=== PATIENT | female | born 1985 | race Caucasian/White ===

== ENCOUNTER 2022-04-25 19:14 | Emergency (ER) | payer BC, SELFPAY ==
[2022-04-25] VITALS (8 sets, daily range): BP systolic 75–100; BP diastolic 60–68; PULSE 114–137; RESP 20; TEMP 37.8–38.3; O2SAT 95–99; BMI 24.9
[2022-04-25 20:45] LABS: PCR FLU A Negative PCR FLU A (Negative); PCR FLU B Negative PCR FLU B (Negative); PCR RSV Negative PCR RSV (Negative)
[2022-04-25 20:53] LABS: SARS PCR* Negative SARS-CoV-2 (Negative)
[2022-04-25 21:15] LABS: Appearance Urine Slightly Cloudy (Clear); Bilirubin Urine Negative (Negative); Blood Urine Trace-intact (Negative); Color Urine Yellow (Yellow); Glucose Urine Negative (Negative); Ketones Urine Trace (Negative); Leukocyte Esterase Urine 1+ (Negative); Nitrite Urine Positive (Negative); Protein Urine 2+ (Negative); Specific Gravity Urine 1.025 (1.000-1.030); Urobilinogen Urine 0.2 (0.2-1.0)
[2022-04-25 21:25] LABS: Bacteria Urine Many; RBC Urine 0-2 (0-2); Squamous Epithelial Cell Urine Few (None-Few); WBC Urine >100 (0-5)
--- NOTE | 2022-04-25 21:34 | CRLHL7_ITS ---
For Patients: As a result of the Century Cures Act, medical imaging exams and procedure reports are released immediately into your electronic medical record. You may view this report before your referring provider. If you have questions, please contact your health care provider. INDICATION: Sepsis, right flank pain. TECHNIQUE: CT abdomen and pelvis without contrast. COMPARISON: None. FINDINGS: Lower chest: Unremarkable. Liver: Normal in size and attenuation. No suspicious masses. Gallbladder and bile ducts: No stones or inflammation. No biliary dilatation. Pancreas: Unremarkable. No mass or inflammation. Spleen: Normal in size. No masses. Adrenal glands: Normal in size. No nodules. Kidneys: 9 millimeter right renal stone with chronic appearing patulous dilation of the superior and interpolar calices with cortical thinning. Addition 3 millimeter left superior pole nonobstructing stone. GI tract: Unremarkable. Normal in caliber. No sign of mass or inflammation. Normal appendix. Vasculature: Abdominal aorta is normal in caliber. Lymph nodes: No lymphadenopathy. Peritoneum/Abdominal Wall: Unremarkable. No sign of mass or infiltration. No free air or significant free fluid. Pelvis: Incidental 4.6 centimeter right ovarian cyst Bones: Unremarkable for age. IMPRESSION: Re-demonstration of patulous right superior and interpolar calices secondary to prior obstructing staghorn calculus. Lack of prior image does not allow for assessment of interval change. 3 millimeter left superior pole nonobstructing stone. Incidental 4.6 centimeter right ovarian cyst, not unexpected given age. No acute intra-abdominal/pelvic abnormality. Please note that all CT scans at this facility use dose modulation, iterative reconstruction, and/or weight-based dosing when appropriate to reduce radiation dose to as low as reasonably achievable. Dictated by Robby Scott MD @ 04/25/2022 11:32:01 PM (Electronically Signed)
--- NOTE | 2022-04-25 21:37 | ED_ITS ---
HPI - General Adult General Chief complaint: Headache/Migraine Stated complaint: Flu like symptoms Time Seen by Provider: 04/25/22 21:20 Source: patient and family Mode of arrival: ambulatory Limitations: no limitations History of Present Illness HPI narrative: 36-year-old female presents emergency department with feeling generally unwell for the past 3 days. Body aches, headache, no trauma nor injury. She tried taking Tylenol and 650 mg and ibuprofen 400 mg approximately 9 hours ago with no improvement in symptoms. She is also noticing sweats and chills and possibly rigors per her description. On specific questioning, she has not noted any urinary changes. No dysuria, no blood in her urine. No gynecological symptoms. On specific questioning, she does state that she has a little bit of right back pain which is different than usual for her as compared to the left. She has an extremely notable history of large right-sided kidney stones that caused significant damage. Per the description it sounds like she had stents and eventually nest tubes placed for severe hydronephrosis and was told that she has some damage as a result of this. She does not have restriction on meds or NSAIDs per her description but it does not sound like she has been following up with a software development coordinator or urologist since this episode a couple of years ago. It does sound like they started her on hydrochlorothiazide to help reduce her chance of further stones that does not sound like this is being monitored recently. She did note fever starting today. No trauma, no injury. No pertinent travel. No known sick contacts. Headache is most bothersome symptom at this time. She notes decreased fluid intake as well. Past medical history notable for the large kidney stones with subsequent management as described above. Surgically in addition to the right kidney surgery, never tubes and stents, she has also had an appendectomy, bilateral tubal ligation and abdominal plasty. Home medications include propranolol, Zoloft, hydrochlorothiazide. Allergies are to Benadryl which caused a racing heart and amoxicillin which caused a rash. ROS is notable for the generalized, musculoskeletal, neurological symptoms as above, otherwise denies times 12 systems. Related Data Home Medications Medication Instructions Recorded Confirmed Kidney medication 04/25/22 acetaminophen 325 mg tablet 325 mg PO Q4-6H PRN 04/25/22 04/25/22 (Tylenol) ibuprofen 200 mg tablet (Advil) 200 mg PO Q4-6H PRN 04/25/22 04/25/22 propranolol 80 mg capsule,24 80 mg PO DAILY 04/25/22 04/25/22 hr,extended release sertraline 100 mg tablet 100 mg PO Q24H 04/25/22 04/25/22 Previous Rx's Medication Instructions Recorded cephalexin 500 mg capsule 500 mg PO TID 10 days #30 caps 04/26/22 Allergies Allergy/AdvReac Type Severity Reaction Status Date / Time diphenhydramine Allergy Severe Anaphylaxis Verified 04/25/22 20:08 [From Benadryl] amoxicillin Allergy Mild Rash Verified 04/25/22 20:08 [facility] Medical History Iron deficiency anemia Kidney infection Kidney stones Surgical History H/O bilateral salpingo-oophorectomy Hx of appendectomy Social History Smoking Status: Unknown if ever smoked Exam Const: Vital Signs, click to edit/add: Vital Signs - 24 hr 04/25/22 19:41 04/25/22 22:07 04/25/22 22:30 Temperature 100.9 F H Pulse Rate 137 H 124 H Pulse Rate [Left P ulse Oximeter] 133 H Respiratory Rate 20 Blood Pressure Blood Pressure [Ri ght Upper Arm] 100/68 Pulse Oximetry 99 97 96 Oxygen Delivery Me thod Room Air 04/25/22 22:31 04/25/22 23:25 04/25/22 23:27 Temperature 100.0 F H Pulse Rate 124 H 121 H 121 H Pulse Rate [Left P ulse Oximeter] Respiratory Rate Blood Pressure 92/60 98/60 Blood Pressure [Ri ght Upper Arm] Pulse Oximetry 95 97 98 Oxygen Delivery Me thod 04/26/22 00:54 04/25/22 23:56 04/25/22 23:57 Temperature 100.1 F H Pulse Rate 119 H 114 H Pulse Rate [Left P ulse Oximeter] 114 H Respiratory Rate 18 Blood Pressure 75/61 L Blood Pressure [Ri ght Upper Arm] 123/68 Pulse Oximetry 97 97 97 Oxygen Delivery Me thod Room Air 04/26/22 00:00 04/26/22 00:01 04/26/22 00:02 Temperature Pulse Rate 118 H 118 H 121 H Pulse Rate [Left P ulse Oximeter] Respiratory Rate Blood Pressure 101/59 L 94/60 Blood Pressure [Ri ght Upper Arm] Pulse Oximetry 98 97 97 Oxygen Delivery Me thod 04/26/22 00:15 04/26/22 00:30 04/26/22 00:31 Temperature Pulse Rate 113 H 107 H 104 H Pulse Rate [Left P ulse Oximeter] Respiratory Rate Blood Pressure 83/55 L Blood Pressure [Ri ght Upper Arm] Pulse Oximetry 97 98 97 Oxygen Delivery Me thod 04/26/22 00:35 04/26/22 00:36 04/26/22 00:59 Temperature Pulse Rate 110 H 109 H 106 H Pulse Rate [Left P ulse Oximeter] Respiratory Rate Blood Pressure 87/56 L Blood Pressure [Ri ght Upper Arm] Pulse Oximetry 98 98 97 Oxygen Delivery Me thod 04/26/22 01:00 04/26/22 01:01 04/26/22 01:40 Temperature Pulse Rate 107 H 109 H Pulse Rate [Left P ulse Oximeter] 99 Respiratory Rate 16 Blood Pressure 99/64 Blood Pressure [Ri ght Upper Arm] 101/55 L Pulse Oximetry 97 97 97 Oxygen Delivery Me thod Room Air 04/26/22 01:17 04/26/22 01:32 Temperature Pulse Rate 100 99 Pulse Rate [Left P ulse Oximeter] Respiratory Rate Blood Pressure 92/58 L 98/57 L Blood Pressure [Ri ght Upper Arm] Pulse Oximetry 96 96 Oxygen Delivery Me thod Documenting provider has reviewed patient's vital signs: yes General appearance: cooperative and well kempt Other: Appears acutely ill, good historian HENMT: Common normals: normocephalic Head and scalp: normocephalic Mouth: oral and palatal mucosa normal Throat: posterior oropharynx normal Eye: Common normals: conjunctivae normal and no scleral icterus Conjunctiva: conjunctiva(e) normal Neck & C-Spine: Common normals: full ROM, no lymphadenopathy and no meningeal signs Resp: Common normals: normal respiratory effort, no use of accessory muscles and clear to auscultation bilaterally Effort & inspection: able to speak in complete sentences Auscultation: clear to auscultation bilaterally Cardio: Common normals: regular rate, regular rhythm, S1 normal heart sound, S2 normal heart sound, no murmurs and peripheral pulses 2+ throughout Rate: regular rate Rhythm: regular rhythm Heart sounds: S1 normal and S2 normal Peripheral pulses: pulses 2+ throughout GI: Common normals: Normal to inspection, nondistended, normoactive bowel sounds present, soft to palpation, non-tender, no hepatosplenomegaly and no masses Palpation: soft and no hepatosplenomegaly Back & Pelvis: Common normals: thoracic and lumbar spine normal to inspection Other: Right-sided CVA tenderness noted Extremity: Common normals: normal to inspection, normal capillary refill and no pedal edema Neuro: Meningeal signs: no meningeal signs Speech: speech normal Motor exam: strength 5/5 throughout and no tremor noted Psych: Appearance: well kempt Attitude: engaged Insight: insight good Judgement: judgment good Skin: Common normals: no rashes or lesions noted General skin exam: no rashes or lesions noted Course Vital Signs Vital signs: Initial Vital Signs Temperature 100.9 F H 04/25/22 19:41 Temperature Source Temporal Artery Scan 04/25/22 19:41 Pulse Rate 133 H 04/25/22 19:41 Respiratory Rate 20 04/25/22 19:41 Blood Pressure 100/68 04/25/22 19:41 Blood Pressure Mean 78 04/25/22 19:41 Blood Pressure Position Sitting 04/25/22 19:41 Pulse Oximetry 99 04/25/22 19:41 Oxygen Delivery Method 04/25/22 19:41 Vital Signs Temperature 100.9 F H 04/25/22 19:41 Pulse Rate 133 H 04/25/22 19:41 Respiratory Rate 20 04/25/22 19:41 Blood Pressure 100/68 04/25/22 19:41 Pulse Oximetry 99 04/25/22 19:41 Oxygen Delivery Method 04/25/22 19:41 Temperature 100.1 F H 04/26/22 00:54 Pulse Rate 99 04/26/22 01:40 Respiratory Rate 16 04/26/22 01:40 Blood Pressure 101/55 L 04/26/22 01:40 Pulse Oximetry 97 04/26/22 01:40 Oxygen Delivery Method 04/26/22 01:40 Medical Decision Making MDM Narrative Medical decision making narrative: Fever, tachycardia, borderline low blood pressures concerning for sepsis. High risk for pyelonephritis. UA suspicious. Counseled patient on findings. Laboratory studies recommended, will start IV Rocephin, give Toradol for pain and IV fluids. CT scan ordered. May need hospitalization. Update: Labs show normal lactate which is reassuring. Patient febrile with tachycardia, borderline blood pressures still suspicious for sepsis. Somewhat improving from fluids, will give another L fluids. Replace potassium. Some improvement with the Toradol, will treat with oxycodone now. Has received Rocephin. Will need additional antibiotic treatment. We do not have any hospital beds at this time and I did discuss this with her. She is reliable for outpatient followup and management if we can get her blood pressure improved. Update 0145: There is a now consistently running 100 systolic and pulse has improved to under 100 with fluids. Normal lactate noted. Labs reviewed with patient. CT findings reviewed with family. I do have significant clinical concern but at this point she is not interested in hospitalization at remote location and understands that we do not have beds available. The fluids have gone well and she received her 1st dose of IV antibiotics and there is unlikely much else we would do at this time in the hospital since it does not appear as though she needs pressors. Discussed my significant clinical concerns with patient and her significant other. They verbalized understanding. If she shows any further signs of clinical decline or is not improving in 24 hours, come back to the emergency department. Did not have significant improvement in her pain on oral oxycodone, I do not think she will benefit from this at home since it was not successful here in the ED. Lab Data Lab results reviewed: Yes I reviewed the patient's lab results Labs: Lab Results 04/25/22 04/25/22 04/25/22 Range/Units 19:40 21:10 21:35 WBC 13.02 H (4.50-11.00) K/uL RBC 4.80 (4.00-5.20) m/uL Hgb 13.9 (12.0-16.0) gm/dL Hct 41.6 (33.0-51.0) % MCV 87 (80-100) fL MCH 29 (26-34) pg MCHC 33 (32-36) gm/dL RDW Coeff of Jayson 13.7 (11.5-15.5) % Plt Count 192 (140-440) K/uL Neut % (Auto) 77.7 H (42.0-72.0) % Lymph % (Auto) 11.0 L (20-44) % Power % (Auto) 10.6 (0.0-11.0) % Eos % (Auto) 0.4 (0.0-7.0) % Baso % (Auto) 0.2 (0.0-3.0) % Neut # (Auto) 10.10 H (1.7-7.0) K/uL Lymph # (Auto) 1.40 (0.90-2.90) K/uL Power # (Auto) 1.40 H (0.00-0.90) K/UL Eos # (Auto) 0.10 (0.00-0.50) K/uL Baso # (Auto) 0.00 (0.00-0.30) K/uL Abs Immat Gran (auto) 0.00 (0.00-0.30) K/uL Imm/Tot Granulo (auto) 0.1 % Sodium (135-149) mmol/L Potassium (3.6-5.1) mmol/L Chloride (96-114) mmol/L Carbon Dioxide (20-32) mmol/L BUN (5-24) mg/dL Creatinine (0.5-1.5) mg/dL Estimated Creat Clear Estimated GFR ml/min Glucose (60-115) mg/dL Lactate (0.5-1.9) mmol/L Calcium (8.4-10.6) mg/dL Total Bilirubin (0.1-1.5) mg/dL AST (12-35) U/L ALT (4-35) U/L Alkaline Phosphatase (40-150) U/L C-Reactive Protein (0.5-1.0) mg/dL Total Protein (6.0-8.3) g/dL Albumin (3.3-5.0) g/dL Procalcitonin (<0.50) ng/mL Urine Color Yellow (Yellow) Urine Appearance Slightly Cloudy A (Clear) Urine pH 6.0 (5.0-8.5) Ur Specific [place] 1.025 (1.000-1.030) Urine Protein 2+ A (Negative) Urine Glucose (UA) Negative (Negative) Urine Ketones Trace A (Negative) Urine Blood Trace-intact A (Negative) Urine Nitrite Positive A (Negative) Urine Bilirubin Negative (Negative) Urine Urobilinogen 0.2 (0.2-1.0) Ur Leukocyte Esterase 1+ A (Negative) Urine RBC 0-2 (0-2) Urine WBC >100 A (0-5) Ur Squamous Epith Cells Few (None-Few) Urine Bacteria Many A (None) SARS-CoV-2 (PCR) Negative SARS-CoV-2 (Negative) Influenza Type A (PCR) Negative PCR FLU A (Negative) Influenza Type B (PCR) Negative PCR FLU B (Negative) RSV (PCR) Negative PCR RSV (Negative) 04/25/22 04/25/22 Range/Units 21:35 21:35 WBC (4.50-11.00) K/uL RBC (4.00-5.20) m/uL Hgb (12.0-16.0) gm/dL Hct (33.0-51.0) % MCV (80-100) fL MCH (26-34) pg MCHC (32-36) gm/dL RDW Coeff of Jayson (11.5-15.5) % Plt Count (140-440) K/uL Neut % (Auto) (42.0-72.0) % Lymph % (Auto) (20-44) % Power % (Auto) (0.0-11.0) % Eos % (Auto) (0.0-7.0) % Baso % (Auto) (0.0-3.0) % Neut # (Auto) (1.7-7.0) K/uL Lymph # (Auto) (0.90-2.90) K/uL Power # (Auto) (0.00-0.90) K/UL Eos # (Auto) (0.00-0.50) K/uL Baso # (Auto) (0.00-0.30) K/uL Abs Immat Gran (auto) (0.00-0.30) K/uL Imm/Tot Granulo (auto) % Sodium 136 (135-149) mmol/L Potassium 3.0 L (3.6-5.1) mmol/L Chloride 100 (96-114) mmol/L Carbon Dioxide 26 (20-32) mmol/L BUN 16 (5-24) mg/dL Creatinine 0.9 (0.5-1.5) mg/dL Estimated Creat Clear 87.17 Estimated GFR 85 ml/min Glucose 101 (60-115) mg/dL Lactate 1.2 (0.5-1.9) mmol/L Calcium 9.6 (8.4-10.6) mg/dL Total Bilirubin 0.5 (0.1-1.5) mg/dL AST 26 (12-35) U/L ALT 24 (4-35) U/L Alkaline Phosphatase 87 (40-150) U/L C-Reactive Protein 7.7 H (0.5-1.0) mg/dL Total Protein 8.3 (6.0-8.3) g/dL Albumin 4.6 (3.3-5.0) g/dL Procalcitonin 0.07 (<0.50) ng/mL Urine Color (Yellow) Urine Appearance (Clear) Urine pH (5.0-8.5) Ur Specific [place] (1.000-1.030) Urine Protein (Negative) Urine Glucose (UA) (Negative) Urine Ketones (Negative) Urine Blood (Negative) Urine Nitrite (Negative) Urine Bilirubin (Negative) Urine Urobilinogen (0.2-1.0) Ur Leukocyte Esterase (Negative) Urine RBC (0-2) Urine WBC (0-5) Ur Squamous Epith Cells (None-Few) Urine Bacteria (None) SARS-CoV-2 (PCR) (Negative) Influenza Type A (PCR) (Negative) Influenza Type B (PCR) (Negative) RSV (PCR) (Negative) Imaging Data CT scan - abdomen: My impression: Chronic appearing renal abnormalities, stone that is not seem obstructing. No obvious over enhancement that would be a think pyelonephritis. Radiologist's impression: IMPRESSION: Re-demonstration of patulous right superior and interpolar calices secondary to prior obstructing staghorn calculus. Lack of prior image does not allow for assessment of interval change. 3 millimeter left superior pole nonobstructing stone. Incidental 4.6 centimeter right ovarian cyst, not unexpected given age. No acute intra-abdominal/pelvic abnormality. Discharge Plan Discharge Clinical Impression: Pyelonephritis Patient Disposition: Home w/ Parent or Adult Condition: Stable Instructions: Kidney Infection (ED) Additional Instructions: As we discussed, I am quite concerned about your clinical status but we do not have any hospital beds here or in the surrounding region at the moment. Your given a dose of IV antibiotics that will stay in your system for 24 hours and work to fight the infection. 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 I do intend for overlap. Take your antibiotics 3 times daily. Continue use of Tylenol and/or ibuprofen as needed for fever, headache and body aches. This should improve as the infection improves in the next couple of days. Continue to push fluids. Come back to the emergency department if you are feeling very weak, you clinically worsen or there are additional concerns. Follow up with her primary care provider in 2 days to check on the culture report of your urine and make sure that antibiotic treatment will be sufficient. Because of your history, it would be a good idea to recheck your kidney function at that visit. Activity Level: Activity as Tolerated Discharge Diet: Regular Prescriptions: New cephalexin 500 mg capsule 500 mg PO TID 10 Days Qty: 30 0RF No Action sertraline 100 mg tablet 100 mg PO Q24H acetaminophen [Tylenol] 325 mg tablet 325 mg PO Q4-6H PRN ibuprofen [Advil] 200 mg tablet 200 mg PO Q4-6H PRN propranolol 80 mg capsule,extended release 24hr 80 mg PO DAILY Kidney medication Follow Up/Referrals: Provider,Not a Local [Primary Care Provider] - Stand Alone Forms: [employer] Info Instructions
[2022-04-25 21:45] LABS: Lactate* 1.2 mmol/L (0.5-1.9)
[2022-04-25 21:47] LABS: Basophils Percent Auto 0.2 % (0.0-3.0); Eosinophils Percent Auto 0.4 % (0.0-7.0); Hematocrit 41.6 % (33.0-51.0); Hemoglobin* 13.9 gm/dL (12.0-16.0); Immature Granulocytes Pct Auto 0.1 %; Mean Corpuscular HGB Conc 33 gm/dL (32-36); Mean Corpuscular Hemoglobin 29 pg (26-34); Mean Corpuscular Volume 87 fL (80-100); Monocytes Percent Auto 10.6 % (0.0-11.0); Neutrophils Percent Auto 77.7 % (42.0-72.0); Platelet Count* 192 K/uL (140-440); RDW Coefficient of Variation % 13.7 % (11.5-15.5); White Blood Count* 13.02 K/uL (4.50-11.00)
[2022-04-25 21:48] LABS: Slide Review Reflex No
[2022-04-25] MEDS: 0.9 % SODIUM CHLORIDE 1000 ml 1,000 ML IV (21:51)
[2022-04-25] MEDS: KETOROLAC 15 MG/ML inj IVP (21:51)
[2022-04-25 22:03] LABS: Albumin* 4.6 g/dL (3.3-5.0); Chloride* 100 mmol/L (96-114); Sodium* 136 mmol/L (135-149)
[2022-04-25 22:05] LABS: Bilirubin Total* 0.5 mg/dL (0.1-1.5); Creatinine* 0.9 mg/dL (0.5-1.5); Est. Creatinine Clearance* 87.17; Estimated Glomerular Filt Rate 85 ml/min
[2022-04-25 22:06] LABS: Alanine Aminotransferase* 24 U/L (4-35); Alkaline Phosphatase* 87 U/L (40-150); Aspartate Amino Transferase* 26 U/L (12-35); Blood Urea Nitrogen* 16 mg/dL (5-24); Carbon Dioxide* 26 mmol/L (20-32); Glucose* 101 mg/dL (60-115); Total Protein* 8.3 g/dL (6.0-8.3)
[2022-04-25 22:07] LABS: Calcium* 9.6 mg/dL (8.4-10.6)
[2022-04-25 22:09] LABS: C Reactive Protein* 7.7 mg/dL (0.5-1.0)
[2022-04-25 22:23] LABS: Procalcitonin* 0.07 ng/mL (<0.50)
--- OUTSIDE RECORDS SUMMARY | 2022-04-25 22:23 | XMS_ITS | Encounter Summary ---
:1985 Author Organization [place] Address [address] [place] [id number] Care Team Providers Name Role Phone Delia Mcdonald MD Primary Care Provider [phone] Encounter Details Date Type Department Care Team Description 12/17/2019 Travel Social History Tobacco Use Types Packs/Day Years Used Date Smoking Tobacco: Never Smokeless Tobacco: Never Alcohol Use Standard Drinks/Week Comments Yes 0 (1 standard drink = 0.6 oz pure alcoho l) casual Sex Assigned at Date Recorded Not on file COVID-19 Exposure Response Date Recorded In the last month, have you been in contact with No / Unsure 12/17/2019 9:49 AM CDT someone who was confirmed or suspected to have Coronavirus / COVID-19? 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
--- OUTSIDE RECORDS SUMMARY | 2022-04-25 22:23 | XMS_ITS | Encounter Summary ---
:1985 Author Organization [place] Address [address] [place] [id number] Care Team Providers Name Role Phone Delia Mcdonald MD Primary Care Provider [phone] Reason for Visit Reason Comments Vaginal Bleeding Abdominal Pain Encounter Details Date Type Department Care Team Description 10/13/2019 Emergency [facility] Jose Mccormack L eft ovarian cyst; [facility] Emergency Dep t Menorrhagia with regular cycle [address] [facility] [place], [place] [id number] [phone] [place], [place] [phone] (Wo rk) Social History Tobacco Use Types Packs/Day Years Used Date Smoking Tobacco: Never Smokeless Tobacco: Never Alcohol Use Standard Drinks/Week Comments Yes 0 (1 standard drink = 0.6 oz pure alcoho l) casual Sex Assigned at Date Recorded Not on file COVID-19 Exposure Response Date Recorded In the last month, have you been in contact with No / Unsure 10/13/2019 1:44 PM CDT someone who was confirmed or suspected to have Coronavirus / COVID-19? documented as of this encounter Last Filed Vital Signs Vital Sign Reading Time Taken Comments Blood Pressure 119/90 10/13/2019 1:45 PM CDT Pulse - - Temperature 36.6 ??C (97.9 ??F) 10/13/2019 1:45 PM CDT Respiratory Rate 16 10/13/2019 4:19 PM CDT Oxygen Saturation 98% 10/13/2019 3:45 PM CDT Inhaled Oxygen Concentration - - Weight - - Height - - Body Mass Index - - documented in this encounter Discharge Instructions Discharge InstructionsJose Mccormack MD - 10/13/2019 4:12 PM CDT Please follow-up with your [employer] physician in the next 7 to 10 days. Discharge Instructions Ovarian Cyst Abdominal (belly) pain can be caused by many things. Your provider today has found that you have a cyst on the ovary. Women in their reproductive years form cysts every month, but only cause pain if they are very large, or if they rupture and release blood or fluid. Fortunately, they rarely require surgery or hospitalization. The pain from a ruptured cyst usually gets gradually better, and should be much better within a few days. If there is a large cyst, it will usually go away within 1-2 months, but needs to be watched to be sure it does go away, since sometimes a large cyst can become a cancer. There can be complications of a cyst, or other problems that cannot be found right away, so it is very important that you follow up as directed. Generally, every Emergency Department visit should have a follow-up clinic visit with either a primary or a specialty clinic/provider. Please follow-up as instructed by your emergency provider today. Return to the Emergency Department right away if: Your pain becomes much worse or constant You get an oral temperature above 100.4??F or as directed by your provider. You have frequent vomiting You faint, or feel very weak. You have new symptoms or anything that worries you. What can I do to help myself? Take any medication prescribed by your provider. You may use Tylenol?? (acetaminophen) or Advil??, Motrin?? (ibuprofen) for pain. Be sure to read andfollow the package directions, and ask your provider if you have questions. Avoid sex for several days, because it will probably be painful. If you were given a prescription for medicine here today, be sure to read all of the information (including the package insert) that comes with your prescription. This will include important information about the medicine, its side effects, and any warnings that you need to know about. The pharmacist who fills the prescription can provide more information and answer questions you may have about the medicine. If you have questions or concerns that the pharmacist cannot address, please call or return to the Emergency Department. Remember that you can always come back to the Emergency Department if you are not able to see your regular provider in the amount of time listed above, if you get any new symptoms, or if there is anything that worries you. documented in this encounter Medications at Time of Discharge Medication Sig Dispensed Refills Start Date End Date levonorgestrel-ethinyl Take 1 tablet by 3 Package 2 014 estradiol mouth daily (AVIANE,ALESSE,LESSINA) 0.1-20 MG-MCG per tabletIndications: Contraception HYDROcodone-acetaminophen Take 1 tablet by 8 tablet 0 09/2110/16/2019 (NORCO) 5-325 MG tablet mouth every 6 hours as needed for severe pain documented as of this encounter ED Notes Loni Nash - 10/13/2019 1:45 PM CDT Patient presents with 2 days of vaginal bleeding, heavy this afternoon. LMP 1 month ago. Lower abdominal pain. ABCDS Intact, alert and oriented x 4. Jose Mccormack MD - 10/13/2019 1:44 PM CDT History Chief Complaint: Vaginal Bleeding and Abdominal Pain HPI Estefania Mckeon is a 34 year old female who presents with vaginal bleeding and abdominal pain. Thepatient started her period 2 days ago and had an episode of heavy vaginal bleeding today. She also reports having an severe stabbing left lower quadrant abdominal pain earlier today which has stayed constant. She states that nothing makes the abdominal pain better or worse and has soaked through 2 tampons. She took Advil for her pain with minimal improvement and called her doctor who told her to comeinto the ER. She denies any vaginal discharge, nausea, vomiting, dysuria, or urinary frequency. Allergies: Nitrofurantoin Benadryl [Altaryl] Amoxicillin Medications: levonorgestrel-ethinyl estradiol Propranolol Past Medical History: Calculus of kidney Iron (Fe) deficiency anemia Hypertension Past Surgical History: Appendectomy Kidney stone removal EDG Family History: Diabetes Hypertension Lipids Social History: Smoking Status: Never Smoker Smokeless Tobacco: Never Used Alcohol Use: Yes Drug Use: No PCP: Janis Cuellar Review of Systems Gastrointestinal: Positive for abdominal pain (LLQ). Negative for nausea and vomiting. Genitourinary: Positive for vaginal bleeding. Negative for dysuria and frequency. All other systems reviewed and are negative. Physical Exam Patient Vitals for the past 24 hrs: BP Temp Temp src Heart Rate Resp SpO2 10/13/19 1545 -- -- -- -- -- 98 % 10/13/19 1345 (!) 119/90 97.9 ??F (36.6 ??C) Oral 74 16 99 % Physical Exam Constitutional: Pleasant, age appropriate female Eyes: Conjunctiva normal Neck: Supple, no meningismus. CV: Regular rate and rhythm. No murmurs, rubs or gallops. No lower extremity edema. PULM: Clear to auscultation bilateral. No respiratory distress. Good air exchange. ABD: Soft, non-distended. Moderate tenderness in the LLQ. No pulsatile masses. No rebound, guarding or rigidity. No CVA tenderness. : Normal external genitalia. No perineal lesions. Mild amount of dark blood in the in the vaginal vault. No vaginal discharge. No cervical motion tenderness. Left adnexal tenderness. MSK: No gross deformity to all four extremities. LYMPH: No cervical lymphadenopathy. NEURO: Alert. Good muscular tone, no atrophy. Skin: Warm, dry and intact. Psych: Mood is good and affect is appropriate. Emergency Department Course Imaging: Radiology findings were communicated with the patient who voiced understanding of the findings. US Pelvic, Complete w Transvaginal & Abd/Pel Duplex Limited: No torsion demonstrated, as per radiology. Laboratory: Laboratory findings were communicated with the patient who voiced understanding of the findings. ISTAT HCG quantitative POCT: <5.0 CBC: WBC 11.2 (H), HGB 13.4, PLT 219, o/w WNL Interventions: 1542 Dilaudid 0.5 mg IV Emergency Department Course: Past medical records, nursing notes, and vitals reviewed. 1351 I performed an exam of the patient as documented above. IV was inserted and blood was drawn for laboratory testing, results above. The patient was sent for imaging while in the emergency department, results above. 1555 Patient rechecked and updated. Findings and plan explained to the Patient. Patient discharged home with instructions regarding supportive care, medications, and reasons to return. The importance of close follow-up was reviewed. Thepatient was prescribed [place] Impression & Plan Medical Decision Making: Estefania Mckeon is a 34 year old female who presents to the emergency department today with left lower quadrant abdominal pain and menorrhagia. She appears well on exam. Pelvic exam reveals no signs of vaginitis, cervicitis or PID. The volume of bleeding is quite low. Hemoglobin is within normal limits and hemodynamics are reassuring. Pelvic ultrasound reveals a 2.5 cm left ovarian cyst without signs of ovarian torsion. This is the likely source of her symptoms. She has no historical features to draw increased concern for urinary tract infection, renal colic, diverticulitis. I do not feel that further advanced imaging with CT scan is necessary. Patient safe for discharge home with supportive measures and close follow-up with gynecology. Return to the ED for any worsening symptoms. Discharge Diagnosis: No diagnosis found. Disposition: Discharged to home. Discharge Medications: New Prescriptions No medications on file Scribe Disclosure: Kwame Tolbert, am serving as a scribe at 1:51 PM on 10/13/2019 to document services personally performed by Jose Mccormack MD based on my observations and the provider's statements to me. 10/13/2019 Jose Mccormack MD Matthews, Jeremiah R, MD 10/14/19 0714 documented in this encounter Plan of Treatment Not on filedocumented as of this encounter Procedures Procedure Name Priority Date/Time Associated Comments Diagnosis US PELVIS COMPLETE W STAT 10/13/2019 3:52 PM R esults for this TRANSVAGINAL AND CDT procedure a re in DOPPLER LIMITED the results section. ISTAT HCG Routine 10/13/2019 2:03 PM Results f or this QUANTITATIVE CDT procedure are i n POCT the results section. CBC WITH PLATELETS STAT 10/13/2019 1:54 PM Res ults for this CDT procedure are i n the results section. documented in this encounter Results US Pelvic Complete w Transvaginal & Abd/Pel Duplex Limited (10/13/2019 3:52 PM CDT) Anatomical Region Laterality Modality Abdomen/Pelvis Ultrasound Specimen (Source) Anatomical Location Collection Method / Collectio n Time Received Time / Laterality Volume Impressions 10/13/2019 5:06 PM CDT IMPRESSION: No torsion demonstrated. CRISTEL JOYCE MD Narrative 10/13/2019 5:06 PM CDT ULTRASOUND PELVIS DOPPLER ?? WITH TRANSVAGINAL IMAGING October 13, 2019 3:52 PM HISTORY: Left lower quadrant pain. COMPARISON: August 17, 2011. TECHNIQUE: Endovaginal sonography was ad ded to the transabdominal scans. Grayscale, color Doppler, and Dop pler spectral waveform analysis performed. FINDINGS: No fibroids are evident. The u terus is 8.3 x 4.8 x 6.8 cm and may be arcuate in configuration. End ometrial stripe measures 13 mm and is normal for patient's age and mens trual status. The right ovary is normal. The left ovary demonstrates a small dominant follicle or functional ovarian cyst. Doppler spectra l waveform analysis demonstrates blood flow to both ovaries. No adnexal masses are present. Trace free pelvic fluid is pres ent. Procedure Note Cristel Joyce MD - 10/13/2019Fo rmatting of this note might be different from the original. ULTRASOUND PELVIS DOPPLER WITH TRANSVAGI NAL IMAGING October 13, 2019 3:52 PM HISTORY: Left lower quadrant pain. COMPARISON: August 17, 2011. TECHNIQUE: Endovaginal sonography was ad ded to the transabdominal scans. Grayscale, color Doppler, and Dop pler spectral waveform analysis performed. FINDINGS: No fibroids are evident. The u terus is 8.3 x 4.8 x 6.8 cm and may be arcuate in configuration. End ometrial stripe measures 13 mm and is normal for patient's age and mens trual status. The right ovary is normal. The left ovary demonstrates a small dominant follicle or functional ovarian cyst. Doppler spectra l waveform analysis demonstrates blood flow to both ovaries. No adnexal masses are present. Trace free pelvic fluid is pres ent. IMPRESSION: No torsion demonstrated. CRISTEL JOYCE MD Jose Mccormack MD IM US ORDERABLES ISTAT HCG Quantitative POCT (10/13/2019 2:03 PM CDT) P athologist Signature HCG Quantitative <5.0 <5.0 IU/L 10/13/2019 POINT OF CAR E Serum 2:14 PM CDT TEST, HANDHELD METER Specimen Anatomical Collection Method Collection Time Receive d Time (Source) Location / / Volume Laterality 10/13/2019 2:03 PM 0 2:14 CDT PM CDT Jose Mccormack MD LAB - BEAKER POCT Performing Organization Address City/State/ZIP Code Phon e Number [facility] POINT OF CARE TEST, HANDHELD METER POINT OF CARE TEST, HANDHELD METER (ABNORMAL) CBC (platelets, no diff) (10/13/2019 1:54 PM CDT) Analysis Performed At Patho logist Time Signature WBC 11.2 (H) 4.0 - 11.0 10/13/2019 [facility] 10e9/L 2:23 PM [facility] RBC Count 4.58 3.8 - 5.2 10/13/2019 [facility] 10e12/L 2:23 PM [facility] Hemoglobin 13.4 11.7 - 10/13/2019 [facility] 15.7 g/dL 2:23 PM [facility] Hematocrit 42.4 35.0 - 10/13/2019 [facility] 47.0 % 2:23 PM [facility] MCV 93 78 - 100 10/13/2019 [facility] fl 2:23 PM [facility] MCH 29.3 26.5 - 10/13/2019 [facility] 33.0 pg 2:23 PM [facility] MCHC 31.6 31.5 - 10/13/2019 [facility] 36.5 g/dL 2:23 PM [facility] RDW 13.6 10.0 - 10/13/2019 [facility] 15.0 % 2:23 PM [facility] Platelet Count 219 150 - 450 10/13/2019 [facility] 10e9/L 2:23 PM [facility] Specimen Anatomical Collection Method Collection Time Receive d Time (Source) Location / / Volume Laterality Blood specimen 10/13/2019 1:54 PM 020 2:20 (specimen) CDT PM CDT Jose Mccormack MD LAB - BLOOD ORDERABLES Performing Organization Address City/State/ZIP Code Phon e Number M [facility] [address] [place], [place] [address] [facility] [address] [place], [place] [address] [phone] documented in this encounter Visit Diagnoses Diagnosis Left ovarian cyst Other and unspecified ovarian cyst Menorrhagia with regular cycle Excessive or frequent menstruation documented in this encounter Administered Medications Inactive Administered Medications - up to 3 most recent administrations Medication Order MAR Action Action Date Dose Rate Site HYDROmorphone (PF) (DILAUDID) Given 10/13/2019 3:42 PM CDT 0.5 m g injection 0.5 mg 0.5 mg, Intravenous, ONCE, On 10/13/19 at 1519, For 1 dose, For ordered IV doses 0.1-4 mg give IV Push undiluted. Administer each 2mg over 2-5 minutes. documented in this encounter Active and Recently Administered Medications Times are shown in CDT. Scheduled Medication Order 10/11/2019 10/12/2019 10/13/2019 HYDROmorphone (PF) (DILAUDID) injection 0.5 mg (COMPLETED) 1542 (Given - Provider: Janie Banks RN) 0.5 mg, Intravenous, ONCE, 10/13/19 a t 1519, For 1 dose, For ordered IV doses 0.1-4 mg give IV Push undiluted. Administer each 2mg over 2-5 minutes. documented in this encounter Care Teams [employer] Supervisor Relationship Specialty Start Date End Date Delia Mcdonald MD PCP - General Family Practice 10/13/[address] [place] [id number] documented as of this encounter
--- OUTSIDE RECORDS SUMMARY | 2022-04-25 22:23 | XMS_ITS | Encounter Summary ---
:1985 Author Organization [place] Address [address] [place] [address] Care Team Providers Name Role Phone Delia Mcdonald MD Primary Care Provider [phone] Reason for Visit Reason Comments Abdominal Pain Encounter Details Date Type Department Care Team Description 12/17/2019 Emergency [facility] Danitza Araujo Pelvic pain in female [facility] florida Sánchez PA-C [address] [facility] [place] [phone] [phone] [place], [place] [address] (Wo rk) Social History [...] Sign Reading Time Taken Comments Blood Pressure 113/84 12/17/2019 12:00 PM CDT Pulse 70 12/17/2019 12:00 PM CDT Temperature 36.8 ??C (98.3 ??F) 12/17/2019 9:56 AM CDT Respiratory Rate 14 12/17/2019 12:11 PM CDT Oxygen Saturation 98% 12/17/2019 12:00 PM CDT Inhaled Oxygen Concentration - - Weight - - Height - - Body Mass Index - - documented in this encounter Discharge Instructions Discharge InstructionsDanitza Rivers PA-C - 12/17/2019 12:09 PM CDT *Get plenty of rest and avoid strenuous activities. *Ibuprofen for pain. *Follow-up with your doctor for a recheck within 2-3 days. *Return to the ER if you develop fever, worsening pain, pain that moves to the right lower abdomen, faint or feel like you will faint or become worse in any way. AttachmentsThe following attachments cannot be sent through Care Everywhere. Pelvic Pain, Unknown Cause (Singaporean)documented in this encounter Medications at Time of Discharge Medication Sig Dispensed Refills Start Date End Date levonorgestrel-ethinyl Take 1 tablet by 3 Package 2 014 estradiol mouth daily (AVIANE,ALESSE,LESSINA) 0.1-20 MG-MCG per tabletIndications: Contraception documented as of this encounter ED Notes Ramonita Jauregui RN - 12/17/2019 12:10 PM CDT A/O. VSS. PIV removed. Pt verbalized understanding of d/c instructions and ambulated to [facility]. Peggy Tabor RN - 12/17/2019 9:57 AM CDT Patient presents left lower abdominal pain that started yesterday. History of ovarian cysts per report. Denies n/v/d, bowel problems or urinary issues. Patient currently menstruating. ABC's intact. Danitza Rivers PA-C - 12/17/2019 9:49 AM CDT History Chief Complaint: Abdominal Pain The history is provided by the patient. Estefania Mckeon is a 34 year old female 4 weeks s/p tubal ligation who presents with abdominal pain and nausea. The patient reports that she developed a constant shooting pain that started yesterday in her lower left abdomen. Today when she woke up she was also very nauseous. She had tried taking one of her high-strength ibuprofen that she was given following surgery to help with the pain but did not notice any relief in symptoms. The patient does note that she started getting cysts after the of her last child and has had one before, but she is unable to compare symptoms as she did not notice any pain until after the cyst had already burst. Here, she also mentions that her periods have been weird, noting a week of spotting before a week of heavier period flow, which is unusual for her. The patient denies any abnormal discharge or any concern for STD. She further denies any vomiting, diarrhea, or constipation. She notes that the consistency of her bowel movements are irregular but reports that she is at baseline. She has no other concerns. Allergies: Amoxicillin Nitrofurantoin Benadryl Medications: Levonorgestrel-ethinyl estradiol Sumatriptan Propranolol Sertraline Oxycodone-acetaminophen Past Medical History: Iron deficiency anemia Bicornuate uterus ASCUS on pap smear Recurrent kidney stones Gestational hypertension Premature rupture of membranes Kidney infection Vitamin D deficiency Recurrent UTI Varicella Cysts Past Surgical History: Appendectomy Cystoscopy EGD combined Kidney stone removal [place] teeth extraction Family History: Father: Diabetes, Hypertension, Hyperlipidemia Mother: Hypertension, Hyperlipidemia, Chron's disease, Stroke, Heart disease, Spontaneous abortions Social History: The patient was not accompanied to the ED. Smoking Status: Never smoker Smokeless Tobacco: Never used Alcohol Use: Yes Drug Use: No Marital Status: Single Review of Systems Gastrointestinal: Positive for abdominal pain (LLQ) and nausea. Negative for constipation (at baseline per patient), diarrhea (at baseline per patient) and vomiting. Genitourinary: Positive for menstrual problem (irregular periods per patient). Negative for vaginal discharge. All other systems reviewed and are negative. Physical Exam Patient Vitals for the past 24 hrs: BP Temp Temp src Pulse Resp SpO2 12/17/19 0956 (!) 126/90 98.3 ??F (36.8 ??C) Oral 77 16 98 % Physical Exam General: Alert, interactive. GCS 15 Head: Scalp is atraumatic. Eyes: EOM intact. The pupils are equal, round, and reactive to light. No scleral icterus. ENT: Ears: The external ears are normal. TM's non-erythematous. External canals normal. Nose: The external nose is normal. Throat: The oropharynx is normal. Mucus membranes are moist. Neck: Normal range of motion. There is no rigidity. CV: Regular rate and rhythm. No murmur. 2+ radial pulses Resp: Breath sounds are clear bilaterally. Non-labored, no retractions or accessory muscle use. GI: Mild left suprapubic tenderness. Remainder of abdomen nontender. No rebound or guarding. FOREX TRADER: Normal external genitalia without lesions. Scant amount of blood in vaginal canal. Cervical os is closed and appears normal; No gross pus from cervical os noted. No tissue seen in vaginal canal. Bimanual exam: No masses appreciated. No cervical motion tenderness. No tenderness to palpation of adnexal or uterus/bladder MS: Normal range of motion. Skin: Warm and dry. Neuro: Strength and sensation grossly intact. Psych: Awake. Alert. Appropriate interactions. Emergency Department Course Imaging: Radiology findings were communicated with the patient who voiced understanding of the findings. US Pelvic Complete w Transvaginal & Abd/Pel Duplex Limited: 1. No acute pathology identified. Report per radiology. Laboratory: Laboratory findings were communicated with the patient who voiced understanding of the findings. CBC: WBC 9.2, HGB 13.1, PLT 246 BMP: AWNL (Creatinine 0.76) HCG Qualitative: Negative Procedures None. Interventions: 1147 Toradol 15 mg IV Emergency Department Course: Past medical records, nursing notes, and vitals reviewed. 1001 I performed an exam of the patient as documented above. IV was inserted and blood was drawn for laboratory testing, results above. The patient was sent for a complete pelvic ultrasound while in the emergency department, results above. 1209 I rechecked the patient and discussed the results of her workup thus far. Findings and plan explained to the Patient. Patient discharged home with instructions regarding supportive care, medications, and reasons to return. The importance of close follow-up was reviewed. I personally reviewed the laboratory and imaging results with the Patient and answered all related questions prior to discharge. Impression & Plan Medical Decision Making: Estefania Mckeon is a 34 year old female with medical history including ovarian cysts, s/p bilateral tubal ligation, presents to the emergency department with left suprapubic pain. On exam, she appears well and has very mild tenderness to the left suprapubic area without rebound or guarding. Remainder of abdomen nontender. Vitals normal on arrival. Blood work including CBC and BMP overall unremarkable. There is no leukocytosis to suggest infection. Pelvic ultrasound without evidence of ovarian torsion or other acute findings. There is no right lower quadrant tenderness or left lower quadrant tenderness to suggest appendicitis or diverticulitis. Pelvic exam unremarkable with minimal vaginal bleeding. No CMT. No suspicion for PID and patient declined STD testing. Patient has no urinary symptoms tosuggest UTI or pyelonephritis. No evidence of intra- abdominal emergency at this time. No indication for CT imaging at this time. I believe patient can be safely discharged with close follow-up with primary care provider or [facility] in 2-3 days for recheck. Recommended heating pad and ibuprofen as needed. Return to the emergency department for fever/chills, increasing pain, or any other new/concerning symptoms. Patient agrees with this plan all questions and concerns addressed prior to discharge home. Diagnosis: ICD-10-CM 1. Pelvic pain in female R10.2 Disposition: Discharged to home. Discharge Medications: None. Scribe Disclosure: Ly Tolbert, am serving as a scribe at 10:01 AM on 12/17/2019 to document services personally performed by Danitza Rivers PA-C based on my observations and the provider's statements to me. Ly Alvarado 12/17/2019 [facility] EM[facility] Danitza Rivers PA-C 12/17/19 1213 documented in this encounter Plan of Treatment Not on filedocumented as of this encounter Procedures Procedure Name Priority Date/Time Associated Comments Diagnosis US PELVIS COMPLETE W STAT 12/17/2019 11:06 Res ults for this TRANSVAGINAL AND AM CDT procedure a re in DOPPLER LIMITED the results section. CBC WITH PLATELETS & STAT 12/17/2019 10:10 Res ults for this DIFFERENTIAL AM CDT procedure are i n the results section. HCG QUALITATIVE STAT 12/17/2019 10:10 Results for this AM CDT procedure are i n the results section. BASIC METABOLIC PANEL STAT 12/17/2019 10:10 Re sults for this AM CDT procedure are i n the results section. documented in this encounter Results US Pelvic Complete w Transvaginal & Abd/Pel Duplex Limited (12/17/2019 11:06 AM CDT) Anatomical Region Laterality Modality Abdomen/Pelvis Ultrasound Specimen (Source) Anatomical Location Collection Method / Collectio n Time Received Time / Laterality Volume Impressions 12/17/2019 12:04 PM CDT IMPRESSION: 1. ??No acute pathology identified. JACKSON YANEZ MD Narrative 12/17/2019 12:04 PM CDT ULTRASOUND PELVIS COMPLETE WITH TRANSVAGINAL AND DOPPLER LIMITED 12/17/2019 11:06 AM CLINICAL HISTORY: Left suprapubic pain. ??Septate uterus. TECHNIQUE: Transabdominal scans were per formed. Endovaginal ultrasound was performed to better visualize the ad nexa. COMPARISON: 10/13/2019 FINDINGS: UTERUS: 8.2 x 4.5 x 6.5 cm. Again, the p atient appears to have a septate or arcuate variant. ENDOMETRIUM: 6.4 mm. Normal smooth endom etrium. RIGHT OVARY: 3.9 x 2 x 3.2 cm. Normal wi th flow demonstrated. LEFT OVARY: 4.6 x 2 x 2.1 cm. Normal wit h flow demonstrated. No significant free fluid. Procedure Note Jackson Yanez MD - 12/17/2019Formatting o f this note might be different from the original. ULTRASOUND PELVIS COMPLETE WITH TRANSVAG INAL AND DOPPLER LIMITED 12/17/2019 11:06 AM CLINICAL HISTORY: Left suprapubic pain. Septate uterus. TECHNIQUE: Transabdominal scans were per formed. Endovaginal ultrasound was performed to better visualize the ad nexa. COMPARISON: 10/13/2019 FINDINGS: UTERUS: 8.2 x 4.5 x 6.5 cm. Again, the p atient appears to have a septate or arcuate variant. ENDOMETRIUM: 6.4 mm. Normal smooth endom etrium. RIGHT OVARY: 3.9 x 2 x 3.2 cm. Normal wi th flow demonstrated. LEFT OVARY: 4.6 x 2 x 2.1 cm. Normal wit h flow demonstrated. No significant free fluid. IMPRESSION: 1. No acute pathology identified. JACKSON YANEZ MD Danitza Princess Van PA-C IMG US ORDERABLES HCG QUALitative (blood) (12/17/2019 10:10 AM CDT) Patholo gist Method Time Signature HCG Qualitative Negative NEG^Negati 12/17/2019 [place] Serum ve 11:04 AM [facility] Comment: This test is for screening purposes. ??R esults should be interpreted along with the clinical picture. ??Confirmation te sting is available if warranted by ordering [id number], HCG Quantitative Pregna ncy. Specimen Anatomical Collection Method Collection Time Receive d Time (Source) Location / / Volume Laterality Blood specimen 12/17/2019 10:10 0 (specimen) AM CDT 10:19 AM CDT Danitza Araujo PA-C LAB - BLOOD ORDERABLES Performing Organization Address City/State/ZIP Code Phon e Number [place] [address] [address] [place] [address] [address] [place] [phone] Basic metabolic panel (12/17/2019 10:10 AM CDT) P athologist Signature Sodium 139 133 - 144 12/17/2019 [place] mmol/L 10:34 AM [facility] Potassium 4.0 3.4 - 5.3 12/17/2019 [place] mmol/L 10:34 AM [facility] Chloride 108 94 - 109 12/17/2019 [place] mmol/L 10:34 AM [facility] Carbon Dioxide 24 20 - 32 12/17/2019 [place] mmol/L 10:39 AM [facility] Anion Gap 7 3 - 14 12/17/2019 [place] mmol/L 10:39 AM [facility] Glucose 87 70 - 99 12/17/2019 [place] mg/dL 10:39 AM [facility] Urea Nitrogen 11 7 - 30 12/17/2019 [place] mg/dL 10:39 AM [facility] Creatinine 0.76 0.52 - 12/17/2019 [place] 1.04 mg/dL 10:39 AM CDT [facility] GFR Estimate >90 >60 12/17/2019 [place] mL/min/{1. 10:39 AM [facility] 73_m2} [facility] Comment: Non GFR Calc Starting 05/09/2018, serum creatinine ba sed estimated GFR (eGFR) will be calculated using the Chronic Kidney Dise [facility] Epidemiology Collaboration (CKD-EPI) equation. GFR Estimate If >90 >60 mL/min/{1.73_m2} 12/17/2019 10:39 AM [facility] Black [facility] Comment: GFR Calc Starting 05/09/2018, serum creatinine ba sed estimated GFR (eGFR) will be calculated using the Chronic Kidney Dise [facility] Epidemiology Collaboration (CKD-EPI) equation. Calcium 8.5 8.5 - 10.1 mg/dL 12/17/2019 10:39 AM [facility] Specimen Anatomical Collection Method Collection Time Receive d Time (Source) Location / / Volume Laterality Blood specimen 12/17/2019 10:10 0 (specimen) AM CDT 10:19 AM CDT Danitza Araujo PA-C LAB - BLOOD ORDERABLES Performing Organization Address City/State/ZIP Code Phon e Number M [address] [address] [facility] [address] [place], [place] [address] [phone] [address], [facility] CBC with platelets differential (12/17/2019 10:10 AM CDT) [facility] Method Time Signature WBC 9.2 4.0 - 12/17/2019 [place] 11.0 10:24 AM [facility] 10e9/L [facility] RBC Count 4.26 3.8 - 5.2 12/17/2019 [place] 10e12/L 10:24 AM [facility] Hemoglobin 13.1 11.7 - 12/17/2019 [place] 15.7 g/dL 10:24 AM [facility] Hematocrit 39.7 35.0 - 12/17/2019 [place] 47.0 % 10:24 AM [facility] MCV 93 78 - 100 12/17/2019 [facility] fl 10:24 AM [facility] MCH 30.8 26.5 - 12/17/2019 [facility] 33.0 pg 10:24 AM [facility] MCHC 33.0 31.5 - 12/17/2019 [facility] 36.5 g/dL 10:24 AM [facility] RDW 12.1 10.0 - 12/17/2019 [facility] 15.0 % 10:24 AM [facility] Platelet Count 246 150 - 450 12/17/2019 [facility] 10e9/L 10:24 AM [facility] Diff Method Automated 12/17/2019 [facility] Method 10:24 AM [facility] % Neutrophils 62.4 % 12/17/2019 [facility] 10:24 AM [facility] % Lymphocytes 25.8 % 12/17/2019 [facility] 10:24 AM [facility] % Monocytes 9.0 % 12/17/2019 [facility] 10:24 AM [facility] % Eosinophils 2.0 % 12/17/2019 [facility] 10:24 AM [facility] % Basophils 0.5 % 12/17/2019 [facility] 10:24 AM [facility] % Immature 0.3 % 12/17/2019 [facility] Granulocytes 10:24 AM [facility] Nucleated RBCs 0 0 /100 12/17/2019 [facility] 10:24 AM [facility] Absolute 5.7 1.6 - 8.3 12/17/2019 [facility] Neutrophil 10e9/L 10:24 AM [facility] Absolute 2.4 0.8 - 5.3 12/17/2019 [facility] Lymphocytes 10e9/L 10:24 AM [facility] Absolute 0.8 0.0 - 1.3 12/17/2019 [facility] Monocytes 10e9/L 10:24 AM [facility] Absolute 0.2 0.0 - 0.7 12/17/2019 [facility] Eosinophils 10e9/L 10:24 AM [facility] Absolute 0.1 0.0 - 0.2 12/17/2019 [facility] Basophils 10e9/L 10:24 AM [facility] Abs Immature 0.0 0 - 0.4 12/17/2019 [facility] Granulocytes 10e9/L 10:24 AM [facility] Absolute 0.0 12/17/2019 [place] Nucleated RBC 10:24 AM [facility] Specimen Anatomical Collection Method Collection Time Receive d Time (Source) Location / / Volume Laterality Blood specimen 12/17/2019 10:10 0 (specimen) AM CDT 10:19 AM CDT Danitza Araujo PA-C LAB - BLOOD ORDERABLES Performing Organization Address City/State/ZIP Code Phon e Number [place] [address] [address] [place], [place] [address] [facility] [address] [place], [place] [address] [facility] [phone] documented in this encounter Visit Diagnoses Diagnosis Pelvic pain in female Unspecified symptom associated with fema le genital organs documented in this encounter Administered Medications Inactive Administered Medications - up to 3 most recent administrations Medication Order MAR Action Action Date Dose Rate Site ketorolac (TORADOL) injection 15 Given 12/17/2019 11:47 AM CDT 1 5 mg mg 15 mg, Intravenous, ONCE, On Tue12/17/19 at 1145, For 1 dose, Can cause pain on injection. If ordered intravenously (IV) : administer through a running maintenance fluid over 1 minute followed by a flush. If patient complains of pain on injection, may dilute 15-30 mg in 5 mL and push over 1 to 2 minutes. documented in this encounter Active and Recently Administered Medications Times are shown in CDT. Scheduled Medication Order 12/15/2019 12/16/2019 12/17/2019 ketorolac (TORADOL) injection 15 mg (COMPLETED) 1147 (Given - Provider: Davin Vega RN) 15 mg, Intravenous, ONCE, On Tue12/17/19 at 1145, For 1 dose, Can cause pain on injection. If ordered intravenously (IV) : administer through a running maintenance fluid over 1 minute followed by a flus h. If patient complains of pain on injec tion, may dilute 15-30 mg in 5 mL and push over 1 to 2 minutes. documented in this encounter Care Teams Generation Manager Relationship Specialty Start Date End Date Delia Mcdonald MD PCP - General Family Practice 10/13/[address] [place] [address] documented as of this encounter
--- OUTSIDE RECORDS SUMMARY | 2022-04-25 22:23 | XMS_ITS | Encounter Summary ---
:1985 Author Organization [place] Address [address] [place] [address] Care Team Providers Name Role Phone Delia Mcdonald MD Primary Care Provider [phone] Encounter Details Date Type Department Care Team Description 10/13/2019 Travel Social History Tobacco Use Types Packs/Day [...] on filedocumented in this encounter Care Teams Global Chief Experience Officer Relationship Specialty Start Date End Date Delia Mcdonald MD PCP - General Family Practice 10/13/[address] [place] [address] documented as of this encounter
--- OUTSIDE RECORDS SUMMARY | 2022-04-25 22:23 | XMS_ITS | Clinical Summary ---
:1985 Author Organization [place] Address [address] [place] [address] Care Team Providers Name Role Phone Delia Mcdonald MD Primary Care Provider [phone] Allergies Active Allergy Reactions Severity Noted Date Comments Amoxicillin Hives 03/13/2007 Altaryl Palpitations Medium 07/25/2012 Nitrofurantoin Hives High 01/16/2019 Medications Medication Sig Dispensed Refills Start Date End Date Status levonorgestrel-ethinyl Take 1 tablet by 3 Package 2 10/10/2013 Active estradiol mouth daily (AVIANE,ALESSE,LESSINA) 0.1-20 MG-MCG per tabletIndications: Contraception Active Problems Problem Noted Date Bicornuate uterus 09/28/2011 ASCUS on Pap smear 08/18/2011 Overview: 08/18/11 ASCUS dx pap. Neg HPV. Repeat pa p 6 months 06/18/13 Dx pap NIL with Neg high risk HP V. Plan: cotest in 3 years CARDIOVASCULAR SCREENING; LDL GOAL LESS THAN 160 03/22 Iron (Fe) deficiency anemia Immunizations Name Administration Dates Next Due Influenza (IIV3) PF 06/08/2012 TDAP Vaccine (Adacel) 06/08/2012 Family History Medical History Relation Comments Diabetes Father Hypertension Father Lipids Father C.A.D. Maternal Grandfather Hypertension Maternal Grandfather Gastrointestinal Disease Maternal Grandmother Crohns Hypertension Maternal Grandmother Musculoskeletal Disorder Maternal Uncle Hypertension Mother Lipids Mother high triglycerides Neurologic Disorder Paternal Aunt 1 Diabetes Paternal Aunt 2 Asthma Paternal Aunt 3 Genitourinary Problems Paternal Grandfather Kidney stones Diabetes Paternal Uncle Relation Status Comments Brother Alive Father Alive Maternal Grandfather Alive Maternal Grandmother Alive Maternal Uncle Mother Alive Paternal Aunt 1 Paternal Aunt 2 Paternal Aunt 3 Paternal Grandfather Paternal Grandmother Alive Paternal Uncle Social History Tobacco Use Types Packs/Day Years Used Date Smoking Tobacco: Never Smokeless Tobacco: Never Alcohol Use Standard Drinks/Week Comments Yes 0 (1 standard drink = 0.6 oz pure alcoho l) casual Sex Assigned at Date Recorded Not on file Last Filed Vital Signs Vital Sign Reading Time Taken Comments Blood Pressure 113/84 12/17/2019 12:00 PM CDT Pulse 70 12/17/2019 12:00 PM CDT Temperature 36.8 ??C (98.3 ??F) 12/17/2019 9:56 AM CDT Respiratory Rate 14 12/17/2019 12:11 PM CDT Oxygen Saturation 98% 12/17/2019 12:00 PM CDT Inhaled Oxygen Concentration - - Weight 61.9 kg (136 lb 6.4 oz) 06/18/2013 10:43 AM APPLICATION INTEGRATOR Height 174 cm (5' 8.5) 06/18/2013 10:43 AM APPLICATION INTEGRATOR Body Mass Index 20.44 06/18/2013 10:43 AM APPLICATION INTEGRATOR Plan of Treatment Health Maintenance Due Date Last Done Comments ADVANCE CARE PLANNING 1985 ANNUAL REVIEW OF HM ORDERS 1985 COVID-19 Vaccine (#1) 1985 HIV SCREENING 2000 HEPATITIS C SCREENING 2003 YEARLY PREVENTIVE VISIT 06/18/2014 06/18/2013 PAP 06/18/2016 06/18/2013, 08/18/2011 PHQ-2 (once per calendar 05/23/2021 year) INFLUENZA VACCINE (#1) 2022 03/07/2015, 03/07/2015, 06/08/2012, Additional history exists DTAP/TDAP/TD IMMUNIZATION 06/08/2022 06/08/2012, 09/25/1997 , (5 - Td or Tdap) 11/02/1994, Additional history exists IPV IMMUNIZATION Aged Out 11/02/1994, 05/07/1991 No longe r eligible based on patient 's age to complete this topic HEPATITIS B IMMUNIZATION Completed 09/06/1998, 09/25/1997, 06/19/1997, Additional history exists MENINGITIS IMMUNIZATION Aged Out 12/23/2003 No longe r eligible based on patient 's age to complete this topic Pneumococcal Vaccine: Aged Out No longer eligible Pediatrics (0 to 5 Years) based on patient's age and At-Risk Patients (6 to to co mplete this topic 64 Years) Insurance Payer Benefit Plan / Subscriber ID Effective Phone Address T ype Group Dates [email or web address] [id number] 2018-Pres [phone] [address] HMO OPEN ACCESS ent [address] [place] [address] Advance Directives For more information, please contact: [phone] Latest Code Status on File Code Status Date Activated Date Inactivated Comments Full Code 07/25/2012 12:13 AM 07/26/2012 6:05 PM Care Teams Brick Pointer Relationship Specialty Start Date End Date Delia Mcdonald MD PCP - General Family Practice 10/13/[address] [place] [address] [place] [address]
--- OUTSIDE RECORDS SUMMARY | 2022-04-25 22:24 | XMS_ITS | Encounter Summary ---
:1985 Author Organization [place] Address [address] [place] [address] Care Team Providers Name Role Phone Janis Cuellar MD Primary Care Provider Reason for Visit Reason Comments Physical Fasting, no pap Encounter Details Date Type Department Care Team Description 06/18/2013 Office Visit [facility] Janis Cuellar MD Routine general medical examination at a health care facility (Primary Dx); [facility] [place] [address] Iron (Fe) deficiency anemia; [address] ASCUS on Pap smear [place], [place] [address] [address] [place], [place] [phone] (Wo rk) [id number] [phone] Social History Tobacco Use Types Packs/Day Years Used Date Smoking Tobacco: Never Smokeless Tobacco: Never Alcohol Use Standard Drinks/Week Comments Yes 0 (1 standard drink = 0.6 oz pure alcoho l) casual Sex Assigned at Date Recorded Not on file documented as of this encounter Last Filed Vital Signs Vital Sign Reading Time Taken Comments Blood Pressure 115/60 06/18/2013 10:43 AM DIRECTOR OF CARDIAC CATH LAB Pulse 132 06/18/2013 10:43 AM DIRECTOR OF CARDIAC CATH LAB Temperature 36.4 ??C (97.6 ??F) 06/18/2013 10:43 AM DIRECTOR OF CARDIAC CATH LAB Respiratory Rate - - Oxygen Saturation 99% 06/18/2013 10:43 AM DIRECTOR OF CARDIAC CATH LAB Inhaled Oxygen Concentration - - Weight 61.9 kg (136 lb 6.4 oz) 06/18/2013 10:43 AM DIRECTOR OF CARDIAC CATH LAB Height 174 cm (5' 8.5) 06/18/2013 10:43 AM DIRECTOR OF CARDIAC CATH LAB Body Mass Index 20.44 06/18/2013 10:43 AM DIRECTOR OF CARDIAC CATH LAB documented in this encounter Patient Instructions Patient InstructionsJanis Cuellar MD - 06/18/2013 10:53 AM CST PREVENTIVE HEALTH RECOMMENDATIONS: Vaccines: Get a flu shot each year. Get a tetanus shot every 10 years. Exercise for at least 150 minutes a week (an average of 30 minutes a day, 5 days of the week). This will help you control your weight and prevent disease. Limit alcohol to one drink per day. No smoking. Wear sunscreen to prevent skin cancer. See your dentist twice a year for an exam and cleaning. Try to get Calcium 1000 mg total per day. It is best to not take it all at once. Try to get Vitamin D at least 600 units per day. CTOR OF CARDIAC CATH LAB documented in this encounter Progress Notes Janis Cuellar MD - 06/18/2013 10:36 AM CST SUBJECTIVE: CC: Estefania Mckeon is an 28 year old woman who presents for preventive health visit. Healthy Habits: ?? Do you get at least three servings of calcium containing foods daily (dairy, green leafy vegetables, etc.)? yes ?? Amount of exercise or daily activities, outside of work: None ?? Problems taking medications regularly No ?? Medication side effects: No ?? Have you had an eye exam in the past two years? no ?? Do you see a dentist twice per year? yes ?? Do you have sleep apnea, excessive snoring or daytime drowsiness?no Other concerns to address: None Today's PHQ-2 Score: Abuse: Current or Past(Physical, Sexual or Emotional)- No Do you feel safe in your environment - Yes History Substance Use Topics ??? Smoking status: Never Smoker ??? Smokeless tobacco: Never Used ??? Alcohol Use: Yes Comment: casual Casual History of abnormal Pap smear: NO - age 21-29 PAP every 3 years recommended Patient Active Problem List Diagnosis ??? CARDIOVASCULAR SCREENING; LDL GOAL LESS THAN 160 ??? ASCUS on Pap smear ??? Bicornuate uterus ??? Iron (Fe) deficiency anemia No current outpatient prescriptions on file. Review Of Systems: Skin: negative Eyes: negative Ears/Nose/Throat: negative Respiratory: No dyspnea on exertion and No cough Cardiovascular: negative Gastrointestinal: negative Genitourinary: negative Musculoskeletal: negative Neurologic: negative Psychiatric: negative Hematologic/Lymphatic/Immunologic: fatigue, ongoing anemia Endocrine: negative Gynecologic ros reveals:normal menses, no abnormal bleeding, pelvic pain or discharge, no breast pain or new or enlarging lumps on self exam Objective: Patient alert, in no acute distress BP 115/60 Pulse 132 Temp 97.6 ??F (36.4 ??C) (Oral) Ht 5' 8.5 (1.74 m) Wt 136 lb 6.4 oz (61.871 kg) BMI 20.44 kg/m2 SpO2 99% LMP 06/06/2013 HEENT: extraocular movements are intact, pupils equal and reactive to light and accommodation, TMs clear, oropharynx clear NECK: Neck supple. No adenopathy. Thyroid symmetric, normal size, PULMONARY: clear to auscultation CARDIAC: regular rate and rhythm and no murmurs, clicks, or gallops PULSES: 2/2 throughout BACK: no spinal or CVAT ABDOMINAL: Soft, nontender. Normal bowel sounds. No hepatosplenomegaly or abnormal masses BREAST: No breast masses or tenderness, No axillary masses or tenderness and No galactorrhea PELVIC: external genitalia normal, vaginal mucosa normal, cervix normal, specimen sent for pap, bimanual exam with normal uterus and adnexa REFLEXES: 2+ throughout SKIN: unremarkable ASSESSMENT/PLAN: V70.0 Routine general medical examination at a health care facility (primary encounter diagnosis) Comment: Plan: NEISSERIA GONORRHOEA PCR, CHLAMYDIA TRACHOMATIS PCR, Lipid Profile with reflex to direct LDL, Basic metabolic panel 280.9 Iron (Fe) deficiency anemia Comment: recheck Plan: Hemoglobin, Iron and iron binding capacity 796.9 ASCUS on Pap smear Comment: recheck Plan: PAP imaged thin layer, diagnostic Counseling Resources: ATP III Guidelines FRAX Risk Assessment ICSI Preventive Guidelines Dietary Guidelines for Americans, 2010 USDA's MyPlate regular exercise Osteoporosis Prevention/Bone Health reports that she has never smoked. She has never used smokeless tobacco. Estimated Body mass index is 18.71 kg/(m^2) as calculated from the following: Height as of 07/24/12: 5' 8(1.727 m). Weight as of 07/24/12: 123 lb(55.792 kg). Janis Cuellar MD, MD [facility] CTOR OF CARDIAC CATH LAB documented in this encounter Nursing Notes 06/18/2013 10:30 AM CST >> ALESSIA KINSEY Ghosh Jun 18, 2013 10:45 AM Patient presents with: Physical - Fasting, no pap Initial BP 115/60 Pulse 132 Temp 97.6 ??F (36.4 ??C) (Oral) Ht 5' 8.5 (1.74 m) Wt 136 lb 6.4 oz (61.871 kg) BMI 20.44 kg/m2 SpO2 99% LMP 06/06/2013 Estimated Body mass index is 20.44 kg/(m^2) as calculated from the following: Height as of this encounter: 5' 8.5(1.74 m). Weight as of this encounter: 136 lb 6.4 oz(61.871 kg).. BP completed using cuff size regular Alessia Vargas/RENAN documented in this encounter Plan of Treatment Not on filedocumented as of this encounter Procedures Procedure Name Priority Date/Time Associated Diagnosis Comme nts NEISSERIA Routine 06/18/2013 12:19 Routine general Results for this GONORRHOEAE PCR PM DIRECTOR OF CARDIAC CATH LAB medical examination proce dure are in at a health care the results facility section. CHLAMYDIA Routine 06/18/2013 12:19 Routine general Results for this TRACHOMATIS PCR PM DIRECTOR OF CARDIAC CATH LAB medical examination proce dure are in at a health care the results facility section. LIPID REFLEX TO Routine 06/18/2013 11:20 Routine general Resul ts for this DIRECT LDL PANEL AM DIRECTOR OF CARDIAC CATH LAB medical examination proc edure are in at a health care the results facility section. IRON AND IRON Routine 06/18/2013 11:20 Iron (Fe) deficiency Re sults for this BINDING CAPACITY AM DIRECTOR OF CARDIAC CATH LAB anemia procedure a re in the results section. HEMOGLOBIN Routine 06/18/2013 11:20 Iron (Fe) deficiency Res ults for this AM DIRECTOR OF CARDIAC CATH LAB anemia procedure are i n the results section. BASIC METABOLIC Routine 06/18/2013 11:20 Routine general Resul ts for this PANEL AM DIRECTOR OF CARDIAC CATH LAB medical examination procedur e are in at a health care the results facility section. PAP IMAGED THIN Routine 06/18/2013 12:00 ASCUS on Pap smear Re sults for this LAYER, DIAGNOSTIC AM DIRECTOR OF CARDIAC CATH LAB procedure are in the results section. HPV SCR W REF TO Routine 06/18/2013 12:00 Results for this EMILY ANAL PAP OR AM DIRECTOR OF CARDIAC CATH LAB procedure a re in TISSUE the results section. documented in this encounter Results CHLAMYDIA TRACHOMATIS PCR (06/18/2013 12:19 PM DIRECTOR OF CARDIAC CATH LAB) Component Value Ref Test Analysis Performed At [facility] Method Time Signature Specimen Vagina [facility] Chlamydia Negative NEG [facility] Trachomatis Negative for C. trachomatis rRNA by car dumper mediated amplification. MICROBIOLOGY PCR A negative result by transc ription mediated amplification does not preclude the presence of C. trachomatis infection because re sults are dependent on proper and adequate collection, absence of inhibitors, and suffici ent rRNA to be detected. Specimen Anatomical Collection Method Collection Time Receive d Time (Source) Location / / Volume Laterality Cervical swab 06/18/2013 12:19 06/18/2013 (specimen) PM DIRECTOR OF CARDIAC CATH LAB 12:24 PM DIRECTOR OF CARDIAC CATH LAB Janis Cuellar MD LAB - MICRO GENERAL ORDERABL ES Performing Organization Address City/[facility] Phon e Number [place] [address] [address] [place], [place] [address] [address] [facility] MICROBIOLOGY NEISSERIA GONORRHOEA PCR (06/18/2013 12:19 PM DIRECTOR OF CARDIAC CATH LAB) Component Value Ref Test Analysis Performed At [facility] Method Time Signature Specimen Vagina [facility] Gonorrhea Negative NEG [facility] PCR Negative for N. gonorrhoeae rRNA by transcripti on mediated amplification. MICROBIOLOGY A negative result by transc ription mediated amplification does not preclude the presence of N. gonorrhoeae infection because re sults are dependent on proper and adequate collection, absence of inhibitors, and suffici ent rRNA to be detected. Specimen Anatomical Collection Method Collection Time Receive d Time (Source) Location / / Volume Laterality Cervical swab 06/18/2013 12:19 06/18/2013 (specimen) PM DIRECTOR OF CARDIAC CATH LAB 12:24 PM DIRECTOR OF CARDIAC CATH LAB Janis Cuellar MD LAB - MICRO GENERAL ORDERABL ES Performing Organization Address City/[facility] Phon e Number [id number] [place] [address] [address] [place], [place] [address] [address] [facility] MICROBIOLOGY Basic metabolic panel (06/18/2013 11:20 AM DIRECTOR OF CARDIAC CATH LAB) athologist Signature Sodium 140 133 - 144 [place] mmol/L [facility] Potassium 4.3 3.4 - 5.3 [place] mmol/L [facility] Chloride 101 94 - 109 [place] mmol/L [facility] Carbon Dioxide 27 20 - 32 [place] mmol/L [facility] Anion Gap 12 6 - 17 [place] mmol/L [facility] Glucose 79 60 - 99 [place] mg/dL [facility] Comment: Fasting specimen Urea Nitrogen 10 5 - 24 mg/dL [place] [facility] Creatinine 0.77 0.52 - 1.04 mg/dL [place] [facility] GFR Estimate 89 >60 mL/min/1.7m2 [place] [facility] GFR Estimate If Black >90 >60 mL/min/1.7m2 [facility] Calcium 9.5 8.5 - 10.4 mg/dL [place] [facility] Specimen Anatomical Collection Method Collection Time Receive d Time (Source) Location / / Volume Laterality Blood specimen 06/18/2013 11:20 4 (specimen) AM DIRECTOR OF CARDIAC CATH LAB 11:25 AM DIRECTOR OF CARDIAC CATH LAB Janis Cuellar MD LAB - BLOOD ORDERABLES Performing Organization Address City/State/ZIP Code Phon e Number [facility] [address] [place] [address] Lipid Profile with reflex to direct LDL (06/18/2013 11:20 AM DIRECTOR OF CARDIAC CATH LAB) athologist Signature Cholesterol 141 0 - 200 [place] mg/dL [facility] Comment: LDL Cholesterol is the primary guide to therapy. The NCEP recommends further evaluation of: patients with cholesterol greater than 200 mg/dL if additional risk facto rs are present, cholesterol greater than 240 mg/dL, triglycerides greater than 1 50 mg/dL, or HDL less than 40 mg/dL. Triglycerides 98 0 - 150 mg/dL [place] [facility] HDL Cholesterol 50 50 - 110 mg/dL [facility] LDL Cholesterol Calculated 71 0 - 129 mg/dL [facility] Comment: LDL Cholesterol is the primary guide to therapy: LDL-cholesterol goal in high risk patients is <100 mg/dL and in very high risk patients is <70 mg/dL. VLDL-Cholesterol 20 0 - 30 mg/dL [facility] Cholesterol/HDL Ratio 2.8 0.0 - 5.0 [facility] Specimen Anatomical Collection Method Collection Time Receive d Time (Source) Location / / Volume Laterality Blood specimen 06/18/2013 11:20 4 (specimen) AM DIRECTOR OF CARDIAC CATH LAB 11:25 AM DIRECTOR OF CARDIAC CATH LAB Janis Cuellar MD LAB - BLOOD ORDERABLES Performing Organization Address City/[facility]/ZIP Code Phon e Number [facility] [address] [place] [address] (ABNORMAL) Iron and iron binding capacity (06/18/2013 11:20 AM DIRECTOR OF CARDIAC CATH LAB) [facility] gist Method Time Signature Iron 14 (L) 35 - 180 [facility] Iron Binding 546 (H) 240 - 430 [place] Cap ug/dL [facility] Iron Saturation 3 (L) 15 - 46 % [place] Index [facility] Specimen Anatomical Collection Method Collection Time Receive d Time (Source) Location / / Volume Laterality Blood specimen 06/18/2013 11:20 4 (specimen) AM DIRECTOR OF CARDIAC CATH LAB 11:25 AM DIRECTOR OF CARDIAC CATH LAB Janis Cuellar MD LAB - BLOOD ORDERABLES Performing Organization Address City/[facility]/ZIP Code Phon e Number [facility] [place] [address] [place] [address] [facility] [address] [place] [address] (ABNORMAL) Hemoglobin (06/18/2013 11:20 AM DIRECTOR OF CARDIAC CATH LAB) P athologist Signature Hemoglobin 8.3 (L) 11.7 - 15.7 [place] g/dL [facility] Comment: Results confirmed by repeat test Reviewed: OK with previous Specimen Anatomical Collection Method Collection Time Receive d Time (Source) Location / / Volume Laterality Blood specimen 06/18/2013 11:20 4 (specimen) AM DIRECTOR OF CARDIAC CATH LAB 11:25 AM DIRECTOR OF CARDIAC CATH LAB Janis Cuellar MD LAB - BLOOD ORDERABLES Performing Organization Address City/[facility]/ZIP Code Phon e Number [facility] [address] [place] [place], [place] [address] [address] HPV screen with reflex to genotype (06/18/2013 12:00 AM DIRECTOR OF CARDIAC CATH LAB) Component Value Ref Test Analysis Performed At [facility] Method Time Signature Dom Report Patient Name: ESTEFANIA MCKEON MR#: [id number] Specimen #: [id number] Collected: 06/18/2013 00:00 Received: 06/22/2013 11:45 Reported: 06/26/2013 16:18 Ordering Phy(s): JANIS CUELLAR TEST(S) REQUESTED: A: Human Papillomavirus Screen Analysis B: Human Papillomavirus Molecular Genotyping Electrophoresis Analysis SPECIMEN DESCRIPTION: Cervical Cells METHODOLOGY: ??Total cellular DNA was extracted from the abo ve specimen and up to 1 ug subjected to DNA amplification with a series of oligonucleotide primers directed to the L1 region of the hum an papillomavirus genome. ??The resulting PCR fragments were th en by capillary electrophoresis using a Recovr with 3nder software. ??The PCR products from samples positive for HPV D NA were then digested with a series of restriction endonuclease enzymes. ??The resulting pattern of bands corresponding to the digested DNA products were interpreted according to the corresponding HPV DNA cont rols. Amplification of a segment of the beta globin gene serves as an internal control of DNA amplification. RESULTS (L1 region): ? NEGATIVE FOR HIGH RISK HPV DNA Final Diagnosis: This patient's sample is negative for high risk HPV DNA. Diagnosis Comment: This patient's sample is negative for high-risk HPV DNA. ??T esting for low-risk HPV types has no clinical role in cervical cancer s creening or the evaluation of women with abnormal cytology[1]. ??These r esults do not rule out the presence of an occult HPV infection which is no t detected due to either sampling error, or sample procurement. Guidelines referenced to assign HPV carcinogenicity are from ??Jaziel Sanchez, et al. A review of human carcinogens-Part B:biological agent s. Lancet Oncol; August 2008;10:321. High risk types: 16, 18, 31, 33, 3 5, 39, 45, 51, 52, 56, 58, 59, 68. 1. ??Hillary Sinha et al. [place] cancer society, [place] soci ety for colposcopy and cervical pathology, and [place] society for clinical pathology screening guidelines for the prevention and early detection of cervical cancer. ??CA Cancer J Clin 2012;62:147-172. This test was developed and its performance determined by [facility] [place] ??[facility]. It has not been cleared or approved by the U.S. Food and Izaiah g Administration. ??The FDA has determined that such clearance or approval is not necessary. ??Pursuant to the requirements of CLIA'88, this laboratory has established and verified the test's accuracy and precision. ??This test is used for clinical purposes. Electronically Signed Out By: Terrie Byrne MD CPT Codes: A: 41286- HPVSC B: HPVD1, HPVD2, HPVD3, HPVS, HPVPCR2(2), HPV TESTING LAB LOCATION: [address] [address] COLLECTION SITE: Client: ??[facility] Location: ??RIIM (R) Specimen (Source) Anatomical Collection Method Collection Time Re ceived Time Location / / Volume Laterality 06/18/2013 06/22/2013 11:4 5 AM DIRECTOR OF CARDIAC CATH LAB Janis Cuellar MD LAB - GENOMICS Performing Organization Address City/State/ZIP Code [facility] DOM PAP imaged thin layer, diagnostic (06/18/2013 12:00 AM DIRECTOR OF CARDIAC CATH LAB) Component Value Ref Test Analysis Performed At [facility] Method Time Signature PAP NIL COPATH Copath Report COPATH Patient Name: ESTEFANIA MCKEON MR#: [id number] Specimen #: [id number] Collected: 06/18/2013 Received: 06/19/2013 Reported: 06/20/2013 15:23 Ordering Phy(s): JANIS CUELLAR SPECIMEN/STAIN PROCESS: Pap Imaged thin layer prep diagnostic (SurePath, FocalPoint with guided screening) ? Pap-Cyto x 1, Reflex HPV if ASCUS/LSIL x 1 SOURCE: Cervical, endocervical ---- Pap Imaged thin layer prep diagnostic (SurePath, FocalPoint with guided screening) SPECIMEN ADEQUACY: Satisfactory for evaluation. -Transformation zone component present. CYTOLOGIC INTERPRETATION: Negative for Intraepithelial Lesion or Malignancy ? Organism(s): -Fungal organisms morphologically consistent with Alejandra sp p. Electronically signed out by: LORELEI Gil ??(ASCP) Processed and screened at [facility] CLINICAL HISTORY: LMP: 06/06/2013 Previous ASC-US Date of Last Pap: 08/18/2011, Papanicolaou Test Limitations: ??Cervical cytology is a scre ening test with limited sensitivity; regular screening is critical for cancer prevention; Pap tests are primarily effective for the diagnosis/prevention of squamous cell carcinoma, not adenoca rcinomas or other cancers. TESTING LAB LOCATION: [facility] [address] [place], [place] ??[address] COLLECTION SITE: Client: ??[facility] Location: [place] (R) Specimen (Source) Anatomical Collection Method Collection Time Re ceived Time Location / / Volume Laterality Cytologic 06/18/2013 06/19/2013 11:2 9 material AM DIRECTOR OF CARDIAC CATH LAB (specimen) Janis Cuellar MD LAB - OPTIME CLINICAL SPECIM EN Performing Organization Address City/State/ZIP Code Phon e Number [place] documented in this encounter Visit Diagnoses Diagnosis Routine general medical examination at a health care facility - Primary Iron (Fe) deficiency anemia Iron deficiency anemia, unspecified ASCUS on Pap smear Papanicolaou smear of cervix with atypic al squamous cells of undetermined significance (ASC-US) documented in this encounter Care Teams Manager Interventional Relationship Specialty Start Date End Date Janis Cuellar MD PCP - General 07/08/01 10/12/19 [address] [facility] [address] [place] [address] documented as of this encounter
--- OUTSIDE RECORDS SUMMARY | 2022-04-25 22:24 | XMS_ITS | Encounter Summary ---
:1985 Author Organization [place] Address [address] [place] [address] Care Team Providers Name Role Phone Janis Cuellar MD Primary Care Provider Reason for Visit Reason Comments Infusion venofer Encounter Details Date Type Department Care Team Description 11/19/2013 Infusion Therapy [facility] Janis Cuellar MD Iron (Fe) deficiency [facility] [address] [facility] [address] [place] [phone] Social History Tobacco Use Types Packs/Day Years Used Date Smoking Tobacco: Never Smokeless Tobacco: Never Alcohol Use Standard Drinks/Week Comments Yes 0 (1 standard drink = 0.6 oz pure alcoho l) casual Sex Assigned at Date Recorded Not on file documented as of this encounter Last Filed Vital Signs Vital Sign Reading Time Taken Comments Blood Pressure 105/61 11/19/2013 8:40 AM CDT Pulse 89 11/19/2013 8:40 AM CDT Temperature 36.4 ??C (97.5 ??F) 11/19/2013 8:40 AM CDT Respiratory Rate 16 11/19/2013 8:40 AM CDT Oxygen Saturation - - Inhaled Oxygen Concentration - - Weight - - Height - - Body Mass Index - - documented in this encounter Progress Notes Violette Gore RN - 11/19/2013 8:39 AM CDT Patient here for venofer infusion. Patient tolerated procedure without incident. Patient discharged in the care of self. Patient aware of next appointment. documented in this encounter Plan of Treatment Not on filedocumented as of this encounter Visit Diagnoses Diagnosis Iron (Fe) deficiency anemia Iron deficiency anemia, unspecified documented in this encounter Administered Medications Inactive Administered Medications - up to 3 most recent administrations Medication Order MAR Action Action Date Dose Rate Site iron sucrose (VENOFER) 200 mg New Bag 11/19/2013 9:07 AM CDT 200 m g 440 mL/hr in NaCl 0.9 % 100 mL IVPB 200 mg, Intravenous, Administer over 15 Minutes, at 440 mL/hr, ONCE, On Tue11/19/13 at 0830, For 1 dose, Given at least 48 hours apart. sodium chloride 0.9 % BOLUS 250 mL New Bag 11/19/2013 9:08 AM CDT 250 mLs Intravenous, 250 mL, ONCE, On Tue11/19/13 at 0830, For 1 dose, Concominate fluids documented in this encounter Care Teams Cereal Miller Relationship Specialty Start Date End Date Janis Cuellar MD PCP - General 07/08/01 10/12/19 [address] [facility] [address] [place] [address] documented as of this encounter
--- OUTSIDE RECORDS SUMMARY | 2022-04-25 22:24 | XMS_ITS | Encounter Summary ---
:1985 Author Organization [place] Address [address] [place] [id number] Care Team Providers Name Role Phone Janis Cuellar MD Primary Care Provider Reason for Visit Reason Comments Infusion Venofer Encounter Details Date Type Department Care Team Description 11/13/[address] [facility] Janis Cuellar MD Iron (Fe) deficiency Visit [facility] [address] anemia [facility] [address] [place] [phone] Social History Tobacco Use Types Packs/Day Years Used Date Smoking Tobacco: Never Smokeless Tobacco: Never Alcohol Use Standard Drinks/Week Comments Yes 0 (1 standard drink = 0.6 oz pure alcoho l) casual Sex Assigned at Date Recorded Not on file documented as of this encounter Last Filed Vital Signs Vital Sign Reading Time Taken Comments Blood Pressure 94/56 11/13/2013 9:00 AM CDT Pulse 88 11/13/2013 9:00 AM CDT Temperature 35.9 ??C (96.6 ??F) 11/13/2013 9:00 AM CDT Respiratory Rate 16 11/13/2013 9:00 AM CDT Oxygen Saturation - - Inhaled Oxygen Concentration - - Weight - - Height - - Body Mass Index - - documented in this encounter Progress Notes Ginna Downs RN - 11/13/2013 9:02 AM CDT Pt tolerated infusion without s/s of reactions. Pt DC'd ambulatory per self. documented in this encounter Plan of Treatment Not on filedocumented as of this encounter Visit Diagnoses Diagnosis Iron (Fe) deficiency anemia Iron deficiency anemia, unspecified documented in this encounter Administered Medications Inactive Administered Medications - up to 3 most recent administrations Medication Order MAR Action Action Date Dose Rate Site iron sucrose (VENOFER) 100 mg New Bag 11/13/2013 8:58 AM CDT 100 m g 420 mL/hr in NaCl 0.9% 100 mL IVPB 100 mg, Intravenous, Administer over 15 Minutes, at 420 mL/hr, ONCE, On Tue11/13/13 at 0845, For 1 dose, Given at least 48 hours apart. sodium chloride 0.9 % BOLUS 250 mL New Bag 11/13/2013 8:59 AM CDT 250 mLs Intravenous, 250 mL, ONCE, On Tue11/13/13 at 0845, For 1 dose, Concominate fluids documented in this encounter Care Teams Office Clerk Routine Relationship Specialty Start Date End Date Janis Cuellar MD PCP - General 07/08/01 10/12/19 Jamie GAMBINO [facility] 200 [place] [address] documented as of this encounter
--- OUTSIDE RECORDS SUMMARY | 2022-04-25 22:24 | XMS_ITS | Encounter Summary ---
:1985 Author Organization [place] Address [address] [place] [address] Care Team Providers Name Role Phone Janis Cuellar MD Primary Care Provider Reason for Visit Reason Onset Date Comments Other 06/25/2013 Financial counseling Encounter Details Date Type Department Care Team Description 06/25/2013 Telephone [facility] Janis Cuellar MD Other (Financial Clinic [place] [address] counseling ) [address] [place] [address] [place], [place] [phone] (Wo rk) [id number] [phone] Social History Tobacco Use Types Packs/Day Years Used Date Smoking Tobacco: Never Smokeless Tobacco: Never Alcohol Use Standard Drinks/Week Comments Yes 0 (1 standard drink = 0.6 oz pure alcoho l) casual Sex Assigned at Date Recorded Not on file documented as of this encounter Miscellaneous Notes Telephone Encounter - Alessia Vargas - 07/02/2013 1:01 PM CST Information has been faxed to the number below. Alessia Vargas/RENAN ANCE WILDLIFE SPECIALIST Telephone Encounter - Janis Cuellar MD - 07/02/2013 12:52 PM CST Done; please send. ANCE WILDLIFE SPECIALIST Telephone Encounter - Wanda Geiger RN - 06/27/2013 3:17 PM CST Pt calls back. She spoke with her insurance. If Dr Cuellar writes a letter stating the necessity for the iron infusion, then they would be able to cover it. Need to list her Policy# [id number] Fax Lacy. Fax to [phone] ANCE WILDLIFE SPECIALIST Telephone Encounter - Peggy Jauregui - 06/27/2013 2:54 PM CST Pt called, advised of below. Pt will call insurance and call clinic with information. Pt stated she was tested for celiac disease but is not sure of the results. Pt will call hematology to obtain results. Peggy Jauregui RN ANCE WILDLIFE SPECIALIST Telephone Encounter - Wanda Geiger RN - 06/27/2013 10:50 AM CST Attempted to contact pt. Left message to call clinic. ANCE WILDLIFE SPECIALIST Telephone Encounter - Janis Cuellar MD - 06/26/2013 5:59 PM CST Not sure what the cost of transfusion is; she may need to check with insurance to see if there is any appeal process and I can do a letter. In the meantime she should try to take some iron with Vitamin C. I would like to recheck hgb level in a month. Ask if she was tested for celiac (gluten sensitivity) by hematology. If not sure, may add that to lab ANCE WILDLIFE SPECIALIST Telephone Encounter - Wanda Geiger RN - 06/26/2013 4:00 PM CST Rosi calls back. They will only pay $75.00 for the blood transfusion. ANCE WILDLIFE SPECIALIST Telephone Encounter - Wanda Geiger RN - 06/26/2013 2:27 PM CST Call to Rosi and left detailed message, at the [facility]. ANCE WILDLIFE SPECIALIST Telephone Encounter - Janis Cuellar MD - 06/26/2013 7:02 AM CST Find out if they will cover transfusions. ANCE WILDLIFE SPECIALIST Telephone Encounter - Wanda Geiger RN - 06/25/2013 4:38 PM CST FYI: Rosi from [facility] calls stating pt has new insurance and they will no longer cover the iron infusions. The infusion she had today is rejected by insurance, so Rosi is looking into this for coverage forpt. Pt will no longer be able to receive iron infusions. ANCE WILDLIFE SPECIALIST documented in this encounter Plan of Treatment Not on filedocumented as of this encounter Visit Diagnoses Diagnosis Iron (Fe) deficiency anemia - Primary Iron deficiency anemia, unspecified documented in this encounter Care Teams Pattern Cleaner Relationship Specialty Start Date End Date Janis Cuellar MD PCP - General 07/08/01 10/12/19 [address] [address] documented as of this encounter
--- OUTSIDE RECORDS SUMMARY | 2022-04-25 22:24 | XMS_ITS | Encounter Summary ---
:1985 Author Organization [place] Address [address] [place] [address] Care Team Providers Name Role Phone Janis Cuellar MD Primary Care Provider Encounter Details Date Type Department Care Team Description 06/20/[address] [facility] Janis Cuellar MD Iron (Fe) deficiency Clinic [place] [address] anemia (Primary Dx) [address] [place], [place] [address] [address] [place], [place] [phone] (Wo rk) [id number] [phone] Social History Tobacco Use Types Packs/Day Years Used Date Smoking Tobacco: Never Smokeless Tobacco: Never Alcohol Use Standard Drinks/Week Comments Yes 0 (1 standard drink = 0.6 oz pure alcoho l) casual Sex Assigned at Date Recorded Not on file documented as of this encounter Plan of Treatment Not on filedocumented as of this encounter Visit Diagnoses Diagnosis Iron (Fe) deficiency anemia - Primary Iron deficiency anemia, unspecified documented in this encounter Care Teams Assistant Winemaker Relationship Specialty Start Date End Date Janis Cuellar MD PCP - General 07/08/01 10/12/19 [address] [place], [place] [phone] documented as of this encounter
--- OUTSIDE RECORDS SUMMARY | 2022-04-25 22:24 | XMS_ITS | Encounter Summary ---
:1985 Author Organization [place] Address [address] [place] [address] Care Team Providers Name Role Phone Janis Cuellar MD Primary Care Provider Reason for Visit Reason Onset Date Comments Results 11/07/2013 anemia Encounter Details Date Type Department Care Team Description 11/07/2013 Telephone [facility] Tracey Cuellar MD Results (anemia) [place] [address] [facility] [address] [place] [address] [place] [address] [phone] Social History Tobacco Use Types Packs/Day Years Used Date Smoking Tobacco: Never Smokeless Tobacco: Never Alcohol Use Standard Drinks/Week Comments Yes 0 (1 standard drink = 0.6 oz pure alcoho l) casual Sex Assigned at Date Recorded Not on file documented as of this encounter Miscellaneous Notes Telephone Encounter - Wanda Geiger RN - 11/08/2013 3:03 PM CDT Pt has appt tomorrow AM for iron. Dr Cuellar sent her my chart message with iron results. Telephone Encounter - Wanda Geiger RN - 11/08/2013 10:18 AM CDT Call to pt and advised. She agrees. She is only available tomorrow after 12:30. Call to Infusion therapy. They only have 8 am available tomorrow, otherwise next week. Call back to Pt and left detailed message to call Infusion to schedule with them directly. Will check appts to make sure this is scheduled. Orders done. Telephone Encounter - Janis Cuellar MD - 11/07/2013 6:05 PM CDT Called and left message about hgb down to 5.5. Also sent results on [facility]. Please call tomorrow about scheduling iron infusion. documented in this encounter Plan of Treatment Not on filedocumented as of this encounter Visit Diagnoses Not on filedocumented in this encounter Care Teams Chlorine Cells Operator Relationship Specialty Start Date End Date Janis Cuellar MD PCP - General 07/08/01 10/12/19 [address] [address] documented as of this encounter
--- OUTSIDE RECORDS SUMMARY | 2022-04-25 22:24 | XMS_ITS | Encounter Summary ---
:1985 Author Organization [place] Address [address] [place] [address] Care Team Providers Name Role Phone Janis Cuellar MD Primary Care Provider Encounter Details Date Type Department Care Team Description 11/08/2013 Orders Only [facility] Janis Cuellar MD Iron (Fe) deficiency Clinic [place] [address] anemia (Primary Dx) [address] [place], [place] [address] [address] [place], [place] [phone] (Wo rk) [address] [phone] Social History Tobacco Use Types Packs/Day Years [...] unspecified documented in this encounter Care Teams Optometric Technologist Relationship Specialty Start Date End Date Janis Cuellar MD PCP - General 07/08/01 10/12/19 [address] [place], [place] [id number] documented as of this encounter
--- OUTSIDE RECORDS SUMMARY | 2022-04-25 22:24 | XMS_ITS | Encounter Summary ---
:1985 Author Organization [place] Address [address] [place] [address] Care Team Providers Name Role Phone Janis Cuellar MD Primary Care Provider Reason for Visit Reason Comments Infusion Venofer Encounter Details Date Type Department Care Team Description 11/15/[address] [facility] Janis Cuellar MD Iron (Fe) deficiency Visit [facility] [address] anemia [facility] [address] [place] [phone] Social History Tobacco Use Types Packs/Day Years Used Date Smoking Tobacco: Never Smokeless Tobacco: Never Alcohol Use Standard Drinks/Week Comments Yes 0 (1 standard drink = 0.6 oz pure alcoho l) casual Sex Assigned at Date Recorded Not on file documented as of this encounter Last Filed Vital Signs Vital Sign Reading Time Taken Comments Blood Pressure 106/81 11/15/2013 9:57 AM CDT Pulse 90 11/15/2013 9:57 AM CDT Temperature 36.7 ??C (98.1 ??F) 11/15/2013 9:57 AM CDT Respiratory Rate 16 11/15/2013 9:57 AM CDT Oxygen Saturation - - Inhaled Oxygen Concentration - - Weight - - Height - - Body Mass Index - - documented in this encounter Progress Notes Lizbeth Go RN - 11/15/2013 9:59 AM CDT Patient tolerated Venofer procedure without incident. Patient discharged in the [...] iron sucrose (VENOFER) 200 mg New Bag 11/15/2013 9:56 AM CDT 200 m g 440 mL/hr in NaCl 0.9 % 100 mL IVPB 200 mg, Intravenous, Administer over 15 Minutes, at 440 mL/hr, ONCE, On [place] 11/15/13 at 0945, For 1 dose, Given at least 48 hours apart. sodium chloride 0.9 % BOLUS 250 mL New Bag 11/15/2013 9:55 AM CDT 250 mLs Intravenous, 250 mL, ONCE, On [place] 11/15/13 at 0945, For 1 dose, Concominate fluids documented in this encounter Care Teams Cone Winder Relationship Specialty Start Date End Date Janis Cuellar MD PCP - General 07/08/01 10/12/19 [address] [facility] 200 [place] [address] documented as of this encounter
--- OUTSIDE RECORDS SUMMARY | 2022-04-25 22:24 | XMS_ITS | Encounter Summary ---
:1985 Author Organization [place] Address [address] [place] [address] Care Team Providers Name Role Phone Janis Cuellar MD Primary Care Provider Reason for Visit Reason Comments Infusion Venofer Encounter Details Date Type Department Care Team Description 11/27/2013 Infusion Therapy [facility] Janis Cuellar MD Iron (Fe) deficiency Visit Cancer Center [address] anemia [facility] [address] [place] [phone] Social History Tobacco Use Types Packs/Day Years Used Date Smoking Tobacco: Never Smokeless Tobacco: Never Alcohol Use Standard Drinks/Week Comments Yes 0 (1 standard drink = 0.6 oz pure alcoho l) casual Sex Assigned at Date Recorded Not on file documented as of this encounter Last Filed Vital Signs Vital Sign Reading Time Taken Comments Blood Pressure 96/68 11/27/2013 10:15 AM CDT Pulse 89 11/27/2013 10:15 AM CDT Temperature 36.7 ??C (98.1 ??F) 11/27/2013 10:15 AM CDT Respiratory Rate 16 11/27/2013 10:15 AM CDT Oxygen Saturation - - Inhaled Oxygen Concentration - - Weight - - Height - - Body Mass Index - - documented in this encounter Progress Notes Lizbeth Go RN - 11/27/2013 11:20 AM CDT Patient tolerated last venofer in series without incident. Patient discharged in the care of self. Patient aware of next appointment with . documented in this encounter Plan of Treatment Not on filedocumented as of this encounter Visit Diagnoses Diagnosis Iron (Fe) deficiency anemia Iron deficiency anemia, unspecified documented in this encounter Administered Medications Inactive Administered Medications - up to 3 most recent administrations Medication Order MAR Action Action Date Dose Rate Site iron sucrose (VENOFER) 200 mg New Bag 11/27/2013 9:57 AM CDT 200 m g 440 mL/hr in NaCl 0.9 % 100 mL IVPB 200 mg, Intravenous, Administer over 15 Minutes, at 440 mL/hr, ONCE, On Tue11/27/13 at 0945, For 1 dose, Given at least 48 hours apart. sodium chloride 0.9 % BOLUS 250 mL New Bag 11/27/2013 9:57 AM CDT 250 mLs Intravenous, 250 mL, ONCE, On Tue11/27/13 at 0945, For 1 dose, Concominate fluids documented in this encounter Care Teams Candle Wicker Relationship Specialty Start Date End Date Janis Cuellar MD PCP - General 07/08/01 10/12/19 [address] [facility] 200 [place] [address] documented as of this encounter
--- OUTSIDE RECORDS SUMMARY | 2022-04-25 22:24 | XMS_ITS | Encounter Summary ---
:1985 Author Organization [facility] Address [address] [place] [id number] Care Team Providers Name Role Phone Janis Cardona MD Primary Care Provider Reason for Visit Reason Comments Allergic Reaction Auth/Cert - Closed Specialty Diagnoses / Procedures Referred By Contact Refer red To Contact Diagnoses Orthostatic hypotension Chronic blood loss anemia GIB (gastrointestinal bleeding) Dizziness - light-headed [id number] deficiency [id number] iron deficiency anemia Rh 5 Medical Surgical Procedures COMBINED ESOPHAGOSCOPY, GASTROSCOPY, DUODENOSCOPY (EGD) [address] [place], [place] [address] Phone: Fax: Referral ID Status Reason Start Date Expiration Date Visits Requ ested Visits Authorized Closed 07/25/2012 01/21/2013 Encounter Details Date Type Department Care Team Description 07/25/2012 Surgery [facility] Ha Romero, eso phagoscopy,gastrosco Endoscopy [place] DO py,duodenoscopy with [address] DC GASTROENTEROLOGY bx's [place], [place] [address] [id number] [address] [place] [address] (Wo rk) Surgery Details Date/Time Status Location OR Service Patient Case Case Traum a Class Class Type Case? 07/25/12 9:00 Posted GI GI B Gastroenterology Inpatient AM Panel 1 Procedure LRB Anes Op Region Wound Class Commen ts esophagoscopy,gastros N/A Conscious Sedation Mouth esophagoscopy,gastr copy,duodenoscopy oscopy, duodenoscopy with bx's with bx's Surgeon Surgeon Role Service Panel Ha Romero DO Primary Gastroenterology 1 documented in this encounter Social History Tobacco Use Types Packs/Day Years Used Date Smoking Tobacco: Never Smokeless Tobacco: Never Alcohol Use Standard Drinks/Week Comments Yes 0 (1 standard drink = 0.6 oz pure alcoho l) casual Sex Assigned at Date Recorded Not on file documented as of this encounter Last Filed Vital Signs Vital Sign Reading Time Taken Comments Blood Pressure 81/57 07/25/2012 9:30 AM RIGGING SLINGER Pulse 133 07/24/2012 7:10 PM [facility] SLING[facility] Temperature 36.7 ??C (98.1 ??F) 07/25/2012 7:00 AM RIGGING SLINGER Respiratory Rate 11 07/25/2012 9:30 AM RIGGING SLINGER Oxygen Saturation 99% 07/25/2012 9:30 AM RIGGING SLINGER Inhaled Oxygen Concentration - - Weight 55.8 kg (123 lb) 07/24/2012 7:10 PM RIGGING SLINGER Height 172.7 cm (5' 8) 07/25/2012 12:40 AM RIGGING SLINGER Body Mass Index 18.7 07/24/2012 7:10 PM RIGGING SLINGER documented in this encounter Discharge Summaries Ginna Vyas MD - 07/26/2012 1:37 PM CST PRIMARY CARE PHYSICIAN: Dr. Janis Cardona. ADMISSION DIAGNOSIS: Lightheadedness and dizziness, and shortness of breath. DISCHARGE DIAGNOSES: 1. Probable mild iron infusion reaction. 2. Underlying iron deficiency anemia. 3. Mildly prolonged INR. PROCEDURES DURING THIS HOSPITALIZATION: 1. Gastrointestinal consultation. 2. Upper GI endoscopy showing a normal esophagus, focal area of erythematous gastropathy, normal duodenum. 3. Celiac serologies are ordered, but are still pending at this time. 4. Gastric biopsy is also pending at this time. 5. Transfusion of a single unit of PRBCs. HOSPITAL COURSE: Ms. Estefania Mckeon is a 27-year-old female with a longstanding history of iron deficiency anemia. She apparently was transfused a couple of years ago, then last to follow up due toinsurance issues, presented back to her primary physician back in March and was noted to have a he moglobin at 6. Iron studies looked most consistent with iron deficiency anemia, she was given a transfusion and was then to have further followup. She has subsequently been seen 4 days prior to this admission by Dr. Cardona who was noted that she remains iron deficient. She has borderline TSH, but a normal free T4 and she was initiated on IV iron. She received 500 mg of Venofer in the outpatient settingand after discharge from receiving the transfusion, she started to feel lightheaded and short of breath to the point that it prompted her to come into the emergency room for evaluation. In the emergency room, she actually received a dose of IV Benadryl, which made her symptoms worse, but those symptoms have subsequently resolved. I did discuss the case with Dr. Khushbu Sandy of Hematology and she suspects that she had a mild iron reaction and it is not uncommon, especially in females who are thin. Recommendation would be at the next iron administration, should be done with a smaller dose, say 100-200mg. I did discuss this with Estefania as well. Iron deficiency anemia without overt bleeding. She did have an endoscopy that did not show an ulcer.She had just have focal areas of erythematous gastropathy, so I will give her a month's worth of PPItherapy. Guaiac was done in the ER, which was positive, and so GI was consulted and they recommendedoutpatient colonoscopy for evaluation. For specific, she denies any epistaxis, gingival bleeding, black, tarry, bloody stools, hematemesis or heavy periods. She has no significant bruising either. Thishas been a longstanding issue for her, at least for the past 3-4 years. She does feel somewhat symptomatic with it, is getting short of breath with exertion and feeling just generalized fatigue. It should also be noted that she states that she eats a diet that is rich in animal protein, so dietary malnutrition seems unlikely, although she is rather thin. Certainly malabsorption may be a component of it and she will follow up with GI in regards to that. Because she was still symptomatic and she was mildly hypotensive and somewhat tachycardic, I gave her a single unit of PRBCs during this hospitalization, and she states that she is feeling significantly better, therefore I will discharge her for followup with her outpatient physician. DISCHARGE MEDICATIONS: NEW MEDICATIONS: Pantoprazole 40 mg p.o. daily for 1 week. DISCHARGE EXAMINATION: VITAL SIGNS: Blood pressures are in the 90s to 1-teens/50s-60s, heart rate is in the 80s-100s, respiratory rate is 16, sats are 100% on room air and she is afebrile at 98.1 degrees. GENERAL: This is pleasant female. She is in no acute distress. She looks her stated age. HEENT: Head is normocephalic, atraumatic. Sclerae are clear. RESPIRATORY: Lungs are clear to auscultation. She exhibits normal respiratory effort. CARDIOVASCULAR: Heart is of a regular rate and rhythm without murmurs, rubs or gallops. GASTROINTESTINAL: Abdominal exam is soft, nontender, nondistended. EXTREMITIES: Lower extremities are without edema. SKIN: Warm and dry and there is no cyanosis or clubbing of the extremities. DISCHARGE INSTRUCTIONS: 1. She is discharged home in satisfactory condition. 2. I have asked that she follow up with her primary care physician, Dr. Janis Cardona for recheck in 10-14 days. At that visit, recommendations can be made regarding additional iron replacement therapy, ifindeed she requires more, which seems likely. Hematology recommendation would be to use lower dose based on her size and her iron transfusion reaction. 3. [facility], Dr. Ha Romero, will follow up with the patient regarding getting set up for colonoscopy as well as followup of duodenal biopsies and celiac serologies. Note that 25 minutes was spent on this discharge, of which greater than 50% of the time was spent incoordination of care. GINNA VYAS MD MT: [id number] Name: ESTEFANIA MCKEON MRN: [id number] Account: [id number] : 1985 Admit Date: Discharge Date: Document: [id number] cc: Ha Romero MD documented in this encounter Discharge Instructions Discharge InstructionsBabita Breann Natalie - 07/26/2012 1:58 PM CST Images from the original note were not included. Home Back SP ANEMIA, Iron Deficiency [Adult] Anemia is a condition where the size or number of red blood cells in the body is reduced. Iron is needed in the diet to make red cells. The red blood cells carry oxygen to all parts of the body. Anemialimits the delivery of oxygen to where it is needed. This causes a feeling of being tired and run down. When anemia becomes severe, the skin becomes pale and there is shortness of breath with exertion,headaches, dizziness, drowsiness and fatigue. The cause of your anemia is lack of iron in your body. This may occur due to blood loss (for example, heavy menstrual periods or bleeding from the stomach or intestines) or a poor diet (not eating enough iron-containing foods), inability to absorb iron from your diet, or . If the blood count is low enough, an IRON SUPPLEMENT will be prescribed. It usually takes about 2-3 months of treatment with iron supplements to correct an anemia. Severe cases of anemia requires a blood transfusion to rapidly correct symptoms and deliver more oxygen to the cells. HOME CARE: 1) Increase the iron stores in your body by eating foods high in iron content. This is a natural wayof building your blood cells back up again. Beef, liver, spinach and other dark green leafy vegetables, whole grain products, beans and nuts are all natural sources of iron. 2) If you are having symptoms of anemia listed above: -- Do not overexert yourself. -- Talk to your doctor before flying on an airplane or traveling to high altitudes. FOLLOW UP with your doctor in 2 months for a repeat red blood cell count, or as recommended by our staff, to be sure that the anemia has been corrected. GET PROMPT MEDICAL ATTENTION if any of the following occur or worsen: -- Shortness of breath or chest pain -- Dizziness or fainting -- Vomiting blood or passing red or black-colored stool ?? [id number] [facility], [address] [place] [address], [place] [address]. All rights reserved. This information is not intended as a substitute for professional medical care. Always follow your healthcare professional's instructions. ING SLINGER documented in this encounter Medications at Time of Discharge Medication Sig Dispensed Refills Start Date End Date pantoprazole (PROTONIX) Take 1 tablet by 30 tablet 0 201206/18/2013 40 MG enteric coated mouth every morning tabletIndications: Iron (before breakfast). deficiency anemia documented as of this encounter Progress Notes Clay Palmer MD - 07/27/2012 11:44 AM CST Breann Cuevas - 07/26/2012 2:05 PM CST Reviewed discharge orders with the patient. Medication orders were reviewed and instructions given as to the frequency to take each med, along with when last medication was given. Patient belongings sent with patient. Patient instructed to follow up with primary physican with any further questions they may have. Patient states they understand discharge orders as they are written and has no questions. Prescription for protonix sent with patientper patient request. OBSERVATION patient END time: 1410 Ginna Suh MD - 07/25/2012 2:31 PM CST [facility] Hospitalist Progress Note Interval History: Continues to feel dizzy and lightheaded, sob with exertion, and overall fatigued. EGD showed focal gastropathy without overt bleeding. Chronic anemia, although symptoms seemed dramatically worse over past 7-10 days. rec'd IV iron yesterday but states still feeling pootly Medications: I have reviewed this patient's current medications Physical Exam: Blood pressure 91/51, pulse 133, temperature 98.1 ??F (36.7 ??C), temperature source Oral, resp. rate 16, height 1.727 m (5' 8), weight 55.792 kg (123 lb), last menstrual period 07/03/2012, SpO2 100.00%, not currently . Young f nad looks stated age head nc/at ashen/pale appearance, lungs ctab nl effort CV tachy RRR no overt m/r/g no le edema skin w/d no c/c abd s/nt/nd Data: Recent labs, imaging, and other studies were reviewed. Assessment and Plan: 27 yo f with longstanding anemia lost to f/u presents with persistent and symptomatic anemia-iron deficient of unclear etiology 1. Anemia: 3-4 year history of this. KZEIA now and at previous diagnosis. Intolerant to oral Fe so primary MD initiated IV Fe which was started 07/24/12. Came to ER b/c of generalized fatigue/cordova/presyncope symptoms. All sx seem consistent with anemia-also with signs included hTN and tachycardia-will trans fuse single unit tonight and recheck in am and consider add'l units depending on results 2. KEZIA: No history of significant vaginal bleeding, guiac + but no overt GI bleeding. EGD not significantly remarkable except for focal area of gastropathy- cont ppi for now. GI will arrange for outpatient colonoscopy once discharged. ? Nutritional component PPX: PCDs Code: Full Dispo: Home tomorrow ING SLINGER documented in this encounter H&P Notes Janie Guillaume RN - 07/25/2012 5:16 PM CST 1 unit blood started at 1715. BP 89/53 Pulse 133 Temp(Src) 98.3 ??F (36.8 ??C) (Oral) Resp 16 Ht 1.727 m (5' 8) Wt 55.792 kg (123 lb) BMI 18.70 kg/m2 SpO2 100% LMP 07/03/2012 ? No ING SLINGER Clay Palmer MD - 07/25/2012 12:15 AM CST CHIEF COMPLAINT: Ms. Mckeon is a 27-year-old woman with a history of iron deficiency anemia. HISTORY OF PRESENT ILLNESS: She reports she was initially diagnosed with this about 3 or 4 years agowhen her hemoglobin was found to be 4. She reports her normal hemoglobin is in the 7 range historically. She has been lost to followup over the past several years because of lack of insurance; however,she recently saw Dr. Cardona when she regained insurance. In the clinic, Dr. Cardona checked hemoglobin 3 days ago which was found to be 7.5. Also checked further anemia workup. This included a ferritin thatwas 4, serum are less than 10, TIBC of 525, which is elevated and iron saturation index of less than2. She was also found to have a TSH that was low at 0.15 and a free T4 was 1.07. The patient has been poorly tolerant of oral iron in the past and Dr. Cardona started her on iron transfusion therapy. She got her first dose today, but did not feel well afterwards and felt somewhat lightheaded and a bit short of breath which prompted her appearance here in the Emergency Department. In the ER, vital signs included blood pressure was initially 120/65. She was afebrile, heart rate 105, respiratory rate 16. She did become hypotensive in the ER with a blood pressure 83/70, but has rebounded with fluids. Workup in the ER included basic labs notable for hemoglobin of 8.5. MCV was 63. Platelet count was 331. White cell count 12.9. INR 1.17, PTT 39. Guaiac stool was positive without anygross blood or melena. Lipase was normal. The patient states that apparently she has seen a pbx mechanic in the distant past. It sounds like she may have been evaluated by a professional soccer player one point as well. She has never seen a bulldozer/loader/compactor/scraper and never had any endoscopy studies performed. She states she has minimal menses, with minimal flow when they do occur. Her last period was 1 month ago and at that point she was bleeding for about 3 days. The first day she used 4-5 pads, but the next day she used 1 pad a day. PAST MEDICAL HISTORY: 1. Status post appendectomy. 2. History of nephrolithiasis. 3. Iron deficiency anemia as detailed above. Lost to follow up recently but now has insurance and isfollowed by Dr. Cardona in the clinic. CURRENT MEDICATIONS: Ibuprofen as needed. She takes it on a daily or every other day basis. DRUG ALLERGIES: Amoxicillin. FAMILY HISTORY: Crohn's disease in her mother. Diabetes in her father. SOCIAL HISTORY: The patient denies any smoking or drinking. 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 REVIEW OF SYSTEMS: Please see HPI for details. Comprehensive 10-point review of systems otherwise negative besides as detailed above. The patient has not noticed any hematochezia, no melena. Scant menses as described above. PHYSICAL EXAMINATION: VITAL SIGNS: Blood pressure is currently 100/60, heart rate 80, temperature 99 degrees and saturation 98% on room air. GENERAL: The patient appears pale-looking. She is awake, alert and oriented x3. She is nontoxic. HEENT: Head is atraumatic. Sclerae are white. Eyelids are normal. Conjunctivae pale. Extraocular movements are intact. NECK: Supple. No cervical or supraclavicular lymphadenopathy. HEART: Regular rate and rhythm. No significant murmurs. No lower extremity edema. LUNGS: Clear to auscultation bilaterally. No intercostal retractions. No conversational dyspnea. ABDOMEN: Nontender, nondistended. Soft. No masses. No hepatosplenomegaly. EXTREMITIES: No edema. SKIN: Reveals no rash. No jaundice. Skin is dry to touch. NEUROLOGIC: Cranial nerves are intact. Moves all extremities appropriately. Sensation intact to light touch in upper and lower extremities bilaterally. PSYCHIATRIC: The patient awake, alert and oriented x3. Mood and affect are normal and appropriate for the situation. LABORATORY DATA: Hemoglobin 8.5. MCV is 63. Platelet count normal. White cell count 12.9. PTT is 39,INR is 1.17. Stool guaiac is positive. Recent labs detailing iron studies as noted above. These are done 3 days ago in her primary MD office. IMPRESSION AND PLAN: Ms. Mckeon is a 27-year-old female with apparently history of ongoing iron deficiency anemia. States she was diagnosed 3-4 years ago but was lost to followup until recently. She comes to the hospital today for concerns about development of some lightheadedness and shortness of breath after iron infusion. These symptoms seemed to have resolved. ER workup notable for presence of positive stool guaiac and microcytic anemia. PLAN: 1. Admit to hospitalist service. 2. Repeat CBC in the morning. 3. Gastrointestinal consultation to assist with workup. Consider inpatient workup versus close follow-up as an outpatient per discretion of GI. Note, the patient is on ibuprofen and in part this could explain her positive guaiac. 4. Empiric proton pump inhibitor. 5. IV fluids. 6. Repeat CBC in the morning. Anticipate her hemoglobin may drop with hemodilution. 7. The patient appears appropriate for the floor. For now we will hold off on blood transfusion issue as she states her normal hemoglobin is near 7 and currently she is 8.5, but in light of her positive stool guaiac and hypotension, agree with at least observation admission for now with reassessment hemoglobin in the morning and GI consultation. Of note, her INR is slightly high and PTT are slightly high. We will give vitamin K tonight and repeat dose in the morning. May be nutritional related. CLAY PALMER MD MT: [id number] Name: ESTEFANIA MCKEON MRN: [id number] Account: [id number] : 1985 Admitted: [id number] Document: [id number] ING SLINGER documented in this encounter Consult Notes Judit Nuno RD, LD - 07/25/2012 12:38 PM CST NUTRITION ASSESSMENT NOTE REASON FOR ASSESSMENT Screen (wt loss of 3.3 kg in the last month) Nutrition History Per the pt, she has lost wt over the past month, but she is not sure as to why. She states she has not been eating differently and she has not been exercising more. There is really no reason for the wtloss. She also admits to being a thin person in general with a usual body wt around 59.1 kg. She hashad issues with anemia for awhile and she trialed supplements and IV iron, but these did not sit well with her. She has not followed with a GI MD prior to this admission. She admits to constipation andshe states she has a family history of inflammatory bowel dz. CURRENT DIET AND NOURISHMENT ORDER Diet: Regular Current Intake/Tolerance: Fair to good intake noted. She ordered a pizza and soda for lunch and was doing well with it. Factors Affecting Nutrition Intake: Abdominal pain PHYSICAL FINDINGS Abdominal pain was a 5, but is now improved No BM since admission. Anthropometrics Height: 68 Weight 55.8 kg Body mass index is 18.70 kg/(m^2). %IBW: 88% Weight History: Wt Readings from Last 5 Encounters: 07/24/12 55.792 kg (123 lb) 07/24/12 55.792 kg (123 lb) 07/21/12 56.065 kg (123 lb 9.6 oz) 06/08/12 58.922 kg (129 lb 14.4 oz) 08/18/11 60.147 kg (132 lb 9.6 oz) She has lost about 3.3 kg in the last month. Dosing Weight: 55.8 kg (actual body wt) LABS Noted MEDICATIONS Noted PROCEDURES WITH NUTRITIONAL IMPLICATIONS EGD: bx to r/o celiac sprue Colonoscopy in a few weeks. ASSESSED NUTRITION NEEDS: Estimated Energy Needs: 3777-8753 kcals/day (30-35 kcals/kg) - Increased for wt repletion Estimated Protein Needs: 65-85 gms/day (1.2-1.5 gms/kg) - Increased for repletion Estimated Fluid Needs (1 mL/kcal) or per MD goals for fluid balance NUTRITION DIAGNOSIS Unintended wt loss R/t anemia and abdominal pain AEB wt loss of 3.3 kg in the last month. INTERVENTIONS Nutrition Prescription: Recommended pt consume a regular diet until a confirmed dx could be confirmed. If celiac dz is +, would then follow a gluten free diet. If inflammatory bowel disease is present, would recommend a low fiber diet. Pt encouraged to trial supplements such as [place] Instant Breakfast if wt loss continues. Implementation Meals and Snacks - Encouraged smaller, frequent meals. Nutrition Education (Content) - Provided written ifno on anemia, good food sources for iron and to combine intake with a Vitamin C source to increase uptake of iron. She has also been given info on constipation, increasing kcal/protein and anorexia and wt loss. Expect fair to good compliance. Name and number provided. Goals PO to be greater than 75% of meals. No wt loss beyond 55.8 kg. Follow up/Monitoring Fluid and Beverage intake - Monitor intake and tolerance. Weight Change - Monitor for further wt loss. Gastrointestinal Profile - Monitor stooling. Judit Nuno RD, LD Clinical Dietitian ING SLINGER Ha Romero DO - 07/25/2012 8:59 AM CSTAssociated Order(s): GASTROENTEROLOGY IP CONSULT GASTROENTEROLOGY CONSULTATION Estefania Mckeon [id number] [place] [id number] 27 year old female Admission Date/Time: 07/24/2012 Primary Care Provider: Janis Cardona Referring / Attending Physician: Spencer We were asked to see the patient in consultation by Dr. Palmer for evaluation of KEZIA, +FOBT. ASSESSMENT: -Chronic KEZIA without overt GI bleeding. -Inappropriately performed colon cancer screening test (via [facility] in the ED) which was positive. -Frequent NSAID use -FH of Crohn's disease in Mother Of note, appears to be overdue for follow up pap smear after abnormal (ASCUS) July 2011. RECOMMENDATIONS: -EGD today, with duodenal biopsies to evaluate for celiac disease. -Regardless of EGD findings, the patient will need colonoscopy, which will be arranged as an outpt given the lack of overt GI bleeding. -Follow up pap smear with PCP given ASCUS in July 2011. Please see the EGD note to follow with further recs. Ha Romero DO [facility], [place] Addendum: Please encourage pt to avoid NSAIDs prior to colonoscopy. CC: Lightheaded after iron infusion HPI: Estefania Mckeon is a 27 year old female who has a chronic KEZIA dating back at least 3-5 years.She denies visible blood loss, menorrhagia (intermittent periods, lasting no more than 3 days), or blood donation. She has previously been evaluated by heme, and pt recalls discussion, but no formal recommendation for GI evaluation. She has no specific complaints at this time. She does have brown stools that are difficult to pass -about 1-2 times a week. Approximately twice a month she has some liquid stools, and maybe twice a week she has momentary lower abd pain that does not radiate, characterized as a crampy sensation. No significant changes in bowel habits with po intake. She does take advil for headaches. Takes about 600mg at least qod. Denies other NSAIDs or smoking. She denies wt loss or vomiting. ROS: A comprehensive ten point review of systems was negative aside from those in mentioned in the HPI. PAST MEDICAL HISTORY: Patient Active Problem List Diagnosis Date Noted ??? Iron deficiency anemia 07/25/2012 ??? Iron (Fe) deficiency anemia ??? 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 ASCUS on Pap smear 08/18/2011 08/18/11 ASCUS dx pap. Await HPV. Per OV notes, hx of abnormal pap (unsure of abnormality) HPV negative. To for review. Repeat pap 6 months ??? CARDIOVASCULAR SCREENING; LDL GOAL LESS THAN 160 03/22/2010 ??? IRON DEFIC ANEMIA NOS 03/17/2007 SOCIAL HISTORY: History Substance Use Topics ??? Smoking status: Never Smoker ??? Smokeless tobacco: Never Used ??? Alcohol Use: Yes casual FAMILY HISTORY: Family History Problem Relation Age of Onset ??? Diabetes Father ??? Hypertension Father ??? Lipids Father ??? Hypertension Mother ??? Lipids Mother high triglycerides ??? Hypertension Maternal Grandmother ??? GI Maternal Grandmother Crohns ??? Hypertension Maternal Grandfather ??? C.A.D. Maternal Grandfather ??? Genitourinary () Paternal Grandfather Kidney stones ??? Muscular Maternal Uncle ??? Neurological Paternal Aunt ??? Diabetes Paternal Aunt ??? Diabetes Paternal Uncle ??? Asthma Paternal Aunt ALLERGIES: Allergies Allergen Reactions ??? Benadryl (Altaryl) Palpitations ??? Amoxicillin Hives MEDICATIONS: Current Facility-Administered Medications Medication ??? sodium chloride (PF) 0.9% PF flush 3 mL ??? sodium chloride (PF) 0.9% PF flush 3 mL ??? acetaminophen (TYLENOL) tablet 650 mg ??? acetaminophen (TYLENOL) suppository 650 mg ??? naloxone (NARCAN) injection 0.1-0.4 mg ??? 0.9 % sodium chloride IV solution ??? zolpidem (AMBIEN) tablet 5 mg ??? ondansetron (ZOFRAN-ODT) disintegrating tablet 4 mg Or ??? ondansetron (ZOFRAN) injection 4 mg ??? pantoprazole (PROTONIX) EC tablet 40 mg ??? DISCONTD: ondansetron (ZOFRAN) tablet 4 mg ??? sodium chloride 0.9 % BOLUS 1,000 mL ??? methylprednisoLONE sodium succinate (Solu-MEDROL) injection 125 mg ??? diphenhydrAMINE (BENADRYL) injection 25 mg ??? pantoprazole (PROTONIX) 40mg IV push injection ??? sodium chloride 0.9 % BOLUS 1,000 mL ??? DISCONTD: sodium chloride (PF) 0.9% PF flush 3 mL ??? DISCONTD: sodium chloride (PF) 0.9% PF flush 3 mL ??? DISCONTD: sodium chloride (PF) 0.9% PF flush 3 mL ??? DISCONTD: sodium chloride (PF) 0.9% PF flush 3 mL ??? DISCONTD: ondansetron (ZOFRAN) injection 4 mg Facility-Administered Medications Ordered in Other Encounters Medication ??? diphenhydrAMINE (BENADRYL) capsule 25 mg ??? acetaminophen (TYLENOL) tablet 650 mg ??? iron sucrose (VENOFER) 500 mg in NaCl 0.9% 250 mL IVPB ??? sodium chloride 0.9 % BOLUS 250 mL PHYSICAL EXAM: BP 97/62 Pulse 133 Temp(Src) 98.1 ??F (36.7 ??C) (Oral) Resp 16 Ht 1.727 m (5' 8) Wt 55.792 kg (123 lb) BMI 18.70 kg/m2 SpO2 99% LMP 07/03/2012 ? No GEN: Alert, oriented x3, communicative and in NAD. BLAKE: AT, anicteric, OP without erythema, exudate, or ulcers. NECK: Supple. LYMPH: No LAD noted. HRT: RRR LUNGS: CTA ABD: ND, +BS, no guarding or pain to palpation, no rebound, no HSM. SKIN: No rash, jaundice or spider angiomata MSKL: LE free of edema, strength 5/5 all 4 extrems NEURO: CN grossly intact, sensation intact to light touch, toes downgoing. ADDITIONAL DATA: I reviewed the patient's new clinical lab test results. Recent Labs Lab Test 07/25/12 0635 07/24/12 1948 07/21/12 0924 06/01/07 1805 WBC 5.8 12.9* 4.0 -- HGB 7.0* 8.5* 7.5* -- MCV 65* 63* 64* -- PLT 320 331 280 -- INR 1.18* 1.17* -- 1.00 Recent Labs Lab Test 07/24/12194707/21/1292304/18/12 03/02/10 0600 POTASSIUM 3.5 4.5 3.4 -- CHLORIDE 106 104 -- 107 CO2 23 24 -- 23 BUN 7 9 -- 9 ANIONGAP 8 10 -- 9 GLUCOSE -- -- -- -- Recent Labs Lab Test 07/24/12194707/21/1292306/08/12 1235 08/17/11 1640 02/28/10 2239 08/31/08 1650 ALBUMIN 3.9 4.3 -- -- -- 4.2 BILITOTAL 0.7 0.6 -- -- -- 0.4 BILIDIRECT -- -- -- -- -- -- ALT 25 26 -- -- -- 16 AST 19 20 -- -- -- 29 PROTEIN -- -- Negative Negative Negative -- LIPASE 64 -- -- -- -- -- AMYLASE -- -- -- -- -- -- I reviewed the patient's new imaging results. ING SLINGER documented in this encounter Nursing Notes Lory Rojas RN - 07/25/2012 10:20 AM CST EGD report called to Breann RODRIGUEZ on 5th floor/WW ING SLINGER documented in this encounter ED Notes Kathleen Henley RN - 07/24/2012 11:37 PM CST Patient denies any pain complains feeling tired. Voices no needs at this time. ING SLINGER Louisa Vickers RN - 07/24/2012 8:25 PM CST After giving IV Benadryl, pt's heart rate increased from 82 to 137. States that she feels light headed and very similar to when she was at the clinic. No history of a benadryl allergy. MD notified. ING SLINGER Kathleen Henley RN - 07/24/2012 8:10 PM CST Patient resting, denies any pain or SOB, complains of feeling tired. Voices no needs at this time. NSR on monitor. ING SLINGER Kathleen Henley RN - 07/24/2012 7:48 PM CST Labs drawn with IV insertion and sent ING SLINGER Jr Martínez MD - 07/24/2012 7:16 PM CST History Chief Complaint: Lightheadedness, Dizziness, and Weakness MELLY Mckeon is a 27 year old female with a history of kidney stones and iron deficiency anemiawho presents with lightheadedness, dizziness, and weakness following an iron transfusion. The patient states today she had her first iron transfusion (at [facility]) for idiopathic anemia as anoutpatient. She states when she left she felt lightheaded and dizzy. She notes on her way home, she has developed a pink rash to her hands. She states by the time she got home, she developed arthralgias and joint swelling. She states when she laid on her couch at home, she felt lightheaded without standing. She notes she is now short of breath, and she reports chest wall pain with inspiration. She states she is scheduled to undergo further infusions on Tuesday. She notes her stools are normally dark, but denies any true black or bloody stools. She notes she was told 3 days ago that my thyroid isshutting down, but states she has not begun medication for this. She denies any hematemesis, hematuria, menstrual problem, vaginal bleeding, fevers, or any other complaints. Allergies: Amoxicillin - hives Medications: Ibuprofen Past Medical History: Calculus of kidney Iron deficiency anemia Bicornuate uterus Past Surgical History: Appendectomy Removal of stone through cystoscopy Family History: Family history is significant for diabetes, hypertension, lipid disorder, Crohn's disease, CAD, and asthma Marital Status: Single Social History: Patient denies tobacco use Patient admits to social alcohol use Patient denies recreational drug use Patient presents to the ED with her mother and niece Review of Systems Constitutional: Negative for fever. Respiratory: Positive for shortness of breath. Cardiovascular: Positive for chest pain. Gastrointestinal: Negative for vomiting and blood in stool. Genitourinary: Negative for dysuria, vaginal bleeding and menstrual problem. Musculoskeletal: Positive for joint swelling and arthralgias. Skin: Positive for rash (pink to hands). Neurological: Positive for dizziness and light-headedness. All other systems reviewed and are negative. Physical Exam First Vitals: BP: 83/70 mmHg Pulse: 133 Temp: 99 ??F (37.2 ??C) Resp: 20 Weight: 55.792 kg (123 lb) SpO2: 100 % Orthostatic Vitals 1: Lying: BP 98/71, HR 93 Sitting: BP 108/79, HR 115 Orthostatic Vitals 2: Lying: BP 87/59, HR 85 Sittin/66, HR 97 Standin/69, HR 113 Patient Vitals for the past 24 hrs: BP Temp Temp src Pulse Resp SpO2 Weight 07/24/12 2300 99/63 mmHg - - - - 99 % - 07/24/12 2230 94/51 mmHg - - - - 100 % - 07/24/12 2200 88/59 mmHg - - - - 100 % - 07/24/12 215 89/69 mmHg - - - 22 100 % - 07/24/12 2151 101/66 mmHg - - - 16 100 % - 07/24/12 2150 87/59 mmHg - - - 16 100 % - 07/24/12 2130 96/58 mmHg - - - - 94 % - 07/24/12 2100 92/64 mmHg - - - - 100 % - 07/24/12 2030 98/74 mmHg - - - - 100 % - 07/24/122000 108/79 mmHg - - - 20 100 % - 07/24/121999 98/71 mmHg - - - 16 100 % - 07/24/12 1910 83/70 mmHg 99 ??F (37.2 ??C) Temporal 133 20 100 % 55.792 kg (123 lb) Physical Exam Nursing note and vitals reviewed. Constitutional: She is oriented to person, place, and time. She appears well- developed and well-nourished. HENT: Head: Normocephalic. Right Ear: External ear normal. Left Ear: External ear normal. Nose: Nose normal. Mouth/Throat: Oropharynx is clear and moist. Eyes: EOM are normal. Pupils are equal, round, and reactive to light. Conjunctival pallor Neck: Normal range of motion. Neck supple. No JVD present. Cardiovascular: Normal rate, regular rhythm, normal heart sounds and intact distal pulses. No murmur heard. Pulmonary/Chest: Effort normal and breath sounds normal. No stridor. No respiratory distress. She has no wheezes. She has no rales. Abdominal: Soft. Bowel sounds are normal. She exhibits no distension and no mass. There is no tenderness. There is no rebound and no guarding. Genitourinary: No stool in rectal vault. Tender anterior mass palpated on rectal exam. Musculoskeletal: Normal range of motion. She exhibits no edema and no tenderness. Lymphadenopathy: She has no cervical adenopathy. Neurological: She is alert and oriented to person, place, and time. She has normal reflexes. No cranial nerve deficit. She exhibits normal muscle tone. Coordination normal. Skin: Skin is warm and dry. No rash noted. No erythema. There is pallor. Psychiatric: She has a normal mood and affect. Her behavior is normal. Judgment normal. Emergency Department Course ECG (1999): Indication: Anemia Findings: Normal sinus rhythm, ventricular rate 96 bpm. [place] Interval: 114 ms QRS Duration: 82 ms QT/QTc: 368/464 ms R wave axis: 85 Time EKG Read: 2009 Imaging: XR chest portable: Negative. Preliminary reading per Dr. Jr Martínez. Laboratory: CBC: WBC 12.9 (high), HGB 8.5 (low), HCT 29.9 (low), neutrophils 85.9 (high), lymphocytes 8.0 (low),o/w WNL (PLT 331) CMP: WNL (CR 0.67) INR: 1.17 (high) PTT: 39 (high) Lipase: 64 (WNL) Occult blood stool: Positive (abn) Interventions: Normal Saline 1.0 IV bolus x2 Solu-Medrol 125mg IV injection Benadryl 25mg IV injection Protonix 40 mg IV injection Zofran 4mg IV injection Emergency Department Course: I reviewed the patient's medical record. The patient was placed on a continuous urologist md and pulse oximeter. IV inserted. 1921 The patient was seen and examined by myself. I discussed the course of care with the patient including laboratory and diagnostic studies. She understands and is agreeable to the plan. 2146 Recheck. I discussed the laboratory and radiology results with the patient and she understands.The patient is still orthostatic. I ordered an additional bolus of fluids. 2235 Recheck. The patient is still significantly symptomatic. The patient will be admitted to the hospital under the care of Dr. Palmer for further evaluation and treatment. The patient was aware of this plan and was in agreement. All questions were answered prior to transfer to the admitting floor. [address] Clay Palmer regarding history, care and management of this patient and he agreed to accept the patient to his service. Impression & Plan Medical Decision Making: This is a 27 year old female with a history of kidney stones, chronic recurrent iron deficiency anemia requiring previous blood and iron transfusions. She presents following an iron transfusion at [facility] today. She stated that she was given pretreatment with Benadryl. She felt lightheaded, generalized weakness, swelling of her fingers, and respiratory difficulty following her transfusion. She denies overt black or bloody stools, but states she has had dark bowel movements and has chronic constipation. She appears pale and is found to have hypotension and tachycardia upon presentation. She was treated with IV fluids, antiemetics, and a comprehensive evaluation as noted above. She has chronic anemia with persistent anemia today. Secondary to her symptomatic anemia and her evidenceof GUAIAC positive stools today, I felt that further evaluation and consultation with GI was most appropriate. She did respond poorly to an administration of Benadryl, at which point she became lightheaded, tachycardic, and dizzy in the ER. These symptoms were transient and resolved with IV fluids. I feel that she needs further evaluation of her GI blood loss. She reports that she takes Motrin on a regular basis, and I recommended discontinuation of this medication and initiation of a proton pump inhibitor. She was admitted in stable condition to the hospitalist service, and will be further cared for as described. Final Diagnosis: 1. Acute on chronic anemia (known Iron deficiency with ? GI bleeding) 2. Possible reaction to Benadryl given pretreatment preceding iron infusion today 3. Orthostatic hypotension 4. Dehydration 5. Symptomatic anemia I, Vivian Mckeon, am serving as a scribe on 07/24/2012 at 7:22 PM to personally document services performed by Dr. Jr Martínez based on my observations and the provider's statements to me. Jr Martínez MD 07/24/12 5310 ING SLINGER Ivonne Roach RN - 07/24/2012 7:13 PM CST Pt had an iron infusion today for anemia, now c/o feeling dizzy, lightheaded, also c/o joint pain and had swelling. States she feels like she cant take a deep breath. ING SLINGER documented in this encounter Miscellaneous Notes Plan of Care - Linda Jackson RN - 07/26/2012 6:36 AM CST Problem: IP GENERAL POC-ADULT,OB,BEHAVIORAL FVCPM Goal: Individualization/Patient-Specific Goal (Adult,OB,Behavioral The patient and/or their dental sales representative will achieve their patient-specific goals related to the plan of care. The patient-specific goals include: 1.First iron transfusion 07/24/12 for iron deficiency anemia. 2.Possible reaction to transfusion. 3.GI consult. RD- PO to be greater than 75% of meals. No further wt loss beyond 55.8 kg. Outcome: Improving Pt stated and discomfort 3 on 0-10 scale this shift. declined pain meds this shift. 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 Up to bathroom ind. Pt stated that she has not had BM for over 4 days, does not feel constipated. BS hypo, abd soft, passing flatus. HGB to be drawn in AM ING SLINGER Plan of Care - Janie Guillaume RN - 07/25/2012 11:41 PM CST Problem: IP GENERAL POC-ADULT,OB,BEHAVIORAL FVCPM Goal: Individualization/Patient-Specific Goal (Adult,OB,Behavioral The patient and/or their dental sales representative will achieve their patient-specific goals related to the plan of care. The patient-specific goals include: 1.First iron transfusion 07/24/12 for iron deficiency anemia. 2.Possible reaction to transfusion. 3.GI consult. RD- PO to be greater than 75% of meals. No further wt loss beyond 55.8 kg. Outcome: Improving Pt. With improved BP after 1 unit blood. Transfusion was uneventful. Tolerated regular diet. AM labs. Instructed pt. On No NSAIDS. BP 106/66 Pulse 133 Temp(Src) 98.4 ??F (36.9 ??C) (Axillary) Resp 16 Ht 1.727 m (5' 8) Wt55.792 kg (123 lb) BMI 18.70 kg/m2 SpO2 100% LMP 07/03/2012 ? No ING SLINGER Plan of Care - Breann Jc - 07/25/2012 3:08 PM CST Problem: IP GENERAL POC-ADULT,OB,BEHAVIORAL FVCPM Goal: Individualization/Patient-Specific Goal (Adult,OB,Behavioral The patient and/or their dental sales representative will achieve their patient-specific goals related to the plan of care. The patient-specific goals include: 1.First iron transfusion 07/24/12 for iron deficiency anemia. 2.Possible reaction to transfusion. 3.GI consult. RD- PO to be greater than 75% of meals. No further wt loss beyond 55.8 kg. Outcome: No Change Blood pressure low, tachycardic. Dizzy/lightheaded with standing at times. Hemoglobin 7, will receive 1 unit of PRBCs this evening. Upper endoscopy performed. Started on regular diet. PO protonix continued. ING SLINGER Pharmacy-Admission Medication History - Shannon Elliott RPH - 07/25/2012 2:55 PM CST Admission medication history interview status for this patient is complete. See [facility] admission navigator for allergy information, prior to admission medications and immunization status. Medication history interview source(s):Patient Medication history resources (including written lists, pill bottles, clinic record):None [facility] Actions taken by pharmacist (provider contacted, etc):None Additional medication history information:None Medication reconciliation/reorder completed by provider prior to medication history? No Prior to Admission Medications Medication Last Dose Informant Patient Reported? Taking? NO ACTIVE MEDICATIONS Yes Yes ING SLINGER Utilization Review - Edward Jensen MD - 07/25/2012 1:05 PM CST [facility] Admission Status; Secondary Review Determination Admission Date: 07/24/2012 7:13 PM Under the authority of the Utilization Management Committee, the utilization review process indicated a secondary review on the above patient. The review outcome is based on review of the medical records, discussions with staff, and applying clinical experience noted on the date of the review. (x) Observation Status Appropriate - This patient does not meet hospital inpatient criteria and is placed in observation status. If this patient's primary payer is Medicare and was admitted as an inpatient, Condition Code 44 should be used and patient status changed to observation. RATIONALE FOR DETERMINATION 27 year old female with a history of iron-deficiency anemia and poor tolerance of oral iron presentswith c/o new rash, joint pain and dizziness after receiving her first IV iron replacement. In the EDshe had an episode of hypotension with BP 83/70 with HR 130. Her hemoglobin was 8.5 which is above her usual baseline in the 7 range. The source of her iron deficiency is not clear. A hemoccult in the ED was positive. Concern is for possible GI bleeding as the cause of her hypotension. She is hospitalized for further serial hemoglobin, clinical monitoring and gastroenterology consultation. The severity of illness, intensity of service provided, expected LOS and risk for adverse outcome make the care appropriate for further observation; however, doesn't meet criteria for hospital inpatient admission. The information on this document is developed by the utilization review team in order for the business office to ensure compliance. This only denotes the appropriateness of proper admission status and does not reflect the quality of care rendered. The definitions of Inpatient Status and Observation Status used in making the determination above are those provided in the CMS Coverage Manual, Chapter 1 and Chapter 6, section 70.4. Sincerely, EDWARD JENSEN MD Physician Advisor - Utilization Review [facility]. ING SLINGER Plan of Care - Marline Jara RN - 07/25/2012 7:15 AM CST Problem: IP GENERAL POC-ADULT,OB,BEHAVIORAL FVCPM Goal: Individualization/Patient-Specific Goal (Adult,OB,Behavioral The patient and/or their dental sales representative will achieve their patient-specific goals related to the plan of care. The patient-specific goals include: 1.First iron transfusion 07/24/12 for iron deficiency anemia. 2.Possible reaction to transfusion. 3.GI consult. Outcome: No Change BP 90's/50's. Color pale. No stools. Tylenol for discomfort. ING SLINGER documented in this encounter Plan of Treatment Not on filedocumented as of this encounter Procedures Procedure Name Priority Date/Time Associated Comments Diagnosis INR Routine 07/26/2012 6:30 Results for this AM RIGGING SLINGER procedure are i n the results section. PARTIAL THROMBOPLASTIN Routine 07/26/2012 6:30 Re sults for this TIME AM RIGGING SLINGER procedure are i n the results section. HEMOGLOBIN Routine 07/26/2012 6:30 Results for this AM RIGGING SLINGER procedure are i n the results section. TISSUE TRANSGLUTAMINASE Routine 07/25/2012 11:55 Results for this ANTIBODY IGA AM RIGGING SLINGER procedure are i n the results section. SURGICAL PATHOLOGY EXAM Routine 07/25/2012 9:33 R esults for this AM RIGGING SLINGER procedure are i n the results section. UPPER GI ENDOSCOPY Routine 07/25/2012 9:30 Result s for this AM RIGGING SLINGER procedure are i n the results section. ESOPHAGOGASTRODUODENOSCO 07/25/2012 9:13 iron deficien cy PY, WITH BIOPSY AM RIGGING SLINGER anemia INR Routine 07/25/2012 6:35 Results for this AM RIGGING SLINGER procedure are i n the results section. PARTIAL THROMBOPLASTIN Routine 07/25/2012 6:35 Re sults for this TIME AM RIGGING SLINGER procedure are i n the results section. CBC WITH PLATELETS Routine 07/25/2012 6:35 Result s for this AM RIGGING SLINGER procedure are i n the results section. XR CHEST PORT 1 VIEW STAT 07/24/2012 9:12 Resu lts for this PM RIGGING SLINGER procedure are i n the results section. CBC WITH PLATELETS & STAT 07/24/2012 7:48 Resu lts for this DIFFERENTIAL PM RIGGING SLINGER procedure are i n the results section. INR STAT 07/24/2012 7:48 Results for this PM RIGGING SLINGER procedure are i n the results section. PARTIAL THROMBOPLASTIN STAT 07/24/2012 7:48 Re sults for this TIME PM RIGGING SLINGER procedure are i n the results section. LIPASE STAT 07/24/2012 7:48 Results for this PM RIGGING SLINGER procedure are i n the results section. COMPREHENSIVE METABOLIC STAT 07/24/2012 7:48 R esults for this PANEL PM RIGGING SLINGER procedure are i n the results section. ABO/RH TYPE AND SCREEN STAT 07/24/2012 7:48 Re sults for this PM RIGGING SLINGER procedure are i n the results section. OCCULT BLOOD STOOL STAT 07/24/2012 7:37 Result s for this PM RIGGING SLINGER procedure are i n the results section. HIM ECG SCAN Routine 07/24/2012 documented in this encounter Results (ABNORMAL) Hemoglobin (07/26/2012 6:30 AM RIGGING SLINGER) athologist Signature Hemoglobin 7.4 (L) 11.7 - 15.7 [facility] g/dL [facility] Specimen Anatomical Collection Method Collection Time Receive d Time (Source) Location / / Volume Laterality Blood specimen 07/26/2012 6:30 AM 013 6:39 (specimen) RIGGING SLINGER AM RIGGING SLINGER Ha Romero DO LAB - BLOOD ORDERABLES Performing Organization Address City/State/ZIP Code Phon e Number [facility] [address], [place] [address] [facility] Partial thromboplastin time (07/26/2012 6:30 AM RIGGING SLINGER) athologist Signature PTT 32 22 - 37 sec [facility] Specimen Anatomical Collection Method Collection Time Receive d Time (Source) Location / / Volume Laterality Blood specimen 07/26/2012 6:30 AM 013 6:39 (specimen) RIGGING SLINGER AM RIGGING SLINGER Ha Romero DO LAB - BLOOD ORDERABLES Performing Organization Address City/State/ZIP Code Phon e Number [facility] [address], [place] [address] [facility] (ABNORMAL) INR (07/26/2012 6:30 AM RIGGING SLINGER) P athologist Signature INR 1.18 (H) 0.86 - 1.14 [facility] Specimen Anatomical Collection Method Collection Time Receive d Time (Source) Location / / Volume Laterality Blood specimen 07/26/2012 6:30 AM 013 6:39 (specimen) RIGGING SLINGER AM RIGGING SLINGER Ha Romero DO LAB - BLOOD ORDERABLES Performing Organization Address City/[facility]/ZIP Code Phon e Number [facility] [address], [place] [address] [facility] Tissue transglutaminase antibody IgA (07/25/2012 11:55 AM RIGGING SLINGER) [facility] Method Time [facility] Tissue <1.0 0 - 3.9 [facility] Transglutaminase Interpretation: ??Negative U/mL [facility] Antibody IgA [facility] Specimen Anatomical Collection Method Collection Time Receive d Time (Source) Location / / Volume Laterality Blood specimen 07/25/2012 11:55 3 (specimen) AM RIGGING SLINGER 12:06 PM RIGGING SLINGER Ha Romero DO LAB - BLOOD ORDERABLES Performing Organization Address City/State/ZIP Code Phon e Number [address] [address] [facility] Surgical pathology exam (07/25/2012 9:33 AM RIGGING SLINGER) Component Value Ref Test Analysis Performed At [facility] Range Method Time Signature Copath Report Patient Name: ESTEFANIA MCKEON MR#: [id number] Specimen #: [id number] Collected: 07/25/2012 Received: 07/25/2012 Reported: 07/26/2012 17:19 Ordering Phy(s): HA ROMERO Additional Phy(s): CLAY CARDONA SPECIMEN(S): A: Duodenal biopsy B: Stomach biopsy, erythema FINAL DIAGNOSIS: A. ??Small intestine, duodenum, biopsy - Abnormal distributi on of intraepithelial lymphocytes (see microscopic description). B. ??Stomach, random biopsies - ?1. ??Fragments of gastric fundic and transitional type mucosa. ? 2. ??No evidence of significant inflammatory infiltra prateek, erosion, atrophy, intestinal metaplasia or malignancy. ? 3. ??Negative for Helicobacter-like organisms. Electronically signed out by: Cale Power M.D. CLINICAL HISTORY: Iron deficiency anemia. GROSS: A. ??The specimen, labeled biopsy of duodenum, rule out lizzie iac sprue, consists of four fragments of soft rodriguez tissue measuring 0.2 cm in diameter each. ??The specimen is submitted in its entirety. B. ??The specimen, labeled biopsy of erythema random stomac h, consists of two fragments of soft rodriguez tissue measuring 0.3 cm in diam eter each. The specimen is submitted in its entirety. ??Warthin-Starry stain is ordered. ??MGP/sg MICROSCOPIC: A. ??Sections show fragments of duodenal mucosa. ??It is marjorie racterized by well preserved villous-crypt architecture. ??Twenty intraepi thelial lymphocytes per one hundred epithelial cells are counted. ?? However, the intraepithelial lymphocytes show abnormal distribution. ??Th ey are extending to the tips of the villi. ??Because of this findin g, correlation with celiac sprue serology is recommended. ??The brush border, goblet and Paneth cells are without abnormalities. ? ?The lamina propria shows normal complement of inflammatory cells. ??Lym phoid aggregates are noted. ??There is no evidence of parasites, u lceration, adenoma or malignancy. B. ??Sections show fragments of fundic and transitional type mucosa. ??The surface and glandular epithelium are without abnormalities. ??The lamina propria shows a few chronic inflammatory cells. ??There is n o evidence of erosion, lymphoid aggregates, active inflammation, atrophy, intestinal metaplasia or malignancy. ??No Helicobacter-like organisms a re seen with H and E and Warthin-Starry stains. MGP/sg 07-26-12 TESTING LAB LOCATION: [address] ??[id number] COLLECTION SITE: Client: [facility] Location: [facility]5 (R) Specimen Anatomical Collection Method Collection Time Receive d Time (Source) Location / / Volume Laterality 07/25/2012 9:33 AM 3 RIGGING SLINGER 12:28 PM RIGGING SLINGER Ha FUNES Performing Organization Address City/State/ZIP Code Phon e Evens FERNANDES UPPER GI ENDOSCOPY (07/25/2012 9:30 AM RIGGING SLINGER) Component Value Ref Test Analysis Performed At [facility] Method Time Signature Upper GI [facility] RADIO LOGY Endoscopy RESULTS Patient Name: Estefania childress ? Procedure Date: 07/25/2012 9:30:16 AM ? Date of : 1985 ? Admit Type: Inpatient ? Age: 27 ? Gender: Female ? Attending MD: Ha Norris DO ? Procedure: ?Upper GI endoscopy Indications: ?Unexplained iron deficiency anemia Providers: ?Ha Romero, DO Referring MD: ? Medicines: ?Midazolam 5 mg IV, Fentanyl 100 micrograms IV Complications: ?No immediate complications Procedure: ?Pre-Anesthesia Assessment: ?- Prior to the procedure, a History and Physical ?was performed, and patient medications and ?allergies were reviewed. The patient is competent. ?The risks and benefits of the procedure and the ?sedation options and risks were discussed with the ?patient. All questions were answered and informed ?consent was obtained. Patient identification and ?proposed procedure were verified by the physician ?and the nurse in the pre-procedure area in the ?procedure room. Mental Status Examination: normal. ?Airway Examination: normal oropharyngeal airway and ?neck mobility. Respiratory Examination: clear to ?auscultation. CV Examination: normal. Prophylactic ?Antibiotics: The patient does not require ?prophylactic antibiotics. Prior Anticoagulants: The ?patient has taken no previous anticoagulant or ?antiplatelet agents. ASA Grade Assessment: II - A ?patient with mild systemic disease. After reviewing ?the risks and benefits, the patient was deemed in ?satisfactory condition to undergo the procedure. ?The anesthesia plan was to use moderate sedation / ?analgesia (conscious sedation). Immediately prior ?to administration of medications, the patient was ?re-assessed for adequacy to receive sedatives. The ?heart rate, respiratory rate, oxygen saturations, ?blood pressure, adequacy of pulmonary ventilation, ?and response to care were monitored throughout the ?procedure. The physical status of the patient was ?re-assessed after the procedure. ?After obtaining informed consent, the endoscope was ?passed under direct vision. Throughout the ?procedure, the patient's blood pressure, pulse, and ?oxygen saturations were monitored continuously. The ?Endoscope was introduced through the mouth, and ?advanced to the second part of duodenum. The upper ?GI endoscopy was accomplished without difficulty. ?The patient tolerated the procedure well. ? Findings: ? The esophagus was normal. Patchy mildly erythematous mucosa with no ? bleeding was found in the gastric body associated wit h a single ? diminutive erosion, no stigmata o f bleeding. Biopsies were taken with a ? cold forceps for histology. The examined duodenum was normal. Biopsies ? were taken with a cold forceps for evaluation of benito ac disease. ? Impression: ? - Normal esophagus. ?- Focal area of erythematous gastropathy, biopsied. ?- Normal examin ed duodenum, biopsied. Recommendation: ? - Await pathology results, which I will forward to ?the patient. ?- Celiac serologies - ordered. ?- Okay to advance diet, and plan dispo from a GI ?perspective. ?- My office will call the patient and arrange a ?colonosco py within the next 2-3 weeks. ?- We will sign off, please call with any questions. ? charles Mejia D.O. Ha Romero, DO Signed Date: 07/25/2012 9:43:33 AM Number of Addenda: 0 Note Initiated On: 07/25/2012 9:30:16 AM Scope Withdrawal Time: 0 hours 0 minutes 0 seconds Scope Withdrawal Time: 0 hours 0 minutes 0 seconds Total Procedure Duration: 0 hours 6 minutes 11 seconds Specimen (Source) Anatomical Collection Method Collection Time Re ceived Time Location / / Volume Laterality 07/25/2012 9:30 AM RIGGING SLINGER Ha Romero DO PROCEDURES Performing Organization Address City/State/ZIP Code Phon e Number RADIOLOGY RESULTS Partial thromboplastin time (07/25/2012 6:35 AM RIGGING SLINGER) athologist Signature PTT 34 22 - 37 sec [facility] Specimen Anatomical Collection Method Collection Time Receive d Time (Source) Location / / Volume Laterality Blood specimen 07/25/2012 6:35 AM 013 7:02 (specimen) RIGGING SLINGER AM RIGGING SLINGER Clay Palmer MD LAB - BLOOD ORDERABLES Performing Organization Address City/State/ZIP Code Phon e Number M [facility] [address] [place], [place] [address] [facility] (ABNORMAL) INR (07/25/2012 6:35 AM RIGGING SLINGER) P athologist Signature INR 1.18 (H) 0.86 - 1.14 [facility] Specimen Anatomical Collection Method Collection Time Receive d Time (Source) Location / / Volume Laterality Blood specimen 07/25/2012 6:35 AM 013 7:02 (specimen) RIGGING SLINGER AM RIGGING SLINGER Clay Palmer MD LAB - BLOOD ORDERABLES Performing Organization Address City/[facility]/ZIP Code Phon e Number [place] [address], [place] [address] [facility] (ABNORMAL) CBC with platelets (07/25/2012 6:35 AM RIGGING SLINGER) Analysis Performed At Patho logist Time Signature WBC 5.8 4.0 - 11.0 [place] 10e9/L [facility] RBC Count 4.01 3.8 - 5.2 [place] 10e12/L [facility] Hemoglobin 7.0 (L) 11.7 - [place] 15.7 g/dL [facility] Hematocrit 25.9 (L) 35.0 - [place] 47.0 % [facility] MCV 65 (L) 78 - 100 [place] fl [facility] MCH 17.5 (L) 26.5 - [place] 33.0 pg [facility] MCHC 27.0 (L) 31.5 - [place] 36.5 g/dL [facility] RDW 19.5 (H) 10.0 - [place] 15.0 [facility] Platelet Count 320 150 - 450 [place] 10e9[facility] Specimen Anatomical Collection Method Collection Time Receive d Time (Source) Location / / Volume Laterality Blood specimen 07/25/2012 6:35 AM 013 7:02 (specimen) RIGGING SLINGER AM RIGGING SLINGER Clay Palmer MD LAB - BLOOD ORDERABLES Performing Organization Address City/[facility]/ZIP Code Phon e Number [place] [address], [place] [address] [facility] XR Chest Port 1 View (07/24/2012 9:12 PM RIGGING SLINGER) Anatomical Region Laterality Modality Chest Other Specimen (Source) Anatomical Collection Method Collection Time Re ceived Time Location / / Volume Laterality 07/24/2012 9:12 PM RIGGING SLINGER Impressions 07/25/2012 8:41 AM RIGGING SLINGER IMPRESSION: ??Negative. JANIS AARON MD Narrative 07/25/2012 8:41 AM RIGGING SLINGER CHEST 1 VIEW PORT ??07/24/2012 9:13 PM HISTORY: ??Shortness of breath. COMPARISON: ??None. Procedure Note Janis Aaron MD - 3 CHEST 1 VIEW PORT 07/24/2012 9:13 PM HISTORY: Shortness of breath. COMPARISON: None. IMPRESSION IMPRESSION: Negative. JANIS AARON MD Jr Martínez MD IMG DIAGNOSTIC IMAGING ORDER KEISHA ABO/Rh type and screen (07/24/2012 7:48 PM RIGGING SLINGER) [facility] gist Method Time Signature ABO Canceled, [place] Test credited [facility] RH(D) Canceled, [place] Test credited [facility] Antibody Canceled, [place] Screen Test credited [facility] Specimen 07/27/2012 [place] Expires [facility] Blood Bank Duplicate [place] Comment request [facility] Specimen Anatomical Collection Method Collection Time Receive d Time (Source) Location / / Volume Laterality Blood specimen 07/24/2012 7:48 PM 013 7:58 (specimen) RIGGING SLINGER PM RIGGING SLINGER Jr Martínez MD LAB - BLOOD BANK TEST ORDER Performing Organization Address [facility]/ZIP Code Phon e Number M [place] [address], [place] [address] [facility] Lipase (07/24/2012 7:48 PM RIGGING SLINGER) P athologist Signature Lipase 64 20 - [address] [facility] U/L [facility] Specimen Anatomical Collection Method Collection Time Receive d Time (Source) Location / / Volume Laterality Blood specimen 07/24/2012 7:48 PM 013 7:58 (specimen) RIGGING SLINGER PM RIGGING SLINGER Jr Martínez MD LAB - BLOOD ORDERABLES Performing Organization Address City/[facility]/ZIP Code Phon e Number M [facility] [address], [place] [address] [facility] Comprehensive metabolic panel (07/24/2012 7:48 PM RIGGING SLINGER) athologist Signature Sodium 136 133 - 144 [place] mmol/L [facility] Potassium 3.5 3.4 - 5.3 [place] mmol/L [facility] Chloride 106 94 - 109 [place] mmol/L [facility] Carbon Dioxide 23 20 - 32 [place] mmol/L [facility] Anion Gap 8 6 - 17 [place] mmol/L [facility] Glucose 91 60 - 99 [place] mg/dL [facility] Urea Nitrogen 7 5 - 24 [place] mg/dL [facility] Creatinine 0.67 0.52 - [facility] 1.04 mg/dL [facility] GFR Estimate >90 >60 [place] mL/min/[address] [place] [address] LAB GFR Estimate If >90 >60 [place] Black mL/min/[address] LAB Calcium 8.9 8.5 - 10.4 [place] mg/dL [facility] Bilirubin Total 0.7 0.2 - 1.3 [place] mg/dL [facility] Albumin 3.9 3.9 - 5.1 [place] g/dL [facility] Protein Total 6.8 6.8 - 8.8 [place] g/dL [facility] Alkaline 52 40 - 150 [place] Phosphatase U/L [facility] ALT 25 0 - 50 U/L [facility] AST 19 0 - 45 U/L [facility] Specimen Anatomical Collection Method Collection Time Receive d Time (Source) Location / / Volume Laterality Blood specimen 07/24/2012 7:48 PM 013 7:58 (specimen) RIGGING SLINGER PM RIGGING SLINGER Jr Martínez MD LAB - BLOOD ORDERABLES Performing Organization Address City/State/ZIP Code Phon e Number M [facility] [address] [place], [place] [address] [facility] (ABNORMAL) Partial thromboplastin time (07/24/2012 7:48 PM RIGGING SLINGER) athologist Signature PTT 39 (H) 22 - 37 sec [facility] Specimen Anatomical Collection Method Collection Time Receive d Time (Source) Location / / Volume Laterality Blood specimen 07/24/2012 7:48 PM 013 7:58 (specimen) RIGGING SLINGER PM RIGGING SLINGER Jr Martínez MD LAB - BLOOD ORDERABLES Performing Organization Address City/State/ZIP Code Phon e Number Tracey [facility] [address], [place] [address] [facility] (ABNORMAL) INR (07/24/2012 7:48 PM RIGGING SLINGER) P athologist Signature INR 1.17 (H) 0.86 - 1.14 [facility] Specimen Anatomical Collection Method Collection Time Receive d Time (Source) Location / / Volume Laterality Blood specimen 07/24/2012 7:48 PM 013 7:58 (specimen) RIGGING SLINGER PM RIGGING SLINGER Jr Martínez MD LAB - BLOOD ORDERABLES Performing Organization Address City/[facility] Phon e Number M [place] [address], [place] [address] [facility] (ABNORMAL) CBC with platelets differential (07/24/2012 7:48 PM RIGGING SLINGER) Patholo gist Method Time Signature WBC 12.9 (H) 4.0 - [place] 11.0 [facility] 10e9/L [facility] LAB RBC Count 4.72 3.8 - 5.2 [place] 10e12/L [facility] Hemoglobin 8.5 (L) 11.7 - [place] 15.7 g/dL [facility] Hematocrit 29.9 (L) 35.0 - [place] 47.0 % [facility] MCV 63 (L) 78 - 100 [facility] LAB MCH 18.0 (L) 26.5 - [place] 33.0 pg [facility] MCHC 28.4 (L) 31.5 - [place] 36.5 g/dL [facility] RDW 19.1 (H) 10.0 - [place] 15.0 % [facility] Platelet Count 331 150 - 450 [place] 10e9/L [facility] Diff Method Automated [facility] LAB % Neutrophils 85.9 (H) 40 - 75 % [facility] % Lymphocytes 8.0 (L) 20 - 48 % [facility] % Monocytes 5.5 0 - 12 % [facility] % Eosinophils 0.2 0 - 6 % [facility] % Basophils 0.2 0 - 2 % [facility] % Immature 0.2 0 - 0.4 % [place] Granulocytes [facility] Absolute 11.1 (H) 1.6 - 8.3 [place] Neutrophil 10e9/L [facility] Absolute 1.0 0.8 - 5.3 [place] Lymphocytes 10e9/L [facility] Absolute 0.7 0.0 - 1.3 [place] Monocytes 10e9/L [facility] Absolute 0.0 0.0 - 0.7 [place] Eosinophils 10e9/L [facility] Absolute 0.0 0.0 - 0.2 [place] Basophils 10e9/L [facility] Abs Immature 0.0 0 - 0.03 [place] Granulocytes 10e9/L [facility] Specimen Anatomical Collection Method Collection Time Receive d Time (Source) Location / / Volume Laterality Blood specimen 07/24/2012 7:48 PM 013 7:58 (specimen) RIGGING SLINGER PM RIGGING SLINGER Jr Martínez MD LAB - BLOOD ORDERABLES Performing Organization Address City/State/ZIP Code [facility] e [address] [facility] (ABNORMAL) Stool: occult blood (07/24/2012 7:37 PM RIGGING SLINGER) [facility] gist Method Time Signature Occult Blood Positive (A) NEG [facility] Specimen Anatomical Collection Method Collection Time Receive d Time (Source) Location / / Volume Laterality Stool specimen STOOL SPECIMEN / 07/24/2012 7:37 PM 08/2012 7:59 (specimen) Unknown RIGGING SLINGER PM RIGGING SLINGER Jr Martínez MD LAB - STOOLS ORDERABLES Performing Organization Address City/[facility] e Number [place] [address], [place] [address] [facility] ECG - HIM ECG Scan (07/24/2012) Narrative This result has an attachment that is no t available. Jr Martínez MD ECG ORDERABLES documented in this encounter Visit Diagnoses Not on filedocumented in this encounter Administered Medications Inactive Administered Medications - up to 3 most recent administrations Medication Order MAR Action Action Date Dose Rate Site 0.9 % sodium chloride IV New Bag 07/26/2012 1:40 PM RIGGING SLINGER 1,000 mLs 100 mL/hr solution at 100 mL/hr, Intravenous, CONTINUOUS, Starting on Tue07/25/12 at 0015, Until Tue07/26/12 at 1805 New Bag 07/26/2012 4:33 AM RIGGING SLINGER 1,000 mLs 100 mL/hr Rate/Dose Verify 07/25/2012 11:51 PM RIGGING SLINGER 1,000 mLs 100 mL/hr acetaminophen (TYLENOL) tablet 650 mg Given 07/25/2012 6:50 AM RIGGING SLINGER 650 mg 650 mg, Oral, EVERY 4 HOURS PRN, mild pain, Starting on Tue07/25/12 at 0013, Alternate ibuprofen (if ordered) with acetaminophen. Not to exceed 4 grams/day. Maximum acetaminophen dose from all sources = 75 mg/kg/day not to exceed 4 grams/day. Given 07/25/2012 12:50 AM RIGGING SLINGER 650 mg benzocaine (HURRICAINE/TOPEX) 20 % spray Given 07/25/2012 9:25 AM RIGGING SLINGER 2 sprays PRN, moderate pain (4-6), Starting on Tue07/25/12 at 0925, Intra-procedure diphenhydrAMINE (BENADRYL) injection 25 mg Given 07/24/2012 8:24 PM RIGGING SLINGER 25 mg, Intravenous, ONCE, On Tue07/24/12 at 1945, For 1 dose fentaNYL (SUBLIMAZE) injection Given 07/25/2012 9:23 AM RIGGING SLINGER 100 mcg PRN, moderate to severe pain, Starting on Tue07/25/12 at 0923, Intra-procedure methylprednisoLONE sodium succinate Given 07/24/2012 8:25 PM RIGGING SLINGER 125 mg (Solu-MEDROL) injection 125 mg 125 mg, Intravenous, ONCE, On Tue07/24/12 at 1945, For 1 dose, Doses >125mg need to be in at least 50 mL IVPB midazolam (VERSED) injection Given 07/25/2012 9:33 AM RIGGING SLINGER 1 mg PRN, anxiety, Starting on Tue07/25/12 at 0923, Intra-procedure Given 07/25/2012 9:29 AM RIGGING SLINGER 1 mg Given 07/25/2012 9:27 AM RIGGING SLINGER 1 mg ondansetron (ZOFRAN) injection 4 mg Given 07/24/2012 8:22 PM RIGGING SLINGER 4 mg 4 mg, Intravenous, EVERY 30 MIN PRN, nausea, vomiting, Administer over 2-5 Minutes, Starting on Tue07/24/12 at 1939, For 3 doses, May repeat in 30 minutes as needed, up to 3 doses. pantoprazole (PROTONIX) 40mg IV push inj ection Given 07/24/2012 8:26 PM RIGGING SLINGER 40 mg 40 mg, Intravenous, ONCE, Administer over 2 Minutes, On Tue07/24/12 at 1945, For 1 dose, Reconstitute vial with 10mLs Saline and administer IV Push pantoprazole (PROTONIX) EC tablet 40 mg Given 07/26/2012 8:39 AM RIGGING SLINGER 40 mg 40 mg, Oral, EVERY MORNING BEFORE BREAKFAST, First dose on Tue07/25/12 at 0900, DO NOT CRUSH. Given 07/25/2012 8:26 AM RIGGING SLINGER 40 mg sodium chloride (PF) 0.9% PF flush 3 mL Given 07/25/2012 4:15 PM RIGGING SLINGER 3 mLs 3 mL, Intravenous, EVERY 8 HOURS, First dose on Tue07/25/12 at 0015, And Q1H PRN, to lock peripheral IV dormant line. Given 07/25/2012 12:36 AM RIGGING SLINGER 3 mLs sodium chloride 0.9 % BOLUS 1,000 mL New Bag 07/24/2012 8:31 PM RIGGING SLINGER 1,000 mLs Intravenous, 1,000 mL, ONCE, On Tue07/24/12 at 1945, For 1 dose, Wide Open sodium chloride 0.9 % BOLUS New Bag 07/24/2012 10:15 PM RIGGING SLINGER 1, 000 mLs 1000 mL/hr 1,000 mL Intravenous, 1,000 mL, ONCE, at 1,000 mL/hr, Administer over 1 Hours, On Tue07/24/12 at 2215, For 1 dose documented in this encounter Active and Recently Administered Medications Times are shown in RIGGING SLINGER. Scheduled Medication Order 07/24/2012 07/25/2012 07/26/2012 diphenhydrAMINE (BENADRYL) injection 25 mg (COMPLETED) 2024 (Given - Provider: Louisa Vickers, MICHAEL) 25 mg, Intravenous, ONCE, Tue07/24/12 at 1945, For 1 dose methylprednisoLONE sodium succinate (Solu-MEDROL) inje ction 125 mg (COMPLETED) 2024 (Given - Provider: Louisa Vickers RN) 125 mg, Intravenous, ONCE, Tue07/24/12 at 1945, For 1 dose, Doses >125mg need to be in at least 50 mL IVPB pantoprazole (PROTONIX) 40mg IV push injection (COMPLE JUAN MANUEL) 2025 (Given - Provider: Louisa Vickers RN) 40 mg, Intravenous, ONCE, for 2 Minutes, Tue07/24/12 at 194, For 1 dose, Reconstitute vial with 10mLs Saline and administer IV Push pantoprazole (PROTONIX) EC tablet 40 mg 08 (Given - Provider: May Feliz LPN) 0839 (Given - Provider: PANFILO Montano) 40 mg, Oral, EVERY MORNING BEFORE BREAKF AST, First dose on Tue07/25/12 at 0900, DO NOT CRUSH. sodium chloride (PF) 0.9% PF flush 3 mL (CANCELED) 0036 (Given - Provider: Leonra Coello LPN)0827 (Not Given - Provider: May Feliz LPN - Reason: IV Infusing)1615 (Given - Provider: Janie Guillaume RN - Comment: given)2352 (Not Given - Provider: Linda Jackson RN - Reason: IV Infusing) 0922 (Not Given - Provider: Breann Jc - Reason: IV Infusing) 3 mL, Intravenous, EVERY 8 HOURS, First dose on Tue07/25/12 at 0015, And Q1H PRN, to lock peripheral IV dormant line. sodium chloride 0.9 % BOLUS 1,000 mL (COMPLETED) 2030 (New Bag - Provider: Louisa Vickers RN)2131 (Stopped - Provider: Kathleen Henley, MICHAEL) Intravenous, 1,000 mL, ONCE, Tue07/24/12 at 1945, For 1 dose, Wid e Open sodium chloride 0.9 % BOLUS 1,000 mL (COMPLETED) 2214 (New Bag - Provider: Kathleen Henley RN) Intravenous, 1,000 mL, ONCE, at 1,000 mL /hr, for 1 Hours, 07/24/12 at 2215, For 1 dose Continuous Medication Order 07/24/2012 07/25/2012 07/26/2012 0.9 % sodium chloride IV solution (CANCELED) 0039 (New Bag - Provider: Lenora Coello LPN)1005 (New Bag - Provider: Lory Rojas RN - Comment: hung next IV 1005)2233 (Restarted - Provider: Heather Hurt LPN)2351 (Rate/Dose Verify - Provider: Linda Jackson RN) 0433 (New Bag - Provider: Linda Jackson RN)1340 (New Bag - Provider: May Feliz LPN)1356 (Stopped - Provider: Breann Jc) at 100 mL/hr, Intravenous, CONTINUOUS PRN Medication Order 07/24/2012 07/25/2012 07/26/2012 acetaminophen (TYLENOL) tablet 650 mg (CANCELED) 0050 (Given - Provider: Lenora Coello LPN)0650 (Given - Provider: Lenora Coello LPN) 650 mg, Oral, EVERY 4 HOURS PRN, mild pa in, Starting Tue07/25/12 at 0013, Alternate ibuprofen (if ordered) with acetaminophen. Not to exceed 4 grams/day. Maximum acetaminophen dose from all sources = 75 mg/kg/day not to exceed 4 grams/day. benzocaine (HURRICAINE/TOPEX) 20 % spray (CANCELED) 0925 (Given - Provider: Ha Romero DO) PRN, moderate pain, Starting Tue07/25/12 at 0925, Intra-procedure fentaNYL (SUBLIMAZE) injection (CANCELED) 0923 (Given - Provider: Vicky Noriega RN) PRN, Starting Tue07/25/12 at 0923, moderate to severe pain, Intra -procedure midazolam (VERSED) injection (CANCELED) 0923 (Given - Provider: Vicky Noriega RN)09 (Given - Provider: Vicky Noriega RN)09 (Given - Provider: Vicky Noriega RN)0929 (Given - Provider: Vicky Noriega RN)0933 (Given - Provider: Ha Romero DO) PRN, Starting 07/25/12 at 0923, anxiety, Intra-procedure ondansetron (ZOFRAN) injection 4 mg (CANCELED) 2021 (G iven - Provider: Louisa Vickers RN) 4 mg, Intravenous, EVERY 30 MIN PRN, [place], vomiting, for 2 Minutes, Starting 07/24/12 at 1939, For 3 doses, May repeat in 30 minutes as needed, up to 3 doses. documented in this encounter Care Teams Veneer Matcher Relationship Specialty Start Date End Date Janis Cardona MD PCP - General 07/08/01 10/12/19 Jamie GAMBINO [address] [id number] documented as of this encounter
--- OUTSIDE RECORDS SUMMARY | 2022-04-25 22:24 | XMS_ITS | Encounter Summary ---
:1985 Author Organization [facility] Address [address] [place] [address] Care Team Providers Name Role Phone Janis Cuellar MD Primary Care Provider Encounter Details Date Type Department Care Team Description 01/17/2013 Orders Only [facility] Iro n deficiency anemia; [facility] Abnormal thyroid function te st [address] [place] [address] Social History Tobacco Use Types Packs/Day Years Used Date Smoking Tobacco: Never Smokeless Tobacco: Never Alcohol Use Standard Drinks/Week Comments Yes 0 (1 standard drink = 0.6 oz pure alcoho l) casual Sex Assigned at Date Recorded Not on file documented as of this encounter Plan of Treatment Not on filedocumented as of this encounter Procedures Procedure Name Priority Date/Time Associated Comments Diagnosis TSH WITH FREE T4 Routine 01/17/2013 10:48 AM Abnormal thyroid Results for this REFLEX CDT function test procedure are in the results section. IRON AND IRON Routine 01/17/2013 10:48 AM Iron deficiency Resu lts for this BINDING CAPACITY CDT anemia procedure a re in the results section. HEMOGLOBIN Routine 01/17/2013 10:48 AM Iron deficiency Resul ts for this CDT anemia procedure are i n the results section. documented in this encounter Results (ABNORMAL) Iron and iron binding capacity (01/17/2013 10:48 AM CDT) P athologist Signature Iron 17 (L) 35 - 180 [facility] ug/dL [facility] Iron Binding 534 (H) 240 - 430 [facility] Cap ug/dL [facility] Iron Saturation 3 (L) 15 - 46 % [facility] Index [facility] Specimen Anatomical Collection Method Collection Time Receive d Time (Source) Location / / Volume Laterality Blood specimen 01/17/2013 10:48 3 (specimen) AM CDT 10:53 AM CDT Janis Cuellar MD LAB - BLOOD ORDERABLES Performing Organization Address City/[facility]/ZIP Code Phon e Number [facility] [address], [place] [address] [facility] [address] [place] [address] TSH with free T4 reflex (01/17/2013 10:48 AM CDT) athologist Signature TSH 1.77 0.4 - 5.0 [facility] mU/L [facility] Specimen Anatomical Collection Method Collection Time Receive d Time (Source) Location / / Volume Laterality Blood specimen 01/17/2013 10:48 3 (specimen) AM CDT 10:53 AM CDT Janis Cuellar MD LAB - BLOOD ORDERABLES Performing Organization Address City/[facility]/ZIP Code Phon e Number [facility] [address] [place] [address] [facility] [address] [place] [phone] (ABNORMAL) Hemoglobin (01/17/2013 10:48 AM CDT) athologist Signature Hemoglobin 10.2 (L) 11.7 - 15.7 [place] g/dL [facility] Comment: Results confirmed by repeat prateek t Specimen Anatomical Collection Method Collection Time Receive d Time (Source) Location / / Volume Laterality Blood specimen 01/17/2013 10:48 3 (specimen) AM CDT 10:53 AM CDT Janis Cuellar MD LAB - BLOOD ORDERABLES Performing Organization Address City/[facility]/ZIP Code Phon e Number [facility] [address] [place], [place] [address] [address] [facility] [address] [place], [place] [address] [address] documented in this encounter Visit Diagnoses Diagnosis Iron deficiency anemia Iron deficiency anemia, unspecified Abnormal thyroid function test Nonspecific abnormal results of thyroid function study documented in this encounter Care Teams Real Estate Broker Relationship Specialty Start Date End Date Janis Cuellar MD PCP - General 07/08/01 10/12/19 [address] [place] [address] documented as of this encounter
--- OUTSIDE RECORDS SUMMARY | 2022-04-25 22:24 | XMS_ITS | Encounter Summary ---
:1985 Author Organization [facility] Address [address] [place] [address] Care Team Providers Name Role Phone Janis Cuellar MD Primary Care Provider Encounter Details Date Type Department Care Team Description 01/19/2013 Orders Only [facility] Janis Cuellar MD IRON DEFIC ANEMIA [facility] [place] [address] (Primary Dx) [address] [place], [place] [address] [address] [place], [place] [phone] (Wo rk) [address] [phone] Social History Tobacco Use Types Packs/Day Years Used Date Smoking Tobacco: Never Smokeless Tobacco: Never Alcohol Use Standard Drinks/Week Comments Yes 0 (1 standard drink = 0.6 oz pure alcoho l) casual Sex Assigned at Date Recorded Not on file documented as of this encounter Plan of Treatment Not on filedocumented as of this encounter Visit Diagnoses Diagnosis IRON DEFIC ANEMIA NOS - Primary Iron deficiency anemia, unspecified documented in this encounter Care Teams Travograph Operator Relationship Specialty Start Date End Date Janis Cuellar MD PCP - General 07/08/01 10/12/19 [address] [place], [place] [id number] documented as of this encounter
--- OUTSIDE RECORDS SUMMARY | 2022-04-25 22:24 | XMS_ITS | Encounter Summary ---
:1985 Author Organization [facility] Address [address] [place] [address] Care Team Providers Name Role Phone Janis Cuellar MD Primary Care Provider Encounter Details Date Type Department Care Team Description 11/14/2013 Orders Only [facility] Janis Cuellar MD Iron (Fe) deficiency [facility] [address] anemia (Primary Dx) [place] [address] [place] [id number] [phone] Social History Tobacco Use Types Packs/Day Years [...] unspecified documented in this encounter Care Teams Glaze Wiper Relationship Specialty Start Date End Date Janis Cuellar MD PCP - General 07/08/01 10/12/19 [address] [place] [address] documented as of this encounter
--- OUTSIDE RECORDS SUMMARY | 2022-04-25 22:24 | XMS_ITS | Encounter Summary ---
:1985 Author Organization [facility] Address [address] [place] [address] Care Team Providers Name Role Phone Janis Cuellar MD Primary Care Provider Reason for Visit Reason Comments Infusion venofer infusion Encounter Details Date Type Department Care Team Description 06/25/2013 Infusion Therapy [facility] Janis Cuellar MD Iron (Fe) deficiency Visit [facility] [address] anemia (Prim loida Dx) [facility] [address] [place] [phone] Social History Tobacco Use Types Packs/Day Years Used Date Smoking Tobacco: Never Smokeless Tobacco: Never Alcohol Use Standard Drinks/Week Comments Yes 0 (1 standard drink = 0.6 oz pure alcoho l) casual Sex Assigned at Date Recorded Not on file documented as of this encounter Last Filed Vital Signs Vital Sign Reading Time Taken Comments Blood Pressure 122/70 06/25/2013 9:17 AM SHADOWGRAPH OPERATOR Pulse 91 06/25/2013 9:17 AM SHADOWGRAPH OPERATOR Temperature 35.9 ??C (96.7 ??F) 06/25/2013 9:17 AM SHADOWGRAPH OPERATOR Respiratory Rate 16 06/25/2013 9:17 AM SHADOWGRAPH OPERATOR Oxygen Saturation - - Inhaled Oxygen Concentration - - Weight - - Height - - Body Mass Index - - documented in this encounter Progress Notes Violette Gore RN - 06/25/2013 9:16 AM CST Patient here for venofer infusion. Patient tolerated procedure without incident. Patient discharged in the care of self. Patient aware of next appointment. OWGRAPH OPERATOR documented in this encounter Plan of Treatment Not on filedocumented as of this encounter Visit Diagnoses Diagnosis Iron (Fe) deficiency anemia - Primary Iron deficiency anemia, unspecified documented in this encounter Administered Medications Inactive Administered Medications - up to 3 most recent administrations Medication Order MAR Action Action Date Dose Rate Site iron sucrose (VENOFER) 100 mg New Bag 06/25/2013 9:24 AM SHADOWGRAPH OPERATOR 100 m g 420 mL/hr in NaCl 0.9% 100 mL IVPB 100 mg, Intravenous, Administer over 15 Minutes, at 420 mL/hr, ONCE, On Tue06/25/13 at 0915, For 1 dose, Given at least 48 hours apart. sodium chloride 0.9 % BOLUS 250 mL New Bag 06/25/2013 9:15 AM SHADOWGRAPH OPERATOR 250 mLs 30 mL/hr Intravenous, 250 mL, ONCE, On Tue06/25/13 at 0915, For 1 dose, Concominate fluids documented in this encounter Care Teams Roll Slicing Machine Tender Relationship Specialty Start Date End Date Janis Cuellar MD PCP - General 07/08/01 10/12/19 Jamie E MAKI [address] [id number] documented as of this encounter
--- OUTSIDE RECORDS SUMMARY | 2022-04-25 22:24 | XMS_ITS | Encounter Summary ---
:1985 Author Organization [facility] Address [address] [place] [id number] Care Team Providers Name Role Phone Janis Cuellar MD Primary Care Provider Reason for Visit Reason Comments Kidney Problem Encounter Details Date Type Department Care Team Description 02/28/2014 [facility] Tano Vaughn Pyelone phritis (Primary [facility] Emergency MD Navneet Dx) Dept [facility] [address] [place], [place] [address] [facility] [id number] [place] [address] [phone] (Wo rk) Social History Tobacco Use Types Packs/Day Years Used Date Smoking Tobacco: Never Smokeless Tobacco: Never Alcohol Use Standard Drinks/Week Comments Yes 0 (1 standard drink = 0.6 oz pure alcoho l) casual Sex Assigned at Date Recorded Not on file documented as of this encounter Last Filed Vital Signs Vital Sign Reading Time Taken Comments Blood Pressure 109/76 02/28/2014 12:45 PM CDT Pulse 82 02/28/2014 11:33 AM CDT Temperature 36.9 ??C (98.4 ??F) 02/28/2014 11:33 AM CDT Respiratory Rate 18 02/28/2014 11:33 AM CDT Oxygen Saturation 98% 02/28/2014 12:45 PM CDT Inhaled Oxygen Concentration - - Weight - - Height - - Body Mass Index - - documented in this encounter Discharge Instructions Discharge InstructionsTano Vaughn MD - 02/28/2014 2:09 PM CDT Discharge Instructions Urinary Tract Infection You have urinary tract infection, or UTI. The urinary tract includes the kidneys (which make urine),ureters (the tubes that carry urine from the kidneys to the bladder), the bladder (which stores urine), and urethra (the tube that carries urine out of the bladder). Urinary tract infections occur whenbacteria travel up the urethra into the bladder. We suspect a UTI based on chemical and microscopic findings in your urine, but if there is a question about your findings, we will do a culture to see if bacteria grow. A urine culture takes several days. You should always follow-up with your primary physician to find out about results of your culture if one was done. Return to the Emergency Department if: ??? You have severe back pain. ??? You are vomiting so that you can???t take your medicine, or have signs of dehydration (such as urinating less than 3 times per day). ??? You have fever over 101.5 degrees F. ??? You have significant confusion or are very weak, or feel very ill. ??? Your child seems much more ill, won???t wake up, won???t respond right, or is crying for a long time and won???t calm down. ??? Your child is showing signs of dehydration, Signs of dehydration can be: o Your has had no wet diapers in 4-5 hours. o Your older child has not passed urine in 6-8 hours. o Your or child starts to have dry mouth and lips, or no saliva or tears. Follow-up with your doctor: ??? Children under 24 months need to be seen by their regular doctor within one week after a diagnosis of a UTI. It may be necessary to do some imaging tests to look at the child???s kidney or bladder. ??? You should begin to feel better within 24 - 48 hours of starting your antibiotic. If you do not,you need to be seen again. Treatment: ??? You will be treated with an antibiotic to kill the bacteria. We have to make an educated guess as to which antibiotic will work for your infection. In most healthy people, we can guess right almostall of the time. Sometimes a culture is done to show which antibiotics will work. This usually takes2-3 days. When the culture is done, we may have to contact you to put you on a different antibiotic. ??? Take a pain medication such as Tylenol?? (acetaminophen), Advil?? (ibuprofen), Nuprin?? (ibuprofen), or Aleve?? (naproxen). If you have been given a narcotic such as Vicodin?? (hydrocodone with acetaminophen), Percocet?? (oxycodone with acetaminophen), or codeine, do not drive for four hours afteryou have taken it. If the narcotic contains Tylenol?? (acetaminophen), do not take Tylenol?? with it. All narcotics will cause constipation, so eat a high fiber diet. ??? Pyridium?? (phenazopyridine) or Uristat?? (phenazopyridine) is a prescription medication that numbs the bladder to reduce the burning pain of some UTIs. The same medication is available in a non-prescription version called Azo-Standard?? (phenazopyridine), Urodol?? (phenazopyridine), or other brand names. This medication will change the color of the urine and tears (usually blue or orange). If you wear contacts, do not wear them while taking this medication as they may be stained by the medication. Antibiotic Warning: ??? If you have been placed on antibiotics - watch for signs of allergic reaction. These include rash, lip swelling, difficulty breathing, wheezing, and dizziness. If you develop any of these symptoms,stop the antibiotic immediately and go to an emergency room or urgent care for evaluation. Probiotics: If you have been given an antibiotic, you may want to also take a probiotic pill or eat yogurt with live cultures. Probiotics have good bacteria to help your intestines stay healthy. Studies have shown that probiotics help prevent diarrhea and other intestine problems (including C. diff infection) when you take antibiotics. You can buy these without a prescription in the pharmacy section of the store. If you were given a prescription for [...] call or return to the Emergency Department. Opioid Medication Information Pain medications are among the most commonly prescribed medicines, so we are including this information for all our patients. If you did not receive pain medication or get a prescription for pain medicine, you can ignore it. You may have been given a prescription for an opioid (narcotic) pain medicine and/or have received apain medicine while here in the Emergency Department. These medicines can make you drowsy or impaired. You must not drive, operate dangerous equipment, or engage in any other dangerous activities whiletaking these medications. If you drive while taking these medications, you could be arrested for DUI, or driving under the influence. Do not drink any alcohol while you are taking these medications. Opioid pain medications can cause addiction. If you have a history of chemical dependency of any type, you are at a higher risk of becoming addicted to pain medications. Only take these prescribed medications to treat your pain when all other options have been tried. Take it for as short a time and asfew doses as possible. Store your pain pills in a secure place, as they are frequently stolen and provide a dangerous opportunity for children or visitors in your house to start abusing these powerful medications. We will not replace any lost or stolen medicine. As soon as your pain is better, you should flush all your remaining medication. Many prescription pain medications contain Tylenol?? (acetaminophen), including Vicodin??, Tylenol #3??, [place]??, Lortab??, and Percocet??. You should not take any extra pills of Tylenol?? if you are using these prescription medications or you can get very sick. Do not ever take more than 3000 mg of acetaminophen in any 24 hour period. All opioids tend to cause constipation. Drink plenty of water and eat foods that have a lot of fiber, such as fruits, vegetables, prune juice, apple juice and high fiber cereal. Take a laxative if you don???t move your bowels at least every other day. Miralax??, Milk of Magnesia, Colace??, or Senna?? can be used to keep you regular. Remember that you can always come back to the Emergency Department if you are not able to see your regular doctor in the amount of time listed above, if you get any new symptoms, or if there is anything that worries you. documented in this encounter Medications at Time of Discharge Medication Sig Dispensed Refills Start Date End Date levonorgestrel-ethinyl Take 1 tablet by 3 Package 2 014 estradiol mouth daily (AVIANE,ALESSE,LESSINA) 0.1-20 MG-MCG per tabletIndications: Contraception ciprofloxacin (CIPRO) 500 Take 1 tablet (500 14 tablet 0 03/07/2014 MG tablet mg) by mouth 2 times daily for 7 days ondansetron (ZOFRAN ODT) 4 Take 1 tablet (4 10 tablet 0 01/201403/03/2014 MG disintegrating tablet mg) by mouth every 8 hours as needed for nausea HYDROcodone-acetaminophen Take 1 tablet by 15 tablet 0 01/201410/13/2019 (NORCO) 5-325 MG per mouth every 6 hours tablet as needed for moderate to severe pain documented as of this encounter ED Notes Malika Ariza RN - 02/28/2014 2:42 PM CDT IV removed at this time prior to discharge. Tano Vaughn MD - 02/28/2014 12:30 PM CDT History Chief Complaint: Abdominal Pain HPI: The history is provided by the patient. Estefania Mckeon is a 28 year old female with a history of kidney stones who presents with abdominal pain. The patient reports mild left lower quadrant abdominal pain for the past couple of days that worsened drastically this morning after urinating. She was worried that the pain may be due to kidney stones, so she came in to the ER. Here she rates her pain as 6/10 in severity. She denies any dysuria, hematuria, or urinary frequency. No fevers, nausea, vomiting, or diarrhea. Allergies: Benadryl Amoxicillin Medications: Levonorgestrel-ethinyl estradiol Past Medical History: Kidney stone Anemia Past Surgical History: *Removal of stone through cysto EGD Appendectomy Esophagoscopy, gastroscopy, duodenoscopy, combined Family / Social History: Diabetes (father, paternal aunt, paternal uncle) Hypertension (father, maternal grandmother, maternal grandfather) Hyperlipidemia (father, mother) CAD (maternal grandfather) Kidney stones (paternal grandfather) Asthma (paternal aunt) Social History: Marital Status: Single [1] Social History: never smoker, occasional alcohol use Patient presents to the ER alone Review of Systems Constitutional: Negative for fever. Gastrointestinal: Positive for abdominal pain. Negative for nausea, vomiting and diarrhea. Genitourinary: Negative for dysuria, frequency and hematuria. All other systems reviewed and are negative. Physical Exam First Vitals: BP: 119/93 mmHg Pulse: 82 Temp: 98.4 ??F (36.9 ??C) Resp: 18 SpO2: 100 % Physical Exam Constitutional: Alert, attentive, GCS 15, moderate pain distress HENT: Nose: Nose normal. Mouth/Throat: Oropharynx is clear, mucous membranes are moist Eyes: EOM are normal. Pupils are equal, round, and reactive to light. CV: regular rate and rhythm; no murmurs, rubs or gallups Chest: Effort normal and breath sounds normal. GI: There is no tenderness. No distension. Normal bowel sounds +L CVA tenderness MSK: Normal range of motion. Neurological: Alert, attentive Skin: Skin is warm and dry. Emergency Department Course Imaging: Radiographic findings were communicated with the patient who voiced understanding of the findings. CT Abdomen/Pelvis Impression: 1. Extensive calculi identified in the right kidney with caliectasis involving the upper pole of theright kidney which has progressed since 03/01/10. 2. Nonobstructing left nephrolithiasis which is unchanged. 3. Remainder of the scan is negative and unchanged. Preliminary reading per radiology. Laboratory: CBC: wbc 5.6, hgb 12.8, plt 213 BMP: creat 0.72, o/w wnl UA: yellow and slightly cloudy, trace blood, nitrite positive, leuk est large, wbc 144, rbc 4, squamep 3, mucous present HCG qual: negative Urine culture: pending Interventions: Saline 1 L IV injection Morphine 4 mg IV injection x 2 Toradol 30 mg IV injection Levaquin 750 mg IV injection Emergency Department Course: I examined the patient. Plan of care discussed. The patient agrees with this plan. IV inserted and blood drawn. 1315 - CT abdomen/pelvis obtained. Results as above. Findings discussed with the patient. I discussed the laboratory and radiology results with the patient and she understands. The patient felt improved after the above interventions. She will be discharged home to follow up with primary care doctor per discharge instructions. Indications for return to the ED were discussed and the patient u nderstands. All questions were answered prior to discharge. I personally reviewed the laboratory results with the patient and answered all related questions prior to discharge. Discharge Orders: Cipro 500 mg tablets PO 2 times daily, 7 days Zofran 4 mg disintegrating tablet PO every 8 hours PRN Hydrocodone-acetaminophen 5-325 mg per tablet PO every 6 hours PRN, 15 tablets Impression & Plan Medical Decision Making: Estefania Mckeon is a 28 year old female who presents with symptoms consistent with pyelonephritis,with or without ureterolithiasis. Urinalysis confirms the infection. She is not . UA is consistent with infection. There has been no fever, vomiting or evidence of sepsis. Given history of ureterolithiasis, CT was performed and shows no obstructing stones. There is no clinical evidence of appendicitis or diverticulitis. I will start Ms Mckeon on cipro for 7 days for the infection. Levaquin 750 mg PO was given in the department. I recommended she return immediately for increasing pain, vomiting, fever, or inability to tolerate her oral medications. I recommended she follow up with her primary physician in 2-3 days. Diagnosis: ICD-9-CM 1. Pyelonephritis 590.80 Disposition: Home in improved condition Tano Vaughn MD [facility] Emergency Department I, Praneeth Pearl, am serving as a scribe at 12:30 PM on 02/28/2014 to document services personally performed by Tano Vaughn MD, based on my observations and the provider's statements to me. ' Tano Vaughn MD 02/28/14 193 documented in this encounter Plan of Treatment Not on filedocumented as of this encounter Procedures Procedure Name Priority Date/Time Associated Diagnosis Comme nts CT ABDOMEN PELVIS W/O STAT 02/28/2014 12:59 Re sults for this CONTRAST PM CDT procedure are i n the results section. CBC WITH PLATELETS & STAT 02/28/2014 12:38 Res ults for this DIFFERENTIAL PM CDT procedure are i n the results section. BASIC METABOLIC PANEL STAT 02/28/2014 12:38 Re sults for this PM CDT procedure are i n the results section. HCG QUALITATIVE URINE STAT 02/28/2014 11:36 Re sults for this AM CDT procedure are i n the results section. ROUTINE UA WITH STAT 02/28/2014 11:36 Results for this MICROSCOPIC AM CDT procedure are i n the results section. URINE CULTURE Routine 02/28/2014 11:36 Pyelonephritis Results for this AM CDT procedure are i n the results section. documented in this encounter Results Abd/pelvis CT no contrast - Stone Protocol (02/28/2014 12:59 PM CDT) Anatomical Region Laterality Modality Abdomen/Pelvis, SUBRAD CT BODY, UMP CT ABDOMEN PELVIS Computed Tomography Specimen (Source) Anatomical Location Collection Method / Collectio n Time Received Time / Laterality Volume Impressions 02/28/2014 1:15 PM CDT IMPRESSION: 1. Extensive calculi identified in the r ight kidney with caliectasis involving the upper pole of the right ki dney which has progressed since 03/01/10. 2. Nonobstructing left nephrolithiasis w hich is unchanged. 3. Remainder of the scan is negative and unchanged. GILSON BARAJAS MD Narrative 02/28/2014 1:[address] ABDOMEN/PELVIS WITHOUT CONTRAST 02/28/2014 12:59 PM HISTORY: Left lower quadrant pain. TECHNIQUE: Scans were obtained from the diaphragm through the pelvis without IV contrast. COMPARISON: 03/01/10. FINDINGS: Liver, spleen, and pancreas ar e unremarkable. Large staghorn type calculus again noted in the right k idney with multiple smaller nonobstructing calculi in the right kidn ey. Caliectasis secondary to the staghorn calculus identified in the upper pole of the right kidney which has increased since 03/01/10. No u reteral calculus or obstruction on the right. Small nonobstr ucting calculus in the lower pole of the left kidney again noted and unchanged. Left kidney and ureter are otherwise normal without evid ence of obstruction. Colon and small bowel are normal. No abdominal or pelvic adenopathy. Remainder of the scan is negative and unchanged fr om 03/01/10. Procedure Note Gilson Barajas MD - 02/28/2014F ormatting of this note might be different from the original. CT ABDOMEN/PELVIS WITHOUT CONTRAST 2013 12:59 PM HISTORY: Left lower quadrant pain. TECHNIQUE: Scans were obtained from the diaphragm through the pelvis without IV contrast. COMPARISON: 03/01/10. FINDINGS: Liver, spleen, and pancreas ar e unremarkable. Large staghorn type calculus again noted in the right k idney with multiple smaller nonobstructing calculi in the right kidn ey. Caliectasis secondary to the staghorn calculus identified in the upper pole of the right kidney which has increased since 03/01/10. No u reteral calculus or obstruction on the right. Small nonobstr ucting calculus in the lower pole of the left kidney again noted and unchanged. Left kidney and ureter are otherwise normal without evid ence of obstruction. Colon and small bowel are normal. No abdominal or pelvic adenopathy. Remainder of the scan is negative and unchanged fr om 03/01/10. IMPRESSION IMPRESSION: 1. Extensive calculi identified in the r ight kidney with caliectasis involving the upper pole of the right ki dney which has progressed since 03/01/10. 2. Nonobstructing left nephrolithiasis w hich is unchanged. 3. Remainder of the scan is negative and unchanged. GILSON BARAJAS MD Tano Vaughn MD IMG CT ORDERABLES Basic metabolic panel (02/28/2014 12:38 PM CDT) athologist Signature Sodium 138 133 - 144 [place] mmol/L [facility] Potassium 3.9 3.4 - 5.3 [place] mmol/L [facility] Chloride 104 94 - 109 [place] mmol/L [facility] Carbon Dioxide 26 20 - 32 [place] mmol/L [facility] Anion Gap 8 6 - 17 [place] mmol/L [facility] Glucose 86 70 - 99 [place] mg/dL [facility] Comment: Effective 12/19/2013, the reference range for this assay has changed to reflect new instrumentation/methodology. Urea Nitrogen 10 7 - 30 mg/dL [facility] Comment: Effective 12/19/2013, the reference range for this assay has changed to reflect new instrumentation/methodology. Creatinine 0.72 0.52 - 1.04 mg/dL [place] [facility] GFR Estimate >90 >60 mL/min/1.7m2 [place] R [facility] Non GFR Calc [facility]OSPITAL LAB GFR Estimate If Black >90 >60 mL/min/1.7m2 [facility] GFR Calc [facility] LAB Calcium 9.2 8.5 - 10.1 mg/dL [place] [facility] Comment: Effective 12/19/2013, the reference range for this assay has changed to reflect new instrumentation/methodology. Specimen Anatomical Collection Method Collection Time Receive d Time (Source) Location / / Volume Laterality Blood specimen 02/28/2014 12:38 4 (specimen) PM CDT 12:49 PM CDT Tano Vaughn MD LAB - BLOOD ORDERABLES Performing Organization Address City/State/ZIP Code Phon e Number [place] [address] [place], [place] [address] [facility] CBC with platelets differential (02/28/2014 12:38 PM CDT) [facility] gist Method Time Signature WBC 5.6 4.0 - [place] 11.0 [facility] 10e9/L [facility] RBC Count 4.71 3.8 - 5.2 [place] 10e12/L [facility] Hemoglobin 12.8 11.7 - [place] 15.7 g/dL [facility] Hematocrit 40.4 35.0 - [place] 47.0 % [facility] MCV 86 78 - 100 [facility] MCH 27.2 26.5 - [facility] 33.0 pg [facility] MCHC 31.7 31.5 - [place] 36.5 g/dL [facility] RDW 14.7 10.0 - [place] 15.0 % [facility] Platelet Count 213 150 - 450 [place] 10e9/L [facility] Diff Method Automated [facility] % Neutrophils 50.6 % [facility] % Lymphocytes 37.0 % [facility] % Monocytes 10.0 % [facility] % Eosinophils 1.8 % [facility] % Basophils 0.4 % [facility] % Immature 0.2 % [place] Granulocytes [facility] Absolute 2.8 1.6 - 8.3 [place] Neutrophil 10e9/L [facility] Absolute 2.1 0.8 - 5.3 [place] Lymphocytes [address] [place] [address] LAB Absolute 0.6 0.0 - 1.3 [place] Monocytes 10e9/L [facility] Absolute 0.1 0.0 - 0.7 [place] Eosinophils 10e9L [facility] Absolute 0.0 0.0 - 0.2 [place] Basophils [address] [place] [address] LAB Abs Immature 0.0 0 - 0.4 [place] Granulocytes [address] [place] [address] LAB Specimen Anatomical Collection Method Collection Time Receive d Time (Source) Location / / Volume Laterality Blood specimen 02/28/2014 12:38 4 (specimen) PM CDT 12:49 PM CDT Tano Vaughn MD LAB - BLOOD ORDERABLES Performing Organization Address City/State/ZIP Code Phon e Number [place] [address] [place], [place] [address] [facility] (ABNORMAL) Urine culture (02/28/2014 11:36 AM CDT) Component Value Ref Test Analysis Performed At [facility] gist Range Method Time Signature Specimen Midstream Urine [facility] Special Specimen [facility] Requests received in MICROBIOLOGY preservative Culture Micro >100,000 [facility] colonies/mL MICROBIOLOGY Escherichia coli (A) Micro Report FINAL [facility] Status 03/02/2014 MICROBIOLOGY Organism: >100,000 [facility] colonies/mL MICROBIOLOGY Escherichia coli Specimen Anatomical Collection Method Collection Time Receive d Time (Source) Location / / Volume Laterality 02/28/2014 11:36 02/28/2014 2:18 AM CDT PM CDT Organism Antibiotic Method Susceptibility >100,000 colonies/ml Ampicillin <=2 Suscept ible ug/mL escherichia coli (pamela) >100,000 colonies/ml Cefazolin <=4 Suscept ible ug/mL escherichia coli (pamela) >100,000 colonies/ml Cefoxitin <=4 Suscept ible ug/mL escherichia coli (pamela) >100,000 colonies/ml Ceftazidime <=1 Suscept ible ug/mL escherichia coli (pamela) >100,000 colonies/ml Ceftriaxone <=1 Suscept ible ug/mL escherichia coli (pamela) >100,000 colonies/ml Ciprofloxacin <=0.25 Susc eptible ug/mL escherichia coli (pamela) >100,000 colonies/ml Gentamicin <=1 Suscept ible ug/mL escherichia coli (pamela) >100,000 colonies/ml Levofloxacin <=0.12 Susc eptible ug/mL escherichia coli (pamela) >100,000 colonies/ml Nitrofurantoin 32 Suscepti ble ug/mL escherichia coli (pamela) >100,000 colonies/ml Tobramycin <=1 Suscept ible ug/mL escherichia coli (pamela) >100,000 colonies/ml Trimethoprim/Sulfamethoxazol <=1/19 Susceptible ug/mL escherichia coli (pamela) e >100,000 colonies/ml Ampicillin/Sulbactam <=2 Gordon sceptible ug/mL escherichia coli (pamela) >100,000 colonies/ml Piperacillin/Tazo <=4 Susce ptible ug/mL escherichia coli (pamela) >100,000 colonies/ml Cefepime <=1 Suscept ible ug/mL escherichia coli (pamela) Tano Vaughn MD LAB - MICRO GENERAL ORDERABL ES Performing Organization Address City/State/ZIP Code Phon e Number [address] [address] [facility] MICROBIOLOGY HCG qualitative urine (02/28/2014 11:36 AM CDT) athologist Signature HCG Qual Urine Negative NEG [facility] Specimen Anatomical Collection Method Collection Time Receive d Time (Source) Location / / Volume Laterality Urine specimen URINE SPECIMEN 02/28/2014 11:36 014 1:39 (specimen) OBTAINED BY CLEAN AM CDT PM CDT CATCH PROCEDURE / Unknown Tano Vaughn MD LAB - URINE ORDERABLES Performing Organization Address City/State/ZIP Code Phon e Number [facility] [address] [place], [place] [address] [facility] (ABNORMAL) UA with Microscopic (02/28/2014 11:36 AM CDT) [facility] Method Time Signature Color Urine Light Yellow [facility] Appearance Urine Slightly [place] Cloudy [facility] Glucose Urine Negative NEG mg/dL [facility] Bilirubin Urine Negative NEG [facility] Ketones Urine Negative NEG mg/dL [facility] Specific [place] 1.009 1.003 - [place] Urine 1.035 [facility] Blood Urine Trace (A) NEG [facility] pH Urine 6.0 5.0 - 7.0 [place] pH [facility] Protein Albumin Negative NEG mg/dL [facility] Urobilinogen Normal 0.0 - 2.0 [place] mg/dL mg/dL [facility] Nitrite Urine Positive (A) NEG [facility] Leukocyte Large (A) NEG [place] Esterase [facility] Source Midstream [facility] WBC Urine 144 (H) 0 - 2 [facility] RBC Urine 4 (H) 0 - 2 [facility] Squamous 3 (H) 0 - 1 [place] Epithelial /[facility] Mucous Urine Present (A) NEG /LPF [facility] Specimen Anatomical Collection Method Collection Time Receive d Time (Source) Location / / Volume Laterality Urine specimen URINE SPECIMEN 02/28/2014 11:36 014 1:39 (specimen) OBTAINED BY CLEAN AM CDT PM CDT CATCH PROCEDURE / Unknown Tano Vaughn MD LAB - URINE ORDERABLES Performing Organization Address City/State/ZIP Code Phon e Number [facility] [address] [place], [place] [address] [facility] documented in this encounter Visit Diagnoses Diagnosis Pyelonephritis - Primary Pyelonephritis, unspecified documented in this encounter Administered Medications Inactive Administered Medications - up to 3 most recent administrations Medication Order MAR Action Action Date Dose Rate Site ketorolac (TORADOL) injection 30 Given 02/28/2014 12:45 PM CDT 3 0 mg mg 30 mg, Intravenous, ONCE, On Chelly 02/28/14 at 1235, For 1 dose, Do not give within 6 hours of Ibuprofen. levofloxacin (LEVAQUIN) tablet 750 mg Given 02/28/2014 2:35 PM CDT 750 mg STAT, 750 mg, Oral, ONCE, On Chelly 02/28/14 at 1409, For 1 dose, Indications: Urinary Tract Infection morphine (PF) injection 4 mg Given 02/28/2014 2:32 PM CDT 4 mg 4 mg, Intravenous, EVERY 15 MIN PRN, moderate to severe pain, Starting on Chelly 02/28/14 at 1233, For 3 doses Given 02/28/2014 12:45 PM CDT 4 mg sodium chloride 0.9 % BOLUS New Bag 02/28/2014 12:41 PM CDT 1, 000 mLs 1000 mL/hr 1,000 mL Intravenous, 1,000 mL, ONCE, at 1,000 mL/hr, Administer over 1 Hours, On Chelly 02/28/14 at 1235, For 1 dose documented in this encounter Active and Recently Administered Medications Times are shown in CDT. Scheduled Medication Order 02/26/2014 02/27/2014 02/28/2014 ketorolac (TORADOL) injection 30 mg (COMPLETED) 1245 (Given - Provider: Francisca Isidro RN) 30 mg, Intravenous, ONCE, Chelly 02/28/14 at 1235, For 1 dose, Do not give within 6 hours of Ibuprofen. levofloxacin (LEVAQUIN) tablet 750 mg (COMPLETED) 1435 (Given - Provider: Malika Ariza RN) 750 mg, Oral, ONCE, Chelly 02/28/14 at 1409, For 1 dose sodium chloride 0.9 % BOLUS 1,000 mL (COMPLETED) 1241 (New Bag - Provider: Kylah Lopez)1421 (Stopped - Provider: Malika Ariza RN) Intravenous, 1,000 mL, ONCE, at 1,000 mL /hr, Administer over 1 Hours, On Chelly 02/28/14 at 1235, For 1 dose PRN Medication Order 02/26/2014 02/27/2014 02/28/2014 morphine (PF) injection 4 mg (CANCELED) 1245 (Given - Provider: Francisca Isidro RN)1432 (Given - Provider: Malika Ariza RN) 4 mg, Intravenous, EVERY 15 MIN PRN, mod erate to severe pain, Starting Chelly 02/28/14 at 1233, For 3 doses documented in this encounter Care Teams Note Keeper Relationship Specialty Start Date End Date Alisa, Suzanne, MD PCP - General 07/08/01 10/12/19 [address] [address] documented as of this encounter
--- OUTSIDE RECORDS SUMMARY | 2022-04-25 22:24 | XMS_ITS | Encounter Summary ---
:1985 Author Organization [facility] Address [address] [place] [address] Care Team Providers Name Role Phone Janis Cuellar MD Primary Care Provider Encounter Details Date Type Department Care Team Description 07/29/2012 Results Only [facility] Sarahy HORTON [address] [facility] [address] [place] [phone] [address] [place], [place] [phone] (Wo rk) Social History Tobacco Use Types Packs/Day Years Used Date Smoking Tobacco: Never Smokeless Tobacco: Never Alcohol Use Standard Drinks/Week Comments Yes 0 (1 standard drink = 0.6 oz pure alcoho l) casual Sex Assigned at Date Recorded Not on file documented as of this encounter Plan of Treatment Scheduled Orders Name Type Priority Associated Diagnoses Order S chedule US Hysterosonography Imaging Ordered : 07/29/2012 documented as of this encounter Visit Diagnoses Not on filedocumented in this encounter Care Teams Telecommunications Switch Technician Relationship Specialty Start Date End Date Janis Cuellar MD PCP - General 07/08/01 10/12/19 [address] [place], [place] [phone] documented as of this encounter
--- OUTSIDE RECORDS SUMMARY | 2022-04-25 22:24 | XMS_ITS | Encounter Summary ---
:1985 Author Organization [facility] Address [address] [place] [address] Care Team Providers Name Role Phone Janis Cuellar MD Primary Care Provider Encounter Details Date Type Department Care Team Description 08/07/2012 External Order [facility] Janis Cuellar MD Results [facility] [place] [address] [facility] [address] [place] [address] [place], [place] [phone] (Wo rk) [phone] Social History Tobacco Use Types Packs/Day Years [...] Name Priority Date/Time Associated Diagnosis Comme nts COLONOSCOPY Routine 08/07/2012 documented in this encounter Results COLONOSCOPY (08/07/2012) Narrative This result has an attachment that is no t available. Provider Abstract PROCEDURES documented in this encounter Visit Diagnoses Not on filedocumented in this encounter Care Teams Object Oriented Programmer Relationship Specialty Start Date End Date Janis Cuellar MD PCP - General 07/08/01 10/12/19 [address] [place], [place] [phone] documented as of this encounter
--- OUTSIDE RECORDS SUMMARY | 2022-04-25 22:24 | XMS_ITS | Encounter Summary ---
:1985 Author Organization [facility] Address [address] [place] [address] Care Team Providers Name Role Phone Janis Cuellar MD Primary Care Provider Reason for Visit Reason Comments Infusion Venofer Encounter Details Date Type Department Care Team Description 11/21/2013 Infusion Therapy [facility] Janis Cuellar MD Iron (Fe) deficiency [facility] [address] [facility] [address] [place] [phone] Social History Tobacco Use Types Packs/Day Years Used Date Smoking Tobacco: Never Smokeless Tobacco: Never Alcohol Use Standard Drinks/Week Comments Yes 0 (1 standard drink = 0.6 oz pure alcoho l) casual Sex Assigned at Date Recorded Not on file documented as of this encounter Last Filed Vital Signs Vital Sign Reading Time Taken Comments Blood Pressure 102/69 11/21/2013 8:01 AM CDT Pulse 85 11/21/2013 8:01 AM CDT Temperature 36.4 ??C (97.5 ??F) 11/21/2013 8:01 AM CDT Respiratory Rate 16 11/21/2013 8:01 AM CDT Oxygen Saturation - - Inhaled Oxygen Concentration - - Weight - - Height - - Body Mass Index - - documented in this encounter Progress Notes Lizbeth Go RN - 11/21/2013 8:14 AM CDT Patient tolerated Venofer without incident. Patient discharged in the care of self. Patient aware ofnext appointment. documented in this encounter Plan of Treatment Not on filedocumented as of this encounter Visit Diagnoses Diagnosis Iron (Fe) deficiency anemia Iron deficiency anemia, unspecified documented in this encounter Administered Medications Inactive Administered Medications - up to 3 most recent administrations Medication Order MAR Action Action Date Dose Rate Site iron sucrose (VENOFER) 200 mg New Bag 11/21/2013 7:55 AM CDT 200 m g 440 mL/hr in NaCl 0.9 % 100 mL IVPB 200 mg, Intravenous, Administer over 15 Minutes, at 440 mL/hr, ONCE, On Tue11/21/13 at 0745, For 1 dose, Given at least 48 hours apart. sodium chloride 0.9 % BOLUS 250 mL New Bag 11/21/2013 7:55 AM CDT 250 mLs Intravenous, 250 mL, ONCE, On Tue11/21/13 at 0745, For 1 dose, Concominate fluids documented in this encounter Care Teams Firer Retort Relationship Specialty Start Date End Date Janis Cuellar MD PCP - General 07/08/01 10/12/19 [address] [facility] [address] [place] [address] documented as of this encounter
--- OUTSIDE RECORDS SUMMARY | 2022-04-25 22:24 | XMS_ITS | Encounter Summary ---
:1985 Author Organization [facility] Address [address] [place] [address] Care Team Providers Name Role Phone Janis Cuellar MD Primary Care Provider Reason for Visit Reason Comments Infusion venofer Encounter Details Date Type Department Care Team Description 11/09/2013 Infusion Therapy [facility] Janis Cuellar MD Iron (Fe) deficiency Visit [facility] [address] anemia [facility] [address] [place] [phone] Social History Tobacco Use Types Packs/Day Years Used Date Smoking Tobacco: Never Smokeless Tobacco: Never Alcohol Use Standard Drinks/Week Comments Yes 0 (1 standard drink = 0.6 oz pure alcoho l) casual Sex Assigned at Date Recorded Not on file documented as of this encounter Last Filed Vital Signs Vital Sign Reading Time Taken Comments Blood Pressure 109/64 11/09/2013 8:15 AM CDT Pulse 91 11/09/2013 8:15 AM CDT Temperature 36.1 ??C (97 ??F) 11/09/2013 8:15 AM CDT Respiratory Rate 16 11/09/2013 8:15 AM CDT Oxygen Saturation - - Inhaled Oxygen Concentration - - Weight - - Height - - Body Mass Index - - documented in this encounter Progress Notes Violette Gore RN - 11/09/2013 9:12 AM CDT Patient her for venofer infusion. Patient tolerated procedure without [...] iron sucrose (VENOFER) 100 mg New Bag 11/09/2013 8:29 AM CDT 100 m g 420 mL/hr in NaCl 0.9% 100 mL IVPB 100 mg, Intravenous, Administer over 15 Minutes, at 420 mL/hr, ONCE, On Tue11/09/13 at 0815, For 1 dose, Given at least 48 hours apart. sodium chloride 0.9 % BOLUS 250 mL New Bag 11/09/2013 8:29 AM CDT 250 mLs Intravenous, 250 mL, ONCE, On Tue11/09/13 at 0815, For 1 dose, Concominate fluids documented in this encounter Care Teams Kindergarten Tutor Relationship Specialty Start Date End Date Janis Cuellar MD PCP - General 07/08/01 10/12/19 [address] [facility] [address] [place] [address] documented as of this encounter
--- OUTSIDE RECORDS SUMMARY | 2022-04-25 22:24 | XMS_ITS | Encounter Summary ---
:1985 Author Organization [facility] Address [address] [place] [address] Care Team Providers Name Role Phone Rodolfo Cuellar MD Primary Care Provider Encounter Details Date Type Department Care Team Description 11/07/2013 Orders Only [facility] Iro n (Fe) deficiency [facility] [address] [place] [phone] Social History Tobacco Use Types Packs/Day Years Used Date Smoking Tobacco: Never Smokeless Tobacco: Never Alcohol Use Standard Drinks/Week Comments Yes 0 (1 standard drink = 0.6 oz pure alcoho l) casual Sex Assigned at Date Recorded Not on file documented as of this encounter Miscellaneous Notes Addendum Note - Rodolfo Cuellar MD - 11/08/2013 2:58 PM CDT Addended by: RODOLFO CUELLAR on: 11/08/2013 02:58 PM Modules accepted: Orders documented in this encounter Plan of Treatment Not on filedocumented as of this encounter Procedures Procedure Name Priority Date/Time Associated Comments Diagnosis IRON AND IRON Routine 11/07/2013 4:40 PM Iron (Fe) Results for this B[facility] CDT deficiency anemia proced ure are in the results section. HEMOGLOBIN Routine 11/07/2013 4:40 PM Iron (Fe) Results f or this CDT deficiency anemia procedure are in the results section. FERRITIN Routine 11/07/2013 4:40 PM Iron (Fe) Results f or this CDT deficiency anemia procedure are in the results section. documented in this encounter Results (ABNORMAL) Hemoglobin (11/07/2013 4:40 PM CDT) athologist Signature Hemoglobin 5.5 (LL) 11.7 - [facility] 15.7 g/dL [facility] Comment: Results confirmed by repeat test Critical Value called to and read back by DR CUELLAR @ [phone] ??JR Specimen Anatomical Collection Method Collection Time Receive d Time (Source) Location / / Volume Laterality Blood specimen 11/07/2013 4:40 PM 014 4:42 (specimen) CDT PM CDT Rodolfo Cuellar MD LAB - BLOOD ORDERABLES Performing Organization Address City/[facility]/ZIP Code Phon e Number [facility] [address] [place], [place] [address] [address] (ABNORMAL) Ferritin (11/07/2013 4:40 PM CDT) athologist Signature Ferritin 2 (L) 10 - 120 [facility] ng/mL [place] Specimen Anatomical Collection Method Collection Time Receive d Time (Source) Location / / Volume Laterality Blood specimen 11/07/2013 4:40 PM 014 4:42 (specimen) CDT PM CDT Rodolfo Cuellar MD LAB - BLOOD ORDERABLES Performing Organization Address City/[facility]/ZIP Code Phon e Number [facility] [address] [place] [address] [facility] [address] [place], [place] [address] (ABNORMAL) Iron and iron binding capacity (11/07/2013 4:40 PM CDT) [facility] gist Method Time Signature Iron 22 (L) 35 - 180 [facility] ug/dL [facility] Iron Binding 526 (H) 240 - 430 [facility] Cap ug/dL [facility] Iron Saturation 4 (L) 15 - 46 % [place] Index [facility] Specimen Anatomical Collection Method Collection Time Receive d Time (Source) Location / / Volume Laterality Blood specimen 11/07/2013 4:40 PM 014 4:42 (specimen) CDT PM CDT Rodolfo Cuellar MD LAB - BLOOD ORDERABLES Performing Organization Address City/[facility]/ZIP Code Phon e Number [facility] [address] [place] [address] [facility] [address] [place], [place] [address] documented in this encounter Visit Diagnoses Diagnosis Iron (Fe) deficiency anemia Iron deficiency anemia, unspecified documented in this encounter Care Teams [employer] Relationship Specialty Start Date End Date Rodolfo Cuellar MD PCP - General 07/08/01 10/12/19 [address] [address] documented as of this encounter
--- OUTSIDE RECORDS SUMMARY | 2022-04-25 22:24 | XMS_ITS | Encounter Summary ---
:1985 Author Organization [place] Address [address] [place] [address] Care Team Providers Name Role Phone Janis Cardona MD Primary Care Provider Reason for Visit Reason Comments Allergic Reaction Auth/Cert - Closed Specialty Diagnoses / Procedures Referred By Contact Refer red To Contact Diagnoses Orthostatic hypotension Chronic blood loss anemia GIB (gastrointestinal bleeding) Dizziness - light-headed [id number] deficiency [id number] iron deficiency anemia Rh 5 Medical Surgical Procedures COMBINED ESOPHAGOSCOPY, GASTROSCOPY, DUODENOSCOPY (EGD) [address] [place], [place] [address] Phone: Fax: Referral ID Status Reason Start Date Expiration Date Visits Requ ested Visits Authorized Closed 07/25/2012 01/21/2013 Encounter Details Date Type Department Care Team Description 07/24/2012 - Emergency [facility] Jr Martínez MD [facility] [address] [facility] [address] [place], [place] [address] Orthostatic hypotension (Primary Dx); 07/26/2012 [place] [address] Medical Clay Palmer MD [address] [place], [place] [id number] GIB (gastrointestinal bleeding); Surgical Chronic blood loss anemia; [address] Dizziness - light-headed; [place] Iron deficien cy anemia [id number] Social History Tobacco Use Types Packs/Day Years Used Date Smoking Tobacco: Never Smokeless Tobacco: Never Alcohol Use Standard Drinks/Week Comments Yes 0 (1 standard drink = 0.6 oz pure alcoho l) casual Sex Assigned at Date Recorded Not on file documented as of this encounter Last Filed Vital Signs Vital Sign Reading Time Taken Comments Blood Pressure 114/67 07/26/2012 12:08 PM [employer] [employer] [employer] Pulse 133 07/24/2012 7:10 PM [employer] Temperature 36.7 ??C (98.1 ??F) 07/26/2012 12:08 PM [employer] [employer] Respiratory Rate 16 07/26/2012 12:08 PM [employer] [employer] [employer] Oxygen Saturation 100% 07/26/2012 12:08 PM [employer] [employer] Inhaled Oxygen Concentration - - Weight 55.8 kg (123 lb) 07/24/2012 7:10 PM [employer] Height 172.7 cm (5' 8) 07/25/2012 12:40 AM [employer] [employer] Body Mass Index 18.7 07/24/2012 7:10 PM [employer] documented in this encounter Discharge Summaries Ginna [...] size and her iron transfusion reaction. 3. [facility], Dr. Ha Romero, will follow up with the patient regarding getting set up for colonoscopy as well as followup of duodenal biopsies and celiac serologies. Note that 25 minutes was spent on this discharge, of which greater than 50% of the time was spent incoordination of care. GINNA VYAS MD MT: #[id number] Name: ESTEFANIA MCKEON Account: [id number] : 1985 Admit Date: Discharge Date: Document: [id number] cc: Ha Romero MD documented in this encounter Discharge Instructions Discharge InstructionsBreann Jc Natalie - 07/26/2012 1:58 PM CST Images [...] or passing red or black-colored stool ?? [phone] [place] [address]. All rights reserved. This information is not intended as a substitute for professional medical care. Always follow your healthcare professional's instructions. [employer] documented in this encounter Medications at Time of Discharge Medication Sig Dispensed Refills Start Date End Date pantoprazole (PROTONIX) Take 1 tablet by 30 tablet 0 201206/18/2013 40 MG enteric coated mouth every morning tabletIndications: Iron (before breakfast). deficiency anemia documented as of this encounter Progress Notes Clay Palmer MD - 07/27/2012 11:44 AM CST [employer] Breann Jc - 07/26/2012 2:05 PM CST Reviewed discharge [...] patient request. OBSERVATION patient END time: 1410 [employer] Ginna Vyas MD - 07/25/2012 2:31 PM CST [facility] Hospitalist Progress Note Interval History: Continues to [...] 1. Anemia: 3-4 year history of this. KEZIA now and at previous diagnosis. Intolerant to [...] PPX: PCDs Code: Full Dispo: Home tomorrow [employer] documented in this encounter H&P Notes Janie Guillaume RN - 07/25/2012 5:16 PM CST 1 unit blood started at 1715. BP 89/53 Pulse 133 Temp(Src) 98.3 ??F (36.8 ??C) (Oral) Resp 16 Ht 1.727 m (5' 8) Wt 55.792 kg (123 lb) BMI 18.70 kg/m2 SpO2 100% LMP 07/03/2012 ? No [employer] Clay Palmer MD - 07/25/2012 12:15 AM [...] oral iron in the past and Dr. Alisa started her on iron transfusion therapy. She [...] states that apparently she has seen a inseminator in the distant past. It sounds like she may have been evaluated by a crystal growing technician one point as well. She has never seen a before school and never had any endoscopy studies performed. [...] smoking or drinking. 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 REVIEW OF SYSTEMS: Please see HPI for [...] PALMER MD MT: [id number] Name: ESTEFANIA MCKEON Account: [id number] : 1985 Admitted: [id number] Document: [id number] [employer] documented in this encounter Consult Notes uJdit Nuno RD, LD - 07/25/2012 12:38 PM [...] weeks. ASSESSED NUTRITION NEEDS: Estimated Energy Needs: 1418-2757 kcals/day (30-35 kcals/kg) - Increased for wt [...] Pt encouraged to trial supplements such as [place] Instant Breakfast if wt loss continues. Implementation [...] stooling. Judit Nuno RD, LD Clinical Dietitian ECTION [employer]ER HEAD Ha Romero DO - 07/25/2012 8:59 AM CSTAssociated Order(s): GASTROENTEROLOGY IP CONSULT GASTROENTEROLOGY CONSULTATION Estefania Mckeon [address] [place] [address] 27 year old female Admission Date/Time: 07/24/2012 [...] follow with further recs. Ha Romero DO [facility] [place] Addendum: Please encourage pt to avoid NSAIDs [...] lab test results. Recent Labs Lab Test 07/25/1263407/24/12194707/21/1292306/01/07 1805 WBC 5.8 12.9* 4.0 -- HGB [...] -- -- -- Recent Labs Lab Test 07/24/12 1948 07/21/12 0924 06/08/12 1235 08/17/11 1640 02/28/10 2239 08/31/08 1650 [...] I reviewed the patient's new imaging results. [employer] documented in this encounter Nursing Notes Lory Rojas RN - 07/25/2012 10:20 AM CST EGD report called to Breann RODRIGUEZ on 5th floor/WW [employer] documented in this encounter ED Notes Kathleen Henley RN - 07/24/2012 11:37 PM CST Patient denies any pain complains feeling tired. Voices no needs at this time. ECTION [employer]ICER HEAD Louisa Vickers RN - 07/24/2012 8:25 PM CST After giving IV Benadryl, pt's heart rate increased from 82 to 137. States that she feels light headed and very similar to when she was at the clinic. No history of a benadryl allergy. notified. [employer]CTION [employer]ER HEAD Kathleen Henley RN - 07/24/2012 8:10 PM CST Patient resting, denies any pain or SOB, complains of feeling tired. Voices no needs at this time. NSR on monitor. ECTION [employer]ICER HEAD Kathleen Henley RN - 07/24/2012 7:48 PM CST Labs drawn with IV insertion and sent ECTION OFFICER HEAD rJ Martínez MD - 07/24/2012 7:16 PM CST History Chief Complaint: Lightheadedness, Dizziness, and Weakness HPI Estefania Mckeon is a 27 year old female with a history of kidney stones and iron deficiency anemiawho presents with lightheadedness, dizziness, and weakness following an iron transfusion. The patient states today she had her first iron transfusion (at [facility]) for idiopathic anemia as anoutpatient. She states [...] - - - 100 % - 07/24/12 2153 89/69 mmHg - - - 22 100 % - 07/24/12 2151 101/66 mmHg - - - 16 100 % - 07/24/12 2150 87/59 mmHg - - - 16 100 % - 07/24/12 2130 96/58 mmHg - - - - 94 % - 07/24/122099 92/64 mmHg - - - - 100 % - 07/24/122029 98/74 mmHg - - - - 100 [...] Normal sinus rhythm, ventricular rate 96 bpm. PA Interval: 114 ms QRS Duration: 82 ms [...] The patient was placed on a continuous hall monitor and pulse oximeter. IV inserted. 1921 The [...] She presents following an iron transfusion at [facility] today. She stated that she was given [...] statements to me. Jr Martínez MD 07/24/12 3972 [employer] Ivonne Roach RN - 07/24/2012 7:13 PM CST Pt had an iron infusion today for anemia, now c/o feeling dizzy, lightheaded, also c/o joint pain and had swelling. States she feels like she cant take a deep breath. 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 Up to bathroom ind. Pt stated that she has not had BM for over 4 days, does not feel constipated. BS hypo, abd soft, passing flatus. HGB to be drawn in AM [employer] Plan of Care - Janie Guillaume RN - 07/25/2012 11:41 PM CST Problem: IP GENERAL POC-ADULT,OB,BEHAVIORAL FVCPM Goal: Individualization/Patient-Specific Goal (Adult,OB,Behavioral The patient and/or their sales representative facility services will achieve their patient-specific goals related to [...] kg/m2 SpO2 100% LMP 07/03/2012 ? No [employer] Plan of Care - Breann Jc - 07/25/2012 3:08 PM CST Problem: IP GENERAL POC-ADULT,OB,BEHAVIORAL FVCPM Goal: Individualization/Patient-Specific Goal (Adult,OB,Behavioral The patient and/or their sales representative facility services will achieve their patient-specific goals related to [...] Started on regular diet. PO protonix continued. [employer] [employer] Pharmacy-Admission Medication History - Shannon Elliott RPH - 07/25/2012 2:55 PM CST Admission medication history interview status for this patient is complete. See [facility] admission navigator for allergy information, prior to admission medications and immunization status. Medication history interview source(s):Patient Medication history resources (including written lists, pill bottles, clinic record):None [facility] Actions taken by pharmacist (provider contacted, etc):None Additional medication history information:None Medication reconciliation/reorder completed by provider prior to medication history? No Prior to Admission Medications Medication Last Dose Informant Patient Reported? Taking? NO ACTIVE MEDICATIONS Yes Yes [employer]ER HEAD Utilization Review - Edward Jensen MD - 07/25/2012 1:05 PM CST [facility] Admission Status; Secondary Review Determination Admission [...] JENSEN MD Physician Advisor - Utilization Review [facility]. ECTION [employer]ICER HEAD Plan of Care - Marline Jara RN - 07/25/2012 7:15 AM CST Problem: IP GENERAL POC-ADULT,OB,BEHAVIORAL FVCPM Goal: Individualization/Patient-Specific Goal (Adult,OB,Behavioral The patient and/or their sales representative facility services will achieve their patient-specific goals related to the plan of care. The patient-specific goals include: 1.First iron transfusion 07/24/12 for iron deficiency anemia. 2.Possible reaction to transfusion. 3.GI consult. Outcome: No Change BP 90's/50's. Color pale. No stools. Tylenol for discomfort. [employer]ER [employer] documented in this encounter Plan of Treatment Not on filedocumented as of this encounter Procedures Procedure Name Priority Date/Time Associated Comments Diagnosis INR Routine 07/26/2012 6:30 Results for this AM [employer] procedure are i n the results section. PARTIAL THROMBOPLASTIN Routine 07/26/2012 6:30 Re sults for this TIME AM [employer] procedure are i n the results section. HEMOGLOBIN Routine 07/26/2012 6:30 Results for this AM [employer] [facility] procedure are i n the results section. TISSUE TRANSGLUTAMINASE Routine 07/25/2012 11:55 Results for this ANTIBODY IGA AM [employer] [facility] procedure are i n the results section. SURGICAL PATHOLOGY EXAM Routine 07/25/2012 9:33 R esults for this AM [employer] procedure are i n the results section. UPPER GI ENDOSCOPY Routine 07/25/2012 9:30 Result s for this AM [employer] procedure are i n the results section. ESOPHAGOGASTRODUODENOSCO 07/25/2012 9:13 iron deficien cy PY, WITH BIOPSY AM [employer] anemia INR Routine 07/25/2012 6:35 Results for this AM [employer] procedure are i n the results section. PARTIAL THROMBOPLASTIN Routine 07/25/2012 6:35 Re sults for this TIME AM [employer] procedure are i n the results section. CBC WITH PLATELETS Routine 07/25/2012 6:35 Result s for this AM [employer] procedure are i n the results section. XR CHEST PORT 1 VIEW STAT 07/24/2012 9:12 Resu lts for this PM [employer] procedure are i n the results section. CBC WITH PLATELETS & STAT 07/24/2012 7:48 Resu lts for this DIFFERENTIAL PM [employer] procedure are i n the results section. INR STAT 07/24/2012 7:48 Results for this PM [employer] procedure are i n the results section. PARTIAL THROMBOPLASTIN STAT 07/24/2012 7:48 Re sults for this TIME PM [employer] procedure are i n the results section. LIPASE STAT 07/24/2012 7:48 Results for this PM [employer] procedure are i n the results section. COMPREHENSIVE METABOLIC STAT 07/24/2012 7:48 R esults for this PANEL PM [employer] procedure are i n the results section. ABO/RH TYPE AND SCREEN STAT 07/24/2012 7:48 Re sults for this PM [employer] procedure are i n the results section. OCCULT BLOOD STOOL STAT 07/24/2012 7:37 Result s for this PM [employer] procedure are i n the results section. HIM ECG SCAN Routine 07/24/2012 documented in this encounter Results (ABNORMAL) Hemoglobin (07/26/2012 6:30 AM [employer]RECTION [employer]ER HEAD) athologist Signature Hemoglobin 7.4 (L) 11.7 - 15.7 [place] g/dL [facility] Specimen Anatomical Collection Method Collection Time Receive d Time (Source) Location / / Volume Laterality Blood specimen 07/26/2012 6:30 AM 013 6:39 (specimen) [employer]RE[employer]ER HEAD AM [employer]ER HEAD Ha Romero DO LAB - BLOOD ORDERABLES Performing Organization Address City/[facility]/ZIP Code Phon e Number [place] [address] [address] [place], [place] [address] [facility] Partial thromboplastin time (07/26/2012 6:30 AM [employer]RE[employer]ER HEAD) athologist Signature PTT 32 22 - 37 sec [facility] Specimen Anatomical Collection Method Collection Time Receive d Time (Source) Location / / Volume Laterality Blood specimen 07/26/2012 6:30 AM 013 6:39 (specimen) [employer]ER HEAD AM [employer] Ha Romero DO LAB - BLOOD ORDERABLES Performing Organization Address City/[facility] Phon e Number [facility] [address], [place] [address] [facility] (ABNORMAL) INR (07/26/2012 6:30 AM [employer]) P athologist Signature INR 1.18 (H) 0.86 - 1.14 [facility] Specimen Anatomical Collection Method Collection Time Receive d Time (Source) Location / / Volume Laterality Blood specimen 07/26/2012 6:30 AM 013 6:39 (specimen) [employer]ER HEAD AM [employer]ER HEAD Ha Romero DO LAB - BLOOD ORDERABLES Performing Organization Address City/[facility]/ZIP Code Phon e Number [facility] [address], [place] [address] [facility] Tissue transglutaminase antibody IgA (07/25/2012 11:55 AM [employer]RECTION [employer]ER HEAD) [facility] Method Time Signature Tissue <1.0 0 - 3.9 [facility] Transglutaminase Interpretation: ??Negative U/mL [facility] Antibody IgA [place] [facility] Specimen Anatomical Collection Method Collection Time Receive d Time (Source) Location / / Volume Laterality Blood specimen 07/25/2012 11:55 3 (specimen) AM [employer] 12:06 PM [employer]ER HEAD Ha Romero DO LAB - BLOOD ORDERABLES Performing Organization Address City/State/ZIP Code Phon e Number [address] [address] [facility] Surgical pathology exam (07/25/2012 9:33 AM [employer]ER HEAD) Component Value Ref Test Analysis Performed At [facility] Range Method Time Signature Copath Report Patient Name: ESTEFANIA MCKEON MR#: [id number] Specimen #: [id number] Collected: 07/25/2012 Received: 07/25/2012 Reported: 07/26/2012 17:19 [...] Warthin-Starry stains. MGP/sg 07-26-12 TESTING LAB LOCATION: [address] ??[id number] COLLECTION SITE: Client: [facility] Location: [id number] (R) Specimen Anatomical Collection Method Collection Time Receive d Time (Source) Location / / Volume Laterality 07/25/2012 9:33 AM 3 [employer] [employer] 12:28 PM [facility]ER HEAD Ha Kemal Romero DO [facility] Performing Organization Address City/State/ZIP Code Phon e Number DOM UPPER GI ENDOSCOPY (07/25/2012 9:30 AM [employer]ER HEAD) Component Value Ref Test Analysis Performed At [facility] Range Method Time Signature Upper GI [facility] RADIO LOGY Endoscopy RESULTS Patient Name: Estefania childress ? Procedure Date: 07/25/2012 9:30:16 AM ? Date of : 1985 ? Admit Type: Inpatient ? Age: 27 ? Gender: Female ? Attending MD: Ha Jr DO ? Procedure: ?Upper GI endoscopy Indications: [...] / / Volume Laterality 07/25/2012 9:30 AM [employer] HEAD Ha Romero DO PROCEDURES Performing Organization Address City/State/ZIP Code Phon e Number RADIOLOGY RESULTS Partial thromboplastin time (07/25/2012 6:35 AM [employer]) P athologist Signature PTT 34 22 - 37 sec [facility] Specimen Anatomical Collection Method Collection Time Receive d Time (Source) Location / / Volume Laterality Blood specimen 07/25/2012 6:35 AM 013 7:02 (specimen) [employer]ER HEAD AM [employer]ER HEAD Clay Palmer MD LAB - BLOOD ORDERABLES Performing Organization Address City/State/ZIP Code Phon e Number [facility] [address], [place] [address] [facility] (ABNORMAL) INR (07/25/2012 6:35 AM [employer]ER HEAD) P athologist Signature INR 1.18 (H) 0.86 - 1.14 [facility] Specimen Anatomical Collection Method Collection Time Receive d Time (Source) Location / / Volume Laterality Blood specimen 07/25/2012 6:35 AM 013 7:02 (specimen) [employer]ER HEAD AM [employer]ER HEAD Clay Palmer MD LAB - BLOOD ORDERABLES Performing Organization Address [facility] [address], [place] [address] [facility] (ABNORMAL) CBC with platelets (07/25/2012 6:35 AM [employer]ER HEAD) Analysis Performed At Patho logist Time Signature WBC 5.8 4.0 - 11.0 [place] 10e9/L [facility] RBC Count 4.01 3.8 - 5.2 [place] 10e12/L [facility] Hemoglobin 7.0 (L) 11.7 - [place] 15.7 g/dL [facility] Hematocrit 25.9 (L) 35.0 - [place] 47.0 % [facility] MCV 65 (L) 78 - 100 [place] fl [facility] MCH 17.5 (L) 26.5 - [place] 33.0 pg [facility] MCHC 27.0 (L) 31.5 - [place] 36.5 g/dL [facility] RDW 19.5 (H) 10.0 - [place] 15.0 % [facility] Platelet Count 320 150 - 450 [place] 10e9/L [facility] Specimen Anatomical Collection Method Collection Time Receive d Time (Source) Location / / Volume Laterality Blood specimen 07/25/2012 6:35 AM 013 7:02 (specimen) [employer]RECTION [employer]ICER HEAD AM [employer]ER HEAD Clay Palmer MD LAB - BLOOD ORDERABLES Performing Organization Address City/[facility] [[email or web address]] Code [facility] [place] [address], [place] [address] [facility] XR Chest Port 1 View (07/24/2012 9:12 PM [employer]RE[employer]ER HEAD) Anatomical Region Laterality Modality Chest Other Specimen (Source) Anatomical Collection Method Collection Time Re ceived Time Location / / Volume Laterality 07/24/2012 9:12 PM [employer] [employer] Impressions 07/25/2012 8:41 AM [employer] [employer] IMPRESSION: ??Negative. JANIS AARON MD Narrative 07/25/2012 8:41 AM [employer]ER HEAD CHEST 1 VIEW PORT ??07/24/2012 9:13 PM HISTORY: ??Shortness of breath. COMPARISON: ??None. Procedure Note Janis Aaron MD - 3 CHEST 1 VIEW PORT 07/24/2012 9:13 PM HISTORY: Shortness of breath. COMPARISON: None. IMPRESSION IMPRESSION: Negative. JANIS AARON MD Jr Martínez MD IMG DIAGNOSTIC IMAGING ORDER KEISHA ABO/Rh type and screen (07/24/2012 7:48 PM [employer]RECTION [employer]ICER HEAD) [facility] gist Method Time Signature ABO Canceled, [place] Test credited [facility] RH(D) Canceled, [place] Test credited [facility] Antibody Canceled, [place] Screen Test credited [facility] Specimen 07/27/2012 [place] Expires [facility] Blood Bank Duplicate [place] Comment request [facility] Specimen Anatomical Collection Method Collection Time Receive d Time (Source) Location / / Volume Laterality Blood specimen 07/24/2012 7:48 PM 013 7:58 (specimen) [employer]ER HEAD PM [employer]RE[employer]ER HEAD Jr Martínez MD LAB - BLOOD BANK TEST ORDER Performing Organization Address City/[facility]/ZIP Code Phon e Number [place] [address] [address] [place] [address] [facility] Lipase (07/24/2012 7:48 PM CORRECTION OFFICER HEAD) athologist Signature Lipase 64 20 - [address] [facility] U/L [facility] Specimen Anatomical Collection Method Collection Time Receive d Time (Source) Location / / Volume Laterality Blood specimen 07/24/2012 7:48 PM 013 7:58 (specimen) [employer]RE[employer]ER HEAD PM [employer]RECTION [employer]ER HEAD Jr Martínez MD LAB - BLOOD ORDERABLES Performing Organization Address City/[facility]/ZIP [facility] Phon e Number [facility] [address], [place] [address] [facility] Comprehensive metabolic panel (07/24/2012 7:48 PM CORRECTION OFFICER HEAD) P athologist Signature Sodium 136 133 - 144 [place] mmol/L [facility] Potassium 3.5 3.4 - 5.3 [place] mmol/L [facility] Chloride 106 94 - 109 [place] mmol/L [facility] Carbon Dioxide 23 20 - 32 [place] mmol/L [facility] Anion Gap 8 6 - 17 [place] mmol/L [facility] Glucose 91 60 - 99 [place] mg/dL [facility] Urea Nitrogen 7 5 - 24 [place] mg/dL [facility] Creatinine 0.67 0.52 - [facility] 1.04 mg/dL [facility] GFR Estimate >90 >60 [place] mL/min/[address] [place] [address] LAB GFR Estimate If >90 >60 [place] Black mL/min/[address] [place] [address] LAB Calcium 8.9 8.5 - 10.4 [place] mg/dL [facility] Bilirubin Total 0.7 0.2 - 1.3 [place] mg/dL [facility] Albumin 3.9 3.9 - 5.1 [place] g/dL [facility] Protein Total 6.8 6.8 - 8.8 [place] g/dL [facility] Alkaline 52 40 - 150 [place] Phosphatase U/L [facility] ALT 25 0 - 50 U/L [facility] AST 19 0 - 45 U/L [facility] Specimen Anatomical Collection Method Collection Time Receive d Time (Source) Location / / Volume Laterality Blood specimen 07/24/2012 7:48 PM 013 7:58 (specimen) [employer]RECTION [employer]ICER HEAD PM [employer]RECTION OFFICER HEAD Jr Martínez MD LAB - BLOOD ORDERABLES Performing Organization Address City/State/ZIP Code Phon e Number [facility] [address], [place] [address] [facility] (ABNORMAL) Partial thromboplastin time (07/24/2012 7:48 PM CORRECTION OFFICER HEAD) P athologist Signature PTT 39 (H) 22 - 37 sec [facility] Specimen Anatomical Collection Method Collection Time Receive d Time (Source) Location / / Volume Laterality Blood specimen 07/24/2012 7:48 PM 013 7:58 (specimen) CORRECTION OFFICER HEAD PM CORRECTION OFFICER HEAD Jr Martínez MD LAB - BLOOD ORDERABLES Performing Organization Address City/State/ZIP Code Phon e Evens Webb [facility] [address], [place] [address] [facility] LAB (ABNORMAL) INR (07/24/2012 7:48 PM CORRECTION OFFICER HEAD) P athologist Signature INR 1.17 (H) 0.86 - 1.14 [facility] LAB Specimen Anatomical Collection Method Collection Time Receive d Time (Source) Location / / Volume Laterality Blood specimen 07/24/2012 7:48 PM 013 7:58 (specimen) CORRECTION OFFICER HEAD PM CORRECTION OFFICER HEAD Jr Martínez MD LAB - BLOOD ORDERABLES Performing Organization Address City/[facility] Phon mac Webb [facility] [address], [place] [address] [facility] LAB (ABNORMAL) CBC with platelets differential (07/24/2012 7:48 PM CORRECTION OFFICER HEAD) Patholo gist Method Time Signature WBC 12.9 (H) 4.0 - [place] 11.0 [facility] 10e9/L [facility] RBC Count 4.72 3.8 - 5.2 [place] 10e12/L [facility] Hemoglobin 8.5 (L) 11.7 - [place] 15.7 g/dL [facility] Hematocrit 29.9 (L) 35.0 - [place] 47.0 % [facility] MCV 63 (L) 78 - 100 [place] fl [facility] MCH 18.0 (L) 26.5 - [place] 33.0 pg [facility] MCHC 28.4 (L) 31.5 - [place] 36.5 g/dL [facility] RDW 19.1 (H) 10.0 - [place] 15.0 % [facility] Platelet Count 331 150 - 450 [place] 10e9/L [facility] LAB Diff Method Automated [facility] LAB % Neutrophils 85.9 (H) 40 - 75 % [facility] LAB % Lymphocytes 8.0 (L) 20 - 48 % [facility] LAB % Monocytes 5.5 0 - 12 % [facility] LAB % Eosinophils 0.2 0 - 6 % [facility] LAB % Basophils 0.2 0 - 2 % [facility] LAB % Immature 0.2 0 - 0.4 % [place] Granulocytes [facility] Absolute 11.1 (H) 1.6 - 8.3 [place] Neutrophil 10e9/L [facility] Absolute 1.0 0.8 - 5.3 [place] Lymphocytes 10e9/L [facility] Absolute 0.7 0.0 - 1.3 [place] Monocytes 10e9/L [facility] Absolute 0.0 0.0 - 0.7 [place] Eosinophils 10e9/L [facility] Absolute 0.0 0.0 - 0.2 [place] Basophils 10e9/L [facility] LAB Abs Immature 0.0 0 - 0.03 [place] Granulocytes [address] [place] [address] LAB Specimen Anatomical Collection Method Collection Time Receive d Time (Source) Location / / Volume Laterality Blood specimen 07/24/2012 7:48 PM 013 7:58 (specimen) CORRECTION OFFICER HEAD PM CORRECTION OFFICER HEAD Jr Martínez MD LAB - BLOOD ORDERABLES Performing Organization Address City/State/ZIP Code Phon e Number M [facility] [address], [place] [address] [facility] LAB (ABNORMAL) Stool: occult blood (07/24/2012 7:37 PM CORRECTION OFFICER HEAD) [facility] Method Time Signature Occult Blood Positive (A) NEG [facility] LAB Specimen Anatomical Collection Method Collection Time Receive d Time (Source) Location / / Volume Laterality Stool specimen STOOL SPECIMEN / 07/24/2012 7:37 PM 08/2012 7:59 (specimen) Unknown CORRECTION OFFICER HEAD PM CORRECTION OFFICER HEAD Jr Martínez MD LAB - STOOLS ORDERABLES Performing Organization Address City/State/ZIP Code Phon e Number M [facility] [address], [place] [address] [facility] ECG - HIM ECG Scan (07/24/2012) Narrative This result has an attachment that is no t available. 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) Dizziness - light-headed Dizziness and giddiness Iron deficiency anemia Iron deficiency anemia, unspecified Iron deficiency anemia Iron deficiency anemia, unspecified documented in this encounter Administered Medications Inactive Administered Medications - up to 3 most recent administrations Medication Order MAR Action Action Date Dose Rate Site 0.9 % sodium chloride IV New Bag 07/26/2012 1:40 PM CORRECTION OFFICER HEAD 1,000 mLs 100 mL/hr solution at 100 mL/hr, Intravenous, CONTINUOUS, Starting on Tue07/25/12 at 0015, Until Tue07/26/12 at 1805 New Bag 07/26/2012 4:33 AM CORRECTION OFFICER HEAD 1,000 mLs 100 mL/hr Rate/Dose Verify 07/25/2012 11:51 PM CORRECTION OFFICER HEAD 1,000 mLs 100 mL/hr acetaminophen (TYLENOL) tablet 650 mg Given 07/25/2012 6:50 AM CORRECTION OFFICER HEAD 650 mg 650 mg, Oral, EVERY 4 HOURS PRN, mild pain, Starting on Tue07/25/12 at 0013, Alternate ibuprofen (if ordered) with acetaminophen. Not to exceed 4 grams/day. Maximum acetaminophen dose from all sources = 75 mg/kg/day not to exceed 4 grams/day. Given 07/25/2012 12:50 AM CORRECTION OFFICER HEAD 650 mg diphenhydrAMINE (BENADRYL) injection 25 mg Given 07/24/2012 8:24 PM CORRECTION OFFICER HEAD 25 mg, Intravenous, ONCE, On Tue07/24/12 at 1945, For 1 dose methylprednisoLONE sodium succinate Given 07/24/2012 8:25 PM CORRECTION OFFICER HEAD 125 mg (Solu-MEDROL) injection 125 mg 125 mg, Intravenous, ONCE, On Tue07/24/12 at 1945, For 1 dose, Doses >125mg need to be in at least 50 mL IVPB ondansetron (ZOFRAN) injection 4 mg Given 07/24/2012 8:22 PM CORRECTION OFFICER HEAD 4 mg 4 mg, Intravenous, EVERY 30 MIN PRN, nausea, vomiting, Administer over 2-5 Minutes, Starting on Tue07/24/12 at 1939, For 3 doses, May repeat in 30 minutes as needed, up to 3 doses. pantoprazole (PROTONIX) 40mg IV push inj ection Given 07/24/2012 8:26 PM CORRECTION OFFICER HEAD 40 mg 40 mg, Intravenous, ONCE, Administer over 2 Minutes, On Tue07/24/12 at 1945, For 1 dose, Reconstitute vial with 10mLs Saline and administer IV Push pantoprazole (PROTONIX) EC tablet 40 mg Given 07/26/2012 8:39 AM CORRECTION OFFICER HEAD 40 mg 40 mg, Oral, EVERY MORNING BEFORE BREAKFAST, First dose on Tue07/25/12 at 0900, DO NOT CRUSH. Given 07/25/2012 8:26 AM CORRECTION OFFICER HEAD 40 mg sodium chloride (PF) 0.9% PF flush 3 mL Given 07/25/2012 4:15 PM CORRECTION OFFICER HEAD 3 mLs 3 mL, Intravenous, EVERY 8 HOURS, First dose on Tue07/25/12 at 0015, And Q1H PRN, to lock peripheral IV dormant line. Given 07/25/2012 12:36 AM CORRECTION OFFICER HEAD 3 mLs sodium chloride 0.9 % BOLUS 1,000 mL New Bag 07/24/2012 8:31 PM CORRECTION OFFICER HEAD 1,000 mLs Intravenous, 1,000 mL, ONCE, On Tue07/24/12 at 1945, For 1 dose, Wide Open sodium chloride 0.9 % BOLUS New Bag 07/24/2012 10:15 PM CORRECTION OFFICER HEAD 1, 000 mLs 1000 mL/hr 1,000 mL Intravenous, 1,000 mL, ONCE, at 1,000 mL/hr, Administer over 1 Hours, On Tue07/24/12 at 2215, For 1 dose documented in this encounter Active and Recently Administered Medications Times are shown in CORRECTION OFFICER HEAD. Scheduled Medication Order 07/24/2012 07/25/2012 07/26/2012 diphenhydrAMINE (BENADRYL) injection 25 mg (COMPLETED) 2023 (Given - Provider: Louisa Vickers RN) 25 mg, Intravenous, ONCE, Tue07/24/12 at 1945, [...] 40 mg, Intravenous, ONCE, for 2 Minutes, 3/4/13 at 1945, For 1 dose, Reconstitute vial with 10mLs Saline and administer IV Push pantoprazole (PROTONIX) EC tablet 40 mg 0826 (Given - Provider: May Feliz LPN) 0839 (Given - Provider: PANFILO Montano) 40 mg, Oral, EVERY MORNING BEFORE BREAKF AST, First dose on Tue07/25/12 at 0900, DO NOT CRUSH. sodium chloride (PF) 0.9% PF flush 3 mL (CANCELED) 0036 (Given - Provider: Lenora Coello LPN)0827 (Not Given - Provider: May Feliz LPN - Reason: IV Infusing)1615 (Given - Provider: Janie Guillaume RN - Comment: given)235 (Not Given - Provider: Linda Jackson RN [...] (COMPLETED) 2214 (New Bag - Provider: Kathleen Henley, MICHAEL) Intravenous, 1,000 mL, ONCE, at 1,000 mL /hr, for 1 Hours, Tue07/24/12 at 2215, For 1 dose Continuous Medication Order 07/24/2012 07/25/2012 07/26/2012 0.9 % sodium chloride IV solution (CANCELED) 0039 (New Bag - Provider: Lenora Coello LPN)1005 (New Bag - Provider: Lory Rojas RN - Comment: hung next IV 1005)223 (Restarted - Provider: Heather Hurt LPN)2351 (Rate/Dose [...] 4 HOURS PRN, mild pa in, Starting 07/25/12 at 0013, Alternate ibuprofen (if ordered) with acetaminophen. Not to exceed 4 grams/day. Maximum acetaminophen dose from all sources = 75 mg/kg/day not to exceed 4 grams/day. benzocaine (HURRICAINE/TOPEX) 20 % spray (CANCELED) 0925 (Given - Provider: Ha Romero DO) PRN, moderate pain, Starting 07/25/12 at 0925, Intra-procedure fentaNYL (SUBLIMAZE) injection (CANCELED) 0923 (Given - Provider: Vicky Noriega RN) PRN, Starting 07/25/12 at 0923, moderate to severe pain, Intra -procedure midazolam (VERSED) injection (CANCELED) 0923 (Given - Provider: Vicky Noriega RN)0925 (Given - Provider: Vicky Noriega RN)0927 (Given - Provider: Vicky Noriega RN)0929 (Given [...] doses. documented in this encounter Care Teams Butcher Fish Relationship Specialty Start Date End Date Janis Cardona MD PCP - General 07/08/01 10/12/19 [address] [facility] [address] [place], [place] [id number] documented as of this encounter
--- OUTSIDE RECORDS SUMMARY | 2022-04-25 22:24 | XMS_ITS | Encounter Summary ---
:1985 Author Organization [facility] Address [address] [place] [address] Care Team Providers Name Role Phone Janis Cuellar MD Primary Care Provider Reason for Visit Reason Comments Infusion venofer Encounter Details Date Type Department Care Team Description 01/24/2013 Infusion Therapy [facility] Janis Cuellar MD Iron (Fe) deficiency [facility] [address] anemia (Prim loida Dx) [facility] [address] [place] [phone] Social History Tobacco Use Types Packs/Day Years Used Date Smoking Tobacco: Never Smokeless Tobacco: Never Alcohol Use Standard Drinks/Week Comments Yes 0 (1 standard drink = 0.6 oz pure alcoho l) casual Sex Assigned at Date Recorded Not on file documented as of this encounter Last Filed Vital Signs Vital Sign Reading Time Taken Comments Blood Pressure 123/71 01/24/2013 11:00 AM CDT Pulse - - Temperature 36.7 ??C (98 ??F) 01/24/2013 11:00 AM CDT Respiratory Rate 16 01/24/2013 11:00 AM CDT Oxygen Saturation - - Inhaled Oxygen Concentration - - Weight - - Height - - Body Mass Index - - documented in this encounter Progress Notes Britney Keenan RN - 01/24/2013 1:08 PM CDT Patient tolerated 100mg dose of venofer today without incident. Patient had a previous reaction to venofer when she received 500mg. Premedicated today with 650mg tylenol. Had patient stay for 30 minutes post infusion today to watch for a reaction and receive IVF. Instructed patient on the common signsof a post iron overload reaction and with what side effects she should call her clinic with. Patientstable upon discharge, self. documented in this encounter Plan of Treatment Not on filedocumented as of this encounter Visit Diagnoses Diagnosis Iron (Fe) deficiency anemia - Primary Iron deficiency anemia, unspecified documented in this encounter Administered Medications Inactive Administered Medications - up to 3 most recent administrations Medication Order MAR Action Action Date Dose Rate Site acetaminophen (TYLENOL) tablet Given 01/24/2013 10:58 AM CDT 650 mg 650 mg 650 mg, Oral, ONCE, On Tue01/24/13 at 1045, For 1 dose, Administer 15-30 mins pre-infusion. Maximum acetaminophen dose from all sources = 75 mg/kg/day not to exceed 4 grams/day. iron sucrose (VENOFER) 100 mg in New Bag 01/24/2013 10:58 AM C DT 100 mg 420 mL/hr NaCl 0.9% 100 mL IVPB 100 mg, Intravenous, Administer over 15 Minutes, at 420 mL/hr, ONCE, On Tue01/24/13 at 1045, For 1 dose, (Greater than 200 mg of Iron Sucrose to be given as IV infusion over 1.5 - 4 hours depending upon the dose. 300 mg over 1.5 hrs, 400 mg over 2.5 hours, 500 mg over 3.5 - 4 hours) sodium chloride 0.9 % BOLUS 250 mL New Bag 01/24/2013 10:40 AM CDT 250 mLs Intravenous, 250 mL, ONCE, On Tue01/24/13 at 1045, For 1 dose, Concominate fluids documented in this encounter Care Teams Metal Control Worker Relationship Specialty Start Date End Date Janis Cuellar MD PCP - General 07/08/01 10/12/19 [address] [place] [address] documented as of this encounter
--- OUTSIDE RECORDS SUMMARY | 2022-04-25 22:25 | XMS_ITS | Encounter Summary ---
:1985 Author Organization [facility] Address [address] [place] [address] Care Team Providers Name Role Phone Janis Cuellar MD Primary Care Provider Reason for Visit Reason Comments Infusion Venofor Encounter Details Date Type Department Care Team Description 07/24/2012 Infusion Therapy [facility] Janis Cuellar MD Iron (Fe) deficiency Visit [facility] [address] anemia (Prim loida Dx) [facility] [address] [place] [phone] Social History Tobacco Use Types Packs/Day Years Used Date Smoking Tobacco: Never Smokeless Tobacco: Never Alcohol Use Standard Drinks/Week Comments Yes 0 (1 standard drink = 0.6 oz pure alcoho l) casual Sex Assigned at Date Recorded Not on file documented as of this encounter Last Filed Vital Signs Vital Sign Reading Time Taken Comments Blood Pressure 94/61 07/24/2012 4:20 PM SCREW MACHINE TOOL SETTER Pulse 76 07/24/2012 4:20 PM SCREW MACHINE TOOL SETTER Temperature 37 ??C (98.6 ??F) 07/24/2012 4:20 PM SCREW MACHINE TOOL SETTER Respiratory Rate 16 07/24/2012 4:20 PM SCREW MACHINE TOOL SETTER Oxygen Saturation - - Inhaled Oxygen Concentration - - Weight - - Height - - Body Mass Index - - documented in this encounter Progress Notes Lizbeth Go RN - 07/24/2012 2:34 PM CST Patient tolerated procedure without incident. IV ran at 75ml/hr increased to 85 ml/hr 2 1/2 hrs intoinfusion. Patient verbalized understanding of side effects to look for and who to call,discharged inthe care of self after 25 minutes of observation. Patient aware of next appointment. W MACHINE TOOL SETTER documented in this encounter Plan of Treatment Not on filedocumented as of this encounter Visit Diagnoses Diagnosis Iron (Fe) deficiency anemia - Primary Iron deficiency anemia, unspecified documented in this encounter Administered Medications Inactive Administered Medications - up to 3 most recent administrations Medication Order MAR Action Action Date Dose Rate Site acetaminophen (TYLENOL) tablet Given 07/24/2012 12:10 PM SCREW MACHINE TOOL SETTER 650 mg 650 mg 650 mg, Oral, ONCE, On Tue07/24/12 at 1200, For 1 dose, Administer 15-30 mins pre-infusion. Maximum acetaminophen dose from all sources = 75 mg/kg/day not to exceed 4 grams/day. diphenhydrAMINE (BENADRYL) capsule 25 mg Given 07/24/2012 12:10 PM SCREW MACHINE TOOL SETTER 25 mg 25 mg, Oral, ONCE, On Tue07/24/12 at 1200, For 1 dose, Administer 15-30 mins pre-infusion. Give IV or PO. Do not give both routes. iron sucrose (VENOFER) 500 mg in New Bag 07/24/2012 12:[address] 500 mg 68.8 mL/hr NaCl 0.9% 250 mL IVPB 500 mg, Intravenous, Administer over 4 Hours, at 68.8 mL/hr, ONCE, On Tue07/24/12 at 1200, For 1 dose, (Greater than 200 mg of Iron Sucrose to be given as IV infusion over 1.5 - 4 hours depending upon the dose. 300 mg over 1.5 hrs, 400 mg over 2.5 hours, 500 mg over 3.5 - 4 hours) sodium chloride 0.9 % BOLUS 250 mL New Bag 07/24/2012 12:34 PM SCREW MACHINE TOOL SETTER 250 mLs Intravenous, 250 mL, ONCE, On Tue07/24/12 at 1200, For 1 dose, Concominate fluids documented in this encounter Care Teams Bucket Chucker Relationship Specialty Start Date End Date Janis Cuellar MD PCP - General 07/08/01 10/12/19 Jamie G[facility]BINO [facility] [address] [place] [address] documented as of this encounter
--- OUTSIDE RECORDS SUMMARY | 2022-04-25 22:25 | XMS_ITS | Encounter Summary ---
:1985 Author Organization [facility] Address [address] [place] [id number] Care Team Providers Name Role Phone Janis Cuellar MD Primary Care Provider Reason for Visit Reason Onset Date Comments Patient Inquiry 08/18/2011 hemoglobin Encounter Details Date Type Department Care Team Description 08/18/2011 Telephone [facility] Janis Cuellar MD Patient Inquiry Clinic [place] [address] (hemoglobin) [address] [place] [address] [place], [place] [phone] (Wo rk) [phone] Social History Tobacco Use Types Packs/Day Years Used Date Smoking Tobacco: Never Smokeless Tobacco: Never Alcohol Use Standard Drinks/Week Comments Yes 0 (1 standard drink = 0.6 oz pure alcoho l) casual Sex Assigned at Date Recorded Not on file documented as of this encounter Miscellaneous Notes Telephone Encounter - Wanda Geiger - 08/19/2011 10:18 AM CDT Call to pt and advised. She agrees to call Hematology. Telephone Encounter - Janis Cuellar MD - 08/19/2011 7:52 AM CDT She should make appt with Hematology at [facility] again for anemia. Can make appt with me about mood if needed or consider counseling; can call insurance for referral. Telephone Encounter - Dex Tripp MD - 08/18/2011 5:40 PM CDT Pt has iron deficiency anemia, will benefit from iron supplements- ferrous gluconate 324 mg po bid ane rpt CBC in 3 mths. But if pt wants to rpt hgb earlier then can rpt in 2-3 wks. But advise to take iron supplements. Telephone Encounter - Heidi Herr RN - 08/18/2011 4:33 PM CDT Contacted patient from left message today. Pt was in ER last night and had a miscarriage. Hemoglobinlevel at that time 8.6. Pt has hx of iron deficiency anemia. In past pt has had transfusions in pastfor hemoglobin levels less than 7. Pt states iron supplementation has not worked for her and that her body lacks a protein for iron supplements to bind to. Pt is concerned as to when she should have her Hgb rechecked? Pt feeling poor on an emotional level after this event. Pt is feeling fatigued even before this event last night. Pt just wants to stay on top of this issue before she runs into trouble. Will route to PCP for recommendations. Pt currently is at home and resting well. Please advise. Evelia Herr RN documented in this encounter Plan of Treatment Not on filedocumented as of this encounter Visit Diagnoses Not on filedocumented in this encounter Care Teams Structured Cabling Technician Relationship Specialty Start Date End Date Janis Cuellar MD PCP - General 07/08/01 10/12/19 [address] [place] [address] documented as of this encounter
--- OUTSIDE RECORDS SUMMARY | 2022-04-25 22:25 | XMS_ITS | Encounter Summary ---
:1985 Author Organization [facility] Address [address] [place] [address] Care Team Providers Name Role Phone Janis Cuellar MD Primary Care Provider Encounter Details Date Type Department Care Team Description 03/02/2010 Historic Notes INTERFACED REPORT Interface, Transcript on, Social History Tobacco Use Types Packs/Day Years Used Date Smoking Tobacco: Never Alcohol Use Standard Drinks/Week Comments Yes 0 (1 standard drink = 0.6 oz pure alcoho l) casual Sex Assigned at Date Recorded Not on file documented as of this encounter Progress Notes Interface, Newspaper Inserter - 08/07/2010 6:15 PM CDT Nutrition Assessment - Reason for assessment Admission screen - Nutrition Risk Screen Eating less than 50% of their meals greater than 5 days prior to admission Anthropometrics - Height: 68 - Admission weight: 61.4 kg - UBW (Usual body 56.4 kg (05/30) weight): - BMI: 20.6 - IBW ([place] body 63.6 kg weight): - % IBW ([place] body 97% weight): - Dosing weight: 61.4 kg - Comments:: No weight loss noted. Nutrition Prescription - Nutrition Regular; fair po intake Prescription: Nutrition History - Nutrition history: Usually on a regular diet with good intake until she becomes symptomatic with anemia. Labs/Medications - Labs: Reviewed - Medications: Reviewed Physical Findings - Comments: No BM Apolinar= 3 Estimated Needs - Needs based on: 61.4 kg (actual body wt) - Energy needs: 2791-8590 kcal (30-35 kcal/kg)- wt gain - Protein needs: 75-85 gms protein (1.2-1.4 gm/kg)- increased for repletion - Fluid needs: 2159-0214 mL fluid (30-35 mL/kg)- basic fluid needs Nutrition Diagnosis - Nutrition diagnosis: Pt is @ risk for inadequate oral food/beverage intake. Interventions - Interventions: Provided diet education on increasing iron and diet and info on preventing kidney stones. Name and number provided. Enc smaller, frequent meals. Supplements prn. - Goals: PO to be greater than 75% of meals. - Follow-up: Monitor oral intake. Monitor stooling. - Recommendations: Rec check pre-albumin to better assess overall nutrition status. Signatures Judit Nuno (RD, LD)[Signed 13:30] Authored: Nutrition Assessment, Anthropometrics, Nutrition Prescription, Nutrition History, Labs/Medications, Physical Findings, Estimated Needs, Nutrition Diagnosis, Interventions documented in this encounter Plan of Treatment Not on filedocumented as of this encounter Visit Diagnoses Not on filedocumented in this encounter Care Teams Valve Inspector Relationship Specialty Start Date End Date Janis Cuellar MD PCP - General 07/08/01 10/12/19 Jamie GAMBINO [facility] [address] [place], [place] [id number] documented as of this encounter
--- OUTSIDE RECORDS SUMMARY | 2022-04-25 22:25 | XMS_ITS | Encounter Summary ---
:1985 Author Organization [place] Address [address] [place] [id number] Care Team Providers Name Role Phone Janis Cuellar MD Primary Care Provider Reason for Visit Reason Comments Hand Injury Possible infection to right forearm from IV given at [facility] 3 days ago while being treated for kidney sto caroline and anemia. Encounter Details Date Type Department Care Team Description 03/06/2010 Office Visit [facility] Praneeth Gonzalez, PHLEBI TIS ([facility] [place] PA-C Dx) [address] [id number] [phone] [place] [phone] (Wo rk) Social History Tobacco Use Types Packs/Day Years Used Date Smoking Tobacco: Never Alcohol Use Standard Drinks/Week Comments Yes 0 (1 standard drink = 0.6 oz pure alcoho l) casual Sex Assigned at Date Recorded Not on file documented as of this encounter Last Filed Vital Signs Vital Sign Reading Time Taken Comments Blood Pressure 110/60 03/06/2010 2:27 PM CDT Pulse - - Temperature 35.8 ??C (96.5 ??F) 03/06/2010 2:27 PM CDT Respiratory Rate - - Oxygen Saturation - - Inhaled Oxygen Concentration - - Weight 61.7 kg (136 lb) 03/06/2010 2:27 PM CDT Height - - Body Mass Index 20.38 04/09/2008 2:15 PM ENVIRONMENTAL HEALTH TECHNOLOGIST documented in this encounter Progress Notes Praneeth Gonzalez - 03/06/2010 2:36 PM CDT SUBJECTIVE: Chief Complaint Patient presents with ??? Hand Injury Possible infection to right forearm from IV given at [facility] 3 days ago while being treated for kidney stones and anemia. Estefania Mckeon is a 24 year old female presents with a chief complaint of right forearm tenderness. The injury occurred 3 day(s) ago. The injury happened while getting an IV for treatment of kidney stones and infection. How: as aboveimmediate pain. The patient complained of moderate pain and has not had decreased ROM. Pain exacerbated by nothing. Relieved by nothing. She treated it initially with ice, heat and percocet. This is the first time this type of injury has occurred to this patient. Past Medical History Diagnosis Date ??? Calculus of kidney Current outpatient prescriptions Medication Sig ??? Ciprofloxacin (CIPRO PO) Take by mouth. ??? Oxycodone-Acetaminophen (PERCOCET PO) Take by mouth. ??? etonogestrel-ethinyl estradiol (NUVARING) 0.12-0.015 MG/24HR vaginal ring Place 1 each vaginallyevery 30 days. ??? LOESTRIN FE .10/19 TABS 30-75-1.5 MCG-MG-MG OR ONE DAILY ??? MACROBID 100 MG OR CAPS ONE CAPSULE TWICE DAILY ??? MACROBID 100 MG OR CAPS ONE CAPSULE TWICE DAILY ??? FERROUS SULFATE 325 MG OR CAPS 1 CAP BID History Substance Use Topics ??? Tobacco Use: Never ??? Alcohol Use: Yes casual ROS: CONSTITUTIONAL:NEGATIVE for fever, chills, change in weight EXAM: BP 110/60 Temp(Src) 96.5 ??F (35.8 ??C) (Oral) Wt 136 lb (61.689 kg) Gen: healthy, no distress, cooperative and healthy,alert,no distress Extremity: forearm has point tenderness along vein. There is not compromise to the distal circulation. Pulses are +2 and DAIRY HUSBANDMAN is brisk GENERAL APPEARANCE: healthy, alert and no distress EXTREMITIES: peripheral pulses normal X-RAY was not done. ASSESSMENT: 451.9E PHLEBITIS (primary encounter diagnosis) PLAN: 1) Rest, Ice, Compress, Elevate and anti-inflammatory. Follow if fever or increased pain. documented in this encounter Nursing Notes 03/06/2010 2:30 PM CDT >> DAVID MCPHERSON Ricky Mar 06, 2010 2:28 PM Patient presents with: Hand Injury - Possible infection to right forearm from IV given at [facility] 3 days ago while being treated for kidney stones and anemia. Initial BP 110/60 Temp(Src) 96.5 ??F (35.8 ??C) (Oral) Wt 136 lb (61.689 kg) Estimated Body massindex is 20.38 kg/(m^2) as calculated from the following: Height as of 08: 5' 8.5(1.74 m). Weight as of this encounter: 136 lb(61.689 kg).. BP completed using cuff size: elise Mcpherson CMA documented in this encounter Plan of Treatment Not on filedocumented as of this encounter Visit Diagnoses Diagnosis Phlebitis - Primary Phlebitis and thrombophlebitis of unspec ified site documented in this encounter Care Teams Freight Associate Relationship Specialty Start Date End Date Janis Cuellar MD PCP - General 07/08/01 10/12/19 [address] [facility] [address] [place] [address] documented as of this encounter
--- OUTSIDE RECORDS SUMMARY | 2022-04-25 22:25 | XMS_ITS | Encounter Summary ---
:1985 Author Organization [facility] Address [address] [place] [address]. [place] [address] Care Team Providers Name Role Phone Rodolfo Cuellar MD Primary Care Provider Reason for Visit Reason Comments Vaginal Bleeding preg possibly 7 weeks. bleed ing noted last night, progressivly increasing. Encounter Details Date Type Department Care Team Description 08/17/2011 Emergency [facility] Lenore Jeronimo Spontane ous ; [facility] Emergency Dep florida Guo MD Anemia [address] [facility] [place] [address] 9434 [facility] [address] [id number] (Wo rk) Social History Tobacco Use Types Packs/Day Years Used Date Smoking Tobacco: Never Alcohol Use Standard Drinks/Week Comments Yes 0 (1 standard drink = 0.6 oz pure alcoho l) casual Sex Assigned at Date Recorded Not on file documented as of this encounter Last Filed Vital Signs Vital Sign Reading Time Taken Comments Blood Pressure 110/70 08/17/2011 6:49 PM CDT Pulse 105 08/17/2011 2:53 PM CDT Temperature 37.1 ??C (98.7 ??F) 08/17/2011 2:53 PM CDT Respiratory Rate 16 08/17/2011 6:49 PM CDT Oxygen Saturation 100% 08/17/2011 6:49 PM CDT Inhaled Oxygen Concentration - - Weight - - Height - - Body Mass Index - - documented in this encounter Discharge Instructions AttachmentsThe following attachments cannot be sent through Care Everywhere. , COMPLETE (SPONTANEOUS) (FINNISH)documented in this encounter Medications at Time of Discharge Medication Sig Dispensed Refills Start Date End Date fluticasone (FLONASE) 50 2 sprays by Both 1 Package 11 02/0106/08/2012 MCG/ACT nasal Nostrils route daily. sprayIndications: Seasonal allergic rhinitis levonorgestrel-ethinyl Take 1 tablet by 1 Package 0 011 06/08/2012 estradiol mouth daily. (TREASURE VERDE,OMAYRA) 0.1-20 MG-MCG per tablet documented as of this encounter ED Notes Lizbet Saldana RN - 08/17/2011 3:40 PM CDT Labs drawn with IV insertion and sent Lenore Jeronimo MD - 08/17/2011 3:28 PM CDT History Chief Complaint: Vaginal bleeding HPI Estefania Mckeon is a G1, 26 year old female with a history of anemia who presents with vaginal bleeding. The patient states she took 2 tests a few weeks ago that were both positive and her last menstrual cycle was June 25, putting her around 7-8 weeks . She explains last nightshe noticed some vaginal bleeding when wiping after going to the bathroom. The patient states today the bleeding has been more but not soaking through her clothes or requiring pads with uncomfortable mild left sided abdominal cramping. The patient notes she was not trying to get and this is her first . She notes she has a history of anemia for unclear reasons but has not had any dizziness, fainting, shortness of breath or palpitations. Her mother explains her first was a miscarriage. The patient denies fever, chills, cough, shortness of , chest pain, leg swelling, nausea, vomiting, diarrhea, rash, back pain, vaginal discharge, dysuria, difficulty urinating, headache. No personal or family history of clotting disorders. Allergies: Amoxicillin-hives Medications: vitamins The patient's last menstrual cycle was June 25 No history of sexually transmitted infections Past Medical History: Kidney stones Iron deficiency anemia Past Surgical History: Appendectomy Removal of stone through cystoscope Family history: Diabetes, hypertension, lipids-Father Lipids, hypertension-Mother Hypertension, Crohns-Maternal grandmother Hypertension, CAD-Maternal grandfather Kidney stones-Paternal grandfather Muscular-Uncle Neurological, diabetes-Paternal aunt Diabetes-Paternal uncle Asthma-Paternal aunt Marital Status: Single Social History: The patient's mother is here. The patient has never smoked and casually drinks alcohol, but not since becoming . Review of Systems Constitutional: Negative for fever and chills. Respiratory: Negative for cough and shortness of breath. Cardiovascular: Negative for chest pain and leg swelling. Gastrointestinal: Positive for abdominal pain. Negative for nausea, vomiting and diarrhea. Genitourinary: Positive for vaginal bleeding. Negative for dysuria, vaginal discharge and difficultyurinating. Musculoskeletal: Negative for back pain. Skin: Negative for rash. Neurological: Negative for dizziness, light-headedness and headaches. All other systems reviewed and are negative. Physical Exam First Vitals: BP: 114/71 mmHg Pulse: 105 Temp: 98.7 ??F (37.1 ??C) Resp: 20 SpO2: 100% RA Physical Exam Constitutional: She is oriented to person, place, and time. HENT: Mouth/Throat: Oropharynx is clear and moist. Eyes: Conjunctivae are normal. Pupils are equal, round, and reactive to light. Cardiovascular: Normal rate, regular rhythm, normal heart sounds and intact distal pulses. Exam reveals no gallop and no friction rub. No murmur heard. Pulmonary/Chest: Effort normal and breath sounds normal. No respiratory distress. She has no wheezes. She has no rales. She exhibits no tenderness. Abdominal: Soft. She exhibits no distension and no mass. Suprapubic and left lower abdominal/pelvic tenderness. Genitourinary: Pelvic exam: Dark red blood in vaginal vault. Cervical os open with tissue protruding. No rapid hemorrhaging. Mild tenderness in left adnexal. Mild fullness. No uterine or right adnexal pain. Musculoskeletal: Normal range of motion. She exhibits no edema and no tenderness. Neurological: She is alert and oriented to person, place, and time. She exhibits normal muscle tone. No focal abnormalities appreciated. Answers all questions and follows all commands appropriately. Skin: Skin is warm and dry. No rash noted. She is not diaphoretic. No erythema. Psychiatric: Her mood appears anxious. Emergency Department Course Imaging: US OB 1st trimester: No intrauterine identified, as above. Short-term followup recommended, per radiology. Laboratory: CBC: HGB 8.6 low, Baso 4.0 high, o/w WNL(WBC 7.5, Plts 326) UA: LE trace, Mucus present, Urine moderate, Ketone 10, o/w negative Quantitative hC Rh type: O positive Interventions: Sodium chloride 0.9% 1,000 mL IV (includes bolus + continuous drip) Emergency Department Course: I examined the patient and discussed a plan of care. IV inserted and blood drawn. The patient was placed on continuous cardiac monitoring and pulse oximetry. I performed a pelvic exam, see physical exam for notes. The patient was sent for the following imaging: US OB 1st trimester. See results above. I spoke to the hotel supplies salesperson OBGYN doctor, Dr. Cano, regarding treatment and followup for the patient. The patient reported feeling improved after the above interventions. Rechecked the patient, findings and plan explained to the patient and her mother. Patient dischargedhome with her mother, status improved, with instructions regarding supportive care, medications, andreasons to return as well as the importance of close follow-up was reviewed. Impression & Plan Medical Decision Making: This is a 26 year old female approximately 8 weeks who presents to the emergency department with vaginal bleeding. She did not have significant pain. She had evidence on pelvic exam of likely tissue from the cervical os and some small amounts of bleeding. She was hemodynamically normal here in the emergency department. She was anemic. I suspect this is likely chronic in nature for her as she is asymptomatic and has normal vital signs but given the continued bleed, I think she needs close followup with the hemoglobin level that she has. My suspicion is for spontaneous miscarriage. The patient did not require any pain medications or resuscitation here in the emergency department. She was comfortable with the plan for discharge and followup with Dr. Cano tomorrow. Dr. Cano was consulted and he noted he would like to see the patient tomorrow. She is told to return to the emergency department should she have uncontrolled bleeding, pain or dizziness associate with the bleeding. She homar balized agreement and understanding of this plan. She should use Tylenol for pain. She is told in the unlikely possibility of an ectopic , although this seems very unlikely given the clinical scenario, she should return to the emergency department for focal tenderness in the right lower quadrant. Diagnosis: 1. Spontaneous . 2. Anemia, chronic. I, Frances Lee, am serving as a Scribe on 08/17/2011 at 3:28 PM to personally document the services performed by Dr. Jeronimo based upon my observations and the provider's statements to me. Renetta Castillo 08/17/2011 [facility] EMERGENCY DEPARTMENT Lenore Jeronimo MD 08/18/11 1728 documented in this encounter Plan of Treatment Not on filedocumented as of this encounter Procedures Procedure Name Priority Date/Time Associated Comments Diagnosis US OB <14 WEEKS WITH STAT 08/17/2011 5:05 PM R esults for this TRANSVAGINAL SINGLE CDT procedur e are in the results section. ROUTINE UA WITH Routine 08/17/2011 4:40 PM Result s for this MICROSCOPIC CDT procedure are i n the results section. SURGICAL PATHOLOGY Routine 08/17/2011 4:05 PM Res ults for this EXAM CDT procedure are i n the results section. CBC WITH PLATELETS & STAT 08/17/2011 3:40 PM R esults for this DIFFERENTIAL CDT procedure are i n the results section. RH TYPE STAT 08/17/2011 3:40 PM Results f or this CDT procedure are i n the results section. HCG QUANTITATIVE STAT 08/17/2011 3:40 PM Resul ts for this CDT procedure are i n the results section. documented in this encounter Results US OB 1st trimester w transvag (08/17/2011 5:05 PM CDT) Anatomical Region Laterality Modality Abdomen/Pelvis Other Specimen (Source) Anatomical Collection Method Collection Time Re ceived Time Location / / Volume Laterality 08/17/2011 5:05 PM CDT Impressions 08/18/2011 2:01 PM CDT ULTRASOUND OBSTETRIC FIRST TRIMESTER W/T RANSVAGINAL August 17, 2011 5:05:00 PM HISTORY: , vaginal bleeding. TECHNIQUE: Transabdominal and transvagin al imaging was performed. Transvaginal exam performed to better ev aluate: Uterus, ovaries and adnexa. FINDINGS: There appears to be a septate or arcuate uterine variant. No intrauterine identified. The e ndometrial thickness is 7 mm with some heterogeneity with which could relate to blood in the endometrial cavity. Right ovary unremark able. A 1.4 cm complex left ovarian lesion, likely a corpus luteum. No free fluid. The findings could represent early IUP or spontaneous , but ectopic cannot be excluded and short-t erm followup is recommended. IMPRESSION: No intrauterine id entified, as above. Short-term followup recommended. Lenore Jeronimo MD IMG US ORDERABLES (ABNORMAL) Routine UA with microscopic (08/17/2011 4:40 PM CDT) [facility] Method Time Signature Color Urine Light Yellow [facility] Appearance Urine Clear [facility] Glucose Urine Negative NEG mg/dL [facility] Bilirubin Urine Negative NEG [facility] Ketones Urine 10 (A) NEG mg/dL [facility] Specific Hope 1.006 1.003 - STAR Urine 1.035 [facility] Blood Urine Moderate (A) NEG [facility] pH Urine 6.0 5.0 - 7.0 STAR pH [facility] Protein Albumin Negative NEG mg/dL [facility] Urobilinogen Normal 0.0 - 2.0 STAR mg/dL mg/dL [facility] Nitrite Urine Negative NEG [facility] Leukocyte Trace (A) NEG STAR Esterase Urine [facility] Source Midstream [facility] WBC Urine 2 0 - 2 STAR /HPF [facility] RBC Urine 1 0 - 2 STAR /HPF [facility] Squamous 1 0 - 1 STAR Epithelial /HPF /HPF [facility] Mucous Urine Present (A) NEG /LPF [facility] Specimen Anatomical Collection Method Collection Time Receive d Time (Source) Location / / Volume Laterality Urine specimen URINE SPECIMEN 08/17/2011 4:40 PM 08/16 5:05 (specimen) OBTAINED BY CLEAN CDT PM CDT CATCH PROCEDURE / Unknown Lenore Jeronimo MD LAB - URINE ORDERABLES Performing Organization Address City/State/ZIP Code Phon e Number M [facility] [address], [place] [address] [facility] Surgical Path Exam (08/17/2011 4:05 PM CDT) Component Value Ref Test Analysis Performed At [facility] gist Range Method Time Signature Copath Report Patient Name: ESTEFANIA MCKEON MR#: [id number] Specimen #: [id number] Collected: 08/17/2011 Received: 08/18/2011 Reported: 08/19/2011 12:34 Ordering Phy(s): LENORE JERONIMO Additional Phy(s): RODOLFO CUELLAR SPECIMEN(S): Products of conception FINAL DIAGNOSIS: Products of conception - Decidualized endometrial tissue wit hout evidence of products of conception (negative for chorionic v illous tissue or implantation site). COMMENT: The submitted tissue is negative for diagnostic evidence of an intrauterine ; clinical and radiographic correlatio n is needed to determine appropriate clinical follow-up. Electronically signed out by: Gladys Gallardo M.D. CLINICAL HISTORY: LMP 06/25/2011. ??8 weeks gestation age. ??Cytogenetic studies have not been requested. GROSS: The specimen, labeled vaginal tissue, consists of two irre gular flat, 10 x 3 x 0.4 cm and 4 x 1.5 x 0.3 cm portions of rodriguez-pink he morrhagic tissue. ??The gross appearance is that of decidual tissue. ? ?No villous tissue or embryonic/ parts are grossly identified. ??ES , three cassettes. ??SA/sg MICROSCOPIC: Microscopic examination is performed. SA/sg 08-19-11 TESTING LAB LOCATION: [address] ??[id number] COLLECTION SITE: Client: [facility] [address] Location: RHERA (R) Specimen Anatomical Collection Method Collection Time Receive d Time (Source) Location / / Volume Laterality 08/17/2011 4:05 PM 2 7:44 CDT AM CDT Lenore Jeronimo MD LAB - [facility] Performing Organization Address City/State/ZIP Code Phon e Number [place] HCG QUANTitative (08/17/2011 3:40 PM CDT) P athologist Signature HCG Quantitative 952 IU/L [facility] Comment: Non- ?0 - 5 , weeks from LMP: ??1 - 10 weeks ? 64 - 151,000 IU/L 11 - 15 weeks 11,800 - 152,000 IU/L 16 - 22 weeks ??9,380 - 61,400 IU/L 23 - 40 weeks ??1,740 - 98,600 IU/L Specimen Anatomical Collection Method Collection Time Receive d Time (Source) Location / / Volume Laterality Blood specimen 08/17/2011 3:40 PM 012 3:51 (specimen) CDT PM CDT Lenore Jeronimo MD LAB - BLOOD ORDERABLES Performing Organization Address [facility] Phon e Number [facility] [address], [place] [address] [facility] Rh type (08/17/2011 3:40 PM CDT) Analysis Performed At Patho logist Time Signature ABO O [facility] RH(D) Pos [facility] Specimen 08/20/2011 [facility] Specimen Anatomical Collection Method Collection Time Receive d Time (Source) Location / / Volume Laterality Blood specimen 08/17/2011 3:40 PM 012 3:52 (specimen) CDT PM CDT Lenore Jeronimo MD LAB - BLOOD BANK TEST ORDER Performing Organization Address [facility] Phon e Number [facility] [address], [place] [address] [facility] (ABNORMAL) CBC with platelets differential (08/17/2011 3:40 PM CDT) P athologist Signature WBC 7.5 4.0 - 11.0 STAR 10e9/L [facility] RBC Count 4.37 3.8 - 5.2 STAR 10e12/L [facility] Hemoglobin 8.6 (L) 11.7 - 15.7 STAR g/dL [facility] Hematocrit 29.7 (L) 35.0 - 47.0 [facility] MCV 68 (L) 78 - 100 fl [facility] Comment: Slide to be reviewed by Patholo gist MCH 19.7 (L) 26.5 - 33.0 pg [facility] MCHC 29.0 (L) 31.5 - 36.5 g/dL [facility] RDW 16.0 (H) 10.0 - 15.0 % [facility] Platelet Count 326 150 - 450 10e9/L [facility] Comment: Giant Platelets present Diff Method Manual Method [facility] Slide reviewed by Pathologist HOSPITAL LAB Hypochromic microcytic anemia with normal RBC count. Iron st udies c/w iron deficiency state. Recommend hemoglobin electrophoresis following iron repletion to investigate possible underlying thalassemia trait. SA/cg . % Neutrophils 58.0 40 - 75 % [facility]FFER[facility] % Lymphocytes 32.0 20 - 48 % [facility] DIFFER[facility] % Monocytes 6.0 0 - 12 % [facility] DIFFERENTIAL % Eosinophils 0.0 0 - 6 % [facility] DIFFERENTIAL % Basophils 4.0 (H) 0 - 2 % [facility] Absolute Neutrophil 4.4 1.6 - 8.3 [facility] 10e9/L DIFFERENTIAL Absolute Lymphocytes 2.4 0.8 - 5.3 [facility] M 10e9/L DIFFERENTIAL Absolute Monocytes 0.5 0.0 - 1.3 [facility] 10e9/L DIFFERENTIAL Absolute Eosinophils 0.0 0.0 - 0.7 [facility] [place] M 10e9/L DIFFERENTIAL Absolute Basophils 0.3 (H) 0.0 - 0.2 [facility] 10e9/L DIFFERENTIAL Anisocytosis Slight [facility] Poikilocytosis Slight [facility] Ovalocytes Slight [facility] Microcytes Present [facility] Hypochromasia Present [facility] Platelet Estimate Normal [facility] Specimen Anatomical Collection Method Collection Time Receive d Time (Source) Location / / Volume Laterality Blood specimen 08/17/2011 3:40 PM 012 3:51 (specimen) CDT PM CDT Lenore Jeronimo MD LAB - BLOOD ORDERABLES Performing Organization Address City/State/ZIP Code Phon e Number [facility] DIFFERENTIAL [facility] documented in this encounter Visit Diagnoses Diagnosis Spontaneous Unspecified spontaneous without mention of complication Anemia Anemia, unspecified documented in this encounter Active and Recently Administered Medications Care Teams Semiconductor Development Technician Relationship Specialty Start Date End Date Rodolfo Cuellar MD PCP - General 07/08/01 10/12/19 [address] [address] documented as of this encounter
--- OUTSIDE RECORDS SUMMARY | 2022-04-25 22:25 | XMS_ITS | Encounter Summary ---
:1985 Author Organization [place] Address [address] [place] [address]. [place] [address] Care Team Providers Name Role Phone Janis Cuellar MD Primary Care Provider Reason for Referral Referral not Required - Closed Specialty Diagnoses / Procedures Referred By Contact Refer red To Contact Diagnoses Iron deficiency anemia, unspecified Janis Cuellar MD [facility] [address] [place] [address] [address] [facility] [address] [place] [phone] Phone: [phone] Fax: Referral ID Status Reason Start Date Expiration Date Visits Requ ested Visits Authorized [id number] Closed 02/01/2011 07/31/2011 1 1 Reason for Visit Reason Comments Abnormal Bleeding Problem 3 weeks ago patient had genesis od, it would start and stop and this went on for about 1 1/2 weeks, patient now very tired. Encounter Details Date Type Department Care Team Description 02/01/2011 Office Visit [facility] Janis Cuellar MD IRON DEFIC ANEMIA NOS (Primary Dx); Clinic [place] [address] Seasonal allergic rhinitis [address] [place], [place] [address] [address] [place], [place] [phone] (Wo rk) [address] [phone] Social History Tobacco Use Types Packs/Day Years Used Date Smoking Tobacco: Never Alcohol Use Standard Drinks/Week Comments Yes 0 (1 standard drink = 0.6 oz pure alcoho l) casual Sex Assigned at Date Recorded Not on file documented as of this encounter Last Filed Vital Signs Vital Sign Reading Time Taken Comments Blood Pressure 105/70 02/01/2011 1:22 PM CDT Pulse 72 02/01/2011 1:22 PM CDT Temperature 36.6 ??C (97.9 ??F) 02/01/2011 1:22 PM CDT Respiratory Rate - - Oxygen Saturation - - Inhaled Oxygen Concentration - - Weight 59.8 kg (131 lb 14.4 oz) 02/01/2011 1:22 PM CDT Height 175.3 cm (5' 9) 02/01/2011 1:22 PM CDT Body Mass Index 19.48 02/01/2011 1:22 PM CDT documented in this encounter Progress Notes Janis Cuellar MD - 02/01/2011 1:49 PM CDT Subjective: Estefania Mckeon is a 25 year old female who presents for follow-up. She has not been here due to insurance issues for 3 years. She feels she is likely anemic again. She has felt quite tired. She had some transfusions at [facility] in September. hgb then was 7.4. She has been on current OC for 4 months. She had a normal period for 3 days. A week later, she had bleeding in am for 1.5 weeks. The period started in the last week of the active medication. She was changed from the Nuvaring to this form after abnormal pap, colpocopy. This was through Dr. Guallpa at [facility]. She has repeat in a month. Other concerns: Seasonal allergies, congestion, eye symptoms on and off, itchy nose throat and eyes. She takes claritin daily but not helping enough. She has some sedation from it. Patient Active Problem List Diagnoses Code ??? IRON DEFIC ANEMIA NOS 280.9 ??? CARDIOVASCULAR SCREENING; LDL GOAL LESS THAN 160 V81.2LR Current outpatient prescriptions Medication Sig ??? levonorgestrel-ethinyl estradiol (AVIANE,ALESSE,LESSINA) 0.1-20 MG-MCG per tablet Take 1 tablet by mouth daily. Objective: Patient alert in NAD BP 105/70 Pulse 72 Temp(Src) 97.9 ??F (36.6 ??C) (Oral) Ht 5' 9 (1.753 m) Wt 131 lb 14.4 oz(59.829 kg) BMI 19.48 kg/m2 Not examined Assessment/Plan: 1. Fatigue: probably due to anemia again. Check labs, plan outpatient transfusions if less than 8. Should return to Hematology. Recommend she discuss her contraceptive with cardiac surgeon. Get records sent here for future reference. 2. Allergic rhinitis: recommend flovent along with antihistamine. Can try charlie or take claritin at night for less sedation. Later hgb returned at 11.2. Advised by nurse to work on good sleep. If progressive fatigue, can check other labs. documented in this encounter Nursing Notes 02/01/2011 1:00 PM CDT >> ALESSIA EUCEDA Mon Feb 01, 2011 1:23 PM Patient presents with: Abnormal Bleeding Problem - 3 weeks ago patient had period, it would start and stop and this went on for about 1 1/2 weeks, patient now very tired. Initial BP 105/70 Pulse 72 Temp(Src) 97.9 ??F (36.6 ??C) (Oral) Ht 5' 9 (1.753 m) Wt 131 lb14.4 oz (59.829 kg) BMI 19.48 kg/m2 Estimated Body mass index is 19.48 kg/(m^2) as calculated fromthe following: Height as of this encounter: 5' 9(1.753 m). Weight as of this encounter: 131 lb 14.4 oz(59.829 kg).. BP completed using cuff size regular Alessia Euceda/RENAN documented in this encounter Plan of Treatment Scheduled Referrals Name Type Priority Associated Diagnoses Order S chedule ONC/HEME ADULT REFERRAL Referral Routine IRON DEFIC ANEMIA NOS Ordered: 02/01/2011 documented as of this encounter Visit Diagnoses Diagnosis IRON DEFIC ANEMIA NOS - Primary Iron deficiency anemia, unspecified Seasonal allergic rhinitis Allergic rhinitis, cause unspecified documented in this encounter Care Teams Wrapper Hand Relationship Specialty Start Date End Date Janis Cuellar MD PCP - General 07/08/01 10/12/19 [address] GAMBINO [address] [address] documented as of this encounter
--- OUTSIDE RECORDS SUMMARY | 2022-04-25 22:25 | XMS_ITS | Encounter Summary ---
:1985 Author Organization [place] Address [address] [place] [address]. [place] [address] Care Team Providers Name Role Phone Janis Cardona MD Primary Care Provider Reason for Visit Reason Comments RECHECK Pt was in ED for miscarriage , pt c/o about cramps and painful left ovary, had u/s 08/16- sharp pain from left ovary. There was s ome pain on left side before and before . Pre Visit Planning-Patient Declined Not needed Fatigue Check hemoglobin Encounter Details Date Type Department Care Team Description 08/18/2011 Office Visit [facility] Monster SAB ( spontaneous ) (Primary Dx); [facility] MD Arslan Contraception; [facility] Uterine anomaly; [address] [place] [address] Abnormal Pap smear of cervix [place] [facility] [address] [place] [address] [place], [place] [phone] (Wo rk) [address] [phone] Social History Tobacco Use Types Packs/Day Years Used Date Smoking Tobacco: Never Smokeless Tobacco: Never Alcohol Use Standard Drinks/Week Comments Yes 0 (1 standard drink = 0.6 oz pure alcoho l) casual Sex Assigned at Date Recorded Not on file documented as of this encounter Last Filed Vital Signs Vital Sign Reading Time Taken Comments Blood Pressure 94/64 08/18/2011 2:30 PM CDT Pulse 80 08/18/2011 2:30 PM CDT Temperature - - Respiratory Rate - - Oxygen Saturation - - Inhaled Oxygen Concentration - - Weight 60.1 kg (132 lb 9.6 oz) 08/18/2011 2:30 PM CDT Height - - Body Mass Index 19.58 02/01/2011 1:22 PM CDT documented in this encounter Progress Notes Monster Combs MD - 08/30/2011 8:03 AM CDT Subjective:26 year old side female Obstetric History T0 TAB0 SAB0 E0 M0 L0 here for follow-up from ER for SAB. Also multiple other issues. States passed tissue in ER, further additional passed at home, patient brought today to clinic for evaluation. States currently lifht flow, occasional cramping, mild. States also history of left sided pelvic pain x 1 yr, worse with intercourse. States is also cyclic,occurs with menses; sharp, stabbing pain, intermittant. No previous evaluation in past. States has been on OCPs in the past, unsure if noted any change of pain with use. Patient states had abnormal pap about 6-8 mths ago, was instructed for follow-up pap, has not done. Past Medical History Diagnosis Date ??? Calculus of kidney Past Surgical History Procedure Date ??? Appendectomy ??? C nonspecific procedure removal of stone through cysto History Social History ??? Marital Status: Single Spouse Name: N/A Number of Children: 0 ??? Years of Education: N/A Occupational History ??? Student Social History Main Topics ??? Smoking status: Never Smoker ??? Smokeless tobacco: Never Used ??? Alcohol Use: Yes casual ??? Drug Use: No ??? Sexually Active: Yes -- Male partner(s) Other Topics Concern ??? Not on file Social History Narrative ??? No narrative on file Family History Problem Relation Age of Onset [...] Diabetes Paternal Uncle ??? Asthma Paternal Aunt ROS: CONSTITUTIONAL:NEGATIVE for fever, chills, change in weight GI: NEGATIVE for nausea, abdominal pain, heartburn, or change in bowel habits : negative for, dysuria and vaginal discharge Objective:Physical exam: GENERAL APPEARANCE: healthy, alert and no distress ABDOMEN: soft, nontender, no HSM or masses and bowel sounds normal PELVIC: Vulva: normal external female genitalia, Urethra meatus: normal, non-tender Vagina: normal vaginal mucosa, rugated, no lesions, small blood in vault. Cervix: nulliparous cervix, no lesions. No active bleeding Uterus: Normal contour, size, position; non-tender Adnexa: No adnexal masses palpated, non-tender Perineum: normal, no lesions, intact Anus: normal, no lesions, hemorrhoids Assessment/Plan: 634.90S SAB (spontaneous ) (primary encounter diagnosis) Comment: likely complete AB; will forward submitted tissue today to pathology; no further evaluationneeded if pathology from today or yesterday confirms IUP; follow quants if unclear. Plan: Surgical pathology exam V25.9N Contraception Comment: Desires contraception; use, side effects discussed Plan: norelgestromin-ethinyl estradiol (ORTHO EVRA) 150-20 MCG/24HR patch 752.39CP Uterine anomaly Comment: ultrasound report reviewed, discussed option for further evaluation by hysterosonogram. Plan: US Hysterosonography 795.00S Abnormal Pap smear of cervix Comment: follow-up as needed. Patient asked to transfer records of past paps if needed. Plan: PAP imaged thin layer, diagnostic documented in this encounter Nursing Notes 08/18/2011 2:15 PM CDT >> DENNISE DENNY TueAug 18, 2011 2:35 PM Patient presents with: RECHECK - Pt was in ED for miscarriage, pt c/o about cramps and painful left ovary, had u/s 08/16- sharp pain from left ovary. There was some pain on left side before and before . Pre Visit Planning-Patient Declined - Not needed Fatigue - Check hemoglobin Initial BP 94/64 Pulse 80 Wt 132 lb 9.6 oz (60.147 kg) LMP 06/25/2011 Estimated Body mass index is 19.58 kg/(m^2) as calculated from the following: Height as of 02/01/11: 5' 9(1.753 m). Weight as of this encounter: 132 lb 9.6 oz(60.147 kg).. BP completed using cuff size: regular [place] Dennise Denny MA documented in this encounter Plan of Treatment Not on filedocumented as of this encounter Procedures Procedure Name Priority Date/Time Associated Comments Diagnosis PAP IMAGED THIN Routine 08/18/2011 3:54 PM Abnormal Pap smear Results for this LAYER, DIAGNOSTIC CDT of cervix procedure are in the results section. SURGICAL PATHOLOGY Routine 08/18/2011 3:53 PM SAB (spontaneous Results for this EXAM CDT ) procedure are i n the results section. HPV SCR W REF TO Routine 08/18/2011 12:00 AM Resu lts for this EMILY ANAL PAP OR CDT procedure a re in TISSUE the results section. documented in this encounter Results (ABNORMAL) PAP imaged thin layer, diagnostic (08/18/2011 3:54 PM CDT) Component Value Ref Test Analysis Performed At [facility] TalkApolis Method Time Signature PAP ASC-US (A) DOM Fernandes Report DOM Patient Name: ESTEFANIA MCKEON MR#: [id number] Specimen #: [id number] Collected: 08/18/2011 Received: 08/19/2011 Reported: 08/24/2011 08:15 Ordering Phy(s): MONSTER COMBS SPECIMEN/STAIN PROCESS: Pap Imaged thin layer prep diagnostic (SurePath, FocalPoint with guided screening) ? Pap-Cyto x 1, Reflex HPV x 1 SOURCE: Cervical, endocervical ---- Pap Imaged thin layer prep diagnostic (SurePath, FocalPoint with guided screening) SPECIMEN ADEQUACY: Satisfactory for evaluation. -Transformation zone component present. CYTOLOGIC INTERPRETATION: Epithelial Cell Abnormality: ??Squamous Cell: ??Atypical squ amous cells-of undetermined significance (ASC-US). Rare atypical cells present. RECOMMENDATIONS: Comment: Molecular testing for HPV has been ordered for this specimen. Electronically signed out by: Gladys Gallardo M.D. Processed and screened at [facility] CLINICAL HISTORY: LMP: 06/25/11 Previous abnormal pap: Abnormal pap smear of cervix, Papanicolaou Test Limitations: ??Cervical cytology is a scre ening test with limited sensitivity; regular screening is critical for cancer prevention; Pap tests are primarily effective for the diagnosis/prevention of squamous cell carcinoma, not adenoca rcinomas or other cancers. TESTING LAB LOCATION: [facility] [address] [place], [place] ??[phone] COLLECTION SITE: Client: ??[facility] Location: RIOB (R) Specimen (Source) Anatomical Collection Method Collection Time Re ceived Time Location / / Volume Laterality Cytologic 08/18/2011 3:54 08/19/2011 material PM CDT 10:56 AM CDT (specimen) Monster Combs MD LAB - OPTIME CLINICAL SPECIM EN Performing Organization Address City/State/ZIP Code Graciela FERNANDES Surgical pathology exam (08/18/2011 3:53 PM CDT) Component Value Ref Test Analysis Performed At [facility] Range Method Time Signature Copath Report Patient Name: ESTEFANIA MCKEON MR#: [id number] Specimen #: [id number] Collected: 08/18/2011 Received: 08/19/2011 Reported: 08/20/2011 12:53 Ordering Phy(s): MONSTER COMBS Additional Phy(s): JANIS CARDONA SPECIMEN(S): Products of conception FINAL DIAGNOSIS: Uterine contents - ? 1. ??Products of conception (amniotic sac and immatur e chorionic villi present). ? 2. ??No evidence of abnormal trophoblastic proliferat ion or embryonic/ tissue. Electronically signed out by: Cale Power M.D. CLINICAL HISTORY: Spontaneous . GROSS: The specimen, labeled products of conception, consists of a formalin-fixed fragment of rodriguez to pink to hemorrhagic soft t issue measuring ??5 cm x 1.5 cm x 0.3 cm. ??The specimen has for t he most part the appearance of decidua. ??It is serially sectioned and higgins bmitted in its entirety in one cassette. ??MGP/sg MICROSCOPIC: Microscopic examination was performed. MGP/sg 08-20-11 TESTING LAB LOCATION: [facility] [address] [place], [place] ??[address] COLLECTION SITE: Client: [facility] Location: RIOB (R) Specimen Anatomical Collection Method Collection Time Receive d Time (Source) Location / / Volume Laterality 08/18/2011 3:53 PM 2 CDT 10:36 AM CDT Monster Combs MD LAB - [facility] Performing Organization Address City/State/ZIP Code Phon e Number COPATH HPV screen with reflex to genotype (08/18/2011 12:00 AM CDT) Component Value Ref Test Analysis Performed At [facility] Range Method Time Signature Copath Report Patient Name: ESTEFANIA MCKEON MR#: [id number] Specimen #: [id number] Collected: 08/18/2011 00:00 Received: 08/25/2011 11:08 Reported: 08/27/2011 14:06 Ordering Phy(s): MONSTER COMBS TEST(S) REQUESTED: Human Papillomavirus Screen Analysis SPECIMEN DESCRIPTION: Cervical Cells METHODOLOGY: ??Total cellular DNA was extracted from the abo ve specimen and up to 1 ug subjected to DNA amplification with a series of oligonucleotide primers directed to the L1 region of the hum an papillomavirus genome. ??The resulting PCR fragments were th en by capillary electrophoresis using a Qiagen Doorbot with Bio Calculator software. ??The PCR products from samples positive [...] amplification. RESULTS (L1 region): ? NEGATIVE FOR HPV DNA Final Diagnosis: This patient's sample is negative for HPV DNA. Diagnosis Comment: These results do not rule out the presence of an occult HPV infection which is not detected due to either sampling error, or sampl e procurement. This test was developed and its performance determined by [facility] [place] ??[facility]. It has not been cleared or approved by the U.S. Food and Izaiah g Administration. ??The FDA has determined that such clearance or approval is not necessary. ??Pursuant to the requirements of CLIA' 88 , this laboratory has established and verified the test' s accuracy and precision. ??This test is used for clinical purposes. Electronically Signed Out By: SHABNAM Electrical Engineer TESTING LAB LOCATION: [facility] [address] [facility] [address] [place] [phone] COLLECTION SITE: Client: ??[facility] Location: ??RIOB (R) Specimen (Source) Anatomical Collection Method Collection Time Re ceived Time Location / / Volume Laterality 08/18/2011 08/25/2011 11:0 8 AM CDT Monster Combs MD LAB - GENOMICS Performing Organization Address City/State/ZIP Code Phon e Number COPATH documented in this encounter Visit Diagnoses Diagnosis SAB (spontaneous ) - Primary Unspecified spontaneous without mention of complication Contraception Unspecified contraceptive management Uterine anomaly Other anomalies of uterus Abnormal Pap smear of cervix Abnormal glandular Papanicolaou smear of cervix documented in this encounter Care Teams Industrial Controller Relationship Specialty Start Date End Date Janis Cardona MD PCP - General 07/08/01 10/12/19 [address] [facility] [address] [place] [address] documented as of this encounter
--- OUTSIDE RECORDS SUMMARY | 2022-04-25 22:25 | XMS_ITS | Encounter Summary ---
:1985 Author Organization [place] Address [address] [place] [address] Care Team Providers Name Role Phone Janis Cuellar MD Primary Care Provider Reason for Visit Reason Comments Ultrasound Encounter Details Date Type Department Care Team Description 09/28/2011 Orders Only [facility] erine anomaly (Primary Clinic [place] Dx) [address] [place] [address] Social History Tobacco Use [...] Name Priority Date/Time Associated Diagnosis Comme nts US HYSTEROSONOGRAPHY Routine 09/28/2011 Uterine anomaly Resu lts for this procedure are i n the results section . documented in this encounter Results US Hysterosonography (09/28/2011) Anatomical Region Laterality Modality Abdomen/Pelvis Other Impressions 09/28/2011 Complete pelvic ultrasound using realtime transabdominal and transvaginal scanning Bicornuate uterus; sonographic suggestio n of PCOS Asif HORTON Narrative 09/28/2011 [facility] [address] [place] [address] ULTRASOUND - PELVIC BLOOD BANK CREDIT CLERK Referring MD: Eri Harvey MD Primary Clinic: [facility] Ultrasound disk#: [id number] CLINICAL INFORMATION Indications for ultrasound: Uterine anomaly, Hx - SAB 08/17/2011 LMP: Na ?Hormones: none Measurements: Uterus: 5.9 x 2.2 x 4.7 cm. ?? Position is anteverted. ??Contour is bic ornuate. Endo cav: 1.2 mm, 1.7 mm ? Smooth/re gular/wnl Cervix: Wnl Right ovary: 3.7 x 2.1 x 3.5 cm. Wnl and Mult follicles noted Left ovary: 4.5 x 1.6 x 3.4 cm. Wnl and Mult follicles noted Cul de sac: no free fluid Eri Harvey MD IMG US ORDERABLES documented in this encounter Visit Diagnoses Diagnosis Uterine anomaly - Primary Other anomalies of uterus documented in this encounter Care Teams Building Contractor Relationship Specialty Start Date End Date Janis Cuellar MD PCP - General 07/08/01 10/12/19 [address] [facility] [address] [place], [place] [address] documented as of this encounter
--- OUTSIDE RECORDS SUMMARY | 2022-04-25 22:25 | XMS_ITS | Encounter Summary ---
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 - Would you like more No information about Advanced Health Care Directives? Health and Illness - Reason for visit as severe left side pain Stated by Patient - Primary Care Dr. Cuellar Physician - Previous General fair Health - Blood none Avoidance/Restrictio_ ns - Previous Blood yes Transfusion - Previous Transfusion no Reaction - Transfusion History 4 transfusions in the past Comment Medical Surgical History PYSLONEPHRITIS,ANEMIA: ; Active Admitting; PYSLONEPHRITIS,ANEMIA Medication Information - Medications Brought no to Hospital Role Relationships/Living Environment - Limitations on none Visitors/Phone Calls/TV - Lives With friend - Living Arrangements apartment Substance Use - Tobacco Use None. - Caffeine Use Yes - Caffeine Type Pop/soda; two diet cokes a day - Alcohol Use current alcohol use - Alcohol Type beer - Alcohol Frequency 2-4 times/mo - Alcohol Amount 1-2 drinks - Problems Related to no Alcohol Use - History of street No drug/inhalant/ medication abuse Review of Systems - Neurological headaches; migraines Conditions/Symptoms - Pain: 5 Comfort/Acceptable Pain Level (0-10) - Chronic Pain no - Problem Sleeping none - Head none Conditions/Symptoms - Eye none Conditions/Symptoms - Ear none Conditions/Symptoms - Nose none Conditions/Symptoms - Mouth/Throat/Neck none Conditions/Symptoms - Cardiac none Conditions/Symptoms - Peripheral/Neurovasc_ none ular Conditions/Symptoms - Respiratory none Conditions/Symptoms - Diet Regular - Current Appetite good; fair - Access to Food yes - Who Prepares Meals self - Nutrition Risk Screen Eating less than 50% of their meals greater than 5 days prior to admission - GI constipation Conditions/Symptoms - Last Bowel Movement (MMM-dd-yy) - Usual Bowel Pattern weekly - renal calculi; recent urinary tract infection; Conditions/Symptoms recurrent urinary tract infection - Reproductive none Conditions/Symptoms, Female - History of STD/STI none - Musculoskeletal none Conditions/Symptoms - Usual Activity good Tolerance - Ambulation 0 - Independent with ambulation - Transferring 0 - Independent with transfers - Toileting 0- Independent with toileting - Bathing 0- Independent with bathing - Dressing 0- Independent with dressing - Eating 0- Independent with eating - Swallowing no swallowing issues reported - Cognition no cognition issues reported - Communication/speech no speech or language problems - Fall history within No history of falls last six months - Which of the above none functional risks had a recent onset or change? - Skin new tattoo a week ago Conditions/Symptoms - Endocrine none Conditions/Symptoms - Hematological anemia Conditions/Symptoms - Immune /Infections none - Influenza vaccine has not received for this flu season - Influenza vaccine patient has long-term health problems indications (check all that apply) - Influenza Vaccine none of the above contraindications Contraindications (check all that apply) - Pneumococcal Vaccine never immunized - Pneumococcal Vaccine none of the above indications Indications - offer year round (Check all that apply) - Oncology none Conditions/Symptoms - Mental Health none Conditions/Symptoms Skin Inspection - Skin Inspection: WDL: color consistent w/ ethnicity; no abnormality in temperature, moisture, turgor, integrity Family History - Family History females on mothers side of the family have Comment Crohns Coping Stress/Abuse - Major change in residence; No health insurance Change/Loss/Stressor - QUESTION TO PATIENT: No Has a member of your family or a partner(now or in the past) intimidated, hurt, manipulated, or controlled you in any way? - NURSE OBSERVATION: Is No there reason to believe there has been maltreatment of a vulnerable adult (ie. Physical/Sexual/Emot_ ioanl abuse, self neglect, lack of adequate food, senior care, medical care, or financial exploitation)? Values/Beliefs/Spiritual Care - C: Community: In no thank you support of your spiritual health, is there someone we may contact for you? (identify all that apply) Learning Assessment - Factors Influencing no factors identified Readiness to Learn - Factors that Impact none Ability to Learn - Learning Preferences written material - Cultural none Considerations - Developmental none Considerations - Shinto none Considerations Mutuality/Individual Preferences - What information none would help us give you more personalized care? 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 Discussed allergies, DX and creatine. New orders for repeat IV toradol and benadryl. Signatures KARELY PETERSEN (RN)[Signed 22:18] Authored: Notification documented in this encounter Plan of Treatment Not on filedocumented as of this encounter Visit Diagnoses Not on filedocumented in this encounter Care Teams Stone Finisher Relationship Specialty Start Date End Date Janis Cuellar MD PCP - General 07/08/01 10/12/19 Jamie GAMBINO [address] [address] documented as of this encounter
--- OUTSIDE RECORDS SUMMARY | 2022-04-25 22:25 | XMS_ITS | Encounter Summary ---
:1985 Author Organization [facility] Address [address] [place] [address] Care Team Providers Name Role Phone Janis Cuellar MD Primary Care Provider Reason for Visit Reason Onset Date Comments Nurse Advice Line 07/24/2012 Encounter Details Date Type Department Care Team Description 07/24/2012 Telephone [facility] Tracey Cuellar MD Nurse Advice Line [place] [address] [facility] [address] [place] [address] [place], [place] [phone] (Wo rk) [address] [phone] Social History Tobacco Use Types Packs/Day Years Used Date Smoking Tobacco: Never Smokeless Tobacco: Never Alcohol Use Standard Drinks/Week Comments Yes 0 (1 standard drink = 0.6 oz pure alcoho l) casual Sex Assigned at Date Recorded Not on file documented as of this encounter Miscellaneous Notes Telephone Encounter - Stephanie Desouza - 07/25/2012 12:23 PM CST [facility] Triage Call Report Patient Name: Estefania Mckeon Call Date & Time: 07/24/2012 6:32:48PM Patient PCP Name: Janis Cuellar Patient Address: Patient Date of : 1985 Age: 27 yr. Patient Gender: Female Director Of Orthopedics Name: Keri Noriega Presenting Problem: I called number and got answering machine. Left message for caller to call FNA back through clinic. Triage Note: Guideline Title: No Guideline - Advice Per Reference (Adult) Recommended Disposition: Override Disposition: Provide Home/Self Care Question Response Question Note ACTIVATE EMS 911 No SEE ED IMMEDIATELY No CALL PROVIDER IMMEDIATELY No CALL POISON CENTER IMMEDIATELY No CALL LOCAL AGENCY IMMEDIATELY No SEE PROVIDER WITHIN 4 HOURS No SEE DENTIST WITHIN 4 HOURS No SEE PROVIDER WITHIN 24 HOURS No SEE DENTIST WITHIN 24 HOURS No CALL PROVIDER WITHIN 24 HOURS No CALL LOCAL AGENCY WITHIN 24 HOURS No SEE PROVIDER WITHIN 72 HOURS No CALL PROVIDER WITHIN 72 HOURS No SEE DENTIST WITHIN 72 HOURS No SEE PROVIDER WITHIN 2 WEEKS No SEE DENTIST WITHIN 2 WEEKS No PROVIDE HOME/SELF CARE Yes Physician Contacted: Physician Instructions: No Care Advice: - MEDICAL HISTORY Conditions: Condition Note: Medication: Medication Note: Allergy: Reaction: Procedure: Procedure Note: RIALS CLERK documented in this encounter Plan of Treatment Not on filedocumented as of this encounter Visit Diagnoses Not on filedocumented in this encounter Care Teams Professional Fighter Relationship Specialty Start Date End Date Janis Cuellar MD PCP - General 07/08/01 10/12/19 Jamie GAMBINO [facility] [address] [place] [address] documented as of this encounter
--- OUTSIDE RECORDS SUMMARY | 2022-04-25 22:25 | XMS_ITS | Encounter Summary ---
:1985 Author Organization [place] Address [address] [place] [address] Care Team Providers Name Role Phone Janis Cuellar MD Primary Care Provider Encounter Details Date Type Department Care Team Description 07/21/2012 Hospital Encounter [facility] Janis Cuellar MD IRON DEFIC ANEMIA NOS; [facility] [address] [place]; [address] [place] [address] [phone] Social History Tobacco Use Types Packs/Day Years Used Date Smoking Tobacco: Never Smokeless Tobacco: Never Alcohol Use Standard Drinks/Week Comments Yes 0 (1 standard drink = 0.6 oz pure alcoho l) casual Sex Assigned at Date Recorded Not on file documented as of this encounter Medications at Time of Discharge Medication Sig Dispensed Refills Start Date End Date Ibuprofen (ADVIL PO) Take by mouth. Prn for 0 07/25/2012 pain documented as of this encounter Plan of Treatment Not on filedocumented as of this encounter Procedures Procedure Name Priority Date/Time Associated Comments Diagnosis CBC WITH PLATELETS & Routine 07/21/2012 9:24 AM IRON DEFIC ANE FANNY Results for this DIFFERENTIAL SUPERVISOR ENGRAVING NOS procedure are in Fatigue the results section. TSH WITH FREE T4 Routine 07/21/2012 9:24 AM [place] Results for this REFLEX SUPERVISOR ENGRAVING Jaund[place] procedure are i n the results section. T4 FREE Routine 07/21/2012 9:24 AM Results f or this SUPERVISOR ENGRAVING procedure are i n the results section. IRON AND IRON BINDING Routine 07/21/2012 9:24 AM IRON DEFIC AN EMIA Results for this CAPACITY SUPERVISOR ENGRAVING NOS procedure are i n the results section. FERRITIN Routine 07/21/2012 9:24 AM IRON DEFIC ANEMIA Resu lts for this SUPERVISOR ENGRAVING NOS procedure are i n the results section. COMPREHENSIVE Routine 07/21/2012 9:24 AM Fatigue Results for this METABOLIC PANEL SUPERVISOR ENGRAVING [place] procedure ar e in the results section. documented in this encounter Results T4 free (07/21/2012 9:24 AM SUPERVISOR ENGRAVING) athologist Signature T4 Free 1.07 0.70 - 1.85 [facility] ng/dL [facility] Specimen Anatomical Collection Method Collection Time Receive d Time (Source) Location / / Volume Laterality 07/21/2012 9:24 AM 3 9:25 SUPERVISOR ENGRAVING AM SUPERVISOR ENGRAVING Janis Cuellar MD LAB - BLOOD ORDERABLES Performing Organization Address [facility] Phon e Number M [facility] [address] [place], [place] [address] [facility] (ABNORMAL) TSH with free T4 reflex (07/21/2012 9:24 AM SUPERVISOR ENGRAVING) athologist Signature TSH 0.15 (L) 0.4 - 5.0 [place] mU/L [facility] Specimen Anatomical Collection Method Collection Time Receive d Time (Source) Location / / Volume Laterality Blood specimen 07/21/2012 9:24 AM 013 9:25 (specimen) SUPERVISOR ENGRAVING AM SUPERVISOR ENGRAVING Janis Cuellar MD LAB - BLOOD ORDERABLES Performing Organization Address [facility] Phon e Number M [facility] [address] [place], [place] [address] [facility] (ABNORMAL) Ferritin (07/21/2012 9:24 AM SUPERVISOR ENGRAVING) athologist Signature Ferritin 4 (L) 10 - 120 [facility] ng/mL [facility] Specimen Anatomical Collection Method Collection Time Receive d Time (Source) Location / / Volume Laterality Blood specimen 07/21/2012 9:24 AM 013 9:25 (specimen) SUPERVISOR ENGRAVING AM SUPERVISOR ENGRAVING Janis Cuellar MD LAB - BLOOD ORDERABLES Performing Organization Address City/[facility] Phon e Number M [facility] [address] [place], [place] [address] [facility] (ABNORMAL) Iron and iron binding capacity (07/21/2012 9:24 AM SUPERVISOR ENGRAVING) Patholo gist Method Time Signature Iron <10 35 - 180 [place] Reviewed, acceptable (L) ug/dL [facility] Iron Binding 525 (H) 240 - 430 [place] Cap ug/dL [facility] Iron <2 (L) 15 - 46 % [place] Saturation [facility] Specimen Anatomical Collection Method Collection Time Receive d Time (Source) Location / / Volume Laterality Blood specimen 07/21/2012 9:24 AM 013 9:25 (specimen) SUPERVISOR ENGRAVING AM SUPERVISOR ENGRAVING Janis Cuellar MD LAB - BLOOD ORDERABLES Performing Organization Address City/State/ZIP Code [facility] [address] [place], [place] [address] [facility] Comprehensive metabolic panel (07/21/2012 9:24 AM SUPERVISOR ENGRAVING) P athologist Signature Sodium 139 133 - 144 [place] mmol/L [facility] Potassium 4.5 3.4 - 5.3 [place] mmol/L [facility] Chloride 104 94 - 109 [place] mmol/L [facility] Carbon Dioxide 24 20 - 32 [place] mmol/L [facility] Anion Gap 10 6 - 17 [place] mmol/L [facility] Glucose 86 60 - 99 [place] mg/dL [facility] Urea Nitrogen 9 5 - 24 [place] mg/dL [facility] Creatinine 0.63 0.52 [facility] 1.04 mg/dL [facility] GFR Estimate >90 >60 [place] mL/min/1.[address] LAB GFR Estimate If >90 >60 [place] Black mL/min/1.[address] LAB Calcium 9.2 8.5 - 10.4 [place] mg/dL [facility] Bilirubin Total 0.6 0.2 - 1.3 [place] mg/dL [facility] Albumin 4.3 3.9 - 5.1 [place] g/dL [facility] Protein Total 7.6 6.8 - 8.8 [place] g/dL [facility] Alkaline 52 40 - 150 [place] Phosphatase U/L [facility] ALT 26 0 - 50 U/L [facility] AST 20 0 - 45 U/L [facility] Specimen Anatomical Collection Method Collection Time Receive d Time (Source) Location / / Volume Laterality Blood specimen 07/21/2012 9:24 AM 013 9:25 (specimen) SUPERVISOR ENGRAVING AM SUPERVISOR ENGRAVING Janis Cuellar MD LAB - BLOOD ORDERABLES Performing Organization Address City/State/ZIP Code Phon e Number M [facility] [address] [place] [address] [facility] (ABNORMAL) CBC with platelets differential (07/21/2012 9:24 AM SUPERVISOR ENGRAVING) [facility] gist Method Time Signature WBC 4.0 4.0 - [place] 11.0 [facility] 10e9/[facility] RBC Count 4.14 3.8 - 5.2 [place] 10e12/L [facility] Hemoglobin 7.5 (L) 11.7 - [place] 15.7 g/dL [facility] Hematocrit 26.3 (L) 35.0 - [place] 47.0 % [facility] MCV 64 (L) 78 - 100 [place] fl [facility] MCH 18.1 (L) 26.5 - [place] 33.0 pg [facility] MCHC 28.5 (L) 31.5 - [place] 36.5 g/dL [facility] RDW 19.0 (H) 10.0 - [place] 15.0 % [facility] Platelet Count 280 150 - 450 [place] 10e9/L [facility] Diff Method Automated [facility] LAB % Neutrophils 48.9 40 - 75 % [facility] % Lymphocytes 34.9 20 - 48 % [facility] % Monocytes 13.2 (H) 0 - 12 % [facility] % Eosinophils 2.5 0 - 6 % [facility] % Basophils 0.5 0 - 2 % [facility] % Immature 0.0 0 - 0.4 % [place] Granulocytes [facility] Absolute 2.0 1.6 - 8.3 [place] Neutrophil 10e9/L [facility] Absolute 1.4 0.8 - 5.3 [place] Lymphocytes 10e9/L [facility] Absolute 0.5 0.0 - 1.3 [place] Monocytes 10e9/L [facility] Absolute 0.1 0.0 - 0.7 [place] Eosinophils 10e9/L [facility] Absolute 0.0 0.0 - 0.2 [place] Basophils 10e9/L [facility] Abs Immature 0.0 0 - 0.03 [place] Granulocytes 10e9/L [facility] Specimen Anatomical Collection Method Collection Time Receive d Time (Source) Location / / Volume Laterality Blood specimen 07/21/2012 9:24 AM 013 9:25 (specimen) SUPERVISOR ENGRAVING AM SUPERVISOR ENGRAVING Janis Cuellar MD LAB - BLOOD ORDERABLES Performing Organization Address City/State/ZIP Code Phon e Number M [facility] [address] [place], [place] [address] [facility] documented in this encounter Visit Diagnoses Diagnosis IRON DEFIC ANEMIA NOS Iron deficiency anemia, unspecified Fatigue Other malaise and fatigue Jaundice Jaundice, unspecified, not of documented in this encounter Care Teams Supervisor Meter Shop Relationship Specialty Start Date End Date Janis Cuellar MD PCP - General 07/08/01 10/12/19 [address] [place] [address] documented as of this encounter
--- OUTSIDE RECORDS SUMMARY | 2022-04-25 22:25 | XMS_ITS | Encounter Summary ---
:1985 Author Organization [place] Address [address] [place] [address] Care Team Providers Name Role Phone Janis Cuellar MD Primary Care Provider Reason for Visit Reason Onset Date Comments Anemia 07/21/2012 iron infusion needed Encounter Details Date Type Department Care Team Description 07/21/2012 Telephone [facility] Janis Cuellar MD Anemia (iron infusion Clinic [place] [address] [place] needed) [address] [place] [address] [place], [place] [phone] (Wo rk) [address] [phone] Social History Tobacco Use Types Packs/Day Years Used Date Smoking Tobacco: Never Smokeless Tobacco: Never Alcohol Use Standard Drinks/Week Comments Yes 0 (1 standard drink = 0.6 oz pure alcoho l) casual Sex Assigned at Date Recorded Not on file documented as of this encounter Miscellaneous Notes Telephone Encounter - Silvia Núñez - 07/21/2012 2:30 PM CST Pt informed to call Infusion center on Tuesday and f/u with Rachel. Number given to her. BUSTER Telephone Encounter - Janis Cuellar MD - 07/21/2012 1:31 PM CST Orders done. I left message for patient earlier. Please call her to give number for infusion center. BUSTER Telephone Encounter - Wanda Geiger RN - 07/21/2012 1:08 PM CST Pts hgb is 7.5. Iron studies are abnormal. Dr Cuellar would like to do iron infusion after discussion with pts Catering Attendant. Call to Infusion Therapy to confirm the process. Dr Cuellar needs to place order for iron medication and once signed, then Infusion will have the Intake Department process for insurance approval,. Once approved, then they will be able to schedule her infusion. Rachel, in infusion therapy would like pt to call her on Tuesday, to possibly schedule the infusion. #[phone] BUSTER documented in this encounter Plan of Treatment Not on filedocumented as of this encounter Visit Diagnoses Not on filedocumented in this encounter Care Teams Chemistry Instructor Relationship Specialty Start Date End Date Janis Cuellar MD PCP - General 07/08/01 10/12/19 Jamie GAMBINO [address] [address] documented as of this encounter
--- OUTSIDE RECORDS SUMMARY | 2022-04-25 22:25 | XMS_ITS | Encounter Summary ---
:1985 Author Organization [place] Address [address] [place] [address] Care Team Providers Name Role Phone Janis Cuellar MD Primary Care Provider Encounter Details Date Type Department Care Team Description 02/01/2011 Hospital Laboratory [facility] Janis Perdomo MD [facility] [address] Results [address] [place], [place] [address] (Wo rk) Social History Tobacco Use Types [...] Associated Comments Diagnosis IRON AND IRON Routine 02/01/2011 2:22 PM Results for this BINDING CAPACITY CDT procedure a re in the results section. HEMOGLOBIN Routine 02/01/2011 2:22 PM Results f or this CDT procedure are i n the results section. FERRITIN Routine 02/01/2011 2:22 PM Results f or this CDT procedure are i n the results section. ABO/RH TYPE AND Routine 02/01/2011 2:22 PM Result s for this SCREEN CDT procedure are i n the results section. documented in this encounter Results ABO/Rh type and screen (02/01/2011 2:22 PM CDT) Analysis Performed At Path logist Time Signature ABO O [facility] RH(D) Pos [facility] Antibody Neg [facility] LAB Specimen 02/04/2011 [facility] LAB Specimen Anatomical Collection Method Collection Time Receive d Time (Source) Location / / Volume Laterality 02/01/2011 2:22 PM 1 2:26 CDT PM CDT Janis Cuellar MD LAB - BLOOD BANK TEST ORDER Performing Organization Address City/[facility]/ZIP Code Phon e [place] [facility] [address] [place], [place] [address] [facility] (ABNORMAL) Hemoglobin (02/01/2011 2:22 PM CDT) athologist Signature Hemoglobin 11.6 (L) 11.7 - 15.7 [place] g/dL [facility] Specimen Anatomical Collection Method Collection Time Receive d Time (Source) Location / / Volume Laterality 02/01/2011 2:22 PM 1 2:26 CDT PM CDT Janis Cuellar MD LAB - BLOOD ORDERABLES Performing Organization Address City/[facility]/ZIP [facility] Phon e [place] [facility] [address] [place], [place] [address] [facility] (ABNORMAL) Ferritin (02/01/2011 2:22 PM CDT) athologist Signature Ferritin 6 (L) 10 - 120 [facility] ng/mL [facility] Specimen Anatomical Collection Method Collection Time Receive d Time (Source) Location / / Volume Laterality 02/01/2011 2:22 PM 1 2:26 CDT PM CDT Jnais Cuellar MD LAB - BLOOD ORDERABLES Performing Organization Address City/[facility] Phon e Evens [facility] [address] [place], [place] [address] [facility] (ABNORMAL) Iron and iron binding capacity (02/01/2011 2:22 PM CDT) athologist Signature Iron 30 (L) 35 - 180 [place] ug/dL [facility] Iron Binding 592 (H) 240 - 430 [place] Cap ug/dL [facility] Iron Saturation 5 (L) 15 - 46 % [facility] Specimen Anatomical Collection Method Collection Time Receive d Time (Source) Location / / Volume Laterality 02/01/2011 2:22 PM 1 2:26 CDT PM CDT Janis Cuellar MD LAB - BLOOD ORDERABLES Performing Organization Address City/State/ZIP Code Phon e Number M [facility] [address] [place], [place] [address] [facility] documented in this encounter Visit Diagnoses Not on filedocumented in this encounter Care Teams Forming Press Operator Relationship Specialty Start Date End Date Janis Cuellar MD PCP - General 07/08/01 10/12/19 [address] [place] [address] documented as of this encounter
--- OUTSIDE RECORDS SUMMARY | 2022-04-25 22:25 | XMS_ITS | Encounter Summary ---
:1985 Author Organization [place] Address [address] [place] [address] Care Team Providers Name Role Phone Janis Cuellar MD Primary Care Provider Encounter Details Date Type Department Care Team Description 03/02/[address] [facility] Ralph Parish MD [place] Results [place] [facility] [address] [place], [place] [address] (Wo rk) Social History Tobacco Use Types Packs/Day Years Used Date Smoking Tobacco: Never Alcohol Use Standard Drinks/Week Comments Yes 0 (1 standard drink = 0.6 oz pure alcoho l) casual Sex Assigned at Date Recorded Not on file documented as of this encounter Progress Notes Ralph Parish MD - 03/09/2010 8:37 AM CDT FINAL REQUESTING PHYSICIAN: Enrico Erwin MD REASON FOR CONSULTATION: I have been asked to see this patient by Dr. Erwin for anemia, iron deficiency. HISTORY OF PRESENT ILLNESS: Estefania Mckeon is a 24-year-old lady last seen by me in 05/23/2007 to be precise for anemia and iron deficiency. Since then she has not kept follow up with me as an outpatient. She has had blood work done, dating back to 2006. For example, her white count was 6.8, hemoglobin 10.7, MCV is 72. Done in 02/2007, white count of 4, hemoglobin 4.6, MCV 66. Was noted to be iron deficient then an iron level of 7%,1, ferritin of 3. Hemoglobin electrophoresis negative from last admission. 05/2007, repeat iron studies continue to iron level of 10, iron binding capacity 581,2 and ferritinof 4. to an infected before. On my last visit with her, she was noted to be having heavy periods andwas placed on control pill. Now she tells me the heavy periods are not her symptom anymore. She has no specific GI symptoms like nausea, vomiting, changes in her stool. At this point she says that she goes to the bathroom only once a week but that is not new for her. She has no headache, no blurry vision, no chest pain, no shortness of breath. She is admitted for pyelonephritis and that is being worked up. She endorses significant fatigue, though she said she has had blood transfusion, most recently a few months ago. She has not had IV iron at all as an outpatient. She has intolerance to p.o.iron. While in the hospital, she has had a CT scan of the abdomen done for abdominal pain which shows multiple renal calculi. Otherwise, she is getting better. She is on IV antibiotics right now. Her blood work on this admission, 03/01, showed a white count 6.1, hemoglobin 6.1, platelet count 376, MCVof 60. Iron of less than 10, iron binding capacity 731, iron less than 1, ferritin of 2. Folic acid 13.6, B12 264. On 03/02 after receiving transfusion, white count 7.1, hemoglobin 8.9, platelet count 327, MCV of 66, otherwise is doing well. PAST MEDICAL HISTORY: Iron-deficiency anemia, nephrolithiasis. SOCIAL HISTORY: She is single. She is working at [employer]. She was in [employer] school but not so current. currently. She does not smoke or drink. She has never been . FAMILY HISTORY: Father with type 1 diabetes, hypertension, hyperlipidemia. She says her mom has Crohn's disease. She has a maternal grandmother with cancer. She tells me now that she has an aunt with cancer of unknown type, another one with Crohn's disease of unknown type. MEDICATIONS: Oral contraceptive pills at home. PHYSICAL EXAMINATION: GENERAL: She is a pleasant lady in no acute distress. VITAL SIGNS: Stable. HEENT: Shows moist mucous membranes with no pallor, icterus or thrush. NECK: Supple, no JVP, thyromegaly or lymph nodes. CARDIOVASCULAR: Regular rate and rhythm, no murmurs, rubs or gallops present. RESPIRATORY: Chest clear to auscultation. ABDOMEN: Soft, nontender, nondistended with no hepatosplenomegaly. EXTREMITIES: No cyanosis, clubbing, edema or rash. LYMPHATICS: Lymph nodes felt. LABORATORY DATA: As documented in HPI. IMPRESSION: 1. Microcytic anemia. 2. Iron deficiency profound. 3. Familiy history of Crohn's disease. 4. Previous history of menorrhagia [now says that has resolved RECOMMENDATIONS: 1. With regards to her iron deficiency workup, an occult blood, possible colonoscopy, start off with stool testing. b. Menstrual cycle, though that does not seem to be the case anymore. c. I believe iron deficiency is likely from old menstrual losses and chronic anemia with an inability to keep up with stores. Certainly if she develops new GI symptoms, will consider further workup, IV ironmight be considered down the road if she is not responding. d. She was urged to keep outpatientfollowup. She needs to receive IV iron and we will go ahead and get that set up as an outpatient. She does need to make sure that she keeps her followup. Thank you for this request. Electronically signed on 03/09/2010 08:36 by RALPH PARISH MD MT: [id number] Name: ESTEFANIA MCKEON MRN: [id number] Account: [id number] : 1985 Consult Date: 03/02/2010 Document: [id number] cc: Enrico Erwin MD documented in this encounter Plan of Treatment Not on filedocumented as of this encounter Visit Diagnoses Not on filedocumented in this encounter Care Teams Morning Show Newscast Producer Relationship Specialty Start Date End Date Janis Cuellar MD PCP - General 07/08/01 10/12/19 [address] [place] [address] documented as of this encounter
--- OUTSIDE RECORDS SUMMARY | 2022-04-25 22:25 | XMS_ITS | Encounter Summary ---
:1985 Author Organization [place] Address [address] [place] [address] Care Team Providers Name Role Phone Janis Cuellar MD Primary Care Provider Reason for Visit Reason Onset Date Comments Call To Schedule Appointment 08/14/2011 Encounter Details Date Type Department Care Team Description 08/14/2011 Telephone [facility] Jermaine De eLon Call T o Schedule [facility] MD Natalie Appointment [place] [facility] [address] [place] [address] Social History Tobacco Use Types Packs/Day Years Used Date Smoking Tobacco: Never Alcohol Use Standard Drinks/Week Comments Yes 0 (1 standard drink = 0.6 oz pure alcoho l) casual Sex Assigned at Date Recorded Not on file documented as of this encounter Miscellaneous Notes Telephone Encounter - Lenore Gregory - 08/16/2011 8:45 AM CDT Message given to station coordinator to call to schedule. Lenore Gregory RN Telephone Encounter - Dona Orellana - 08/14/2011 1:53 PM CDT Patient took test a week ago was positive for needs to schedule confirmation, and is also anemic and needs that addressed. Call home number to schedule. Can leave message Thank you documented in this encounter Plan of Treatment Not on filedocumented as of this encounter Visit Diagnoses Not on filedocumented in this encounter Care Teams Supervisor Detasseling Crew Relationship Specialty Start Date End Date Janis Cuellar MD PCP - General 07/08/01 10/12/19 [address] [place] [address] documented as of this encounter
--- OUTSIDE RECORDS SUMMARY | 2022-04-25 22:25 | XMS_ITS | Encounter Summary ---
:1985 Author Organization [place] Address [address] [place] [address] Care Team Providers Name Role Phone Janis Cuellar MD Primary Care Provider Encounter Details Date Type Department Care Team Description 07/23/2012 Hospital Encounter [facility] Janis Cuellar MD IRON DEFIC ANEMIA [facility] [address] [place] [address] [phone] Social History Tobacco Use Types Packs/Day Years [...] Name Priority Date/Time Associated Diagnosis Comme nts BLOOD COMPONENT Routine 07/23/2012 9:54 AM Result s for this JINGLE WRITER procedure are i n the results section. ABO/RH TYPE AND Routine 07/23/2012 9:54 AM IRON DEFIC ANEMIA R esults for this SCREEN JINGLE WRITER NOS procedure are i n the results section. documented in this encounter Results Blood component (07/23/2012 9:54 AM JINGLE WRITER) [facility] Method Time Signature Unit Number [id number] [facility] Blood Red Blood [place] Component Cells [facility] [address] [facility] Reduced Division 00 [facility] Status of Released to [place] Unit care unit [facility] Specimen Anatomical Collection Method Collection Time Receive d Time (Source) Location / / Volume Laterality 07/23/2012 9:54 AM 3 9:58 JINGLE WRITER AM JINGLE WRITER Janis Cuellar MD LABORATORY Performing Organization Address City/[facility]/ZIP Code Phon e Number M [facility] [address] [place], [place] [address] [facility] ABO/Rh type and screen (07/23/2012 9:54 AM JINGLE WRITER) [facility] gist Method Time Signature Units Ordered 1 [facility] ABO O [facility] RH(D) Pos [facility] Antibody Screen Neg [facility] Specimen 07/26/2012 [facility] Cross[facility] Red Blood [facility] Specimen Anatomical Collection Method Collection Time Receive d Time (Source) Location / / Volume Laterality Blood specimen 07/23/2012 9:54 AM 013 9:58 (specimen) JINGLE WRITER AM JINGLE WRITER Janis Cuellar MD LAB - BLOOD BANK TEST ORDER Performing Organization Address City/[facility] Phon e Number Tracey [facility] [address] [place] [place], [place] [address] [facility] documented in this encounter Visit Diagnoses Diagnosis IRON DEFIC ANEMIA NOS Iron deficiency anemia, unspecified documented in this encounter Care Teams Field Representatives Director Relationship Specialty Start Date End Date Janis Cuellar MD PCP - General 07/08/01 10/12/19 [address] [place] [address] documented as of this encounter
--- OUTSIDE RECORDS SUMMARY | 2022-04-25 22:25 | XMS_ITS | Encounter Summary ---
:1985 Author Organization [place] Address [address] [place] [address] Care Team Providers Name Role Phone Janis Cuellar MD Primary Care Provider Encounter Details Date Type Department Care Team Description 07/21/2012 Orders Only [facility] Janis Cuellar MD Iron (Fe) deficiency Clinic [place] [address] anemia (Primary Dx) [address] [place], [place] [address] [address] [place], [place] [phone] (Wo rk) [address] [phone] Social History Tobacco Use Types Packs/Day Years [...] unspecified documented in this encounter Care Teams Botany Professor Relationship Specialty Start Date End Date Janis Cuellar MD PCP - General 07/08/01 10/12/19 [address] [place], [place] [id number] documented as of this encounter
--- OUTSIDE RECORDS SUMMARY | 2022-04-25 22:25 | XMS_ITS | Encounter Summary ---
:1985 Author Organization [facility] Address [address] [place] [address] Care Team Providers Name Role Phone Janis Cuellar MD Primary Care Provider Reason for Visit Reason Onset Date Comments Nurse Advice Line 12/18/2011 Encounter Details Date Type Department Care Team Description 12/18/2011 Telephone [facility] Tracey Cuellar MD Nurse Advice Line [employer] [facility] [address] [facility] [address] [facility] [address] [place] [address] [place], [place] [phone] (Wo rk) [address] [phone] Social History Tobacco Use Types Packs/Day Years Used Date Smoking Tobacco: Never Smokeless Tobacco: Never Alcohol Use Standard Drinks/Week Comments Yes 0 (1 standard drink = 0.6 oz pure alcoho l) casual Sex Assigned at Date Recorded Not on file documented as of this encounter Miscellaneous Notes Telephone Encounter - Maryellen Mcdaniels - 07/13/2012 4:10 PM CST [facility] Triage Call Report Patient Name: Estefania Mckeon Call Date & Time: 12/18/2011 1:31:16PM Patient Phone: [phone] PCP Name: Janis Cuellar Patient Address: Patient Date of : 1985 Age: 27 yr. Patient Gender: Female Nurse Prn Name: Sarah Suggs Presenting Problem: Caller states that she was seen in ED at [facility] on Tuesday and found to have a bladder infection. She has been on antibiotics for over 2 days now, but says that the pain in her back has gotten much worse. Advised she should check with ED and see if they got a culture report back yet to see if she needs a change of antibiotics. Otherwise, she should be seen again today. Triage Note: Guideline Title: Urinary Tract Infection Follow-Up Call (Pediatric) Recommended Disposition: Override Disposition: See Provider within 4 hours Question Response Question Note Shock suspected (very weak, limp, not moving, too weak to stand, pale cool skin) No FIRST AID: Have child lie down with the feet elevated Sounds like a life-threatening emergency to the triager No Pain or burning with urination, but not taking antibiotics No for UTI [1] Can't pass urine or can only pass a few drops AND [2] bladder feels very full No (e.g., strong urge to urinate) Passing pure blood or large blood clots (size > a dime) No (EXCEPTION: flecks, small strands, or pinkish-red color) [1] Fever > 105 F (40.6 C) by any route OR axillary > 104 No F (40 C) AND [2] took antibiotic > 24 hours Child sounds very sick or weak to the triager No [1] SEVERE pain (e.g., excruciating) AND [2] no No improvement 2 hours after pain medications [1] Fever AND [2] new onset since starting antibiotics No (EXCEPTION: on prophylactic antibiotics for UTI prevention) [1] Side (flank) or lower back pain AND [2] new onset Yes since starting antibiotics Physician Contacted: Physician Instructions: No Care Advice: - CARE ADVICE given per Urinary Tract Infection Follow-Up Call (Pediatric) guideline. - PAIN: Give ibuprofen q 6 hours or acetaminophen q 4 hours as needed to reduce pain. (See Dosage table) - SEE PHYSICIAN WITHIN 4 HOURS (or PCP triage) IF NO PCP TRIAGE: Your child needs to be examined within the next 3 or 4 hours. Go to (ED/UCC or office if it will be open) Go sooner if your child becomes worse. IF PCP TRIAGE REQUIRED: Your child may need to be seen. Your doctor will want to talk with you to decide what's best. I'll page him now. If you haven't heard from the on-call doctor within 30 minutes, call again. (Note: If PCP can't be reached, send to ED/UCC or office.) MEDICAL HISTORY Conditions: Condition Note: Medication: Medication Note: Allergy: Reaction: Procedure: Procedure Note: PI ARCHITECT documented in this encounter Plan of Treatment Not on filedocumented as of this encounter Visit Diagnoses Not on filedocumented in this encounter Care Teams Flask Cleaner Relationship Specialty Start Date End Date Janis Cuellar MD PCP - General 07/08/01 10/12/19 [address] [address] documented as of this encounter
--- OUTSIDE RECORDS SUMMARY | 2022-04-25 22:25 | XMS_ITS | Encounter Summary ---
:1985 Author Organization [facility] Address [address] [place] [address] Care Team Providers Name Role Phone Janis Cuellar MD Primary Care Provider Reason for Visit Reason Onset Date Comments Arm Pain 03/06/2010 Encounter Details Date Type Department Care Team Description 03/06/[address] [facility] Tracey Cuellar MD Arm Pain [place] [address] [facility] [address] [place] [address] [address] [place] [address] [phone] Social History Tobacco Use Types Packs/Day Years Used Date Smoking Tobacco: Never Alcohol Use Standard Drinks/Week Comments Yes 0 (1 standard drink = 0.6 oz pure alcoho l) casual Sex Assigned at Date Recorded Not on file documented as of this encounter Miscellaneous Notes Telephone Encounter - Wanda Geiger - 03/06/2010 11:25 AM CDT Pt calls, she was in hospital for pyelonephritis and discharged Tuesday. Her right arm was painful after IV taken out. Now her pain is worse, her arm is swollen all the way up to elbow. The IV was in her right wrist. She states the vein is red all the way up to elbow. Her fingers are going numb. Advised pt to go to . She agrees. documented in this encounter Plan of Treatment Not on filedocumented as of this encounter Visit Diagnoses Not on filedocumented in this encounter Care Teams Pattern Room Attendant Relationship Specialty Start Date End Date Janis Cuellar MD PCP - General 07/08/01 10/12/19 [address] [place] [address] documented as of this encounter
--- OUTSIDE RECORDS SUMMARY | 2022-04-25 22:25 | XMS_ITS | Encounter Summary ---
:1985 Author Organization [place] Address [address] [place] [address] Care Team Providers Name Role Phone Janis Cuellar MD Primary Care Provider Reason for Visit Reason Onset Date Comments Abnormal Uterine Bleeding 01/29/2011 Encounter Details Date Type Department Care Team Description 01/29/2011 Telephone [facility] Janis Cuellar MD Abnormal Uterine Clinic [place] [address] Bleeding [address] [place] [address] [place], [place] [phone] (Wo rk) [address] [phone] Social History Tobacco Use Types Packs/Day Years Used Date Smoking Tobacco: Never Alcohol Use Standard Drinks/Week Comments Yes 0 (1 standard drink = 0.6 oz pure alcoho l) casual Sex Assigned at Date Recorded Not on file documented as of this encounter Miscellaneous Notes Telephone Encounter - Janis Cuellar MD - 01/29/2011 2:40 PM CDT Okay, agree with plan. Telephone Encounter - Wanda Geiger - 01/29/2011 1:19 PM CDT FYI Pt calling back. She states she is taking oral contraceptives, Aviane, for 4-5 months. Periods are not heavy. She thinks she can wait until Tuesday, but will go to ER if sx worsen. Informed her that referral was placed. She agrees. Made appt with Dr Cuellar on Tuesday afternoon. Telephone Encounter - Wanda Geiger - 01/29/2011 1:09 PM CDT Attempted to contact pt. Left message to call clinic. Telephone Encounter - Janis Cuellar MD - 01/29/2011 12:18 PM CDT Is she still on control? Did she recently start or stop it? Are her periods heavy? Are her symptoms bad enough to feel she may need a transfusion in the next few days? If so, should go to ER. She did have transfusions in September at [facility]. If not, should schedule long appt early next week and can do labs, consider outpatient transfusion. She will probably need to go back to hematology; referral done and she can call for appt. If periods ongoing problem will need to schedule with obgyn nurse. Telephone Encounter - Wanda Geiger - 01/29/2011 11:32 AM CDT Pt calls stating she has had vaginal spotting for 1 1/2 to 2 weeks. Feeling more tired, fatigue, forone week. She has a history of anemia. Is not taking iron supplements. She thinks it does not work. She saw the Veterinary Nurse in 2008 for this. No shortness of breath, no chest pain. Getting headaches. If doing strenuous activities, will get lightheaded. She has health insurance now and is able to follow up. No openings today, Please advise if this is OK to wait until Tuesday. documented in this encounter Plan of Treatment Not on filedocumented as of this encounter Visit Diagnoses Not on filedocumented in this encounter Care Teams Squirt Machine Operator Relationship Specialty Start Date End Date Janis Cuellar MD PCP - General 07/08/01 10/12/19 [address] [place] [address] documented as of this encounter
--- OUTSIDE RECORDS SUMMARY | 2022-04-25 22:25 | XMS_ITS | Encounter Summary ---
:1985 Author Organization [place] Address [address] [place] [address] Care Team Providers Name Role Phone Janis Cuellar MD Primary Care Provider Encounter Details Date Type Department Care Team Description 03/03/2010 Discharge Summary [facility] Enrico Erwin MD (Consultant Nurse) [facility] [address] [place] [address] (Wo rk) Social History Tobacco Use Types Packs/Day Years Used Date Smoking Tobacco: Never Alcohol Use Standard Drinks/Week Comments Yes 0 (1 standard drink = 0.6 oz pure alcoho l) casual Sex Assigned at Date Recorded Not on file documented as of this encounter Progress Notes Enrico Erwin - 03/20/2010 10:16 AM CDT FINAL PRIMARY CARE PHYSICIAN: ADMITTING DIAGNOSES: 1. Pyelonephritis. 2. Anemia. 3. History of bilateral ureteral stone/nephrolithiasis. DISCHARGE DIAGNOSES: 1. Left-sided pyelonephritis. 2. Microcytic anemia with profound iron deficiency. The patient has a history of Crohn's disease and prior history of medication arrived that has resolved. 3. History of ureteral stones. HOSPITAL COURSE: As previously noted, this 24-year-old female has had a history of chronic anemia. The evaluation for hemoglobinopathy has been negative, but has not had GI workup or follow up with Hematology as an outpatient. She presented and was admitted to the fifth floor medical/surgical area for 2 day history of left flank pain. Lab findings and exam supported diagnosis of left-sidedpyelonephritis. She was initiated on intravenous Levaquin. She was transfused for hemoglobin in the mid 6 point grams per deciliter range on the third hospital day. Hematology evaluation occurred confir coreen profound iron deficiency. The patient was started on oral iron replacement and strongly recommended to follow up to initiate 2 courses of outpatient intravenous iron in the form of Venofer with Hematology. With the patient otherwise afebrile and improved and hemodynamically normal and stable, the patient was discharged to home 03/03/2012 DISCHARGE MEDICATIONS: 1. Percocet 5/325 strength tab, 1-2 tablets every 6 hours as needed for pain, #45 with no refill. 2Ciprofloxacin 500 mg tabs 1 tab p.o. b.i.d. x10 days, #20 with no refill. 3. Niferex 150 mg tab 1 tab p.o. q. day, #90, refill 3. FOLLOWUP PLANS: 1. The patient will follow up with Dr. Khushbu Sandy at the [facility] in [place], [place] in 2-3 weeks for initiation of Venofer therapy, a total of 2 IV transfusions each 2 weeks apart. 2. The patient will follow up with her primary provider, Dr. Janis Cuellar at [facility] within 4 weeks. The importance of medical compliance stressed upon the patient as well as followup. Electronically signed on 03/20/2010 10:16 by ENRICO ERWIN MD MT: [id number] Name: ESTEFANIA MCKEON MRN: [id number] Account: [id number] : 1985 Admit Date: Discharge Date: 03/03/2010 Document: [id number] cc: Janis Cuellar MD documented in this encounter Plan of Treatment Not on filedocumented as of this encounter Visit Diagnoses Not on filedocumented in this encounter Care Teams Ticker Maintainer Relationship Specialty Start Date End Date Janis Cuellar MD PCP - General 07/08/01 10/12/19 [address] [facility] [address] [place] [address] documented as of this encounter
--- OUTSIDE RECORDS SUMMARY | 2022-04-25 22:25 | XMS_ITS | Encounter Summary ---
:1985 Author Organization [place] Address [address] [place] [address] Care Team Providers Name Role Phone Janis Cuellar MD Primary Care Provider Encounter Details Date Type Department Care Team Description 09/28/2011 Office Visit [facility] Eri Harvey nuate uterus [facility] MD [place] (Primary Dx) [address] [place] [address] [place], [place] [phone] (Wo rk) [address] [phone] Social History Tobacco Use Types Packs/Day Years Used Date Smoking Tobacco: Never Smokeless Tobacco: Never Alcohol Use Standard Drinks/Week Comments Yes 0 (1 standard drink = 0.6 oz pure alcoho l) casual Sex Assigned at Date Recorded Not on file documented as of this encounter Progress Notes Eri Harvey MD - 09/28/2011 3:04 PM CDT Subjective:26 year old female Obstetric History T0 TAB0 SAB0 E0 M0 L0 here for hysterosonogram for possible septate versus bicornuate uterus. Objective: PELVIC: Vulva: normal external female genitalia, Urethra meatus: normal, non-tender Vagina: normal vaginal mucosa, rugated, no lesions, normal physiologic discharge. Cervix: nulliparous cervix, no lesions. Patient consented to hysterosonogram; procedures, risks discussed and all questions answered. Speculum placed in vagina; cervix prepped with betadine. Intrauterine catheter placed through cervix without difficulty. Approx 60 cc sterile saline instilled in uterus during transvaginal scan. Patient tolerated procedure well. Uterus: Normal contour on bimanual, normal size, position; non-tender Adnexa: No adnexal masses palpated, non-tender Perineum: normal, no lesions, intact Anus: normal, no lesions, hemorrhoids Assessment/Plan: 752.34 Bicornuate uterus (primary encounter diagnosis) Comment: Confirmed with pelvic US, hysterosonogram and 3D images; discussed obstetrical complications. Reviewed contraception options. Will order renal US for evaluation of renal anomalies. All questions answered. Plan: US Retroperitoneal complete documented in this encounter Plan of Treatment Not on filedocumented as of this encounter Visit Diagnoses Diagnosis Bicornuate uterus - Primary documented in this encounter Care Teams Agronomy Supervisor Relationship Specialty Start Date End Date Janis Cuellar MD PCP - General 07/08/01 10/12/19 Jamie GAMBINO [address] [id number] documented as of this encounter
--- OUTSIDE RECORDS SUMMARY | 2022-04-25 22:25 | XMS_ITS | Encounter Summary ---
:1985 Author Organization [place] Address [address] [place] [address] Care Team Providers Name Role Phone Janis Cuellar MD Primary Care Provider Reason for Visit Reason Onset Date Comments Arm Pain 03/12/2010 phlebitis Encounter Details Date Type Department Care Team Description 03/12/2010 Telephone [facility] Janis Cuellar MD Arm Pain (phlebitis ) Clinic [place] [address] [facility] [address] [place] [address] [place], [place] [phone] (Wo rk) [address] [phone] Social History Tobacco Use Types Packs/Day Years Used Date Smoking Tobacco: Never Alcohol Use Standard Drinks/Week Comments Yes 0 (1 standard drink = 0.6 oz pure alcoho l) casual Sex Assigned at Date Recorded Not on file documented as of this encounter Miscellaneous Notes Telephone Encounter - Wanda Geiger - 03/12/2010 12:41 PM CDT Mother is calling for pt. Pt was d/c from hospital on 03/03/10. She still has phlebitis of left arm.Went to on 03/06/10. Not worsening, except more tender, difficult to bend arm. The vein is hard, slightly red. Denies fever. Advised to monitor for worsening symptoms, swelling, warmth, redness, fever. Also monitor for chest pain, shortness of breath, and to call clinic or go to ER. She agrees. documented in this encounter Plan of Treatment Not on filedocumented as of this encounter Visit Diagnoses Not on filedocumented in this encounter Care Teams Rn Residential Relationship Specialty Start Date End Date Janis Cuellar MD PCP - General 07/08/01 10/12/19 [address] [place] [address] documented as of this encounter
--- OUTSIDE RECORDS SUMMARY | 2022-04-25 22:25 | XMS_ITS | Encounter Summary ---
:1985 Author Organization [place] Address [address] [place] [address] Care Team Providers Name Role Phone Janis Cuellar MD Primary Care Provider Reason for Visit Reason Comments UTI Frequency and painfull bladd er area, urine is cloudy and odor, sms x 2 weeks Pre Visit Planning - Done PVC not needed Encounter Details Date Type Department Care Team Description 06/08/2012 Office Visit [facility] Janis Cuellar MD UTI (urinary tract infection) (Primary D x); Clinic [place] [address] Need for Tdap vaccination; [address] Need for prophylactic vaccination and in oculation against influenza [place], [place] [address] [address] [place], [place] [phone] [address] (Work) [phone] Social History Tobacco Use Types Packs/Day Years Used Date Smoking Tobacco: Never Smokeless Tobacco: Never Alcohol Use Standard Drinks/Week Comments Yes 0 (1 standard drink = 0.6 oz pure alcoho l) casual Sex Assigned at Date Recorded Not on file documented as of this encounter Last Filed Vital Signs Vital Sign Reading Time Taken Comments Blood Pressure 105/65 06/08/2012 11:55 AM MILL OPERATOR Pulse 112 06/08/2012 11:55 AM MILL OPERATOR Temperature 36.5 ??C (97.7 ??F) 06/08/2012 11:55 AM MILL OPERATOR Respiratory Rate - - Oxygen Saturation 100% 06/08/2012 11:55 AM MILL OPERATOR Inhaled Oxygen Concentration - - Weight 58.9 kg (129 lb 14.4 oz) 06/08/2012 11:55 AM MILL OPERATOR Height 175.3 cm (5' 9) 06/08/2012 11:55 AM MILL OPERATOR Body Mass Index 19.18 06/08/2012 11:55 AM MILL OPERATOR documented in this encounter Progress Notes Janis Cuellar MD - 06/08/2012 12:03 PM CST Subjective: Estefania Mckeon is a 27 year old female who presents with c/o dysuria, frequency, suprapubic pain and pressure and cloudy, smelly urine for 2 weeks. She has some constant discomfort lower abdomen. Patient Active Problem List Diagnoses ??? IRON DEFIC ANEMIA NOS ??? CARDIOVASCULAR SCREENING; LDL GOAL LESS THAN 160 ??? ASCUS on Pap smear ??? Bicornuate uterus Current Outpatient Prescriptions Medication Sig ??? Ibuprofen (ADVIL PO) Take by mouth. Prn for pain History Substance Use Topics ??? Smoking status: Never Smoker ??? Smokeless tobacco: Never Used ??? Alcohol Use: Yes casual ROS: no fever, chills, achy a week ago, no hematuria, no nausea, vomiting, some lower abdominal discomfort, no flank pain, Objective: Patient alert in NAD BP 105/65 Pulse 112 Temp(Src) 97.7 ??F (36.5 ??C) (Oral) Ht 5' 9 (1.753 m) Wt 129 lb 14.4 oz (58.922 kg) BMI 19.18 kg/m2 SpO2 100% LMP 06/25/2011 CVA: nontender Abdomen: Bowel sounds normal, soft, nontender. No hepatosplenomegaly. No masses. Urine: Nitrite positive Leukocyte esterase small WBC's 50-100 Bacteria moderate .Assessment: UTI Plan: See med order, UC was ordered, Advised of potential side effects of medications and recommend she contact me for significant reactions.. Recommend follow-up for persistent fever, worsening symptoms, lack of improvement in 3 days.. OPERATOR documented in this encounter Nursing Notes 06/08/2012 11:30 AM CST >> ALESSIA EUCEDA [facility] Jun 08, 2012 11:59 AM Patient presents with: UTI - Frequency and painfull bladder area, urine is cloudy and odor, sms x 2 weeks Pre Visit Planning - Done - PVC not needed Initial BP 105/65 Pulse 112 Temp(Src) 97.7 ??F (36.5 ??C) (Oral) Ht 5' 9 (1.753 m) Wt 129 lb 14.4 oz (58.922 kg) BMI 19.18 kg/m2 SpO2 100% LMP 06/25/2011 Estimated Body mass index is 19.18 kg/(m^2) as calculated from the following: Height as of this encounter: 5' 9(1.753 m). Weight as of this encounter: 129 lb 14.4 oz(58.922 kg).. BP completed using cuff size regular Alessia Euceda/RENAN documented in this encounter Plan of Treatment Not on filedocumented as of this encounter Procedures Procedure Name Priority Date/Time Associated Comments Diagnosis URINE CULTURE Routine 06/08/2012 12:42 UTI (urinary tract Resu lts for this PM MILL OPERATOR infection) procedure are i n the results section. URINE MICROSCOPIC Routine 06/08/2012 12:35 Result s for this PM MILL OPERATOR procedure are i n the results section. UA MACROSCOPIC WITH STAT 06/08/2012 12:35 UTI (urinary trac t Results for this REFLEX TO MICRO PM MILL OPERATOR infection) procedure ar e in the results section. documented in this encounter Results Urine culture (06/08/2012 12:42 PM MILL OPERATOR) Component Value Ref Test Analysis Performed At [facility] Range Method Time Signature Specimen Midstream [facility] Description Urine CLINIC LAB Culture Micro >100,000 [facility] colonies/mL MICROBIOLOGY Escherichia coli Micro Report FINAL [facility] Status 06/13/2012 MICROBIOLOGY Specimen Anatomical Collection Method Collection Time Receive d Time (Source) Location / / Volume Laterality Urine specimen 06/08/2012 12:42 3 (specimen) PM MILL OPERATOR 12:48 PM MILL OPERATOR Organism Antibiotic Method Susceptibility >100,000 colonies/ml Ampicillin 8 Susceptib le ug/mL escherichia coli (pamela) >100,000 colonies/ml Cefazolin <=4 Suscept ible ug/mL escherichia coli (pmaela) >100,000 colonies/ml Cefoxitin 8 Susceptib le ug/mL escherichia coli (pamela) >100,000 colonies/ml Ceftriaxone <=1 Suscept ible ug/mL escherichia coli (pamela) >100,000 colonies/ml Ciprofloxacin <=0.25 Susc eptible ug/mL escherichia coli (pamela) >100,000 colonies/ml Gentamicin <=1 Suscept ible ug/mL escherichia coli (pamela) >100,000 colonies/ml Levofloxacin <=0.12 Susc eptible ug/mL escherichia coli (pamela) >100,000 colonies/ml Nitrofurantoin <=16 Suscep tible ug/mL escherichia coli (pamela) >100,000 colonies/ml Tobramycin <=1 Suscept ible ug/mL escherichia coli (pamela) >100,000 colonies/ml Trimethoprim/Sulfamethoxazol <=1/19 Susceptible ug/mL escherichia coli (pamela) e >100,000 colonies/ml Ampicillin/Sulbactam 4 Susc eptible ug/mL escherichia coli (pamela) >100,000 colonies/ml Cefepime <=1 Suscept ible ug/mL escherichia coli (pamela) >100,000 colonies/ml Piperacillin/Tazo 8.0 Susce ptible ug/mL escherichia coli (pamela) Janis Cuellar MD LAB - MICRO GENERAL ORDERABL ES Performing Organization Address City/[facility] Code Phon e Number [address] [address] [facility] [address] [place], [place] [address] [address] [facility] MICROBIOLOGY (ABNORMAL) Urine Microscopic (06/08/2012 12:35 PM MILL OPERATOR) [facility] Method Time Signature WBC Urine 50-100 (A) 0 - 2 [facility] RBC Urine O - 2 0 - 2 [place] /[facility] Bacteria Urine Many (A) NEG /HPF [facility] Mucous Urine Present (A) NEG /LPF [facility] Specimen Anatomical Collection Method Collection Time Receive d Time (Source) Location / / Volume Laterality 06/08/2012 12:35 06/08/2012 PM MILL OPERATOR 12:40 PM MILL OPERATOR Janis Cuellar MD LAB - URINE ORDERABLES Performing Organization Address City/[facility]/ZIP Code Phon e Number [facility] [address] [place], [place] [address] [address] [facility] (ABNORMAL) UA reflex to Microscopic (06/08/2012 12:35 PM MILL OPERATOR) Patholo gist Method Time Signature Color Urine Yellow [facility] Appearance Urine Cloudy [facility] Glucose Urine Negative NEG mg/dL [facility] Bilirubin Urine Negative NEG [facility] Ketones Urine Negative NEG mg/dL [facility] Specific [place] 1.020 1.003 - [place] Urine 1.035 [facility] Blood Urine Negative NEG [facility] pH Urine 6.0 5.0 - 7.0 [place] pH [facility] Protein Albumin Negative NEG mg/dL [place] Urine [facility] Urobilinogen 0.2 0.2 - 1.0 [place] Urine EU/dL [facility] Nitrite Urine Positive (A) NEG [facility] Leukocyte Small (A) NEG [place] Esterase Urine [facility] Source Midstream [facility] LAB Specimen Anatomical Collection Method Collection Time Receive d Time (Source) Location / / Volume Laterality Urine specimen 06/08/2012 12:35 3 (specimen) PM MILL OPERATOR 12:40 PM MILL OPERATOR Janis Cuellar MD LAB - URINE ORDERABLES Performing Organization Address City/State/ZIP Code Phon e Number [facility] [address] [place], [place] [address] [address] [facility] documented in this encounter Visit Diagnoses Diagnosis UTI (urinary tract infection) - Primary Urinary tract infection, site not specif ied Need for Tdap vaccination Need for prophylactic vaccination with c ombined iaydvergld-ysqxlpl-jyxgfntqj (DTP) vaccine Need for prophylactic vaccination and in oculation against influenza documented in this encounter Care Teams Slot Supervisor Relationship Specialty Start Date End Date Janis Cuellar MD PCP - General 07/08/01 10/12/19 [address] [place] [address] documented as of this encounter
--- OUTSIDE RECORDS SUMMARY | 2022-04-25 22:25 | XMS_ITS | Encounter Summary ---
:1985 Author Organization [facility] Address [address] [place] [address] Care Team Providers Name Role Phone Janis Cuellar MD Primary Care Provider Encounter Details Date Type Department Care Team Description 03/03/2010 Historic Notes INTERFACED REPORT Interface, Transcript on, Social History Tobacco Use Types Packs/Day Years Used Date Smoking Tobacco: Never Alcohol Use Standard Drinks/Week Comments Yes 0 (1 standard drink = 0.6 oz pure alcoho l) casual Sex Assigned at Date Recorded Not on file documented as of this encounter Progress Notes Interface, Wire Coating Operator Metal - 08/07/2010 6:10 PM CDT Patient Status - Diagnosis/Procedure anemia -- flank pain Discharge Planning - Discharge From: [facility] - Patient Care Unit: [facility] - U Medications and Prescriptions - Medications and Prescriptions given to patient Prescriptions Special Care Needs and Instructions - Diet Instructions: as tolerated - Activity as tolerated Instructions: - Report temp if 100 degrees F greater than: - Symptoms/Problems to 1. any of the same symptoms that brought you look for at home- call the physician about: - Who patient should primary call: Follow Up Care - Physician/clinician primary name: - When to see 1 week physician/clinician: - Physician/clinician Dr Sandy name: - - When to see 2 week physician/clinician: MICK Hare)[Signed 14:07] Authored: Patient Status, Discharge Planning, Medications and Prescriptions, Special Care Needs and Instructions, Follow Up Care documented in this encounter Plan of Treatment Not on filedocumented as of this encounter Visit Diagnoses Not on filedocumented in this encounter Care Teams Pipe Assembly Worker Relationship Specialty Start Date End Date Janis Cuellar MD PCP - General 07/08/01 10/12/19 [address] [place] [address] documented as of this encounter
--- OUTSIDE RECORDS SUMMARY | 2022-04-25 22:25 | XMS_ITS | Encounter Summary ---
:1985 Author Organization [facility] Address [address] [place] [address] Care Team Providers Name Role Phone Janis Cuellar MD Primary Care Provider Reason for Visit Reason Comments Fatigue Patient states she is always tired, last two weeks have been extreme. Patient states that her eyes were a pale yellow Wed Pre Visit Planning - Done PVC not needed Encounter Details Date Type Department Care Team Description 07/21/2012 Office Visit [facility] Janis Cuellar MD IRON DEFIC ANEMIA NOS (Primary Dx); Clinic [place] [address] Fatigue; [address] [place], [place] [address] [address] [place], [place] [phone] (Wo rk) [address] [phone] Social History Tobacco Use Types Packs/Day Years Used Date Smoking Tobacco: Never Smokeless Tobacco: Never Alcohol Use Standard Drinks/Week Comments Yes 0 (1 standard drink = 0.6 oz pure alcoho l) casual Sex Assigned at Date Recorded Not on file documented as of this encounter Last Filed Vital Signs Vital Sign Reading Time Taken Comments Blood Pressure 100/65 07/21/2012 8:40 AM EDUCATIONAL THERAPIST Pulse 114 07/21/2012 8:40 AM EDUCATIONAL THERAPIST Temperature 36.5 ??C (97.7 ??F) 07/21/2012 8:40 AM EDUCATIONAL THERAPIST Respiratory Rate - - Oxygen Saturation 100% 07/21/2012 8:40 AM EDUCATIONAL THERAPIST Inhaled Oxygen Concentration - - Weight 56.1 kg (123 lb 9.6 oz) 07/21/2012 8:40 AM EDUCATIONAL THERAPIST Height 172.7 cm (5' 8) 07/21/2012 8:40 AM EDUCATIONAL THERAPIST Body Mass Index 18.79 07/21/2012 8:40 AM EDUCATIONAL THERAPIST documented in this encounter Progress Notes Janis Cuellar MD - 07/21/2012 8:42 AM CST Subjective: Estefania Mckeon is a 27 year old female who presents with complaints of fatigue, lack of energy, tachycardia. She feels this is like previous anemia. She had last hgb check in 04/03, was 6.0 and received 1 unit blood. She was without insurance a long time, has not seen hematology in almost 4 years. She notes some weight loss, feeling need to sleep 8-9 hours at least. She has no change in menses. 2 days ago she and her mother thought the sclera were yellow. Patient Active Problem List Diagnosis ??? IRON DEFIC ANEMIA NOS ??? CARDIOVASCULAR SCREENING; LDL GOAL LESS THAN 160 ??? ASCUS on Pap smear ??? Bicornuate uterus Current Outpatient Prescriptions Medication Sig ??? Ibuprofen (ADVIL PO) Take by mouth. Prn for pain History Substance Use Topics ??? Smoking status: Never Smoker ??? Smokeless tobacco: Never Used ??? Alcohol Use: Yes casual ROS: no fever, chills, abdominal pain, some weight loss, no bowel changes, cough, mild dyspnea on exertion, no chest pain. Objective: Patient alert in NAD BP 100/65 Pulse 114 Temp(Src) 97.7 ??F (36.5 ??C) (Oral) Ht 5' 8 (1.727 m) Wt 123 lb 9.6 oz(56.065 kg) BMI 18.79 kg/m2 SpO2 100% Pale No scleral icterus No nodes or thyromegaly Lungs: clear CV: tachycardic S1, S2 without murmur, S3 or S4. Assessment/Plan: 1. Fatigue: probably related to iron deficiency again. Check some other labs to be sure not other cause or factors. Reassured no icterus, check liver tests. ATIONAL THERAPIST documented in this encounter Nursing Notes 07/21/2012 8:30 AM CST >> [facility] 2012 8[facility]41 AM Patient presents with: Fatigue - Patient states she is always tired, last two weeks have been extreme. Patient states thather eyes were a pale yellow Wed Pre Visit Planning - Done - PVC not needed Initial BP 100/65 Pulse 114 Temp(Src) 97.7 ??F (36.5 ??C) (Oral) Ht 5' 8 (1.727 m) Wt 123 lb 9.6 oz (56.065 kg) BMI 18.79 kg/m2 SpO2 100% Estimated Body mass index is 18.79 kg/(m^2) as calculated from the following: Height as of this encounter: 5' 8(1.727 m). Weight as of this encounter: 123 lb 9.6 oz(56.065 kg).. BP completed using cuff size regular Alessia Vargas/RENAN documented in this encounter Plan of Treatment Not on filedocumented as of this encounter Visit Diagnoses Diagnosis IRON DEFIC ANEMIA NOS - Primary Iron deficiency anemia, unspecified Fatigue Other malaise and fatigue Jaundice Jaundice, unspecified, not of documented in this encounter Care Teams Customer Project Manager Relationship Specialty Start Date End Date Janis Cuellar MD PCP - General 07/08/01 10/12/19 [address] [facility] [address] [place] [address] documented as of this encounter
--- OUTSIDE RECORDS SUMMARY | 2022-04-25 22:25 | XMS_ITS | Encounter Summary ---
:1985 Author Organization [place] Address [address] [place] [address] Care Team Providers Name Role Phone Janis Cuellar MD Primary Care Provider Encounter Details Date Type Department Care Team Description 03/02/2010 Historic Results [facility] Jayden Lewis , [facility] [address] [place], [place] [address] (Wo rk) Social History [...] Name Priority Date/Time Associated Diagnosis Comme nts BASIC METABOLIC Routine 03/02/2010 6:00 AM Result s for this PANEL CDT procedure are i n the results section. CBC WITH PLATELETS Routine 03/02/2010 6:00 AM Res ults for this CDT procedure are i n the results section. documented in this encounter Results (ABNORMAL) CBC with platelets (03/02/2010 6:00 AM CDT) Analysis Performed At Patho logist Time Signature MCV 66 (L) 78 - 100 [facility] fl MCH 19.2 (L) 26.5 - [facility] 33.0 pg MCHC 29.2 (L) 31.5 - [facility] 36.5 g/dL RDW 25.1 (H) 10.0 - [facility] 15.0 % WBC 7.1 4.0 - 11.0 [facility] 10e9/L RBC Count 4.64 3.8 - 5.2 [facility] 10e12/L Hemoglobin 8.9 (L) 11.7 - [facility] 15.7 g/dL Hematocrit 30.5 (L) 35.0 - [facility] 47.0 % Platelet Count 327 150 - 450 [facility] 10e9/L Specimen (Source) Anatomical Collection Method Collection Time Re ceived Time Location / / Volume Laterality 03/02/2010 6:00 AM 0 CDT Jayden Lewis MD LAB - BLOOD ORDERABLES Performing Organization Address City/State/ZIP Code Phon e Number [facility] (ABNORMAL) Basic metabolic panel (03/02/2010 6:00 AM CDT) P athologist Signature Sodium 139 133 - 144 [facility] mmol/L Potassium 4.1 3.4 - 5.3 [facility] mmol/L Chloride 107 94 - 109 [facility] mmol/L Carbon Dioxide 23 20 - 32 [facility] mmol/L Glucose 101 (H) 60 - 99 [facility] mg/dL Urea Nitrogen 9 5 - 24 [facility] mg/dL Creatinine 0.81 0.52 - [facility] 1.04 mg/dL Comment: New IDMS-traceable calibration beginning 09/21/07 GFR Estimate 87 >60 mL/min/1.7m2 [facility] GFR Estimate If Black >90 >60 mL/min/1.7m2 [facility] Calcium 9.0 8.5 - 10.4 mg/dL [facility] Anion Gap 9 6 - 17 mmol/L [facility] Specimen (Source) Anatomical Collection Method Collection Time Re ceived Time Location / / Volume Laterality 03/02/2010 6:00 AM 0 CDT Jayden Lewis MD LAB - BLOOD ORDERABLES Performing Organization Address City/State/ZIP Code Phon e Number [facility] documented in this encounter Visit Diagnoses Not on filedocumented in this encounter Care Teams Telemarketing Supervisor Relationship Specialty Start Date End Date Janis Cuellar MD PCP - General 07/08/01 10/12/19 [address] [place] [address] documented as of this encounter
--- OUTSIDE RECORDS SUMMARY | 2022-04-25 22:25 | XMS_ITS | Encounter Summary ---
:1985 Author Organization [place] Address [address] [place] [address] Care Team Providers Name Role Phone Janis Cuellar MD Primary Care Provider Reason for Visit Reason Onset Date Comments Call To Schedule Appointment 03/03/2012 REPEAT PAP Encounter Details Date Type Department Care Team Description 03/03/2012 Telephone [facility] Eri Harvey Call To Schedule [facility] MD Arslan Appointment (REPEAT [facility] PAP) [id number] [place] [address] [place], [place] [phone] (Wo rk) [address] [phone] Social History Tobacco Use Types Packs/Day Years Used Date Smoking Tobacco: Never Smokeless Tobacco: Never Alcohol Use Standard Drinks/Week Comments Yes 0 (1 standard drink = 0.6 oz pure alcoho l) casual Sex Assigned at Date Recorded Not on file documented as of this encounter Miscellaneous Notes Telephone Encounter - Lenore Gregory - 06/13/2013 9:47 AM CST Episode resolved. Lenore Gregory RN HMALLOW RUNNER Telephone Encounter - Eri [facility] MD - 06/12/2013 12:32 PM MARSHMALLOW RUNNER Yes, may resolve pap tracking. Thank you. HMALLOW RUNNER Telephone Encounter - Nanda Story - 06/12/2013 11:[address] [facility], pt has failed to f/u on her pap smear after numerous attempt to reach her. Okay to resolve pap tracking due to lost to f/u? Please advise. Thanks. Nanda HMALLOW RUNNER Telephone Encounter - Kristal Velasquez - 08/18/2012 12:28 PM CDT Letter sent for Estefania to return our call and schedule a pap due 01/2012 . Telephone Encounter - Kristal Velasquez - 08/18/2012 12:27 PM CDT Estefania no showed for her 08/02/12 appointment. Telephone Encounter - Kristal Velasquez - 07/11/2012 1:34 PM CST Estefania rescheduled her pap for 08/02/12 at 1:00. HMALLOW RUNNER Telephone Encounter - Kristal Velasquez - 06/08/2012 11:27 AM CST Estefania Mckeon is scheduled for a pap on 07/04/12 at 1:[address] [facility] HMALLOW RUNNER Telephone Encounter - Kristal Velasquez - 06/01/2012 2:46 PM CST Left message for Estefania to return call to schedule a repeat pap due 01/2012. HMALLOW RUNNER Telephone Encounter - Tammy Yin - 03/22/2012 11:54 AM CDT Rec'd signed cert., card, forwarded copy to [facility] [employer]. Telephone Encounter - Tammy Yin - 03/20/2012 9:52 AM CDT Certified letter mailed by [facility]. Telephone Encounter - Kristal Velasquez - 03/17/2012 12:32 PM CDT Certified letter sent to patient for repeat pap due 02/18/12. Telephone Encounter - Kristal Velasquez - 03/03/2012 1:13 PM CDT Repeat pap due 02/18/12 Reminder letter sent to [facility] to make an appointment for pap. documented in this encounter Plan of Treatment Not on filedocumented as of this encounter Visit Diagnoses Diagnosis ASCUS on Pap smear - Primary Papanicolaou smear of cervix with atypic al squamous cells of undetermined significance (ASC-US) documented in this encounter Care Teams Storage Administrator Relationship Specialty Start Date End Date Janis Cuellar MD PCP - General 07/08/01 10/12/19 Jamie GAMBINO [facility] [address] [place], [place] [address] documented as of this encounter
--- OUTSIDE RECORDS SUMMARY | 2022-04-25 22:25 | XMS_ITS | Encounter Summary ---
:1985 Author Organization [place] Address [address] [place] [address] Care Team Providers Name Role Phone Janis Cuellar MD Primary Care Provider Encounter Details Date Type Department Care Team Description 07/22/2012 Orders Only [facility] Janis Cuellar MD IRON DEFIC ANEMIA [facility] [address] (Primar y Dx) [place] [address] [place] [id number] [phone] Social History Tobacco Use Types Packs/Day Years [...] unspecified documented in this encounter Care Teams System Analyst Relationship Specialty Start Date End Date Janis Cuellar MD PCP - General 07/08/01 10/12/19 [address] [place], [place] [address] documented as of this encounter
--- OUTSIDE RECORDS SUMMARY | 2022-04-25 22:25 | XMS_ITS | Encounter Summary ---
:1985 Author Organization [facility] Address [address] [place] [address] Care Team Providers Name Role Phone Janis Cuellar MD Primary Care Provider Delia Mcdonald MD Primary Care Provider [phone] Encounter Details Date Type Department Care Team Description 10/01/2010 [facility] Janis Cuellar MD [place] [facility] [place] [address] Note, D/C Summary [address] [place] [address] [place], [place] [phone] (Wo rk) [address] [phone] Social History Tobacco Use Types Packs/Day Years Used Date Smoking Tobacco: Never Smokeless Tobacco: Never Alcohol Use Standard Drinks/Week Comments Yes 0 (1 standard drink = 0.6 oz pure alcoho l) casual Sex Assigned at Date Recorded Not on file documented as of this encounter Plan of Treatment Not on filedocumented as of this encounter Visit Diagnoses Diagnosis [place] [facility] Provider Note, D/C Summar y - Primary documented in this encounter Care Teams Assistant Winemaker Relationship Specialty Start Date End Date Janis Cuellar MD PCP - General 07/08/01 10/12/19 [address] [place] [address] Delia Mcdonald MD PCP - General Family Practice 10/13/[address] [place], [place] [address]RANGEL Lock [address] documented as of this encounter
--- OUTSIDE RECORDS SUMMARY | 2022-04-25 22:26 | XMS_ITS | Encounter Summary ---
:1985 Author Organization [place] Address [address] [place] [address] Care Team Providers Name Role Phone Janis Cuellar MD Primary Care Provider Encounter Details Date Type Department Care Team Description 08/01/2008 Orders Only [facility] IRO N DEFIC ANEMIA NOS [facility] [address] [place] [address] Social History Tobacco Use Types Packs/Day Years Used Date Smoking Tobacco: Never Alcohol Use Standard Drinks/Week Comments Yes 0 (1 standard drink = 0.6 oz pure alcoho l) casual Sex Assigned at Date Recorded Not on file documented as of this encounter Plan of Treatment Not on filedocumented as of this encounter Procedures Procedure Name Priority Date/Time Associated Comments Diagnosis HCL TRANSFERRIN & Routine 08/01/2008 1:43 PM IRON DEFIC ANEMIA Results for this TIBC CDT NOS procedure are i n the results section. ZZCL AFF RETICULOCYTE Routine 08/01/2008 1:43 PM IRON DEFIC AN EMIA Results for this COUNT CDT NOS procedure are i n the results section. HCL HEMOGLOBIN NONLAB Routine 08/01/2008 1:43 PM IRON DEFIC AN EMIA Results for this CDT NOS procedure are i n the results section. HCL IRON Routine 08/01/2008 1:43 PM IRON DEFIC ANEMIA Resu lts for this CDT NOS procedure are i n the results section. documented in this encounter Results RETICULOCYTE COUNT (08/01/2008 1:43 PM CDT) [facility] Method Time Signature % Retic 1.2 0.5 - 2.0 [facility] Absolute 53.1 25 - 95 [place] Retic 10e9/L [facility] Method Automated [place] Method [facility] Specimen Anatomical Collection Method Collection Time Receive d Time (Source) Location / / Volume Laterality 08/01/2008 1:43 PM 9 1:48 CDT PM CDT Janis Cuellar MD LABORATORY Performing Organization Address City/State/ZIP Code Phon e Number M [facility] [address] [place] [place], [place] [address] [facility] LAB (ABNORMAL) TRANSFERRIN & TIBC (08/01/2008 1:43 PM CDT) [facility] gist Method Time Signature Transferrin 453 (H) 210 - 360 [facility] mg/dL [facility] Transferrin-Bind 675 (H) 315 - 540 [facility] ing Capacity ug/dL [facility] Iron Saturation 1 (L) 20 - 55 % [facility] Specimen Anatomical Collection Method Collection Time Receive d Time (Source) Location / / Volume Laterality 08/01/2008 1:43 PM 9 1:48 CDT PM CDT Janis Cuellar MD LABORATORY Performing Organization Address City/State/ZIP Code Phon e Number [facility] [address] [place] [address] [facility]S (ABNORMAL) IRON (08/01/2008 1:43 PM CDT) P athologist Signature Iron 9 (L) 35 - 180 [place] ug/dL CLINIC LAB Specimen Anatomical Collection Method Collection Time Receive d Time (Source) Location / / Volume Laterality 08/01/2008 1:43 PM 9 1:48 CDT PM CDT Janis Cuellar MD LABORATORY Performing Organization Address City/State/ZIP Code Phon e Number [facility] [address] [place] [address] [facility] (ABNORMAL) HGB (08/01/2008 1:43 PM CDT) P athologist Signature Hemoglobin 7.5 (L) 11.7 - 15.7 [facility] g/dL [facility] Comment: Results confirmed by repeat test MICROCYTOSIS PRESENT, HYPOCHROMASIA PRES ENT, MODERATE STOMATOCYTES PRESENT. Specimen Anatomical Collection Method Collection Time Receive d Time (Source) Location / / Volume Laterality 08/01/2008 1:43 PM 9 1:48 CDT PM CDT Janis Cuellar MD LABORATORY Performing Organization Address City/State/ZIP Code Phon e Number [facility] [address] [place], [place] [address] [address] [facility] documented in this encounter Visit Diagnoses Diagnosis IRON DEFIC ANEMIA NOS Iron deficiency anemia, unspecified documented in this encounter Care Teams Head Operator Sulfide Relationship Specialty Start Date End Date Janis Cuellar MD PCP - General 07/08/01 10/12/19 [address] [place] [address] documented as of this encounter
--- OUTSIDE RECORDS SUMMARY | 2022-04-25 22:26 | XMS_ITS | Encounter Summary ---
:1985 Author Organization [facility] Address [address] [place] [address] Care Team Providers Name Role Phone Janis Cuellar MD Primary Care Provider Reason for Visit Reason Comments RECHECK Encounter Details Date Type Department Care Team Description 05/01/2008 [facility] RECHECK Visit [place] [address] [place] [address] Social History Tobacco Use Types Packs/Day Years Used Date Smoking Tobacco: Never Alcohol Use Standard Drinks/Week Comments Yes 0 (1 standard drink = 0.6 oz pure alcoho l) casual Sex Assigned at Date Recorded Not on file documented as of this encounter Progress Notes Jermaine De Leon - 05/03/2008 4:12 PM PAYROLL ACCOUNTING CLERK Addended by: JERMAINE DE LEON on: 05/03/2008 4:12:11 PM Modules accepted: Orders OLL ACCOUNTING CLERK Jermaine De Leon - 05/01/2008 11:46 AM PAYROLL ACCOUNTING CLERK Addended by: JERMAINE DE LEON on: 05/01/2008 11:46:10 AM Modules accepted: Orders OLL ACCOUNTING CLERK documented in this encounter Nursing Notes 05/01/2008 11:00 AM CST >> KARELY STORY TueMay 01, 2008 11:20 AM Nurse only appt. Pt is here to have a JUANITO after finishing her antibiotics for a UTI. Sesar Story RN documented in this encounter Plan of Treatment Not on filedocumented as of this encounter Procedures Procedure Name Priority Date/Time Associated Comments Diagnosis HCL CULTURE, URINE Routine 05/01/2008 11:15 Dysuria Resul ts for this (MISYS) AM PAYROLL ACCOUNTING CLERK procedure are i n the results section. HCL URINALYSIS WITH Routine 05/01/2008 11:15 Dysuria Resu lts for this MICROSCOPIC AM PAYROLL ACCOUNTING CLERK procedure are i n the results section. documented in this encounter Results CULTURE, URINE (MISYS) (05/01/2008 11:15 AM PAYROLL ACCOUNTING CLERK) [facility] gist Method Time Signature Specimen Midstream [place] Description Urine [facility] Culture Micro 10 to 50,000 colonies/mL Mul tiple species present, probable perineal [place] contamination. [facility] Report status FINAL [place] 05/03/2008 [facility] Specimen Anatomical Collection Method Collection Time Receive d Time (Source) Location / / Volume Laterality 05/01/2008 11:15 05/01/2008 AM PAYROLL ACCOUNTING CLERK 11:20 AM PAYROLL ACCOUNTING CLERK Jermaine De Leon MD LABORATORY Performing Organization Address City/State/ZIP Code Phon e Number M [facility] [address] [place] [address] [phone] HOSPITAL [facility] (ABNORMAL) UA WITH MICRO (05/01/2008 11:15 AM PAYROLL ACCOUNTING CLERK) Component Value Ref Test Analysis Performed At [facility] Range Method Time Signature Color Urine Yellow [facility] Appearance Urine Slightly Cloudy [place] [facility] Glucose Urine Negative NEG [place] mg/dL [facility] Bilirubin Urine Negative NEG [facility] Ketones Urine Negative NEG [place] mg/dL [facility] Specific [place] 1.020 1.003 - [place] Urine 1.035 [facility] pH Urine 7.0 5.0 - [place] 7.0 pH [facility] Protein Albumin 30 (A) NEG [place] Urine mg/dL [facility] Urobilinogen 0.2 0.2 - [place] Urine 1.0 [facility] EU/dL CLINIC LAB Nitrite Urine Negative NEG [facility] Blood Urine Negative NEG [facility] Leukocyte Small (A) NEG [place] Esterase Urine [facility] Source [facility] WBC Urine 10-25 (A) 0 - 2 [facility] RBC Urine O - 2 0 - 2 [facility] Mucous Urine Present (A) NEG /LPF [facility] Specimen Anatomical Collection Method Collection Time Receive d Time (Source) Location / / Volume Laterality 05/01/2008 11:15 05/01/2008 AM PAYROLL ACCOUNTING CLERK 11:20 AM PAYROLL ACCOUNTING CLERK Jermaine De Leon MD LABORATORY Performing Organization Address City/State/ZIP Code Phon e Number [facility] [address] [place], [place] [address] [address] [facility] documented in this encounter Visit Diagnoses Diagnosis Dysuria - Primary documented in this encounter Care Teams Resident Manager Relationship Specialty Start Date End Date Janis Cuellar MD PCP - General 07/08/01 10/12/19 [address] [place] [address] documented as of this encounter
--- OUTSIDE RECORDS SUMMARY | 2022-04-25 22:26 | XMS_ITS | Encounter Summary ---
:1985 Author Organization [place] Address [address] [place] [address] Care Team Providers Name Role Phone Janis Cuellar MD Primary Care Provider Encounter Details Date Type Department Care Team Description 05/19/2009 Historic Notes INTERFACED REPORT Brant Watson MD [address] [place], [place] [address] (Wo rk) Social History Tobacco Use Types Packs/Day Years Used Date Smoking Tobacco: Never Alcohol Use Standard Drinks/Week Comments Yes 0 (1 standard drink = 0.6 oz pure alcoho l) casual Sex Assigned at Date Recorded Not on file documented as of this encounter Progress Notes Brant Watson - 08/08/2010 1:12 PM CDT Interval History - Interval History: Overall feeling better but still pain present in R side 5/10 with exacerbations. She descriobes pain elicited with movement. NO fever. Dysuria. Better apetite. Review of Systems - Constitutional: Negative - Musculoskeletal R lumbar pain w/movement Comments: - Respiratory: Negative - Cardiovascular: Negative - Heme Comments: chronic anemia - GI Comments: chronic constipation - Comments: Pain R lumbar fossa, dysuria Physical Exam - General: Comfort in bed. NAD - Eyes: Clear sclera - Nose/Mouth/Throat: pale mucous membrane - Lungs: CTA - Cardiovascular: S1S2. RRR. No murmur heard. - Abdominal/Rectal: Soft. No masses, pain, guarding or rebound - : CVAT + R side. - Lymphatics: No edema - Musculoskeletal: Pain on palpation r paraspinal muscles. Labs Laboratory 08:00 MCV 68 MCH 19.4 MCHC 28.7 RDW 28.8 WBC Count 4.6 RBC Count 4.65 Hemoglobin * 9.0 Hematocrit* 31.4 Platelet Count 333 Vital Signs/Labs/Imaging/Culture Review - Vital Signs: Vital Signs reviewed past 24 hours. - Lab Results: All lab results reviewed past 24 hours. - Imaging Results: All imaging results reviewed past 24 hours. - Culture Results: All culture results reviewed past 24 hours. VS 1. Vital Signs Adult Med Surg 07:20 - Temperature degrees 36.3 C - Temperature degrees 97.4 F - Temperature Site Oral - Heart Rate beats/min 70 - Heart Rate Method Noninvasive blood pressure monitor - BP Cuff Systolic BP 95 mmHg - BP Cuff Diastolic BP 64 mmHg - BP Cuff Mean BP mmHg 74 - BP Site Arm, upper right - BP Mode Electronic - BP Cuff Size Adult - Resp, Pulse Ox Resp 18 Rate - Resp, Pulse Ox Pulse 98 Oximetry SpO2 % - Resp, Pulse Ox Room air Patient on Assessment and Plan - Assessment/Plan: 23 yo female with chronic anemia admitted with severe anemia and UTI. 1- Anemia unclear etiology. Iron deff w/o sginifficant menses (menstruation every other month normal) and not known GI loses. Out patient studies never concluded per patient report. Hgb 9.0 after transfusion. Patient states she failed oral treatment in the past, she is taking Fe supplement since 05/15. I will re check reticulocytes. She will need IV Fe if really absorption is nule. 2- Complicated UTI with E Coli in UC and bilateral stones. On Levof. Urology consultation done, THKS. Plan is to do lithothripsia as outpatient. Bacteria sensitive to Ciproflox. I am planning discharge patient on Cipro. 3- Renal Colic r sided 2/2 nephrolitihiasis. Pain control. 4- Chronic constipation. Stool softener. Continue in patient. BRANT Godinez)[Signed 16:58] Authored: Interval History, Review of Systems, Physical Exam, Labs, Vital Signs/Labs/Imaging/CultureReview, VS, Assessment and Plan Entered: Interval History, Review of Systems, Physical Exam, Vital Signs/Labs/Imaging/Culture Review, VS, Assessment and Plan documented in this encounter Plan of Treatment Not on filedocumented as of this encounter Visit Diagnoses Not on filedocumented in this encounter Care Teams Waistline Joiner Overlock Relationship Specialty Start Date End Date Janis Cuellar MD PCP - General 07/08/01 10/12/19 [address] [address] documented as of this encounter
--- OUTSIDE RECORDS SUMMARY | 2022-04-25 22:26 | XMS_ITS | Encounter Summary ---
:1985 Author Organization [place] Address [address] [place] [address] Care Team Providers Name Role Phone Janis Cuellar MD Primary Care Provider Encounter Details Date Type Department Care Team Description 05/15/2009 Letter-[facility] Omar Baumann MD Hospital Results [address] [place], [place] [address] (Wo rk) Social History Tobacco Use Types Packs/Day Years Used Date Smoking Tobacco: Never Alcohol Use Standard Drinks/Week Comments Yes 0 (1 standard drink = 0.6 oz pure alcoho l) casual Sex Assigned at Date Recorded Not on file documented as of this encounter Progress Notes Omar Baumann - 05/20/2009 3:26 PM SOAP SLABBER FINAL [facility] Admission Status; Secondary Review Determination Patient Name: Estefania Mckeon Patient MR#:[id number] Admit Date: 05/15/2009 Primary Insurance: Self pay Date(s) Reviewed: 05/15/2009 Attending Physician: Jayden Spencer MD Physician Advisor: Omar Baumann MD Under the authority of the Care Management Committee, the utilization review process indicated a secondary review on the above patient. The review outcome is based on review of the medical records, discussions with staff, and applying clinical experience noted on the date of the review. (X)Inpatient Status Appropriate - This patient's medical care is consistent with medical managementfor inpatient care and reasonable inpatient medical practice. ( )Observation Status Appropriate - This patient does not meet hospital inpatient criteria and is placed in observation status. If this patient's primary payer is Medicare and was admitted as an inpatient, Condition Code 44 should be used and patient status changed to observation. ( )Admission Status NOT Appropriate - This patient's medical care is not consistent with medical management for Inpatient or Observation Status. RATIONALE FOR DETERMINATION A 22-year-old woman was brought to the emergency room complaining of lightheadedness, right flank pain and generalized weakness. Further evaluation revealed that the patient's hemoglobin was 6.4. There was concern also for her urinary tract infection and possible pyelonephritis in the setting of kidney stone and urinary obstruction. The patient was started on blood transfusion as well as intravenousantibiotic and intravenous antiemetic. The care of this young patient with urinary obstruction and pyelonephritis as well as severe anemia requiring blood transfusion is appropriate for further evaluation and treatment under inpatient care as ordered by Dr. Spencer. The information on this document is developed by the utilization review team in order for the business office to ensure compliance. This only denotes the appropriateness of proper admission status anddoes not reflect the quality of care rendered. The definitions of Inpatient Status and Observation Status used in making the determination above are those provided in the CMS Coverage Manual, Chapter 1 and Chapter 6, section 70.4. Sincerely, Electronically signed on 05/20/2009 15:25 by OMAR BAUMANN MD MT: [id number] Name: ESTEFANIA MCKEON Account: [id number] : 1985 Document: [id number] SLABBER documented in this encounter Plan of Treatment Not on filedocumented as of this encounter Visit Diagnoses Not on filedocumented in this encounter Care Teams Ultrasonic Hand Solderer Relationship Specialty Start Date End Date Janis Cuellar MD PCP - General 07/08/01 10/12/19 [address] [place] [address] documented as of this encounter
--- OUTSIDE RECORDS SUMMARY | 2022-04-25 22:26 | XMS_ITS | Encounter Summary ---
:1985 Author Organization [facility] Address [address] [place] [address] Care Team Providers Name Role Phone Janis Cuellar MD Primary Care Provider Encounter Details Date Type Department Care Team Description 05/18/2009 Historic Notes INTERFACED REPORT Brant Watson MD [address] [place], [place] [address] (Wo rk) Social History Tobacco Use Types Packs/Day Years Used Date Smoking Tobacco: Never Alcohol Use Standard Drinks/Week Comments Yes 0 (1 standard drink = 0.6 oz pure alcoho l) casual Sex Assigned at Date Recorded Not on file documented as of this encounter Progress Notes Brant Watson - 08/08/2010 1:16 PM CDT Interval History - Interval History: Feels better but still has R sided pain in lumbar fossa 09/29. NO other symptoms currently Review of Systems - Constitutional: Negative - Respiratory: Negative - Cardiovascular: Negative - Heme Comments: chronic anemia - GI Comments: chronic constipation - Comments: Pain R lumbar fossa Physical Exam - General: Comfort in bed. NAD - Eyes: Clear sclera - Lungs: CTA - Cardiovascular: S1S2. RRR. No murmur heard. - Abdominal/Rectal: Soft. No masses, pain, guarding or rebound - : CVAT + R side. - Lymphatics: No edema Labs Laboratory 07:00 Sodium Level * 139 Potassium Level * 4.1 Chloride Level * 106 CO2 Total * 25 Glucose Level * 98 Urea Nitrogen Level* 8 Creatinine 0.63 GFR estimated >90 GFR estimated if >90 -Solomon Islander Calcium Level* 9.3 Anion Gap 9 06:50 Hemoglobin * 9.1 Vital Signs/Labs/Imaging/Culture Review - Vital Signs: Vital Signs reviewed past 24 hours. - Lab Results: All lab results reviewed past 24 hours. - Imaging Results: All imaging results reviewed past 24 hours. - Imaging Comments: nephrolithiasis - Culture Results: All culture results reviewed past 24 hours. - Culture Comments: E Coli in urine VS 1. Vital Signs Adult Med Surg 07:11 - Temperature degrees 36.2 C - Temperature degrees 97.2 F - Temperature Site Oral - Heart Rate beats/min 73 - BP Cuff Systolic BP 98 mmHg - BP Cuff Diastolic BP 61 mmHg - BP Cuff Mean BP mmHg 73 - Resp, Pulse Ox Resp 18 Rate - Resp, Pulse Ox Pulse 99 Oximetry SpO2 % - Resp, Pulse Ox Room air Patient on - BP Lying Systolic 98 mmHg - BP Lying Diastolic 61 mmHg - BP Lying HR bpm 73 - BP Sitting Systolic 103 mmHg - BP Sitting Diastolic 62 mmHg - BP Sitting HR bpm 86 - BP Standing Systolic 99 mmHg - BP Standing 78 Diastolic mmHg - BP Standing HR bpm 113 - BP Site Arm, upper right - BP Mode Electronic Medications Pharmacy - Anti-infectives ?? Levofloxacin -;for LEVAQUIN 500 mg tablet(s) By Mouth Every Day Administer at least 2 hrs before or 4 hrs after aluminum, calcium, iron, zinc or magnesium containing products., , Active Assessment and Plan - Assessment/Plan: 23 yo female with chronic anemia admitted with severe anemia and UTI. 1- Anemia unclear etiology. Iron deff w/o sginifficant menses (menstruation efvery other month normal) and not known GI loses. Out patient studies never concluded per patient report. Hgb 9.1 after transfusion. 2- Complicated UTI with E Coli in UC and bilateral stones. ON Levof. Will need Urology follow up. 3- Renal Colic r sided 2/2 nephrolitihiasis. Pain control. 4- Chronic constipation. Stool softener. Continue in patient. BRANT Godinez)[Signed 11:31] Authored: Interval History, Review of Systems, Physical Exam, Labs, Vital Signs/Labs/Imaging/CultureReview, VS, Medications, Assessment and Plan documented in this encounter Plan of Treatment Not on filedocumented as of this encounter Visit Diagnoses Not on filedocumented in this encounter Care Teams Baffle Mounter Relationship Specialty Start Date End Date Janis Cuellar MD PCP - General 07/08/01 10/12/19 [address] [address] documented as of this encounter
--- OUTSIDE RECORDS SUMMARY | 2022-04-25 22:26 | XMS_ITS | Encounter Summary ---
:1985 Author Organization [facility] Address [address] [place] [address] Care Team Providers Name Role Phone Janis Cuellar MD Primary Care Provider Encounter Details Date Type Department Care Team Description 03/01/2010 Results Only [facility] Nakul Westfall MD Hospital Results [facility] [address] [place] [address] (Wo rk) Social History Tobacco Use Types [...] Priority Date/Time Associated Diagnosis Comme nts CT SCAN Routine 03/01/2010 1:54 AM Results f or this ABDOMEN/PELVIS CDT procedure are in the results section. documented in this encounter Results CT SCAN ABDOMEN/PELVIS (03/01/2010 1:54 AM CDT) Anatomical Region Laterality Modality Other Specimen (Source) Anatomical Collection Method Collection Time Re ceived Time Location / / Volume Laterality 03/01/2010 1:54 AM CDT Impressions 03/01/2010 12:[address] ABDOMEN/PELVIS WITHOUT CONTRAST Octob er 2009 1:54:00 AM HISTORY: Abdominal pain. COMPARISON: 05/15/2009. PROCEDURE: Unenhanced study is completed with renal stone protocol. FINDINGS: There is 1.2 cm calculus in up per pole of right kidney and several other calyceal calculi in right kidney. There is a tiny 2 mm calculus in lower pole of the left kidne y. There is mild dilatation of upper right renal collecting system. The re is no ureterectasis and no ureteral calculi. Moderate stool load in colon. Within limits of enhanced study, otherwi se unremarkable. IMPRESSION: 1. Multiple right renal calyceal calculi demonstrated largest measuring 1.2 cm in upper pole. Upper po le collecting system is mild to moderately dilated unchanged from richard or study of 05/15/2009. Tiny calyceal calculus lower pole left kidney . No acute findings. 2. Moderate stool load in colon. 3. Within limits of unenhanced study, ot herwise unremarkable. This report agrees with the preliminary report by Dr. Linda. Nakul Westfall MD [facility] documented in this encounter Visit Diagnoses Not on filedocumented in this encounter Care Teams County Court Judge Relationship Specialty Start Date End Date Janis Cuellar MD PCP - General 07/08/01 10/12/19 [address] [id number] documented as of this encounter
--- OUTSIDE RECORDS SUMMARY | 2022-04-25 22:26 | XMS_ITS | Encounter Summary ---
:1985 Author Organization [facility] Address [address] [place] [address] Care Team Providers Name Role Phone Janis Cuellar MD Primary Care Provider Encounter Details Date Type Department Care Team Description 05/14/2009 Admission [facility]P [facility] Jayden Arias (Paper Cone Machine Operator) [facility] MD [facility] Results [address] [place], [place] [phone] (Wo rk) Social History Tobacco Use Types Packs/Day Years Used Date Smoking Tobacco: Never Alcohol Use Standard Drinks/Week Comments Yes 0 (1 standard drink = 0.6 oz pure alcoho l) casual Sex Assigned at Date Recorded Not on file documented as of this encounter Progress Notes Jayden Arias - 06/06/2009 5:15 PM MERCHANDISING TEAM LEAD FINAL CHIEF COMPLAINT: Generalized weakness, lightheadedness and right flank pain. HISTORY OF PRESENT ILLNESS: Ms. Mckeon is a 22-year-old woman with a history of chronic iron deficiency anemia who presents with lightheadedness, generalized weakness and lethargy. She reports that these are the symptoms she had in the past when her hemoglobin gets low. Hemoglobin was checked in the emergency room and was 6.4 and she was therefore admitted for transfusion. The anemia was felt to most likely be due to heavy menses but the etiology is not completely clear. She was seen by Dr. Sandy from hematology a year ago when she had similar issue. However, the patient has not been able to follow up further with Dr. Sandy in clinic. At that time the patient was treated with some IV iron and transfusion. PAST MEDICAL HISTORY: 1. Severe iron deficiency anemia. 2. Nephrolithiasis. She passed 8 stones in the past and did have one removed. MEDICATIONS: None. She stopped iron pills in the past as they felt that they were not helping. ALLERGIES: Penicillin. FAMILY HISTORY: Her father has type 1 diabetes and hypertension and her mother had kidney stones, Crohn's disease and hypertension. SOCIAL HISTORY: She lives with some roommates. 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 She does not smoke. REVIEW OF SYSTEMS: CONSTITUTIONAL: She says she has been eating well and denies being on any special diet. GYNECOLOGIC: She had irregular menses. Her last menstrual this was in February, they sometimes are very heavy. RESPIRATORY: She gets some dyspnea on exertion when her hemoglobin levels get low. GASTROINTESTINAL: Some nausea but no vomiting. URINARY: She has had some dysuria recently. MUSCULOSKELETAL: Flank pain as described above. She denies any neurologic, cognitive or cardiovascular symptoms. HEMATOLOGIC: Please see history of present illness. She denies any HEENT symptoms. PHYSICAL EXAMINATION: VITAL SIGNS: Blood pressure is 115/71, pulse 110, respirations 20, temperature 101.1, oxygen saturation 100% on room air. GENERAL: She is alert, pleasant and cooperative, in no apparent distress. HEENT: Pupils are round and equal. Conjunctiva, sclerae and lids are within normal limits. NECK: Supple, with no masses, no thyromegaly. Oropharynx is pink and moist. Teeth and lips are within normal limits. CARDIOVASCULAR: Heart tachycardic with regular rhythm. LUNGS: Clear to auscultation bilaterally with normal respiratory effort. There is some right costovertebral angle tenderness to palpation. ABDOMEN: Soft, nontender, no masses. Normoactive bowel soundsare active. EXTREMITIES: There is no edema. NEUROLOGIC: Strength and sensation are intact in all 4 extremities. Cranial nerves II through XII are grossly intact. PSYCHIATRIC: Oriented x3. Mood and affect are within normal limits. SKIN: No lesions or masses are noted on limited inspection and palpation. LABORATORY DATA: Urinalysis shows greater than 182 white cells, 40 red cells. Urine culture is pending. Beta HCG is negative. White blood cell count is 10.7, hemoglobin 6.4 with an MCV of 60. Platelets 337, sodium 140, potassium 3.6, chloride 104, bicarbonate 25, BUN 15, creatinine 0.76, glucose 104.Previous urine cultures over the past 2 years have indicated five urinary tract infections with Klebsiella, Escherichia coli and Staph aureus. These have all been sensitive to Levaquin. ASSESSMENT AND PLAN: Ms. Mckeon is a 22-year-old woman who presents with symptomatic anemia with iron deficiency and pyelonephritis. Hematologic: It has been presumed that her iron deficiency anemia is most likely due to menstrual loss. She has not had any evidence of gastrointestinal blood loss and her diet seems to be reasonable per her report. She will be transfused 2 units of packed red blood cells. I have encouraged her to follow up with Dr. Sandy in Hematology Clinic. Urinary tract infection: She appears to have kidney involvement with right flank pain. CT of the abdomen without contrast was obtained to look for stones and results are pending. She will be started on levofloxacin and we will await culture results. Treat with pain medications as needed. Electronically signed on 06/06/2009 17:15 by JAYDEN ARIAS MD MT: [id number] Name: ESTEFANIA MCKEON Account: [id number] : 1985 Admitted: [id number] Document: [id number] cc: Khushbu Cuellar MD HANDISING TEAM LEAD documented in this encounter Plan of Treatment Not on filedocumented as of this encounter Visit Diagnoses Not on filedocumented in this encounter Care Teams Bottom Wheeler Relationship Specialty Start Date End Date Janis Cuellar MD PCP - General 07/08/01 10/12/19 [address] [address] documented as of this encounter
--- OUTSIDE RECORDS SUMMARY | 2022-04-25 22:26 | XMS_ITS | Encounter Summary ---
:1985 Author Organization [facility] Address [address] [place] [address] Care Team Providers Name Role Phone Janis Cuellar MD Primary Care Provider Encounter Details Date Type Department Care Team Description 02/28/2010 Admission H&P M [facility] Jayden Spain, (Small Equipment Operator) [facility] Results [address] [place] [address] (Wo rk) Social History Tobacco Use Types Packs/Day Years Used Date Smoking Tobacco: Never Alcohol Use Standard Drinks/Week Comments Yes 0 (1 standard drink = 0.6 oz pure alcoho l) casual Sex Assigned at Date Recorded Not on file documented as of this encounter Progress Notes Jayden Spain - 03/05/2010 8:12 AM CDT FINAL CHIEF COMPLAINT/HISTORY OF PRESENT ILLNESS: Ms. Estefania Mckeon is a 24-year-old female. She has a history of iron deficiency anemia with pretty severe episodes of anemia in the past. She has requiredseveral transfusions. This has been thought to be related to her menstrual cycle. She has had evaluat ion for hemoglobinopathies, which has been negative, but she has not had other GI workup for iron deficiency anemia. She has failed followup with Hematology Clinic as an outpatient. She also has history of kidney stone disease. She has had several episodes of urinary tract infections in the past associated with her renal stones. She presents with 2 days of left flank pain. It has gotten progressivelyworse and more sharp. She has had some nausea, some subjective fevers and some dysuria. She has alsohad some fatigue and weakness, more than usual. She has had no melena or bright red blood per rectum. She came to the ER and her workup here revealed an abnormal urinalysis with 21 white blood cells, small leukocyte esterase and positive nitrites. Urine culture was not sent, but I will add this on. Blood cultures are pending. White blood cell count was normal at 6.1 with normal differential, hemoglobin was also 6.1 with MCV of 69 and RDW of 18.6. Electrolytes and renal function are normal. PAST MEDICAL HISTORY: Remarkable for anemia, thought to be iron deficient. She has been evaluated in the clinic and here in the hospital. She sees Dr. Khushbu Sandy from Hematology. She has had testing for hemoglobinopathies that was negative. She has had labs consistent with iron deficiency several times. She has never had a GI workup for iron deficiency anemia. She has failed outpatient followup with Dr. Sandy. She also has a history of kidney stone disease. She has a history of the several previous urinary tract infections requiring admission here. She also has a history of previous pyelonephritis. MEDICATIONS: Oral contraceptive pill one daily. ALLERGIES: The patient has allergies noted to penicillin and amoxicillin which causes hives. FAMILY HISTORY: Her father has type 1 diabetes, hypertension and her mother had kidney stones, Crohn's disease and hypertension. SOCIAL HISTORY: She does not use tobacco. She drinks alcohol, maybe 1 to 2 drinks per week. REVIEW OF SYSTEMS: No cardiac symptoms, no pulmonary symptoms. See GI symptoms as above. See urinary symptoms above. No bruising or bleeding, no rashes or skin changes, no endocrine complaints, no musculoskeletal complaints, no focal neurologic symptoms, no cognitive changes, no edema, no lymphadenopathy. Infectious symptoms as mentioned above. PHYSICAL EXAMINATION: VITAL SIGNS: At presentation, blood pressure 121/88, heart rate 112, respiratory rate 16, oxygen saturation 100% on room air, temperature 98.8. GENERAL: She is pleasant and cooperative. She is in no acute distress. HEENT: Eyes: Pupils equal, round and reactive to light. There is no conjunctival erythema or icterus. Ears, nose, mouth and throat is normal without deformity. External ears are normal without deformity. Posterior oropharynx is clear. No tonsillar exudate, erythema or swelling. NECK: Supple, no soft tissue masses. Thyroid is normal, no masses or nodules. CHEST: Clear to auscultation with good effort. No retractions. HEART: Regular rate and rhythm without murmur. There is no jugular venous distention. Peripheral pulses are normal and symmetric. ABDOMEN: Bowel sounds present, nontender, nondistended. No masses, no hernias. EXTREMITIES: No clubbing, no cyanosis and no ischemia, no edema. SKIN: Warm and dry to touch. No wound, rashes or ulcers. NEUROLOGIC: Cranial nerves, strength and sensation are normal. LABORATORY DATA: As summarized above. IMPRESSION AND PLAN: 1. Suspected left pyelonephritis. It is a little bit odd to have a normal white blood cell count, but she has clinical scenario and the history that would corroborate this. She has had Klebsiella urinary tract infections in the past as well as E. coli and Staph aureus. She was started on Levaquin in the emergency department and I will continue this. I will add on urine culture. This will need to be followed as well as the blood cultures. 2. Acute anemia, severe with some symptoms of weakness and fatigue. Transfusion was ordered in the emergency department and this will be completed up here on the Medicine Floor. 3. Chronic anemia. This is thought to be iron deficiency related to her menstruation, although she does not describe her menstruation as being heavy. She has had evaluation for hemoglobinopathies that has been negative. She has not followed up with the Hematology Clinic. She has not hada GI workup with endoscopy, because of lack of insurance. Check iron studies, B12 and folic acid levels. I have also requested a peripheral smear. This will likely need to be settled followed in the outpatient setting. 4. Bilateral renal stones. This is chronic. No evidence for ureter stones at this time. Electronically signed on 03/05/2010 08:11 by JAYDEN SPAIN MD MT: [id number] Name: ESTEFANIA MCKEON Account: [id number] : 1985 Admitted: [id number] Document: [id number] cc: Janis Cuellar MD documented in this encounter Plan of Treatment Not on filedocumented as of this encounter Visit Diagnoses Not on filedocumented in this encounter Care Teams Testing Machine Operator Relationship Specialty Start Date End Date Janis Cuellar MD PCP - General 07/08/01 10/12/19 [address] [facility] [address] [place], [place] [phone] documented as of this encounter
--- OUTSIDE RECORDS SUMMARY | 2022-04-25 22:26 | XMS_ITS | Encounter Summary ---
:1985 Author Organization [facility] Address [address] [place] [address] Care Team Providers Name Role Phone Janis Cuellar MD Primary Care Provider Encounter Details Date Type Department Care Team Description 05/19/2009 Historic Results [facility] Moshe Watson MD [facility]- [address] [place], [place] [address] (Wo rk) Social History [...] Name Priority Date/Time Associated Diagnosis Comme nts OCCULT BLOOD STOOL Routine 05/19/2009 10:20 PM Re sults for this ASSISTANT CORPORATE SECRETARY procedure are i n the results section. RETICULOCYTE COUNT Routine 05/19/2009 8:00 AM Res ults for this ASSISTANT CORPORATE SECRETARY procedure are i n the results section. CBC WITH PLATELETS Routine 05/19/2009 8:00 AM Res ults for this ASSISTANT CORPORATE SECRETARY procedure are i n the results section. documented in this encounter Results Occult blood stool (05/19/2009 10:20 PM ASSISTANT CORPORATE SECRETARY) P athologist Signature Occult Blood Negative NEG MISYS Specimen Anatomical Collection Method Collection Time Receive d Time (Source) Location / / Volume Laterality 05/19/2009 10:20 05/15/2009 PM ASSISTANT CORPORATE SECRETARY 11:13 AM ASSISTANT CORPORATE SECRETARY Bayron Crow MD LAB - STOOLS ORDERABLES Performing Organization Address City/[facility]/ZIP Code Phon e Number MISYS (ABNORMAL) CBC with platelets (05/19/2009 8:00 AM ASSISTANT CORPORATE SECRETARY) Analysis Performed At Patho logist Time Signature MCV 68 (L) 78 - 100 MISYS fl MCH 19.4 (L) 26.5 - MISYS 33.0 pg MCHC 28.7 (L) 31.5 - MISYS 36.5 g/dL RDW 28.8 (H) 10.0 - MISYS 15.0 % WBC 4.6 4.0 - 11.0 MISYS 10e9/L RBC Count 4.65 3.8 - 5.2 MISYS 10e12/L Hemoglobin 9.0 (L) 11.7 - MISYS 15.7 g/dL Hematocrit 31.4 (L) 35.0 - MISYS 47.0 % Platelet Count 333 150 - 450 MISYS 10e9/L Specimen Anatomical Collection Method Collection Time Receive d Time (Source) Location / / Volume Laterality 05/19/2009 8:00 AM 9 9:26 ASSISTANT CORPORATE SECRETARY AM ASSISTANT CORPORATE SECRETARY Brant Watson MD LAB - BLOOD ORDERABLES Performing Organization Address City/[facility]/ZIP Code Phon e Number MISYS Reticulocyte count (05/19/2009 8:00 AM ASSISTANT CORPORATE SECRETARY) Patholo gist Method Time Signature % Retic 0.8 0.5 - 2.0 MISYS % Absolute 36.2 25 - 95 MISYS Retic 10e9/L Retic Method Automated MISYS Method Specimen Anatomical Collection Method Collection Time Receive d Time (Source) Location / / Volume Laterality 05/19/2009 8:00 AM 9 2:05 ASSISTANT CORPORATE SECRETARY PM ASSISTANT CORPORATE SECRETARY Brant Watson MD LAB - BLOOD ORDERABLES Performing Organization Address City/[facility]/ZIP Code Phon e Number MISYS documented in this encounter Visit Diagnoses Not on filedocumented in this encounter Care Teams Electrical Technician Relationship Specialty Start Date End Date Janis Cuellar MD PCP - General 07/08/01 10/12/[address] [place] [address] documented as of this encounter
--- OUTSIDE RECORDS SUMMARY | 2022-04-25 22:26 | XMS_ITS | Encounter Summary ---
:1985 Author Organization [place] Address [address] [place] [address] Care Team Providers Name Role Phone Janis Cuellar MD Primary Care Provider Encounter Details Date Type Department Care Team Description 08/31/2008 Emergency room [facility] Robby Obrien, Hospital Results MD EMERGENCY PHYSIC CB [facility] [address] [facility] [address] [place], [place] [phone] (Wo rk) Social History Tobacco Use Types Packs/Day Years Used Date Smoking Tobacco: Never Alcohol Use Standard Drinks/Week Comments Yes 0 (1 standard drink = 0.6 oz pure alcoho l) casual Sex Assigned at Date Recorded Not on file documented as of this encounter Progress Notes Robby Obrien - 09/04/2008 6:25 PM CDT FINAL CHIEF COMPLAINT: Dizziness. HISTORY OF PRESENT ILLNESS: Estefania Mckeon is a 23-year-old female who has a history of anemia buthad not been able to see her regular doctor because of insurance issues. They had talked about doingsome iron infusions because of the problems with the anemia and just did not seem to improve with oral iron and she definitely shows iron deficiency, but because she was not able to because of the insurance, she just had gotten insurance, she called her regular doctor and had a hemoglobin checked and it was still quite low at 7.5, but then she started to feel dizzy and weak, especially when she is upmoving around, and it has been getting worse over last couple weeks. She does not feel faint or likeshe is going to faint, but she feels dizzy, like she is getting close, and so she came in to be seen. She denies chest pain. She does feel short of breath when she is moving around. No fevers or chills. PAST MEDICAL HISTORY: Positive for the anemia. She has also had kidney stones. She has had some abnormal bleeding and is currently on control pills continuously to prevent any bleeding. MEDICATIONS: control pills. She is supposed to take an [id number] iron supplement, but she has not been very regular with that. ALLERGIES: Amoxicillin. REVIEW OF SYSTEMS: All systems negative except for that stated above. SOCIAL HISTORY: She lives in [place]. She is single. PHYSICAL EXAMINATION: VITAL SIGNS: Temperature 96.8, pulse 95, respirations 16, blood pressure 132/81 and O2 saturation 100%. GENERAL: The patient is alert, cooperative and in no respiratory distress. General appearance rashida young, thin, somewhat pale, young lady, who is otherwise well groomed. HEENT: Eyes, conjunctivae are clear. Lids are not swollen. Oropharynx, moist mucous membranes without erythema or lesion. The rest of the ENT exam was unremarkable. NECK: Supple, trachea midline, no stridor. RESPIRATORY: Clear to auscultation. No rub, rales, rhonchi or wheeze. CARDIOVASCULAR: Regular rate and rhythm without murmur or rub. GASTROINTESTINAL: Soft, nondistended and nontender. MUSCULOSKELETAL: Her neck and back were normal, full range of motion without any pain. EXTREMITIES:Normal. No clubbing, cyanosis or edema. No calf tenderness over any muscle groups. No tenderness over any joints. SKIN: Well perfused, no rash. NEUROLOGIC: She is alert and oriented x3. Cranial nerves II through XII are intact. She has good strength in all extremities, and normal sensation to touch. PSYCHIATRIC: Her affect seemed appropriate. EMERGENCY DEPARTMENT COURSE: Other than being somewhat pale, everything looked pretty good at this point. I noted from her past history that she had iron deficiency anemia and kidney stones, so I noted that she had had some blood work done by her doctor on 08/01, with her hemoglobin was 7.5, pretty significant abnormalities of her iron level. She had been trying to take oral iron but I do not know if she has been taking it very well. They had been talking about iron infusions. Unfortunately, she had not had insurance and just got reinstated and so she got a referral to the shuttle spotter, but that has not gone through yet, and so when she started to feel dizzy and lightheaded, she came in here for e valuation. Her laboratory studies came back with white blood cell count 5.0. Her hemoglobin at this point was 6.9 with hematocrit 25.6, so that had dropped from about a little over a half point from her last visit to the clinic. Her platelet count was normal. She has quite a bit of red cell fragmentation noted and she has a pretty significant decrease in her MCV consistent with iron deficiency anemia. Her chemistry panel and liver function tests were normal. Her urinalysis did show sign of infectionat 41 white cells and some white cell clumps as well and it looked like a pretty clean catch urine. Her test was negative. I did decide to go ahead and give her a red blood cell transfusion. I am going to give her 1 unit and then start her on iron. I am going to have her follow up with Dr. Cuellar as well as I gave her a card for Dr. Sandy for follow-up, and so we will get her back in, and I think she might benefit from IV iron, and hopefully Dr. Cuellar can set that up, but she needs to see thehematologist as well. She did well. She had a little bit of headache, which she gets on occasion, and I gave her some ibuprofen for that. I gave her Macrobid 100 mg orally while she was getting her transfusion to start for the urinary tract infection and will have her continue that. CLINICAL IMPRESSION: Dizziness with severe anemia requiring red blood cell transfusion here. She also has urinary tract infection. CLINICAL PLAN: She is to continue the iron. I am going to prescribe iron twice a day. She can do Macrobid twice a day as well for a week's course. I gave her information about urinary tract infection and anemia. She is going to push fluids, get plenty of rest. Follow up with Dr. Sandy as well as Dr. Cuellar. Electronically signed on 09/04/2008 18:24 by ROBBY OBRIEN MD MT: [id number] Name: ESTEFANIA MCKEON MRN: [id number] Account: [id number] : 1985 Visit Date: 08/31/2008 Document: [id number] cc: Khushbu Cuellar MD documented in this encounter Plan of Treatment Not on filedocumented as of this encounter Visit Diagnoses Not on filedocumented in this encounter Care Teams Data Analytics Chief Scientist Relationship Specialty Start Date End Date Janis Cuellar MD PCP - General 07/08/01 10/12/19 [address]AMBINO [address] [address] documented as of this encounter
--- OUTSIDE RECORDS SUMMARY | 2022-04-25 22:26 | XMS_ITS | Encounter Summary ---
:1985 Author Organization [place] Address [address] [place] [id number] Care Team Providers Name Role Phone Janis Cuellar MD Primary Care Provider Encounter Details Date Type Department Care Team Description 05/15/2009 Emergency room [facility] Nathan Joaquin, Hospital Results EMERGENCY PHYSIC [address] [facility] [address] [place], [place] [phone] (Wo rk) Social History Tobacco Use Types Packs/Day Years Used Date Smoking Tobacco: Never Alcohol Use Standard Drinks/Week Comments Yes 0 (1 standard drink = 0.6 oz pure alcoho l) casual Sex Assigned at Date Recorded Not on file documented as of this encounter Progress Notes Nathan Joaquin - 05/17/2009 7:16 AM CIVIL ENGINEERING PROFESSOR FINAL CHIEF COMPLAINT/HISTORY OF PRESENT ILLNESS: Estefania Mckeon has had weakness with increasing lightheadedness, feeling like she is going to faint, almost gets tunnel vision and some nausea with it. This has been going on more and more over the last several days, much worse today. She has known anemia with iron deficiency. She has been given iron in the past but it does not seem to help. She possibly may have an absorbing problem. She also has chronic urinary tract infections. She recently finished aseries I think Macrobid for UTI. She has had no fever or chills and no rash. She has had nausea but no vomiting. She has had no diarrhea. She has had no melena, no hematemesis. She does have dysuria. She has no history of diabetes. ALLERGIES: None. MEDICATIONS: None at this time. PAST MEDICAL HISTORY: Kidney stones and anemia. She did have some right flank pain today which she describes as 6/10 pain. SOCIAL HISTORY: Nonsmoker and nondrinker. FAMILY HISTORY: Not known if there are any other anemic problems in the family. REVIEW OF SYSTEMS: GENERAL: In general, she has been not feeling well with the weakness. CARDIORESPIRATORY: She has got some shortness of breath with exertion. GASTROINTESTINAL: Normal HEME: She has a history of iron deficiency anemia. GENITOURINARY: History chronic urinary infections. All other systems are negative. PHYSICAL EXAMINATION: VITAL SIGNS: Blood pressure 126/84, pulse 127, respiratory rate is 18, temperature is 98.1 and pulse oximetry 100% on room air. GENERAL: Alert, cooperative, very pleasant woman who is fairly pale and the palpebral conjunctiva is fairly pale, complaining primarily of weakness and dizziness, particularly some exertional dyspnea also and a feeling like she is going to faint. SKIN: Warm, dry and pale. HEENT: The palpebral conjunctiva somewhat pale. Otherwise, the pupils are equal, regular and react to light and accommodation. Her mouth and throat are normal. Tongue is normal. NECK: Supple, without adenopathy. There is no JVD noted. LUNGS: Clear to auscultation. No rales, rhonchi, no friction rubs or wheezing. HEART: Sinus tachycardia but no murmurs. ABDOMEN: Soft and nontender to palpation in all 4 quadrants. No hepatosplenomegaly. BACK: Nontenderto palpation. NEUROLOGIC: Alert and oriented x3. Good CMS in all extremities. PSYCHIATRIC: She has normal affect. LYMPHATICS: No pedal edema. LABORATORY DATA: Her urine shows 30 mg per dilution of protein, trace of blood, large leukocyte esterase, greater than 182 white cells per high powered field, 40 red cells per high powered field, manybacteria, white cells in clumps and calcium oxalate crystals are moderate. I did do a urine culture.Her urine is negative. She was typed and crossed for 2 units and the blood was started as soon as we got it. White count is 10,700 with 81 PMNs, 8 lymphs, 10 monos and 1 eosinophil. Hemoglobin is down to 6.4, the RDW, however, is up to 20.4 and platelets are okay at 337,000. Basic metabolic battery was normal, except for glucose of 104. EMERGENCY DEPARTMENT COURSE: IV normal saline 1000 cc an hour. This was followed up by 2 units of packed red cells which were ordered. She is being admitted to observation care while she received the blood. Dr. Spencer has accepted the patient for the observation care. DIAGNOSES: 1. Anemia. 2. Urinary tract infection. CONDITION: Stable. Electronically signed on 05/17/2009 07:16 by NATHAN JOAQUIN MD MT: [id number] Name: ESTEFANIA MCKEON MRN: [id number] Account: [id number] : 1985 Visit Date: 05/15/2009 Document: [id number] cc: Jayden Cuellar MD L ENGINEERING PROFESSOR documented in this encounter Plan of Treatment Not on filedocumented as of this encounter Visit Diagnoses Not on filedocumented in this encounter Care Teams District Claims Manager Relationship Specialty Start Date End Date Janis Cuellar MD PCP - General 07/08/01 10/12/19 [address] [facility] [address] [place] [address] documented as of this encounter
--- OUTSIDE RECORDS SUMMARY | 2022-04-25 22:26 | XMS_ITS | Encounter Summary ---
:1985 Author Organization [place] Address [address] [place] [address]. [place] [address] Care Team Providers Name Role Phone Janis Cuellar MD Primary Care Provider Encounter Details Date Type Department Care Team Description 05/14/2009 Historic Results INTERFACED REPORT Dr Bolivar MD [address] [place] [address] (Wo rk) Social History Tobacco Use Types [...] Associated Comments Diagnosis CBC WITH PLATELETS & STAT 05/14/2009 11:50 Res ults for this DIFFERENTIAL PM GEOLOGICAL E LOGGER procedure are i n the results section. RETICULOCYTE COUNT Routine 05/14/2009 11:50 Resul ts for this PM GEOLOGICAL E LOGGER procedure are i n the results section. FOLATE Routine 05/14/2009 11:50 Results for this PM GEOLOGICAL E LOGGER procedure are i n the results section. ABO/RH TYPE AND Routine 05/14/2009 11:50 Results for this SCREEN PM GEOLOGICAL E LOGGER procedure are i n the results section. VITAMIN B12 Routine 05/14/2009 11:50 Results for this PM GEOLOGICAL E LOGGER procedure are i n the results section. BASIC METABOLIC PANEL STAT 05/14/2009 11:50 Re sults for this PM GEOLOGICAL E LOGGER procedure are i n the results section. HCG QUALITATIVE URINE STAT 05/14/2009 11:33 Re sults for this PM GEOLOGICAL E LOGGER procedure are i n the results section. ROUTINE UA WITH STAT 05/14/2009 11:33 Results for this MICROSCOPIC PM GEOLOGICAL E LOGGER procedure are i n the results section. URINE CULTURE Routine 05/14/2009 11:33 Results fo r this PM GEOLOGICAL E LOGGER procedure are i n the results section. documented in this encounter Results (ABNORMAL) CBC with platelets differential (05/14/2009 11:50 PM GEOLOGICAL E LOGGER) P athologist Signature MCV 60 (L) 78 - 100 fl MISYS MCH 15.9 (L) 26.5 - 33.0 MISYS pg MCHC 26.4 (L) 31.5 - 36.5 MISYS g/dL RDW 20.4 (H) 10.0 - 15.0 MISYS % WBC 10.7 4.0 - 11.0 MISYS 10e9/L RBC Count 4.02 3.8 - 5.2 MISYS 10e12/L Hemoglobin 6.4 (LL) 11.7 - 15.7 MISYS g/dL Comment: This result has been called to TRINO ARTIS by Desmond [facility] on 05/15/09 at 00:02, and has been read back. Hematocrit 24.2 (L) 35.0 - 47.0 % MISYS % Neutrophils 81 (H) 40 - 75 % MISYS % Lymphocytes 8 (L) 20 - 48 % MISYS % Monocytes 10 0 - 12 % MISYS % Eosinophils 1 0 - 6 % MISYS % Basophils 0 0 - 2 % MISYS Platelet Count 337 150 - 450 10e9/L MISYS Absolute Neutrophil 8.6 (H) 1.6 - 8.3 10e9/L MIS YS Absolute Lymphocytes 0.9 0.8 - 5.3 10e9/L HI SYS Absolute Monocytes 1.1 0.0 - 1.3 10e9/L MISY S Absolute Eosinophils 0.1 0.0 - 0.7 10e9/L HI SYS Absolute Basophils 0.0 0.0 - 0.2 10e9/L MISY S Diff Method Automated Method MISYS Specimen Anatomical Collection Method Collection Time Receive d Time (Source) Location / / Volume Laterality 05/14/2009 11:50 05/14/2009 PM GEOLOGICAL E LOGGER 11:39 PM GEOLOGICAL E LOGGER Gallo Joaquin MD LAB - BLOOD ORDERABLES Performing Organization Address City/State/ZIP Code Phon e Number MISYS (ABNORMAL) Basic metabolic panel (05/14/2009 11:50 PM GEOLOGICAL E LOGGER) P athologist Signature Sodium 140 133 - 144 MISYS mmol/L Potassium 3.6 3.4 - 5.3 MISYS mmol/L Chloride 104 94 - 109 MISYS mmol/L Carbon Dioxide 25 20 - 32 MISYS mmol/L Glucose 104 (H) 60 - 99 MISYS mg/dL Urea Nitrogen 11 5 - 24 MISYS mg/dL Creatinine 0.76 0.52 - MISYS 1.04 mg/dL Comment: New IDMS-traceable calibration beginning 09/21/07 GFR Estimate >90 >60 mL/min/1.7m2 MISYS GFR Estimate If Black >90 >60 mL/min/1.7m2 M ISYS Calcium 9.3 8.5 - 10.4 mg/dL MISYS Anion Gap 10 6 - 17 mmol/L MISYS Specimen Anatomical Collection Method Collection Time Receive d Time (Source) Location / / Volume Laterality 05/14/2009 11:50 05/14/2009 PM GEOLOGICAL E LOGGER 11:39 PM GEOLOGICAL E LOGGER Gallo Joaquin MD LAB - BLOOD ORDERABLES Performing Organization Address [facility] Code Phon e Number MISYS Folate (05/14/2009 11:50 PM GEOLOGICAL E LOGGER) P athologist Signature Folate 15.7 >3.3 ng/mL MISYS Comment: Interp: >5.4 ng/mL = Normal Specimen Anatomical Collection Method Collection Time Receive d Time (Source) Location / / Volume Laterality 05/14/2009 11:50 05/15/2009 PM GEOLOGICAL E LOGGER 10:25 AM GEOLOGICAL E LOGGER Gallo Joaquin MD LAB - BLOOD ORDERABLES Performing Organization Address City/[facility] Code Phon e Number MISYS Reticulocyte count (05/14/2009 11:50 PM GEOLOGICAL E LOGGER) Patholo gist Method Time Signature % Retic 1.6 0.5 - 2.0 MISYS % Absolute 65.1 25 - 95 MISYS Retic 10e9/L Retic Method Automated MISYS Method Specimen Anatomical Collection Method Collection Time Receive d Time (Source) Location / / Volume Laterality 05/14/2009 11:50 05/15/2009 PM GEOLOGICAL E LOGGER 10:25 AM GEOLOGICAL E LOGGER Gallo Joaquin MD LAB - BLOOD ORDERABLES Performing Organization Address City/[facility]/ZIP Code Phon e Number MISYS Vitamin B12 (05/14/2009 11:50 PM GEOLOGICAL E LOGGER) athologist Signature Vitamin B12 318 >210 pg/mL MISYS Comment: Interp: [id number] = Normal Specimen Anatomical Collection Method Collection Time Receive d Time (Source) Location / / Volume Laterality 05/14/2009 11:50 05/15/2009 PM GEOLOGICAL E LOGGER 10:25 AM GEOLOGICAL E LOGGER Gallo Joaquin MD LAB - BLOOD ORDERABLES Performing Organization Address City/[facility]/ZIP Code Phon e Number MISYS ABO/Rh type and screen (05/14/2009 11:50 PM GEOLOGICAL E LOGGER) [facility] Method Time Signature ABO O MISYS RH(D) Pos MISYS Antibody Neg MISYS Screen Units Ordered 2 MISYS Crossmatch Red Blood MISYS Cells Specimen 05/17/2009 MISYS Expires Unit Number [id number] MISYS Blood Red Blood MISYS Component Type Cells Leukocyte Reduced Status of Unit ISSUED,FINAL MISYS Unit Number [id number] MISYS Blood Red Blood MISYS Component Type Cells Leukocyte Reduced Status of Unit ISSUED,FINAL MISYS Specimen Anatomical Collection Method Collection Time Receive d Time (Source) Location / / Volume Laterality 05/14/2009 11:50 05/15/2009 PM GEOLOGICAL E LOGGER 12:[address] Osmel [facility] - BLOOD BANK TEST ORDER Performing Organization Address City/[facility] Code Phon e Number MISYS (ABNORMAL) Routine UA with microscopic (05/14/2009 11:33 PM GEOLOGICAL E LOGGER) [facility] Method Time Signature Source Midstream MISYS Urine Color Urine Yellow MISYS Appearance Urine Cloudy MISYS Glucose Urine Negative NEG mg/dL MISYS Bilirubin Urine Negative NEG MISYS Ketones Urine Negative NEG mg/dL MISYS Specific [place] 1.020 1.003 - MISYS Urine 1.035 Blood Urine Trace (A) NEG MISYS pH Urine 6.5 5.0 - 7.0 MISYS pH Protein Albumin 30 (A) NEG mg/dL MISYS Urine Urobilinogen Normal 0.0 - 2.0 MISYS mg/dL mg/dL Nitrite Urine Negative NEG MISYS Leukocyte Large (A) NEG MISYS Esterase Urine WBC Urine >182 (H) 0 - 2 MISYS /HPF RBC Urine 40 (H) 0 - 2 MISYS /HPF Squamous 3 (H) 0 - 1 MISYS Epithelial /HPF /HPF Urine Transitional Epi 7 (H) 0 - 1 MISYS /HPF Bacteria Urine Many (A) NEG /HPF MISYS WBC Clumps Present (A) NEG /HPF MISYS Calcium Oxalate Moderate (A) NEG /HPF MISYS Mucous Urine Present (A) NEG /LPF MISYS Specimen Anatomical Collection Method Collection Time Receive d Time (Source) Location / / Volume Laterality 05/14/2009 11:33 05/14/2009 PM GEOLOGICAL E LOGGER 11:30 PM GEOLOGICAL E LOGGER Gallo Joaquin MD LAB - URINE ORDERABLES Performing Organization Address City/State/ZIP Code Phon e Number MISYS HCG qualitative urine (05/14/2009 11:33 PM GEOLOGICAL E LOGGER) athologist Signature HCG Qual Urine Negative NEG MISYS Comment: This test provides a presumptive diagno sis of or non-. A confirmed diagnosis should on ly be made by a physician after all clinical and laboratory findings have b een evaluated. Specimen Anatomical Collection Method Collection Time Receive d Time (Source) Location / / Volume Laterality 05/14/2009 11:33 05/14/2009 PM GEOLOGICAL E LOGGER 11:30 PM GEOLOGICAL E LOGGER Gallo Joaquin MD LAB - URINE ORDERABLES Performing Organization Address City/State/ZIP Code Phon e Number MISYS Urine culture (05/14/2009 11:33 PM GEOLOGICAL E LOGGER) [facility] gist Method Time Signature Specimen Midstream Urine MISYS Description Culture Micro >100,000 MISYS colonies/mL Escherichia coli Comment: <10,000 colonies/mL Beta hemoly tic Streptococcus group B Micro Report Status FINAL 05/18/2009 MIS YS Specimen Anatomical Collection Method Collection Time Receive d Time (Source) Location / / Volume Laterality 05/14/2009 11:33 05/15/2009 PM GEOLOGICAL E LOGGER 12:11 AM GEOLOGICAL E LOGGER Organism Antibiotic Method Susceptibility >100,000 colonies/ml Ampicillin <=2 Suscept ible escherichia coli (pamela) >100,000 colonies/ml AMPICILLIN/SUBLACTAM <=2 Gordon sceptible escherichia coli (pamela) >100,000 colonies/ml Ceftriaxone <=1 Suscept ible escherichia coli (pamela) >100,000 colonies/ml Cefotaxime Susceptible escherichia coli (pamela) >100,000 colonies/ml Cefoxitin <=4 Suscept ible escherichia coli (pamela) >100,000 colonies/ml Cefazolin <=4 Suscept ible escherichia coli (pamela) >100,000 colonies/ml Ciprofloxacin <=0.25 Susc eptible escherichia coli (pamela) >100,000 colonies/ml Nitrofurantoin <=16 Suscep tible escherichia coli (pamela) >100,000 colonies/ml Gentamicin <=1 Suscept ible escherichia coli (pamela) >100,000 colonies/ml Levofloxacin <=0.12 Susc eptible escherichia coli (pamela) >100,000 colonies/ml Piperacillin/Tazo <=4 Susce ptible escherichia coli (pamela) >100,000 colonies/ml Trimethoprim/Sulfamethoxazole <=1/19 Susceptible escherichia coli (pamela) >100,000 colonies/ml Tobramycin <=1 Suscept ible escherichia coli (pamela) <10,000 colonies/ml beta Ampicillin 0.12 Gordon sceptible hemolytic streptococcus group b (pamela gram pos panel) <10,000 colonies/ml beta Ceftriaxone <=0.25 Susceptible hemolytic streptococcus group b (pamela gram pos panel) <10,000 colonies/ml beta Cefotaxime <=0.25 Susceptible hemolytic streptococcus group b (pamela gram pos panel) <10,000 colonies/ml beta Clindamycin <=0.06 Susceptible hemolytic streptococcus group b (pamela gram pos panel) <10,000 colonies/ml beta Erythromycin <=0.06 Susceptible hemolytic streptococcus group b (pamela gram pos panel) <10,000 colonies/ml beta Levofloxacin 1 Susce ptible hemolytic streptococcus group b (pamela gram pos panel) <10,000 colonies/ml beta Penicillin 0.06 Gordon sceptible hemolytic streptococcus group b (pamela gram pos panel) <10,000 colonies/ml beta Tetracycline <=0.5 S usceptible hemolytic streptococcus group b (pamela gram pos panel) <10,000 colonies/ml beta Comment: See com ment below hemolytic streptococcus group b (pamela gram pos panel) Comment: Clindamycin and Erythromycin are not routinely prescribed for isolates from the urinary tract. <10,000 colonies/ml beta hemolytic streptococcus group b Vancomy olegario 0.5 Susceptible (pamela gram pos panel) Dr Osmel [facility] - MICRO GENERAL ORDERABL ES Performing Organization Address City/State/ZIP Code Phon e Number MISYS documented in this encounter Visit Diagnoses Not on filedocumented in this encounter Care Teams Electroencephalograph Technologist Relationship Specialty Start Date End Date Janis Cuellar MD PCP - General 07/08/01 10/12/19 [address] [place] [address] documented as of this encounter
--- OUTSIDE RECORDS SUMMARY | 2022-04-25 22:26 | XMS_ITS | Encounter Summary ---
:1985 Author Organization [facility] Address [address] [place] [address] Care Team Providers Name Role Phone Janis Cuellar MD Primary Care Provider Encounter Details Date Type Department Care Team Description 08/31/2008 Historic Results INTERFACED REPORT Robby Loyd MD [facility] [address] [place], [place] [id number] (Wo rk) Social History Tobacco Use Types Packs/Day Years Used Date Smoking Tobacco: Never Alcohol Use Standard Drinks/Week Comments Yes 0 (1 standard drink = 0.6 oz pure alcoho l) casual Sex Assigned at Date Recorded Not on file documented as of this encounter Plan of Treatment Not on filedocumented as of this encounter Procedures Procedure Name Priority Date/Time Associated Comments Diagnosis TRANSFUSE RBC STAT 08/31/2008 5:42 PM Results for this CDT procedure are i n the results section. HCG QUALITATIVE URINE STAT 08/31/2008 4:50 PM Results for this CDT procedure are i n the results section. CBC WITH PLATELETS & STAT 08/31/2008 4:50 PM R esults for this DIFFERENTIAL CDT procedure are i n the results section. ROUTINE UA WITH STAT 08/31/2008 4:50 PM Result s for this MICROSCOPIC CDT procedure are i n the results section. COMPREHENSIVE STAT 08/31/2008 4:50 PM Results for this METABOLIC PANEL CDT procedure ar e in the results section. ABO/RH TYPE AND SCREEN STAT 08/31/2008 4:50 PM Results for this CDT procedure are i n the results section. documented in this encounter Results Transfuse RBC (08/31/2008 5:42 PM CDT) Patholo gist Method Time Signature RED BLOOD CELL Order MISYS ORDER received Comment: Check for Allocated/OK to [facility]aylor sfuse units Specimen Anatomical Collection Method Collection Time Receive d Time (Source) Location / / Volume Laterality 08/31/2008 5:42 PM 9 5:41 CDT PM CDT Robby Loyd MD LAB - BLOOD BANK PRODUCT ORD ER Performing Organization Address City/State/ZIP Code Phon e Number MISYS (ABNORMAL) CBC with platelets differential (08/31/2008 4:50 PM CDT) P athologist Signature MCV 62 (L) 78 - 100 fl MISYS MCH 16.6 (L) 26.5 - 33.0 MISYS pg MCHC 27.0 (L) 31.5 - 36.5 MISYS g/dL RDW 18.0 (H) 10.0 - 15.0 MISYS % WBC 5.0 4.0 - 11.0 MISYS 10e9/L RBC Count 4.15 3.8 - 5.2 MISYS 10e12/L Hemoglobin 6.9 (LL) 11.7 - 15.7 MISYS g/dL Comment: This result has been called to michelle in [place] by Janie Mills on 08/31/08 at 17:16, and has been read back. Hematocrit 25.6 (L) 35.0 - 47.0 % MISYS % Neutrophils 42 40 - 75 % MISYS % Lymphocytes 39 20 - 48 % MISYS % Monocytes 15 (H) 0 - 12 % MISYS % Eosinophils 3 0 - 6 % MISYS % Basophils 1 0 - 2 % MISYS Platelet Count 367 150 - 450 10e9/L MISYS Absolute Neutrophil 2.1 1.6 - 8.3 10e9/L MIS YS Absolute Lymphocytes 1.9 0.8 - 5.3 10e9/L [place] SYS Absolute Monocytes 0.7 0.0 - 1.3 10e9/L MISY S Absolute Eosinophils 0.2 0.0 - 0.7 10e9/L [place] SYS Absolute Basophils 0.0 0.0 - 0.2 10e9/L MISY S Platelet Estimate Normal MISYS Diff Method Automated Method MISYS RBC Morphology Consistent with reported results MISYS Anisocytosis Moderate MISYS Polychromasia Moderate Increase MISYS RBC Fragments Slight MISYS Stomatocytes Slight MISYS Microcytes Present MISYS Reactive Lymphs Present MISYS Hypochromasia Present MISYS Specimen Anatomical Collection Method Collection Time Receive d Time (Source) Location / / Volume Laterality 08/31/2008 4:50 PM 9 4:42 CDT PM CDT Robby Loyd MD LAB - BLOOD ORDERABLES Performing Organization Address City/[facility] Phon e Number MISYS Comprehensive metabolic panel (08/31/2008 4:50 PM CDT) P athologist Signature Sodium 139 133 - 144 MISYS mmol/L Potassium 3.9 3.4 - 5.3 MISYS mmol/L Chloride 107 94 - 109 MISYS mmol/L Carbon Dioxide 22 20 - 32 MISYS mmol/L Glucose 98 60 - 99 MISYS mg/dL Urea Nitrogen 7 5 - 24 MISYS mg/dL Creatinine 0.59 0.52 - 1.04 MISYS mg/dL Comment: New IDMS-traceable calibration beginning 09/21/07 GFR Estimate >90 >60 mL/min/1.7m2 MISYS GFR Estimate If Black >90 >60 mL/min/1.7m2 M ISYS Calcium 9.0 8.5 - 10.4 mg/dL MISYS AST 29 0 - 45 U/L MISYS Protein Total 7.5 6.8 - 8.8 g/dL MISYS Comment: As of 07, reference range reflects plasma specimen type. Anion Gap 10 6 - 17 mmol/L MISYS Albumin 4.2 3.9 - 5.1 g/dL MISYS ALT 16 0 - 50 U/L MISYS Alkaline Phosphatase 53 40 - 150 U/L MISYS Bilirubin Total 0.4 0.2 - 1.3 mg/dL MISYS Specimen Anatomical Collection Method Collection Time Receive d Time (Source) Location / / Volume Laterality 08/31/2008 4:50 PM 9 4:42 CDT PM CDT Robby Loyd MD LAB - BLOOD ORDERABLES Performing Organization Address [facility] Phon e Number MISYS (ABNORMAL) Routine UA with microscopic (08/31/2008 4:50 PM CDT) Patholo gist Method Time Signature Source Midstream MISYS Urine Color Urine Yellow MISYS Appearance Urine Slightly MISYS Cloudy Glucose Urine Negative NEG mg/dL MISYS Bilirubin Urine Negative NEG MISYS Ketones Urine Negative NEG mg/dL MISYS Specific [place] 1.017 1.003 - MISYS Urine 1.035 Blood Urine Negative NEG MISYS pH Urine 6.5 5.0 - 7.0 MISYS pH Protein Albumin 10 (A) NEG mg/dL MISYS Urine Urobilinogen Normal 0.0 - 2.0 MISYS mg/dL mg/dL Nitrite Urine Negative NEG MISYS Leukocyte Trace (A) NEG MISYS Esterase Urine WBC Urine 41 (H) 0 - 2 MISYS /HPF RBC Urine 6 (H) 0 - 2 MISYS /HPF Squamous 1 0 - 1 MISYS Epithelial /HPF /HPF Urine Bacteria Urine Few (A) NEG /HPF MISYS WBC Clumps Present (A) NEG /HPF MISYS Mucous Urine Present (A) NEG /LPF MISYS Specimen Anatomical Collection Method Collection Time Receive d Time (Source) Location / / Volume Laterality 08/31/2008 4:50 PM 9 4:42 CDT PM CDT Robby Loyd MD LAB - URINE ORDERABLES Performing Organization Address City/State/ZIP Code Phon e Number MISYS HCG qualitative urine (08/31/2008 4:50 PM CDT) athologist Signature HCG Qual Urine Negative NEG MISYS Specimen Anatomical Collection Method Collection Time Receive d Time (Source) Location / / Volume Laterality 08/31/2008 4:50 PM 9 4:42 CDT PM CDT Robby Loyd MD LAB - URINE ORDERABLES Performing Organization Address City/[facility]/ZIP Code Phon e Number MISYS ABO/Rh type and screen (08/31/2008 4:50 PM CDT) [facility] Method Time Signature ABO O MISYS RH(D) Pos MISYS Antibody Neg MISYS Screen Units Ordered 1 MISYS Crossmatch Red Blood MISYS Cells Specimen 09/03/2008 MISYS Expires Unit Number [id number] MISYS Blood Red Blood MISYS Component Type Cells Leukocyte Reduced Status of Unit ISSUED,FINAL MISYS Specimen Anatomical Collection Method Collection Time Receive d Time (Source) Location / / Volume Laterality 08/31/2008 4:50 PM 9 4:42 CDT PM CDT Robby Loyd MD LAB - BLOOD BANK TEST ORDER Performing Organization Address City/State/ZIP Code Phon e Number MISYS documented in this encounter Visit Diagnoses Not on filedocumented in this encounter Care Teams Doll Eye Setter Relationship Specialty Start Date End Date Janis Cuellar MD PCP - General 07/08/01 10/12/19 [address] [place] [address] documented as of this encounter
--- OUTSIDE RECORDS SUMMARY | 2022-04-25 22:26 | XMS_ITS | Encounter Summary ---
:1985 Author Organization [place] Address [address] [place] [address] Care Team Providers Name Role Phone Janis Cuellar MD Primary Care Provider Encounter Details Date Type Department Care Team Description 09/28/2009 Historic Results [facility] Janis Cuellar MD [place] [address] [facility] [address] [place] [address] [place], [place] [phone] (Wo rk) [address] [phone] Social History Tobacco Use Types Packs/Day Years Used Date Smoking Tobacco: Never Alcohol Use Standard Drinks/Week Comments Yes 0 (1 standard drink = 0.6 oz pure alcoho l) casual Sex Assigned at Date Recorded Not on file documented as of this encounter Plan of Treatment Not on filedocumented as of this encounter Procedures Procedure Name Priority Date/Time Associated Comments Diagnosis TRANSFERRIN Routine 09/28/2009 10:38 Results for this AM CDT procedure are i n the results section. IRON AND IRON BINDING Routine 09/28/2009 8:51 AM Results for this CAPACITY CDT procedure are i n the results section. ABO/RH TYPE AND Routine 09/28/2009 6:32 AM Result s for this SCREEN CDT procedure are i n the results section. documented in this encounter Results (ABNORMAL) Transferrin (09/28/2009 10:38 AM CDT) P athologist Signature Transferrin 421 (H) 210 - 360 MISYS mg/dL Specimen Anatomical Collection Method Collection Time Receive d Time (Source) Location / / Volume Laterality 09/28/2009 10:38 03/13/2007 1:08 AM CDT PM CDT Janis Cuellar MD LAB - BLOOD ORDERABLES Performing Organization Address City/[facility]/ZIP Code Phon e Number MISYS (ABNORMAL) Iron and iron binding capacity (09/28/2009 8:51 AM CDT) P athologist Signature Iron 7 (L) 35 - 180 MISYS ug/dL Iron Binding 539 (H) 240 - 430 MISYS Cap ug/dL Iron Saturation 1 (L) 15 - 46 % MISYS Index Specimen Anatomical Collection Method Collection Time Receive d Time (Source) Location / / Volume Laterality 09/28/2009 8:51 AM 7 1:08 CDT PM CDT Janis Cuellar MD LAB - BLOOD ORDERABLES Performing Organization Address [facility] Phon e Number MISYS ABO/Rh type and screen (09/28/2009 6:32 AM CDT) [facility] gist Method Time Signature ABO O MISYS RH(D) Pos MISYS Antibody Neg MISYS Screen Units Ordered 2 MISYS Crossmatch Red Blood MISYS Cells Specimen 03/16/2007 MISYS Expires Unit Number [id number] MISYS Blood Red Blood MISYS Component Type Cells Leukocyte Reduced Status of Unit ISSUED,FINAL MISYS Unit Number [id number] MISYS Blood Red Blood MISYS Component Type Cells Leukocyte Reduced Status of Unit ISSUED,FINAL MISYS Specimen Anatomical Collection Method Collection Time Receive d Time (Source) Location / / Volume Laterality 09/28/2009 6:32 AM 7 1:07 CDT PM CDT Janis Cuellar MD LAB - BLOOD BANK TEST ORDER Performing Organization Address City/[facility] Phon e Number MISYS documented in this encounter Visit Diagnoses Not on filedocumented in this encounter Care Teams Crinkling Machine Operator Relationship Specialty Start Date End Date Janis Cuellar MD PCP - General 07/08/01 10/12/[address] [place] [address] documented as of this encounter
--- OUTSIDE RECORDS SUMMARY | 2022-04-25 22:26 | XMS_ITS | Encounter Summary ---
:1985 Author Organization [facility] Address [address] [place] [address] Care Team Providers Name Role Phone Janis Cuellar MD Primary Care Provider Reason for Visit Reason Onset Date Comments Refill Request 06/24/2008 [place] Encounter Details Date Type Department Care Team Description 06/24/2008 Refill [facility] Janis Cuellar MD Refill Request Clinic [place] [address] ([place]) [address] [place] [address] [place], [place] [phone] (Wo rk) [address] [phone] Social History Tobacco Use Types Packs/Day Years Used Date Smoking Tobacco: Never Alcohol Use Standard Drinks/Week Comments Yes 0 (1 standard drink = 0.6 oz pure alcoho l) casual Sex Assigned at Date Recorded Not on file documented as of this encounter Miscellaneous Notes Telephone Encounter - Janis Cuellar - 06/24/2008 11:53 AM CST Done. SAW OPERATOR Telephone Encounter - Christine Cook - 06/24/2008 10:10 AM CST LF 06/23/07. OV 04/09/08 Pt has no pap on file. Pt does not remember last pap date. Advised pt to schedule OV/Pap natividad. (Pt was not able to schedule at time due to driving.) authorization required. Torrey Cook RN SAW OPERATOR documented in this encounter Plan of Treatment Not on filedocumented as of this encounter Visit Diagnoses Diagnosis Iron deficiency anemia, unspecified - Pr imary documented in this encounter Care Teams Quality Control Manager Relationship Specialty Start Date End Date Janis Cuellar MD PCP - General 07/08/01 10/12/[address] [id number] documented as of this encounter
--- OUTSIDE RECORDS SUMMARY | 2022-04-25 22:26 | XMS_ITS | Encounter Summary ---
:1985 Author Organization [facility] Address [address] [place] [address] Care Team Providers Name Role Phone Janis Cuellar MD Primary Care Provider Encounter Details Date Type Department Care Team Description 03/01/2010 Historic Results INTERFACED REPORT Michael Westfall MD [facility] [address] [place] [address] (Wo rk) Social History [...] Procedure Name Priority Date/Time Associated Comments Diagnosis ABO/RH TYPE AND STAT 03/01/2010 3:53 AM Result s for this SCREEN CDT procedure are i n the results section. BLOOD CULTURE STAT 03/01/2010 12:59 Results fo r this AM CDT procedure are i n the results section. BLOOD CULTURE STAT 03/01/2010 12:51 Results fo r this AM CDT procedure are i n the results section. CBC WITH PLATELETS & STAT 03/01/2010 12:19 Res ults for this DIFFERENTIAL AM CDT procedure are i n the results section. IRON AND IRON BINDING Routine 03/01/2010 12:19 Re sults for this CAPACITY AM CDT procedure are i n the results section. FOLATE Routine 03/01/2010 12:19 Results for this AM CDT procedure are i n the results section. FERRITIN Routine 03/01/2010 12:19 Results for this AM CDT procedure are i n the results section. VITAMIN B12 Routine 03/01/2010 12:19 Results for this AM CDT procedure are i n the results section. BASIC METABOLIC PANEL STAT 03/01/2010 12:19 Re sults for this AM CDT procedure are i n the results section. documented in this encounter Results ABO/Rh type and screen (03/01/2010 3:53 AM CDT) [facility] Method Time Signature ABO O MISYS RH(D) Pos MISYS Antibody Neg MISYS Screen Units Ordered 2 MISYS Crossmatch Red Blood MISYS Cells Specimen 03/04/2010 MISYS Expires Unit Number [id number] MISYS Blood Red Blood MISYS Component Type Cells Leukocyte Reduced Status of Unit Released to MISYS care unit Unit Number [id number] MISYS Blood Red Blood MISYS Component Type Cells Leukocyte Reduced Status of Unit Released to MISYS care unit Specimen Anatomical Collection Method Collection Time Receive d Time (Source) Location / / Volume Laterality 03/01/2010 3:53 AM 0 3:25 CDT AM CDT Nakul Westfall MD LAB - BLOOD BANK TEST ORDER Performing Organization Address City/[facility]/ZIP Code Phon e Number MISYS Blood culture (03/01/2010 12:59 AM CDT) [facility] [employer] Method Time Signature Specimen Left Arm MISYS Description Culture Micro No growth MISYS after 6 days Micro Report FINAL MISYS Status Specimen Anatomical Collection Method Collection Time Receive d Time (Source) Location / / Volume Laterality 03/01/2010 12:59 03/01/2010 AM CDT 12:28 AM CDT Nakul Westfall MD LAB - MICRO GENERAL ORDERABL ES Performing Organization Address City/[facility]/ZIP Code Phon e Number MISYS Blood culture (03/01/2010 12:51 AM CDT) [facility] [employer] Method Time Signature Specimen Right Hand MISYS Description Culture Micro No growth MISYS after 6 days Micro Report FINAL MISYS Status Specimen Anatomical Collection Method Collection Time Receive d Time (Source) Location / / Volume Laterality 03/01/2010 12:51 03/01/2010 AM CDT 12:28 AM CDT Nakul Westfall MD LAB - MICRO GENERAL ORDERABL ES Performing Organization Address City/State/ZIP Code Phon e Number MISYS (ABNORMAL) CBC with platelets differential (03/01/2010 12:19 AM CDT) athologist Signature MCV 60 (L) 78 - 100 fl MISYS MCH 15.7 (L) 26.5 - 33.0 MISYS pg MCHC 26.3 (L) 31.5 - 36.5 MISYS g/dL RDW 18.6 (H) 10.0 - 15.0 MISYS % WBC 6.1 4.0 - 11.0 MISYS 10e9/L RBC Count 3.89 3.8 - 5.2 MISYS 10e12/L Hemoglobin 6.1 (LL) 11.7 - 15.7 MISYS g/dL Comment: This result has been called to [employer] by Desmond Rogers on 03/01/10 at 01:13, and has been read back. Hematocrit 23.2 (L) 35.0 - 47.0 % MISYS % Neutrophils 45 40 - 75 % MISYS % Lymphocytes 39 20 - 48 % MISYS % Monocytes 13 (H) 0 - 12 % MISYS % Eosinophils 2 0 - 6 % MISYS % Basophils 1 0 - 2 % MISYS Platelet Count 376 150 - 450 10e9/L MISYS Absolute Neutrophil 2.7 1.6 - 8.3 10e9/L MIS YS Absolute Lymphocytes 2.4 0.8 - 5.3 10e9/L [place] SYS Absolute Monocytes 0.8 0.0 - 1.3 10e9/L MISY S Absolute Eosinophils 0.1 0.0 - 0.7 10e9/L [place] SYS Absolute Basophils 0.1 0.0 - 0.2 10e9/L MISY S Platelet Estimate Normal MISYS Diff Method Automated Method MISYS Hypochromasia Present MISYS Specimen Anatomical Collection Method Collection Time Receive d Time (Source) Location / / Volume Laterality 03/01/2010 12:19 03/01/2010 AM CDT 12:28 AM CDT Nakul Westfall MD LAB - BLOOD ORDERABLES Performing Organization Address City/State/ZIP Code Phon e Number MISYS Basic metabolic panel (03/01/2010 12:19 AM CDT) athologist Signature Sodium 141 133 - 144 MISYS mmol/L Potassium 3.7 3.4 - 5.3 MISYS mmol/L Chloride 107 94 - 109 MISYS mmol/L Carbon Dioxide 23 20 - 32 MISYS mmol/L Glucose 82 60 - 99 MISYS mg/dL Urea Nitrogen 10 5 - 24 MISYS mg/dL Creatinine 0.87 0.52 - 1.04 MISYS mg/dL Comment: New IDMS-traceable calibration beginning 09/21/07 GFR Estimate 80 >60 mL/min/1.7m2 MISYS GFR Estimate If Black >90 >60 mL/min/1.7m2 M ISYS Calcium 9.3 8.5 - 10.4 mg/dL MISYS Anion Gap 11 6 - 17 mmol/L MISYS Comment: CORRECTED ON 03/01 AT 0659: PRE VIOUSLY REPORTED 12 Specimen Anatomical Collection Method Collection Time Receive d Time (Source) Location / / Volume Laterality 03/01/2010 12:19 03/01/2010 AM CDT 12:28 AM CDT Nakul Westfall MD LAB - BLOOD ORDERABLES Performing Organization Address City/State/ZIP Code Phon e Number MISYS (ABNORMAL) Iron and iron binding capacity (03/01/2010 12:19 AM CDT) athologist Signature Iron <10 (L) 35 - 180 MISYS ug/dL Iron Binding 731 (H) 240 - 430 MISYS Cap ug/dL Iron Saturation <1 (L) 15 - 46 % MISYS Index Specimen Anatomical Collection Method Collection Time Receive d Time (Source) Location / / Volume Laterality 03/01/2010 12:19 03/01/2010 4:04 AM CDT AM CDT Nakul Westfall MD LAB - BLOOD ORDERABLES Performing Organization Address City/State/ZIP Code Phon e Number MISYS (ABNORMAL) Ferritin (03/01/2010 12:19 AM CDT) athologist Signature Ferritin 2 (L) 10 - 120 MISYS ng/mL Specimen Anatomical Collection Method Collection Time Receive d Time (Source) Location / / Volume Laterality 03/01/2010 12:19 03/01/2010 4:04 AM CDT AM CDT Nakul Westfall MD LAB - BLOOD ORDERABLES Performing Organization Address City/[facility] Code Phon e Number MISYS Folate (03/01/2010 12:19 AM CDT) P athologist Signature Folate 13.6 >3.3 ng/mL MISYS Comment: Interp: >5.4 ng/mL = Normal Specimen Anatomical Collection Method Collection Time Receive d Time (Source) Location / / Volume Laterality 03/01/2010 12:19 03/01/2010 4:04 AM CDT AM CDT Nakul Westfall MD LAB - BLOOD ORDERABLES Performing Organization Address City/[facility] Code Phon e Number MISYS Vitamin B12 (03/01/2010 12:19 AM CDT) P athologist Signature Vitamin B12 264 >210 pg/mL MISYS Comment: Interp: [phone] = Normal Specimen Anatomical Collection Method Collection Time Receive d Time (Source) Location / / Volume Laterality 03/01/2010 12:19 03/01/2010 4:04 AM CDT AM CDT Nakul Westfall MD LAB - BLOOD ORDERABLES Performing Organization Address City/[facility] Code Phon e Number MISYS documented in this encounter Visit Diagnoses Not on filedocumented in this encounter Care Teams Ward Maid Relationship Specialty Start Date End Date Janis Cuellar MD PCP - General 07/08/01 10/12/19 [address] [place] [address] documented as of this encounter
--- OUTSIDE RECORDS SUMMARY | 2022-04-25 22:26 | XMS_ITS | Encounter Summary ---
:1985 Author Organization [facility] Address [address] [place] [address]. [place] [address] Care Team Providers Name Role Phone Janis Cuellar MD Primary Care Provider Reason for Referral Referral not Required - Closed Specialty Diagnoses / Procedures Referred By Contact Refer red To Contact Diagnoses Iron deficiency anemia, unspecified Janis Cuellar MD [facility] [address] [place] [address] [address] [facility] [address] [place] [phone] Phone: [phone] Fax: Referral ID Status Reason Start Date Expiration Date Visits Requ ested Visits Authorized [id number] Closed 08/01/2008 05/22/2011 1 1 Reason for Visit Reason Onset Date Comments Other 07/31/2008 insurance Encounter Details Date Type Department Care Team Description 07/31/2008 Telephone [facility] Tracey Culelar MD Other (insurance) [place] [address] [place] [address] [place], [place] [phone] (Wo rk) [address] [phone] Social History Tobacco Use Types Packs/Day Years Used Date Smoking Tobacco: Never Alcohol Use Standard Drinks/Week Comments Yes 0 (1 standard drink = 0.6 oz pure alcoho l) casual Sex Assigned at Date Recorded Not on file documented as of this encounter Miscellaneous Notes Telephone Encounter - Alessia Vargas - 08/01/2008 8:58 AM CDT Patient informed and referral mailed. Alessia Vargas/RENAN Telephone Encounter - Janis Cuellar - 08/01/2008 7:49 AM CDT Referral to Hematology, Dr. Khushbu Sandy who saw her in hospital. Come for labs. Orders done.l Telephone Encounter - Nava Montilla - 07/31/2008 3:16 PM CDT Patient calling, wants to let you know she now has insurance, wants to know what the next step willbe please advise documented in this encounter Plan of Treatment Not on filedocumented as of this encounter Procedures Procedure Name Priority Date/Time Associated Diagnosis Comme nts ZZ CONSULT ONCOLOGY/HEMATOLOGY Routine 09/13/2008 IRON DE FIC ANEMIA NOS documented in this encounter Results CONSULT ONCOLOGY/HEMATOLOGY (09/13/2008) Narrative This result has an attachment that is no t available. Janis Cuellar MD REFERRAL documented in this encounter Visit Diagnoses Diagnosis IRON DEFIC ANEMIA NOS - Primary Iron deficiency anemia, unspecified documented in this encounter Care Teams Export Clerk Relationship Specialty Start Date End Date Janis Cuellar MD PCP - General 07/08/01 10/12/19 [address] [place] [address] documented as of this encounter
--- OUTSIDE RECORDS SUMMARY | 2022-04-25 22:26 | XMS_ITS | Encounter Summary ---
:1985 Author Organization [place] [facility] Address [address] [place] [address] Care Team Providers Name Role Phone Janis Cuellar MD Primary Care Provider Encounter Details Date Type Department Care Team Description 05/20/2009 Historic Results [facility] Moshe Watson MD [address] [address] (Wo rk) Social History Tobacco [...] Name Priority Date/Time Associated Diagnosis Comme nts HEMOGLOBIN Routine 05/20/2009 7:25 AM Results f or this AUTOMAT WATCHER procedure are i n the results section . documented in this encounter Results (ABNORMAL) Hemoglobin (05/20/2009 7:25 AM AUTOMAT WATCHER) P athologist Signature Hemoglobin 9.4 (L) 11.7 - 15.7 MISYS g/dL Specimen Anatomical Collection Method Collection Time Receive d Time (Source) Location / / Volume Laterality 05/20/2009 7:25 AM 05/19/200 9 AUTOMAT WATCHER 11:15 AM AUTOMAT WATCHER Brant Watson MD LAB - BLOOD ORDERABLES Performing Organization Address City/State/ZIP Code Phon e Number MISYS documented in this encounter Visit Diagnoses Not on filedocumented in this encounter Care Teams Repulping Supervisor Relationship Specialty Start Date End Date Janis Cuellar MD PCP - General 07/08/01 10/12/19 [address] [facility] [address] [place], [place] [id number] documented as of this encounter
--- OUTSIDE RECORDS SUMMARY | 2022-04-25 22:26 | XMS_ITS | Encounter Summary ---
:1985 Author Organization [facility] Address [address] [place] [address] Care Team Providers Name Role Phone Janis Cuellar MD Primary Care Provider Encounter Details Date Type Department Care Team Description 05/20/2009 Results [facility] Brant Watson MD Hospital [facility] [address] [facility] [place] [place] [address] (Wo rk) Social History [...] Procedure Name Priority Date/Time Associated Diagnosis Comme [facility] US Routine 05/20/2009 3:10 PM Results f or this RETROPERITONEAL, COMPLEMENTARY HEALTH THERAPISTS procedure a re in COMPLETE the results section. documented in this encounter Results SONO RETROPERITONEAL (05/20/2009 3:10 PM COMPLEMENTARY HEALTH THERAPISTS) Anatomical Region Laterality Modality Other Specimen (Source) Anatomical Collection Method Collection Time Re ceived Time Location / / Volume Laterality 05/20/2009 3:10 PM COMPLEMENTARY HEALTH THERAPISTS Impressions 05/21/2009 8:44 AM COMPLEMENTARY HEALTH THERAPISTS ULTRASOUND RETROPERITONEAL COMPLETE ??De c 2008 3:10:00 PM HISTORY: Abdominal pain. Nephrolithiasis . COMPARISON: 05/15/2009 - CT abdomen and pelvis. FINDINGS: The right and left kidneys hav e normal echotexture, measuring 11.0 cm and 12.3 cm in length respectively. 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 A 1.2 cm echogenic focus with posterior acoustic shadowing within the central right kidne y likely represents a calculus as visualized on the recent comparison C T scan. The additional smaller calculi present within both kidneys on t hat CT scan are not visualized. Mild dilatation of the right upper pole calyx, as visualized on the comparison CT scan. No visualized renal masses. The urinary bladder is not well visualized, likely due to nondistention. IMPRESSION: 1. 1.2 cm probable calculus within the r ight kidney, corresponding to the calculus visualized on the recent co mparison CT scan. A few additional smaller bilateral renal calcu li present on that CT scan are not visualized on this study. 2. Mild dilatation of the upper pole aminta yx of the right kidney, also noted on the comparison CT scan. 3. Duplicated left kidney. Brant Watson MD SPECIAL IMAGING STUDIES documented in this encounter Visit Diagnoses Not on filedocumented in this encounter Care Teams Hand Bulldozer Relationship Specialty Start Date End Date Janis Cuellar MD PCP - General 07/08/01 10/12/19 Jamie GAMBINO [facility] [address] [place] [address] documented as of this encounter
--- OUTSIDE RECORDS SUMMARY | 2022-04-25 22:26 | XMS_ITS | Encounter Summary ---
:1985 Author Organization [facility] Address [address] [place] [address] Care Team Providers Name Role Phone Janis uCellar MD Primary Care Provider Encounter Details Date Type Department Care Team Description 05/21/2009 Discharge Summary [facility] Brant Watson, ([address]) [facility] Results [address] [place] [address] (Wo rk) Social History Tobacco Use Types Packs/Day Years Used Date Smoking Tobacco: Never Alcohol Use Standard Drinks/Week Comments Yes 0 (1 standard drink = 0.6 oz pure alcoho l) casual Sex Assigned at Date Recorded Not on file documented as of this encounter Progress Notes Brant Watson - 05/23/2009 5:48 PM SCIENCE MANAGER FINAL ADMISSION DIAGNOSES: 1. Severe iron deficiency anemia. 2. Nephrolithiasis. DISCHARGE DIAGNOSES: 1. Urinary tract infection complicated with nephrolithiasis. 2. Renal colic, right-sided. 3. Severe iron deficiency anemia S/P transfusions. CONSULTS: Urology. OPERATIONS AND PROCEDURES: None during this admission. HISTORY OF PRESENT ILLNESS: Estefania Mckeon is a 23-year-old woman with a history of chronic iron deficiency anemia and kidney stones who presented to the ER complaining of weakness, lightheadedness and right flank pain. She was found to be severely anemic and was transfused. She also was found to have a positive urine for infection. For further detailed information, please review history and physical dictated by Dr. Spencer in this electronic medical record. HOSPITAL COURSE: 1. The patient had been treated with levofloxacin IV. The urine culture came back positive for E. coli that has a very good sensitivity to levofloxacin and other quinolones. She has been doing fine inthat regard. No fever. Good appetite. She has been complaining of severe constipation, likely related to the continued use of narcotics for pain control. She has been treated for constipation symptomatically. 2. Complicated UTI with kidney stones. The pain has been present all the time through the admission. She is using Vicodin around the clock and also is getting some extra IV Dilaudid for breakthrough. The studies show multiple calculi in both kidneys. There is a big one in the right kidney that will need lithotripsy in the coming weeks. The others are small calculi. There are chances that the pain she is expressing is related to small stones going down the ureter. No hydronephrosis had been found on recent studies, including an ultrasound done the day before discharge. The patient is going tocontinue pain care at home with Percocet and follow up with her primary care physician and Urology as scheduled. 2. Severe iron deficiency anemia. History is kind of confusing here. The patient states that she does not have any problem with menstruation. No GI losses have been proven. As per patient report, she had been placed on frequent doses of iron daily in the past without successful results. She is leaving the hospital with a hemoglobin of 9.4 after the transfusion. She has been treated with iron supplement 3 times per day associated with vitamin C at this point. Still, reticulocyte count is low. In this regard, she should follow up with her primary care physician and consider some GI studies to prove at least malabsorption. Otherwise, she would need a consult with Hematology and probably IV iron as needed. As per records on admissions, it seems that 1 year ago she saw Dr. Sandy's, software implementation specialist, in the office, but patient did not follow up. CONDITION ON DISCHARGE: 1. Cognitive status is baseline. 2. Functional capacity is baseline. INSTRUCTIONS: 1. Diet as tolerated. 2. Physical activity as tolerated. 3. Follow up with Urology, primary care physician and GI doctor as needed. Consider consult with Hematology. DISCHARGE MEDICATIONS: 1. Ferrous sulfate 325 mg 1 tablet 3 times a day. 2. Vitamin C 500 mg 1 tablet 3 times a day with ferrous sulfate. 3. MiraLax 17 grams daily for constipation. 4. Dulcolax 5-10 mg 1 tablet daily for constipation. 5. Oxycodone/acetaminophen 5/325 one or two tablets every 4 hours p.r.n. for pain. 6. Zrpejunpsqbzx802 mg b.i.d. for the next 3 days. Starting on 05/25, she should continue taking ciprofloxacin 250 mg once a day per Urology's recommendation. She will be taking this medication until a urologist performs procedure for definitive treatment of the stones. DISPOSITION: 1. Going to home. 2. Follow up with Urology, primary care physician, GI and Hematology as needed. Electronically signed on 05/23/2009 17:47 by BRANT WATSON MD MT: [id number] Name: ESTEFANIA MCKEON MRN: [id number] Account: [id number] : 1985 Admit Date: [id number] Discharge Date: 05/21/2009 Document: [id number] NCE MANAGER documented in this encounter Plan of Treatment Not on filedocumented as of this encounter Visit Diagnoses Not on filedocumented in this encounter Care Teams Ladle Patcher Relationship Specialty Start Date End Date Janis Cuellar MD PCP - General 07/08/01 10/12/19 Jamie GAMBINO [facility] [address] [place] [address] documented as of this encounter
--- OUTSIDE RECORDS SUMMARY | 2022-04-25 22:26 | XMS_ITS | Encounter Summary ---
:1985 Author Organization [facility] Address [address] [place] [address]. [place] [address] Care Team Providers Name Role Phone Janis Cuellar MD Primary Care Provider Encounter Details Date Type Department Care Team Description 02/28/2010 Emergency room [facility] Nakul Lemons , [facility] Results MD EMERGENCY PHYSIC [facility] [address] [place] [address] (Wo rk) Social History Tobacco Use Types Packs/Day Years Used Date Smoking Tobacco: Never Alcohol Use Standard Drinks/Week Comments Yes 0 (1 standard drink = 0.6 oz pure alcoho l) casual Sex Assigned at Date Recorded Not on file documented as of this encounter Progress Notes Nakul Lemons - 03/04/2010 6:26 AM CDT FINAL CHIEF COMPLAINT: Left flank pain and anemia. HISTORY OF PRESENT ILLNESS: Estefania Mckeon is a 24-year-old female with a history of anemia. When it had been discovered she was 4. The patient has been transfused in the past and has been on iron pills which have not helped. The patient has complained over the last 3 days of left flank pain radiating around to the front. She says that she has had previous kidney stones and it feels similar to that. 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 She says that she has had fevers, difficulty with urinating, frequency, nausea but no vomiting. She has had a headache, no direct trauma to her abdomen. Nothing makes the pain better or worse. Denies any vaginal discharge or bleeding. The pain is 6 to 7/10. She is currently having constant pain, feeling somewhat light-headed and pale for approximately the last 2 weeks. No noted blood in her stool, no nosebleeds or other areas of bleeding. MEDICATIONS: control. ALLERGIES: Amoxicillin. PAST MEDICAL HISTORY: Kindney stones, anemia. SOCIAL HISTORY: This patient does not smoke. Presents here with her mother. REVIEW OF SYSTEMS: Ten-point review of systems negative, except as in HPI. PHYSICAL EXAMINATION: GENERAL: The patient is a pale 24-year-old female who is uncomfortable on the gurney, no respiratory distress. VITAL SIGNS: Temperature 98.8, blood pressure 121/80, pulse 112, respirations 16, [id number]% on room air. HEENT: Eyes: Pupils equal, round and reactive. Nose and mouth significant for dry mucous membranes. HEME: There is pallor of the skin. LYMPHATICS: No adenopathy. CARDIOVASCULAR: Tachycardic but regular. RESPIRATORY: Lungs are clear. No wheezes or crackles. GASTROINTESTINAL: Abdomen soft, no guarding or rebound, no masses. No hepatosplenomegaly. MUSCULOSKELETAL: There is left flank tenderness, no gross deformity. SKIN: Pale, no rash or petechiae. NEUROLOGIC: The patient is grossly intact. PSYCHIATRIC: Appropriate. LABORATORY AND DIAGNOSTICS: Urinalysis shows 21 white blood cells, small leukocyte esterase, mucousis present. UCG is negative. White count is 6.1, hemoglobin is 6.1 and hematocrit is 23. BMP is unremarkable. Blood cultures were sent. CT scan of the abdomen and pelvis was performed and read by the ra diologist. This demonstrated multiple right renal stones, focal prominence right upper intrarenal collecting system, no signs of hydronephrosis. EMERGENCY DEPARTMENT COURSE AND DECISION MAKING: IV access was obtained. The patient's urinalysis did show signs of a bladder infection. I considered pyelo with the flank pain versus kidney stone. Forpain control, the patient had received 4 mg boluses of IV morphine x3, Toradol 3 mg IV as well, 4 mgIV Zofran for nausea and she was started on Levaquin 500 IV. The patient was very anemic here. We discussed that she would need a transfusion. She was pale. I questioned her and in the past this has been worked up. There is no current bleeding, what she is complaining of. Blood ordered the ER and the patient was admitted to the floor. PLAN: Admit the patient to the floor as discussed with Dr. Lewis. DIAGNOSES: 1. Pyelonephritis. 2. Anemia. TOTAL CRITICAL CARE TIME: The critical time on this patient was 50 minutes in exclusion of procedures. Due to significant anemia and need for transfusion. Electronically signed on 03/04/2010 06:25 by NAKUL LEMONS MD MT: [id number] Name: ESTEFANIA MCKEON MRN: [id number] Account: [id number] : 1985 Visit Date: 02/28/2010 Document: [id number] cc: Janis Cuellar MD documented in this encounter Plan of Treatment Not on filedocumented as of this encounter Visit Diagnoses Not on filedocumented in this encounter Care Teams Panel Instrument Repairer Relationship Specialty Start Date End Date Janis Cuellar MD PCP - General 07/08/01 10/12/19 [address] GAMBINO [facility] [address] [place] [address] documented as of this encounter
--- OUTSIDE RECORDS SUMMARY | 2022-04-25 22:26 | XMS_ITS | Encounter Summary ---
:1985 Author Organization [facility] Address [address] [place] [address] Care Team Providers Name Role Phone Janis Cuellar MD Primary Care Provider Encounter Details Date Type Department Care Team Description 05/15/2009 Historic Results [facility] Hospitalists [address] [place], [place] [address] (Wo rk) Social History [...] Priority Date/Time Associated Diagnosis Comme nts HEMOGLOBIN Timed 05/15/2009 6:12 AM Results f or this HEALTH COORDINATOR procedure are i n the results section . documented in this encounter Results (ABNORMAL) Hemoglobin (05/15/2009 6:12 AM HEALTH COORDINATOR) P athologist Signature Hemoglobin 8.1 (L) 11.7 - 15.7 MISYS g/dL Specimen Anatomical Collection Method Collection Time Receive d Time (Source) Location / / Volume Laterality 05/15/2009 6:12 AM 9 7:00 HEALTH COORDINATOR AM HEALTH COORDINATOR Jayden Spencer MD LAB - BLOOD ORDERABLES Performing Organization Address City/State/ZIP Code Phon e Number MISYS documented in this encounter Visit Diagnoses Not on filedocumented in this encounter Care Teams Leather Seasoner Relationship Specialty Start Date End Date Janis Cuellar MD PCP - General 07/08/01 10/12/19 [address] [facility] [address] [place] [address] documented as of this encounter
--- OUTSIDE RECORDS SUMMARY | 2022-04-25 22:26 | XMS_ITS | Encounter Summary ---
:1985 Author Organization [facility] Address [address] [place] [address] Care Team Providers Name Role Phone Janis Cuellar MD Primary Care Provider Encounter Details Date Type Department Care Team Description 05/16/2009 Historic Results [facility] Bayron Courtney MD [facility] [address] [place] [address] [place], [place] [phone] (Wo rk) Social History Tobacco Use Types [...] Associated Comments Diagnosis IRON AND IRON Routine 05/16/2009 2:00 PM Results for this BINDING CAPACITY DISPENSING OPTICIAN procedure a re in the results section. HEMOGLOBIN Timed 05/16/2009 6:40 AM Results f or this DISPENSING OPTICIAN procedure are i n the results section. documented in this encounter Results (ABNORMAL) Iron and iron binding capacity (05/16/2009 2:00 PM DISPENSING OPTICIAN) athologist Signature Iron 49 35 - 180 MISYS ug/dL Iron Binding 466 (H) 240 - 430 MISYS Cap ug/dL Iron Saturation 10 (L) 15 - 46 % MISYS Index Specimen Anatomical Collection Method Collection Time Receive d Time (Source) Location / / Volume Laterality 05/16/2009 2:00 PM 9 DISPENSING OPTICIAN 11:50 AM DISPENSING OPTICIAN Bayron Crow MD LAB - BLOOD ORDERABLES Performing Organization Address City/State/ZIP Code Phon e Number MISYS (ABNORMAL) Hemoglobin (05/16/2009 6:40 AM DISPENSING OPTICIAN) P athologist Signature Hemoglobin 8.7 (L) 11.7 - 15.7 MISYS g/dL Specimen Anatomical Collection Method Collection Time Receive d Time (Source) Location / / Volume Laterality 05/16/2009 6:40 AM 9 6:00 DISPENSING OPTICIAN AM DISPENSING OPTICIAN Jayden Spencer MD LAB - BLOOD ORDERABLES Performing Organization Address City/State/ZIP Code Phon e Number MISYS documented in this encounter Visit Diagnoses Not on filedocumented in this encounter Care Teams Center Administrator Relationship Specialty Start Date End Date Janis Cuellar MD PCP - General 07/08/01 10/12/19 [address] [facility] [address] [place], [place] [address] documented as of this encounter
--- OUTSIDE RECORDS SUMMARY | 2022-04-25 22:26 | XMS_ITS | Encounter Summary ---
:1985 Author Organization [place] Address [address] [place] [address] Care Team Providers Name Role Phone Janis Cuellar MD Primary Care Provider Encounter Details Date Type Department Care Team Description 05/18/2009 Historic Results [facility] Bayron Courtney MD [facility] [address] [place] [address] [place], [place] [phone] (Wo rk) Social History Tobacco Use Types [...] Associated Diagnosis Comme nts BASIC METABOLIC Routine 05/18/2009 7:00 AM Result s for this PANEL DRESSMAKER HELPER procedure are i n the results section. documented in this encounter Results Basic metabolic panel (05/18/2009 7:00 AM DRESSMAKER HELPER) P athologist Signature Sodium 139 133 - 144 MISYS mmol/L Potassium 4.1 3.4 - 5.3 MISYS mmol/L Chloride 106 94 - 109 MISYS mmol/L Carbon Dioxide 25 20 - 32 MISYS mmol/L Glucose 98 60 - 99 MISYS mg/dL Urea Nitrogen 8 5 - 24 MISYS mg/dL Creatinine 0.63 0.52 - 1.04 MISYS mg/dL Comment: New IDMS-traceable calibration beginning 09/21/07 GFR Estimate >90 >60 mL/min/1.7m2 MISYS GFR Estimate If Black >90 >60 mL/min/1.7m2 M ISYS Calcium 9.3 8.5 - 10.4 mg/dL MISYS Anion Gap 9 6 - 17 mmol/L MISYS Specimen Anatomical Collection Method Collection Time Receive d Time (Source) Location / / Volume Laterality 05/18/2009 7:00 AM 9 DRESSMAKER HELPER 10:58 AM DRESSMAKER HELPER Bayron Crow MD LAB - BLOOD ORDERABLES Performing Organization Address City/State/ZIP Code Phon e Number MISYS documented in this encounter Visit Diagnoses Not on filedocumented in this encounter Care Teams Electronic Integrated Systems Mechanic Relationship Specialty Start Date End Date Janis Cuellar MD PCP - General 07/08/01 10/12/19 [address] [place] [address] documented as of this encounter
--- OUTSIDE RECORDS SUMMARY | 2022-04-25 22:26 | XMS_ITS | Encounter Summary ---
:1985 Author Organization [facility] Address [address] [place] [address] Care Team Providers Name Role Phone Janis Cuellar MD Primary Care Provider Encounter Details Date Type Department Care Team Description 05/17/2009 Historic Results [facility] Hospitalists [address] [place], [place] [address] (Wo rk) Social History [...] Date/Time Associated Diagnosis Comme nts HEMOGLOBIN Routine 05/17/2009 6:50 AM Results f or this SENIOR QUALITY CONTROL INSPECTOR procedure are i n the results section . documented in this encounter Results (ABNORMAL) Hemoglobin (05/17/2009 6:50 AM SENIOR QUALITY CONTROL INSPECTOR) P athologist Signature Hemoglobin 9.1 (L) 11.7 - 15.7 MISYS g/dL Specimen Anatomical Collection Method Collection Time Receive d Time (Source) Location / / Volume Laterality 05/17/2009 6:50 AM 9 SENIOR QUALITY CONTROL INSPECTOR 12:26 AM SENIOR QUALITY CONTROL INSPECTOR Jayden Spencer MD LAB - BLOOD ORDERABLES Performing Organization Address City/State/ZIP Code Phon e Number MISYS documented in this encounter Visit Diagnoses Not on filedocumented in this encounter Care Teams Machine Design Engineer Relationship Specialty Start Date End Date Janis Cuellar MD PCP - General 07/08/01 10/12/19 [address] [facility] [address] [place] [address] documented as of this encounter
--- OUTSIDE RECORDS SUMMARY | 2022-04-25 22:26 | XMS_ITS | Encounter Summary ---
:1985 Author Organization [facility] Address [address] [place] [address]. [place] [address] Care Team Providers Name Role Phone Janis Cuellar MD Primary Care Provider Encounter Details Date Type Department Care Team Description 05/17/2009 Historic Notes INTERFACED REPORT Interface, Transcript on, Social History Tobacco Use Types Packs/Day Years Used Date Smoking Tobacco: Never Alcohol Use Standard Drinks/Week Comments Yes 0 (1 standard drink = 0.6 oz pure alcoho l) casual Sex Assigned at Date Recorded Not on file documented as of this encounter Progress Notes Interface, Fluoroscope Operator - 08/08/2010 1:18 PM CDT Patient Status - Diagnosis/Procedure Right Flank Pain, Urinary Tract Infection - Physical status Stable (s/s of potential complications absent or manageable) - Psychosocial status Stable Interdisciplinary Plan of Care Problem Status/Summary - Discharge Summary admitted for right flank pain, anemia Note (indicate follow-up plan for unresolved problems and goals/outcomes) Discharge Planning - Discharge From: [facility] - Patient Care Unit: Med/surg 3 - PCU - Discharge To: Home/Alternative home - Method of discharge: Wheel Chair - Transportation: Private Discharge Information - Valuables returned Valuables returned - Discharge information Discharge instructions reviewed with pt/family/so - Accompanied by son - Mode of Travel Wheelchair Support Services - Is home care No recommended? - Supplies sent/ordered No - Equipment No sent/ordered - Other Services No arranged Special Care Needs and Instructions - Diet Instructions: Regular diet - Activity as tolerated Instructions: - Report temp if 101 degrees F greater than: - Is patient going home No with IV Catheter?: Other Discharge Education, Materials, and Instructions - Other Education, You have a fever (increased body temperature). Materials, and Your urine is pink or red, or has red specks in Instructions: it. You have UTI symptoms after you have finished taking all of your medicine. You are nauseated (upset stomach), have diarrhea (loose bowel movements), or get a rash. You are vomiting (throwing up) and cannot keep down your medicine or liquids. You have new symptoms, like a rash, itching, or swelling. These may be caused by your medicine Follow Up Care - Physician/clinician Dr. Cuellar/ [facility] name: - - When to see follow up 1-2 weeks physician/clinician: - Physician/clinician Urology/Dr. Franco name: - - When to see follow up with 2-3 weeks or as scheduled. physician/clinician: - Physician/clinician [facility] name: - - When to see follow up 1-2 weeks for studies of iron physician/clinician: malabsorption - Physician/clinician Hematology name: - - When to see consider hematology consult physician/clinician: DALLIN Willingham (RN)[Signed 10:51] Authored: Interdisciplinary Plan of Care Problem Status/Summary, Discharge Information, Special CareNeeds and Instructions, Other Discharge Education, Materials, and Instructions, Follow Up Care Elin Salgado (MICHAEL)[Signed 09:39] Authored: Patient Status, Discharge Planning, Discharge Information, Support Services, Special Care Needs and Instructions, Follow Up Care documented in this encounter Plan of Treatment Not on filedocumented as of this encounter Visit Diagnoses Not on filedocumented in this encounter Care Teams Patient Access Manager Relationship Specialty Start Date End Date Janis Cuellar MD PCP - General 07/08/01 10/12/19 [address] [facility] [address] [place] [address] documented as of this encounter
--- OUTSIDE RECORDS SUMMARY | 2022-04-25 22:26 | XMS_ITS | Encounter Summary ---
:1985 Author Organization [place] Address [address] [place] [address] Care Team Providers Name Role Phone Janis Cuellar MD Primary Care Provider Encounter Details Date Type Department Care Team Description 05/20/2009 Historic Notes INTERFACED REPORT Brant Watson MD [address] [place], [place] [address] (Wo rk) Social History Tobacco Use Types Packs/Day Years Used Date Smoking Tobacco: Never Alcohol Use Standard Drinks/Week Comments Yes 0 (1 standard drink = 0.6 oz pure alcoho l) casual Sex Assigned at Date Recorded Not on file documented as of this encounter Progress Notes Brant Watson - 08/08/2010 1:06 PM CDT Interval History - Interval History: Recurrent pain alog the night waking her up and asking for IV Diluadid on top of Percocet. She says pain is 8/10 at worse, colic like in R lumbar fossa and flank. No elicited or modified with movements. No further issues. Review of Systems - Constitutional: Negative - Musculoskeletal R lumbar pain worse since last night Comments: - Respiratory: Negative - Cardiovascular: Negative [...] on palpation r paraspinal muscles. Labs Laboratory 07:25 Hemoglobin * 9.4 Vital Signs/Labs/Imaging/Culture Review - Vital Signs: Vital Signs reviewed past 24 hours. - Lab Results: All lab results reviewed past 24 hours. - Imaging Results: All imaging results reviewed past 24 hours. - Culture Results: All culture results reviewed past 24 hours. Assessment and Plan - Assessment/Plan: 23 yo female with chronic anemia admitted with severe anemia and UTI. 1- Anemia unclear etiology. Iron deff w/o sginifficant menses (menstruation every other month normal) and not known GI loses. Out patient studies never concluded per patient report. Hgb 9.4 today. Patient states she failed oral treatment in the past, she is taking Fe supplement since 05/15. Reticulocytes lower than before. She will need IV Fe if really absorption is nule. 2- Complicated UTI with E Coli in UC and bilateral stones. On Levof. Urology consultation done, THKS. Plan is to do lithothripsia as outpatient. Bacteria sensitive to Ciproflox. I am planning discharge patient on Cipro. 3- Renal Colic r sided 2/2 nephrolitihiasis. Pain out of control since last night. She is likely passing a stone. I ordered US and will keep her tonight for painj control porpouse. 4- Chronic constipation. Stool softener. Going home tomorrow Signatures BRANT WATSON)[Signed 17:00] Authored: Interval History, Review of Systems, Physical Exam, Labs, Vital Signs/Labs/Imaging/CultureReview, Assessment and Plan documented in this encounter Plan of Treatment Not on filedocumented as of this encounter Visit Diagnoses Not on filedocumented in this encounter Care Teams Compo Conveyor Operator Relationship Specialty Start Date End Date Janis Cuellar MD PCP - General 07/08/01 10/12/19 [address] [facility] [address] [place] [address] documented as of this encounter
--- OUTSIDE RECORDS SUMMARY | 2022-04-25 22:26 | XMS_ITS | Encounter Summary ---
:1985 Author Organization [place] Address [address] [facility] [place] [address] Care Team Providers Name Role Phone Janis Cuellar MD Primary Care Provider Encounter Details Date Type Department Care Team Description 05/19/2009 Consultation [facility] Valdo Villar, Hospital Results [address] [facility] [address] [place], [place] [address] (Wo rk) Social History Tobacco Use Types Packs/Day Years Used Date Smoking Tobacco: Never Alcohol Use Standard Drinks/Week Comments Yes 0 (1 standard drink = 0.6 oz pure alcoho l) casual Sex Assigned at Date Recorded Not on file documented as of this encounter Progress Notes Valdo Villar - 07/11/2009 11:31 AM TOOTH CUTTER PINION FINAL UROLOGY CONSULTATION REASON FOR CONSULTATION: Nephrolithiasis. HISTORY OF PRESENT ILLNESS: Estefania Mckeon is a healthy 23-year-old woman who was admitted to the hospital 5 days ago with generalized weakness and lightheadedness with some right flank pain. She wasalso anemic with hemoglobin of only 6.4 before she had a blood transfusion in the Emergency Department. She had already been previously followed by a corporate logistics manager for these issues of chronic anemia. The urine culture that was drawn on admission is now growing out E. coli that is sánchez susceptible. She is on Levaquin, she is afebrile and is doing well. Her white blood count was normal 4 days ago and is being rechecked this morning. She had a noncontrast CT scan performed that showed some kidney stones in the right kidney with the largest of these stones about 11 or 12 mm in diameter. There is no hydronephrosis on either side and there were no stones in either ureter. The patient does report a previous history of nephrolithiasis and says she has passed stones in the past and did have a procedure to have a stone removed roughly 6 years ago from the left side. She was also told by the doctor at that time that she has a duplicated left-sided collecting system. She is not certain which hospital the procedure occurred at and she is not certain which doctor performed the procedure. PAST MEDICAL HISTORY: Anemia and nephrolithiasis as above. MEDICATIONS: None. ALLERGIES: Penicillin. PAST SURGICAL HISTORY: Prior appendectomy, prior stone removal procedure as described above. FAMILY HISTORY: Her mother also has nephrolithiasis. SOCIAL HISTORY: She is a nonsmoker. PHYSICAL EXAMINATION: The patient was seen at her bedside today and she was currently alert and oriented and in no pain. Her abdomen is soft, nontender, nondistended. On CT scan, the left side is completely clear of stones and on the right side there were no stones in the ureter, but there are multiple stones in the right kidney with the largest of which is locatedin the renal pelvis that is roughly 11 or 12 mm in diameter. IMPRESSION AND PLAN: A 23-year-old woman with right-sided kidney stones. Today, I discussed this diagnosis with her. I discussed the fact that the largest of these stones on the right is too large andthat she will not be able to pass it on her own and she will require a procedure in order to break up the stone into passable fragments. I discussed shock wave lithotripsy with her today and we will schedule this for her as an outpatient. We will possibly need to place a stent at the beginning of her shock wave lithotripsy procedure as well. The stone is radiopaque on the CT ornamental bronze worker film. At this time,she will discharge on Levaquin and complete a 10-day course of Levaquin. I then recommend that she re main on ciprofloxacin 250 mg a day until her shock wave procedure can be completed. I will schedule this with my office today and it will occur in roughly 2 or 3 weeks. Electronically signed on 07/11/2009 11:30 by VALDO VILLAR MD MT: [id number] Name: ESTEFANIA MCKEON Account: [id number] : 1985 Consult Date: 05/19/2009 Document: [id number] H CUTTER PINION documented in this encounter Plan of Treatment Not on filedocumented as of this encounter Visit Diagnoses Not on filedocumented in this encounter Care Teams Manager Environmental Health And Safety Relationship Specialty Start Date End Date Janis Cuellar MD PCP - General 07/08/01 10/12/19 Jamie GAMBINO [address] [address] documented as of this encounter
--- OUTSIDE RECORDS SUMMARY | 2022-04-25 22:26 | XMS_ITS | Encounter Summary ---
:1985 Author Organization [place] Address [address] [place] [address] Care Team Providers Name Role Phone Janis Cuellar MD Primary Care Provider Encounter Details Date Type Department Care Team Description 05/15/2009 Historic Notes INTERFACED REPORT Interface, Transcript on, Social History Tobacco Use Types Packs/Day Years Used Date Smoking Tobacco: Never Alcohol Use Standard Drinks/Week Comments Yes 0 (1 standard drink = 0.6 oz pure alcoho l) casual Sex Assigned at Date Recorded Not on file documented as of this encounter Progress Notes Interface, Home Health Care Provider - 08/08/2010 1:25 PM CDT General Information - How to be Addressed Estefania - Patient Belongings cell phone; shoes; purse; clothing; body jewelry; earrings; jacket, scarf - Disposition of left with pt Belongings - personal lines insurance agent #1: Beth Mckeon - Relationship to Mother patient #1: - Phone 1: [phone] - Patient's spoken language; [place] or Bilingual communication style Advance Directive - Do you have an No Advanced Health Care Directive? - Can patient name a Yes Surrogate Decision Maker? (Not legally binding) - Surrogate Name: Beth Mckeon - Surrogate mother relationship to patient: - Surrogate Number: - Would you like more No information about Advanced Health Care Directives? Health and Illness - Reason for Admission Anemia and UTI as Stated by Patient - Blood none Avoidance/Restrictio_ ns - Previous Blood yes Transfusion - Previous Transfusion no Reaction - Transfusion History 5 different occassions in 5 years that she has Comment needed blood Medication Information - Medications Brought no to Hospital - Medication none - Medication Pumps none Role Relationships/Living Environment - Limitations on none Visitors/Phone Calls/TV - Lives With friend - Living Arrangements house Substance Use - Tobacco Use None. - Exposure to Second Infrequently exposed to second hand smoke Hand Smoke - Caffeine Use Yes - Caffeine Type Pop/soda - Caffeine Amount 4 cans - Alcohol Use none - History of street No drug/inhalant/ medication abuse Review of Systems - Neurological syncope; dizziness; headaches Conditions/Symptoms - Pain: 5 Comfort/Acceptable Pain Level (0-10) - Head none Conditions/Symptoms - Eye none Conditions/Symptoms - Ear none Conditions/Symptoms - Nose none Conditions/Symptoms - Mouth/Throat/Neck none Conditions/Symptoms - Cardiac dizziness; syncope; Amemia Conditions/Symptoms - Peripheral/Neurovasc_ none ular Conditions/Symptoms - Respiratory non productive cough; dyspnea Conditions/Symptoms - Diet Regular - Nutrition Risk Screen No risk indicators present - GI none Conditions/Symptoms - Last Bowel Movement ([id number]-dd-yy) - Usual Bowel Pattern every third day - burning; recent urinary tract infection; Conditions/Symptoms recurrent urinary tract infection; renal calculi - Menstruation/Menopau_ irregular menstrual pattern; dysmenorrhea se - Last Menstrual Period February - /Could Be no - Musculoskeletal back pain; joint pain/swelling Conditions/Symptoms - Ambulation 0 - Independent with ambulation [...] a recent onset or change? - Skin none reported Conditions/Symptoms - Endocrine none Conditions/Symptoms - Hematological anemia Conditions/Symptoms - Immune /Infections none - Influenza vaccine has not received for this flu season - Influenza vaccine none of the above indications indications (check all that apply) - Pneumococcal Vaccine never immunized - Pneumococcal Vaccine none of the above indications Indications - offer year round (Check all that apply) - Recent Exposure to none Communicable Disease - Communicable Disease none History - Oncology none Conditions/Symptoms - Mental Health feels sad and cries alot Conditions/Symptoms Skin Inspection - Skin Inspection: WDL: color consistent w/ ethnicity; no abnormality in temperature, moisture, turgor, integrity Coping Stress/Abuse - Major job stress, no insurance Change/Loss/Stressor - QUESTION TO PATIENT: No Has a member of your family or a partner(now or in the past) intimidated, hurt, manipulated, or controlled you in any way? - QUESTION TO Yes PATIENT/CAREGIVER: Do you feel safe going back to the place where you are living? - NURSE OBSERVATION: Is No there reason to believe there has been maltreatment of a vulnerable adult (ie. Physical/Sexual/Emot_ ioanl abuse, self neglect, lack of adequate food, correction, medical care, or financial exploitation)? Values/Beliefs/Spiritual Care - F: Natalie: Do you have Pentacostal a connection with a natalie community, zoroastrian, or shinto group? - C: Community: In no thank you support of your spiritual health, is there someone we may contact for you? (identify all that apply) Learning Assessment - Factors Influencing no factors identified Readiness to Learn - Factors that Impact none Ability to Learn - Learning Preferences skill demonstration; written material - Cultural none Considerations - Developmental none Considerations - Hoahaoism none Considerations Mutuality/Individual Preferences - What information nothing would help us give you more personalized care? Signatures KEYSHA LLANOS (RN)[Signed 02:23] Authored: General Information, Advance Directive, Health and Illness, Medication Information, Role Relationships/Living Environment, Substance Use, Review of Systems, Skin Inspection, Coping Stress/Abuse, Values/Beliefs/Spiritual Care, Learning Assessment, Mutuality/Individual Preferences Interface, Home Health Care Provider - 08/08/2010 1:23 PM CDT SWS D: Per MD request to see regarding insurance referrals.. pt currently with no health care insurance coverage. BRIAN has met with pt, provided her with application for [place] [facility] program consideration, and information also for [facility] program. [facility] Financial Counselor unavailable today... BRIAN paul provided pt with contact number should assistance or questions arise with applications and eligibility. [facility] Financial Counselor dept notified accordingly of SW contact with pt today. No further SW, available until discharge as needed. [Signature] Author: Rosalinda Jauregui) [Signed 11:11] documented in this encounter Plan of Treatment Not on filedocumented as of this encounter Visit Diagnoses Not on filedocumented in this encounter Care Teams Profiling Machine Set Up Operator Tool Relationship Specialty Start Date End Date Janis Cuellar MD PCP - General 07/08/01 10/12/19 [address] [place] [address] documented as of this encounter
--- OUTSIDE RECORDS SUMMARY | 2022-04-25 22:26 | XMS_ITS | Encounter Summary ---
:1985 Author Organization [place] Address [address] [place] [address] Care Team Providers Name Role Phone Janis Cuellar MD Primary Care Provider Encounter Details Date Type Department Care Team Description 02/28/2010 Historic Results [facility] Jayden Lewis , [facility] [address] [place], [place] [address] (Wo rk) Social History [...] Procedure Name Priority Date/Time Associated Comments Diagnosis HCG QUALITATIVE URINE STAT 02/28/2010 10:39 Re sults for this PM CDT procedure are i n the results section. ROUTINE UA WITH STAT 02/28/2010 10:39 Results for this MICROSCOPIC PM CDT procedure are i n the results section. URINE CULTURE Routine 02/28/2010 10:39 Results fo r this PM CDT procedure are i n the results section. documented in this encounter Results (ABNORMAL) Routine UA with microscopic (02/28/2010 10:39 PM CDT) [facility] Method Time Signature Source Midstream MISYS Urine Color Urine Light Yellow MISYS Appearance Urine Slightly MISYS Cloudy Glucose Urine Negative NEG mg/dL MISYS Bilirubin Urine Negative NEG MISYS Ketones Urine Negative NEG mg/dL MISYS Specific Diamond 1.010 1.003 - MISYS Urine 1.035 Blood Urine Negative NEG MISYS pH Urine 7.5 (H) 5.0 - 7.0 MISYS pH Protein Albumin Negative NEG mg/dL MISYS Urine Urobilinogen Normal 0.0 - 2.0 MISYS mg/dL mg/dL Nitrite Urine Positive (A) NEG MISYS Leukocyte Small (A) NEG MISYS Esterase Urine WBC Urine 21 (H) 0 - 2 MISYS /HPF RBC Urine 1 0 - 2 MISYS /HPF Squamous 2 (H) 0 - 1 MISYS Epithelial /HPF /HPF Urine Bacteria Urine Moderate (A) NEG /HPF MISYS Amorphous Moderate (A) NEG /HPF MISYS Crystals Mucous Urine Present (A) NEG /LPF MISYS Specimen Anatomical Collection Method Collection Time Receive d Time (Source) Location / / Volume Laterality 02/28/2010 10:39 02/28/2010 PM CDT 10:50 PM CDT Nakul Westfall MD LAB - URINE ORDERABLES Performing Organization Address [facility] Phon e Number MISYS HCG qualitative urine (02/28/2010 10:39 PM CDT) P athologist Signature HCG Qual Urine Negative NEG MISYS Comment: This test provides a presumptive diagno sis of or non-. A confirmed diagnosis should on ly be made by a physician after all clinical and laboratory findings have b een evaluated. Specimen Anatomical Collection Method Collection Time Receive d Time (Source) Location / / Volume Laterality 02/28/2010 10:39 02/28/2010 PM CDT 10:50 PM CDT Nakul Westfall MD LAB - URINE ORDERABLES Performing Organization Address [facility] Phon e Number MISYS Urine culture (02/28/2010 10:39 PM CDT) Patholo gist Method Time Signature Specimen Midstream Urine MISYS Description Culture Micro >100,000 MISYS colonies/mL Diptheroids Comment: Susceptibility testing not rout inely performed Micro Report Status FINAL 03/02/2010 MIS YS Specimen Anatomical Collection Method Collection Time Receive d Time (Source) Location / / Volume Laterality 02/28/2010 10:39 03/01/2010 6:44 PM CDT AM CDT Jayden Lewis MD LAB - MICRO GENERAL ORDERABL ES Performing Organization Address City/State/ZIP Code Phon e Number MISYS documented in this encounter Visit Diagnoses Not on filedocumented in this encounter Care Teams Manager Renewable Energy Relationship Specialty Start Date End Date Janis Cuellar MD PCP - General 07/08/01 10/12/19 [address] [place] [address] documented as of this encounter
--- OUTSIDE RECORDS SUMMARY | 2022-04-25 22:26 | XMS_ITS | Encounter Summary ---
:1985 Author Organization [place] Address [address] [place] [id number] Care Team Providers Name Role Phone Janis Cuellar MD Primary Care Provider Encounter Details Date Type Department Care Team Description 05/15/2009 Results Only [facility] Gallo Joaquin MD Hospital Results [facility] [address] [facility] [address] [place], [place] [address] (Wo rk) Social History Tobacco Use Types [...] Associated Diagnosis Comme nts CT SCAN Routine 05/15/2009 1:02 AM Results f or this ABDOMEN/PELVIS QUICK PRINT OPERATOR procedure are in the results section. documented in this encounter Results CT SCAN ABDOMEN/PELVIS (05/15/2009 1:02 AM QUICK PRINT OPERATOR) Anatomical Region Laterality Modality Other Specimen (Source) Anatomical Collection Method Collection Time Re ceived Time Location / / Volume Laterality 05/15/2009 1:02 AM QUICK PRINT OPERATOR Impressions 05/15/2009 9:[address] ABDOMEN/PELVIS WITHOUT CONTRAST ??May 15, 2009 1:02 AM HISTORY: Flank pain. TECHNIQUE: Noncontrast CT abdomen and pe lvis was performed. COMPARISON: 01/08/2006. FINDINGS: 0.3 cm subpleural left lower l obe nodule, image 5 series 2. Prominent right-sided intrarenal calculi , enlarged since 2005, and increased in number. The largest single calculus is in the mid right kidney measuring up to 1.1 cm, image 27 series 2. There are other prominent groupings of smaller calculi s cattered throughout the right renal collecting system. Left kidney marizol ws fewer intrarenal calculi, with only a single stone seen at the lef t lower pole measuring 0.2 cm, image 37 series 2. No convincing intraureteral calculi iden tified. However, there is mild right-sided hydroureter suggested on the study. Two calcifications within the pelvis are stable since 2005 consistent with phleboliths. 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 No inflammatory dutton e of the kidneys identified. There is some mild to moderate right upp er pole calyceal dilatation, suggested on image 27 series 3 that may be related to obstruction from the 1.1 cm right renal pelvis calculus. No bladder calculi. No bowel obstruction. Appendix is not cl early identified. Noncontrast-enhanced imaging of the live r, gallbladder, adrenals, spleen, and pancreas are unremarkable. N oncontrast imaging of the cardiac base shows decreased attenuation of the fat within blood within the ventricles. This can be seen in the setting of anemia. No aggressive bony lesions. Both ovaries ap pear enlarged. IMPRESSION: 1. Increased size and number of right-si ded intrarenal calculi. The largest measures 1.1 cm and may cause so me partial obstruction of the right upper pole calyx. 2. Suggestion of mild right-sided hydrou reter without an obstructing calculus. Perhaps this represents recent passage of a renal calculus from the right collecting system. 3. 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 Tiny left lower pole intrarenal calculus. 4. 0.3 cm subpleural nodular density at the left lower lobe base may represent a tiny pulmonary nodule. 5. Decreased attenuation of the blood wi thin the ventricles may represent anemia. 6. Enlarged appearing ovaries is nonspec ific. Pelvic ultrasound could provide further assessment if clinically indicated. Gallo Joaquin MD [employer] IMAGING STUDIES documented in this encounter Visit Diagnoses Not on filedocumented in this encounter Care Teams Marker Machine Relationship Specialty Start Date End Date Janis Cuellar MD PCP - General 07/08/01 10/12/19 [address] [place] [address] documented as of this encounter
--- OUTSIDE RECORDS SUMMARY | 2022-04-25 22:26 | XMS_ITS | Encounter Summary ---
:1985 Author Organization [place] Address [address] [place] [address] Care Team Providers Name Role Phone Janis Cuellar MD Primary Care Provider Encounter Details Date Type Department Care Team Description 05/18/2009 Historic Notes INTERFACED REPORT Interface, Transcript on, MD Social History Tobacco Use Types Packs/Day Years Used Date Smoking Tobacco: Never Alcohol Use Standard Drinks/Week Comments Yes 0 (1 standard drink = 0.6 oz pure alcoho l) casual Sex Assigned at Date Recorded Not on file documented as of this encounter Progress Notes Interface, Pilot Submersible - 08/08/2010 1:15 PM CDT Notification - Notified Person:: MD - Notified Persons Dr. [facility] Name: - Notification Talked with Physician Interaction:: - Comments:: MD had been paged about this patient to see BONNY. read CT results to MD, most recent white count and creatinine and patient's kidney stone history. MD aware patient currently has UTI. decided to have urologist see patient tomorrow since he doesn't believe she is acute and in need of a stent at this time. ARELI Montgomery (RN)[Signed 13:24] Authored: Notification documented in this encounter Plan of Treatment Not on filedocumented as of this encounter Visit Diagnoses Not on filedocumented in this encounter Care Teams Digital Sales Representative Relationship Specialty Start Date End Date Janis Cuellar MD PCP - General 07/08/01 10/12/19 [address] [place] [address] documented as of this encounter
--- OUTSIDE RECORDS SUMMARY | 2022-04-25 22:27 | XMS_ITS | Encounter Summary ---
:1985 Author Organization [place] Address [address] [place] [address] Care Team Providers Name Role Phone Rodolfo Cuellar MD Primary Care Provider Reason for Visit Reason Comments RECHECK F/U from ER. was in hospital for 2 days. Encounter Details Date Type Department Care Team Description 06/23/2007 Office Visit [facility] Rodolfo Cuellar MD IRON DEFIC ANEMIA NOS (Primary Dx); [facility] [place] [address] URIN TRACT INFECTION NOS; [address] [place] [address] [address] [place], [place] [phone] (Work) [phone] Social History Tobacco Use Types Packs/Day Years Used Date Smoking Tobacco: Never Alcohol Use Standard Drinks/Week Comments Yes 0 (1 standard drink = 0.6 oz pure alcoho l) casual Sex Assigned at Date Recorded Not on file documented as of this encounter Last Filed Vital Signs Vital Sign Reading Time Taken Comments Blood Pressure 100/60 06/23/2007 11:15 AM MANAGER MEDICAL DEVICE Pulse 60 06/23/2007 11:15 AM MANAGER MEDICAL DEVICE Temperature - - Respiratory Rate - - Oxygen Saturation - - Inhaled Oxygen Concentration - - Weight 57.2 kg (126 lb) 06/23/2007 11:15 AM MANAGER MEDICAL DEVICE Height 175.3 cm (5' 9) 06/23/2007 11:15 AM MANAGER MEDICAL DEVICE Body Mass Index 18.61 06/23/2007 11:15 AM MANAGER MEDICAL DEVICE documented in this encounter Progress Notes Rodolfo Cuellar - 07/02/2007 9:33 AM MANAGER MEDICAL DEVICE Addended by: RODOLFO CUELLAR on: 07/02/2007 9:33:10 AM Modules accepted: Orders GER MEDICAL DEVICE Rodolfo Cuellar - 06/23/2007 11:47 AM CST Subjective: Estefania Mckeon is a 22 year old female who presents for follow-up of hospitalization for anemia. She had transfusions and was seen by hematology. She was also seen by gynecology. Current concerns: 1. She was advised to take her OC daily and skip the placebo. She reports she has been having bleeding since about the second week of taking Alesse. She is in her second pack. 2. Anemia: she is taking iron bid. She has some fatigue, but not severe at this time. 3. UTI: she was treated for UTI last month, retreated in the hospital and felt her symptoms were better but then she notes some increase. Patient Active Problem List Diagnoses Code ??? IRON DEFIC ANEMIA NOS 280.9 Current outpatient prescriptions Medication Sig ??? LOESTRIN FE TABS 30-75-1.5 MCG-MG-MG OR ONE DAILY ??? FERROUS SULFATE 325 MG OR CAPS 1 CAP BID Objective: Patient alert in NAD BP 100/60 Pulse 60 Ht 5' 9 (1.75m) Wt 126 lbs (57.2kg) Not examined. UC from hospital reveals urine grew e.coli and strep group B. Assessment/Plan: 1. Menorrhagia: recommend change OC to Loestrin to try to stop the bleeding. 2. Anemia: recheck iron and hgb today. 3. UTI: change to Keflex. GER MEDICAL DEVICE documented in this encounter Nursing Notes 06/23/2007 11:15 AM CST >> ALESSIA EUCEAD 06/23/2007 11:27 am Patient presents with: RECHECK - F/U from ER. was in hospital for 2 days. Initial BP 100/60 Pulse 60 Ht 5' 9 (1.75m) Wt 126 lbs (57.2kg) Body mass index is 18.60 kg/(m^2).. BP completed using cuff size regular Alessia Euceda/RENAN documented in this encounter Plan of Treatment Not on filedocumented as of this encounter Procedures Procedure Name Priority Date/Time Associated Comments Diagnosis HCL HEMOGLOBIN STAT 06/23/2007 11:44 AM Iron Defic Anemia R esults for this NONLAB MANAGER MEDICAL DEVICE Nos procedure are i n the results section. HCL IRON Routine 06/23/2007 11:44 AM Iron Defic Anemia Res ults for this MANAGER MEDICAL DEVICE Nos procedure are i n the results section. documented in this encounter Results (ABNORMAL) IRON (06/23/2007 11:44 AM MANAGER MEDICAL DEVICE) P athologist Signature Iron 22 (L) 35 - 180 [facility] ug/dL [facility] Specimen Anatomical Collection Method Collection Time Receive d Time (Source) Location / / Volume Laterality 06/23/2007 11:44 06/23/2007 AM MANAGER MEDICAL DEVICE 11:49 AM MANAGER MEDICAL DEVICE Rodolfo Cuellar MD LABORATORY Performing Organization Address City/State/ZIP Code Phon e Number [facility] [address] [place] [address] [facility] (ABNORMAL) HGB (06/23/2007 11:44 AM MANAGER MEDICAL DEVICE) P athologist Signature Hemoglobin 10.2 (L) 11.7 - 15.7 [place] g/dL [facility] Comment: Results confirmed by repeat prateek t Specimen Anatomical Collection Method Collection Time Receive d Time (Source) Location / / Volume Laterality 06/23/2007 11:44 06/23/2007 AM MANAGER MEDICAL DEVICE 11:49 AM MANAGER MEDICAL DEVICE Rodolfo Cuellar MD LABORATORY Performing Organization Address City/[facility]/ZIP Code Phon e Number [facility] [address] [place], [place] [address] [address] [facility] documented in this encounter Visit Diagnoses Diagnosis Iron deficiency anemia, unspecified - Pr imary Urinary tract infection, site not specif ied Irregular menstrual cycle documented in this encounter Care Teams Product Design Engineer Relationship Specialty Start Date End Date Rodolfo Cuellar MD PCP - General 07/08/01 10/12/19 [address] [place] [address] documented as of this encounter
--- OUTSIDE RECORDS SUMMARY | 2022-04-25 22:27 | XMS_ITS | Encounter Summary ---
:1985 Author Organization [place] Address [address] [place] [address] Care Team Providers Name Role Phone Janis Cuellar MD Primary Care Provider Encounter Details Date Type Department Care Team Description 10/12/2007 Telephone [facility] Tracey Cuellar MD [place] [address] [facility] [address] [place] [address] [address] [place] [address] [phone] Social History Tobacco Use Types Packs/Day Years Used Date Smoking Tobacco: Never Alcohol Use Standard Drinks/Week Comments Yes 0 (1 standard drink = 0.6 oz pure alcoho l) casual Sex Assigned at Date Recorded Not on file documented as of this encounter Miscellaneous Notes Telephone Encounter - Alessia Vargas - 10/17/2007 2:12 PM CDT Patient showed up at front window cashier and I talked to her about not getting a letter from Dr Cuellar about missing school. Alessia Vargas/RENAN Telephone Encounter - Alessia Vargas - 10/13/2007 2:28 PM CDT Left message on answering machine for patient. Alessia Vargas/RENAN Telephone Encounter - Janis Cuellar - 10/13/2007 8:45 AM CDT Her hgb is not severly reduced, see result messge also. I wonder if there are other problems causingher fatigue. Overall she should be seen or may consider checking with [facility] for low cost care, but should be evaluated about her symptoms. Telephone Encounter - Alessia Vargas - 10/12/2007 4:06 PM CDT Take to Beth and and told her the below info. She was asking if you could write a letter for [employer] explaing a little as to why she ismissing so much school? She is going to [email or web address]. Alessia Vargas/RENAN Telephone Encounter - Janis Cuellar - 10/12/2007 2:59 PM CDT Okay to check; can do just hgb without irons. There is an order in already. Telephone Encounter - Stefani Sapp - 10/12/2007 2:54 PM CDT Pt's mother calling because she thinks pt is anemic again. She is pale and has no energy. She has noinsurance and mother is wondering if she can have hgb checked. documented in this encounter Plan of Treatment Not on filedocumented as of this encounter Visit Diagnoses Not on filedocumented in this encounter Care Teams Senior Product Engineer Relationship Specialty Start Date End Date Janis Cuellar MD PCP - General 07/08/01 10/12/19 [address] [place] [address] documented as of this encounter
--- OUTSIDE RECORDS SUMMARY | 2022-04-25 22:27 | XMS_ITS | Encounter Summary ---
:1985 Author Organization [place] Address [address] [place] [address] Care Team Providers Name Role Phone Rodolfo Cuellar MD Primary Care Provider Encounter Details Date Type Department Care Team Description 05/12/2007 Orders Only [facility] IRO N DEFIC ANEMIA NOS; [facility] URIN TRACT INFECTION NOS [address] [place] [address] Social History Tobacco Use Types Packs/Day Years Used Date Smoking Tobacco: Never Alcohol Use Standard Drinks/Week Comments Yes 0 (1 standard drink = 0.6 oz pure alcoho l) casual Sex Assigned at Date Recorded Not on file documented as of this encounter Progress Notes Rodolfo Cuellar - 05/12/2007 5:08 PM LATEX FOAM WORKER Addended by: RODOLFO CUELLAR on: 05/12/2007 5:08:11 PM Modules accepted: Orders X FOAM WORKER Lizbet James - 05/12/2007 4:57 PM LATEX FOAM WORKER Addended by: LIZBET JAMES on: 05/12/2007 4:57:09 PM Modules accepted: Orders X FOAM WORKER documented in this encounter Plan of Treatment Not on filedocumented as of this encounter Procedures Procedure Name Priority Date/Time Associated Comments Diagnosis ZZCL AFF RETICULOCYTE Routine 05/12/2007 8:48 AM Iron Defic An emia Results for this COUNT LATEX FOAM WORKER Nos procedure are i n the results section. HCL HEMOGLOBIN NONLAB Routine 05/12/2007 8:48 AM Iron Defic An emia Results for this LATEX FOAM WORKER Nos procedure are i n the results section. documented in this encounter Results RETICULOCYTE COUNT (05/12/2007 8:48 AM LATEX FOAM WORKER) Patholo gist Method Time Signature % Retic 1.1 0.5 - 2.0 [place] % [facility] Absolute 45.3 25 - 95 [place] Retic 10e9/L [facility] Method Automated [facility] Specimen Anatomical Collection Method Collection Time Receive d Time (Source) Location / / Volume Laterality 05/12/2007 8:48 AM 7 8:53 LATEX FOAM WORKER AM LATEX FOAM WORKER Rodolfo Cuellar MD LABORATORY Performing Organization Address City/State/ZIP Code Phon e Number [facility] [address] [place], [place] [address] [facility] (ABNORMAL) HGB (05/12/2007 8:48 AM LATEX FOAM WORKER) P athologist Signature Hemoglobin 7.3 (LL) 11.7 - 15.7 [place] g/dL [facility] Comment: Results confirmed by repeat prateek t Specimen Anatomical Collection Method Collection Time Receive d Time (Source) Location / / Volume Laterality 05/12/2007 8:48 AM 7 8:53 LATEX FOAM WORKER AM LATEX FOAM WORKER Rodolfo Cuellar MD LABORATORY Performing Organization Address City/[facility]/ZIP Code Phon e Number [facility] [address] [place], [place] [address] [address] [facility] documented in this encounter Visit Diagnoses Diagnosis Iron deficiency anemia, unspecified Urinary tract infection, site not specif ied documented in this encounter Care Teams Record Press Operator Relationship Specialty Start Date End Date Rodolfo Cuellar MD PCP - General 07/08/01 10/12/19 [address] [place] [address] documented as of this encounter
--- OUTSIDE RECORDS SUMMARY | 2022-04-25 22:27 | XMS_ITS | Encounter Summary ---
:1985 Author Organization [place] Address [address] [place] [address] Care Team Providers Name Role Phone Janis Cuellar MD Primary Care Provider Encounter Details Date Type Department Care Team Description 06/01/2007 Historic Results INTERFACED REPORT Tomy Whelan MD [facility] [address] [place], [place] [address] (Wo rk) Social History [...] Date/Time Associated Comments Diagnosis TRANSFUSE RBC STAT 06/01/2007 7:09 PM Results for this SENIOR QUALITY MANAGER procedure are i n the results section. ROUTINE UA WITH STAT 06/01/2007 7:06 PM Result s for this MICROSCOPIC SENIOR QUALITY MANAGER procedure are i n the results section. URINE CULTURE Routine 06/01/2007 7:06 PM Results for this SENIOR QUALITY MANAGER procedure are i n the results section. HEMOGRAM DIFFERENTIAL STAT 06/01/2007 6:05 PM Results for this AND PLATELET SENIOR QUALITY MANAGER procedure are i n the results section. RETICULOCYTE COUNT Routine 06/01/2007 6:05 PM Res ults for this SENIOR QUALITY MANAGER procedure are i n the results section. INR STAT 06/01/2007 6:05 PM Results f or this SENIOR QUALITY MANAGER procedure are i n the results section. IRON AND IRON BINDING Routine 06/01/2007 6:05 PM Results for this CAPACITY SENIOR QUALITY MANAGER procedure are i n the results section. HGB EVAL REFLEX TO Routine 06/01/2007 6:05 PM Res ults for this ELP OR RBC SOLUBILITY SENIOR QUALITY MANAGER proced ure are in the results section. HCG QUALITATIVE STAT 06/01/2007 6:05 PM Result s for this SENIOR QUALITY MANAGER procedure are i n the results section. FERRITIN Routine 06/01/2007 6:05 PM Results f or this SENIOR QUALITY MANAGER procedure are i n the results section. ABO/RH TYPE AND STAT 06/01/2007 6:05 PM Result s for this SCREEN SENIOR QUALITY MANAGER procedure are i n the results section. BASIC METABOLIC PANEL STAT 06/01/2007 6:05 PM Results for this SENIOR QUALITY MANAGER procedure are i n the results section. documented in this encounter Results Transfuse RBC (06/01/2007 7:09 PM SENIOR QUALITY MANAGER) [facility] Method Time Signature RED BLOOD CELL Order MISYS ORDER received Comment: Check for Allocated/OK to Naylor sfuse units Specimen Anatomical Collection Method Collection Time Receive d Time (Source) Location / / Volume Laterality 06/01/2007 7:09 PM 8 6:49 SENIOR QUALITY MANAGER PM SENIOR QUALITY MANAGER Tomy Whelan MD LAB - BLOOD BANK PRODUCT ORD ER Performing Organization Address City/State/ZIP Code Phon e Number MISYS (ABNORMAL) Routine UA with microscopic (06/01/2007 7:06 PM SENIOR QUALITY MANAGER) [facility] Method Time Signature Source Midstream MISYS Urine Color Urine Light Yellow MISYS Appearance Urine Slightly MISYS Cloudy Glucose Urine Negative NEG mg/dL MISYS Bilirubin Urine Negative NEG MISYS Ketones Urine 5 (A) NEG mg/dL MISYS Specific Huger 1.013 1.003 - MISYS Urine 1.035 Blood Urine Trace (A) NEG MISYS pH Urine 6.5 5.0 - 7.0 MISYS pH Protein Albumin Negative NEG mg/dL MISYS Urine Urobilinogen Normal 0.0 - 2.0 MISYS mg/dL mg/dL Nitrite Urine Positive (A) NEG MISYS Leukocyte Moderate (A) NEG MISYS Esterase Urine WBC Urine 98 (H) 0 - 2 MISYS /HPF RBC Urine 10 (H) 0 - 2 MISYS /HPF Squamous 1 0 - 1 MISYS Epithelial /HPF /HPF Urine Renal Tub Epi <1 (A) NEG /HPF MISYS Mucous Urine Present (A) NEG /LPF MISYS Specimen Anatomical Collection Method Collection Time Receive d Time (Source) Location / / Volume Laterality 06/01/2007 7:06 PM 8 5:49 SENIOR QUALITY MANAGER PM SENIOR QUALITY MANAGER Tomy Whelan MD LAB - URINE ORDERABLES Performing Organization Address City/State/ZIP Code Phon e Number MISYS Urine culture (06/01/2007 7:06 PM SENIOR QUALITY MANAGER) Component Value Ref Test Analysis Performed At [facility] gist Range Method Time Signature Specimen Midstream Urine MISYS Description Culture Micro >100,000 MISYS colonies/mL Staphylococcus aureus Comment: >100,000 colonies/mL Beta hemolytic Stre ptococcus group B Group B Streptococci are susceptible to ampicillin, penicillin, and cefazolin, but may be erythromycin and/or clindamy olegario resistant. Contact Microbiology if your patient is allergic to penicillin and you need erythromycin and/or clindamycin testing to be performed. Gordon sceptibility testing must be requested within 5 days. Clindamycin and Erythrom ycin are not routinely prescribed for isolates from the urinary tract. Sent final report to [facility] lab delmer rhodes on 06.05.07 Micro Report Status FINAL 06/05/2007 MIS YS Specimen Anatomical Collection Method Collection Time Receive d Time (Source) Location / / Volume Laterality 06/01/2007 7:06 PM 8 7:57 SENIOR QUALITY MANAGER PM SENIOR QUALITY MANAGER Organism Antibiotic Method Susceptibility >100,000 colonies/ml Clindamycin <=0.25 Susc eptible staphylococcus aureus (pamela) >100,000 colonies/ml Ciprofloxacin <=0.5 Susce ptible staphylococcus aureus (pamela) >100,000 colonies/ml Erythromycin <=0.25 Susc eptible staphylococcus aureus (pamela) >100,000 colonies/ml Nitrofurantoin <=16 Suscep tible staphylococcus aureus (pamela) >100,000 colonies/ml Gentamicin <=0.5 Susce ptible staphylococcus aureus (pamela) >100,000 colonies/ml Levofloxacin <=0.12 Susc eptible staphylococcus aureus (pamela) >100,000 colonies/ml Oxacillin <=0.25 Susc eptible staphylococcus aureus (pamela) >100,000 colonies/ml Penicillin >=0.5 Resis tant staphylococcus aureus (pamela) >100,000 colonies/ml Trimethoprim/Sulfamethoxazol <=.5/9.5 Susceptible staphylococcus aureus (pamela) e >100,000 colonies/ml Tetracycline <=1 Suscept ible staphylococcus aureus (pamela) >100,000 colonies/ml Comment: See comment below staphylococcus aureus (pamela) Comment: Clindamycin and Erythromycin are not routinely prescribed for isolates from the urinary tract. >100,000 colonies/ml staphylococcus aureus (pamela) Vancomycin <=1 Susceptible Janis Cuellar MD LAB - MICRO GENERAL ORDERABL ES Performing Organization Address City/State/ZIP Code Phon e Number MISYS (ABNORMAL) Hemogram differential and platelet (06/01/2007 6:05 PM SENIOR QUALITY MANAGER) P athologist Signature MCV 62 (L) 78 - 100 fl MISYS MCH 17.7 (L) 26.5 - 33.0 MISYS pg MCHC 28.6 (L) 31.5 - 36.5 MISYS g/dL Comment: Reviewed, acceptable RDW 21.2 (H) 10.0 - 15.0 % MISYS WBC 10.1 4.0 - 11.0 10e9/L MISYS RBC Count 4.40 3.8 - 5.2 10e12/L MISYS Hemoglobin 7.8 (LL) 11.7 - 15.7 g/dL MISYS Comment: Critical Value called to and read back kristin CLANCY IN ERA @ 1840 06/01/07 JCB Hematocrit 27.3 (L) 35.0 - 47.0 % MISYS % Neutrophils 84 (H) 40 - 75 % MISYS % Lymphocytes 10 (L) 20 - 48 % MISYS % Monocytes 5 0 - 12 % MISYS % Eosinophils 1 0 - 6 % MISYS Platelet Count 396 150 - 450 10e9/L MISYS Absolute Neutrophil 8.5 (H) 1.6 - 8.3 10e9/L MIS YS Absolute Lymphocytes 1.0 0.8 - 5.3 10e9/L [place] SYS Absolute Monocytes 0.5 0.0 - 1.3 10e9/L MISY S Absolute Eosinophils 0.1 0.0 - 0.7 10e9/L [place] SYS Platelet Estimate Normal MISYS Diff Method Manual Differential MISYS Anisocytosis Moderate MISYS Microcytes Present MISYS Hypochromasia Present MISYS Specimen Anatomical Collection Method Collection Time Receive d Time (Source) Location / / Volume Laterality 06/01/2007 6:05 PM 8 5:49 SENIOR QUALITY MANAGER PM SENIOR QUALITY MANAGER Tomy Whelan MD LAB - BLOOD ORDERABLES Performing Organization Address City/[facility]/ZIP Code Phon e Number MISYS INR (06/01/2007 6:05 PM SENIOR QUALITY MANAGER) athologist Signature INR 1.00 0.86 - 1.14 MISYS Specimen Anatomical Collection Method Collection Time Receive d Time (Source) Location / / Volume Laterality 06/01/2007 6:05 PM 8 5:49 SENIOR QUALITY MANAGER PM SENIOR QUALITY MANAGER Tomy Whelan MD LAB - BLOOD ORDERABLES Performing Organization Address [facility] Phon e Number MISYS Basic metabolic panel (06/01/2007 6:05 PM SENIOR QUALITY MANAGER) P athologist Signature Sodium 138 133 - 144 MISYS mmol/L Potassium 3.8 3.4 - 5.3 MISYS mmol/L Chloride 105 94 - 109 MISYS mmol/L Carbon Dioxide 22 20 - 32 MISYS mmol/L Glucose 78 60 - 99 MISYS mg/dL Urea Nitrogen 10 5 - 24 MISYS mg/dL Creatinine 0.75 0.60 - MISYS 1.30 mg/dL GFR Estimate >90 >60 MISYS mL/min/1.7 m2 GFR Estimate If >90 >60 MISYS Black mL/min/1.7 m2 Calcium 9.2 8.5 - 10.4 MISYS mg/dL Anion Gap 11 6 - 17 MISYS mmol/L Specimen Anatomical Collection Method Collection Time Receive d Time (Source) Location / / Volume Laterality 06/01/2007 6:05 PM 8 5:49 SENIOR QUALITY MANAGER PM SENIOR QUALITY MANAGER Tomy Whelan MD LAB - BLOOD ORDERABLES Performing Organization Address [facility]/ZIP Code Phon e Number MISYS HCG qualitative (06/01/2007 6:05 PM SENIOR QUALITY MANAGER) [facility] gist Method Time Signature HCG Qualitative Negative NEG MISYS Serum Specimen Anatomical Collection Method Collection Time Receive d Time (Source) Location / / Volume Laterality 06/01/2007 6:05 PM 8 5:49 SENIOR QUALITY MANAGER PM SENIOR QUALITY MANAGER Tomy Whelan MD LAB - BLOOD ORDERABLES Performing Organization Address City/[facility]/ZIP Code Phon e Number MISYS Hgb with reflex to ELP or RBC solubility (06/01/2007 6:05 PM SENIOR QUALITY MANAGER) athologist Signature Hemoglobin A1 97.3 MISYS Comment: Reference range: 94.3 to 98.5 Unit: % Hemoglobin A2 2.2 MISYS Comment: Reference range: 1.5 to 3.7 Unit: % (Note) Patients with the combination of iron-de ficiency anemia and beta-thalassemia may clinically pres ent with normal A2 level. An elevated HgB A2 cannot be u sed to screen for beta-thalassemia in these cases. Hemoglobin F 0.5 MISYS Comment: Reference range: 0.0 to 2.0 Unit: % Hemoglobin S Eval 0.0 MISYS Comment: Reference range: 0.0 to 0.0 Unit: % Hemoglobin C 0.0 MISYS Comment: Reference range: 0.0 to 0.0 Unit: % Hemoglobin E 0.0 MISYS Comment: Reference range: 0.0 to 0.0 Unit: % HGB Abn Evaluation NOT APPL MISYS Comment: (Note) Performed by [facility], [address] [place] [id number] [email or web address], ??Zac Scott MD - Lab. Director Hemoglobin Other 0.0 MISYS Comment: Reference range: 0.0 to 0.0 Unit: % Specimen Anatomical Collection Method Collection Time Receive d Time (Source) Location / / Volume Laterality 06/01/2007 6:05 PM 8 8:19 SENIOR QUALITY MANAGER PM SENIOR QUALITY MANAGER Tomy Whelan MD LAB - BLOOD ORDERABLES Performing Organization Address City/[facility] Phon e Number MISYS (ABNORMAL) Iron and iron binding capacity (06/01/2007 6:05 PM SENIOR QUALITY MANAGER) athologist Signature Iron 10 (L) 35 - 180 MISYS ug/dL Iron Binding 581 (H) 240 - 430 MISYS Cap ug/dL Iron Saturation 2 (L) 15 - 46 % MISYS Index Specimen Anatomical Collection Method Collection Time Receive d Time (Source) Location / / Volume Laterality 06/01/2007 6:05 PM 8 SENIOR QUALITY MANAGER 10:01 PM SENIOR QUALITY MANAGER Tomy Whelan MD LAB - BLOOD ORDERABLES Performing Organization Address [facility] Phon e Number MISYS (ABNORMAL) Ferritin (06/01/2007 6:05 PM SENIOR QUALITY MANAGER) athologist Signature Ferritin 4 (L) 10 - 120 MISYS ng/mL Specimen Anatomical Collection Method Collection Time Receive d Time (Source) Location / / Volume Laterality 06/01/2007 6:05 PM 8 SENIOR QUALITY MANAGER 10:01 PM SENIOR QUALITY MANAGER Tomy Whelan MD LAB - BLOOD ORDERABLES Performing Organization Address [facility] Phon e Number MISYS Reticulocyte count (06/01/2007 6:05 PM SENIOR QUALITY MANAGER) [facility] gist Method Time Signature % Retic 1.3 0.5 - 2.0 MISYS % Absolute 59.0 25 - 95 MISYS Retic 10e9/L Retic Method Automated MISYS Method Specimen Anatomical Collection Method Collection Time Receive d Time (Source) Location / / Volume Laterality 06/01/2007 6:05 PM 8 SENIOR QUALITY MANAGER 10:01 PM SENIOR QUALITY MANAGER Tomy Whelan MD LAB - BLOOD ORDERABLES Performing Organization Address [facility] Phon e Number MISYS ABO/Rh type and screen (06/01/2007 6:05 PM SENIOR QUALITY MANAGER) [facility] Method Time Signature ABO O MISYS RH(D) Pos MISYS Antibody Neg MISYS Screen Units Ordered 2 MISYS Crossmatch Red Blood MISYS Cells Specimen 06/04/2007 MISYS Expires Unit Number [id number] MISYS Blood Red Blood MISYS Component Type Cells Leukocyte Reduced Status of Unit ISSUED,FINAL MISYS Unit Number [id number] MISYS Blood Red Blood MISYS Component Type Cells Leukocyte Reduced Status of Unit ISSUED,FINAL MISYS Specimen Anatomical Collection Method Collection Time Receive d Time (Source) Location / / Volume Laterality 06/01/2007 6:05 PM 8 5:49 SENIOR QUALITY MANAGER PM SENIOR QUALITY MANAGER Tomy Whelan MD LAB - BLOOD BANK TEST ORDER Performing Organization Address City/[facility] Phon e Number MISYS documented in this encounter Visit Diagnoses Not on filedocumented in this encounter Care Teams Ticketing Clerk Relationship Specialty Start Date End Date Janis Cuellar MD PCP - General 07/08/01 10/12/[address] [place] [address] documented as of this encounter
--- OUTSIDE RECORDS SUMMARY | 2022-04-25 22:27 | XMS_ITS | Encounter Summary ---
:1985 Author Organization [place] Address [address] [place] [address] Care Team Providers Name Role Phone Janis Cuellar MD Primary Care Provider Encounter Details Date Type Department Care Team Description 04/05/2008 Historic Results [facility] Janis Cuellar MD [place] [address] [facility] [address] [place] [address] [place], [place] [phone] (Wo rk) [address] [phone] Social History Tobacco Use Types Packs/Day Years Used Date Smoking Tobacco: Never Alcohol Use Standard Drinks/Week Comments Yes 0 (1 standard drink = 0.6 oz pure alcoho l) casual Sex Assigned at Date Recorded Not on file documented as of this encounter Plan of Treatment Not on filedocumented as of this encounter Procedures Procedure Name Priority Date/Time Associated Diagnosis Comme nts ABO/RH TYPE AND Routine 04/05/2008 9:45 AM Result s for this SCREEN CORPORATION LAWYER procedure are i n the results section. documented in this encounter Results ABO/Rh type and screen (04/05/2008 9:45 AM CORPORATION LAWYER) [facility] Method Time Signature ABO O MISYS RH(D) Pos MISYS Antibody Neg MISYS Screen Units Ordered 2 MISYS Crossmatch Red Blood MISYS Cells Specimen 04/08/2008 MISYS Expires Unit Number [id number] MISYS Blood Red Blood MISYS Component Type Cells Leukocyte Reduced Status of Unit ISSUED,FINAL MISYS Unit Number [id number] MISYS Blood Red Blood MISYS Component Type Cells Leukocyte Reduced Status of Unit ISSUED,FINAL MISYS Specimen Anatomical Collection Method Collection Time Receive d Time (Source) Location / / Volume Laterality 04/05/2008 9:45 AM 8 9:33 CORPORATION LAWYER AM CORPORATION LAWYER Janis Cuellar MD LAB - BLOOD BANK TEST ORDER Performing Organization Address City/State/ZIP Code Phon e Number MISYS documented in this encounter Visit Diagnoses Not on filedocumented in this encounter Care Teams Medical Attendant Relationship Specialty Start Date End Date Janis Cuellar MD PCP - General 07/08/01 10/12/19 [address] [facility] [address] [place] [address] documented as of this encounter
--- OUTSIDE RECORDS SUMMARY | 2022-04-25 22:27 | XMS_ITS | Encounter Summary ---
:1985 Author Organization [place] Address [address] [place] [address] Care Team Providers Name Role Phone Janis Cuellar MD Primary Care Provider Reason for Visit Reason Comments Patient Request patient is still dealing wit h fatigue. Encounter Details Date Type Department Care Team Description 10/20/2007 Office Visit [facility] Janis Cuellar MD Fatigue; [facility] [place] [address] IRON DEFIC ANEMIA NOS [address] [place], [place] [address] [address] [place], [place] [phone] (Wo rk) [address] [phone] Social History Tobacco Use Types Packs/Day Years Used Date Smoking Tobacco: Never Alcohol Use Standard Drinks/Week Comments Yes 0 (1 standard drink = 0.6 oz pure alcoho l) casual Sex Assigned at Date Recorded Not on file documented as of this encounter Last Filed Vital Signs Vital Sign Reading Time Taken Comments Blood Pressure 105/60 10/20/2007 1:30 PM CDT Pulse 70 10/20/2007 1:30 PM CDT Temperature - - Respiratory Rate - - Oxygen Saturation - - Inhaled Oxygen Concentration - - Weight 60.1 kg (132 lb 6.4 oz) 10/20/2007 1:30 PM CDT Height 175.3 cm (5' 9) 10/20/2007 1:30 PM CDT Body Mass Index 19.55 10/20/2007 1:30 PM CDT documented in this encounter Progress Notes Janis Cuellar - 10/21/2007 1:34 PM CDT Subjective: Estefania Mckeon is a 22 year old female who presents with complaints of ongoing fatigue. She had recent hgb which was 9.4, but feels as tired as when it was in the 7s. She is eating well. She is working during the day, but that schedule has been a little less. She is in [place] [place], has to stand alot and finds herself getting very tired after a few hours. She sometimes naps during the day. She has gotten up to bathroom a few times at night; she has been drinking a lot of fluid per her mother's pushing to avoid UTI. She is taking the iron tid. Patient Active Problem List Diagnoses Code ??? IRON DEFIC ANEMIA NOS 280.9 Current outpatient prescriptions Medication Sig ??? LOESTRIN FE TABS 30-75-1.5 MCG-MG-MG OR ONE DAILY ??? FERROUS SULFATE 325 MG OR CAPS 1 CAP BID History Substance Use Topics ??? Tobacco Use: Never ??? Alcohol Use: Yes casual ROS: no fever, chills, recent URI or other acute illnesses, no sore throat, cough, dyspnea on exertion, chest pains, abdominal symptoms, bowel changes. She does not feel depressed, not hopeless, good concentration most of the time. She does not have anhedonia., no change in eating or sleep. Objective: Patient alert in NAD BP 105/60 Pulse 70 Ht 5' 9 (1.753 m) Wt 132 lb 6.4 oz (60.056 kg) No cervical adenopathy or thyromegaly. Assessment/Plan: 1. Fatigue: may be from anemia, but level seems high. She is not having any other symptoms to suggest any other process. Recommend check glucose given polyuria which may just be due to fluid intake. Recheck hgb to be sure not dropping significantly. Recommend take Vit C with each iron for better absorp tion, if not improving consider change to niferex brand. Letter for school given. documented in this encounter Nursing Notes 10/20/2007 1:30 PM CDT >> ALESSIA García October 20, 2007 1:35 PM Patient presents with: Patient Request - patient is still dealing with fatigue. Initial BP 105/60 Pulse 70 Ht 5' 9 (1.753 m) Wt 132 lb 6.4 oz (60.056 kg) Body mass index is 19.55 kg/(m^2).. BP completed using cuff size regular Alessia Vargas/RENAN documented in this encounter Plan of Treatment Not on filedocumented as of this encounter Procedures Procedure Name Priority Date/Time Associated Comments Diagnosis HCL HEMOGLOBIN Routine 10/20/2007 2:12 PM IRON DEFIC ANEMIA Re sults for this NONLAB CDT NOS procedure are i n the results section. HCL GLUCOSE Routine 10/20/2007 2:12 PM Fatigue Results f or this CDT procedure are i n the results section. documented in this encounter Results (ABNORMAL) HGB (10/20/2007 2:12 PM CDT) athologist Signature Hemoglobin 9.6 (L) 11.7 - 15.7 COUNT INCLUDES [facility] g/dL [facility] Comment: Results confirmed by repeat prateek t Specimen Anatomical Collection Method Collection Time Receive d Time (Source) Location / / Volume Laterality 10/20/2007 2:12 PM 8 2:17 CDT PM CDT Janis Cuellar MD LABORATORY Performing Organization Address [facility] Phon e Number [facility] [address] [place], [place] [address] [address] [facility] GLUCOSE (10/20/2007 2:12 PM CDT) athologist Signature Glucose 94 60 - 99 [facility] mg/dL CLINIC LAB Specimen Anatomical Collection Method Collection Time Receive d Time (Source) Location / / Volume Laterality 10/20/2007 2:12 PM 8 2:17 CDT PM CDT Janis Cuellar MD LABORATORY Performing Organization Address [facility] Phon e Number [facility] [address] [place], [place] [address] [address] [facility] documented in this encounter Visit Diagnoses Diagnosis Fatigue Other malaise and fatigue IRON DEFIC ANEMIA NOS Iron deficiency anemia, unspecified documented in this encounter Care Teams Mortgage Counselor Relationship Specialty Start Date End Date Janis Cuellar MD PCP - General 07/08/01 10/12/19 [address] [facility] [address] [place], [place] [address] documented as of this encounter
--- OUTSIDE RECORDS SUMMARY | 2022-04-25 22:27 | XMS_ITS | Encounter Summary ---
:1985 Author Organization [place] Address [address] [place] [address] Care Team Providers Name Role Phone Janis Cuellar MD Primary Care Provider Reason for Visit Reason Onset Date Comments UTI 11/10/2007 antibiotic question Encounter Details Date Type Department Care Team Description 11/10/2007 Telephone [facility] Janis Cuellar MD UTI (antibiotic Clinic [place] [address] question) [address] [place] [address] [place], [place] [phone] (Wo rk) [address] [phone] Social History Tobacco Use Types Packs/Day Years Used Date Smoking Tobacco: Never Alcohol Use Standard Drinks/Week Comments Yes 0 (1 standard drink = 0.6 oz pure alcoho l) casual Sex Assigned at Date Recorded Not on file documented as of this encounter Miscellaneous Notes Telephone Encounter - Janis Cuellar - 11/10/2007 12:23 PM CDT Agree with plan. Will check results Tuesday. Telephone Encounter - Tammy Renteria - 11/10/2007 11:45 AM CDT I just spoke with pt, who states that she thinks she was in the hospital overnight about at month ago, where she received blood, and an antibiotic. She is not sure what medication it was, or if she hadan antibiotic after discharge. I looked in [facility], but I couldn't see anything relating to a UTI. Pt states that her symptoms come and go, she thinks that she has never cleared the original infection. I advised her to start the Cipro until her UC comes back. Pt was not sure of details or dates, I couldn't find out much. Telephone Encounter - Janis Cuellar - 11/10/2007 11:08 AM CDT When was she last treated and where? Do her symptoms resolve when on treatment? The last UC I see was in May and the bacterium was susceptible. If her symptoms go away with treatment and it is more than a few weeks between infections she should start the med. If she was treated within the past month with cipro and it did not help, I will change the medication. I will check on the UC results Tuesday; keep this open. Telephone Encounter - Tammy Renteria - 11/10/2007 10:40 AM CDT Pts mother called stating that pt had went into the ER last evening (11/08) due to UTI symptoms. In the ER they did a UA which was positive, and a UC that is pending (I just checked FCIS). The ER gave pt a prescription for Cipro, which pt has had 5 rounds of, (per mother). Mother is wondering if pt should start the Cipro, or should she wait until the UC comes back? (since the infection doesn't seem felicity clearing with the Cipro, her mom is concerned with starting it). She would like your input, sinceyou are aware of pts situation. Moms # is [phone]. documented in this encounter Plan of Treatment Not on filedocumented as of this encounter Visit Diagnoses Not on filedocumented in this encounter Care Teams Executive Advisor Relationship Specialty Start Date End Date Janis Cuellar MD PCP - General 07/08/01 10/12/19 [address] EGAN [address] [place] [address] documented as of this encounter
--- OUTSIDE RECORDS SUMMARY | 2022-04-25 22:27 | XMS_ITS | Encounter Summary ---
:1985 Author Organization [facility] Address [address] [place] [address] Care Team Providers Name Role Phone Janis Cuellar MD Primary Care Provider Reason for Visit Reason Comments UTI Encounter Details Date Type Department Care Team Description 04/12/2008 Allied Health/Nurse Health [facility] UTI Visit [place] [address] [place] [address] Social History Tobacco Use Types Packs/Day Years Used Date Smoking Tobacco: Never Alcohol Use Standard Drinks/Week Comments Yes 0 (1 standard drink = 0.6 oz pure alcoho l) casual Sex Assigned at Date Recorded Not on file documented as of this encounter Nursing Notes 04/12/2008 2:30 PM CST >> KARELY García Apr 12, 2008 1:52 PM Nurse only appt. Pt c/o back pain, dysura, urinary frequency. SLizbet Story RN documented in this encounter Plan of Treatment Not on filedocumented as of this encounter Procedures Procedure Name Priority Date/Time Associated Comments Diagnosis HCL CULTURE, URINE Routine 04/12/2008 2:04 PM Dysuria Res ults for this (MISYS) COMPUTER COMPOSITOR procedure are i n the results section. HCL URINALYSIS WITH Routine 04/12/2008 2:03 PM Dysuria Re sults for this MICROSCOPIC COMPUTER COMPOSITOR procedure are i n the results section. documented in this encounter Results CULTURE, URINE (MISYS) (04/12/2008 2:04 PM COMPUTER COMPOSITOR) [facility] Method Time Signature Specimen Midstream [facility] Description Urine [facility] Culture Micro >100,000 [place] colonies/mL [facility] pneumoniae Report status FINAL [place] 04/13/2008 [facility] Specimen Anatomical Collection Method Collection Time Receive d Time (Source) Location / / Volume Laterality 04/12/2008 2:04 PM 8 2:09 COMPUTER COMPOSITOR PM COMPUTER COMPOSITOR Organism Antibiotic Method Susceptibility >100,000 colonies/ml Amoxicillin/Clav 4 Suscepti ble klebsiella pneumoniae (pamela) >100,000 colonies/ml Ampicillin >=32 Resist ant klebsiella pneumoniae (pamela) >100,000 colonies/ml Cefazolin <=4 Suscept ible klebsiella pneumoniae (pamela) >100,000 colonies/ml Ceftriaxone <=1 Suscept ible klebsiella pneumoniae (pamela) >100,000 colonies/ml Cefuroxime Axetil 4 Suscept ible klebsiella pneumoniae (pamela) >100,000 colonies/ml Ciprofloxacin <=0.25 Susc eptible klebsiella pneumoniae (pamela) >100,000 colonies/ml Gentamicin <=1 Suscept ible klebsiella pneumoniae (pamela) >100,000 colonies/ml Levofloxacin <=0.25 Susc eptible klebsiella pneumoniae (pamela) >100,000 colonies/ml Nitrofurantoin 128 Resista nt klebsiella pneumoniae (pamela) >100,000 colonies/ml Ticarcillin >=128 Resis tant klebsiella pneumoniae (pamela) >100,000 colonies/ml Ticarcillin/Clav <=8 Suscep tible klebsiella pneumoniae (pamela) >100,000 colonies/ml Tobramycin <=1 Suscept ible klebsiella pneumoniae (pamela) >100,000 colonies/ml Trimethoprim/Sulfamethoxazole <=1/19 Susceptible klebsiella pneumoniae (pamela) >100,000 colonies/ml Cefotaxime Deduced Gina ceptible klebsiella pneumoniae (pamela) Jermaine De Leon MD LABORATORY Performing Organization Address City/State/ZIP Code Phon e Number [facility] [address] [address] [facility] (ABNORMAL) UA WITH MICRO (04/12/2008 2:03 PM COMPUTER COMPOSITOR) [facility] Method Time Signature Color Urine Yellow [facility] Appearance Urine Cloudy [facility] Glucose Urine Negative NEG mg/dL [facility] Bilirubin Urine Negative NEG [facility] Ketones Urine Negative NEG mg/dL [facility] Specific [place] 1.020 1.003 - [place] Urine 1.035 [facility] pH Urine 7.0 5.0 - 7.0 [place] pH [facility] Protein Albumin 30 (A) NEG mg/dL [facility] Urobilinogen 0.2 0.2 - 1.0 [place] Urine EU/dL [facility] Nitrite Urine Negative NEG [facility] Blood Urine Trace (A) NEG [facility] Leukocyte Large (A) NEG [place] Esterase Urine [facility] Source Midstream [facility] WBC Urine >100 (A) 0 - 2 [place] /[facility] RBC Urine O - 2 0 - 2 [facility] Bacteria Urine Many (A) NEG /HPF [facility] Specimen Anatomical Collection Method Collection Time Receive d Time (Source) Location / / Volume Laterality 04/12/2008 2:03 PM 8 2:08 COMPUTER COMPOSITOR PM COMPUTER COMPOSITOR Jermaine De Leon MD LABORATORY Performing Organization Address City/State/ZIP Code Phon e Number [facility] [address] [place], [place] [address] [address] [facility] documented in this encounter Visit Diagnoses Diagnosis Dysuria - Primary documented in this encounter Care Teams Seismograph Shooter Relationship Specialty Start Date End Date Janis Cuellar MD PCP - General 07/08/01 10/12/19 [address] [place] [address] documented as of this encounter
--- OUTSIDE RECORDS SUMMARY | 2022-04-25 22:27 | XMS_ITS | Encounter Summary ---
:1985 Author Organization [facility] Address [address] [place] [address] Care Team Providers Name Role Phone Janis Cuellar MD Primary Care Provider Encounter Details Date Type Department Care Team Description 04/04/2008 Orders Only [facility] IRO N DEFIC ANEMIA NOS [facility] [address] [place] [address] Social History Tobacco Use [...] Date/Time Associated Comments Diagnosis HCL HEMOGLOBIN Routine 04/04/2008 3:43 PM IRON DEFIC ANEMIA Re sults for this NONLAB HEALTH AND WELLNESS COORDINATOR NOS procedure are i n the results section. documented in this encounter Results (ABNORMAL) HGB (04/04/2008 3:43 PM HEALTH AND WELLNESS COORDINATOR) P athologist Signature Hemoglobin 6.7 (LL) 11.7 - 15.7 [facility] g/dL [facility] Comment: Results confirmed by repeat prateek t Specimen Anatomical Collection Method Collection Time Receive d Time (Source) Location / / Volume Laterality 04/04/2008 3:43 PM 8 3:48 HEALTH AND WELLNESS COORDINATOR PM HEALTH AND WELLNESS COORDINATOR Janis Cuellar MD LABORATORY Performing Organization Address City/State/ZIP Code Phon e Number [facility] [address] [place], [place] [address] [address] [facility] documented in this encounter Visit Diagnoses Diagnosis IRON DEFIC ANEMIA NOS Iron deficiency anemia, unspecified documented in this encounter Care Teams Grain Oilseed Or Pasture Farm Worker Relationship Specialty Start Date End Date Janis Cuellar MD PCP - General 07/08/01 10/12/19 [address] [place] [address] documented as of this encounter
--- OUTSIDE RECORDS SUMMARY | 2022-04-25 22:27 | XMS_ITS | Encounter Summary ---
:1985 Author Organization [facility] Address [address] [place] [address] Care Team Providers Name Role Phone Janis Cuellar MD Primary Care Provider Encounter Details Date Type Department Care Team Description 11/09/2007 Emergency room [facility] Results [address] [place] [address] Social History Tobacco Use Types Packs/Day Years Used Date Smoking Tobacco: Never Alcohol Use Standard Drinks/Week Comments Yes 0 (1 standard drink = 0.6 oz pure alcoho l) casual Sex Assigned at Date Recorded Not on file documented as of this encounter Progress Notes Interface, Marketing Area Manager - 11/16/2007 3:18 PM CDT FINAL CHIEF COMPLAINT: I have suprapubic pain and pain with urination. HISTORY OF PRESENT ILLNESS: A 22-year-old female with a history of frequent urinary tract infections states that she has had symptoms for about a week or two. She states she just could not stand it anymore. She has had pressure on and off in her suprapubic area with pain with urination. No recent urinary tract infections, not in the last month anyway. She has had 1 maybe several months ago. No feveror back pain. No nausea or vomiting. No blood in her urine. Rates her discomfort as 6/10. REVIEW OF SYSTEMS: Ten-point review of systems is negative except as noted in her HPI. PAST MEDICAL HISTORY: Significant for anemia, history of frequent urinary tract infections. MEDICATIONS: control pills. ALLERGIES: Amoxicillin. SOCIAL HISTORY: She is a nonsmoker. PHYSICAL EXAMINATION: VITAL SIGNS: Blood pressure 121/77, pulse 100, respirations 16, temperature 96.8 and O2 sat 100%. GENERAL: She is an awake, alert female, sitting upright. HEENT: Sclerae nonicteric. She has fair eye contact. Mucous membranes are moist. NECK: Supple. LUNGS: Clear. HEART: Regular rate and rhythm. ABDOMEN: Soft and nondistended. Bowel sounds are present. No peritoneal signs or guarding, no rightlower quadrant tenderness. GENITOURINARY: Deferred. EXTREMITIES: Without cyanosis or edema. SKIN: Without petechiae or rash. NEUROLOGIC: She has easily palpable pulses in all 4 extremities. Neurologically, no focal deficits. LABORATORY AND RADIOGRAPHIC EXAMINATION: Urinalysis reveals positive nitrites, trace blood, moderate leukocyte esterase, 51 WBCs, moderate amount of bacteria. EMERGENCY DEPARTMENT COURSE: I talked with her about placing her on Cipro because of her frequent UTIs. I will send her urinalysis for culture. She is to return with vomiting or fever or severe abdominal pain. Her clinical history is consistent with cystitis. I do not think she has clinical symptoms consistent with pyelonephritis or intestinal infection. DIAGNOSIS: Acute cystitis. Electronically signed on 11/16/2007 15:18 by NAZARIO SPARROW MD MT: [id number] Name: ESTEFANIA MCKEON MRN: [id number] Account: [id number] : 1985 Visit Date: 11/09/2007 Document: [id number] cc: Janis Cuellar MD documented in this encounter Plan of Treatment Not on filedocumented as of this encounter Visit Diagnoses Not on filedocumented in this encounter Care Teams Sign Language Teacher Relationship Specialty Start Date End Date Janis Cuellar MD PCP - General 07/08/01 10/12/19 [address] [facility] [address] [place] [address] documented as of this encounter
--- OUTSIDE RECORDS SUMMARY | 2022-04-25 22:27 | XMS_ITS | Encounter Summary ---
:1985 Author Organization [facility] Address [address] [place] [address] Care Team Providers Name Role Phone Janis Cuellar MD Primary Care Provider Encounter Details Date Type Department Care Team Description 06/01/2007 Emergency room Tomy Coker MD [facility] [place] [address] [place], [place] [address] (Wo rk) Social History Tobacco Use Types Packs/Day Years Used Date Smoking Tobacco: Never Alcohol Use Standard Drinks/Week Comments Yes 0 (1 standard drink = 0.6 oz pure alcoho l) casual Sex Assigned at Date Recorded Not on file documented as of this encounter Progress Notes Tomy Coker - 06/08/2007 5:54 PM PHLEBOTOMY TECHNICIAN FINAL CHIEF COMPLAINT: This is a 22-year-old female who has been having problems with low hemoglobin. Shewas here earlier last year and transfused for 2 units packed red cells with a hemoglobin of 4.9. At that time she had very heavy vaginal bleeding, passing clots and was very symptomatic. She does admit that she has intermittently very heavy periods. She has had iron studies and indicesdone which show iron deficiency anemia. She has had anemia characterized by a hypochromic microcyticpicture was reticulocytosis. She has been taking iron replacement. Her last hemoglobin was in late 04/2007, was in the 7-point range. She comes in today, waking this morning feeling extremely weak and light-headed, feeling like she is going to pass out. She states she has been eating and drinking normally and stooling normally. PAST MEDICAL HISTORY: As outlined above, history of kidney stones. MEDICATIONS: Iron supplementation. ALLERGIES: Allergic to amoxicillin. SOCIAL HISTORY: Lives with a roommate, works full-time and goes to school boyfriend is here, mom mickey. Nonsmoker. No illicit drugs or alcohol. REVIEW OF SYSTEMS: See HPI. No chest pain. All other systems negative. OBJECTIVE: VITAL SIGNS: Temperature is 98.6, heart rate 117, respiratory rate 16, blood pressure 117/70, room air sat 100% CONSTITUTIONAL: When I had her sitting up, her heart rate was 120 and she is feeling lightheaded. PERRL. EOMI. Markedly pale conjunctiva. SKIN: Warm, pale and dry. HEENT: Dry oral mucosa. Nares patent. NECK: No adenopathy. CARDIOVASCULAR: Tachycardic S1, S2 with no murmur or added sounds. RESPIRATORY: No increased work of breathing. LUNGS: Clear. GASTROINTESTINAL: Abdomen soft and nontender. NEUROLOGIC: Mental status as above. Cranial nerves II through XII grossly intact. No focal motor orsensory deficits present. EMERGENCY ROOM COURSE: CBC with differential obtained today showed a hemoglobin of 7.8, which is comparable 7.3 in late April, 05/12. She has a hypochromic microcytic picture with an RDW that suggest reticulocytosis. INR is normal. Basic metabolic profile normal. test negative. She is O positive. She was given 1 liter of normal saline. I typed and crossed her for 2 units. I am going to contact [facility] for admission for symptomatic anemia. DIAGNOSES: 1. Iron deficiency anemia. 2. Weakness, light-headedness, near-syncope. PLAN: As outlined above. CRITICAL CARE TIME: 1 hour. Electronically signed on 06/08/2007 17:53 by TOMY COKER MD MT: [id number] Name: ESTEFANIA MCKEON MRN: [id number] Account: [id number] : 1985 Visit Date: 06/01/2007 Document: [id number] BOTOMY TECHNICIAN documented in this encounter Plan of Treatment Not on filedocumented as of this encounter Visit Diagnoses Not on filedocumented in this encounter Care Teams Release Of Information Specialist Relationship Specialty Start Date End Date Janis Cuellar MD PCP - General 07/08/01 10/12/19 [address] [facility] [address] [place], [place] [phone] documented as of this encounter
--- OUTSIDE RECORDS SUMMARY | 2022-04-25 22:27 | XMS_ITS | Encounter Summary ---
:1985 Author Organization [facility] Address [address] [place] [address] Care Team Providers Name Role Phone Janis Cuellar MD Primary Care Provider Encounter Details Date Type Department Care Team Description 06/02/2007 Historic Notes INTERFACED REPORT Interface, Transcript on, Social History Tobacco Use Types Packs/Day Years Used Date Smoking Tobacco: Never Alcohol Use Standard Drinks/Week Comments Yes 0 (1 standard drink = 0.6 oz pure alcoho l) casual Sex Assigned at Date Recorded Not on file documented as of this encounter Progress Notes Interface, Coffin Maker - 08/10/2010 5:02 AM CDT Patient Status Patient Status - Physical status Stable (s/s of potential complications absent or manageable) - Psychosocial status Stable Discharge Planning - Discharge From: [facility] - Patient Care Unit: [place] [id number] - Discharge To: Home/Alternative home - Method of discharge: Wheel Chair - Transportation: Private Discharge Information Discharge Information - Discharge information Discharge instructions reviewed with pt/family/so; Prescriptions given - Accompanied by Parent - Mode of Travel Wheelchair Special Care Needs and Instructions - Symptoms/Problems to look Signs of bleeding for at home- call the Pelvic Ultrasound as Outpatient physician about: - Who patient should call: Dr. Cuellar [phone] Follow Up Care Physician Appointments - Physician/clinician name: Dr. Cuellar - - When to see 4-6 weeks physician/clinician: - Physician/clinician name: Dr. Evelia Sandy - - Physician/clinician name: Dr. De Leon - Wallace PORRAS, ALYSSA M (RN)[Signed 14:41] Authored: Patient Status, Discharge Planning, Discharge Information, Special Care Needs and Instructions, Follow Up Care Interface, Coffin Maker - 08/10/2010 5:02 AM CDT Nutrition Assessment Nutrition Assessment - Reason for assessment Admission screen Anthropometrics - Height: 69 - Admission weight: 56.4kg - IBW ([place] body weight): 65.9kg - % IBW ([place] body weight): 86% - Dosing weight: 56.4kg - Comments:: Pt is thin. Nutrition Prescription Nutrition Prescription - Nutrition Prescription: Regular Diet - Comments:: Observed pt eating 2 slices of pizza, diet adv from clears to Regular and pt was very happy to eat solid foods. Pt reports having a good appetite, and nausea resolved. Nutrition History Nutrition History - Nutrition history: Pts mom states she is not a picky eater, she eats a lot when she eats but sometimes doesn't have time to eat and skips meals. Pt with anemia, encouraged iron rich foods. Labs/Medications Labs/Medications - Labs: Reviewed - Medications: Reviewed - Medication comments: Ferrous Sulfate, Levaquin Physical Findings Physical Findings - Physical findings Other <free text>, Anemia - Comments: Nausea resolved per pt. Feels much better. Estimated Needs Estimated Needs - Energy needs: 1692-1974kcal (30-35kcal/kg- increased kcal needs to help promote wt gain) - Protein needs: 68-79g pro (1.2-1.4g/kg) - Fluid needs: 1692-1974mL fluid (30-35mL/kg) Nutrition Diagnosis Nutrition Diagnosis - Nutrition diagnosis: Pt at risk for inadequate oral food/beverage intake related to previously nauseated with poor po intake, however, appetite good per pt. Interventions Interventions - Interventions: Visited with pt and gave handout on coping with nausea. Pt reports nausea resolved , but left handout for pt if she begins to experience this at another time. ENcouraged pt to eat three balanced meals a day, and include iron rich foods. - Goals: 1. Pt to consume >75% of meals. - Follow-up: Monitor po intake, wt changes, labs. - Recommendations: 1. No recs at this time . Signatures CHAVA CHARLES (RD, LD)[Signed 14:40] Authored: Nutrition Assessment, Anthropometrics, Nutrition Prescription, Nutrition History, Labs/Medications, Physical Findings, Estimated Needs, Nutrition Diagnosis, Interventions documented in this encounter Plan of Treatment Not on filedocumented as of this encounter Visit Diagnoses Not on filedocumented in this encounter Care Teams Heel Seam Rubber Relationship Specialty Start Date End Date Janis Cuellar MD PCP - General 07/08/01 10/12/19 [address] [facility] [address] [place], [place] [address] documented as of this encounter
--- OUTSIDE RECORDS SUMMARY | 2022-04-25 22:27 | XMS_ITS | Encounter Summary ---
:1985 Author Organization [facility] Address [address] [place] [address] Care Team Providers Name Role Phone Janis Cuellar MD Primary Care Provider Reason for Visit Reason Comments Back Pain Lower back, thinks it is the kidney area hurts wheather she sits or lays down, started the night of h er infusion Encounter Details Date Type Department Care Team Description 04/09/2008 Office Visit [facility] Janis Cuellar MD Back Strain (Primary [facility] [place] [address] Dx) [address] [place], [place] [address] [address] [place], [place] [phone] (Wo rk) [address] [phone] Social History Tobacco Use Types Packs/Day Years Used Date Smoking Tobacco: Never Alcohol Use Standard Drinks/Week Comments Yes 0 (1 standard drink = 0.6 oz pure alcoho l) casual Sex Assigned at Date Recorded Not on file documented as of this encounter Last Filed Vital Signs Vital Sign Reading Time Taken Comments Blood Pressure 105/70 04/09/2008 2:15 PM CARRIAGE DOGGER Pulse 72 04/09/2008 2:15 PM CARRIAGE DOGGER Temperature - - Respiratory Rate - - Oxygen Saturation - - Inhaled Oxygen Concentration - - Weight 59.7 kg (131 lb 9.6 oz) 04/09/2008 2:15 PM CARRIAGE DOGGER Height 174 cm (5' 8.5) 04/09/2008 2:15 PM CARRIAGE DOGGER Body Mass Index 19.72 04/09/2008 2:15 PM CARRIAGE DOGGER documented in this encounter Progress Notes Janis Cuellar - 04/09/2008 2:54 PM CST Subjective: Estefania Mckeon is a 22 year old female who presents with complaints of pain back it started aftertransfusions Tuesday. The transfusions went fine, but after she went home the back was very sore. Shehas aching pain with sharp pains that shoot across the low back. She did not feel well after the blood with some nausea. She had a period for 1.5 days that was early. She has some fever the next day. The pain has not improved yet. She notes no urinary symptoms., no blood and it is not darker than normal. Patient Active Problem List Diagnoses Code ??? IRON DEFIC ANEMIA NOS 280.9 Current outpatient prescriptions Medication Sig ??? CYCLOBENZAPRINE HCL 10 MG OR TABS 1 po QHS prn ??? LOESTRIN FE 1.5 TABS 30-75-1.5 MCG-MG-MG OR ONE DAILY ??? FERROUS SULFATE 325 MG OR CAPS 1 CAP BID ??? MACROBID 100 MG OR CAPS ONE CAPSULE TWICE DAILY Objective: Patient alert in NAD BP 105/70 Pulse 72 Ht 5' 8.5 (1.74 m) Wt 131 lb 9.6 oz (59.693 kg) Back: moderate tenderness of lumbar muscles, pain with ROM. Assessment/Plan: 1. LBP: myofascial strain, reassured, otc tylenol for pain, flexeril prn for spasm, heat, discussed stretches and back care. IAGE DOGGER documented in this encounter Nursing Notes 04/09/2008 2:15 PM CST >> ALESSIA Correa Apr 09, 2008 2:33 PM Patient presents with: Back Pain - Lower back, thinks it is the kidney area hurts wheather she sits or lays down, started the night of her infusion Initial BP 105/70 Pulse 72 Ht 5' 8.5 (1.74 m) Wt 131 lb 9.6 oz (59.693 kg) Body mass index is19.72 kg/(m^2).. BP completed using cuff size regular Alessia Vargas/RENAN documented in this encounter Plan of Treatment Not on filedocumented as of this encounter Visit Diagnoses Diagnosis Back strain - Primary Sprain of unspecified site of back documented in this encounter Care Teams Motor Vehicle Licence Examiner Relationship Specialty Start Date End Date Janis Cuellar MD PCP - General 07/08/01 10/12/19 [address] [place] [address] documented as of this encounter
--- OUTSIDE RECORDS SUMMARY | 2022-04-25 22:27 | XMS_ITS | Encounter Summary ---
:1985 Author Organization [place] Address [address] [place] [address] Care Team Providers Name Role Phone Janis Cuellar MD Primary Care Provider Encounter Details Date Type Department Care Team Description 06/01/2007 Historic Notes INTERFACED REPORT Interface, Transcript on, Social History Tobacco Use Types Packs/Day Years Used Date Smoking Tobacco: Never Alcohol Use Standard Drinks/Week Comments Yes 0 (1 standard drink = 0.6 oz pure alcoho l) casual Sex Assigned at Date Recorded Not on file documented as of this encounter Progress Notes Interface, Net Mender - 08/10/2010 5:04 AM CDT General Information General Information - <R> How to be addressed Estefania - <R> Frame Fixer Needed No Patient Contact Information - <R> salesperson handbags to Beth Mckeon notify: - <R> Phone 1: [phone] - salesperson handbags #2: Kin Mckeon - Phone 1: [phone] Advance Directive Advanced Health Care Directive Information - <R> Do you have a Advance No Health Care Directive? - Can patient name a Yes Surrogate Decision Maker? (Not legally binding) - Surrogate Name: Beth Mckeon - <R> Would you like to No receive information about Advanced Directives? Valuables Valuables - Valuables Yes - Type of Valuables Shirt; Pants; Underclothing; Shoes; Socks; Cell phone Health and Illness History Health and Illness History - <R> Reason for Blood levels are off admission/chief complaint as stated by patient Previous reaction to anesthesia - Previous reaction to No anesthesia Allergies Drug ?? Amoxicillin;Hives, Active Substance Use Tobacco Use - <R> Tobacco Use None Caffeine Use - <R> Caffeine Use Yes - Caffeine Type Pop/soda Alcohol Use - <R> History of Alcohol Use Yes Street/Recreational Drug Use - <R> History of No Street/Recreational Drug Use Transfusion History Transfusion History - Blood No Avoidance/Restrictions - Previous blood transfusion Yes - Previous transfusion No reaction Review of Systems Cardiac - Cardiac Problems No Pulmonary - Pulmonary Problems No Peripheral Vascular - Peripheral Vascular Yes Problems - Peripheral Vascular Anemia Conditions/Symptoms Neuro-Muscular - Neuro Muscular Problems No ENT - ENT Problems No GI - GI Problems No Bowel Program - Bowel Program No - Problems Yes - Conditions/Problems UTI Bladder Program - Bladder Program No Skin - Skin Problems No Immune - <R> Immune Problems No - <R> Immunizations Current Immunizations current Endocrine - <R> Endocrine Problems No Mental Health - <R> Mental Health Problems No Cognitive Perceptual Sensory Deficits/Cognition - <R> Alterations in No Sensation - <R> Vision Problems No - <R> Hearing Problems No - <R> Use of Sensory No Assistive Devices - <R> Reading Problems No - <R> Communication Problems No - <R> Changes in thought No Process/Behavior Activity-Exercise/Self Care Functional Screen - <R> Ambulation 0 - Independent with ambulation - <R> Transferring 0 - Independent with transfers - <R> Toileting 0- Independent with toileting - <R> Bathing 0- Independent with bathing - <R> Dressing 0- Independent with dressing - <R> Eating 0- Independent with eating - <R> Swallowing none - <R> Fall history within No history of falls last six months - <R> Which of the above None functional risks had a recent onset or change? Nutrition/Metabolic Diet Information - Diet Regular Nutrition Risk Screen - <R> Nutrition Risk Screen Eating less than 50% of their meals greater than 5 days prior to admission Sleep/Relaxation Sleep Pattern - <R> Problems Sleeping No Role Relationships Abuse Risk Screen - <R> QUESTION TO PATIENT: No. Are you now or have you ever been in a relationship where you have been abused physically, emotionally or sexually? - <R> NURSE OBSERVATION: Is No there reasonable cause to believe the patient has been abused, assaulted, is self abusive, neglected or exploited? Coping-Stress Tolerance Coping-Stress - <R> Have you had a recent No major change/significant loss/stressor in your life Values/Beliefs/Spiritual Care Values/Beliefs/Spiritual Care - <R> Would you like pastoral Patient/Family will contact yazidi care/clergy/spiritual support person advisor notified? Mutuality/Individual Preferences Mutuality/Preferences - <R> What information would will let us know help us give you more personalized care? - <R> What if any limitations None on visitors, TV or phone calls would you like Signatures CHAVA CHARLES (RD, LD)[Signed 14:28] Authored: Nutrition/Metabolic ALYSSA PORRAS (RN)[Signed 14:09] Authored: Role Relationships AUGUSTO QUESADA (RATE REVIEWER)[Signed 20:50] Authored: General Information, Advance Directive, Valuables, Health and Illness History, Allergies, Substance Use, Transfusion History, Review of Systems, Cognitive Perceptual, Activity-Exercise/Self Care, Nutrition/Metabolic, Sleep/Relaxation, Coping-Stress Tolerance, Values/Beliefs/Spiritual Care, Mu tuality/Individual Preferences documented in this encounter Plan of Treatment Not on filedocumented as of this encounter Visit Diagnoses Not on filedocumented in this encounter Care Teams Associate Director Of Development Relationship Specialty Start Date End Date Janis Cuellar MD PCP - General 07/08/01 10/12/19 [address] [place] [address] documented as of this encounter
--- OUTSIDE RECORDS SUMMARY | 2022-04-25 22:27 | XMS_ITS | Encounter Summary ---
:1985 Author Organization [place] Address [address] [place] [address] Care Team Providers Name Role Phone Janis Cuellar MD Primary Care Provider Reason for Visit Reason Onset Date Comments Erroneous encounter-disregard 06/14/2008 Encounter Details Date Type Department Care Team Description 04/08/2008 Telephone [facility] Janis Cuellar MD Erroneous Clinic [place] [address] encounter-disregard [address] [place] [address] [place], [place] [phone] (Wo rk) [address] [phone] Social History Tobacco Use Types Packs/Day Years Used Date Smoking Tobacco: Never Alcohol Use Standard Drinks/Week Comments Yes 0 (1 standard drink = 0.6 oz pure alcoho l) casual Sex Assigned at Date Recorded Not on file documented as of this encounter Plan of Treatment Not on filedocumented as of this encounter Visit Diagnoses Not on filedocumented in this encounter Care Teams Senior Corporate Accountant Relationship Specialty Start Date End Date Janis Cuellar MD PCP - General 07/08/01 10/12/19 [address] [place] [address] documented as of this encounter
--- OUTSIDE RECORDS SUMMARY | 2022-04-25 22:27 | XMS_ITS | Encounter Summary ---
:1985 Author Organization [facility] Address [address] [place] [address] Care Team Providers Name Role Phone Janis Cuellar MD Primary Care Provider Encounter Details Date Type Department Care Team Description 04/12/2008 Office Visit [facility] Jermaine De Leon [facility] MD Natalie ENCOUNTER--DISREGARD [place] RETIRED (Primary Dx) [address] [place] [phone] Social History Tobacco Use Types Packs/Day Years Used Date Smoking Tobacco: Never Alcohol Use Standard Drinks/Week Comments Yes 0 (1 standard drink = 0.6 oz pure alcoho l) casual Sex Assigned at Date Recorded Not on file documented as of this encounter Progress Notes Jermaine De Leon - 04/12/2008 2:27 PM CST This encounter was opened in error. Please disregard. ET RAILWAY LINE INSTALLER documented in this encounter Plan of Treatment Not on filedocumented as of this encounter Visit Diagnoses Diagnosis ERRONEOUS ENCOUNTER--DISREGARD - Primary documented in this encounter Care Teams Track Laying Equipment Operator Relationship Specialty Start Date End Date Janis Cuellar MD PCP - General 07/08/01 10/12/19 [address] [facility] [address] [place] [address] documented as of this encounter
--- OUTSIDE RECORDS SUMMARY | 2022-04-25 22:27 | XMS_ITS | Encounter Summary ---
:1985 Author Organization [facility] Address [address] [place] [address] Care Team Providers Name Role Phone Janis Cuellar MD Primary Care Provider Encounter Details Date Type Department Care Team Description 04/28/2007 Telephone [facility] Tracey Cuellar MD [place] [address] [place] [address] [address] [place], [place] [phone] Social History Tobacco Use Types Packs/Day Years Used Date Smoking Tobacco: Never Alcohol Use Standard Drinks/Week Comments Yes 0 (1 standard drink = 0.6 oz pure alcoho l) casual Sex Assigned at Date Recorded Not on file documented as of this encounter Miscellaneous Notes Telephone Encounter - Sarah Rebolledo - 04/28/2007 4:32 PM CST Pt advised of lab results and advice. RINTENDENT CAR CONSTRUCTION documented in this encounter Plan of Treatment Not on filedocumented as of this encounter Visit Diagnoses Diagnosis Iron deficiency anemia, unspecified documented in this encounter Care Teams Hat Band Attacher Relationship Specialty Start Date End Date Janis Cuellar MD PCP - General 07/08/01 10/12/[address] [place] [address] documented as of this encounter
--- OUTSIDE RECORDS SUMMARY | 2022-04-25 22:27 | XMS_ITS | Encounter Summary ---
:1985 Author Organization [place] Address [address] [place] [address] Care Team Providers Name Role Phone Janis Cuellar MD Primary Care Provider Reason for Visit Reason Comments Consult Would like to discuss going on a BC pill. Encounter Details Date Type Department Care Team Description 05/18/2007 Office Visit [facility] Janis Cuellar MD CONTRACEPTIVE [facility] [place] [address] [facility] (Primary Dx) [address] [place], [place] [address] [address] [place], [place] [phone] [address] (Work) [phone] Social History Tobacco Use Types Packs/Day Years Used Date Smoking Tobacco: Never Alcohol Use Standard Drinks/Week Comments Yes 0 (1 standard drink = 0.6 oz pure alcoho l) casual Sex Assigned at Date Recorded Not on file documented as of this encounter Last Filed Vital Signs Vital Sign Reading Time Taken Comments Blood Pressure 95/55 05/18/2007 11:45 AM UMBRELLA FRAME MAKER Pulse 74 05/18/2007 11:45 AM UMBRELLA FRAME MAKER Temperature - - Respiratory Rate - - Oxygen Saturation - - Inhaled Oxygen Concentration - - Weight 56.1 kg (123 lb 9.6 oz) 05/18/2007 11:45 AM UMBRELLA FRAME MAKER Height 174 cm (5' 8.5) 05/18/2007 11:45 AM UMBRELLA FRAME MAKER Body Mass Index 18.52 05/18/2007 11:45 AM UMBRELLA FRAME MAKER documented in this encounter Progress Notes Janis Cuellar - 05/21/2007 6:25 PM CST Subjective: Estefania Mckeon is a 21 year old female who presents with request to initiate contraception. She is now sexually active and also would like to control heavy periods. She has some cramping and dysmenorrhea. She has not been on contraceptives before. Patient Active Problem List Diagnoses Code ??? IRON DEFIC ANEMIA NOS 280.9 Current outpatient prescriptions Medication Sig ??? ALESSE TABS 20-0.1 MCG-MG OR ONE DAILY ??? FERROUS SULFATE 325 MG OR CAPS 1 CAP BID ??? IRON 28 MG OR TABS None Entered History Substance Use Topics ??? Tobacco Use: Never ??? Alcohol Use: Yes casual Objective: Patient alert in NAD BP 95/55 Pulse 74 Ht 5' 8.5 (1.74m) Wt 123 lbs 9.6 oz (56.1kg) Not examined. Assessment/Plan: 1. Contraception need: discussed various contraceptives including depoprovera, nuvaring, non-medicaldevices and oral contraceptives. Discussed side effects, risks and benefits. Discussed symptoms of blood clots and recommend immediate evaluation for any of these. Start Alesse. 25 minutes spent with the patient, >50% of time spent counseling ELLA FRAME MAKER documented in this encounter Nursing Notes 05/18/2007 11:45 AM CST >> ALESSIA EUCEDA 05/18/2007 12:00 pm Patient presents with: Consult - Would like to discuss going on a BC pill. Initial BP 95/55 Pulse 74 Ht 5' 8.5 (1.74m) Wt 123 lbs 9.6 oz (56.1kg) Body mass index is 18.52 kg/(m^2).. BP completed using cuff size regular Alessia Euceda/RENAN documented in this encounter Plan of Treatment Not on filedocumented as of this encounter Visit Diagnoses Diagnosis Other general counseling and advice for contraceptive management - Primary documented in this encounter Care Teams Dairy Technologist Relationship Specialty Start Date End Date Janis Cuellar MD PCP - General 07/08/01 10/12/19 [address] [facility] [address] [place] [address] documented as of this encounter
--- OUTSIDE RECORDS SUMMARY | 2022-04-25 22:27 | XMS_ITS | Encounter Summary ---
:1985 Author Organization [facility] Address [address] [place] [address] Care Team Providers Name Role Phone Janis Cuellar MD Primary Care Provider Reason for Visit Reason Onset Date Comments Other 04/03/2008 Labs-no insurance Encounter Details Date Type Department Care Team Description 04/03/2008 Telephone [facility] Janis Cuellar MD Other (Labs-no Clinic [place] [address] [facility] insurance) [address] [facility] [address] [place] [address] [place], [place] [phone] (Wo rk) [address] [phone] Social History Tobacco Use Types Packs/Day Years Used Date Smoking Tobacco: Never Alcohol Use Standard Drinks/Week Comments Yes 0 (1 standard drink = 0.6 oz pure alcoho l) casual Sex Assigned at Date Recorded Not on file documented as of this encounter Miscellaneous Notes Telephone Encounter - Alessia Vargas - 04/04/2008 2:03 PM CST Patient informed and will be getting her blood draw today. Alessia Vargas/RENAN TYPE MECHANIC Telephone Encounter - Janis Cuellar - 04/04/2008 7:51 AM CST She could come for a hemoglobin test if she wants; it will be cheaper than ER visit. TYPE MECHANIC Telephone Encounter - Janie Molina - 04/03/2008 12:32 PM CST Pt calling, feels like hgb is low, little energy and tired. Currently has no ins so wonders what sheshould do, states last time you sent her to the ER. Told pt I'd ask you tomorrow what you'd like herto do, advised if feeling too badly to go to ER. TYPE MECHANIC documented in this encounter Plan of Treatment Not on filedocumented as of this encounter Visit Diagnoses Diagnosis IRON DEFIC ANEMIA NOS - Primary Iron deficiency anemia, unspecified documented in this encounter Care Teams Oil Heat Technician Relationship Specialty Start Date End Date Janis Cuellar MD PCP - General 07/08/01 10/12/19 [address] [place] [address] documented as of this encounter
--- OUTSIDE RECORDS SUMMARY | 2022-04-25 22:27 | XMS_ITS | Encounter Summary ---
:1985 Author Organization [facility] Address [address] [place] [address] Care Team Providers Name Role Phone Janis Cuellar MD Primary Care Provider Encounter Details Date Type Department Care Team Description 11/23/2007 Historic Results [facility] Janis Cuellar MD [place] [address] [facility] [address] [place] [address] [place], [place] [phone] (Wo rk) [address] [phone] Social History Tobacco Use Types Packs/Day Years Used Date Smoking Tobacco: Never Alcohol Use Standard Drinks/Week Comments Yes 0 (1 standard drink = 0.6 oz pure alcoho l) casual Sex Assigned at Date Recorded Not on file documented as of this encounter Plan of Treatment Not on filedocumented as of this encounter Procedures Procedure Name Priority Date/Time Associated Diagnosis Comme nts FERRITIN Routine 11/23/2007 11:38 AM Results for this CDT procedure are i n the results section . documented in this encounter Results (ABNORMAL) Ferritin (11/23/2007 11:38 AM CDT) P athologist Signature Ferritin 3 (L) 10 - 120 MISYS ng/mL Specimen Anatomical Collection Method Collection Time Receive d Time (Source) Location / / Volume Laterality 11/23/2007 11:38 03/13/2007 1:08 AM CDT PM CDT Janis Cuellar MD LAB - BLOOD ORDERABLES Performing Organization Address City/State/ZIP Code Phon e Number MISYS documented in this encounter Visit Diagnoses Not on filedocumented in this encounter Care Teams Living Specialist Relationship Specialty Start Date End Date Janis Cuellar MD PCP - General 07/08/01 10/12/19 [address] [place], [place] [phone] documented as of this encounter
--- OUTSIDE RECORDS SUMMARY | 2022-04-25 22:27 | XMS_ITS | Encounter Summary ---
:1985 Author Organization [place] Address [address] [place] [address] Care Team Providers Name Role Phone Jnais Cuellar MD Primary Care Provider Encounter Details Date Type Department Care Team Description 06/01/2007 Consultation Ralph Parish MD [facility] [address] [place], [place] [address] (Wo rk) Social History Tobacco Use Types Packs/Day Years Used Date Smoking Tobacco: Never Alcohol Use Standard Drinks/Week Comments Yes 0 (1 standard drink = 0.6 oz pure alcoho l) casual Sex Assigned at Date Recorded Not on file documented as of this encounter Progress Notes Ralph Parish - 06/09/2007 6:29 PM ASSISTED LIVING CARE MANAGER FINAL CONSULTING MD: Dr Cuellar REASON FOR CONSULTATION: Anemia, iron deficiency, possible IV iron. HISTORY OF PRESENT ILLNESS: This is a 22-year-old lady with a history of nephrolithiasis and iron deficiency anemia. 1. With regards to her diagnosis of anemia, looking at the labs available on the computer, we have the following: a) October 02, 2006; WBC 6.8, hemoglobin 10.7, hematocrit 34.9, MCV 72 and platelet count unavailable for that day. b) Next CBC available is March 13, 2007, which shows a white count of 4, hemoglobin 4.6, hematocrit 17.1, MCV 66 and platelet count 392,000. c) B12 was 336, folic acid 21.6. d) Transferrin 421 which is increased. e) Iron level 7, percent saturation 1, iron-binding capacity 539 and ferritin 3. f) Reticulocyte count at that point was 1. Absolute reticulocyte count normal at 36. The patient did receive 2 units ofpacked red blood cells in February for that. g) Next hemoglobin available was from March 31, 2007 at 7.9. h) Next CBC available from April 12, 2007, shows a white count of 7.4, hemoglobin 8.7, hematocrit 30.3 and platelet count 326,000. i) Next labs from April 24, 2007, iron level marginally increased at 8, hemoglobin 7.7. j) Hemoglobin on May 12, 2007 was 7.3. k) June 01, 2007, iron studies are repeated showing the following; iron level 10, iron- binding capacity 581, iron-percentage saturation 2 and ferritin is 4. Hemoglobin noted to be 7.8, hematocrit 27.3, MCV 62 and platelet count 396,000. Results pending include EPO level and hemoglobin electrophoresis. 2. As noted, the patient has this history of anemia as diagnosed February 2007. With regards to her possible causes of anemia in terms of GI bleeding; she denies any GI bleeding, any changes in bowel habits, any cramping with her stool or any diarrhea. She normally goes once every 2 to 3 days, which is her baseline. She does have a family history of Crohn's disease and has not been evaluated for this. 3. With regards to her history of periods; she says she has had irregular periods for a long time now, but says she previously used to have a period lasting for 3 to 4 days, coming every 1 to 2 monthsas it had been irregular. Ever since her menarche at age 14 she would use about a tampon every 3 to 4 hours earlier, but most recently has been using a tampon every hour, for which she has also been placed on the oral contraceptive pill. 4. She does endorse fatigue and not able to do all the things that she would like to do. She does respond to blood appropriately and feels better. Otherwise, she denies any fevers, chills, loss in weight, loss in appetite or B-type symptoms; any rashes, any pain in the muscles or joints, any changes in bowel habits or urinary habits. She has been taking oral iron for 2 months per her. PAST MEDICAL HISTORY: 1. Iron deficiency anemia. 2. Nephrolithiasis. PAST SURGICAL HISTORY: Appendectomy and removal of kidney stones. SOCIAL HISTORY: She has a boyfriend. She has no children, has never been . 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 She does not smoke. She drinks 1 to 2 alcoholic beverages per week. She lives in an apartment with 2 roommates. She is sexually active with her boyfriend who is present at today's interview. FAMILY HISTORY: Father with type 1 diabetes, hypertension, hyperlipidemia. Mother with hypertension, hyperlipidemia, kidney and Crohn's disease. Maternal grandmother also with Crohn's disease and coronary artery disease. She thinks her mom has low hemoglobin, but does not know of any blood dyscrasiasin the family. ALLERGIES: Penicillin causes hives. CURRENT MEDICATIONS: 1. Ferrous sulfate 325 mg t.i.d. 2. Alesse control 1 p.o. daily. 3. Vitamin C 500 mg p.o. daily. REVIEW OF SYSTEMS: As documented in HPI. Significant for feeling cold, fatigue, and palpitations; but no dizziness, lightheadedness or chest pain. PHYSICAL EXAMINATION: GENERAL: She is a pleasant lady in no acute distress. She is accompanied by her boyfriend in the room. VITAL SIGNS: Her temperature is 36.9, T-max was 37.7. Her pulse is 83, blood pressure 103/62, weight is per her 124 pounds and height is 5 feet 9, per her. HEENT: Moist mucous membranes with no icterus or thrush but she does have pallor. NECK: Supple with no JVP, thyromegaly or lymph nodes. CARDIOVASCULAR: Regular rate and rhythm, no murmurs, rubs or gallops. RESPIRATORY: Chest clear to auscultation, no rales or rhonchi appreciated. ABDOMEN: Soft, nontender, nondistended with no evidence of hepatosplenomegaly. EXTREMITIES: No cyanosis, clubbing, edema or rash. LABORATORY DATA: As available today; for other lab data, please refer to HPI. Post-transfusion, white count 6.9, hemoglobin 9.6, hematocrit 32.3, platelet count 324, MCV 68 and as mentioned previouslyEPO level pending, hemoglobin electrophoresis pending. Most recent CBC prior to transfusion showed ahemoglobin 7.8, hematocrit 27.3, ferritin 4, iron level 10, iron-binding capacity 581 and iron saturation 2 IMPRESSION: 1. Microcytic anemia. 2. Evidence of profound iron deficiency. 3. Family history of Crohn's. 4. History of menorrhagia. RECOMMENDATIONS: 1. With regards to her workup for her iron deficiency would recommend the following: a) Occult blood, possible colonoscopy. b) Menstrual source. She is on OC pills continuously and hopefully if that is the source that wouldhelp with her iron deficiency and blood loss. 2. The question really is if it is blood loss or decrease absorption or both. We do need to ascertain the cause of this to really correct her deficiency. 3. With regards to IV iron, I think it is a reasonable option in view of the fact that she has not received much increase from p.o. iron. Again, the question is if this is decreased absorption or increased loss or both. 4. I would like to follow up with her as an outpatient in my clinic. Hopefully, we can get all the workup done and I think a trial of IV iron might be reasonable to at least make her feel better and reduce her frequency of blood transfusions as that itself is not risk free. 5. I did communicate my recommendations in detail to the patient and provided her my contact information for outpatient follow-up. Hopefully I will be seeing her soon to get the ball rolling for possible IV iron and further workup. Electronically signed on 06/09/2007 18:28 by RALPH PARISH MD MT: EUNICE#[id number] Name: ESTEFANIA MCKEON Account: [id number] : 1985 Consult Date: 06/01/2007 Document: [id number] STED LIVING CARE MANAGER documented in this encounter Plan of Treatment Not on filedocumented as of this encounter Visit Diagnoses Not on filedocumented in this encounter Care Teams Recycling Specialist Relationship Specialty Start Date End Date Janis Cuellar MD PCP - General 07/08/01 10/12/19 [address] [facility] [address] [place] [address] documented as of this encounter
--- OUTSIDE RECORDS SUMMARY | 2022-04-25 22:27 | XMS_ITS | Encounter Summary ---
:1985 Author Organization [place] Address [address] [place] [address]. [place] [address] Care Team Providers Name Role Phone Janis Cuellar MD Primary Care Provider Encounter Details Date Type Department Care Team Description 12/14/2007 Emergency room [facility] Kim Loja MD [facility] Results [facility] [address] [facility] [address] [place], [place] [id number] (Wo rk) Social History Tobacco Use Types Packs/Day Years Used Date Smoking Tobacco: Never Alcohol Use Standard Drinks/Week Comments Yes 0 (1 standard drink = 0.6 oz pure alcoho l) casual Sex Assigned at Date Recorded Not on file documented as of this encounter Progress Notes Interface, Authorization Nurse - 02/02/2008 10:47 PM CDT FINAL CHIEF COMPLAINT: I'm having pain. HISTORY OF PRESENT ILLNESS: Estefania Mckeon is a 22-year-old who comes to the emergency department complaining of abdominal discomfort. She is here with her mom and boyfriend. She says she has been having bladder and UTI problems for the last couple of months. She has had repeat antibiotics without much change. She says if she went in now she might have a little bit of kidney infection. She is having a little back discomfort too. She has had kidney stones in the past. She has some stones on her left side. She has some duplicated ureters. She denies any blood in her urine recently. She has had Cipro each time she has had a bladder infection. She said there was a culture done before but she is not aware of the results of this. This past Tuesday she started getting sick again. She has had on and off fevers, which have not been measured. She has had positive night sweats, denies vaginal discharge initially but reports some clear discharge, then a little bit later she is not sure if it was from her vagina or her urethra. She denies any trauma, skin rashes. She has had ongoing problems with anemia. She has not been able to take her iron because of the recent Cipro. She stopped it about 2 weeks ago. She took some Advil yesterday with a little bit of relief. She is on control pills which shetries to stop her periods because of her anemia. She has had her appendix removed. She does not currently have insurance and feels limited somewhat in this regard for following up on some of her recentmedical problems. She denies any history of STDs and says everything else has been going okay for her. No other complaints or problems. MEDICATIONS: control pill, Advil, Cipro recently. ALLERGIES: Amoxicillin. PAST MEDICAL HISTORY: Remarkable for anemia, appendectomy, kidney stones x8, including one time being removed with a basket. FAMILY HISTORY: Noncontributory. SOCIAL HISTORY: Stable. 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 REVIEW OF SYSTEMS: As discussed above for pertinent things. She denies any other hematologic, immunologic, endocrinologic, renal, metabolic, neurologic, dermatologic gynecologic, oral problems except those mentioned above. PHYSICAL EXAMINATION: GENERAL: She is alert and oriented, mild amount of distress when seen, she states it is okay for mom to stay in the room. VITAL SIGNS: Blood pressure 120/76, pulse 111, respiratory rate 16, temperature 98.8, sats 97%. HEENT: Pupils are equal and reactive, full and intact. There is no icterus or pallor. Nose, mouth and oropharynx are normal. No intraoral abnormalities. NECK, SPINE AND BACK: Without any CVA tenderness. CHEST: Rise equal. LUNGS: Sounds are clear. HEART: Sounds normal S1, S2. There are no murmurs, rubs or gallops. Pulses are symmetric and strong. ABDOMEN: Soft and nontender except for a little bit in the suprapubic region. Bowel sounds are present. There is no mass or organomegaly. No peritoneal findings. GENITOURINARY/RECTAL: Done with cleat maker present, reveals normal genitalia. She has a little bit of whitish discharge noted without any pus, cervix looks a bit irritated. There is no cervical motion tenderness, however, no adnexal masses, a little discomfort in the area of the bladder. EXTREMITIES: Extremities x4 normal. NEUROLOGIC: Nonfocal. PSYCHOLOGIC: Normal. LYMPHS: Normal. SKIN: Normal. The rest of physical exam is all unremarkable. EMERGENCY DEPARTMENT DIAGNOSTICS: Urinalysis that shows no signs of infection, a few bacteria without squamous epithelial cells. Negative test. Urine culture is pending. CBC shows a hemoglobin of 8.5, hematocrit 29.2, MCV 67, platelets 329, white count normal, differential normal. Comprehensive metabolic panel normal. Callaway negative. She has a sick exposure through her brother who has mono.She has a wet prep that shows clue cells, no yeast and some Trichomonas, chlamydia and gonorrhea arepending. EMERGENCY DEPARTMENT COURSE: A 22-year-old woman who presents with a history of kidney stones, someoccasional back pains, recurrent UTIs. She has been seen here but I do not see any recent pelvic exams given her discomfort, with reported clearish discharge we proceeded with pelvic today. This demonstrated trichomonas and some bacterial vaginosis. We will treat her with oral Flagyl 2 grams for thosetrichomonas. She also gets Zofran and some Toradol as well as 1 liter of IV fluid over an hour. She does feel better after this. I reviewed the results with her and the STD results individually. She will followup with her sexual partners. I do not find any evidence for PID at this point. I do not findany evidence clearly for some kind of vesicular fistula to get those recurrent UTIs. I wonder actually if she may be having some other process given some of her discharge and discomfort. What we will do is treat her with Bactrim. She had sensitive E. coli on previous cultures, will also do MetroGel. She can resume her iron with this and followup next week if not improving. She is comfortable with this plan. She is not at the point where she needs transfusion, although she has in the past. Questions are answered. At time of discharge, she is stable. EMERGENCY DEPARTMENT DISPOSITION: To home. Please see ED paperwork for details. EMERGENCY DEPARTMENT FINAL IMPRESSION: 1. Abdominal pain. 2. Bacterial vaginosis. 3. Trichomonas. 4. Bacteria with a history of urinary tract infections, recurrent. 3. Anemia, history of. Electronically signed on 02/02/2008 22:47 by KIM LOJA MD MT: [id number] Name: ESTEFANIA MCKEON MRN: [id number] Account: [id number] : 1985 Visit Date: 12/14/2007 Document: [id number] cc: Janis Cuellar MD documented in this encounter Plan of Treatment Not on filedocumented as of this encounter Visit Diagnoses Not on filedocumented in this encounter Care Teams Aircraft Armament Mechanic Relationship Specialty Start Date End Date Janis Cuellar MD PCP - General 07/08/01 10/12/19 [address] [facility] [address] [place] [address] documented as of this encounter
--- OUTSIDE RECORDS SUMMARY | 2022-04-25 22:27 | XMS_ITS | Encounter Summary ---
:1985 Author Organization [facility] Address [address] [place] [address] Care Team Providers Name Role Phone Janis Cuellar MD Primary Care Provider Reason for Visit Reason Onset Date Comments Anemia 04/04/2008 Encounter Details Date Type Department Care Team Description 04/04/2008 Telephone [facility] Tracey Cuellar MD Anemia [place] [address] [place] [address] [address] [place] [address] [phone] Social History Tobacco Use Types Packs/Day Years Used Date Smoking Tobacco: Never Alcohol Use Standard Drinks/Week Comments Yes 0 (1 standard drink = 0.6 oz pure alcoho l) casual Sex Assigned at Date Recorded Not on file documented as of this encounter Miscellaneous Notes Telephone Encounter - Alessia Vargas - 04/05/2008 10:03 AM CST Patient will be transfused today. Alessia Vargas/RENAN ESE TEACHER Telephone Encounter - Janis Cuellar - 04/04/2008 5:21 PM CST Patient was notified about hgb. Order done for transfusions at hospital. ESE TEACHER documented in this encounter Plan of Treatment Not on filedocumented as of this encounter Visit Diagnoses Diagnosis IRON DEFIC ANEMIA NOS - Primary Iron deficiency anemia, unspecified documented in this encounter Care Teams Chief Of Harbor Patrol Relationship Specialty Start Date End Date Janis Cuellar MD PCP - General 07/08/01 10/12/19 [address] [place], [place] [address] documented as of this encounter
--- OUTSIDE RECORDS SUMMARY | 2022-04-25 22:27 | XMS_ITS | Encounter Summary ---
:1985 Author Organization [facility] Address [address] [place] [address] Care Team Providers Name Role Phone Janis Cuellar MD Primary Care Provider Encounter Details Date Type Department Care Team Description 06/02/2007 Historic Results [facility] Janis Cuellar MD [place] [address] [facility] [address] [place] [address] [place], [place] [phone] (Wo rk) [address] [phone] Social History Tobacco Use Types Packs/Day Years Used Date Smoking Tobacco: Never Alcohol Use Standard Drinks/Week Comments Yes 0 (1 standard drink = 0.6 oz pure alcoho l) casual Sex Assigned at Date Recorded Not on file documented as of this encounter Plan of Treatment Not on filedocumented as of this encounter Procedures Procedure Name Priority Date/Time Associated Comments Diagnosis HEMOGRAM AND PLATELET Routine 06/02/2007 6:21 AM Results for this NURSE PRACTITIONER PHYSICIANS ASSISTANT procedure are i n the results section. ERYTHROPOIETIN Routine 06/02/2007 6:21 AM Results for this NURSE PRACTITIONER PHYSICIANS ASSISTANT procedure are i n the results section. documented in this encounter Results (ABNORMAL) Hemogram and platelet (06/02/2007 6:21 AM NURSE PRACTITIONER PHYSICIANS ASSISTANT) Analysis Performed At Patho logist Time Signature MCV 68 (L) 78 - 100 [facility] fl MCH 20.3 (L) 26.5 - MISYS 33.0 pg MCHC 29.7 (L) 31.5 - MISYS 36.5 g/dL RDW 25.9 (H) 10.0 - MISYS 15.0 % WBC 6.9 4.0 - 11.0 [facility] 10e9/L RBC Count 4.73 3.8 - 5.2 [facility] 10e12/L Hemoglobin 9.6 (L) 11.7 - MISYS 15.7 g/dL Hematocrit 32.3 (L) 35.0 - MISYS 47.0 % Platelet Count 324 150 - 450 [facility] 10e9/L Specimen (Source) Anatomical Collection Method Collection Time Re ceived Time Location / / Volume Laterality 06/02/2007 6:21 AM 8 NURSE PRACT[facility]ER PH[facility]ICIANS ASSISTANT Antoniette Montiel MD LAB - BLOOD ORDERABLES Performing Organization Address City/State/ZIP Code Phon e Number [facility] Erythropoietin (06/02/2007 6:21 AM NURSE PRACTITIONER PHYSICIANS ASSISTANT) athologist Signature Erythropoietin 82 [facility] Comment: Unit: mU/mL (Note) INTERPRETATION: Erythropoietin Normal serum concentrations of erythropo ietin for 95% of individuals with normal hematocrits rang e from 4-27 mU/mL. As the hematocrit is lowered by iron def iciency, aplastic, or hemolytic anemia, the concentration o f erythropoietin increases as shown in the graph below. I n the absence of anemia, elevated concentrations are seen in renal tumors, as a manifestation of renal transplant r ejection, and in secondary polycythemia. Low values may b e observed in hemochromatosis. ? Expected Erythropoietin Concentra tions in Patients ?with Uncompli cated Anemia ??Erythropoietin (mU/mL) ? 100,000 - + ? + ?10,000 - +....... ? + .... ... ? 1,000 - + ?... .... ? + ? ........ ? 100 - + ? ........ ? + ?........ ?10 - + ?........ ? +---+- --+---+---+---+---+ ?10 ?? 2 0 ??30 ??40 ??50 ??60 ??70 ? (Hematocrit %) ? (Contributions To Nephrolog y 1988:66:54-62) Decreased erythropoietin concentrations with an elevated hematocrit are observed in patients with polycythemia rubra vera, and with a decreased hematocrit in patients with HIV infection who are receiving AZT. ??Patie nts on AZT who have anemia and erythropoietin concentrations of less than or equal to 500 mU/mL may benefit from ther apy with recombinant EPO (NEJ [id number],1989 ). Performed by [facility], [address] [place] [id number] [email or web address], ??Zac Scott MD - Lab. Director ? Specimen Anatomical Collection Method Collection Time Receive d Time (Source) Location / / Volume Laterality 06/02/2007 6:21 AM 8 NURSE PRACTITIONER PHYSICIANS ASSISTANT 10:50 PM NURSE PRACTITIONER PHYSICIANS ASSISTANT Janis Cuellar MD LAB - BLOOD ORDERABLES Performing Organization Address City/State/ZIP Code Phon e Number MISYS documented in this encounter Visit Diagnoses Not on filedocumented in this encounter Care Teams Physician Relations Representative Relationship Specialty Start Date End Date Janis Cuellar MD PCP - General 07/08/01 10/12/19 [address] [address] documented as of this encounter
--- OUTSIDE RECORDS SUMMARY | 2022-04-25 22:27 | XMS_ITS | Encounter Summary ---
:1985 Author Organization [facility] Address [address] [place] [address] Care Team Providers Name Role Phone Janis Cuellar MD Primary Care Provider Encounter Details Date Type Department Care Team Description 01/03/2008 Orders Only [facility] Janis Cuellar MD UTI (Urinary Tract Clinic [place] [address] Infection) (Primary [address] Dx) [place], [place] [address] [address] [place], [place] [phone] (Wo rk) [address] [phone] Social History Tobacco Use Types Packs/Day Years Used Date Smoking Tobacco: Never Alcohol Use Standard Drinks/Week Comments Yes 0 (1 standard drink = 0.6 oz pure alcoho l) casual Sex Assigned at Date Recorded Not on file documented as of this encounter Plan of Treatment Not on filedocumented as of this encounter Visit Diagnoses Diagnosis UTI (urinary tract infection) - Primary Urinary tract infection, site not specif ied documented in this encounter Care Teams Social Science Instructor Relationship Specialty Start Date End Date Janis Cuellar MD PCP - General 07/08/01 10/12/[address] [place] [address] documented as of this encounter
--- OUTSIDE RECORDS SUMMARY | 2022-04-25 22:27 | XMS_ITS | Encounter Summary ---
:1985 Author Organization [facility] Address [address] [place] [address] Care Team Providers Name Role Phone Janis Cuellar MD Primary Care Provider Reason for Visit Reason Onset Date Comments Lab Only 08/14/2007 for poss uti Encounter Details Date Type Department Care Team Description 08/14/2007 Telephone [facility] Janis Cuellar MD Lab Only (for poss Clinic [place] [address] [place] uti) [address] [place] [address] [place], [place] [phone] (Wo rk) [address] [phone] Social History Tobacco Use Types Packs/Day Years Used Date Smoking Tobacco: Never Alcohol Use Standard Drinks/Week Comments Yes 0 (1 standard drink = 0.6 oz pure alcoho l) casual Sex Assigned at Date Recorded Not on file documented as of this encounter Miscellaneous Notes Telephone Encounter - Alessia Vargas - 08/14/2007 5:13 PM CDT Patient notified. Alessia Vargas/RENAN Telephone Encounter - Janis Cuellar - 08/14/2007 2:45 PM CDT She has had documented UTI before; I will just order antibiotic for her and if symptoms persist or recur, then would do urine. Telephone Encounter - Silvia Núñez - 08/14/2007 2:40 PM CDT Mom calling. States pt c/o dysuria, freq, FERRARA, and over all doesn't feel good. Hx of uti. Mom req labonly for UA. (Pt doesn't have insur.) If ok, need orders. Please advise, thanks. documented in this encounter Plan of Treatment Not on filedocumented as of this encounter Visit Diagnoses Diagnosis Urinary tract infection, site not specif ied - Primary documented in this encounter Care Teams Car Knocker Relationship Specialty Start Date End Date Janis Cuellar MD PCP - General 07/08/01 10/12/[address] [address] documented as of this encounter
--- OUTSIDE RECORDS SUMMARY | 2022-04-25 22:27 | XMS_ITS | Encounter Summary ---
:1985 Author Organization [place] Address [address] [place] [address]. [place] [address] Care Team Providers Name Role Phone Janis Cuellar MD Primary Care Provider Encounter Details Date Type Department Care Team Description 06/01/2007 Admission H&P [facility] Eag Sivan Stevens (Marble Setter Helper) [address] [facility] [place] [address] [place] [address] [place] [address] Social History Tobacco Use Types Packs/Day Years Used Date Smoking Tobacco: Never Alcohol Use Standard Drinks/Week Comments Yes 0 (1 standard drink = 0.6 oz pure alcoho l) casual Sex Assigned at Date Recorded Not on file documented as of this encounter Progress Notes Sivan Montiel - 06/04/2007 9:23 PM INTERNAL REVENUE AGENT FINAL CHIEF COMPLAINT: Fatigue. PAST MEDICAL HISTORY: 1. Iron deficiency anemia. 2. Nephrolithiasis PAST SURGICAL HISTORY: Appendectomy and removal of kidney stones. HISTORY OF PRESENT ILLNESS: This is a 22-year-old woman who has a history of profound anemia over the past year. Back in August, her hemoglobin was 10.7, but since then has fallen. She had a transfusion for hemoglobin of 4.7 in the late part of 2006. She was started on iron. In April, she had seen her primary care physician to start oral contraceptives in hopes of limiting her menstrual bleeding. The patient reports that her last menstrual cycle was especially heavy. She usually has a cycle every1-2 months and reports bleeding 3-4 days and then it stops. During the last period, however, she hadto change a tampon every hour for the first couple of days. She does not find this to unusual. She says that she has chronic fatigue and myalgias. She feels cold all the time and craves ice. She sometimes feels light-headed. If she walks long distances or up stairs feels like she has to rest and sit down. This has been ongoing for months. She denies any recent fevers or chills. She does have a tendency toward urinary tract infections and her last urinary tract infection was treated 3 weeks ago. She currently denies any dysuria, urinary frequency or urgency. The patient was brought to the emergency room for evaluation of her fatigue. She was found to be anemic with a hemoglobin of 7.8, which is notsignificantly different from that of April, but she was not feeling well. The patient's mother sunoble alfords from Crohn's disease. The patient herself reports that she has never seen blood in her stool. She denies change in bowel habits. She does not suffer from constipation or diarrhea. The patient doestake iron supplements daily. She has never been evaluated for intravenous iron replacement therapy. 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 She has never smoked. She drinks 1-2 alcoholic beverages per week. She drinks 2-3 caffeinated beverages, mainly cola daily. She is single and she has never had any children. She currently lives with 2 roommates in an apartment. She is sexually active and has a boyfriend who was present at today's hospitalization. FAMILY HISTORY: Father with type 1 diabetes, hypertension and hyperlipidemia. Mother with hypertension, hyperlipidemia, kidney stones and Crohn's disease. Paternal grandmother with Crohn's disease andcoronary artery disease in a maternal grandfather. ALLERGIES: Penicillin-causing hives. CURRENT MEDICATIONS: 1. Ferrous sulfate 325 mg p.o. t.i.d. 2. Alesse control pills 1 p.o. daily as directed. 3. Vitamin C 500 mg 1 p.o. q. day. REVIEW OF SYSTEMS: GENERAL: She feels cold all the time and she craves ice. She denies weight gain And she denies change in weight over the past year. She denies fevers or chills. CARDIOVASCULAR: She describes with somepalpitations with activities, but no distress at rest. No dizziness or chest pain. RESPIRATORY: She denies chronic cough or shortness of breath. Occasionally, she feels very winded with activity and needs to sit down. GASTROINTESTINAL: She has current nausea and vague diffuse abdominal pain across themid abdomen and over the bladder. GENITOURINARY: She denies urinary frequency or urgency. She deniesany flank pain. GYNECOLOGICAL: She as been on the control pills for 3 weeks now and she is starting her third week. Menarche was in ninth grade. Her last menstrual period was 05/01/2007. She has never been . HEMATOLOGIC: She reports easy bruising and bleeding with brushing her teeth. Shedenies epistaxis. MUSCULOSKELETAL: She has profound myalgias. NEUROLOGIC: History of migraine headaches which have become less frequent over time. She sometimes gets tunnel vision. She uses Advil 2 to 3 tablets at the time to get rid of the headache. PHYSICAL EXAMINATION: VITAL SIGNS: Temperature is 98.6, blood pressure 117/78, pulse 117, respirations 16, O2 saturation 100% on room air. GENERAL: This is a very pleasant young woman who appears very pale. HEENT: Conjunctivae are pale, PERRL, EOMI. OP is moist. NECK: Supple without adenopathy or thyromegaly. HEART: Regular S1 and S2, tachycardic, no murmurs. LUNGS: Clear bilaterally. ABDOMEN: Soft, tenderness which is diffuse over the mid abdomen and over the bladder. There is no rebound or guarding. EXTREMITIES: The extremities are warm. There is no peripheral edema. NEUROLOGIC: Nonfocal. LABORATORY DATA: WBC 10.1 with 84 neutrophils, 10 lymphocytes, 5 monocytes, hemoglobin 7.8, platelets 396, MCV 62. INR was 1. Sodium 138, potassium 3.8, chloride 105, CO2 22, BUN 10, creatinine 0.75, glucose 78. HCG was negative. Urinalysis shows cloudy urine with positive nitrites and moderate leukocyte esterase, 98 WBC and 10 RBCs. ADMISSION ASSESSMENT AND PLAN: 1. This is a 22-year-old woman with profound anemia, suspect menorrhagia, but cannot rule out othersources. She recently initiated oral contraceptive use to help control her menses. Plan for this is to transfuse with 2 units of packed red blood cells. Recheck CBC after the transfusions are complete.Send hemoglobin electrophoresis, peripheral smear and iron studies. Ask Hematology to consult, patient may benefit from intravenous iron therapy. May consider colonoscopy if it does not appear that herperiods are heavy enough to warrant this degree of anemia. Her family history is positive for Crohn's disease. We will guaiac stools x3. If any of these are positive, strongly consider colonoscopy consu ltation. This was discussed with the patient. 2. Urinary tract infection: The patient will be treated with Levaquin for her urinary symptoms while hospitalized. She may use Tylenol for pain. Electronically signed on 06/04/2007 21:23 by SIVAN MONTIEL MD MT: [id number] Name: ESTEFANIA MCKEON MRN: [id number] Account: [id number] : 1985 Admitted: [id number] Document: [id number] cc: Janis Cuellar MD RNAL REVENUE AGENT documented in this encounter Plan of Treatment Not on filedocumented as of this encounter Visit Diagnoses Not on filedocumented in this encounter Care Teams Finisher Map And Chart Relationship Specialty Start Date End Date Janis Cuellar MD PCP - General 07/08/01 10/12/19 [address] [facility] [address] [place] [address] documented as of this encounter
--- OUTSIDE RECORDS SUMMARY | 2022-04-25 22:27 | XMS_ITS | Encounter Summary ---
:1985 Author Organization [place] Address [address] [place] [address] Care Team Providers Name Role Phone Janis Cuellar MD Primary Care Provider Encounter Details Date Type Department Care Team Description 11/09/2007 Historic Results [facility] Janis Cuellar MD [place] [address] [facility] [address] [place] [address] [place], [place] [phone] (Wo rk) [address] [phone] Social History Tobacco Use Types Packs/Day Years [...] Associated Comments Diagnosis HCG QUALITATIVE URINE STAT 11/09/2007 9:15 PM Results for this CDT procedure are i n the results section. ROUTINE UA WITH STAT 11/09/2007 9:15 PM Result s for this MICROSCOPIC CDT procedure are i n the results section. URINE CULTURE Routine 11/09/2007 9:15 PM Results for this CDT procedure are i n the results section. documented in this encounter Results (ABNORMAL) Routine UA with microscopic (11/09/2007 9:15 PM CDT) Component Value Ref Test Analysis Performed At [facility] Range Method Time Signature Source Unspecified MISYS Urine Color Urine Yellow MISYS Appearance Urine Slightly Cloudy MISYS Glucose Urine Negative NEG MISYS mg/dL Bilirubin Urine Negative NEG MISYS Ketones Urine Negative NEG MISYS mg/dL Specific [place] 1.012 1.003 - MISYS Urine 1.035 Blood Urine Trace (A) NEG MISYS pH Urine 6.0 5.0 - MISYS 7.0 pH Protein Albumin 10 (A) NEG MISYS Urine mg/dL Urobilinogen Normal 0.0 - MISYS mg/dL 2.0 mg/dL Nitrite Urine Positive (A) NEG MISYS Leukocyte Moderate (A) NEG MISYS Esterase Urine WBC Urine 51 (H) 0 - 2 MISYS /HPF RBC Urine 4 (H) 0 - 2 MISYS /HPF Squamous <1 0 - 1 MISYS Epithelial /HPF /HPF Urine Transitional Epi <1 0 - 1 MISYS /HPF Bacteria Urine Moderate (A) NEG /HPF MISYS Amorphous Few (A) NEG /HPF MISYS Crystals Mucous Urine Present (A) NEG /LPF MISYS Specimen Anatomical Collection Method Collection Time Receive d Time (Source) Location / / Volume Laterality 11/09/2007 9:15 PM 8 9:38 CDT PM CDT [facility] LAB - URINE ORDERABLES Performing Organization Address City/State/ZIP Code Phon e Number MISYS HCG qualitative urine (11/09/2007 9:15 PM CDT) P athologist Signature HCG Qual Urine Negative NEG MISYS Specimen Anatomical Collection Method Collection Time Receive d Time (Source) Location / / Volume Laterality 11/09/2007 9:15 PM 8 9:38 CDT PM CDT [facility] LAB - URINE ORDERABLES Performing Organization Address City/State/ZIP Code Phon e Number MISYS Urine culture (11/09/2007 9:15 PM CDT) Patholo gist Method Time Signature Specimen Midstream Urine MISYS Description Culture Micro >100,000 MISYS colonies/mL Escherichia coli Micro Report FINAL MISYS Status 11/11/2007 Specimen Anatomical Collection Method Collection Time Receive d Time (Source) Location / / Volume Laterality 11/09/2007 9:15 PM 8 CDT 11:15 PM CDT Organism Antibiotic Method Susceptibility >100,000 colonies/ml Ampicillin <=2 Suscept ible escherichia coli (pamela) >100,000 colonies/ml Amoxicillin/Clav <=2 Suscep tible escherichia coli (pamela) >100,000 colonies/ml Ceftriaxone <=1 Suscept ible escherichia coli (pamela) >100,000 colonies/ml Cefotaxime Deduced Gina ceptible escherichia coli (pamela) >100,000 colonies/ml Cefazolin <=4 Suscept ible escherichia coli (pamela) >100,000 colonies/ml Ciprofloxacin <=0.25 Susc eptible escherichia coli (pamela) >100,000 colonies/ml Nitrofurantoin <=16 Suscep tible escherichia coli (pamela) >100,000 colonies/ml Gentamicin <=1 Suscept ible escherichia coli (pamela) >100,000 colonies/ml Levofloxacin <=0.25 Susc eptible escherichia coli (pamela) >100,000 colonies/ml Trimethoprim/Sulfamethoxazole <=1/19 Susceptible escherichia coli (pamela) >100,000 colonies/ml Ticarcillin <=8 Suscept ible escherichia coli (pamela) >100,000 colonies/ml Ticarcillin/Clav <=8 Suscep tible escherichia coli (pamela) >100,000 colonies/ml Tobramycin <=1 Suscept ible escherichia coli (pamela) >100,000 colonies/ml Cefuroxime Axetil 4 Suscept ible escherichia coli (pamela) Janis Cuellar MD LAB - MICRO GENERAL ORDERABL ES Performing Organization Address City/State/ZIP Code Phon e Number MISYS documented in this encounter Visit Diagnoses Not on filedocumented in this encounter Care Teams Kiln Door Repairer Relationship Specialty Start Date End Date Janis Cuellar MD PCP - General 07/08/01 10/12/19 [address] [address] documented as of this encounter
--- OUTSIDE RECORDS SUMMARY | 2022-04-25 22:27 | XMS_ITS | Encounter Summary ---
:1985 Author Organization [place] Address [address] [place] [address] Care Team Providers Name Role Phone Janis Cuellar MD Primary Care Provider Encounter Details Date Type Department Care Team Description 12/14/[address] [facility] Janis Cuellar MD [place] [address] [facility] [address] [place] [address] [place], [place] [phone] (Wo rk) [address] [phone] Social History Tobacco Use Types Packs/Day Years Used Date Smoking Tobacco: Never Alcohol Use Standard Drinks/Week Comments Yes 0 (1 standard drink = 0.6 oz pure alcoho l) casual Sex Assigned at Date Recorded Not on file documented as of this encounter Plan of Treatment Not on filedocumented as of this encounter Procedures Procedure Name Priority Date/Time Associated Comments Diagnosis WET PREPARATION Routine 12/14/2007 8:10 PM Result s for this CDT procedure are i n the results section. NEISSERIA GONORRHOEAE Routine 12/14/2007 8:10 PM Results for this PCR CDT procedure are i n the results section. CHLAMYDIA TRACHOMATIS Routine 12/14/2007 8:10 PM Results for this PCR CDT procedure are i n the results section. CBC WITH PLATELETS & STAT 12/14/2007 6:35 PM R esults for this DIFFERENTIAL CDT procedure are i n the results section. MONONUCLEOSIS SCREEN STAT 12/14/2007 6:35 PM R esults for this CDT procedure are i n the results section. COMPREHENSIVE STAT 12/14/2007 6:35 PM Results for this METABOLIC PANEL CDT procedure ar e in the results section. HCG QUALITATIVE URINE Routine 12/14/2007 5:35 PM Results for this CDT procedure are i n the results section. ROUTINE UA WITH STAT 12/14/2007 5:35 PM Result s for this MICROSCOPIC CDT procedure are i n the results section. URINE CULTURE Routine 12/14/2007 5:35 PM Results for this CDT procedure are i n the results section. documented in this encounter Results Wet prep (12/14/2007 8:10 PM CDT) [facility] Method Time Signature Specimen Vagina MISYS Description Micro Report FINAL MISYS Status 12/14/2007 Wet Prep Clue cells MISYS seen Comment: No yeast seen Trichomonas seen Moderate WBC'S seen Specimen Anatomical Collection Method Collection Time Receive d Time (Source) Location / / Volume Laterality 12/14/2007 8:10 PM 8 8:22 CDT PM CDT Janis Cuellar MD LAB - MICRO GENERAL ORDERABL ES Performing Organization Address City/[facility] Phon e Number MISYS Chlamydia trachomatis PCR (12/14/2007 8:10 PM CDT) Component Value Ref Test Analysis Performed At [facility] Method Time Signature Specimen Cervix MISYS Description Chlamydia Negative for C. MISYS Trachomatis PCR trachomatis rRNA by flight crew scheduler mediated amplification. Comment: A negative result by flight crew scheduler medi ated amplification does not preclude the presence of C. trachomatis infection be cause results are dependent on proper and adequate collection, absence of inh ibitors, and sufficient rRNA to be detected. Specimen Anatomical Collection Method Collection Time Receive d Time (Source) Location / / Volume Laterality 12/14/2007 8:10 PM 8 8:22 CDT PM CDT Janis Cuellar MD LAB - MICRO GENERAL ORDERABL ES Performing Organization Address City/[facility]/ZIP Code Phon e Number MISYS Neisseria gonorrhoeae PCR (12/14/2007 8:10 PM CDT) [facility] Method Time Signature Specimen Cervix MISYS Descrip N Gonorrhea Negative for N. MISYS PCR gonorrhoeae rRNA by flight crew scheduler mediated amplification. Comment: A negative result by flight crew scheduler medi ated amplification does not preclude the presence of N. gonorrhoeae infection be cause results are dependent on proper and adequate collection, absence of inh ibitors, and sufficient rRNA to be detected. Specimen Anatomical Collection Method Collection Time Receive d Time (Source) Location / / Volume Laterality 12/14/2007 8:10 PM 8 8:22 CDT PM CDT Janis Cuellar MD LAB - MICRO GENERAL ORDERABL ES Performing Organization Address City/State/ZIP Code Phon e Number MISYS (ABNORMAL) CBC with platelets differential (12/14/2007 6:35 PM CDT) [facility] gist Method Time Signature MCV 67 (L) 78 - 100 MISYS fl MCH 19.5 (L) 26.5 - MISYS 33.0 pg MCHC 29.1 (L) 31.5 - MISYS 36.5 g/dL RDW 17.7 (H) 10.0 - MISYS 15.0 % WBC 5.7 4.0 - MISYS 11.0 10e9/L RBC Count 4.36 3.8 - 5.2 MISYS 10e12/L Hemoglobin 8.5 (L) 11.7 - MISYS 15.7 g/dL Hematocrit 29.2 (L) 35.0 - MISYS 47.0 % % Neutrophils 50 40 - 75 % MISYS % Lymphocytes 36 20 - 48 % MISYS % Monocytes 11 0 - 12 % MISYS % Eosinophils 2 0 - 6 % MISYS % Basophils 1 0 - 2 % MISYS Platelet Count 329 150 - 450 MISYS 10e9/L Absolute 2.9 1.6 - 8.3 MISYS Neutrophil 10e9/L Absolute 2.1 0.8 - 5.3 MISYS Lymphocytes 10e9/L Absolute 0.6 0.0 - 1.3 MISYS Monocytes 10e9/L Absolute 0.1 0.0 - 0.7 MISYS Eosinophils 10e9/L Absolute 0.0 0.0 - 0.2 MISYS Basophils 10e9/L Diff Method Automated MISYS Method Specimen Anatomical Collection Method Collection Time Receive d Time (Source) Location / / Volume Laterality 12/14/2007 6:35 PM 8 6:24 CDT PM CDT Faustino Loja MD LAB - BLOOD ORDERABLES Performing Organization Address City/State/ZIP Code Phon e Number MISYS Comprehensive metabolic panel (12/14/2007 6:35 PM CDT) athologist Signature Sodium 139 133 - 144 MISYS mmol/L Potassium 3.8 3.4 - 5.3 MISYS mmol/L Chloride 104 94 - 109 MISYS mmol/L Carbon Dioxide 25 20 - 32 MISYS mmol/L Glucose 76 60 - 99 MISYS mg/dL Urea Nitrogen 10 5 - 24 MISYS mg/dL Creatinine 0.72 0.52 - 1.04 MISYS mg/dL Comment: New IDMS-traceable calibration beginning 09/21/07 GFR Estimate >90 >60 mL/min/1.7m2 MISYS GFR Estimate If Black >90 >60 mL/min/1.7m2 M ISYS Calcium 9.1 8.5 - 10.4 mg/dL MISYS AST 26 0 - 45 U/L MISYS Protein Total 8.2 6.8 - 8.8 g/dL MISYS Comment: As of 07, reference range reflects plasma specimen type. Anion Gap 11 6 - 17 mmol/L MISYS Albumin 4.4 3.3 - 4.6 g/dL MISYS ALT 11 0 - 50 U/L MISYS Alkaline Phosphatase 53 40 - 150 U/L MISYS Bilirubin Total 0.4 0.2 - 1.3 mg/dL MISYS Specimen Anatomical Collection Method Collection Time Receive d Time (Source) Location / / Volume Laterality 12/14/2007 6:35 PM 8 6:24 CDT PM CDT Faustino Loja MD LAB - BLOOD ORDERABLES Performing Organization Address [facility] Phon e Number MISYS Mononucleosis screen (12/14/2007 6:35 PM CDT) [facility] Method Time Signature Mononucleosis Negative NEG MISYS Screen Specimen Anatomical Collection Method Collection Time Receive d Time (Source) Location / / Volume Laterality 12/14/2007 6:35 PM 8 6:24 CDT PM CDT Faustino Loja MD LAB - BLOOD ORDERABLES Performing Organization Address City/[facility]/ZIP Code Phon e Number MISYS (ABNORMAL) Routine UA with microscopic (12/14/2007 5:35 PM CDT) [facility] Method Time Signature Source Midstream MISYS Urine Color Urine Light Yellow MISYS Appearance Urine Clear MISYS Glucose Urine Negative NEG mg/dL MISYS Bilirubin Urine Negative NEG MISYS Ketones Urine Negative NEG mg/dL MISYS Specific [place] 1.002 (L) 1.003 - MISYS Urine 1.035 Blood Urine Negative NEG MISYS pH Urine 6.0 5.0 - 7.0 MISYS pH Protein Albumin Negative NEG mg/dL MISYS Urine Urobilinogen Normal 0.0 - 2.0 MISYS mg/dL mg/dL Nitrite Urine Negative NEG MISYS Leukocyte Negative NEG MISYS Esterase Urine WBC Urine 2 0 - 2 MISYS /HPF RBC Urine <1 0 - 2 MISYS /HPF Squamous 1 0 - 1 MISYS Epithelial /HPF /HPF Urine Bacteria Urine Few (A) NEG /HPF MISYS Specimen Anatomical Collection Method Collection Time Receive d Time (Source) Location / / Volume Laterality 12/14/2007 5:35 PM 8 5:51 CDT PM CDT Mo Ortiz MD LAB - URINE ORDERABLES Performing Organization Address [facility] Phon e Number MISYS HCG qualitative urine (12/14/2007 5:35 PM CDT) P athologist Signature HCG Qual Urine Negative NEG MISYS Specimen Anatomical Collection Method Collection Time Receive d Time (Source) Location / / Volume Laterality 12/14/2007 5:35 PM 8 6:47 CDT PM CDT Janis Cuellar MD LAB - URINE ORDERABLES Performing Organization Address [facility] Phon e Number MISYS Urine culture (12/14/2007 5:35 PM CDT) [facility] Method Time Signature Specimen Midstream MISYS Description Urine Culture Micro No growth MISYS Micro Report FINAL MISYS Status 12/16/2007 Specimen Anatomical Collection Method Collection Time Receive d Time (Source) Location / / Volume Laterality 12/14/2007 5:35 PM 8 6:47 CDT PM CDT Janis Cuellar MD LAB - MICRO GENERAL ORDERABL ES Performing Organization Address City/[facility] Phon e Number MISYS documented in this encounter Visit Diagnoses Not on filedocumented in this encounter Care Teams Program Manager Environmental Planning Relationship Specialty Start Date End Date Janis Cuellar MD PCP - General 07/08/01 10/12/19 [address] [facility] [address] [place] [address] documented as of this encounter
--- OUTSIDE RECORDS SUMMARY | 2022-04-25 22:27 | XMS_ITS | Encounter Summary ---
:1985 Author Organization [place] Address [address] [place] [address] Care Team Providers Name Role Phone Janis Cuellar MD Primary Care Provider Encounter Details Date Type Department Care Team Description 10/12/2007 Orders Only [facility] Uns pecified Iron [facility] y Deficiency Anemia [address] [place] [address] Social History Tobacco Use [...] Name Priority Date/Time Associated Diagnosis Comme nts HCL HEMOGLOBIN Routine 10/12/2007 4:20 PM Unspecified Iron Res ults for this NONLAB CDT Deficiency Anemia procedure are in the results section. documented in this encounter Results (ABNORMAL) HGB (10/12/2007 4:20 PM CDT) athologist Signature Hemoglobin 9.4 (L) 11.7 - 15.7 [place] g/dL [facility] Comment: HYPOCHROMIA AND MICROCYTES PRES ENT Specimen Anatomical Collection Method Collection Time Receive d Time (Source) Location / / Volume Laterality 10/12/2007 4:20 PM 8 4:25 CDT PM CDT Janis Cuellar MD LABORATORY Performing Organization Address City/State/ZIP Code Phon e Number [facility] [address] [place], [place] [address] [address] [facility] documented in this encounter Visit Diagnoses Diagnosis Iron deficiency anemia, unspecified documented in this encounter Care Teams Marketing Representative Relationship Specialty Start Date End Date Janis Cuellar MD PCP - General 07/08/01 10/12/19 [address] [place] [address] documented as of this encounter
--- OUTSIDE RECORDS SUMMARY | 2022-04-25 22:28 | XMS_ITS | Encounter Summary ---
:1985 Author Organization [facility] Address [address] [place] [address] Care Team Providers Name Role Phone Janis Cuellar MD Primary Care Provider Encounter Details Date Type Department Care Team Description 01/07/2006 Historic Results INTERFACED REPORT Hill Joaquin MD [facility] [address] [place], [place] [phone] (Wo rk) Social History Tobacco Use Types Packs/Day Years Used Date Smoking Tobacco: Never Assessed Sex Assigned at Date Recorded Not on file documented as of this encounter Plan of Treatment Not on filedocumented as of this encounter Procedures Procedure Name Priority Date/Time Associated Comments Diagnosis HCG QUALITATIVE URINE STAT 01/07/2006 10:30 Re sults for this PM CDT procedure are i n the results section. ROUTINE UA WITH STAT 01/07/2006 10:30 Results for this MICROSCOPIC PM CDT procedure are i n the results section. documented in this encounter Results (ABNORMAL) Routine UA with microscopic (01/07/2006 10:30 PM CDT) Component Value Ref Test Analysis Performed At [facility] Range Method Time Signature Source Unspecified MISYS Urine Color Urine Yellow MISYS Appearance Urine Slightly Cloudy MISYS Glucose Urine Negative NEG MISYS mg/dL Bilirubin Urine Negative NEG MISYS Ketones Urine Negative NEG MISYS mg/dL Specific [place] 1.009 1.003 - MISYS Urine 1.035 Blood Urine Moderate (A) NEG MISYS pH Urine 7.0 5.0 - MISYS 7.0 pH Protein Albumin 10 (A) NEG MISYS Urine mg/dL Urobilinogen Normal 0.0 - MISYS mg/dL 2.0 mg/dL Nitrite Urine Negative NEG MISYS Leukocyte Large (A) NEG MISYS Esterase Urine WBC Urine 99 (H) 0 - 2 MISYS /HPF RBC Urine 73 (H) 0 - 2 MISYS /HPF Squamous <1 0 - 1 MISYS Epithelial /HPF /HPF Urine Bacteria Urine Few (A) NEG /HPF MISYS WBC Clumps Present (A) NEG /HPF MISYS Mucous Urine Present (A) NEG /LPF MISYS Specimen Anatomical Collection Method Collection Time Receive d Time (Source) Location / / Volume Laterality 01/07/2006 10:30 01/07/2006 PM CDT 10:44 PM CDT Gallo Joaquin MD LAB - URINE ORDERABLES Performing Organization Address City/State/ZIP Code Phon e Number MISYS HCG qualitative urine (01/07/2006 10:30 PM CDT) P athologist Signature HCG Qual Urine Negative NEG MISYS Specimen Anatomical Collection Method Collection Time Receive d Time (Source) Location / / Volume Laterality 01/07/2006 10:30 01/07/2006 PM CDT 10:44 PM CDT Gallo Joaquin MD LAB - URINE ORDERABLES Performing Organization Address City/State/ZIP Code Phon e Number MISYS documented in this encounter Visit Diagnoses Not on filedocumented in this encounter Care Teams Grades 1 6 Tutor Relationship Specialty Start Date End Date Janis Cuellar MD PCP - General 07/08/01 10/12/19 [address] [facility] [address] [place] [address] documented as of this encounter
--- OUTSIDE RECORDS SUMMARY | 2022-04-25 22:28 | XMS_ITS | Encounter Summary ---
:1985 Author Organization [place] Address [address] [place] [address] Care Team Providers Name Role Phone Janis Cuellar MD Primary Care Provider Encounter Details Date Type Department Care Team Description 04/12/2007 Emergency room Mo Ortiz M D [facility] [address] [place], [place] [address] (Wo rk) Social History Tobacco Use Types Packs/Day Years Used Date Smoking Tobacco: Never Alcohol Use Standard Drinks/Week Comments Yes 0 (1 standard drink = 0.6 oz pure alcoho l) casual Sex Assigned at Date Recorded Not on file documented as of this encounter Progress Notes Mo Ortiz - 04/17/2007 3:18 PM CONVEYOR OPERATOR FINAL CHIEF COMPLAINT: Feels weak. HISTORY OF PRESENT ILLNESS: This is a 21-year-old white female with a history of severe anemia who comes in for evaluation. She states that she was seen on the by her doctor and was found to havea hemoglobin of 4.6. She was transfused with 2 units and her recheck hemoglobin on 03/31 was at 7.9. She has been iron since then and she says her weakness has gotten slightly better but not a whole lot, but she was starting to feel good. Today she started her menstrual period which she has not had forat least 4 months. She is having abdominal cramping and menses appear to be heavy with clots. She was soaking through one tampon every hour and she became concerned because she started to feel a littleweak and had an episode of dizziness with this heavy bleeding so she decided to come in and get checked out for this. There was no loss of consciousness, no syncopal episode. No abdominal pain other than low abdominal cramping, No fevers and chills, no nausea, vomiting. She is not on any controlpills but she is on iron supplements. The patient was told by her doctor today that she has a urinary tract infection and has a prescription waiting for her at the pharmacy that she has not yet picked up. REVIEW OF SYSTEMS: Please see above, otherwise negative. ALLERGIES: Amoxicillin. MEDICATIONS: Iron supplement. PAST MEDICAL HISTORY: Kidney stones, anemia. PAST SURGICAL HISTORY: Appendectomy, kidney stone removal. SOCIAL HISTORY: No smoking, drugs or alcohol. She denies being sexually active at this point. PHYSICAL EXAMINATION: VITAL SIGNS: Blood pressure 112/71, pulse 103, respirations 18, temperature 97.1, O2 sat 100% on room air. GENERAL: The patient is alert and oriented, in no acute discomfort. SKIN: Slightly pale. HEENT: Normal except for pale conjunctivae and sclerae bilaterally. NECK: Soft and supple, no lymphadenopathy. LUNGS: Clear bilaterally. HEART: Regular rate and rhythm, no murmurs, rubs or gallops. ABDOMEN: Soft, nontender, nondistended with good bowel sounds. PELVIC: Pelvic exam revealed normal inspection. There is actually no bleeding on my examination. The cervix is closed. No adnexal masses or tenderness. No CMT, no discharge seen. EXTREMITIES: Normal. LABORATORY AND DIAGNOSTIC EVALUATION: CBC showed a white count of 7.4, hemoglobin 8.7, hematocrit 30.3, platelets 326,000. INR is 1.05. Electrolytes and LFTs were normal. Type and screen is O positive. Wet prep was normal. Urine is negative. Urinalysis revealed positive nitrites and trace leukocyte esterase, 21 WBC, 3 RBC. EMERGENCY DEPARTMENT COURSE: The patient had an IV started and had labs drawn and had a liter of fluids given. She was given Toradol for pain. She currently had no bleeding on my examination and it appears that this is maybe a heavy menstrual period. She was observed here with no continued heavy bleeding. Her hemoglobin is 8.7 which is the best that she has been, so I did not think she needs to be admitted at this time and she felt better after the fluids and the Toradol. I did tell her to continuewith iron supplements and she is to start taking the antibiotics prescribed to her by her doctor fora urinary tract infection. She can take Motrin or Tylenol at home for the menstrual cramping that she is experiencing. I did tell her to keep an eye out for the heavy bleeding. If it returns and is persistent and she feels dizzy and light-headed or passes out, then she needs to come back immediately. I do want her to be rechecked by her doctor in 2 days to make sure that she is still doing okay. Her hemoglobin is better; however, it is still on the low side. Her mom was here and did agree with that and she agreed to take her in to see her doctor in 2 days. They understand the instructions and had no further questions. EMERGENCY DEPARTMENT DIAGNOSES: 1. Urinary tract infection. 2. Anemia, chronic. 3. Menstrual cramps. Electronically signed on 04/17/2007 15:17 by MO ORTIZ MD MT: [id number] Name: ESTEFANIA MCKEON MRN: [id number] Account: [id number] : 1985 Visit Date: 04/12/2007 Document: [id number] EYOR OPERATOR documented in this encounter Plan of Treatment Not on filedocumented as of this encounter Visit Diagnoses Not on filedocumented in this encounter Care Teams Industrial Energy Engineer Relationship Specialty Start Date End Date Janis Cuellar MD PCP - General 07/08/01 10/12/19 Jamie GAMBINO [address] [address] documented as of this encounter
--- OUTSIDE RECORDS SUMMARY | 2022-04-25 22:28 | XMS_ITS | Encounter Summary ---
:1985 Author Organization [place] Address [address] [place] [address] Care Team Providers Name Role Phone Janis Cuellar MD Primary Care Provider Encounter Details Date Type Department Care Team Description 03/13/2007 Historic Results [facility] Janis Cuellar MD [place] [address] [facility] [address] [place] [address] [place], [place] [phone] (Wo rk) [address] [phone] Social History Tobacco Use Types Packs/Day Years Used Date Smoking Tobacco: Never Alcohol Use Standard Drinks/Week Comments Yes 0 (1 standard drink = 0.6 oz pure alcoho l) casual Sex Assigned at Date Recorded Not on file documented as of this encounter Plan of Treatment Not on filedocumented as of this encounter Procedures Procedure Name Priority Date/Time Associated Diagnosis Comme nts FOLATE Routine 03/13/2007 1:00 PM Results f or this CDT procedure are i n the results section . VITAMIN B12 Routine 03/13/2007 1:00 PM Results f or this CDT procedure are i n the results section . documented in this encounter Results Folate (03/13/2007 1:00 PM CDT) P athologist Signature Folate 21.6 >3.3 ng/mL MISYS Comment: Interp: >5.4 ng/mL = Normal Specimen Anatomical Collection Method Collection Time Receive d Time (Source) Location / / Volume Laterality 03/13/2007 1:00 PM 7 5:37 CDT PM CDT Janis Cuellar MD LAB - BLOOD ORDERABLES Performing Organization Address City/State/ZIP Code Phon e Number MISYS Vitamin B12 (03/13/2007 1:00 PM CDT) P athologist Signature Vitamin B12 336 >210 pg/mL MISYS Comment: Interp: [phone] = Normal Specimen Anatomical Collection Method Collection Time Receive d Time (Source) Location / / Volume Laterality 03/13/2007 1:00 PM 7 5:38 CDT PM CDT Janis Cuellar MD LAB - BLOOD ORDERABLES Performing Organization Address City/[facility] Code Phon e Number MISYS documented in this encounter Visit Diagnoses Not on filedocumented in this encounter Care Teams Director Of Epidemiology Relationship Specialty Start Date End Date Janis Cuellar MD PCP - General 07/08/01 10/12/19 [address] [place] [address] documented as of this encounter
--- OUTSIDE RECORDS SUMMARY | 2022-04-25 22:28 | XMS_ITS | Encounter Summary ---
:1985 Author Organization [place] Address [address] [place] [address] Care Team Providers Name Role Phone Janis Cuellar MD Primary Care Provider Encounter Details Date Type Department Care Team Description 10/02/2006 Historic Results INTERFACED REPORT Madeline Montilla MD [address] [place], [place] [address] (Wo rk) Social History Tobacco Use Types Packs/Day Years Used Date Smoking Tobacco: Never Assessed Sex Assigned at Date Recorded Not on file documented as of this encounter Plan of Treatment Not on filedocumented as of this encounter Procedures Procedure Name Priority Date/Time Associated Comments Diagnosis URINE CULTURE Routine 10/02/2006 9:21 PM Results for this CDT procedure are i n the results section. HCG QUALITATIVE URINE Routine 10/02/2006 9:15 PM Results for this CDT procedure are i n the results section. ROUTINE UA WITH Routine 10/02/2006 9:15 PM Result s for this MICROSCOPIC CDT procedure are i n the results section. HEMOGRAM DIFFERENTIAL Routine 10/02/2006 9:10 PM Results for this AND PLATELET CDT procedure are i n the results section. PLATELET COUNT Routine 10/02/2006 9:10 PM Results for this CDT procedure are i n the results section. BASIC METABOLIC PANEL Routine 10/02/2006 9:10 PM Results for this CDT procedure are i n the results section. documented in this encounter Results Urine culture (10/02/2006 9:21 PM CDT) [facility] Method Time Signature Specimen Unspecified MISYS Description Urine Culture Micro >100,000 MISYS colonies/mL Escherichia coli Micro Report FINAL [id number] MISYS Status Specimen Anatomical Collection Method Collection Time Receive d Time (Source) Location / / Volume Laterality 10/02/2006 9:21 PM 7 5:28 CDT AM CDT Organism Antibiotic Method Susceptibility >100,000 colonies/ml Ampicillin <=2 Suscept ible escherichia coli (pamela) >100,000 colonies/ml Amoxicillin/Clav <=2 Suscep tible escherichia coli (pamela) >100,000 colonies/ml Ceftriaxone <=1 Suscept ible escherichia coli (pamela) >100,000 colonies/ml Cefazolin <=4 Suscept ible escherichia coli (pamela) >100,000 colonies/ml Ciprofloxacin <=0.25 Susc eptible escherichia coli (pamela) >100,000 colonies/ml Nitrofurantoin 32 Suscepti ble escherichia coli (pamela) >100,000 colonies/ml Gentamicin <=1 [...] Axetil 4 Suscept ible escherichia coli (pamela) Jossie Montilla MD LAB - MICRO GENERAL ORDERABL ES Performing Organization Address City/State/ZIP Code Phon e Number MISYS HCG qualitative urine (10/02/2006 9:15 PM CDT) P athologist Signature HCG Qual Urine Negative NEG MISYS Specimen Anatomical Collection Method Collection Time Receive d Time (Source) Location / / Volume Laterality 10/02/2006 9:15 PM 7 5:27 CDT AM CDT Jossie Montilla MD LAB - URINE ORDERABLES Performing Organization Address City/State/ZIP Code Phon e Number MISYS (ABNORMAL) Routine UA with microscopic (10/02/2006 9:15 PM CDT) Component Value Ref Test Analysis Performed At Patholo gist Range Method Time Signature Source Unspecified MISYS Urine Color Urine Yellow MISYS Appearance Urine Slightly Cloudy MISYS Glucose Urine Negative NEG MISYS mg/dL Bilirubin Urine Negative NEG MISYS Ketones Urine Negative NEG MISYS mg/dL Specific [place] 1.014 1.003 - MISYS Urine 1.035 Blood Urine Small (A) NEG MISYS pH Urine 5.5 5.0 - MISYS 7.0 pH Protein Albumin 10 (A) NEG MISYS Urine mg/dL Urobilinogen Normal 0.0 - MISYS mg/dL 2.0 mg/dL Nitrite Urine Negative NEG MISYS Leukocyte Large (A) NEG MISYS Esterase Urine WBC Urine 180 (H) 0 - 2 MISYS /HPF Comment: Reviewed, acceptable RBC Urine 19 (H) 0 - 2 /HPF MISYS Squamous Epithelial /HPF Urine 1 0 - 1 /HPF MISYS Transitional Epi <1 0 - 1 /HPF MISYS Bacteria Urine Few (A) NEG /HPF MISYS WBC Clumps Present (A) NEG /HPF MISYS Amorphous Crystals Few (A) NEG /HPF MISYS Mucous Urine Present (A) NEG /LPF MISYS Specimen Anatomical Collection Method Collection Time Receive d Time (Source) Location / / Volume Laterality 10/02/2006 9:15 PM 7 5:27 CDT AM CDT Jossie Montilla MD LAB - URINE ORDERABLES Performing Organization Address City/State/ZIP Code Phon e Number MISYS Basic metabolic panel (10/02/2006 9:10 PM CDT) P athologist Signature Sodium 142 133 - 144 MISYS mmol/L Potassium 3.5 3.4 - 5.3 MISYS mmol/L Chloride 102 94 - 109 MISYS mmol/L Carbon Dioxide 26 20 - 32 MISYS mmol/L Glucose 84 60 - 99 MISYS mg/dL Urea Nitrogen 12 5 - 24 MISYS mg/dL Creatinine 0.84 0.60 - MISYS 1.30 mg/dL GFR Estimate >90 >60 MISYS mL/min/1.7 m2 GFR Estimate If >90 >60 MISYS Black mL/min/1.7 m2 Calcium 9.6 8.5 - 10.4 MISYS mg/dL Anion Gap 13 6 - 17 MISYS mmol/L Specimen Anatomical Collection Method Collection Time Receive d Time (Source) Location / / Volume Laterality 10/02/2006 9:10 PM 7 5:27 CDT AM CDT Jossie Montilla MD LAB - BLOOD ORDERABLES Performing Organization Address City/State/ZIP Code Phon e Number MISYS (ABNORMAL) Hemogram differential and platelet (10/02/2006 9:10 PM CDT) [facility] Method Time Signature MCV 72 (L) 78 - 100 MISYS fl MCH 22.2 (L) 26.5 - MISYS 33.0 pg MCHC 30.7 (L) 31.5 - MISYS 36.5 g/dL RDW 16.9 (H) 10.0 - MISYS 15.0 % WBC 6.8 4.0 - MISYS 11.0 10e9/L RBC Count 4.83 3.8 - 5.2 MISYS 10e12/L Hemoglobin 10.7 (L) 11.7 - MISYS 15.7 g/dL Hematocrit 34.9 (L) 35.0 - MISYS 47.0 % % Neutrophils 73 40 - 75 % MISYS % Lymphocytes 15 (L) 20 - 48 % MISYS % Monocytes 12 0 - 12 % MISYS % Eosinophils 0 0 - 6 % MISYS % Basophils 0 0 - 2 % MISYS Absolute 5.0 1.6 - 8.3 MISYS Neutrophil 10e9/L Absolute 1.0 0.8 - 5.3 MISYS Lymphocytes 10e9/L Absolute 0.8 0.0 - 1.3 MISYS Monocytes 10e9/L Absolute 0.0 0.0 - 0.7 MISYS Eosinophils 10e9/L Absolute 0.0 0.0 - 0.2 MISYS Basophils 10e9/L Platelet Estimate Normal MISYS Diff Method Automated MISYS Method Anisocytosis Slight MISYS Polychromasia Slight MISYS Increase Ovalocytes Slight MISYS Microcytes Present MISYS Specimen Anatomical Collection Method Collection Time Receive d Time (Source) Location / / Volume Laterality 10/02/2006 9:10 PM 7 5:27 CDT AM CDT Jossie Montilla MD LAB - BLOOD ORDERABLES Performing Organization Address City/State/ZIP Code Phon e Number MISYS Platelet count (10/02/2006 9:10 PM CDT) P athologist Signature Platelet Count 232 150 - 450 MISYS 10e9/L Specimen Anatomical Collection Method Collection Time Receive d Time (Source) Location / / Volume Laterality 10/02/2006 9:10 PM 7 5:27 CDT AM CDT Jossie Montilla MD LAB - BLOOD ORDERABLES Performing Organization Address City/State/ZIP Code Phon e Number MISYS documented in this encounter Visit Diagnoses Not on filedocumented in this encounter Care Teams Tobacco Weigher Relationship Specialty Start Date End Date Janis Cuellar MD PCP - General 07/08/01 10/12/19 [address] [facility] [address] [place] [address] documented as of this encounter
--- OUTSIDE RECORDS SUMMARY | 2022-04-25 22:28 | XMS_ITS | Encounter Summary ---
:1985 Author Organization [place] Address [address] [place] [address] Care Team Providers Name Role Phone Janis Cuellar MD Primary Care Provider Encounter Details Date Type Department Care Team Description 10/02/2006 Emergency room Robby Obrien Ma, MD [facility] [place] [address] [facility] [address] [place], [place] [address] (Wo rk) Social History Tobacco Use Types Packs/Day Years Used Date Smoking Tobacco: Never Assessed Sex Assigned at Date Recorded Not on file documented as of this encounter Progress Notes Robby Obrien - 10/06/2006 7:21 AM CDT FINAL CHIEF COMPLAINT: Chills and back pain. HISTORY OF PRESENT ILLNESS: This is a 21-year-old female who has had pain in her back building for a couple days, started to get chills and nausea, no vomiting, no diarrhea. Pain across the lower backover her kidneys, both sides and urinary frequency. She has a history of multiple kidney stone episodes. 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 She has had urinary tract infections before. She has also had her appendix removed. MEDICATIONS: Tylenol #3. ALLERGIES: Amoxicillin. REVIEW OF SYSTEMS: All systems negative except for that stated above. No rash. No neck stiffness orsoreness. SOCIAL HISTORY: She is single and is in school, though she is staying with her parents in [place] right now because she is sick. PHYSICAL EXAMINATION: VITAL SIGNS: Temperature 99.4, pulse 132, respirations 24, blood pressure 108/59, O2 saturation 97%. GENERAL: The patient is alert, cooperative and in no respiratory distress. HEENT: Eyes, conjunctivae are clear. Lids are not swollen. Oropharynx, kind of sticky mucosa without erythema or lesion. NECK: Supple and nontender. BACK: Nontender except for bilateral CVA tenderness. CHEST: Symmetric chest rise to inspiration. LUNGS: Clear to auscultation. CARDIOVASCULAR: She is a bit tachycardic without murmur. ABDOMEN: Soft and nondistended. She has tenderness over both kidneys; otherwise unremarkable. EXTREMITIES: No clubbing, cyanosis or edema. SKIN: Well perfused, no rash. EMERGENCY DEPARTMENT COURSE: I established an IV, I gave her a liter of fluid, and I gave her morphine 4 mg IV. She got 2 dose of that, and it did not seem to do a lot for her, a little bit and then Igave her a mg of Dilaudid and that seemed to help more so with her pain. I also gave her Zofran 4 mgIV. Her urine came back looking like an infection so I ordered Levaquin 500 mg IV. I sent her urine for culture and waited for her blood tests to see how things all looked. Her CBC and chemistry panel looked pretty good. Her urine test was negative. Urinalysis did show large blood. White blood cell count 180, red blood cells 19 with a few bacteria and white blood cell clumps. I felt this was consistent with infection and I felt the exam and such were consistent with pyelonephritis. She cqd515 mg IV Levaquin and because her pain was controlled, she drank a bunch of water while she was here, she felt better though not complete relief. We decided to go ahead and discharge her. She did havea fever at the time of discharge but pulse was improved and she looked better, so it was felt that was safe for discharge. She is going to go home with her mom. They live close that if things were to worsen, she can come back but she is because she is doing better we are going to see how she does home. CLINICAL IMPRESSION: Acute pyelonephritis. CLINICAL PLAN: Levaquin 500 mg for 9 more days for a 10-day course. She is to push fluids. Use Zofran as needed for nausea. Percocet 1-2 tablets every 4-6 hours as needed for pain. She is to follow upwith her primary physician in 3-4 days if not improved or return to the ER if she has escalating symptoms. Electronically signed on 10/06/2006 07:21 by ROBBY OBRIEN MD MT: [id number] Name: ESTEFANIA MCKEON Account: [id number] : 1985 Visit Date: 10/02/2006 Document: [id number] [facility] documented in this encounter Plan of Treatment Not on filedocumented as of this encounter Visit Diagnoses Not on filedocumented in this encounter Care Teams Assistant Superintendent For Curriculum Relationship Specialty Start Date End Date Janis Cuellar MD PCP - General 07/08/01 10/12/19 [address] [facility] [address] [place], [place] [id number] documented as of this encounter
--- OUTSIDE RECORDS SUMMARY | 2022-04-25 22:28 | XMS_ITS | Encounter Summary ---
:1985 Author Organization [place] Address [address] [place] [address] Care Team Providers Name Role Phone Rodolfo Cuellar MD Primary Care Provider Reason for Visit Reason Comments RECHECK F/U from ER, now has sore th roat and stuffyness. Encounter Details Date Type Department Care Team Description 04/24/2007 Office Visit [facility] Rodolfo Cuellar MD IRON DEFIC ANEMIA NOS; Clinic [place] [address] URIN TRACT INFECTION NOS [address] [place] [address] [place], [place] [address] [address] [place], [place] [phone] (Wo rk) [address] [phone] Social History Tobacco Use Types Packs/Day Years Used Date Smoking Tobacco: Never Alcohol Use Standard Drinks/Week Comments Yes 0 (1 standard drink = 0.6 oz pure alcoho l) casual Sex Assigned at Date Recorded Not on file documented as of this encounter Last Filed Vital Signs Vital Sign Reading Time Taken Comments Blood Pressure 100/55 04/24/2007 11:45 AM SCREENING REPRESENTATIVE Pulse 70 04/24/2007 11:45 AM SCREENING REPRESENTATIVE Temperature - - Respiratory Rate - - Oxygen Saturation - - Inhaled Oxygen Concentration - - Weight 55.5 kg (122 lb 6.4 oz) 04/24/2007 11:45 AM SCREENING REPRESENTATIVE Height 174 cm (5' 8.5) 04/24/2007 11:45 AM SCREENING REPRESENTATIVE Body Mass Index 18.34 04/24/2007 11:45 AM SCREENING REPRESENTATIVE documented in this encounter Progress Notes Rodolfo Cuellar - 04/28/2007 9:52 AM SCREENING REPRESENTATIVE Addended by: RODOLFO CUELLAR on: 04/28/2007 9:52:41 AM Modules accepted: Orders ENING REPRESENTATIVE Kaylin Fernandes - 04/24/2007 5:52 PM SCREENING REPRESENTATIVE Addended by: KAYLIN FERNANDES on: 04/24/2007 5:52:56 PM Modules accepted: Orders ENING REPRESENTATIVE Rodolfo Cuellar - 04/24/2007 12:09 PM CST Subjective: Estefania Mckeon is a 21 year old female who presents for follow-up of anemia, fatigue, UTI. She was seen at ER 12 days ago with fatigue. Her period had started and was heavy, clots and crampy. She had hgb 8.7 then. She started on antibiotic that day for her UTI. Toradal was given in ER which helped cramping. Her period lasted 2 days. She feels some fatigue still but feels more related to working a lot. No worse than before. No acute concerns. Patient Active Problem List Diagnoses Code ??? IRON DEFIC ANEMIA NOS 280.9 Current outpatient prescriptions Medication Sig ??? IRON 28 MG OR TABS 2 daily Objective: Patient alert in NAD BP 100/55 Pulse 70 Ht 5' 8.5 (1.74m) Wt 122 lbs 6.4 oz (55.5kg) Pale. Assessment/Plan: 1. UTI; recheck urine as she had no symptoms. 2. Anemia: recheck hgb and iron. ENING REPRESENTATIVE documented in this encounter Nursing Notes 04/24/2007 11:45 AM CST >> ALESSIA EUCEDA 04/24/2007 11:56 am Patient presents with: RECHECK - F/U from ER, now has sore throat and stuffyness. Initial BP 100/55 Pulse 70 Ht 5' 8.5 (1.74m) Wt 122 lbs 6.4 oz (55.5kg) Body mass index is 18.34 kg/(m^2).. BP completed using cuff size regular Alessia Euceda/RENAN documented in this encounter Plan of Treatment Not on filedocumented as of this encounter Procedures Procedure Name Priority Date/Time Associated Comments Diagnosis HCL CULTURE, URINE Routine 04/24/2007 12:07 PM Urin Tract Re sults for this (MISYS) SCREENING REPRESENTATIVE Infection Nos procedure are in the results section. HCL HEMOGLOBIN Routine 04/24/2007 12:07 PM Iron Defic Anemia R esults for this NONLAB SCREENING REPRESENTATIVE Nos procedure are i n the results section. HCL IRON Routine 04/24/2007 12:07 PM Iron Defic Anemia Res ults for this SCREENING REPRESENTATIVE Nos procedure are i n the results section. documented in this encounter Results CULTURE, URINE (MISYS) (04/24/2007 12:07 PM SCREENING REPRESENTATIVE) [facility] Method Time Signature Specimen Midstream [place] Description Urine [facility] Culture Micro Specimen not [place] received [facility] Report status FINAL [place] 04/24/2007 [facility] Specimen Anatomical Collection Method Collection Time Receive d Time (Source) Location / / Volume Laterality 04/24/2007 12:07 04/24/2007 PM SCREENING REPRESENTATIVE 12:12 PM SCREENING REPRESENTATIVE Rodolfo Cuellar MD LABORATORY Performing Organization Address City/[facility]/ZIP Code Phon e Number [facility] [address] [place] [address] [address] [facility] (ABNORMAL) IRON (04/24/2007 12:07 PM SCREENING REPRESENTATIVE) athologist Signature Iron 8 (L) 35 - 180 [facility] ug/dL [facility] Specimen Anatomical Collection Method Collection Time Receive d Time (Source) Location / / Volume Laterality 04/24/2007 12:07 04/24/2007 PM SCREENING REPRESENTATIVE 12:12 PM SCREENING REPRESENTATIVE Rodolfo Cuellar MD LABORATORY Performing Organization Address City/[facility]/ZIP Code Phon e Number [facility] [address] [place] [address] [facility] (ABNORMAL) HGB (04/24/2007 12:07 PM SCREENING REPRESENTATIVE) athologist Signature Hemoglobin 7.7 (LL) 11.7 - 15.7 [place] g/dL [facility] Comment: Results confirmed by repeat prateek t Specimen Anatomical Collection Method Collection Time Receive d Time (Source) Location / / Volume Laterality 04/24/2007 12:07 04/24/2007 PM SCREENING REPRESENTATIVE 12:12 PM SCREENING REPRESENTATIVE Rodolfo Cuellar MD LABORATORY Performing Organization Address City/State/ZIP Code Phon e Number [facility] [address] [place], [place] [address] [address] [facility] documented in this encounter Visit Diagnoses Diagnosis Iron deficiency anemia, unspecified Urinary tract infection, site not specif ied documented in this encounter Care Teams Demurrage Worker Relationship Specialty Start Date End Date Rodolfo Cuellar MD PCP - General 07/08/01 10/12/19 [address] [place] [address] documented as of this encounter
--- OUTSIDE RECORDS SUMMARY | 2022-04-25 22:28 | XMS_ITS | Encounter Summary ---
:1985 Author Organization [facility] Address [address] [place] [address] Care Team Providers Name Role Phone Janis Cuellar MD Primary Care Provider Encounter Details Date Type Department Care Team Description 04/12/2007 Historic Results INTERFACED REPORT Mo Ortiz MD [facility] [address] [place], [place] [address] (Wo rk) Social History [...] Associated Comments Diagnosis HCG QUALITATIVE URINE STAT 04/12/2007 5:00 PM Results for this TELEPHONE TECHNICIAN procedure are i n the results section. ROUTINE UA WITH STAT 04/12/2007 5:00 PM Result s for this MICROSCOPIC TELEPHONE TECHNICIAN procedure are i n the results section. WET PREPARATION STAT 04/12/2007 4:25 PM Result s for this TELEPHONE TECHNICIAN procedure are i n the results section. HEMOGRAM DIFFERENTIAL STAT 04/12/2007 4:00 PM Results for this AND PLATELET TELEPHONE TECHNICIAN procedure are i n the results section. INR STAT 04/12/2007 4:00 PM Results f or this TELEPHONE TECHNICIAN procedure are i n the results section. COMPREHENSIVE STAT 04/12/2007 4:00 PM Results for this METABOLIC PANEL TELEPHONE TECHNICIAN procedure ar e in the results section. ABO/RH TYPE AND SCREEN STAT 04/12/2007 4:00 PM Results for this TELEPHONE TECHNICIAN procedure are i n the results section. documented in this encounter Results HCG qualitative urine (04/12/2007 5:00 PM TELEPHONE TECHNICIAN) P athologist Signature HCG Qual Urine Negative NEG MISYS Specimen Anatomical Collection Method Collection Time Receive d Time (Source) Location / / Volume Laterality 04/12/2007 5:00 PM 7 4:05 TELEPHONE TECHNICIAN PM TELEPHONE TECHNICIAN Mo Ortiz MD LAB - URINE ORDERABLES Performing Organization Address City/[facility] Phon e Number MISYS (ABNORMAL) Routine UA with microscopic (04/12/2007 5:00 PM TELEPHONE TECHNICIAN) Component Value Ref Test Analysis Performed At [facility] Labs Range Method Time Signature Source Unspecified MISYS Urine Color Urine Yellow MISYS Appearance Urine Slightly Cloudy MISYS Glucose Urine Negative NEG MISYS mg/dL Bilirubin Urine Negative NEG MISYS Ketones Urine 10 (A) NEG MISYS mg/dL Specific [place] 1.018 1.003 - MISYS Urine 1.035 Blood Urine Negative NEG MISYS pH Urine 6.0 5.0 - MISYS 7.0 pH Protein Albumin 10 (A) NEG MISYS Urine mg/dL Urobilinogen Normal 0.0 - MISYS mg/dL 2.0 mg/dL Nitrite Urine Positive (A) NEG MISYS Leukocyte Trace (A) NEG MISYS Esterase Urine WBC Urine 21 (H) 0 - 2 MISYS /HPF RBC Urine 3 (H) 0 - 2 MISYS /HPF Squamous <1 0 - 1 MISYS Epithelial /HPF /HPF Urine Bacteria Urine Many (A) NEG /HPF MISYS Mucous Urine Present (A) NEG /LPF MISYS Specimen Anatomical Collection Method Collection Time Receive d Time (Source) Location / / Volume Laterality 04/12/2007 5:00 PM 7 4:05 TELEPHONE TECHNICIAN PM TELEPHONE TECHNICIAN Mo Ortiz MD LAB - URINE ORDERABLES Performing Organization Address City/State/ZIP Code Phon e Number MISYS Wet prep (04/12/2007 4:25 PM TELEPHONE TECHNICIAN) [facility] Method Time Signature Specimen Vagina MISYS Description Micro Report FINAL MISYS Status 04/12/2007 Wet Prep No Trichomonas MISYS seen Comment: No clue cells seen No yeast seen Specimen Anatomical Collection Method Collection Time Receive d Time (Source) Location / / Volume Laterality 04/12/2007 4:25 PM 7 4:36 TELEPHONE TECHNICIAN PM TELEPHONE TECHNICIAN Janis Cuellar MD LAB - MICRO GENERAL ORDERABL ES Performing Organization Address City/State/ZIP Code Phon e Number MISYS (ABNORMAL) Hemogram differential and platelet (04/12/2007 4:00 PM TELEPHONE TECHNICIAN) athologist Signature MCV 70 (L) 78 - 100 fl MISYS MCH 20.1 (L) 26.5 - 33.0 MISYS pg MCHC 28.7 (L) 31.5 - 36.5 MISYS g/dL Comment: Reviewed: OK with previous RDW 22.4 (H) 10.0 - 15.0 % MISYS WBC 7.4 4.0 - 11.0 10e9/L MISYS RBC Count 4.33 3.8 - 5.2 10e12/L MISYS Hemoglobin 8.7 (L) 11.7 - 15.7 g/dL MISYS Hematocrit 30.3 (L) 35.0 - 47.0 % MISYS % Neutrophils 58 40 - 75 % MISYS % Lymphocytes 25 20 - 48 % MISYS % Monocytes 16 (H) 0 - 12 % MISYS % Eosinophils 1 0 - 6 % MISYS % Basophils 0 0 - 2 % MISYS Platelet Count 326 150 - 450 10e9/L MISYS Absolute Neutrophil 4.3 1.6 - 8.3 10e9/L MIS YS Absolute Lymphocytes 1.8 0.8 - 5.3 10e9/L DE SYS Absolute Monocytes 1.2 0.0 - 1.3 10e9/L MISY S Absolute Eosinophils 0.1 0.0 - 0.7 10e9/L DE SYS Absolute Basophils 0.0 0.0 - 0.2 10e9/L MISY S Diff Method Automated Method MISYS Specimen Anatomical Collection Method Collection Time Receive d Time (Source) Location / / Volume Laterality 04/12/2007 4:00 PM 7 4:05 TELEPHONE TECHNICIAN PM TELEPHONE TECHNICIAN Mo Ortiz MD LAB - BLOOD ORDERABLES Performing Organization Address City/State/ZIP Code Phon e Number MISYS INR (04/12/2007 4:00 PM TELEPHONE TECHNICIAN) athologist Signature INR 1.05 0.86 - 1.14 MISYS Specimen Anatomical Collection Method Collection Time Receive d Time (Source) Location / / Volume Laterality 04/12/2007 4:00 PM 7 4:05 TELEPHONE TECHNICIAN PM TELEPHONE TECHNICIAN Mo Ortiz MD LAB - BLOOD ORDERABLES Performing Organization Address [facility] Code Phon e Number MISYS (ABNORMAL) Comprehensive metabolic panel (04/12/2007 4:00 PM TELEPHONE TECHNICIAN) Analysis Performed At Patho logist Time Signature Sodium 142 133 - 144 MISYS mmol/L Potassium 3.5 3.4 - 5.3 MISYS mmol/L Chloride 106 94 - 109 MISYS mmol/L Carbon Dioxide 24 20 - 32 MISYS mmol/L Glucose 70 60 - 99 MISYS mg/dL Urea Nitrogen 9 5 - 24 MISYS mg/dL Creatinine 0.73 0.60 - MISYS 1.30 mg/dL GFR Estimate >90 >60 MISYS mL/min/1.7 m2 GFR Estimate If >90 >60 MISYS Black mL/min/1.7 m2 Calcium 9.0 8.5 - 10.4 MISYS mg/dL AST 26 0 - 45 U/L MISYS Protein Total 7.8 6.0 - 8.2 MISYS g/dL Anion Gap 11 6 - 17 MISYS mmol/L Albumin 4.8 (H) 3.3 - 4.6 MISYS g/dL ALT 24 0 - 50 U/L MISYS Alkaline 69 40 - 150 MISYS Phosphatase U/L Bilirubin Total 0.6 0.2 - 1.3 MISYS mg/dL Specimen Anatomical Collection Method Collection Time Receive d Time (Source) Location / / Volume Laterality 04/12/2007 4:00 PM 7 4:05 TELEPHONE TECHNICIAN PM TELEPHONE TECHNICIAN Mo Ortiz MD LAB - BLOOD ORDERABLES Performing Organization Address [facility] Phon e Number MISYS ABO/Rh type and screen (04/12/2007 4:00 PM TELEPHONE TECHNICIAN) Analysis Performed At Patho logist Time Signature ABO O MISYS RH(D) Pos MISYS Antibody Neg MISYS Screen Specimen 04/15/2007 MISYS Expires Specimen Anatomical Collection Method Collection Time Receive d Time (Source) Location / / Volume Laterality 04/12/2007 4:00 PM 7 4:05 TELEPHONE TECHNICIAN PM TELEPHONE TECHNICIAN Mo Ortiz MD LAB - BLOOD BANK TEST ORDER Performing Organization Address City/State/ZIP Code Phon e Number MISYS documented in this encounter Visit Diagnoses Not on filedocumented in this encounter Care Teams Individual Pension Adviser Relationship Specialty Start Date End Date Janis Cuellar MD PCP - General 07/08/01 10/12/19 [address] [place] [address] documented as of this encounter
--- OUTSIDE RECORDS SUMMARY | 2022-04-25 22:28 | XMS_ITS | Encounter Summary ---
:1985 Author Organization [facility] Address [address] [place] [address] Care Team Providers Name Role Phone Janis Cuellar MD Primary Care Provider Reason for Visit Reason Onset Date Comments Results 03/17/2007 Labs Encounter Details Date Type Department Care Team Description 03/17/2007 Telephone [facility] Tracey Cuellar MD Results (Labs) [place] [address] [place] [address] [address] [place] [address] [phone] Social History Tobacco Use Types Packs/Day Years Used Date Smoking Tobacco: Never Alcohol Use Standard Drinks/Week Comments Yes 0 (1 standard drink = 0.6 oz pure alcoho l) casual Sex Assigned at Date Recorded Not on file documented as of this encounter Miscellaneous Notes Telephone Encounter - Janis Cuellar - 03/23/2007 12:36 PM CDT Noted. Recommend generate new encounter if she calls back. Telephone Encounter - Alessia Vargas - 03/23/2007 12:16 PM CDT Talked to patients mom. She said that Estefania moved back to her own place now that she is feeling better. Mother said she will get a hold of her for sure today and have her call us and remind her about getting her labs redone. She said she was feeling better but was worried if this is going to happenagain. I will leave this open for a few days and see if she calls back. Alessia Vargas/RENAN Telephone Encounter - Janis Cuellar - 03/23/2007 12:00 PM CDT Please try to call her again and check how she is doing. Telephone Encounter - Alessia Vargas - 03/17/2007 10:22 AM CDT Left message on answering machine for patient. Alessia Vargas/RENAN Telephone Encounter - Janis Cuellar - 03/17/2007 9:29 AM CDT Please call her and advise her iron tests confirm extremely low iron levels. Other vitamins normal, rest of labs normal. I recommend when she comes for recheck hgb that she leave a urine to check for blood loss. I will also have her pick up and delivery driver stool cards to check for any blood loss from GI tract at that time. Please ask if feeling better and confirm she is taking iron bid for now. If she is still very tired and short of breath, we can have her scheduled for more transfusions nextweek. documented in this encounter Plan of Treatment Not on filedocumented as of this encounter Visit Diagnoses Diagnosis Iron deficiency anemia, unspecified - Pr imary documented in this encounter Care Teams Lotus Notes Administrator Relationship Specialty Start Date End Date Janis Cuellar MD PCP - General 07/08/01 10/12/19 [address] [place] [address] documented as of this encounter
--- OUTSIDE RECORDS SUMMARY | 2022-04-25 22:28 | XMS_ITS | Encounter Summary ---
:1985 Author Organization [facility] Address [address] [place] [address] Care Team Providers Name Role Phone Janis Cuellar MD Primary Care Provider Reason for Visit Reason Comments Establish Care Encounter Details Date Type Department Care Team Description 03/13/2007 Office Visit [facility] Janis Cuellar MD OTHER MALAISE AND FATIGUE; Clinic [place] [address] POLYDIPSIA; [address] [place]; [place], [place]EM[place] NOS; [address] [address] [facility] [place], [place] [phone] (Wo rk) [address] [phone] Social History Tobacco Use Types Packs/Day Years Used Date Smoking Tobacco: Never Alcohol Use Standard Drinks/Week Comments Yes 0 (1 standard drink = 0.6 oz pure alcoho l) casual Sex Assigned at Date Recorded Not on file documented as of this encounter Last Filed Vital Signs Vital Sign Reading Time Taken Comments Blood Pressure 100/55 03/13/2007 11:15 AM CDT Pulse 72 03/13/2007 11:15 AM CDT Temperature - - Respiratory Rate - - Oxygen Saturation - - Inhaled Oxygen Concentration - - Weight 55.8 kg (123 lb) 03/13/2007 11:15 AM CDT Height 174 cm (5' 8.5) 03/13/2007 11:15 AM CDT Body Mass Index 18.43 03/13/2007 11:15 AM CDT documented in this encounter Patient Instructions Patient InstructionsJanis Cuellar - 03/13/2007 12:21 PM CDT Orders for transfusions: Diagnosis: anemia with hgb 4.6 Type and Cross match for 2 units PRBCs. Also draw Iron, IBC, Transferrin and Ferritin, B12 and Folate. Transfuse 2 units PRBCs. Discharge home if stable after transfusions. Benadryl 25-50 mg IV prn fever, itching, reactions. documented in this encounter Progress Notes Janis Cuellar - 03/13/2007 12:29 PM CDT Subjective: Estefania Mckeon is a 21 year old female who presents as a new patient to this clinic. She comes inwith concerns over fatigue, dyspnea on exertion. She reports many months of fatigue with gradual increase, worse the past 4 weeks. She feels tired all the time, sleeps >8 hours without feeling well rested. She recently has noted more dyspnea on exertion and pounding heartbeat with mild exertion. 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 Her father has DM I, so her parents are concerned she may have that. She did have a sugar check thatwas a little elevated, but she was not fasting. Past Medical History Diagnosis Date ??? CALCULUS OF KIDNEY No current outpatient prescriptions on file. Past Surgical History Procedure Date ??? Appendectomy Family History Problem Relation ??? Diabetes Father ??? Hypertension Father ??? Lipids Father ??? Hypertension Mother ??? Lipids Mother high triglycerides ??? Hypertension Maternal Grandmother ??? GI Maternal Grandmother Crohns ??? Hypertension Maternal Grandfather ??? C.A.D. Maternal Grandfather ??? Genitourinary () Paternal Grandfather Kidney stones ??? Muscular Maternal Uncle ??? Neurological Paternal Aunt ??? Diabetes Paternal Aunt ??? Diabetes Paternal Uncle ??? Asthma Paternal Aunt History Social History ??? Marital Status: Single Spouse Name: N/A Number of Children: 0 ??? Years of Education: N/A Occupational History ??? Student Social History Main Topics ??? Tobacco Use: Never ??? Alcohol Use: Yes casual ??? Drug Use: No ??? Sexually Active: Yes -- Male partner(s) Other Topics Concern ??? Not on file Social History Narrative ??? No narrative on file ROS: no fever, chills, no weight loss, no cough, no heart problems in past, no abdominal pain, no GIupset, no bowel changes, no blood in stools. She has not had flank pain or hematuria She reports herperiods are fairly regular, short about 3 days, not especially heavy. No enlarged nodes. Objective: Patient alert in NAD BP 100/55 Pulse 72 Ht 5' 8.5 (1.74m) Wt 123 lbs (55.8kg) She is very pale, with pale conjunctivae, lips, palmar creases. No thyromegaly Lungs are clear CV: tacy S1, S2, rate 100, with 2/6 DEVON ULSB, no S3 or S4 Pulses full Abd: nontender, no masses, no hepatosplenomegaly Nodes: No abnormal cervical, supraclavicular, axillary or inguinal nodes palpable. She had hgb 10.7 with MCV 72 8/06 HGB 4.6 with MCV 66 Sugar 91 Assessment/Plan: 1. Fatigue: related to anemia, probably due to iron deficiency. May have low grade loss from kidney stones. Will order iron studies, B12, Folate, order transfusion of 2 units to help symptoms. Start iron after blood bid, will call her with results after rest of labs done. Arrangements have been made for her to receive outpatient transfusions today for 2 units PRBCs. I spoke directly with the nursing heel room supervisor at [facility] outpatient infusion unit. She will have blood drawn for iron, B12 and folate. documented in this encounter Nursing Notes 03/13/2007 11:15 AM CDT >> ALESSIA EUCEDA 03/13/2007 11:18 am Patient presents with: Establish Care Initial BP 100/55 Pulse 72 Ht 5' 8.5 (1.74m) Wt 123 lbs (55.8kg) Body mass index is 18.43 kg/(m^2).. BP completed using cuff size regular Alessia Euceda/RENAN documented in this encounter Plan of Treatment Not on filedocumented as of this encounter Procedures Procedure Name Priority Date/Time Associated Comments Diagnosis CL AFF CBC WITH Routine 03/13/2007 11:43 AM Other Malaise And Results for this PLATELETS CDT Fatigue procedure are in Anemia Nos the results section. HCL BASIC METABOLIC Routine 03/13/2007 11:43 AM Other Malaise And Results for this PANEL CDT Fatigue procedure are in Anemia Nos the results section. HCL TSH W/FREE T4 Routine 03/13/2007 11:43 AM Other Malaise An d Results for this REFLEX CDT Fatigue procedure are in Tachycardia Nos the results section. HCL GLYCATED Routine 03/13/2007 11:43 AM Other Malaise And Res ults for this HEMOGLOBIN CDT Fatigue procedure are in Polydipsia the results Family Hx Diabetes section. Mellitus documented in this encounter Results HEMOGLOBIN A1C (03/13/2007 11:43 AM CDT) athologist Signature Hemoglobin A1C 4.9 4.3 - 6.0 [facility] % LAB Specimen Anatomical Collection Method Collection Time Receive d Time (Source) Location / / Volume Laterality 03/13/2007 11:43 03/13/2007 AM CDT 11:48 AM CDT Janis Cuellar MD LABORATORY Performing Organization Address City/State/ZIP Code Phon e Number [facility] [place] [address] DIAGNOSTIC LABORATORY, [address] [place] [address] [address] [facility] TSH W/FREE T4 REFLEX (03/13/2007 11:43 AM CDT) athologist Signature TSH 0.84 0.4 - 5.0 [facility] mU/L [facility] LAB Specimen Anatomical Collection Method Collection Time Receive d Time (Source) Location / / Volume Laterality 03/13/2007 11:43 03/13/2007 AM CDT 11:48 AM CDT Janis Cuellar MD LABORATORY Performing Organization Address City/State/ZIP Code Phon e Number [facility] [address] [place] [address] [facility] LAB (ABNORMAL) CBC WITH PLATELETS (03/13/2007 11:43 AM CDT) athologist Signature WBC 4.0 4.0 - 11.0 [facility] 10e9/L [facility] LAB RBC Count 2.61 (L) 3.8 - 5.2 [place] [facility] 10e12/L [facility] LAB Hemoglobin 4.6 (LL) 11.7 - 15.7 [facility] g/dL [facility] LAB Comment: Results confirmed by repeat prateek t Hematocrit 17.1 (L) 35.0 - 47.0 % [facility] LAB MCV 66 (L) 78 - 100 fl [facility] LAB MCH 17.6 (L) 26.5 - 33.0 pg [facility] LAB MCHC 26.9 (L) 31.5 - 36.5 g/dL [facility] RDW 17.4 (H) 10.0 - 15.0 % [facility] LAB Platelet Count 392 150 - 450 10e9/L [facility] LAB Specimen Anatomical Collection Method Collection Time Receive d Time (Source) Location / / Volume Laterality 03/13/2007 11:43 03/13/2007 AM CDT 11:48 AM CDT Janis Cuellar MD LABORATORY Performing Organization Address City/State/ZIP Code Phon e Number [facility] [address] [place], [place] [address] [address] [facility] LAB A.M.A. BASIC METABOLIC PANEL (03/13/2007 11:43 AM CDT) [facility] Method Time Signature Sodium 142 133 - 144 [facility] mmol/L [facility] LAB Potassium 4.2 3.4 - 5.3 [facility] mmol/L [facility] LAB Chloride 106 94 - 109 [place] [facility] mmol/L [facility] LAB Carbon Dioxide 26 20 - 32 [place] [facility] mmol/L [facility] LAB Anion Gap 11 6 - 17 [place] [facility] mmol/L [facility] LAB Glucose 91 60 - 99 [facility] mg/dL [facility] LAB Urea Nitrogen 6 5 - 24 [facility] mg/dL [facility] LAB Creatinine 0.79 0.60 - [place] 1.30 [facility] mg/dL LAB GFR Estimate Not Calculated >60 [facility] mL/min/1. [facility] 7m2 LAB GFR Estimate Not Calculated >60 [place] [facility] If Black mL/min/1. [facility] 7m2 LAB Calcium 8.9 8.5 - [facility] 10.4 [facility] mg/dL LAB Specimen Anatomical Collection Method Collection Time Receive d Time (Source) Location / / Volume Laterality 03/13/2007 11:43 03/13/2007 AM CDT 11:48 AM CDT Janis Cuellar MD LABORATORY Performing Organization Address City/State/[facility] Code Phon e Number [address] [address] [facility] LAB documented in this encounter Visit Diagnoses Diagnosis Other malaise and fatigue Polydipsia Tachycardia, unspecified Anemia, unspecified Family history of diabetes mellitus documented in this encounter Care Teams Appeals Representative Relationship Specialty Start Date End Date Janis Cuellar MD PCP - General 07/08/01 10/12/19 [address] [facility] [address] [place], [place] [address] documented as of this encounter
--- OUTSIDE RECORDS SUMMARY | 2022-04-25 22:28 | XMS_ITS | Encounter Summary ---
:1985 Author Organization [employer] Address [address] [place] [address] Care Team Providers Name Role Phone Janis Cuellar MD Primary Care Provider Encounter Details Date Type Department Care Team Description 01/08/2006 Results [facility] Faustino Loja MD Hospital Results [facility] [address] [facility] [address] [place], [place] [phone] (Wo rk) Social History Tobacco Use Types Packs/Day Years Used Date Smoking Tobacco: Never Assessed Sex Assigned at Date Recorded Not on file documented as of this encounter Plan of Treatment Not on filedocumented as of this encounter Procedures Procedure Name Priority Date/Time Associated Diagnosis Comme [facility] CT ABDOMEN W/O Routine 01/08/2006 12:44 AM Res ults for this CONTRAST CDT procedure are i n the results section. documented in this encounter Results CT SCAN ABDOMEN (01/08/2006 12:44 AM CDT) Anatomical Region Laterality Modality Other Specimen (Source) Anatomical Collection Method Collection Time Re ceived Time Location / / Volume Laterality 01/08/2006 12:44 AM CDT Impressions 01/09/2006 11:31 AM CDT ABDOMEN AND PELVIS CT WITHOUT IV CONTRAS T ?? CLINICAL HISTORY: ??Left-sided flank van n with concern for renal/ureteral lithiasis. ? FINDINGS: ??There are several nonobstruc ting stones located within both collecting systems. ??Right kidney shows no hydronephrosis or hydroureter and no evidence of ureteroli thiasis. ??Left kidney is demonstrating mild hydronephrosis and pr oximal left hydroureter with an 8mm stone situated in the mid left ur eter. ??Urinary bladder appears unremarkable. ??The left kidney may have a duplicated system. ?? It is difficult to see exactly where the ureters may join. ? CONCLUSION: 1. ??Bilateral renal lithiasis. ?? 2. ??8mm partially obstructing left mid ureteral stone. ?? 3. 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 ??Unable to see where ureters may join. ? Preliminary report reflecting the above findings was issued by Dr. Jj at the time of imaging. Faustino Loja MD [facility] documented in this encounter Visit Diagnoses Not on filedocumented in this encounter Care Teams Media Services Director Relationship Specialty Start Date End Date Janis Cuellar MD PCP - General 07/08/01 10/12/[address] [facility] [address] [place], [place] [address] documented as of this encounter
--- OUTSIDE RECORDS SUMMARY | 2022-04-25 22:28 | XMS_ITS | Encounter Summary ---
:1985 Author Organization [facility] Address [address] [place] [address] Care Team Providers Name Role Phone Janis Cuellar MD Primary Care Provider Reason for Visit Reason Onset Date Comments Results 04/10/2007 Hgb Encounter Details Date Type Department Care Team Description 04/10/2007 Telephone [facility] Tracey Cuellar MD Results (Hgb) [place] [address] [facility] [address] [place] [address] [address] [place] [address] [phone] Social History Tobacco Use Types Packs/Day Years Used Date Smoking Tobacco: Never Alcohol Use Standard Drinks/Week Comments Yes 0 (1 standard drink = 0.6 oz pure alcoho l) casual Sex Assigned at Date Recorded Not on file documented as of this encounter Miscellaneous Notes Telephone Encounter - Nava Montilla - 04/11/2007 2:16 PM CST Patient advised of Dr. Cuellar's message regarding Hgb ULUS TEACHER Telephone Encounter - Alessia Vargas - 04/10/2007 4:58 PM CST Left message on answering machine for patient. Alessia Vargas/RENAN ULUS TEACHER Telephone Encounter - Janis Cuellar - 04/10/2007 12:02 PM CST Advise hgb 7.9; would not normally transfuse this level. Could recheck to be sure not decreasing. She could try increase iron to bid. ULUS TEACHER Telephone Encounter - Christine Cook - 04/10/2007 11:56 AM CST Pt calling for lab results from 03/31/07. Abnormal. Pt HGB 7.9. Pt states she is feeling increased weakness, fatigue x 1 week. Do you want to order additional transfusion? Please call. ULUS TEACHER documented in this encounter Plan of Treatment Not on filedocumented as of this encounter Visit Diagnoses Not on filedocumented in this encounter Care Teams Button And Buckle Maker Relationship Specialty Start Date End Date Janis Cuellar MD PCP - General 07/08/01 10/12/19 [address] [address] documented as of this encounter
--- OUTSIDE RECORDS SUMMARY | 2022-04-25 22:28 | XMS_ITS | Encounter Summary ---
:1985 Author Organization [facility] Address [address] [place] [address] Care Team Providers Name Role Phone Janis Cuellar MD Primary Care Provider Reason for Visit Reason Onset Date Comments Results 04/11/2007 Urine Encounter Details Date Type Department Care Team Description 04/11/2007 Telephone [facility] Tracey Cuellar MD Results (Urine) [place] [address] [facility] [address] [place] [address] [address] [place] [address] [phone] Social History Tobacco Use Types Packs/Day Years Used Date Smoking Tobacco: Never Alcohol Use Standard Drinks/Week Comments Yes 0 (1 standard drink = 0.6 oz pure alcoho l) casual Sex Assigned at Date Recorded Not on file documented as of this encounter Miscellaneous Notes Telephone Encounter - Sarah Rebolledo - 04/12/2007 1:20 PM CST Mom calling back. Pt began having heavy vaginal bleeding/cramping this am. Soaking a super tampon hourly. Pt is lightheaded. Mom states her periods are irregular, so unsure if her normal flow is thisheavy. Advised ER eval. Also advised mom of UTI and prescription ordered by Dr. Cuellar. R REPRESENTATIVE Telephone Encounter - Nuzhat Rodriguez - 04/12/2007 12:21 PM CST LMOVM requesting call back for MD message. [phone] R REPRESENTATIVE Telephone Encounter - Janis Cuellar - 04/11/2007 9:57 PM CST Please call and advise that the urine test did not show blood, but it does indicate an infection. This may add to fatigue. I recommend treatment with antibiotic: [facility] her [facility] get their meds. Also, recommend recheck of hgb in a month. R REPRESENTATIVE documented in this encounter Plan of Treatment Not on filedocumented as of this encounter Visit Diagnoses Diagnosis Urinary tract infection, site not specif ied - Primary Iron deficiency anemia, unspecified documented in this encounter Care Teams Hand Edger Relationship Specialty Start Date End Date Janis Cuellar MD PCP - General 07/08/01 10/12/19 Jamie GAMBINO [facility] [address] [place] [address] documented as of this encounter
--- OUTSIDE RECORDS SUMMARY | 2022-04-25 22:28 | XMS_ITS | Encounter Summary ---
:1985 Author Organization [facility] Address [address] [place] [address]. [place] [address] Care Team Providers Name Role Phone Janis uCellar MD Primary Care Provider Encounter Details Date Type Department Care Team Description 01/07/2006 Emergency room Kmi Loja MD EMERGENCY PHYSIC [facility] [address] [place], [place] [address] (Wo rk) Social History Tobacco Use Types Packs/Day Years Used Date Smoking Tobacco: Never Assessed Sex Assigned at Date Recorded Not on file documented as of this encounter Progress Notes Interface, Garbage Pick Up Worker - 02/14/2006 10:32 AM CDT FINAL CHIEF COMPLAINT: Pain. HISTORY OF PRESENT ILLNESS: This 20-year-old woman comes in with her mom. She reports that she has been having lot of pain in her left lower quadrant. Two days ago, this present and has gotten much worse tonight. She had some tiny fevers and chills, not measured. She has had normal bowel movement as of 01/06. She had no diarrhea or constipation. She just finished her period. She has never had a pelvic exam. There is a strong family history of kidney stones as well as in the patient. The pain got a lot worse around 8:00 to 9:00 tonight. She tried some Advil without much relief. Denies any urinary type symptoms. It does hurt when she tries to urinate. She has not had any chest pain or difficulty leni thing. No previous history of pyelonephritis reported. In general, she says everything else has beengoing pretty well for her. Slight nausea at home. Denies any trauma or known history of ovarian cysts. No current concerns for . MEDICATIONS: Advil. ALLERGIES: Amoxicillin. PAST MEDICAL HISTORY: Remarkable for an appendectomy and kidney stones. FAMILY HISTORY: Noncontributory. SOCIAL HISTORY: Stable. Here with mother. REVIEW OF SYSTEMS: As discussed above pertinent things. All other systems are negative. Normal period on 12/30. PHYSICAL EXAMINATION: VITAL SIGNS: Blood pressure 104/75, pulse 117, respiratory rate 20, temperature 100.3 orally, sats 98%. Heart rate at discharge 72. Temperature 97.6. GENERAL: She is alert, oriented, mild amount of distress when I see her. HEENT: Pupils are equal and reactive to light. Extraocular movements are full and intact. HEENT normal. NECK, SPINE AND BACK: Normal. Little bit of left flank tenderness although a very mild amount. CHEST: Rise equal. LUNGS: Clear. HEART: Sounds normal. ABDOMEN: Soft, mildly tender in left lower quadrant. There is no mass or organomegaly. GENITOURINARY AND RECTAL: Not examined in the absence of complaints and the lack of history of previous pelvic exams. She denies any vaginal discharge or other problems. EXTREMITIES: Extremities x4 normal. SKIN: Normal. PSYCHIATRIC: Normal. LYMPHATICS: Normal. NEUROLOGIC: Nonfocal. Rest of physical exam is unremarkable. EMERGENCY DEPARTMENT DIAGNOSTICS: Urinalysis shows a moderate amount of blood, 10 protein, large leukocyte esterase, she has 99 white cells, 73 red cells with clumps of white cells, bacteria that are few in number. She has a negative test. 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 EMERGENCY DEPARTMENT COURSE: A 20-year-old woman who presents with pain and discomfort and a history of stones with low-grade temperature. I also wonder about infection and possibly pyelonephritis. With the scan as above, I think this represents more primary stone problem which has since become infected. Fortunately the patient's pain is well controlled with minimal interventions including IV access, IV fluids and some Zofran for nausea, Toradol for pain and some morphine. She was then feeling muchmore comfortable and is able tolerate p.o. antibiotics. I think at this point, even though she has an 8 mm stone and infection since she is feeling comfortable and has been through this before, I thinkit is okay to be discharged to home. She knows to return with any problems and in the meantime is tocontinue medications as instructed. She is comfortable with this plan and is discharged in a stable condition. I will have them call on Tuesday for urology appointment. The patient's initial pain is 7/10 and at time of discharge 5/10. EMERGENCY DEPARTMENT DISPOSITION: To home. Return if worse. Follow up with Urology as soon as possible. Call Tuesday for an appointment. Medications as directed. Hydrate and micromedics for renal colicinformation. EMERGENCY DEPARTMENT FINAL IMPRESSION: 1. Renal colic. 2. Urinary tract infection. Electronically signed on 02/14/2006 10:32 by KIM LOJA MD MT: [id number] Name: ESTEFANIA MCKEON Account: [id number] : 1985 Visit Date: 01/07/2006 Document: [id number] cc: Jossie Montilla MD documented in this encounter Plan of Treatment Not on filedocumented as of this encounter Visit Diagnoses Not on filedocumented in this encounter Care Teams E Business Project Manager Relationship Specialty Start Date End Date Janis Cuellar MD PCP - General 07/08/01 10/12/19 [address] [facility] 200 [place] [address] documented as of this encounter
--- OUTSIDE RECORDS SUMMARY | 2022-04-25 22:28 | XMS_ITS | Encounter Summary ---
:1985 Author Organization [facility] Address [address] [place] [address] Care Team Providers Name Role Phone Janis Cuellar MD Primary Care Provider Reason for Visit Reason Comments RECHECK F/U from last visit. Encounter Details Date Type Department Care Team Description 03/31/2007 Office Visit [facility] Janis Cuellar MD IRON DEFIC ANEMIA NOS [facility] [address] [facility] (Primary Dx) [address] [place], [place] [address] [address] [place], [place] [phone] (Wo rk) [address] [phone] Social History Tobacco Use Types Packs/Day Years Used Date Smoking Tobacco: Never Alcohol Use Standard Drinks/Week Comments Yes 0 (1 standard drink = 0.6 oz pure alcoho l) casual Sex Assigned at Date Recorded Not on file documented as of this encounter Last Filed Vital Signs Vital Sign Reading Time Taken Comments Blood Pressure 105/60 03/31/2007 4:15 PM ELECTRICAL TEST TECHNICIAN Pulse 72 03/31/2007 4:15 PM ELECTRICAL TEST TECHNICIAN Temperature - - Respiratory Rate - - Oxygen Saturation - - Inhaled Oxygen Concentration - - Weight 56.6 kg (124 lb 12.8 oz) 03/31/2007 4:15 PM ELECTRICAL TEST TECHNICIAN Height 174 cm (5' 8.5) 03/31/2007 4:15 PM ELECTRICAL TEST TECHNICIAN Body Mass Index 18.7 03/31/2007 4:15 PM ELECTRICAL TEST TECHNICIAN documented in this encounter Progress Notes Janis Cuellar - 03/31/2007 4:57 PM CST Subjective: Estefania Mckeon is a 21 year old female who presents for follow-up of anemia. She reports improvement in energy after recent transfusions. She is taking iron one tablet a day of 28 mg. She is taking Vitamin C with it per pharmacist recommendations. She reports no ASA use, infrequent advil use. Her periods are not heavy. Patient Active Problem List Diagnoses Code ??? IRON DEFIC ANEMIA NOS 280.9 Current outpatient prescriptions Medication Sig ??? IRON 28 MG OR TABS None Entered Objective: Patient alert in NAD BP 105/60 Pulse 72 Ht 5' 8.5 (1.74m) Wt 124 lbs 12.8 oz (56.6kg) Not as pale. Assessment/Plan: 1. Anemia: iron deficient, reviewed results of other labs with patient and her mother. She does not feel she needs another transfusion at this time. Recommend recheck today, check urine for blood and check hemoccults. Will contact with results and consider when to recheck. TRICAL TEST TECHNICIAN documented in this encounter Plan of Treatment Not on filedocumented as of this encounter Procedures Procedure Name Priority Date/Time Associated Comments Diagnosis HCL CULTURE, URINE Routine 03/31/2007 5:18 PM Iron Defic Anemi a Results for this (MISYS) ELECTRICAL TEST TECHNICIAN Nos procedure are i n the results section. HCL URINALYSIS WITH Routine 03/31/2007 4:59 PM Iron Defic Anem ia Results for this MICROSCOPIC ELECTRICAL TEST TECHNICIAN Nos procedure are i n the results section. ZZCL AFF RETICULOCYTE Routine 03/31/2007 4:58 PM Iron Defic An emia Results for this COUNT ELECTRICAL TEST TECHNICIAN Nos procedure are i n the results section. HCL HEMOGLOBIN NONLAB Routine 03/31/2007 4:58 PM Iron Defic An emia Results for this ELECTRICAL TEST TECHNICIAN Nos procedure are i n the results section. documented in this encounter Results CULTURE, URINE (MISYS) (03/31/2007 5:18 PM ELECTRICAL TEST TECHNICIAN) [facility] Method Time Signature Specimen Midstream Urine [place] Description [facility] Culture Micro >100,000 TEANECK colonies/mL [facility] coli Report status FINAL [place] 04/02/2007 [facility] Specimen Anatomical Collection Method Collection Time Receive d Time (Source) Location / / Volume Laterality 03/31/2007 5:18 PM 7 5:23 ELECTRICAL TEST TECHNICIAN PM ELECTRICAL TEST TECHNICIAN Organism Antibiotic Method Susceptibility >100,000 colonies/ml Amoxicillin/Clav <=2 Suscep tible escherichia coli (pamela) >100,000 colonies/ml Ampicillin <=2 Suscept ible escherichia coli (pamela) >100,000 colonies/ml Cefazolin <=4 Suscept ible escherichia coli (pamela) >100,000 colonies/ml Ceftriaxone <=1 Suscept ible escherichia coli (pamela) >100,000 colonies/ml Cefuroxime Axetil <=1 Susce ptible escherichia coli (pamela) >100,000 colonies/ml Ciprofloxacin <=0.25 Susc eptible escherichia coli (pamela) >100,000 colonies/ml Gentamicin <=1 Suscept ible escherichia coli (pamela) >100,000 colonies/ml Levofloxacin <=0.25 Susc eptible escherichia coli (pamela) >100,000 colonies/ml Nitrofurantoin 64 Intermed iate escherichia coli (pamela) >100,000 colonies/ml Ticarcillin <=8 Suscept ible escherichia coli (pamela) >100,000 colonies/ml Ticarcillin/Clav <=8 Suscep tible escherichia coli (pamela) >100,000 colonies/ml Tobramycin <=1 Suscept ible escherichia coli (pamela) >100,000 colonies/ml Trimethoprim/Sulfamethoxazole <=1/19 Susceptible escherichia coli (pamela) >100,000 colonies/ml Cefotaxime Deduced Gina ceptible escherichia coli (pamela) Janis Cuellar MD LABORATORY Performing Organization Address City/State/ZIP Code Phon e Number [place] [address] [address] [address] [facility] (ABNORMAL) UA WITH MICRO (03/31/2007 4:59 PM ELECTRICAL TEST TECHNICIAN) [facility] Method Time Signature Color Urine Yellow [facility] Appearance Urine Slightly TEANECK Cloudy [facility] Glucose Urine Negative NEG mg/dL [facility] Bilirubin Urine Negative NEG [facility] Ketones Urine Negative NEG mg/dL [facility] Specific [place] 1.020 1.003 - TEANECK Urine 1.035 [facility] pH Urine 6.5 5.0 - 7.[address] [facility] Protein Albumin Negative NEG mg/dL TEANECK Urine [facility] Urobilinogen 0.2 0.2 - 1.0 TEANECK Urine EU/dL [facility] Nitrite Urine Positive (A) NEG [facility] Blood Urine Negative NEG [facility] Leukocyte Moderate (A) NEG TEANECK Esterase Urine [facility] Source Midstream TEANECK Urine [facility] WBC Urine 5-10 (A) 0 - 2 TEANECK /[facility] RBC Urine 2-5 (A) 0 - 2 TEANECK /[facility] Squamous EPI Moderate (A) FEW /LPF [facility] Bacteria Urine Moderate (A) NEG /HPF [facility] Specimen Anatomical Collection Method Collection Time Receive d Time (Source) Location / / Volume Laterality 03/31/2007 4:59 PM 7 5:04 ELECTRICAL TEST TECHNICIAN PM ELECTRICAL TEST TECHNICIAN Janis Cuellar MD LABORATORY Performing Organization Address City/[facility]/ZIP [facility] Phon e Number [facility] [address] [place], [place] [address] [address] [facility] RETICULOCYTE COUNT (03/31/2007 4:58 PM ELECTRICAL TEST TECHNICIAN) Patholo gist Method Time Signature % Retic 1.0 0.5 - 2.0 TEANECK % [facility] Absolute 36.0 25 - 95 TEANECK Retic 10e9/L [facility] Method Automated [facility] Specimen Anatomical Collection Method Collection Time Receive d Time (Source) Location / / Volume Laterality 03/31/2007 4:58 PM 7 5:03 ELECTRICAL TEST TECHNICIAN PM ELECTRICAL TEST TECHNICIAN Janis Cuellar MD LABORATORY Performing Organization Address City/State/ZIP Code Phon e Number [facility] [address] [place], [place] [address] [facility] (ABNORMAL) HGB (03/31/2007 4:58 PM ELECTRICAL TEST TECHNICIAN) P athologist Signature Hemoglobin 7.9 (LL) 11.7 - 15.7 TEANECK g/dL [facility] Comment: Results confirmed by repeat prateek t Specimen Anatomical Collection Method Collection Time Receive d Time (Source) Location / / Volume Laterality 03/31/2007 4:58 PM 11/09/200 7 5:03 ELECTRICAL TEST TECHNICIAN PM ELECTRICAL TEST TECHNICIAN Janis Cuellar MD LABORATORY Performing Organization Address City/State/ZIP Code Phon e Number [facility] [address] [place], [place] [address] [address] [facility] documented in this encounter Visit Diagnoses Diagnosis Iron deficiency anemia, unspecified - Pr imary documented in this encounter Care Teams Quick Service Technician Relationship Specialty Start Date End Date Janis Cuellar MD PCP - General 07/08/01 10/12/19 [address] [place] [address] documented as of this encounter
--- OUTSIDE RECORDS SUMMARY | 2022-04-25 22:28 | XMS_ITS | Encounter Summary ---
:1985 Author Organization [facility] Address [address] [place] [address] Care Team Providers Name Role Phone Janis Cuellar MD Primary Care Provider Reason for Visit Reason Onset Date Comments Patient Request 03/14/2007 Encounter Details Date Type Department Care Team Description 03/14/2007 Telephone [facility] Tracey Cuellar MD Patient Request [place] [address] [facility] [address] [place] [address] [address] [place] [address] [phone] Social History Tobacco Use Types Packs/Day Years Used Date Smoking Tobacco: Never Alcohol Use Standard Drinks/Week Comments Yes 0 (1 standard drink = 0.6 oz pure alcoho l) casual Sex Assigned at Date Recorded Not on file documented as of this encounter Miscellaneous Notes Telephone Encounter - Christine Cook - 03/14/2007 11:23 AM CDT Pt advised. Telephone Encounter - Alessia Vargas - 03/14/2007 11:09 AM CDT Left message on answering machine for patient. Alessia Vargas/RENAN Telephone Encounter - Janis Cuellar - 03/14/2007 10:42 AM CDT She is to start the iron come in for recheck on lab in 2 weeks. The goal of the transfusions was to raise the hgb level a little to help symptoms, but not to return it to normal. We will contact her with the rest of the lab results when they are available. Telephone Encounter - Kristina Dutton - 03/14/2007 10:15 AM CDT Pt's Mom calling--pt had her blood transfusion--hosp told her she might need more. What is your suggestion?? Plz advise. Estefania is staying at her Mom's house. Plz advise. documented in this encounter Plan of Treatment Not on filedocumented as of this encounter Visit Diagnoses Diagnosis Anemia, unspecified - Primary documented in this encounter Care Teams Butadiene Compressor Operator Relationship Specialty Start Date End Date Janis Cuellar MD PCP - General 07/08/01 10/12/19 Jamie GAMBINO [facility] [address] [place] [address] documented as of this encounter
--- OUTSIDE RECORDS SUMMARY | 2022-04-25 22:29 | XMS_ITS | Encounter Summary ---
:1985 Author Organization [facility] Address [address] [place] [address] Care Team Providers Name Role Phone Farnaz Matthewssey Jose VALDIVIA Primary Care Provider Reason for Visit Reason Comments Wrist Problem Therapies (Routine) - Closed Specialty Diagnoses / Procedures Referred By Contact Refer red To Contact Diagnoses Left wrist pain Closed nondisplaced fracture of styloid process of left radius with routine healing, subsequent encounter Alvarado Stein MD [address] [facility] [place] [address] Referral ID Status Reason Start Date Expiration Date Visits Requ ested Visits Authorized [id number] Closed 04/06/2021 04/06/2022 1 1 Encounter Details Date Type Department Care Team Description 04/06/2021 Office Visit [facility] Kendra Bellamy, Left wrist pain [address] [facility] OTR/L (Primary Dx) [place], [place] [address] [address] [facility] [phone] [place] [address] Social History Tobacco Use Types Packs/Day Years Used Date Smoking Tobacco: Never Smokeless Tobacco: Never Alcohol Use Standard Drinks/Week Comments Not Currently 2 (1 standard drink = 0.6 oz pure alcoho l) rare Sex Assigned at Date Recorded Not on file documented as of this encounter Progress Notes Kendra Bellamy, OTR/L - 04/06/2021 6:00 PM CST Hand Therapy Note for Durable Medical Equipment Referring Provider: Alvarado Stein Diagnosis: Left wrist pain Orders: Exos-DME only An Exos wrist splint ([id number]) was custom fit for the patient. Patient was instructed in proper application and care of splint. Patient demonstrated understanding of splint wear and care. Clinic number was provided if questions or concerns should arise. Patient was given a copy of the signed DME paperwork. Total Treatment Time: 15 minutes Therapist Signature: Kendra Bellamy MS, OTR/L #[id number] Charges: DME charged separately for Exos splint [id number] [facility] documented in this encounter Plan of Treatment Scheduled Referrals Name Type Priority Associated Diagnoses Order S chedule Hand Therapy Consult Referral Routine Left wrist pain Ordered: 04/06/2021 Closed nondisplaced fracture of styloid process of left radius with routine healing, subsequent encounter documented as of this encounter Visit Diagnoses Diagnosis Left wrist pain - Primary Pain in joint, forearm documented in this encounter Care Teams Press Tender Relationship Specialty Start Date End Date Shannan Matthews DO PCP - General Family Practice 10/13/19 [address] [address] documented as of this encounter
--- OUTSIDE RECORDS SUMMARY | 2022-04-25 22:29 | XMS_ITS | Encounter Summary ---
:1985 [facility] Address [address], [place] [address] Care Team Providers Name Role Phone Shannan Matthews Primary Care Provider Reason for Referral Procedure/Equipment (Routine) - Incomplete Specialty Diagnoses / Procedures Referred By Contact Refer red To Contact Diagnoses Hydronephrosis of right kidney Payton Mejia MD Procedures NM Renogram With Lasix Flow/Function [address] [place], [place] [address] Referral ID Status Reason Start Date Expiration Date Visits V isits Requested Authorized [id number] Incomplete 10/22/2020 01/21/2022 6 6 Reason for Visit Procedure/Equipment (Routine) - Incomplete Specialty Diagnoses / Procedures Referred By Contact Refer red To Contact Diagnoses Hydronephrosis of right kidney Payton Mejia MD Procedures NM Renogram With Lasix Flow/Function [address] [place], [place] [address] Referral ID Status Reason Start Date Expiration Date Visits V isits Requested Authorized [id number] Incomplete 10/22/2020 01/21/2022 6 6 Encounter Details Date Type Department Care Team Description 10/27/2020 Hospital Encounter [facility] Payton Rodriguez ydronephrosis of Medicine MD Tracey right kidney [address] [facility] [place] [address] [place] [address] [phone] Social History Tobacco Use Types Packs/Day Years Used Date Smoking Tobacco: Never Smokeless Tobacco: Never Alcohol Use Standard Drinks/Week Comments Not Currently 2 (1 standard drink = 0.6 oz pure alcoho l) rare Sex Assigned at Date Recorded Not on file documented as of this encounter Medications at Time of Discharge Medication Sig Dispensed Refills Start Date End Date cetirizine (ZYRTEC) 10 MG Take 10 mg by 0 tablet mouth daily. SUMAtriptan (IMITREX) 50 MG Take 1 Tablet by 9 Tablet 2 tabletIndications: Headaches mouth as needed for Migraine. May repeat one tablet after 2 hours if needed. Maximum 4 tabs/24 hours and 9 days/month buwvjfelra-dzglyugdtmlzi-dqv Take 1 Tablet by 10 Tablet 0 1 07/20/2019 12/14/2021 feine (FIORICET) 50-325-40 mouth every 4 MG tabletIndications: hours as needed Headaches for Pain. hydroCHLOROthiazide (ORETIC) Take 1 Tablet by 90 Tablet 3 0 08/30/2020 10/22/2021 25 MG tabletIndications: mouth daily. Kidney stone propranolol (INDERALLA) 80 Take 1 Capsule 90 Capsule 3 09/1712/14/2021 MG 24 hour release by mouth daily. capsuleIndications: Headaches sertraline (ZOLOFT) 100 MG Take 1/2 tablet 90 Tablet 3 05/2308/03/2021 tablet for one week, then increase to 1 tablet daily. documented as of this encounter Plan of Treatment Not on filedocumented as of this encounter Procedures Procedure Name Priority Date/Time Associated Diagnosis Comme nts NM RENOGRAM WITH Routine 10/27/2020 2:16 PM Hydronephrosis of right Results for this LASIX CDT kidney procedure are i n FLOW/FUNCTION the results section. documented in this encounter Results NM Renogram With Lasix Flow/Function (10/27/2020 2:16 PM CDT) Anatomical Region Laterality Modality Abdomen Nuclear Medicine Specimen (Source) Anatomical Collection Method Collection Time Re ceived Time Location / / Volume Laterality 10/27/2020 1:22 PM CDT Impressions 10/27/2020 2:56 PM CDT COMPARISON: 07/31/2020. TECHNIQUE: The procedure was performed w ith 10.07 mCi of T99m labeled MAG 3. 38 mg of Lasix was administered at 1 minute. RESULTS: ANGIOGRAPHIC PHASE: Prompt symmetric perfusion to both kidne ys. ??Renogram images show no significant asymmetry in renal size. WHOLE KIDNEY RELATIVE RENAL FUNCTION (2- 3 minute uptake %): Left: 66.6% ?Right: 33.4% CORTICAL PHASE: Persistent delayed uptake in the superio r pole right kidney. The time to peak is: Left: 2.4 minutes ? R ight: 8.9 minutes (Normal is less than 5 minutes.) The cortical:20 minute to peak ratio is: Left: 20% ? Right: 90 % (Normal is less than 30%.) WASHOUT PHASE: Prompt clearance of radiotracer from the renal collecting systems. The diuretic T1/2 is: Left 4.5 minutes. ?Right 85.7 minutes. (Normal is less than 10 minutes, equivoc al 10-20 minutes, abnormal greater than 20 minutes.) POST-VOID: Minimal post void urinary bladder volume . Prominent retention of radiotracer in th e right upper pole. IMPRESSION: Persistent and relatively st able prominent right upper pole hydronephrosis/obstruction with associated decreased right renal function. Procedure Note Alvarado Horne, DO - 10/27/2020For matting of this note might be different from the original. IMPRESSION COMPARISON: 07/31/2020. TECHNIQUE: The procedure was performed w ith 10.07 mCi of T99m labeled MAG 3. 38 mg of Lasix was administered at 1 minute. RESULTS: ANGIOGRAPHIC PHASE: Prompt symmetric perfusion to both kidne ys. Renogram images show no significant asymmetry in renal size. WHOLE KIDNEY RELATIVE RENAL FUNCTION (2- 3 minute uptake %): Left: 66.6% Right: 33.4% CORTICAL PHASE: Persistent delayed uptake in the superio r pole right kidney. The time to peak is: Left: 2.4 minutes Right: 8.9 minutes (Normal is less than 5 minutes.) The cortical:20 minute to peak ratio is: Left: 20% Right: 90% (Normal is less than 30%.) WASHOUT PHASE: Prompt clearance of radiotracer from the renal collecting systems. The diuretic T1/2 is: Left 4.5 minutes. Right 85.7 minutes. (Normal is less than 10 minutes, equivoc al 10-20 minutes, abnormal greater than 20 minutes.) POST-VOID: Minimal post void urinary bladder volume . Prominent retention of radiotracer in th e right upper pole. IMPRESSION: Persistent and relatively st able prominent right upper pole hydronephrosis/obstruction with associated decreased right renal function. Payton GEE NM documented in this encounter Visit Diagnoses Diagnosis Hydronephrosis of right kidney Hydronephrosis documented in this encounter Administered Medications Inactive Administered Medications - up to 3 most recent administrations Medication Order MAR Action Action Date Dose Rate Site furosemide (LASIX) injection 38.2 Given 10/27/2020 1:46 PM CDT 3 8.2 mg mg 38.2 mg, Intravenous, ONCE, On Tue10/27/20 at 1415, For 1 dose, IV Push maximum rate is 20mg/min. IVPB to be infused over 15 minutes. , Radiology sodium chloride 0.9% injection 20 mL Given 10/27/2020 1:45 PM CDT 20 mL 20 mL, Intravenous, ONCE, On Tue10/27/20 at 1415, For 1 dose, For line care., Radiology technetium TC-99M mertiatide Given 10/27/2020 1:45 PM CDT 10.07 millicuries (TECHNESCAN MAG3) injection kit 10.07 millicurie 10.07 millicurie, Intravenous, ONCE, On 10/27/20 at 1415, For 1 dose, Radiology documented in this encounter Care Teams Director Of Dance Relationship Specialty Start Date End Date Shannan Matthews DO PCP - General Family Practice 10/13/19 [address] [place] [id number] documented as of this encounter
--- OUTSIDE RECORDS SUMMARY | 2022-04-25 22:29 | XMS_ITS | Encounter Summary ---
:1985 Author Organization [employer] Address [address] [place] [address] Care Team Providers Name Role Phone CassieShannan Jose VALDIVIA Primary Care Provider Reason for Visit Reason Comments PRE-OP EXAM DOS 12/17/[address] Farrar @ [facility] Encounter Details Date Type Department Care Team Description 12/14/2021 Pre-Op Visit Natanael Fernandes Preopera tive examination (Primary Dx); Dewey Montague MD Elective surgery; [address] [facility] Migraine without status migr ainosus, not intractable, unspecified migraine type [address] [phone] [place] [phone] Social History Tobacco Use Types Packs/Day Years Used Date Smoking Tobacco: Never Smokeless Tobacco: Never Alcohol Use Standard Drinks/Week Comments Not Currently 2 (1 standard drink = 0.6 oz pure alcoho l) rare Sex Assigned at Date Recorded Not on file documented as of this encounter Last Filed Vital Signs Vital Sign Reading Time Taken Comments Blood Pressure 102/70 12/14/2021 9:54 AM CDT Pulse 80 12/14/2021 9:54 AM CDT Temperature - - Respiratory Rate - - Oxygen Saturation - - Inhaled Oxygen Concentration - - Weight 82.6 kg (182 lb) 12/14/2021 9:54 AM CDT Height 172.7 cm (5' 8) 12/14/2021 9:54 AM CDT Body Mass Index 27.67 12/14/2021 9:54 AM CDT documented in this encounter Patient Instructions Patient InstructionsNatanael Gonzalez MD - 12/14/2021 10:00 AM CDT Hold NSAID's one week before surgery. Hold hydrochlorothiazide the morning of surgery. documented in this encounter OR Notes H&P - Natanael Gonzalez MD - 12/14/2021 10:00 AM CDT PREOPERATIVE ASSESSMENT Date of Service: 12/14/2021 Date of : 1985 Age: 36 y.o. Sex: female Preoperative Evaluation completed by: Natanael Gonzalez MD Primary healthcare administration intern: Shannan Matthews DO [phone] CHIEF COMPLAINT Pre-Operative Evaluation ANTICIPATED PROCEDURE Chief Complaint Patient presents with PRE-OP EXAM DOS 12/17/[address] Farrar @ [facility] HISTORY OF PRESENT ILLNESS 36-year-old female scheduled for elective surgery. Risk Factors/Review of Systems: (Please see flowsheets for details) Cardiovascular risks negative except for: Renal risks negative except for: Chronic Diuretic Use: Neuro risks negative except for: GI risks negative except for: Pulmonary risks negative except for: Endocrine/Nutrition risks negative except for: Hematologic Disease risks negative except for: Musculoskeletal/Skin risks negative except for: Mental Health risks negative except for: Code Status: Full Code, Other risk factors negative except for: Complete review of systems is otherwise negative. Patient Active Problem List Diagnosis Vitamin D deficiency Recurrent kidney stones History of blood transfusion Encounter for female sterilization procedure Bicornuate uterus Endometriosis Past Medical History: Diagnosis Date Anemia iron deficiency Bicornuate uterus Blood transfusion, without reported diagnosis Chronic anemia Endometriosis Heartburn KEZIA (iron deficiency anemia) 11/20/2014 Kidney stones 10 stones in past, current stone right kidney Migraines Pap smear abnormality of cervix Pyelonephritis of right kidney 02/24/2020 Added automatically from request for surgery [id number] Varicella Past Surgical History: Procedure Laterality Date CYSTOSCOPY 2003 Kidney stones HX APPENDECTOMY 1998 SALPINGECTOMY Bilateral TUBAL LIGATION 2020 WISDOM TEETH EXTRACTION Family History Problem Relation Age of Onset Spont Abortions Mother Crohn's Disease Mother Heart Disease Mother Stroke Mother Diabetes Father High Cholesterol Father Heart Disease Father Heart Disease Maternal Grandfather Cancer, Breast Paternal Grandmother Thyroid Disorder Cousin Social History Tobacco Use Smoking status: Never Smokeless tobacco: Never Substance Use Topics Alcohol use: Not Currently Alcohol/week: 2.0 standard drinks Types: 2 Cans of beer per week Comment: rare Current Outpatient Medications Medication Sig Dispense Refill cetirizine (ZYRTEC) 10 MG tablet Take 10 mg by mouth daily. fluticasone propionate (FLONASE) 50 MCG/ACT nasal solution Place 2 Sprays into both nostrils daily. hydroCHLOROthiazide (ORETIC) 25 MG tablet TAKE 1 TABLET BY MOUTH DAILY. 90 Tablet 0 propranolol (INDERALLA) 80 MG 24 hour release capsule Take 1 Capsule (80 mg) by mouth daily. 90 Capsule 3 sertraline (ZOLOFT) 100 MG tablet TAKE 1/2 TABLET FOR ONE WEEK, THEN INCREASE TO 1 TABLET DAILY. 90Tablet 0 SUMAtriptan (IMITREX) 50 MG tablet Take 1 Tablet by mouth as needed for Migraine. May repeat one tablet after 2 hours if needed. Maximum 4 tabs/24 hours and 9 days/month 9 Tablet 2 No current facility-administered medications for this visit. Allergies Allergen Reactions Amoxicillin Hives Diphenhydramine Breathing Difficulty and Palpitations Benadryl Macrobid [Nitrofurantoin] Hives Antihistamines, Diphenhydramine-Type Palpitations PHYSICAL EXAMINATION Pulse: 80 (12/14/21 0954) BP: 102/70 (12/14/21 0954) Height: 5' 8 (172.7 cm) (12/14/21 0954) Weight: 182 lb (82.6 kg) (12/14/21 0954) BMI: 27.67 (12/14/21 0954) General Appearance: Normal HEENT: Normal Neck: Normal Lungs: Normal Heart: Normal Abdomen: Normal Extremities: Normal Skin: Normal Neurologic: Normal TEST RESULTS AND DATE EKG done: No Labs done: Today: 12/14/2021. Latest Reference Range & Units 12/14/21 10:24 Potassium 3.5 - 5.1 mmol/L 4.0 Creatinine 0.55 - 1.02 mg/dL 0.80 GFR, Estimated >60 mL/min/1.73m2 >60 WBC 3.5 - 10.5 x10(9)/L 7.9 RBC 3.90 - 5.03 x10(12)/L 4.62 Hemoglobin 12.0 - 15.5 g/dL 14.1 HCT 34.9 - 44.5 % 42.2 MCV 80.0 - 100.0 fL 91.3 MCH 27.6 - 33.3 pg 30.5 MCHC 31.5 - 35.2 g/dL 33.4 RDW 11.9 - 15.5 % 13.0 Platelets 150 - 450 x10(9)/L 213 . ASSESSMENT 1. Preoperative Assessment: This patient has been examined by me today and has been found to be a suitable candidate for surgery: Yes ICD-10-CM 1. Preoperative examination Z01.818 Complete Blood Count-No Diff Creatinine / GFR Potassium 2. Elective surgery Z41.9 3. Migraine without status migrainosus, not intractable, unspecified migraine type G43.909 propranolol (INDERALLA) 80 MG 24 hour release capsule RECOMMENDATIONS AND PLAN Day of surgery testing: none Medication recommendations including insulin / diabetes: Hold NSAID's one week before surgery. Hold hydrochlorothiazide the morning of surgery. Additional screening recommended: no Consult (Cardiology/other): no Additional test results attached: none Recommend RT assessment post op for Oxygenation and ventilation monitoring: no Other: no - Do not eat anything after midnight the evening before your surgery. - It is OK to drink water or Gatorade up to 4 hours before your surgery. - You may take medicines before surgery with a small sip of water ABOVE RECOMMENDATIONS WERE REVIEWED WITH PATIENT: yes 12/14/2021 documented in this encounter Plan of Treatment Not on filedocumented as of this encounter Results Potassium (12/14/2021 10:24 AM CDT) P athologist Signature Potassium 4.0 3.5 - 5.1 12/14/2021 [place] mmol/L 3:22 PM CDT LABORATORY Specimen Anatomical Collection Method / Collection Time Recei doc Time (Source) Location / Volume Laterality Blood Venipuncture / 12/14/2021 10:24 2 Unknown AM CDT 10:24 AM CDT Natanael Gonzalez MD LAB_1 Performing Organization Address City/[facility]/ZIP Code Phon e Number [facility] [address] [place] [phone] Creatinine / GFR (12/14/2021 10:24 AM CDT) athologist Signature Creatinine 0.80 0.55 - 12/14/2021 [place] 1.02 mg/dL 3:22 PM CDT LABORATORY GFR, Estimated >60 >60 12/14/2021 [place] mL/min/1.7 3:22 PM CDT LABORATORY 3m2 Specimen Anatomical Collection Method / Collection Time Recei doc Time (Source) Location / Volume Laterality Blood Venipuncture / 12/14/2021 10:24 2 Unknown AM CDT 10:24 AM CDT Natanael Gonzalez MD LAB_1 Performing Organization Address [facility]/ZIP Code Phon e Number [facility] [address] [place] [address] Complete Blood Count-No Diff (12/14/2021 10:24 AM CDT) athologist Signature WBC 7.9 3.5 - 10.5 12/14/2021 [place] x10(9)/L 10:28 AM CDT LABORATORY RBC 4.62 3.90 - 5.03 12/14/2021 [place] x10(12)/L 10:28 AM CDT LABORATORY Hemoglobin 14.1 12.0 - 15.5 12/14/2021 [place] g/dL 10:28 AM CDT LABORATORY HCT 42.2 34.9 - 44.5 12/14/2021 [place] % 10:28 AM CDT LABORATORY MCV 91.3 80.0 - 12/14/2021 [place] 100.0 fL 10:28 AM CDT LABORATORY MCH 30.5 27.6 - 33.3 12/14/2021 [place] pg 10:28 AM CDT LABORATORY MCHC 33.4 31.5 - 35.2 12/14/2021 [place] g/dL 10:28 AM CDT LABORATORY RDW 13.0 11.9 - 15.5 12/14/2021 [place] % 10:28 AM CDT LABORATORY Platelets 213 150 - 450 12/14/2021 [place] x10(9)/L 10:28 AM CDT LABORATORY Specimen Anatomical Collection Method / Collection Time Recei doc Time (Source) Location / Volume Laterality Blood Venipuncture / 12/14/2021 10:24 2 Unknown AM CDT 10:24 AM CDT Natanael Gonzalez MD LAB_1 Performing Organization Address City/State/ZIP Code Phon e Number [facility] [address] [facility] [place] [address] documented in this encounter Visit Diagnoses Diagnosis Preoperative examination - Primary Preoperative examination, unspecified Elective surgery Unspecified elective surgery for purpose s other than remedying health states Migraine without status migrainosus, not intractable, unspecified migraine type documented in this encounter Care Teams [employer] Relationship Specialty Start Date End Date Shannan Matthews DO PCP - General Family Practice 10/13/19 [address] [place] [place] [id number] documented as of this encounter
--- OUTSIDE RECORDS SUMMARY | 2022-04-25 22:29 | XMS_ITS | Encounter Summary ---
:1985 Author Organization [employer] Address [address] [place] [address] Care Team Providers Name Role Phone Shannan Matthews DO Primary Care Provider Reason for Visit Reason Comments Arm Injury left DOI: 02/25/21 BJ: fall 4ft out of camper Encounter Details Date Type Department Care Team Description 03/16/2021 Office Visit [facility] Walter Rodriguez, Closed nondisplaced Urgent Care DO fracture of styloid [address] [facility] process of left [place], [place] [address] [place], [place] radius, initial [phone] encounter (Primary Dx) Social History Tobacco Use Types Packs/Day Years Used Date Smoking Tobacco: Never Smokeless Tobacco: Never Alcohol Use Standard Drinks/Week Comments Not Currently 2 (1 standard drink = 0.6 oz pure alcoho l) rare Sex Assigned at Date Recorded Not on file documented as of this encounter Last Filed Vital Signs Vital Sign Reading Time Taken Comments Blood Pressure - - Pulse - - Temperature 36.3 ??C (97.4 ??F) 03/16/2021 5:25 PM CDT Respiratory Rate - - Oxygen Saturation - - Inhaled Oxygen Concentration - - Weight 77.1 kg (170 lb) 03/16/2021 5:25 PM CDT Height 172.7 cm (5' 8) 03/16/2021 5:25 PM CDT Body Mass Index 25.85 03/16/2021 5:25 PM CDT documented in this encounter Patient Instructions Patient InstructionsLula Green, ATC - 03/16/2021 5:[address] Danica Rodriguez, DO Sports & Orthopaedic Medicine [facility] Nurse Line: [phone] Please contact Orthopedic Urgent Care line for all requests and questions. Medication Requests: Prescriptions are not filled on Weekends or on Weekdays after 3:00PM For all medication refills: Request a refill using MyChart or contact your Pharmacy To schedule appointments: [phone] Paperwork Requests: FMLA or disability paperwork can be faxed to: [phone] Medical records: [phone] (option 4) [employer] E-mail Address: [email or web address] Diagnosis: Left Radial Syloid Fracture Plan: Short arm cast Follow up in 3 weeks Wearing a cast: The cast you are wearing is there to hold your bones in place while your body heals your injury. 1) Never put anything in your cast for any reason, especially to scratch an itch. This can unintentionally open small wounds in the skin, which are a portal for infection to enter your body. This is anextremely serious problem. Please heed this warning. 2) Stay away from sand, gravel, etc. This can get into the cast and cause the problems mentioned above. 3) Do not attempt to remove your own cast. Expertise is required for this process - to keep you safe. 4) The person who applies your cast will inform you if you have a cast that is safe to get wet. Unless you are 100% certain that you have been told your cast is safe to get wet, keep it dry at all times. If you get your cast wet and it is not a water immersible cast, contact our office immediately. Itmay need to be replaced. 5) It is important to limit cast replacement as much as possible. Every time the cast is changed, the injured bone/tendons/ligaments have an opportunity to move. This can delay or prevent healing. Please keep your cast clean and in good condition to limit the need for cast changes. 6) Swelling is painful in a cast and can also be dangerous. Elevation above the heart for extended periods is the preferred method to relieve swelling. Icing can also help, but in a cast it can requireextended periods of icing to achieve successful swelling reduction. Both elevation and icing work together. 7) If the cast is tight and restricting blood flow causing the fingers or toes to turn blue and cold, and this is not relieved within 30 minutes of maximum possible elevation above the heart, this would be considered an emergency. You cannot wait to care for this problem. Proceed directly to the [facility] [address] [place] [address] Orthopedic office between 8:30 and 4:00 pm. If you experience this problem outside of these hours, go to [facility] or urgent care to have your cast split or bi-valved. 8) Do not remove any of the padding from inside your cast. The fiberglass shell can damage your skinwithout the padding to protect you. 9) If your cast becomes loose as swelling reduces, and you can move around easily inside of it, please make an appointment as soon as possible to have it replaced with a cast that will fit better. 10) If you feel a persistent burning sensation in any specific area, particularly over a bony prominence, please make an appointment to return to the clinic for evaluation. We do not wish to risk blisters or pressure sores forming under the cast. documented in this encounter Progress Notes Walter Rodriguez DO - 03/16/2021 12:00 AM CDT NAME: ESTEFANIA MCKEON CSN: [id number] CLINIC NOTE DATE OF SERVICE: 03/16/2021 : 1985 HPI: This is a 35-year-old female who presents regarding a left wrist injury. She sustained a fall while getting out of her camper back on 02/25/2021. She was camping with her family. She was taking some objects out of her camper and ended up jumping onto the camper causing her to fall forward. She ended up falling forward and landed directly on her left wrist and hand. She had fairly sudden onset ofpain and a fair amount of swelling subsequently. Over the past 3 weeks, she has had some ongoing discomfort and she localizes pain primarily over the radial aspect of her left wrist. Her swelling has improved but she continues to note a fair amount of pain over the radial aspect of her wrist. Her painis an 8/10 in severity and she notes pain when she attempts to flex and extend her wrist. She also notes a fair amount of pain when she rotates her forearm. She was seen in Urgent Care on 03/11/2021. She had x-rays obtained and she received a phone call stating that there was a possible fracture to her distal radius. She was told to purchase an [id number] wrist brace. She ended up purchasing a brace but states that this does not seem to help with her discomfort. She has questions regarding ongoing management. PAST MEDICAL HISTORY: Reviewed and updated. MEDICATIONS: Per [employer]. ALLERGIES: AMOXICILLIN, BENADRYL, MACROBID, ANTIHISTAMINES. 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 She is right-hand dominant. She is a nonsmoker. She has small children at home. REVIEW OF SYSTEMS: She denies any fevers, chills, or rashes. She has noted some numbness and tingling into her left 4thand 5th digits. PHYSICAL EXAM: VITAL SIGNS: Height 5 feet 8 inches, weight 170 pounds, temp 97.4. GENERAL: This is awell-appearing 35-year-old female. She appears comfortable and in no distress. MUSCULOSKELETAL: Leftwrist exam shows no visible swelling or deformity. Nontender over her left elbow and proximal forearm on palpation. She does have tenderness over her distal radius and radial styloid. Nontender over her distal ulna and ulnar styloid. No snuffbox tenderness. Nontender over the entirety of her carpal row or the metacarpals of her left hand. She does have discomfort with end range of wrist flexion and extension. She has mild discomfort with forearm pronation, supination as well. No bruising or skin changes noted. Sensation is grossly intact to her left upper extremity. Good capillary refill noted. IMAGING: Reviewed her left wrist radiographs from 03/11/2021. On the AP view, there is a possible irregularity to her radial styloid concerning for a nondisplaced fracture. No other findings noted. ASSESSMENT: Left wrist radial styloid fracture. PLAN: We discussed her current findings. We discussed her current radiographs and her ongoing discomfort. I explained my suspicion of a radial styloid fracture. She has had little improvement with her brace and therefore, I recommended placement into a cast. She was fitted for a short-arm cast in clinic today and she will continue in this over the next 3 weeks. She will follow up in our clinic in 3 weeks for recheck where repeat left wrist radiographs will be obtained out of her cast, and we will discuss likely further advancement. She is comfortable with plan and will follow up as directed. WALTER RODRIGUEZ DO ISAMAR/AQS /[id number] documented in this encounter Plan of Treatment Not on filedocumented as of this encounter Visit Diagnoses Diagnosis Closed nondisplaced fracture of styloid process of left radius, initial encounter - Primary documented in this encounter Care Teams Unified Communications Architect Relationship Specialty Start Date End Date Shannan Matthews DO PCP - General Family Practice 10/13/19 [address] [id number] documented as of this encounter
--- OUTSIDE RECORDS SUMMARY | 2022-04-25 22:29 | XMS_ITS | Encounter Summary ---
:1985 Author Organization [employer] Address [address] [place] [address] Care Team Providers Name Role Phone Shannan Kemp DO Primary Care Provider Reason for Visit Reason Comments Refill sertraline (ZOLOFT) 100 MG t ablet [Pharmacy Med Name: SERTRALINE HYDROCHLORIDE 100MG TABLET] Encounter Details Date Type Department Care Team Description 02/10/2022 Refill Shannan Gu DO Refill (sertraline Medicine [address] [place] [place] (ZOLOFT) 100 MG tablet [address] [Pharmacy Med Name: [address] [address] [address] [id number] SERTRALINE HYDROCHLORIDE [phone] (Wo rk) 100MG TABLET]) Social History Tobacco Use Types Packs/Day Years Used Date Smoking Tobacco: Never Smokeless Tobacco: Never Alcohol Use Standard Drinks/Week Comments Not Currently 2 (1 standard drink = 0.6 oz pure alcoho l) rare Sex Assigned at Date Recorded Not on file documented as of this encounter Nursing Notes Lenore Lorenzo LPN - 02/15/2022 8:51 AM CDT Left VM informing pt medication has been refill and need for medication check with PCP. Phone numberleft to make appt. Kavon King MD - 02/14/2022 4:52 PM CDT Provided short-term supply. Follow-up with PCP for further refills. Aleksey Palm, MICHAEL - 02/13/2022 4:28 PM CDT Further Assistance Needed on Refill from Clinician RN reviewed. Signed order needed. Requested medication needs an order signed by an authorized prescriber. Last qualifying visit: 12/14/2021 with KAVON KING (pre op) Next scheduled visit: None Review pended order for accuracy. Sign if appropriate. Document if appointment is needed for furtherrefills. Route to care team to notify patient if needed. Requested Prescriptions Pending Prescriptions Disp Refills sertraline (ZOLOFT) 100 MG tablet [Pharmacy Med Name: SERTRALINE HYDROCHLORIDE 100MG TABLET] 90 Tablet 2 Sig: TAKE 1/2 TABLET FOR ONE WEEK, THEN INCREASE TO 1 TABLET DAILY. Interface, Out Surescripts Prov Query - 02/10/2022 12:37 PM CDT sertraline (ZOLOFT) 100 MG tablet [Pharmacy Med Name: SERTRALINE HYDROCHLORIDE 100MG TABLET] Medication started: 03/08/2019 Last ordered by SHANNNA KEMP: 08/03/2021 (191 days ago) QTY: 90, Refills: 0, Sig: take 1/2 tabletfor one week, then increase to 1 tablet daily. (unchanged) -> An office visit is overdue (performed over 20 months ago, required every 12 months). Last qualifying visit: 06/06/2020 (with SHANNAN KEMP) (A more recent visit (in Family Practice with KAVON KING) was found) Next scheduled visit: None Age: 36 [employer] Embedded Refills, Reference: [id number], 02/10/2022 12:37:38 PM CDT, Pool: DEBRA MALHOTRAELIZABETH ([id number]) documented in this encounter Plan of Treatment Not on filedocumented as of this encounter Visit Diagnoses Not on filedocumented in this encounter Care Teams Tire Maintenance Technician Relationship Specialty Start Date End Date Shannan Kemp DO PCP - General Family Practice 10/13/19 [address] [id number] documented as of this encounter
--- OUTSIDE RECORDS SUMMARY | 2022-04-25 22:29 | XMS_ITS | Encounter Summary ---
:1985 Author Organization [facility] Address [address] [place] [address] Care Team Providers Name Role Phone Farnaz Matthewssey Jose VALDIVIA Primary Care Provider Reason for Visit Procedure/Equipment (Routine) - Incomplete Specialty Diagnoses / Procedures Referred By Contact Refer red To Contact Diagnoses Left wrist pain Ra Bryan, Procedures XR Wrist Lt 3 Views + Navicular [facility] [address] [place] [address] Referral ID Status Reason Start Date Expiration Date Visits V isits Requested Authorized [id number] Incomplete 03/11/2021 06/10/2022 1 1 Encounter Details Date Type Department Care Team Description 03/11/2021 Ancillary Procedure [facility] Irvin, Left wrist pain [address] [place] [address] [phone] [place] [address] Social History Tobacco Use Types Packs/Day Years Used Date Smoking Tobacco: Never Smokeless Tobacco: Never Alcohol Use Standard Drinks/Week Comments Not Currently 2 (1 standard drink = 0.6 oz pure alcoho l) rare Sex Assigned at Date Recorded Not on file documented as of this encounter Progress Notes Ra Bryan MBChB - 03/11/2021 11:15 AM CDT X-ray shows questionable hairline nondisplaced intra-articular fracture. This was discussed with thepatient. Recommended further evaluation with MRI of the wrist which patient declines at this time. Prefers to trial symptomatic cares with a wrist brace in [id number] pain medications. Will call or follow up at the clinic if persistent or worsening symptoms. Questions and concerns addressed documented in this encounter Plan of Treatment Not on filedocumented as of this encounter Procedures Procedure Name Priority Date/Time Associated Diagnosis Comme nts XR WRIST LT 3 VIEWS Routine 03/11/2021 11:21 AM Left wrist van n Results for this + NAVICULAR CDT procedure are i n the results section. documented in this encounter Results XR Wrist Lt 3 Views + Navicular (03/11/2021 11:21 AM CDT) Anatomical Region Laterality Modality Upper Extremity, Wrist Digital Radiograp hy Specimen (Source) Anatomical Collection Method Collection Time Re ceived Time Location / / Volume Laterality 03/11/2021 11:13 AM CDT Impressions 03/11/2021 12:55 PM CDT COMPARISON: ??None. FINDINGS: ??Question slight vague curvil inear lucency at the radial styloid as seen on the AP view. This may simply be due to trabeculation but raises question for hairline nondisplaced intra-articular fracture. Marker at site of pain does ov erlie this region. No fracture otherwise identified. No dislocation. Joint spaces appear within normal limits. Procedure Note Navneet Willis MD - 03/11/2021Formatt ing of this note might be different from the original. IMPRESSION COMPARISON: None. FINDINGS: Question slight vague curvilin ear lucency at the radial styloid as seen on the AP view. This may simply be due to trabeculation but raises question for hairline nondisplaced intra-articular fracture. Marker at site of pain does overlie this region. N o fracture otherwise identified. No dislocation. Joint spaces appear within normal limits. Ra Garcia RAD GD documented in this encounter Visit Diagnoses Diagnosis Left wrist pain Pain in joint, forearm documented in this encounter Care Teams Glass Tinter Relationship Specialty Start Date End Date Shannan Matthews DO PCP - General Family Practice 10/13/19 [address] [id number] documented as of this encounter
--- OUTSIDE RECORDS SUMMARY | 2022-04-25 22:29 | XMS_ITS | Encounter Summary ---
:1985 Author Organization [facility] Address [address], [place] [address] Care Team Providers Name Role Phone Shannan Matthews DO Primary Care Provider Reason for Visit Reason Comments Letter Encounter Details Date Type Department Care Team Description 11/06/2021 Telephone [facility] [place] Shannan Matthews DO Letter [address] [facility] [address] [place] [address] [place], [place] [address] (Wo rk) Social History Tobacco Use Types Packs/Day Years Used Date Smoking Tobacco: Never Smokeless Tobacco: Never Alcohol Use Standard Drinks/Week Comments Not Currently 2 (1 standard drink = 0.6 oz pure alcoho l) rare Sex Assigned at Date Recorded Not on file documented as of this encounter Nursing Notes Naren Talbot MA - 11/06/2021 10:54 AM CDT Information regarding medications has been faxed. Lina Palomares - 11/06/2021 10:40 AM CDT Forms & Letters What form/letter are you requesting? Letter/Other What form/letter are you requesting? Letter for plastic surgeon stating she is taking 3 medications for headaches, pt does not know the names of the medication This form/letter is needed from: Shannan Matthews, DO How will you be submitting this form/letter to us? Requesting letter from clinician/clinic Return to: Other - [facility] Return method: Fax #: [phone] Attention: Anyi Additional comments (related to the above concern): Is it okay to leave a detailed message on your voicemail? Yes documented in this encounter Plan of Treatment Not on filedocumented as of this encounter Visit Diagnoses Not on filedocumented in this encounter Care Teams Surgical Garment Inspector Relationship Specialty Start Date End Date Shannan Matthews DO PCP - General Family Practice 10/13/19 [address] [id number] documented as of this encounter
--- OUTSIDE RECORDS SUMMARY | 2022-04-25 22:29 | XMS_ITS | Clinical Summary ---
:1985 Author Organization [facility] Address [address] [place] [address] Care Team Providers Name Role Phone Farnaz Matthewssey Jose VALDIVIA Primary Care Provider Source Comments You are receiving this document as you are listed as the primary care provider,follow-up provider, or the patient has been referred to you for consultation.This is in compliance with the Medicare and Medicaid EHR Incentive Program,which states Providers who transition their patient to another setting of careor provider of care or refers their patient to another provider of care shouldprovide summarycare record for each transition of care or referral. Standing Cloud Allergies Active Allergy Reactions Severity Noted Date Comments Amoxicillin Hives High 07/28/2010 Antihistamines, Palpitations Medium 07/25/2012 Diphenhydramine-Type Diphenhydramine Breathing Difficulty, High 10/03/2014 Mega adryl Palpitations Nitrofurantoin Hives High 01/16/2019 Medications Medication Sig Dispensed Refills Start Date End Date Status cetirizine (ZYRTEC) 10 MG Take 10 mg by 0 Active tablet mouth daily. SUMAtriptan (IMITREX) 50 Take 1 Tablet 9 Tablet 2 08/22/2019 Active MG tabletIndications: by mouth as Headaches needed for Migraine. May repeat one tablet after 2 hours if needed. Maximum 4 tabs/24 hours and 9 days/month fluticasone propionate Place 2 Sprays 0 10/07/2021 Active (FLONASE) 50 MCG/ACT into both nasal solution nostrils daily. sertraline (ZOLOFT) 100 TAKE 1/2 30 Tablet 0 02/14/2022 Active MG tablet TABLET FOR ONE WEEK, THEN INCREASE TO 1 TABLET DAILY. propranolol (INDERALLA) TAKE 1 CAPSULE 90 Capsule 3 02/10/2022 Active 80 MG 24 hour release BY MOUTH capsuleIndications: DAILY. Migraine without status migrainosus, not intractable, unspecified migraine type hydroCHLOROthiazide TAKE 1 TABLET 90 Tablet 0 02/15/202202/15 Active (ORETIC) 25 MG BY MOUTH 3 tabletIndications: Kidney DAILY. stone Active Problems Problem Noted Date Endometriosis 01/10/2020 Encounter for female sterilization procedure 9 Overview: Added automatically from request for kushal jameson [id number] Vitamin D deficiency 11/05/2014 Recurrent kidney stones 11/05/2014 Overview: cystoscopy 2003, duplicated collecting s ystem on left History of blood transfusion 11/05/2014 Overview: multiple transfusions for iron deficienc y anemia Bicornuate uterus 09/28/2011 Resolved Problems Problem Noted Date Resolved Date Kidney stone 08/28/2020 09/17/2020 Overview: Added automatically from request for kushal jameson [id number] Right kidney stone 03/07/2020 09/17/2020 Overview: Added automatically from request for kushal jameson [id number] Pyelonephritis of right kidney 02/24/2020 2 Overview: Added automatically from request for kushal ajmeson [id number] Bicornate uterus complicating , first trimester 01/08/2019 Maternal renal lithiasis, current 02/07/2015 03/08/2019 Maternal urinary tract infection, recurrent 02/07/2015 08/08/2015 Overview: 3 UTI by 26 weeks, daily suppressive the rapy started. KEZIA (iron deficiency anemia) 11/20/2014 09/17/2020 Uterus bicornis affecting in third trimester 10/1803/08/2019 Overview: Cervical length stable. Growth ultrasoun d at 30 weeks. Nonspecific abnormal finding 08/18/2011 03/08/2019 Overview: Overview: 08/18/11 ASCUS dx pap. Neg HPV. Repeat pa p 6 months 06/18/13 Dx pap NIL with Neg high risk HP V. Plan: cotest in 3 years Encounters Date Type Specialty Care Team Description 04/17/2022 Refill Family Medicine Natanael Gonzalez Refil l (sertraline (ZOLOFT) 100 MD MG tablet [Phar aminata Med Name: SERTRALINE HYDR OCHLORIDE 100MG TABLET]) 02/10/2022 Refill Family Medicine Rosemarie Fuentes, Refill ( hydroCHLOROthiazide FRAME TABLE OPERATOR, PLATEN BUILDER UP (ORETIC) 25 MG tablet [Pharmacy Med Name: HYDRO CHLOROTHIAZIDE 25MG TABLET]) 02/10/2022 Refill Family Medicine Natanael Gonzalez Refil l (propranolol (INDERALLA) MD 80 MG 24 hour r elease capsule [Pharmacy Med N mike: PROPRANOLOL HYDROCHLORIDE E R 80MG CAPSULE EXTENDED RELEAS E 24 HOUR]) 02/10/2022 Refill Family Medicine Shannan Matthwes DO Refil l (sertraline (ZOLOFT) 100 MG tablet [Phar aminata Med Name: SERTRALINE HYDR OCHLORIDE 100MG TABLET]) from Last 3 Months Immunizations Name Administration Dates Next Due DTP 05/07/1991 DTaP 11/02/1994 Flu Vac (3+ yrs) 03/07/2015, 06/08/2012, 04/03/2010 Flu Vac Preserv Free (3+yrs) 03/03/2010 HepB Ped/Adol (0-18 yrs) 09/06/1998, 09/25/1997, 06/19/1997, 12/26/1996 Influenza IIV4 (Quadrivalent) 0.5mL 03/11/2021, 02/27/2020, 03/07/2015 (89366) MMR 05/09/2015, 09/25/1997 MPSV4 (Menomune) 12/23/2003 OPV, Trivalent (Orimune or tOPV) 11/02/1994, 05/07/1991 TDAP (BOOSTRIX) 03/21/2015 Td (7+ yrs) 09/25/1997 Tdap 11/27/2018, 06/08/2012 Varicella 12/26/1996 Family History Medical History Relation Name Comments Diabetes Father Dad Heart Disease Father Dad High Cholesterol Father Dad Crohn's Disease Mother Mom Heart Disease Mother Mom Spont Abortions Mother Mom Stroke Mother Mom Thyroid Disorder Cousin Heart Disease Maternal Grandfather Mom Cancer, Breast Paternal Grandmother Relation Name Status Comments Father Dad Mother Mom Brother Alive Cousin Maternal Grandfather Mom Alive Maternal Grandmother Alive Paternal Grandfather Paternal Grandmother Social History Tobacco Use Types Packs/Day Years [...] Pulse 80 12/14/2021 9:54 AM CDT Temperature 36.6 ??C (97.9 ??F) 04/06/2021 5:22 PM 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 Respiratory Rate 15 09/10/2020 2:59 PM CDT Oxygen Saturation 100% 09/04/2020 2:15 PM CDT Inhaled Oxygen Concentration - - Weight 82.6 kg (182 lb) 12/14/2021 9:54 AM CDT Height 172.7 cm (5' 8) 12/14/2021 9:54 AM CDT Body Mass Index 27.67 12/14/2021 9:54 AM CDT Plan of Treatment Health Maintenance Due Date Last Done Comments COVID-19 Vaccine (#1) 1985 Adult Preventive Visit 2003 Influenza (#1) 2022 03/11/2021, 02/27/2020, 03/07/2015, Additional history exists Pap 06/19/2023 06/19/2018, 10/18/2014, 07/28/2010 DTaP/Tdap/Td (7 - Tdap) 11/27/2028 11/27/2018, 03/21/2015, 06/08/2012, Additional history exists Zoster/Shingles (1 of 2) 2035 IPV (Polio) Aged Out 11/02/1994, 05/07/1991 No longer eligible based on patient 's age to complete this topic HepB Completed 09/06/1998, 09/25/1997, 06/19/1997, Additional history exists MCV4 Aged Out 12/23/2003 No longer eligib le based on patient 's age to complete this topic Hep C Screening (Preventive Completed 10/18/2014 Services) HIV Screening (Preventive Completed 06/19/2018, 10/18/2014 Services) HPV Vaccine Aged Out No longer eligib le based on patient 's age to complete this topic HepA Aged Out No longer eligib le based on patient 's age to complete this topic Hib Aged Out No longer eligib le based on patient 's age to complete this topic Pneumococcal Aged Out No longer eligib le based on patient 's age to complete this topic Medical Devices Implanted Type Area Silk Spooler Device Shelf Model / Identifier Expiration Date Ser ial / Lot Stent Uret Inlay 22-32cm 6fr - [id number] DEVICE Right: [employer] Med 07/12/2024 [id number] / Implanted: Qty: 1 on 02/24/2020 by Valentina Lockett MD at [facility] URETER / [id number] Description: 6fr X 22-32 CM Ureteral Vidal nt Stent Ureteral 8.5fr 28cm - [id number] DEVICE Right: URETER Cook Med 12/02/2022 [id number] / Implanted: Qty: 1 on 04/03/2020 by Rajendra Le MD at [facility] 000 / [id number] Stent Uret Inlay 22-32cm 6fr - [id number] DEVICE Right: URETER Ba rd Med 09/27/2023 [id number] / Implanted: Qty: 1 on 09/04/2020 by Payton Mejia MD at [facility] / [id number] Description: EXPALANTED 6 X 28 STENT ISSA T WAS USED BEFORE THIS ONE Insurance Payer Benefit Plan / Subscriber ID Effective Dates Phone Addre ss Type Group [place] [id number] 2021-Present [address] [address] Commercial [place] [phone] Eddie Mckeon Personal/Family Self [birth year][address] (Home) S [phone] Tracey COVARRUBIAS (Work) [phone] Advance Directives Latest Code Status on File Code Status Date Activated Date Inactivated Comments Full Code 02/24/2020 2:40 PM 02/27/2020 6:21 PM Code Status History Code Status Date Activated Date Inactivated Comments Full Code 11/16/2019 12:38 PM 11/16/2019 4:00 PM Care Teams Certified Medical Coding Specialist Relationship Specialty Start Date End Date Shannan Matthews DO PCP - General Family Practice 10/13/19 [address] [place] [id number]
--- OUTSIDE RECORDS SUMMARY | 2022-04-25 22:29 | XMS_ITS | Encounter Summary ---
:1985 Author Organization [facility] Address [address] [place] [address] Care Team Providers Name Role Phone CassieShannan Primary Care Provider Reason for Visit Reason Comments Refill propranolol (INDERALLA) 80 M G 24 hour release capsule [Pharmacy Med Name: PROPRANOLOL HYDROCHLORIDE ER 80MG CAPSULE EXTENDED RELEASE 24 HOUR] Encounter Details Date Type Department Care Team Description 02/10/2022 Refill Kavon Fernandes Refil l (propranolol Medicine (INDERALLA) 80 MG [address] release capsule [Pharmacy [place] [id number] [place] [id number] Med Name: PROPRANOLOL [phone] (Wo rk) HYDROCHLORIDE ER 80MG CAPSULE E XTENDED RELEASE 24 HOUR]) Social History Tobacco Use Types Packs/Day Years Used Date Smoking Tobacco: Never Smokeless Tobacco: Never Alcohol Use Standard Drinks/Week Comments Not Currently 2 (1 standard drink = 0.6 oz pure alcoho l) rare Sex Assigned at Date Recorded Not on file documented as of this encounter Nursing Notes Ceci Lowery RN - 02/10/2022 3:02 PM CDT Renewed medication per medication refill protocol. Requested Prescriptions Pending Prescriptions Disp Refills ??? propranolol (INDERALLA) 80 MG 24 hour release capsule [Pharmacy Med Name: PROPRANOLOL HYDROCHLORIDE ER 80MG CAPSULE EXTENDED RELEASE 24 HOUR] 90 Capsule 3 Sig: TAKE 1 CAPSULE BY MOUTH DAILY. sent per rx 12/14/21 Interface, Out Sport Universal Process Prov Query - 02/10/2022 12:38 PM CDT propranolol (INDERALLA) 80 MG 24 hour release capsule [Pharmacy Med Name: PROPRANOLOL HYDROCHLORIDE ER 80MG CAPSULE EXTENDED RELEASE 24 HOUR] Medication started: 08/22/2019 Last ordered by KAVON KING: 12/14/2021 (58 days ago as No Print/No Fill on 12/14/2021 by KAVON KING), Sig: take 1 capsule (80 mg) by mouth daily. (changed but equivalent) -> Refill x 12 months, qty: 90, refills: 3 (until due for an office visit) Last qualifying visit: 12/14/2021 (with KAVON KING) Next scheduled visit: None [facility] Embedded Refills, Reference: [id number], 02/10/2022 12:38:05 PM CDT, Pool: DEBRA REFILL ([id number]) documented in this encounter Plan of Treatment Not on filedocumented as of this encounter Visit Diagnoses Diagnosis Migraine without status migrainosus, not intractable, unspecified migraine type documented in this encounter Care Teams Diesel Roller Operator Relationship Specialty Start Date End Date Shannan Matthews DO PCP - General Family Practice 10/13/19 [address] [place] [id number] documented as of this encounter
--- OUTSIDE RECORDS SUMMARY | 2022-04-25 22:29 | XMS_ITS | Encounter Summary ---
:1985 Author Organization [facility] Address [address], [place] [address] Care Team Providers Name Role Phone CassieShannan Jose VALDIVIA Primary Care Provider Reason for Referral Procedure/Equipment (Routine) - Incomplete Specialty Diagnoses / Procedures Referred By Contact Refer red To Contact Diagnoses Hydronephrosis of right kidney Payton Mejia MD Procedures NM Renogram With Lasix Flow/Function [address] [place], [place] [address] Referral ID Status Reason Start Date Expiration Date Visits V isits Requested Authorized [id number] Incomplete 10/22/2020 01/21/2022 6 6 Reason for Visit Reason Comments Phone Visit Encounter Details Date Type Department Care Team Description 10/22/2020 Phone Visit Payton Alvares, Hydronep hrosis of right [facility] - kidney (Primary Dx) Urology [address] [facility] [address] [facility] [place] [address] [phone] Social History Tobacco Use Types Packs/Day Years Used Date Smoking Tobacco: Never Smokeless Tobacco: Never Alcohol Use Standard Drinks/Week Comments Not Currently 2 (1 standard drink = 0.6 oz pure alcoho l) rare Sex Assigned at Date Recorded Not on file documented as of this encounter Progress Notes Payton Mejia MD - 10/22/2020 12:00 AM CDT NAME: ESTEFANIA MCKEON CSN: [id number] CLINIC NOTE DATE OF SERVICE: 10/22/2020 : 1985 Estefania is a very pleasant 35-year-old woman with a history of kidney stones. She had a very large staghorn kidney stone that was removed by Dr. Danyel Lockett in March of 2020. She continued to have significant symptoms. She underwent a repeat CT scan that showed small stones and significant hydronephrosis. She then underwent a renal scan that showed function in the kidney of 33% with a washout of 31 minutes. I took her back to the operating room for ureteroscopy and retrograde and to remove whatever stones were remaining. I was able to get a stone into the upper pole of the kidney and I wanted to see if this would improve her symptoms. The patient did not have any significant stone burden that was graspable. It was just really some sand and tiny gravel at the time of the procedure. The patient notes that she continues to have overall improvement in her back symptoms. She states that she does not have as much pressure. She can be playing with her kids. She noted last time that shehad this overall fatigue and sense of feeling off and that overall has actually improved some. She was very dizzy over the weekend. She had some gross hematuria from the stent and Tuesday she just feltexhausted, but she notes that she has good and bad days, but it is slightly better than it was before. DISCUSSION: I had a good discussion with the patient about where to go from here. 1. I would like to repeat her renal scan to see if she has had any improvement with the stent in place. 2. After reviewing those results, my goal would be to take out the stent and see how she does without the stent. 3. If the renal scan shows an improvement and we take out the stent and the symptoms come back we can consider surgery or a referral to try to get the upper pole draining better. ASSESSMENT: History of hydronephrosis, continued symptoms, history of kidney stones and staghorn kidney stone. PLAN: Renal scan. Follow up with me after renal scan to discuss further treatment as noted above. Total time today was 20 minutes. Time was spent talking with the patient on the phone, reviewing thepatient's chart, and documentation as well as placing orders. MD ANNA MELENDREZ/PARRIS /[id number] documented in this encounter Plan of Treatment Not on filedocumented as of this encounter Results NM Renogram With Lasix [...] decreased right renal function. Procedure Note Alvarado Horne DO - 10/27/2020For matting of this note [...] with associated decreased right renal function. Payton Mejia MD RAD NM documented in this encounter Visit Diagnoses Diagnosis Hydronephrosis of right kidney - Primary Hydronephrosis Hydronephrosis of right kidney Hydronephrosis documented in this encounter Care Teams Section Leader Relationship Specialty Start Date End Date Shannan Matthews DO PCP - General Family Practice 10/13/19 [address] [place] [place] [id number] documented as of this encounter
--- OUTSIDE RECORDS SUMMARY | 2022-04-25 22:29 | XMS_ITS | Encounter Summary ---
:1985 Author Organization [facility] Address [address], [place] [address] Care Team Providers Name Role Phone Shannan Matthews DO Primary Care Provider Encounter Details Date Type Department Care Team Description 11/25/2020 Office Visit Payton Alvares, Hydronep hrosis of [facility] - kidney (Primary Dx) Urology [address] [place] [id number] Social History Tobacco Use Types Packs/Day Years Used Date Smoking Tobacco: Never Smokeless Tobacco: Never Alcohol Use Standard Drinks/Week Comments Not Currently 2 (1 standard drink = 0.6 oz pure alcoho l) rare Sex Assigned at Date Recorded Not on file documented as of this encounter Progress Notes Payton Mejia MD - 11/25/2020 12:00 AM CDT NAME: ESTEFANIA MCKEON [facility]: [id number] CLINIC NOTE DATE OF SERVICE: 11/25/2020 : 1985 Estefania is a very pleasant 35-year-old woman with a history of kidney stones. She had a very large staghorn kidney stone that was removed by Dr. Danyel Lockett in March of 2020. She continued to have significant symptoms. She underwent a CT scan that showed some small stones with significant upper pole hydronephrosis. She had a renal scan that showed kidney function on the right of 33% with a washout of 34 minutes. The patient went back to the operating room for ureteroscopy and retrograde ureteral pyelogram and to remove whatever stones were remaining. The patient really just had tiny fragments. There was nothing that I could really grasp with the basket. I was able to get a stent into the upper pole of the kidney and I wanted to see if this would improve her symptoms. The patient had overall an improvement with her back symptoms. She underwent a repeat renal scan that showed no significant improvement in the renal function with the stent in the upper pole of the kidney. The washout was actually significantly worse at 85 minutes. We took the stent out to see how the patient would do without the stent. I had a good discussion with Estefania. I feel like if the symptoms are livable that we do not try any surgery. I am not sure how to make her pain better other than removing the kidney, whether or not there is any way to remove the hydronephrotic part of the kidney is something that I do not know if itis really feasible. She continues to have good function on that right side with 33% of her renal function. Therefore, I would be concerned with removing the kidney. We also talked about possible 2nd opinion at the [facility] or at the [facility] to see if they have any thoughts on what would be the best management to get the patient the most comfortable. ASSESSMENT: Upper pole hydronephrosis on the right side still causing some discomfort. PLAN: The patient will monitor symptoms and follow up with me at 6 months. She will consider a 2nd opinion consultation with the [facility] or [facility]. Total time today was 20 minutes. Time was spent talking with the patient, reviewing her chart, and documentation. MD ANNA MELENDREZ/PARRIS /[id number] Payton Mejia MD - 11/25/2020 12:00 AM CDT . documented in this encounter Plan of Treatment Not on filedocumented as of this encounter Visit Diagnoses Diagnosis Hydronephrosis of right kidney - Primary Hydronephrosis documented in this encounter Care Teams Eeo Officer Relationship Specialty Start Date End Date Shannan Mathtews DO PCP - General Family Practice 10/13/19 [address] [facility] [place] [id number] documented as of this encounter
--- OUTSIDE RECORDS SUMMARY | 2022-04-25 22:29 | XMS_ITS | Encounter Summary ---
:1985 Author Organization [facility] Address [address] [place] [address] Care Team Providers Name Role Phone CassieShannan Primary Care Provider Reason for Visit Reason Comments Lab Orders Needed Encounter Details Date Type Department Care Team Description 09/17/2020 Office Visit Delia Cottrell, Fatigue, uns pecified type (Primary Dx); Medicine Janie Lock PA-C Headaches; [address] [facility] Family history of thyroid disease [place] [address] [place] [address] [phone] (Wo rk) Social History Tobacco Use Types Packs/Day Years Used Date Smoking Tobacco: Never Smokeless Tobacco: Never Alcohol Use Standard Drinks/Week Comments Not Currently 2 (1 standard drink = 0.6 oz pure alcoho l) rare Sex Assigned at Date Recorded Not on file documented as of this encounter Last Filed Vital Signs Vital Sign Reading Time Taken Comments Blood Pressure 109/72 09/17/2020 3:32 PM CDT Pulse 72 09/17/2020 3:32 PM CDT Temperature - - Respiratory Rate - - Oxygen Saturation - - Inhaled Oxygen Concentration - - Weight 77.1 kg (170 lb) 09/17/2020 3:32 PM CDT Height - - Body Mass Index 26.63 08/28/2020 4:31 PM CDT documented in this encounter Patient Instructions Patient InstructionsJanie Cottrell PA-C - 09/17/2020 3:40 PM CDT 1. Will notify of pending labs 2. Continue current medications unchanged documented in this encounter Progress Notes Janie Cottrell PA-C - 09/17/2020 3:40 PM CDT Subjective Chief Complaint Patient presents with ??? Lab Orders Needed Estefania Mckeon is a 35 y.o. female who presents alone. 1. Fatigue. Gaining weight despite improved nutrition. Moods have been variable. Family history of thyroid dysfunction on fathers side of family. Worried about possible thyroid dysfunction. 2. Headaches, stable overall. uses propranolol for suppression. Requests refill. I have personally reviewed the patient's allergies, medications, past medical history, family history, social history and problem list in detail and updated the patient record as necessary. Objective BP 109/72 (BP Location: Right Arm, BP Cuff Size: Regular) Pulse 72 Wt 170 lb (77.1 kg) LMP 08/25/2020 (Exact Date) BMI 26.63 kg/m?? General Appearance: alert, well appearing and in no apparent distress Neck: no lymphadenopathy and no thyromegaly or nodules Heart: regular rate and rhythm and no murmurs, gallops or rubs Lungs: clear to ausculation and no wheezes, rales or rhonchi Assessment and Plan Fatigue, unspecified type - TSH with Free T4 (if TSH Abnormal); Future Headaches - propranolol (INDERALLA) 80 MG 24 hour release capsule; Take 1 Capsule by mouth daily. Family history of thyroid disease - TSH with Free T4 (if TSH Abnormal); Future 1. Will notify of pending labs 2. Continue current medications unchanged, refilled propranolol. documented in this encounter Plan of Treatment Not on filedocumented as of this encounter Results TSH with Free T4 (if TSH Abnormal) (09/17/2020 4:02 PM CDT) P athologist Signature TSH, Reflex 1.21 0.30 - 4.50 09/17/2020 [facility]/mL 10:23 PM CDT LABORATORY Specimen Anatomical Collection Method / Collection Time Recei doc Time (Source) Location / Volume Laterality Blood Venipuncture / 09/17/2020 4:02 09/17/2020 4:02 Unknown PM CDT PM CDT Narrative [facility] - 09/17/2020 10:23 PM CDT Lab will automatically reflex to Free T4 when TSH results are outside of reference range for patient's age group. Janie Cottrell PA-C LAB_1 Performing Organization Address City/State/ZIP Code Phon e Number [facility] [address] [place] [address] documented in this encounter Visit Diagnoses Diagnosis Fatigue, unspecified type - Primary Headaches Family history of thyroid disease Family history of other endocrine and me tabolic diseases documented in this encounter Care Teams Utility Bill Collection Clerk Relationship Specialty Start Date End Date Shannan Matthews DO PCP - General Family Practice 10/13/19 [address] [place] [id number] documented as of this encounter
--- OUTSIDE RECORDS SUMMARY | 2022-04-25 22:29 | XMS_ITS | Encounter Summary ---
:1985 [facility] Address [address] [place] [address] Care Team Providers Name Role Phone Shannan Matthews Primary Care Provider Encounter Details Date Type Department Care Team Description 04/20/2021 marianna Monreal [phone] Social History Tobacco Use Types Packs/Day Years Used Date Smoking Tobacco: Never Smokeless Tobacco: Never Alcohol Use Standard Drinks/Week Comments Not Currently 2 (1 standard drink = 0.6 oz pure alcoho l) rare Sex Assigned at Date Recorded Not on file documented as of this encounter Progress Notes MARIANNA POWELL PROVIDER - 04/26/2021 7:11 PM CST marianna Addendum Treatment Plan Diagnosis Sinusitis Visit Date April 21, 2021 Addendum Date April 26, 2021 Estefania Brayson Date of : 85 Provider Debby Jerome, Nurse Practitioner Note From Provider Amilcar Mac, Thanks for chatting with me. Please read the updated treatment plan I created for you. Take care! MARYLOU Guardado Treatment Plan Since you have a bacterial infection, let's try an antibiotic. I sent a prescription to [facility]. I??e also listed a few self- care tips to soothe your symptoms while the antibiotic kills the bacteria. If your symptoms don't improve after 4 days, or if you have questions, select Help to Request a Call Back and we'll adjust your treatment for free. Order(s) fluticasone propionate 50 mcg/actuation spray,suspension [place] 2 spray into both nostrils once a day as directed for 30 days Note: Refills: 2 doxycycline monohydrate 100 mg capsule Take 1 capsule oral every twelve hours as directed for 7 days Note: Refills: None Sent To: [facility] [address] [place] [address] Treatment Plan Self Care Tip Topics Humidify Steam Therapy Irrigate Your Sinuses Avoid Decongestants and Antihistamines Yeast Infection Next Steps Pain Relief with Acetaminophen Warm Packs What to Expect Our goal is to treat the infection and to reduce the inflammation of your sinus tissues to promote drainage. This will make you feel better quickly. If you follow the recommendations I made on the Treatment tab, your symptoms should begin to improve in 4 days of following this treatment plan. If your symptoms haven?? improved after 4 days, select Help to Request a Call Back and we??l call you back toadjust your treatment for free. What to Watch Out For Give us a call immediately if you experience: ??? Vision changes ??? Redness and swelling of the eyes or face ??? Increasing congestion ??? Worsening pain ??? High fevers My Conditions, Orders, Allergies as of April 26, 2021 Standard condition list Kidney Disease (kidney failure, polycystic kidney disease, chronic nephritis) High Blood Pressure (Hypertension) Current orders doxycycline monohydrate (doxycycline monohydrate) fluticasone propionate (fluticasone propionate) Allergies Benadryl Allergy (diphenhydramine HCl), oral amoxicillin (amoxicillin), oral [facility] [employer] We are an online clinic open 13/12. If you have any questions or comments about this visit, please call or email [email or web address]. TRICAL ENGINEERING DRAFTSPERSON FAMILY MEDICINEMARIANNA PROVIDER - 04/20/2021 3:38 PM CST marianna Treatment Plan Diagnosis Viral Sinusitis Visit Date April 21, 2021 Estefania Mckeon Date of : 85 Provider Lydia Stone, Nurse Practitioner Note From Provider Amilcar Mac! Let?? get you feeling better!ased on your current symptoms, you have a sinus infection that is caused by a virus. our current symptoms are caused by inflammation from the virus -- not bacteria ??so fortunately you don?? need to take an antibiotic right now.ur focus needs to be on decreasing inflammation and thinning out the mucus so you can feel better, faster!he ibuprofen and Mucinex aslisted, along with nasal saline spray every 3-4 hours will help you feel better.heck out the other self-care tips I??e listed below and be sure to watch the video, too. A typical viral illness lasts about 7-10 days. If your symptoms don?? improve or happen to worsen, please Request a Call Back. We??l adjust your treatment plan for free. Feel better soon! MARYLOU Freeman Treatment Plan Let?? get you feeling better in the next 24 hours by using a prescription nasal steroid and an effective blend of mnwu-qhl-dbgkzlg products to kick this viral infection. We??l work to reduce your pain and inflammation, help drain that irritating mucus and prevent this from worsening. Because this infection is caused by a virus, an antibiotic won?? be effective at helping your pain or treating the virus. I sent your nasal steroid prescription to [facility]. This medication is also available ukxb-dlj-pthbxsb, so you may want to check with your pharmacy to see which option is morecost-friendly. If your symptoms don?? improve after 24 hours, or if you have questions, select Help to Request a Call Back and we??l adjust your treatment for free. Order(s) fluticasone propionate 50 mcg/actuation spray,suspension [place] 2 spray into both nostrils once a day as directed for 30 days Note: Refills: 2 Sent To: [facility] [address] [place] [address], [place] [address] Treatment Plan Self Care Tip Topics Relieve Facial Pressure with Nasal Steroids Inflammation Relief with Ibuprofen How to Take Your Nasal Steroid Irrigate Your Sinuses What to Expect Let?? work on reducing your pain and inflammation, as well as promoting drainage, to help kick the viral infection and get you feeling more like yourself. Follow the recommendations on the Treatment tab and your symptoms should begin to improve over the next 24 hours. If your symptoms haven?? improvedafter 1 day, select Help to Request a Callback and we??l adjust your treatment for free. What to Watch Out For Give us a call immediately if you experience: ??? Vision changes ??? Redness occurring in the face ??? Increasing congestion ??? Worsening pain ??? High fevers My Conditions, Orders, Allergies as of April 21, 2021 Standard condition list Kidney Disease (kidney failure, polycystic kidney disease, chronic nephritis) High Blood Pressure (Hypertension) Current orders fluticasone propionate (fluticasone propionate) Allergies Benadryl Allergy (diphenhydramine HCl), oral amoxicillin (amoxicillin), oral [facility] [employer] Information [facility] by [employer] We are an online clinic open 13/12. If you have any questions or comments about this visit, please call or email [email or web address]. TRICAL ENGINEERING DRAFTSPERSON documented in this encounter Plan of Treatment Not on filedocumented as of this encounter Visit Diagnoses Not on filedocumented in this encounter Care Teams Edging Machine Operator Relationship Specialty Start Date End Date Shannan Matthews DO PCP - General Family Practice 10/13/19 [address] [id number] documented as of this encounter
--- OUTSIDE RECORDS SUMMARY | 2022-04-25 22:29 | XMS_ITS | Encounter Summary ---
:1985 Author Organization [employer] Address [address], [place] [address] Care Team Providers Name Role Phone Shannan Matthews DO Primary Care Provider Reason for Visit Reason Comments ARM PAIN Encounter Details Date Type Department Care Team Description 03/10/2021 Telephone [place] [facility] Sahnnan Matthews DO ARM PAIN [address] [facility] . [address] [place] [address] [place] [id number] (Wo rk) Social History Tobacco Use Types Packs/Day Years Used Date Smoking Tobacco: Never Smokeless Tobacco: Never Alcohol Use Standard Drinks/Week Comments Not Currently 2 (1 standard drink = 0.6 oz pure alcoho l) rare Sex Assigned at Date Recorded Not on file documented as of this encounter Nursing Notes Nii Rosenberg - 03/10/2021 8:10 AM CDT Red Flag Symptoms Describe your symptoms (if pain, include location): Arm pain Caller declined to follow Red Flag Guidelines. Additional comments (related to the above concern): Pt was camping in [place] and fell out of her camper. She was seen at a site in [place]. Pt declined to speak with PN nurse For emergent symptoms: Please route and transfer to: Triage Pool (high priority) For urgent and routine symptoms: DO NOT enter a pool number. Please sign/close phone encounter documented in this encounter Plan of Treatment Not on filedocumented as of this encounter Visit Diagnoses Not on filedocumented in this encounter Care Teams Radiological Defense Officer Relationship Specialty Start Date End Date Shannan Matthews DO PCP - General Family Practice 10/13/19 [address] [id number] documented as of this encounter
--- OUTSIDE RECORDS SUMMARY | 2022-04-25 22:29 | XMS_ITS | Encounter Summary ---
:1985 Author Organization [facility] Address [address] [place] [address] Care Team Providers Name Role Phone Farnaz Matthewssey Jose VALDIVIA Primary Care Provider Reason for Referral Procedure/Equipment (Routine) - Incomplete Specialty Diagnoses / Procedures Referred By Contact Refer red To Contact Diagnoses Left wrist pain Ra Bryan, Procedures XR Wrist Lt 3 Views + Navicular [facility] [address] [place] [address] Referral ID Status Reason Start Date Expiration Date Visits V isits Requested Authorized [id number] Incomplete 03/11/2021 06/10/2022 1 1 Reason for Visit Reason Comments FALL was seen in [place] at an , see domingo turpin 03/10- having arm pain Left Arm Encounter Details Date Type Department Care Team Description 03/11/2021 Office Visit [facility] Left wr ist pain (Primary Dx); Jose Pantoja Left arm pain [address] [place] [address] [place], [place] [phone] (Wo rk) Social History Tobacco Use Types Packs/Day Years Used Date Smoking Tobacco: Never Smokeless Tobacco: Never Alcohol Use Standard Drinks/Week Comments Not Currently 2 (1 standard drink = 0.6 oz pure alcoho l) rare Sex Assigned at Date Recorded Not on file documented as of this encounter Last Filed Vital Signs Vital Sign Reading Time Taken Comments Blood Pressure 108/77 03/11/2021 10:38 AM CDT Pulse 66 03/11/2021 10:38 AM CDT Temperature - - Respiratory Rate - - Oxygen Saturation - - Inhaled Oxygen Concentration - - Weight 79.8 kg (176 lb) 03/11/2021 10:38 AM CDT Height - - Body Mass Index 27.57 08/28/2020 4:31 PM CDT documented in this encounter Progress Notes Ra Bryan, [facility] - 03/11/2021 10:40 AM CDT Chief Complaint Patient presents with ??? FALL was seen in [place] at an , see domingo turpin 03/10- having arm pain Left Arm Subjective: the patient is a 35-year-old female who presents to the clinic today for on ongoing left wrist and left arm pain. This has been ongoing for the past 2 weeks following a fall. Patient states she fell out of a comfort on to her outstretched hands x2. The patient states she did some swelling bruising which have since improved. She continues to have pain even with taking Tylenol and ibuprofen. The patient states the pain in the left arm is more on the medial aspect of the elbow. It is worse with movement. The patient also does mention some numbness of the left 4th and 5th fingers. Has not had any weakness. Patient was seen at an urgent care in [place] following the injury. X-ray of the left arm and leftwrist were noted to be negative. Of note, patient is right-hand dominant. PMH: Patient Active Problem List Diagnosis ??? Vitamin D deficiency ??? Recurrent kidney stones ??? History of blood transfusion ??? Encounter for female sterilization procedure ??? Bicornuate uterus ??? Endometriosis ??? Pyelonephritis of right kidney , Past Surgical History: Procedure Laterality Date ??? CYSTOSCOPY 2004 Kidney stones ??? HX APPENDECTOMY 1998 ??? SALPINGECTOMY Bilateral ??? TUBAL LIGATION 2019 ??? WISDOM TEETH EXTRACTION Medications: Current Outpatient Medications Medication Sig Dispense Refill ??? tgzpywqguz-mbguqbmhhdjst-phdfgame (FIORICET) 50-325-40 MG tablet Take 1 Tablet by mouth every 4 hours as needed for Pain. 10 Tablet 0 ??? cetirizine (ZYRTEC) 10 MG tablet Take 10 mg by mouth daily. ??? hydroCHLOROthiazide (ORETIC) 25 MG tablet Take 1 Tablet by mouth daily. 90 Tablet 3 ??? propranolol (INDERALLA) 80 MG 24 hour release capsule Take 1 Capsule by mouth daily. 90 Capsule 3 ??? sertraline (ZOLOFT) 100 MG tablet Take 1/2 tablet for one week, then increase to 1 tablet daily.90 Tablet 3 ??? SUMAtriptan (IMITREX) 50 MG tablet Take 1 Tablet by mouth as needed for Migraine. May repeat onetablet after 2 hours if needed. Maximum 4 tabs/24 hours and 9 days/month 9 Tablet 2 No current facility-administered medications for this visit. Allergies: Allergies Allergen Reactions ??? Amoxicillin Hives ??? Diphenhydramine Breathing Difficulty and Palpitations Benadryl ??? Macrobid [Nitrofurantoin] Hives ??? Antihistamines, Diphenhydramine-Type Palpitations Social Hx: Social History Socioeconomic History ??? Marital status: Significant Other/Partner Spouse name: Not on file ??? Number of children: 2 ??? Years of education: Not on file ??? Highest education level: Not on file Occupational History ??? 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 Smoking status: Never Smoker ??? Smokeless tobacco: Never Used Vaping Use ??? Vaping Use: Never used Substance and Sexual Activity ??? Alcohol use: Not Currently Alcohol/week: 2.0 standard drinks Types: 2 Cans of beer per week Comment: rare ??? Drug use: No ??? Sexual activity: Yes Partners: Male control/protection: Surgical Other Topics Concern ??? Bike Helmet No ??? City Water Yes ??? Exercise No ??? Guns in home No ??? Seat Belt Yes ??? Special Diet No ??? Weight Concern Yes Social History Narrative ??? Not on file Social Determinants of Health Financial Resource Strain: ??? Difficulty of Paying Living Expenses: Not on file Food Insecurity: ??? Worried About Running Out of Food in the Last Year: Not on file ??? Ran Out of Food in the Last Year: Not on file Transportation Needs: ??? Lack of Transportation (Medical): Not on file ??? Lack of Transportation (Non-Medical): Not on file Physical Activity: ??? Days of Exercise per Week: Not on file ??? Minutes of Exercise per Session: Not on file Intimate Partner Violence: ??? Fear of Current or Ex-Partner: Not on file ??? Emotionally Abused: Not on file ??? Physically Abused: Not on file ??? Sexually Abused: Not on file Housing Stability: ??? Unable to Pay for Housing in the Last Year: Not on file ??? Number of Places Lived in the Last Year: Not on file ??? Unstable Housing in the Last Year: Not on file Family Hx: Family History Problem Relation Age of Onset ??? Spont Abortions Mother ??? Crohn's Disease Mother ??? Heart Disease Mother ??? Stroke Mother ??? Diabetes Father ??? High Cholesterol Father ??? Heart Disease Father ??? Heart Disease Maternal Grandfather ??? Cancer, Breast Paternal Grandmother ??? Thyroid Disorder Cousin Review of Systems Pertinent items are noted in HPI. Objective: Physical Exam: BP 108/77 (BP Location: Right Arm, BP Cuff Size: Large) Pulse 66 Wt 176 lb (79.8 kg) BMI 27.57 kg/m?? General appearance: alert, cooperative, no distress, appears stated age Mild bruises at the medial aspect of the left elbow. Examination of the left wrist shows no obviousdeformity. No swelling redness or bruises. Patient has normal range of motion. Mild tenderness with palpation of the anatomical snuffbox. Mercedes's sign is negative. Neurovascular evaluation is intact. Left elbow has normal range of motion. Assessment: ICD-10-CM 1. Left wrist pain M25.532 XR Wrist Lt 3 Views + Navicular 2. Left arm pain M79.602 Plan: I recommend repeat xray of the left wrist The patient will be notified of results when available. I recommend that she continues with symptomatic cares. Rice therapy discussed. May use a wrist splint during the day and off at night Activities as tolerated. follow-up at the clinic p.r.n. Multiple questions and concerns addressed *This note was created using voice recognition software and may contain some accountant supervisor errors* documented in this encounter Plan of Treatment Not on filedocumented as of this encounter Results XR Wrist Lt 3 [...] Joint spaces appear within normal limits. Ra Bryan [facility] RAD GD documented in this encounter Visit Diagnoses Diagnosis Left wrist pain - Primary Pain in joint, forearm Left arm pain Pain in limb Left wrist pain Pain in joint, forearm documented in this encounter Care Teams Vocal Music Instructor Relationship Specialty Start Date End Date Shannan Matthews DO PCP - General Family Practice 10/13/19 [address] [id number] documented as of this encounter
--- OUTSIDE RECORDS SUMMARY | 2022-04-25 22:29 | XMS_ITS | Encounter Summary ---
:1985 Author [facility] Address [address] [place] [address] Care Team Providers Name Role Phone Shannan Matthews Primary Care Provider Reason for Visit Reason Comments Refill hydroCHLOROthiazide (ORETIC) 25 MG tablet [Pharmacy Med Name: HYDROCHLOROTHIAZIDE 25MG TAB LET] Encounter Details Date Type Department Care Team Description 10/20/2021 Refill gIlesia Silva, Refill ( hydroCHLOROthiazide Medicine WATERFRONT DIRECTOR, INDEX CLERK (ORETIC) 25 MG tablet [address] [place] [Pharmacy Med Name: [place] [address] HYDROCHLOROTH[address]ZIDE 25MG [phone] [address] TABLET]) [id number] Social History Tobacco Use Types Packs/Day Years Used Date Smoking Tobacco: Never Smokeless Tobacco: Never Alcohol Use Standard Drinks/Week Comments Not Currently 2 (1 standard drink = 0.6 oz pure alcoho l) rare Sex Assigned at Date Recorded Not on file documented as of this encounter Nursing Notes Kandace Stone RN - 10/22/2021 4:07 PM CDT Renewed medication per medication refill protocol. Requested Prescriptions Pending Prescriptions Disp Refills ??? hydroCHLOROthiazide (ORETIC) 25 MG tablet [Pharmacy Med Name: HYDROCHLOROTHIAZIDE 25MG TABLET] 90 Tablet 0 Sig: TAKE 1 TABLET BY MOUTH DAILY. Interface, Out Sagoon Prov Query - 10/20/2021 12:27 PM CDT hydroCHLOROthiazide (ORETIC) 25 MG tablet [Pharmacy Med Name: HYDROCHLOROTHIAZIDE 25MG TABLET] Medication started: 06/17/2020 Last ordered by IGLESIA HERRING N: 08/30/2020 (416 days ago) QTY: 90, Refills: 3, Sig: take 1 tablet by mouth daily. (unchanged) -> The most recent order on 08/30/2021. -> An office visit is overdue (performed 14 months ago, required every 12 months). -> Cr, K, and Na are overdue (performed 17 months ago, required every 12 months) Last qualifying visit: 08/30/2020 (with IGLESIA HERRING) (A more recent visit (in Family Practice with RONNA PEREZ) was found) Next scheduled visit: None Cr: 0.7 mg/dL on 06/06/2020 Na: 137 mEq/L on 06/06/2020 K: 3.9 mEq/L on 06/06/2020 [facility] Embedded Refills, Reference: [id number], 10/20/2021 12:27:34 PM CDT, Pool: DEBRA REFILL ([id number]) documented in this encounter Plan of Treatment Not on filedocumented as of this encounter Visit Diagnoses Diagnosis Kidney stone Calculus of kidney documented in this encounter Care Teams Tax Examiner Relationship Specialty Start Date End Date Shannan Matthews DO PCP - General Family Practice 10/13/19 [address] [id number] documented as of this encounter
--- OUTSIDE RECORDS SUMMARY | 2022-04-25 22:29 | XMS_ITS | Encounter Summary ---
:1985 Author Organization [facility] Address [address] [place] [address] Care Team Providers Name Role Phone Shannan Matthews DO Primary Care Provider Reason for Visit Procedure/Equipment (Routine) - Incomplete Specialty Diagnoses / Procedures Referred By Contact Refer red To Contact Diagnoses Left wrist pain Closed nondisplaced fracture of styloid process of left radius with routine healing, subsequent encounter Alvarado Stein MD Procedures XR Wrist Lt 3+ Views [address] [facility] [place] [address] Referral ID Status Reason Start Date Expiration Date Visits V isits Requested Authorized [id number] Incomplete 04/06/2021 07/06/2022 1 1 Encounter Details Date Type Department Care Team Description 04/06/2021 Ancillary Procedure [facility] Alvarado Stein, Left wrist pain [address] [facility] [place] [address] [facility] Bharath Estrada [address] [facility] [place] [phone] (Wo rk) Social History Tobacco Use Types [...] Associated Diagnosis Comme nts XR WRIST LT 3+ Routine 04/06/2021 5:27 PM Left wrist pain Resu lts for this VIEWS FABRIC AND ACCESSORIES ESTIMATOR procedure are i n the results section. documented in this encounter Results XR Wrist Lt 3+ Views (04/06/2021 5:27 PM FABRIC AND ACCESSORIES ESTIMATOR) Anatomical Region Laterality Modality Upper Extremity, Wrist Digital Radiograp hy Specimen (Source) Anatomical Collection Method Collection Time Re ceived Time Location / / Volume Laterality 04/06/2021 5:21 PM FABRIC AND ACCESSORIES ESTIMATOR Impressions 04/06/2021 5:34 PM FABRIC AND ACCESSORIES ESTIMATOR COMPARISON: ??03/11/2021 FINDINGS: ??3 views. No acute osseous ab normality, malalignment, or significant degenerative change. The previously noted subtle lucency in the radial styloid is not evident on today's examination. Procedure Note Andrade Cantor MD - 04/06/2021Forma tting of this note might be different from the original. IMPRESSION COMPARISON: 03/11/2021 FINDINGS: 3 views. No acute osseous abno rmality, malalignment, or significant degenerative change. The previously noted subtle lucency in the radial styloid is not evident on today's examination. Alvarado Stein MD RAD GD documented in this encounter Visit Diagnoses Diagnosis Left wrist pain Pain in joint, forearm documented in this encounter Care Teams Photography Professor Relationship Specialty Start Date End Date Shannan Matthews DO PCP - General Family Practice 10/13/19 [address] [id number] documented as of this encounter
--- OUTSIDE RECORDS SUMMARY | 2022-04-25 22:29 | XMS_ITS | Encounter Summary ---
:1985 Author Organization [facility] Address [address] [place] [address] Care Team Providers Name Role Phone CassieShannan Primary Care Provider Encounter Details Date Type Department Care Team Description 10/07/2021 marianna Monreal [phone] Social History Tobacco Use Types Packs/Day Years Used Date Smoking Tobacco: Never Smokeless Tobacco: Never Alcohol Use Standard Drinks/Week Comments Not Currently 2 (1 standard drink = 0.6 oz pure alcoho l) rare Sex Assigned at Date Recorded Not on file documented as of this encounter Progress Notes FAMILY MEDICINEMARIANNA PROVIDER - 10/07/2021 3:11 PM CDT marianna Treatment Plan Diagnosis Viral Sinusitis Visit Date October 07, 2021 Estefania Mckoen Date of : 85 Provider Berhane Brian, Nurse Practitioner Note From Provider Latisha Mac,Thank you for using [facility] for your care today. Let?? get you feeling better! Based on your current symptoms, you have a viral sinus infection. The good news is that you caught it early, so an antibiotic is not needed at this time. Let?? focus on decreasing inflammation and thinning out the mucus so you can feel better. Ibuprofen (iuse sparingly with your kidney disease) and Mucinex, along with a nasal saline spray every 3-4 hours will help reduce your symptoms. I also sent a steroid nasal spray to your pharmacy to help with symptoms. Make sure to read your treatment plan below for additional instructions and be sure to watch the video, too! A typical viral illness lasts about 7-10 days. I do recommend rechecking for COVID as well as your symptoms are reflective of symptoms thatCovid is causing as well right now. If your symptoms don?? start to improve, please select Help in your treatment plan to Request a Callback and we??l re-evaluate your symptoms. Feel better soon! - MARYLOU Last Treatment Plan Let?? get you feeling better by using a prescription nasal steroid and an effective blend of hjmr-fxl-[id number] products to kick this viral infection. We??l work to reduce your pain and inflammation, help drain that irritating mucus and prevent this from worsening. Because this infection is caused by a virus, an antibiotic won?? be effective at helping your pain or treating the virus. I sent your nasalsteroid prescription to [facility]. This medication is also available plbb-[id number], so you may want to check with your pharmacy to see which option is more cost-friendly. If your symptoms don?? improve after 5 days, or if you have questions, select Help to Request a Call Back and we??l adjust your treatment for free. Order(s) fluticasone propionate 50 mcg/actuation spray,suspension Reubens 2 spray into both nostrils once a day as directed for 30 days Note: Refills: 2 Sent To: [facility] [address] [place], [place] [id number] Treatment Plan Self Care Tip Topics Pain Relief with Acetaminophen Irrigate Your Sinuses Relieve Facial Pressure with Nasal Steroids Warm Packs What to Expect Let?? work to help you feel better by reducing your sinus congestion, pain and pressure. Keep in mind, it takes time for your body to fight off a viral sinus infection and you may feel worse before youstart feeling better. Your symptoms should start to improve within 5 days from when you first noticed them. If your symptoms don?? begin to improve within this timeframe, select Help in your treatment plan to Request a Callback and we??l adjust your treatment for free. What to Watch Out For Give us a call immediately if you experience: ??? Vision changes ??? Redness occurring in the face ??? Worsening pain ??? High fevers My Conditions, Orders, Allergies as of October 07, 2021 Standard condition list Kidney Disease (kidney failure, polycystic kidney disease, chronic nephritis) High Blood Pressure (Hypertension) Current orders fluticasone propionate (fluticasone propionate) sertraline (sertraline) Allergies Benadryl Allergy (diphenhydramine HCl), oral amoxicillin (amoxicillin), oral Coordi-Care's Information [employer] [facility] by [employer] We are an online clinic open 13/12. If you have any questions or comments about this visit, please call or email [email or web address]. documented in this encounter Plan of Treatment Not on filedocumented as of this encounter Visit Diagnoses Not on filedocumented in this encounter Care Teams Benzene Worker Relationship Specialty Start Date End Date Shannan Matthews DO PCP - General Family Practice 10/13/19 [address] [id number] documented as of this encounter
--- OUTSIDE RECORDS SUMMARY | 2022-04-25 22:29 | XMS_ITS | Encounter Summary ---
:1985 Author Organization [employer] Address [address] [place] [address] Care Team Providers Name Role Phone Shannan Matthews Primary Care Provider Encounter Details Date Type Department Care Team Description 09/17/2020 Lab Visit [facility] Fatigue, unspecified type; [address] Family history of thyroid di [place] [id number] Social History Tobacco Use Types Packs/Day Years Used Date Smoking Tobacco: Never Smokeless Tobacco: Never Alcohol Use Standard Drinks/Week Comments Not Currently 2 (1 standard drink = 0.6 oz pure alcoho l) rare Sex Assigned at Date Recorded Not on file documented as of this encounter Progress Notes Janie Cottrell PA-C - 09/17/2020 4:10 PM CDT Hi Estefania- Your thyroid test was normal. Have a great day. Janie Cottrell PA-C documented in this encounter Plan of Treatment Not on filedocumented as of this encounter Procedures Procedure Name Priority Date/Time Associated Diagnosis Comme nts TSH, SENSITIVE Routine 09/17/2020 4:02 PM Fatigue, unspecified Results for this (WITH REFLEX) CDT type procedure are in Family history of the result s thyroid disease section. documented in this encounter Results TSH with Free T4 (if TSH Abnormal) (09/17/2020 4:02 PM CDT) P athologist Signature TSH, Reflex 1.21 0.30 - 4.50 09/17/2020 [facility] uIU/mL 10:23 PM CDT LABORATORY Specimen Anatomical Collection Method / Collection Time Recei doc Time (Source) Location / Volume Laterality Blood Venipuncture / 09/17/2020 4:02 09/17/2020 4:02 Unknown PM CDT PM CDT Narrative [facility] - 09/17/2020 10:23 PM CDT Lab will automatically reflex to Free T4 when TSH results are outside of reference range for patient's age group. Janie Cottrell PA-C LAB_1 Performing Organization Address City/State/ZIP Code Phon e Number [facility] [address] [place] [address] documented in this encounter Visit Diagnoses Diagnosis Fatigue, unspecified type Family history of thyroid disease Family history of other endocrine and me tabolic diseases documented in this encounter Care Teams Home Care Physical Therapist Relationship Specialty Start Date End Date Shannan Matthews DO PCP - General Family Practice 10/13/19 [address] [id number] documented as of this encounter
--- OUTSIDE RECORDS SUMMARY | 2022-04-25 22:29 | XMS_ITS | Encounter Summary ---
:1985 Author Organization [facility] Address [address] [place] [address] Care Team Providers Name Role Phone Shannan Matthews DO Primary Care Provider Reason for Visit Reason Comments INJURY, ARM (l) not new message 03/16/21 ARM PAIN Encounter Details Date Type Department Care Team Description 03/16/2021 Nurse Triage Shannan Gu, INJURY, ARM ((l) not Medicine DO new message 03/16/21); [address] [place] [address] [address] [phone] [place] [phone] Social History Tobacco Use Types Packs/Day Years Used Date Smoking Tobacco: Never Smokeless Tobacco: Never Alcohol Use Standard Drinks/Week Comments Not Currently 2 (1 standard drink = 0.6 oz pure alcoho l) rare Sex Assigned at Date Recorded Not on file documented as of this encounter Nursing Notes Janeen Kaiser RN - 03/16/2021 2:22 PM CDT Spoke with patient regarding concerns for left arm injury from 02/25/21, patient fell out of her camper. Patient was seen in [facility] on 02/28/21 and given arm sling. Patient was seen 03/11/21 and instructed to use left wrist brace. Patient noted since using brace, good for immobilization but continues to have intermittent sharp left forearm and left elbow pain. Patient offered MRI or just brace use. Patient states today while picking up her coffee cup increased pain to 7-8/10. Patient states she is worst than 03/11/21. Using left arm with full range of motion causes pain to increase. Denies any increase in swelling. Advised per protocol evaluation and reasons to call back. Problem list reviewed as related to this call. Reason for Disposition ??? Can't move injured arm normally (bend or straighten completely) Protocols used: ARM [id number] Maylin Brock - 03/16/2021 2:08 PM CDT Symptoms Describe your symptoms (if pain, include location): Arm injury/pain When did they start? first week of February Additional comments (related to the above concern): Pt calling and would like to speak with nurse to discuss symptom pt sent a message through my chart explaning When pt was in 03/11/21 doctor advised pt to get an MRI if the brace did not seem to be working pt advised still having pain. Please advise.Transferred If a prescription is needed, patient would like it filled at the pharmacy listed in Meds & Orders. (Verify the pharmacy patient would like to use for this request is highlighted in blue in PharmacySelection under Meds & Orders) Is it okay to leave a detailed message on your voicemail? Yes (Advise caller that the PN call back number will end with [phone] or unknown) For urgent symptoms: Please route and transfer to: Triage Pool (high priority) For routine symptoms: Please route to: Triage Pool (only transfer if caller insists) documented in this encounter Plan of Treatment Not on filedocumented as of this encounter Visit Diagnoses Not on filedocumented in this encounter Care Teams Power Press Supervisor Relationship Specialty Start Date End Date Shannan Matthews DO PCP - General Family Practice 10/13/19 [address] [id number] documented as of this encounter
--- OUTSIDE RECORDS SUMMARY | 2022-04-25 22:29 | XMS_ITS | Encounter Summary ---
:1985 Author Organization [employer] Address [address] [place] [address] Care Team Providers Name Role Phone Shannan Matthews Primary Care Provider Reason for Visit Reason Comments Refill hydroCHLOROthiazide (ORETIC) 25 MG tablet [Pharmacy Med Name: HYDROCHLOROTHIAZIDE 25MG TAB LET] Encounter Details Date Type Department Care Team Description 02/10/2022 Refill Iglesia Silva, Refill ( hydroCHLOROthiazide Medicine MANAGEMENT NURSE RN, FOOD SUPERVISOR (ORETIC) 25 MG tablet [address] [facility] [Ph[place]acy Med [place] [address] [address] HYDROCHLOROTHIAZIDE 25MG [phone] [place] TABLET]) [id number] Social History Tobacco Use Types Packs/Day Years Used Date Smoking Tobacco: Never Smokeless Tobacco: Never Alcohol Use Standard Drinks/Week Comments Not Currently 2 (1 standard drink = 0.6 oz pure alcoho l) rare Sex Assigned at Date Recorded Not on file documented as of this encounter Nursing Notes Aleksey Palm RN - 02/13/2022 4:28 PM CDT Further Assistance Needed on Refill from Clinician RN reviewed. Patient overdue for Lab(s). -> An office visit is overdue (performed 18 months ago, required every 12 months). -> Na is overdue (performed over 20 months ago, required every 12 months) Last qualifying visit: 12/14/2021 with KAVON KING (pre op) Next scheduled visit: None Review pended order for accuracy. Sign if appropriate. Document if appointment is needed for furtherrefills. Route to care team to notify patient if needed. Requested Prescriptions Pending Prescriptions Disp Refills hydroCHLOROthiazide (ORETIC) 25 MG tablet [Pharmacy Med Name: HYDROCHLOROTHIAZIDE 25MG TABLET] 90 Tablet 0 Sig: TAKE 1 TABLET BY MOUTH DAILY. Interface, Out Surescripts Prov Query - 02/10/2022 12:37 PM CDT hydroCHLOROthiazide (ORETIC) 25 MG tablet [Pharmacy Med Name: HYDROCHLOROTHIAZIDE 25MG TABLET] Medication started: 06/17/2020 Last ordered by IGLESIA HERRING N: 10/22/2021 (111 days ago) QTY: 90, Refills: 0, Sig: take 1 tablet by mouth daily. (unchanged) -> An office visit is overdue (performed 18 months ago, required every 12 months). -> Na is overdue (performed over 20 months ago, required every 12 months) Last qualifying visit: 08/30/2020 (with IGLESIA HERRING) (A more recent visit (in Family Practice with KAVON KING) was found) Next scheduled visit: None Cr: 0.8 mg/dL on 12/14/2021 Na: 137 mEq/L on 06/06/2020 K: 4 mEq/L on 12/14/2021 [employer] Embedded Refills, Reference: [id number], 02/10/2022 12:37:49 PM CDT, Pool: DEBRA REFILL ([id number]) Interface, Out Etreasurebox Prov Query - 02/10/2022 12:37 PM CDT The following lab order(s) may be associated with the following Patient Result Comment (Entered by Kavon King MD at 12/14/2021 3:32 PM): CREATININE / GFR Kidney function is normal. Interface, Out BioW[employer] Query - 02/10/2022 12:37 PM CDT The following lab order(s) may be associated with the following Patient Result Comment (Entered by Kavon King MD at 12/14/2021 3:32 PM): POTASSIUM Potassium is normal. documented in this encounter Plan of Treatment Not on filedocumented as of this encounter Visit Diagnoses Diagnosis Kidney stone Calculus of kidney documented in this encounter Care Teams Software Designer Relationship Specialty Start Date End Date Shannan Matthews DO PCP - General Family Practice 10/13/19 [address] [id number] documented as of this encounter
--- OUTSIDE RECORDS SUMMARY | 2022-04-25 22:29 | XMS_ITS | Encounter Summary ---
:1985 Author Organization [employer] Address [address] [address] Care Team Providers Name Role Phone Shannan Matthews DO Primary Care Provider Encounter Details Date Type Department Care Team Description 11/04/2020 Office Visit Payton Alvares [facility] - (Primary Dx) Urology [address] [place] [phone] (Wo rk) Social History Tobacco Use Types Packs/Day Years Used Date Smoking Tobacco: Never Smokeless Tobacco: Never Alcohol Use Standard Drinks/Week Comments Not Currently 2 (1 standard drink = 0.6 oz pure alcoho l) rare Sex Assigned at Date Recorded Not on file documented as of this encounter Progress Notes Payton Mejia MD - 11/04/2020 12:00 AM CDT NAME: ESTEFANIA MCKEON [facility]: [phone] CLINIC NOTE DATE OF SERVICE: 11/04/2020 : 1985 Please see my prior note for full details. Patient is here to go over the renal scan. She notes thatshe has been overall feeling better. Sometimes, the stent is annoying, but she does not have that pressure sensation. She feels like she has had more energy overall and been able to take care of her children better. Patient notes that she continues to have some pain, but if she takes a Tylenol, she can make it through. The renal scan was reviewed. I reviewed the images myself. It looks about the same. The upper pole of the right kidney just does not drain very well. There is no significant improvement with the stent. PROCEDURE: The 18-Chinese cystoscope was placed in the patient's urethra and then into the bladder. The stent was visualized, grasped, and removed. Patient tolerated the procedure well. ASSESSMENT: History of hydronephrosis, continued symptoms of pain and pressure in the right upper flank, history of kidney stones, and staghorn kidney stone. PLAN: Symptom check in 3 weeks. Total visit time today was 20 minutes. Time was spent reviewing the patient's imaging, talking with the patient, and documentation. MD ANNA MELENDREZ/LUIZS /[id number] documented in this encounter Plan of Treatment Not on filedocumented as of this encounter Visit Diagnoses Diagnosis Right kidney stone - Primary Calculus of kidney documented in this encounter Care Teams Industrial Trainer Relationship Specialty Start Date End Date Shannan Matthews DO PCP - General Family Practice 10/13/19 [address] [place] [address] [place] [id number] documented as of this encounter
--- OUTSIDE RECORDS SUMMARY | 2022-04-25 22:29 | XMS_ITS | Encounter Summary ---
:1985 Author Organization [facility] Address [address] [place] [address] Care Team Providers Name Role Phone Shannan Matthews DO Primary Care Provider Reason for Visit Reason Comments Refill sertraline (ZOLOFT) 100 MG t ablet [Pharmacy Med Name: SERTRALINE HYDROCHLORIDE 100MG TABLET] Encounter Details Date Type Department Care Team Description 04/17/2022 Refill [facility]ia Pope [place], Andreina Mena (sertraline Medicine (ZOLOFT) 100 MG tablet [facility] [address] [facility] [Pharmacy Med Name: [place] [address] [place] [address] SERTRALINE HYDROCHLORIDE [phone] (Wo rk) 100MG TABLET]) Social History Tobacco Use Types Packs/Day Years Used Date Smoking Tobacco: Never Smokeless Tobacco: Never Alcohol Use Standard Drinks/Week Comments Not Currently 2 (1 standard drink = 0.6 oz pure alcoho l) rare Sex Assigned at Date Recorded Not on file documented as of this encounter Nursing Notes Ceci Lowery RN - 04/23/2022 8:47 PM CST Further Assistance Needed on Refill from Data Coordinator Patient is due for Qualifying Visit Medication is still pending. Patient is due for an Office/Video Visit in the next 30 days.. Call Patient and document using .BALTAZAR. After attempting to schedule patient: Please route to: Shannan Matthews DO Requested Prescriptions Pending Prescriptions Disp Refills sertraline (ZOLOFT) 100 MG tablet [Pharmacy Med Name: SERTRALINE HYDROCHLORIDE 100MG TABLET] 30 Tablet Sig: TAKE 1/2 TABLET FOR ONE WEEK, THEN INCREASE TO 1 TABLET DAILY. SLASHER documented in this encounter Plan of Treatment Not on filedocumented as of this encounter Visit Diagnoses Not on filedocumented in this encounter Care Teams Clinical Data Assistant Relationship Specialty Start Date End Date Shannan Matthews DO PCP - General Family Practice 10/13/19 [address] [place] [id number] documented as of this encounter
--- OUTSIDE RECORDS SUMMARY | 2022-04-25 22:29 | XMS_ITS | Encounter Summary ---
:1985 Author Organization [facility] Address [address] [place] [address] Care Team Providers Name Role Phone Shannan Kemp DO Primary Care Provider Reason for Visit Reason Comments Refill sertraline (ZOLOFT) 100 MG t ablet [Pharmacy Med Name: SERTRALINE HYDROCHLORIDE 100MG TABLET] Encounter Details Date Type Department Care Team Description 07/30/2021 Refill Shannan Gu DO Refill (sertraline Medicine [address] [place] (ZOLOFT) 100 MG tablet [address] [Pharmacy Med Name: [place] [address] [address] [place] [address] SERTRALINE HYDROCHLORIDE [phone] (Wo rk) 100MG TABLET]) Social History Tobacco Use Types Packs/Day Years Used Date Smoking Tobacco: Never Smokeless Tobacco: Never Alcohol Use Standard Drinks/Week Comments Not Currently 2 (1 standard drink = 0.6 oz pure alcoho l) rare Sex Assigned at Date Recorded Not on file documented as of this encounter Nursing Notes Nelda Aguilar RN - 08/03/2021 10:48 AM CDT 90 day supply given per Emergency Refill Standing Order. Interface, Out Surescripts Prov Query - 07/30/2021 11:50 AM CST sertraline (ZOLOFT) 100 MG tablet [Pharmacy Med Name: SERTRALINE HYDROCHLORIDE 100MG TABLET] Medication started: 03/08/2019 Last ordered by SHANNAN KEMP: 06/06/2020 (419 days ago) QTY: 90, Refills: 3, Sig: take 1/2 tabletfor one week, then increase to 1 tablet daily. (unchanged) -> An office visit is overdue (performed 14 months ago, required every 12 months). Last qualifying visit: 06/06/2020 (with SHANNAN KEMP) (A more recent visit (in Family Practice with RONNA PEREZ) was found) Next scheduled visit: None Age: 36 Powered by [employer]ch by [employer], Reference: [id number], 07/30/2021 11:50:21 AM CONVEYOR SYSTEM OPERATOR, Pool: DEBRA AGUILLON ([id number]) documented in this encounter Plan of Treatment Not on filedocumented as of this encounter Visit Diagnoses Not on filedocumented in this encounter Care Teams Edge Stitcher Relationship Specialty Start Date End Date Shannan Kemp DO PCP - General Family Practice 10/13/19 [address] [id number] documented as of this encounter
--- OUTSIDE RECORDS SUMMARY | 2022-04-25 22:29 | XMS_ITS | Encounter Summary ---
:1985 Author Organization [facility] Address [address] [place] [address] Care Team Providers Name Role Phone Shannan Matthews Primary Care Provider Reason for Referral Therapies (Routine) - Closed Specialty Diagnoses / Procedures Referred By Contact Refer red To Contact Diagnoses Left wrist pain Closed nondisplaced fracture of styloid process of left radius with routine healing, subsequent encounter Alvarado Stein MD [address] [facility] [place] [address] Referral ID Status Reason Start Date Expiration Date Visits Requ ested Visits Authorized [id number] Closed 04/06/2021 04/06/2022 1 1 Scheduling Instructions Your provider has recommended an appoint ment with [facility]. You may call [phone] to schedule your appoi ntment. We suggest you call your health insurance company about your coverage an d benefits for this appointment. OF IT Procedure/Equipment (Routine) - Incomplete Specialty Diagnoses / Procedures Referred By Contact Refer red To Contact Diagnoses Left wrist pain Closed nondisplaced fracture of styloid process of left radius with routine healing, subsequent encounter Alvarado Stein MD Procedures XR Wrist Lt 3+ Views [address] [facility] [place] [address] 1 Referral ID Status Reason Start Date Expiration Date Visits V isits Requested Authorized [id number] Incomplete 04/06/2021 07/06/2022 1 1 OF IT Reason for Visit Reason Comments Follow-up left wrist Encounter Details Date Type Department Care Team Description 04/06/2021 Office Visit Alvarado Dempsey, Closed nondisplaced fracture of styloid process of left radius with routine healing, subsequent encounter (Primary Dx); Urgent Care Left wrist pain [address], [place] [phone] (Wo rk) Social History Tobacco Use Types [...] Pressure - - Pulse - - Temperature 36.6 ??C (97.9 ??F) 04/06/2021 5:22 PM HEAD OF IT Respiratory Rate - - Oxygen Saturation - - Inhaled Oxygen Concentration - - Weight - - Height - - Body Mass Index - - documented in this encounter Patient Instructions Patient InstructionsGuerrero Mayes, ATC - 04/06/2021 5:[address] Alvarado Stein MD Sports & Orthopaedic Medicine [facility] [place] [facility] Nurse Line: [phone] Please contact Orthopedic Urgent Care line for all requests and questions. Medication Requests: Prescriptions are not filled on Weekends or on Weekdays after 3:00PM For all medication refills: Request a refill using MyChart or contact your Pharmacy To schedule appointments: [phone] Paperwork Requests: FMLA or disability paperwork can be faxed to: [phone] Medical records: [phone] (option 4) [employer] E-mail Address: [email or web address] Diagnosis: Left distal radial styloid non-displaced fracture Plan: An order for Hand Therapy was placed Avoid activities that cause pain Ice: Place ice bags over the injured area. You can also use a bag of frozen vegetables or other commercial products. To avoid tissue injury from the cold ice bag, place a cold wet wash cloth or towel between the ice bag and the skin. It is recommended that ice be applied several times a day for up to 20 minutes at a time. Allow a minimum of one hour between ice sessions. OF IT documented in this encounter Progress Notes Alvarado Stein MD - 04/06/2021 12:00 AM CST NAME: ESTEFANIA MCKEON CSN: [id number] CLINIC NOTE DATE OF SERVICE: 04/06/2021 : 1985 SUBJECTIVE: This is a 35-year-old right-hand dominant female, who returns for a left distal radial styloid fracture, which initially occurred on 02/25. She was last seen on 03/16. She has been in the cast. She is here for cast removal and re-x-ray. REVIEW OF SYSTEMS: No fevers, chills, numbness, tingling. No joint pain or swelling in other joints. CURRENT MEDICATIONS: Reviewed on EMR. ALLERGIES: REVIEWED ON EMR. PHYSICAL EXAM: Temperature is 97.9. Pain 4/10. GENERAL: She is alert and pleasant. In no acute distress. Inspection of her left wrist, there is skin dryness where the cast had been in place, but no skin breakdown. Patient has tenderness over the radial styloid. Range of motion is limited, secondary to pain. Sensation is intact. Radiology review: X-rays, 3 views of the left wrist compared to 03/11, are read as no acute osseous abnormality, malalignment, or significant degenerative change. The previously noted subtle lucency atthe radial styloid is not evident on today's examination. This was read by Andarde Cantor MD. On my view, there is still is a subtle lucency within the radial styloid with no displacement. ASSESSMENT: Left wrist injury, secondary to a fall on 02/25, 5 weeks ago, consistent with a nondisplaced radial styloid fracture, remaining symptomatic despite activity modification and immobilization. PLAN: I reviewed the x-ray findings and diagnosis with the patient. I suggested transitioning from her short-arm cast to an Exos splint placed in wrist therapy, which will be DME only for the next 3 weeks or so. If she is able to wean from the Exos over the next 3 weeks, there is no need for followup.If she has persistent symptoms despite the Exos, she will return for a recheck and re-x-ray 3 views of the left wrist to check for callus or fracture line. MD FREIDA GALANW/PARRIS /[id number] OF IT documented in this encounter Plan of Treatment Scheduled Referrals Name Type Priority Associated Diagnoses Order S [facility] Hand Therapy Consult Referral Routine Left wrist pain Ordered: 04/06/2021 Closed nondisplaced fracture of styloid process of left radius with routine healing, subsequent encounter documented as of this encounter Results XR Wrist Lt 3+ Views (04/06/2021 5:27 PM HEAD OF IT) Anatomical Region Laterality Modality Upper Extremity, Wrist Digital Radiograp hy Specimen (Source) Anatomical Collection Method Collection Time Re ceived Time Location / / Volume Laterality 04/06/2021 5:21 PM HEAD OF IT Impressions 04/06/2021 5:34 PM HEAD OF IT COMPARISON: ??03/11/2021 FINDINGS: ??3 views. No acute [...] documented in this encounter Visit Diagnoses Diagnosis Closed nondisplaced fracture of styloid process of left radius with routine healing, subsequent encounter - Primary Left wrist pain Pain in joint, forearm Left wrist pain Pain in joint, forearm documented in this encounter Care Teams Electrician Relationship Specialty Start Date End Date Shannan Matthews DO PCP - General Family Practice 10/13/19 [address] [place] [address] documented as of this encounter
--- OUTSIDE RECORDS SUMMARY | 2022-04-25 22:29 | XMS_ITS | Encounter Summary ---
:1985 Author Organization [facility] Address [address] [place] [address] Care Team Providers Name Role Phone Shannan Matthews Jose VALDIVIA Primary Care Provider Encounter Details Date Type Department Care Team Description 12/14/2021 Lab Visit [facility] Preoperative examination [address] [place] [address] Social History Tobacco Use Types Packs/Day Years [...] Name Priority Date/Time Associated Diagnosis Comme nts CREATININE / GFR Routine 12/14/2021 10:24 Preoperative Results for this AM CDT examination procedure are i n the results section. COMPLETE BLOOD Routine 12/14/2021 10:24 Preoperative Results f or this COUNT-NO DIFF AM CDT examination procedure are in the results section. POTASSIUM Routine 12/14/2021 10:24 Preoperative Results for this AM CDT examination procedure are i n the results section. documented in this encounter Results Potassium (12/14/2021 10:24 AM CDT) P athologist Signature Potassium 4.0 3.5 - 5.1 12/14/2021 [place] mmol/L 3:22 PM CDT LABORATORY Specimen Anatomical Collection Method / Collection Time Recei doc Time (Source) Location / Volume Laterality Blood Venipuncture / 12/14/2021 10:24 2 Unknown AM CDT 10:24 AM CDT Natanael Gonzalez MD LAB_1 Performing Organization Address [facility]/ZIP Code Phon e Number [facility] [id number] [place] [address] Creatinine / GFR (12/14/2021 10:24 AM CDT) athologist Signature Creatinine 0.80 0.55 - 12/14/2021 [place] 1.02 mg/dL 3:22 PM CDT LABORATORY GFR, Estimated >60 >60 12/14/2021 [place] mL/min/1.7 3:22 PM CDT LABORATORY 3m2 Specimen Anatomical Collection Method / Collection Time Recei doc Time (Source) Location / Volume Laterality Blood Venipuncture / 12/14/2021 10:24 2 Unknown AM CDT 10:24 AM CDT Natanael Gonzalez MD LAB_1 Performing Organization Address [facility] Code Phon e Number [facility] [id number] [place] [address] Complete Blood Count-No Diff (12/14/2021 10:24 AM CDT) athologist Signature WBC 7.9 3.5 - 10.5 12/14/2021 [place] x10(9)/L 10:28 AM CDT LABORATORY RBC 4.62 3.90 - 5.03 12/14/2021 [place] x10(12)/L 10:28 AM CDT LABORATORY Hemoglobin 14.1 12.0 - 15.5 12/14/2021 [place] g/dL 10:28 AM CDT LABORATORY HCT 42.2 34.9 - 44.5 12/14/2021 [place] % 10:28 AM CDT LABORATORY MCV 91.3 80.0 - 12/14/2021 [place] 100.0 fL 10:28 AM CDT LABORATORY MCH 30.5 27.6 - 33.3 12/14/2021 [place] pg 10:28 AM CDT LABORATORY MCHC 33.4 31.5 - 35.2 12/14/2021 [place] g/dL 10:28 AM CDT LABORATORY RDW 13.0 11.9 - 15.5 12/14/2021 [place] % 10:28 AM CDT LABORATORY Platelets 213 150 - 450 12/14/2021 [place] x10(9)/L 10:28 AM CDT LABORATORY Specimen Anatomical Collection Method / Collection Time Recei doc Time (Source) Location / Volume Laterality Blood Venipuncture / 12/14/2021 10:24 2 Unknown AM CDT 10:24 AM CDT Natanael Gonzalez MD LAB_1 Performing Organization Address City/State/ZIP Code Phon e Number [facility] [address] [facility] [place] [address] documented in this encounter Visit Diagnoses Diagnosis Preoperative examination Preoperative examination, unspecified documented in this encounter Care Teams Dean [employer] Relationship Specialty Start Date End Date Shannan Matthews DO PCP - General Family Practice 10/13/19 [address] [place] [address] documented as of this encounter
--- OUTSIDE RECORDS SUMMARY | 2022-04-25 22:29 | XMS_ITS | Encounter Summary ---
:1985 Author Organization [facility] Address [address], [place] [address] Care Team Providers Name Role Phone Shannan Matthews DO Primary Care Provider Encounter Details Date Type Department Care Team Description 12/15/2021 Notes/Orders [facility] Natanael Gonzalez MD [address] [facility] . [address] [facility] [place] [address] [place] [address] [phone] (Wo rk) Social History Tobacco Use Types Packs/Day Years Used Date Smoking Tobacco: Never Smokeless Tobacco: Never Alcohol Use Standard Drinks/Week Comments Not Currently 2 (1 standard drink = 0.6 oz pure alcoho l) rare Sex Assigned at Date Recorded Not on file documented as of this encounter Progress Notes Naren Talbot MA - 12/15/2021 10:57 AM CDT H&P faxed to [facility] at [phone]. documented in this encounter Plan of Treatment Not on filedocumented as of this encounter Visit Diagnoses Not on filedocumented in this encounter Care Teams Wax Machine Operator Relationship Specialty Start Date End Date Shannan Matthews DO PCP - General Family Practice 10/13/19 [address] [facility] [place] [address] documented as of this encounter
--- OUTSIDE RECORDS SUMMARY | 2022-04-25 22:30 | XMS_ITS | Encounter Summary ---
:1985 Author Organization [facility] Address [address] [place] [address] Care Team Providers Name Role Phone Shannan Matthews DO Primary Care Provider Reason for Visit Reason Onset Date Comments MEDICATION CHECK Video Visit 06/06/2020 Encounter Details Date Type Department Care Team Description 06/06/2020 Telemedicine Shannan Gu Generali zed edema (Primary Dx); Medicine DO Urinary frequency; [address] [place] Recurrent kidney stones; [place] [address] Recurrent major depressive disorder, rem ission status unspecified ([facility]) [phone] [place] [phone] Social History Tobacco Use Types Packs/Day Years Used Date Smoking Tobacco: Never Smokeless Tobacco: Never Alcohol Use Standard Drinks/Week Comments Not Currently 0 (1 standard drink = 0.6 oz pure alcoho l) 2/week Sex Assigned at Date Recorded Not on file documented as of this encounter Last Filed Vital Signs Vital Sign Reading Time Taken Comments Blood Pressure - - Pulse - - Temperature 37 ??C (98.6 ??F) 06/06/2020 9:37 AM FISH CULTURIST Respiratory Rate - - Oxygen Saturation - - Inhaled Oxygen Concentration - - Weight 72.6 kg (160 lb) 06/06/2020 9:37 AM FISH CULTURIST Height 172.7 cm (5' 8) 06/06/2020 9:37 AM FISH CULTURIST Body Mass Index 24.33 06/06/2020 9:37 AM FISH CULTURIST documented in this encounter Progress Notes Shannan Matthews DO - 06/06/2020 11:00 AM CST Subjective Chief Complaint Patient presents with ??? MEDICATION CHECK Estefania Mckeon is a 35 y.o. female who presents for multiple concerns. 1. Kidney stones, UTI/pyelonephritis -patient is following with urology for recurrent kidney stones and pyelonephritis. Patient is worried she may have a UTI now because she has noticed increased urine odor. States it is hard for her to notice increased frequency and dysuria since she has some of that at baseline still. She woke up this morning with generalized puffiness. Was not able to wear her wedding ring because of this. Notes lasttime this happened was when she was in the hospital so she is worried her kidneys might not be functioning well. Has been urinating. No SOB. 2. Depression -sertraline 50mg daily. Feels like her dose should be increased, mood is still sometimes down. Denies any side effects. Has been out for the past week, has noticed some headaches when she ran out. ROS: see above Objective Temp 98.6 ??F (37 ??C) (Oral) Ht 5' 8 (1.727 m) Wt 160 lb (72.6 kg) BMI 24.33 kg/m?? General: Alert, pleasant, NAD HEENT: Normocephalic. Sclera and conjunctiva normal. Mucous membranes moist. Respiratory: Normal respiratory effort. Neurological: No gross focal deficits. Psych: Affect is normal, patient is appropriate, grooming is appropriate. Assessment and Plan Generalized edema - Basic Metabolic Panel; Future Urinary frequency - Urinalysis Routine, Micro/Culture if Pos; Future Recurrent kidney stones Recurrent major depressive disorder, remission status unspecified ([facility]) -patient to come in today at 4:30pm for a UA. Will check a BMP given puffiness today. If generalizededema continues or worsens, will pursue a more thorough work up for this. No other symptoms to suggest heart failure, cirrhosis or nephrotic syndrome. -increase sertraline to 100mg daily. F/u in 1 month for mental health. DO Virginia Jones [facility] CULTURIST documented in this encounter Plan of Treatment Not on filedocumented as of this encounter Results Basic Metabolic Panel (06/06/2020 4:36 PM FISH CULTURIST) P athologist Signature Sodium 137 136 - 145 06/06/2020 [place] mmol/L 8:38 PM FISH CULTURIST LABORATORY Potassium 3.9 3.5 - 5.1 06/06/2020 [place] mmol/L 8:38 PM FISH CULTURIST LABORATORY Chloride 104 98 - 109 06/06/2020 [place] mmol/L 8:38 PM FISH CULTURIST LABORATORY CO2 22 20 - 29 06/06/2020 [place] mmol/L 8:38 PM FISH CULTURIST LABORATORY Anion Gap 11 7 - 16 06/06/2020 [place] mmol/L 8:38 PM FISH CULTURIST LABORATORY Calcium 9.6 8.4 - 10.4 06/06/2020 [place] mg/dL 8:38 PM FISH CULTURIST LABORATORY BUN 13 7 - 26 06/06/2020 [place] mg/dL 8:38 PM FISH CULTURIST LABORATORY Creatinine 0.70 0.55 - 06/06/2020 [place] 1.02 mg/dL 8:38 PM FISH CULTURIST LABORATORY GFR, Estimated >60 >60 06/06/2020 [place] mL/min/1.7 8:38 PM FISH CULTURIST LABORATORY 3m2 Glucose 80 70 - 100 06/06/2020 [place] mg/dL 8:38 PM FISH CULTURIST LABORATORY Comment: The given reference range is fo r the fasting state. Non-fasting reference range for glucose is 70 - 180 mg/dL. Hours Fasting 4 06/06/2020 8:38 PM FISH CULTURIST [facility] LABORATORY Specimen Anatomical Collection Method / Collection Time Recei doc Time (Source) Location / Volume Laterality Blood Venipuncture / 06/06/2020 4:36 06/06/2020 4:36 Unknown PM FISH CULTURIST PM FISH CULTURIST Shannan Matthews DO LAB_1 Performing Organization Address City/State/ZIP Code Phon e Number [facility] [address] [place] [address] [facility] [address] [place] [phone], [facility] (ABNORMAL) Urinalysis Routine, Micro/Culture if Pos (06/06/2020 4:36 PM FISH CULTURIST) [facility] Method Time Signature Urine Culture Urinalysis 06/06/2020 [facility] Comment results do not 5:33 PM FISH CULTURIST LABORATORY meet criteria for urine culture reflex. Urine Color Straw Straw-Yello 06/06/2020 [facility] w 5:33 PM FISH CULTURIST LABORATORY Urine Clarity Clear Clear 06/06/2020 [facility] [place] 5:33 PM FISH CULTURIST LABORATORY Specific 1.020 1.005 - 06/06/2020 [facility] [place], 1.030 5:33 PM FISH CULTURIST LABORATORY Urine PH Urine 6.0 5.0 - 8.0 06/06/2020 [facility] [place] 5:33 PM FISH CULTURIST LABORATORY Protein, Negative Neg/Trace 06/06/2020 [facility] Urine Qual 5:33 PM FISH CULTURIST LABORATORY (mg/dL) Glucose Urine Negative Negative 06/06/2020 [facility] Qual (mg/dL) 5:33 PM FISH CULTURIST LABORATORY Ketones, Negative Negative 06/06/2020 [facility] Urine (mg/dL) 5:33 PM FISH CULTURIST LABORATORY Urobilinogen, 0.2 <2.0 06/06/2020 [facility] Urine (EU/dL) 5:33 PM FISH CULTURIST LABORATORY Bilirubin Negative Negative 06/06/2020 [facility] Urine 5:33 PM FISH CULTURIST LABORATORY Blood, Urine Moderate (A) Neg/Trace 06/06/2020 [facility] 5:33 PM FISH CULTURIST LABORATORY Nitrite Urine Negative Negative 06/06/2020 [facility] [place] 5:33 PM FISH CULTURIST LABORATORY Leukocyte Negative Negative 06/06/2020 [facility] Est. 5:33 PM FISH CULTURIST LABORATORY Urine Source Clean Catch 06/06/2020 [facility] [place] 5:33 PM FISH CULTURIST LABORATORY Specimen Anatomical Collection Method Collection Time Receive d Time (Source) Location / / Volume Laterality Urine URINE SPECIMEN Non-blood 06/06/2020 4:36 PM 021 4:36 COLLECTION, CLEAN Collection / FISH CULTURIST PM FISH CULTURIST CATCH / Unknown Unknown Shannan Matthews DO LAB_1 Performing Organization Address City/State/ZIP Code Phon e Number [facility] [address] [place] [address] documented in this encounter Visit Diagnoses Diagnosis Generalized edema - Primary Edema Urinary frequency Recurrent kidney stones Calculus of kidney Recurrent major depressive disorder, rem ission status unspecified ([facility]) documented in this encounter Care Teams Fittings Tightener Relationship Specialty Start Date End Date Shannan Matthews DO PCP - General Family Practice 10/13/19 [address] [place] [address] documented as of this encounter
--- OUTSIDE RECORDS SUMMARY | 2022-04-25 22:30 | XMS_ITS | Encounter Summary ---
:1985 Author Organization [facility] Address [address], [place] [address] Care Team Providers Name Role Phone Shannan Matthews DO Primary Care Provider Reason for Visit Auth/Cert Specialty Diagnoses / Procedures Referred By Contact Refer red To Contact Diagnoses Kidney stone Procedures ureteroscopy, laser lithotripsy, ureteral stent placement, retrograde ureteropyelogram Referral ID Status Reason Start Date Expiration Date Visits Requ ested Visits Authorized [id number] 1 1 Encounter Details Date Type Department Care Team Description 09/04/2020 Anesthesia Event [facility] [place] [address] [id number] [phone] (Wo rk) Anesthesia Record Procedure Summary Procedure Name Responsible Anesthesia Start Anesthesia Stop Anesthesiologist Time Time ureteroscopy, ureteral Demar Russell MD 09/04/20 1206 1330 stent placement, retrograde ureteropyelogram (Right: Abdomen) Events Date Time Event Comment 09/04/2020 1206 1206 An Start 1211 An Start Data 1211 MD/DO Present 1215 An Induction 1217 An LMA 1220 MD/DO Present 1252 MD/DO Present 1320 An LMA Removed Spontaneous resp irations with adequate air exchange. LMA re moved without complications. Transported with oxygen to recovery. 1323 an stop data 1330 An Stop Care transferred . 1330 Care Handoff Note I discussed wi th the receiving nurse and we: 1) Identified the p atient, chamorro family member(s) or patient surrogat e 2) Identified the responsible practitioner 3) Reviewed the pertinent medical history 4) Discu ssed the surgical/procedure course 5) Reviewed intr a-op anesthesia management and issues during an esthesia 6) Set expectations for the post-procedu re period 7) Allowed opportunity for questions an d acknowledgement of understanding of report Electr onically signed by Harsha Fam APRN, CRNA Name Total midazolam injection 2 mg/2 mL (VERSED) 2 mg fentaNYL injection (SUBLIMAZE) 100 mcg lidocaine 1% PF injection (XYLOCAINE) 70 mg propofol 10 mg/mL for procedural sedation (aka diPRIva n) 180 mg propofol 10 mg/mL for procedural sedation (aka diPRIva n) 621.23 mg ondansetron injection (ZOFRAN) 4 mg dexamethasone 4 mg/mL injection (aka DECADRON) 8 mg ketorolac 15 mg/mL injection (TORADOL) 15 mg ceFAZolin (aka ANCEF) 2 g in dextrose 100 ml IVPB 2 g dexmedetomidine (PRECEDEX) 20 mcg in NaCl 5 mL (4 mcg/ mL) injection SYRINGE 8 mcg lactated ringers infusion 0 mL Agents Name O2 Air Identified Agent Name Blood No blood administrations on file. Lines, Drains, and Airways Type Details Placement Removal Peripheral IV Placement Date: 09/04/20 104 by 09/04/20 1425 b y 09/04/20; Placement Janie Frias Byrnes, Jenna R, RN Time: 1045; RN Pre-existing: No; Inserted by?: RN; Size (Gauge): 20 G; Orientation: Left, Right; Site Prep: Chlorhexidine; Insertion attempts: 1; Blood draw with insertion?: no; Patient Tolerance: Tolerated well; Removal Date: 09/04/20; Removal Time: 142; Removal Reason: Patient discharged; Catheter Tip: Intact LMA Placement Date: 09/04/201214 by 09/04/20 1320 b y 09/04/20; Placement Harsha Fam APRN, Jirik, Frank A, Time: 1215; Placed By: JOSH COLUNGA APRN, CRNA; Induction Type: Pre-O2; Airway masking: Easy; Size (mm): 4; Placement details: Prepped and lubricated, Placed with ease, Gauze bite inserted, Cuff inflated with minimum volume to create seal; Difficulty: Atraumatic; Placement verification: BBSE, Positive EtCO2, auscultation, capnometry; Teeth and lips: Unchanged; Airway emergence: Following commands, Opening eyes, Spontaneous respirations, Adequate air exchange; Removal Date: 09/04/20; Removal Time: 1320; Transferred with Oxygen: Yes Incision/Surgical Site 09/04/20; 1236; Vagina, 09/04/20 1236 by 09/04/20 1426 by Urethra; 09/04/20; 1426 May Skinner RN Byrne s, Jenna R, RN Ureteral/Stent Drain 09/04/20; 1250; No; 09/04/20 1250 by 1426 by Right ureter; 6 Fr. May Skinner RN Byrnes, J enna R, RN documented in this encounter Social History Tobacco Use Types Packs/Day Years Used Date Smoking Tobacco: Never Smokeless Tobacco: Never Alcohol Use Standard Drinks/Week Comments Not Currently 2 (1 standard drink = 0.6 oz pure alcoho l) rare Sex Assigned at Date Recorded Not on file documented as of this encounter Miscellaneous Notes Anesthesia Postprocedure Evaluation - Demar Russell MD - 09/04/2020 2:27 PM CDT [facility] Anesthesia Post-op Note Patient: Estefania Mckeon Post-Op Diagnosis: Kidney stone Procedure Performed: Procedure(s): Right - ureteroscopy, ureteral stent placement, retrograde ureteropyelogram - Wound Class: 2 CLEAN-CONTAMINATED Anesthesia Type: General Post-op vital signs: Vitals Value Taken Time BP 99/59 09/04/20 1416 Temp 36.5 ??C (97.7 ??F) 09/04/20 1350 Pulse 64 09/04/20 1419 Resp 18 09/04/20 1415 SpO2 100 % 09/04/20 1419 Vitals shown include unvalidated device data. Pain Score: Presence Of Pain: complains of pain/discomfort Preferred Pain Scale: number (Numeric Rating Pain Scale) Pain Rating (0-10): Rest: 4 Pain Rating (0- 10): Activity: 4 Post-op assessment: No anesthesia complication. Patient location: PACU Airway Status: Patent Cardiovascular function: Satisfactory Hydration status: Satisfactory PONV: None Level of Consciousness: Awake Fully Participates Postop Assessment: Patient tolerated procedure well. Electronically signed by: Demar Russell MD 09/04/2020 2:27 PM Anesthesia Preprocedure Evaluation - Demar Russell MD - 09/04/2020 11:00 AM CDT [facility] Anesthesia Pre-op Evaluation Procedure: Procedure(s): Right - ureteroscopy, laser lithotripsy, ureteral stent placement, retrograde ureteropyelogram HPI: 35 y.o. old female with Kidney stone NPO Status: Last Fluid Intake Time: 1929 Last Fluid Intake Date: 09/03/20 Last Food Intake Date: 09/03/20 Last Food Intake Time: 1929 Allergies Allergen Reactions ??? Amoxicillin Hives ??? Diphenhydramine Breathing Difficulty and Palpitations Benadryl ??? Macrobid [Nitrofurantoin] Hives ??? Antihistamines, Diphenhydramine-Type Palpitations Past Medical History: Diagnosis Date ??? Anemia iron deficiency ??? Bicornuate uterus ??? Blood transfusion, without reported diagnosis Chronic anemia ??? Endometriosis ??? Heartburn ??? Kidney stones 10 stones in past, current stone right kidney ??? Migraines ??? Pap smear abnormality of cervix ??? Varicella Patient Active Problem List Diagnosis ??? Vitamin D deficiency ??? Recurrent kidney stones ??? History of blood transfusion ??? KEZIA (iron deficiency anemia) ??? Encounter for female sterilization procedure ??? Bicornuate uterus ??? Endometriosis ??? Pyelonephritis of right kidney ??? Right kidney stone ??? Kidney stone Past Surgical History: Procedure Laterality Date ??? CYSTOSCOPY 2004 Kidney stones ??? HX APPENDECTOMY 1998 ??? SALPINGECTOMY Bilateral ??? TUBAL LIGATION 2019 ??? WISDOM TEETH EXTRACTION Outpatient Medications as of 09/04/2020 Medication Sig ??? bdmrthdigu-ogcynyacdufda-zqfvdisr (FIORICET) 50-325-40 MG tablet Take 1 Tablet by mouth every 4 hours as needed for Pain. ??? cetirizine (ZYRTEC) 10 MG tablet Take 10 mg by mouth daily. ??? propranolol (INDERALLA) 80 MG 24 hour release capsule Take 1 Capsule by mouth daily. ??? sertraline (ZOLOFT) 100 MG tablet Take 1/2 tablet for one week, then increase to 1 tablet daily. ??? SUMAtriptan (IMITREX) 50 MG tablet Take 1 Tablet by mouth as needed for Migraine. May repeat onetablet after 2 hours if needed. Maximum 4 tabs/24 hours and 9 days/month Facility-Administered Medications as of 09/04/2020 Medication Dose Route Frequency ??? ceFAZolin (aka ANCEF) 2 g in dextrose 100 ml IVPB 2 g Intravenous Once ??? fentaNYL (SUBLIMAZE) injection 25-50 mcg 25-50 mcg Intravenous Q5MIN PRN ??? fentaNYL (SUBLIMAZE) injection 25-50 mcg 25-50 mcg Intravenous Q5MIN PRN ??? HYDROmorphone (DILAUDID) injection 0.2-0.3 mg 0.2-0.3 mg Intravenous Q10MIN PRN ??? labetalol (NORMODYNE) injection 5 mg 5 mg Intravenous Q10MIN PRN ??? lactated ringers infusion 25 mL/hr Intravenous Continuous ??? midazolam (VERSED) injection 1-2 mg 1-2 mg Intravenous Q5MIN PRN ??? naloxone (NARCAN) injection 0.08 mg 0.08 mg Intravenous PRN ??? naloxone (NARCAN) injection 0.4 mg 0.4 mg Intravenous ONCE PRN ??? ondansetron (ZOFRAN) injection 4 mg 4 mg Intravenous Q4H PRN Labs: Lab Results Component Value Date/Time SODIUM 137 06/06/2020 04:36 PM K 3.9 06/06/2020 04:36 PM CHLORIDE 104 06/06/2020 04:36 PM BUN 13 06/06/2020 04:36 PM CREATININE 0.70 06/06/2020 04:36 PM GLUCOSE 80 06/06/2020 04:36 PM Lab Results Component Value Date/Time WBC 8.5 03/25/2020 04:49 PM HGB 12.5 04/03/2020 10:11 AM HCT 40.2 03/25/2020 04:49 PM PLTS 266 03/25/2020 04:49 PM No results found for: INR Reason a test was not performed: Tubal. Blood Bank: ABO (no units) Date Value 04/03/2020 O Antibody Screen (no units) Date Value 06/19/2018 NEG Antibody Screen Interpretation (no units) Date Value 04/03/2020 Negative EKG: No results found for this or any previous visit. Physical Exam: BP (!) 114/90 Pulse 75 Temp 36.7 ??C (98.1 ??F) (Temporal Artery) Resp 16 Ht 5' 7 Wt 77.1kg (170 lb) LMP 08/25/2020 (Exact Date) SpO2 97% BMI 26.63 kg/m?? Assessment/Plan: Review of Systems Patient does not have GERD. Patient is not a current smoker. The patient reports alcohol use. Patient denies any recent URI. History of PONV: No. History of motion sickness: No. Patient denies any personal or family history of anesthesia complications (PONV). Exam Mental Status: Alert and oriented. Mallampati score: I (One). Mouth opening: Normal Thyromental Distance: > 3 finger breadths and Normal Neck Extension: Full Neck Circumference > 40 cm?: No Previous airway assessment: Previously EASY intubation., (Mohr 2, grade 1 in 2019). Current airway assessment:Normal Dentition: Age appropriate. Cardiac Exam: Regular rate and rhythm. Respiratory Exam: Breath sounds clear to auscultation Assessment ASA Status: 2 . Plan Anesthesia type: General and LMA Induction: Intravenous Maintenance: TIVA Postoperative pain management (PONV): Plan for postoperative opioid use PONV Risk Score Peds:0 PONV Risk Score Adult: 3 PONV Prophylaxis (planned): Ondansetron and Decadron Anesthetic plan, risks, benefits and alternatives discussed with: Patient or Mica Laminating Machine Feeder agree tothe anesthesia treatment plan. The patient and/or their automotive leasing sales representative were notified about the potential risks of damage to the lips, teeth, dental devices, mouth and airway. H&P Reviewed and Patient examined, no change observed IV access Antibiotics per surgery Electronically signed by: Demar Russell MD 09/04/2020 11:00 AM documented in this encounter Plan of Treatment Not on filedocumented as of this encounter Visit Diagnoses Not on filedocumented in this encounter Administered Medications Inactive Administered Medications - up to 3 most recent administrations Medication Order MAR Action Action Date Dose Rate Site ceFAZolin (aka ANCEF) 2 g in Given 09/04/2020 12:21 PM CDT 2 g dextrose 100 ml IVPB 2 g, Intravenous, Administer over 30 Minutes, ONCE, On Chelly 09/04/20 at 1045, For 1 dose, Infuse within 60 minutes prior to incision. Re-dose 1g IV every 4 hours after initial dose until incision closed. Re-dose if more than 1.5 L of blood loss. Pharmacy may adjust for renal insufficiency., Pre-op dexamethasone (DECADRON) injection Given 09/04/2020 12:34 PM CDT 8 mg Intravenous, Starting on Chelly 09/04/20 at 1234, Until Chelly 09/04/20 at 1330 dexmedetomidine injection syringe 20 mcg /5 mL Given 09/04/2020 12:16 PM CDT 8 mcg Intravenous, Starting on Chelly 09/04/20 at 1216, Until Chelly 09/04/20 at 1330 fentaNYL (SUBLIMAZE) injection Given 09/04/2020 12:33 PM CDT 50 mcg Intravenous, Starting on Chelly 09/04/20 at 1217, Until Chelly 09/04/20 at 1330 Given 09/04/2020 12:17 PM CDT 50 mcg ketorolac (TORADOL) injection Given 09/04/2020 1:19 PM CDT 15 mg Intravenous, Starting on Chelly 09/04/20 at 1319, Until Chelly 09/04/20 at 1330 lidocaine PF (XYLOCAINE) 1 % injection Given 09/04/2020 12:15 PM CDT 70 mg Intravenous, Starting on Chelly 09/04/20 at 1215 midazolam (VERSED) injection Given 09/04/2020 12:17 PM CDT 2 mg Intravenous, Starting on Chelly 09/04/20 at 1217, Until Chelly 09/04/20 at 1330 ondansetron (ZOFRAN) injection Given 09/04/2020 12:34 PM CDT 4 mg Intravenous, Starting on Chelly 09/04/20 at 1234, Until Chelly 09/04/20 at 1330 propofol (DIPRIVAN) 10 mg/mL injection Given 09/04/2020 12:15 PM CDT 180 mg Intravenous, Starting on Chelly 09/04/20 at 1215, Until Chelly 09/04/20 at 1330 propofol (DIPRIVAN) 10 mg/mL Rate/Dose 09/04/2020 125 mcg/kg/min 56. 475 injection Change 12:46 PM CDT mL/hr Intravenous, Starting on Chelly 09/04/20 at 1224, Until Chelly 09/04/20 at 1330 Rate/Dose Change 09/04/2020 12:35 PM CDT 100 mcg/kg/min 45.18 mL/hr Started 09/04/2020 12:24 PM CDT 150 mcg/kg/min 67.77 mL/hr documented in this encounter Care Teams Bucket Hooker Relationship Specialty Start Date End Date Shannan Matthews DO PCP - General Family Practice 10/13/19 [address] [id number] documented as of this encounter
--- OUTSIDE RECORDS SUMMARY | 2022-04-25 22:30 | XMS_ITS | Encounter Summary ---
:1985 Author Organization [facility] Address [address] [place] [address] Care Team Providers Name Role Phone Shannan Kemp DO Primary Care Provider Reason for Visit Reason Comments Refill lyaaebowey-pzmhsrnznnyae-jra feine (FIORICET) 50-325-40 MG tablet [Pharmacy Med Name: Plyarhufdi-DPKO-Hujako ne Oral Tablet 50-325-40 MG] Encounter Details Date Type Department Care Team Description 05/18/2020 Refill [place] Shannan Kemp DO Refill Medicine [address] (butalbital-acetaminophe 1415 [facility] . AV n-caffeine (FIORICET) [place] [address] [place] [address] 50-325-40 MG tablet [phone] (Wo rk) [Pharmacy Med Name: Butalbita d-MMCZ-Wmbmyaph Oral Tablet 50- 325-40 MG]) Social History Tobacco Use Types Packs/Day Years Used Date Smoking Tobacco: Never Smokeless Tobacco: Never Alcohol Use Standard Drinks/Week Comments Not Currently 0 (1 standard drink = 0.6 oz pure alcoho l) 2/week Sex Assigned at Date Recorded Not on file documented as of this encounter Nursing Notes Stephanie Clemons LPN - 05/19/2020 4:54 PM CST Patient notified of below information. Patient had no further questions/concerns. R FILTERER HELPER Jayden Singer MD - 05/19/2020 4:11 PM CST Refill of fioricet was sent to the pharmacy, additional refills from Dr Kemp R FILTERER HELPER Naren Talbot MA - 05/19/2020 10:00 AM CST Routed per distribution list R FILTERER HELPER Interface, Out Surescripts Prov Query - 05/18/2020 7:17 PM CST pnyewrbmtr-bvwmmjundjugm-xlqnhzkq (FIORICET) 50-325-40 MG tablet [Pharmacy Med Name: Oobuxulerg-PLMQ-Leclrewu Oral Tablet 50-325-40 MG] Medication started: 12/28/2018 Last ordered by SHANNAN KEMP: 08/22/2019 (270 days ago) QTY: 10, Refills: 0, Sig: take 1 tablet by mouth every 4 hours as needed for pain. (unchanged) -> This medication was discontinued on 02/29/2020 by SHANNAN KEMP. -> Medication cannot be delegated. Last qualifying visit: 02/29/2020 (with SHANNAN KEMP) (A more recent visit (in Family Practice with [facility]) was found) Next scheduled visit: None [facility], Reference: [id number], 05/18/2020 7:17:03 PM WATER FILTERER HELPER, Pool: DEBRA MALHOTRAILL ([id number]) R FILTERER HELPER documented in this encounter Plan of Treatment Not on filedocumented as of this encounter Visit Diagnoses Diagnosis Headaches documented in this encounter Care Teams Ware Cleaner Relationship Specialty Start Date End Date Shannan Kemp DO PCP - General Family Practice 10/13/19 [address] [id number] documented as of this encounter
--- OUTSIDE RECORDS SUMMARY | 2022-04-25 22:30 | XMS_ITS | Encounter Summary ---
:1985 Author Organization [facility] Address [address] [place] [address] Care Team Providers Name Role Phone Shannan Matthews Primary Care Provider Reason for Visit Reason Comments PRE-OP EXAM 09/04 at [facility] Encounter Details Date Type Department Care Team Description 08/30/2020 Pre-Op Visit Rosemarie Silva, Preopera tive examination (Primary Dx); Medicine TUG CAPTAIN, TITLE INSURANCE EXAMINER Kidney stone [address] [place] [address] [address] [phone] [place], [place] [address] Social History Tobacco Use Types Packs/Day Years Used Date Smoking Tobacco: Never Smokeless Tobacco: Never Alcohol Use Standard Drinks/Week Comments Not Currently 2 (1 standard drink = 0.6 oz pure alcoho l) rare Sex Assigned at Date Recorded Not on file documented as of this encounter Last Filed Vital Signs Vital Sign Reading Time Taken Comments Blood Pressure 110/75 08/30/2020 10:47 AM CDT Pulse 79 08/30/2020 10:47 AM CDT Temperature - - Respiratory Rate - - Oxygen Saturation - - Inhaled Oxygen Concentration - - Weight 75.3 kg (166 lb) 08/30/2020 10:47 AM CDT Height - - Body Mass Index 26 08/28/2020 4:31 PM CDT documented in this encounter OR Notes H&P - Rosemarie FuentesSHERON, TITLE INSURANCE EXAMINER - 08/30/2020 10:40 AM CDT PREOPERATIVE ASSESSMENT Date of Service: 08/30/2020 Date of : 1985 Age: 35 y.o. Sex: female Preoperative Evaluation completed by: Rosemarie Fuentes APRN, TITLE INSURANCE EXAMINER Primary care physician: Shannan Matthews DO [phone] CHIEF COMPLAINT Pre-Operative Evaluation ANTICIPATED PROCEDURE Chief Complaint Patient presents with ??? PRE-OP EXAM 09/04 at [facility] Procedure: ureteroscopy, laser lithotripsy, ureteral stent placement, retrograde ureteropyelogram HISTORY OF PRESENT ILLNESS Estefania Mckeon is a 35 y.o. female here for preop. Risk Factors/Review of Systems: (Please see flowsheets [...] otherwise negative. Patient Active Problem List Diagnosis ??? Vitamin D deficiency ??? Recurrent kidney stones ??? History of blood transfusion ??? KEZIA (iron deficiency anemia) ??? Encounter for female sterilization procedure ??? Bicornuate uterus ??? Endometriosis ??? Pyelonephritis of right kidney ??? Right kidney stone ??? Kidney stone Past Medical History: Diagnosis Date ??? Anemia iron deficiency ??? Bicornuate uterus ??? Blood transfusion, without reported diagnosis Chronic anemia ??? Endometriosis ??? Heartburn ??? Kidney stones 10 stones in past, current stone right kidney ??? Migraines ??? Pap smear abnormality of cervix ??? Varicella Past Surgical History: Procedure Laterality Date ??? CYSTOSCOPY 2004 Kidney stones ??? HX APPENDECTOMY 1998 ??? SALPINGECTOMY Bilateral ??? TUBAL LIGATION 2019 ??? WISDOM TEETH EXTRACTION Family History Problem Relation Age of Onset ??? Spont Abortions Mother ??? Crohn's Disease Mother ??? Heart Disease Mother ??? Stroke Mother ??? Diabetes Father ??? High Cholesterol Father ??? Heart Disease Father ??? Heart Disease Maternal Grandfather ??? Cancer, Breast Paternal Grandmother Social History Tobacco Use ??? Smoking status: Never Smoker ??? Smokeless tobacco: Never Used Substance Use Topics ??? Alcohol use: Not Currently Alcohol/week: 2.0 standard drinks Types: 2 Cans of beer per week Comment: rare Current Outpatient Medications Medication Sig Dispense Refill ??? lxjcxgpfhs-hhdffpdrcqdem-ceszipgp (FIORICET) 50-325-40 MG tablet Take 1 Tablet by mouth every 4 hours as needed for Pain. 10 Tablet 0 ??? cetirizine (ZYRTEC) 10 MG tablet Take 10 mg by mouth daily. ??? ciprofloxacin (CIPRO) 500 MG tablet Take 1 Tablet by mouth two times a day for 4 days. Start 4 days prior to surgery. 8 Tablet 0 ??? hydroCHLOROthiazide (ORETIC) 25 MG tablet Take [...] medications for this visit. Allergies Allergen Reactions ??? Amoxicillin Hives ??? Diphenhydramine Breathing Difficulty and Palpitations Benadryl ??? Macrobid [Nitrofurantoin] Hives ??? Antihistamines, Diphenhydramine-Type Palpitations PHYSICAL EXAMINATION Pulse: 79 (08/30/20 1047) BP: 110/75 (08/30/20 1047) Weight: 166 lb (75.3 kg) (08/30/20 1047) General Appearance: Normal HEENT: Normal Neck: Normal Lungs: Normal Heart: Normal Abdomen: Normal Extremities: Normal Skin: Normal Neurologic: Normal TEST RESULTS AND DATE EKG done: No Labs done: Yes: date and results: 07/26/2020 at [facility] available in Care everywhere Creatinine is 0.84, sodium and potassium are within normal limits Hemoglobin 13, platelet 238, white blood cell count 7.6 ASSESSMENT 1. Preoperative Assessment: This patient has been examined by me today and has been found to be a suitable candidate for surgery: Yes 2. She would like to try increasing the hydrochlorothiazide to help with fluid retention and will increase to 25 mg per day after her surgery. RECOMMENDATIONS AND PLAN Day of surgery testing: none Medication recommendations including insulin / diabetes: Hold hydrochlorothiazide the morning of surgery Additional screening recommended: no Consult (Cardiology/other): no [...] ABOVE RECOMMENDATIONS WERE REVIEWED WITH PATIENT: yes Rosemarie Fuentes APRN, TAYLA 08/30/2020 documented in this encounter Plan of Treatment Not on filedocumented as of this encounter Visit Diagnoses Diagnosis Preoperative examination - Primary Preoperative examination, unspecified Kidney stone Calculus of kidney documented in this encounter Care Teams Youth Advocate Relationship Specialty Start Date End Date Shannan Matthews DO PCP - General Family Practice 10/13/19 [address] [id number] documented as of this encounter
--- OUTSIDE RECORDS SUMMARY | 2022-04-25 22:30 | XMS_ITS | Encounter Summary ---
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 documented in this encounter Results Asymptomatic - 2019 Novel Coronavirus (COVID-19) (04/08/2020 1:49 PM METAL FINISH INSPECTOR) [facility] Method Time Signature SARS Not Detected Not Detected 04/12/2020 HELIX CORONAVIRUS 2 10:21 PM RNA IN METAL FINISH INSPECTOR RESPIRATORY SPECIMEN BY TOVA W Comment: Results and Interpretation Negative: SARS-CoV-2 not detected Testing did not identify the presence of SARS-CoV-2 (the virus that causes COVID-19) in the patient's sample. Many factors can impact the sensitivity of this test, including variability in sample collection technique, stage of infection, or the presence of interfering substances. Collection of multiple samples may be necessary to detect the SARS-CoV- 2 virus. If clinically indicated, consider collecting a new sample for COVID-19 testing or testing for other respiratory viruses. Methods and Limitations This test was developed for the detectio n of nucleic acids from the SARS-CoV-2 virus by RT-PCR in individuals who meet SARS-CoV-2 clinical and/or epidemiological criteria. This test has not been FDA cleared or ap proved. This test has been authorized by FDA und er an EUA for use by the authorized laboratory. This test is only authorized for the duration of time that the [place] of the [facility] declares circumstances exist j ustifying the authorization of the emerg ency use of in vitro diagnostic tests for detection of SARS-CoV-2 virus and/or diagnosis of COVID-19 infection under section 564(b)(1) of the Act, 21 U.S.C. 360bb b-3(b)(1), unless the authorization is t erminated or revoked sooner. To learn more about this test, go to [facility] [email or web address] Performed by: YARY Arreola [id number], CLIA [id number], [address] [facility] [place] [address] Wirer Maintenance: Juno Green, Ph D, [facility], [facility] ([facility]) Specimen Anatomical Collection Method Collection Time Receive d Time (Source) Location / / Volume Laterality Swab (Source Non-blood 04/08/2020 1:49 PM 0 4:56 Required) Collection / METAL FINISH INSPECTOR PM METAL FINISH INSPECTOR Unknown Shannan Matthews DO LAB_1 Performing Organization Address City/State/ZIP Code Phon e Number [facility] [address] [facility] [place] [address] documented in this encounter Visit Diagnoses Diagnosis Contact with or exposure to viral diseas e Contact with or exposure to other viral diseases documented in this encounter Care Teams Delivery Specialist Relationship Specialty Start Date End Date Shannan Matthews DO PCP - General Family Practice 10/13/19 [address] [address] documented as of this encounter
--- OUTSIDE RECORDS SUMMARY | 2022-04-25 22:30 | XMS_ITS | Encounter Summary ---
:1985 Author Organization [facility] Address [address] [place] [address] Care Team Providers Name Role Phone Shannan Matthews DO Primary Care Provider Reason for Visit Reason Comments Flank Pain Encounter Details Date Type Department Care Team Description 07/25/2020 Nurse Triage [facility] Shannan Matthews DO [facility]ank [facility] [address] [facility] [address] [place] [address] [place] [address] [phone] (Wo rk) Social History Tobacco Use Types Packs/Day Years Used Date Smoking Tobacco: Never Smokeless Tobacco: Never Alcohol Use Standard Drinks/Week Comments Not Currently 0 (1 standard drink = 0.6 oz pure alcoho l) rare Sex Assigned at Date Recorded Not on file documented as of this encounter Nursing Notes Aashish Osman RN - 07/25/2020 1:06 PM CST Spoke with pt. Reports has history of recurrent kidney stones. On 07/23/20, started experiencing agonizing and annoying pressure-feeling pain on the right flank area. Started as intermittent but then today became constant rated at 5/10. No exacerbating or alleviating factors noted. Denies fever, abdominal pain, dysuria or blood in the urine. Problem list reviewed as related to this call. Reason for Disposition ??? MODERATE pain (e.g., interferes with normal activities or awakens from sleep) Protocols used: FLANK [id number] RTISER Maryjo Jenkins - 07/25/2020 12:59 PM CST Symptoms Describe your symptoms (if pain, include location): Back pain lower right, she had a kidney stone , serious issues, now it is same area When did they start? 07/24/19 today continuous. Additional comments (related to the above concern): If a prescription is needed, patient would [...] Triage Pool (only transfer if caller insists) RTISER documented in this encounter Plan of Treatment Not on filedocumented as of this encounter Visit Diagnoses Not on filedocumented in this encounter Care Teams Community Organization Aide Relationship Specialty Start Date End Date Shannan Matthews DO PCP - General Family Practice 10/13/19 [address] [address] documented as of this encounter
--- OUTSIDE RECORDS SUMMARY | 2022-04-25 22:30 | XMS_ITS | Encounter Summary ---
:1985 Author Organization [facility] Address [address] [place] [address] Care Team Providers Name Role Phone Shannan Matthews DO Primary Care Provider Encounter Details Date Type Department Care Team Description 04/07/2020 Notes/Orders [facility] Shannan Matthews, Contact with or Practice DO exposure to viral [address] [place] [address] AV [phone] [place], [place] [phone] Social History Tobacco Use Types Packs/Day Years Used Date Smoking Tobacco: Never Smokeless Tobacco: Never Alcohol Use Standard Drinks/Week Comments Not Currently 0 (1 standard drink = 0.6 oz pure alcoho l) 2/week Sex Assigned at Date Recorded Not on file documented as of this encounter Plan of Treatment Not on filedocumented as of this encounter Results Asymptomatic - 2019 Novel Coronavirus (COVID-19) (04/08/2020 1:49 PM HEAD TRACK COACH) [facility] Method Time Signature SARS Not Detected Not Detected 04/12/2020 HELIX CORONAVIRUS 2 10:21 PM RNA IN HEAD TRACK COACH RESPIRATORY SPECIMEN BY TOVA W Comment: Results [...] for the duration of time that the [place] of the [facility] declares circumstances exist j ustifying the authorization of the emerg ency use of in vitro diagnostic tests for detection of SARS-CoV-2 virus and/or diagnosis of COVID-19 infection under section 564(b)(1) of the Act, 21 U.S.C. 360bb b-3(b)(1), unless the authorization is t erminated or revoked sooner. To learn more about this test, go to [employer] [facility] [email or web address] Performed by: YARY Arreola [id number], CLIA [id number], [address] [facility] [address] [place] [address] Diabetic Educator: Juno Green, Ph D, [facility], [facility] ([facility]) Specimen Anatomical Collection Method Collection Time Receive d Time (Source) Location / / Volume Laterality Swab (Source Non-blood 04/08/2020 1:49 PM 0 4:56 Required) Collection / HEAD TRACK COACH PM HEAD TRACK COACH Unknown Shannan Matthews DO LAB_1 Performing Organization Address City/State/ZIP Code Phon e Number [facility] [address] [facility] [place] [address] documented in this encounter Visit Diagnoses Diagnosis Contact with or exposure to viral diseas e Contact with or exposure to other viral diseases documented in this encounter Care Teams Fishing Vessel Deckhand Relationship Specialty Start Date End Date Shannan Matthews DO PCP - General Family Practice 10/13/19 [address] [id number] documented as of this encounter
--- OUTSIDE RECORDS SUMMARY | 2022-04-25 22:30 | XMS_ITS | Encounter Summary ---
:1985 Author Organization [facility] Address [address], [place] [address] Care Team Providers Name Role Phone Shannan Matthews Primary Care Provider Reason for Visit Reason Comments Follow-up Encounter Details Date Type Department Care Team Description 09/10/2020 Office Visit Payton Alvares Flank pa in ([facility] - Dx) Urology [address] [place] [phone] (Wo rk) Social History Tobacco Use Types [...] Pressure - - Pulse - - Temperature - - Respiratory Rate 15 09/10/2020 2:59 PM CDT Oxygen Saturation - - Inhaled Oxygen Concentration - - Weight - - Height - - Body Mass Index - - documented in this encounter Progress Notes Payton Mejia MD - 09/10/2020 12:00 AM CDT ESTEFANIA MCKEON CSN: [id number] CLINIC NOTE DATE OF SERVICE: 09/10/2020 : 1985 Estefania is a very pleasant 35-year-old woman with a history of kidney stones. She had a very large staghorn kidney stone that was removed by Dr. Danyel Lockett in March 2020, and continued to have significant symptoms. She underwent a repeat CT scan at an outside provider, which I reviewed, and she had some small stones and significant hydronephrosis. The patient underwent a renal scan that showed decent function in the right kidney, 33%, with washout phase of 34 minutes. I took her back to the operating room to perform ureteroscopy, retrogrades, and to remove whatever remaining stones. This happened last week. I took a lot of care to make sure that the stent was in the upper pole of the kidney to see if this would improve her symptoms. The patient notes that she has had some improvement in her back, maybe is a little bit less full, and she is able to play with her kids. She continues to feel tired and drained and just feels off/blah. She notes that the symptoms are not quite as bad as they were prior to the procedure. At the time of the procedure, I saw that the patient had no evidence of any ureteral strictures. The ureter was completely open. The patient had severe hydronephrosis with almost a separate upper pole blown-out collecting system. There was no actual stone, it was just tiny fragments that were too small to basket. ASSESSMENT: History of hydronephrosis and kidney stones. PLAN: 1. Leave the stent in for 6 weeks to see if this will continue to improve her symptoms. Follow up in 6 weeks for symptom check. She will call if she has any difficulties in the interim. 2. Will consider repeating the renal scan with the stent in place to see if it made any difference in the patient's drainage or function. Total time today was 20 minutes. Time was spent talking with the patient, reviewing imaging, reviewing the patient's chart, and documentation. MD ANNA Henriquez/PARRIS /[id number] documented in this encounter Plan of Treatment Not on filedocumented as of this encounter Visit Diagnoses Diagnosis Flank pain - Primary Abdominal pain, unspecified site documented in this encounter Care Teams Health And Wellness Coach Relationship Specialty Start Date End Date Shannan Matthews DO PCP - General Family Practice 10/13/19 [address] [address] documented as of this encounter
--- OUTSIDE RECORDS SUMMARY | 2022-04-25 22:30 | XMS_ITS | Encounter Summary ---
:1985 Author Organization [facility] Address [address], [place] [address] Care Team Providers Name Role Phone Cassie Shannan Jose VALDIVIA Primary Care Provider Reason for Visit Reason Onset Date Comments Phone Visit Phone Visit 06/17/2020 Encounter Details Date Type Department Care Team Description 06/17/2020 Phone Visit Frances Gauthier Staghor n kidney stones [facility] - [facility], TAYLA (Primary Dx) Urology [address] [place] [phone] (Wo rk) Social History Tobacco Use Types Packs/Day Years Used Date Smoking Tobacco: Never Smokeless Tobacco: Never Alcohol Use Standard Drinks/Week Comments Not Currently 0 (1 standard drink = 0.6 oz pure alcoho l) 2/week Sex Assigned at Date Recorded Not on file documented as of this encounter Patient Instructions Patient InstructionsFrances Brenner APRN, WELDER [employer]TER [employer] - 06/17/2020 10:00 AM NATIONAL VAN OWNER OPERATOR Start hydrochlorothiazide 12.5 mg in the morning. Go to the lab in 2-3 weeks to check electrolytes. Call [phone] to schedule this. You do not need to be fasting. You will get a postcard for follow up in 4 months. ONAL VAN OWNER OPERATOR documented in this encounter Progress Notes Frances Brenner APRN, CNP - 06/17/2020 10:00 AM CST Subjective: Today's visit with Estefania was conducted as a scheduled telephone visit. Estefania Mckeon is a 35 y.o. y/o female with a history of recurrent renal stones here for metabolic stone evaluation. Stone History: 1st stone at age 19, staghorn stone this year Procedures: URS at age 19 and PCNL Mar 2020 Passage: none Family History of stones: none Stone Composition: 70% calcium phosphate, 30% calcium oxalate Other Factors: none Previous Metabolic workup: none DATA: Low urine volume, calcium 202, citrate 518 Diet recall: She drinks 60 oz water daily, generally eats a balanced diet, not high in meat or sodium Supplements: B12, D - has a low vitamin D level Objective: There were no vitals taken for this visit. NA - phone visit Assessment/Plan: 1. Staghorn kidney stones Estefania is a 35 y.o. female who has a history of stones and most recently underwent right PCNL. Shehad a large stone burden. She did have a lot of hydro and infection. Most of the stone was cleared. - Fluid intake to have a daily urine output of 2.5 L. This would require an intake of around 96 oz (3L). - Normal calcium diet of 800-1200 mg per day, dietary sources are best. - Low sodium diet - no added salt to foods. Sodium intake of 2000 mg a day. Consider following DASH Eating Plan. - Decrease non dairy animal protein to 6 oz per day. - Try to have 5 servings of fruits and/or vegetables a day. - Add 4 oz of lemon juice to water daily. - start hydrochlorothiazide 12.5 mg daily - electrolytes in 1 month - saturation profile in 4 months. TT 30 minutes, including non face to face time spent reviewing records, counseling and coordination of care. Frances Brenner APRN, TAYLA ONAL VAN OWNER OPERATOR documented in this encounter Plan of Treatment Not on filedocumented as of this encounter Visit Diagnoses Diagnosis Staghorn kidney stones - Primary Calculus of kidney documented in this encounter Care Teams Hand Shoes Sewer Relationship Specialty Start Date End Date Shannan Matthews DO PCP - General Family Practice 10/13/19 [address] [address] documented as of this encounter
--- OUTSIDE RECORDS SUMMARY | 2022-04-25 22:30 | XMS_ITS | Encounter Summary ---
:1985 Author Organization [facility] Address [address], [place] [address] Care Team Providers Name Role Phone Shannan Matthews Primary Care Provider Reason for Referral Procedure/Equipment (Routine) - Incomplete Specialty Diagnoses / Procedures Referred By Contact Refer red To Contact Procedures Payton Mejia MD HELENA Inlight Camera Images [address] [place], [place] [address] Referral ID Status Reason Start Date Expiration Date Visits V isits Requested Authorized [id number] Incomplete 09/04/2020 12/04/2021 1 1 Procedure/Equipment (Routine) - Incomplete Specialty Diagnoses / Procedures Referred By Contact Refer red To Contact Procedures Payton Mejia MD FL C Arm [address] [place], [place] [address] Referral ID Status Reason Start Date Expiration Date Visits V isits Requested Authorized [id number] Incomplete 08/29/2020 11/28/2021 1 1 Reason for Visit Auth/Cert Specialty Diagnoses / Procedures Referred By Contact Refer red To Contact Diagnoses Kidney stone Procedures ureteroscopy, laser lithotripsy, ureteral stent placement, retrograde ureteropyelogram Referral ID Status Reason Start Date Expiration Date Visits Requ ested Visits Authorized [id number] 1 1 Encounter Details Date Type Department Care Team Description 09/04/2020 Hospital Encounter BV [facility] AMB SURGERY C TR Payton Mejia, [address] [address] [facility] [phone] [place] [address] (Wo rk) Social History Tobacco Use Types Packs/Day Years Used Date Smoking Tobacco: Never Smokeless Tobacco: Never Alcohol Use Standard Drinks/Week Comments Not Currently 2 (1 standard drink = 0.6 oz pure alcoho l) rare Sex Assigned at Date Recorded Not on file documented as of this encounter Last Filed Vital Signs Vital Sign Reading Time Taken Comments Blood Pressure 99/59 09/04/2020 2:15 PM CDT Pulse 66 09/04/2020 2:15 PM CDT Temperature 36.5 ??C (97.7 ??F) 09/04/2020 1:50 PM CDT Respiratory Rate 18 09/04/2020 2:15 PM CDT Oxygen Saturation 100% 09/04/2020 2:15 PM CDT Inhaled Oxygen Concentration - - Weight 77.1 kg (170 lb) 08/28/2020 4:31 PM CDT Height 170.2 cm (5' 7) 08/28/2020 4:31 PM CDT Body Mass Index 26.63 08/28/2020 4:31 PM CDT documented in this encounter Discharge Instructions Discharge Instr - Other Payton Linn MD - 09/04/2020 1:32 PM CDT Discharge instructions: PATIENT SPECIFIC INSTRUCTIONS: For any issues after discharge, please contact me or my nurse at [phone] or leave a message at [phone]. THINGS TO BE WORRIED ABOUT: Go to the Emergency Room, Urgent Care, or call Urology: *Temperature greater than 101 *Pain is not controlled with medications *Chest pain or shortness of breath GENERAL ACTIVITY: *You may shower *Take pain medications as indicated. *No heavy lifting or rigorous exercise for 2-3 days. Walking and climbing stairs is okay. *No driving while taking pain medications *As tolerated URINE: *You may have some blood in the urine, this is expected. STENT: *You have a stent in place. This may cause some discomfort and urinary urgency and frequency. This may also cause some pain in the back with urination. DIET: *Plenty of water, fruits, and vegetables documented in this encounter Medications at Time of Discharge Medication Sig Dispensed Refills Start Date End Date cetirizine (ZYRTEC) 10 MG Take 10 mg by 0 tablet mouth daily. SUMAtriptan (IMITREX) 50 MG Take 1 Tablet by 9 Tablet 2 tabletIndications: Headaches mouth as needed for Migraine. May repeat one tablet after 2 hours if needed. Maximum 4 tabs/24 hours and 9 days/month brkbciusvw-lihzhzrppmmtk-uqd Take 1 Tablet by 10 Tablet 0 1 07/20/2019 12/14/2021 feine (FIORICET) 50-325-40 mouth every 4 MG tabletIndications: hours as needed Headaches for Pain. hydroCHLOROthiazide (ORETIC) Take 1 Tablet by 90 Tablet 3 0 08/30/2020 10/22/2021 25 MG tabletIndications: mouth daily. Kidney stone oxyCODONE (ROXICODONE) 5 MG Take 1 Tablet by 5 Tablet 0 09/17/2020 immediate release tablet mouth every 4 hours as needed for Pain. propranolol (INDERALLA) 80 Take 1 Capsule 90 Capsule 3 08/2109/17/2020 MG 24 hour release by mouth daily. capsuleIndications: Headaches, Essential hypertension (HRC) senna (SENNA LAXATIVE) 8.6 Take 1 Tablet by 10 Tablet 0 09/17/2020 MG tablet mouth two times a day. sertraline (ZOLOFT) 100 MG Take 1/2 tablet 90 Tablet 3 05/2308/03/2021 tablet for one week, then increase to 1 tablet daily. documented as of this encounter Progress Notes Carie Butt RN - 09/02/2020 9:23 AM CDT PPA call completed by calling [phone] and spoke to patient. Advised of arrival time 1015. Reviewed pre-procedure questions, detailed instructions with NPO guidelines and address given. All questions answered, no other needs at this time. documented in this encounter H&P Notes Payton Mejia MD - 09/04/2020 11:15 AM CDT ASC Interval History and Physical Note The attached H&P has been reviewed. The patient was examined. No change observed. Source Note - Rosemarie Fuentes APRN, TAYLA - 08/30/2020 10:40 AM CDT PREOPERATIVE ASSESSMENT Date of Service: 08/30/2020 Date of : 1985 Age: 35 y.o. Sex: female Preoperative Evaluation completed by: Rosemarie Fuentes APRN, FELT PAD CUTTER Primary care physician: Shannan Matthews DO [phone] CHIEF COMPLAINT Pre-Operative Evaluation ANTICIPATED PROCEDURE Chief Complaint Patient presents with ??? PRE-OP EXAM 09/04 at [facility] Procedure: ureteroscopy, laser lithotripsy, ureteral stent [...] Outpatient Medications Medication Sig Dispense Refill ??? feyzusrais-wnktbzddhjgkb-zlhwamij (FIORICET) 50-325-40 MG tablet Take 1 Tablet [...] done: Yes: date and results: 07/26/2020 at [facility] available in Care everywhere Creatinine is 0.84, [...] REVIEWED WITH PATIENT: yes Rosemarie Fuentes APRN, CNP 08/30/2020 documented in this encounter Procedure Notes Payton Mejia MD - 09/04/2020 2:32 PM CDT NAME: ESTEFANIA MCKEON MR#: [id number] CSN: [id number] AUTHENTICATING CLINICIAN: Payton Mejia MD CONFIRM #: [id number] LOC: 1 OPERATIVE REPORT DATE OF OPERATION: 09/04/2020 : 1985 SURGEON: Payton Mejia MD PREOPERATIVE DIAGNOSES: Kidney stones and hydronephrosis. POSTOP DIAGNOSES: Kidney stones and hydronephrosis. PROCEDURE: Right ureteroscopy, right retrograde ureteral pyelogram, and right ureteral stent placement. ANESTHESIA: General anesthesia. ESTIMATED BLOOD LOSS: 2 ml. FINDINGS: Patient had severe hydronephrosis, very unusual kidney architecture, and the stones that were still remaining in the kidney were tiny. They were too small to basket or treat. I think what we were seeing on the CT scan was just a conglomeration of small fragments. I did my best to wash these out. INDICATIONS FOR OPERATION: Please see my clinic note from last week for full details. Essentially, the patient is continuing tohave symptoms on the right side. DESCRIPTION OF PROCEDURE: The patient was brought to the operating room. She underwent general anesthesia. She was prepped anddraped in the standard fashion in the dorsal lithotomy position. A time-out was performed. The patient's identification and the procedure were confirmed. The 22-[place] Citizen cystoscope was placed in the patient's urethra and then into the bladder. The right ureteral orifice was identified. It was intubated using a ureteral catheter. At that point, a retrograde ureteral pyelogram was done. The ureter was carefully examined. There did not appear to be any strictures and the ureter was open. The patient has severe hydronephrosis. I then placed a wire and ureteral access sheath over the wire. First I used the internal of the 04/04. This went up smoothly. Then I used the internal and external portions of theaccess sheath. Again, this one went up without any difficulty. I then placed the flexible ureteroscope in the kidney and I looked through all of the calices. I found these tiny stone fragments. I triedto wash these out to the best my ability. I also tried a basket, but they were too small to basket. Once I was convinced that there were no stones to treat within the kidney, I did do another retrograde ureteral pyelogram, ensuring that I checked every calyx for any possible stones. At that point, I left the ureteroscope in one of the upper calices. I placed a wire into the upper calyx, removing theureteroscope, leaving the wire in place. I backloaded the wire on the cystoscope. I placed the cystoscope in the bladder. I then placed a 6-[place] Citizen 28 cm stent over the wire. This actually got sucked upinto the ureter. I felt the 28 cm would be long enough, but it was not. I then had to put a short needle ureteroscope within the distal ureter. The stent was grasped with the basket and brought to the ureteral orifice. It was just in the bladder, and I was worried that with movement, it could retract back up into the kidney; therefore, I decided to change it. I brought the urethral stent to the urethral meatus using alligator grasper and the cystoscope. A wire was placed up into the kidney through the stent. Unfortunately, I could not get it back into the upper pole, which I wanted to do to see if that might help with some of the patient's symptoms. Jenniferen took the TigerTail and manipulated it until the wire was in the upper pole. I then back-loaded the wire on the cystoscope and placed a 6-[place] Citizen multilink stent. The wire was removed and a good coil was appreciated in the upper pole of the kidney by fluoroscopy and in the bladder. Patient's bladder was drained. A Uro-Jet was placed. She tolerated the procedure well. She was transferred to the recovery room in stable condition. JMR:JUSTIN C: CONFIRM #: [id number] Payton Mejia MD - 09/04/2020 1:28 PM CDT BRIEF OPERATIVE NOTE Pre op diagnosis: kidney stones Post op diagnosis: kidney stones Procedure: ureteroscopy, ureteral stent placement, retrograde ureteropyelogram Surgeon: Payton Mejia MD Findings: Hydronephrosis, tiny stone fragments, no strictures Estimated blood loss: 2 ml Specimen: none Complications: None Disposition: home documented in this encounter Plan of Treatment Not on filedocumented as of this encounter Procedures Procedure Name Priority Date/Time Associated Comments Diagnosis FL C ARM Routine 09/04/2020 1:39 PM Results f or this CDT procedure are i n the results section. CYSTOSCOPY,RETROGRADE 09/04/2020 11:55 Kidney stone PYELOGRAM,URETEROSCOP AM CDT Y,HOLMIUM LASER LITHOTRIPSY OF STONE,URETERAL STENT PLACEMENT HELENA INLIGHT CAMERA Routine 09/04/2020 10:42 Resul ts for this IMAGES AM CDT procedure are i n the results section. documented in this encounter Results FL C Arm (09/04/2020 1:39 PM CDT) Anatomical Region Laterality Modality Radio Fluoroscopy Specimen (Source) Anatomical Location Collection Method / Collectio n Time Received Time / Laterality Volume Narrative 09/04/2020 1:42 PM CDT These images were obtained during a surg ical procedure. Payton Mejia MD RAD FL HELENA Inlight Camera Images (09/04/2020 10:42 AM CDT) Anatomical Region Laterality Modality Endoscopy Specimen (Source) Anatomical Location Collection Method / Collectio n Time Received Time / Laterality Volume Narrative 09/04/2020 10:42 AM CDT These images were obtained during a surg ical procedure. Payton Mejia MD RAD NON-REPORTABLES documented in this encounter Visit Diagnoses Diagnosis Kidney stone - Primary Calculus of kidney documented in this encounter Admitting Diagnoses Diagnosis Kidney stone Calculus of kidney documented in this encounter Administered Medications Inactive Administered Medications - up to 3 most recent administrations Medication Order MAR Action Action Date Dose Rate Site fentaNYL (SUBLIMAZE) injection 25-50 mcg 25-50 mcg, Intravenous, [id number], Other, 25 mcg for Mi ld to Moderate Pain (pain score 1-5), 50 mcg for Moderate to Severe Pain (pain s core 6 and above) in the immediate postop period when faster on-set, short acti ng agent is desired., Starting on Chelly 09/04/20 at 0709, Until Chelly 09/04/20 at 1636, Administer every 5 minutes as needed, to a maximum cumulati ve dose of 250 mcg. Call Anesthesiologist if additional dose needed For patients with a regional , spinal, or local anesthetic, may give for anticipated zenobia n as the anesthetic wears off. Use fentanyl initially for a short acting agent for t reatment of acute post-operative pain. May be used in conjunction with a longer acting agent if o rdered for optimal pain control. Respiratory rate must be greater than 10 to a dminister medications., PACU/Recovery fentaNYL (SUBLIMAZE) injection 25-50 mcg 25-50 mcg, Intravenous, [id number], Pain, Procedure, Starting on Chelly 09/04/20 at 1019, Until Chelly 09/04/20 at 1636, For 2 doses, As directed by anesthesiologist, Pre-op HYDROmorphone (DILAUDID) injection 0.2-0 .3 mg 0.2-0.3 mg, Intravenous, Q10MIN PRN, Pain, 0.2 mg IV f or Mild to Moderate pain (pain score 1-5), 0.3 mg IV for Moderate to Severe pain (pain score 6 and above) in the immediate postop period when longer acting agent is desired., Starting on Chelly 09/04/20 at 0709, Until Chelly 09/04/20 at 1636, Maximum cu mulative dose is 2 mg in PACU, call Anesthesiologist if additional dosage neede d. For patients with a regional, spinal, or local anesthetic, may give for an ticipated pain as the anesthetic wears off., PACU/Recovery iopamidol (ISOVUE-300) 61 % Given 09/04/2020 12:39 PM CDT 20 mL Other (Comment) injection ONCE PRN, Starting on Chelly 09/04/20 at 1239, Until Chelly 09/04/20 at 1636, Intra-op labetalol (NORMODYNE) injection 5 mg 5 mg, Intravenous, Q10MIN PRN, Other, Hi gh Blood Pressure, MAX 5 doses, hold for HR <50, Starting on Chelly 09/04/20 at 0709, Un til Chelly 09/04/20 at 1636, For 5 doses, Call Anesthesiologist before administration. Give as direct ed by Anesthesiologist., PACU/Recovery lactated ringers infusion Started 09/04/2020 10:51 AM CDT 25 mL/hr 25 mL/hr 25 mL/hr, Intravenous, CONTINUOUS, Starting on Chelly 09/04/20 at 1045, Administer on all preop surgery patients, ages 12 and older, unless specified differently in the Protocol for Preop Initiation of IV fluids Order Set., Pre-op lidocaine (UROJET) 2 % prefilled Given 09/04/2020 1:23 PM CDT 10 mL Other (Comment) syringe ONCE PRN, Starting on Chelly 09/04/20 at 1323, Intra-op midazolam (VERSED) injection 1-2 mg 1-2 mg, Intravenous, [id number], Sedation, Anxiety, Proc edure, Starting on Chelly 09/04/20 at 1019, Until Chelly 09/04/20 at 1636, As directe d by anesthesiologist MAX Dose 2mg, Pre-op naloxone (NARCAN) injection 0.08 mg 0.08 mg, Intravenous, PRN, Other, For respiratory rate less than 8/minute or patient difficult to arouse, Starting on Chelly 09/04/20 at 0709, Until Chelly 09/04/20 at 1636, May repeat every 3 minutes or until patient is r esponsive to physical stimulation and is able to take deep sharri aths. Maximum cumulative dose is 0.4 mg (1 mL). Continue to observe; if no response after administering total dose of 0.4 mg notify anesthesiologist STAT., PACU/Recovery naloxone (NARCAN) injection 0.4 mg 0.4 mg, Intravenous, ONCE PRN, Opioid Re versal, Starting on Chelly 09/04/20 at 0709, Until Chelly 09/04/20 at 1636, For 1 dose, F or imminent respiratory arrest. Notify MD if naloxone is given., PACU/Recovery ondansetron (ZOFRAN) injection 4 mg 4 mg, Intravenous, Q4H PRN, Nausea, Vomiting, Starting on Chelly 09/04/20 at 0709, Until Chelly 09/04/20 at 1636, If multiple medications are ordered for nausea or vomiting - administer in the following priority based on medications ordered, effectiveness and availability: ondanset dominga (ZOFRAN) > prochlorperazine (COMPAZINE) > diphenhydrAMINE (BENADRYL) > hydrOXYzi ne HCl (VISTARIL)> ePHEDrine > scopolamine (TRANSDERM-SCOP)., PACU/Recovery documented in this encounter Active and Recently Administered Medications Times are shown in CDT. Scheduled Medication Order 09/02/2020 09/03/2020 09/04/2020 ceFAZolin (aka ANCEF) 2 g in dextrose 100 ml IVPB (COMPLETED) 1221 (Given - Provider: Harsha Fam APRN, SUPERVISOR PARTICLEBOARD) 2 g, Intravenous, Administer over 30 Min utes, ONCE, On Chelly 09/04/20 at 1045, For 1 dose, Infuse within 60 minutes prior to incision. Re-dose 1g IV every 4 hours after initial dose until incision closed. Re-dose if more than 1.5 L of blood loss . Pharmacy may adjust for renal insufficiency., Pre-op Continuous Medication Order 09/02/2020 09/03/2020 09/04/2020 lactated ringers infusion 1051 ( Started - Provider: Janie Frias RN) 25 mL/hr, Intravenous, at 25 mL/hr, CONT INUOUS, Starting on Chelly 09/04/20 at 1045, Administer on all preop surgery patients, ages 12 and older, unless specified differently in the Protocol for Preop Initiation of IV fluids Order Set., Pre-op PRN Medication Order 09/02/2020 09/03/2020 09/04/2020 fentaNYL (SUBLIMAZE) injection 25-50 mcg 25-50 mcg, Intravenous, [id number], Other, 25 mcg for Mild to Moderate Pain (pain score 1-5), 50 mcg for Moderate to Severe Pain (pain score 6 and above) in the immediate postop period when faster on-set, short acting agent is desired., Startin g on Chelly 09/04/20 at 0709, Administer every 5 minutes as needed, to a maximum cumulative dose of 250 mcg. Call Anesthesiologist if additional dose needed For patie nts with a regional, spinal, or local an esthetic, may give for anticipated pain as the anesthetic wears off. Use fentanyl initially for a short acting agent for treatment of acute post-operative pain. M ay be used in conjunction with a longer acting agent if ordered for optimal pain control. Respiratory rate must be greater than 10 to administer medications., PACU/Recovery fentaNYL (SUBLIMAZE) injection 25-50 mcg 25-50 mcg, Intravenous, [id number], Pain, Procedure, Starting on Chelly 09/04/20 at 1019, For 2 doses, As directed by anesthesiologist, Pre-op HYDROmorphone (DILAUDID) injection 0.2-0.3 mg 0.2-0.3 mg, Intravenous, Q10MIN PRN, Zenobia n, 0.2 mg IV for Mild to Moderate pain (pain score 1-5), 0.3 mg IV for Moderate to Severe pain (pain score 6 and above) in the immediate postop period when longer acting agent is desired., Starting on [facility] 09/04/20 at 0709, Maximum cumulative dose is 2 mg in PACU, call Anesthesiologist if additional dosage needed. For patients with a regional, spinal, or local ane sthetic, may give for anticipated pain a s the anesthetic wears off., PACU/Recovery HYDROmorphone (DILAUDID) injection 0.3-0.5 mg 0.3-0.5 mg, Intravenous, Q3H PRN, Other, Severe Pain (pain score 8-10) if patient unable to take PO, Starting on [facility] 09/04/20 at 1338, Severe Pain (pain score 8-10) if patient unable to take PO. Hold if on CUSTOMER LIAISON, Post-op iopamidol (ISOVUE-300) 61 % injection 1239 (Given - Provider: Payton Mejia MD - Comment: right ureter) ONCE PRN, Starting on [facility] 09/04/20 at 1239, Intra-op labetalol (NORMODYNE) injection 5 mg 5 mg, Intravenous, Q10MIN PRN, Other, Hi gh Blood Pressure, MAX 5 doses, hold for HR <50, Starting on [facility] 09/04/20 at 0709, For 5 doses, Call Anesthesiologist before administration. Give as directed by Anesthesiologist., PACU/Recovery lidocaine (UROJET) 2 % prefilled syringe 1323 (Given - Provider: Payton Mejia MD) ONCE PRN, Starting on [facility] 09/04/20 at 1323, Intra-op midazolam (VERSED) injection 1-2 mg 1-2 mg, Intravenous, [id number], Sedation, Anxiety, Procedure, Starting on [facility] 09/04/20 at 1019, As directed by anesthesiologist MAX Dose 2mg, Pre-op naloxone (NARCAN) injection 0.08 mg 0.08 mg, Intravenous, PRN, Other, For re spiratory rate less than 8/minute or patient difficult to arouse, Starting on [facility] 09/04/20 at 0709, May repeat every 3 minutes or until patient is responsive to ph ysical stimulation and is able to take d eep breaths. Maximum cumulative dose is 0.4 mg (1 mL). Continue to observe; if no response after administering total dose of 0.4 mg notify anesthesiologist STAT., PACU/Recovery naloxone (NARCAN) injection 0.4 mg 0.4 mg, Intravenous, ONCE PRN, Opioid Re versal, Starting on Chelly 09/04/20 at 0709, For 1 dose, For imminent respiratory arrest. Notify MD if naloxone is given., PACU/Recovery ondansetron (ZOFRAN) injection 4 mg 4 mg, Intravenous, Q4H PRN, Nausea, Vomi ting, Starting on Chelly 09/04/20 at 0709, If multiple medications are ordered for nausea or vomiting - administer in the following priority based on medications orde red, effectiveness and availability: ond ansetron (ZOFRAN) > prochlorperazine (COMPAZINE) > diphenhydrAMINE (BENADRYL) > hydrOXYzine HCl (VISTARIL)> ePHEDrine > scopolamine (TRANSDERM-SCOP)., PACU/Recovery oxyCODONE (ROXICODONE) immediate release tablet 5-10 mg 5-10 mg, Oral, Q4H PRN, Other, Moderate Pain (pain score 5-7), Severe Pain (pain score 8-10), Starting on Chelly 09/04/20 at 1338, Do not give both IV and ORAL opioids for pain. Give oral if patient is able to take oral medications., Post-op documented in this encounter Care Teams Occupational Therapy Director Relationship Specialty Start Date End Date Sahnnan Matthews DO PCP - General Family Practice 10/13/19 [address] [id number] documented as of this encounter
--- OUTSIDE RECORDS SUMMARY | 2022-04-25 22:30 | XMS_ITS | Encounter Summary ---
:1985 Author Organization [facility] Address [address] [place] [address] Care Team Providers Name Role Phone Shannan Matthews DO Primary Care Provider Reason for Visit Reason Comments Medication Questions Sertraline (Zoloft). Encounter Details Date Type Department Care Team Description 06/06/2020 Telephone [facility] Shannan Matthews DO Medication Questions Medicine [address] (Sertraline (Zoloft).) [address] [facility] [place] [address] [place] [address] [phone] (Wo rk) Social History Tobacco Use Types Packs/Day Years Used Date Smoking Tobacco: Never Smokeless Tobacco: Never Alcohol Use Standard Drinks/Week Comments Not Currently 0 (1 standard drink = 0.6 oz pure alcoho l) 2/week Sex Assigned at Date Recorded Not on file documented as of this encounter Nursing Notes Shannan Matthews DO - 06/06/2020 7:35 PM CST Script sent. Sent [employer] message to patient to inform her. R CLEANER Betty Roper RN - 06/06/2020 5:45 PM CST Clinician Action: New Order Medication - Sertraline. Clinician Next Step: Review associated dx/order for accuracy and sign pended orders, if appropriate Specific Request(s): 1. Pt states new Rx for Sertraline 100 mg was to be sent today. She has enough Sertraline 50 mg to last for the next 3 days. R CLEANER Diandra Hazel - 06/06/2020 5:23 PM CST Medications - Med Change / Question Is this a medication change or a general question? Med Question. What is your question or concern? Estefania/patient stated per the Telemedicine/Video Visit [id number]-[id number]-55/15/2021. This medication was going to be increased.Sertraline (Zoloft) and is not at the [facility]. What is the name and dose of the medication? Sertraline (Zoloft). 50 MG to 100 MG. How often do you take it? Daily. Who prescribed it? Shannan Matthews DO. If a prescription is needed, patient would like it filled at the pharmacy listed in Meds & Orders. Yes. (Verify the pharmacy patient would like to use for this request is highlighted in blue in Pharmacy Selection under Meds & Orders) Is it okay to leave a detailed message on your voicemail? Yes. (Advise caller that the PN call back number will end with [phone] or unknown) Please route to: Triage Pool R CLEANER documented in this encounter Plan of Treatment Not on filedocumented as of this encounter Visit Diagnoses Not on filedocumented in this encounter Care Teams Electric Transfer Operator Relationship Specialty Start Date End Date Shannan Matthews DO PCP - General Family Practice 10/13/19 [address] [id number] documented as of this encounter
--- OUTSIDE RECORDS SUMMARY | 2022-04-25 22:30 | XMS_ITS | Encounter Summary ---
:1985 Author Organization [facility] Address [address], [place] [address] Care Team Providers Name Role Phone CassieShannan Jose VALDIVIA Primary Care Provider Reason for Visit Procedure/Equipment (Routine) - Incomplete Specialty Diagnoses / Procedures Referred By Contact Refer red To Contact Diagnoses Right kidney stone Valentina Lockett MD Procedures XR Abd Flat/KUB 1 View [address] [place] [address] Referral ID Status Reason Start Date Expiration Date Visits V isits Requested Authorized [id number] Incomplete 04/10/2020 07/10/2021 1 1 Encounter Details Date Type Department Care Team Description 04/22/2020 Ancillary Procedure [facility] 3850 Luis Angel Lockett MD Right kidney stone Radiology [address] [place] [address] [place], [place] [address]nicole Roth [facility]. [facility] [address] [place] [address] [phone] Social History Tobacco Use Types Packs/Day Years [...] Priority Date/Time Associated Diagnosis Comme nts XR ABD FLAT/KUB 1 Routine 04/22/2020 10:26 AM Right kidney sto ne Results for this VIEW COAL LOADER procedure are i n the results section. documented in this encounter Results XR Abd Flat/KUB 1 View (04/22/2020 10:26 AM COAL LOADER) Anatomical Region Laterality Modality Abdomen Digital Radiography Specimen (Source) Anatomical Collection Method Collection Time Re ceived Time Location / / Volume Laterality 04/22/2020 10:18 AM COAL LOADER Impressions 04/22/2020 11:30 AM COAL LOADER COMPARISON: ??CT from 02/25/2020. FINDINGS: ??Overall, stone burden in the right kidney has decreased. Specifically, no appreciable staghorn calculus in the location where was seen previously. There are stones overlying the upper pole o f the right kidney measuring up to 0.5 c m. No definitive stones are seen in the left kidney, the expected course of the ureters, or in the urinary bladder. Bowel gas pattern is nonobstructive. Procedure Note Shiva Laird MD - 04/22/2020For matting of this note might be different from the original. IMPRESSION COMPARISON: CT from 02/25/2020. FINDINGS: Overall, stone burden in the r ight kidney has decreased. Specifically, no appreciable staghorn calculus in the location where was seen previously. There are stones overlying the upper pole of the right kidney measuring up to 0.5 cm. No defini tive stones are seen in the left kidney, the expected course of the ureters, or in the urinary bladder. Bowel gas pattern is nonobstructive. Valentina Lockett MD RAD GD documented in this encounter Visit Diagnoses Diagnosis Right kidney stone Calculus of kidney documented in this encounter Care Teams Weather Analyst Relationship Specialty Start Date End Date Shannan Matthews DO PCP - General Family Practice 10/13/19 [address] [place] [address] documented as of this encounter
--- OUTSIDE RECORDS SUMMARY | 2022-04-25 22:30 | XMS_ITS | Encounter Summary ---
:1985 Author Organization [facility] Address [address], [place] [address] Care Team Providers Name Role Phone Shannan Matthews DO Primary Care Provider Reason for Visit Procedure/Equipment (Routine) - Incomplete Specialty Diagnoses / Procedures Referred By Contact Refer red To Contact Procedures Provider, Foreign Images Foreign Image(S) CT 39[address] [facility] Abdomen/[place] [address] Referral ID Status Reason Start Date Expiration Date Visits V isits Requested Authorized [id number] Incomplete 07/29/2020 10/28/2021 1 1 Encounter Details Date Type Department Care Team Description 07/26/2020 Ancillary Procedure [facility] PACS Provider, Foreign [address] [place] [address] [address] [place] [address] Social History Tobacco Use Types Packs/Day Years [...] Name Priority Date/Time Associated Diagnosis Comme nts FOREIGN IMAGE(S) CT Routine 07/26/2020 10:55 AM R esults for this ABDOMEN/PELVIS PROFESSIONAL SOCCER PLAYER procedure are in the results section. documented in this encounter Results Foreign Image(S) CT Abdomen/Pelvis (07/26/2020 10:55 AM PROFESSIONAL SOCCER PLAYER) Specimen (Source) Anatomical Location Collection Method / Collectio n Time Received Time / Laterality Volume Narrative POCT - 07/29/2020 10:55 AM PROFESSIONAL SOCCER PLAYER These outside images have been uploaded into PACS. If the results were provided, they will be located in the pa gallito's chart under the Media or Imaging tab. Foreign Images Provider RAD NON-REPORTABLES Performing Organization Address City/State/ZIP Code Phon e Number POCT documented in this encounter Visit Diagnoses Not on filedocumented in this encounter Care Teams Science Technicians Relationship Specialty Start Date End Date Shannan Matthews DO PCP - General Family Practice 10/13/19 [address] [place] [address] documented as of this encounter
--- OUTSIDE RECORDS SUMMARY | 2022-04-25 22:30 | XMS_ITS | Encounter Summary ---
:1985 Author Organization [facility] Address [address] [place] [address] Care Team Providers Name Role Phone Shannan Matthews DO Primary Care Provider Encounter Details Date Type Department Care Team Description 05/20/2020 Lab Visit [facility] 3850 Calculus of upper urinary Laboratory tract [address] [place] [address] [place], [place] [address] Social History Tobacco Use Types Packs/Day Years Used Date Smoking Tobacco: Never Smokeless Tobacco: Never Alcohol Use Standard Drinks/Week Comments Not Currently 0 (1 standard drink = 0.6 oz pure alcoho l) 2/week Sex Assigned at Date Recorded Not on file documented as of this encounter Progress Notes Janie Franklin RN - 05/20/2020 11:30 AM CST Follow up 05/27, Frances Brenner. FIC RATE CLERK documented in this encounter Plan of Treatment Not on filedocumented as of this encounter Procedures Procedure Name Priority Date/Time Associated Diagnosis Comme nts INTACT PTH Routine 05/20/2020 11:39 AM Calculus of upper Res ults for this TRAFFIC RATE CLERK urinary tract procedure are in the results section. BASIC METABOLIC Routine 05/20/2020 11:39 AM Calculus of upper Results for this PANEL TRAFFIC RATE CLERK urinary tract procedure are in the results section. URIC ACID Routine 05/20/2020 11:39 AM Calculus of upper Res ults for this TRAFFIC RATE CLERK urinary tract procedure are in the results section. documented in this encounter Results Intact PTH (05/20/2020 11:39 AM TRAFFIC RATE CLERK) athologist Signature Intact PTH 66 10 - 100 05/20/2020 [facility] pg/mL 3:15 PM TRAFFIC RATE CLERK LABORATORY Specimen Anatomical Collection Method / Collection Time Recei doc Time (Source) Location / Volume Laterality Blood Venipuncture / 05/20/2020 11:39 0 Unknown AM TRAFFIC RATE CLERK 11:39 AM TRAFFIC RATE CLERK Valentina Lockett MD LAB_1 Performing Organization Address City/State/ZIP Code Phon e Number [facility] [address] [place] [address] (ABNORMAL) Uric Acid (05/20/2020 11:39 AM TRAFFIC RATE CLERK) athologist Signature Uric Acid 6.2 (H) 2.6 - 6.0 05/20/2020 [facility] mg/dL 12:06 PM TRAFFIC RATE CLERK 3850 LABORATORY Specimen Anatomical Collection Method / Collection Time Recei doc Time (Source) Location / Volume Laterality Blood Venipuncture / 05/20/2020 11:39 0 Unknown AM TRAFFIC RATE CLERK 11:39 AM TRAFFIC RATE CLERK Valentina Lockett MD LAB_1 Performing Organization Address City/[facility] Phon e Number [facility] [address] [place], [place] [phone] Basic Metabolic Panel (05/20/2020 11:39 AM TRAFFIC RATE CLERK) athologist Signature Sodium 140 136 - 145 05/20/2020 [facility] mmol/L 12:06 PM TRAFFIC RATE CLERK 3850 LABORATORY Potassium 4.3 3.5 - 5.1 05/20/2020 [facility] mmol/L 12:06 PM TRAFFIC RATE CLERK 3850 LABORATORY Chloride 104 98 - 109 05/20/2020 [facility] mmol/L 12:06 PM TRAFFIC RATE CLERK 3850 LABORATORY CO2 28 20 - 29 05/20/2020 [facility] mmol/L 12:06 PM TRAFFIC RATE CLERK 3850 LABORATORY Anion Gap 8 7 - 16 05/20/2020 [facility] mmol/L 12:06 PM TRAFFIC RATE CLERK 3850 LABORATORY Calcium 9.6 8.4 - 10.4 05/20/2020 [facility] mg/dL 12:06 PM TRAFFIC RATE CLERK 3850 LABORATORY BUN 15 7 - 26 05/20/2020 [facility] mg/dL 12:06 PM TRAFFIC RATE CLERK 3850 LABORATORY Creatinine 0.69 0.55 - 05/20/2020 [facility] 1.02 mg/dL 12:06 PM TRAFFIC RATE CLERK 3850 LABORATORY GFR, Estimated >60 >60 05/20/2020 [facility] mL/min/1.7 12:06 PM TRAFFIC RATE CLERK 3850 LABORATORY 3m2 Glucose 84 70 - 100 05/20/2020 [facility] mg/dL 12:06 PM TRAFFIC RATE CLERK 3850 LABORATORY Comment: The given reference range is fo r the fasting state. Non-fasting reference range for glucose is 70 - 180 mg/dL. Hours Fasting Unknown 05/20/2020 12:06 PM TRAFFIC RATE CLERK [facility] 3850 LABORATORY Specimen Anatomical Collection Method / Collection Time Recei doc Time (Source) Location / Volume Laterality Blood Venipuncture / 05/20/2020 11:39 0 Unknown AM TRAFFIC RATE CLERK 11:39 AM TRAFFIC RATE CLERK Valentina Lockett MD LAB_1 Performing Organization Address City/State/ZIP Code Phon e Number [facility] [address] [place], [place] [address] [address] documented in this encounter Visit Diagnoses Diagnosis Calculus of upper urinary tract documented in this encounter Care Teams Camp Nurse Relationship Specialty Start Date End Date Shannan Matthews DO PCP - General Family Practice 10/13/19 [address] [place] [address] documented as of this encounter
--- OUTSIDE RECORDS SUMMARY | 2022-04-25 22:30 | XMS_ITS | Encounter Summary ---
:1985 Author Organization [facility] Address [address], [place] [address] Care Team Providers Name Role Phone CassieShannan Jose VALDIVIA Primary Care Provider Encounter Details Date Type Department Care Team Description 05/26/[address] [facility] 3850 Calculus of upper urinary Laboratory tract [address] [place], [place] [address] Social History Tobacco Use Types Packs/Day Years [...] Procedure Name Priority Date/Time Associated Comments Diagnosis SUPERSATURATION PROFILE, Routine 05/25/2020 7:00 Calculus of u pper Results for this URINE 24 HR AM FELTING MACHINE OPERATOR urinary tract procedure are in the results section. documented in this encounter Results (ABNORMAL) Supersaturation Profile, Urine (05/25/2020 7:00 AM FELTING MACHINE OPERATOR) P athologist Signature Creatinine, 1156 700 - 1600 05/29/2020 [facility] Urine - per mg/d 3:36 PM FELTING MACHINE OPERATOR LABORATORIES 24h Creatinine, 68 mg/dL 05/29/2020 [facility] Urine - per 3:36 PM FELTING MACHINE OPERATOR LABORATORIES volume Oxalate, Urine 24 13 - 40 05/29/2020 [facility] MG/Day mg/d 3:36 PM FELTING MACHINE OPERATOR LABORATORIES Comment: REFERENCE INTERVAL: Oxalate, Urine - mg/ day Access complete set of age- and/or gende r-specific reference intervals for this test in the [facility] Test Directory (Roobiq). Oxalate, Urine MG/L 14 mg/L 05/29/2020 3:36 PM C [facility] Sulfate, Urine per 24 20 6 - 30 mmol/d 05/29/2020 3:36 PM FELTING MACHINE OPERATOR [facility] hours Comment: INTERPRETIVE INFORMATION: Sulfate, Urine Reference intervals for random urine drew ples have not been established. Test developed and characteristics deter mined by [facility]. See Compliance Statement B : Roobiq/ Sulfate, Urine per 12 mmol/L 05/29/2020 3:36 PM CS T VirtualU [facility] Volume pH, Urine 6.24 5.00 - 7.50 05/29/2020 3:36 PM FELTING MACHINE OPERATOR [employer] Urine Supersaturation, 4.25 05/29/2020 3:36 P M [facility] [employer] CAOX Comment: No increased risk of Calcium Oxalate Que culi. Urine Supersaturation, CAHPO4 2.29 05/29/2020 3:36 PM [facility] [employer] Comment: Increased risk for formation of Calcium Hydrogen Phosphate (Brushite) Calculi. Urine Supersaturation, UA CALC 0.35 3:36 PM [facility] Comment: No increased risk of Uric Acid Calculi. Urine Supersaturation Abnormal (A) 05/29/2020 3:36 PM [facility] [employer]Points Interpretation FELTING MACHINE OPERATOR Comment: Relative Supersaturation ? Reduced risk <::> Increased risk ? CaOx ? 0.0 ! ?4.25<--:: ? ! ?? 30.0 ? CaHPO4 ? (Brushite)0.0 ! ? ::--> 2.29 ?! ?4.0 ? Uric Acid ??0.6 ! ?0.35<--:: ? ! ?3.0 INTERPRETIVE INFORMATION: Supersaturatio n Profile, Urine The values determined for this specimen are placed on the chart to indicate the approximate risk associated with the particular concentrations. Increased risk is to the right of center; decreased risk, to the left. Relative higgins persaturation calculated for calcium oxalate, calcium hydrogen ph osphate (brushite) and uric acid calculi is displayed. Relative risk increases from the middle to the right side of this chart. Test developed and characteristics deter mined by [employer]. See Compliance Statement B : [employer]/CS Calcium, Urine per Volume 11.9 mg/dL 05/29/2020 3:3 6 PM FELTING MACHINE OPERATOR [facility] Calcium, Urine per 24 Hours 202 mg/d 05/29/2020 3 :36 PM FELTING MACHINE OPERATOR [facility] Comment: INTERPRETIVE INFORMATION: CALCIUM, URINE - mg/day Calcium-free diet: 5-40 mg/d Low calcium diet (800 mg/d or less): 50- 150 mg/d Average calcium diet (about 800 mg/d): 1 00-250 mg/d High calcium diet (800 mg/d or greater): greater than 250 mg/d Sodium, Urine per 112 mmol/L 05/29/2020 3:36 [facility] L [facility] Volume PM FELTING MACHINE OPERATOR Sodium, Urine per 24 190 51 - 286 05/29/2020 3:36 [facility] Hours mmol/d PM FELTING MACHINE OPERATOR Uric Acid, Urine per 24 653 250 - 750 mg/d 05/29/2020 3:36 [facility] Hours PM FELTING MACHINE OPERATOR Uric Acid, Urine per 38.4 mg/dL 05/29/2020 3:36 [facility] Volume PM FELTING MACHINE OPERATOR Magnesium, Urine per 5.2 mg/dL 05/29/2020 3:36 [facility] Volume PM FELTING MACHINE OPERATOR Magnesium, Urine per 24 88 12 - 199 mg/d 05/29/2020 3 :36 [facility] Hours PM FELTING MACHINE OPERATOR Phosphorus, Urine per 50 mg/dL 05/29/2020 3:36 [facility] Volume PM FELTING MACHINE OPERATOR Phosphorus, Urine per 850 400 - 1300 05/29/2020 3:36 A [facility] 24 Hours mg/d PM FELTING MACHINE OPERATOR Potassium, Urine per 23 mmol/L 05/29/2020 3:36 [facility] Volume PM FELTING MACHINE OPERATOR Potassium, Urine per 24 39 25 - 125 05/29/2020 3:36 [facility] Hours mmol/d PM FELTING MACHINE OPERATOR Chloride, Urine per 97 mmol/L 05/29/2020 3:36 [facility] Volume PM FELTING MACHINE OPERATOR Chloride, Urine per 24 165 140 - 250 05/29/2020 3:36 [facility] Hours mmol/d PM FELTING MACHINE OPERATOR EER Supersaturation See Note 05/29/2020 3:36 [facility] Profile, Urine PM FELTING MACHINE OPERATOR Comment: Access [facility] Enhanced Report using the mayra guardado below: -Direct access: [email or web address] Performed By: [facility] [address] [place] [id number] Corporate Services Manager: Lenore Rivera MD Total Volume 1700 mL 05/29/2020 3:36 PM [facility] FELTING MACHINE OPERATOR Hours Collected 24 hr 05/29/2020 3:36 PM [facility] FELTING MACHINE OPERATOR Citric Acid Urine - 305 mg/L 05/29/2020 3:36 PM [facility] Per Volume FELTING MACHINE OPERATOR Citric Acid Urine - 518 320 - 1240 mg/d 05/29/2020 3:3 6 PM [facility] Per 24H FELTING MACHINE OPERATOR Specimen Anatomical Collection Method Collection Time Receive d Time (Source) Location / / Volume Laterality Urine URINE SPECIMEN Non-blood 05/25/2020 7:00 AM 021 COLLECTION, 24 Collection / FELTING MACHINE OPERATOR 11:48 AM FELTING MACHINE OPERATOR HOURS / Unknown Unknown Valentina Lockett MD LAB_1 Performing Organization Address City/State/ZIP Code Phon e Number [address] [phone] documented in this encounter Visit Diagnoses Diagnosis Calculus of upper urinary tract documented in this encounter Care Teams Pulp Screen Operator Relationship Specialty Start Date End Date Shannan Matthews DO PCP - General Family Practice 10/13/19 [address] [place] [address] documented as of this encounter
--- OUTSIDE RECORDS SUMMARY | 2022-04-25 22:30 | XMS_ITS | Encounter Summary ---
:1985 Author Organization [facility] Address [address] [place] [address] Care Team Providers Name Role Phone Farnaz Matthewssey Jose VALDIVIA Primary Care Provider Reason for Visit Auth/Cert Specialty Diagnoses / Procedures Referred By Contact Refer red To Contact Diagnoses Kidney stone Procedures ureteroscopy, laser lithotripsy, ureteral stent placement, retrograde ureteropyelogram Referral ID Status Reason Start Date Expiration Date Visits Requ ested Visits Authorized [id number] 1 1 Encounter Details Date Type Department Care Team Description 09/04/2020 Ancillary Procedure [facility] AMB SURGERY C Payton Gomez, [address] [place] [address] [place] [address] [facility] [phone] [place] [address] (Wo rk) Social History Tobacco Use Types [...] Name Priority Date/Time Associated Diagnosis Comme nts HELENA INLIGHT CAMERA Routine 09/04/2020 10:42 AM Re sults for this IMAGES CDT procedure are i n the results section. documented in this encounter Results HELENA Inlight Camera Images (09/04/2020 10:42 AM CDT) Anatomical Region Laterality Modality Endoscopy Specimen (Source) Anatomical Location Collection Method / Collectio n Time Received Time / Laterality Volume Narrative 09/04/2020 10:42 AM CDT These images were obtained during a surg ical procedure. Payton Mejia MD RAD NON-REPORTABLES documented in this encounter Visit Diagnoses Not on filedocumented in this encounter Care Teams Location And Measurement Technician Relationship Specialty Start Date End Date Shannan Matthews DO PCP - General Family Practice 10/13/19 [address] [place] [address] documented as of this encounter
--- OUTSIDE RECORDS SUMMARY | 2022-04-25 22:30 | XMS_ITS | Encounter Summary ---
:1985 Author [facility] Address [address], [place] [address] Care Team Providers Name Role Phone Shannan Matthews Primary Care Provider Reason for Referral Procedure/Equipment (Routine) - Incomplete Specialty Diagnoses / Procedures Referred By Contact Refer red To Contact Diagnoses Kidney stone Payton Mejia MD Procedures Case Request OR - Urology Surgery: ureteroscopy, laser lithotripsy, ureteral stent placement, retrograde ureteropyelogram [address] [place], [place] [address] Referral ID Status Reason Start Date Expiration Date Visits V isits Requested Authorized [id number] Incomplete 08/28/2020 11/27/2021 1 1 Reason for Visit Reason Comments Follow-up, NOS Encounter Details Date Type Department Care Team Description 08/28/2020 Telemedicine Payton Alvares, Kidney s tone (Primary [place] [address] Dx) Urology [address] [facility] [address] [place] [address] [phone] (Wo rk) Social History Tobacco Use Types Packs/Day Years Used Date Smoking Tobacco: Never Smokeless Tobacco: Never Alcohol Use Standard Drinks/Week Comments Not Currently 0 (1 standard drink = 0.6 oz pure alcoho l) rare Sex Assigned at Date Recorded Not on file documented as of this encounter Progress Notes Payton Mejia MD - 08/28/2020 12:00 PM CDT NAME: ESTEFANIA MCKEON MR#: [id number] CSN: [id number] AUTHENTICATING CLINICIAN: Payton Mejia MD CONFIRM #: [id number] LOC: 517 CLINIC PROGRESS NOTE DATE OF VISIT: 08/28/2020 : 1985 HISTORY OF PRESENT ILLNESS: Estefania is a very pleasant 35-year-old woman with a history of kidney stones. The patient underwenta percutaneous nephrolithotomy with Dr. Lockett in March. She continued to have symptoms and underwent a CT scan in July at an outside provider. She states that she is still having pain and pressure on her right lower side. She does not know if she has ever felt better after the percutaneous nephrolithotomy or the stent after the procedure. On her CT scan, which I reviewed myself, the patient has hydronephrosis and multiple stones. Because of the hydronephrosis, I advised that she undergo a renal scan, which showed 33% function in her right kidney and a washout was 34 minutes. I had a good discussion with the patient. That right kidney is not doing great. She clearly has somedecreased function on the right side. She also has continued pain. It is hard to know if that pain is from the kidney or if it could possibly be from a different origin. The patient also underwent a [facility] test to ensure that this was not infection related. The [facility] test was negative, and so was a urinalysis in July at [facility]. These records were reviewed through Care Everywhere. DISCUSSION: I had a good discussion with the patient about where we go from here. I think, given that she still has some good function in that kidney and she is still having symptoms, we should at least try to clear the kidney of stones, put a stent in, and see if that improves her symptoms. The patient is open to this. ASSESSMENT: History of staghorn kidney stone with remaining stones and pain. PLAN: Right ureteroscopy, laser lithotripsy, and stent placement. The patient will start Cipro 4 days before the procedure to prevent any septic complications. We discussed the risks and benefits. Risks include, but not limited to, bleeding, infection, pain, risk of injuring the ureter or the kidney, surrounding organs, ureteral stricture, and the possibility that doing this procedure may or may not improve the patient's pain. After the procedure, I would like to repeat a renal scan to better understand the function of that kidney. Total time today was 40 minutes. Time was spent talking with the patient, reviewing her chart, reviewing her chart through Care Everywhere, discussing the situation with Frances Brenner, placing orders, scheduling surgery, and documentation. JMR:[id number] C: CONFIRM #: [id number] documented in this encounter Plan of Treatment Not on filedocumented as of this encounter Results 2019 Novel Coronavirus (COVID-19) (09/02/2020 9:15 AM CDT) [facility] Method Time Signature COVID-19 Not Not 09/03/2020 Ulule Interpretation Detected Detected 8:46 AM CENTRAL LAB CDT Specimen Anatomical Collection Method Collection Time Receive d Time (Source) Location / / Volume Laterality Swab (Source Non-blood 09/02/2020 9:15 AM Required) Collection / CDT 11:16 AM CDT Unknown Narrative [facility] - 09/03/2020 8:46 AM CDT Test performed by Bike Assembler Mediated Amplification. TMA has been shown to be equivalent to commercial real-time PCR t ests. This test has been authorized by the FDA under an Emergency Use Authorization (EUA) for use by authorized laboratories. Payton Mejia MD LAB_1 Performing Organization Address City/State/ZIP Code Phon e Number [facility] [address] [phone] documented in this encounter Visit Diagnoses Diagnosis Kidney stone - Primary Calculus of kidney documented in this encounter Care Teams General Manager Food Relationship Specialty Start Date End Date Shannan Matthews DO PCP - General Family Practice 10/13/[address] [place] [address] [place] [address] documented as of this encounter
--- OUTSIDE RECORDS SUMMARY | 2022-04-25 22:30 | XMS_ITS | Encounter Summary ---
:1985 Author Organization [facility] Address [address] [place] [address] Care Team Providers Name Role Phone Shannan Matthews Primary Care Provider Encounter Details Date Type Department Care Team Description 09/02/[address] [facility] Drive Up P5050, Drive-Up Kidney stone [address] [place], [place] [id number] Social History Tobacco Use Types Packs/Day Years [...] Date/Time Associated Comments Diagnosis 2019 NOVEL Routine 09/02/2020 9:15 AM Kidney stone Results f or this CORONAVIRUS CDT procedure are i n the results section. documented in this encounter Results 2019 Novel Coronavirus (COVID-19) (09/02/2020 9:15 AM CDT) [facility] gist Method Time Signature COVID-19 Not Not [facility]03[facility] Interpretation Detected Detected 8:46 AM CENTRAL LAB CDT Specimen Anatomical Collection Method Collection Time Receive d Time (Source) Location / / Volume Laterality Swab (Source Non-blood 09/02/2020 9:15 AM Required) Collection / CDT 11:16 AM CDT Unknown Narrative [facility] - 09/03/2020 8:46 AM CDT Test performed by [employer] Rep Mediated Amplification. TMA has been shown to be equivalent to commercial real-time PCR t ests. This test has been authorized by the FDA under an Emergency Use Authorization (EUA) for use by authorized laboratories. Payton Mejia MD LAB_1 Performing Organization Address City/State/ZIP Code Phon e Number [facility] [address] [address] documented in this encounter Visit Diagnoses Diagnosis Kidney stone Calculus of kidney documented in this encounter Care Teams Gospel Worker Relationship Specialty Start Date End Date Shannan Matthews DO PCP - General Family Practice 10/13/19 [address] [place] [address] documented as of this encounter
--- OUTSIDE RECORDS SUMMARY | 2022-04-25 22:30 | XMS_ITS | Encounter Summary ---
:1985 Author Organization [facility] Address [address] [place] [address] Care Team Providers Name Role Phone Shannan Matthews DO Primary Care Provider Reason for Visit Reason Comments FEVER BACK PAIN, LOW Encounter Details Date Type Department Care Team Description 07/26/2020 Nurse Triage Shannan Gu, FEVER; B ACK PAIN, LOW Medicine DO [address] [place] [address] AVE [phone] [place] [address] Social History Tobacco Use Types Packs/Day Years Used Date Smoking Tobacco: Never Smokeless Tobacco: Never Alcohol Use Standard Drinks/Week Comments Not Currently 0 (1 standard drink = 0.6 oz pure alcoho l) rare Sex Assigned at Date Recorded Not on file documented as of this encounter Nursing Notes Doris Trejo RN - 07/26/2020 8:18 AM CST Patient calling with right lower flank pain and fever of 101.6 (Ear) that started 07/25/20. Patient had a kidney stone removed from the same side in 05/11 and had stents placed. Patient is having similarpressure. Rates pain /10. Denies pain with urination and denies blood in urine. Problem list reviewed as related to this call. Reason for Disposition ? ? Fever > 100.4 F (38.0 C) Protocols used: FLANK [id number] L SPRAYER Laisha Carrasco V - 07/26/2020 8:15 AM CST Symptoms Describe your symptoms (if pain, include location): Right side back pain increased and fever is higher. Transferred to Nurse. When did they start? Additional comments (related to the above concern): [...] Triage Pool (only transfer if caller insists) L SPRAYER documented in this encounter Plan of Treatment Not on filedocumented as of this encounter Visit Diagnoses Not on filedocumented in this encounter Care Teams Tanbark Laborer Relationship Specialty Start Date End Date Shannan Matthews DO PCP - General Family Practice 10/13/19 [address] [address] documented as of this encounter
--- OUTSIDE RECORDS SUMMARY | 2022-04-25 22:30 | XMS_ITS | Encounter Summary ---
:1985 Author Organization [facility] Address [address] [place] [address] Care Team Providers Name Role Phone Shannan Matthews DO Primary Care Provider Reason for Visit Reason Comments FOLLOW-UP, TEST RESULTS Encounter Details Date Type Department Care Team Description 06/11/2020 Telephone Shannan Gu DO FOLLOW-UP, TEST RESULTS [address] [place] [address] [place] [address] [phone] (Wo rk) Social History Tobacco Use Types Packs/Day Years Used Date Smoking Tobacco: Never Smokeless Tobacco: Never Alcohol Use Standard Drinks/Week Comments Not Currently 0 (1 standard drink = 0.6 oz pure alcoho l) 2/week Sex Assigned at Date Recorded Not on file documented as of this encounter Nursing Notes Carolyn Amado RN - 06/11/2020 2:37 PM CST Spoke to patient. Calling for remaining lab outside of . Advised BMP results all within normal limits. Verbalized understanding. No further question/concerns. Mary Beth Larson - 06/11/2020 11:13 AM CST Test Results (Advise caller/patient can view test results in [facility], if enrolled) What test are you calling about? Lab Results Primary Chandelier Maker: Shannan Matthews, DO Who ordered the test? (include first & last name) Shannan Matthews, DO When and where was the test done? At the [facility], 06/06/20 Additional comments (related to the above concern): Pt called in to inquire about her Labs results, she stated that she is concerned because she hasn't heard back yet, and she would like a call back to discuss the results. Please Advise If a prescription is needed, patient would [...] or unknown) Please route to: Triage Pool ALT ROLLER OPERATOR documented in this encounter Plan of Treatment Not on filedocumented as of this encounter Visit Diagnoses Not on filedocumented in this encounter Care Teams Soil Fertility Extension Specialist Relationship Specialty Start Date End Date Shannan Matthews DO PCP - General Family Practice 10/13/19 [address] [id number] documented as of this encounter
--- OUTSIDE RECORDS SUMMARY | 2022-04-25 22:30 | XMS_ITS | Encounter Summary ---
:1985 Author Organization [facility] Address [address], [place] [address] Care Team Providers Name Role Phone Shannan Matthews Primary Care Provider Reason for Visit Reason Comments Follow-up, NOS Encounter Details Date Type Department Care Team Description 08/04/2020 Nursing Visit [place] Roth Nurse, P5400 Uro Dysuria (Primary Dx) Specialty Center - [address] Urology [facility] [address] [place] [address] [place], [place] [address] Social History Tobacco Use Types Packs/Day Years Used Date Smoking Tobacco: Never Smokeless Tobacco: Never Alcohol Use Standard Drinks/Week Comments Not Currently 0 (1 standard drink = 0.6 oz pure alcoho l) rare Sex Assigned at Date Recorded Not on file documented as of this encounter Progress Notes Louisa Li RN - 08/04/2020 1:00 PM CDT Pt. Arrives for a pathnostic urine sample. A randomly voided urine sample is collected. The sample is then combined with a ngmoconostGesplan specimen vial. A pathnostGesplan requisition form is completed and placed in a fed ex envelope. A call is placed to [employer] requesting a seed cone picker. documented in this encounter Plan of Treatment Not on filedocumented as of this encounter Visit Diagnoses Diagnosis Dysuria - Primary documented in this encounter Care Teams Pipe Line Walker Relationship Specialty Start Date End Date Shannan Matthews DO PCP - General Family Practice 10/13/19 [address] [address] documented as of this encounter
--- OUTSIDE RECORDS SUMMARY | 2022-04-25 22:30 | XMS_ITS | Encounter Summary ---
:1985 Author Organization [facility] Address [address] [place] [address] Care Team Providers Name Role Phone Shannan Matthews DO Primary Care Provider Reason for Visit Reason Comments POST-OP,EXAM Encounter Details Date Type Department Care Team Description 04/22/2020 Office Visit Valentina Huizar MD Staghorn kidney stones (Primary Dx); Specialty Center - [address] [email or web address] of upper urinary tract [address] [facility] [place] [id number] [phone] Social History Tobacco Use Types Packs/Day Years Used Date Smoking Tobacco: Never Smokeless Tobacco: Never Alcohol Use Standard Drinks/Week Comments Not Currently 0 (1 standard drink = 0.6 oz pure alcoho l) 2/week Sex Assigned at Date Recorded Not on file documented as of this encounter Progress Notes Valentina Lockett MD - 04/22/2020 12:00 PM CST NAME: ESTEFANIA MCKEON MR#: [id number] CSN: [id number] AUTHENTICATING CLINICIAN: Valentina Lockett MD CONFIRM #: [id number] LOC: 417 CLINIC PROGRESS NOTE DATE OF VISIT: 04/22/2020 : 1985 This 34-year-old white female underwent a right PCNL. It was for a large staghorn stone along with multiple other stones. We got all the stones out. She has not had a KUB yet. I performed cystoscopy and removed the stent. She has done well after surgery, and it was an outpatient procedure. I will have her get a KUB done today, and she will see Frances in about a month or so for metabolic evaluation. DIAGNOSIS: Right kidney staghorn stones. GZ:MEDQ C: CONFIRM #: [id number] GER CODE Valentina Lockett MD - 04/22/2020 9:45 AM CST This office note has been dictated. GER CODE documented in this encounter Plan of Treatment Not on filedocumented as of this encounter Results (ABNORMAL) Supersaturation Profile, Urine (05/25/2020 7:00 AM MANAGER CODE) athologist Signature Creatinine, 1156 700 - 1600 05/29/2020 [facility] Urine - per mg/d 3:36 PM MANAGER CODE LABORATORIES 24h Creatinine, 68 mg/dL 05/29/2020 [facility] Urine - per 3:36 PM MANAGER CODE LABORATORIES volume Oxalate, Urine 24 13 - 40 05/29/2020 [facility] MG/Day mg/d 3:36 PM MANAGER CODE LABORATORIES Comment: REFERENCE INTERVAL: Oxalate, Urine - mg/ day Access complete set of age- and/or gende r-specific reference intervals for this test in the [facility] Test Directory (Zooppa). Oxalate, Urine MG/L 14 mg/L 05/29/2020 3:[address] [facility] Sulfate, Urine per 24 20 6 - 30 mmol/d 05/29/2020 3:36 PM MANAGER CODE [facility] hours Comment: INTERPRETIVE INFORMATION: Sulfate, Urine Reference intervals for random urine drew ples have not been established. Test developed and characteristics deter mined by [facility]. See Compliance Statement B : [email or web address] Internet/CS Sulfate, Urine per 12 mmol/L 05/29/2020 3:36 PM CS T [facility] Volume pH, Urine 6.24 5.00 - 7.50 05/29/2020 3:36 PM MANAGER CODE [facility] Urine Supersaturation, 4.25 05/29/2020 3:36 P M MANAGER CODE [facility] CAOX Comment: No increased risk of Calcium Oxalate Que culi. Urine Supersaturation, CAHPO4 2.29 05/29/2020 3:36 PM MANAGER CODE [facility] Comment: Increased risk for formation of Calcium Hydrogen Phosphate (Brushite) Calculi. Urine Supersaturation, UA CALC 0.35 3:36 PM MANAGER CODE [facility] Comment: No increased risk of Uric Acid Calculi. Urine Supersaturation Abnormal (A) 05/29/2020 3:36 PM [facility] Interpretation MANAGER CODE Comment: Relative Supersaturation ? Reduced risk <::> [...] Test developed and characteristics deter mined by [facility]. See Compliance Statement B : [email or web address]/CS Calcium, Urine per Volume 11.9 mg/dL 05/29/2020 3:3 6 PM MANAGER CODE [facility] Calcium, Urine per 24 Hours 202 mg/d 05/29/2020 3 :36 PM MANAGER CODE [facility] Comment: INTERPRETIVE INFORMATION: CALCIUM, URINE - mg/day Calcium-free diet: 5-40 mg/d Low calcium diet (800 mg/d or less): 50- 150 mg/d Average calcium diet (about 800 mg/d): 1 00-250 mg/d High calcium diet (800 mg/d or greater): greater than 250 mg/d Sodium, Urine per 112 mmol/L 05/29/2020 3:36 [facility] Volume PM MANAGER CODE Sodium, Urine per 24 190 51 - 286 05/29/2020 3:36 [facility] Hours mmol/d PM MANAGER CODE Uric Acid, Urine per 24 653 250 - 750 mg/d 05/29/2020 3:36 [facility] Hours PM MANAGER CODE Uric Acid, Urine per 38.4 mg/dL 05/29/2020 3:36 [facility] Volume PM MANAGER CODE Magnesium, Urine per 5.2 mg/dL 05/29/2020 3:36 [facility] Volume PM MANAGER CODE Magnesium, Urine per 24 88 12 - 199 mg/d 05/29/2020 3 :36 [facility] Hours PM MANAGER CODE Phosphorus, Urine per 50 mg/dL 05/29/2020 3:36 [facility] Volume PM MANAGER CODE Phosphorus, Urine per 850 400 - 1300 05/29/2020 3:36 [facility] 24 Hours mg/d PM MANAGER CODE Potassium, Urine per 23 mmol/L 05/29/2020 3:36 [facility] Volume PM MANAGER CODE Potassium, Urine per 24 39 25 - 125 05/29/2020 3:36 [facility] Hours mmol/d PM MANAGER CODE Chloride, Urine per 97 mmol/L 05/29/2020 3:36 [facility] Volume PM MANAGER CODE Chloride, Urine per 24 165 140 - 250 05/29/2020 3:36 [facility] Hours mmol/d PM MANAGER CODE EER Supersaturation See Note 05/29/2020 3:36 [facility] Profile, Urine PM MANAGER CODE Comment: Access [facility] Enhanced Report using the mayra nk below: -Direct access: [email or web address] Performed By: [facility] [address] [place] [address] Subgrade Roller Operator: Lenore Rivera MD Total Volume 1700 mL 05/29/2020 3:36 PM [facility] MANAGER CODE Hours Collected 24 hr 05/29/2020 3:36 PM [facility] MANAGER CODE Citric Acid Urine - 305 mg/L 05/29/2020 3:36 PM [facility] Per Volume MANAGER CODE Citric Acid Urine - 518 320 - 1240 mg/d 05/29/2020 3:3 6 PM [facility] Per 24H MANAGER CODE Specimen Anatomical Collection Method Collection Time Receive d Time (Source) Location / / Volume Laterality Urine URINE SPECIMEN Non-blood 05/25/2020 7:00 AM 021 COLLECTION, 24 Collection / MANAGER CODE 11:48 AM MANAGER CODE HOURS / Unknown Unknown Valentina Lockett MD LAB_1 Performing Organization Address City/[facility]/ZIP Code Phon e Number [facility] [address] [place], [place] [phone] Intact PTH (05/20/2020 11:39 AM MANAGER CODE) athologist Signature Intact PTH 66 10 - 100 05/20/2020 [facility] pg/mL 3:15 PM MANAGER CODE LABORATORY Specimen Anatomical Collection Method / Collection Time Recei doc Time (Source) Location / Volume Laterality Blood Venipuncture / 05/20/2020 11:39 0 Unknown AM MANAGER CODE 11:39 AM MANAGER CODE Valentina Lockett MD LAB_1 Performing Organization Address City/[facility] Phon e Number [facility] [address] [place] [address] (ABNORMAL) Uric Acid (05/20/2020 11:39 AM MANAGER CODE) P athologist Signature Uric Acid 6.2 (H) 2.6 - 6.0 05/20/2020 [facility] mg/dL 12:06 PM MANAGER CODE 3850 LABORATORY Specimen Anatomical Collection Method / Collection Time Recei doc Time (Source) Location / Volume Laterality Blood Venipuncture / 05/20/2020 11:39 0 Unknown AM MANAGER CODE 11:39 AM MANAGER CODE Valentina Lockett MD LAB_1 Performing Organization Address City/State/ZIP Code Phon e Number [facility] [phone] [address] Basic Metabolic Panel (05/20/2020 11:39 AM MANAGER CODE) P athologist Signature Sodium 140 136 - 145 05/20/2020 [facility] mmol/L 12:06 PM MANAGER CODE 3850 LABORATORY Potassium 4.3 3.5 - 5.1 05/20/2020 [facility] mmol/L 12:06 PM MANAGER CODE 3850 LABORATORY Chloride 104 98 - 109 05/20/2020 [facility] mmol/L 12:06 PM MANAGER CODE 3850 LABORATORY CO2 28 20 - 29 05/20/2020 [facility] mmol/L 12:06 PM MANAGER CODE 3850 LABORATORY Anion Gap 8 7 - 16 05/20/2020 [facility] mmol/L 12:06 PM MANAGER CODE 3850 LABORATORY Calcium 9.6 8.4 - 10.4 05/20/2020 [facility] mg/dL 12:06 PM MANAGER CODE 3850 LABORATORY BUN 15 7 - 26 05/20/2020 [facility] mg/dL 12:06 PM MANAGER CODE 3850 LABORATORY Creatinine 0.69 0.55 - 05/20/2020 [facility] 1.02 mg/dL 12:06 PM MANAGER CODE 3850 LABORATORY GFR, Estimated >60 >60 05/20/2020 [facility] mL/min/1.7 12:06 PM MANAGER CODE 3850 LABORATORY 3m2 Glucose 84 70 - 100 05/20/2020 [facility] mg/dL 12:06 PM MANAGER CODE 3850 LABORATORY Comment: The given reference range is fo r the fasting state. Non-fasting reference range for glucose is 70 - 180 mg/dL. Hours Fasting Unknown 05/20/2020 12:[address] [facility] [address]50 LABORATORY Specimen Anatomical Collection Method / Collection Time Recei doc Time (Source) Location / Volume Laterality Blood Venipuncture / 05/20/2020 11:39 0 Unknown AM MANAGER CODE 11:39 AM MANAGER CODE Valentina Lockett MD LAB_1 Performing Organization Address City/State/ZIP Code Phon e Number [facility] [address] [place] [address] [address] documented in this encounter Visit Diagnoses Diagnosis Staghorn kidney stones - Primary Calculus of kidney Calculus of upper urinary tract documented in this encounter Administered Medications Inactive Administered Medications - up to 3 most recent administrations Medication Order MAR Action Action Date Dose Rate Site ciprofloxacin (CIPRO) tablet 500 mg Given 04/22/2020 10:08 AM 500 mg 500 mg, Oral, ONCE, On Tue04/22/20 MANAGER CODE at 1030, For 1 dose, Do not give within 2 hours of calcium, iron, magnesium supplements or antacids. Hold enteral feedings 1 hour before and 1 hour after dose. NG/OGT: Crush immediate-release tablet and mix with water. , Indications: Perioperative Pharmacoprophylaxis documented in this encounter Care Teams Electronics Processing Supervisor Relationship Specialty Start Date End Date Shannan Matthews DO PCP - General Family Practice 10/13/19 [address] [address] documented as of this encounter
--- OUTSIDE RECORDS SUMMARY | 2022-04-25 22:30 | XMS_ITS | Encounter Summary ---
:1985 Author Organization [facility] Address [address], [place] [address] Care Team Providers Name Role Phone Farnaz Matthewssey Jose VALDIVIA Primary Care Provider Reason for Referral Procedure/Equipment (Routine) - Incomplete Specialty Diagnoses / Procedures Referred By Contact Refer red To Contact Diagnoses Hydronephrosis of right kidney Frances Brenner APRN, Procedures NM Renogram With Lasix Flow/Function BUSINESS UNIT DIRECTOR [address] [place], [place] [address] Referral ID Status Reason Start Date Expiration Date Visits V isits Requested Authorized [id number] Incomplete 07/29/2020 10/28/2021 6 6 YTICAL ENGINEER Reason for Visit Procedure/Equipment (Routine) - Incomplete Specialty Diagnoses / Procedures Referred By Contact Refer red To Contact Diagnoses Hydronephrosis of right kidney Frances Brenner APRN, Procedures NM Renogram With Lasix Flow/Function BUSINESS UNIT DIRECTOR [address] [place], [place] [address] Referral ID Status Reason Start Date Expiration Date Visits V isits Requested Authorized [id number] Incomplete 07/29/2020 10/28/2021 6 6 Encounter Details Date Type Department Care Team Description 07/31/2020 Hospital Encounter [facility] Frances Kate Hydronephrosis of Medicine M, STEAM ENGINEER, BUSINESS UNIT DIRECTOR right kidney [address] [facility] [address] [place] [address] [phone] Social History Tobacco Use Types Packs/Day Years [...] - - Temperature - - Respiratory Rate - - Oxygen Saturation - - Inhaled Oxygen Concentration - - Weight 77.1 kg (170 lb) 07/31/2020 3:00 PM ANALYTICAL ENGINEER Height - - Body Mass Index 26.63 07/25/2020 3:20 PM ANALYTICAL ENGINEER documented in this encounter Medications at Time of Discharge Medication Sig Dispensed Refills Start Date End Date cetirizine (ZYRTEC) 10 MG Take 10 mg by 0 tablet mouth daily. SUMAtriptan (IMITREX) 50 MG Take 1 Tablet by 9 Tablet 2 tabletIndications: Headaches mouth as needed for Migraine. May repeat one tablet after 2 hours if needed. Maximum 4 tabs/24 hours and 9 days/month ciprofloxacin (CIPRO) 500 MG Take 1 Tablet by 14 Tablet 0 0 07/26/2020 08/02/2020 tablet mouth two times a day for 7 days. ghohsxdnvs-jxbaxklyaxnji-rww Take 1 Tablet by 10 Tablet 0 1 07/20/2019 12/14/2021 feine (FIORICET) 50-325-40 mouth every 4 MG tabletIndications: hours as needed Headaches for Pain. hydroCHLOROthiazide (ORETIC) Take 1 Tablet by 90 Tablet 3 0 06/17/2020 08/30/2020 12.5 MG tablet mouth daily. propranolol (INDERALLA) 80 Take 1 Capsule 90 Capsule 3 08/2109/17/2020 MG 24 hour release by mouth daily. capsuleIndications: Headaches, Essential hypertension (HRC) sertraline (ZOLOFT) 100 MG Take 1/2 tablet 90 Tablet 3 05/2308/03/2021 tablet for one week, then increase to 1 tablet daily. documented as of this encounter Progress Notes Payton Mejia MD - 07/31/2020 2:30 PM CST More function than I thought there would be. I think the pathnostics would be a good place to continue and then ureteroscopy to try to clear the kidney a little more. Do you want to have her follow up with me? YTICAL ENGINEER Diane Sheppard RN - 07/31/2020 2:30 PM CST Called and notified patient. She agreed to proceed with pathnostics. Scheduled pt for [place] on 08/04/20. YTICAL ENGINEER Frances Brenner APRN, BUSINESS UNIT DIRECTOR - 07/31/2020 2:30 PM CST Can you also set up a follow up with Dr. Mejia to discuss surgery to remove stones/next step. YTICAL ENGINEER Diane Sheppard RN - 07/31/2020 2:30 PM CST Patient has been scheduled for 08/28/2020. YTICAL ENGINEER documented in this encounter Plan of Treatment Not on filedocumented as of this encounter Procedures Procedure Name Priority Date/Time Associated Diagnosis Comme nts NM RENOGRAM WITH Routine 07/31/2020 3:25 PM Hydronephrosis of right Results for this LASIX ANALYTICAL ENGINEER kidney procedure are i n FLOW/FUNCTION the results section. documented in this encounter Results NM Renogram With Lasix Flow/Function (07/31/2020 3:25 PM ANALYTICAL ENGINEER) Anatomical Region Laterality Modality Abdomen Nuclear Medicine Specimen (Source) Anatomical Collection Method Collection Time Re ceived Time Location / / Volume Laterality 07/31/2020 2:17 PM ANALYTICAL ENGINEER Impressions 07/31/2020 3:48 PM ANALYTICAL ENGINEER COMPARISON: Correlation made with CT from 07/27/2019 TECHNIQUE: The procedure was performed w ith 10.65 mCi of T99m labeled MAG 3. An 8.6 mg of Lasix was administered at 1 minute. RESULTS: ANGIOGRAPHIC PHASE: Prompt symmetric perfusion to both kidne ys. ??Renogram images show no significant asymmetry in renal size. WHOLE KIDNEY RELATIVE RENAL FUNCTION (2- 3 minute uptake %): Left: 66.3% ?Right: 33.7% CORTICAL PHASE: Qualitative delayed uptake in the superi or pole of the right kidney, corresponding to a dilated upper pole calyces. The time to peak is: Left: 3.6 minutes ? R ight: 7.1 minutes (Normal is less than 5 minutes.) Right-sided superior pole pyelonephritis . Normal left-sided excretion normal- appearing right lower pole excretion: The cortical:20 minute to peak ratio is: Left: 23% ? Right: 84 % (Normal is less than 30%.) WASHOUT PHASE: The diuretic T1/2 is: Left 4.5 minutes. ?Right 34.4 minutes. (Normal is less than 10 minutes, equivoc al 10-20 minutes, abnormal greater than 20 minutes.) POST-VOID: No significant ??post void urinary bladd er residual volume. After voiding, there is retention of con trast in the right upper pole dilated calyces. CONCLUSION: Marked upper pole hydronephr osis/obstruction and decreased right renal function as described above. Procedure Note Jayden Salazar MD - 07/31/2020Format ting of this note might be different from the original. IMPRESSION COMPARISON: Correlation made with [facility] 07/27/2019 TECHNIQUE: The procedure was performed w ith 10.65 mCi of T99m labeled MAG 3. An 8.6 mg of Lasix was administered at 1 minute. RESULTS: ANGIOGRAPHIC PHASE: Prompt symmetric perfusion to both kidne ys. Renogram images show no significant asymmetry in renal size. WHOLE KIDNEY RELATIVE RENAL FUNCTION (2- 3 minute uptake %): Left: 66.3% Right: 33.7% CORTICAL PHASE: Qualitative delayed uptake in the superi or pole of the right kidney, corresponding to a dilated upper pole calyces. The time to peak is: Left: 3.6 minutes Right: 7.1 minutes (Normal is less than 5 minutes.) Right-sided superior pole pyelonephritis . Normal left-sided excretion normal- appearing right lower pole excretion: The cortical:20 minute to peak ratio is: Left: 23% Right: 84% (Normal is less than 30%.) WASHOUT PHASE: The diuretic T1/2 is: Left 4.5 minutes. Right 34.4 minutes. (Normal is less than 10 minutes, equivoc al 10-20 minutes, abnormal greater than 20 minutes.) POST-VOID: No significant post void urinary bladder residual volume. After voiding, there is retention of con trast in the right upper pole dilated calyces. CONCLUSION: Marked upper pole hydronephr osis/obstruction and decreased right renal function as described above. Frances Brenner APRN, BUSINESS UNIT DIRECTOR RAD NM documented in this encounter Visit Diagnoses Diagnosis Hydronephrosis of right kidney Hydronephrosis documented in this encounter Administered Medications Inactive Administered Medications - up to 3 most recent administrations Medication Order MAR Action Action Date Dose Rate Site furosemide (LASIX) injection 38.6 Given 07/31/2020 2:40 PM ANALYTICAL ENGINEER 3 8.6 mg mg 38.6 mg, Intravenous, ONCE, On Chelly 07/31/20 at 1515, For 1 dose, IV Push maximum rate is 20mg/min. IVPB to be infused over 15 minutes. , Radiology sodium chloride 0.9% injection 20 mL Given 07/31/2020 2:38 PM ANALYTICAL ENGINEER 20 mL 20 mL, Intravenous, ONCE, On Chelly 07/31/20 at 1515, For 1 dose, For line care., Radiology technetium TC-99M mertiatide Given 07/31/2020 2:38 PM ANALYTICAL ENGINEER 10.65 millicuries (TECHNESCAN MAG3) injection kit 10.65 millicurie 10.65 millicurie, Intravenous, ONCE, On Chelly 07/31/20 at 1515, For 1 dose, Radiology documented in this encounter Care Teams Paint And Table Edger Relationship Specialty Start Date End Date Sand, Shannan A, DO PCP - General Family Practice 10/13/19 [address] [id number] documented as of this encounter
--- OUTSIDE RECORDS SUMMARY | 2022-04-25 22:30 | XMS_ITS | Encounter Summary ---
:1985 Author Organization [facility] Address [address], [place] [address] Care Team Providers Name Role Phone Shannan Matthews DO Primary Care Provider Reason for Visit Auth/Cert Specialty Diagnoses / Procedures Referred By Contact Refer red To Contact Diagnoses Kidney stone Procedures ureteroscopy, laser lithotripsy, ureteral stent placement, retrograde ureteropyelogram Referral ID Status Reason Start Date Expiration Date Visits Requ ested Visits Authorized [id number] 1 1 Encounter Details Date Type Department Care Team Description 09/04/2020 Surgery [facility] SURGERY Payton Mejia, ure teroscopy, ureteral CTR MD stent placement, [address] [place], [place] [address] ureteropyelogram [address] [place], [place] [phone] (Wo rk) Social History Tobacco Use Types Packs/Day Years Used Date Smoking Tobacco: Never Smokeless Tobacco: Never Alcohol Use Standard Drinks/Week Comments Not Currently 2 (1 standard drink = 0.6 oz pure alcoho l) rare Sex Assigned at Date Recorded Not on file documented as of this encounter Last Filed Vital Signs Vital Sign Reading Time Taken Comments Blood Pressure 114/90 09/04/2020 10:31 AM CDT Pulse 75 09/04/2020 10:31 AM CDT Temperature 36.7 ??C (98.1 ??F) 09/04/2020 10:31 AM CDT Respiratory Rate 16 09/04/2020 10:31 AM CDT Oxygen Saturation 97% 09/04/2020 10:31 AM CDT Inhaled Oxygen Concentration - - Weight [...] please contact me or my nurse at [phone] or leave a message at [phone]. THINGS TO BE WORRIED ABOUT: Go to [...] Maximum 4 tabs/24 hours and 9 days/month rxaztnkauf-mmlnoadirupej-rbr Take 1 Tablet by 10 Tablet 0 [...] AM CDT PPA call completed by calling [phone] and spoke to patient. Advised of arrival time 1015. Reviewed pre-procedure questions, detailed instructions with NPO guidelines and address given. All questions answered, no other needs at this time. documented in this encounter H&P Notes Payton Mejia MD - 09/04/2020 11:15 AM CDT [facility] Interval History and Physical Note The attached H&P has been reviewed. The patient was examined. No change observed. Source Note - Rosemarie Fuentes APRN, CNP - 08/30/2020 10:40 AM CDT PREOPERATIVE ASSESSMENT Date of Service: 08/30/2020 Date of : 1985 Age: 35 y.o. Sex: female Preoperative Evaluation completed by: Rosemarie N Thiner, STRAP MACHINE OPERATOR, CARDIOLOGY NURSE Primary care physician: Shannan Matthews, DO [phone] CHIEF COMPLAINT Pre-Operative Evaluation ANTICIPATED PROCEDURE Chief Complaint Patient presents with ??? PRE-OP EXAM 09/04 at [facility] Procedure: ureteroscopy, laser lithotripsy, ureteral stent [...] Outpatient Medications Medication Sig Dispense Refill ??? rgufdzdxno-myxtxifqrpsbx-injyepcp (FIORICET) 50-325-40 MG tablet Take 1 Tablet [...] done: Yes: date and results: 07/26/2020 at [facility] available in Care everywhere Creatinine is 0.84, [...] 2:32 PM CDT NAME: ESTEFANIA MCKEON MR#: [id number] CSN: [id number] AUTHENTICATING CLINICIAN: Payton Mejia MD CONFIRM #: [id number] LOC: 1 OPERATIVE REPORT DATE OF OPERATION: [...] identification and the procedure were confirmed. The 22-Cypriot cystoscope was placed in the patient's urethra [...] in the bladder. I then placed a 6-Cypriot 28 cm stent over the wire. This [...] help with some of the patient's symptoms. Lore took the TigerTail and manipulated it until the wire was in the upper pole. I then back-loaded the wire on the cystoscope and placed a 6-Cypriot multilink stent. The wire was removed and a good coil was appreciated in the upper pole of the kidney by fluoroscopy and in the bladder. Patient's bladder was drained. A Uro-Jet was placed. She tolerated the procedure well. She was transferred to the recovery room in stable condition. JMR:[id number] C: CONFIRM #: [id number] Payton Mejia MD - 09/04/2020 1:28 PM [...] were obtained during a surg ical procedure. Payotn Mejia MD RAD NON-REPORTABLES documented in this encounter Visit Diagnoses Diagnosis Kidney stone - Primary Calculus of kidney Kidney stone Calculus of kidney documented in this encounter Admitting Diagnoses Diagnosis Kidney stone Calculus of kidney documented in this encounter Administered Medications Inactive Administered Medications - up to 3 most recent administrations Medication Order MAR Action Action Date Dose Rate Site fentaNYL (SUBLIMAZE) injection 25-50 mcg 25-50 mcg, Intravenous, [id number], Other, 25 mcg for Mi ld to [...] (SUBLIMAZE) injection 25-50 mcg 25-50 mcg, Intravenous, [id number], Pain, Procedure, Starting on Chelly 09/04/20 at [...] (VERSED) injection 1-2 mg 1-2 mg, Intravenous, [id number], Sedation, Anxiety, Proc edure, Starting on Chelly [...] 1221 (Given - Provider: Harsha Fam APRN, TOBACCO STEMMER MACHINE) 2 g, Intravenous, Administer over 30 Min [...] (SUBLIMAZE) injection 25-50 mcg 25-50 mcg, Intravenous, [id number], Other, 25 mcg for Mild to Moderate Pain (pain score 1-5), 50 mcg for Moderate to Severe Pain (pain score 6 and above) in the immediate postop period when faster on-set, short acting agent is desired., Startin g on [facility] 09/04/20 at 0709, Administer every 5 minutes [...] (SUBLIMAZE) injection 25-50 mcg 25-50 mcg, Intravenous, [id number], Pain, Procedure, Starting on [facility] 09/04/20 at 1019, For 2 doses, As directed by anesthesiologist, Pre-op HYDROmorphone (DILAUDID) injection 0.2-0.3 mg 0.2-0.3 mg, Intravenous, Q10MIN PRN, Zenobia n, 0.2 mg IV for Mild to Moderate pain (pain score 1-5), 0.3 mg IV for Moderate to Severe pain (pain score 6 and above) in the immediate postop period when longer acting agent is desired., Starting on [facility] 09/04/20 at 0709, Maximum cumulative dose is 2 mg in PACU, call Anesthesiologist if additional dosage needed. For patients with a regional, spinal, or local ane sthetic, may give for anticipated pain a s the anesthetic wears off., PACU/Recovery HYDROmorphone (DILAUDID) injection 0.3-0.5 mg 0.3-0.5 mg, Intravenous, Q3H PRN, Other, Severe Pain (pain score 8-10) if patient unable to take PO, Starting on Chelly 09/04/20 at 1338, Severe Pain (pain score 8-10) if patient unable to take PO. Hold if on BOILERHOUSE MECHANIC, Post-op iopamidol (ISOVUE-300) 61 % injection 1239 (Given - Provider: Payton Mejia MD - Comment: right ureter) ONCE PRN, Starting on Chelly 09/04/20 at 1239, Intra-op labetalol (NORMODYNE) injection 5 mg 5 mg, Intravenous, Q10MIN PRN, Other, Hi gh Blood Pressure, MAX 5 doses, hold for HR <50, Starting on Chelly 09/04/20 at 0709, For 5 doses, Call Anesthesiologist before administration. Give as directed by Anesthesiologist., PACU/Recovery lidocaine (UROJET) 2 % prefilled syringe 1323 (Given - Provider: Payton Mejia MD) ONCE PRN, Starting on Chelly 09/04/20 at 1323, Intra-op midazolam (VERSED) injection 1-2 mg 1-2 mg, Intravenous, [id number], Sedation, Anxiety, Procedure, Starting on Chelly 09/04/20 at 1019, As directed by anesthesiologist MAX Dose 2mg, Pre-op naloxone (NARCAN) injection 0.08 mg 0.08 mg, Intravenous, PRN, Other, For re spiratory rate less than 8/minute or patient difficult to arouse, Starting on Chelly 09/04/20 at 0709, May repeat every 3 [...] Post-op documented in this encounter Care Teams Block And Case Maker Relationship Specialty Start Date End Date Shannan Matthews DO PCP - General Family Practice 10/13/19 [address] [id number] documented as of this encounter
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
--- OUTSIDE RECORDS SUMMARY | 2022-04-25 22:30 | XMS_ITS | Encounter Summary ---
:1985 Author Organization [employer] Address [address] [place] [address] Care Team Providers Name Role Phone Shannan Matthews Primary Care Provider Encounter Details Date Type Department Care Team Description 06/06/2020 Lab Visit [facility] Urinary frequency; [address] Generalized edema [place] [id number] Social History Tobacco Use Types Packs/Day Years [...] Name Priority Date/Time Associated Diagnosis Comme nts URINALYSIS ROUTINE, STAT 06/06/2020 4:36 PM Urinary frequen cy Results for this MICRO/CULTURE IF POS ASSURANCE MANAGER procedu re are in the results section. BASIC METABOLIC Routine 06/06/2020 4:36 PM Generalized edema R esults for this PANEL ASSURANCE MANAGER procedure are i n the results section. UA MICRO STAT 06/06/2020 4:36 PM Urinary frequency Resu lts for this ASSURANCE MANAGER procedure are i n the results section. documented in this encounter Results (ABNORMAL) UA Micro (06/06/2020 4:36 PM ASSURANCE MANAGER) [facility] Method Time Signature Red Blood 0-3 0 - 3 06/06/2020 [id number] Cells /HPF 5:33 PM ASSURANCE MANAGER LAB[facility]AT[facility] White Blood 0-5 0 - 5 06/06/2020 [facility] Cells /HPF 5:33 PM ASSURANCE MANAGER LABORATORY Squamous Occasional (A) None Seen 06/06/2020 [facility] Epithelial /HPF 5:33 PM ASSURANCE MANAGER LABORATORY Cells Specimen Anatomical Collection Method Collection Time Receive d Time (Source) Location / / Volume Laterality Urine URINE SPECIMEN Non-blood 06/06/2020 4:36 PM 021 4:36 COLLECTION, CLEAN Collection / ASSURANCE MANAGER PM ASSURANCE MANAGER CATCH / Unknown Unknown Shannan Matthews LAB_1 Performing Organization Address City/State/ZIP Code Phon e Number [id number] [address] [facility] [place] [address] Basic Metabolic Panel (06/06/2020 4:36 PM ASSURANCE MANAGER) P athologist Signature Sodium 137 136 - 145 06/06/2020 [facility] mmol/L 8:38 PM ASSURANCE MANAGER LABORATORY Potassium 3.9 3.5 - 5.1 06/06/2020 [facility] mmol/L 8:38 PM ASSURANCE MANAGER LAB[facility]AT[facility] Chloride 104 98 - 109 06/06/2020 [facility] mmol/L 8:38 PM ASSURANCE MANAGER LAB[facility] CO2 22 20 - 29 06/06/2020 [facility] mmol/L 8:38 PM ASSURANCE MANAGER LAB[facility] Anion Gap 11 7 - 16 06/06/2020 [facility] mmol/L 8:38 PM ASSURANCE MANAGER [facility] Calcium 9.6 8.4 - 10.4 06/06/2020 [facility] mg/dL 8:38 PM ASSURANCE MANAGER LAB[facility]AT[facility] BUN 13 7 - 26 06/06/2020 [facility] mg/dL 8:38 PM ASSURANCE MANAGER LAB[facility]AT[facility] Creatinine 0.70 0.55 - 06/06/2020 [facility] 1.02 mg/dL 8:38 PM ASSURANCE MANAGER [facility]AT[facility] GFR, Estimated >60 >60 06/06/2020 [facility] mL/min/1.7 8:38 PM ASSURANCE MANAGER LAB[facility] 3m2 Glucose 80 70 - 100 06/06/2020 [facility] mg/dL 8:38 PM ASSURANCE MANAGER LAB[facility] Comment: The given reference range is fo r the fasting state. Non-fasting reference range for glucose is 70 - 180 mg/dL. Hours Fasting 4 06/06/2020 8:38 PM ASSURANCE MANAGER [facility] Specimen Anatomical Collection Method / Collection Time Recei doc Time (Source) Location / Volume Laterality Blood Venipuncture / 06/06/2020 4:36 06/06/2020 4:36 Unknown PM ASSURANCE MANAGER PM ASSURANCE MANAGER Shannan Matthews DO LAB_1 Performing Organization Address City/State/ZIP Code Phon e Number [facility] [address] [place] [address] [facility] [address] [place] [address], RUST (ABNORMAL) Urinalysis Routine, Micro/Culture if Pos (06/06/2020 4:36 PM ASSURANCE MANAGER) [facility] Method Time Signature Urine Culture Urinalysis 06/06/2020 [email or web address] Comment results do not 5:33 PM ASSURANCE MANAGER LABORATORY meet criteria for urine culture reflex. Urine Color Straw Straw-Yello 06/06/2020 [facility] w 5:33 PM ASSURANCE MANAGER LABORATORY Urine Clarity Clear Clear 06/06/2020 [facility] 5:33 PM ASSURANCE MANAGER LAB[facility]AT[facility] Specific 1.020 1.005 - 06/06/2020 [facility] [place], 1.030 5:33 PM ASSURANCE MANAGER LABORATORY Urine PH Urine 6.0 5.0 - 8.0 06/06/2020 [facility] 5:33 PM ASSURANCE MANAGER LABORATORY Protein, Negative Neg/Trace 06/06/2020 [facility] Urine Qual 5:33 PM ASSURANCE MANAGER LABORATORY (mg/dL) Glucose Urine Negative Negative 06/06/2020 [facility] Qual (mg/dL) 5:33 PM ASSURANCE MANAGER LABORATORY Ketones, Negative Negative 06/06/2020 [facility] Urine (mg/dL) 5:33 PM ASSURANCE MANAGER LABORATORY Urobilinogen, 0.2 <2.0 06/06/2020 [facility] Urine (EU/dL) 5:33 PM ASSURANCE MANAGER LABORATORY Bilirubin Negative Negative 06/06/2020 [facility] Urine 5:33 PM ASSURANCE MANAGER LABORATORY Blood, Urine Moderate (A) Neg/Trace 06/06/2020 [facility] 5:33 PM ASSURANCE MANAGER LABORATORY Nitrite Urine Negative Negative 06/06/2020 [facility] 5:33 PM ASSURANCE MANAGER LABORATORY Leukocyte Negative Negative 06/06/2020 [facility] Est. 5:33 PM ASSURANCE MANAGER LABORATORY Urine Source Clean Catch 06/06/2020 [facility] 5:33 PM ASSURANCE MANAGER LAB[facility]ATORY Specimen Anatomical Collection Method Collection Time Receive d Time (Source) Location / / Volume Laterality Urine URINE SPECIMEN Non-blood 06/06/2020 4:36 PM 021 4:36 COLLECTION, CLEAN Collection / ASSURANCE MANAGER PM ASSURANCE MANAGER CATCH / Unknown Unknown Shannan Matthews DO LAB_1 Performing Organization Address City/State/ZIP Code Phon e Number [id number] [address] [facility] [place] [address] documented in this encounter Visit Diagnoses Diagnosis Urinary frequency Generalized edema Edema documented in this encounter Care Teams Staff Electrical Engineer Relationship Specialty Start Date End Date Shannan Matthews DO PCP - General Family Practice 10/13/19 [address] [place] [id number] documented as of this encounter
--- OUTSIDE RECORDS SUMMARY | 2022-04-25 22:30 | XMS_ITS | Encounter Summary ---
:1985 [facility] Address [address], [place] [address] Care Team Providers Name Role Phone CassieShannan Jose VALDIVIA Primary Care Provider Reason for Visit Procedure/Equipment (Routine) - Incomplete Specialty Diagnoses / Procedures Referred By Contact Refer red To Contact Procedures Payton Mejia MD FL C Arm [address] [place], [place] [address] Referral ID Status Reason Start Date Expiration Date Visits V isits Requested Authorized [id number] Incomplete 08/29/2020 11/28/2021 1 1 Encounter Details Date Type Department Care Team Description 09/04/2020 Ancillary Procedure [facility] [address] MD Radiology [address] [address] [place] [address] [phone] (Wo rk) Social History Tobacco Use Types [...] Name Priority Date/Time Associated Diagnosis Comme nts FL C ARM Routine 09/04/2020 1:39 PM Results f or this CDT procedure are i n the results section . documented in this encounter Results FL C Arm (09/04/2020 1:39 PM CDT) Anatomical Region Laterality Modality Radio Fluoroscopy Specimen (Source) Anatomical Location Collection Method / Collectio n Time Received Time / Laterality Volume Narrative 09/04/2020 1:42 PM CDT These images were obtained during a surg ical procedure. Payton Mejia MD RAD FL documented in this encounter Visit Diagnoses Not on filedocumented in this encounter Care Teams Biofuels Production Associate Relationship Specialty Start Date End Date Shannan Matthews DO PCP - General Family Practice 10/13/19 [address] [place] [id number] documented as of this encounter
--- OUTSIDE RECORDS SUMMARY | 2022-04-25 22:30 | XMS_ITS | Encounter Summary ---
:1985 Author Organization [facility] Address [address] [address] Care Team Providers Name Role Phone Cassie Shannan Jose VALDIVIA Primary Care Provider Reason for Referral Procedure/Equipment (Routine) - Incomplete Specialty Diagnoses / Procedures Referred By Contact Refer red To Contact Diagnoses Hydronephrosis of right kidney Frances Brenner APRN, Procedures NM Renogram With Lasix Flow/Function COTTON EXPERT [address] [place], [place] [address] Referral ID Status Reason Start Date Expiration Date Visits V isits Requested Authorized [id number] Incomplete 07/29/2020 10/28/2021 6 6 R OPERATOR Encounter Details Date Type Department Care Team Description 07/29/2020 Notes/Orders Frances Gauthier Hydronephr osis of right Specialty Center - SHERON Hightower CNP kidney (Primary Dx) Urology [address] [place] [phone] Social History Tobacco Use Types Packs/Day Years [...] Renogram With Lasix Flow/Function (07/31/2020 3:25 PM MINER OPERATOR) Anatomical Region Laterality Modality Abdomen Nuclear Medicine Specimen (Source) Anatomical Collection Method Collection Time Re ceived Time Location / / Volume Laterality 07/31/2020 2:17 PM MINER OPERATOR Impressions 07/31/2020 3:48 PM MINER OPERATOR COMPARISON: Correlation made with CT from 07/27/2019 [...] original. IMPRESSION COMPARISON: Correlation made with CT poonam hightower 07/27/2019 TECHNIQUE: The procedure was performed w [...] function as described above. Frances Brenner APRN, COTTON EXPERT RAD NM documented in this encounter Visit Diagnoses Diagnosis Hydronephrosis of right kidney - Primary Hydronephrosis Hydronephrosis of right kidney Hydronephrosis documented in this encounter Care Teams Scrap Kettle Tender Relationship Specialty Start Date End Date Shannan Matthews DO PCP - General Family Practice 10/13/19 [address] [id number] documented as of this encounter
--- OUTSIDE RECORDS SUMMARY | 2022-04-25 22:31 | XMS_ITS | Encounter Summary ---
:1985 Author Organization [employer] Address [address] [place] [address] Care Team Providers Name Role Phone CassieShannan Jose VALDIVIA Primary Care Provider Encounter Details Date Type Department Care Team Description 03/04/2020 Hospital Encounter [facility] V[facility], Hospital Medicine [address] [place] [address] Center Procedural Ar ea Valentina Lockett MD [address] [place] [address] [address] [place] [address] Social History Tobacco Use Types Packs/Day Years Used Date Smoking Tobacco: Never Smokeless Tobacco: Never Alcohol Use Standard Drinks/Week Comments Not Currently 0 (1 standard drink = 0.6 oz pure alcoho l) 2/week Sex Assigned at Date Recorded Not on file documented as of this encounter Medications at Time of Discharge Medication Sig Dispensed Refills Start Date End Date cetirizine (ZYRTEC) 10 Take 10 mg by mouth 0 MG tablet daily. SUMAtriptan (IMITREX) Take 1 Tablet by mouth 9 Tablet 2 50 MG as needed for tabletIndications: Migraine. May repeat Headaches one tablet after 2 hours if needed. Maximum 4 tabs/24 hours and 9 days/month ciprofloxacin (CIPRO) Take 1 Tablet by mouth 28 Tablet 0 03/10/2020 500 MG two times a day for 14 tabletIndications: days. Indications: pyelonephritis pyelonephritis acetaminophen Take 2 Tablets by 100 Tablet 11 02/27/202005/23 (TYLENOL) 500 MG mouth three times a tablet day. Maximum acetaminophen dose is 4000 mg in 24 hours oxyCODONE (ROXICODONE) Take 1-2 Tablets by 10 Tablet 0 01/202003/07/2020 5 MG immediate release mouth every 6 hours as tabletIndications: needed (severe pain). Calculus of kidney polyethylene glycol Take 1 Packet by mouth 30 Each 0 10/0 11/201906/17/2020 (MIRALAX) 17 g packet daily as needed for Constipation. propranolol Take 1 Capsule by 90 Capsule 3 08/22/20192020 (INDERALLA) 80 MG 24 mouth daily. hour release capsuleIndications: Headaches, Essential hypertension (HRC) sertraline (ZOLOFT) 50 Take 50 mg by mouth 0 06/201906/06/2020 MG tablet daily. documented as of this encounter Progress Notes Vicky Alfred RN - 03/04/2020 12:40 PM CDT Interventional Radiology: Pt called concerned about redness around the neph tube drain sites. Small amt of yellow drainage around the site. Both drain flushed easily with 5ml and fld returned easily. Pt noted not as much output from the drains. Recommended pt put bacitracin around the site. Pt following up with Dr. Lockett on Tuesday this week. Pt told to call if site becomes more red or noting increased drainage from the site. Pt has our phone number to call with questions and concerns. Vicky Alfred RN 12:46 PM 03/04/2020 documented in this encounter Plan of Treatment Not on filedocumented as of this encounter Visit Diagnoses Not on filedocumented in this encounter Active and Recently Administered Medications Times are shown in CDT. No Frequency Medication Order 03/02/2020 03/03/2020 03/04/2020 sodium chloride 0.9% 0.9 % injection - ADS Override Pull 1230 (Due) Starting Tu03/04/20 at 1216, For 1 Tima wilhelm Rebecca: cabinet override documented in this encounter Care Teams Hot Mix Operator Relationship Specialty Start Date End Date Shannan Matthews DO PCP - General Family Practice 10/13/19 [address] [id number] documented as of this encounter
--- OUTSIDE RECORDS SUMMARY | 2022-04-25 22:31 | XMS_ITS | Encounter Summary ---
:1985 Author Organization [facility] Address [address] [place] [address] Care Team Providers Name Role Phone Shannan Matthews DO Primary Care Provider Encounter Details Date Type Department Care Team Description 04/03/2020 Orders Only Initial Department Provider, Alok, [facility] CLARICE COLLAZO MD [place], [place] [address] Interface provider [phone] [place] [address] Social History Tobacco Use Types Packs/Day Years [...] Name Priority Date/Time Associated Diagnosis Comme nts EKG 04/03/2020 Results for thi s procedure are in the resu lts section. documented in this encounter Results EKG (04/03/2020) Narrative This result has an attachment that is no t available. Interface Provider EKG documented in this encounter Visit Diagnoses Not on filedocumented in this encounter Care Teams Orthophotography Technician Relationship Specialty Start Date End Date Shannan Matthews DO PCP - General Family Practice 10/13/19 [address] [id number] documented as of this encounter
--- OUTSIDE RECORDS SUMMARY | 2022-04-25 22:31 | XMS_ITS | Encounter Summary ---
:1985 Author [facility] Address [address], [place] [address] Care Team Providers Name Role Phone Shannan Matthews DO Primary Care Provider Encounter Details Date Type Department Care Team Description 03/19/2020 Notes/Orders Valentina Huizar MD Pyelonephritis of right Specialty Center - [address] (Primary Dx) [address] [place] [address] [phone] Social History Tobacco Use Types Packs/Day Years Used Date Smoking Tobacco: Never Smokeless Tobacco: Never Alcohol Use Standard Drinks/Week Comments Not Currently 0 (1 standard drink = 0.6 oz pure alcoho l) 2/week Sex Assigned at Date Recorded Not on file documented as of this encounter Plan of Treatment Not on filedocumented as of this encounter Visit Diagnoses Diagnosis Pyelonephritis of right kidney - Primary documented in this encounter Care Teams Federal Java Developer Relationship Specialty Start Date End Date Shannan Matthews DO PCP - General Family Practice 10/13/19 [address] [place] [id number] documented as of this encounter
--- OUTSIDE RECORDS SUMMARY | 2022-04-25 22:31 | XMS_ITS | Encounter Summary ---
:1985 Author Organization [facility] Address [address] [place] [address] Care Team Providers Name Role Phone Shannan Matthews Primary Care Provider Reason for Referral Procedure/Equipment (Routine) - Incomplete Specialty Diagnoses / Procedures Referred By Contact Refer red To Contact Diagnoses Recurrent kidney stones Rajendra Le MD Procedures IR Nephrostomy Tube Check [address] [place], [place] [address] Referral ID Status Reason Start Date Expiration Date Visits V isits Requested Authorized [id number] Incomplete 03/14/2020 06/13/2021 1 1 Encounter Details Date Type Department Care Team Description 03/14/2020 Notes/Orders Worship Interventional Harry Chao Recurrent kidney Radiology M, RN stones (Primary Dx) [address] [place] [address] Social History Tobacco Use Types Packs/Day Years Used Date Smoking Tobacco: Never Smokeless Tobacco: Never Alcohol Use Standard Drinks/Week Comments Not Currently 0 (1 standard drink = 0.6 oz pure alcoho l) 2/week Sex Assigned at Date Recorded Not on file documented as of this encounter Plan of Treatment Not on filedocumented as of this encounter Results IR Nephrostomy Tube Check (03/14/2020 3:39 PM CDT) Anatomical Region Laterality Modality X-Ray Angiography Specimen (Source) Anatomical Collection Method Collection Time Re ceived Time Location / / Volume Laterality 03/14/2020 3:16 PM CDT Impressions 03/14/2020 6:26 PM CDT History: Chronically and grossly dilated right kidney with multiple calculi status post nephrostomy tube placement on 02/25/2020. Patient called today with increasing pain, bleeding, and concern that her tubes have moved. PROCEDURE: Contrast was injected through each right-sided nephrostomy tube and compared with 03/09/2020. One tube is coiled in a capacious calyx in the upper pole of the kidney, not significantly change d compared to previous. The second tube is unformed and positioned in the proximal ureter. This is also unchanged. Multiple renal calculi are again noted. There is a ureteral stent which remains in sati sfactory position and patency of contras t flowing into the bladder was confirmed. I reviewed with the patient that nothing has changed since her previous exam and that I do not have a clear etiology for increasing pain. Both tubes flushed easily and are not plugged. Her drainage prio r to this procedure was non-bloody. In a ddition the skin site looks good. I recommended leaving and tubes as is si nce there is no clear indication to change them, and doing so would most likely make her symptoms worse. SUMMARY: Pre-existing nephrostomy tubes in stable position. Patent ureteral stent. Procedure Note Rajendra Le MD - 03/14/2020Formatti ng of this note might be different from the original. IMPRESSION History: Chronically and grossly dilated right kidney with multiple calculi status post nephrostomy tube placement on 02/25/2020. Patient called today with increasing pain, bleeding, and concern that her tubes have moved. PROCEDURE: Contrast was injected through each right-sided nephrostomy tube and compared with 03/09/2020. One tube is coiled in a capacious calyx in the upper pole of the kidney, not significantly changed compared to previous. The second tube is unformed an d positioned in the proximal ureter. This is also unchanged. Multiple renal calculi are again noted. There is a ureteral stent which remains in satisfactory position and patency of contrast flowing into the bay dder was confirmed. I reviewed with the patient that nothing has changed since her previous exam and that I do not have a clear etiology for increasing pain. Both tubes flushed easily and are not plugged. Her drainage prior to this procedure was non-bloody. In addition th e skin site looks good. I recommended leaving and tubes as is si nce there is no clear indication to change them, and doing so would most likely make her symptoms worse. SUMMARY: Pre-existing nephrostomy tubes in stable position. Patent ureteral stent. Rajendra Le MD RAD IR documented in this encounter Visit Diagnoses Diagnosis Recurrent kidney stones - Primary Calculus of kidney documented in this encounter Care Teams Manufacturing Associate Relationship Specialty Start Date End Date Shannan Matthews DO PCP - General Family Practice 10/13/19 [address] [id number] documented as of this encounter
--- OUTSIDE RECORDS SUMMARY | 2022-04-25 22:31 | XMS_ITS | Encounter Summary ---
:1985 Author Organization [employer] Address [address] [address] Care Team Providers Name Role Phone Shannan Matthews DO Primary Care Provider Reason for Visit Reason Comments QUESTIONS, GENERAL Encounter Details Date Type Department Care Team Description 03/25/2020 Telephone [facility] Specialty Aracelis Lockett MD QUESTIONS, GENERAL Center - Urology [address] [facility] [address] [place] [phone] (Wo rk) Social History Tobacco Use Types Packs/Day Years Used Date Smoking Tobacco: Never Smokeless Tobacco: Never Alcohol Use Standard Drinks/Week Comments Not Currently 0 (1 standard drink = 0.6 oz pure alcoho l) 2/week Sex Assigned at Date Recorded Not on file documented as of this encounter Nursing Notes Lenore Dixon LPN - 03/25/2020 11:58 AM CST Pt calling c/o migraine with visual changes. I instructed her to go to ER for evaluation of this. 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
--- OUTSIDE RECORDS SUMMARY | 2022-04-25 22:31 | XMS_ITS | Encounter Summary ---
:1985 Author Organization [facility] Address [address] [place] [address] Care Team Providers Name Role Phone Shannan Matthews DO Primary Care Provider Reason for Visit Reason Comments URINATION, URINATE, PAINFUL Flank Pain right side Encounter Details Date Type Department Care Team Description 03/18/2020 Nurse Triage Shannan Gu, URINATIO N, URINATE, Medicine DO PAINFUL; Flank Pain [address] side ) [place] [address] [address] [phone] [place] [address] Social History Tobacco Use Types Packs/Day Years Used Date Smoking Tobacco: Never Smokeless Tobacco: Never Alcohol Use Standard Drinks/Week Comments Not Currently 0 (1 standard drink = 0.6 oz pure alcoho l) 2/week Sex Assigned at Date Recorded Not on file documented as of this encounter Nursing Notes Betty Roper RN - 03/18/2020 12:54 PM CDT Pt with current kidney stone, hydronephrosis, with an external stent from the kidney. She has felt some improvement from the antibiotics for her Pyelonephritis, which she finished about 5 days ago. . She still has dysuria, urinary frequency, Right flank pain. With the urine bags coming from her back an d with voiding, hematuria present at times, at other times it is cloudy yellow. Feels her urine output has decreased in spite of drinking plenty of water daily. Denies fever, nausea, vomiting, abdominal pain. Transferred Pt to the Urology Department for direction. Problem list reviewed as related to this call. Reason for Disposition ??? Painful urination AND EITHER frequency or urgency Protocols used: URINATION PAIN - [id number] Peter Edgar - 03/18/2020 12:42 PM CDT Symptoms Describe your symptoms (if pain, include location): Side Pain- Right Urination- painful Patient had a visit with PCP a few weeks ago after patient was in the hospital for Kidney. Patient has been off of meds for the past 5 or 6 days and is still having issues and asking to speakwith a nurse. When did they start? a few weeks ago patient states Additional comments (related to the above concern): Phone Screening Negative on 03-18-20 If a prescription is needed, patient would like it filled at the pharmacy listed in Meds & Orders. Yes, verified on 03-18-20 (Verify the pharmacy patient would like to [...] on filedocumented in this encounter Care Teams Custom Tailor Relationship Specialty Start Date End Date Shannan Matthews DO PCP - General Family Practice 10/13/19 [address] [id number] documented as of this encounter
--- OUTSIDE RECORDS SUMMARY | 2022-04-25 22:31 | XMS_ITS | Encounter Summary ---
:1985 Author Organization [facility] Address [address], [place] [address] Care Team Providers Name Role Phone CassieShannan Primary Care Provider Reason for Referral Procedure/Equipment (Routine) - Incomplete Specialty Diagnoses / Procedures Referred By Contact Refer red To Contact Diagnoses Recurrent kidney stones Rajendra Le MD Procedures IR Nephrostomy Tube Check [address] [place], [place] [address] Referral ID Status Reason Start Date Expiration Date Visits V isits Requested Authorized [id number] Incomplete 03/14/2020 06/13/2021 1 1 Encounter Details Date Type Department Care Team Description 03/14/2020 Hospital Encounter Heart & Vascular Rajendra Le R ecurrent kidney Center Procedural MD stones Area [address] [facility] [address] [place] [address] [phone] Social History Tobacco Use Types Packs/Day Years Used Date Smoking Tobacco: Never Smokeless Tobacco: Never Alcohol Use Standard Drinks/Week Comments Not Currently 0 (1 standard drink = 0.6 oz pure alcoho l) 2/week Sex Assigned at Date Recorded Not on file documented as of this encounter Last Filed Vital Signs Vital Sign Reading Time Taken Comments Blood Pressure 130/93 03/14/2020 2:31 PM CDT Pulse 68 03/14/2020 2:31 PM CDT Temperature 36.5 ??C (97.7 ??F) 03/14/2020 2:31 PM CDT Respiratory Rate 16 03/14/2020 2:31 PM CDT Oxygen Saturation 99% 03/14/2020 2:31 PM CDT Inhaled Oxygen Concentration - - Weight - - Height - - Body Mass Index - - documented in this encounter Medications at Time of Discharge Medication Sig Dispensed Refills Start Date End Date cetirizine (ZYRTEC) 10 Take 10 mg by mouth 0 MG tablet daily. SUMAtriptan (IMITREX) Take 1 Tablet by mouth 9 Tablet 2 50 MG as needed for tabletIndications: Migraine. May repeat Headaches one tablet after 2 hours if needed. Maximum 4 tabs/24 hours and 9 days/month acetaminophen Take 2 Tablets by 100 Tablet 11 02/27/202005/23 (TYLENOL) 500 MG mouth three times a tablet day. Maximum acetaminophen dose is 4000 mg in 24 hours ciprofloxacin (CIPRO) Take 1 Tablet by mouth 14 Tablet 0 04/22/2020 500 MG tablet two times a day. HYDROcodone-acetaminop Take 1-2 Tablets by 10 Tablet 0 03/2304/22/2020 hen (NORCO) 5-325 MG mouth every 4 hours as tablet needed for Pain. Maximum acetaminophen dose is 4000 mg in 24 hours. oxyCODONE (ROXICODONE) Take 1 Tablet by mouth 12 Tablet 0 1 04/01/2020 5 MG immediate release every 6 hours as tablet needed for Pain. polyethylene glycol Take 1 Packet by mouth 30 Each 0 10/11/201906/17/2020 (MIRALAX) 17 g packet daily as needed for Constipation. propranolol Take 1 Capsule by 90 Capsule 3 08/22/20192020 (INDERALLA) 80 MG 24 mouth daily. hour release capsuleIndications: Headaches, Essential hypertension (HRC) sertraline (ZOLOFT) 50 Take 50 mg by mouth 0 06/0 06/201906/06/2020 MG tablet daily. sodium chloride 0.9% Irrigate 5 mL as 14 Each 3 0 04/22/2020 injection needed. Flush each drain with 5 ml of saline as needed towards the body. Do not draw back on the drain. documented as of this encounter Plan of Treatment Not on filedocumented as of this encounter Procedures Procedure Name Priority Date/Time Associated Comments Diagnosis IR NEPHROSTOMY TUBE Routine 03/14/2020 3:39 PM Recurrent kidne y Results for this CHECK CDT stones procedure are i n the results section. documented in this encounter Results IR Nephrostomy Tube Check [...] encounter Visit Diagnoses Diagnosis Recurrent kidney stones Calculus of kidney documented in this encounter Administered Medications Inactive Administered Medications - up to 3 most recent administrations Medication Order MAR Action Action Date Dose Rate Site iopamidol (ISOVUE-300) 61 % Given 03/14/2020 4:00 PM CDT 15 mL injection 50 mL 50 mL, Intra-renal, ONCE, On Tue03/14/20 at 1600, For 1 dose, Radiology sodium chloride 0.9 % solution Started 03/14/2020 2:42 PM CDT 100 mL/hr Starting on Tue03/14/20 at 1425, For 1 dose, Carolyn Padilla: cabinet override sodium chloride 0.9% 0.9 % injection - ADS Given 03/14/2020 2:42 PM CDT 10 mL Override Pull Starting on Tue03/14/20 at 1425, Until Tue03/14/20 at 1442, For 1 dose, Carolyn Padilla: cabinet override documented in this encounter Active and Recently Administered Medications Times are shown in CDT. Scheduled Medication Order 03/12/2020 03/13/2020 03/14/2020 iopamidol (ISOVUE-300) 61 % injection 50 mL (COMPLETED) 1600 (Given - Provider: Tommie Ruvalcaba) 50 mL, Intra-renal, ONCE, Tue03/14/20 at 1600, For 1 dose, Radi ology No Frequency Medication Order 03/12/2020 03/13/2020 03/14/2020 sodium chloride 0.9 % solution (COMPLETED) 1442 (Started - Provider: Carolyn Padilla RN) Starting Tue03/14/20 at 1425, For 1 dose, Carolyn Padilla: cabinet override sodium chloride 0.9% 0.9 % injection - ADS Override Pull (COMPLE JUAN MANUEL) 1442 (Given - Provider: Carolyn Padilla RN) Starting on Tue03/14/20 at 1425, Until Tue03/14/20 at 1442, For 1 dose, Carolyn Padilla: cabinet override documented in this encounter Care Teams Slabber Light Relationship Specialty Start Date End Date Shannan Matthews DO PCP - General Family Practice 10/13/19 [address] [id number] documented as of this encounter
--- OUTSIDE RECORDS SUMMARY | 2022-04-25 22:31 | XMS_ITS | Encounter Summary ---
:1985 Author Organization [facility] Address [address] [place] [address] Care Team Providers Name Role Phone Shannan Matthews Primary Care Provider Reason for Visit Reason Comments PRE-OP EXAM Kidney stone removal on 03/[address] Lockett at [facility] Encounter Details Date Type Department Care Team Description 04/01/2020 Pre-Op Visit [place] [address] Jayden Mcpherson, Preoper ative examination (Primary Dx); Family Medicine Right kidney stone; [address] [place] [address] [phone] Social History Tobacco Use Types Packs/Day Years Used Date Smoking Tobacco: Never Smokeless Tobacco: Never Alcohol Use Standard Drinks/Week Comments Not Currently 0 (1 standard drink = 0.6 oz pure alcoho l) 2/week Sex Assigned at Date Recorded Not on file documented as of this encounter Last Filed Vital Signs Vital Sign Reading Time Taken Comments Blood Pressure 98/70 04/01/2020 3:46 PM CLOTH PRINTER Pulse 81 04/01/2020 3:46 PM CLOTH PRINTER Temperature - - Respiratory Rate 16 04/01/2020 3:46 PM CLOTH PRINTER Oxygen Saturation - - Inhaled Oxygen Concentration - - Weight 72.1 kg (159 lb) 04/01/2020 3:46 PM CLOTH PRINTER Height - - Body Mass Index 24.18 03/07/2020 2:28 PM CDT documented in this encounter Patient Instructions Patient InstructionsJayden Mcpherson MD - 04/01/2020 3:40 PM CST Images from the original note were not included. Learning About How to Prepare for Surgery How can you prepare before surgery? You can do some things that will help you safely prepare for surgery. ?? Understand exactly what surgery is planned. You should know the risks, benefits, and other options. ?? Tell your doctors ALL the medicines, vitamins, supplements, and herbal remedies you take. Some of these can increase the risk of bleeding. Or they may interact with anesthesia. ?? Follow your doctor's instructions about which medicines to take or stop before your surgery. ? You may need to stop taking some medicines a week or more before surgery. ? If you take aspirin or some other blood thinner, be sure to talk to your doctor. ?? Follow any other instructions your doctor gave you. ?? If you have an advance directive, let your doctor know, and bring a copy to the hospital. It may include a living will and a durable power of privacy attorney for health care. It lets your doctor and loved ones know your health care wishes. If you don't have one, you may want to prepare one. How can you prepare on the day of surgery? Here are some tips about what to do at home before you leave for your surgery. ?? If your doctor told you to take your medicines on the day of surgery, take them with only a sip of water. ?? Follow the instructions about when to stop eating and drinking. If you don't, your surgery may be canceled. ?? Follow your doctor's instructions about when to bathe or shower before your surgery. ?? Do not shave the surgical site yourself. ?? Take off all jewelry and piercings. ?? Take out contact lenses, if you wear them. ?? Have a picture ID ready to take with you. Your ID will be checked before your surgery. ?? Know when to call your doctor. Call your doctor if you: ? Become ill before surgery. ? Need to reschedule. ? Have changed your mind about having the surgery. What happens before surgery? Here are some things you can expect to happen before your surgery. ?? Your picture ID will be checked. ?? The area of your body that needs surgery is often marked to make sure there are no errors. ?? You will be kept comfortable and safe by your anesthesia provider. The anesthesia may make you sleep. Or it may just numb the area being worked on. What happens when you are ready to go home? Be sure you have someone drive you home. Anesthesia and pain medicine make it unsafe for you to drive. You will get instructions about recovering from your surgery. This is called a discharge plan. It will cover things like diet, wound care, follow-up care, driving, and getting back to your normal routine. Follow-up care is a chamorro part of your treatment and safety. Be sure to make and go to all appointments, and call your doctor if you are having problems. It's also a good idea to know your test results and keep a list of the medicines you take. Where can you learn more? 1. Go to https://[employer]/Travelmenu or [employer]/Kidzillions. 2. Enter Q270 in the search box. Current as of: January 10, 2019?Content Version: 12.4 ?? [facility]. Care instructions adapted under license by your healthcare professional. If you have questions abouta medical condition or this instruction, always ask your healthcare professional. [facility] disclaims any warranty or liability for your use of this information. H PRINTER documented in this encounter OR Notes H&P - Jayden Mcpherson MD - 04/01/2020 3:40 PM CST PREOPERATIVE ASSESSMENT Date of Service: 04/01/2020 Date of : 1985 Age: 34 y.o. Sex: female Preoperative Evaluation completed by: Jayden Mcpherson MD Primary care physician: Shannan Matthews DO [phone] CHIEF COMPLAINT Pre-Operative Evaluation ANTICIPATED PROCEDURE Chief Complaint Patient presents with ??? PRE-OP EXAM Kidney stone removal on 04/03/[address] Lockett at [facility] Percutaneous nephrolithotomy HISTORY OF PRESENT ILLNESS Estefania Mckeon is a pleasant 34 y.o. female who will be undergoing the above procedure for a right kidney stone. The patient has had surgery previously without any anesthesia complications and denies any known family history of anesthesia complications. She has otherwise been feeling well recently without any signs or symptoms of acute illness or COVID-19. She has had no changes in exercise tolerance and can climb >1 flights of stairs without difficulty, chest pain, or shortness of breath. Shevoices no other acute concerns today. Risk Factors/Review of Systems: (Please see flowsheets for details) Cardiovascular risks negative except for: HTN: takes propranolol Renal risks negative except for: None Neuro risks negative except for: None GI risks negative except for: None Pulmonary risks negative except for: None Endocrine/Nutrition risks negative except for: None Hematologic Disease risks negative except for: None Musculoskeletal/Skin risks negative except for: None Mental Health risks negative except for: Anxiety: Depression: Code Status: Full Code, Other risk factors negative except for: None Complete review of systems is otherwise negative. Patient Active Problem List Diagnosis ??? Vitamin D deficiency ??? Recurrent kidney stones ??? History of blood transfusion ??? KEZIA (iron deficiency anemia) ??? Encounter for female sterilization procedure ??? Bicornuate uterus ??? Endometriosis ??? Pyelonephritis of right kidney ??? Right kidney stone Past Medical History: Diagnosis Date ??? Anemia iron deficiency ??? Bicornuate uterus ??? Blood transfusion, without reported diagnosis Chronic anemia ??? Heartburn ??? Kidney stones 10 stones in past, current stone right kidney ??? Migraines ??? Pap smear abnormality of cervix ??? Varicella Past Surgical History: Procedure Laterality Date ??? CYSTOSCOPY 2004 Kidney stones ??? HX APPENDECTOMY 1998 ??? WISDOM TEETH EXTRACTION Family History Problem [...] Use Topics ??? Alcohol use: Not Currently Comment: 2/week Current Outpatient Medications Medication Sig Dispense Refill ??? acetaminophen (TYLENOL) 500 MG tablet Take 2 Tablets by mouth three times a day. Maximum acetaminophen dose is 4000 mg in 24 hours 100 Tablet 11 ??? cetirizine (ZYRTEC) 10 MG tablet Take 10 mg by mouth daily. ??? polyethylene glycol (MIRALAX) 17 g packet Take 1 Packet by mouth daily as needed for Constipation. 30 Each 0 ??? propranolol (INDERALLA) 80 MG 24 hour release capsule Take 1 Capsule by mouth daily. 90 Capsule 3 ??? sertraline (ZOLOFT) 50 MG tablet Take 50 mg by mouth daily. ??? sodium chloride 0.9% injection Irrigate 5 mL as needed. Flush each drain with 5 ml of saline as needed towards the body. Do not draw back on the drain. 14 Each 3 ??? SUMAtriptan (IMITREX) 50 MG tablet [...] ??? Antihistamines, Diphenhydramine-Type Palpitations PHYSICAL EXAMINATION Pulse: 81 (04/01/20 1546) Resp: 16 (04/01/20 1546) BP: 98/70 (04/01/20 1546) Weight: 159 lb (72.1 kg) (04/01/20 1546) General Appearance: Normal HEENT: Normal Neck: Normal Lungs: Normal Heart: Normal Abdomen: Normal Extremities: Normal Skin: Normal Neurologic: Normal TEST RESULTS AND DATE EKG done: No Labs done: No, but reviewed previous labs from 03/25/2020 Lab Results Component Value Date WBC 8.5 03/25/2020 RBC 4.36 03/25/2020 Hemoglobin 12.8 03/25/2020 HCT 40.2 03/25/2020 MCV 92.2 03/25/2020 RDW 12.5 03/25/2020 Platelets 266 03/25/2020 Lab Results Component Value Date Creatinine 0.79 03/25/2020 Glucose 86 03/25/2020 CO2 26 03/25/2020 Chloride 102 03/25/2020 Potassium 4.2 03/25/2020 Sodium 135 (L) 03/25/2020 BUN 9 03/25/2020 Calcium 9.9 03/25/2020 GFR, Estimated >60 03/25/2020 ASSESSMENT 1. Preoperative Assessment: This patient has been examined by me today and has been found to be a suitable candidate for surgery: Yes 2. Hypertension - Takes propranolol, which she should take leading up to and the day of surgery No other medication changes or recommendations. RECOMMENDATIONS AND PLAN Day of surgery testing: none Medication recommendations including insulin / diabetes: no adjustments needed. Additional screening recommended: no Consult (Cardiology/other): no [...] ABOVE RECOMMENDATIONS WERE REVIEWED WITH PATIENT: yes Jayden Mcpherson MD 04/01/2020 H PRINTER documented in this encounter Plan of Treatment Not on filedocumented as of this encounter Visit Diagnoses Diagnosis Preoperative examination - Primary Preoperative examination, unspecified Right kidney stone Calculus of kidney Essential hypertension (HRC) Unspecified essential hypertension documented in this encounter Care Teams Engine Dynamometer Tester Relationship Specialty Start Date End Date Shannan Matthews DO PCP - General Family Practice 10/13/19 [address] [id number] documented as of this encounter
--- OUTSIDE RECORDS SUMMARY | 2022-04-25 22:31 | XMS_ITS | Encounter Summary ---
:1985 Author Organization [employer] Address [address] [place] [address] Care Team Providers Name Role Phone Shannan Matthews Primary Care Provider Reason for Visit Reason Comments Symptoms Encounter Details Date Type Department Care Team Description 03/18/2020 Telephone [facility] Specialty Aracelis Lockett MD Symptoms Center - Urology [address] [facility] [address] [place] [phone] (Wo rk) Social History Tobacco Use Types Packs/Day Years Used Date Smoking Tobacco: Never Smokeless Tobacco: Never Alcohol Use Standard Drinks/Week Comments Not Currently 0 (1 standard drink = 0.6 oz pure alcoho l) 2/week Sex Assigned at Date Recorded Not on file documented as of this encounter Nursing Notes Janie Franklin RN - 03/18/2020 2:53 PM CDT Orders placed, patient contacted. Valentina Lockett MD - 03/18/2020 2:42 PM CDT Please get a UA and UC, then we'll decide. Janie Franklin RN - 03/18/2020 1:52 PM CDT Patient has finished her course of antibiotics and is still symptomatic with dysuria and urgency. She is asking if more antibiotics are needed or what follow up is necessary? Surgery is 04/03/20. documented in this encounter Plan of Treatment Not on filedocumented as of this encounter Results (ABNORMAL) Urine Microscopic (03/19/2020 8:55 AM CDT) [facility] Method Time Signature Red Blood Cells 21-50 (A) 0 - 3 03/19/2020 [place] /HPF 9:50 AM CDT LABORATORY White Blood 21-50 (A) 0 - 5 03/19/2020 [place] Cells /HPF 9:50 AM CDT LABORATORY Bacteria Many (A) None Seen 03/19/2020 [place] /HPF 9:50 AM CDT LABORATORY Squamous Few (A) None Seen 03/19/2020 [place] Epithelial /HPF 9:50 AM CDT LABORATORY Cells Specimen Anatomical Collection Method Collection Time Receive d Time (Source) Location / / Volume Laterality Urine URINE SPECIMEN Non-blood 03/19/2020 8:55 AM 020 8:55 COLLECTION, CLEAN Collection / CDT AM CDT CATCH / Unknown Unknown Valentina Lockett MD LAB_1 Performing Organization Address City/[facility]/ZIP Code Phon e Number [facility] [address] [place] [address] (ABNORMAL) Urine Culture (03/19/2020 8:55 AM CDT) [facility] Method Time Signature Urine Culture Growth (A) 03/20/2020 [place] 10:42 AM CDT HOSPITAL Urine Culture <10,000 CFU/mL 03/20/2020 [facility] Multiple 10:42 AM CDT HOSPITAL Bacterial Morphotypes Specimen Anatomical Collection Method Collection Time Receive d Time (Source) Location / / Volume Laterality Urine URINE SPECIMEN Non-blood 03/19/2020 8:55 AM 020 8:55 COLLECTION, CLEAN Collection / CDT AM CDT CATCH / Unknown Unknown Valentina Lockett MD LAB_1 Performing Organization Address City/State/ZIP Code Phon e Number [address] [address] documented in this encounter Visit Diagnoses Diagnosis Dysuria - Primary documented in this encounter Care Teams Interventional Nurse Relationship Specialty Start Date End Date Shannan Matthews DO PCP - General Family Practice 10/13/19 [address] [id number] documented as of this encounter
--- OUTSIDE RECORDS SUMMARY | 2022-04-25 22:31 | XMS_ITS | Encounter Summary ---
:[address] [facility] Address [address] [address] Care Team Providers Name Role Phone Shannan Matthews DO Primary Care Provider Encounter Details Date Type Department Care Team Description 03/24/2020 Notes/Orders hCelsey Nair Pyeloneph ritis of right [facility] - E, PA-C kidney (Primary Dx) Urology [address] [place] [address] [phone] Social History Tobacco Use Types Packs/Day Years [...] Primary documented in this encounter Care Teams Train Controller Relationship Specialty Start Date End Date Shannan Matthews DO PCP - General Family Practice 10/13/19 [address] [id number] documented as of this encounter
--- OUTSIDE RECORDS SUMMARY | 2022-04-25 22:31 | XMS_ITS | Encounter Summary ---
:1985 Author Organization [employer] Address [address] [place] [address] Care Team Providers Name Role Phone Shannan Matthews DO Primary Care Provider Reason for Visit Reason Onset Date Comments Hospital Discharge Follow-up 02/23-02/26 f or kidney stone blocking right kidney; Started at [facility] ER; [facility] 02/29/2020 Encounter Details Date Type Department Care Team Description 02/29/2020 Telemedicine Shannan Gu, Hospital discharge follow-up (Primary Dx); Medicine DO Calculus of kidney; [address] [facility] [address] [facility] [address] [place] [address] [address] [phone] Social History Tobacco Use Types Packs/Day Years [...] - Oxygen Saturation - - Inhaled Oxygen - - Concentration Weight 72.1 kg (159 lb) 02/29/2020 8:47 AM pt reported from home CDT Height - - Body Mass Index 24.18 02/24/2020 1:56 PM CDT documented in this encounter Progress Notes Shannan Matthews DO - 02/29/2020 10:00 AM CDT Subjective: Today's visit with Estefania was conducted as a scheduled video visit for hospital discharge follow up. Patient was admitted to [facility] 02/24/20-02/26 for large staghorn calculus to right kidney with pyelonephritis and severe hydronephrosis. Underwent cystoscopy with pyelogram and ureteral stentplacement on 02/24/20. Nephrostomy tubes placed to help drain upper pole of kidney. Discharged on 14 d ay course of cipro. F/u scheduled with urology on 03/07. Discharged on 02/26. Painful still around sites of tubes and to flank. Sharp pains to bladder area. also notes white pus like material in urine with pink tinge to urine. Taking oxycodone every 6 hours. And tylenol inbetween if needed. Objective: Wt 159 lb (72.1 kg) Comment: pt reported from home LMP 01/21/2020 (Exact Date) BMI 24.18 kg/m?? General: Alert, pleasant, NAD HEENT: Normocephalic. Sclera and conjunctiva normal. Mucous membranes moist. Respiratory: Normal respiratory effort. Neurological: No gross focal deficits. Psych: Affect is normal, patient is appropriate, grooming is appropriate. Assessment/Plan: Estefania was seen today for hospital discharge follow-up. Diagnoses and all orders for this visit: Hospital discharge follow-up Calculus of kidney - oxyCODONE (ROXICODONE) 5 MG immediate release tablet; Take 1-2 Tablets by mouth every 6 hours as needed (severe pain). Pyelonephritis -urine cultures growing multiple morphologies. Afebrile since discharge. Continue course of cipro. -take tylenol scheduled for pain, oxycodone for severe break through pain. Sent script for [id number] #[id number]. -f/u with urology as scheduled on 03/07/20. F/u sooner if she develops fever or pain is worsening, or more pus like drainage from tubs or in urine. Clinician located at home. Patient located at home Billing based on: Tonia Matthews DO documented in this encounter Plan of Treatment Not on filedocumented as of this encounter Visit Diagnoses Diagnosis Hospital discharge follow-up - Primary Other follow-up examination Calculus of kidney Pyelonephritis Pyelonephritis, unspecified documented in this encounter Care Teams Spin Table Operator Relationship Specialty Start Date End Date Shannan Matthews DO PCP - General Family Practice 10/13/19 [address] [id number] documented as of this encounter
--- OUTSIDE RECORDS SUMMARY | 2022-04-25 22:31 | XMS_ITS | Encounter Summary ---
:1985 [facility] Address [address] [place] [address] Care Team Providers Name Role Phone CassieShannan Jose VALDIVIA Primary Care Provider Encounter Details Date Type Department Care Team Description 03/19/2020 Lab Visit [facility] Laboratory Dysuria [id number] [place] [phone] Social History Tobacco Use Types Packs/Day Years [...] Name Priority Date/Time Associated Diagnosis Comme nts URINE CULTURE Routine 03/19/2020 8:55 AM Dysuria Results for this CDT procedure are i n the results section . UA MICRO Routine 03/19/2020 8:55 AM Dysuria Results f or this CDT procedure are i n the results section . documented in this encounter Results (ABNORMAL) Urine Microscopic (03/19/2020 8:55 AM CDT) [facility] Method Time Signature Red Blood Cells 21-50 (A) 0 - 3 03/19/2020 [place] /[facility]PF 9:50 AM CDT LABORATORY White Blood 21-50 (A) 0 - 5 03/19/2020 [place] Cells /HPF 9:50 AM CDT LABORATORY Bacteria Many (A) None Seen 03/19/2020 [place] /[facility] 9:50 AM CDT LABORATORY Squamous Few (A) None Seen 03/19/2020 [facility]helial /[facility] 9:50 AM CDT LABORATORY Cells Specimen Anatomical Collection Method Collection Time Receive d Time (Source) Location / / Volume Laterality Urine URINE SPECIMEN Non-blood 03/19/2020 8:55 AM 020 8:55 COLLECTION, CLEAN Collection / CDT AM CDT CATCH / Unknown Unknown Valentina Lockett MD LAB_1 Performing Organization Address City/[facility]/ZIP Code Phon e Number [facility] [id number] [place] [address] (ABNORMAL) Urine Culture (03/19/2020 8:55 AM CDT) [facility] gist Method Time Signature Urine Culture Growth (A) 03/20/2020 [place] 10:42 AM CDT HOSPITAL Urine Culture <10,000 CFU/mL 03/20/2020 [facility] Multiple 10:42 AM CDT HOSPITAL Bacterial Morphotypes Specimen Anatomical Collection Method Collection Time Receive d Time (Source) Location / / Volume Laterality Urine URINE SPECIMEN Non-blood 03/19/2020 8:55 AM 020 8:55 COLLECTION, CLEAN Collection / CDT AM CDT CATCH / Unknown Unknown Valentina Lockett MD LAB_1 Performing Organization Address City/[facility]/ZIP Code Phon e Number [address] [phone] documented in this encounter Visit Diagnoses Diagnosis Dysuria documented in this encounter Care Teams Sink Maker Relationship Specialty Start Date End Date Shannan Matthews DO PCP - General Family Practice 10/13/19 [facility] [id number] documented as of this encounter
--- OUTSIDE RECORDS SUMMARY | 2022-04-25 22:31 | XMS_ITS | Encounter Summary ---
:1985 Author Organization [employer] Address [address] [place] [address] Care Team Providers Name Role Phone Shannan Matthews Primary Care Provider Reason for Visit Reason Comments INFECTION, KIDNEY Encounter Details Date Type Department Care Team Description 03/24/2020 Telephone [facility] Specialty Aracelis Lockett MD INFECTION, KIDNEY Center - Urology [address] [facility] [address] [place] [address] [phone] (Wo rk) Social History Tobacco Use Types Packs/Day Years Used Date Smoking Tobacco: Never Smokeless Tobacco: Never Alcohol Use Standard Drinks/Week Comments Not Currently 0 (1 standard drink = 0.6 oz pure alcoho l) 2/week Sex Assigned at Date Recorded Not on file documented as of this encounter Nursing Notes Mattie Prince RN - 03/24/2020 4:43 PM CST Patient notified and understands plan. [employer] SHOP SUPERVISOR Chelsey Jensen PA-C - 03/24/2020 4:20 PM CST Urology Note: Hi Betsy, UA/micro/UC, CBC and metabolic panel labs have been placed. Ideally the patient would do the labs before switching to cipro but I understand that might be difficult to do. Either way, start cipro, if not better w/in 24 hours present to ED. I'm worried about a sepsis picture. Thanks, Renu Jensen PA-C Department of Urologic Surgery [employer] SUPERVISOR Mattie Prince RN - 03/24/2020 3:28 PM CST RX sent in for Cipro 500 BID x 7 days. Patient told that if she starts feeling worse she needs to report to ER. Patient understands plan. [employer] SH[employer] SUPERVISOR Chelsey Jensen PA-C - 03/24/2020 3:19 PM CST Urology Note: On Keflex, not helping Allergic to amoxicillin and Macrobid Plan: - Switch to cipro 500 mg po BID x 7 days. - Lab visit for repeat UA/micro/UC, CBC and BMP. - If no improvement within 24 hours, patient needs to be seen. [employer] SHOP SUPERVISOR Mattie Prince RN - 03/24/2020 2:55 PM CST Patient called back and is not feeling any better. She has burning with urination, fatigue, she is afebrile but very warm and uncomfortable. She is asking for a different antibiotic. Please advise Lockett is in surgery today. Y SHOP SUPERVISOR Germán Shoemaker RN - 03/24/2020 9:22 AM CST Patient started keflex 03/21 and now feels worse than when she started. She feels lethargic and has painful urination. Her urine is dark brown. Pt denies fever, chills or increased pain. See Nurse Triage note from 03/23 for more detail. She is scheduled for percutaneous nephrolithotomy surgery with Dr. Lockett on 04/03. Dr. Jimenez instructed her to push fluids and give us a call this morning. Will route to provider totirsovise. Y SHOP SUPERVISOR documented in this encounter Plan of Treatment Not on filedocumented as of this encounter Visit Diagnoses Diagnosis History of UTI - Primary Personal history of urinary (tract) infe ction Staghorn kidney stones Calculus of kidney Flank pain Abdominal pain, unspecified site documented in this encounter Care Teams Ged Preparation Teacher Relationship Specialty Start Date End Date Shannan Matthews DO PCP - General Family Practice 10/13/19 [address] [id number] documented as of this encounter
--- OUTSIDE RECORDS SUMMARY | 2022-04-25 22:31 | XMS_ITS | Encounter Summary ---
:1985 Author Organization [facility] Address [address] [place] [address] Care Team Providers Name Role Phone Shannan Matthews DO Primary Care Provider Reason for Visit Auth/Cert Specialty Diagnoses / Procedures Referred By Contact Refer red To Contact Diagnoses Right kidney stone Procedures PERCUTANEOUS NEPHROLITHOTOMY Referral ID Status Reason Start Date Expiration Date Visits Requ ested Visits Authorized [id number] 1 1 Encounter Details Date Type Department Care Team Description 04/03/2020 Surgery [facility] Operating Valentina Lockett MD PERCUTANEOUS Room [address] NEPHROLITHOTOMY, [address] staghorn stone removal, [place], [place] an d right ureter stent [phone] change [phone] (Wo rk) Social History Tobacco Use Types Packs/Day Years Used Date Smoking Tobacco: Never Smokeless Tobacco: Never Alcohol Use Standard Drinks/Week Comments Not Currently 0 (1 standard drink = 0.6 oz pure alcoho l) 2/week Sex Assigned at Date Recorded Not on file documented as of this encounter Last Filed Vital Signs Vital Sign Reading Time Taken Comments Blood Pressure 115/88 04/03/2020 10:30 AM HIDE COOKING OPERATOR Pulse 80 04/03/2020 10:30 AM HIDE COOKING OPERATOR Temperature 36.8 ??C (98.2 ??F) 04/03/2020 10:30 AM HIDE COOKING OPERATOR Respiratory Rate 16 04/03/2020 10:30 AM HIDE COOKING OPERATOR Oxygen Saturation 98% 04/03/2020 10:30 AM HIDE COOKING OPERATOR Inhaled Oxygen Concentration - - Weight 71.7 kg (158 lb) 04/03/2020 10:30 AM HIDE COOKING OPERATOR Height 172.7 cm (5' 8) 03/07/2020 2:28 PM CDT Body Mass Index 24.02 03/07/2020 2:28 PM CDT documented in this encounter Discharge Instructions Discharge InstructionsSaSophie arriaza RN - 04/03/2020 4:32 PM CST Patient meets criteria for discharge. Ambulated and voided. Pain under control. COOKING OPERATOR documented in this encounter Medications at Time [...] dose is 4000 mg in 24 hours. polyethylene glycol Take 1 Packet by mouth [...] the drain. documented as of this encounter Progress Notes Valentina Lockett MD - 04/03/2020 9:28 AM CST Surgery Update for Preop History and Physical For 04/03/2020 scheduled procedure Reviewed the medical History and Physical/Medications. Attached H&P Note Update to H&P includes: Patient and/or family denies any health changes since the H&P This patient has been evaluated by me today and has been found to be a suitable candidate for surgery. Aracelis Lockett MD 04/03/2020 COOKING OPERATOR documented in this encounter Procedure Notes Valentina Lockett MD - 04/03/2020 1:[address] [facility] Brief Operative Progress Note Surgery Date: 04/03/2020 Surgeon(s) and Role: * Valentina Lockett MD - Primary * Rajendra Le MD - Assisting Pre-op Diagnosis: * Right kidney stone [N20.0] staghorn, over 2 cm Post-op Diagnosis: * Right kidney stone [N20.0] Same Procedure(s) (LRB): PERCUTANEOUS NEPHROLITHOTOMY and right ureter stent change (Right) EBL: 10 cc Specimens: ID Type Source Tests Collected by Time Destination A : Right kidney stone Stone (Calculus) Kidney Stone CALCULI STONE ANALYSIS Valentina Lcokett MD 04/03/2020 1319 Complications / Findings: All stones were successfully removed. Aracelis Lockett MD COOKING OPERATOR Valentina Lockett MD - 04/03/2020 12:00 PM CST NAME: ESTEFANIA MCKEON MR#: [id number] CSN: [id number] AUTHENTICATING CLINICIAN: Valentina Lockett MD CONFIRM #: [id number] LOC: 1 OPERATIVE REPORT DATE OF OPERATION: 04/03/2020 : 1985 SURGEON: Valentina Lockett MD PREOPERATIVE DIAGNOSIS: Right kidney staghorn stone and multiple other stones (total stone volume over 5 cm). POSTOP DIAGNOSIS: Right kidney staghorn stone and multiple other stones (total stone volume over 5 cm). NAME OF PROCEDURE: Right percutaneous nephrolithotomy, right ureteral stent change (modifier 22). PREOP STATUS: Please refer to my initial hospital consultation note on February 24 and subsequent clinic visit note on March 07. Briefly, patient presented with a large staghorn kidney stone in the right kidney with severe hydronephrosis from the upper pole of the right kidney. She had a ureteral stent placed and then a percutaneous nephrostomy tube x2 placed by IR on February 26. The above operation was recommended and the patient agreed. It is anticipated the procedure will be difficult and challenging due to the large size of the stone, multiplicity, and a complete obstruction by the stone in the upper calyx. OPERATIVE PROCEDURE AND FINDINGS: The patient was placed in a prone position after completing general anesthesia. Her operative area was prepped and draped in the usual sterile fashion. IR, Dr. Le scrubbed in first. We discussed the best approach. We decided to use the lower position nephrostomy tube first. The guidewires, including a safety guidewire, was passed through the existing nephrostomy tube into the bladder and the nephrostomy tract was dilated to a 32 Guamanian. Once this was done, I scrubbed in. With a nephroscope, thelarge stone which had a big bifurcation, was located. Fortunately, the stone was relatively soft. With a CyberWand, the stone was completely fragmented. All the visible stone fragments were fragmented and suctioned out. I also used the grasper and stone basket catheters to remove the stone fragments for analysis. Once the stone was gone, the infundibulum was opened, the scope went into the renal pelvis. At this time, the 2 guidewires and the existing double-J stent were all visualized. I then tried to get to the upper pole stone through the same tract and since the upper pole stones were located dann different calyx, the stone could not be reached. Dr. Le and I discussed that, we decided to put in a 2nd tract. The 2nd tract was dilated, and a 32-Guamanian sheath was placed. I then put in a nephroscope and multiple stones were seen. I used a CyberWand and stone basket catheters, removed all thestones. We used fluoroscopy back and forth and back and forth and we could not see any residual stones anymore. Just when we were going to pull out the sheath, there was a shadow on the x-ray from the lower tract. We redilated the tract, replaced the working sheath, and I looked and looked. We could not find the stone. Apparently, the shadow was due to the residual contrast. At this time, Dr. Leand I both convinced that all stones were successfully removed. I then removed the existing stent through the nephroscope, and Dr. Le placed an 8.5-Guamanian x 26 cm new stent which started from the dilated cavity all the way down to the bladder. The 2nd nephrostomy tube was removed and both tracts were infiltrated with 0.25% Marcaine and were sutured with 3-0 Vicryl suture subcutaneously. The entire procedure went very successfully. No complications. Estimated blood loss was about 10 mL. She leftthe operating room in a satisfactory condition. Patient will be discharged today. GZ:MEDQ C: CONFIRM #: [id number] COOKING OPERATOR documented in this encounter Plan of Treatment Not on filedocumented as of this encounter Procedures Procedure Name Priority Date/Time Associated Comments Diagnosis IR FLUORO UP TO 1 HOUR Routine 04/03/2020 2:22 Kidney stones R esults for this PM HIDE COOKING OPERATOR procedure are i n the results section. CALCULI STONE ANALYSIS Routine 04/03/2020 1:[address] one Results for this PM HIDE COOKING OPERATOR procedure are i n the results section. PERCUTANEOUS 04/03/2020 10:33 Right kidney stone NEPHROLITHOTOMY AM HIDE COOKING OPERATOR Case Notes Staghorn stone removal PERCUTANEOUS NEPHROLITHOTOMY 04/03/2020 10:33 AM HIDE COOKING OPERATOR R ight kidney stone Case Notes Staghorn stone removal TYPE AND SCREEN STAT 04/03/2020 10:11 AM HIDE COOKING OPERATOR R esults for this procedure are in the results sec tion. ANTIBODY SCREEN STAT 04/03/2020 10:11 AM HIDE COOKING OPERATOR R esults for this procedure are in the results sec tion. BLOOD TYPE STAT 04/03/2020 10:11 AM HIDE COOKING OPERATOR Resu lts for this procedure are in the results sec tion. HEMOGLOBIN, BLOOD STAT 04/03/2020 10:11 AM HIDE COOKING OPERATOR Results for this procedure are in the results sec tion. documented in this encounter Results IR Fluoro Up To 1 Hour (04/03/2020 2:22 PM HIDE COOKING OPERATOR) Anatomical Region Laterality Modality X-Ray Angiography Specimen (Source) Anatomical Collection Method Collection Time Re ceived Time Location / / Volume Laterality 04/03/2020 11:22 AM HIDE COOKING OPERATOR Impressions 04/03/2020 4:08 PM HIDE COOKING OPERATOR Procedure: The procedure was performed i ntraoperatively with Dr. Lockett. The previously placed to right-sided nephrostomy tubes were utilized for access. Flow scopic guidance was used throughout. Followi ng sterile prep the lower nephrostomy tu be positioned in the ureter was removed over guidewire. A catheter and guidewire were manipulated into the bladder and a second safety wire placed. A 30 Guamanian ba lloon sheath system was then used to dil ate the percutaneous tract. Stone removal was carried out by Dr. Lockett. He then subsequently requested access to the upper pole calyx. That nephrostomy tube was removed over guidewire which was coiled in the redundant calyx and a safety wire placed. A second 30 Guamanian ballo on sheath system was used to dilate the tract. Stone removal was once again carried out by Dr. Lockett. The lower pole access was then reaccessed for final stone removal. At the conclusion I deployed a 8.5 Frenc h by 28 cm right ureteral stent. This was difficult because of the collapsed, redundant lower pole collecting system. The first deployment appeared that the proxi mal aspect of the stent was deployed jus t outside of the collecting system in the perirenal soft tissues. The stent was partially removed and redeployed with the loop formed in the collapsed lower pole calyceal system and the distal loop with in the bladder. String removal was also difficult but eventually accomplished. Then following 10 mL of Marcaine local a nesthesia a closed each incision with 4- 0 Vicryl subcuticular sutures. SUMMARY: 1. Percutaneous tract dilatation x2 for percutaneous intraoperative nephrolithotomy. 2. Right antegrade ureteral stent placem ent via the lower pole dilated calyx. Procedure Note Rajendra Le MD - 04/03/2020Formatti ng of this note might be different from the original. IMPRESSION Procedure: The procedure was performed i ntraoperatively with Dr. Lockett. The previously placed to right-sided nephrostomy tubes were utilized for access. Flow scopic guidance was used throughout. Following sterile prep the lower nephrostomy tube positioned in the ureter was removed over guidewire. A catheter and guidewire were manipulated into the bladder and a second safety wire placed. A 30 Guamanian balloon sheath system was then used to dilate the percutaneous tract. S tone removal was carried out by Dr. Lockett. He then subsequently requested access to the upper pole calyx. That nephrostomy tube was removed over guidewire which was coiled in the redundant calyx and a safety wire placed. A second 30 Guamanian balloon sheath system was used to dilate the tra ct. Stone removal was once again carried out by Dr. Lockett. The lower pole access was then reaccessed for final stone removal. At the conclusion I deployed a 8.5 Frenc h by 28 cm right ureteral stent. This was difficult because of the collapsed, redundant lower pole collecting system. The first deployment appeared that the proximal aspect of the stent was deployed just outside o f the collecting system in the perirenal soft tissues. The stent was partially removed and redeployed with the loop formed in the collapsed lower pole calyceal system and the distal loop within the bladder. String r emoval was also difficult but eventually accomplished. Then following 10 mL of Marcaine local a nesthesia a closed each incision with 4- 0 Vicryl subcuticular sutures. SUMMARY: 1. Percutaneous tract dilatation x2 for percutaneous intraoperative nephrolithotomy. 2. Right antegrade ureteral stent placem ent via the lower pole dilated calyx. Valentina Lockett MD RAD IR Calculi Stone Analysis (04/03/2020 1:19 PM HIDE COOKING OPERATOR) [facility] Method Time Signature Calculi See Note 04/06/2020 [facility] Composition 5:37 AM [facility] Comment: Calculi composed primarily of: 20% calcium oxalate monohydrate, 10% calcium oxalate dihydrate, and 70% calcium phosphate (hydroxy- and carb rbandon- apatite). INTERPRETIVE INFORMATION: Calculi (Stone ) analysis Calculi are the products of physiologica l processes that yield crystalline compounds in a matrix of bio logical compounds and blood. ??Matrix components are not repor cecille. ??The clinically significant crystalline components ident ified in calculi specimens are reported. ??Gross description may no t be consistent with composition determined by FTIR analysis. Performed By: [facility] [address] [place] [address] [place] Operator: Lenore Rivera MD Calculi Description See Note 04/06/2020 5:[address] [facility] Comment: Specimen consists of numerous, various s ized (some larger than 9 mm), brown/rodriguez, irregular calculi fragments. Calculi Mass See Note mg 04/06/2020 5:37 AM HIDE COOKING OPERATOR [facility] Comment: Specimen mass: 1.22 grams Calculi Number Numerous 04/06/2020 5:37 AM HIDE COOKING OPERATOR [facility] Calculi Size Various mm 04/06/2020 5:37 AM HIDE COOKING OPERATOR [facility] Specimen Anatomical Collection Method Collection Time Receive d Time (Source) Location / / Volume Laterality Stone (Calculus) KIDNEY STONE / 04/03/2020 1:19 PM 04/2020 2:41 Unknown HIDE COOKING OPERATOR PM HIDE COOKING OPERATOR Valentina Lockett MD LAB_1 Performing Organization Address [facility] Phon e Number [facility] [address] [phone] Antibody Screen (04/03/2020 10:11 AM HIDE COOKING OPERATOR) Patholo gist Method Time Signature Antibody Screen Negative 04/03/2020 [facility] Interpretation 11:18 AM HIDE COOKING OPERATOR BLOOD BANK Specimen Anatomical Collection Method / Collection Time Recei doc Time (Source) Location / Volume Laterality Blood Venipuncture 04/03/2020 10:11 04/03/2020 Butterfly / Unknown AM HIDE COOKING OPERATOR 10:18 AM HIDE COOKING OPERATOR Valentina Lockett MD LAB_1 Performing Organization Address [facility] Phon e Number [facility]LOOD [facility] [address] [place] [address] Blood Type (04/03/2020 10:11 AM HIDE COOKING OPERATOR) P athologist Signature ABO O 04/03/2020 [facility] 11:18 AM HIDE COOKING OPERATOR BLOOD BANK RH Positive 04/03/2020 [facility] 11:18 AM HIDE COOKING OPERATOR BLOOD BANK Specimen Anatomical Collection Method / Collection Time Recei doc Time (Source) Location / Volume Laterality Blood Venipuncture 04/03/2020 10:11 04/03/2020 Butterfly / Unknown AM HIDE COOKING OPERATOR 10:18 AM HIDE COOKING OPERATOR Valentina Lockett MD LAB_1 Performing Organization Address [facility] Phon e Number [facility] [address] [place] [address] Hemoglobin for all patients that have a Draw and Hold, Type and Screen, or Type and Cross ordered (04/03/2020 10:11 AM HIDE COOKING OPERATOR) P athologist Signature Hemoglobin 12.5 12.0 - 15.5 04/03/2020 [facility] g/dL 10:23 AM HIDE COOKING OPERATOR LABORATORY Specimen Anatomical Collection Method / Collection Time Recei doc Time (Source) Location / Volume Laterality Blood Venipuncture 04/03/2020 10:11 04/03/2020 Butterfly / Unknown AM HIDE COOKING OPERATOR 10:18 AM HIDE COOKING OPERATOR Valentina Lockett MD LAB_1 Performing Organization Address City/State/ZIP Code Phon e Number [facility] [address] [place] [address] documented in this encounter Visit Diagnoses Diagnosis Right kidney stone - Primary Calculus of kidney Kidney stones Calculus of kidney Right kidney stone Calculus of kidney documented in this encounter Admitting Diagnoses Diagnosis Right kidney stone Calculus of kidney documented in this encounter Administered Medications Inactive Administered Medications - up to 3 most recent administrations Medication Order MAR Action Action Date Dose Rate Site bupivacaine-epinephrine PF Given 04/03/2020 1:47 PM HIDE COOKING OPERATOR 10 mL Wound Site (SENSORCAINE) 0.25% -1:110246 injection ONCE PRN, Starting on Chelly 04/03/20 at 1347, Until Chelly 04/03/20 at 1940, Intra-op iopamidol (ISOVUE-370) 76 % injection Given 04/03/2020 1:48 PM HIDE COOKING OPERATOR 40 mL Wound Site ONCE PRN, Starting on Chelly 04/03/20 at 1348, Until Chelly 04/03/20 at 1940, Intra-op ketorolac (TORADOL) injection 15 mg Given 04/03/2020 2:30 PM HIDE COOKING OPERATOR 15 mg 15 mg, Intravenous, Q6H PRN, Other, inflammatory pain, Starting on Chelly 04/03/20 at 1409, Until Chelly 04/03/20 at 1940, For 3 days, If unable to tolerate oral inflammatory pain medication., Post-op lactated ringers infusion Started 04/03/2020 1:39 PM HIDE COOKING OPERATOR 25 mL/hr, Intravenous, CONTINUOUS, Starting on Chelly 04/03/20 at 1100, Administer on all preop surgery patients, ages 12 and older, unless specified differently in the Protocol for Preop Initiation of IV fluids Order Set., Pre-op Started 04/03/2020 11:00 AM HIDE COOKING OPERATOR 25 mL/hr 25 mL/hr sodium chloride 0.9% injection 10-60 mL 10-60 mL, Intravenous, PRN, Line Patency , Line Care, Starting on Chelly 04/03/20 at 1002, Until Chelly 04/03/20 at 1940, Pre-Procedure sodium chloride for irrigation Given 04/03/2020 1:51 PM HIDE COOKING OPERATOR 15,0 00 mL Wound Site 0.9 % ONCE PRN, Starting on Chelly 04/03/20 at 1351, Intra-op documented in this encounter Active and Recently Administered Medications Times are shown in HIDE COOKING OPERATOR. Scheduled Medication Order 04/01/2020 04/02/2020 04/03/2020 clindamycin in dextrose 5% (CLEOCIN) IVPB 900 mg (COMPLETED) 1120 (Given - Provider: India Garcia APRN, KEANU) 900 mg, Intravenous, Administer over 30 Minutes, ONCE, Chelly 04/03/20 at 1030, For 1 dose, Infuse within 60 minutes prior to incision., Pre-op Continuous Medication Order 04/01/2020 04/02/2020 04/03/2020 lactated ringers infusion 1100 ( Started - Provider: aSrah Jauregui RN)1339 (Started - Provider: India Garcia APRN, KEANU)1414 (Anesthesia Fluid - Provider: India Garcia APRN, KEANU) 25 mL/hr, Intravenous, at 25 mL/hr, CONT INUOUS, Starting Chelly 04/03/20 at 1100, Administer on all preop surgery patients, ages 12 and older, unless specified differently in the Protocol for Preop Initiation of IV fluids Order Set., Pre-op PRN Medication Order 04/01/2020 04/02/2020 04/03/2020 bupivacaine-epinephrine PF (SENSORCAINE) 0.25% -1:123027 injecti on 1347 (Given - Provider: Rajendra Le MD) ONCE PRN, Starting Chelly 04/03/20 at 1347, Intra-op HYDROcodone-acetaminophen (NORCO) 5-325 MG per tablet 1-2 Tablet 1-2 Tablet, Oral, Q4H PRN, Other, Modera te Pain (pain score 5-7), Severe Pain (pain score 8-10), Starting Chelly 04/03/20 at 1514, Do not give both IV and ORAL opioids for pain. Give oral if patient is able to take oral medications., Post-op HYDROmorphone (DILAUDID) injection 0.3-0.5 mg 0.3-0.5 mg, Intravenous, Q3H PRN, Other, Severe Pain (pain score 8-10) if patient unable to take PO, Starting Chelly 04/03/20 at 1514, Severe Pain (pain score 8-10) if patient unable to take PO. Hold if on GREY GOODS TESTER, Post-op iopamidol (ISOVUE-370) 76 % injection 1348 (Given - Provider: Rajendra Le MD) ONCE PRN, Starting Chelly 04/03/20 at 1348, Intra-op ketorolac (TORADOL) injection 15 mg 1430 (Given - Provider: Maryellen Fermin RN) 15 mg, Intravenous, Q6H PRN, Other, infl ammatory pain, Starting Chelly 04/03/20 at 1409, For 3 days, If unable to tolerate oral inflammatory pain medication., Post-op naloxone (NARCAN) injection 0.08 mg 0.08 mg, Intravenous, PRN, Other, Opioid Reversal, Starting Chelly 04/03/20 at 1514, Dilute 0.4mg/1mL with 9mL NS, then 0.08mg = 2mL. Give 0.08mg/2mL every 3 minutes as needed. Maximum total dose = 2mg., Post-op sodium chloride 0.9% injection 10-60 mL 10-60 mL, Intravenous, PRN, Line Patency , Line Care, Starting Chelly 04/03/20 at 1002, Pre-Procedure sodium chloride for irrigation 0.9 % 1351 (Given - Provider: Valentina Lockett MD) ONCE PRN, Starting Chelly 04/03/20 at 1351, Intra-op No Frequency Medication Order 04/01/2020 04/02/2020 04/03/2020 lactated ringers infusion 1015 ( Due) Starting Chelly 04/03/20 at 1002, For 1 dose, Serge Jauregui: cabinet override documented in this encounter Care Teams Co Pilot Relationship Specialty Start Date End Date Shannan Matthews DO PCP - General Family Practice 10/13/19 [address] [place], [place] [address] documented as of this encounter
--- OUTSIDE RECORDS SUMMARY | 2022-04-25 22:31 | XMS_ITS | Encounter Summary ---
:1985 Author Organization [employer] Address [address], [place] [address] Care Team Providers Name Role Phone Shannan Matthews Primary Care Provider Reason for Visit Reason Comments Discharge Follow Up Call Encounter Details Date Type Department Care Team Description 04/04/2020 Telephone Valentina Huizar MD Discharge Follow Up [facility] - [address] [place] [address] [id number] [phone] Social History Tobacco Use Types Packs/Day Years Used Date Smoking Tobacco: Never Smokeless Tobacco: Never Alcohol Use Standard Drinks/Week Comments Not Currently 0 (1 standard drink = 0.6 oz pure alcoho l) 2/week Sex Assigned at Date Recorded Not on file documented as of this encounter Nursing Notes Mattie Prince RN - 04/07/2020 4:29 PM CST Patient notified. CIATE PROFESSOR OF THEOLOGY Valentina Lockett MD - 04/07/2020 9:29 AM CST Yes. CIATE PROFESSOR OF THEOLOGY Janie Franklin RN - 04/04/2020 8:44 AM CST Per patient, no concerns at this time. Patient asks if you still want 04/22 as her date for stent removal? CIATE PROFESSOR OF THEOLOGY documented in this encounter Plan of Treatment Not on filedocumented as of this encounter Visit Diagnoses Not on filedocumented in this encounter Care Teams Executive Cyber Leader Relationship Specialty Start Date End Date Shannan Matthews DO PCP - General Family Practice 10/13/[address] [place] [address] [place] [id number] documented as of this encounter
--- OUTSIDE RECORDS SUMMARY | 2022-04-25 22:31 | XMS_ITS | Encounter Summary ---
:1985 [facility] Address [address] [address] Care Team Providers Name Role Phone Shannan Matthews DO Primary Care Provider Encounter Details Date Type Department Care Team Description 03/12/2020 Notes/Orders [facility] Interventional [facility] Radiology J, RN [address] [facility]. [place], [place] [id number] Social History Tobacco Use Types Packs/Day Years [...] filedocumented in this encounter Care Teams Associate Entertainment Editor Relationship Specialty Start Date End Date Shannan Matthews DO PCP - General Family Practice 10/13/19 [address] [place], [place] [id number] documented as of this encounter
--- OUTSIDE RECORDS SUMMARY | 2022-04-25 22:31 | XMS_ITS | Encounter Summary ---
:1985 Author Organization [facility] Address [address], [place] [address] Care Team Providers Name Role Phone CassieShannan Primary Care Provider Reason for Referral Procedure/Equipment (Routine) - Incomplete Specialty Diagnoses / Procedures Referred By Contact Refer red To Contact Diagnoses Right kidney stone Valentina Lockett MD Procedures Case Request OR - Urology Surgery: PERCUTANEOUS NEPHROLITHOTOMY [address] [place] [address] Referral ID Status Reason Start Date Expiration Date Visits V isits Requested Authorized [id number] Incomplete 03/07/2020 06/06/2021 1 1 Reason for Visit Reason Comments POST-OP,EXAM Encounter Details Date Type Department Care Team Description 03/07/2020 Office Visit Valentina Huizar MD Hydronephrosis of right kidney (Primary Dx); [facility] - [address] kidney stone; [address] Pyelonephritis of right kidney; [address] [place], [place] Duplicated left [place] [address] [phone] Social History Tobacco Use Types Packs/Day Years Used Date Smoking Tobacco: Never Smokeless Tobacco: Never Alcohol Use Standard Drinks/Week Comments Not Currently 0 (1 standard drink = 0.6 oz pure alcoho l) 2/week Sex Assigned at Date Recorded Not on file documented as of this encounter Progress Notes Valentina Lockett MD - 03/07/2020 12:00 PM CDT NAME: ESTEFANIA MCKEON MR#: [id number] CSN: [id number] AUTHENTICATING CLINICIAN: Valentina Lockett MD CONFIRM #: [id number] LOC: 417 CLINIC PROGRESS NOTE DATE OF VISIT: 03/07/2020 : 1985 This 34-year-old white female is here for hospital followup. About 10 days ago, over the weekend, patient was transferred directly from a [facility] to us for a staghorn right kidney stone with marked hydronephrosis. She also had fever and chills and leukocytosis, consistent with acute pyelonephritis. She underwent a right retrograde pyelogram, and stent placement and another CT scan was done with and without IV contrast. 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 In the right kidney, there is a single collecting system, but the staghorn stone, located in the upper infundibulum, caused complete obstruction. Therefore, the upper portion of the kidney was markedly dilated with hydronephrosis. Once the anatomy was delineated, I asked IR to put in percutaneous nephrostomy tubes. Thepatient has 2 clusters of stones, and 2 nephrostomy tubes were placed. This is to facilitate future PCNL. After the procedure, the patient was discharged with oral antibiotics. Right now, she feels fine. The right flank pain is from the nephrostomy tube and she still putting out very good urine output. From 1 bag, since 6 o'clock this morning, about 3.5 hours, there was about 150 mL of urine in that bag. She did not do a Lasix renogram as I ordered. I examined her. Her nephrostomy tube is in good place. There is no more right flank pain. The abdomen is soft and nontender. ASSESSMENT: I pulled out the nephrostogram, and CT scan and showed the patient. indeed, there is a large staghorn stone, 3 cm, branched out from the upper calyx. There is another cluster of stones, 5-6 stones. There are 2 large ones, each about 1 cm or more. Therefore, this patient has a large stone volume. Regarding management, as we discussed before, she will need a right percutaneous nephrolithotomy. I explained to her how the procedure is performed and most likely scenario is that once we are able to get into the collecting system, once we are able to remove the large staghorn stone, we will try to remove as much stones as possible. Therefore, she may need another nephrostomy working sheath. Once the stones are all cleared up, we probably will take the existing stent out, and re-stent her which will drain the upper pole of the kidney. The patient has very good understanding. The only problem is that theOR accessibility is so bad, and I advised her to be patient and will try to get to her as soon as we can. Answered all her questions. DIAGNOSES: 1.Right kidney staghorn stone. 2.Right hydronephrosis. 3.Recent acute right pyelonephritis. 4.Left duplicated collecting system. Visit time is over 25 minutes for counseling. GZ:MEDQ C: CONFIRM #: [id number] Valentina Lockett MD - 03/07/2020 9:30 AM CDT This office note has been dictated. documented in this encounter Plan of Treatment Not on filedocumented as of this encounter Results 2019 Novel Coronavirus (COVID-19) (04/01/2020 8:23 AM ORACLE IAM CONSULTANT) [facility] Method Time Signature COVID-19 Not Not 04/01/2020 [facility] Interpretation Detected Detected 9:39 PM CENTRAL LAB ORACLE IAM CONSULTANT Specimen Anatomical Collection Method Collection Time Receive d Time (Source) Location / / Volume Laterality Swab (Source Non-blood 04/01/2020 8:23 AM 0 Required) Collection / [employer]LE IAM CONSULTANT 10:23 AM ORACLE IAM CONSULTANT Unknown Narrative [facility] CENTRAL LAB - 04/01/2020 9:39 PM ORACLE IAM CONSULTANT Test performed by School Child Care Attendant Mediated Amplification. TMA has been shown to be equivalent to commercial real-time PCR t ests. This test has been authorized by the FDA under an Emergency Use Authorization (EUA) for use by authorized laboratories. Valentina Lockett MD LAB_1 Performing Organization Address City/State/ZIP Code Phon e Number [facility] [address] [phone] documented in this encounter Visit Diagnoses Diagnosis Hydronephrosis of right kidney - Primary Hydronephrosis Right kidney stone Calculus of kidney Pyelonephritis of right kidney Duplicated left renal collecting system documented in this encounter Care Teams Inside Sales Executive Relationship Specialty Start Date End Date Shannan Matthews DO PCP - General Family Practice 10/13/19 [address] [place] [address] documented as of this encounter
--- OUTSIDE RECORDS SUMMARY | 2022-04-25 22:31 | XMS_ITS | Encounter Summary ---
:1985 Author Organization [employer] Address [address] [place] [address] Care Team Providers Name Role Phone Shannan Matthews DO Primary Care Provider Reason for Visit Reason Comments INFECTION Encounter Details Date Type Department Care Team Description 03/23/2020 Nurse Triage [place] [facility] Shannan Matthews DO INFECTION [id number] [employer] [address] [facility] [place] [address] [place], [place] [id number] [phone] Social History Tobacco Use Types Packs/Day Years Used Date Smoking Tobacco: Never Smokeless Tobacco: Never Alcohol Use Standard Drinks/Week Comments Not Currently 0 (1 standard drink = 0.6 oz pure alcoho l) 2/week Sex Assigned at Date Recorded Not on file documented as of this encounter Nursing Notes Chon Cota RN - 03/23/2020 7:25 PM CST Pt calling who will be having urology surgery on 04/03/20. Pt has one kidney stint and two drainage backs in her back. Each drain produced 150 cc fluid today which is less than usual. Pt's cc is tiredness today and feels antibiotics are not working. She had 14 days of Cipro and has been on Keflex since 03/19/20 without feeling better. Took temp and is 98.0. Denied new or increased pain. Is not takingnarcotics and is out of them. Oral intake has been at least 8 glasses of water but tells me her urine is still dark brown. Says she has been sleeping most of day but alert and oriented now and family with her. Asked her to talk to Urologist stone banker to determine need for ED, OV or change in plan of care. Warm transfer to Careline to page stone bankerorder desk caller. Reason for Disposition ? ? [1] Taking antibiotic > 72 hours (3 days) AND [2] infected wound not improved (i.e., pain, pus, redness) Additional Information ??? Negative: Patient sounds very sick or weak to the triager Protocols used: WOUND [id number] STRIAL AUTOMATION ENGINEER documented in this encounter Plan of Treatment Not on filedocumented as of this encounter Visit Diagnoses Not on filedocumented in this encounter Care Teams Hadoop Consultant Relationship Specialty Start Date End Date Shannan Matthews DO PCP - General Family Practice 10/13/19 [address] [id number] documented as of this encounter
--- OUTSIDE RECORDS SUMMARY | 2022-04-25 22:31 | XMS_ITS | Encounter Summary ---
:1985 Author Organization [employer] Address [address] [place] [address] Care Team Providers Name Role Phone CassieShannan Jose VALDIVIA Primary Care Provider Reason for Visit Reason Comments Infection (Suspected) R kidney Encounter Details Date Type Department Care Team Description 03/25/2020 Emergency [facility] Scott Leger MD Dysuria; Center [address] Right kidney stone; [address] [place] [address] [id number] [phone] Social History Tobacco Use Types Packs/Day Years Used Date Smoking Tobacco: Never Smokeless Tobacco: Never Alcohol Use Standard Drinks/Week Comments Not Currently 0 (1 standard drink = 0.6 oz pure alcoho l) 2/week Sex Assigned at Date Recorded Not on file documented as of this encounter Last Filed Vital Signs Vital Sign Reading Time Taken Comments Blood Pressure 123/87 03/25/2020 7:31 PM DATE NIGHT CAREGIVER Pulse 83 03/25/2020 7:47 PM DATE NIGHT CAREGIVER Temperature 36.9 ??C (98.4 ??F) 03/25/2020 2:08 PM DATE NIGHT CAREGIVER Respiratory Rate 16 03/25/2020 7:01 PM DATE NIGHT CAREGIVER Oxygen Saturation 99% 03/25/2020 7:47 PM DATE NIGHT CAREGIVER Inhaled Oxygen Concentration - - Weight - - Height - - Body Mass Index - - documented in this encounter Discharge Instructions AttachmentsThe following attachments cannot be sent through Care Everywhere. Vaginal Yeast Infection (Omani)Dysuria (Omani)documented in this encounter Medications at Time of Discharge Medication Sig Dispensed Refills Start Date End Date cetirizine (ZYRTEC) 10 Take 10 mg by mouth 0 MG tablet daily. SUMAtriptan (IMITREX) Take 1 Tablet by 9 Tablet 2 08/22/19 20 50 MG mouth as needed for tabletIndications: Migraine. May repeat Headaches one tablet after 2 hours if needed. Maximum 4 tabs/24 hours and 9 days/month cephalexin (KEFLEX) 500 Take 1 Capsule by 30 Capsule 0 03/1903/29/2020 MG capsuleIndications: mouth three times a Pyelonephritis of right day for 10 days. kidney fluconazole (DIFLUCAN) Take 1 Tablet by 1 Tablet 0 020 03/25/2020 150 MG tablet mouth once for 1 dose. phenazopyridine Take 1 Tablet by 6 Tablet 0 03/25/202009/2019 (PYRIDIUM) 200 MG mouth three times a tablet day as needed for Pain for up to 2 days. acetaminophen (TYLENOL) Take 2 Tablets by 100 Tablet 11 02/2606/06/2020 500 MG tablet mouth three times a day. Maximum acetaminophen dose is 4000 mg in 24 hours ciprofloxacin (CIPRO) Take 1 Tablet by 14 Tablet 0 04/03/20 20 04/22/2020 500 MG tablet mouth two times a day. ciprofloxacin (CIPRO) Take 1 Tablet by 14 Tablet 0 03/24/20 20 04/01/2020 500 MG mouth two times a day tabletIndications: for 7 days. Pyelonephritis of right kidney fluconazole (DIFLUCAN) 0 03/25/2020 150 MG tablet HYDROcodone-acetaminoph Take 1-2 Tablets by 10 Tablet 0 04/202004/22/2020 en (NORCO) 5-325 MG mouth every 4 hours tablet as needed for Pain. Maximum acetaminophen dose is 4000 mg in 24 hours. oxyCODONE (ROXICODONE) Take 1 Tablet by 12 Tablet 0 020 04/01/2020 5 MG immediate release mouth every 6 hours tablet as needed for Pain. polyethylene glycol Take 1 Packet by 30 Each 0 02/27/2020 06/17/2020 (MIRALAX) 17 g packet mouth daily as needed for Constipation. propranolol (INDERALLA) Take 1 Capsule by 90 Capsule 3 08/2109/17/2020 80 MG 24 hour release mouth daily. capsuleIndications: Headaches, Essential hypertension (HRC) sertraline (ZOLOFT) 50 Take 50 mg by mouth 0 06/0 06/201906/06/2020 MG tablet daily. sodium chloride 0.9% Irrigate 5 mL as 14 Each 3 0 04/22/2020 injection needed. Flush each drain with 5 ml of saline as needed towards the body. Do not draw back on the drain. documented as of this encounter ED Notes Anthony Pritchard RN - 03/25/2020 7:53 PM CST Patient safely discharged to home with significant other. Patient alert and orientated X 4 at time of discharge. Patient up independently. Discharge criteria met, per EPPA. Patient given discharge handouts for yeast infection. Pt educated on these discharge handouts. Belongings checked & accounted for. Prescriptions for pyridium and diflucan given. Patient verbalized understanding of discharge instructions without further questions. Patient able to do teach back to RN re: discharge plan. Patient verbalized reasons to return. Patient ambulated outof the department. NIGHT CAREGIVER Sara Leger MD - 03/25/2020 4:52 PM CST Chief Complaint: Kidney infection, dysuria History of Present Illness: Estefania Mckeon is a non anticoagulated 34 y.o. female with a history of kidney stone and pyelonephritis status post right nephrostomy tube placement who presents to the emergency center for evaluation of kidney infection and worsening dysuria. The patient has a 30mm stone on her right side. She states she was given another course of Cipro by her urologist (Dr. Lockett) but her symptoms are worsening. She states since Tuesday (03/21/2020), she has been sleeping more than she has been awake. She also reports right flank/back pain, frontal/temporal headache, and blurred vision. She has fatigue quicklywith exertion. She states she felt warm this morning with a temperature of 99F which has resolved. She has no appetite. The patient describes her dysuria as a constant burning. No chest pain, cough, abdominal pain, nausea, vomiting, skin changes, rash, or leg swelling. Review of Systems Constitutional: Negative for fever and chills. Positive for fatigue and appetite change. HENT: Negative for ear pain, sore throat and rhinorrhea. Eyes: Negative for vision change. Respiratory: Negative for cough. Cardiovascular: Negative for chest pain, palpitations, and leg swelling. Gastrointestinal: Negative for nausea, vomiting and abdominal pain. Negative for diarrhea, constipation, and blood in stool. Genitourinary: Positive for dysuria (constant) and flank pain (right). Musculoskeletal: No leg pain or swelling. Positive for back pain. Skin: Negative for color change and rash. Neurological: Negative for weakness, numbness, and dizziness. Positive for headache (frontal, temporal) Medications: cephalexin (KEFLEX) 500 MG capsule cetirizine (ZYRTEC) 10 MG tablet ciprofloxacin (CIPRO) 500 MG tablet oxyCODONE (ROXICODONE) 5 MG immediate release tablet polyethylene glycol (MIRALAX) 17 g packet propranolol (INDERALLA) 80 MG 24 hour release capsule sertraline (ZOLOFT) 50 MG tablet sodium chloride 0.9% injection SUMAtriptan (IMITREX) 50 MG tablet Allergies: Amoxicillin Diphenhydramine Macrobid [Nitrofurantoin] Antihistamines, Diphenhydramine-Type Past Medical History: Vitamin D deficiency Recurrent kidney stones KEZIA (iron deficiency anemia) Bicornuate uterus Endometriosis Pyelonephritis of right kidney Right kidney stone Heartburn Migraines Pap smear abnormality of cervix Varicella Past Surgical History: Cystoscopy Appendectomy [place] teeth extraction Family History: Spont abortions Crohn's disease Heart disease Stroke Diabetes Hyperlipidemia Social History: The patient is unmarried, a non-smoker and does not consume alcohol. Initial ED vitals Triage Vitals [03/25/20 1408] Temp 36.9 ??C (98.4 ??F) Temp src Oral Pulse 79 Resp 12 BP 118/79 SpO2 99 % Physical Exam General: Appears nontoxic. Eyes: Pupils equally round and reactive. EOMs intact HEENT: Head is normal in appearance. Oropharynx is normal with moist mucus membranes. Neck is supple. No meningismus. Cardiovascular: Heart regular rate and rhythm Respiratory: Lungs clear no wheezing rales or rhonchi Abdomen: Normal bowel sounds soft nontender nondistended Pelvic normal external genitalia without erythema. Wet prep swab obtained Musculoskeletal: No asymmetry Skin: Normal, without rash. Nephrostomy tube without signs of infection. Lymphatic: No edema Neurologic: Alert and oriented x3 Cranial nerves 3-12 intact. Motor 5/5 in all extremities. Sensation intact light touch. Finger nose finger and Heel Knee [place] intact. Psychiatric: Normal affect. Laboratory Studies: CBC with Differential: WBC 8.5 (WNL), Hgb 12.8 (WNL), Plts 266 (WNL), o/w WNL Basic Metabolic Panel: Cr. 0.79 (WNL), Sodium 135 (L), o/w WNL Urinalysis: Hazy clarity, Protein 100, Large blood, Moderate leukocyte esterase, RBC >180 (H), WBC 21 (H), Occasional bacteria, Present mucus, o/w negative Vaginal Wet Prep: Positive fungal elements, Positive WBCs, o/w WNL Interventions: 1715 Normal Saline 1L, IV 1728 Toradol 15mg, IV ED Course: Nursing notes and vitals were reviewed. Past medical records were reviewed. I performed an exam of the patient as detailed above. The above labs were ordered (see results above). The above interventions were administered. Findings and plan explained to the patient. I fully addressed and answered all questions and concerns the patient had. The patient was discharged home with instructions regarding supportive care, medications, and reasons to return were reviewed. Following our examination and treatment, any identified emergency medical condition has resolved. Patient is stable for discharge and may pursue follow-up care as recommended. The patient was given prescription(s) as documented below. Discharge Medications: Medications Prescribed this Visit Disp Refills Start End phenazopyridine (PYRIDIUM) 200 MG tablet 6 Tablet 0 03/25/2020 03/27/2020 Take 1 Tablet by mouth three times a day as needed for Pain for up to 2 days. Oral fluconazole (DIFLUCAN) 150 MG tablet 1 Tablet 0 03/25/2020 03/25/2020 Take 1 Tablet by mouth once for 1 dose. Oral Last ED Vitals: Temp: 36.9 ??C (98.4 ??F) (03/25 1408) Temp src: Oral (03/25 1408) Pulse: 83 (03/25 1947) Resp: 16 (03/25 1901) BP: 123/87 (03/25 1931) SpO2: 99 % (03/25 1947) Impression and Plan: Estefania Mckeon is a 34 y.o. female with history of large right renal stone, pyelonephritis and right nephrostomy tube placement presents with ongoing urinary symptoms, fatigue and headache. The patient appears nontoxic and is afebrile. She appears comfortable and has no nuchal rigidity or meningismus. CBC and basic metabolic profile are unremarkable. Urinalysis reveals 21 WBCs and greater than 180RBCs per high-power field. As the patient has been on multiple courses of antibiotics recently I wasconcerned for possible yeast vaginal infection is contributing to her symptoms. Wet prep was obtained and was positive for fungal elements. I spoke with of Urology. The patient will be sent home with a prescription for Diflucan as well as Pyridium. She should keep her follow-up with Dr. House scheduled. Diagnosis: Final diagnoses: [R30.0] Dysuria [N20.0] Right kidney stone [B37.3] Yeast vaginitis I, Maribell Naylor, am serving as a scribe to document services personally performed by Dr. Leger based on my observations and the provider's statements to me. 03/25/2020 [facility] Portions of this medical record were completed by a scribe. UPON MY REVIEW AND AUTHENTICATION BY ELECTRONIC SIGNATURE, this confirms (a) I performed the applicable clinical services, and (b) the recordis accurate. Sara Leger MD 03/25/20 6260 NIGHT CAREGIVER documented in this encounter Plan of Treatment Not on filedocumented as of this encounter Procedures Procedure Name Priority Date/Time Associated Comments Diagnosis VAGINAL WET PREP STAT 03/25/2020 6:25 PM Resul ts for this DATE NIGHT CAREGIVER procedure are i n the results section. UA WITH MICROSCOPIC STAT 03/25/2020 5:26 PM Re sults for this DATE NIGHT CAREGIVER procedure are i n the results section. EXTRA LAVENDER TOP STAT 03/25/2020 4:49 PM Res ults for this TUBE DATE NIGHT CAREGIVER procedure are i n the results section. CBC AND DIFFERENTIAL STAT 03/25/2020 4:49 PM R esults for this PANEL DATE NIGHT CAREGIVER procedure are i n the results section. RAINBOW DRAW AND HOLD STAT 03/25/2020 4:49 PM Results for this DATE NIGHT CAREGIVER procedure are i n the results section. EXTRA LIGHT GREEN STAT 03/25/2020 4:49 PM Resu lts for this TUBE DATE NIGHT CAREGIVER procedure are i n the results section. BLOOD CULTURE HOLD STAT 03/25/2020 4:49 PM DATE NIGHT CAREGIVER EXTRA LIGHT GREEN TOP STAT 03/25/2020 4:49 PM Results for this ON ICE TUBE DATE NIGHT CAREGIVER procedure are i n the results section. COMPLETE BLOOD STAT 03/25/2020 4:49 PM Results for this COUNT-W/DIFF DATE NIGHT CAREGIVER procedure are i n the results section. BASIC METABOLIC PANEL STAT 03/25/2020 4:49 PM Results for this DATE NIGHT CAREGIVER procedure are i n the results section. EXTRA TUBES Routine 03/25/2020 4:30 PM Results f or this DATE NIGHT CAREGIVER procedure are i n the results section. EXTRA GOLD/SST TUBE Routine 03/25/2020 4:30 PM Re sults for this DATE NIGHT CAREGIVER procedure are i n the results section. documented in this encounter Results (ABNORMAL) Vaginal Wet Prep (03/25/2020 6:25 PM DATE NIGHT CAREGIVER) [facility] Method Time Signature Fungal Detected (A) Not detected 03/25/2020 [facility] Elements 7:42 PM DATE NIGHT CAREGIVER LABORATORY Clue Cells Not Detected Not Detected 03/25/2020 [facility] 7:42 PM DATE NIGHT CAREGIVER LABORATORY White Blood Detected (A) Not Detected 03/25/2020 [facility] Cells 7:42 PM DATE NIGHT CAREGIVER LAB[facility]ATORY Trich Not Detected Not detected 03/25/2020 [facility] Vaginalis 7:42 PM DATE NIGHT CAREGIVER LABORATORY Specimen Anatomical Collection Method Collection Time Receive d Time (Source) Location / / Volume Laterality Swab (Source VAGINAL CERVIX / Non-blood 03/25/2020 6:25 PM 03/25 6:29 Required) Unknown Collection / DATE NIGHT CAREGIVER PM DATE NIGHT CAREGIVER Unknown Narrative [facility] - 03/25/2020 7:42 P M DATE NIGHT CAREGIVER Methodology: ??Manual Microscopic Sara Leger MD LAB_1 Performing Organization Address City/State/ZIP Code Phon e Number [facility] [address] [place] [address] (ABNORMAL) UA with Microscopic (03/25/2020 5:26 PM DATE NIGHT CAREGIVER) [facility] Method Time Signature Urine Color Yellow Straw-Yello 03/25/2020 [facility] w 5:50 PM DATE NIGHT CAREGIVER LABORATORY Urine Clarity Hazy (A) Clear 03/25/2020 [facility] 5:50 PM DATE NIGHT CAREGIVER LABORATORY Specific 1.012 1.005 - 03/25/2020 [facility] [place], Urine 1.030 5:50 PM DATE NIGHT CAREGIVER LABORATORY PH Urine 6.0 5.0 - 8.0 03/25/2020 [facility] 5:50 PM DATE NIGHT CAREGIVER [facility]ORATORY Protein, Urine 100 (A) Negative 03/25/2020 [facility] Qual (mg/dL) 5:50 PM DATE NIGHT CAREGIVER LABORATORY Glucose Urine Negative Negative 03/25/2020 [facility] Qual (mg/dL) 5:50 PM DATE NIGHT CAREGIVER LABORATORY Ketones, Urine Negative Negative 03/25/2020 [facility] (mg/dL) 5:50 PM DATE NIGHT CAREGIVER LABORATORY Urobilinogen, <2.0 <2.0 03/25/2020 [facility] Urine (EU/dL) 5:50 PM DATE NIGHT CAREGIVER LABORATORY Bilirubin Negative Negative 03/25/2020 [facility] Urine 5:50 PM DATE NIGHT CAREGIVER [facility] Blood, Urine Large (A) Neg/Trace 03/25/2020 [facility] 5:50 PM DATE NIGHT CAREGIVER LAB[facility]ATORY Nitrite Urine Negative Negative 03/25/2020 [facility] 5:50 PM DATE NIGHT CAREGIVER [facility] Leukocyte Est. Moderate (A) Negative 03/25/2020 [facility] 5:50 PM DATE NIGHT CAREGIVER LAB[facility]ATORY Red Blood >180 (H) 0 - 3 /HPF 03/25/2020 [facility] Cells 5:50 PM DATE NIGHT CAREGIVER LABORATORY White Blood 21 (H) 0 - 5 /HPF 03/25/2020 [facility] Cells 5:50 PM DATE NIGHT CAREGIVER [facility]ORY Bacteria Occasional None Seen 03/25/2020 [facility] (A) /HPF 5:50 PM DATE NIGHT CAREGIVER LAB[facility] Squamous Occasional None Seen, 03/25/2020 [facility] Epithelial Occasional, 5:50 PM DATE NIGHT CAREGIVER LAB[facility] Cells Few /HPF Mucus Present (A) None Seen 03/25/2020 [facility] /HPF 5:50 PM DATE NIGHT CAREGIVER [facility] Urine Source Clean Catch 03/25/2020 [facility] 5:50 PM DATE NIGHT CAREGIVER [facility] Specimen Anatomical Collection Method Collection Time Receive d Time (Source) Location / / Volume Laterality Urine URINE SPECIMEN Non-blood 03/25/2020 5:26 PM 020 5:36 COLLECTION, CLEAN Collection / DATE NIGHT CAREGIVER PM DATE NIGHT CAREGIVER CATCH / Unknown Unknown Louisa Bates MD LAB_1 Performing Organization Address City/State/ZIP Code Phon e Number [facility] [address] [place] [address] Complete Blood Count-W/Diff (03/25/2020 4:49 PM DATE NIGHT CAREGIVER) athologist Signature WBC 8.5 3.5 - 10.5 03/25/2020 [facility] x10(9)/L 4:59 PM DATE NIGHT CAREGIVER LABORATORY RBC 4.36 3.90 - 03/25/2020 [facility] 5.03 4:59 PM DATE NIGHT CAREGIVER LABORATORY x10(12)/L Hemoglobin 12.8 12.0 - 03/25/2020 [facility] 15.5 g/dL 4:59 PM DATE NIGHT CAREGIVER LABORATORY HCT 40.2 34.9 - 03/25/2020 [facility] 44.5 % 4:59 PM DATE NIGHT CAREGIVER LABORATORY MCV 92.2 80.0 - 03/25/2020 [facility] 100.0 fL 4:59 PM DATE NIGHT CAREGIVER LABORATORY MCH 29.4 27.6 - 03/25/2020 [facility] 33.3 pg 4:59 PM DATE NIGHT CAREGIVER LABORATORY MCHC 31.8 31.5 - 03/25/2020 [facility] 35.2 g/dL 4:59 PM DATE NIGHT CAREGIVER LABORATORY RDW 12.5 11.9 - 03/25/2020 [facility] 15.5 % 4:59 PM DATE NIGHT CAREGIVER LABORATORY Platelets 266 150 - 450 03/25/2020 [facility] x10(9)/L 4:59 PM DATE NIGHT CAREGIVER LABORATORY Automated NRBC 0 <=0 /100 03/25/2020 [facility] WBC 4:59 PM DATE NIGHT CAREGIVER [facility] Neutrophil 4.7 1.7 - 7.0 03/25/2020 [facility] Absolute 10(9)/L 4:59 PM DATE NIGHT CAREGIVER LABORATORY Lymphocyte 2.6 1.0 - 4.8 03/25/2020 [facility] Absolute 10(9)/L 4:59 PM DATE NIGHT CAREGIVER LABORATORY Monocytes 0.7 0.2 - 0.9 03/25/2020 [facility] Absolute 10(9)/L 4:59 PM DATE NIGHT CAREGIVER LAB[facility]ORY Eosinophil 0.3 0.0 - 0.5 03/25/2020 [facility] Absolute 10(9)/L 4:59 PM DATE NIGHT CAREGIVER LABORATORY Basophil 0.0 0.0 - 0.3 03/25/2020 [facility] Absolute 10(9)/L 4:59 PM DATE NIGHT CAREGIVER [facility]ORY Immature Gran % 0.2 0.0 - 0.5 03/25/2020 [facility] % 4:59 PM DATE NIGHT CAREGIVER LABORATORY Specimen Anatomical Collection Method / Collection Time Recei doc Time (Source) Location / Volume Laterality Blood Venipuncture / 03/25/2020 4:49 03/25/2020 4:56 Unknown PM DATE NIGHT CAREGIVER PM DATE NIGHT CAREGIVER Louisa Bates MD LAB_1 Performing Organization Address [facility] Phon e Number [facility] [address] [place] [address] Blood Culture Hold (03/25/2020 4:49 PM DATE NIGHT CAREGIVER) P athologist Signature BLOOD CULTURE 03/26/2020 [facility] HOLD BOTTLE 10:47 PM DATE NIGHT CAREGIVER LABORATORY Specimen Anatomical Collection Method / Collection Time Recei doc Time (Source) Location / Volume Laterality Blood (Arm, Venipuncture 03/25/2020 4:49 03/25/2020 4 :56 left) Butterfly / Unknown PM DATE NIGHT CAREGIVER PM DATE NIGHT CAREGIVER Louisa Bates MD LAB_1 Performing Organization Address [facility] Phon e Number [facility] [address] [place] [address] Extra Light Green On Ice Tube (03/25/2020 4:49 PM DATE NIGHT CAREGIVER) Patholo gist Method Time Signature Extra Light Specimen 03/25/2020 [facility] Green On Ice will be held 6:00 PM DATE NIGHT CAREGIVER LABORATORY Tube Drawn for 5 days Specimen Anatomical Collection Method / Collection Time Recei doc Time (Source) Location / Volume Laterality Blood Venipuncture / 03/25/2020 4:49 03/25/2020 4:54 Unknown PM DATE NIGHT CAREGIVER PM DATE NIGHT CAREGIVER Louisa Bates MD LAB_1 Performing Organization Address [facility] Phon e Number [facility] [address] [place] [address] Extra Light Green Tube (03/25/2020 4:49 PM DATE NIGHT CAREGIVER) Patholo gist Method Time Signature Extra Light Specimen 03/25/2020 [facility] Green Tube will be held 6:00 PM DATE NIGHT CAREGIVER LABORATORY Drawn for 5 days Specimen Anatomical Collection Method / Collection Time Recei doc Time (Source) Location / Volume Laterality Blood Venipuncture / 03/25/2020 4:49 03/25/2020 4:56 Unknown PM DATE NIGHT CAREGIVER PM DATE NIGHT CAREGIVER Louisa Bates MD LAB_1 Performing Organization Address City/[facility] Phon e Number [facility] [address] [place] [address] Extra Lavender top tube (03/25/2020 4:49 PM DATE NIGHT CAREGIVER) Patholo gist Method Time Signature Extra Specimen 03/25/2020 [facility] Lavender Top will be held 6:00 PM DATE NIGHT CAREGIVER LABORATORY Drawn for 3 days Specimen Anatomical Collection Method / Collection Time Recei doc Time (Source) Location / Volume Laterality Blood Venipuncture / 03/25/2020 4:49 03/25/2020 4:56 Unknown PM DATE NIGHT CAREGIVER PM DATE NIGHT CAREGIVER Louisa Bates MD LAB_1 Performing Organization Address City/State/[facility] Phon e Number [facility] [address] [place] [address] (ABNORMAL) Basic Metabolic Panel (03/25/2020 4:49 PM DATE NIGHT CAREGIVER) Analysis Performed At Patho logist Time Signature Sodium 135 (L) 136 - 145 03/25/2020 [facility] mmol/L 5:20 PM DATE NIGHT CAREGIVER LABORATORY Potassium 4.2 3.5 - 5.1 03/25/2020 [facility] mmol/L 5:20 PM DATE NIGHT CAREGIVER LABORATORY Chloride 102 98 - 109 03/25/2020 [facility] mmol/L 5:20 PM DATE NIGHT CAREGIVER LABORATORY CO2 26 20 - 29 03/25/2020 [facility] mmol/L 5:20 PM DATE NIGHT CAREGIVER LABORATORY Anion Gap 7 7 - 16 03/25/2020 [facility] mmol/L 5:20 PM DATE NIGHT CAREGIVER LAB[facility]ORY Calcium 9.9 8.4 - 10.4 03/25/2020 [facility] mg/dL 5:20 PM DATE NIGHT CAREGIVER LABORATORY BUN 9 7 - 26 03/25/2020 [facility] mg/dL 5:20 PM DATE NIGHT CAREGIVER LABORATORY Creatinine 0.79 0.55 - 03/25/2020 [facility] 1.02 mg/dL 5:20 PM DATE NIGHT CAREGIVER LABORATORY GFR, Estimated >60 >60 03/25/2020 [facility] mL/min/1.7 5:20 PM DATE NIGHT CAREGIVER LABORATORY 3m2 Glucose 86 70 - 100 03/25/2020 [facility] mg/dL 5:20 PM DATE NIGHT CAREGIVER LABORATORY Comment: The given reference range is fo r the fasting state. Non-fasting reference range for glucose is 70 - 180 mg/dL. Specimen Anatomical Collection Method / Collection Time Recei doc Time (Source) Location / Volume Laterality Blood Venipuncture / 03/25/2020 4:49 03/25/2020 4:56 Unknown PM DATE NIGHT CAREGIVER PM DATE NIGHT CAREGIVER Louisa Bates MD LAB_1 Performing Organization Address City/State/ZIP Code Phon e Number [facility] [address] [place] [address] Extra Gold/SST Tube (03/25/2020 4:30 PM DATE NIGHT CAREGIVER) [facility] Method Time Signature Extra Specimen 03/25/2020 [facility] Gold/SST Tube will be held 6:00 PM DATE NIGHT CAREGIVER LABORATORY Drawn for 5 days Specimen Anatomical Collection Method / Collection Time Recei doc Time (Source) Location / Volume Laterality Blood Venipuncture / 03/25/2020 4:30 03/25/2020 4:59 Unknown PM DATE NIGHT CAREGIVER PM DATE NIGHT CAREGIVER Sara Leger MD LAB_1 Performing Organization Address City/[facility] Phon e Number [facility] [address] [place] [address] documented in this encounter Visit Diagnoses Diagnosis Dysuria Right kidney stone Calculus of kidney Yeast vaginitis Candidiasis of vulva and vagina Triage Assessment Note - Shiva Montaño RN - 03/25/2020 2:10 PM DATE NIGHT CAREGIVER Pt being treated for kidney infection - on 3rd round of ABX - Pt has 30mm kidney stone - infection not improving - sleeping more - more painful urination - c/o FERRARA - & spotty vision - Pain 10/30 NIGHT CAREGIVER documented in this encounter Administered Medications Inactive Administered Medications - up to 3 most recent administrations Medication Order MAR Action Action Date Dose Rate Site 0.9% sodium chloride bolus 1,000 Started 03/25/2020 5:15 PM DATE NIGHT CAREGIVER 1, 000 mL mL 1,000 mL, Intravenous, Administer over 0.6 Hours, ONCE, On Tue03/25/20 at 1715, For 1 dose ketorolac (TORADOL) injection 15 mg Given 03/25/2020 5:28 PM DATE NIGHT CAREGIVER 15 mg 15 mg, Intravenous, ONCE, On Tue03/25/20 at 1745, For 1 dose sodium chloride 0.9% injection 10-60 mL Given 03/25/2020 5:15 PM DATE NIGHT CAREGIVER 10 mL 10-60 mL, Intravenous, PRN, Line Patency, Line Care, Starting on Tue03/25/20 at 1619, Until Tue03/25/20 at 2157, For 8 hours documented in this encounter Active and Recently Administered Medications Due to Daylight Saving Time, this section may contain times in both CDT and DATE NIGHT CAREGIVER. Scheduled Medication Order 03/23/2020 03/24/2020 03/25/2020 0.9% sodium chloride bolus 1,000 mL (COMPLETED) 1715 (Started - Provider: Janis Jefferson RN)1751 (Infused - Provider: Janis Jefferson RN) 1,000 mL, Intravenous, Administer over 0 .6 Hours, ONCE, 03/25/20 at 1715, For 1 dose ketorolac (TORADOL) injection 15 mg (COMPLETED) 1728 (Given - Provider: Janis Jefferson RN) 15 mg, Intravenous, ONCE, 03/25/20 at 1745, For 1 dose PRN Medication Order 03/23/2020 03/24/2020 03/25/2020 sodium chloride 0.9% injection 10-60 mL 1715 (Given - Provider: Janis Jefferson RN)1728 (Canceled Entry - Provider: Janis Jefferson RN) 10-60 mL, Intravenous, PRN, Line Patency , Line Care, Starting 03/25/20 at 1619, For 8 hours No Frequency Medication Order 03/23/2020 03/24/2020 03/25/2020 sodium chloride 0.9% 0.9 % injection - ADS Override Pull 1715 (Due) Starting 03/25/20 at 1704, For 1 dose, Janis Jefferson: ciera bartholomew override documented in this encounter Care Teams Environmental Protection Economist Relationship Specialty Start Date End Date Shannan Matthews DO PCP - General Family Practice 10/13/19 [address] [address] documented as of this encounter
--- OUTSIDE RECORDS SUMMARY | 2022-04-25 22:31 | XMS_ITS | Encounter Summary ---
:1985 Author [facility] Address [address], [place] [address] Care Team Providers Name Role Phone Shannan Matthews DO Primary Care Provider Encounter Details Date Type Department Care Team Description 03/12/2020 Notes/Orders [facility] Radiology J, RN [address] [facility] [place], [place] [address] Social History Tobacco Use Types Packs/Day Years [...] filedocumented in this encounter Care Teams Manager Life Insurance Relationship Specialty Start Date End Date Shannan Matthews DO PCP - General Family Practice 10/13/19 [address] [place], [place] [address] documented as of this encounter
--- OUTSIDE RECORDS SUMMARY | 2022-04-25 22:31 | XMS_ITS | Encounter Summary ---
:1985 [facility] Address [address] [address] Care Team Providers Name Role Phone Shannan Matthews Primary Care Provider Reason for Referral Procedure/Equipment (Routine) - Incomplete Specialty Diagnoses / Procedures Referred By Contact Refer red To Contact Diagnoses Right kidney stone Valentina Lockett MD Procedures XR Abd Flat/KUB 1 View [address] [place] [address] Referral ID Status Reason Start Date Expiration Date Visits V isits Requested Authorized [id number] Incomplete 04/10/2020 07/10/2021 1 1 MOBILE Encounter Details Date Type Department Care Team Description 04/03/2020 Notes/Orders Valentina Huizar MD Right kidney stone [facility] - [address] (Pr imary Dx) Urology [facility] [address] [place] [facility] [place] [address] [id number] [phone] Social History Tobacco Use Types Packs/Day Years Used Date Smoking Tobacco: Never Smokeless Tobacco: Never Alcohol Use Standard Drinks/Week Comments Not Currently 0 (1 standard drink = 0.6 oz pure alcoho l) 2/week Sex Assigned at Date Recorded Not on file documented as of this encounter Plan of Treatment Not on filedocumented as of this encounter Results XR Abd Flat/KUB 1 View (04/22/2020 10:26 AM GM MOBILE) Anatomical Region Laterality Modality Abdomen Digital Radiography Specimen (Source) Anatomical Collection Method Collection Time Re ceived Time Location / / Volume Laterality 04/22/2020 10:18 AM GM MOBILE Impressions 04/22/2020 11:30 AM GM MOBILE COMPARISON: ??CT from 02/25/2020. FINDINGS: ??Overall, stone [...] kidney stone - Primary Calculus of kidney Right kidney stone Calculus of kidney documented in this encounter Care Teams Pipe Cleaner Relationship Specialty Start Date End Date Shannan Matthews DO PCP - General Family Practice 10/13/19 [address] [id number] documented as of this encounter
--- OUTSIDE RECORDS SUMMARY | 2022-04-25 22:31 | XMS_ITS | Encounter Summary ---
:1985 Author Organization [facility] Address [address] [place] [address] Care Team Providers Name Role Phone Shannan Matthews Primary Care Provider Encounter Details Date Type Department Care Team Description 04/01/[address] [place] [address] [facility], Drive-Up Right kidney [place] [address] [place] [address] Social History Tobacco Use Types Packs/Day Years [...] Date/Time Associated Comments Diagnosis 2019 NOVEL Routine 04/01/2020 8:23 AM Right kidney stone Res ults for this CORONAVIRUS MANAGER SURGICAL procedure are i n the results section. documented in this encounter Results 2019 Novel Coronavirus (COVID-19) (04/01/2020 8:23 AM MANAGER SURGICAL) [facility] gist Method Time Signature COVID-19 Not Not 04/01/2020 [facility] Interpretation Detected Detected 9:39 PM CENTRAL LAB MANAGER SURGICAL Specimen Anatomical Collection Method Collection Time Receive d Time (Source) Location / / Volume Laterality Swab (Source Non-blood 04/01/2020 8:23 AM 0 Required) Collection / MANAGER SURGICAL 10:23 AM MANAGER SURGICAL Unknown Narrative [facility] - 04/01/2020 9:39 PM MANAGER SURGICAL Test performed by [employer] Stonem[employer] Mediated Amplification. TMA has been shown to be equivalent to commercial real-time PCR t ests. This test has been authorized by the FDA under an Emergency Use Authorization (EUA) for use by authorized laboratories. Valentina Lockett MD LAB_1 Performing Organization Address City/State/ZIP Code Phon e Number [facility] [address] [address] documented in this encounter Visit Diagnoses Diagnosis Right kidney stone Calculus of kidney documented in this encounter Care Teams Management Scientist Relationship Specialty Start Date End Date Shannan Matthews DO PCP - General Family Practice 10/13/19 [address] [place] [address] documented as of this encounter
--- OUTSIDE RECORDS SUMMARY | 2022-04-25 22:31 | XMS_ITS | Encounter Summary ---
:1985 Author Organization [facility] Address [address] [place] [address] Care Team Providers Name Role Phone Shannan Matthews DO Primary Care Provider Reason for Visit Auth/Cert Specialty Diagnoses / Procedures Referred By Contact Refer red To Contact Diagnoses Right kidney stone Procedures PERCUTANEOUS NEPHROLITHOTOMY Referral ID Status Reason Start Date Expiration Date Visits Requ ested Visits Authorized [id number] 1 1 Encounter Details Date Type Department Care Team Description 04/03/2020 Anesthesia Event [employer] Bharath Lemos MD [address] [place] [address] India James APRN, CRNA [address] [place] [address] [address] [facility]. [place], [place] [address] Anesthesia Record Procedure Summary Procedure Name Responsible Anesthesia Start Anesthesia Stop Anesthesiologist Time Time PERCUTANEOUS Kemal Lemos MD 04/03/20 1106 04/03/20 1 414 NEPHROLITHOTOMY, staghorn stone removal, and right ureter stent change (Right) Events Date Time Event Comment 04/03/2020 1033 1106 An Start 1106 Quick Note Anesthesia start time denotes sedation started by ADVISORY SERVICES ASSOCIATE currently on case; patient continuo usly monitored to O.R. By ADVISORY SERVICES ASSOCIATE 1109 An Start Data 1111 / Present 1114 An Induction 1117 An Intubation 1126 MD/DO Present 1248 MD/DO Present 1347 An Local Anesthetic By Surgeon 1355 MD/DO Present 1406 An Extubation Purposeful movem ent with spontaneous respirations and adequate air exchange. Suctio sandra and ETT removed. Transferred with oxygen to recovery. 1407 MD/DO Present 1408 an stop data 1414 Care Handoff Note I discussed wi th the receiving nurse and we: 1) Ident ified the patient, chamorro family member(s) or patient surrogate 2) Identified th e responsible practitioner 3) Reviewed the pertinent medical history 4) Discussed the surgical/procedu re course 5) Reviewed intra-op anesthe chloé management and issues during an esthesia 6) Set expectations for the post-procedure period 7) Allowe d opportunity for questions and ac knowledgement of understanding of report Electronically signed by India Garcia APRN, ADVISORY SERVICES ASSOCIATE 1414 An Stop Care transferred . Name Total midazolam injection 2 mg/2 mL (VERSED) 2 mg fentaNYL injection (SUBLIMAZE) 100 mcg HYDROmorphone injection 1 mg/mL (DILAUDID) 1 mg lidocaine 1% PF injection (XYLOCAINE) 100 mg propofol 10 mg/mL IV (DIPRIVAN) 200 mg rocuronium injection (ZEMURON) 70 mg neostigmine 5 mg/5mL injection (PROSTIGMIN) 3.5 mg glycopyrrolate 0.2 mg/mL injection (ROBINUL) 0.7 mg ondansetron injection (ZOFRAN) 4 mg dexamethasone 4 mg/mL injection (DECADRON) 4 mg phenylephrine 100 mcg/mL in NaCl 0.9% syringe 600 mcg dexmedetomidine (PRECEDEX) 200 mcg in sodium chloride 0.9 % 50 mL (4 77.08 mcg mcg/mL) infusion clindamycin in dextrose 5% (CLEOCIN) IVPB 900 mg 900 m g lactated ringers infusion 1,200 mL Agents Name O2 Air Sevoflurane () Identified Agent Name Blood No blood administrations on file. Lines, Drains, and Airways Type Details Placement Removal Nephrostomy/Nephrourete 02/25/20; 1722; No; 02/25/20 1722 by 05/11 1323 by rostomy Right; 10 Fr.; Sarah Azar Schueppert, Katie [id number]; Yes; 1 RN D, RN (middle pole) Nephrostomy/Nephrourete 02/25/20; 1814; No; 02/25/20 1814 by 05/11 1323 by rostomy Right; 10 Fr.; Sarah Azar, Laura Braun [id number]; Yes; 2 RN D, RN (upper pole) Peripheral IV Placement Date: 04/03/20 1100 by 04/03/20 1631 b y 04/03/20; Placement Sarah Jauregui Sanche z, Sari, RN Time: 1100; RN Pre-existing: No; Inserted by?: RN; Size (Gauge): 20 G; Orientation: Right; Site Prep: ChloraPrep; Insertion attempts: 1; Removal Date: 04/03/20; Removal Time: 163 ETT Placement Date: 04/03/20 1117 by 04/03/20 1406 b y 04/03/20; Placement India Garcia, India Garcia, Time: 1117; Placed By: USED CAR MANAGER, ADVISORY SERVICES ASSOCIATE USED CAR MANAGER, JOSH Garcia ADVISORY SERVICES ASSOCIATE; Induction Type: Pre-O2, IV; Masking: Easy; ETT Type: ETT; Orientation: Left; Size (mm): 7.0; Depth Secured (cm): 21 cm; Cuffed: Cuffed; Cuff Volume: 5 mL; Airway Leak: 25 cm H20; Intubation Method: DL; Cormack_Lehane Glottic Grade: Grade 1; Glottic View: Cords Open, Cords Clear; Blade: Mohr; Blade Size: 2; Insertion attempts: 1; Difficulty: Atraumatic; Adjunct Equipment: Stylet; Placement Verification: BBSE, Positive EtCO2, capnometry, auscultation; Teeth and Lips Unchanged: Unchanged; Removal Date: 04/03/20; Removal Time: 1406 Incision/Surgical Site 04/03/20; 1329; #1; 04/03/20 1329 by 03/23 07/12 1631 by Yes; Back; Aparna Manzano Katie D, Sanchez, Sari, MICHAEL Right; 04/03/20; 1631 RN documented in this encounter Social History Tobacco Use Types Packs/Day Years Used Date Smoking Tobacco: Never Smokeless Tobacco: Never Alcohol Use Standard Drinks/Week Comments Not Currently 0 (1 standard drink = 0.6 oz pure alcoho l) 2/week Sex Assigned at Date Recorded Not on file documented as of this encounter Miscellaneous Notes Anesthesia Postprocedure Evaluation - Kemal Lemos MD - 04/03/2020 5:18 PM CST [facility] Anesthesia Post-op Note Patient: Estefania Mckeon Post-Op Diagnosis: Right kidney stone Procedure Performed: Procedure(s): Right - PERCUTANEOUS NEPHROLITHOTOMY, staghorn stone removal, and right ureter stent change - Wound Class: 2 CLEAN-CONTAMINATED Anesthesia Type: General Post-op vital signs: Vitals Value Taken Time BP 102/76 04/03/20 1601 Temp 36.2 ??C (97.2 ??F) 04/03/20 1430 Pulse 70 04/03/20 1617 Resp 13 04/03/20 1506 SpO2 97 % 04/03/20 1617 Vitals shown include unvalidated device data. Pain Score: Presence Of Pain: complains of pain/discomfort Preferred Pain Scale: number (Numeric Rating Pain Scale) Pain Rating (0-10): Rest: other (see comments) Pain Rating (0-10): Activity: 9 Post-op assessment: No anesthesia complication. Patient location: Phase 2 Airway Status: Patent Cardiovascular function: Satisfactory Hydration status: Satisfactory PONV: None Level of Consciousness: Awake Fully Participates Postop Assessment: Patient tolerated procedure well. Electronically signed by: Kemal Lemos MD 04/03/2020 5:18 PM RICT ASSOCIATE JUDGE Anesthesia Preprocedure Evaluation - Kemal Lemos MD - 04/03/2020 10:23 AM CST [facility] Anesthesia Pre-op Evaluation Procedure: Procedure(s): Right - PERCUTANEOUS NEPHROLITHOTOMY HPI: 34 y.o. old female with Right kidney stone NPO Status: Allergies Allergen Reactions ??? Amoxicillin Hives ??? [...] right kidney ??? Right kidney stone Past Surgical History: Procedure Laterality Date ??? CYSTOSCOPY 2004 Kidney stones ??? HX APPENDECTOMY 1998 ??? WISDOM TEETH EXTRACTION Outpatient Medications Marked as Taking for the 04/03/20 encounter (Hospital Encounter) Medication Sig Dispense Refill ??? acetaminophen (TYLENOL) [...] back on the drain. 14 Each 3 Current Facility-Administered Medications Medication Dose Route Frequency ??? clindamycin in dextrose 5% (CLEOCIN) IVPB 900 mg 900 mg Intravenous Once ??? lactated ringers infusion ??? sodium chloride 0.9% injection 10-60 mL 10-60 mL Intravenous PRN Labs: Lab Results Component Value Date/Time SODIUM 135 (L) 03/25/2020 04:49 PM K 4.2 03/25/2020 04:49 PM CHLORIDE 102 03/25/2020 04:49 PM BUN 9 03/25/2020 04:49 PM CREATININE 0.79 03/25/2020 04:49 PM GLUCOSE 86 03/25/2020 04:49 PM Lab Results Component Value Date/Time WBC 8.5 03/25/2020 04:49 PM HGB 12.8 03/25/2020 04:49 PM HCT 40.2 03/25/2020 04:49 PM PLTS 266 03/25/2020 04:49 PM No results found for: INR Blood Bank: Antibody Screen (no units) Date Value 06/19/2018 NEG EKG: No results found for this or any previous visit. Physical Exam: Ht 5' 8 Wt 72.1 kg (159 lb) BMI 24.18 kg/m?? Assessment/Plan: Review of Systems Patient does not have GERD. Patient is not a current smoker. The patient reports alcohol use. Patient denies any recent URI. History of PONV: No. History of motion sickness: No. Patient denies any personal or family history of anesthesia complications (PONV). Exam Mental Status: Alert and oriented. Mallampati score: II (Two). Mouth opening: Normal Thyromental Distance: > 3 finger breadths and Normal Neck Extension: Full Neck Circumference > 40 cm?: No Previous airway assessment: Previously EASY intubation.,. Current airway assessment:Normal Dentition: Normal. Cardiac Exam: Regular rate and rhythm. Respiratory Exam: Breath sounds clear to auscultation Assessment ASA Status: 2 . Plan Anesthesia type: General and ETT Induction: Maintenance: Postoperative pain management (PONV): Plan for postoperative opioid use PONV Risk Score Peds:0 PONV Risk Score Adult: 3 PONV Prophylaxis (planned): Ondansetron and Decadron Anesthetic plan, risks, benefits and alternatives discussed with: Patient. H&P Reviewed and Patient examined, no change observed IV access Antibiotics per surgery Electronically signed by: Kemal Lemos MD 04/03/2020 10:23 AM RICT ASSOCIATE JUDGE documented in this encounter Plan of Treatment Not on filedocumented as of this encounter Visit Diagnoses Not on filedocumented in this encounter Administered Medications Inactive Administered Medications - up to 3 most recent administrations Medication Order MAR Action Action Date Dose Rate Site clindamycin in dextrose 5% Given 04/03/2020 11:20 AM DISTRICT ASSOCIATE JUDGE 900 mg (CLEOCIN) IVPB 900 mg 900 mg, Intravenous, Administer over 30 Minutes, ONCE, On Chelly 04/03/20 at 1030, For 1 dose, Infuse within 60 minutes prior to incision., Pre-op dexamethasone (DECADRON) injection Given 04/03/2020 11:14 AM DISTRICT ASSOCIATE JUDGE 4 mg Intravenous, Starting on Chelly 04/03/20 at 1114, Until Chelly 04/03/20 at 1414 dexmedetomidine (PRECEDEX) Started 04/03/2020 11:25 AM 0.5 mcg/kg/ hr 8.96 mL/hr 200 mcg in sodium chloride DISTRICT ASSOCIATE JUDGE 0.9 % 50 mL (4 mcg/mL) infusion Starting on Chelly 04/03/20 at 1125 fentaNYL (SUBLIMAZE) injection Given 04/03/2020 11:14 AM DISTRICT ASSOCIATE JUDGE 100 mcg Intravenous, Starting on Chelly 04/03/20 at 1114, Until Chelly 04/03/20 at 1414 glycopyrrolate (ROBINUL) injection Given 04/03/2020 1:58 PM DISTRICT ASSOCIATE JUDGE 0.7 mg Starting on Chelly 04/03/20 at 1358, Until Chelly 04/03/20 at 1414 HYDROmorphone (DILAUDID) injection Given 04/03/2020 1:33 PM DISTRICT ASSOCIATE JUDGE 0.5 mg Starting on Chelly 04/03/20 at 1139, Until Chelly 04/03/20 at 1414 Given 04/03/2020 11:39 AM DISTRICT ASSOCIATE JUDGE 0.5 mg lactated ringers infusion Started 04/03/2020 1:39 PM DISTRICT ASSOCIATE JUDGE 25 mL/hr, Intravenous, CONTINUOUS, Starting on Chelly 04/03/20 at 1100, Administer on all preop surgery patients, ages 12 and older, unless specified differently in the Protocol for Preop Initiation of IV fluids Order Set., Pre-op Started 04/03/2020 11:00 AM DISTRICT ASSOCIATE JUDGE 25 mL/hr 25 mL/hr lidocaine PF (XYLOCAINE) 1 % injection Given 04/03/2020 11:14 AM DISTRICT ASSOCIATE JUDGE 100 mg Intravenous, Starting on Chelly 04/03/20 at 1114 midazolam (VERSED) injection Given 04/03/2020 11:06 AM DISTRICT ASSOCIATE JUDGE 2 mg Intravenous, Starting on Chelly 04/03/20 at 1106, Until Chelly 04/03/20 at 1414 neostigmine (PROSTIGMINE) injection Given 04/03/2020 1:58 PM DISTRICT ASSOCIATE JUDGE 3.5 mg Intravenous, Starting on Chelly 04/03/20 at 1358, Until Chelly 04/03/20 at 1414 ondansetron (ZOFRAN) injection Given 04/03/2020 11:32 AM DISTRICT ASSOCIATE JUDGE 4 mg Intravenous, Starting on Chelly 04/03/20 at 1132, Until Chelly 04/03/20 at 1414 phenylephrine-NaCl 0.9% (KAILEE-SYNEPHRINE) Given 04/03/2020 1:32 P M DISTRICT ASSOCIATE JUDGE 100 mcg injection Intravenous, Starting on Chelly 04/03/20 at 1149, Until Chelly 04/03/20 at 1414 Given 04/03/2020 1:05 PM DISTRICT ASSOCIATE JUDGE 100 mcg Given 04/03/2020 12:48 PM DISTRICT ASSOCIATE JUDGE 100 mcg propofol (DIPRIVAN) 10 mg/mL injection Given 04/03/2020 11:16 AM DISTRICT ASSOCIATE JUDGE 50 mg Intravenous, Starting on Chelly 04/03/20 at 1114, Until Chelly 04/03/20 at 1414 Given 04/03/2020 11:14 AM DISTRICT ASSOCIATE JUDGE 150 mg rocuronium (ZEMURON) injection Given 04/03/2020 12:50 PM DISTRICT ASSOCIATE JUDGE 10 mg Intravenous, Starting on Chelly 04/03/20 at 1114, Until Chelly 04/03/20 at 1414 Given 04/03/2020 12:16 PM DISTRICT ASSOCIATE JUDGE 10 mg Given 04/03/2020 11:14 AM DISTRICT ASSOCIATE JUDGE 50 mg documented in this encounter Care Teams General Accountant Relationship Specialty Start Date End Date Shannan Matthews DO PCP - General Family Practice 10/13/19 [address] [place] [address] documented as of this encounter
--- OUTSIDE RECORDS SUMMARY | 2022-04-25 22:31 | XMS_ITS | Encounter Summary ---
:1985 Author [facility] Address [address] [place] [address] Care Team Providers Name Role Phone Shannan Matthews Primary Care Provider Reason for Visit Reason Comments INFECTION, KIDNEY Encounter Details Date Type Department Care Team Description 03/23/2020 Nurse Triage Careline Unknown, Physician INFECTION, KIDNEY [address] [place], [place] [address] [place], [place] [phone] [id number] Social History Tobacco Use Types Packs/Day Years Used Date Smoking Tobacco: Never Smokeless Tobacco: Never Alcohol Use Standard Drinks/Week Comments Not Currently 0 (1 standard drink = 0.6 oz pure alcoho l) 2/week Sex Assigned at Date Recorded Not on file documented as of this encounter Nursing Notes Rose Nolan RN - 03/23/2020 7:53 PM CST Verified patient identity: Yes Situation/Background (brief explanation of current symptoms/situation): Pt started abx 03/21, pt feels worse than when she started abx. Pt feels lethargic, painful urination. Does the patient currently have any of these Covid symptoms? (Shortness of Breath/Difficulty of breathing, Sore Throat, Fever, Cough, New loss of smell or loss of taste) No Covid19 Symptoms - Other symptoms Reviewed with patient pertinent medical history(as it related to the call): Yes Reviewed with patient pertinent medications (as they relate to call): Yes Reviewed with patient pertinent allergies (as they relate to call): Yes If directing the patient to schedule an appointment or be seen in the appropriate urgent care: In the last 14 days have you had close contact with a person known to have COVID-19 or been instructed to self-isolate? Close contact is defined as being within 6 feet for more than 15 minutes to persons with confirmed COVID-19 during the infectious period. The infectious period for COVID-19 starts 48 hours before someone???s symptoms appear and lasts for 10 days after symptoms first appear. No Reason for Disposition ? ? [1] Taking antibiotics > 24 hours AND [2] symptoms WORSE Answer Assessment - Initial Assessment Questions 1. INFECTION: What infection is the antibiotic being given for? Kidney infection 2. ANTIBIOTIC: What antibiotic are you taking How many times per day? Was hospitalized on iv abs, than cipro and now pt is on Keflex 3. DURATION: When was the antibiotic started? 03/21 4. MAIN CONCERN OR SYMPTOM: What is your main concern right now? Feels worse than when starting 5. [id number]: Are you getting better, staying the same, or getting worse compared to when you first started the antibiotics? If getting worse, ask: In what way? worse 6. FEVER: Do you have a fever? If so, ask: What is your temperature, how was it measured, and when did it start? No 7. SYMPTOMS: Are there any other symptoms you're concerned about? If so, ask: When did it start? Dark urine with sediment, Lethargic, 8. FOLLOW-UP APPOINTMENT: Do you have a follow-up appointment with your doctor? 04/01 Protocols used: INFECTION ON ANTIBIOTIC FOLLOW-UP [id number] PN NT note Pt calling who will be having urology [...] and oriented now and family with her. ?? 8:00 PM Paged local combination truck driver for PN /URO Per Dr Tony Kauffman [facility] Call clinic in AM If fever or chills go to ED Pt notified The Careline is open 13/12. Call back with any questions or concerns. OWING MANAGER Denise Guadarrama - 03/23/2020 7:36 PM CST Verified patient identity using three identifiers: Yes Caller's relationship to patient: Self At which care system or clinic is the patient normally seen? [facility] Symptoms Describe the reason for call/symptoms (include location and duration if applicable): PN Urology pt, states she's felt tired today and is concerned that the antibiotic is not working. Plan:The current callback time to speak with a nurse is 1hr. If your symptoms change or worsen, or if you have not received a call back in the stated timeframe, please call us back OWING MANAGER documented in this encounter Plan of Treatment Not on filedocumented as of this encounter Visit Diagnoses Not on filedocumented in this encounter Care Teams General Inspector Relationship Specialty Start Date End Date Shannan Matthews DO PCP - General Family Practice 10/13/19 [address] [id number] documented as of this encounter
--- OUTSIDE RECORDS SUMMARY | 2022-04-25 22:31 | XMS_ITS | Encounter Summary ---
:1985 Author Organization [facility] Address [address] [place] [address] Care Team Providers Name Role Phone Shannan Matthews Primary Care Provider Reason for Referral Procedure/Equipment (Routine) - Incomplete Specialty Diagnoses / Procedures Referred By Contact Refer red To Contact Diagnoses Kidney stones Valentina Lockett MD Procedures IR Fluoro Up To 1 Hour [address] [place] [address] Referral ID Status Reason Start Date Expiration Date Visits V isits Requested Authorized [id number] Incomplete 03/07/2020 06/06/2021 1 1 [employer]G [employer]SEMBLER Reason for Visit Auth/Cert Specialty Diagnoses / Procedures Referred By Contact Refer red To Contact Diagnoses Right kidney stone Procedures PERCUTANEOUS NEPHROLITHOTOMY Referral ID Status Reason Start Date Expiration Date Visits Requ ested Visits Authorized [id number] 1 1 Encounter Details Date Type Department Care Team Description 04/03/2020 Hospital Encounter [facility] Angel Lockett MD Right kidney stone; [address] Kidney stones [address] [facility] [address] [place] [address] Social History Tobacco Use Types Packs/Day Years Used Date Smoking Tobacco: Never Smokeless Tobacco: Never Alcohol Use Standard Drinks/Week Comments Not Currently 0 (1 standard drink = 0.6 oz pure alcoho l) 2/week Sex Assigned at Date Recorded Not on file documented as of this encounter Last Filed Vital Signs Vital Sign Reading Time Taken Comments Blood Pressure 105/66 04/03/2020 3:00 PM [employer]ING [employer]SEM[employer] Pulse 59 04/03/2020 3:00 PM [employer] Temperature 36.2 ??C (97.2 ??F) 04/03/2020 2:30 PM [employer]ING [employer]ER Respiratory Rate 11 04/03/2020 3:00 PM [employer]ING [employer]SEM[employer]ER Oxygen Saturation 99% 04/03/2020 3:00 PM [employer]ING [employer] ASSEMBLER Inhaled Oxygen Concentration - - Weight 71.7 kg (158 lb) 04/03/2020 10:30 AM [employer]ING [employer]URE ASSEMBLER Height 172.7 cm (5' 8) 03/07/2020 2:28 PM CDT Body Mass Index 24.02 03/07/2020 2:28 PM CDT documented in this encounter Discharge Instructions Discharge InstructionsSaSophie arriaza RN - 04/03/2020 4:32 PM CST Patient meets criteria for discharge. Ambulated and voided. Pain under control. [employer] documented in this encounter Medications at Time [...] 1 Packet by mouth 30 Each 0 11/201906/17/2020 (MIRALAX) 17 g packet daily as needed for Constipation. propranolol Take 1 Capsule by 90 Capsule 3 08/22/20192020 (INDERALLA) 80 MG 24 mouth daily. hour release capsuleIndications: Headaches, Essential hypertension (HRC) sertraline (ZOLOFT) 50 Take 50 mg by mouth 0 06/06/201906/06/2020 MG tablet daily. sodium chloride 0.9% Irrigate [...] candidate for surgery. Aracelis Lockett MD 04/03/2020 [employer]G [employer]SEMBL[employer] documented in this encounter Procedure Notes Valentina Lockett MD - 04/03/2020 1:30 PM CST [facility] Brief Operative Progress Note Surgery [...] (Calculus) Kidney Stone CALCULI STONE ANALYSIS Valentina Lockett MD 04/03/2020 1319 Complications / Findings: All stones were successfully removed. Aracelis Lockett MD ING LURE ASSEMBLER Valentina Lockett MD - 04/03/2020 12:00 PM CST NAME: ESTEFANIA MCKEON MR#: [id number] CSN: [id number] AUTHENTICATING CLINICIAN: Valentina Lockett MD CONFIRM #: [id number] LOC: 1 OPERATIVE REPORT DATE OF OPERATION: [...] and draped in the usual sterile fashion. IRDr. Le scrubbed in first. We discussed the best approach. We decided to use the lower position nephrostomy tube first. The guidewires, including a safety guidewire, was passed through the existing nephrostomy tube into the bladder and the nephrostomy tract was dilated to a 32 Israeli. Once this was done, I scrubbed in. [...] The 2nd tract was dilated, and a 32-Israeli sheath was placed. I then put in [...] the nephroscope, and Dr. Le placed an 8.5-Israeli x 26 cm new stent which started [...] be discharged today. GZ:MEDQ C: CONFIRM #: [id number] ING L[employer] ASSEMBLER documented in this encounter Plan of Treatment Not on filedocumented as of this encounter Procedures Procedure Name Priority Date/Time Associated Comments Diagnosis IR FLUORO UP TO 1 HOUR Routine 04/03/2020 2:22 Kidney stones R esults for this PM [employer] procedure are i n the results section. CALCULI STONE ANALYSIS Routine 04/03/2020 1:[address] one Results for this PM [employer] procedure are i n the results section. PERCUTANEOUS 04/03/2020 10:33 Right kidney stone NEPHROLITHOTOMY AM FISHING LURE ASSEMBLER Case Notes Staghorn stone removal PERCUTANEOUS NEPHROLITHOTOMY 04/03/2020 10:33 AM FISHING LURE ASSEMBLER R ight kidney stone Case Notes Staghorn stone removal TYPE AND SCREEN STAT 04/03/2020 10:11 AM FISHING LURE ASSEMBLER R esults for this procedure are in the results sec tion. ANTIBODY SCREEN STAT 04/03/2020 10:11 AM FISHING LURE ASSEMBLER R esults for this procedure are in the results sec tion. BLOOD TYPE STAT 04/03/2020 10:11 AM FISHING LURE ASSEMBLER Resu lts for this procedure are in the results sec tion. HEMOGLOBIN, BLOOD STAT 04/03/2020 10:11 AM FISHING [employer]URE ASSEMBLER Results for this procedure are in the results sec tion. documented in this encounter Results IR Fluoro Up To 1 Hour (04/03/2020 2:22 PM FISHING LURE ASSEMBLER) Anatomical Region Laterality Modality X-Ray Angiography Specimen (Source) Anatomical Collection Method Collection Time Re ceived Time Location / / Volume Laterality 04/03/2020 11:22 AM FISHING LURE ASSEMBLER Impressions 04/03/2020 4:08 PM FISHING LURE ASSEMBLER Procedure: The procedure was performed i ntraoperatively with Dr. Lockett. The previously placed to right-sided nephrostomy tubes were utilized for access. Flow scopic guidance was used throughout. Followi ng sterile prep the lower nephrostomy tu be positioned in the ureter was removed over guidewire. A catheter and guidewire were manipulated into the bladder and a second safety wire placed. A 30 Israeli ba lloon sheath system was then used to dil ate the percutaneous tract. Stone removal was carried out by Dr. Lockett. He then subsequently requested access to the upper pole calyx. That nephrostomy tube was removed over guidewire which was coiled in the redundant calyx and a safety wire placed. A second 30 Israeli ballo on sheath system was used to [...] a second safety wire placed. A 30 Israeli balloon sheath system was then used to dilate the percutaneous tract. S tone removal was carried out by Dr. Locektt. He then subsequently requested access to the upper pole calyx. That nephrostomy tube was removed over guidewire which was coiled in the redundant calyx and a safety wire placed. A second 30 Israeli balloon sheath system was used to dilate [...] IR Calculi Stone Analysis (04/03/2020 1:19 PM FISHING LURE ASSEMBLER) [facility] Method Time Signature Calculi See Note 04/06/2020 [facility] Composition 5:37 AM [facility] AS[facility] Comment: Calculi composed primarily of: 20% calcium oxalate monohydrate, 10% calcium oxalate dihydrate, and 70% calcium phosphate (hydroxy- and carb brandon- apatite). INTERPRETIVE INFORMATION: Calculi (Stone ) analysis Calculi are the products of physiologica l processes that yield crystalline compounds in a matrix of bio logical compounds and blood. ??Matrix components are not repor cecille. ??The clinically significant crystalline components ident ified in calculi specimens are reported. ??Gross description may no t be consistent with composition determined by FTIR analysis. Performed By: [facility] [address] [place] [address] Pocket Setter: Lenore Rivera MD Calculi Description See Note 04/06/2020 5:[address] [facility] Comment: Specimen consists of numerous, various s ized (some larger than 9 mm), brown/rodriguez, irregular calculi fragments. Calculi Mass See Note mg 04/06/2020 5:37 AM FISHING LURE ASSEMBLER [facility] Comment: Specimen mass: 1.22 grams Calculi Number Numerous 04/06/2020 5:37 AM FISHING LURE ASSEMBLER [employer] Calculi Size Various mm 04/06/2020 5:37 AM FISHING LURE ASSEMBLER [facility] Specimen Anatomical Collection Method Collection Time Receive d Time (Source) Location / / Volume Laterality Stone (Calculus) KIDNEY STONE / 04/03/2020 1:19 PM 04/2020 2:41 Unknown FISHING [employer]URE ASSEMBLER PM FISHING LURE ASSEMBLER Valentina Lockett MD LAB_1 Performing Organization Address City/[facility]/ZIP Code Phon e Number [facility] [address] [place] [address] [phone] Antibody Screen (04/03/2020 10:11 AM FISHING LURE ASSEMBLER) [facility] Time Signature Antibody Screen Negative 04/03/2020 [facility] Interpretation 11:18 AM [facility]ING [employer]URE ASSEMBLER BLOOD BANK Specimen Anatomical Collection Method / Collection Time Recei doc Time (Source) Location / Volume Laterality Blood Venipuncture 04/03/2020 10:11 04/03/2020 [facility] / Unknown AM FISHING LURE ASSEMBLER 10:18 AM FISHING LURE ASSEMBLER Valentina Lockett MD LAB_1 Performing Organization Address [facility] Phon e Number [facility] BLOOD BANK [address] [place] [address] Blood Type (04/03/2020 10:11 AM FISHING LURE ASSEMBLER) P athologist Signature ABO O 04/03/2020 [facility] 11:18 AM FISHING LURE ASSEMBLER BLOOD BANK RH Positive 04/03/2020 [facility] 11:18 AM [facility]ING LURE ASSEMBLER BLOOD BANK Specimen Anatomical Collection Method / Collection Time Recei doc Time (Source) Location / Volume Laterality Blood Venipuncture 04/03/2020 10:11 04/03/2020 [place] / Unknown AM FISHING LURE ASSEMBLER 10:18 AM FISHING LURE ASSEMBLER Valentina Lockett MD LAB_1 Performing Organization Address [facility]/ZIP [facility] Phon e Number [facility]OD [facility] [address] [place] [address] Hemoglobin for all patients that have a Draw and Hold, Type and Screen, or Type and Cross ordered (04/03/2020 10:11 AM FISHING LURE ASSEMBLER) P athologist Signature Hemoglobin 12.5 12.0 - 15.5 04/03/2020 [facility] g/dL 10:23 AM [facility] AS[facility] LABORATORY Specimen Anatomical Collection Method / Collection Time Recei doc Time (Source) Location / Volume Laterality Blood Venipuncture 04/03/2020 10:11 04/03/2020 [facility] / Unknown AM FISHING LURE ASSEMBLER 10:18 AM FISHING LURE ASSEMBLER Valentina Lockett MD LAB_1 Performing Organization Address [facility] Phon e Number [facility] [address] [place] [address] documented in this encounter Visit Diagnoses Diagnosis Right kidney stone - Primary Calculus of kidney Kidney stones Calculus of kidney documented in this encounter Admitting Diagnoses Diagnosis Right kidney stone Calculus of kidney documented in this encounter Administered Medications Inactive Administered Medications - up to 3 most recent administrations Medication Order MAR Action Action Date Dose Rate Site bupivacaine-epinephrine PF Given 04/03/2020 1:47 PM FISHING LURE ASSEMBLER 10 mL Wound Site (SENSORCAINE) 0.25% -[id number] injection ONCE PRN, Starting on Chelly 04/03/20 at 1347, Until Chelly 04/03/20 at 1940, Intra-op iopamidol (ISOVUE-370) 76 % injection Given 04/03/2020 1:48 PM FISHING LURE ASSEMBLER 40 mL Wound Site ONCE PRN, Starting on Chelly 04/03/20 at 1348, Until Chelly 04/03/20 at 1940, Intra-op ketorolac (TORADOL) injection 15 mg Given 04/03/2020 2:30 PM FISHING LURE ASSEMBLER 15 mg 15 mg, Intravenous, Q6H PRN, Other, inflammatory pain, Starting on Chelly 04/03/20 at 1409, Until Chelly 04/03/20 at 1940, For 3 days, If unable to tolerate oral inflammatory pain medication., Post-op lactated ringers infusion Started 04/03/2020 1:39 PM FISHING LURE ASSEMBLER 25 mL/hr, Intravenous, CONTINUOUS, Starting on Chelly 04/03/20 at 1100, Administer on all preop surgery patients, ages 12 and older, unless specified differently in the Protocol for Preop Initiation of IV fluids Order Set., Pre-op Started 04/03/2020 11:00 AM FISHING LURE ASSEMBLER 25 mL/hr 25 mL/hr sodium chloride 0.9% injection 10-60 mL 10-60 mL, Intravenous, PRN, Line Patency , Line Care, Starting on Chelly 04/03/20 at 1002, Until Chelly 04/03/20 at 1940, Pre-Procedure sodium chloride for irrigation Given 04/03/2020 1:51 PM FISHING LURE ASSEMBLER 15,0 00 mL Wound Site 0.9 % ONCE PRN, Starting on Chelly 04/03/20 at 1351, Intra-op documented in this encounter Active and Recently Administered Medications Times are shown in FISHING LURE ASSEMBLER. Scheduled Medication Order 04/01/2020 04/02/2020 04/03/2020 clindamycin in dextrose 5% (CLEOCIN) IVPB 900 mg (COMPLETED) 1120 (Given - Provider: India Garcia APRN, KEANU) 900 mg, Intravenous, Administer over 30 Minutes, ONCE, Chelly 04/03/20 at 1030, For 1 dose, Infuse within 60 minutes prior to incision., Pre-op Continuous Medication Order 04/01/2020 04/02/2020 04/03/2020 lactated ringers infusion 1100 ( Started - Provider: Sarah Jauregui RN)1339 (Started - Provider: India Garcia [...] 04/01/2020 04/02/2020 04/03/2020 bupivacaine-epinephrine PF (SENSORCAINE) 0.25% -1:[id number] injecti on 1347 (Given - Provider: Rajendra [...] unable to take PO. Hold if on SILVER PLATER, Post-op iopamidol (ISOVUE-370) 76 % injection 1348 [...] override documented in this encounter Care Teams Graduate Research Assistant Relationship Specialty Start Date End Date Shannan Matthews DO PCP - General Family Practice 10/13/19 [address] [id number] documented as of this encounter
--- OUTSIDE RECORDS SUMMARY | 2022-04-25 22:31 | XMS_ITS | Encounter Summary ---
:1985 Author Organization [facility] Address [address] [place] [address] Care Team Providers Name Role Phone CassieShannan Primary Care Provider Reason for Referral Procedure/Equipment (Routine) - Incomplete Specialty Diagnoses / Procedures Referred By Contact Refer red To Contact Procedures Faustino Sinclair MD IR Nephrostomy Tube Check [address] [place], [place] [address] Referral ID Status Reason Start Date Expiration Date Visits V isits Requested Authorized Incomplete 03/09/2020 06/08/2021 1 1 Reason for Visit Reason Comments Post-Op Problem Encounter Details Date Type Department Care Team Description 03/09/2020 [facility] Faustino Sinclair, Postoperative pain; Center Nephrostomy complication (HRC) [address] [address] [place] [address] [phone] (Wo rk) Social History Tobacco Use Types Packs/Day Years Used Date Smoking Tobacco: Never Smokeless Tobacco: Never Alcohol Use Standard Drinks/Week Comments Not Currently 0 (1 standard drink = 0.6 oz pure alcoho l) 2/week Sex Assigned at Date Recorded Not on file documented as of this encounter Last Filed Vital Signs Vital Sign Reading Time Taken Comments Blood Pressure 119/87 03/09/2020 10:30 AM CDT Pulse 99 03/09/2020 10:30 AM CDT Temperature 36.7 ??C (98.1 ??F) 03/09/2020 10:02 AM CDT Respiratory Rate 16 03/09/2020 10:02 AM CDT Oxygen Saturation 97% 03/09/2020 10:30 AM CDT Inhaled Oxygen Concentration - - Weight - - Height - - Body Mass Index - - documented in this encounter Discharge Instructions AttachmentsThe following attachments cannot be sent through Care Everywhere. Nephrostomy Tube Care ([place] Islander)documented in this encounter Medications at Time of [...] 1 Packet by mouth 30 Each 0 /11/201906/17/2020 (MIRALAX) 17 g packet daily as needed for Constipation. propranolol Take 1 Capsule by 90 Capsule 3 08/22/20192020 (INDERALLA) 80 MG 24 mouth daily. hour release capsuleIndications: Headaches, Essential hypertension (HRC) sertraline (ZOLOFT) 50 Take 50 mg by mouth 0 06/201906/06/2020 MG tablet daily. documented as of this encounter ED Notes Monisha Stovall RN - 03/09/2020 11:26 AM CDT Pt DC'd to home- no questions at time of DC- pt expresses understanding of DC instructions Rx and follow up Faustino Sinclair MD - 03/09/2020 10:02 AM CDT Chief Complaint: Post-operative issue HPI: Estefania Mckeon is a 34 y.o. female with a history of recurrent kidney stones who presents to the emergency center for evaluation of a post-operative problem. The patient was recently discharged on 02/26 after placement of right-sided urostomy tubes on 02/24 after the identification of renal stones with a renal infection. Since then, she was seen by urology 7 days ago, but her tubes were not examined. She reports that she was seen 4 days ago for a tube change as she noticed the skin around the tubeswas becoming red, at which time she was told one of the tubes was leaking. The patient reports that she noticed decreased drainage from her tubes yesterday morning. Around 0 last night, she tried flu shing it with saline, but it made a hissing noise and has almost completely stopping draining now.She now reports increased back pain and pressure with very little output into the drainage bag. She additionally reports a yellow and crusty substance on her skin around the ports, nausea last night,and feeling always cold. She denies any known tugging on the tubes, but does have 2 small children at home, so she cannot be certain; she additionally denies fever and any vomiting. Of note, her surgery is scheduled on 04/03/2020. Review of Systems: Review of Systems Constitutional: Positive for chills (feels always cold). Negative for fever. Gastrointestinal: Positive for nausea. Negative for vomiting. Genitourinary: Positive for flank pain. Positive for decreased drainage from nephrostomy bag. Skin: Positive for color change (erythema around ports). All other systems reviewed and are negative. Medications: acetaminophen (TYLENOL) 500 MG tablet cetirizine (ZYRTEC) 10 MG tablet ciprofloxacin (CIPRO) 500 MG tablet polyethylene glycol (MIRALAX) 17 g packet propranolol (INDERALLA) 80 MG 24 hour release capsule sertraline (ZOLOFT) 50 MG tablet SUMAtriptan (IMITREX) 50 MG tablet Allergies: Amoxicillin Diphenhydramine Macrobid [Nitrofurantoin] Antihistamines, Diphenhydramine-Type Past Medical History: Anemia Bicornuate uterus Recurrent kidney stones Migraines Vitamin D deficiency Endometriosis Pyelonephritis of right kidney Past Surgical History: Cystoscopy Appendectomy Bradford teeth extraction Family History: Spontaneous abortions Crohn's Disease Heart Disease (Mother) Stroke Diabetes Hyperlipidemia Social History: The patient is single, never smoker, and has 2 alcoholic drinks per week. Physical Exam: Triage Vitals [03/09/20 1002] Temp 36.7 ??C (98.1 ??F) Temp src Oral Pulse (!) 102 Resp 16 BP 104/75 SpO2 99 % Physical Exam Gen: Patient well nourished. HEENT: no conjunctival injection Neck: Full ROM CV: Regular rate and regular rhythm no cardiac murmurs Pulm: Clear to auscultation bilaterally. No crackles appreciated Abd: Soft non-tender and non-distended. MSK: Warm and well perfused. Moving all 4 extremities without difficulty. no obvious deformities. Neuro: WNL Psychiatric: Cooperative appropriate mood and affect. Skin: Two nephrostomy tubes in right flank. Surrounding sutures are loose with purulent discharge and mild erythema around port sites. Tender to palpation. Imaging: Results per Radiology (please see formal Radiology report for further details). IR Nephrostomy Tube Check ED Course: Clinical Impressions as of Mar 09 1139 Postoperative pain Nephrostomy complication (HRC) Nursing notes and vitals were reviewed. Past medical records were reviewed. I performed an exam of the patient as detailed above. The above imaging were ordered (see results above). No interventions were administered. Findings and plan explained to the patient. I fully addressed and answered all questions and concerns the patient had. The patient was discharged home in stable condition with instructions regarding supportive care, medications, and reasons to return as well as the importance of close follow-up was reviewed. Following our examination and treatment, any identified emergency medical condition has resolved. Patient is stable for discharge and may pursue follow-up care as recommended. Last EC Vitals: Temp: 36.7 ??C (98.1 ??F) (03/09 1002) Temp src: Oral (03/09 1002) Pulse: 99 (03/09 1030) Resp: 16 (03/09 1002) BP: 119/87 (03/09 1030) SpO2: 97 % (03/09 1030) Medical Decision Making: Estefania Mckeon is a 34 y.o. 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 She is followed by Dr. Lockett in the department of Urology, last clinic visit was on 03/07. She presents to the ER with decreased output from the drains as well as pain. Patient does have tenderness over the right flank, both nephrostomy tube siteshave mild surrounding erythema and purulent discharge, but not incredibly concerning for a deep infection, more changes associated with irritation. Patient is afebrile and hemodynamically stable. I did speak with our on-call interventional radiologist to discuss the utility of a repeat CT of theabdomen and pelvis prior to tube check/replacement. Dr Valles offered to go directly to IR to chestpatency. Per procedure note patient had appropriately placed nephrostomy tubes- the decreased urine output will need to be addressed in urology clinic. I will send a note to her urologist requetsting that his clinic follows up with the patient in 24 hours for continuity of care. Both tubes have been checked and are appropriately positioned. Patient is safe for discharge and needs to follow up at her next clinical appointment. Impression: Final diagnoses: [G89.18] Postoperative pain [N99.528] Nephrostomy complication (HRC) Plan: Discharge home. I, Irina Breaux, am serving as a scribe to document services personally performed by Dr. Sinclair, based on my observations and the provider's statements to me. 03/09/2020 [facility] Portions of this medical record were completed by a scribe. UPON MY REVIEW AND AUTHENTICATION BY ELECTRONIC SIGNATURE, this confirms (a) I performed the applicable clinical services, and (b) the recordis accurate. Faustino Sinclair MD 03/09/20 1155 documented in this encounter Plan of Treatment Not on filedocumented as of this encounter Procedures Procedure Name Priority Date/Time Associated Comments Diagnosis IR NEPHROSTOMY TUBE STAT 03/09/2020 11:01 Resu lts for this CHECK AM CDT procedure are i n the results section. 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 The patient came to the emergency room complaining of flank pain and poorly draining tubes. She states that o ne of the tubes outputs 600 mL per day of urine and the other tube outputs a similar amount of bloody fluid. FINDINGS: Fluoroscopic guidance was used . The upper pole to was injected first and showed satisfactory position. The upper pole calyceal fluid has decreased when compared to the prior CT. The lower cath eter, which is unformed in the upper ure ter, is in place in satisfactory position. The tubes were flushed and left to gravity drainage. IMPRESSION: Satisfactory position and dr crystal of existing tubes. The patient is scheduled for surgery in 2-3 weeks. She will return as needed for problems with her tubes. Procedure Note Miguel Valles MD - 03/09/2020Format ting of this note might be different from the original. 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 The patient came to the emergency room complaining of flank pain and poorly draining tubes. She states that one of the tubes outputs 600 mL per day of urine and the other tube outputs a similar amount of bloody fluid. FINDINGS: Fluoroscopic guidance was used . The upper pole to was injected first and showed satisfactory position. The upper pole calyceal fluid has decreased when compared to the prior CT. The lower catheter, which is unformed in the upper ureter, is in plac e in satisfactory position. The tubes were flushed and left to gravity drainage. IMPRESSION: Satisfactory position and dr rojas of existing tubes. The patient is scheduled for surgery in 2-3 weeks. She will return as needed for problems with her tubes. Faustino Sinclair MD RAD IR documented in this encounter Visit Diagnoses Diagnosis Postoperative pain Other acute postoperative pain Nephrostomy complication (HRC) Triage Assessment Note - Vamshi Perez RN - 03/09/2020 10:02 AM CDT Pt has a right sided urostomy tube in place relate dto a renal stone Yesterday at 1930 it stopped draining and now she reports back pain and pressure documented in this encounter Administered Medications Inactive Administered Medications - up to 3 most recent administrations Medication Order MAR Action Action Date Dose Rate Site iopamidol (ISOVUE-300) 61 % Given 03/09/2020 11:30 AM CDT 15 mL injection 50 mL 50 mL, Intra-renal, ONCE, On 03/09/20 at 1130, For 1 dose, Radiology documented in this encounter Active and Recently Administered Medications Times are shown in CDT. Scheduled Medication Order 03/07/2020 03/08/2020 03/09/2020 iopamidol (ISOVUE-300) 61 % injection 50 mL (COMPLETED) 1130 (Given - Provider: Dilcia Bennett) 50 mL, Intra-renal, ONCE, 03/09/20 at 1130, For 1 dose, Radi ology documented in this encounter Care Teams Tank Builder Relationship Specialty Start Date End Date Shannan Matthews DO PCP - General Family Practice 10/13/19 [address] [id number] documented as of this encounter
--- OUTSIDE RECORDS SUMMARY | 2022-04-25 22:32 | XMS_ITS | Encounter Summary ---
:1985 Author Organization [facility] Address [address] [place] [address] Care Team Providers Name Role Phone Shannan Matthews DO Primary Care Provider Reason for Visit Auth/Cert Specialty Diagnoses / Procedures Referred By Contact Refer red To Contact Diagnoses Renal obstruction Referral ID Status Reason Start Date Expiration Date Visits Requ ested Visits Authorized [id number] 1 1 Encounter Details Date Type Department Care Team Description 02/24/2020 Anesthesia Event [employer] Vernon Lockhart MD [address] [place], [place] [id number] Robby Siddiqi APRN, CRNA [address] [place], [place] [id number] [address] [facility] [place], [place] [address] Anesthesia Record Procedure Summary Procedure Name Responsible Anesthesia Start Anesthesia Stop Anesthesiologist Time Time CYSTOSCOPY, RIGHT Vamshi Lockhart MD 02/24/201940 0 2046 RETROGRADE PYLEOGRAM, URETERAL STENT PLACEMENT (Right) Events Date Time Event Comment 02/24/2020 1931940 An Start 1940 Quick Note Anesthesia start time denotes sedation started by COMMODITY MERCHANT currently o n case; patient continuously monitored to O.R . By COMMODITY MERCHANT 1943 An Start Data 1945 MD/DO Present 1946 Face Tent 2000 MD/DO Present 2032 MD/DO Present 2042 an stop data 2045 An Stop Care transferred . 2045 Care Handoff Note I discussed wi th [...] understanding of report Electr onically signed by Robby Bhatt APRN, COMMODITY MERCHANT Name Total midazolam injection 2 mg/2 mL (VERSED) 2 mg fentaNYL injection (SUBLIMAZE) 100 mcg lidocaine 1% PF injection (XYLOCAINE) 50 mg propofol 10 mg/mL for procedural sedation (aka diPRIva n) 380.59 mg ondansetron injection (ZOFRAN) 4 mg dexmedetomidine (PRECEDEX) 20 mcg in sodium chloride 5 mL (4 mcg/mL) 40 mcg injection SYRINGE lactated ringers infusion 900 mL Agents Name O2 Identified Agent Name Blood No blood administrations on file. Lines, Drains, and Airways Type Details Placement Removal Peripheral IV Placement Date: 02/24/20 0000 by 03/12/20 1616 b y Lda, 02/24/20; Pre-existing: Spenser Allen Yes (From [facility]); Orientation: Left, Proximal; Removal Date: 03/12/20; Removal Time: 1616 documented in this encounter Social History Tobacco Use Types Packs/Day Years Used Date Smoking Tobacco: Never Smokeless Tobacco: Never Alcohol Use Standard Drinks/Week Comments Yes 0 (1 standard drink = 0.6 oz pure alcoho l) 2/week Sex Assigned at Date Recorded Not on file documented as of this encounter Miscellaneous Notes Anesthesia Postprocedure Evaluation - Vamshi Lockhart MD - 02/24/2020 11:28 PM CDT [facility] Anesthesia Post-op Note Patient: Estefania Mckeon Post-Op Diagnosis: Pyelonephritis of right kidney Procedure Performed: Procedure(s): Right - CYSTOSCOPY, RIGHT RETROGRADE PYLEOGRAM, URETERAL STENT PLACEMENT - Wound Class: 1 CLEAN Anesthesia Type: MAC Post-op vital signs: Vitals Value Taken Time BP 100/75 02/24/2020 11:00 PM Temp 36.6 ??C (97.8 ??F) 02/24/2020 9:15 PM Pulse 97 02/24/2020 11:27 PM Resp 17 02/24/2020 8:59 PM SpO2 99 % 02/24/2020 11:27 PM Vitals shown include unvalidated device data. Pain Score: Presence Of Pain: complains of pain/discomfort Preferred Pain Scale: number (Numeric Rating Pain Scale) Pain Rating (0-10): Rest: 2 Post-op assessment: No anesthesia complication. Patient location: PACU Airway Status: Patent Cardiovascular function: Satisfactory Hydration status: Satisfactory PONV: None Level of Consciousness: Awake Fully Participates Postop Assessment: Patient tolerated procedure well. Electronically signed by: Vamshi Lockhart MD 02/24/2020 11:28 PM Anesthesia Preprocedure Evaluation - Vamshi Lockhart MD - 02/24/2020 7:23 PM CDT [facility] Anesthesia Pre-op Evaluation Procedure: Procedure(s): Right - URETERAL STENT PLACEMENT HPI: 34 y.o. old female with Pyelonephritis of right kidney NPO Status: Last Fluid Intake Time: 1200 Last Fluid Intake Date: 02/24/20 Last Food Intake Date: 02/23/20 Last Food Intake Time: 1830 Allergies Allergen Reactions ??? Amoxicillin Hives ??? [...] ??? Endometriosis ??? Pyelonephritis of right kidney Past Surgical History: Procedure Laterality Date ??? CYSTOSCOPY 2003 Kidney stones ??? HX APPENDECTOMY 1998 ??? WISDOM TEETH EXTRACTION No outpatient medications have been marked as taking for the 02/24/20 encounter (Hospital Encounter). Current Facility-Administered Medications Medication Dose Route Frequency ??? [MAR Hold] acetaminophen (TYLENOL) tablet 650 mg 650 mg Oral Q4H PRN ??? [JUL Hold] cefTRIAXone (ROCEPHIN) 1 g in dextrose 50 mL IVPB 1 g Intravenous Q24H (NS) ??? dextrose 5 % infusion Intravenous ONCE PRN ??? fentaNYL (SUBLIMAZE) injection 25-50 mcg 25-50 mcg Intravenous Q5MIN PRN ??? HYDROmorphone (DILAUDID) 1 MG/ML injection - ADS Override Pull ??? HYDROmorphone (DILAUDID) injection 0.2-0.3 mg 0.2-0.3 mg Intravenous Q10MIN PRN ??? [JUL Hold] HYDROmorphone (DILAUDID) injection 0.2-0.4 mg 0.2-0.4 mg Intravenous Q4H PRN ? ? influenza vaccine quadrivalent (age >/= 6 months) (FLUARIX/FLUZONE) injection 0.5 mL 0.5 mL Intramuscular Prior To Discharge Vaccine ??? [MAR Hold] lactated ringers infusion 25 mL/hr Intravenous Continuous ??? meperidine (DEMEROL) injection 12.5 mg 12.5 mg Intravenous Q5MIN PRN ??? midazolam (VERSED) injection 0.5-1 mg 0.5-1 mg Intravenous Q5MIN PRN ??? [MAR Hold] NaCl 0.9%-KCl 20 mEq/liter infusion Intravenous Continuous ??? naloxone (NARCAN) injection 0.08 mg 0.08 mg Intravenous PRN ??? naloxone (NARCAN) injection 0.4 mg 0.4 mg Intravenous ONCE PRN ??? ondansetron (ZOFRAN) injection 4 mg 4 mg Intravenous Q4H PRN ??? prochlorperazine (COMPAZINE) injection 5 mg 5 mg Intravenous PRN ??? [MAR Hold] sertraline (ZOLOFT) tablet 50 mg 50 mg Oral Daily Labs: Lab Results Component Value Date/Time SODIUM 140 08/28/2019 08:33 AM K 4.3 08/28/2019 08:33 AM CHLORIDE 103 08/28/2019 08:33 AM BUN 12 08/28/2019 08:33 AM CREATININE 0.80 08/28/2019 08:33 AM GLUCOSE 91 08/28/2019 08:33 AM Lab Results Component Value Date/Time WBC 7.0 08/28/2019 08:33 AM HGB 13.6 08/28/2019 08:33 AM HCT 41.5 08/28/2019 08:33 AM PLTS 239 08/28/2019 08:33 AM No results found for: INR Blood Bank: Antibody Screen (no units) Date Value 06/19/2018 NEG EKG: No results found for this or any previous visit. Physical Exam: BP 113/70 Pulse (!) 117 Temp 37.1 ??C (98.8 ??F) (Temporal Artery) Resp 14 Ht 5' 8 Wt 73.9 kg (162 lb 14.7 oz) SpO2 99% BMI 24.77 kg/m?? Assessment/Plan: Review of Systems Patient does [...] Full Neck Circumference > 40 cm?: No Current airway assessment:Normal Dentition: Normal. Cardiac Exam: Regular rate and rhythm. Respiratory Exam: Breath sounds clear to auscultation Assessment ASA Status: 2 . Plan Anesthesia type: General and LMA Induction: Intravenous Maintenance: Postoperative pain management (PONV): Plan for postoperative opioid use PONV Risk Score Peds:0 PONV Risk Score Adult: 3 PONV Prophylaxis (planned): Ondansetron and Decadron Anesthetic plan, risks, benefits and alternatives discussed with: Patient. H/o tubal ligation, pt declines UPT H&P Reviewed and Patient examined, no change observed IV access Antibiotics per surgery Electronically signed by: Vamshi Lockhart MD 02/24/2020 7:23 PM documented in this encounter Plan of Treatment Not on filedocumented as of this encounter Visit Diagnoses Not on filedocumented in this encounter Administered Medications Inactive Administered Medications - up to 3 most recent administrations Medication Order MAR Action Action Date Dose Rate Site dexmedetomidine injection syringe Given 02/24/2020 7:56 PM CDT 1 0 mcg 20 mcg/5 mL Starting on 02/24/20 at 1947, Until 02/24/20 at 2045 Given 02/24/2020 7:53 PM CDT 10 mcg Given 02/24/2020 7:50 PM CDT 10 mcg fentaNYL (SUBLIMAZE) injection Given 02/24/2020 8:25 PM CDT 50 mcg Intravenous, Starting on 02/24/20 at 1956, Until 02/24/20 at 2045 Given 02/24/2020 7:56 PM CDT 50 mcg lactated ringers Continue Current Bag 02/24/2020 8:46 PM 25 mL/hr 2 5 mL/hr infusion CDT 25 mL/hr, Intravenous, CONTINUOUS, Starting on 02/24/20 at 1915, Administer on all preop surgery patients, ages 12 and older, unless specified differently in the Protocol for Preop Initiation of IV fluids Order Set., Pre-op Continue from Pre-Op 02/24/2020 7:41 PM CDT Started 02/24/2020 7:13 PM CDT 25 mL/hr 25 mL/hr lidocaine PF (XYLOCAINE) 1 % injection Given 02/24/2020 7:50 PM CDT 50 mg Starting on 02/24/20 at 1950 midazolam (VERSED) injection Given 02/24/2020 7:41 PM CDT 2 mg Intravenous, Starting on 02/24/20 at 194, Until 02/24/20 at 2045 ondansetron (ZOFRAN) injection Given 02/24/2020 7:41 PM CDT 4 mg Intravenous, Starting on 02/24/20 at 194, Until 02/24/20 at 2045 propofol (DIPRIVAN) 10 mg/mL Rate/Dose 02/24/2020 8:34 100 mcg/kg/mi n 44.34 injection Change PM CDT mL/hr Intravenous, Starting on 02/24/20 at 195, Until 02/24/20 at 2046 Rate/Dose Change 02/24/2020 8:24 PM CDT 75 mcg/kg/min 33.26 mL/hr Rate/Dose Change 02/24/2020 8:09 PM CDT 100 mcg/kg/min 44.34 mL/hr documented in this encounter Care Teams Alarm Operator Relationship Specialty Start Date End Date Shannan Matthews DO PCP - General Family Practice 10/13/19 [address] [id number] documented as of this encounter
--- OUTSIDE RECORDS SUMMARY | 2022-04-25 22:32 | XMS_ITS | Encounter Summary ---
:1985 Author Organization [facility] Address [address], [place] [address] Care Team Providers Name Role Phone Shannan Matthews DO Primary Care Provider Encounter Details Date Type Department Care Team Description 12/20/2019 Partner ED Initial Department ProviderHERIBERTO 12/17/2019 [address], [place], [place] [address] Interface provider [phone] [place] [address] Social History Tobacco Use Types Packs/Day Years [...] on filedocumented in this encounter Care Teams Full Stack Web Developer Relationship Specialty Start Date End Date Shannan Matthews DO PCP - General Family Practice 10/13/19 [address] [address] documented as of this encounter
--- OUTSIDE RECORDS SUMMARY | 2022-04-25 22:32 | XMS_ITS | Encounter Summary ---
:1985 Author Organization [facility] Address [address], [place] [address] Care Team Providers Name Role Phone Shannan Matthews DO Primary Care Provider Encounter Details Date Type Department Care Team Description 02/25/2020 Notes/Orders Valentina Huizar MD Hydronephrosis of right Specialty Center - [address] (Primary Dx) [address] [place] [address] [phone] Social History Tobacco Use Types Packs/Day Years [...] Hydronephrosis documented in this encounter Care Teams Automotive Leasing Sales Representative Relationship Specialty Start Date End Date Shannan Matthews DO PCP - General Family Practice 10/13/19 [address] [place] [address] documented as of this encounter
--- OUTSIDE RECORDS SUMMARY | 2022-04-25 22:32 | XMS_ITS | Encounter Summary ---
:1985 Author Organization [employer] [facility] Address [address] [address] Care Team Providers Name Role Phone Shannan Matthews Jose VALDIVIA Primary Care Provider Reason for Visit Reason Comments Follow-up Encounter Details Date Type Department Care Team Description 10/18/2019 Office Visit [facility] Serenity Chapa MD (Primary Dx) [id number] [facility], [address] [place] [address] [address] [place] [phone] (Wo rk) Social History Tobacco Use Types Packs/Day Years Used Date Smoking Tobacco: Never Smokeless Tobacco: Never Alcohol Use Standard Drinks/Week Comments Not Currently 0 (1 standard drink = 0.6 oz pure alcoho l) 2/week Sex Assigned at Date Recorded Not on file documented as of this encounter Last Filed Vital Signs Vital Sign Reading Time Taken Comments Blood Pressure 122/83 10/18/2019 3:29 PM CDT Pulse 83 10/18/2019 3:29 PM CDT Temperature - - Respiratory Rate - - Oxygen Saturation - - Inhaled Oxygen Concentration - - Weight 72.6 kg (160 lb) 10/18/2019 3:29 PM CDT Height - - Body Mass Index 24.33 06/19/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 Follow-up History of Present Illness: Estefania Mckeon is a 34 y.o. female using condoms for contraception here for Follow-up . She was seen in the ED on 10/13/2019 for severe, sudden onset pelvic pain. She received an ultrasound which suggested that an ovarian cyst had ruptured. They gave her pain medication and it slowly improved over the next several days. She is feeling better today. We discussed possibly starting OCP's to decrease the chances of another ovarian cyst forming, but she has severe headaches with OCP's. She wants to have a tubal ligation and will look into scheduling that today. Current Outpatient Medications Medication Sig ??? jczudjcodk-bghhvcklzizam-rpkyarzn (FIORICET) 50-325-40 MG tablet Take 1 Tablet by mouth every 4 hours as needed for Pain. ??? cetirizine (ZYRTEC) 10 MG tablet Take 10 mg by mouth daily. ??? propranolol (INDERALLA) 80 MG 24 hour release capsule Take 1 Capsule by mouth daily. ??? SUMAtriptan (IMITREX) 50 MG tablet Take 1 Tablet by mouth as needed for Migraine. May repeat onetablet after 2 hours if needed. Maximum 4 tabs/24 hours and 9 days/month Allergies Allergen Reactions ??? Amoxicillin Hives ??? Diphenhydramine Breathing Difficulty and Palpitations Benadryl ??? Macrobid [Nitrofurantoin] Hives OB History Para Term AB Living 4 2 2 0 2 2 SAB TAB Ectopic Multiple Live Births 2 0 0 0 2 Patient Active Problem List Diagnosis ??? Vitamin D deficiency (HRC) ??? Recurrent kidney stones ??? History of blood transfusion ??? KEZIA (iron deficiency anemia) ??? Encounter for female sterilization procedure Past Medical History: Diagnosis Date ??? Anemia [...] ??? Alcohol use: Not Currently Comment: 2/week ??? Drug use: No Review of Systems: Complete Review of Systems is negative, unless noted in HPI Physical Examination: BP 122/83 (BP Location: Right Arm, BP Cuff Size: Regular) Pulse 83 Wt 160 lb (72.6 kg) LMP 10/10/2019 (Exact Date) No BMI 24.33 kg/m?? Estimated body mass index is 24.33 kg/m?? as calculated from the following: Height as of 06/19/18: 5' 8 (1.727 m). Weight as of this encounter: 160 lb (72.6 kg). Physical Examination: General appearance - alert, well appearing, and in no distress Mental status - alert, oriented to person, place, and time Skin - normal coloration and turgor, no rashes, no suspicious skin lesions noted Assessment/Plan: 34 y.o. female with Estefania was seen today for follow-up. Diagnoses and all orders for this visit: Female pelvic pain Pelvic pain is now resolved. FU as needed. I asked her to talk with our surgery scheduling folks if she is interested in going forward with a tubal ligation. Serenity Alva MD 10/19/2019 10:59 AM documented in this encounter Plan of Treatment Not on filedocumented as of this encounter Visit Diagnoses Diagnosis Female pelvic pain - Primary Unspecified symptom associated with fema le genital organs documented in this encounter Care Teams Art Therapy Certified Supervisor Relationship Specialty Start Date End Date Shannan Matthews DO PCP - General Family Practice 10/13/19 [address] [id number] documented as of this encounter
--- OUTSIDE RECORDS SUMMARY | 2022-04-25 22:32 | XMS_ITS | Encounter Summary ---
:1985 [facility] [address], [place] [address] Care Team Providers Name Role Phone Shannan Matthews DO Primary Care Provider Reason for Visit Auth/Cert Specialty Diagnoses / Procedures Referred By Contact Refer red To Contact Diagnoses Renal obstruction Referral ID Status Reason Start Date Expiration Date Visits Requ ested Visits Authorized [id number] 1 1 Encounter Details Date Type Department Care Team Description 02/24/2020 Surgery [facility] Operating Valentina Lockett MD CYSTOSCOPY, RIGHT Room [address] [facility] RETROGRADE PYLEOGRAM, [address] URETERAL STENT [place], [place] [address] [place] [id number] [phone] (Wo rk) Social History Tobacco Use Types Packs/Day Years Used Date Smoking Tobacco: Never Smokeless Tobacco: Never Alcohol Use Standard Drinks/Week Comments Yes 0 (1 standard drink = 0.6 oz pure alcoho l) 2/week Sex Assigned at Date Recorded Not on file documented as of this encounter Last Filed Vital Signs Vital Sign Reading Time Taken Comments Blood Pressure 113/70 02/24/2020 7:10 PM CDT Pulse 117 02/24/2020 7:10 PM CDT Temperature 37.1 ??C (98.8 ??F) 02/24/2020 7:10 PM CDT Respiratory Rate 14 02/24/2020 7:10 PM CDT Oxygen Saturation 99% 02/24/2020 7:10 PM CDT Inhaled Oxygen Concentration - - Weight 73.9 kg (162 lb 14.7 oz) 02/24/2020 1:56 PM CDT Height 172.7 cm (5' 8) 02/24/2020 1:56 PM CDT Body Mass Index 24.77 02/24/2020 1:56 PM CDT documented in this encounter Discharge Summaries Vicky Clark MD - 02/27/2020 4:16 PM CDT DISCHARGE SUMMARY Date of service : 02/27/2020 Patient Name: Estefania Mckeon Date of : 1985 Primary care physician : Shannan Matthews DO Attending Provider: Vicky Clark Admission Date: 02/24/2020 Discharge Date: 02/27/2020 She will be discharged to home. DISCHARGE DIAGNOSES Pyelonephritis of right kidney Staghorn calculus right kidney PROCEDURES PERFORMED DURING HOSPITALIZATION CT abd / pelvis: IMPRESSION: 1. 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 This portion of the pelvis communicates with the lower pole extrarenal pelvis,but the lower pole does not appear obstructed. The proximal pigtail of the double-J ureteral stent is located in the lower pole, which is nonobstructed and drains normal appearing renal parenchyma. There is only one right extrarenal pelvis, and there is no duplication of the ureters on the right. 2. Partial duplication of the left renal collecting system. The upper pole and lower pole moiety ureters appear to join near the L4/L5 level. Surgery Date: 02/24/2020 Surgeon(s) and Role: * Valentian Lockett MD - Primary ?? Pre-op Diagnosis: * Pyelonephritis of right kidney [N12] Right hydronephrosis Post-op Diagnosis: * Pyelonephritis of right kidney [N12] Right hydronephrosis Procedure(s) (LRB): CYSTOSCOPY, RIGHT RETROGRADE PYLEOGRAM, URETERAL STENT PLACEMENT (Right) ?? IR nephrostomy tube placement: IMPRESSION: 1. Ultrasound and fluoroscopic guided placement of midpole nephrostomy tube. This tube extends across the stone bearing infundibulum of the staghorn calculus with catheter extending from the renal pelvis to the hydronephrotic mid pole. 2. Ultrasound and fluoroscopic guided placement of superior pole nephrostomy tube. This tube is coiled in the hydronephrotic superior pole. Hospital Course: 34 yo F admitted from [facility] for Staghorn ureterolithiasis of the Right kidney with hydronephrosis ?? Sepsis / Pyelonephritis of right kidney / staghorn stone right kidney - urology consulted. Right ureteral stent placed 02/23. Per d/w dr Lockett, CT shows focal hydronephrosis involving the right upper pole due to staghorn stone obstructing the infundibulum of upper calyceal system - 2 right percut nephrostomy tubes placed by IR to help drain the upper part of the kidney - urine culture was not sent at [facility]. cultures sent from OR 02/24 & results are pending at discharge. BCx NTD - she will discharge with 14 day course of ciprofloxacin per urology recommendations, she will f/u with urology on 03/07 with lasix renogram to assess right kidney function PHYSICAL EXAM : Vitals: BP 99/67 Pulse 91 Temp 36.7 ??C (98 ??F) (Oral) Resp 18 Ht 1.727 m (5' 8) Wt 73.9 kg (162lb 14.7 oz) SpO2 96% BMI 24.77 kg/m?? Wt Readings from Last 3 Encounters: 02/24/20 73.9 kg (162 lb 14.7 oz) 01/10/20 73.1 kg (161 lb 3.2 oz) 12/25/19 72.9 kg (160 lb 11.2 oz) I & O over last 24 hours: Intake/Output Summary (Last 24 hours) at 02/27/2020 1635 Last data filed at 02/27/2020 1553 Gross per 24 hour Intake 2915 ml Output 1935 ml Net 980 ml General: Alert, Oriented, NAD HEENT : Normocephalic. MM moist. Heart: Reg rate & Rhythm without murmurs. Respiratory: Normal respiratory effort. Lungs are clear Abdomen: soft, nontender, No guarding or rebound. Right percut nephrostomy tubes x 2 Extrs : no clubbing / cyanosis / edema. ?? Patient Instructions: Discharge Medication List as of 02/27/2020 2:32 PM START taking these medications Details !! acetaminophen (TYLENOL) 325 MG tablet Take 2 Tablets by mouth every 4 hours as needed for Pain (Mild pain (pain scale 1-4))., Disp-100 Tablet,R-11, Q4H PRN Starting Tue02/25/2020, Oral, OTC !! acetaminophen (TYLENOL) 500 MG tablet Take 2 Tablets by mouth three times a day. Maximum acetaminophen dose is 4000 mg in 24 hours, Disp-100 Tablet,R-11, TID Starting Tue02/27/2020, Oral, No Print/No Fill ciprofloxacin (CIPRO) 500 MG tablet Take 1 Tablet by mouth two times a day for 14 days. Indications:pyelonephritis, Disp-28 Tablet,R-0, BID Starting Tue02/25/2020, Until Tue03/10/2020, For 14 days, Oral, Normal oxyCODONE (ROXICODONE) 5 MG immediate release tablet Take 1-2 Tablets by mouth every 6 hours as needed (severe pain)., Disp-20 Tablet,R-0, Q6H PRN Starting Tue02/25/2020, Oral, Normal !! - Potential duplicate medications found. Please discuss with provider. CONTINUE these medications which have CHANGED Details polyethylene glycol (MIRALAX) 17 g packet Take 1 Packet by mouth daily as needed for Constipation., Disp-30 Each,R-0, DAILY PRN Starting Tue02/27/2020, Oral, Normal CONTINUE these medications which have NOT CHANGED Details xfnwefpiry-zhwiwteqgxmoo-hpdkvrgj (FIORICET) 50-325-40 MG tablet Take 1 Tablet by mouth every 4 hours as needed for Pain., Disp-10 Tablet, R-0, Q4H PRN Starting Tue08/22/2019, Oral, Normal cetirizine (ZYRTEC) 10 MG tablet Take 10 mg by mouth daily., DAILY, Oral, Historical ibuprofen (MOTRIN) 600 MG tablet Take 1 Tablet by mouth every 6 hours as needed for Pain., Disp-40 Tablet, R-0, Q6H PRN Starting Tue11/16/2019, Oral, Normal propranolol (INDERALLA) 80 MG 24 hour release capsule Take 1 Capsule by mouth daily., Disp-90 Capsule, R-3, DAILY Starting Tue08/22/2019, Until Tue08/21/2020, For 365 days, Oral, Normal sertraline (ZOLOFT) 50 MG tablet Take 50 mg by mouth daily., DAILY Starting Tue10/23/2019, Oral, Historical SUMAtriptan (IMITREX) 50 MG tablet Take 1 Tablet by mouth as needed for Migraine. May repeat one tablet after 2 hours if needed. Maximum 4 tabs/24 hours and 9 days/month, Disp-9 Tablet, R-2, PRN Starting Tue08/22/2019, Oral, Normal No discharge procedures on file. Shannan Matthews DO [address] [place] [address] APPOINTMENT SCHEDULED for FEBRUARY 28 AT 10AM. IF NEEDED RESCHEDULE APPOINTMENT. Valentina Lockett MD [address] [facility] [phone] In 10 days APPOINTMENT SCHEDULED for MARCH 07 AT 9:30AM. IF NEEDED RESCHEDULE APPOINTMENT. Discharge Management Time : 35 minutes Vicky Clark MD [phone] documented in this encounter Discharge Instructions Discharge Instr - Wound CareVicky Alfred RN - 02/26/2020 7:29 AM CDT Drainage tube care instructions Please follow these instructions to help maintain long-term success of your drainage tube in daily life. It is very important to avoid infection and other problems. Make sure your tube remains clean, in place and unplugged. You will receive a prescription and bag of supplies to use your tube. Share these instructions with anyone who may help with your home care. How do I change my dressing? You may receive a different type of drainage bag over time. Your clinician will show you how your bag and tube work. ?? Change sterile dressings every 2 to 3 days. ?? Wash hands with soap and warm water before removing and replacing a dressing. ?? Use a soft, clean washcloth to clean the area around the tube with mild soap and warm water. ?? Use a dry, soft clean washcloth to pat skin dry around the tube. ?? If necessary, reposition the tube so it does not kink or twist sharply. ?? Secure fresh, sterile gauze pads around the tube, using medical tape. ?? If you choose to clean the tube site when showering, clean the site gently with warm soapy water,dry thoroughly and apply new dressing. How do I flush the tube? ?? Flush your tube only if you develop one or more of the following: Fever of 100.5 or higher, no drainage in the bag, or leaking from your tube site. ?? Using a sterile saline syringe, flush the tube with 5 milliliters (ml) of saline ?? Push the plunger in the syringe for guzmán?? Do not draw the plunger back. How do I empty the drainage bag? ?? Empty the drainage bag when needed into the measuring cup provided. Record the amount of drainagedaily. ?? Bring your daily drainage log to all appointments. This is important for determining when your tube can be removed. ?? Dispose drainage in the toilet after you have recorded the amount. What do I do if the tube falls out or breaks? ?? Cover the tube site with a sterile dressing. ?? If the tube falls out during the day, call Interventional Radiology at [phone]. ?? If the tube falls out during the night, it is OK to wait until morning to call Interventional Radiology. What are my restrictions while my tube is in place? ?? No tub baths. Take only showers. ?? Do not submerge the tube site under water. ?? No swimming. What do I do if my tube appears to be plugged or the site is infected? Signs and symptoms ?? No drainage into the bag Troubleshoot before calling: Check that the tube is not kinked or twisted Unhook the bag and flush the tube (only if a clinicianhas taught you to do so)--Re-hook the bag to the tube. When to Call? See ???Telephone numbers?? below. ?? If you have no drainage within 12 hours of troubleshooting, and no fever of 101??F (38??C) or higher, chills or pain, call Interventional Radiology during usiness hours. ?? Fever of 101??F (38??C) or higher, chills or pain ?? Leakage ?? Tenderness ?? Swelling ?? Bleeding ?? Redness ?? Increased jaundice (yellow skin) Telephone numbers Interventional Radiology Weekdays , 7 a.m. to 5 p.m. [phone] A clinician or nurse will return your call. [facility] Weekdays, 5 p.m. to 7 a.m. Weekends, 24 hours [phone] Identify yourself as a patient and ask the rip machine operator to speak to the on-call interventional radiologist. A doctor will call you back. documented in this encounter Medications at Time [...] Take 2 Tablets by 100 Tablet 11 02/25/2020 10/01/2020 (TYLENOL) 325 MG mouth every 4 hours as tablet needed for Pain (Mild pain (pain scale 1-4)). acetaminophen Take 2 Tablets by 100 Tablet 11 02/27/202005/23 (TYLENOL) 500 MG mouth three times a tablet day. Maximum acetaminophen dose is 4000 mg in 24 hours butalbital-acetaminoph Take 1 Tablet by mouth 10 Tablet 0 0 08/22/2019 02/29/2020 en-caffeine (FIORICET) every 4 hours as 50-325-40 MG needed for Pain. tabletIndications: Headaches ibuprofen (MOTRIN) 600 Take 1 Tablet by mouth 40 Tablet 0 0 11/16/2019 02/29/2020 MG tablet every 6 hours as needed for Pain. oxyCODONE (ROXICODONE) Take 1-2 Tablets by 20 Tablet 0 10/0 09/201902/29/2020 5 MG immediate release mouth every 6 hours as tablet needed (severe pain). polyethylene glycol Take 1 Packet by mouth 30 Each 0 10/11/2019/2021 (MIRALAX) 17 g packet daily as needed for Constipation. propranolol Take 1 Capsule by 90 Capsule 3 08/22/20192020 (INDERALLA) 80 MG 24 mouth daily. hour release capsuleIndications: Headaches, Essential hypertension (HRC) sertraline (ZOLOFT) 50 Take 50 mg by mouth 0 06/201906/06/2020 MG tablet daily. documented as of this encounter Progress Notes Carie Erazo RN - 02/27/2020 3:53 PM CDT DISCHARGE O: Patient safely discharged to home. D: Patient is alert and oriented x 4. Pt up independently . Discharge criteria met. Vaccines addressed prior to discharge- influenza vaccine administered prior to discharge. A: Discharge instructions and medications reviewed and given to patient. Written medication education material provided on opioids including possible side effects. Prescriptions filled by [facility] pharmacy. Belongings checklist reviewed with patient and belongings sent. Supplies sent dressing supplies andflushes for drains. Care plan issues addressed and education record updated. R: Patient verbalizes understanding and teaches back discharge instructions. Patient discharged by: wheelchair with staff. Carie Arredondo RN 3:54 PM 02/27/2020 Vicky Clark MD - 02/27/2020 3:16 PM CDT [address] [address] PH: [phone] RE: Estefania Mckeon : 1985 02/27/2020 To whom it may concern: This is to confirm that Estefania Mckeon has been treated as an in-patient at [facility] from 02/24/2020 to 02/27/2020. Estefania Mckeon is advised rest until 03/07/2020 Should you have any questions, please contact me at [phone] Sincerely Vicky Clark MD (Hospital Medicine) May Mendez RN - 02/27/2020 11:48 AM CDT Estefania denies questions on teaching from yesterday. She is still experiencing significant pain at drain sites. Midline drain with scant thick brown/red drainage. Neph tube with clear yellow drainage.Temp max last 24 hours 99.4. Will review chart and see what pt has for follow up in nephrology then discuss follow up with Dr Rao. Sun Keith RN - 02/26/2020 11:36 PM CDT Shift Updates: -A/Ox4. -Up w/SBA, ind ambulating to/from bathroom. -No BM yet, but passing gas. Denies nausea but no appetite. -Pain 5-7/10 in right posterior lateral flank, PRN PO Oxycodone 5mg x1 for breakthrough pain, otherwise only scheduled pain meds given this shift. -New bag IVF hung. -Washed hair. -S/O visited, patient tearful following visit and stated I only deal with him because he has my girls. Passed on to oncoming nurse to monitor. -VSS, will continue to monitor. Patient Vitals for the past 8 hrs: BP Temp Temp src Pulse Resp SpO2 02/26/20 2146 105/76 37.4 ??C (99.4 ??F) Oral 90 16 94 % Sun Keith RN 02/26/2020, 11:38 PM Vicky Alfred RN - 02/26/2020 3:12 PM CDT Interventional Radiology: T 36.7 Drain #1 with yellow colored urine and Drain #2 with reddish colored urine. Faced timed for education regarding caring for drains at home. Reviewed the sheet, Drainage Tube Caring for your tube after your procedure with the pt and her . Sheet will be sent home with the pt. Demonstrated flushing the drain. Pt will only flush the tube if she develops 1 ormore of the following fever or 100.5 or higher, no drainage in the bag or leaking around the tube site. Pt sent home with some flushes, supplies and prescription for supplies. Pt to follow up with urology. Pt and have our phone number to call if any questions or concerns arise. Vicky Alfred RN 3:24 PM 02/26/2020 Carie Erazo RN - 02/26/2020 2:03 PM CDT O: Patient status update. DA: BP 94/68 Pulse 86 Temp 37 ??C (98.6 ??F) (Oral) Resp 16 Ht 1.727 m (5' 8) Wt 73.9 kg (162 lb 14.7 oz) SpO2 96% BMI 24.77 kg/m?? . Pain ranging from 5-7 this shift, despite MD adjusting pain meds. Patient able to eat small amount of breakfast. Having output from both drains- drain teaching completed with IR RN and this afternoon via Facetime. Patient continues on Rocephin.Patient would like to try to shower and get out of bed once she has better pain control. R: MD updated per her request. Will continue to monitor. Carie Arredondo RN 2:05 PM 02/26/2020 Vicky Clark MD - 02/26/2020 12:22 PM CDT HOSPITALIST DAILY PROGRESS NOTE Admit Date: 02/24/2020 Date of service : 02/26/2020 SUBJECTIVE: Severe sharp pain in right flank with any movement. No N/V/fever OBJECTIVE: Vitals: Temp Av.2 ??C (98.9 ??F) Min: 37 ??C (98.6 ??F) Max: 37.6 ??C (99.6 ??F) BP Min: 94/68 Max: 114/83 Pulse Av.5 Min: 83 Max: 102 SpO2 Av.5 % Min: 94 % Max: 99 % Current weight: Weight: 73.9 kg (162 lb 14.7 oz) Admit weight: Weight: 73.9 kg (162 lb 14.7 oz) Estimated body mass index is 24.77 kg/m?? as calculated from the following: Height as of this encounter: 1.727 m (5' 8). Weight as of this encounter: 73.9 kg (162 lb 14.7 oz). I & O over last 24 hours: Intake/Output Summary (Last 24 hours) at 02/26/2020 1222 Last data filed at 02/26/2020 1000 Gross per 24 hour Intake 2097 ml Output 2600 ml Net -503 ml General: Alert, Oriented, NAD HEENT : Normocephalic. MM moist. Heart: Reg rate & Rhythm without murmurs. Respiratory: Normal respiratory effort. Lungs are clear Abdomen: soft, nontender, No guarding or rebound. Right percut nephrostomy tubes x 2 Extrs : no clubbing / cyanosis / edema. Labs: Recent Labs 02/25/20 0643 WBC 11.5* HGB 12.1 HCT 38.0 MCV 92.7 PLTS 201 Recent Labs 02/25/20 0643 GLUCOSE 85 SODIUM 137 K 4.0 BICARB 21 CHLORIDE 106 CA 8.9 BUN 6* CREATININE 0.76 GFR >60 ASSESSMENT/PLAN: 34 yo F admitted from [facility] for Staghorn ureterolithiasis of the R with hydronephrosis Sepsis / Pyelonephritis of right kidney / staghorn stone right kidney - urology consulted. Right ureteral stent placed 02/23. Per d/w dr Lockett, CT shows focal hydronephrosis involving the right upper pole due to staghorn stone obstructing the infundibulum of upper calyceal system - 2 right percut nephrostomy tubes placed by IR to help drain the upper part of the kidney - urine culture was not sent at [facility] - cultures sent from OR 02/24. BCx NTD - significant pain overnight after PCN placed - start scheduled tylenol, toradol, prn oxycodone - 14 days abx course per urology recommendations DISPO : home today if pain controlled with PO meds Updated patient. All Qs answered. Vicky Clark MD [facility] Hospitalist [phone] Gisela Vilchis MD - 02/25/2020 9:09 PM CDT Cross cover: Called for uncontrolled pain from nephrostomy tubes despite increase in dose and frequency of IV hydromorphone. Will switch from hydromorphone to morphine and add hydroxyzine to try and get better pain control. Vicky Clark MD - 02/25/2020 6:55 PM CDT HOSPITALIST DAILY PROGRESS NOTE Admit Date: 02/24/2020 Date of service : 02/25/2020 SUBJECTIVE: Better than on admission but flank pain persists. No N/V OBJECTIVE: Vitals: Temp Av.9 ??C (98.4 ??F) Min: 36.1 ??C (97 ??F) Max: 37.5 ??C (99.5 ??F) BP Min: 88/68 Max: 113/88 Pulse Av.6 Min: 83 Max: 117 SpO2 Av.3 % Min: 94 % Max: 100 % Current weight: Weight: 73.9 kg (162 lb 14.7 oz) Admit weight: Weight: 73.9 kg (162 lb 14.7 oz) Estimated body mass index is 24.77 kg/m?? as calculated from the following: Height as of this encounter: 1.727 m (5' 8). Weight as of this encounter: 73.9 kg (162 lb 14.7 oz). I & O over last 24 hours: Intake/Output Summary (Last 24 hours) at 02/25/2020 1855 Last data filed at 02/25/2020 1205 Gross per 24 hour Intake 2316 ml Output 3151 ml Net -835 ml General: Alert, Oriented, NAD HEENT : Normocephalic. MM moist. Heart: Reg rate & Rhythm without murmurs. Respiratory: Normal respiratory effort. Lungs are clear Abdomen: soft, nontender, No guarding or rebound. Extrs : no clubbing / cyanosis / edema. Labs: Recent Labs 02/25/20 0643 WBC 11.5* HGB 12.1 HCT 38.0 MCV 92.7 PLTS 201 Recent Labs 02/25/20 0643 GLUCOSE 85 SODIUM 137 K 4.0 BICARB 21 CHLORIDE 106 CA 8.9 BUN 6* CREATININE 0.76 GFR >60 ASSESSMENT/PLAN: 34 yo F admitted from [facility] for Staghorn ureterolithiasis of the R with hydronephrosis Pyelonephritis of right kidney / staghorn stone right kidney - urology consulted. Right ureteral stent placed 02/23. Per d/w dr Lockett, CT shows focal hydronephrosis involving the right upper pole due to staghorn stone obstructing the infundibulum of upper calyceal system - plans for right percut nephrostomy to help drain the upper part of the kidney - ok to discharge after percut nephrostomy drain on PO abx x 14 days & f/u with urology in 10-14days - urine culture was not sent at [facility] - cultures will be sent from OR today. BCx NTD DISPO : home today if stable post procedure - Rx for cipro & [facility] Updated patient. All Qs answered. Vicky Clark MD [facility] [phone] Amee Cabezas RN - 02/24/2020 9:32 PM CDT POST-OP O: Patient will have a stable post-op period. D: Pt arrived to room 413/413 -01, at 2109 (time). Patient is alert and oriented. Initial Vital Signs: Temp: 36.5 ??C (97.7 ??F) (02/24/202057) Pulse: (!) 107 (02/24/202114) Resp: 18 (02/24/202057) BP: 100/72 (02/24/202114) SpO2: 100 % (02/24/202114) Pain rated at: 2. See Assessment and Doc Flowsheets for equipment and lines/drains. Dressing is other: no drainage noted. A: Monitor vital signs and assess patient per protocol. Patient oriented to bed controls and call lights. Discussed plan of care with patient. See Education Record. R: Patient settled to room. Will continue to monitor. Amee Cabezas RN 9:33 PM 02/24/2020 Ivy Cox RN - 02/24/2020 7:01 PM CDT GOING TO PROCEDURE / SURGERY O: Patient will go to Surgery for Cystoscopy with R ureteral stent placement. D: Patient is alert and oriented x 4. Last recorded vitals: Temp: 37.2 ??C (98.9 ??F) (02/24/201806) Pulse: (!) 110 (02/24/201806) Resp: 16 (02/24/201806) BP: 108/74 (02/24/201806) SpO2: 97 % (02/24/201806) A: Pre-procedure check list completed. Consent on chart, signed: No R: Awaiting transport. Ivy Condon RN - 02/24/2020 2:04 PM CDT ADMIT O: Admitted patient via cart from [facility] to bed # 413/413 -01. D: Patient is alert and oriented x 4; See Admission Assessments. A: Discussed plan of care. See education record for admission education. Oriented to room. Call light in reach. Bed alarm: off R: Patient status: Stable; pain 8/10. Will monitor. Ivy Cox RN 2:05 PM 02/24/2020 Glenn Lama MD - 02/24/2020 1:28 PM CDT Direct Admit/Transfer Report Nonbillable service Name//MRN: Estefania Mckeon [id number] Referring Facility: [facility] Referring MD: Nanveet Sauceda Symptoms/Diagnosis: Staghorn ureterolithiasis of the R with hydronephrosis with associated sepsis WBC 14.8 Needs: IV antibiotics, Urology consult, IR consult for percutaneous nephrostomy Bed Level Requested: med/surg Please page the hospital triage pager upon pt's arrival. Glenn Lama MD 02/24/2020, 1:28 PM documented in this encounter Procedure Notes Valentina Lockett MD - 02/24/2020 8:39 PM CDT [facility] Brief Operative Progress Note Surgery Date: 02/24/2020 Surgeon(s) and Role: * Valentina Lockett MD - Primary Pre-op Diagnosis: * Pyelonephritis of right kidney [N12] Right hydronephrosis Post-op Diagnosis: * Pyelonephritis of right kidney [N12] Right hydronephrosis Procedure(s) (LRB): CYSTOSCOPY, RIGHT RETROGRADE PYLEOGRAM, URETERAL STENT PLACEMENT (Right) EBL: 1 cc Specimens: * No specimens in log * Complications / Findings: No complications. Aracelis Lockett MD Valentina Lockett MD - 02/24/2020 12:00 PM CDT NAME: ESTEFANIA MCKEON MR#: [id number] CSN: [id number] AUTHENTICATING CLINICIAN: Valentina Lockett MD CONFIRM #: [id number] LOC: 1 OPERATIVE REPORT DATE OF OPERATION: 02/24/2020 : 1985 SURGEON: Valentina Lockett MD PREOPERATIVE DIAGNOSES: Right hydronephrosis, acute pyelonephritis and a staghorn stone. 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 ANESTHESIA: MAC and local with 2% lidocaine jelly. PREOPERATIVE STATUS: Please refer to my initial consultation note. OPERATIVE PROCEDURE AND FINDINGS: The patient was placed in a lithotomy position and her operative area was prepped and draped in the usual sterile fashion. Lidocaine 2% jelly 10 mL was injected to the urethra. Cystoscopy was performedfirst. It showed a normal urethra. In the bladder, hyperemic changes throughout the entire bladder, c onsistent with an ongoing cystitis and UTI. There was also mucus-like material in the bladder. The right ureteral orifice was identified. It is a single ureteral orifice. Next, I passed a TigerTail catheter. I could not advance the ureteral catheter much more than just 1.5 cm. At this time, I performed retrograde pyelogram which outlined the entire ureter which appears to be normal caliber. There is questionable hydronephrosis. The collecting system was opacified only partially. That led me to suspect that this patient may have a duplicated collecting system. I was only outlining the ureter draining the upper moiety. Next, I tried to put a guidewire through. I could not advance or pass a Sensor wire. I then changed to angled Glidewire. Very difficult. With multiple tries, that Glidewire could notget into the ureter. After multiple tries, finally, the Glidewire passed into ureter. I then advanced this ureteral catheter over the guidewire into the upper ureter. I shot contrast again and this time, it showed a normal-appearing partial collecting system. That makes me wonder if this is just a part of the collecting system. I then passed a guidewire into the renal pelvis and placed a 6-Belarusian multi-length double-J stent under fluoroscopic guidance. I then looked diligently for a separate ureteral orifice. I could not find any. I tried to pass another Glidewire through the same ureter and could not advance it. At this time, I just had to stop it. Right now, the kidney is draining. There were nocomplications, minimal blood loss, less than 1 mL, and she left the operating room in a satisfactory condition. Regarding management, patient will continue to receive Rocephin. I will get a CT scan with and without IV contrast tomorrow morning, just to get a better delineation of anatomy. Her renal functions arenormal with a creatinine of 0.88 and will get an idea. If there is a continued and severe hydronephrosis, then we may have to put a percutaneous nephrostomy tube to drain the lower moiety of the kidneyif there is a duplicated collecting system. GZ:MEDQ C: CONFIRM #: [id number] documented in this encounter Consult Notes Valentina Lockett MD - 02/25/2020 12:58 PM CDT NAME: ESTEFANIA MCKEON MR#: [id number] CSN: [id number] AUTHENTICATING CLINICIAN: Valentina Lockett MD CONFIRM #: [id number] LOC: 1 HOSPITAL CONSULTATION DATE OF CONSULTATION: 02/25/2020 : 1985 REQUESTING PHYSICIAN: This patient is known to me. I scheduled the CT with and without IV contrast. The CT provided very useful information. First of all, it delineated the correct anatomy. There is no duplication of the right kidney. The focal hydronephrosis involving the right upper pole is due to a staghorn stone obstructing the infundibulum of upper calyceal system and that is where that stone is at a choking point. CT also showed xanthogranulomatous pyelonephritis. The stent is in the right place, but draining only the lower portion of the kidney. 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 Both kidneys function well and the right kidney showed good contracts going through the collecting system. Regarding management, I talked with the patient. I urged her to get a percutaneous nephrostomy tube placement to drain the upper pole. I do not know how much renal function is left in the upper pole. However, if the drainage is placed, the infection can be controlled, and if we can remove the stone, and r esume the drainage. Even with limited function, at least, she does not need a partial nephrectomy. Ithink this is very advanced tedious. I pulled out the CT images and explained to her the anatomy, and she agreed with the plan. I also talked with Dr. Koch, the hospitalist today, and we outlined the plan. After nephrostomy tube placement, the patient can go home with oral antibiotics. I will see herin 2 weeks for followup and will get a Lasix renogram to assess renal function, then will talk abouta right PCNL. Clinically, she is doing well. Her white count is going down. She still feels pain. When I examined her, there is CVA tenderness upon percussion in the right side. DIAGNOSES: 1.Right hydronephrosis. 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 3.Right hydronephrosis due to a staghorn stone. GZ:MEDQ C: CONFIRM #: [id number] Valentina Lockett MD - 02/24/2020 4:23 PM CDT This office note has been dictated. Valentina Lockett MD - 02/24/2020 12:00 PM CDT NAME: ESTEFANIA MCKEON MR#: [id number] CSN: [id number] AUTHENTICATING CLINICIAN: Valentina Lockett MD CONFIRM #: [id number] LOC: 1 HOSPITAL CONSULTATION DATE OF CONSULTATION: 02/24/2020 : 1985 REQUESTING PHYSICIAN: Shiva De La Vega MD HISTORY OF PRESENT ILLNESS: I was asked by Dr. De La Vega to see this 34-year-old white female who [place] [facility] [place], large staghorn stones, acute right pyelonephritis, and sepsis. The patient has developed right flank pain for the last 2 days. It became much worse overnight and early this morning. He came to [facility]. CT showed a 3 cm staghorn stone with extensionto the calices, severe right hydronephrosis, and a bunch of clusters of stones. UA is grossly abnormal. White count is 14.6. Temperature 100.2, with tachycardia. She was transferred here for further care. When I reviewed her chart, there was no x-ray. I was able to find the x-ray report. I contacted our x-ray department and just downloaded the CT images. I will describe the findings below. The patient denies gross hematuria. PAST MEDICAL HISTORY: Significant for kidney stone disease during the college years. She underwent ureteroscopy and stone removal. During her , she passed some stone fragments. She has never had upper tract urinarytract studies. Her past medical history also includes hypertension, which has lasted after the last . and she is on medication. Recent fallopian tube surgery. SOCIAL HISTORY: She is , nonsmoker, social drinker. 2, para 2. FAMILY HISTORY: Both parents in their late 50s. Father had diabetes and heart attack. Mother also from heart attack. REVIEW OF SYSTEMS: Low-grade temperature of 100.2. She is feeling sick and rather severe right flank pain. No nausea. No vomiting. No gross hematuria. The remainder of a complete review of systems negative. She has not had a COVID test yet, but no symptoms. PHYSICAL EXAM: GENERAL: She is pleasant, good physical and mental condition. Mild acute distress. Her is present. There is no neck adenopathy or thyromegaly. There is significant tenderness in the right CVA area. The abdomen is otherwise soft, tender in the right upper quadrant as well. No guarding, no rigidity. No leg edema. ASSESSMENT: I reviewed the labs, as mentioned above. Her electrolytes are normal and renal function is normal. Ireviewed CT images. 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 In the right kidney, severe right hydronephrosis, very thin renal parenchyma. In the renal pelvis, there is a staghorn stone, the largest dimension is 3 cm, which branches out. In the mid calyx, there is a cluster of stones, 2.5 x 1.5. There are all scattered stone fragments. The right ureteral caliber is normal. Not sure if there is duplication or not at this time due to lack of contrast study. The rest of the CT is unremarkable. ASSESSMENT AND PLAN: I talked with the patient and her . The patient has: 1.Severe right hydronephrosis due to ureteropelvic junction obstruction. Whether or not the hydronephrosis is caused by the staghorn stone alone or ureteropelvic junction obstruction or both is not clear. Given such severe thinning of the right renal parenchyma, I think the hydronephrosis probably has been going on for a long time. 2.A large staghorn stone, which needs to be taken care of in the future, but not right now because there is acute infection. 3.There is acute right pyelonephritis. 4.For all these reasons, the patient needs to have cystoscopy with right ureteral stent placement. Then, later on, during the followup, with a stent in, I will consider a Lasix renogram to assess renalfunction and then will decide what to do. Most likely, this patient will need a percutaneous nephrolithotomy. I ben them a picture to explain [id number] how the stent is placed and what is the purpose. There is a small chance, if the right ureteropelvic junction is severely obstructed, I may not beable to put a stent in, and then we have to have a percutaneous nephrostomy tube. Later, we talked about how the percutaneous nephrolithotomy is performed. I answered all their questions. They all agreed with the plan. The problem is OR accessibility. I called the OR. We have to wait until hopefully 7:30 or so, but I guess we have no choice and will proceed with this tonight. DIAGNOSES: 1.Right kidney staghorn stone. 2.Right severe hydronephrosis. 3.Right acute pyelonephritis. GZ:MEDQ C: CONFIRM #: [id number] documented in this encounter OR Notes H&P - Shiva De La Vega MD - 02/24/2020 2:27 PM CDT HISTORY AND PHYSICAL HPI: Estefania Mckeon is a 34 y.o. female with two days of flank pain. Became severe overnight. Seen at [facility], CT shows 3 cm staghorn calculus in renal pelvis with hydronephrosis. Pt UA ambnormal. Mild elevation of WBC. Temp 100.2. Tachy. [facility]. Pt reports previous hx of stone many years ago. Hx of htn with many years ago, was startedon propranolol and has continued it since. Hx of depression on zoloft. No heart or lung disease. Nonsmoker. No etoh. Here in room with . Review of Systems A comprehensive review of systems was negative The following were reviewed in [facility]: active problem list, medication list, notes from last encounter, lab results, imaging, medical and surgical history Objective: BP 108/75 Pulse (!) 126 Temp 37.9 ??C (100.2 ??F) (Oral) Ht 1.727 m (5' 8) Wt 73.9 kg (162 lb 14.7 oz) SpO2 97% BMI 24.77 kg/m?? White female in no distress Lungs: cta Heart: rrr Ab: soft UA with packed cells at [facility]. WBC 11.9. PLAN: Very large renal stone with hydronephrosis and UA concerning for infection. Low grade temp, mild elevation of wbc. Pt tachy, but couldb pain related. Start ceftriaxone, IVF, dilaudid, spoke with urology, they will see. Keep NPO until urology sees. Will hold STRIP DEBURRER propranolol for now. Continued zolft. Follow BP. Pt confirms FUll code Low risk for VTE, planned procedure. Shiva De La Vega MD documented in this encounter Plan of Treatment Not on filedocumented as of this encounter Procedures Procedure Name Priority Date/Time Associated Diagnosis Comme nts IR NEPHROSTOMY TUBE STAT 02/25/2020 6:25 Resul ts for this PLACEMENT PM CDT procedure are i n the results section. AEROBIC & ANAEROBIC Routine 02/25/2020 5:56 Resul ts for this CULTURE PANEL PM CDT procedure are in the results section. ANAEROBIC CULTURE Routine 02/25/2020 5:56 Results for this PM CDT procedure are i n the results section. AEROBIC CULTURE Routine 02/25/2020 5:56 Results f or this PM CDT procedure are i n the results section. CT ABD PELVIS W/WO Routine 02/25/2020 11:07 Resul ts for this IV CONT IVP AM CDT procedure are i n HEMATURIA the results section. CBC AND DIFFERENTIAL Routine 02/25/2020 6:43 Resu lts for this PANEL AM CDT procedure are i n the results section. COMPLETE BLOOD Routine 02/25/2020 6:43 Results fo r this COUNT-W/DIFF AM CDT procedure are i n the results section. BASIC METABOLIC Routine 02/25/2020 6:43 Results f or this PANEL AM CDT procedure are i n the results section. FL RETROGRADE Routine 02/24/2020 8:45 Results for this PYELOGRAM PM CDT procedure are i n the results section. CYSTOSCOPIC 02/24/2020 7:35 Pyelonephritis of PLACEMENT URETERAL PM CDT right kidney STENT 2019 NOVEL STAT 02/24/2020 4:34 Results for this CORONAVIRUS PM CDT procedure are i n the results section. FOREIGN IMAGE(S) CT Routine 02/24/2020 3:51 Resul ts for this ABDOMEN/PELVIS PM CDT procedure are in the results section. BLOOD CULTURE Routine 02/24/2020 2:55 Results for this PM CDT procedure are i n the results section. BLOOD CULTURE Routine 02/24/2020 2:55 Results for this PM CDT procedure are i n the results section. documented in this encounter Results IR Nephrostomy Tube Placement (02/25/2020 6:25 PM CDT) Anatomical Region Laterality Modality X-Ray Angiography Specimen (Source) Anatomical Collection Method Collection Time Re ceived Time Location / / Volume Laterality 02/25/2020 4:59 PM CDT Impressions 02/25/2020 8:00 PM CDT PROCEDURE(S): ??Image guided placement o f nephrostomy tubes in the superior pole and midpole of the right kidney. ?? CLINICAL HISTORY: ??Staghorn calculus. H ydronephrotic superior and mid poles. 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 Retrograde double-J stent with loop in lower pole of kidney. CONSENT: ??Risks, benefits and alternati ves of the procedure were discussed with the patient. ??All questions were answered and the patient agreed to proceed. ? MEDICATION: ??Versed 6.5 mg. Fentanyl 35 0 mcg. Moderate conscious sedation was provided under my supervision. The patient was independently monitored by a Registered Nurse using continuous cardiopulmonary monitoring. The detailed record is permanent ly stored in the Hospital Information Sy stem. Total physician intraservice time as 75 minutes. TECHNIQUE/FINDINGS CT imaging is reviewed. Staghorn calculu s extending into the calyces of superior and midpole right kidney. Both the superior and midpole right kidney are hydronephrotic. The lower pole is is relatively normal in appearance. Patient placed prone on the fluoroscopy table. Ultrasound was used to evaluate the right kidney. After sterile preparation and local anesthesia ultrasound- guided access was gained in the mid pole hydron ephrotic portion. A guidewire was placed and advanced across the stone bearing infundibulum pelvis. The track was dilated and a 10 Belarusian nephrostomy tube with additional sideholes placed along the 5 cm of the tube shaft adjacent to the pigta il was advanced over the wire. The tube was positioned such that on the locked and unlooped portion of the catheter is in the renal pelvis and the additional side holes extend across the portion of the s tone and into the hydronephrotic mid pole. It became evident that the superior pole kidney was not in communication with the mid pole. Thus, a second nephrostomy tube was placed in the superior pole from a similar skin starting point using the s mike ultrasound and fluoroscopic guided t echnique. The second tube was looped and locked in place within the hydronephrotic upper pole. Both tubes were secured to the skin with 2-0 Ethilon stitches and attached to bag for ongoing drainage. IMPRESSION: 1. Ultrasound and fluoroscopic guided pl acement of midpole nephrostomy tube. This tube extends across the stone bearing infundibulum of the staghorn calculus with catheter extending from the renal pelvis to the hydronephrotic mid pole. 2. Ultrasound and fluoroscopic guided pl acement of superior pole nephrostomy tube. This tube is coiled in the hydronephrotic superior pole. Procedure Note Jordan Cross MD - 02/25/2020Format ting of this note might be different from the original. IMPRESSION PROCEDURE(S): Image guided placement of nephrostomy tubes in the superior pole and midpole of the right kidney. CLINICAL HISTORY: Staghorn calculus. Hyd ronephrotic superior and mid poles. 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 Retrograde double-J stent with loop in lower pole of kidney. CONSENT: Risks, benefits and alternative s of the procedure were discussed with the patient. All questions were answered and the patient agreed to proceed. MEDICATION: Versed 6.5 mg. Fentanyl 350 mcg. Moderate conscious sedation was provided under my supervision. The patient was independently monitored by a Registered Nurse using continuous cardiopulmonary monitoring. The detailed record is permanently stored in the Hospital Information System. Total p hysician intraservice time as 75 minutes. TECHNIQUE/FINDINGS CT imaging is reviewed. Staghorn calculu s extending into the calyces of superior and midpole right kidney. Both the superior and midpole right kidney are hydronephrotic. The lower pole is is relatively normal in appearance. Patient placed prone on the fluoroscopy table. Ultrasound was used to evaluate the right kidney. After sterile preparation and local anesthesia ultrasound- guided access was gained in the mid pole hydronephrotic portion. A guidewire was placed and adva nced across the stone bearing infundibulum pelvis. The track was dilated and a 10 Belarusian nephrostomy tube with additional sideholes placed along the 5 cm of the tube shaft adjacent to the pigtail was advanced ove r the wire. The tube was positioned such that on the locked and unlooped portion of the catheter is in the renal pelvis and the additional sideholes extend across the portion of the stone and into the hydronephrotic mid pole. It became evident that the superior pole kidney was not in communication with the mid pole. Thus, a second nephrostomy tube was placed in the superior pole from a similar skin starting point using the same ultrasound and fluoroscopic guided technique. The s econd tube was looped and locked in place within the hydronephrotic upper pole. Both tubes were secured to the skin with 2-0 Ethilon stitches and attached to bag for ongoing drainage. IMPRESSION: 1. Ultrasound and fluoroscopic guided pl acement of midpole nephrostomy tube. This tube extends across the stone bearing infundibulum of the staghorn calculus with catheter extending from the renal pelvis to the hydronephrotic mid pole. 2. Ultrasound and fluoroscopic guided pl acement of superior pole nephrostomy tube. This tube is coiled in the hydronephrotic superior pole. Valentina Lockett MD RAD IR (ABNORMAL) Anaerobic Culture (02/25/2020 5:56 PM CDT) [facility] Method Time Signature Anaerobic Growth (A) 02/27/2020 [facility] Culture 10:28 AM CDT HOSPITAL Anaerobic Many Multiple 02/27/2020 [facility] Culture Bacterial 10:28 AM CDT HOSPITAL Morphotypes Specimen Anatomical Collection Method Collection Time Receive d Time (Source) Location / / Volume Laterality Aspirate TISSUE SPECIMEN Non-blood 02/25/2020 5:56 PM 2019 6:16 FROM KIDNEY / Collection / CDT PM CDT Unknown Unknown Narrative [facility] - 02/27/2020 10:28 AM C DT No Predominant Anaerobes Present. Vicky Clark MD LAB_1 Performing Organization Address [facility]/ZIP Code Phon e Number [address] [address] (ABNORMAL) Aerobic Culture (02/25/2020 5:56 PM CDT) [facility] gist Method Time Signature Aerobic Culture Pending 02/28/2020 [facility] Culture 5:26 PM CDT HOSPITAL Aerobic Few Multiple 02/28/2020 [facility] Culture Bacterial 5:26 PM CDT HOSPITAL Morphotypes Gram Smear Many PMN's 02/28/2020 [facility] Present (A) 5:26 PM CDT HOSPITAL Gram Smear Few Gram 02/28/2020 [facility] Positive Cocci 5:26 PM CDT HOSPITAL (A) Specimen Anatomical Collection Method Collection Time Receive d Time (Source) Location / / Volume Laterality Aspirate TISSUE SPECIMEN Non-blood 02/25/2020 5:56 PM 2019 6:16 FROM KIDNEY / Collection / CDT PM CDT Unknown Unknown Vicky Clark MD LAB_1 Performing Organization Address [facility] Code Phon e Number [address] [address] [address] Abd Pelvis W/WO IV Cont IVP Hematuria (02/25/2020 11:07 AM CDT) Anatomical Region Laterality Modality Abdomen, Pelvis Computed Tomography Specimen (Source) Anatomical Collection Method Collection Time Re ceived Time Location / / Volume Laterality 02/25/2020 10:48 AM CDT Impressions 02/25/2020 11:33 AM CDT COMPARISON: ??None. TECHNIQUE: ??Images of the abdomen and p erica before and following the administration of 100 mL IOPAMIDOL 61 % IV SOLN using the urology protocol. FINDINGS: KIDNEYS AND COLLECTING SYSTEM: There is a double-J ureteral stent on the right, which terminates proximally in the lower pole calyces, associated with relatively normal-appearing lower pole renal parenc hyma. The interpolar region and superior pole of the kidneys show an appearance most consistent with a xanthogranulomatous hilar nephritis including an obstructing stone midportion of the renal pelvis d raining the interpolar region and upper pole calyces. On urographic phase imaging, this appears to at least partially communicate with the area drained by the double-J ureteral stent, as a small amount of contrast enters in the dilated upper pole renal calyces along with a few stones. On the left, there is a partially duplicated renal collecting system, with the upper pole and lower pole moieties join ing at the level of the mid ureter. The urinary bladder shows a small amount air (likely related to recent instrumentation) but is otherwise unremarkable. ABDOMEN AND PELVIS: Liver is unremarkabl e. Gallbladder and biliary tree are within normal limits. Pancreas, spleen, adrenals, bowel, uterus/ovaries, subcutaneous fat and musculature are within normal li mits. Mild perinephric fluid. Mildly pro minent retroperitoneal lymph nodes without jose de jesus adenopathy. Vasculature is within normal limits. IMPRESSION: 1. Findings most consistent with a xanth ogranulomatous pyelonephritis involving the upper pole and interpolar region of the right kidney, with a staghorn calculus affecting only the upper pole and inter polar region calyces. This portion of th e pelvis communicates with the lower pole extrarenal pelvis, but the lower pole does not appear obstructed. The proximal pigtail of the double-J ureteral stent is located in the lower pole, which is non obstructed and drains normal appearing renal parenchyma. There is only one right extrarenal pelvis, and there is no duplication of the ureters on the right. 2. Partial duplication of the left renal collecting system. The upper pole and lower pole moiety ureters appear to join near the L4/L5 level. Procedure Note Jayden Salazar MD - 02/25/2020Format ting of this note might be different from the original. IMPRESSION COMPARISON: None. TECHNIQUE: Images of the abdomen and pel vis before and following the administration of 100 mL IOPAMIDOL 61 % IV SOLN using the urology protocol. FINDINGS: KIDNEYS AND COLLECTING SYSTEM: There is a double-J ureteral stent on the right, which terminates proximally in the lower pole calyces, associated with relatively normal-appearing lower pole renal parenchyma. The interpolar region and superior pole of t he kidneys show an appearance most consistent with a xanthogranulomatous hilar nephritis including an obstructing stone midportion of the renal pelvis draining the interpolar region and upper pole calyces. On urogra phic phase imaging, this appears to at least partially communicate with the area drained by the double-J ureteral stent, as a small amount of contrast enters in the dilated upper pole renal calyces along with a few ston es. On the left, there is a partially duplicated renal collecting system, with the upper pole and lower pole moieties joining at the level of the mid ureter. The urinary bladder shows a small amount air (likely related to recent instrumentation) but is otherwise unremarkable. ABDOMEN AND PELVIS: Liver is unremarkabl e. Gallbladder and biliary tree are within normal limits. Pancreas, spleen, adrenals, bowel, uterus/ovaries, subcutaneous fat and musculature are within normal limits. Mild perinephric fluid. Mildly prominent retroperitoneal lymph nodes without jose de jesus adenopathy. Vasculature is within normal limits. IMPRESSION: 1. Findings most consistent with a xanth ogranulomatous pyelonephritis involving the upper pole and interpolar region of the right kidney, with a staghorn calculus affecting only the upper pole and interpolar region calyces. This portion of the pelvis comm unicates with the lower pole extrarenal pelvis, but the lower pole does not appear obstructed. The proximal pigtail of the double-J ureteral stent is located in the lower pole, which is nonobstructed and drains normal appearing renal parenchyma. There is only one right extrarenal pelvis, and there is no duplication of the ureters on the right. 2. Partial duplication of the left renal collecting system. The upper pole and lower pole moiety ureters appear to join near the L4/L5 level. Valentina Lockett MD RAD CT (ABNORMAL) Complete Blood Count-W/Diff (02/25/2020 6:43 AM CDT) [facility] Method Time Signature WBC 11.5 (H) 3.5 - 10.5 02/25/2020 [facility] x10(9)/L 7:03 AM CDT LABORATORY RBC 4.10 3.90 - 02/25/2020 [facility] 5.03 7:03 AM CDT LABORATORY x10(12)/L Hemoglobin 12.1 12.0 - 02/25/2020 [facility] 15.5 g/dL 7:03 AM CDT LABORATORY HCT 38.0 34.9 - 02/25/2020 [facility] 44.5 % 7:03 AM CDT LABORATORY MCV 92.7 80.0 - 02/25/2020 [facility] 100.0 fL 7:03 AM CDT LABORATORY MCH 29.5 27.6 - 02/25/2020 [facility] 33.3 pg 7:03 AM CDT LABORATORY MCHC 31.8 31.5 - 02/25/2020 [facility] 35.2 g/dL 7:03 AM CDT LABORATORY RDW 12.7 11.9 - 02/25/2020 [facility] 15.5 % 7:03 AM CDT LABORATORY Platelets 201 150 - 450 02/25/2020 [facility] x10(9)/L 7:03 AM CDT LABORATORY Automated NRBC 0 <=0 /100 02/25/2020 [facility] WBC 7:03 AM CDT LABORATORY Neutrophil 8.4 (H) 1.7 - 7.0 02/25/2020 [facility] Absolute 10(9)/L 7:03 AM CDT LABORATORY Lymphocyte 1.6 1.0 - 4.8 02/25/2020 [facility] Absolute 10(9)/L 7:03 AM CDT LABORATORY Monocytes 1.4 (H) 0.2 - 0.9 02/25/2020 [facility] Absolute 10(9)/L 7:03 AM CDT LABORATORY Eosinophil 0.0 0.0 - 0.5 02/25/2020 [facility] Absolute 10(9)/L 7:03 AM CDT LABORATORY Basophil 0.0 0.0 - 0.3 02/25/2020 [facility] Absolute 10(9)/L 7:03 AM CDT LABORATORY Immature Gran % 0.3 0.0 - 0.5 02/25/2020 [facility] % 7:03 AM CDT LABORATORY Specimen Anatomical Collection Method / Collection Time Recei doc Time (Source) Location / Volume Laterality Blood Venipuncture / 02/25/2020 6:43 02/25/2020 7:00 Unknown AM CDT AM CDT Valentina Lockett MD LAB_1 Performing Organization Address City/State/ZIP Code Phon e Number [facility] [address] [place] [address] (ABNORMAL) Basic Metabolic Panel (IN AM) (02/25/2020 6:43 AM CDT) P athologist Signature Sodium 137 136 - 145 02/25/2020 [facility] mmol/L 7:40 AM CDT LABORATORY Potassium 4.0 3.5 - 5.1 02/25/2020 [facility] mmol/L 7:40 AM CDT LABORATORY Chloride 106 98 - 109 02/25/2020 [facility] mmol/L 7:40 AM CDT LABORATORY CO2 21 20 - 29 02/25/2020 [facility] mmol/L 7:40 AM CDT LABORATORY Anion Gap 10 7 - 16 02/25/2020 [facility] mmol/L 7:40 AM CDT LABORATORY Calcium 8.9 8.4 - 10.4 02/25/2020 [facility] mg/dL 7:40 AM CDT LABORATORY BUN 6 (L) 7 - 26 02/25/2020 [facility] mg/dL 7:40 AM CDT LABORATORY Creatinine 0.76 0.55 - 02/25/2020 [facility] 1.02 mg/dL 7:40 AM CDT LABORATORY GFR, Estimated >60 >60 02/25/2020 [facility] mL/min/1.7 7:40 AM CDT LABORATORY 3m2 Glucose 85 70 - 100 02/25/2020 [facility] mg/dL 7:40 AM CDT LABORATORY Comment: The given reference range is fo r the fasting state. Non-fasting reference range for glucose is 70 - 180 mg/dL. Specimen Anatomical Collection Method / Collection Time Recei doc Time (Source) Location / Volume Laterality Blood Venipuncture / 02/25/2020 6:43 02/25/2020 7:00 Unknown AM CDT AM CDT Valentina Lockett MD LAB_1 Performing Organization Address City/State/ZIP Code Phon e Number [facility] [address] [place] [address] [place] Retrograde Pyelogram (02/24/2020 8:45 PM CDT) Anatomical Region Laterality Modality Abdomen, Pelvis Radio Fluoroscopy Specimen (Source) Anatomical Collection Method Collection Time Re ceived Time Location / / Volume Laterality 02/24/2020 7:48 PM CDT Impressions 02/25/2020 7:30 AM CDT COMPARISON: ??Outside CT abdomen and pelvis dated 02/24/2020 FINDINGS: The ureter appears nondilated. Large staghorn type calculus/multiple calculi within the right intrarenal collecting system. A double-J right ureteral stent was placed with the upper aspect in the area of the lower pole calyx, but it is uncertain if this is draining the hydronephrotic mid and upper pole calyces, which appear to be obstructed by the calculus on the CT. IMPRESSION: ??Right double-J ureteral st ent placement is within satisfactory ureteral position; the upper aspect however may be within the non-dilated lower pole calyx of the right kidney, not hydronephrotic mid and upper pole. Procedure Note Bandar Couch MD - 02/25/2020Forma tting of this note might be different from the original. IMPRESSION COMPARISON: Outside CT abdomen and pelvi s dated 02/24/2020 FINDINGS: The ureter appears nondilated. Large staghorn type calculus/multiple calculi within the right intrarenal collecting system. A double-J right ureteral stent was placed with the upper aspect in the area of the lower pole calyx, but it is uncer tain if this is draining the hydronephrotic mid and upper pole calyces, which appear to be obstructed by the calculus on the CT. IMPRESSION: Right double-J ureteral sten t placement is within satisfactory ureteral position; the upper aspect however may be within the non-dilated lower pole calyx of the right kidney, not hydronephrotic mid and upper pole. Valentina Lockett MD [facility] [place] 2019 Novel Coronavirus - Rapid (COVID-19) (02/24/2020 4:34 PM CDT) [facility] Method Time Signature COVID-19 Not Not 02/24/2020 [facility] Interpretation Detected Detected 5:51 PM CDT LABORATORY Specimen Anatomical Collection Method Collection Time Receive d Time (Source) Location / / Volume Laterality Swab (Source Non-blood 02/24/2020 4:34 PM 0 4:40 Required) Collection / CDT PM CDT Unknown Narrative [facility] - 02/24/2020 5:51 P M CDT Test performed by real-time PCR. This test has been authorized by the FDA under an Emergency Use Authorization (EUA) for use by authorized laboratories. Shiva De La Vega MD LAB_1 Performing Organization Address City/State/ZIP Code Phon e Number [facility] [id number] [place] [address] Foreign Image(S) CT Abdomen/Pelvis (02/24/2020 3:51 PM CDT) Specimen (Source) Anatomical Location Collection Method / Collectio n Time Received Time / Laterality Volume Narrative EXTERNAL RESULTS - 02/24/2020 3:51 PM CD T These outside images have been uploaded into PACS. If the results were provided, they will be located in the l[facility] cont[facility]'s chart under the Media or Imaging tab. Foreign Images Provider RAD NON-REPORTABLES Performing Organization Address City/State/ZIP Code Phon e Number EXTERNAL RESULTS Blood Culture (02/24/2020 2:55 PM CDT) [facility] gist Method Time Signature Blood Culture No Growth [facility] 02/29/2020 [facility] at 5 Days ETEST 5:01 PM CDT HOSPITAL METHOD Specimen Anatomical Collection Method / Collection Time Recei doc Time (Source) Location / Volume Laterality Blood ENTIRE RIGHT HAND Venipuncture 02/24/2020 2:55 020 2:59 / Unknown [place] / Unknown PM CDT PM CDT Shiva De La Vega MD LAB_1 Performing Organization Address City/[facility]/ZIP Code Phon e Number [address] [address] documented in this encounter Visit Diagnoses Diagnosis Pyelonephritis of right kidney - Primary Pyelonephritis of right kidney Hydronephrosis of right kidney Hydronephrosis Right kidney stone Calculus of kidney Pyelonephritis of right kidney documented in this encounter Admitting Diagnoses Diagnosis Pyelonephritis of right kidney documented in this encounter Administered Medications Inactive Administered Medications - up to 3 most recent administrations Medication Order MAR Action Action Date Dose Rate Site acetaminophen (TYLENOL) tablet Given 02/27/2020 1:45 PM CDT 1,00 0 mg 1,000 mg 1,000 mg, Oral, TID, First dose (after last modification) on Tue02/26/20 at 1400, Until Discontinued Given 02/27/2020 7:56 AM CDT 1,000 mg Given 02/26/2020 8:01 PM CDT 1,000 mg cefTRIAXone (ROCEPHIN) 1 g in dextrose 50 mL Started 11/2019 12:30 PM CDT 1 g IVPB 1 g, Intravenous, Administer over 30 Minutes, Q24H (NON-STND), First dose on Tue02/25/20 at 1200 Started 02/26/2020 11:31 AM CDT 1 g Started 02/25/2020 12:03 PM CDT 1 g hydrOXYzine pamoate (VISTARIL) capsule 2 5 mg Given 02/25/2020 9:28 PM CDT 25 mg 25 mg, Oral, Q6H PRN, Pain, Starting on Tue02/25/20 at 2111, Until Tue02/27/20 at 1816 iopamidol (ISOVUE-370) 76 % injection Given 02/24/2020 8:43 PM CDT 50 mL ONCE PRN, Starting on Tue02/24/20 at 2043, Until Tue02/24/20 at 2105, Intra-op lidocaine (XYLOCAINE) 2 % gel Given 02/24/2020 8:04 PM CDT 10 mL ONCE PRN, Starting on Tue02/24/20 at 2004, Intra-op morphine injectable 4-8 mg Given 02/26/2020 6:29 AM CDT 4 mg 4-8 mg, Intravenous, Q4H PRN, Pain, Severe Pain (pain score 8-10), Starting on Tue02/25/20 at 2109, Until Tue02/27/20 at 1816 Given 02/26/2020 2:21 AM CDT 4 mg Given 02/25/2020 9:28 PM CDT 8 mg NaCl 0.9%-KCl 20 mEq/liter New Bag Started 02/27/2020 12:57 PM 100 mL/hr infusion CDT Intravenous, at 100 mL/hr, CONTINUOUS, Starting on Tue02/24/20 at 1500 New Bag Started 02/27/2020 2:26 AM CDT 100 mL/hr New Bag Started 02/26/2020 4:50 PM CDT 100 mL/hr oxyCODONE (ROXICODONE) immediate release Given 02/27/2020 3:16 P M CDT 10 mg tablet 5-10 mg 5-10 mg, Oral, Q4H PRN, Pain, Severe Pain (pain score 8-10), Starting on Tue02/26/20 at 0817, Until Tue02/27/20 at 1816 Given 02/27/2020 9:49 AM CDT 10 mg Given 02/27/2020 2:28 AM CDT 10 mg polyethylene glycol (MIRALAX) oral powde r 17 g Given 02/27/2020 7:56 AM CDT 17 g 17 g, Oral, DAILY, First dose on Tue02/26/20 at 0800, Until Discontinued, Do not add to pre-thickened juices. Ok to add to liquid thickened with Thicken-Up. Given 02/26/2020 7:57 AM CDT 17 g sertraline (ZOLOFT) tablet 50 mg Given 02/27/2020 7:56 AM CDT 50 mg 50 mg, Oral, DAILY, First dose on Tue02/25/20 at 0800, Until Discontinued Given 02/26/2020 7:57 AM CDT 50 mg Given 02/25/2020 7:59 AM CDT 50 mg sodium chloride 0.9% injection 5 mL Given 02/26/2020 3:30 PM CDT 20 mL 5 mL, See Admin Instructions, DAILY (NS), First dose on Tue02/25/20 at 1900, Until Discontinued, For drainage tube irrigation. documented in this encounter Active and Recently Administered Medications Times are shown in CDT. Scheduled Medication Order 02/25/2020 02/26/2020 02/27/2020 acetaminophen (TYLENOL) tablet 1,000 mg 1357 (Given - Provider: Carie Erazo RN)2001 (Given - Provider: Sun Keith RN) 0756 (Given - Provider: Carie Erazo RN)1345 (Given - Provider: Carie Erazo RN) 1,000 mg, Oral, TID, First dose (after l ast modification) on Tue02/26/20 at 1400 cefTRIAXone (ROCEPHIN) 1 g in dextrose 50 mL IVPB 1203 (Started - Provider: Stefan Montoya RN)1233 (Infused - Provider: Stefan Montoya RN) 1131 (Started - Provider: Carie Erazo RN)1201 (Infused - Provider: Carie Erazo, MICHAEL) 1230 (Started - Provider: Carie garzon RN)1300 (Infused - Provider: Carie Erazo RN) 1 g, Intravenous, Administer over 30 Min utes, Q24H (NON-STND), First dose on Tue02/25/20 at 1200 iopamidol (ISOVUE-300) 61 % injection 100 mL (COMPLETE D) 1050 (Given - Provider: Gracie Mohr - Comment: [id number]) 100 mL, Intravenous, ONCE, Tue02/25/20 at 1130, For 1 dose, Radi ology iopamidol (ISOVUE-300) 61 % injection 50 mL (COMPLETED ) 1845 (Given - Provider: Laura Linda) 50 mL, Intravenous, ONCE, Tue02/25/20 at 1845, For 1 dose ketorolac (TORADOL) injection 15 mg (COMPLETED) 0917 (Given - Provider: Carie Erazo RN)1528 (Given - Provider: Sun Keith, MICHAEL)2137 (Given - Provider: Sun Keith, MICHAEL) 0425 (Given - Provider: Serenity Allison RN) 15 mg, Intravenous, Q6H, First dose on Tue02/26/20 at 0845, For 4 doses polyethylene glycol (MIRALAX) oral powder 17 g 0757 (Given - Provider: Carie Erazo RN) 0756 (Given - Provider: Carie trevizo RN) 17 g, Oral, DAILY, First dose on 11/09 at 0800, Do not add to pre- thickened juices. Ok to add to liquid thickened with Thicken-Up. sertraline (ZOLOFT) tablet 50 mg 0759 (Given - Provider: Julienne Smith RN) 0757 (Given - Provider: Carie Erazo RN) 0756 (Given - Provider: Carie Erazo RN) 50 mg, Oral, DAILY, First dose on Tue02/25/20 at 0800 sodium chloride 0.9% injection 10-60 mL (COMPLETED) 10 50 (Given - Provider: Gracie Mohr) 10-60 mL, Intravenous, ONCE, Tue02/25/20 at 1130, For 1 dose, Ra diology sodium chloride 0.9% injection 5 mL 1900 (Given during Procedure - Provider: Stefan Montoya, MICHAEL) 1530 (Given - Provider: Sun Keith , MICHAEL)1900 (Not Given - Provider: Sun Keith RN - Reason: Order parameters not met - Comment: Drain not needed to be irrigated this shift.) 5 mL, See Admin Instructions, DAILY (NS) , First dose on Tue02/25/20 at 1900, For drainage tube irrigation. Continuous Medication Order 02/25/2020 02/26/2020 02/27/2020 NaCl 0.9%-KCl 20 mEq/liter infusion 0213 (New Bag [place] - Provider: Amee Cabezas RN)1120 (New Bag Started - Provider: Stefan Montoya RN)2050 (New Bag Started - Provider: Stefan Montoya RN) 0623 (New Bag Started - Provider: Amee Cabezas RN)1650 (New Bag Started - Provider: Sun Keith RN) 0225 (Infused - Provider: Serenity Allison, MICHAEL)0226 (New Bag Started - Provider: Serenity Allison, MICHAEL)1257 (New Bag Started - Provider: Carie Erazo RN) Intravenous, at 100 mL/hr, CONTINUOUS, Starting 02/24/20 at 1 500 PRN Medication Order 02/25/2020 02/26/2020 02/27/2020 acetaminophen (TYLENOL) tablet 650 mg 1120 (Given - Pr ovider: Stefan Montoya RN)1647 (Given - Provider: Eri Ybarra RN)2352 (Given - Provider: Jenn Pressley RN) 0801 (Given - Provider: Carie trevizo RN - Comment: per pt request) 650 mg, Oral, Q4H PRN, Pain, Mild pain ( pain scale 1-4), Starting 02/24/20 at 1438 HYDROmorphone (DILAUDID) injection 0.2-0.4 mg (CANCELE D) 0212 (Given - Provider: Amee Cabezas RN)0759 (Given - Provider: Marybel Smith RN)1202 (Given - Provider: Stefan Montoya RN)1900 (Given - Provider: Sharmin Quiñones RN) 0.2-0.4 mg, Intravenous, Q4H PRN, Pain, Severe Pain (pain score 8-10), Starting 02/24/20 at 1452 HYDROmorphone (DILAUDID) injection 0.3-0.6 mg (CANCELE D) 2048 (Given - Provider: Stefan Montoya RN) 0.3-0.6 mg, Intravenous, Q2H PRN, Pain, Severe Pain (pain score 8-10), Starting 02/25/20 at 1945 hydrOXYzine pamoate (VISTARIL) capsule 25 mg 2128 (Giv en - Provider: Stefan Montoya, RN) 25 mg, Oral, Q6H PRN, Pain, Starting 02/25/20 at 2111 morphine injectable 4-8 mg 212 (Given - Provider: Stefan Montoya, RN) 022 (Given - Provider: Jenn Pressley, MICHAEL)0629 (Given - Provider: Jenn Pressley, MICHAEL) 4-8 mg, Intravenous, Q4H PRN, Pain, Alee re Pain (pain score 8-10), Starting 02/25/20 at 2109 oxyCODONE (ROXICODONE) immediate release tablet 5-10 mg 1019 (Given - Provider: Carie Erazo, MICHAEL)1052 (Given - Provider: Carie Erazo RN)1854 (Given - Provider: Sun Keith, MICHAEL) 0228 (Given - Provider: Serenity Allison RN)0949 (Given - Provider: Carie Erazo, MICHAEL)1516 (Given - Provider: Carie Erazo RN) 5-10 mg, Oral, Q4H PRN, Pain, Severe Zenobia n (pain score 8-10), Starting Tue02/26/20 at 0817 No Frequency Medication Order 02/25/2020 02/26/2020 02/27/2020 sodium chloride 0.9% 0.9 % injection - ADS Override Pull (CO MPLETED) 2144 (Given - Provider: Sun Keith, MICHAEL) Starting on Tue02/26/20 at 2130, Until T 02/26/20 at 2145, For 1 dose, Sun Keith: cabinet override documented in this encounter Care Teams Chairman & Chief Executive Officer Relationship Specialty Start Date End Date Shannan Mtathews DO PCP - General Family Practice 10/13/19 1415 [address]A [id number] documented as of this encounter
--- OUTSIDE RECORDS SUMMARY | 2022-04-25 22:32 | XMS_ITS | Encounter Summary ---
:1985 Author Organization [facility] Address [address] [address] Care Team Providers Name Role Phone Shannan Matthews DO Primary Care Provider Reason for Visit Auth/Cert Specialty Diagnoses / Procedures Referred By Contact Refer red To Contact Diagnoses Encounter for female sterilization procedure Procedures LAPAROSCOPIC SALPINGECTOMY Referral ID Status Reason Start Date Expiration Date Visits Requ ested Visits Authorized [id number] 1 1 Encounter Details Date Type Department Care Team Description 11/16/2019 Surgery [facility] [address] [facility] OPIC Mall Bld Ambul Surge ry Serenity Chapa MD SALPINGECTOMY [address] [facility] [id number] [place] [address] [address] [place] [id number] [phone] Social History Tobacco Use Types Packs/Day Years Used Date Smoking Tobacco: Never Smokeless Tobacco: Never Alcohol Use Standard Drinks/Week Comments Not Currently 0 (1 standard drink = 0.6 oz pure alcoho l) 2/week Sex Assigned at Date Recorded Not on file documented as of this encounter Last Filed Vital Signs Vital Sign Reading Time Taken Comments Blood Pressure 112/76 11/16/2019 12:55 PM CDT Pulse 72 11/16/2019 12:55 PM CDT Temperature 36.5 ??C (97.7 ??F) 11/16/2019 12:37 PM CDT Respiratory Rate 20 11/16/2019 12:55 PM CDT Oxygen Saturation 100% 11/16/2019 12:55 PM CDT Inhaled Oxygen Concentration - - Weight 73.1 kg (161 lb 2.5 oz) 11/14/2019 10:47 AM CDT Height 170.2 cm (5' 7) 11/14/2019 10:47 AM CDT Body Mass Index 25.24 11/14/2019 10:47 AM CDT documented in this encounter Medications at Time of Discharge Medication Sig Dispensed Refills Start Date End Date cetirizine (ZYRTEC) 10 Take 10 mg by mouth 0 MG tablet daily. SUMAtriptan (IMITREX) Take 1 Tablet by mouth 9 Tablet 2 50 MG as needed for tabletIndications: Migraine. May repeat Headaches one tablet after 2 hours if needed. Maximum 4 tabs/24 hours and 9 days/month butalbital-acetaminoph Take 1 Tablet by mouth 10 Tablet 0 0 08/22/2019 02/29/2020 en-caffeine (FIORICET) every 4 hours as 50-325-40 MG needed for Pain. tabletIndications: Headaches ibuprofen (MOTRIN) 600 Take 1 Tablet by mouth 40 Tablet 0 0 11/16/2019 02/29/2020 MG tablet every 6 hours as needed for Pain. oxyCODONE-acetaminophe Take 1-2 Tablets by 10 Tablet 0 06/2 10/201901/10/2020 n (PERCOCET) 5-325 MG mouth every 4 hours as tablet needed for Pain. Maximum acetaminophen dose is 4000 mg in 24 hours. propranolol Take 1 Capsule by 90 Capsule 3 08/22/20192020 (INDERALLA) 80 MG 24 mouth daily. hour release capsuleIndications: Headaches, Essential hypertension (HRC) sertraline (ZOLOFT) 50 Take 50 mg by mouth 0 06/0 06/201906/06/2020 MG tablet daily. documented as of this encounter H&P Notes Serenity Waters MD - 11/16/2019 11:25 AM CDT Surgery Update for Preop History and Physical For 11/16/2019 scheduled procedure Update to H&P includes: Patient and/or family denies any health changes since the H&P This patient has been evaluated by me today and has been found to be a suitable candidate for surgery. Serenity Alva MD 11/16/2019 Source Note - Serenity Waters MD - 11/06/2019 4:15 PM CDT [facility] Chief Complaint Patient presents with ??? Preop Exam Tubal ligation History of Present Illness: Estefania Mckeon is a 34 y.o. female here for Preop Exam (Tubal ligation) . She desires permanent sterilization and has opted to have her tubes removed. She understands this is permanent. Current Outpatient Medications Medication Sig ??? sydharecyn-fvfgrzwpaovsz-uecxwdgw (FIORICET) 50-325-40 MG tablet Take 1 Tablet by mouth every 4 hours as needed for Pain. ??? cetirizine (ZYRTEC) 10 MG tablet Take 10 mg by mouth daily. ??? propranolol (INDERALLA) 80 MG 24 hour release capsule Take 1 Capsule by mouth daily. ??? sertraline (ZOLOFT) 50 MG tablet Take 50 mg by mouth daily. ??? SUMAtriptan (IMITREX) 50 [...] unless noted in HPI Physical Examination: BP 115/76 (BP Location: Right Arm, BP Cuff Size: Regular) Pulse 83 Resp 16 Ht 5' 7 (1.702 m) Wt 161 lb 3.2 oz (73.1 kg) LMP 10/10/2019 (Exact Date) SpO2 98% No BMI 25.25 kg/m?? Estimated body mass index is 25.25 kg/m?? as calculated from the following: Height as of this encounter: 5' 7 (1.702 m). Weight as of this encounter: 161 lb 3.2 oz (73.1 kg). Physical Examination: General appearance - alert, well appearing, and in no distress Mental status - alert, oriented to person, place, and time Neck - supple, no significant adenopathy Lymphatics - no palpable lymphadenopathy, no hepatosplenomegaly Chest - clear to auscultation, no wheezes, rales or rhonchi, symmetric air entry Heart - normal rate, regular rhythm, normal S1, S2, no murmurs, rubs, clicks or gallops Abdomen - soft, nontender, nondistended, no masses or organomegaly Skin - normal coloration and turgor, no rashes, no suspicious skin lesions noted Assessment/Plan: 34 y.o. female with Who desires permanent surgical sterilization. Risks and benefits of the procedure were reviewed. Marcus sign the consent the day of surgery. She was informed about the pre operative covid test as well. Her questions were answered and she wishes to proceed. Serenity Alva MD 11/06/2019 4:38 PM documented in this encounter Procedure Notes Serenity Waters MD - 11/16/2019 12:38 PM CDT [facility] OP NOTE Pre op dx: Desires permanent sterilization Post op dx: Desires permanent sterilization, endometriosis Procedure: Laparoscopic bilateral salpingectomy Surgeon: Candido Rivera MD Anes: GET Comp: none EBL: 4cc Findings: Endometriosis seen along left side wall involving the fimbria, also seen along right side wall. No endometriosis seen in cul de sac, or on the bladder. Normal ovaries bilaterally Specimens: Right and left fallopian tubes Indications: 34 yo who has been using condoms for contraception. She declines OCP's, IUD's and other contraception. She desires permanent sterilization. She understands that this is a permanentprocedure. Risks and benefits reviewed as well as the reasoning behind removing the entire tube. Procedure: After informed consent was obtained the patient was taken to the operating room and general anesthesia was administered and found to be adequate. She was placed in low stirrups and prepped and draped in a normal sterile fashion. A time out was performed. Her cervix was grasped in a toothed tenaculum and a cone cannula was placed in the cervix to be used for manipulation. A swanson catheter was placed in the bladder. My gloves were then changed and attention was turned to the abdomen. An infraumbilical incision was made with the scalpel and a 5mm trochar was inserted under direct visualization. Two left lateral 5mm trochars were then inserted under direct visualization and gas was insufflated into the abdominal cavity. The pelvic was examined with the findings as noted above. I identified the right fallopian tube and grasped it at the fimbriated end. I then used the enseal device to sequentially ligate and cut through the mesosalpinx to the level of the uterus. The tube wasthen transected and removed in total. The left tube had an adhesion at the fimbriated end to the side wall. I explored the area confirming there was no bowel involvement. I took down the adhesion usingthe enseal. I then sequentially ligate and cut through the mesosalpinx to the level of the uterus. The tube was then transected and removed in total. I noted a small amount of oozing at the site of theleft side wall adhesions. A small piece of surgicel was placed in the area to aid with hemostasis. Photos were taken and can be seen in the chart. The air was then allowed to escape. The trochars were removed along with the vaginal instruments andthe swanson. The incisions were closed with 4-0 monocryl. Bandaids placed. Sponge, lap and needle counts were correct x 2. The patient was awoken and taken to the recovery room in stable condition. Serenity Alva MD 12:53 PM 11/16/2019 Serenity Waters MD - 11/16/2019 12:33 PM CDT [facility] Brief Operative Progress Note Surgery Date: 11/16/2019 Surgeon(s) and Role: * Serenity Waters MD - Primary Pre-op Diagnosis: * Encounter for female sterilization procedure [Z30.2] Post-op Diagnosis: * Encounter for female sterilization procedure [Z30.2] endometriosis Procedure(s) (LRB): LAPAROSCOPIC SALPINGECTOMY (Bilateral) EBL: 4cc Specimens: ID Type Source Tests Collected by Time Destination 1 : Tissue Fallopian Tube, right SURGICAL PATHOLOGY Serenity Waters MD 11/16/2019 1203 2 : Tissue Fallopian Tube, left SURGICAL PATHOLOGY Serenity Waters MD 11/16/2019 1202 Complications / Findings: Endometriosis causing some filmy adhesions of both tubes to the side wallsbilaterally Serenity Alva MD documented in this encounter Plan of Treatment Not on filedocumented as of this encounter Procedures Procedure Name Priority Date/Time Associated Diagnosis Comme nts SURGICAL PATHOLOGY Routine 11/16/2019 12:02 Encounter for fema le Results for this PM CDT sterilization procedure are in procedure the results section. LAPAROSCOPIC 11/16/2019 11:17 Encounter for female SALPINGECTOMY AM CDT sterilization procedure POCT URINE STAT 11/16/2019 10:57 Res ults for this AM CDT procedure are i n the results section. documented in this encounter Results Surgical Path (11/16/2019 12:02 PM CDT) Component Value Ref Test Analysis Performed At [facility] gist Range Method Time Signature Case Report Surgical Pathology ?Case: [id number] ? 11/19/2019 [facility] Authorizing Provider: ??Serenity Waters, ?? Collected: ? 11/16/2019 12:03 PM ? 11:59 AM LABORATOR Y ? MD ? CDT Ordering Location: ? [facility] [address] ?Received: ?11/16/2019 12:25 PM ? Bld Ambul Surgery ? Pathologist: ? Alex Loznao, ? Specimens: ?? A) - Fallopian Tube, right ? B) - Fall opian Tube, left ? FINAL A. Fallopian Tube, right, salpingectomy: 11/19/2019 [facility] Electronically DIAGNOSIS ?? Complete cross-section of fallopian tube without diagnostic abnormality 11:59 AM LABORATORY signed by CDT Alex Lozano. Fallopian Tube, left, salpingectomy: MD Alhaji on ?? Complete cross-section of fallopian tube without diagnost ic abnormality 11/19/2019 at ?? Focal endometrioisis 11:59 AM Gross A. The specimen is received in formalin and labeled with the patient's name and Fallopian Tube, right.?? The specimen consists of a 4.5 cm in length and 0.7 cm in diameter portion of fallopian tube an [facility] Description d fimbria.?? The serosa is t an-pink, smooth and glistening.?? The cut surfaces are rodriguez-pink with a patent, stellate lumen.?? No masses or lesions are identified.?? Obgyn Specialist sections including the 11:59 AM LABORATORY longitudinally bisected fimb luciano and cross sections of fallopian tube are submitted in one cassette. CDT B. The specimen is received in formalin and labeled with the patient's name and Fallopian Tube, left.?? The specimen consists of a 6.5 cm in length and 0.7 cm in diameter portion of fallopian tube and fimbria.?? The serosa is ta n-pink, smooth and glistening.?? The cut surfaces are rodriguez-pink with a patent, stellate lumen.?? No masses or lesions are identified.?? Obgyn Specialist sections including the l ongitudinally bisected fimbr ia and cross sections of fallopian tube are submitted in one cassette. DJ Clinical Encounter for 11/19/2019 [facility] Information female 11:59 AM LABORATORY sterilization CDT procedure Microscopic Microscopic 11/19/2019 [facility] Description examination is 11:59 AM LABORATORY performed. CDT Embedded 11/19/2019 [facility] Images 11:59 AM LABORATORY CDT Specimen Anatomical Collection Method Collection Time Receive d Time (Source) Location / / Volume Laterality Tissue ENTIRE LEFT 11/16/2019 12:03 11/16/2019 FALLOPIAN TUBE / PM CDT 12:25 PM CD T Unknown Tissue specimen ENTIRE LEFT 11/16/2019 12:02 11/16/19 20 (specimen) FALLOPIAN TUBE / PM CDT 12:25 PM CD T Unknown Serenity Waters MD LAB PATHOLOGY Performing Organization Address City/State/ZIP Code Phon e Number [facility] [address] [place] [address] POCT urine (11/16/2019 10:57 AM CDT) [facility] Method Time Signature Urine Negative POCT Test - POC Control Line Yes POCT Present, Clear Background - Internal control Cartridge Lot# [id number] POCT Specimen (Source) Anatomical Collection Method Collection Time Re ceived Time Location / / Volume Laterality Urine 11/16/2019 10:57 AM CDT Authorizing Provider Result Leanne Waters MD ET POINT OF CARE TEST ENTER/ EDIT ORDERABLES Performing Organization Address City/State/ZIP Code Phon e Number POCT documented in this encounter Visit Diagnoses Diagnosis Encounter for female sterilization proce dure - Primary Sterilization Encounter for female sterilization proce dure Sterilization Encounter for female sterilization proce dure Sterilization documented in this encounter Admitting Diagnoses Diagnosis Encounter for female sterilization proce dure Sterilization documented in this encounter Administered Medications Inactive Administered Medications - up to 3 most recent administrations Medication Order MAR Action Action Date Dose Rate Site bupivacaine-epinephrine PF Given 11/16/2019 12:23 PM CDT 6 mL (SENSORCAINE) 0.25% -1:[id number] injection ONCE PRN, Starting on Tue11/16/19 at 1223, Until Tue11/16/19 at 1555, Intra-op ketorolac (TORADOL) injection 30 mg Given 11/16/2019 1:05 PM CDT 30 mg 30 mg, Intravenous, Q6H (NON-STND), First dose on Tue11/16/19 at 1115, Last dose on Tue11/16/19 at 1715, For 2 doses, Pre-op lactated ringers infusion 25 mL/hr, Intravenous, CONTINUOUS, Start ing on Tue11/16/19 at 1130, Administer on all preop surgery patients, ages 12 and older, unless specified differently in the Protocol for Preop Initiation of IV fluids Order Set., Pre-op lactated ringers infusion Started 11/16/2019 10:56 AM CDT 25 mL/hr 25 mL/hr 25 mL/hr, Intravenous, CONTINUOUS, Starting on Tue11/16/19 at 1130, Administer on all preop surgery patients, ages 12 and older, unless specified differently in the Protocol for Preop Initiation of IV fluids Order Set., Pre-op lidocaine PF (XYLOCAINE) 1 % injection 0 .1-0.3 mL 0.1-0.3 mL, Subcutaneous, PRN, Other, for additional I V starts, Starting on Tue11/16/19 at 1101, Pre-op ondansetron (ZOFRAN) injection 4 mg 4 mg, Intravenous, ONCE PRN, Nausea, Starting on Tue at 1055, Until Tue11/16/19 at 1555, For 1 dose, Give in pre-op holding if needed., Pre-op oxidized cellulose (SURGICEL Given 11/16/2019 12:21 PM CDT 1 Eac h Wound Site HEMOSTAT) hemostat pad ONCE PRN, Starting on Tue11/16/19 at 1221, Intra-op oxyCODONE-acetaminophen (PERCOCET) 5-325 MG Given 10/22 1:35 PM CDT 1 Tablet per tablet 1-2 Tablet 1-2 Tablet, Oral, Q4H PRN, Other, Moderate Pain (pain score 5-7), Starting on Tue11/16/19 at 1333, Until Tue11/16/19 at 1555, Post-op documented in this encounter Active and Recently Administered Medications Times are shown in CDT. Scheduled Medication Order 11/14/2019 11/15/2019 11/16/2019 ketorolac (TORADOL) injection 30 mg 1305 (Given - Provider: Linda Francis RN - Comment: Pt was not given Toradol in Pre op.) 30 mg, Intravenous, Q6H (NON-STND), Firs t dose on Tue11/16/19 at 1115, For 2 doses, Pre-op lidocaine PF (XYLOCAINE) 1 % injection 0.1-0.3 mL 1130 (Due) 0.1-0.3 mL, Subcutaneous, ONCE, 11/15 at 1130, For 1 dose, Lidocaine to be used for IV starts unless patient refuses., Pre-op lidocaine-epinephrine 1 %-1:[id number] injection 30 mL 111 (Due) 30 mL, Injection, ONCE, Tue11/16/19 at 1 115, For 1 dose, To be given at beginning or end of case and before the patient leaves OR to PACU., Pre-op NO pre-op antibiotics needed 111 5 (Noted - Provider: Carie Butt RN) ONCE, Tue11/16/19 at 1115, For 1 dose, Pre-op scopolamine (TRANSDERM-SCOP) 1.0mg/3 days 1 Patch 5 (Due) 1 Patch, Transdermal, ONCE, Tue11/16/19 at 1115, For 1 dose, Keep in place for 24 hours following surgery., Pre-op Continuous Medication Order 11/14/2019 11/15/2019 11/16/2019 lactated ringers infusion 1130 ( Not Given - Provider: Carie Butt RN - Reason: Other (Enter Reason in Comment Area) - Comment: duplicate order) 25 mL/hr, Intravenous, at 25 mL/hr, CONT INUOUS, Starting Tue11/16/19 at 1130, Administer on all preop surgery patients, ages 12 and older, unless specified differently in the Protocol for Preop Initiation of IV fluids Order Set., Pre-op lactated ringers infusion 1056 ( Started - Provider: Carie Butt RN)1237 (Anesthesia Fluid - Provider: Lavonne Worthy APRN, EXTRUSION PROCESS OPERATOR) 25 mL/hr, Intravenous, at 25 mL/hr, CONT INUOUS, Starting Tue11/16/19 at 1130, Administer on all preop surgery patients, ages 12 and older, unless specified differently in the Protocol for Preop Initiation of IV fluids Order Set., Pre-op PRN Medication Order 11/14/2019 11/15/2019 11/16/2019 bupivacaine-epinephrine PF (SENSORCAINE) 0.25% -1:[id number] injecti on 1223 (Given - Provider: Serenity Waters MD) ONCE PRN, Starting Tue11/16/19 at 1223, Intra-op ketorolac (TORADOL) injection 15 mg 15 mg, Intravenous, Q6H PRN, Other, Mild Pain (pain score 1-4), Starting Tue11/16/19 at 1333, For 3 days, Post-op lidocaine PF (XYLOCAINE) 1 % injection 0.1-0.3 mL 0.1-0.3 mL, Subcutaneous, PRN, Other, fo r additional IV starts, Starting Tue11/16/19 at 1101, Pre-op ondansetron (ZOFRAN) injection 4 mg 4 mg, Intravenous, ONCE PRN, Nausea, Sta rting Tue11/16/19 at 1055, For 1 dose, Give in pre-op holding if needed., Pre-op oxidized cellulose (SURGICEL HEMOSTAT) hemostat pad 1221 (Given - Provider: Serenity Waters MD) ONCE PRN, Starting Tue11/16/19 at 1221, Intra-op oxyCODONE-acetaminophen (PERCOCET) 5-325 MG per tablet 1-2 Table t 1335 (Given - Provider: Carie Butt RN) 1-2 Tablet, Oral, Q4H PRN, Other, Modera te Pain (pain score 5-7), Starting Tue11/16/19 at 1333, Post-op documented in this encounter Care Teams Job Developer Relationship Specialty Start Date End Date Shannan Matthews DO PCP - General Family Practice 10/13/19 [address] [id number] documented as of this encounter
--- OUTSIDE RECORDS SUMMARY | 2022-04-25 22:32 | XMS_ITS | Encounter Summary ---
:1985 Author Organization [facility] Address [address] [place] [address] Care Team Providers Name Role Phone Shannan Matthews DO Primary Care Provider Encounter Details Date Type Department Care Team Description 11/16/2019 Orders Only Initial [facility] CLARICE COLLAZO MD [place], [place] [address] Interface provider [phone] [place] [address] Social History Tobacco Use Types Packs/Day Years [...] Priority Date/Time Associated Diagnosis Comme nts EKG 11/16/2019 Results for thi s procedure are in the resu lts section. documented in this encounter Results EKG (11/16/2019) Narrative This result has an attachment that is no t available. Interface Provider EKG documented in this encounter Visit Diagnoses Not on filedocumented in this encounter Care Teams Riveting Machine Operator Relationship Specialty Start Date End Date Shannan Matthews DO PCP - General Family Practice 10/13/19 [address] [id number] documented as of this encounter
--- OUTSIDE RECORDS SUMMARY | 2022-04-25 22:32 | XMS_ITS | Encounter Summary ---
:1985 Author Organization [employer] Address [address] [place] [address] Care Team Providers Name Role Phone Shannan Matthews DO Primary Care Provider Reason for Visit Reason Comments Follow-up Encounter Details Date Type Department Care Team Description 12/25/2019 Office Visit [facility] [address] Left low er quadrant pain (Primary Dx); Obstetrics/Gynecolog y MMD S/P laparoscopy; [address] History of female sterilizat ion; RANGEL Lin [address] Pelvic adhesions; [phone] RANGEL [address] [address] Abnormal uterine bleeding (AUB); [phone] Adverse effect of oral contraceptive, subsequent encounter; (Work) Chronic migraine without aura without st atus migrainosus, not intractable Social History Tobacco Use Types Packs/Day Years Used Date Smoking Tobacco: Never Smokeless Tobacco: Never Alcohol Use Standard Drinks/Week Comments Yes 0 (1 standard drink = 0.6 oz pure alcoho l) 2/week Sex Assigned at Date Recorded Not on file documented as of this encounter Last Filed Vital Signs Vital Sign Reading Time Taken Comments Blood Pressure 110/74 12/25/2019 3:33 PM CDT Pulse - - Temperature - - Respiratory Rate - - Oxygen Saturation - - Inhaled Oxygen Concentration - - Weight 72.9 kg (160 lb 11.2 oz) 12/25/2019 3:33 PM CDT Height 171.5 cm (5' 7.52) 12/25/2019 3:33 PM CDT Body Mass Index 24.78 12/25/2019 3:33 PM CDT documented in this encounter Patient Instructions Patient InstructionsIndia Greene MD - 12/25/2019 3:15 PM CDT Images from the original note were not included. Endometriosis: Care Instructions Your Care Instructions Cells that are like the cells that line the inside of your womb (uterus) sometimes grow on the outside of the uterus. This is called endometriosis. These clumps of cells can cause pain and problems with your periods. They can become inflamed and may bleed. Scar tissue that forms over time can make it difficult to get . Medicines and sometimes surgery can relieve pain and help women who want to get . Follow-up care is a chamorro part of your treatment and safety. Be sure to make and go to all appointments, and call your doctor if you are having problems. It's also a good idea to know your test results and keep a list of the medicines you take. How can you care for yourself at home? ?? Take your medicines exactly as prescribed. Call your doctor if you think you are having a problemwith your medicine. ?? Take pain medicines exactly as directed. ? If the doctor gave you a prescription medicine for pain, take it as prescribed. ? If you are not taking a prescription pain medicine, ask your doctor if you can take an xcer-kgn-ipanzqp medicine. ?? Apply heat, such as a hot water bottle or a heating pad set on low, to your lower belly. Or take a warm bath. Heat may relieve pain. ?? Lie down and put a pillow under your knees to raise your legs. This will relieve pressure on yourback. When should you call for help? Call your doctor now or seek immediate medical care if: ? You have severe vaginal bleeding. ? You have new or worse pain in your belly or pelvis. ??Watch closely for changes in your health, and be sure to contact your doctor if: ? You have unusual vaginal bleeding. ? You do not get better as expected. Where can you learn more? 1. Go to https://MakeMyTrip.com.Accera/RedKixrary or Safend/onlinelibrary. 2. Enter I738 in the search box. Current as of: March 29, 2019?Content Version: 12.4 ?? [employer]. Care instructions adapted under license by your healthcare professional. If you have questions abouta medical condition or this instruction, always ask your healthcare professional. [employer] disclaims any warranty or liability for your use of this information. documented in this encounter Progress Notes India Greene MD - 12/25/2019 3:15 PM CDT Gynecology Clinic Visit Note S: Patient presents today for a follow-up from recent emergency department visit. Patient was seen at [facility] on 12/17/2019 with concerns for abdominal pain and nausea. At that time, patient reported left lower quadrant pain accompanied by significant nausea. History was notably significant for laparoscopic salpingectomy for weeks prior completed for the purposes of sterilization. Atthat time, patient also reported a history of recurrent ovarian cysts and concerns that her symptomsfelt similar to when she had cysts burst in the past. Evaluation was completed including a pelvic ultrasound which was noted to be without acute pathology. Examination was also noted to be benign. Given this, patient was felt to be stable for discharge and was recommended to follow up with her [employer] provider within a few days. Patient called to schedule a postoperative appointment with her surgeon, however, it was noted that there were no openings for another several weeks. Secondary to this, patient scheduled appointment with me today. Patient had surgery at [facility] with Dr. Diallo. Operative report is briefly reviewed.Procedure appears to have been uncomplicated. There is notation of possible endometriosis. I do not see accompanying pathology. It sounds like this information was relayed to the patient's at the time of the postoperative phone call but given that patient has not had a postoperative visit yet she has not had the opportunity to discuss this with her surgeon. The patient reports that her told her that it was mentioned something about the ???extent?? of her disease. Patient is not surewhat this meant. Patient did not previously have a diagnosis of endometriosis. Patient reports that she continues to have intermittent left lower quadrant pain. This pain is not severe but is bothersome to her especially given that she is not sure what could be causing it. She also reports that her periods have been somewhat irregular since having had surgery. She notes that shewas due for a cycle around the time that she had surgery. She also reports that she would have been due for another cycle last week. However, she has been having irregular spotting for approximately the last 2 weeks. Prior to this, she did not have issues with her menstrual cycles. She was previously on oral contraceptive pills for control of recurrent ovarian cysts, however. However, patient had a lot of issues with migraines while taking oral contraceptive pills which is why she ultimately opted to undergo sterilization. She also did not tolerate Nexplanon secondary to heavy bleeding. Given this,she is hesitant regarding hormones in general. O: BP 110/74 (BP Location: Right Arm, BP Cuff Size: Regular) Ht 5' 7.52 (1.715 m) Wt 160 lb 11.2 oz (72.9 kg) LMP 12/11/2019 (Approximate) No BMI 24.78 kg/m?? General: Alert, in no acute distress Other exam deferred as patient had normal exam documented in emergency department. Documentation, lab studies, and ultrasound from recent emergency department visit reviewed. Operative report from recent surgery also reviewed. A: 34-year-old P2022 who presents today for emergency department follow-up after being seen secondary to left lower quadrant pain in the setting of recent laparoscopic salpingectomy for sterilization. Patient also has concerns regarding abnormalities in her periods since surgery. Patient has not had postop visit with her surgeon yet as there has been no availability in her schedule. Emergency department evaluation was negative for any acute pathology and no abnormalities were demonstrated on ultrasound. Based on review of operative report, it was noted that there was probable endometriosis visualized. Patient also reports that her was told this at the time of surgery. Patient has not had the upper to discuss this with her surgeon given she has not seen her for postop visit yet. Based on operative report, her pain is in the location of where the suspected endometriosis was located. There was noted to be some additional bleeding in this area with placement of a hemostatic agent. It is unclear if this could potentially be related to her pain or not though seems unlikely given help for postop she is. Pain could also be related to endometriosis though based on chart review, it does not sound like patient was having pain prior to surgery or previously aware of her diagnosis of endometriosis. Today, I did discuss endometriosis in some amount of detail with the patient. I reviewed that it is a chronic condition that often causes pain both during the menstrual cycle and sometimes inside of the cycle depending on the extent of disease. Discussed that I cannot comment on the extent of her dis ease as I was not present during her surgery and it is not specifically commented on in her operative report. However, disease extent does not correlate with amount of pain in endometriosis anyway. Reviewed that endometriosis patients are typically recommended to undergo long-term suppressive therapy for management of symptoms. This typically involves hormonal contraception. However, patient has traditionally not done well with this medication. Briefly discussed alternative options including GnRH agonist/antagonists. Ultimately, these medications are primarily limited to Depo Lupron which cannot beused for extended periods of time and elagolix which is new, relatively expensive, and may not be approved by insurance. P: Recommend patient considered her whether not she would like to try hormonal contraception for suppression versus look into other options discussed today in the setting of probable endometriosis. In the meantime, I recommend she follow up for a postoperative visit with her surgeon to discuss surgical findings and to confirm that there was nothing at the time of surgery that would explain the pain she is currently having. Reassurance given to patient regarding menstrual cycles and that they can become irregular followingsurgery. Discussed that they usually self regulate within a couple of months. If this is not the case, she should return for further evaluation. 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
--- OUTSIDE RECORDS SUMMARY | 2022-04-25 22:32 | XMS_ITS | Encounter Summary ---
:1985 Author Organization [facility] Address [address] [address] Care Team Providers Name Role Phone CassieShannan Primary Care Provider Reason for Referral Procedure/Equipment (Routine) - Incomplete Specialty Diagnoses / Procedures Referred By Contact Refer red To Contact Diagnoses Pyelonephritis of right kidney Valentina Lockett MD Procedures Case Request OR - Urology Surgery: URETERAL STENT PLACEMENT [address] [place] [address] Referral ID Status Reason Start Date Expiration Date Visits V isits Requested Authorized [id number] Incomplete 02/24/2020 05/25/2021 1 1 Encounter Details Date Type Department Care Team Description 02/24/2020 Notes/Orders Valentina Huizar MD Hydronephrosis of right kidney (Primary Dx); [facility] - [address] lonephritis of right kidney; [address] Right kidney stone [address] [facility] [place] [address] [phone] Social History Tobacco Use Types Packs/Day Years [...] Hydronephrosis of right kidney - Primary Hydronephrosis Pyelonephritis of right kidney Right kidney stone Calculus of kidney documented in this encounter Care Teams Construction Mgr Relationship Specialty Start Date End Date Shannan Matthews DO PCP - General Family Practice 10/13/19 [address] [id number] documented as of this encounter
--- OUTSIDE RECORDS SUMMARY | 2022-04-25 22:32 | XMS_ITS | Encounter Summary ---
:1985 Author Organization [facility] Address [address] [address] Care Team Providers Name Role Phone Shannan Matthews Primary Care Provider Reason for Visit Reason Comments Post-Op Check s/p bilateral salp on 2019 Encounter Details Date Type Department Care Team Description 01/10/2020 Office Visit [facility] Candido Rivera, H/O tuba l ligation (Primary Dx); Services-MAIL MESSENGER Serenity Chapa MD Endometriosis [address] [place] [address], [address] [address] [phone] Social History Tobacco Use Types Packs/Day Years Used Date Smoking Tobacco: Never Smokeless Tobacco: Never Alcohol Use Standard Drinks/Week Comments Yes 0 (1 standard drink = 0.6 oz pure alcoho l) 2/week Sex Assigned at Date Recorded Not on file documented as of this encounter Last Filed Vital Signs Vital Sign Reading Time Taken Comments Blood Pressure 113/77 01/10/2020 1:45 PM CDT Pulse 81 01/10/2020 1:45 PM CDT Temperature - - Respiratory Rate - - Oxygen Saturation - - Inhaled Oxygen Concentration - - Weight 73.1 kg (161 lb 3.2 oz) 01/10/2020 1:45 PM CDT Height - - Body Mass Index 24.86 12/25/2019 3:33 PM CDT documented in this encounter Progress Notes Serenity Waters MD - 01/10/2020 1:45 PM CDT SUBJECTIVE: CC: Here for post-op check-up. HPI: Procedure: bilateral salpingectomy, laparoscopic Date of procedure: 11/16/2019 Post-op course: uncomplicated Pathology: Benign with endometriosis OBJECTIVE: Vital Signs: Vitals: 01/10/20 1345 BP: 113/77 Pulse: 81 EXAM: Abdomen: Abdomen soft, non-tender without masses or organomegaly Intact, No erythema, No drainage ASSESSMENT: Post op laparoscopic bilateral salpingectomy, Endometriosis PLAN: We discussed endometriosis as a new diagnosis. Discussed treatment options including OCP's and Mirena IUD. She is considering. follow-up appointment: prfior Alva MD documented in this encounter Nursing Notes Jenae Ybarra LPN - 01/10/2020 1:45 PM CDT Patient was offered suppression crew leader for physical exam portion of visit by this commercial lines underwriter. Patient DECLINED. Jenae Ybarra LPN 1:46 PM 01/10/2020 documented in this encounter Plan of Treatment Not on filedocumented as of this encounter Visit Diagnoses Diagnosis H/O tubal ligation - Primary Tubal ligation status Endometriosis Endometriosis, site unspecified documented in this encounter Care Teams Installment Agent Relationship Specialty Start Date End Date Shannan Matthews DO PCP - General Family Practice 10/13/19 [address] [id number] documented as of this encounter
--- OUTSIDE RECORDS SUMMARY | 2022-04-25 22:32 | XMS_ITS | Encounter Summary ---
:1985 Author Organization [employer] Address [address], [place] [address] Care Team Providers Name Role Phone CassieShannan Jose VALDIVIA Primary Care Provider Reason for Visit Reason Comments Appointment Encounter Details Date Type Department Care Team Description 12/17/2019 Telephone [facility] Serenity Waters, Appointment Services-COMMUNITY SUPPORT SPECIALIST [address] [place] [address], [address] [place] [address] [address] [place] [address] [place] [address] [phone] Social History Tobacco Use Types Packs/Day Years Used Date Smoking Tobacco: Never Smokeless Tobacco: Never Alcohol Use Standard Drinks/Week Comments Not Currently 0 (1 standard drink = 0.6 oz pure alcoho l) 2/week Sex Assigned at Date Recorded Not on file documented as of this encounter Nursing Notes Breann Shelton RN - 12/17/2019 9:55 AM CDT Called patient and schedule visit. Future Appointments Date Time Provider Department Center 01/10/2020 1:45 PM Serenity Waters MD [facility] Serenity Waters MD - 12/17/2019 9:39 AM CDT Ironically she [facility] I don't operate at [place]. In any case, she shouldhave a post op scheduled 4 weeks after her procedure. If she doesn't, let's set her up for one. Thanks! Serenity Alva MD 9:40 AM 12/17/2019 Lavonne Kwan, RN - 12/17/2019 8:35 AM CDT Bilateral tubal 11/15. Provider mentioned to after surgery would discuss possible endometriosis finding at post op. Unsure when she was supposed to schedule. Unable to access notes from [facility]. Please advise documented in this encounter Plan of Treatment Not on filedocumented as of this encounter Visit Diagnoses Not on filedocumented in this encounter Care Teams Air Quality Chemist Relationship Specialty Start Date End Date Shannan Matthews DO PCP - General Family Practice 10/13/19 [address] [id number] documented as of this encounter
--- OUTSIDE RECORDS SUMMARY | 2022-04-25 22:32 | XMS_ITS | Encounter Summary ---
:1985 Author Organization [facility] Address [address], [place] [address] Care Team Providers Name Role Phone Shannan Matthews DO Primary Care Provider Encounter Details Date Type Department Care Team Description 02/28/2020 Partner ED Initial Department Provider, [facility] [address] Dickinson MD 02/24/2020 [place], [place] [address] Interface [phone] [place] [address] Social History Tobacco Use Types Packs/Day Years [...] on filedocumented in this encounter Care Teams Revenue Liaison Relationship Specialty Start Date End Date Shannan Matthews DO PCP - General Family Practice 10/13/19 [address] [id number] documented as of this encounter
--- OUTSIDE RECORDS SUMMARY | 2022-04-25 22:32 | XMS_ITS | Encounter Summary ---
:1985 Author Organization [facility] Address [address], [place] [address] Care Team Providers Name Role Phone Cassie Shannan Jose VALDIVIA Primary Care Provider Reason for Visit Reason Comments Preop Exam Tubal ligation Encounter Details Date Type Department Care Team Description 11/06/2019 Pre-Op Visit [facility] Filipe Waters [facility] Serenity Chapa MD sterilization (Primary [id number] [place] [address] [address], [address] [place] [address] [phone] Social History Tobacco Use Types Packs/Day Years Used Date Smoking Tobacco: Never Smokeless Tobacco: Never Alcohol Use Standard Drinks/Week Comments Not Currently 0 (1 standard drink = 0.6 oz pure alcoho l) 2/week Sex Assigned at Date Recorded Not on file documented as of this encounter Last Filed Vital Signs Vital Sign Reading Time Taken Comments Blood Pressure 115/76 11/06/2019 4:19 PM CDT Pulse 83 11/06/2019 4:19 PM CDT Temperature - - Respiratory Rate 16 11/06/2019 4:19 PM CDT Oxygen Saturation 98% 11/06/2019 4:19 PM CDT Inhaled Oxygen Concentration - - Weight 73.1 kg (161 lb 3.2 oz) 11/06/2019 4:19 PM CDT Height 170.2 cm (5' 7) 11/06/2019 4:19 PM CDT Body Mass Index 25.25 11/06/2019 4:19 PM CDT documented in this encounter Nursing Notes Jenae Ybarra LPN - 11/06/2019 4:15 PM CDT Patient was offered production operations manager for physical exam portion of visit by this insurance underwriter. Patient DECLINED. Jenae Ybarra LPN 4:22 PM 11/06/2019 documented in this encounter OR Notes H&P - Serenity Waters MD - 11/06/2019 4:15 PM CDT [facility] Chief Complaint Patient presents with ??? Preop Exam Tubal ligation History of Present Illness: Estefania Mckeon is a 34 y.o. female here for Preop Exam (Tubal ligation) . She desires permanent sterilization and has opted to have her tubes removed. She understands this is permanent. Current Outpatient Medications Medication Sig ??? ieuigoytsz-eycqvlseauwpr-qpakzmiy (FIORICET) 50-325-40 MG tablet Take 1 Tablet [...] 11/06/2019 4:38 PM documented in this encounter Plan of Treatment Not on filedocumented as of this encounter Visit Diagnoses Diagnosis Encounter for sterilization - Primary Sterilization documented in this encounter Care Teams Methods Examiner Relationship Specialty Start Date End Date Shannan Matthews DO PCP - General Family Practice 10/13/19 [facility] [address] documented as of this encounter
--- OUTSIDE RECORDS SUMMARY | 2022-04-25 22:32 | XMS_ITS | Encounter Summary ---
:1985 Author Organization [facility] Address [address] [facility] [place] [place] [address] Care Team Providers Name Role Phone Shannan Matthews DO Primary Care Provider Encounter Details Date Type Department Care Team Description 02/24/2020 Orders Only Initial Department Provider, Alok, [facility] CLARICE COLLAZO MD [place], [place] [address] Interface provider [phone] [place] [address] Social History Tobacco Use Types Packs/Day Years [...] Priority Date/Time Associated Diagnosis Comme nts EKG 02/24/2020 Results for thi s procedure are in the resu lts section. documented in this encounter Results EKG (02/24/2020) Narrative This result has an attachment that is no t available. Interface Provider EKG documented in this encounter Visit Diagnoses Not on filedocumented in this encounter Care Teams Master Scheduler Relationship Specialty Start Date End Date Shannan Matthews DO PCP - General Family Practice 10/13/19 [address] [address] documented as of this encounter
--- OUTSIDE RECORDS SUMMARY | 2022-04-25 22:32 | XMS_ITS | Encounter Summary ---
:1985 [facility] [address] [address] Care Team Providers Name Role Phone CassieShannan Primary Care Provider Reason for Referral Procedure/Equipment (Routine) - Incomplete Specialty Diagnoses / Procedures Referred By Contact Refer red To Contact Procedures Valentina Lockett MD IR Nephrostomy Tube Placement [address] [place] [address] Referral ID Status Reason Start Date Expiration Date Visits V isits Requested Authorized [id number] Incomplete 02/25/2020 05/26/2021 1 1 Procedure/Equipment (Routine) - Incomplete Specialty Diagnoses / Procedures Referred By Contact Refer red To Contact Procedures Valentina Lockett MD CT Abd Pelvis W/WO IV Cont [address] IVP Hematuria [place], [place] CT Abd Pelvis W/WO [place] Cont [phone] Referral ID Status Reason Start Date Expiration Date Visits V isits Requested Authorized [id number] Incomplete 02/24/2020 05/25/2021 1 1 Procedure/Equipment (Routine) - Incomplete Specialty Diagnoses / Procedures Referred By Contact Refer red To Contact Procedures Valentina Lockett MD [place] Retrograde Pyelogram [address] [place] [address] Referral ID Status Reason Start Date Expiration Date Visits V isits Requested Authorized [id number] Incomplete 02/24/2020 05/25/2021 1 1 Procedure/Equipment (Routine) - Incomplete Specialty Diagnoses / Procedures Referred By Contact Refer red To Contact Procedures Provider, Foreign Images Foreign Image(S) CT [address] Abdomen/[place] [address] Referral ID Status Reason Start Date Expiration Date Visits V isits Requested Authorized [id number] Incomplete 02/24/2020 05/25/2021 1 1 Reason for Visit Auth/Cert Specialty Diagnoses / Procedures Referred By Contact Refer red To Contact Diagnoses Renal obstruction Referral ID Status Reason Start Date Expiration Date Visits Requ ested Visits Authorized [id number] 1 1 Encounter Details Date Type Department Care Team Description 02/24/2020 - Hospital [facility] Lubna Izquierdo, [facility] [address] [place], [place] [phone] Pyelonephritis of right kidney; 02/27/2020 Encounter Surgery/Pediatrics Shiva De La Vega MD [address] [place], [place] [address] Hydronephrosis of right kidney; [address], Vicky Koch MD [address] [place], [place] [phone] Right kidney [place] [facility] [address] Social History Tobacco Use Types Packs/Day Years Used Date Smoking Tobacco: Never Smokeless Tobacco: Never Alcohol Use Standard Drinks/Week Comments Yes 0 (1 standard drink = 0.6 oz pure alcoho l) 2/week Sex Assigned at Date Recorded Not on file documented as of this encounter Last Filed Vital Signs Vital Sign Reading Time Taken Comments Blood Pressure 99/67 02/27/2020 1:27 PM CDT Pulse 91 02/27/2020 1:27 PM CDT Temperature 36.7 ??C (98 ??F) 02/27/2020 1:27 PM CDT Respiratory Rate 18 02/27/2020 1:27 PM CDT Oxygen Saturation 96% 02/27/2020 1:27 PM CDT Inhaled Oxygen Concentration - - [...] Role: * Valentina Lockett MD - Primary ?? Pre-op Diagnosis: [...] Hospital Course: 34 yo F admitted from [facility] for Staghorn ureterolithiasis of the Right [...] - urine culture was not sent at [facility]. cultures sent from OR 02/24 & results [...] these medications which have NOT CHANGED Details ogmedzkjis-zmfpxijepdrug-jlgeemmn (FIORICET) 50-325-40 MG tablet Take 1 Tablet [...] Disp-90 Capsule, R-3, DAILY Starting Tue08/22/2019, Until Chelly 08/21/2020, For 365 days, Oral, Normal sertraline (ZOLOFT) [...] procedures on file. Shannan Matthews DO [address] [facility] [place] [address] APPOINTMENT SCHEDULED for FEBRUARY 28 AT 10AM. IF NEEDED RESCHEDULE APPOINTMENT. Valentina Lockett MD [address] [facility] [id number] [phone] In 10 days APPOINTMENT SCHEDULED for MARCH 07 AT 9:30AM. IF NEEDED RESCHEDULE APPOINTMENT. Discharge Management Time : 35 minutes Vicky Clark MD [phone] documented in this encounter Discharge Instructions Discharge Instr - Wound Vicky Nova RN - 02/26/2020 7:29 AM CDT Drainage [...] during the day, call Interventional Radiology at [phone]. ?? If the tube falls out during [...] Weekdays , 7 a.m. to 5 p.m. [phone] A clinician or nurse will return your call. [facility] Weekdays, 5 p.m. to 7 a.m. Weekends, 24 hours [phone] Identify yourself as a patient and ask the molding line operator to speak to the on-call interventional [...] Take 2 Tablets by 100 Tablet 11 02/25/202001/2020 (TYLENOL) 325 MG mouth every 4 hours [...] Take 1-2 Tablets by 20 Tablet 0 09/201902/29/2020 5 MG immediate release mouth every [...] including possible side effects. Prescriptions filled by [facility] pharmacy. Belongings checklist reviewed with patient and belongings sent. Supplies sent dressing supplies andflushes for drains. Care plan issues addressed and education record updated. R: Patient verbalizes understanding and teaches back discharge instructions. Patient discharged by: wheelchair with staff. Carie Arredondo RN 3:54 PM 02/27/2020 Vicky Clark MD - 02/27/2020 3:16 PM CDT [address] [address] PH: [phone] RE: Estefania Mckeon : 1985 02/27/2020 To whom it may concern: This is to confirm that Estefania Mckeon has been treated as an in-patient at [facility] from 02/24/2020 to 02/27/2020. Estefania Mckeon is advised rest until 03/07/2020 Should you have any questions, please contact me at [phone] Sincerely Vicky Clark MD ([facility]) May Mendez RN - 02/27/2020 11:48 [...] monitor. Carie Arredondo RN 2:05 PM 02/26/2020 icky Ferguson MD - 02/26/2020 12:22 PM CDT HOSPITALIST [...] >60 ASSESSMENT/PLAN: 34 yo F admitted from [facility] for Staghorn ureterolithiasis of the R with [...] - urine culture was not sent at [facility] - cultures sent from OR 02/24. BCx NTD - significant pain overnight after PCN placed - start scheduled tylenol, toradol, prn oxycodone - 14 days abx course per urology recommendations DISPO : home today if pain controlled with PO meds Updated patient. All Qs answered. Vicky Clark MD [facility] Hospitalist [phone] Gisela Vilchis MD - 02/25/2020 9:09 PM [...] >60 ASSESSMENT/PLAN: 34 yo F admitted from [facility] for Staghorn ureterolithiasis of the R with [...] - urine culture was not sent at [facility] - cultures will be sent from OR today. BCx NTD DISPO : home today if stable post procedure - [facility] cipro [facility] Updated patient. All Qs answered. Vicky Clark MD [facility] / [facility] Hospitalist [phone] Amee Cabezas RN - 02/24/2020 9:32 PM CDT POST-OP O: Patient will have a stable post-op period. D: Pt arrived to room 413/413 -01, at 2110 (time). Patient is alert and oriented. Initial [...] chart, signed: No R: Awaiting transport. Ivy Cox RN - 02/24/2020 2:04 PM CDT ADMIT O: Admitted patient via cart from [facility] to bed # 413/413 -01. D: [...] Report Nonbillable service Name//MRN: Estefania Mckeon 1985 [id number] Referring Facility: [facility] Referring MD: Navneet Sauceda Symptoms/Diagnosis: Staghorn ureterolithiasis of the R with hydronephrosis with associated sepsis WBC 14.8 Needs: IV antibiotics, Urology consult, IR consult for percutaneous nephrostomy Bed Level Requested: med/surg Please page the hospital triage pager upon pt's arrival. Glenn Lama MD 02/24/2020, 1:28 PM documented in this encounter Procedure Notes Valentina Lockett MD - 02/24/2020 8:39 PM CDT [facility] Brief Operative Progress Note Surgery Date: 02/24/2020 [...] 12:00 PM CDT NAME: ESTEFANIA MCKEON MR#: [id number] CSN: [id number] AUTHENTICATING CLINICIAN: Valentina Lockett MD CONFIRM #: [id number] LOC: 1 OPERATIVE REPORT DATE OF OPERATION: [...] into the renal pelvis and placed a 6-[place]izen [place] multi-length double-J stent under fluoroscopic guidance. I [...] duplicated collecting system. GZ:MEDQ C: CONFIRM #: [id number] documented in this encounter Consult Notes Valentina Lockett MD - 02/25/2020 12:58 PM CDT NAME: ESTEFANIA MCKEON MR#: [id number] CSN: [id number] AUTHENTICATING CLINICIAN: Valentina Lockett MD CONFIRM #: [id number] LOC: 1 HOSPITAL CONSULTATION DATE OF CONSULTATION: [...] a staghorn stone. GZ:MEDQ C: CONFIRM #: [id number] Valentina Lockett MD - 02/24/2020 4:23 PM CDT This office note has been dictated. Valentina Lockett MD - 02/24/2020 12:00 PM CDT NAME: ESTEFANIA MCKEON MR#: [id number] CSN: [id number] AUTHENTICATING CLINICIAN: Valentina Lockett MD CONFIRM #: [id number] LOC: 1 HOSPITAL CONSULTATION DATE OF CONSULTATION: 02/24/2020 : 1985 REQUESTING PHYSICIAN: Shiva De La Vega MD HISTORY OF PRESENT ILLNESS: I was asked by Dr. De La Vega to see this 34-year-old white female who was just transferred from [facility] for severe right hydronephrosis, large staghorn stones, acute right pyelonephritis, and sepsis. The patient has developed right flank pain for the last 2 days. It became much worse overnight and early this morning. He came to [place] [facility]. CT showed a 3 cm staghorn [...] I ben them a picture to explain mhlh-gs-joep how the stent is placed and what [...] 3.Right acute pyelonephritis. GZ:MEDQ C: CONFIRM #: [id number] documented in this encounter OR Notes H&P - Shiva De La Vega MD - 02/24/2020 2:27 PM CDT HISTORY AND PHYSICAL HPI: Estefania Mckeon is a 34 y.o. female with two days of flank pain. Became severe overnight. Seen at [facility], CT shows 3 cm staghorn calculus in renal pelvis with hydronephrosis. Pt UA ambnormal. Mild elevation of WBC. Temp 100.2. Tachy. [facility] Pt reports previous hx of stone many years ago. Hx of htn with many years ago, was startedon propranolol and has continued it since. Hx of depression on zoloft. No heart or lung disease. Nonsmoker. No etoh. Here in room with . Review of Systems A comprehensive review of systems was negative The following were reviewed in Epic: active problem list, medication list, notes from last encounter, lab results, imaging, medical and surgical history Objective: BP 108/75 Pulse (!) 126 Temp 37.9 ??C (100.2 ??F) (Oral) Ht 1.727 m (5' 8) Wt 73.9 kg (162 lb 14.7 oz) SpO2 97% BMI 24.77 kg/m?? White female in no distress Lungs: cta Heart: rrr Ab: soft UA with packed cells at [facility]. WBC 11.9. PLAN: Very large renal stone with hydronephrosis and UA concerning for infection. Low grade temp, mild elevation of wbc. Pt tachy, but couldb pain related. Start ceftriaxone, IVF, dilaudid, spoke with urology, they will see. Keep NPO until urology sees. 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 Continued zolft. Follow BP. [...] The track was dilated and a 10 [place] nephrostomy tube with additional sideholes placed along [...] The track was dilated and a 10 [place] nephrostomy tube with additional sideholes placed along [...] coiled in the hydronephrotic superior pole. Valentina GEE IR (ABNORMAL) Anaerobic Culture (02/25/2020 5:56 PM CDT) [facility] Method Time Signature Anaerobic Growth (A) 02/27/2020 [facility] Culture 10:28 AM T [facility] Anaerobic Many Multiple 02/27/2020 [facility] Culture Bacterial 10:28 AM CDT HOSPITAL Morphotypes Specimen Anatomical Collection Method Collection Time Receive d Time (Source) Location / / Volume Laterality Aspirate TISSUE SPECIMEN Non-blood 02/25/2020 5:56 PM 2019 6:16 FROM KIDNEY / Collection / CDT PM CDT Unknown Unknown Narrative [facility] - 02/27/2020 10:28 AM C DT No Predominant Anaerobes Present. Vicky Clark MD LAB_1 Performing Organization Address [facility] Phon e Number [address] [address] (ABNORMAL) Aerobic Culture (02/25/2020 5:56 PM CDT) [facility] Method Time Signature Aerobic Culture Pending 02/28/2020 [...] Vicky Clark MD LAB_1 Performing Organization Address [facility] Phon e Number [address] [address] [address] Abd Pelvis W/WO IV Cont IVP [...] Complete Blood Count-W/Diff (02/25/2020 6:43 AM CDT) [facility] Method Time Signature WBC 11.5 (H) 3.5 - 10.5 02/25/2020 [facility] x10(9)/L 7:03 AM CDT LABORATORY RBC 4.10 3.90 - 02/25/2020 [facility] 5.03 7:03 AM CDT LABOR[facility]ORY x10(12)/L Hemoglobin 12.1 12.0 - 02/25/2020 [facility] 15.5 g/dL 7:03 AM CDT LABORATORY HCT 38.0 34.9 - 02/25/2020 [facility] 44.5 % 7:03 AM CDT LABORATORY MCV 92.7 80.0 - 02/25/2020 [facility] 100.0 fL 7:03 AM CDT LABORATORY MCH 29.5 27.6 - 02/25/2020 [facility] 33.3 pg 7:03 AM CDT LABORATORY MCHC 31.8 31.5 - 02/25/2020 [facility] 35.2 g/dL 7:03 AM CDT LABORATORY RDW 12.7 11.9 - 02/25/2020 [facility] 15.5 % 7:03 AM CDT LABORATORY Platelets 201 150 - 450 02/25/2020 [facility] x10(9)/L 7:03 AM CDT LABORATORY Automated NRBC 0 <=0 /100 02/25/2020 [facility] WBC 7:03 AM CDT LABORATORY Neutrophil 8.4 (H) 1.7 - 7.0 02/25/2020 [facility] Absolute 10(9)/L 7:03 AM CDT LABORATORY Lymphocyte 1.6 1.0 - 4.8 02/25/2020 [facility] Absolute 10(9)/L 7:03 AM CDT LABORATORY Monocytes 1.4 (H) 0.2 - 0.9 02/25/2020 [facility] Absolute 10(9)/L 7:03 AM CDT LABORATORY Eosinophil 0.0 0.0 - 0.5 02/25/2020 [facility] Absolute 10(9)/L 7:03 AM CDT LABORATORY Basophil 0.0 0.0 - 0.3 02/25/2020 [facility] Absolute 10(9)/L 7:03 AM CDT LABORATORY Immature Gran % 0.3 0.0 - 0.5 02/25/2020 [facility] % 7:03 AM CDT LABORATORY Specimen Anatomical Collection Method / Collection Time Recei doc Time (Source) Location / Volume Laterality Blood Venipuncture / 02/25/2020 6:43 02/25/2020 7:00 Unknown AM CDT AM CDT Valentina Lockett MD LAB_1 Performing Organization Address City/State/ZIP Code Phon e Number [facility] [address] [place] [address] (ABNORMAL) Basic Metabolic Panel (IN AM) (02/25/2020 6:43 AM CDT) P athologist Signature Sodium 137 136 - 145 02/25/2020 [facility] mmol/L 7:40 AM CDT LABORATORY Potassium 4.0 3.5 - 5.1 02/25/2020 [facility] mmol/L 7:40 AM CDT LABORATORY Chloride 106 98 - 109 02/25/2020 [facility] mmol/L 7:40 AM CDT LABORATORY CO2 21 20 - 29 02/25/2020 [facility] mmol/L 7:40 AM CDT LABORATORY Anion Gap 10 7 - 16 02/25/2020 [facility] mmol/L 7:40 AM CDT LABORATORY Calcium 8.9 8.4 - 10.4 02/25/2020 [facility] mg/dL 7:40 AM CDT LABORATORY BUN 6 (L) 7 - 26 02/25/2020 [facility] mg/dL 7:40 AM CDT LABORATORY Creatinine 0.76 0.55 - 02/25/2020 [facility] 1.02 mg/dL 7:40 AM CDT LABORATORY GFR, Estimated >60 >60 02/25/2020 [facility] mL/min/1.7 7:40 AM CDT LABORATORY 3m2 Glucose 85 70 - 100 02/25/2020 [facility] mg/dL 7:40 AM CDT LABORATORY Comment: The [...] Organization Address City/State/ZIP Code Phon e Number [facility] [address] [place] [address] [place] Retrograde Pyelogram (02/24/2020 8:45 PM CDT) [...] mid and upper pole. Valentina Lockett MD RAD [place] 2019 Novel Coronavirus - Rapid (COVID-19) (02/24/2020 4:34 PM CDT) [facility] Method Time Signature COVID-19 Not Not 02/24/2020 [facility] Interpretation Detected Detected 5:51 PM CDT LABORATORY Specimen Anatomical Collection Method Collection Time Receive d Time (Source) Location / / Volume Laterality Swab (Source Non-blood 02/24/2020 4:34 PM 0 4:40 Required) Collection / CDT PM CDT Unknown Narrative [facility] - 02/24/2020 5:51 P M CDT Test performed by real-time PCR. This test has been authorized by the FDA under an Emergency Use Authorization (EUA) for use by authorized laboratories. Shiva De La Vega MD LAB_1 Performing Organization Address City/State/ZIP Code Phon e Number [facility] [address] [place] [address] Foreign Image(S) CT Abdomen/Pelvis (02/24/2020 3:51 PM CDT) Specimen (Source) Anatomical Location Collection Method / Collectio n Time Received Time / Laterality Volume Narrative EXTERNAL RESULTS - 02/24/2020 3:51 PM CD T These outside images have been uploaded into PACS. If the results were provided, they will be located in the pa blasnt's chart under the Media or Imaging tab. Foreign Images Provider RAD NON-REPORTABLES Performing Organization Address City/State/ZIP Code Phon e Number EXTERNAL RESULTS Blood Culture (02/24/2020 2:55 PM CDT) [facility] gist Method Time Signature Blood Culture [...] La Vega MD LAB_1 Performing Organization Address City/State/[facility] Phon e Number [address] [address] documented in this encounter Visit Diagnoses Diagnosis Pyelonephritis of right kidney - Primary Pyelonephritis of right kidney Hydronephrosis of right kidney Hydronephrosis Right kidney stone Calculus of kidney documented [...] Given 02/26/2020 8:01 PM CDT 1,000 mg acetaminophen (TYLENOL) tablet 650 mg Given 02/26/2020 8:01 AM CDT 650 mg 650 mg, Oral, Q4H PRN, Pain, Mild pain (pain scale 1-4), Starting on Tue02/24/20 at 1438, Until Tue02/26/20 at 0817 Given 02/25/2020 11:52 PM CDT 650 mg Given 02/25/2020 4:47 PM CDT 650 mg cefTRIAXone (ROCEPHIN) 1 g in dextrose 50 mL Started 11/2019 12:30 PM CDT 1 g IVPB 1 g, Intravenous, Administer over 30 Minutes, Q24H (NON-STND), First dose on 02/25/20 at 1200 Started 02/26/2020 11:31 AM CDT 1 g Started 02/25/2020 12:03 PM CDT 1 g HYDROmorphone (DILAUDID) injection 0.1-0 .5 mg Given 02/24/2020 2:46 PM CDT 0.5 mg 0.1-0.5 mg, Intravenous, Q4H PRN, Pain, Severe Pain (pain score 8-10), Starting on 02/24/20 at 1438, Until [place] 02/24/20 at 1452 HYDROmorphone (DILAUDID) injection 0.2-0 .4 mg Given 02/25/2020 7:00 PM CDT 0.2 mg 0.2-0.4 mg, Intravenous, Q4H PRN, Pain, Severe Pain (pain score 8-10), Starting on 02/24/20 at 1452, Until 02/25/20 at 1938 Given 02/25/2020 12:02 PM CDT 0.4 mg Given 02/25/2020 7:59 AM CDT 0.4 mg HYDROmorphone (DILAUDID) injection 0.3-0 .6 mg Given 02/25/2020 8:48 PM CDT 0.5 mg 0.3-0.6 mg, Intravenous, Q2H PRN, Pain, Severe Pain (pain score 8-10), Starting on 02/25/20 at 1945, Until Tue02/25/20 at 2109 hydrOXYzine pamoate (VISTARIL) capsule 2 5 mg Given 02/25/2020 9:28 PM CDT 25 mg 25 mg, Oral, Q6H PRN, Pain, Starting on 02/25/20 at 2111, Until Tue02/27/20 at 1816 iopamidol (ISOVUE-300) 61 % injection 10 0 mL Given 02/25/2020 10:50 AM CDT 100 mL 100 mL, Intravenous, ONCE, On Tue02/25/20 at 1130, For 1 dose, Radiology iopamidol (ISOVUE-300) 61 % injection 50 mL Given 02/25/2020 6:45 PM CDT 20 mL 50 mL, Intravenous, ONCE, On Tue02/25/20 at 1845, For 1 dose ketorolac (TORADOL) injection 15 mg Given 02/27/2020 4:25 AM CDT 15 mg 15 mg, Intravenous, Q6H, First dose on Tue02/26/20 at 0845, Last dose on Tue02/27/20 at 0330, For 4 doses Given 02/26/2020 9:37 PM CDT 15 mg Given 02/26/2020 3:28 PM CDT 15 mg lactated ringers Continue Current Bag 02/24/2020 8:46 PM 25 mL/hr 2 5 mL/hr infusion CDT 25 mL/hr, Intravenous, CONTINUOUS, Starting on Tue02/24/20 at 1915, Administer on all preop surgery patients, ages 12 and older, unless specified differently in the Protocol for Preop Initiation of IV fluids Order Set., Pre-op Continue from Pre-Op 02/24/2020 7:41 PM CDT Started 02/24/2020 7:13 PM CDT 25 mL/hr 25 mL/hr morphine injectable 4-8 mg Given 02/26/2020 6:29 [...] AM CDT 50 mg sodium chloride 0.9% 0.9 % injection - ADS Given 02/24/2020 2:47 PM CDT 20 mL Override Pull Starting on 02/24/20 at 1440, Until 02/24/20 at 1447, For 1 dose, Da Cox: cabinet override sodium chloride 0.9% 0.9 % injection - ADS Given 02/26/2020 9:45 PM CDT Override Pull Starting on Tue02/26/20 at 2130, Until Tue02/26/20 at 2145, For 1 dose, Sun Keith: cabinet override sodium chloride 0.9% injection 10-60 mL Given 02/25/2020 10:50 AM CDT 10 mL 10-60 mL, Intravenous, ONCE, On Tue02/25/20 at 1130, For 1 dose, Radiology sodium chloride 0.9% injection 5 mL Given 02/26/2020 3:30 PM CDT 20 mL 5 mL, See Admin Instructions, DAILY (NS), First dose on Tue02/25/20 at 1900, Until Discontinued, For drainage tube irrigation. documented in this encounter Active and Recently Administered Medications Times are shown in CDT. Scheduled Medication Order 02/25/2020 02/26/2020 02/27/2020 acetaminophen (TYLENOL) tablet 1,000 mg 1357 (Given - Provider: Carie Erazo RN)2000 (Given - Provider: Sun Keith RN) 0756 [...] Carie Erazo RN)1201 (Infused - Provider: Carie Erazo RN) 1230 (Started - Provider: Carie garzon RN)1300 (Infused - Provider: Carie Erazo RN) 1 g, Intravenous, Administer over 30 Min utes, Q24H (NON-STND), First dose on Tue02/25/20 at 1200 iopamidol (ISOVUE-300) 61 % injection 100 mL (COMPLETE D) 1050 (Given - Provider: Gracie Mohr - Comment: [id number]) 100 mL, Intravenous, ONCE, Tue02/25/20 at 1130, For 1 dose, Radi ology iopamidol (ISOVUE-300) 61 % injection 50 mL (COMPLETED ) 1845 (Given - Provider: Laura Linda) 50 mL, Intravenous, ONCE, Tue02/25/20 at 1845, For 1 dose ketorolac (TORADOL) injection 15 mg (COMPLETED) 0917 (Given - Provider: Carie Erazo RN)1528 (Given - Provider: Sun Keith, MICHAEL)2137 (Given - Provider: Sun Keith RN) 0425 (Given - Provider: Serenity Allison RN) [...] tablet 50 mg 0759 (Given - Provider: Juleinne Smith RN) 0757 (Given - Provider: Carie [...] 1900 (Given during Procedure - Provider: Stefan Montoya RN) 1530 (Given - Provider: Sun Keith RN)1900 (Not Given - Provider: Sun Keith RN [...] 1945 hydrOXYzine pamoate (VISTARIL) capsule 25 mg 2127 (Giv en - Provider: Stefan Montoya RN) 25 mg, Oral, Q6H PRN, Pain, Starting 02/25/20 at 2111 morphine injectable 4-8 mg 212 (Given - Provider: Stefan Montoya RN) 0221 (Given - Provider: Jenn Pressley RN)0629 (Given - Provider: Jenn Pressley RN) 4-8 mg, Intravenous, Q4H PRN, Pain, Alee re Pain (pain score 8-10), Starting 02/25/20 at 2109 oxyCODONE (ROXICODONE) immediate release tablet 5-10 mg 1019 (Given - Provider: Carie Erazo, RN)1052 (Given - Provider: Carie Erazo, RN)1854 (Given - Provider: Sun Keith, MICHAEL) 0228 (Given - Provider: Serenity Allison, MICHAEL)0949 (Given - Provider: Carie Erazo, RN)1516 (Given - Provider: Carie Erazo, RN) 5-10 mg, Oral, Q4H PRN, Pain, Severe Zenobia n (pain score 8-10), Starting Tue02/26/20 at 0817 No Frequency Medication Order 02/25/2020 02/26/2020 02/27/2020 sodium chloride 0.9% 0.9 % injection - ADS Override Pull (CO MPLETED) 2144 (Given - Provider: Sun Kieth, MICHAEL) Starting on Tue02/26/20 at 2130, Until T ue 02/26/20 at 2145, For 1 dose, Sun Keith: cabinet override documented in this encounter Care Teams Out And Out Cigar Maker Hand Relationship Specialty Start Date End Date Shannan Matthews DO PCP - General Family Practice 10/13/19 14[address] [id number] documented as of this encounter
--- OUTSIDE RECORDS SUMMARY | 2022-04-25 22:32 | XMS_ITS | Encounter Summary ---
:1985 Author Organization [facility] Address [address] [place] [address] Care Team Providers Name Role Phone Shannan Matthews DO Primary Care Provider Reason for Visit Reason Comments ABDOMINAL PAIN Encounter Details Date Type Department Care Team Description 12/17/2019 Nurse Triage [facility] Serenity Waters ABDOMINAL PAIN Services-SIGNAL OPERATOR LINGUIST MD Eduard [id number] [place] [address], [address] [place] [address] [address] [place], [place] [id number] [phone] Social History Tobacco Use Types Packs/Day Years Used Date Smoking Tobacco: Never Smokeless Tobacco: Never Alcohol Use Standard Drinks/Week Comments Not Currently 0 (1 standard drink = 0.6 oz pure alcoho l) 2/week Sex Assigned at Date Recorded Not on file documented as of this encounter Nursing Notes Lavonne Kwan RN - 12/17/2019 8:28 AM CDT Reason for Disposition ? ? Constant abdominal pain lasting > 2 hours Protocols used: ABDOMINAL PAIN - WIFIOE-RAKHP-QA C/O constant cramping/throbbing and intermittent sharp LLQ abdominal pain, rates 6/10 since yesterday. Getting progressively worse and now also having nausea, doesn't feel well. Hx of ovarian cysts andtold after recent surgery as endometriosis. Encouraged to be seen in UC/ED d/t progressively worsening pain and nausea. Verbalizes understanding. Problem list reviewed as related to this call. documented in this encounter Plan of Treatment Not on filedocumented as of this encounter Visit Diagnoses Not on filedocumented in this encounter Care Teams Electrician Wiring Relationship Specialty Start Date End Date Shannan Matthews DO PCP - General Family Practice 10/13/19 [address] [id number] documented as of this encounter
--- OUTSIDE RECORDS SUMMARY | 2022-04-25 22:32 | XMS_ITS | Encounter Summary ---
:1985 Author Organization [facility] [employer] Address [address] [place] [address] Care Team Providers Name Role Phone Shannan Matthews DO Primary Care Provider Reason for Visit Auth/Cert Specialty Diagnoses / Procedures Referred By Contact Refer red To Contact Diagnoses Encounter for female sterilization procedure Procedures LAPAROSCOPIC SALPINGECTOMY Referral ID Status Reason Start Date Expiration Date Visits Requ ested Visits Authorized [id number] 1 1 Encounter Details Date Type Department Care Team Description 11/16/2019 Hospital Encounter [facility] [address], En counter for female Mall Bld Ambul Serenity Chapa MD sterilization Surgery [address] [place] procedure [address] [facility], [address] [place] [address] [phone] Social History Tobacco Use Types Packs/Day Years Used Date Smoking Tobacco: Never Smokeless Tobacco: Never Alcohol Use Standard Drinks/Week Comments Not Currently 0 (1 standard drink = 0.6 oz pure alcoho l) 2/week Sex Assigned at Date Recorded Not on file documented as of this encounter Last Filed Vital Signs Vital Sign Reading Time Taken Comments Blood Pressure 119/85 11/16/2019 1:30 PM CDT Pulse 71 11/16/2019 1:30 PM CDT Temperature 36 ??C (96.8 ??F) 11/16/2019 1:10 PM CDT Respiratory Rate 16 11/16/2019 1:30 PM CDT Oxygen Saturation 98% 11/16/2019 1:30 PM CDT Inhaled Oxygen Concentration - - [...] Waters MD - 11/06/2019 4:15 PM CDT [facility] Chief Complaint Patient presents with ??? Preop Exam Tubal ligation History of Present Illness: Estefania Mckeon is a 34 y.o. female here for Preop Exam (Tubal ligation) . She desires permanent sterilization and has opted to have her tubes removed. She understands this is permanent. Current Outpatient Medications Medication Sig ??? guthtqehai-njxddybqfufch-cpnxifju (FIORICET) 50-325-40 MG tablet Take 1 Tablet [...] Waters MD - 11/16/2019 12:38 PM CDT SALES LEDGER ADMINISTRATOR OP NOTE Pre op dx: Desires permanent [...] Waters MD - 11/16/2019 12:33 PM CDT [facility] Brief Operative Progress Note Surgery Date: 11/16/2019 [...] Component Value Ref Test Analysis Performed At [facility] gist Range Method Time Signature Case Report Surgical Pathology ?Case: [id number] ? 11/19/2019 [facility] Authorizing Provider: ??Serenity Waters, ?? Collected: ? 11/16/2019 12:03 PM ? 11:59 AM LABORATOR Y ? MD ? CDT Ordering Location: ? [facility] [address] ?Received: ?11/16/2019 12:25 PM ? Bld Ambul Surgery ? Pathologist: ? Alex Lozano MD ? Specimens: ?? A) - Fallopian Tube, right ? B) - Fall opian Tube, left ? FINAL A. Fallopian Tube, right, salpingectomy: 11/19/2019 [facility] Electronically DIAGNOSIS ?? Complete cross-section of fallopian [...] in diameter portion of fallopian tube an [facility] Description d fimbria.?? The serosa is t an-pink, smooth and glistening.?? The cut surfaces are rodriguez-pink with a patent, stellate lumen.?? No masses or lesions are identified.?? New Client Banking Services Clerk sections including the 11:59 AM LABORATORY longitudinally [...] lumen.?? No masses or lesions are identified.?? New Client Banking Services Clerk sections including the l ongitudinally bisected fimbr ia and cross sections of fallopian tube are submitted in one cassette. DJ Clinical Encounter for 11/19/2019 [facility] Information female 11:59 AM LABORATORY sterilization CDT procedure Microscopic Microscopic 11/19/2019 [facility] Description examination is 11:59 AM LABORATORY performed. CDT Embedded 11/19/2019 [facility] Images 11:59 AM LABORATORY CDT Specimen Anatomical [...] Organization Address City/State/ZIP Code Phon e Number [facility] [address] [place] [address] POCT urine (11/16/2019 10:57 AM CDT) [facility] Method Time Signature Urine Negative POCT Test - POC Control Line Yes POCT Present, Clear Background - Internal control Cartridge Lot# [id number] POCT Specimen (Source) Anatomical Collection Method Collection Time Re ceived Time Location / / Volume Laterality Urine 11/16/2019 10:57 AM CDT Serenity Waters MD ET POINT OF CARE TEST [...] 12:23 PM CDT 6 mL (SENSORCAINE) 0.25% -1:[id number] injection ONCE PRN, Starting on Tue11/16/19 at [...] starts unless patient refuses., Pre-op lidocaine-epinephrine 1 %-1:027892 injection 30 mL 111 (Due) 30 mL, Injection, ONCE, Tue11/16/19 at 1 115, For 1 dose, To be given at beginning or end of case and before the patient leaves OR to PACU., Pre-op NO pre-op antibiotics needed 111 5 (Noted - Provider: Carie Butt RN) ONCE, Tue11/16/19 at 1115, For 1 dose, Pre-op scopolamine (TRANSDERM-SCOP) 1.0mg/3 days 1 Patch 1114 (Due) 1 Patch, Transdermal, ONCE, Tue11/16/19 at [...] (Anesthesia Fluid - Provider: Lavonne Worthy APRN, ARSON INVESTIGATOR) 25 mL/hr, Intravenous, at 25 mL/hr, CONT INUOUS, Starting Tue11/16/19 at 1130, Administer on all preop surgery patients, ages 12 and older, unless specified differently in the Protocol for Preop Initiation of IV fluids Order Set., Pre-op PRN Medication Order 11/14/2019 11/15/2019 11/16/2019 bupivacaine-epinephrine PF (SENSORCAINE) 0.25% -1:[id number] injecti on 1223 (Given - Provider: Serenity [...] Post-op documented in this encounter Care Teams Bench Press Operator Relationship Specialty Start Date End Date Shannan Matthews DO PCP - General Family Practice 10/13/19 [address] [id number] documented as of this encounter
--- OUTSIDE RECORDS SUMMARY | 2022-04-25 22:32 | XMS_ITS | Encounter Summary ---
:[address] [facility] Address [address], [place] [address] Care Team Providers Name Role Phone Shannan Matthews DO Primary Care Provider Reason for Visit Auth/Cert Specialty Diagnoses / Procedures Referred By Contact Refer red To Contact Diagnoses Encounter for female sterilization procedure Procedures LAPAROSCOPIC SALPINGECTOMY Referral ID Status Reason Start Date Expiration Date Visits Requ ested Visits Authorized [id number] 1 1 Encounter Details Date Type Department Care Team Description 11/16/2019 Anesthesia Event [facility] [address] [facility] Tomy Stubbs MD [address] [place] [address] [facility] Surgery Lavonne Worthy APRN, CRNA [address] [place] [phone] [place], [place] [address] Anesthesia Record Procedure Summary Procedure Name Responsible Anesthesia Start Anesthesia Stop Anesthesiologist Time Time LAPAROSCOPIC Tomy Stubbs MD 11/16/19 1129 11/16/19 123 8 SALPINGECTOMY (Bilateral: Abdomen) Events Date Time Event Comment 11/16/2019 1129 1129 An Start Anesthesia start time denotes sedation started by RAILROAD CONDUCTOR currently o n case; patient continuously monitored to O.R . By RAILROAD CONDUCTOR 1135 An Start Data 1136 / Present 1137 An Induction 1139 An Intubation 1140 MD/DO Present 1140 MD/DO Present BBS ausc 1156 MD/DO Present 1226 MD/DO Present 1231 An Extubation Purposeful movem ent with spontaneous respirations and adequate air exchange. Suctioned and ETT removed. Transfe rred with oxygen to recovery. 1231 MD/DO Present 1234 an stop data 1238 Care Handoff Note I discussed wi th [...] understanding of report Electr onically signed by VINCE Kimball RN, RAILROAD CONDUCTOR 1238 An Stop Care transferred . Name Total midazolam injection 2 mg/2 mL (VERSED) 4 mg fentaNYL injection (SUBLIMAZE) 100 mcg lidocaine 1% PF injection (XYLOCAINE) 50 mg propofol 10 mg/mL IV (DIPRIVAN) 160 mg succinylcholine injection (QUELICIN) 100 mg ondansetron injection (ZOFRAN) 4 mg dexamethasone 4 mg/mL injection (DECADRON) 4 mg phenylephrine 100 mcg/mL in NaCl 0.9% syringe 200 mcg dexmedetomidine injection syringe 20 mcg/5 mL 20 mcg lactated ringers infusion 700 mL Agents Name O2 Air Sevoflurane () Identified Agent Name Blood No blood administrations on file. Lines, Drains, and Airways Type Details Placement Removal Peripheral IV Placement Date: 11/16/19 1054 by 11/16/19 1345 b y 11/16/19; Placement Carie Butt, Carie Butt, Time: 1054; RN RN Pre-existing: No; Inserted by?: RN; Size (Gauge): 20 G; Orientation: Anterior, Right; Site Prep: Chlorhexidine; Local Anesthetic: None; Insertion attempts: 1; Blood draw with insertion?: no; Patient Tolerance: Tolerated well; Met Standard Sterile Barrier Technique: Met Standard Sterile Barrier Technique; Removal Date: 11/16/19; Removal Time: 1345; Removal Reason: Patient discharged; Catheter Tip: Intact ETT Placement Date: 11/16/19 1144 by 11/16/19 1231 b y 11/16/19; Placement Lavonne Worthy, Time: 1144; Placed By: SHERON Webb CRNA Heather M, APRN, CRNA; Induction Type: RAILROAD CONDUCTOR Pre-O2, IV; Masking: Easy; ETT Type: ETT; Orientation: Right; Size (mm): 7.0; Depth Secured (cm): 22 cm; Cuffed: Cuffed; Cuff Volume: 6 mL; Intubation Method: DL; Cormack_Lehane Glottic Grade: Grade 1; Glottic View: Cords Open, Cords Clear; Blade: MAC; Blade Size: 3; Difficulty: Atraumatic; Adjunct Equipment: Stylet; Placement Verification: BBSE, Positive EtCO2, capnometry, auscultation; Teeth and Lips Unchanged: Unchanged; Removal Date: 11/16/19; Removal Time: 1231 Incision/Surgical Site 11/16/19; 1200; 11/16/19 1200 by 11/16/19 1345 by Abdomen (3 port Fabby Diaz RN Hirmer, Alexan dra L, sites); 11/16/19; 1345 RN Urethral Catheter 11/16/19; 1200; 11/16/19 1200 by 11/16/19 1222 by (Intermittent/Straight 11/16/19; 1222 Fabby Diaz RN Welter, Kayla, RN ) NG/OG Tube Placement Date: 11/16/19 1223 by 11/16/19 1345 b y 11/16/19; Placement Lavonne Worthy Alexandra L, Time: 1223; Removal SHERON Webb CRNA RN Date: 11/16/19; Removal Time: 1345 documented in this encounter Social History Tobacco Use Types Packs/Day Years Used Date Smoking Tobacco: Never Smokeless Tobacco: Never Alcohol Use Standard Drinks/Week Comments Not Currently 0 (1 standard drink = 0.6 oz pure alcoho l) 2/week Sex Assigned at Date Recorded Not on file documented as of this encounter Miscellaneous Notes Anesthesia Postprocedure Evaluation - Tomy Stubbs MD - 11/16/2019 1:42 PM CDT [facility] Anesthesia Post-op Note Patient: Estefania Mckeon Post-Op Diagnosis: Encounter for female sterilization procedure Procedure Performed: Procedure(s): LAPAROSCOPIC SALPINGECTOMY Anesthesia Type: General Post-op vital signs: Vitals Value Taken Time BP 119/85 11/16/2019 1:30 PM Temp 36 ??C (96.8 ??F) 11/16/2019 1:10 PM Pulse 70 11/16/2019 1:39 PM Resp 16 11/16/2019 1:30 PM SpO2 99 % 11/16/2019 1:39 PM Vitals shown include unvalidated device data. Pain Score: Presence Of Pain: complains of pain/discomfort Preferred Pain Scale: number (Numeric Rating Pain Scale) Pain Rating (0-10): Rest: 5 Post-op assessment: No anesthesia complication. Patient location: Phase 2 Airway Status: Patent Cardiovascular function: Satisfactory Hydration status: Satisfactory PONV: None Level of Consciousness: Awake Fully Participates Postop Assessment: Patient tolerated procedure well. Electronically signed by: Tomy Stubbs MD 11/16/2019 1:42 PM Anesthesia Preprocedure Evaluation - Tomy Stubbs MD - 11/16/2019 11:04 AM CDT [facility] Anesthesia Pre-op Evaluation Procedure: Procedure(s): LAPAROSCOPIC SALPINGECTOMY HPI: 34 y.o. old female with Encounter for female sterilization procedure NPO Status: Last Fluid Intake Time: 729 Last Fluid Intake Date: 11/16/19 Last Food Intake Date: 11/15/19 Last Food Intake Time: 1899 Allergies Allergen Reactions ??? Amoxicillin Hives ??? Diphenhydramine Breathing Difficulty and Palpitations Benadryl ??? Macrobid [Nitrofurantoin] Hives Past Medical History: Diagnosis Date ??? Anemia [...] ??? Encounter for female sterilization procedure Past Surgical History: Procedure Laterality Date ??? CYSTOSCOPY 2003 Kidney stones ??? HX APPENDECTOMY 1998 ??? WISDOM TEETH EXTRACTION Outpatient Medications Marked as Taking for the 11/16/19 encounter (Hospital Encounter) Medication Sig Dispense Refill ??? gtvqifjwmi-bnkwvmndkezvm-dkgzevus (FIORICET) 50-325-40 MG tablet Take 1 Tablet [...] hours and 9 days/month 9 Tablet 2 Current Facility-Administered Medications Medication Dose Route Frequency ??? ketorolac (TORADOL) injection 30 mg 30 mg Intravenous Q6H ??? lactated ringers infusion 25 mL/hr Intravenous Continuous ??? lactated ringers infusion 25 mL/hr Intravenous Continuous ??? lidocaine PF (XYLOCAINE) 1 % injection 0.1-0.3 mL 0.1-0.3 mL Subcutaneous Once And ??? lidocaine PF (XYLOCAINE) 1 % injection 0.1-0.3 mL 0.1-0.3 mL Subcutaneous PRN ??? lidocaine-epinephrine 1 %-1:[id number] injection 30 mL 30 mL Injection Once ??? NO pre-op antibiotics needed Miscellaneous Once ??? ondansetron (ZOFRAN) injection 4 mg 4 mg Intravenous ONCE PRN ??? scopolamine (TRANSDERM-SCOP) 1.0mg/3 days 1 Patch 1 Patch Transdermal Once Labs: Lab Results Component Value Date/Time SODIUM [...] 08:33 AM No results found for: INR Urine test on 11/16/2019 was Negative. Blood Bank: Antibody Screen (no units) Date Value 06/19/2018 NEG EKG: No results found for this or any previous visit. Physical Exam: BP 119/87 Pulse 85 Temp 36.2 ??C (97.2 ??F) (Temporal Artery) Resp 16 Ht 5' 7 Wt 73.1 kg (161 lb 2.5 oz) SpO2 100% BMI 25.24 kg/m?? Assessment/Plan: Review of Systems Patient does [...] benefits and alternatives discussed with: Patient or Unload Associate agree tothe anesthesia treatment plan and Patient. H&P Reviewed and Patient examined, no change observed IV access Antibiotics per surgery Electronically signed by: Tomy Stubbs MD 11/16/2019 11:04 AM documented in this encounter Plan of Treatment Not on filedocumented as of this encounter Visit Diagnoses Not on filedocumented in this encounter Administered Medications Inactive Administered Medications - up to 3 most recent administrations Medication Order MAR Action Action Date Dose Rate Site dexamethasone (DECADRON) injection Given 11/16/2019 11:37 AM CDT 4 mg Intravenous, Starting on Tue11/16/19 at 1137, Until Tue11/16/19 at 1238 dexmedetomidine injection syringe 20 mcg /5 mL Given 11/16/2019 11:57 AM CDT 8 mcg Starting on Tue11/16/19 at 1145, Until Tue11/16/19 at 1238 Given 11/16/2019 11:45 AM CDT 12 mcg fentaNYL (SUBLIMAZE) injection Given 11/16/2019 11:36 AM CDT 100 mcg Intravenous, Starting on Tue11/16/19 at 1136, Until Tue11/16/19 at 1238 lidocaine PF (XYLOCAINE) 1 % injection Given 11/16/2019 11:37 AM CDT 50 mg Intravenous, Starting on Tue11/16/19 at 1137 midazolam (VERSED) injection Given 11/16/2019 11:35 AM CDT 2 mg Intravenous, Starting on Tue11/16/19 at 1129, Until Tue11/16/19 at 1238 Given 11/16/2019 11:29 AM CDT 2 mg ondansetron (ZOFRAN) injection Given 11/16/2019 11:37 AM CDT 4 mg Intravenous, Starting on Tue11/16/19 at 1137, Until Tue11/16/19 at 1238 phenylephrine-NaCl 0.9% (KAILEE-SYNEPHRINE) Given 11/16/2019 12:23 PM CDT 100 mcg injection Intravenous, Starting on Tue11/16/19 at 1153, Until Tue11/16/19 at 1238 Given 11/16/2019 11:53 AM CDT 100 mcg propofol (DIPRIVAN) 10 mg/mL injection Given 11/16/2019 11:37 AM CDT 160 mg Intravenous, Starting on Tue11/16/19 at 1137, Until Tue11/16/19 at 1238 succinylcholine (QUELICIN) injection Given 11/16/2019 11:38 AM CDT 100 mg Intravenous, Starting on Tue11/16/19 at 1138, Until Tue11/16/19 at 1238 documented in this encounter Care Teams Elderly Sitter Relationship Specialty Start Date End Date Shannan Matthews DO PCP - General Family Practice 10/13/19 [address] [id number] documented as of this encounter
--- OUTSIDE RECORDS SUMMARY | 2022-04-25 22:32 | XMS_ITS | Encounter Summary ---
:1985 Author [facility] Address [address] [place] [address] Care Team Providers Name Role Phone Shannan Matthews DO Primary Care Provider Reason for Visit Reason Comments Discharge Follow Up Call Encounter Details Date Type Department Care Team Description 02/28/2020 Telephone Valentina Huizar MD Discharge Follow Up [facility] - [address] [place] [id number] [phone] Social History Tobacco Use Types Packs/Day Years Used Date Smoking Tobacco: Never Smokeless Tobacco: Never Alcohol Use Standard Drinks/Week Comments Yes 0 (1 standard drink = 0.6 oz pure alcoho l) 2/week Sex Assigned at Date Recorded Not on file documented as of this encounter Nursing Notes Winnie Lancaster RN - 02/28/2020 9:16 AM CDT Post-Surgical Discharge follow-up call completed. Please refer to DOC Flowsheet: SURGDC for details. documented in this encounter Plan of Treatment Not on filedocumented as of this encounter Visit Diagnoses Not on filedocumented in this encounter Care Teams Coding Director Relationship Specialty Start Date End Date Shannan Matthews DO PCP - General Family Practice 10/13/19 [address] [place] [id number] documented as of this encounter
--- OUTSIDE RECORDS SUMMARY | 2022-04-25 22:32 | XMS_ITS | Encounter Summary ---
:1985 Author Organization [facility] Address [address] [place] [address] Care Team Providers Name Role Phone CassieShannan Jose VALDIVIA Primary Care Provider Reason for Visit Procedure/Equipment (Routine) - Incomplete Specialty Diagnoses / Procedures Referred By Contact Refer red To Contact Procedures Provider, Foreign Images Foreign Image(S) CT [address] Abdomen/[place] [address] Referral ID Status Reason Start Date Expiration Date Visits V isits Requested Authorized [id number] Incomplete 02/24/2020 05/25/2021 1 1 Encounter Details Date Type Department Care Team Description 02/24/2020 Ancillary Procedure Radiology PACS [address] [place] [address] Social History Tobacco Use Types Packs/Day Years [...] Diagnosis Comme nts FOREIGN IMAGE(S) CT Routine 02/24/2020 3:51 PM Re sults for this ABDOMEN/PELVIS CDT procedure are in the results section. documented in this encounter Results Foreign Image(S) CT Abdomen/Pelvis (02/24/2020 3:51 PM [...] City/State/ZIP Code Phon e Number EXTERNAL RESULTS documented in this encounter Visit Diagnoses Not on filedocumented in this encounter Care Teams Head Of Sales Promotion Relationship Specialty Start Date End Date Shannan Matthews DO PCP - General Family Practice 10/13/19 [address] [id number] documented as of this encounter
--- OUTSIDE RECORDS SUMMARY | 2022-04-25 22:32 | XMS_ITS | Encounter Summary ---
:1985 Author Organization [facility] Address [address], [place] [address] Care Team Providers Name Role Phone Shannan Matthews DO Primary Care Provider Encounter Details Date Type Department Care Team Description 10/19/2019 Partner ED Initial Department ProviderHERIBERTO 10/13/2019 [address], [place], [place] [address] Interface provider [phone] [place] [address] Social History Tobacco Use Types Packs/Day Years [...] on filedocumented in this encounter Care Teams Waste Paper Hammermill Operator Relationship Specialty Start Date End Date Shannan Matthews DO PCP - General Family Practice 10/13/19 [address] [place] [id number] documented as of this encounter
--- OUTSIDE RECORDS SUMMARY | 2022-04-25 22:32 | XMS_ITS | Encounter Summary ---
:1985 Author Organization [facility] Address [address] [place] [address] Care Team Providers Name Role Phone Shannan Matthews Primary Care Provider Reason for Visit Reason Onset Date Comments COVID Questions 11/14/2019 Encounter Details Date Type Department Care Team Description 11/14/2019 Office Visit [facility] [id number], Drive-Up Encounter for screening [address] for other viral [place], [place] disease s (Primary Dx) [id number] Social History Tobacco Use Types Packs/Day Years [...] Date/Time Associated Comments Diagnosis 2019 NOVEL Routine 11/14/2019 9:51 AM Encounter for Results for this CORONAVIRUS CDT screening for other procedur e are in viral diseases the results section. documented in this encounter Results Asymptomatic - 2019 Novel Coronavirus (COVID-19) (11/14/2019 9:51 AM CDT) [facility] Method Time Signature COVID-19 Not Not 11/15/2019 [facility] Interpretation Detected Detected 1:04 AM CENTRAL LAB CDT Specimen Anatomical Collection Method Collection Time Receive d Time (Source) Location / / Volume Laterality Swab (Source Non-blood 11/14/2019 9:51 AM 06/24/202 0 Required) Collection / CDT 12:21 PM CDT Unknown Narrative [facility] - 11/15/2019 1:04 AM CDT Testing has been performed by Child Care Assistant Mediated Amplification. This test has been authorized by the FDA under an Emergency Use Authorization (EUA) for use by authorized laboratories. Shannan Matthews DO LAB_1 Performing Organization Address City/State/ZIP Code Phon e Number [facility] [address] [phone] documented in this encounter Visit Diagnoses Diagnosis Encounter for screening for other viral diseases - Primary documented in this encounter Care Teams Wool Buyer Relationship Specialty Start Date End Date Shannan Matthews DO PCP - General Family Practice 10/13/19 [address] [place] [id number] documented as of this encounter
--- OUTSIDE RECORDS SUMMARY | 2022-04-25 22:33 | XMS_ITS | Encounter Summary ---
:1985 Author [facility] Address [address] [place] [address] Care Team Providers Name Role Phone Needs Pcp, Assignment Primary Care Provider Reason for Visit Reason Comments Forms Encounter Details Date Type Department Care Team Description 05/03/2019 Telephone [place] 1515 Wanda Guallpa MD Forms Obstetrics/Gynecolog y 1515 [facility] [place] [facility] [facility] [address] [place] [address] [place] [phone] (Wo rk) Social History Tobacco Use Types Packs/Day Years Used Date Smoking Tobacco: Never Smokeless Tobacco: Never Alcohol Use Standard Drinks/Week Comments Not Currently 0 (1 standard drink = 0.6 oz pure alcoho l) 2/week Sex Assigned at Date Recorded Not on file documented as of this encounter Nursing Notes Danitza Coleman RN - 05/07/2019 4:19 PM CST Forms completed and faxed as directed. A copy was sent to HIM. OR FIELD ENGINEER Carmella Galloway LPN - 05/03/2019 2:40 PM CST FMLA paperwork received via fax. Forms left in nurse basket. Dr. Guallpa will sign when back in clinic. OR FIELD ENGINEER documented in this encounter Plan of Treatment Not on filedocumented as of this encounter Visit Diagnoses Not on filedocumented in this encounter Care Teams Loan Representative Relationship Specialty Start Date End Date Needs Pcp, Assignment PCP - General 09/07/18 10/12/19 [place] [address] documented as of this encounter
--- OUTSIDE RECORDS SUMMARY | 2022-04-25 22:33 | XMS_ITS | Encounter Summary ---
:1985 Author Organization [employer] Address [address], [place] [address] Care Team Providers Name Role Phone Needs Pcp, Assignment Primary Care Provider Reason for Visit Reason Comments BP CHECK,NURSE EKG Encounter Details Date Type Department Care Team Description 08/28/2019 Nursing Visit [place] [facility] Essential hypertension Medicine (Primary Dx) 1415 [facility] [place] [address] Social History Tobacco Use Types Packs/Day Years Used Date Smoking Tobacco: Never Smokeless Tobacco: Never Alcohol Use Standard Drinks/Week Comments Not Currently 0 (1 standard drink = 0.6 oz pure alcoho l) 2/week Sex Assigned at Date Recorded Not on file documented as of this encounter Last Filed Vital Signs Vital Sign Reading Time Taken Comments Blood Pressure 109/82 08/28/2019 8:20 AM CDT Pulse 81 08/28/2019 8:20 AM CDT Temperature - - Respiratory Rate - - Oxygen Saturation - - Inhaled Oxygen Concentration - - Weight - - Height - - Body Mass Index - - documented in this encounter Progress Notes Ju Herrera LPN - 08/28/2019 8:15 AM CDT Subjective: Estefania Mckeon is a 34 y.o. female with hypertension here for a BP check. Did EKG. Unconfirmed EKG is Normal Objective: Vitals: 08/28/19 0818 08/28/19 0820 BP: 127/85 109/82 Pulse: 81 Outpatient Medications Prior to Visit Medication Sig Dispense Refill ??? zkvfyugely-hduwvrafxpcmb-ogmynplo (FIORICET) 50-325-40 MG tablet Take 1 Tablet by mouth every 4 hours as needed for Pain. 10 Tablet 0 ??? cetirizine (ZYRTEC) 10 MG tablet Take 10 mg by mouth daily. ??? propranolol (INDERALLA) 80 MG 24 hour release capsule Take 1 Capsule by mouth daily. 90 Capsule 3 ??? SUMAtriptan (IMITREX) 50 MG tablet Take 1 Tablet by mouth as needed for Migraine. May repeat onetablet after 2 hours if needed. Maximum 4 tabs/24 hours and 9 days/month 9 Tablet 2 No facility-administered medications prior to visit. documented in this encounter Plan of Treatment Not on filedocumented as of this encounter Procedures Procedure Name Priority Date/Time Associated Diagnosis Comme nts ECG 12 LEAD Routine 08/28/2019 8:13 AM Essential Results f or this OUTPATIENT CDT hypertension procedure are i n the results section. documented in this encounter Results ECG 12 Lead Outpatient non lab (aka EKG) (08/28/2019 8:13 AM CDT) P athologist Signature Ventricular Rate 72 BPM [facility] Atrial Rate 72 BPM [facility] P-R Interval 134 ms M[facility] QRS Duration 86 ms M[facility] QT 386 ms [facility] QTc 422 ms M[facility] P [place] 18 degrees MUSE [facility] R [place] 62 degrees MUSE G[facility] T [place] 34 degrees MUSE [facility] Specimen (Source) Anatomical Collection Method Collection Time Re ceived Time Location / / Volume Laterality 08/28/2019 8:13 AM CDT Narrative M[facility] - 08/28/2019 9:17 AM CDT Sinus rhythm Normal ECG No previous ECGs available Confirmed by SARAH SMILEY ([id number]) o n 08/28/2019 9:17:13 AM Procedure Note Sarah Smiley MD - 08/28/2019For matting of this note might be different from the original. Sinus rhythm Normal ECG No previous ECGs available Confirmed by SARAH SMILEY ([id number]) o n 08/28/2019 9:17:13 AM Shannan Matthews DO PN ECG ORDERABLES Performing Organization Address City/State/ZIP Code Phon e Number [facility] [address] [place] [address] documented in this encounter Visit Diagnoses Diagnosis Essential hypertension (HRC) - Primary Unspecified essential hypertension documented in this encounter Care Teams Technical Support Director Relationship Specialty Start Date End Date Needs Pcp, Assignment PCP - General 09/07/18 10/12/19 [place] [address] documented as of this encounter
--- OUTSIDE RECORDS SUMMARY | 2022-04-25 22:33 | XMS_ITS | Encounter Summary ---
:1985 Author Organization [facility] Address [address] [place] [address] Care Team Providers Name Role Phone Needs Pcp, Assignment Primary Care Provider Reason for Referral Home Health (Routine) - Closed Specialty Diagnoses / Procedures Referred By Contact Refer red To Contact Diagnoses Routine follow-up Wanda Guallpa MD 1518 [facility] 200 [place] [address] Referral ID Status Reason Start Date Expiration Date Visits Requ ested Visits Authorized [id number] Closed 01/29/2019 04/29/2020 999 999 Scheduling Instructions Your provider has recommended an appoint ment with [facility]. A nurse will contact you with in 24 hours to set up this appointment. If you have not been contacted, please call [phone] to schedule your appointment. You may want to call your Differential about your coverage and benefits for this appointment. Encounter Details Date Type Department Care Team Description 01/29/2019 Notes/Orders PN MATERNAL CHILD Wanda Guallpa Routi ne HEALTH HOME CARE follow-up (Primary Dx) [address] 15[address] [place] [address] [facility] [place] [address] [place] [phone] Social History Tobacco Use Types Packs/Day Years Used Date Smoking Tobacco: Never Smokeless Tobacco: Never Alcohol Use Standard Drinks/Week Comments Not Currently 0 (1 standard drink = 0.6 oz pure alcoho l) 2/week Sex Assigned at Date Recorded Not on file documented as of this encounter Plan of Treatment Scheduled Referrals Name Type Priority Associated Diagnoses Order S [facility] Home Care OB and Referral Routine Routine Order ed: 01/29/2019 [facility] follow-up documented as of this encounter Visit Diagnoses Diagnosis Routine follow-up - Primary documented in this encounter Care Teams Elementary Secretary Relationship Specialty Start Date End Date Needs Pcp, Assignment PCP - General 09/07/18 10/12/19 [place], [place] [id number] documented as of this encounter
--- OUTSIDE RECORDS SUMMARY | 2022-04-25 22:33 | XMS_ITS | Encounter Summary ---
:1985 Author Organization [facility] [employer] Address [address] [place] [address] Care Team Providers Name Role Phone Needs Pcp, Assignment Primary Care Provider Encounter Details Date Type Department Care Team Description 08/28/2019 Lab Visit [place] [facility] Scre[facility] for hyperlipidemia ; [facility] Essential hypertension [place] [address] Social History Tobacco Use Types Packs/Day Years [...] Name Priority Date/Time Associated Diagnosis Comme nts CBC AND DIFFERENTIAL Routine 08/28/2019 8:33 Essential hyperte nsion Results for this PANEL AM CDT procedure are i n the results section. LIPID PANEL AND Routine 08/28/2019 8:33 Screening for Results for this DIRECT LDL(IF AM CDT hyperlipidemia procedure ar e in NEEDED) the results section. COMPLETE BLOOD Routine 08/28/2019 8:33 Essential hypertension Results for this COUNT-W/DIFF AM CDT procedure are i n the results section. BASIC METABOLIC Routine 08/28/2019 8:33 Essential hypertension Results for this PANEL AM CDT procedure are i n the results section. TSH, SENSITIVE (WITH Routine 08/28/2019 8:33 Essential hyperte nsion Results for this REFLEX) AM CDT procedure are i n the results section. documented in this encounter Results Complete Blood Count-W/Diff (08/28/2019 8:33 AM CDT) P athologist Signature WBC 7.0 3.5 - 10.5 08/28/2019 [facility] x10(9)/L 8:39 AM CDT LABORATORY RBC 4.76 3.90 - 08/28/2019 [facility] 5.03 8:39 AM CDT LABORATORY x10(12)/L Hemoglobin 13.6 12.0 - 08/28/2019 [facility] 15.5 g/dL 8:39 AM CDT LABORATORY HCT 41.5 34.9 - 08/28/2019 [facility] 44.5 % 8:39 AM CDT LABORATORY MCV 87.2 80.0 - 08/28/2019 [facility] 100.0 fL 8:39 AM CDT LABORATORY MCH 28.6 27.6 - 08/28/2019 [facility] 33.3 pg 8:39 AM CDT LABORATORY MCHC 32.8 31.5 - 08/28/2019 [facility] 35.2 g/dL 8:39 AM CDT LABORATORY RDW 14.1 11.9 - 08/28/2019 [facility] 15.5 % 8:39 AM CDT LABORATORY Platelets 239 150 - 450 08/28/2019 [facility] x10(9)/L 8:39 AM CDT LABORATORY Neutrophil 3.8 1.7 - 7.0 08/28/2019 [facility] Absolute 10(9)/L 8:39 AM CDT LABORATORY Lymphocyte 2.3 1.0 - 4.8 08/28/2019 [facility] Absolute 10(9)/L 8:39 AM CDT LABORATORY Monocytes 0.6 0.2 - 0.9 08/28/2019 [facility] Absolute 10(9)/L 8:39 AM CDT LABORATORY Eosinophil 0.2 0.0 - 0.5 08/28/2019 [facility] Absolute 10(9)/L 8:39 AM CDT LABORATORY Basophil 0.1 0.0 - 0.3 08/28/2019 [facility] Absolute 10(9)/L 8:39 AM CDT LABORATORY Immature Gran % 0.1 0.0 - 0.5 08/28/2019 [facility] % 8:39 AM CDT LABORATORY Specimen Anatomical Collection Method / Collection Time Recei doc Time (Source) Location / Volume Laterality Blood Venipuncture / 08/28/2019 8:33 08/28/2019 8:33 Unknown AM CDT AM CDT Shannan Matthews DO LAB_1 Performing Organization Address City/State/ZIP Code Phon e Number [facility] [address] [facility] [place] [address] Basic Metabolic Panel (08/28/2019 8:33 AM CDT) P athologist Signature Sodium 140 136 - 145 08/28/2019 [place] mmol/L 3:03 PM CDT LABORATORY Potassium 4.3 3.5 - 5.1 08/28/2019 [place] mmol/L 3:03 PM CDT LABORATORY Chloride 103 98 - 109 08/28/2019 [place] mmol/L 3:03 PM CDT LABORATORY CO2 26 20 - 29 08/28/2019 [place] mmol/L 3:03 PM CDT LABORATORY Anion Gap 11 7 - 16 08/28/2019 [place] mmol/L 3:03 PM CDT LABORATORY Calcium 9.6 8.4 - 10.4 08/28/2019 [place] mg/dL 3:03 PM CDT LABORATORY BUN 12 7 - 26 08/28/2019 [place] mg/dL 3:03 PM CDT LABORATORY Creatinine 0.80 0.55 - 08/28/2019 [place] 1.02 mg/dL 3:03 PM CDT LABORATORY GFR, Estimated >60 >60 08/28/2019 [place] mL/min/1.7 3:03 PM CDT LABORATORY 3m2 GFR, Est If >60 >60 08/28/2019 [place] mL/min/1.7 3:03 PM CDT LABORATORY Kyrgyz 3m2 Glucose 91 70 - 100 08/28/2019 [place] mg/dL 3:03 PM CDT LABORATORY Comment: The given reference range is fo r the fasting state. Non-fasting reference range for glucose is 70 - 180 mg/dL. Hours Fasting 12 08/28/2019 3:03 PM CDT [facility] Specimen Anatomical Collection Method / Collection Time Recei doc Time (Source) Location / Volume Laterality Blood Venipuncture / 08/28/2019 8:33 08/28/2019 8:33 Unknown AM CDT AM CDT Shannan Matthews LAB_1 Performing Organization Address City/State/ZIP Code Phon e Number [facility] [address] [place] [address] [facility] [address] [place] [address], [facility] TSH with Free T4 (if TSH Abnormal) (08/28/2019 8:33 AM CDT) athologist Signature TSH, Reflex 2.08 0.30 - 4.50 08/28/2019 [facility] uIU/mL 3:56 PM CDT LABORATORY Specimen Anatomical Collection Method / Collection Time Recei doc Time (Source) Location / Volume Laterality Blood Venipuncture / 08/28/2019 8:33 08/28/2019 8:33 Unknown AM CDT AM CDT Narrative [facility] - 08/28/2019 3:56 P M CDT Lab will automatically reflex to Free T4 when TSH results are <0.30 uIU/mL or >4.50 mIU/mL. Shannan A Cassie [place] LAB_1 Performing Organization Address City/State/ZIP Code Phon e Number [facility] [address] [place] [address] (ABNORMAL) Lipid Panel - LDLD If Trig High (08/28/2019 8:33 AM CDT) [facility] gist Method Time Signature Cholesterol 214 (H) 0 - 199 08/28/2019 [place] mg/dL 3:03 PM CDT LABORATORY Triglyceride 364 (H) <=149 08/28/2019 [place] mg/dL 3:03 PM CDT LABORATORY HDL Cholesterol 39 (L) >=40 08/28/2019 [place] mg/dL 3:03 PM CDT LABORATORY LDL, Calculated 102 <130 08/28/2019 [place] mg/dL 3:03 PM CDT LABORATORY Non HDL Chol, 175 mg/dL 08/28/2019 [place] Calculated 3:03 PM CDT LABORATORY Cholesterol/HDL 5.5 08/28/2019 [place] Ratio 3:03 PM CDT LABORATORY Hours Fasting 12 08/28/2019 [facility] 3:03 PM CDT LABORATORY Specimen Anatomical Collection Method / Collection Time Recei doc Time (Source) Location / Volume Laterality Blood Venipuncture / 08/28/2019 8:33 08/28/2019 8:33 Unknown AM CDT AM CDT Shannan Matthews DO LAB_1 Performing Organization Address City/State/ZIP Code Phon e Number [facility] [address] [place] [address] [facility] [address] [place] [address], [facility] documented in this encounter Visit Diagnoses Diagnosis Screening for hyperlipidemia Screening for lipoid disorders Essential hypertension (HRC) Unspecified essential hypertension documented in this encounter Care Teams Handkerchief Sample Clerk Relationship Specialty Start Date End Date Needs Pcp, Assignment PCP - General 09/07/18 10/12/19 [place] [address] documented as of this encounter
--- OUTSIDE RECORDS SUMMARY | 2022-04-25 22:33 | XMS_ITS | Encounter Summary ---
:1985 Author Organization [facility] Address [address] [place] [address] Care Team Providers Name Role Phone Needs Pcp, Assignment Primary Care Provider Reason for Referral Procedure/Equipment (Routine) - Incomplete Specialty Diagnoses / Procedures Referred By Contact Refer red To Contact Diagnoses Bicornate uterus complicating , first trimester Lurdes Cheung DO Procedures US OB Follow-Up For Growth Single (Includes YENNY) 1515 [facility] 200 [place] [address] Referral ID Status Reason Start Date Expiration Date Visits V isits Requested Authorized [id number] Incomplete 12/19/2018 03/19/2020 10 10 Reason for Visit Reason Comments Routine Visit Encounter Details Date Type Department Care Team Description 12/19/2018 Routine [place] 1515 Maria Esther Stone MD 1515 [facility] 200 [place] [id number] Routine Obstetrics/Gynecolog Lurdes Cheung DO 1515 [facility] 200 [place] [id number] Visit y 1515 [facility]. [place] [id number] Social History Tobacco Use Types Packs/Day Years Used Date Smoking Tobacco: Never Smokeless Tobacco: Never Alcohol Use Standard Drinks/Week Comments Not Currently 0 (1 standard drink = 0.6 oz pure alcoho l) 2/week Sex Assigned at Date Recorded Not on file documented as of this encounter Last Filed Vital Signs Vital Sign Reading Time Taken Comments Blood Pressure 116/70 12/19/2018 11:27 AM CDT Pulse - - Temperature - - Respiratory Rate - - Oxygen Saturation - - Inhaled Oxygen Concentration - - Weight 86.2 kg (190 lb) 12/19/2018 11:27 AM CDT Height - - Body Mass Index 28.89 06/19/2018 3:35 PM TABLE SETTER documented in this encounter Progress Notes Lurdes Cheung DO - 12/19/2018 11:30 AM CDT VISIT Patient reports intermittent contractions. Good movement Is considering sterilization , patient aware will need approval and may need to be completed a different hospital. Growth ultrasound at next visit due to bicornuate uterus. Follow-up in 2 weeks documented in this encounter Plan of Treatment Not on filedocumented as of this encounter Results US OB Follow-Up For Growth Single (Includes YENNY) (01/04/2019 10:13 AM CDT) Anatomical Region Laterality Modality Pelvis Ultrasound Study GA Study Date Study CHERI Working CHERI (Source) W eight (Method) 3301 g (Hadlock 1984 (BPD, HC, AC, FL) )3358 g (Salvador dlock 1984 (AC, FL) )3336 g (Hadloc k 1984 (BPD, AC, FL) )3281 g (Salvador dlock 1984 (HC, AC, FL) )3519 g (Salvador dlock 1983 (AC) )3330 g (Hadloc k 1983 (HC, AC) )3353 g (Shepar d 1981 (BPD, AC) ) Result Name Value Comments FHR 157 bpm GA by US Calc 257 days 257 CI 79.32 % FL/BPD 77.33 % FL/AC 20.32 % HC/AC .95 BPD 9.13 cm 260 HC 32.92 cm 262 FL 7.06 cm 253 AC 34.75 cm 271 YENNY 14.11 cm Specimen (Source) Anatomical Collection Method Collection Time Re ceived Time Location / / Volume Laterality 01/04/2019 9:37 AM CDT Impressions 01/04/2019 11:19 AM CDT TECHNIQUE: Limited ultrasound examination was performed for evaluation of growth, amniotic fluid index (YENNY). Type of Gestation: ??Holliday. Presentation: ??Vertex Movement Present: ??Yes Cardiac Rate: ??157 bpm and is regular 4-quadrant YENNY: 14.1 cm. Normal. Q1: 3.3 cm. Q2: 5.5 cm. Q3: 2.3 cm. Q4: 3.1 cm. Placental Position: Posterior . Edge not seen. Cervical Length (cm): ??N/A ??Not visual ized Measurements (Source Hadlock): BPD: ??9.1 cm = 37w0d HC: 32.9 cm = 37w3d AC: ??34.8 cm = 38w5d FL: ??7.1 cm = 36w1d Anatomic Ratios: ??Within normal limits. Abdominal Circumference Percentile: >99 Estimated Weight: ??3301 grams Weight Percentile: 92 Other Findings: None. GA by LMP: ??35w6d GA by Prior US: ??35w6d GA by today's US: ??36w5d CHERI by today's US: ??01/27/2019 IMPRESSION: Single living fetus with vahid [facility] parameters as above. Procedure Note Vineet Montoya MD - 01/04/2019Format ting of this note might be different from the original. IMPRESSION TECHNIQUE: Limited ultrasound examinatio n was performed for evaluation of growth, amniotic fluid index (YENNY). Type of Gestation: Holliday. Presentation: Vertex Movement Present: Yes Cardiac Rate: 157 bpm and is regular 4-quadrant YENNY: 14.1 cm. Normal. Q1: 3.3 cm. Q2: 5.5 cm. Q3: 2.3 cm. Q4: 3.1 cm. Placental Position: Posterior . Edge not seen. Cervical Length (cm): N/A Not visualized Measurements (Source Hadlock): BPD: 9.1 cm = 37w0d HC: 32.9 cm = 37w3d AC: 34.8 cm = 38w5d FL: 7.1 cm = 36w1d Anatomic Ratios: Within normal limits. Abdominal Circumference Percentile: >99 Estimated Weight: 3301 grams Weight Percentile: 92 Other Findings: None. GA by LMP: 35w6d GA by Prior US: 35w6d GA by today's US: 36w5d CHERI by today's US: 01/27/2019 IMPRESSION: Single living fetus with vahid wth parameters as above. Lurdes PACHECO documented in this encounter Visit Diagnoses Diagnosis Bicornate uterus complicating , first trimester Bicornate uterus complicating , first trimester documented in this encounter Care Teams Job Checker Relationship Specialty Start Date End Date Needs Pcp, Assignment PCP - General 09/07/18 10/12/19 [place] [address] documented as of this encounter
--- OUTSIDE RECORDS SUMMARY | 2022-04-25 22:33 | XMS_ITS | Encounter Summary ---
:1985 Author Organization [employer] Address [address] [place] [address] Care Team Providers Name Role Phone Needs Pcp, Assignment Primary Care Provider Reason for Visit Reason Comments Routine Visit Encounter Details Date Type Department Care Team Description 01/08/2019 Routine [place] 1515 Laisha Huitron Obstetrics/Gynecolog MD Tracey Visit y [address] [place], [place] [address] [address] [place] [address] Social History Tobacco Use Types Packs/Day Years Used Date Smoking Tobacco: Never Smokeless Tobacco: Never Alcohol Use Standard Drinks/Week Comments Not Currently 0 (1 standard drink = 0.6 oz pure alcoho l) 2/week Sex Assigned at Date Recorded Not on file documented as of this encounter Last Filed Vital Signs Vital Sign Reading Time Taken Comments Blood Pressure 102/80 01/08/2019 1:04 PM CDT Pulse - - Temperature - - Respiratory Rate - - Oxygen Saturation - - Inhaled Oxygen Concentration - - Weight 87.5 kg (193 lb) 01/08/2019 1:04 PM CDT Height - - Body Mass Index 29.35 06/19/2018 3:35 PM SENIOR INTEGRATION DEVELOPER documented in this encounter Patient Instructions Patient InstructionsLaisha Huitron MD - 01/08/2019 1:15 PM CDT Learning About When to Call Your Doctor During (After 20 Weeks) Your Care Instructions It's common to have concerns about what might be a problem during . Although most women don't have any serious problems, it's important to know when to call your doctor if you have certain symptoms or signs of labor. These are general suggestions. Your doctor may give you some more information about when to call. When to call your doctor (after 20 weeks) Call anytime you think you may need emergency care. For example, call if: ?? You have severe vaginal bleeding. ?? You have sudden, severe pain in your belly. ?? You passed out (lost consciousness). ?? You have a seizure. ?? You see or feel the umbilical cord. ?? You think you are about to deliver your baby and can't make it safely to the hospital. Call your doctor now or seek immediate medical care if: ?? You have vaginal bleeding. ?? You have belly pain. ?? You have a fever. ?? You have symptoms of preeclampsia, such as: ? Sudden swelling of your face, hands, or feet. ? New vision problems (such as dimness, blurring, or seeing spots). ? A severe headache. ?? You have a sudden release of fluid from your vagina. (You think your water broke.) ?? You think that you may be in labor. This means that you've had at least 6 contractions in an hour. ?? You notice that your baby has stopped moving or is moving much less than normal. ?? You have symptoms of a urinary tract infection. These may include: ? Pain or burning when you urinate. ? A frequent need to urinate without being able to pass much urine. ? Pain in the flank, which is just below the rib cage and above the waist on either side of the back. ? Blood in your urine. Watch closely for changes in your health, and be sure to contact your doctor if: ?? You have vaginal discharge that smells bad. ?? You have skin changes, such as: ? A rash. ? Itching. ? Yellow color to your skin. ?? You have other concerns about your . If you have labor signs at 37 weeks or more If you have signs of labor at 37 weeks or more, your doctor may tell you to call when your labor becomes more active. Symptoms of active labor include: ?? Contractions that are regular. ?? Contractions that are less than 5 minutes apart. ?? Contractions that are hard to talk through. Follow-up care is a chamorro part of your treatment and safety. Be sure to make and go to all appointments, and call your doctor if you are having problems. It's also a good idea to know your test results and keep a list of the medicines you take. Where can you learn more? 1. Go to https://[employer]One/[employer] or [employer] 2. Enter N531 in the search box. Current as of: January 25, 2018 Content Version: 12.0 ?? 8244-8240 [employer]. Care instructions adapted under license by your healthcare professional. If you have questions about a medical condition or this instruction, always ask your healthcare professional. [employer] disclaims any warranty or liability for your use of this information. documented in this encounter Progress Notes Laisha Huitron MD - 01/08/2019 1:15 PM CDT GBS last week negative. C/o below noted. Reviewed reasons to call/come in. Her FERRARA is no different than earlier in the ; she does have some dizziness but not visual changes. No N/V/RUQ pain. Had term PROM with her first, unsure what labor feels like. Cervix today 2-3/60%/-2, soft, mid. Likely prodromal labor. RTC as scheduled this week, sooner prn labor or ROM. 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
--- OUTSIDE RECORDS SUMMARY | 2022-04-25 22:33 | XMS_ITS | Encounter Summary ---
:1985 Author Organization [employer] Address [address] [place] [address] Care Team Providers Name Role Phone Needs Pcp, Assignment Primary Care Provider Reason for Visit Reason Comments Routine Visit Encounter Details Date Type Department Care Team Description 12/28/2018 Routine [place] 1515 Wanda Guallpa Routi ne Obstetrics/Gynecolog MD Visit y 1515 [facility] [address] [address] [place] [phone] Social History Tobacco Use Types Packs/Day Years Used Date Smoking Tobacco: Never Smokeless Tobacco: Never Alcohol Use Standard Drinks/Week Comments Not Currently 0 (1 standard drink = 0.6 oz pure alcoho l) 2/week Sex Assigned at Date Recorded Not on file documented as of this encounter Last Filed Vital Signs Vital Sign Reading Time Taken Comments Blood Pressure 128/74 12/28/2018 4:08 PM CDT Pulse - - Temperature - - Respiratory Rate - - Oxygen Saturation - - Inhaled Oxygen Concentration - - Weight 89.6 kg (197 lb 9.6 oz) 12/28/2018 4:08 PM CDT Height - - Body Mass Index 30.04 06/19/2018 3:35 PM SUPERVISOR METAL CANS documented in this encounter Progress Notes Wanda Guallpa MD - 12/28/2018 4:15 PM CDT VISIT Patient was seen a few days ago at [facility] due to headache. She was sent to rule out preeclampsia. Her blood pressures and had labs were normal. Patient states that her headache is somewhat betterbut still present. I have given a prescription for Fioricet. Today is . She will work tomorrow rest over the weekend and hopefully her headache will have improved. If she still has problems with headache next week we may need to take her off of work. Patient was carries about the position of her baby so I did a office transabdominal ultrasound whichshows the fetus to be in the oblique lie with the head in the left lower quadrant, the back down andthe buttocks in the upper uterus. She still has adequate time for baby to move into a normal po sition. Follow-up in 1 weeks documented in this encounter Plan of Treatment Not on filedocumented as of this encounter Visit Diagnoses Diagnosis Headaches - Primary Bicornate uterus complicating , first trimester documented in this encounter Care Teams X Ray Developing Machine Operator Relationship Specialty Start Date End Date Needs Pcp, Assignment PCP - General 09/07/18 10/12/19 [place] [address] documented as of this encounter
--- OUTSIDE RECORDS SUMMARY | 2022-04-25 22:33 | XMS_ITS | Encounter Summary ---
:1985 Author [facility] Address [address] [place] [address] Care Team Providers Name Role Phone Needs Pcp, Assignment Primary Care Provider Reason for Visit Auth/Cert Specialty Diagnoses / Procedures Referred By Contact Refer red To Contact Referral ID Status Reason Start Date Expiration Date Visits Requ ested Visits Authorized [id number] 1 1 Encounter Details Date Type Department Care Team Description 01/31/2019 Home Care Visit PN MATERNAL CHILD Mikaela, [facility] MICHAEL WilliamINTERNSHIP COORDINATOR [address] [place] [address] Social History Tobacco Use Types Packs/Day Years Used Date Smoking Tobacco: Never Smokeless Tobacco: Never Alcohol Use Standard Drinks/Week Comments Not Currently 0 (1 standard drink = 0.6 oz pure alcoho l) 2/week Sex Assigned at Date Recorded Not on file documented as of this encounter Last Filed Vital Signs Vital Sign Reading Time Taken Comments Blood Pressure 142/78 01/31/2019 11:10 AM CDT Pulse - - Temperature - - Respiratory Rate - - Oxygen Saturation - - Inhaled Oxygen Concentration - - Weight - - Height - - Body Mass Index - - documented in this encounter Plan of Treatment Scheduled Referrals Name Type Priority Associated Diagnoses Order S chedule Home Care OB and Referral Routine Routine Order ed: 01/29/2019 follow-up documented as of this encounter Visit Diagnoses Not on filedocumented in this encounter Care Teams Activity Manager Relationship Specialty Start Date End Date Needs Pcp, Assignment PCP - General 09/07/18 10/12/19 [place] [address] documented as of this encounter
--- OUTSIDE RECORDS SUMMARY | 2022-04-25 22:33 | XMS_ITS | Encounter Summary ---
:1985 Author Organization [employer] Address [address] [address] Care Team Providers Name Role Phone Needs Pcp, Assignment Primary Care Provider Reason for Visit Reason Comments Concerns Encounter Details Date Type Department Care Team Description 01/08/2019 Nurse Triage [place] 151Wanda Lemos, Concerns Obstetrics/Gynecolog y 1515 [facility] . 1515 [facility] [place] [place] [address] [address] [place] [phone] (Wo rk) Social History Tobacco Use Types Packs/Day Years Used Date Smoking Tobacco: Never Smokeless Tobacco: Never Alcohol Use Standard Drinks/Week Comments Not Currently 0 (1 standard drink = 0.6 oz pure alcoho l) 2/week Sex Assigned at Date Recorded Not on file documented as of this encounter Nursing Notes Lavonne Mohr, MICHAEL - 01/08/2019 12:31 PM CDT Pt 36 wks with many concerns. Has pressure in the low abdomen that feels like menstrual cramps. It is intermittent and rated a 7/10. Had contractions last night but not today. Has intermittentback pain rated a 5-6/10. Has a headache on and off rated 5/10 and this is not a new sx. She also feels very spacey. Given appt in 1 hour. Problem list reviewed as related to this call. Reason for Disposition ? ? Intermittent lower abdominal pain lasting > 24 hours Protocols used: - ABDOMINAL PAIN GREATER THAN 20 WEEKS [id number] documented in this encounter Plan of Treatment Not on filedocumented as of this encounter Visit Diagnoses Not on filedocumented in this encounter Care Teams Supervisor Bakery Sanitation Relationship Specialty Start Date End Date Needs Pcp, Assignment PCP - General 09/07/18 10/12/19 [place] [address] documented as of this encounter
--- OUTSIDE RECORDS SUMMARY | 2022-04-25 22:33 | XMS_ITS | Encounter Summary ---
:1985 Author Organization [facility] Address [address] [place] [address] Care Team Providers Name Role Phone Needs Pcp, Assignment Primary Care Provider Encounter Details Date Type Department Care Team Description 05/31/2019 Notes/Orders [facility]-UTILITY WORKER DRIVER S, [address] [facility], [address] [place] [address] [address] [place] [address] [place], [place] [phone] (Wo rk) Social History Tobacco Use Types [...] on filedocumented in this encounter Care Teams Sole Splitter Relationship Specialty Start Date End Date Needs Pcp, Assignment PCP - General 09/07/18 10/12/19 [place], [place] [address] documented as of this encounter
--- OUTSIDE RECORDS SUMMARY | 2022-04-25 22:33 | XMS_ITS | Encounter Summary ---
:1985 Author Organization [facility] Address [address] [place] [address] Care Team Providers Name Role Phone Needs Pcp, Assignment Primary Care Provider Reason for Visit Reason Comments Concerns Encounter Details Date Type Department Care Team Description 12/18/2018 Telephone [place] 1510 Wanda Guallpa MD Concerns Obstetrics/Gynecolog y 1515 [facility] 1515 [facility] . [address] [place] [address] [place] [phone] (Wo rk) Social History Tobacco Use Types Packs/Day Years Used Date Smoking Tobacco: Never Smokeless Tobacco: Never Alcohol Use Standard Drinks/Week Comments Not Currently 0 (1 standard drink = 0.6 oz pure alcoho l) 2/week Sex Assigned at Date Recorded Not on file documented as of this encounter Nursing Notes Wanda Montoya RN - 12/18/2018 4:20 PM CDT Medications with Triage Reference SYMPTOMS: Patient called. Diarrhea and nausea since yesterday. Feeling sick to her stomach. Denies vomiting. Staying hydrated. Diarrhea 4x per day. Denies fever. Diarrhea medication use during : Immodium is OK for use. Advised good hydration ie: Gatorade, Powerade, Vitamin Water, Pedialyte. Eat bland foods. Advised to call back if any of the following occur: symptoms worsen, any other questions or concerns. Be seen in FP if symptoms worsen or do not resolve. Patient/Caller agrees with plan and denies additional questions. Other Patient Information: 33 w 3 d. documented in this encounter Plan of Treatment Not on filedocumented as of this encounter Visit Diagnoses Not on filedocumented in this encounter Care Teams Bingo Caller Relationship Specialty Start Date End Date Needs Pcp, Assignment PCP - General 09/07/18 10/12/19 [place] [address] documented as of this encounter
--- OUTSIDE RECORDS SUMMARY | 2022-04-25 22:33 | XMS_ITS | Encounter Summary ---
:1985 Author Organization [employer] Address [address] [place] [address] Care Team Providers Name Role Phone Needs Pcp, Assignment Primary Care Provider Reason for Visit Reason Comments Routine Visit Encounter Details Date Type Department Care Team Description 01/04/2019 Routine [place] 1515 Wanda Guallpa Routi ne Obstetrics/Gynecolog MD Visit y 1515 [facility] [address] [address] [place] [phone] Social History Tobacco Use Types Packs/Day Years Used Date Smoking Tobacco: Never Smokeless Tobacco: Never Alcohol Use Standard Drinks/Week Comments Not Currently 0 (1 standard drink = 0.6 oz pure alcoho l) 2/week Sex Assigned at Date Recorded Not on file documented as of this encounter Last Filed Vital Signs Vital Sign Reading Time Taken Comments Blood Pressure 110/70 01/04/2019 10:41 AM CDT Pulse - - Temperature - - Respiratory Rate - - Oxygen Saturation - - Inhaled Oxygen Concentration - - Weight 87.3 kg (192 lb 8 oz) 01/04/2019 10:41 AM CDT Height - - Body Mass Index 29.27 06/19/2018 3:35 PM FRONT END DRIVER documented in this encounter Progress Notes Wanda Guallpa MD - 01/04/2019 10:45 AM CDT VISIT Patient reports headache is less, come and go now. Lots of pelvic pressure and back pain. Patient has a flexible job situation and can go home if she needs to. GBS collected. Discussed when to come to hospital for labor or rupture of membranes. Follow-up in 1 week. documented in this encounter Plan of Treatment Not on filedocumented as of this encounter Procedures Procedure Name Priority Date/Time Associated Diagnosis Comme nts GROUP B STREP Routine 01/04/2019 11:31 screening Res ults for this SCREEN (OB PTS) AM CDT for streptococcus B proce dure are in the results section. documented in this encounter Results GROUP B STREP SCREEN (OB PTS) (01/04/2019 11:31 AM CDT) [facility] Method Time Signature Group B Strep No Group B 01/07/2019 [facility] Screen Streptococcus 7:23 AM CDT HOSPITAL Isolated Specimen Anatomical Collection Method Collection Time Receive d Time (Source) Location / / Volume Laterality Swab (Source PERINEAL SWAB / Non-blood 01/04/2019 11:31 01/05/20 19 3:00 Required) Unknown Collection / AM CDT PM CDT Unknown Wanda Guallpa MD LAB_1 Performing Organization Address City/State/ZIP Code Phon e Number [address] [address] documented in this encounter Visit Diagnoses Diagnosis screening for streptococcus B - Primary screening for Streptococcus B Bicornate uterus complicating , first trimester documented in this encounter Care Teams Garnett Feeder Relationship Specialty Start Date End Date Needs Pcp, Assignment PCP - General 09/07/18 10/12/19 [place] [address] documented as of this encounter
--- OUTSIDE RECORDS SUMMARY | 2022-04-25 22:33 | XMS_ITS | Encounter Summary ---
:1985 Author Organization [facility] Address [address] [place] [address] Care Team Providers Name Role Phone Needs Pcp, Assignment Primary Care Provider Encounter Details Date Type Department Care Team Description 09/11/2019 marianna Monreal [phone] Social History Tobacco Use Types Packs/Day Years Used Date Smoking Tobacco: Never Smokeless Tobacco: Never Alcohol Use Standard Drinks/Week Comments Not Currently 0 (1 standard drink = 0.6 oz pure alcoho l) 2/week Sex Assigned at Date Recorded Not on file documented as of this encounter Progress Notes FAMILY MEDICINEMARIANNA PROVIDER - 09/11/2019 12:00 AM CDT marianna Treatment Plan Diagnosis Urinary Tract Infection Visit Date September 11, 2019 Estefania Mckeon Date of : 85 Provider Debby Jerome, Nurse Practitioner Note From Provider Amilcar Mac, please follow the treatment plan I've created just for you! Request a Call Back with any questions or concerns...we are 'open' 13/12. Be well!Debby HALAL MEAT PACKER-C Treatment Plan Since you have a bacterial infection, let's try an antibiotic. I sent a prescriptionto [facility] . I've also listed a few of the best ways to soothe your discomfortand some additional self-care tipsto get you on the road to feeling better.If your symptoms don't improve after 3 days, or if you haveq uestions, please select Help to Request a Call Back andwe'll talk about your next steps for free. Order(s) Macrobid 100 mg capsule Take 1 capsule oral every twelve hours with meals for 5 days Note: Take on a full stomach. Refills: None Sent To: [facility] [address] [place], [place] [address] Treatment Plan Self Care Tip Topics Warm Packs Drink Water Avoid Caffeine Pain Relief with AZO Yeast Infection Next Steps What to Expect If you follow the recommendations I made on the Treatment tab, your symptomsshould improve in about 3 days. If your symptoms don'timprove after 3 days, or if you have questions, please select Help toRequest a Call Back and we'll helpdetermine your next step for free. What to Watch Out For Give us a call if you experience: ??? High fever ??? Shaking chills ??? Worsening pain with urination ??? Severe pain in your back, abdomen or pelvis My Conditions, Orders, Allergies as of September 11, 2019 Standard condition list High Blood Pressure (Hypertension) Current orders Macrobid (nitrofurantoin monohyd/m-cryst) Allergies Benadryl Allergy (diphenhydramine HCl), oral amoxicillin (amoxicillin), oral Purple Blue Bo Information [employer] We are an online clinic open 13/12. If you have any questions or comments about this visit, please call or email [email or web address]. documented in this encounter Plan of Treatment Not on filedocumented as of this encounter Visit Diagnoses Not on filedocumented in this encounter Care Teams Food Safety Scientist Relationship Specialty Start Date End Date Needs Pcp, Assignment PCP - General 09/07/18 10/12/19 [place] [address] documented as of this encounter
--- OUTSIDE RECORDS SUMMARY | 2022-04-25 22:33 | XMS_ITS | Encounter Summary ---
:1985 Author Organization [employer] Address [address] [place] [address] Care Team Providers Name Role Phone Needs Pcp, Assignment Primary Care Provider Reason for Visit Reason Comments LABOR Encounter Details Date Type Department Care Team Description 01/15/2019 Nurse Triage Jan Nurse Line Needs Pcp, Assignment LABOR [address] [place] [address] [place] [address] [phone] Social History Tobacco Use Types Packs/Day Years Used Date Smoking Tobacco: Never Smokeless Tobacco: Never Alcohol Use Standard Drinks/Week Comments Not Currently 0 (1 standard drink = 0.6 oz pure alcoho l) 2/week Sex Assigned at Date Recorded Not on file documented as of this encounter Nursing Notes Avis Simental RN - 01/15/2019 8:15 AM CDT Reason for Disposition ? ? [1] History of prior delivery (multipara) AND [2] contractions < 10 minutes apart AND [3] present 1 hour Protocols used: - [id number] Patient reports labor symptoms with contractions currently every 7 minutes apart lasting 45 seconds to 1 minute. Contractions started about 4 hours ago and have been at this length and frequency for 3 hours. Feels like my back is on fire as well. No bleeding, no leaking fluids though did notice a larger amount of mucusy discharge. Baby moving normally or more active than normal especially after contractions. Pt 37w3d, patient's second delivery. Per PN protocol, advised to go to [facility] for multip with contractions 5-7 minutes lasting 30 seconds for more than an hour. Told pt no need to wright with frequency. Call placed to L&D to warn of pt arrival. Problem list reviewed as related to this call. documented in this encounter Plan of Treatment Not on filedocumented as of this encounter Visit Diagnoses Not on filedocumented in this encounter Care Teams Clinic Director Relationship Specialty Start Date End Date Needs Pcp, Assignment PCP - General 09/07/18 10/12/19 [place] [address] documented as of this encounter
--- OUTSIDE RECORDS SUMMARY | 2022-04-25 22:33 | XMS_ITS | Encounter Summary ---
:1985 Author Organization [employer] Address [address] [place] [address] Care Team Providers Name Role Phone Needs Pcp, Assignment Primary Care Provider Reason for Visit Reason Comments Routine Visit Encounter Details Date Type Department Care Team Description 01/18/2019 Routine [place] 1515 Wanda Guallpa Routi ne Obstetrics/Gynecolog MD Visit y 1515 [facility] [address] [address] [place] [phone] Social History Tobacco Use Types Packs/Day Years Used Date Smoking Tobacco: Never Smokeless Tobacco: Never Alcohol Use Standard Drinks/Week Comments Not Currently 0 (1 standard drink = 0.6 oz pure alcoho l) 2/week Sex Assigned at Date Recorded Not on file documented as of this encounter Last Filed Vital Signs Vital Sign Reading Time Taken Comments Blood Pressure 128/82 01/18/2019 1:39 PM CDT Pulse - - Temperature - - Respiratory Rate - - Oxygen Saturation - - Inhaled Oxygen Concentration - - Weight 91.5 kg (201 lb 12.8 oz) 01/18/2019 1:39 PM CDT Height - - Body Mass Index 30.68 06/19/2018 3:35 PM CITRUS PEELER documented in this encounter Progress Notes Wanda Guallpa MD - 01/18/2019 1:45 PM CDT VISIT Patient reports still has contractions. Treated for UTI at Family visit 2 days ago. Had to switch from Macrobid to Keflex after hives developed. Cervix was 2 cm at Family visit. Follow-up in 1 weeks. 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
--- OUTSIDE RECORDS SUMMARY | 2022-04-25 22:33 | XMS_ITS | Encounter Summary ---
:1985 Author Organization [facility] Address [address] [place] [address] Care Team Providers Name Role Phone Needs Pcp, Assignment Primary Care Provider Reason for Visit Reason Comments Paperwork Encounter Details Date Type Department Care Team Description 05/03/2019 Telephone [place] 1515 Wanda Guallpa MD Paperwork Obstetrics/Gynecolog y [facility] [place] [facility] [facility] [address] [place] [address] [place] [phone] (Wo rk) Social History Tobacco Use Types Packs/Day Years Used Date Smoking Tobacco: Never Smokeless Tobacco: Never Alcohol Use Standard Drinks/Week Comments Not Currently 0 (1 standard drink = 0.6 oz pure alcoho l) 2/week Sex Assigned at Date Recorded Not on file documented as of this encounter Nursing Notes Darlene Casanova, RN - 05/03/2019 2:08 PM CST [employer] calling to see if provider has received and completed disability paperwork that was faxed over yesterday. Communication Studies Professor spoke with nurse there and no paperwork found. They will resend this. Fax number given and advised to put providers name on fax for her to fill out. ADJUSTER documented in this encounter Plan of Treatment Not on filedocumented as of this encounter Visit Diagnoses Not on filedocumented in this encounter Care Teams Clerk Of Court Relationship Specialty Start Date End Date Needs Pcp, Assignment PCP - General 09/07/18 10/12/19 [place] [address] documented as of this encounter
--- OUTSIDE RECORDS SUMMARY | 2022-04-25 22:33 | XMS_ITS | Encounter Summary ---
:1985 Author Organization [employer] Address [address] [place] [address] Care Team Providers Name Role Phone Needs Pcp, Assignment Primary Care Provider Reason for Visit Reason Comments APPOINTMENT REQUEST Encounter Details Date Type Department Care Team Description 12/27/2018 Telephone [place] 1515 Wanda Guallpa MD APPOINTMENT REQUEST Obstetrics/Gynecolog y 1515 [facility] 1515 [facility] . [address] [place] [address] [place] [phone] (Wo rk) Social History Tobacco Use Types Packs/Day Years Used Date Smoking Tobacco: Never Smokeless Tobacco: Never Alcohol Use Standard Drinks/Week Comments Not Currently 0 (1 standard drink = 0.6 oz pure alcoho l) 2/week Sex Assigned at Date Recorded Not on file documented as of this encounter Nursing Notes Louisa Catalan RN - 12/27/2018 3:23 PM CDT Pt calling to schedule a follow-up visit advised to do during visit to L&D triage. Pt was seen for headache, see triage note dated 12/26/18. Appointment scheduled, pt states understanding and has no further questions. Future Appointments Date Time Provider Department Center 12/28/2018 4:15 PM Wanda Guallpa MD [facility] documented in this encounter Plan of Treatment Not on filedocumented as of this encounter Visit Diagnoses Not on filedocumented in this encounter Care Teams Hardware Developer Relationship Specialty Start Date End Date Needs Pcp, Assignment PCP - General 09/07/18 10/12/19 [place] [address] documented as of this encounter
--- OUTSIDE RECORDS SUMMARY | 2022-04-25 22:33 | XMS_ITS | Encounter Summary ---
:1985 Author Organization [employer] Address [address] [place] [address] Care Team Providers Name Role Phone Needs Pcp, Assignment Primary Care Provider Reason for Visit Reason Comments HEADACHE,MIGRAINE Encounter Details Date Type Department Care Team Description 08/22/2019 Nurse Triage [place] [facility] Needs Pcp, HEADACHE,TRACE SOHAIL Medicine Assignment [address] [place] [address] [place], [place] [phone] Social History Tobacco Use Types Packs/Day Years Used Date Smoking Tobacco: Never Smokeless Tobacco: Never Alcohol Use Standard Drinks/Week Comments Not Currently 0 (1 standard drink = 0.6 oz pure alcoho l) 2/week Sex Assigned at Date Recorded Not on file documented as of this encounter Nursing Notes Carolyn Amado RN - 08/22/2019 10:01 AM CDT Reason for Disposition ? ? Unexplained headache that is present > 24 hours Protocols used: [id number] Spoke to patient. States headache/migraine pain on both temples started 2 weeks ago. Pain 5-6/10 constant and worsens when tylenol/advil wear off. Constant dull ache. Occasional blurry vision has happened twice, 1 time per week lasting until she taked advil/tylenol. Mild nausea constant. Menstruated last week at expected time for expected duration but started to spot for the past 3 days; does not need to use feminine hygience products. Denies , fever, stiff neck, sore throat nor cold Sx. Hxof anemia. Advised per protocol video evaluation and reasons to call back. Verbalized understanding.Problem list reviewed as related to this call. Future Appointments Date Time Provider Department Center 08/22/2019 1:00 PM Shannan Matthews DO [facility] PN [facility] 09/20/2019 4:30 PM Serenity Waters MD [facility] 09/25/2019 1:15 PM Serenity Waters MD [facility] PN [facility] Pete Padron - 08/22/2019 9:46 AM CDT Symptoms Describe your symptoms (if pain, include location): Migraine When did they start? Two weeks Additional comments (related to the above concern): [...] on filedocumented in this encounter Care Teams Distribution Spec Relationship Specialty Start Date End Date Needs Pcp, Assignment PCP - General 09/07/18 10/12/19 [place] [address] documented as of this encounter
--- OUTSIDE RECORDS SUMMARY | 2022-04-25 22:33 | XMS_ITS | Encounter Summary ---
:1985 Author Organization [facility] Address [address] [place] [address] Care Team Providers Name Role Phone Needs Pcp, Assignment Primary Care Provider Reason for Visit Reason Comments LABOR Encounter Details Date Type Department Care Team Description 01/27/2019 Nurse Triage Jan Nurse Line Needs Pcp, Assignment LABOR [address] [place] [address] [place] [address] [phone] Social History Tobacco Use Types Packs/Day Years Used Date Smoking Tobacco: Never Smokeless Tobacco: Never Alcohol Use Standard Drinks/Week Comments Not Currently 0 (1 standard drink = 0.6 oz pure alcoho l) 2/week Sex Assigned at Date Recorded Not on file documented as of this encounter Nursing Notes Chon Cota RN - 01/27/2019 10:07 PM CDT Pt calling who talked to triage earlier today. Began contractions 24 hours ago but they were intermittent. For the last two hours pains have been regular and getting stronger. Pains are 6-10 min apart and now she cannot walk through them. No loss of fluids or bleeding. Baby was active two hours ago and has not paid attention to movement since due to strong contractions. Asked her to come to L and D now. Report called to the unit. Problem list, allergies, and medications reviewed. Reason for Disposition ? ? [1] History of prior delivery (multipara) AND [2] contractions < 10 minutes apart AND [3] present 1 hour Protocols used: - [id number] documented in this encounter Plan of Treatment Not on filedocumented as of this encounter Visit Diagnoses Not on filedocumented in this encounter Care Teams Racking Machine Operator Relationship Specialty Start Date End Date Needs Pcp, Assignment PCP - General 09/07/18 10/12/19 [place] [address] documented as of this encounter
--- OUTSIDE RECORDS SUMMARY | 2022-04-25 22:33 | XMS_ITS | Encounter Summary ---
:1985 Author Organization [employer] Address [address] [place] [address] Care Team Providers Name Role Phone Needs Pcp, Assignment Primary Care Provider Reason for Visit Reason Comments MEDICATION, NOS allergy Encounter Details Date Type Department Care Team Description 01/16/2019 Nurse Triage [place] 1515 Wanda Guallpa, MEDICATIO N, NOS Obstetrics/Gynecolog y MD (allergy) [address] [place] [address] [facility] [address] [place] [address] Social History Tobacco Use Types Packs/Day Years Used Date Smoking Tobacco: Never Smokeless Tobacco: Never Alcohol Use Standard Drinks/Week Comments Not Currently 0 (1 standard drink = 0.6 oz pure alcoho l) 2/week Sex Assigned at Date Recorded Not on file documented as of this encounter Nursing Notes Serenity Mujica RN - 01/16/2019 10:10 AM CDT Message reviewed. Macrobid added to allergy list. Laisha Huitron MD - 01/16/2019 9:23 AM CDT It appears that she tolerated cephalexin earlier in the . This was prescribed again. She should discontinue the macrobid. Laisha Huitron MD 9:24 AM 01/16/2019 Serenity Mujica, RN - 01/16/2019 8:39 AM CDT 37.4 weeks Reason for Disposition ??? Widespread hives Protocols used: [id number] Pt prescribed Macrobid yesterday for UTI. Took one dose last evening. Woke this am with widespread raised rash- upper legs and chest. Pt had been instructed in the past to use Zyrtec so she did take dose of Zyrtec and rash has now subsided. Denies any symptoms at this time. Reason for Call: Medication Problem. Next Steps: Document further recommendations and route to appropriate person or pool. Caller IS expecting a call back from Care Team. Additional Information: Please advise on alternative. Thank you. Forwarding to covering provider. documented in this encounter Plan of Treatment Not on filedocumented as of this encounter Visit Diagnoses Diagnosis Urinary tract infection in mother during third trimester of - Primary documented in this encounter Care Teams Associate Dean Of Women Relationship Specialty Start Date End Date Needs Pcp, Assignment PCP - General 09/07/18 10/12/19 [place] [address] documented as of this encounter
--- OUTSIDE RECORDS SUMMARY | 2022-04-25 22:33 | XMS_ITS | Encounter Summary ---
:1985 Author Organization [facility] Address [address] [place] [address] Care Team Providers Name Role Phone Needs Pcp, Assignment Primary Care Provider Reason for Visit Reason Comments Contraception Encounter Details Date Type Department Care Team Description 05/02/2019 Nurse Triage [place] 1515 Wanda Guallpa MD Contraception Obstetrics/Gynecolog y 1515 [facility] 1515 [facility] . [place] [address] [place] [address] [place] [phone] (Wo rk) Social History Tobacco Use Types Packs/Day Years Used Date Smoking Tobacco: Never Smokeless Tobacco: Never Alcohol Use Standard Drinks/Week Comments Not Currently 0 (1 standard drink = 0.6 oz pure alcoho l) 2/week Sex Assigned at Date Recorded Not on file documented as of this encounter Nursing Notes Serenity Mujica RN - 05/02/2019 4:17 PM CST Message from provider reviewed. Pt has been seriously considering tubal ligation and is ready to discuss surgery. Appt scheduled. Pt will stop OCP's and will use condoms as control option for now. Future Appointments Date Time Provider Department Center 05/10/2019 2:00 PM Serenity Waters MD [facility] RANCE SALES EXECUTIVE Maria Esther Stone MD - 05/02/2019 4:07 PM CST She should not be on estrogen containing medications with migraines with visual problems. She shouldstop the OCPS. Can consider depo provera or progestin only pill, or nexplanon RANCE SALES EXECUTIVE Maryellen Car - 05/02/2019 3:38 PM CST Reason for Disposition ??? Caller has NON-URGENT question and triager unable to answer question Protocols used: CONTRACEPTION - CONTROL PILLS - [id number] Patient calling with questions about current OCP. Starting using Norethin-Eth Estrad Triphasic (ORTHO-NOVUM) 3 weeks ago. 2 weeks ago noted migraine headaches 3X/week with visual changes. Bottom part of vision would become blurry. States experienced migraine headaches as a young child and during the end of . Unsure about visual changes with headaches. Prescribed Fioricet for headaches during , and reports medication did not help symptoms with these recent headaches. In addition notes irregular spotting since starting the pill. Reviewed protocol recommendations and care advice. Will send message to covering provider to advise change in OCP. Patient is due to take next pill at8pm tonight. RN reviewed patient should not take any further pills until she hears back from provider. Also reviewed if missing pills will not be covered against and recommended abstinence orother barrier methods to prevent . Patient verbalizes understanding and agrees with plan. Routed to covering provider to advise. Problem list reviewed as related to this call. RANCE SALES EXECUTIVE documented in this encounter Plan of Treatment Not on filedocumented as of this encounter Visit Diagnoses Not on filedocumented in this encounter Care Teams Co Founder And Director Relationship Specialty Start Date End Date Needs Pcp, Assignment PCP - General 09/07/18 10/12/19 [place] [address] documented as of this encounter
--- OUTSIDE RECORDS SUMMARY | 2022-04-25 22:33 | XMS_ITS | Encounter Summary ---
:1985 Author Organization [employer] Address [address] [place] [address] Care Team Providers Name Role Phone Needs Pcp, Assignment Primary Care Provider Reason for Visit Reason Comments LABOR Encounter Details Date Type Department Care Team Description 01/27/2019 Nurse Triage Jan Nurse Line Needs Pcp, Assignment LABOR [address] [place] [address] [place] [address] [phone] Social History Tobacco Use Types Packs/Day Years Used Date Smoking Tobacco: Never Smokeless Tobacco: Never Alcohol Use Standard Drinks/Week Comments Not Currently 0 (1 standard drink = 0.6 oz pure alcoho l) 2/week Sex Assigned at Date Recorded Not on file documented as of this encounter Nursing Notes Kristina Galarza RN - 01/27/2019 3:53 PM CDT Patient calling in. She is 39 weeks gestation. She began experiencing painful contractions yesterdayaround dinner time, but today, contractions have gotten closer together and are more painful. Contractions are over 10 min apart and vary. Last contraction was 12 min apart from it's previous. Pt states the pain is getting bad. She has to stop in her tracks when ever contraction is felt. Contractions last about 30-40 seconds. Baby is moving well. She denies vaginal bleeding, LOF, and other sx. Home cares discussed with pt. She verbalized understanding. Advised to call back directly if there are further questions, or if these symptoms fail to improve as anticipated or worsen. Problem list reviewed as related to this call. Reason for Disposition ? ? [1] History of prior delivery (multipara) AND [2] contractions > 10 minutes, or for < 1 hour Protocols used: - [id number] documented in this encounter Plan of Treatment Not on filedocumented as of this encounter Visit Diagnoses Not on filedocumented in this encounter Care Teams Multimedia Specialist Relationship Specialty Start Date End Date Needs Pcp, Assignment PCP - General 09/07/18 10/12/19 [place] [address] documented as of this encounter
--- OUTSIDE RECORDS SUMMARY | 2022-04-25 22:33 | XMS_ITS | Encounter Summary ---
:1985 Author Organization [facility] Address [address] [address] Care Team Providers Name Role Phone Shannan Matthews DO Primary Care Provider Reason for Visit Reason Comments VAGINAL BLEEDING Encounter Details Date Type Department Care Team Description 10/13/2019 Nurse Triage [place] Nurse Line Shannan Matthews DO VAGINAL BLEEDING [address] [facility] [address] [place] [address] [place], [place] [phone] (Wo rk) Social History Tobacco Use Types Packs/Day Years Used Date Smoking Tobacco: Never Smokeless Tobacco: Never Alcohol Use Standard Drinks/Week Comments Not Currently 0 (1 standard drink = 0.6 oz pure alcoho l) 2/week Sex Assigned at Date Recorded Not on file documented as of this encounter Nursing Notes Renetta Taylor RN - 10/13/2019 12:43 PM CDT Reason for Disposition ??? SEVERE abdominal pain Additional Information ??? Negative: Shock suspected (e.g., cold/pale/clammy skin, too weak to stand, low BP, rapid pulse) Protocols used: VAGINAL BLEEDING - [id number] Pt is calling to report that she is on day 3 of her period, is having stabbing abd pain with heavy bleeding and is wondering how to treat. States she soaked through a reg tampon in 90min, left a blood trail in her garage. Periods are usually used car make ready worker and last 7-10 days. Abd pain is severe. Denies , dizziness, or weakness. Advised she is seen in the ER now with a high lift driver. She states she is ableto call someone for a ride to the ER. Advised she call 911 if unable to get a ride now or if she is feeling weak at all and she agrees. Reviewed home care recommendations, worsening s&s and when toseek emergency care. Patient verbalizes understanding of instructions/plan. Problem list, allergies, and current meds reviewed. documented in this encounter Plan of Treatment Not on filedocumented as of this encounter Visit Diagnoses Not on filedocumented in this encounter Care Teams Fruit Harvester Machine Operator Relationship Specialty Start Date End Date Shannan Matthews DO PCP - General Family Practice 10/13/19 [address] [place] [address] documented as of this encounter
--- OUTSIDE RECORDS SUMMARY | 2022-04-25 22:33 | XMS_ITS | Encounter Summary ---
:1985 Author [facility] Address [address] [address] Care Team Providers Name Role Phone Needs Pcp, Assignment Primary Care Provider Reason for Referral (Routine) - Incomplete Specialty Diagnoses / Procedures Referred By Contact Refer red To Contact Diagnoses Encounter for female sterilization procedure Serenity Waters, Procedures Case Request OR - Gynecologic Surg: LAPAROSCOPIC SALPINGECTOMY - bilateral [address] [address] Referral ID Status Reason Start Date Expiration Date Visits V isits Requested Authorized [id number] Incomplete 05/11/2019 08/09/2020 1 1 WOOD BUYER Encounter Details Date Type Department Care Team Description 05/11/2019 Notes/Orders [facility] Filipe Waters for female Services-IT PROGRAM MANAGER Serenity Chapa MD sterilization procedure [address] ([address], [address] [address] [phone] Social History Tobacco Use Types Packs/Day Years [...] female sterilization proce dure - Primary Sterilization documented in this encounter Care Teams Vest Tailor Relationship Specialty Start Date End Date Needs Pcp, Assignment PCP - General 09/07/18 10/12/19 [place] [address] documented as of this encounter
--- OUTSIDE RECORDS SUMMARY | 2022-04-25 22:33 | XMS_ITS | Encounter Summary ---
:1985 Author Organization [employer] Address [address] [place] [address] Care Team Providers Name Role Phone Needs Pcp, Assignment Primary Care Provider Reason for Visit Reason Comments Forms FMLA FORMS Encounter Details Date Type Department Care Team Description 02/13/2019 Telephone [place] 1513 Wanda Guallpa MD Forms (FMLA FORMS) Obstetrics/Gynecolog y 1515 [facility] 1515 [facility] . [place] [address] [place] [address] [place] [phone] (Wo rk) Social History Tobacco Use Types Packs/Day Years Used Date Smoking Tobacco: Never Smokeless Tobacco: Never Alcohol Use Standard Drinks/Week Comments Not Currently 0 (1 standard drink = 0.6 oz pure alcoho l) 2/week Sex Assigned at Date Recorded Not on file documented as of this encounter Nursing Notes Danitza Coleman RN - 02/14/2019 8:34 AM CDT Pt was informed that her forms are completed and ready to be picked up at the desk. Breann Sales - 02/13/2019 12:59 PM CDT Forms: What form are you requesting? Patient came and dropped of Disability claim form to be filled out by Dr. Guallpa. Please call when ready to be picked up. How would you like to receive your form? [Concrete Curer: If patient would like this sent anywhereother than to themselves, we need them to sign a Release of Information.] it support analyst What is a good number to reach you at? [phone] Is it okay to leave a detailed message on your voicemail? Yes Is there anything else I can help you with today? no Breann Sales Please route to: Care Team Ben and Concrete Curer Ben documented in this encounter Plan of Treatment Not on filedocumented as of this encounter Visit Diagnoses Not on filedocumented in this encounter Care Teams Security Rep Relationship Specialty Start Date End Date Needs Pcp, Assignment PCP - General 09/07/18 10/12/19 [place] [address] documented as of this encounter
--- OUTSIDE RECORDS SUMMARY | 2022-04-25 22:33 | XMS_ITS | Encounter Summary ---
:1985 Author Organization [employer] Address [address] [place] [address] Care Team Providers Name Role Phone Needs Pcp, Assignment Primary Care Provider Reason for Visit Reason Comments Vaginal Discharge , NOS Encounter Details Date Type Department Care Team Description 03/26/2019 Nurse Triage [place] 1515 Wanda Guallpa Vaginal D ischarge; Obstetrics/Gynecolog y MD , NOS [address] [place] [address] Ave [facility] [address] [place] [address] Social History Tobacco Use Types Packs/Day Years Used Date Smoking Tobacco: Never Smokeless Tobacco: Never Alcohol Use Standard Drinks/Week Comments Not Currently 0 (1 standard drink = 0.6 oz pure alcoho l) 2/week Sex Assigned at Date Recorded Not on file documented as of this encounter Nursing Notes Lavonne Kwan RN - 03/26/2019 4:31 PM CST Reason for Disposition ??? Patient wants to be seen Protocols used: - VAGINAL BLEEDING AND [id number] Del 01/28. Not . No menses yet and continues to have thick clear/light yellow discharge with slight odor; denies foul fishy odor. Denies abdominal pain or urinary sx. Has NOT resumed sexual intercourse since delivery. Possible prolonged lochia alba stage. Requesting appointment with any female provider late morning so she can leave work for an early lunch, minimizing missed work hours. Problem list reviewed as related to this call. Future Appointments Provider Department Center 03/30/2019 11:10 AM Maria Esther Stone MD [place] 1515 Obstetrics/Gynecology PN VASILIY POT OPERATOR documented in this encounter Plan of Treatment Not on filedocumented as of this encounter Visit Diagnoses Not on filedocumented in this encounter Care Teams Rn Mds Relationship Specialty Start Date End Date Needs Pcp, Assignment PCP - General 09/07/18 10/12/19 [place], [place] [address] documented as of this encounter
--- OUTSIDE RECORDS SUMMARY | 2022-04-25 22:33 | XMS_ITS | Encounter Summary ---
:1985 Author Organization [facility] Address [address] [place] [address] Care Team Providers Name Role Phone Needs Pcp, Assignment Primary Care Provider Reason for Visit Reason Comments Forms Encounter Details Date Type Department Care Team Description 05/11/2019 Telephone [facility] 1515 Wanda Guallpa MD Forms Obstetrics/Gynecolog y 1515 [facility] [place] [facility] [facility] [address] [place] [address] [place] [phone] (Wo rk) Social History Tobacco Use Types Packs/Day Years Used Date Smoking Tobacco: Never Smokeless Tobacco: Never Alcohol Use Standard Drinks/Week Comments Not Currently 0 (1 standard drink = 0.6 oz pure alcoho l) 2/week Sex Assigned at Date Recorded Not on file documented as of this encounter Nursing Notes Danitza Coleman RN - 05/11/2019 1:36 PM CST Returned call to report that the form was faxed 05/07 and confirmation of the completed fax was received. He was advised to check again for the fax. He was also given our fax number again so that he can fax another form if he wants to. Lavonne Tucker RN - 05/11/2019 11:34 AM CST Faxed over provider questionnaire last week for pt's short term disability paperwork from delivery, this was the second time they have faxed. Following up since there has been no response. Will route to /sharma nursing to verify questionnaire has been received. DECORATOR documented in this encounter Plan of Treatment Not on filedocumented as of this encounter Visit Diagnoses Not on filedocumented in this encounter Care Teams Heavy Equipment Diesel Mechanic Relationship Specialty Start Date End Date Needs Pcp, Assignment PCP - General 09/07/18 10/12/19 [place] [address] documented as of this encounter
--- OUTSIDE RECORDS SUMMARY | 2022-04-25 22:33 | XMS_ITS | Encounter Summary ---
:1985 Author Organization [employer] Address [address] [address] Care Team Providers Name Role Phone Needs Pcp, Assignment Primary Care Provider Reason for Visit Reason Comments Concerns Encounter Details Date Type Department Care Team Description 12/26/2018 Nurse Triage [place] [address]Wanda Lemos, Concerns Obstetrics/Gynecolog y 1515 [facility] . 1515 [place] [address] [facility] [address] [place] [phone] (Wo rk) Social History Tobacco Use Types Packs/Day Years Used Date Smoking Tobacco: Never Smokeless Tobacco: Never Alcohol Use Standard Drinks/Week Comments Not Currently 0 (1 standard drink = 0.6 oz pure alcoho l) 2/week Sex Assigned at Date Recorded Not on file documented as of this encounter Nursing Notes Wanda Montoya RN - 12/26/2018 4:22 PM CDT Reason for Disposition ??? SEVERE headache and not relieved by pain meds Protocols used: - [id number] Patient called. . 34 w 4 d. C/O pounding headache since 1230 yesterday afternoon. Tylenol is nothelping. Rates pain 6-7/10. States her stomach is upside down. Can't eat; nothing feels appealing. Urinating more than normal. 4 loose stools today. Denies emesis. Thinks baby is having normal movementtoday; not sure; thinks baby's movement has slowed down the last week. Had contractions for half hour last evening. States she feels super off. Advised to go to Family for assessment. Called and gave report to Sharmin. Patient is on her way home. Will have her drive her to [facility]. Will be here in about an hour. Patient of Dr. Guallpa. Routed to Dr. Huitron for FYI documented in this encounter Plan of Treatment Not on filedocumented as of this encounter Visit Diagnoses Not on filedocumented in this encounter Care Teams Tent Assembler Relationship Specialty Start Date End Date Needs Pcp, Assignment PCP - General 09/07/18 10/12/19 [place] [address] documented as of this encounter
--- OUTSIDE RECORDS SUMMARY | 2022-04-25 22:33 | XMS_ITS | Encounter Summary ---
:1985 Author [address] [facility] Address [address] [place] [address] Care Team Providers Name Role Phone Needs Pcp, Assignment Primary Care Provider Reason for Visit Reason Comments Routine Visit Encounter Details Date Type Department Care Team Description 01/11/2019 Routine [place] 1515 Jonathan Blandon Routi ne Obstetrics/Gynecolog MD Visit y 1515 [facility] [address] [place] [address] [place] [phone] Social History Tobacco Use Types Packs/Day Years Used Date Smoking Tobacco: Never Smokeless Tobacco: Never Alcohol Use Standard Drinks/Week Comments Not Currently 0 (1 standard drink = 0.6 oz pure alcoho l) 2/week Sex Assigned at Date Recorded Not on file documented as of this encounter Last Filed Vital Signs Vital Sign Reading Time Taken Comments Blood Pressure 130/80 01/11/2019 12:53 PM CDT Pulse - - Temperature - - Respiratory Rate - - Oxygen Saturation - - Inhaled Oxygen Concentration - - Weight 89.4 kg (197 lb 3.2 oz) 01/11/2019 12:53 PM CDT Height - - Body Mass Index 29.98 06/19/2018 3:35 PM RICE FARMWORKER documented in this encounter Progress Notes Jonathan Blandon MD - 01/11/2019 1:00 PM CDT Addended by: JONATHAN BLANDON on: 01/15/2019 10:29 AM Modules accepted: Orders Jonathan Blandon MD - 01/11/2019 1:00 PM CDT VISIT Patient reports occasional contractions. GBS negative. Baby has moved back to oblique lie with head in the LLQ. At 39 weeks could do version to vertex and induction. 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
--- OUTSIDE RECORDS SUMMARY | 2022-04-25 22:33 | XMS_ITS | Encounter Summary ---
:1985 Author Organization [facility] Address [address] [place] [address] Care Team Providers Name Role Phone Needs Pcp, Assignment Primary Care Provider Reason for Visit Reason Comments Routine Visit Encounter Details Date Type Department Care Team Description 01/25/2019 Routine [place] 1515 Wanda Guallpa Routi ne Obstetrics/Gynecolog MD Visit y 1515 [facility] [address] [place] [address] [place] [phone] Social History Tobacco Use Types Packs/Day Years Used Date Smoking Tobacco: Never Smokeless Tobacco: Never Alcohol Use Standard Drinks/Week Comments Not Currently 0 (1 standard drink = 0.6 oz pure alcoho l) 2/week Sex Assigned at Date Recorded Not on file documented as of this encounter Last Filed Vital Signs Vital Sign Reading Time Taken Comments Blood Pressure 118/74 01/25/2019 2:20 PM CDT Pulse - - Temperature - - Respiratory Rate - - Oxygen Saturation - - Inhaled Oxygen Concentration - - Weight 89.9 kg (198 lb 1.6 oz) 01/25/2019 2:20 PM CDT Height - - Body Mass Index 30.12 06/19/2018 3:35 PM SUPERVISOR BLOOMING MILL documented in this encounter Progress Notes Wanda Guallpa MD - 01/25/2019 2:30 PM CDT VISIT Patient reports typical late symptoms. 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
--- OUTSIDE RECORDS SUMMARY | 2022-04-25 22:33 | XMS_ITS | Encounter Summary ---
:1985 Author Organization [facility] Address [address] [place] [address] Care Team Providers Name Role Phone Needs Pcp, Assignment Primary Care Provider Reason for Visit Reason Onset Date Comments HEADACHE,MIGRAINE X 2 weeks, dull ache at temples, vision sometimes effected, blood pres sure concerns Video Visit 08/22/2019 Encounter Details Date Type Department Care Team Description 08/22/2019 Telemedicine Shannan Gu [facility] hypertension (Primary Dx); Medicine DO Headaches; [address] Screening f or hyperlipidemia [address] RAHMAN [place] [address] [place] [phone] [address] Social History Tobacco Use Types Packs/Day Years Used Date Smoking Tobacco: Never Smokeless Tobacco: Never Alcohol Use Standard Drinks/Week Comments Not Currently 0 (1 standard drink = 0.6 oz pure alcoho l) 2/week Sex Assigned at Date Recorded Not on file documented as of this encounter Progress Notes Shannan Matthews DO - 08/22/2019 1:00 PM CDT Subjective Estefaniarashid Mckeon was called for a video visit regarding: headaches Ongoing for two weeks. Has a h/o migraines, and this feels the same as past migraines. To temples and around eyes. Dull. Sometimes will have spotty vision with it. advil and tylenol. Sometimes helps. Has taken Fioricet in the past and this has been helpful. Notes she had HTN during , and believes this was causing headaches to worsen. Has not had a migraine since then. Still has had high blood pressure. At last two clinic visits (jun and apr) BP was in the 140s/90s. Strong family h/o HTN andCAD. Notes strong family h/o CAD. Both parents from [place] in their 50s. She denies any chest pain/pressure or SOB. Objective General: Alert, pleasant, NAD Respiratory: Normal respiratory effort. Neurological: No gross focal deficits. Psych: Affect is normal, patient is appropriate, grooming is appropriate. Assessment & Plan Estefania was seen today for headache,migraine. Diagnoses and all orders for this visit: Essential hypertension (HRC) - propranolol (INDERALLA) 80 MG 24 hour release capsule; Take 1 Capsule by mouth daily. - Complete Blood Count W/Diff; Future - TSH with Free T4 (if TSH Abnormal); Future - Basic Metabolic Panel; Future - ECG 12 Lead Outpatient Headaches - fedrrxtpho-ktglfqxlwuzsk-cpilujjh (FIORICET) 50-325-40 MG tablet; Take 1 Tablet by mouth every 4 hours as needed for Pain. - SUMAtriptan (IMITREX) 50 MG tablet; Take 1 Tablet by mouth as needed for Migraine. May repeat one tablet after 2 hours if needed. Maximum 4 tabs/24 hours and 9 days/month - propranolol (INDERALLA) 80 MG 24 hour release capsule; Take 1 Capsule by mouth daily. Screening for hyperlipidemia - Lipid Panel - LDLD If Trig High; Future -will treat headache with fioricet. If that does not work, she will try sumatriptan. If neither of these work, she will call back. We could try doing a prednisone burst if needed. -start propranolol ER 80mg daily for both HTN and headaches. -will have patient come into clinic in 1 week for a nurse BP check, lab work, and EKG. Will do f/u video or phone visit after that to discuss further work up depending on above results. Would have low threshold to order a lexiscan if EKG is abnormal given her family history. Clinician located at: home Patient located at: home Time spent with patient (if applicable): 15 minutes DO [facility] Cyn Islsa - 08/22/2019 1:00 PM CDT LVM for patient to schedule in-clinic nurse appt. Gave #[phone] Cyn Islas - 08/22/2019 1:00 PM CDT Patient scheduled 08/28/19 for in-clinic nurse appt documented in this encounter Plan of Treatment Scheduled Orders Name Type Priority Associated Diagnoses Order S chedule ECG 12 Lead Outpatient EKG Routine Essential hyperten daya Ordered: 08/22/2019 documented as of this encounter Results Basic Metabolic Panel (08/28/2019 8:33 AM CDT) P athologist Signature Sodium 140 136 - 145 08/28/2019 [facility] mmol/L 3:03 PM CDT LABORATORY Potassium 4.3 3.5 - 5.1 08/28/2019 [facility] mmol/L 3:03 PM CDT LABORATORY Chloride 103 98 - 109 08/28/2019 [facility] mmol/L 3:03 PM CDT LABORATORY CO2 26 20 - 29 08/28/2019 [facility] mmol/L 3:03 PM CDT LABORATORY Anion Gap 11 7 - 16 08/28/2019 [facility] mmol/L 3:03 PM CDT LABORATORY Calcium 9.6 8.4 - 10.4 08/28/2019 [facility] mg/dL 3:03 PM CDT LABORATORY BUN 12 7 - 26 08/28/2019 [facility] mg/dL 3:03 PM CDT LABORATORY Creatinine 0.80 0.55 - 08/28/2019 [facility] 1.02 mg/dL 3:03 PM CDT LABORATORY GFR, Estimated >60 >60 08/28/2019 [facility] mL/min/1.7 3:03 PM CDT LABORATORY 3m2 GFR, Est If >60 >60 08/28/2019 [facility] mL/min/1.7 3:03 PM CDT LABORATORY Barbadian 3m2 Glucose 91 70 - 100 08/28/2019 [facility] mg/dL 3:03 PM CDT LABORATORY Comment: The given reference range is fo r the fasting state. Non-fasting reference range for glucose is 70 - 180 mg/dL. Hours Fasting 12 08/28/2019 3:03 PM CDT [facility] Specimen Anatomical Collection Method / Collection Time Recei doc Time (Source) Location / Volume Laterality Blood Venipuncture / 08/28/2019 8:33 08/28/2019 8:33 Unknown AM CDT AM CDT Shannan Matthews DO LAB_1 Performing Organization Address City/[facility] Phon e Number [facility] [address] [place] [address] [facility] [address] [place] [address], [facility] TSH with Free T4 (if TSH Abnormal) (08/28/2019 8:33 AM CDT) P athologist Signature TSH, Reflex 2.08 0.30 - 4.50 08/28/2019 [facility] uIU/mL 3:56 PM CDT LABORATORY Specimen Anatomical Collection Method / Collection Time Recei doc Time (Source) Location / Volume Laterality Blood Venipuncture / 08/28/2019 8:33 08/28/2019 8:33 Unknown AM CDT AM CDT Narrative [facility] - 08/28/2019 3:56 P M CDT Lab will automatically reflex to Free T4 when TSH results are <0.30 uIU/mL or >4.50 mIU/mL. Shannan Matthews DO LAB_1 Performing Organization Address City/State/[facility] Code Phon e Number [facility] [address] [place] [address] (ABNORMAL) Lipid Panel - LDLD If Trig High (08/28/2019 8:33 AM CDT) [facility] gist Method Time Signature Cholesterol 214 (H) 0 - 199 08/28/2019 [facility] mg/dL 3:03 PM CDT LABORATORY Triglyceride 364 (H) <=149 08/28/2019 [facility] mg/dL 3:03 PM CDT LABORATORY HDL Cholesterol 39 (L) >=40 08/28/2019 [facility] mg/dL 3:03 PM CDT LABORATORY LDL, Calculated 102 <130 08/28/2019 [facility] mg/dL 3:03 PM CDT LABORATORY Non HDL Chol, 175 mg/dL 08/28/2019 [facility] Calculated 3:03 PM CDT LABORATORY Cholesterol/HDL 5.5 08/28/2019 [facility] Ratio 3:03 PM CDT LABORATORY Hours Fasting 12 08/28/2019 [facility] 3:03 PM CDT LABORATORY Specimen Anatomical Collection Method / Collection Time Recei doc Time (Source) Location / Volume Laterality Blood Venipuncture / 08/28/2019 8:33 08/28/2019 8:33 Unknown AM CDT AM CDT Shannan Matthews DO LAB_1 Performing Organization Address City/State/ZIP Code Phon e Number [facility] [address] [place] [address] [facility] [address] [place] [address], [facility] documented in this encounter Visit Diagnoses Diagnosis Essential hypertension (HRC) - Primary Unspecified essential hypertension Headaches Screening for hyperlipidemia Screening for lipoid disorders documented in this encounter Care Teams Fermenter Wine Relationship Specialty Start Date End Date Needs Pcp, Assignment PCP - General 09/07/18 10/12/19 [place], [place] [id number] documented as of this encounter
--- OUTSIDE RECORDS SUMMARY | 2022-04-25 22:33 | XMS_ITS | Encounter Summary ---
:1985 Author Organization [employer] Address [address], [place] [address] Care Team Providers Name Role Phone Needs Pcp, Assignment Primary Care Provider Reason for Visit Reason Comments Follow-up Encounter Details Date Type Department Care Team Description 05/10/2019 Office Visit [facility] Filipe Waters for Services-ANIMAL MAINTENANCE SUPERVISOR Serenity Chapa MD sterilization ([facility] [address], [address] [id number] [phone] Social History Tobacco Use Types Packs/Day Years Used Date Smoking Tobacco: Never Smokeless Tobacco: Never Alcohol Use Standard Drinks/Week Comments Not Currently 0 (1 standard drink = 0.6 oz pure alcoho l) 2/week Sex Assigned at Date Recorded Not on file documented as of this encounter Last Filed Vital Signs Vital Sign Reading Time Taken Comments Blood Pressure 143/97 05/10/2019 2:02 PM FILM SORTER Pulse 93 05/10/2019 2:02 PM FILM SORTER Temperature - - Respiratory Rate - - Oxygen Saturation - - Inhaled Oxygen Concentration - - Weight 79.8 kg (176 lb) 05/10/2019 2:02 PM FILM SORTER Height - - Body Mass Index 26.76 06/19/2018 3:35 PM FILM SORTER documented in this encounter Progress Notes Serenity Waters MD - 05/10/2019 2:00 PM CST [facility] Chief Complaint Patient presents with ??? Follow-up History of Present Illness: Estefania Mckeon is a 33 y.o. female using condoms for contraception here for contraceptiondiscussion. She has a 4 year old and a 3 month old baby. She has tried OCP's and a nexplanon for contraception. She had horrible headaches with OCP's and bled nonstop with nexplanon. She desires no future fertility and is requesting surgical sterilization. Her declines a vasectomy. She understands this is permanent. Current Outpatient Medications Medication Sig ??? oabqskurcv-dqxwzizujtziz-ygdmnubl (FIORICET) 50-325-40 MG tablet Take 1 Tablet by mouth every 4 hours as needed for Pain. ??? cetirizine (ZYRTEC) 10 MG tablet Take 10 mg by mouth daily. ??? sertraline (ZOLOFT) 50 MG tablet Take 1 Tablet by mouth daily. Allergies Allergen Reactions ??? Amoxicillin Hives ??? [...] blood transfusion ??? KEZIA (iron deficiency anemia) Past Medical History: Diagnosis Date ??? Anemia [...] unless noted in HPI Physical Examination: BP (!) 143/97 (BP Location: Right Arm, BP Cuff Size: Regular) Pulse 93 Wt 176 lb (79.8 kg) LMP106/16/2018 ? No BMI 26.76 kg/m?? Estimated body mass index is 26.76 kg/m?? as calculated from the following: Height as of 06/19/18: 5' 8 (1.727 m). Weight as of this encounter: 176 lb (79.8 kg). Physical Examination: General appearance - alert, well appearing, and in no distress Mental status - alert, oriented to person, place, and time Abdomen - soft, nontender, nondistended, no masses or organomegaly Skin - normal coloration and turgor, no rashes, no suspicious skin lesions noted Assessment/Plan: 33 y.o. female who desires permanent sterilization 1. I reviewed contraception options with the patient including IUD (pt has bicornuate uterus), nexplanon and OCP's. She is a good candidate for a tubal. I discussed that we frequently remove the entiretube for ovarian cancer prevention. She expressed agreement. I reviewed risks including bleeding, inf ection and injury to internal organs. We reviewed that there is always a small chance of becoming after tubal and she would need to get medical care if she thought she was after the procedure. I will go forward with scheduling a bilateral salpingectomy for this patient. I spent 15 minutes with this patient, over half of which was spent in counseling and coordination ofcare. Serenity Alva MD 05/10/2019 2:49 PM SORTER documented in this encounter Plan of Treatment Not on filedocumented as of this encounter Visit Diagnoses Diagnosis Encounter for sterilization - Primary Sterilization documented in this encounter Care Teams Patient Biller Relationship Specialty Start Date End Date Needs Pcp, Assignment PCP - General 09/07/18 10/12/19 [place] [address] documented as of this encounter
--- OUTSIDE RECORDS SUMMARY | 2022-04-25 22:33 | XMS_ITS | Encounter Summary ---
:1985 Author Organization [facility] Address [address] [address] Care Team Providers Name Role Phone Needs Pcp, Assignment Primary Care Provider Reason for Visit Reason Comments Preop Exam DOS 08/14/19 Encounter Details Date Type Department Care Team Description 07/19/2019 Pre-Op Visit [facility] Filipe Waters for Services-ELECTROMECHANICAL TECHNOLOGIST Serenity Chapa MD sterilization (Primary [address], [address] [address] [phone] Social History Tobacco Use Types Packs/Day Years Used Date Smoking Tobacco: Never Smokeless Tobacco: Never Alcohol Use Standard Drinks/Week Comments Not Currently 0 (1 standard drink = 0.6 oz pure alcoho l) 2/week Sex Assigned at Date Recorded Not on file documented as of this encounter Last Filed Vital Signs Vital Sign Reading Time Taken Comments Blood Pressure 141/96 07/19/2019 4:24 PM ACCOUNT DEVELOPMENT SPECIALIST Pulse 80 07/19/2019 4:24 PM ACCOUNT DEVELOPMENT SPECIALIST Temperature - - Respiratory Rate - - Oxygen Saturation - - Inhaled Oxygen Concentration - - Weight 73.1 kg (161 lb 3.2 oz) 07/19/2019 4:24 PM ACCOUNT DEVELOPMENT SPECIALIST Height - - Body Mass Index 24.51 06/19/2018 3:35 PM ACCOUNT DEVELOPMENT SPECIALIST documented in this encounter Progress Notes Serenity Waters MD - 07/19/2019 4:15 PM CST Preop H&P for laparoscopic bilateral salpingectomy: The patient is a 34 y.o. Patient's last menstrual period was 07/02/2019 (approximate). who presents for preoperative history and physical prior to planned laparoscopic bilateral salpingectomy for sterilization. See previous dictations for details. She has tried OCP's and a nexplanon for contraception. She had horrible headaches with OCP's and bled nonstop with nexplanon. She desires no future fertility and is requesting surgical sterilization. Her declines a vasectomy. She understands this is permanent. Past medical history: Past Medical History: Diagnosis Date ??? Anemia iron deficiency ??? Bicornuate uterus ??? Blood transfusion, without reported diagnosis Chronic anemia ??? Heartburn ??? Kidney stones 10 stones in past, current stone right kidney ??? Migraines ??? Pap smear abnormality of cervix ??? Varicella Past surgical history: Past Surgical History: Procedure Laterality Date ??? CYSTOSCOPY 2003 Kidney stones ??? HX APPENDECTOMY 1998 ??? WISDOM TEETH EXTRACTION Past obstetrical history: x 2, SAB x 2 Transfusion history: History of a blood transfusion for chronic anemia in the past. She will accept blood transfusion. Medications: Outpatient Medications Prior to Visit Medication Sig ??? qduescjxme-awcxfijhczerx-jxubesef (FIORICET) 50-325-40 MG tablet Take 1 Tablet by mouth every 4 hours as needed for Pain. (Patient not taking: Reported on 07/19/2019) ??? cetirizine (ZYRTEC) 10 MG tablet Take 10 mg by mouth daily. ??? sertraline (ZOLOFT) 50 MG tablet Take 1 Tablet by mouth daily. No facility-administered medications prior to visit. Allergies: Allergies Allergen Reactions ??? Amoxicillin Hives ??? Diphenhydramine Breathing Difficulty and Palpitations Benadryl ??? Macrobid [Nitrofurantoin] Hives Review of systems: Denies bowel or bladder problems and the complete review of systems is negative. No personal history of significant anesthesia problems. Pertinent Family history: No family history of anesthesia problems. Objective: Healthy appearing female in no distress. BP (!) 141/96 (BP Location: Right Arm, BP Cuff Size: Regular) Pulse 80 Wt 161 lb 3.2 oz (73.1 kg) LMP 07/02/2019 (Approximate) No BMI 24.51 kg/m?? . Thyroid area normal. Lungs clear. Heart regular rate and rhythm without murmur. Abdomen is soft and nontender. Extremities grossly normal with out edema.. Assessment: Preop H&P laparoscopic, bilateral salpingectomy Plan: Reviewed procedure including n.p.o. after midnight, planned anesthesia and risks of bleeding, infection and injury to internal organs. Reviewed low risk of transfusion. Discussed postop expectations. She is prepared to proceed. Serenity Alva MD 4:44 PM 07/19/2019 UNT DEVELOPMENT SPECIALIST documented in this encounter Plan of Treatment Not on filedocumented as of this encounter Visit Diagnoses Diagnosis Encounter for sterilization - Primary Sterilization documented in this encounter Care Teams Optical Effects Line Up Person Relationship Specialty Start Date End Date Needs Pcp, Assignment PCP - General 09/07/18 10/12/19 [place] [address] documented as of this encounter
--- OUTSIDE RECORDS SUMMARY | 2022-04-25 22:33 | XMS_ITS | Encounter Summary ---
:1985 Author Organization [facility] Address [address] [place] [address] Care Team Providers Name Role Phone Needs Pcp, Assignment Primary Care Provider Reason for Visit Reason Comments Follow-up vaginal discharge Encounter Details Date Type Department Care Team Description 03/30/2019 Office Visit [place] 15[address] Maria Esther Stone, Vaginal discharge Obstetrics/Gynecolog y (Primary Dx) [facility] [address] [place] [address] [facility] [address] [place], [place] [address] Social History Tobacco Use Types Packs/Day Years Used Date Smoking Tobacco: Never Smokeless Tobacco: Never Alcohol Use Standard Drinks/Week Comments Not Currently 0 (1 standard drink = 0.6 oz pure alcoho l) 2/week Sex Assigned at Date Recorded Not on file documented as of this encounter Last Filed Vital Signs Vital Sign Reading Time Taken Comments Blood Pressure 122/92 03/30/2019 11:11 AM CIRCLE BEVELER Pulse - - Temperature - - Respiratory Rate - - Oxygen Saturation - - Inhaled Oxygen Concentration - - Weight 79.8 kg (176 lb) 03/30/2019 11:11 AM CIRCLE BEVELER Height - - Body Mass Index 26.76 06/19/2018 3:35 PM CIRCLE BEVELER documented in this encounter Progress Notes Maria Esther Stone MD - 03/30/2019 11:10 AM CST CHIEF COMPLAINT: Vaginal discharge HPI:33 y.o. female presents for ongoing vaginal discharge. She had a baby on 01/28/2019. Shehas been having some thick yellowish and white discharge. It is snot /mucous consistency. She has not had a menses yet. Denies any itching or odor. She would like to get her tubes tied for sterilization Medications: wsmjtueukp-atjhnbeeeaotl-zvfclusv (FIORICET) 50-325-40 MG tablet, Take 1 Tablet by mouth every 4 hours as needed for Pain., Disp: 10 Tablet, Rfl: 0 cetirizine (ZYRTEC) 10 MG tablet, Take 10 mg by mouth daily., Disp: , Rfl: Norethin-Eth Estrad Triphasic (ORTHO-NOVUM) 0.5/0.75/1-35 MG-MCG tablet, Take 1 Tablet by mouthdaily., Disp: 90 Tablet, Rfl: 3 MV & Min w/FA-DHA ( ADULT GUMMY/DHA/FA OR), , Disp: , Rfl: sertraline (ZOLOFT) 50 MG tablet, Take 1 Tablet by mouth daily., Disp: 90 Tablet, Rfl: 3 No current facility-administered medications on file as of 03/30/2019. Allergies: Allergies Allergen Reactions ??? Amoxicillin Hives ??? Diphenhydramine Breathing Difficulty and Palpitations Benadryl ??? Macrobid [Nitrofurantoin] Hives Patient Active Problem List Diagnosis ??? Vitamin D deficiency (HRC) ??? Recurrent kidney stones ??? History of blood transfusion ??? KEZIA (iron deficiency anemia) ROS: Bicornuate uterus OBJECTIVE: BP (!) 122/92 (BP Location: Right Arm, BP Cuff Size: Regular) Wt 176 lb (79.8 kg) ? No BMI 26.76 kg/m?? Vital Signs: Reviewed; See Flowsheet Charting in Epic General: no apparent distress : External genitalia, urethral meatus, and perineum appear normal. Speculum exam--normal vaginal epithelium and cervix. Small amount of mucus type discharge was noted. No odor noted. Wet prep collected. Labs: Wet prep ASSESSMENT: 33 y.o. female with ICD-10-CM 1. Vaginal discharge N89.8 Wet Prep PLAN: Wet prep done today. She has no STD exposure. Discussed the discharge is most likely physiologic secondary to having a baby 8 weeks ago. We will notify the results when available. She asked aboutsterilization, and due to her uncomplicated pregnancies, do not think this would be approved at [place]. She lives near [place], so recommend she have an appointment at the [facility] and have the surgery done at [facility]. Follow-up as needed. All questions answered. Total time 15 minutes counseling time 10 minutes created with voice recognition software LE BEVELER documented in this encounter Plan of Treatment Not on filedocumented as of this encounter Procedures Procedure Name Priority Date/Time Associated Diagnosis Comme nts VAGINAL WET PREP Waiting 03/30/2019 11:30 AM Vaginal discharge Results for this CIRCLE BEVELER procedure are i n the results section. documented in this encounter Results (ABNORMAL) Wet Prep (03/30/2019 11:30 AM CIRCLE BEVELER) [facility] Method Time Signature Fungal Not Detected Not detected 03/30/2019 [facility] 11:38 AM LABORATORY CIRCLE BEVELER Clue Cells Not Detected Not Detected 03/30/2019 [facility] 11:38 AM LABORATORY CIRCLE BEVELER White Blood Detected (A) Not Detected 03/30/2019 [facility] Cells 11:38 AM LABORATORY CIRCLE BEVELER Trich Not Detected Not detected 03/30/2019 [facility] Vaginalis 11:38 AM LABORATORY CIRCLE BEVELER Specimen Anatomical Collection Method Collection Time Receive d Time (Source) Location / / Volume Laterality Swab (Source VAGINAL CERVIX / Non-blood 03/30/2019 11:30 019 Required) Unknown Collection / AM CIRCLE BEVELER 11:33 AM CIRCLE BEVELER Unknown Narrative [facility] - 03/30/2019 11:38 A M CIRCLE BEVELER Methodology: ??Manual Microscopic Maria Esther Stone MD LAB_1 Performing Organization Address City/State/ZIP Code Phon e Number [facility] [address] [place] [address] documented in this encounter Visit Diagnoses Diagnosis Vaginal discharge - Primary Leukorrhea, not specified as infective documented in this encounter Care Teams Garbage Collection Supervisor Relationship Specialty Start Date End Date Needs Pcp, Assignment PCP - General 09/07/18 10/12/19 [place] [address] documented as of this encounter
--- OUTSIDE RECORDS SUMMARY | 2022-04-25 22:33 | XMS_ITS | Encounter Summary ---
:1985 Author Organization [facility] Address [address] [place] [address] Care Team Providers Name Role Phone Needs Pcp, Assignment Primary Care Provider Reason for Visit Procedure/Equipment (Routine) - Incomplete Specialty Diagnoses / Procedures Referred By Contact Refer red To Contact Diagnoses Bicornate uterus complicating , first trimester Lurdes Cheung M, DO Procedures US OB Follow-Up For Growth Single (Includes YENNY) [address] [facility] [address] [place] [address] Referral ID Status Reason Start Date Expiration Date Visits V isits Requested Authorized [id number] Incomplete 12/19/2018 03/19/2020 10 10 Encounter Details Date Type Department Care Team Description 01/04/2019 Ancillary [place] 1515 Lurdes Cheung Bicornate uterus Procedure Ultrasound M, DO complicating 1515 [place] 1515 [facility] , [address] [facility] [place] [address] [address] [place] [address] Social History Tobacco Use Types Packs/Day Years [...] Priority Date/Time Associated Diagnosis Comme nts US OB FOLLOW-UP FOR Routine 01/04/2019 10:13 Bicornate uterus Results for this GROWTH SINGLE AM CDT complicating procedure are in (INCLUDES YENNY) , first the resul ts trimester section. documented in this encounter Results US OB Follow-Up For [...] ??01/27/2019 IMPRESSION: Single living fetus with vahid wth parameters as above. Procedure Note Vineet Montoya [...] Diagnosis Bicornate uterus complicating , first trimester documented in this encounter Care Teams Material Handler Relationship Specialty Start Date End Date Needs Pcp, Assignment PCP - General 09/07/18 10/12/19 [place] [address] documented as of this encounter
--- OUTSIDE RECORDS SUMMARY | 2022-04-25 22:33 | XMS_ITS | Encounter Summary ---
:1985 Author Organization [employer] Address [address], [place] [address] Care Team Providers Name Role Phone Needs Pcp, Assignment Primary Care Provider Reason for Visit Reason Comments LABOR Encounter Details Date Type Department Care Team Description 01/21/2019 Nurse Triage Jan Nurse Line Wanda Guallpa MD LABOR [phone] [place] [phone] (Wo rk) Social History Tobacco Use Types Packs/Day Years Used Date Smoking Tobacco: Never Smokeless Tobacco: Never Alcohol Use Standard Drinks/Week Comments Not Currently 0 (1 standard drink = 0.6 oz pure alcoho l) 2/week Sex Assigned at Date Recorded Not on file documented as of this encounter Nursing Notes Kemal Chinchilla RN - 01/21/2019 12:06 AM CDT Reason for Disposition ? ? [1] History of prior delivery (multipara) AND [2] contractions < 10 minutes apart AND [3] present 1 hour Patient calling 38w2d due to having contractions for the past 5 hrs. They have been getting progressively stronger & closer together. Contractions are now 7 min apart. Baby is active. No bleeding or fluid leaking. Protocols used: - [id number] documented in this encounter Plan of Treatment Not on filedocumented as of this encounter Visit Diagnoses Not on filedocumented in this encounter Care Teams Door Liner Relationship Specialty Start Date End Date Needs Pcp, Assignment PCP - General 09/07/18 10/12/19 [place] [address] documented as of this encounter
--- OUTSIDE RECORDS SUMMARY | 2022-04-25 22:33 | XMS_ITS | Encounter Summary ---
:1985 Author Organization [facility] Address [address] [place] [address] Care Team Providers Name Role Phone Needs Pcp, Assignment Primary Care Provider Reason for Visit Reason Comments Post-Op Check Encounter Details Date Type Department Care Team Description 03/08/2019 Visit [place] 1515 Alfred Guallpa MD Post-Op Check Obstetrics/Gynecolog y 1515 [facility] 1515 [facility] . [address] [place] [address] [place] [phone] (Wo rk) Social History Tobacco Use Types Packs/Day Years Used Date Smoking Tobacco: Never Smokeless Tobacco: Never Alcohol Use Standard Drinks/Week Comments Not Currently 0 (1 standard drink = 0.6 oz pure alcoho l) 2/week Sex Assigned at Date Recorded Not on file documented as of this encounter Last Filed Vital Signs Vital Sign Reading Time Taken Comments Blood Pressure 122/86 03/08/2019 2:56 PM CDT Pulse - - Temperature - - Respiratory Rate - - Oxygen Saturation - - Inhaled Oxygen Concentration - - Weight 79.3 kg (174 lb 12.8 oz) 03/08/2019 2:56 PM CDT Height - - Body Mass Index 26.58 06/19/2018 3:35 PM 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 course: Complications: Bicornuate uterus, history of gestational hypertension See copy of the record in the scanned documents. Delivery: Date: 01/28/19 Gestational age: 39 weeks, 2 days Type of delivery: Vaginal Laceration: 1st degree Gender: girl Weight: 8 pounds, 0 ounces Recovery: Patient has had appropriate resolution of lochia. They have not yet had intercourse. Patient is not breast feeding. Patient states she has been under lot of stress recently. Her mother a year ago and her brotherhas been living in mom's house. They are now going to be selling the house. Her brother is not very mature or very helpful. Objective: Filed Vitals: 03/08/19 1456 BP: 122/86 Weight: 174 lb 12.8 oz (79.3 kg) She is alert and oriented and in no distress. The abdomen is soft and nondistended. There are no palpable masses or organ enlargement. On pelvic exam the vulva and vagina are of normal appearance and well healed. The cervix is of normal appearance. On bimanual examination the uterus is smooth in contour and is involuted to nonsize. There are no adnexal masses. Impression: exam. Increased stress due to social issues. Plan: Patient is free to resume all activities as she feels ready for them. We discussed options forcontraception. Patient has a bicornuate uterus and therefore is not a good candidate for an IUD. Shehas used an implant in the past and found this made her wang. She worries about forgetting to take her control pills. She would like to consider permanent sterilization either for her or her . For now she will start on control pills. I have prescribed Zoloft 50 mg daily. Pap smear: due in 2021 Wanda Guallpa M.D. Department of Obstetrics and Gynecology *SH~DNS~PP documented in this encounter Plan of Treatment Not on filedocumented as of this encounter Visit Diagnoses Diagnosis Routine follow-up - Primary depression Mental disorders of mother, complicating , childbirth, or the puerperium, unspecified as to episode of care Encounter for initial prescription of co ntraceptive pills General counseling for prescription of o ral contraceptives documented in this encounter Care Teams Chair Caner Relationship Specialty Start Date End Date Needs Pcp, Assignment PCP - General 09/07/18 10/12/19 [place] [address] documented as of this encounter
--- OUTSIDE RECORDS SUMMARY | 2022-04-25 22:34 | XMS_ITS | Encounter Summary ---
:1985 Author Organization [employer] Address [address] [place] [address] Care Team Providers Name Role Phone Needs Pcp, Assignment Primary Care Provider Reason for Referral Procedure/Equipment (Routine) - Incomplete Specialty Diagnoses / Procedures Referred By Contact Refer red To Contact Diagnoses Acute bilateral low back pain with left-sided sciatica (HRC) Wanda Guallpa MD Procedures Mother to be back support ([id number]) [address] [facility] [address] [place] [phone] Referral ID Status Reason Start Date Expiration Date Visits V isits Requested Authorized [id number] Incomplete 10/13/2018 01/12/2020 1 1 Reason for Visit Reason Comments Routine Visit Encounter Details Date Type Department Care Team Description 10/13/2018 Routine [place] 1515 Wanda Guallpa Routi ne Obstetrics/Gynecolog Visit y [address] [place] [address] [place] [phone] Social History Tobacco Use Types Packs/Day Years Used Date Smoking Tobacco: Never Smokeless Tobacco: Never Alcohol Use Standard Drinks/Week Comments Not Currently 0 (1 standard drink = 0.6 oz pure alcoho l) 2/week Sex Assigned at Date Recorded Not on file documented as of this encounter Last Filed Vital Signs Vital Sign Reading Time Taken Comments Blood Pressure 114/84 10/13/2018 11:31 AM CDT Pulse - - Temperature - - Respiratory Rate - - Oxygen Saturation - - Inhaled Oxygen Concentration - - Weight 81.8 kg (180 lb 4.8 oz) 10/13/2018 11:31 AM CDT Height - - Body Mass Index 27.41 06/19/2018 3: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 We recommend you review the following information in the book Your Guide to : ?? Labor ?? Testing: ?? Routine Tests- Glucose Tolerance Test ?? Monitoring Tests- Non-Stress Test ?? Monitoring Tests- Biophysical Profile Remember to schedule your one-hour glucose testing to be completed around 28 weeks. documented in this encounter Progress Notes Wanda Guallpa MD - 10/13/2018 11:15 AM CDT VISIT Patient reports back pain with radiation down left leg. ICD-10-CM 1. Bicornate uterus complicating , first trimester O34.01 Q51.3 2. Screening for diabetes mellitus Z13.1 Lab Glucose [place]ai Screen 3. Screening for iron deficiency anemia Z13.0 Hemoglobin Ob 4. Acute bilateral low back pain with left-sided sciatica ([facility]) M54.42 Mother to be back support ([id number]) Follow up: 4 weeks documented in this encounter Plan of Treatment Not on filedocumented as of this encounter Results Lab Glucose [place] Screen (10/30/2018 12:18 PM CDT) P athologist Signature Glucose, 1 78 70 - 135 10/30/[address] [facility] OB mg/dL 4:26 PM CDT LABORATORY Challenge Specimen Anatomical Collection Method / Collection Time Recei doc Time (Source) Location / Volume Laterality Blood Venipuncture / 10/30/2018 12:18 9 Unknown PM CDT 12:18 PM CDT Wanda Guallpa MD LAB_1 Performing Organization Address City/State/ZIP Code Phon e Number [facility] [address] [place], [place] [phone] documented in this encounter Visit Diagnoses Diagnosis Bicornate uterus complicating , first trimester - Primary Screening for diabetes mellitus Screening for iron deficiency anemia Acute bilateral low back pain with left- sided sciatica (HRC) documented in this encounter Care Teams Talent Acquisition Assistant Relationship Specialty Start Date End Date Needs Pcp, Assignment PCP - General 09/07/18 10/12/19 [place] [address] documented as of this encounter
--- OUTSIDE RECORDS SUMMARY | 2022-04-25 22:34 | XMS_ITS | Encounter Summary ---
:1985 Author Organization [facility] Address [address] [place] [address] Care Team Providers Name Role Phone Needs Pcp, Assignment Primary Care Provider Reason for Referral Procedure/Equipment (Routine) - Incomplete Specialty Diagnoses / Procedures Referred By Contact Refer red To Contact Diagnoses Bicornate uterus complicating , first trimester Wanda Guallpa MD Procedures US OB Follow-Up For Growth Single (Includes YENNY) [address] [facility] [address] [place] [address] Referral ID Status Reason Start Date Expiration Date Visits V isits Requested Authorized [id number] Incomplete 10/30/2018 01/29/2020 10 10 Reason for Visit Reason Comments Routine Visit Encounter Details Date Type Department Care Team Description 10/30/2018 Routine [place] [address]15 Stephanie Grider MD [address] [place] [phone] Routine Obstetrics/Gynecolog aWnda Guallpa MD [address] [place] [phone] Visit y [address] [place] [address] Social History Tobacco Use Types Packs/Day Years Used Date Smoking Tobacco: Never Smokeless Tobacco: Never Alcohol Use Standard Drinks/Week Comments Not Currently 0 (1 standard drink = 0.6 oz pure alcoho l) 2/week Sex Assigned at Date Recorded Not on file documented as of this encounter Last Filed Vital Signs Vital Sign Reading Time Taken Comments Blood Pressure 112/70 10/30/2018 11:22 AM CDT Pulse - - Temperature - - Respiratory Rate - - Oxygen Saturation - - Inhaled Oxygen Concentration - - Weight 82.8 kg (182 lb 9.6 oz) 10/30/2018 11:22 AM CDT Height - - Body Mass Index 27.76 06/19/2018 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 We recommend you review the following information in the book Preparing for Childbirth and additional materials: ?? Discomforts in ?? Information about the hospital where you plan to deliver ?? [place] Screening Have you considered how you will feed your baby? We can help answer any questions you have about feeding options at your next visit. documented in this encounter Progress Notes Wanda Guallpa MD - 10/30/2018 11:15 AM CDT VISIT Patient reports she continues to have pain in her left buttock with radiation down into the left calf. It is intermittent and better than when she discuss this with Dr. Grider. On exam she has no edema of the feet ankles or lower legs and her calves are equal in size bilaterally. Negative Homans sign. Patient did not do the leg ultrasound ordered by Dr. Grider and I do not think she needs to have it done. Her hemoglobin was normal for at 11.0 but her ferritin was low at [address] Grider had ordered on iron supplement. She took this for a week and found she had difficulty with both constipation and diarrhea. Patient is a meat eater and I think she can get adequate iron through her diet. Kaci'Sergei today. Will call if abnormal. Rh type: Positive [place] Depression Score = 3 Follow-up in 4 weeks at which time we will get ultrasound for growth due to the presence of a bicornuate uterus. documented in this encounter Plan of Treatment Not on filedocumented as of this encounter Results US OB Follow-Up For Growth Single (Includes YENNY) (11/27/2018 11:34 AM CDT) Anatomical Region Laterality Modality Pelvis Ultrasound Specimen (Source) Anatomical Collection Method Collection Time Re ceived Time Location / / Volume Laterality 11/27/2018 11:13 AM CDT Impressions 11/27/2018 11:48 AM CDT COMPARISON: ??09/07/2018 TECHNIQUE: Limited ultrasound examinatio n was performed for evaluation of growth, amniotic fluid index (YENNY). Type of Gestation: ??Holliday. Presentation: ??TRANSVERSE Movement Present: ??Yes Cardiac Rate: ??139 bpm and is regular 4-quadrant YENNY: 13.8 cm. Normal. Q1: 3.0 cm. Q2: 3.1 cm. Q3: 4.8 cm. Q4: 2.9 cm. Placental Position: POSTERIOR. Normal. Cervical Length (cm): ??4.2 ??Within nor mal Measurements (Source Hadlock): BPD: ??7.7 cm = 31w0d HC: 29.7 cm = 32w6d AC: ??26.3 cm = 30w3d FL: ??5.9 cm = 30w5d Anatomic Ratios: ??FERRARA ratio normal at 1. 13 Abdominal Circumference Percentile: 47.0 % Estimated Weight: ??1647 grams Weight Percentile: 51.2% Other Findings: None. GA by LMP: ??30w3d GA by Prior US: ??30w4d GA by today's US: ??31w0d CHERI by today's US: ?? IMPRESSION: Single fetus is present in t ransverse lie with head on the right side of the maternal abdomen. Placenta posterior. Composite gestational age is 31 weeks. Abdominal circumference at 47%. Good growth since previous study. Procedure Note Vamshi Louie MD - 11/27/2018Form atting of this note might be different from the original. IMPRESSION COMPARISON: 09/07/2018 TECHNIQUE: Limited ultrasound examinatio n was performed for evaluation of growth, amniotic fluid index (YENNY). Type of Gestation: Holliday. Presentation: TRANSVERSE Movement Present: Yes Cardiac Rate: 139 bpm and is regular 4-quadrant YENNY: 13.8 cm. Normal. Q1: 3.0 cm. Q2: 3.1 cm. Q3: 4.8 cm. Q4: 2.9 cm. Placental Position: POSTERIOR. Normal. Cervical Length (cm): 4.2 Within normal Measurements (Source Hadlock): BPD: 7.7 cm = 31w0d HC: 29.7 cm = 32w6d AC: 26.3 cm = 30w3d FL: 5.9 cm = 30w5d Anatomic Ratios: FERRARA ratio normal at 1.13 Abdominal Circumference Percentile: 47.0 % Estimated Weight: 1647 grams Weight Percentile: 51.2% Other Findings: None. GA by LMP: 30w3d GA by Prior US: 30w4d GA by today's US: 31w0d CHERI by today's US: IMPRESSION: Single fetus is present in t ransverse lie with head on the right side of the maternal abdomen. Placenta posterior. Composite gestational age is 31 weeks. Abdominal circumference at 47%. Good growth since previous study. Wanda Guallpa MD [facility] documented in this encounter Visit Diagnoses Diagnosis Bicornate uterus complicating , first trimester Bicornate uterus complicating , first trimester documented in this encounter Care Teams Boat Tender Relationship Specialty Start Date End Date Needs Pcp, Assignment PCP - General 09/07/18 10/12/19 [place] [address] documented as of this encounter
--- OUTSIDE RECORDS SUMMARY | 2022-04-25 22:34 | XMS_ITS | Encounter Summary ---
:1985 Author Organization [employer] Address [address] [place] [address] Care Team Providers Name Role Phone Carolanneden Rosemarievenecia Flores APRN, MANIFOLD OPERATOR Primary Care Provider [phone] Reason for Visit Reason Comments Future Appointments Encounter Details Date Type Department Care Team Description 06/05/2018 Telephone [place] 1515 Wanda Guallpa MD Future Appointments Obstetrics/Gynecolog y 1515 [facility] 1515 [facility] . [address] [place] [address] [place], [place] [phone] (Wo rk) Social History Tobacco Use Types Packs/Day Years Used Date Smoking Tobacco: Never Smokeless Tobacco: Never Alcohol Use Standard Drinks/Week Comments No 0 (1 standard drink = 0.6 oz pure alcoho l) none Sex Assigned at Date Recorded Not on file documented as of this encounter Nursing Notes Lavonne Kwan RN - 06/07/2018 2:46 PM CST Called patient with message from provider, see note. Patient verbalizes understanding, rescheduled first NOB appointment and has no further questions or concerns. LE WRAPPER Wanda Guallpa MD - 06/07/2018 2:20 PM CST Nurse to contact pt with the following information: Her initial visit should be the week of 06/19/18 which is 2 weeks earlier than scheduled. She has a bicornuate uterus. LE WRAPPER Alexandra Dias RN - 06/05/2018 8:39 AM CST Reason for Call: Clinician input needed on symptom based concern. Next Steps: Document further recommendations and route to appropriate person or pool. Caller IS expecting a call back from Care Team. Additional Information: Patient is newly , LMP 06/29/17. Is scheduled for NOB1 but want to know if she needs to be seen sooner. States she was seen every two weeks starting at 8 weeks her last . Please advise. Thank you! Future Appointments Date Time Provider Department Center 07/03/2018 3:30 PM Wanda Guallpa MD [facility] LE WRAPPER documented in this encounter Plan of Treatment Not on filedocumented as of this encounter Visit Diagnoses Not on filedocumented in this encounter Care Teams Dogger Relationship Specialty Start Date End Date Rosemarie Fuentes, PATENT LEGAL ASSISTANT, MANIFOLD OPERATOR PCP - General Nurse Practitioner 07/06/16 06/18/18 [address] [place] [address] documented as of this encounter
--- OUTSIDE RECORDS SUMMARY | 2022-04-25 22:34 | XMS_ITS | Encounter Summary ---
:1985 Author Organization [facility] Address [address] [place] [address] Care Team Providers Name Role Phone Needs Pcp, Assignment Primary Care Provider Reason for Visit Reason Comments Routine Visit Encounter Details Date Type Department Care Team Description 09/07/2018 Routine [place] 1515 Wanda Guallpa Routi ne Obstetrics/Gynecolog MD Visit y 1515 [facility] [address] [place] [phone] Social History Tobacco Use Types Packs/Day Years Used Date Smoking Tobacco: Never Smokeless Tobacco: Never Alcohol Use Standard Drinks/Week Comments Not Currently 0 (1 standard drink = 0.6 oz pure alcoho l) 2/week Sex Assigned at Date Recorded Not on file documented as of this encounter Last Filed Vital Signs Vital Sign Reading Time Taken Comments Blood Pressure 112/80 09/07/2018 11:32 AM CDT Pulse - - Temperature - - Respiratory Rate - - Oxygen Saturation - - Inhaled Oxygen Concentration - - Weight 77.7 kg (171 lb 3.2 oz) 09/07/2018 11:32 AM CDT Height - - Body Mass Index 26.03 06/19/2018 3: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 Was placed on a different antibiotic for her UTI and an antihistamine. Follow up: 5 weeks. Summary of ultrasound results. Date: today Location: [facility] Location of placenta: posterior Length of cervix : normal Amniotic fluid level: normal anatomy survey: normal Gestational age confirmed: yes documented in this encounter Plan of Treatment Not on filedocumented as of this encounter Visit Diagnoses Diagnosis Bicornate uterus complicating , first trimester documented in this encounter Care Teams Physical Meteorologist Relationship Specialty Start Date End Date Needs Pcp, Assignment PCP - General 09/07/18 10/12/19 [place] [address] documented as of this encounter
--- OUTSIDE RECORDS SUMMARY | 2022-04-25 22:34 | XMS_ITS | Encounter Summary ---
:1985 Author Organization Team [facility] Address [address] [place] [address] Care Team Providers Name Role Phone Needs Pcp, Assignment Primary Care Provider Reason for Visit Procedure/Equipment (Routine) - Incomplete Specialty Diagnoses / Procedures Referred By Contact Refer red To Contact Diagnoses Bicornuate uterus affecting , antepartum Wanda Guallpa MD Procedures US OB 20 Weeks Complete Single [address] [facility] [place] [address] [place] [phone] Referral ID Status Reason Start Date Expiration Date Visits V isits Requested Authorized [id number] Incomplete 08/11/2018 11/10/2019 1 1 Encounter Details Date Type Department Care Team Description 09/07/2018 Ancillary Procedure [place] 1515 Radhames Guallpau ate uterus Ultrasound MD Wanda affecting , [address] [place] [address] [facility] [address] [place] [address] [place] [address] [place] [phone] Social History Tobacco Use Types Packs/Day Years [...] Date/Time Associated Diagnosis Comme nts US OB 20 WEEKS Routine 09/07/2018 2:49 PM Bicornuate uterus Re sults for this COMPLETE SINGLE CDT affecting , proc edure are in antepartum the results section. documented in this encounter Results US OB 20 Weeks Complete Single (09/07/2018 2:49 PM CDT) Anatomical Region Laterality Modality Pelvis Ultrasound Specimen (Source) Anatomical Collection Method Collection Time Re ceived Time Location / / Volume Laterality 09/07/2018 2:05 PM CDT Impressions 09/07/2018 3:34 PM CDT IMPRESSION: Single living fetus, EGA 19 weeks 0 days, and unremarkable morphologic survey. Narrative 09/07/2018 3:34 PM CDT COMPARISON: ??None. ?? TECHNIQUE: A level 1 ultrasound was perf ormed. Transabdominal imaging was performed. FINDINGS: ??Type of Gestation: ??Singlet on. Presentation: CEPHALIC Movement Present: ??Yes ?? Cardiac Rate: 155 bpm and is regular Amniotic Fluid Volume: ??Normal Placental Position: ??POSTERIOR. Normal. Cervical Length (cm): ??3.9 ??Within nor mal ANATOMIC SURVEY RESULTS: The anatomic survey includes assessment of: Cranium, Lateral Ventricles, Cerebellum, Cisterna Magna, Nuchal Fold, Face: Orbits, Upper Lip, Profile, Spine: Long C,T,L,S, Transverse Sacrum, Heart: 4 Chamb er View, M-Mode, Right ventricular outfl ow tract, Left ventricular outflow tract, Abdomen: Cord Insertion, 3-Vessel Cord, Bladder, Stomach, Diaphragm, Kidneys, Extremities: presence of arms and legs. Measurements (Source [place]): BPD: ??4.4 cm = 19w2d HC: 16.3 cm = 19w0d AC: ??13.5 cm = 18w6d FL: ??2.9 cm = 19w0d Anatomic Ratios: ??Within normal limits. GA by LMP: ??18w6d GA by Prior US: ??19w0d GA by today's US: ??19w0d CHERI by today's US: ?? Procedure Note Vineet Montoya MD - 09/07/2018Format ting of this note might be different from the original. COMPARISON: None. TECHNIQUE: A level 1 ultrasound was perf ormed. Transabdominal imaging was performed. FINDINGS: Type of Gestation: Holliday. Presentation: CEPHALIC Movement Present: Yes Cardiac Rate: 155 bpm and is regular Amniotic Fluid Volume: Normal Placental Position: POSTERIOR. Normal. Cervical Length (cm): 3.9 Within normal ANATOMIC SURVEY RESULTS: The anatomic survey includes assessment of: Cranium, Lateral Ventricles, Cerebellum, Cisterna Magna, Nuchal Fold, Face: Orbits, Upper Lip, Profile, Spine: Long C,T,L,S, Transverse Sacrum, Heart: 4 Chamber View, M-Mode, Right ventricular outflow tract, Left ve ntricular outflow tract, Abdomen: Cord Insertion, 3-Vessel Cord, Bladder, Stomach, Diaphragm, Kidneys, Extremities: presence of arms and legs. Measurements (Source [place]): BPD: 4.4 cm = 19w2d HC: 16.3 cm = 19w0d AC: 13.5 cm = 18w6d FL: 2.9 cm = 19w0d Anatomic Ratios: Within normal limits. GA by LMP: 18w6d GA by Prior US: 19w0d GA by today's US: 19w0d CHERI by today's US: IMPRESSION IMPRESSION: Single living fetus, EGA 19 weeks 0 days, and unremarkable morphologic survey. Wanda Guallpa MD [facility] documented in this encounter Visit Diagnoses Diagnosis Bicornuate uterus affecting , a ntepartum Congenital abnormalities of verenice mary, antepartum documented in this encounter Care Teams Brick And Tile Making Machine Operator Relationship Specialty Start Date End Date Needs Pcp, Assignment PCP - General 09/07/18 10/12/19 [place] [address] documented as of this encounter
--- OUTSIDE RECORDS SUMMARY | 2022-04-25 22:34 | XMS_ITS | Encounter Summary ---
:1985 Author Organization [facility] Address [address] [place] [address] Care Team Providers Name Role Phone Needs Pcp, Assignment Primary Care Provider Reason for Visit Procedure/Equipment (Routine) - Incomplete Specialty Diagnoses / Procedures Referred By Contact Refer red To Contact Diagnoses Bicornate uterus complicating , first trimester Wanda Guallpa MD Procedures US OB Follow-Up For Growth Single (Includes YENNY) [address] [facility] [address] [place] [address] [place] [phone] Referral ID Status Reason Start Date Expiration Date Visits V isits Requested Authorized [id number] Incomplete 10/30/2018 01/29/2020 10 10 Encounter Details Date Type Department Care Team Description 11/27/2018 Ancillary [place] 1515 [place], Bicornate uter us Procedure Ultrasound MD Wanda complicating [address] [place] 1515 [facility] pregnanc y, first [address] [place] [address] trimester [place] [address] [place] [phone] Social History Tobacco Use Types Packs/Day [...] Comme nts US OB FOLLOW-UP FOR Routine 11/27/2018 11:34 Bicornate uterus Results for this GROWTH SINGLE [...] growth since previous study. Wanda Guallpa MD [facility] documented in this encounter Visit Diagnoses Diagnosis Bicornate uterus complicating , first trimester documented in this encounter Care Teams Military Logistics Specialist Relationship Specialty Start Date End Date Needs Pcp, Assignment PCP - General 09/07/18 10/12/19 [place] [address] documented as of this encounter
--- OUTSIDE RECORDS SUMMARY | 2022-04-25 22:34 | XMS_ITS | Encounter Summary ---
:1985 Author Organization [facility] Address [address] [place] [address] Care Team Providers Name Role Phone Unavailable Primary Care Provider Unavailable Reason for Visit Reason Comments HIVES Encounter Details Date Type Department Care Team Description 09/04/2018 Nurse Triage [place]ine Found, No Pcp, HIVES 14[address] [facility] . [address] [facility] [place] [address] [place], [place] [phone] Social History Tobacco Use Types Packs/Day Years Used Date Smoking Tobacco: Never Smokeless Tobacco: Never Alcohol Use Standard Drinks/Week Comments Not Currently 0 (1 standard drink = 0.6 oz pure alcoho l) 2/week Sex Assigned at Date Recorded Not on file documented as of this encounter Nursing Notes Munira Garcia RN - 09/04/2018 6:12 AM CDT Reason for Disposition ??? Widespread hives Pt calling, states she woke up this morning with widespread hives, area of hives on legs and back, severe itch, denies difficulty breathing, denies wheezing, denies exposure to any allergen within previous 2-3 hours. Pt is allergic to Benadryl. Advised per home care instructions, pt to take Cetirizine, safe in . Pt states understanding. Protocols used: [id number] Emma Laura - 09/04/2018 6:08 AM CDT Symptoms Describe your symptoms (if pain, include location): Hives When did they start? This morning Additional comments (related to the above concern): Patient is 17 week . If a prescription is needed, patient would [...]
--- OUTSIDE RECORDS SUMMARY | 2022-04-25 22:34 | XMS_ITS | Encounter Summary ---
:1985 Author Organization [email or web address] Address [address] [place] [address] Care Team Providers Name Role Phone Unavailable Primary Care Provider Unavailable Encounter Details Date Type Department Care Team Description 07/25/2018 Notes/Orders Maryellen Ritchie Encoun ter for supervision of other normal in first trimester (Primary Dx); Medicine CGC Encounter for screening of mot her 1515 [facility] . [address] [place] [address] [address] [facility] [address] [place] [address] Social History Tobacco Use Types Packs/Day Years Used Date Smoking Tobacco: Never Smokeless Tobacco: Never Alcohol Use Standard Drinks/Week Comments Not Currently 0 (1 standard drink = 0.6 oz pure alcoho l) 2/week Sex Assigned at Date Recorded Not on file documented as of this encounter Plan of Treatment Not on filedocumented as of this encounter Results Maternal Screen (07/26/2018 1:54 PM LAUNDRY PRICING CLERK) P athologist Signature Free Beta hCG 22.35 ng/mL PN SOFT Value Free Beta hCG 1.04 MoM PN SOFT MoM Free Beta hCG 50 % PN SOFT % SAHRA-A Value 715.00 mU/I PN SOFT SAHRA-A MoM 0.39 MoM PN SOFT SAHRA-A % 10 % PN SOFT AFP Value 13.23 U/ml PN SOFT AFP MoM 1.14 MoM PN SOFT AFP % 60 % PN SOFT PIGF Value 30.70 pg/mL PN SOFT PIGF MoM 1.11 MoM PN SOFT PIGF % 60 % PN SOFT Inhibin-A 294.01 pg/mL PN SOFT Value Inhibin-A MoM 0.98 MoM PN SOFT Inhibin-A % 50 % PN SOFT NT Value 1.80 mm PN SOFT NT Delta 0.20 PN SOFT NT% 50 % PN SOFT Nasal Bone Present PN SOFT Risk Table See Note PN SOFT Comment: Risk Table ?Risk Before Risk After ??Results ?Cut-Off ?? Screenin g ?? Screening DOWN SYNDROME 1 in 300 ??1 in 397 ?1 in >81981 WITHIN RANGE TRISOMY 18/13 1 in 150 ??1 in 723 ?1 in >48257 WITHIN RANGE SEE ORIGINAL FOR GRAPH Comments See Note PN SOFT Comment: Recommendations: Second trimester MSAFP and/or ultrasound for open neural tube defects. ??If MSAFP or other second trim vj screening is performed, blood collection must be betw een 08/12/2018 and 09/29/2018. Comments: First trimester AFP results are used onl y for Down Syndrome risk assessment (not T18/13) and are not intended for open neural tube defect risk assessment. Nasal bone results are used only for the Down syndrome risk calculation but not for Trisomy 18/13. CAUTION: This test was developed and its performance characteristics determined by [employer]. It has not been cleared by the U.S. Food and Drug A dministration. ??The methods and performance characteristics have been reviewed and approved by the [facility]. The results do not eliminate the possibility that the may be associated with defects inc luding Down syndrome and trisomy 18, trisomy 13 or other diso rders not detectable by this screening test. ??The multiple o f the median and risk results provided in this report are depe ndent on the accuracy of the demographic and ultrasound inform ation provided. The ordering physician should ensure that th e ultrasound information has been obtained from a son ographer who is credentialed by and participating in NT/ NB quality review program such as NTQR or FMF. [employer] assumes no responsibility for ensuring that the ult rasound information has been obtained by a properly credenti aled nutrition instructor, including verification of updates to cre dentialing status. This report contains protected healthcar e information. The recipient shall not disclose this inform ation unless required to provide appropriate medical care with out the permission of the patient. Any recommendations or comm ents on specific analytes are provided as a courtesy to t he ordering physician and do not constitute medical advice. Specimen Anatomical Collection Method Collection Time Receive d Time (Source) Location / / Volume Laterality Blood specimen 07/26/2018 1:54 PM 019 6:58 (specimen) LAUNDRY PRICING CLERK PM LAUNDRY PRICING CLERK Narrative PN SOFT - 07/29/2018 5:16 PM LAUNDRY PRICING CLERK Performed at [facility] [address] [place] [address] CLIA number [id number] Maryellen Ramirez [facility] Performing Organization Address City/State/ZIP Code Phon e Number PN SOFT [address] [place] [address] [phone] documented in this encounter Visit Diagnoses Diagnosis Encounter for supervision of other jonathan l in first trimester - Primary Encounter for screening of mot her Unspecified screening Encounter for supervision of other jonathan l in first trimester Encounter for screening of mot her Unspecified screening documented in this encounter
--- OUTSIDE RECORDS SUMMARY | 2022-04-25 22:34 | XMS_ITS | Encounter Summary ---
:1985 Author Organization [facility] Address [address] [place] [address] Care Team Providers Name Role Phone Unavailable Primary Care Provider Unavailable Reason for Visit Procedure/Equipment (Routine) - Incomplete Specialty Diagnoses / Procedures Referred By Contact Refer red To Contact Diagnoses Bicornate uterus complicating , first trimester Wanda Guallpa MD Procedures [place] US NT [address] [facility] [address] [address] [place] [phone] Referral ID Status Reason Start Date Expiration Date Visits V isits Requested Authorized [id number] Incomplete 06/19/2018 09/18/2019 10 10 Encounter Details Date Type Department Care Team Description 07/26/2018 Ancillary [place] Maternal [place], Bicornate uterus Procedure Medicine MD Wanda complicating 1515 [place] 1515 [facility] pregnanc y, 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 documented in this encounter Results [place] US NT (07/26/2018 1:29 PM BASE WAD OPERATOR ADJUSTER) Anatomical Region Laterality Modality Pelvis Ultrasound Study GA Study Date Study CHERI Working CHERI (Source) W eight (Method) 12w5d 07/26/2018 02/02/2019 Result Name Value Comments GA by US Calc 90 days 90 Gest Sac CRL 6.35 cm 89 NT 1.8 mm FHR 167 bpm Specimen (Source) Anatomical Location Collection Method / Collectio n Time Received Time / Laterality Volume Narrative 07/26/2018 2:17 PM BASE WAD OPERATOR ADJUSTER Patient Name: Estefania Mckeon ??Charge Hand: Gisela Centeno RDMS Patient ??GA Prior to Exam : 12w5d , Age: 1 1985, 33 y.o. ??GA by Aidan kincaid US: 12w6d LMP: Patient's last menstrual period was 04/28/2018 (exact date). ??GA Selected: 12w5d by LMP Pregnancies: ??CHERI Selected: 01/21 Hx/Indications: ? Evaluation Gestation Type Holliday Cardiac Activity Present Heart Rate 167 bpm Motion Normal Presentation Transverse Placenta Location Posterior Placenta Appearance/Findings Normal ?? Amniotic Fluid Normal Placenta Cord Insertion Inadequately Vis ualized ? Biometry & Growth Measurement Value Rank GA CRL 6.35 cm 42% 12w5d NT 1.8 mm ?? First Trimester Gestational Sac Normal Pole Present Yolk Sac Not Seen Amnion Not Seen Nuchal Translucency Normal ? Anatomy Finding Normal Abnormal Inadequately Vis ualized Nasal Bone ??x ? Stomach ??x ? Bladder ??x ? Right Upper Extremity ??x ? Left Upper Extremity ??x ? Right Lower Extremity ??x ? Left Lower Extremity ??x ? Maternal Evaluation Cervix Normal Uterus Normal Cervical Length (cm) Approach 3.6 Transabdominal Right Ovary Normal With Fundal Pressure (cm) N/A ?? Left Ov loida Normal Funneling Absent Right Adnexa Normal Cul-de-sac No fluid seen Left Adnexa Nor mal ? Left Ovary: Probable corpus lutium in th e left ovary. ?? 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 Impression This is a normal early scan at is consistent with dates. ??The appears to be in the left horn of the known bicornuate uterus (as was the previous ). The NT measurement is normal. ??The screening labs are pending. ?? Wanda Guallpa MD [facility] documented in this encounter Visit Diagnoses Diagnosis Bicornate uterus complicating , first trimester documented in this encounter
--- OUTSIDE RECORDS SUMMARY | 2022-04-25 22:34 | XMS_ITS | Encounter Summary ---
:1985 Author Organization [email or web address] Address [address] [place] [address] Care Team Providers Name Role Phone Needs Pcp, Assignment Primary Care Provider Encounter Details Date Type Department Care Team Description 10/19/2018 Lab Visit [facility] Iron deficiency anemia, unsp ecified iron deficiency anemia type; [address] Screening for iron deficienc y anemia [place] [address] Social History Tobacco Use Types Packs/Day Years Used Date Smoking Tobacco: Never Smokeless Tobacco: Never Alcohol Use Standard Drinks/Week Comments Not Currently 0 (1 standard drink = 0.6 oz pure alcoho l) 2/week Sex Assigned at Date Recorded Not on file documented as of this encounter Progress Notes Stephanie Grider MD - 10/19/2018 12:00 PM CDT Borderline anemia. Please encourage pt to take OTC iron supplement or incorporate iron rich foods into diet. documented in this encounter Plan of Treatment Not on filedocumented as of this encounter Procedures Procedure Name Priority Date/Time Associated Diagnosis Comme nts HEMOGLOBIN, BLOOD Routine 10/19/2018 11:53 AM Screening for ir on Results for this CDT deficiency anemia procedure are in the results section. FERRITIN Routine 10/19/2018 11:53 AM Iron deficiency Resul ts for this CDT anemia, unspecified procedur e are in iron deficiency the results anemia type section. documented in this encounter Results (ABNORMAL) Hemoglobin Ob (10/19/2018 11:53 AM CDT) athologist Signature Hemoglobin 11.0 (L) 12.0 - 10/19/2018 [place] 15.5 g/dL 12:00 PM CDT LABORATORY Specimen Anatomical Collection Method / Collection Time Recei doc Time (Source) Location / Volume Laterality Blood Venipuncture / 10/19/2018 11:53 9 Unknown AM CDT 11:53 AM CDT Stephanie Grider MD LAB_1 Performing Organization Address City/[facility]/ZIP Code Phon e Number [facility] [address] [place] [phone] (ABNORMAL) Ferritin [ISAK] (10/19/2018 11:53 AM CDT) athologist Signature Ferritin 4 (L) 9 - 204 10/19/2018 [facility] ng/mL 4:09 PM CDT LABORATORY Specimen Anatomical Collection Method / Collection Time Recei doc Time (Source) Location / Volume Laterality Blood Venipuncture / 10/19/2018 11:53 9 Unknown AM CDT 11:53 AM CDT Stephanie Grider MD LAB_1 Performing Organization Address City/[facility] Phon e Number [facility] [address] [place] [address] documented in this encounter Visit Diagnoses Diagnosis Iron deficiency anemia, unspecified iron deficiency anemia type Screening for iron deficiency anemia documented in this encounter Care Teams Floor Sweeper Relationship Specialty Start Date End Date Needs Pcp, Assignment PCP - General 09/07/18 10/12/19 [place] [address] documented as of this encounter
--- OUTSIDE RECORDS SUMMARY | 2022-04-25 22:34 | XMS_ITS | Encounter Summary ---
:1985 [facility] Address [address] [place] [address] Care Team Providers Name Role Phone Unavailable Primary Care Provider Unavailable Reason for Referral Procedure/Equipment (Routine) - Incomplete Specialty Diagnoses / Procedures Referred By Contact Refer red To Contact Diagnoses Bicornate uterus complicating , first trimester Wanda Guallpa MD Procedures [place] US NT [address] [facility] [place] [address] [place] [phone] Referral ID Status Reason Start Date Expiration Date Visits V isits Requested Authorized [id number] Incomplete 06/19/2018 09/18/2019 10 10 ATION AGENT Reason for Visit Reason Comments INITIAL VISIT Encounter Details Date Type Department Care Team Description 06/19/2018 Initial Delia 1515 aWnda Guallpa INITI AL Obstetrics/Gynecolog VISIT y 1515 [facility] [facility] [address] [place] [phone] Social History Tobacco Use Types Packs/Day Years Used Date Smoking Tobacco: Never Smokeless Tobacco: Never Alcohol Use Standard Drinks/Week Comments Yes 0 (1 standard drink = 0.6 oz pure alcoho l) 2/week Sex Assigned at Date Recorded Not on file documented as of this encounter Last Filed Vital Signs Vital Sign Reading Time Taken Comments Blood Pressure 118/76 06/19/2018 3:35 PM MIGRATION AGENT Pulse 104 06/19/2018 3:35 PM MIGRATION AGENT Temperature - - Respiratory Rate - - Oxygen Saturation - - Inhaled Oxygen Concentration - - Weight 74.2 kg (163 lb 8 oz) 06/19/2018 3:35 PM MIGRATION AGENT Height 172.7 cm (5' 8) 06/19/2018 3:35 PM MIGRATION AGENT Body Mass Index 24.86 06/19/2018 3:35 PM MIGRATION AGENT documented in this encounter Patient Instructions Patient InstructionsStLy degroot LPN - 06/19/2018 3:30 PM CST Thank you for choosing [facility] for your care. We recommend you review the following information in the book Your Guide to and the additional materials you received: ?? Keeping Track of Your Baby's Health - Testing ?? Diet & Nutrition Additional Handouts ?? Permission to Verbally Discuss Protected Health Information with Family and Friends ?? A Family Guide to Eating Fish brochure ?? Center ?? [facility] brochure ?? Healthy Beginnings ?? [facility] ?? Health & Care Store ATION AGENT documented in this encounter Progress Notes Wanda Guallpa MD - 06/19/2018 3:30 PM CST Subjective: Date of visit: 06/19/2018 Estefania Mckeon is being seen today for initial care. She is known to have a bicornuate uterus. After having 2 spontanesou miscarriage she went full term with her third and had a vaginal delivery. To see complete documentation of visit, please go Chart Review and select Episode dated 06/19/2018 . Patient's last menstrual period was 04/28/2018 (exact date). Gestational age: 7w3d confirmed today by ultrasound. Current symptoms: Nausea: no. Vomiting: no. Bleeding: yes. Brown spotting 2 weeks ago. Headaches - prior 5-6 coffees per day now one a day. Fatigue, breast tenderness. OB History Para Term AB Living 4 1 1 0 2 1 SAB TAB Ectopic Multiple Live Births 2 0 0 0 1 # Outcome Date GA Lbr Mic/2nd Weight Sex Delivery Anes PTL Lv 4 Current 3 Term 05/08/15 38w3d 6 lb 3 oz (2.807 kg) F Vag-Spont N CARMEN Name: Lucrecia Lewis SAB 07/22/11 1 SAB Past Medical History: Diagnosis Date ??? Bicornuate uterus ??? Blood transfusion, without reported diagnosis ??? Heartburn ??? Kidney stones 10 stones [...] Maternal Grandfather ??? Cancer, Breast Paternal Grandmother Current Outpatient Medications Medication Sig Dispense Refill ? ? MV & Min w/FA-DHA ( ADULT GUMMY/DHA/FA OR) No current facility-administered medications for this visit. Allergies Allergen Reactions ??? Amoxicillin Hives ??? Diphenhydramine Breathing Difficulty and Palpitations Social History Socioeconomic History ??? Marital status: Single Spouse name: Not on file ??? Number of children: Not on file ??? Years of education: Not on file ??? Highest education level: Not on file Social Needs ??? Financial resource strain: Not on file ??? Food insecurity - worry: Not on file ??? Food insecurity - inability: Not on file ??? Transportation needs - medical: Not on file ??? Transportation needs - non-medical: Not on file Occupational History ??? 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 Smoking status: Never Smoker ??? Smokeless tobacco: Never Used Substance and Sexual Activity ??? Alcohol use: Yes Comment: 2/week ??? Drug use: No ??? Sexual activity: Yes Partners: Male control/protection: None Other Topics Concern ??? Bike Helmet No ??? City Water Yes ??? Exercise No ??? Guns in home No ??? Seat Belt Yes ??? Special Diet No ??? Weight Concern Yes Social History Narrative ??? Not on file Relationship with FOB: spouse, living together. Mother's ethnicity: Father's ethnicity: Objective: BP 118/76 (BP Location: Right Arm, BP Cuff Size: Adult Regular/Long) Pulse (!) 104 Ht 5' 8 (1.727 m) Wt 163 lb 8 oz (74.2 kg) LMP 04/28/2018 (Exact Date) BMI 24.86 kg/m?? General Appearance: Alert, cooperative, no distress, appears stated age Neck: Supple, symmetrical, trachea midline, no adenopathy; thyroid: no enlargement/tenderness/nodules Lungs: Clear to auscultation bilaterally, respirations unlabored Heart: Regular rate and rhythm, S1 and S2 normal, no murmur, rub or gallop Abdomen: Soft, non-tender, no masses, no organomegaly Genitalia: Normal female without lesion, discharge or tenderness Pelvic: Vagina, cervix, urethra and urethral meatus are normal. The uterus is 7 week size. The adnexa are without masses. Extremities: Extremities normal, atraumatic, no cyanosis or edema Skin: Skin color, texture, turgor normal, no rashes or lesions Lymph nodes: Cervical, supraclavicular, and axillary nodes normal . Transvaginal ultrasound by myself. Indication: confirm EDC and viability Findings: Single living intrauterine seen in the left side of the uterus. La Conner-Rump Length: 9.8 mm Gestational age by ultrasound: 7 and 1/7 weeks Gestational age by LMP: 7 and 3/7 weeks CHERI confirmed: yes Assessment: Estimated Date of Delivery: 02/02/19 DIAGNOSIS for this visit: Diagnosis and Associated Orders ICD-10-CM 1. Bicornate uterus complicating , first trimester O34.01 Urinalysis Routine(Micro If Pos) Q51.3 Urine Culture Latonia US NT 2. Screening for diabetes mellitus Z13.1 HGB A1C 3. Encounter for blood typing Z01.83 Blood Group & RH (Blood Type) 4. screening for isoimmunization Z36.5 Antibody Screen 5. Screening for blood disease Z13.0 HEMOGRAM/PLTS/DIFF 6. Screening examination for venereal disease Z11.3 HEP B SURFACE ANTIGEN, NO REFLEX LAB HIV-1 p24 AND HIV-1/HIV-2 ANTIBODIES Treponema Screen 7. Screening examination for rubella Z11.59 Rubella Immune Status, IgG 8. Encounter for drug screening Z02.83 Drugs of Abuse Screen, Urine, w/ conf 9. Screening for malignant neoplasm of cervix Z12.4 Pap Test Order Plan: Labs ordered as listed with the associated diagnosis above. vitamins. Problem list reviewed and updated. Education: 1.?? Discussed routine care, as well as schedule of appointments. 2.?? Discussed routine blood tests. She desires 1st trimester screening. 3.?? Discussed labor and delivery coverage and facilities at [place]. 4.?? Routine counseling done including diet, exercise, seat belts, Birthing classes and contact numbers for problems and concerns. Follow-up in 2 weeks 25 min of 45 min visit spent on counseling and coordination of care. ATION AGENT documented in this encounter Plan of Treatment Not on filedocumented as of this encounter Procedures Procedure Name Priority Date/Time Associated Comments Diagnosis PAP TEST ORDER Routine 06/19/2018 4:16 PM Screening for Result s for this MIGRATION AGENT malignant neoplasm procedure are in of cervix the results section. HPV WITH 16 18 Routine 06/19/2018 4:16 PM Results for this GENOTYPING, MIGRATION AGENT procedure are i n CERVICAL/ENDOCERVICA the res ults L section. ANATOMICAL PATH Routine 06/19/2018 4:16 PM Result s for this LIQUID BASED MIGRATION AGENT procedure are i n the results section. documented in this encounter Results Latonia US NT (07/26/2018 1:29 PM MIGRATION AGENT) Anatomical Region Laterality Modality Pelvis Ultrasound Study GA Study Date Study CHERI Working CHERI (Source) W eight (Method) 12w5d 07/26/2018 02/02/2019 Result Name Value Comments GA by US Calc 90 days 90 Gest Sac CRL 6.35 cm 89 NT 1.8 mm FHR 167 bpm Specimen (Source) Anatomical Location Collection Method / Collectio n Time Received Time / Laterality Volume Narrative 07/26/2018 2:17 PM MIGRATION AGENT Patient Name: Estefania Mckeon ??Rail Gang Supervisor: JacoboGisela [facility] Patient ??GA Prior to Exam : 12w5d , Age: 1 1985, 33 y.o. ??GA by Toda y's US: 12w6d LMP: Patient's last menstrual period [...] Impression This is a normal early scan th at is consistent with dates. ??The appears to be in the left horn of the known bicornuate uterus (as was the previous ). The NT measurement is normal. ??The screening labs are pending. ?? Wanda Guallpa MD RAD LATONIA US Rubella Immune Status, IgG (06/19/2018 4:20 PM MIGRATION AGENT) [facility] Method Time Signature Rubella Immune Immune PN SOFT Intepretation Rubella Units 2.82 >0.99 IV PN SOFT Comment: The magnitude of the measured result, ab ove the cutoff, is not indicative of the amount of antibody present. Specimen Anatomical Collection Method Collection Time Receive d Time (Source) Location / / Volume Laterality 06/19/2018 4:20 PM 9 9:34 MIGRATION AGENT PM MIGRATION AGENT Narrative PN SOFT - 06/20/2018 11:39 AM MIGRATION AGENT Performed at [address] [address] CLIA number [id number] Wanda Guallpa MD LAB_1 Performing Organization Address [facility] Phon e Number PN SOFT [address] [place] [address] Treponema Screen (06/19/2018 4:20 PM MIGRATION AGENT) [facility] Method Time Signature Treponema Non Reactive Non Reactive PN SOFT Screen Specimen Anatomical Collection Method Collection Time Receive d Time (Source) Location / / Volume Laterality 06/19/2018 4:20 PM 9 9:34 MIGRATION AGENT PM MIGRATION AGENT Narrative PN SOFT - 06/19/2018 10:10 PM MIGRATION AGENT Performed at [address] [address] CLIA number [id number] Wanda Guallpa MD LAB_1 Performing Organization Address [facility] Phon e Number PN SOFT [address] [place] [address] LAB HIV-1 p24 AND HIV-1/HIV-2 ANTIBODIES (06/19/2018 4:20 PM MIGRATION AGENT) [facility] Method Time Signature HIV-1 p24 Ag Nonreactive Nonreactive PN SOFT and HIV-1/HIV-2 Ab Specimen Anatomical Collection Method Collection Time Receive d Time (Source) Location / / Volume Laterality 06/19/2018 4:20 PM 9 9:34 MIGRATION AGENT PM MIGRATION AGENT Narrative PN SOFT - 06/19/2018 10:11 PM MIGRATION AGENT Performed at [address] [address] CLIA number [id number] Wanda Guallpa MD LAB_1 Performing Organization Address [facility] Phon e Number PN SOFT [address] [place] [address] HEP B SURFACE ANTIGEN, NO REFLEX (06/19/2018 4:20 PM MIGRATION AGENT) Patholo gist Method Time Signature Hep B Surf Ag Nonreactive Nonreactive PN SOFT Specimen Anatomical Collection Method Collection Time Receive d Time (Source) Location / / Volume Laterality 06/19/2018 4:20 PM 9 9:34 MIGRATION AGENT PM MIGRATION AGENT Narrative PN SOFT - 06/19/2018 10:10 PM MIGRATION AGENT Performed at [address] [address] CLIA number [id number] Wanda Guallpa MD LAB_1 Performing Organization Address [facility] Phon e Number PN SOFT [address] [place] [address] HEMOGRAM/PLTS/DIFF (06/19/2018 4:20 PM MIGRATION AGENT) P athologist Signature White Blood Cell 9.6 3.8 - 11.0 PN SOFT Count k/cmm Red Blood Cell 4.47 3.70 - PN SOFT Count 5.20 m/cmm Hemoglobin 13.2 11.8 - PN SOFT 15.5 g/dL Hematocrit 40.6 35.0 - PN SOFT 46.0 % Mean Corpuscular 90.8 80.0 - PN SOFT Volume 100.0 fL RDW 13.7 11.0 - PN SOFT 15.0 % Platelet Count 225 140 - 450 PN SOFT k/cmm Specimen Anatomical Collection Method Collection Time Receive d Time (Source) Location / / Volume Laterality 06/19/2018 4:20 PM 9 4:19 MIGRATION AGENT PM MIGRATION AGENT Narrative PN SOFT - 06/19/2018 4:25 PM MIGRATION AGENT Performed at [facility], [address] [place] [address] CLIA number [id number] Wanda Guallpa MD LAB_1 Performing Organization Address [facility] Phon e Number PN SOFT [address] [place] [address] Antibody Screen (06/19/2018 4:20 PM MIGRATION AGENT) athologist Signature Antibody Screen NEG PN SOFT Specimen Anatomical Collection Method Collection Time Receive d Time (Source) Location / / Volume Laterality 06/19/2018 4:20 PM 9 9:38 MIGRATION AGENT PM MIGRATION AGENT Narrative PN SOFT - 06/19/2018 11:03 PM MIGRATION AGENT Performed at [address] [address] CLIA number [id number] Wanda Guallpa MD PN BLOOD BANK ORDERS Performing Organization Address [facility] Phon e Number SOFT [address] [place] [address] Blood Group & RH (Blood Type) (06/19/2018 4:20 PM MIGRATION AGENT) athologist Signature Blood Type O POS PN SOFT Specimen Anatomical Collection Method Collection Time Receive d Time (Source) Location / / Volume Laterality 06/19/2018 4:20 PM 9 9:38 MIGRATION AGENT PM MIGRATION AGENT Narrative PN SOFT - 06/19/2018 11:03 PM MIGRATION AGENT Performed at [address] [address] CLIA number [id number] Wanda Guallpa MD PN BLOOD BANK ORDERS Performing Organization Address [facility] Phon e Number PN SOFT [address] [place] [address] HGB A1C (06/19/2018 4:20 PM MIGRATION AGENT) athologist [facility] HGB A1C 5.0 4.0 - 5.6 % PN SOFT Specimen Anatomical Collection Method Collection Time Receive d Time (Source) Location / / Volume Laterality 06/19/2018 4:20 PM 9 9:36 MIGRATION AGENT PM MIGRATION AGENT Narrative PN SOFT - 06/20/2018 12:32 PM MIGRATION AGENT Performed at [address] [address] CLIA number [id number] Wanda Guallpa MD LAB_1 Performing Organization Address [facility] Phon e Number PN SOFT [address] [place] [address] Pap Smear (06/19/2018 4:16 PM MIGRATION AGENT) Specimen (Source) Anatomical Collection Method Collection Time Re ceived Time Location / / Volume Laterality 06/19/2018 4:16 PM MIGRATION AGENT Narrative PN SOFT - 07/06/2018 3:36 PM MIGRATION AGENT FINAL GYNECOLOGICAL CYTOLOGY REPORT Pathology #: [id number] ?Date Obtained: 06/19/2018 ? Date Received: 06/20/2018 INTERPRETATION/RESULTS: Negative for Intraepithelial Lesion or M alignancy. SPECIMEN ADEQUACY: Satisfactory for Evaluation. ??Endocervi aminta cells/transformation zone component present. Verified on 07/01/2018 ??by MINIE BACCAM , CT(ASCP) (electronic signature) CLINICAL NOTES: ?Abnormal bleeding: No, LMP: 04/28/18, Menstrual status: , ?Current form of therapy: None a pply LIQUID BASED PAP SMEAR SPECIMEN TYPE: ?ROUTINE CERVICAL PAP TEST PLEASE NOTE: The pap smear is a screening test design ed to aid in the detection of cervical cancer and its pre cursor lesions. It is not a diagnostic procedure and marizol uld not be used as the sole means of detecting cervical cancer. Both false-positive and false-negative report s may occur. Performed at [facility], [facility] [place] [address] Wanda Guallpa MD LAB_1 Performing Organization Address [facility] Phon e Number PN SOFT [address] [place] [address] HPV with 16 18 Genotyping (06/19/2018 4:16 PM MIGRATION AGENT) [facility] Method Time Signature HPV High Risk Not Detected PN SOFT 16 HPV High Risk Not Detected PN SOFT 18 Other HPV High Not Detected PN SOFT Risk Not 16/18 Comment: ........................................ ................................. The Segundo HPV Test is a qualitative in v itro test for the detection of Human Papillomavirus in [facility] patient specimens. ??The test utilizes amplifica tion of target DNA by Polymerase Chain Reaction (PCR) and n ucleic acid hybridization for the detection of 14 hi gh-risk (HR) HPV types. The assay tests for high risk typ es (16, 18, 31, 33, 35, 39, 45, 51, 52, 56, 58, 59, 66 and 6 8). NOTE: This test was developed and its pe rformance characteristics determined by [facility]. It has not been cleared or approved by [facility]. The laboratory is regulated under CLIA as qualified to perform high-complexity testing. This test is used for clinical purposes. It should not be regarded as investigational or fo r research. Specimen Anatomical Collection Method Collection Time Receive d Time (Source) Location / / Volume Laterality 06/19/2018 4:16 PM 9 4:16 MIGRATION AGENT PM MIGRATION AGENT Narrative PN SOFT - 06/21/2018 1:28 PM MIGRATION AGENT Performed at [address] [address] CLIA number [id number] Wanda Guallpa MD LAB_1 Performing Organization Address City/State/ZIP Code [facility] e Number SOFT [address] [place] [address] Pap Test Order (06/19/2018 4:16 PM MIGRATION AGENT) Analysis Performed At [facility] Time Signature Pap Smear Collected PN SOFT Monolayer tracking test Specimen Anatomical Collection Method Collection Time Receive d Time (Source) Location / / Volume Laterality 06/19/2018 4:16 PM 9 4:10 MIGRATION AGENT AM MIGRATION AGENT Narrative PN SOFT - 06/19/2018 4:16 PM MIGRATION AGENT Performed at [address] [address] CLIA number [id number] Wanda Guallpa MD LAB_1 Performing Organization Address City/State/ZIP Code Phon e Number PN SOFT [address] [place] [address] documented in this encounter Visit Diagnoses Diagnosis Bicornate uterus complicating , first trimester - Primary Screening for diabetes mellitus Encounter for blood typing screening for isoimmunization Screening for blood disease Screening for unspecified disorder of bl ood and blood-forming organs Screening examination for venereal disea se Screening examination for rubella Encounter for drug screening Screening for malignant neoplasm of cerv ix Screening for malignant neoplasm of the cervix Screening for diabetes mellitus Encounter for blood typing screening for isoimmunization Screening for blood disease Screening for unspecified disorder of bl ood and blood-forming organs Screening examination for venereal disea se Screening examination for rubella Bicornate uterus complicating , first trimester Encounter for drug screening Bicornate uterus complicating , first trimester documented in this encounter
--- OUTSIDE RECORDS SUMMARY | 2022-04-25 22:34 | XMS_ITS | Encounter Summary ---
:1985 Author Organization [employer] Address [address] [place] [address] Care Team Providers Name Role Phone Unavailable Primary Care Provider Unavailable Reason for Visit Reason Comments SWELLING Encounter Details Date Type Department Care Team Description 07/23/2018 Nurse Triage Jan Nurse Line Found, No Pcp, SWELLING [address] [address] Social History Tobacco Use Types Packs/Day Years Used Date Smoking Tobacco: Never Smokeless Tobacco: Never Alcohol Use Standard Drinks/Week Comments Not Currently 0 (1 standard drink = 0.6 oz pure alcoho l) 2/week Sex Assigned at Date Recorded Not on file documented as of this encounter Nursing Notes Maryellen Car - 07/24/2018 7:58 AM CST Reason for Disposition ??? MODERATE hand swelling (e.g., visible swelling of hand and fingers; pitting edema) Protocols used: HAND [id number] Patient calling 12.3 weeks with complaints of on going bilateral hand swelling. States for the past week has been dealing with increased swelling to hands to the point wear hands will become numb and tingly. Called nurse line yesterday, see note below. Overnight swelling decreased, but as patient was up and moving this morning, swelling increased again. Reports intermittent headaches during the first trimester, and heartburn. Denies handing tingling or swelling this morning, swelling to legs or face, RUQ pain, vaginal bleeding, fluid, or abdominal pain. Reviewed protocol recommendations and care advice. Appointment scheduled for today. Patient verbalizes understanding and agrees with planof care. Problem list reviewed as related to this call. SHOVELER Maryellen Marie RN - 07/23/2018 2:56 PM CST Patient calling today 12w2d with new onset of ALEX hand swelling. This symptom is new for her within this week. She is experiencing some tingling numbness as well. No shortness of breath or difficulty breathing. No redness or fever. No headache. No facial or leg swelling. Care advice given perprotocol. Patient agreeable to call her OBGYN in the morning for appointment. Problem list reviewed as related to this call. Reason for Disposition ??? MODERATE hand swelling (e.g., visible swelling of hand and fingers; pitting edema) Protocols used: HAND [id number] SHOVELER documented in this encounter Plan of Treatment Not on filedocumented as of this encounter Visit Diagnoses Not on filedocumented in this encounter
--- OUTSIDE RECORDS SUMMARY | 2022-04-25 22:34 | XMS_ITS | Encounter Summary ---
:1985 Author Organization [facility] Address [address] [place] [address] Care Team Providers Name Role Phone Needs Pcp, Assignment Primary Care Provider Encounter Details Date Type Department Care Team Description 10/30/2018 Lab Visit Delia Laboratory Routine general medical exam ination at health care facility (Primary Dx); [address] [facility] . Screening for diabetes [place] [address] Social History Tobacco Use Types Packs/Day Years [...] Name Priority Date/Time Associated Diagnosis Comme nts GLUCOSE - 1 HR. Routine 10/30/2018 12:18 PM Screening for Resu lts for this P.C. PREG CDT diabetes mellitus procedure are in the results section. documented in this encounter Results Lab Glucose O'Mai Screen (10/30/2018 12:18 PM CDT) P athologist Signature Glucose, 1 78 70 - 135 10/30/2018 [facility] Hour OB mg/dL 4:26 PM CDT LABORATORY Challenge Specimen Anatomical Collection Method / Collection Time Recei doc Time (Source) Location / Volume Laterality Blood Venipuncture / 10/30/2018 12:18 9 Unknown PM CDT 12:18 PM CDT Wanda Guallpa MD LAB_1 Performing Organization Address City/State/ZIP Code Phon e Number [facility] [address] [place] [address] documented in this encounter Visit Diagnoses Diagnosis Routine general medical examination at [facility] facility - Primary Routine general medical examination at [facility] Screening for diabetes mellitus documented in this encounter Care Teams Silica Dry Press Helper Relationship Specialty Start Date End Date Needs Pcp, Assignment PCP - General 09/07/18 10/12/19 [place] [address] documented as of this encounter
--- OUTSIDE RECORDS SUMMARY | 2022-04-25 22:34 | XMS_ITS | Encounter Summary ---
:1985 Author Organization [facility] Address [address] [place] [address] Care Team Providers Name Role Phone Unavailable Primary Care Provider Unavailable Encounter Details Date Type Department Care Team Description 06/19/2018 Notes/Orders Wanda French, Maternal care for [address] [place] [address] 1514 [facility] malformation of uterus [phone] in first trimester RANGEL Lin (Primary Dx) [phone] Social History Tobacco Use Types Packs/Day Years Used Date Smoking Tobacco: Never Smokeless Tobacco: Never Alcohol Use Standard Drinks/Week Comments Yes 0 (1 standard drink = 0.6 oz pure alcoho l) 2/week Sex Assigned at Date Recorded Not on file documented as of this encounter Plan of Treatment Not on filedocumented as of this encounter Results Urine Culture (07/06/2018 1:00 PM TRACKWALKER) Analysis Performed At Patho logist Time Signature Source Urine PN SOFT Site clean catch PN SOFT Urine Cuture No Growth 07/07/2018 PN SOFT After 1 Day 6:18 PM TRACKWALKER Specimen (Source) Anatomical Collection Method Collection Time Re ceived Time Location / / Volume Laterality Urine:clean catch 07/06/2018 1:00 PM TRACKWALKER Narrative PN SOFT - 07/07/2018 6:18 PM TRACKWALKER Performed at [address] [address], CLIA Number [id number] Wanda Guallpa MD LAB_1 Performing Organization Address City/State/ZIP Code Phon e Number PN SOFT [address] [place] [address] documented in this encounter Visit Diagnoses Diagnosis 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
--- OUTSIDE RECORDS SUMMARY | 2022-04-25 22:34 | XMS_ITS | Encounter Summary ---
:1985 Author Organization [email or web address] Address [address] [place] [address] Care Team Providers Name Role Phone Needs Pcp, Assignment Primary Care Provider Reason for Visit Reason Comments Routine Visit Encounter Details Date Type Department Care Team Description 11/27/2018 Routine [place] 1515 Wanda Guallpa Routi ne Obstetrics/Gynecolog MD Visit y 1515 [facility] [address] [address] [place] [phone] Social History Tobacco Use Types Packs/Day Years Used Date Smoking Tobacco: Never Smokeless Tobacco: Never Alcohol Use Standard Drinks/Week Comments Not Currently 0 (1 standard drink = 0.6 oz pure alcoho l) 2/week Sex Assigned at Date Recorded Not on file documented as of this encounter Last Filed Vital Signs Vital Sign Reading Time Taken Comments Blood Pressure 110/70 11/27/2018 1:17 PM CDT Pulse - - Temperature - - Respiratory Rate - - Oxygen Saturation - - Inhaled Oxygen Concentration - - Weight 85.5 kg (188 lb 9.6 oz) 11/27/2018 1:17 PM CDT Height - - Body Mass Index 28.68 06/19/2018 3:35 PM DRY CLEANING CHECKER documented in this encounter Progress Notes Wanda Guallpa MD - 11/27/2018 1:15 PM CDT VISIT Patient reports fatigue, pressure. 28-week labs reviewed, normal plans reviewed: yes, poor latch and poor production Discussed upcoming schedule of appointments and exam. Tdap: today Follow-up in 2 weeks - had HTN last . Ultrasound today for growth: Estimated Weight: ??1647 grams Weight Percentile: 51.2% Baby is in transverse lie which explains small fundal height today. YENNY was normal. documented in this encounter Plan of Treatment Not on filedocumented as of this encounter Visit Diagnoses Diagnosis Bicornate uterus complicating , first trimester - Primary Need for Tdap vaccination Need for prophylactic vaccination with c ombined lkqbbllykf-[id number]-hfnmcwlfx (DTP) vaccine documented in this encounter Care Teams Clinical Education Academic Coordinator Relationship Specialty Start Date End Date Needs Pcp, Assignment PCP - General 09/07/18 10/12/19 [place] [address] documented as of this encounter
--- OUTSIDE RECORDS SUMMARY | 2022-04-25 22:34 | XMS_ITS | Encounter Summary ---
:1985 Author Organization [facility] Address [address] [place] [address] Care Team Providers Name Role Phone Needs Pcp, Assignment Primary Care Provider Reason for Visit Reason Comments Concerns Encounter Details Date Type Department Care Team Description 12/07/2018 Nurse Triage [place] 1515 Wanda Guallpa, Concerns Obstetrics/Gynecolog y 1515 [facility] . 1515 [facility] [place] [address] [facility] [address] [place] [phone] (Wo rk) Social History Tobacco Use Types Packs/Day Years Used Date Smoking Tobacco: Never Smokeless Tobacco: Never Alcohol Use Standard Drinks/Week Comments Not Currently 0 (1 standard drink = 0.6 oz pure alcoho l) 2/week Sex Assigned at Date Recorded Not on file documented as of this encounter Nursing Notes Darlene Casanova RN - 12/07/2018 4:22 PM CDT Reason for Disposition ? ? Mild contractions > 10 minutes apart Protocols used: - LABOR - [id number] Multip calling with contractions. 31 6/7 wks. Pt states Tuesday her contractions started and they were very intense for about an hour until she laid down. Contractions were 4-5 min apart. She did not call the nurse line since it did go away. Today she said she has had mild contractions that started around 8:30 am very irregular and she is having maybe 3-4 in the last hour now. States they are mild tomoderate at times.She is on her way home from work. Denies any leaking of fluids, vaginal bleeding or decreased movement. Delivered her last baby 11 days early. Instructed pt when she gets home to empty bladder, drink 2 glasses of water and lay on her side and monitor contractions. Pt to callback if ctxs 6 or more in an hour or if becoming more painful or any of the other sxs discussed above. Pt did have an appt scheduled for Tuesday, rescheduled appt for tomorrow. Pt agreed to plan documented in this encounter Plan of Treatment Not on filedocumented as of this encounter Visit Diagnoses Not on filedocumented in this encounter Care Teams Delivery Nurse Relationship Specialty Start Date End Date Needs Pcp, Assignment PCP - General 09/07/18 10/12/19 [place] [address] documented as of this encounter
--- OUTSIDE RECORDS SUMMARY | 2022-04-25 22:34 | XMS_ITS | Encounter Summary ---
:1985 Author Organization [facility] Address [address] [place] [address] Care Team Providers Name Role Phone Needs Pcp, Assignment Primary Care Provider Reason for Visit Reason Comments Routine Visit Encounter Details Date Type Department Care Team Description 07/06/2018 Routine [place] 1515 Wanda Guallpa Routi ne Obstetrics/Gynecolog MD Visit y 1515 [facility] [address] [place] [phone] Social History Tobacco Use Types Packs/Day Years Used Date Smoking Tobacco: Never Smokeless Tobacco: Never Alcohol Use Standard Drinks/Week Comments Not Currently 0 (1 standard drink = 0.6 oz pure alcoho l) 2/week Sex Assigned at Date Recorded Not on file documented as of this encounter Last Filed Vital Signs Vital Sign Reading Time Taken Comments Blood Pressure 120/80 07/06/2018 12:57 PM TIRE CHANGER AIRCRAFT Pulse - - Temperature - - Respiratory Rate - - Oxygen Saturation - - Inhaled Oxygen Concentration - - Weight 74 kg (163 lb 3.2 oz) 07/06/2018 12:57 PM TIRE CHANGER AIRCRAFT Height - - Body Mass Index 24.81 06/19/2018 3:35 PM TIRE CHANGER AIRCRAFT documented in this encounter Progress Notes Wanda Guallpa MD - 07/06/2018 1:00 PM CST visit. Patient reports UTI symptoms. Urine tests today consistent with UTI. Macrobid sent. Labs reviewed. Rh: Positive. cardiac activity seen on ultrasound. Follow-up in 6 weeks with me so she will be 16 weeks. In meantime will have her [facility] NT appointment. CHANGER AIRCRAFT documented in this encounter Plan of Treatment Not on filedocumented as of this encounter Visit Diagnoses Diagnosis Bicornate uterus complicating , first trimester - Primary documented in this encounter Care Teams Squash Centre Manager Relationship Specialty Start Date End Date Needs Pcp, Assignment PCP - General 09/07/18 10/12/19 [place] [address] documented as of this encounter
--- OUTSIDE RECORDS SUMMARY | 2022-04-25 22:34 | XMS_ITS | Encounter Summary ---
:1985 Author Organization [facility] Address [address] [place] [address] Care Team Providers Name Role Phone Unavailable Primary Care Provider Unavailable Reason for Visit Reason Comments Routine Visit Encounter Details Date Type Department Care Team Description 07/24/2018 Routine [place] 1515 Wanda Guallpa Routi ne Obstetrics/Gynecolog MD Visit y [address] [facility] [address] [place] [phone] Social History Tobacco Use Types Packs/Day Years Used Date Smoking Tobacco: Never Smokeless Tobacco: Never Alcohol Use Standard Drinks/Week Comments Not Currently 0 (1 standard drink = 0.6 oz pure alcoho l) 2/week Sex Assigned at Date Recorded Not on file documented as of this encounter Last Filed Vital Signs Vital Sign Reading Time Taken Comments Blood Pressure 110/84 07/24/2018 2:01 PM PERSONAL BANKER Pulse - - Temperature - - Respiratory Rate - - Oxygen Saturation - - Inhaled Oxygen Concentration - - Weight 76.1 kg (167 lb 12.8 oz) 07/24/2018 2:01 PM PERSONAL BANKER Height - - Body Mass Index 25.51 06/19/2018 3:35 PM PERSONAL BANKER documented in this encounter Progress Notes Wanda Guallpa MD - 07/24/2018 2:00 PM CST VISIT Patient reports swelling in hands - tingling, pain fingertips go numb. All fingers and both hands. Comes on over the course of the day. Will last for 30 minutes or so. Not there in the morning. Has taken her rings off. Fingers do not get cold. I doubt she has carpel tunnel or Raynaud's. Likely just due to fluid retention of . With eating gets uncomfortable in the mid-abdomen. Tooting and burping. No better with Tums. BM every 2-3 days and then needs to go now! Try metamucil or Miralax. No vaginal bleeding. Follow-up in 4 weeks ONAL BANKER documented in this encounter Plan of Treatment Not on filedocumented as of this encounter Visit Diagnoses Diagnosis Bicornate uterus complicating , first trimester - Primary documented in this encounter
--- OUTSIDE RECORDS SUMMARY | 2022-04-25 22:34 | XMS_ITS | Encounter Summary ---
:1985 Author Organization [facility] Address [address] [place] [address] Care Team Providers Name Role Phone Unavailable Primary Care Provider Unavailable Encounter Details Date Type Department Care Team Description 07/26/2018 Lab Visit [facility] Encounter for supervision of other normal in first trimester; [address] Encounter for scre ening of mother [place] [id number] Social History Tobacco Use Types Packs/Day Years Used Date Smoking Tobacco: Never Smokeless Tobacco: Never Alcohol Use Standard Drinks/Week Comments Not Currently 0 (1 standard drink = 0.6 oz pure alcoho l) 2/week Sex Assigned at Date Recorded Not on file documented as of this encounter Progress Notes Maryellen Jerez CGC - 07/26/2018 1:45 PM CST Normal range Maternal Screen result released to patient via My Chart. documented in this encounter Plan of Treatment Not on filedocumented as of this encounter Procedures Procedure Name Priority Date/Time Associated Diagnosis Comme nts MATERNAL Routine 07/26/2018 1:54 PM Encounter for Result s for this SCREEN MAINTENANCE SUPERVISOR MECHANICAL supervision of other procedu re are in normal in the resu lts first trimester section. Encounter for screening of mother documented in this encounter Results Maternal Screen (07/26/2018 1:54 PM MAINTENANCE SUPERVISOR MECHANICAL) P athologist Signature Free Beta hCG 22.35 [...] in 300 ??1 in 397 ?1 in >52235 WITHIN RANGE TRISOMY 18/13 1 in 150 ??1 in 723 ?1 in >13216 WITHIN RANGE SEE ORIGINAL FOR GRAPH Comments [...] developed and its performance characteristics determined by [facility]. It has not been cleared by the U.S. Food and Drug A dministration. ??The methods and performance characteristics have been reviewed and approved by the [facility]. The results do not eliminate the [...] review program such as NTQR or FMF. [employer] assumes no responsibility for ensuring that the ult rasound information has been obtained by a properly credenti aled veterinary parasitologist, including verification of updates to cre dentialing [...] specimen 07/26/2018 1:54 PM 019 6:58 (specimen) MAINTENANCE SUPERVISOR MECHANICAL PM MAINTENANCE SUPERVISOR MECHANICAL Narrative PN SOFT - 07/29/2018 5:16 PM MAINTENANCE SUPERVISOR MECHANICAL Performed at [employer] [address] [place] [address] CLIA number [id number] Maryellen Ramirez [facility] LAB_1 Performing Organization Address City/State/ZIP Code Phon e Number PN SOFT [address] [place] [address] documented in this encounter Visit Diagnoses Diagnosis Encounter for supervision of other jonathan og in first trimester Encounter for screening of mot her Unspecified screening documented in this encounter
--- OUTSIDE RECORDS SUMMARY | 2022-04-25 22:34 | XMS_ITS | Encounter Summary ---
:1985 Author Organization [facility] Address [address] [place] [address] Care Team Providers Name Role Phone Unavailable Primary Care Provider Unavailable Encounter Details Date Type Department Care Team Description 08/11/2018 Lab Visit [place] [facility] Bicornuate uterus affecting 1415 [facility] . , antepartum [place] [phone] Social History Tobacco Use Types Packs/Day Years [...] Priority Date/Time Associated Diagnosis Comme nts MATERNAL SCREEN AFP Routine 08/11/2018 9:16 AM Bicornuate uter us Results for this CDT affecting , procedu re are in antepartum the results section. MAFP QUESTIONS Routine 08/11/2018 9:16 AM Bicornuate uterus Re sults for this CDT affecting , procedu re are in antepartum the results section. documented in this encounter Results Maternal Screen AFP (08/11/2018 9:16 AM CDT) Analysis Performed At Patho logist Time Signature AFP, Maternal 22.9 ng/mL PN SOFT MoM For AFP 0.75 PN SOFT AFP, MoM see below PN SOFT Cutoff Int Comment: Maternal AFP MoM Reference Rang e = 0.20 - 2.50 Risk Assessment See Note PN SOFT Comment: Risk of OSB: The risk based on AFP and family history is 1:27807. (The population risk is less than 1:1000). MAFP Interpretation see below PN SOFT Comment: The maternal serum AFP result is NOT chapito vated for a of this gestational age. The risk of an open neural tube defect is less than the screening cut-of f. Interpretation See Note PN SOFT Comment: Screen NEGATIVE for Open Spina Bifida. Specimen Anatomical Collection Method Collection Time Receive d Time (Source) Location / / Volume Laterality 08/11/2018 9:16 AM 9 3:51 CDT PM CDT Narrative PN SOFT - 08/14/2018 11:54 AM CDT Performed at [address] [address] CLIA number [id number] Wanda Guallpa MD LAB_1 Performing Organization Address [facility] Phon e Number PN SOFT [address] [place] [address] MAFP Questions (08/11/2018 9:16 AM CDT) [facility] Method Time Signature Maternal Weight 168 lbs PN SOFT Type Of Single PN SOFT Race Non-Black PN SOFT Insulin No PN SOFT Dependent Diabetic? Family History No PN SOFT Of Neural Tube Disorders Smoker? No PN SOFT Gestational Age 15w0d PN SOFT Comment: By U/S (12 weeks 5 days on 2018) Ultrasound Date 20,190,306 PN SOFT ULTRASOUND WEEKS GEST 12 Weeks PN SOFT ULTRASOUND DAYS 5 Days PN SOFT Last Menstrual Period Date 20,181,207 PN SOFT EST DATE OF DELIVERY 20,190,913 PN SOFT Specimen Anatomical Collection Method Collection Time Receive d Time (Source) Location / / Volume Laterality 08/11/2018 9:16 AM 9 3:51 CDT PM CDT Narrative PN SOFT - 08/14/2018 11:54 AM CDT Performed at [address] [address] CLIA number [id number] Wanda Guallpa MD LAB_1 Performing Organization Address [facility] Phon e Number PN SOFT [address] [place] [address] documented in this encounter Visit Diagnoses Diagnosis Bicornuate uterus affecting , a ntepartum Congenital abnormalities of verenice mary, antepartum documented in this encounter
--- OUTSIDE RECORDS SUMMARY | 2022-04-25 22:34 | XMS_ITS | Encounter Summary ---
:1985 Author Organization [facility] Address [address] [address] Care Team Providers Name Role Phone Needs Pcp, Assignment Primary Care Provider Reason for Visit Reason Comments Concerns Encounter Details Date Type Department Care Team Description 10/19/2018 Nurse Triage [place] 1515 Wanda Guallpa, Concerns Obstetrics/Gynecolog y 1515 [facility] . 1515 [place] [address] [facility] [address] [place] [phone] (Wo rk) Social History Tobacco Use Types Packs/Day Years Used Date Smoking Tobacco: Never Smokeless Tobacco: Never Alcohol Use Standard Drinks/Week Comments Not Currently 0 (1 standard drink = 0.6 oz pure alcoho l) 2/week Sex Assigned at Date Recorded Not on file documented as of this encounter Nursing Notes Lavonne Kwan RN - 10/19/2018 11:20 AM CDT Called patient with message from provider, see note. Patient verbalizes understanding and has no further questions or concerns. Wanda Guallpa MD - 10/19/2018 10:16 AM CDT OK to wait for labs. Lavonne Kwan RN - 10/19/2018 9:06 AM CDT Reason for Call: Clinician input needed on symptom based concern. Next Steps: Document further recommendations and route to appropriate person or pool. Caller IS expecting a call back from Care Team. Additional Information: Reason for Disposition ??? Patient requests blood test for anemia Protocols used: - PALE [id number] 24w6d c/o occasional lightheadedness & dizziness, fatigue and SOB with exertion. Gradual onset but getting worse. Per pt long-standing hx of anemia; hx of needing iron infusions with last . Denies falling or being unable to walk. +FM. Labs for hgb and ferritin already ordered on 10/02. Patient transferred to lab to schedule appointment for today. Please advise if you want her to also be seen today or wait for lab results. documented in this encounter Plan of Treatment Not on filedocumented as of this encounter Visit Diagnoses Not on filedocumented in this encounter Care Teams Molding Room Supervisor Relationship Specialty Start Date End Date Needs Pcp, Assignment PCP - General 09/07/18 10/12/19 [place] [address] documented as of this encounter
--- OUTSIDE RECORDS SUMMARY | 2022-04-25 22:34 | XMS_ITS | Encounter Summary ---
:1985 Author Organization [employer] Address [address] [place] [address] Care Team Providers Name Role Phone Needs Pcp, Assignment Primary Care Provider Reason for Visit Reason Comments Routine Visit Encounter Details Date Type Department Care Team Description 12/08/2018 Routine [place] 1515 Maria Esther Stone Routine Obstetrics/Gynecolog MD [place] Visit y 1515 [facility] [address] [place] [address] [place] [address] [phone] Social History Tobacco Use Types Packs/Day Years Used Date Smoking Tobacco: Never Smokeless Tobacco: Never Alcohol Use Standard Drinks/Week Comments Not Currently 0 (1 standard drink = 0.6 oz pure alcoho l) 2/week Sex Assigned at Date Recorded Not on file documented as of this encounter Last Filed Vital Signs Vital Sign Reading Time Taken Comments Blood Pressure 114/70 12/08/2018 9:45 AM CDT Pulse - - Temperature - - Respiratory Rate - - Oxygen Saturation - - Inhaled Oxygen Concentration - - Weight 85.6 kg (188 lb 11.2 oz) 12/08/2018 9:45 AM CDT Height - - Body Mass Index 28.69 06/19/2018 3:35 PM GENERAL SCIENCE TEACHER documented in this encounter Patient Instructions Patient InstructionsDanitza Coleman RN - 12/08/2018 9:50 AM CDT Thank you for choosing [facility] for your care. We recommend you review the following information in the book Your Guide to : ?? Testing- Group B Strep Testing ?? Read, Talk, Sing book and brochure ?? Center brochure ?? [facility] Have you selected a health care provider for your baby? Our Clinician Finder Team is available to assist you by calling [phone]. documented in this encounter Progress Notes Maria Esther Stone MD - 12/08/2018 9:50 AM CDT ctxs this week; questions answered; RT 2 weeks documented in this encounter Plan of Treatment Not on filedocumented as of this encounter Visit Diagnoses Diagnosis Bicornate uterus complicating , first trimester documented in this encounter Care Teams Horse Buyer Relationship Specialty Start Date End Date Needs Pcp, Assignment PCP - General 09/07/18 10/12/19 [place] [address] documented as of this encounter
--- OUTSIDE RECORDS SUMMARY | 2022-04-25 22:34 | XMS_ITS | Encounter Summary ---
:1985 Author Organization [facility] Address [address] [place] [address] Care Team Providers Name Role Phone Unavailable Primary Care Provider Unavailable Encounter Details Date Type Department Care Team Description 07/06/2018 Lab Visit [facility] Maternal care for congenital [address] [place] [address] [place] [address] first trimester [phone] Social History Tobacco Use Types Packs/Day Years [...] Priority Date/Time Associated Diagnosis Comme nts URINE MICROSCOPIC Routine 07/06/2018 1:00 PM Resu lts for this GREASE PACKER procedure are i n the results section. DRUGS OF ABUSE Routine 07/06/2018 1:00 PM Maternal care for Re sults for this SCREEN, URINE, W/ GREASE PACKER congenital procedure are in CONF malformation of the results uterus in first section. trimester URINALYSIS Routine 07/06/2018 1:00 PM Maternal care for Resu lts for this ROUTINE(MICRO IF GREASE PACKER congenital procedure a re in POS) malformation of the results uterus in first section. trimester URINE CULTURE Routine 07/06/2018 1:00 PM Maternal care for Res ults for this GREASE PACKER congenital procedure are i n malformation of the results uterus in first section. trimester documented in this encounter Results (ABNORMAL) Urine Microscopic (07/06/2018 1:00 PM GREASE PACKER) Patholo gist Method Time Signature Urine WBC 25-49 (A) 0 - 4 PN SOFT /HPF Urine RBC 0-2 0 - 2 PN SOFT /HPF Bacteria Urine Moderate (A) /HPF PN SOFT Specimen Anatomical Collection Method Collection Time Receive d Time (Source) Location / / Volume Laterality 07/06/2018 1:00 PM 9 GREASE PACKER 12:59 PM GREASE PACKER Narrative PN SOFT - 07/06/2018 1:17 PM GREASE PACKER Performed at [place] [id number] CLIA number [id number] Wanda Guallpa MD LAB_1 Performing Organization Address City/[facility] Phon e Number PN SOFT [address] [place] [address] Drugs of Abuse Screen, Urine, w/ conf (07/06/2018 1:00 PM GREASE PACKER) [facility] Method Time Signature Creatinine,Urine,T 76.7 mg/dL PN SOFT ox Alcohol Urine Negative Negative PN SOFT Amphetamine Urine Negative Negative PN SOFT Barbituate Urine Negative Negative PN SOFT Benzodiazepine Negative Negative PN SOFT Urine Cocaine Urine Negative Negative PN SOFT Methadone Urine Negative Negative PN SOFT Opiate Urine Negative Negative PN SOFT Oxycodone Urine Negative Negative PN SOFT Phencyclidine Negative Negative PN SOFT Urine THC Urine Negative Negative PN SOFT Comment: The absence of expected drug(s) and/or d rug metabolite(s) may indicate non-compliance, inappropiate ti coreen of specimen collection relative to drug administrati on, poor drug absorption, diluted/adulterated urine, or limitation s of testing. The concentration must be greater than or eq ual to the cutoff concentration to be reported as positive . For medical purposes only; not valid for forensic, legal or e mployment use. Specimen Anatomical Collection Method Collection Time Receive d Time (Source) Location / / Volume Laterality 07/06/2018 1:00 PM 9 6:53 GREASE PACKER PM GREASE PACKER Narrative PN SOFT - 07/06/2018 7:57 PM GREASE PACKER Performed at [facility], [address] [place] [address] CLIA number [id number] Wanda Guallpa MD LAB_1 Performing Organization Address [facility]/ZIP Code Phon e Number PN SOFT [address] [place] [address] (ABNORMAL) Urinalysis Routine(Micro If Pos) (07/06/2018 1:00 PM GREASE PACKER) Patholo gist Method Time Signature Urine Type URINE:clean PN SOFT cat Turbidity Clear Clear PN SOFT U BILI Negative Negative PN SOFT Blood Urine Negative Neg - Trace PN SOFT Glucose, Negative Neg-30 PN SOFT Qualitative U mg/dL Ketones Negative Negative PN SOFT Leukocyte Large (A) Negative PN SOFT Esterase Urine Nitrite Urine Negative Negative PN SOFT pH Urine 6.5 5.0 - 8.0 PN SOFT Protein Urine Negative Neg - Trace PN SOFT mg/dL U Specific 1.010 1.005 - PN SOFT [place] 1.030 Urobilinogen Negative Negative PN SOFT Urine Eu/dL Specimen Anatomical Collection Method Collection Time Receive d Time (Source) Location / / Volume Laterality Urine 07/06/2018 1:00 PM 9 GREASE PACKER 12:59 PM GREASE PACKER Narrative PN SOFT - 07/06/2018 1:17 PM GREASE PACKER Performed at [address] [address] CLIA number [id number] Wanda Guallpa MD LAB_1 Performing Organization Address City/[facility] Phon e Number PN SOFT [address] [place] [address] Urine Culture (07/06/2018 1:00 PM GREASE PACKER) Analysis Performed At Path logist Time Signature Source Urine PN SOFT Site clean catch PN SOFT Urine Cuture No Growth 07/07/2018 PN SOFT After 1 Day 6:18 PM GREASE PACKER Specimen (Source) Anatomical Collection Method Collection Time Re ceived Time Location / / Volume Laterality Urine:clean catch 07/06/2018 1:00 PM GREASE PACKER Narrative PN SOFT - 07/07/2018 6:18 PM GREASE PACKER Performed at [address] [address], CLIA Number [id number] Wanda Guallpa MD LAB_1 Performing Organization Address City/[facility]/ZIP Code Phon e Number PN SOFT [address] [place] [address] documented in this encounter Visit Diagnoses Diagnosis Maternal care for congenital 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
--- OUTSIDE RECORDS SUMMARY | 2022-04-25 22:34 | XMS_ITS | Encounter Summary ---
:1985 Author Organization [facility] Address [address] [place] [address] Care Team Providers Name Role Phone Unavailable Primary Care Provider Unavailable Encounter Details Date Type Department Care Team Description 06/19/2018 Notes/Orders [facility] Wanda Guallpa, Maternal care for [address] [place] [address] [address] [facility] malformation of uterus [phone] in first trimester [place]ANGEL [...] on filedocumented as of this encounter Results Drugs of Abuse Screen, Urine, w/ conf (07/06/2018 1:00 PM MAGNET MAKER) [facility] Method Time Signature Creatinine,Urine,T 76.7 mg/dL PN [...] Volume Laterality 07/06/2018 1:00 PM 9 6:53 MAGNET MAKER PM MAGNET MAKER Narrative PN SOFT - 07/06/2018 7:57 PM MAGNET MAKER Performed at [facility], [address] [place] [address] CLIA number [id number] Wanda Guallpa MD LAB_1 Performing Organization Address [facility] Phon e Number PN SOFT [address] [place] [address] (ABNORMAL) Urinalysis Routine(Micro If Pos) (07/06/2018 1:00 PM MAGNET MAKER) [facility] Method Time Signature Urine Type URINE:clean PN [...] U Specific 1.010 1.005 - PN SOFT [place] 1.030 Urobilinogen Negative Negative PN SOFT Urine Eu/dL Specimen Anatomical Collection Method Collection Time Receive d Time (Source) Location / / Volume Laterality Urine 07/06/2018 1:00 PM 9 MAGNET MAKER 12:59 PM MAGNET MAKER Narrative PN SOFT - 07/06/2018 1:17 PM MAGNET MAKER Performed at [address] [address] CLIA number [id number] Wanda Guallpa MD LAB_1 Performing Organization Address City/[facility] Phon e Number PN SOFT [address] [place] [address] documented in this encounter Visit Diagnoses Diagnosis 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
--- OUTSIDE RECORDS SUMMARY | 2022-04-25 22:34 | XMS_ITS | Encounter Summary ---
:1985 Author Organization [facility] Address [address] [place] [address] Care Team Providers Name Role Phone Unavailable Primary Care Provider Unavailable Reason for Referral Procedure/Equipment (Routine) - Incomplete Specialty Diagnoses / Procedures Referred By Contact Refer red To Contact Diagnoses Bicornuate uterus affecting , antepartum Wanda Guallpa MD Procedures US OB 20 Weeks [facility] [address] [facility] [address] [address] [place] [phone] Referral ID Status Reason Start Date Expiration Date Visits V isits Requested Authorized [id number] Incomplete 08/11/2018 11/10/2019 1 1 Reason for Visit Reason Comments Routine Visit Encounter Details Date Type Department Care Team Description 08/11/2018 Routine [place] [address]15 Wanda Guallpa Routi ne Obstetrics/Gynecolog Visit y [address] [place] [address] [address] [place] [phone] Social History Tobacco Use Types Packs/Day Years Used Date Smoking Tobacco: Never Smokeless Tobacco: Never Alcohol Use Standard Drinks/Week Comments Not Currently 0 (1 standard drink = 0.6 oz pure alcoho l) 2/week Sex Assigned at Date Recorded Not on file documented as of this encounter Last Filed Vital Signs Vital Sign Reading Time Taken Comments Blood Pressure 120/84 08/11/2018 8:46 AM CDT Pulse - - Temperature - - Respiratory Rate - - Oxygen Saturation - - Inhaled Oxygen Concentration - - Weight 76.2 kg (168 lb) 08/11/2018 8:46 AM CDT Height - - Body Mass Index 25.54 06/19/2018 3:35 PM IMAGING ENGINEER documented in this encounter Progress Notes Wanda Guallpa MD - 08/11/2018 8:45 AM CDT visit Patient reports still some bloating and hand swelling. No new issues. NT was normal. MSAFP today. Role of ultrasound in discussed including anatomy survey. Ordered. Follow-up in 4 weeks documented in this encounter Plan of Treatment Not on filedocumented as of this encounter Results US OB 20 Weeks [...] and unremarkable morphologic survey. Wanda Guallpa MD [facility] Maternal Screen AFP (08/11/2018 9:16 AM CDT) [...] based on AFP and family history is 1:07076. (The population risk is less than 1:1000). [...] - 08/14/2018 11:54 AM CDT Performed at [address] [address] CLIA number [id number] Wanda Guallpa MD LAB_1 Performing Organization Address City/State/ZIP Code Phon e Number PN SOFT [address] [place] [address] [phone] [facility] Questions (08/11/2018 9:16 AM CDT) [facility] Method Time Signature Maternal Weight 168 lbs [...] - 08/14/2018 11:54 AM CDT Performed at [address] [address] CLIA number [id number] Wanda Guallpa MD LAB_1 Performing Organization Address City/State/ZIP Code Phon e Number PN SOFT [address] [place] [address] documented in this encounter Visit Diagnoses Diagnosis Bicornuate uterus affecting , a ntepartum - Primary Congenital abnormalities of [place] mary, antepartum Bicornuate uterus affecting , a ntepartum Congenital abnormalities of [place] mary, antepartum Bicornuate uterus affecting , a ntepartum Congenital abnormalities of [place] mary, antepartum documented in this encounter
--- OUTSIDE RECORDS SUMMARY | 2022-04-25 22:34 | XMS_ITS | Encounter Summary ---
:1985 Author Organization [facility] Address [address] [place] [address] Care Team Providers Name Role Phone Needs Pcp, Assignment Primary Care Provider Reason for Visit Reason Comments Concerns left calf pain Encounter Details Date Type Department Care Team Description 10/02/2018 Nurse Triage [place] [address] Wanda Guallpa, Concerns Obstetrics/Gynecolog y MD (left calf pain) [address] [facility] . [address] [place] [address] [facility] [address] [place] [address] Social History Tobacco Use Types Packs/Day Years Used Date Smoking Tobacco: Never Smokeless Tobacco: Never Alcohol Use Standard Drinks/Week Comments Not Currently 0 (1 standard drink = 0.6 oz pure alcoho l) 2/week Sex Assigned at Date Recorded Not on file documented as of this encounter Nursing Notes Lavonne Kwan RN - 10/02/2018 1:10 PM CDT Reason for Disposition ? ? [1] Thigh or calf pain AND [2] only 1 side AND [3] present > 1 hour Protocols used: - LEG [id number] 22w3d c/o dull ache in left calf and numbness in left foot. Pain initially started Tuesday night/Tuesday morning in left hamstring and then shifted to calf. No recent exercise, exertion or injury. Rested and tried to keep leg elevated Tuesday but discomfort persists. Denies area of redness or lump in calf. Warning signs on when to contact EMS given. Problem list reviewed as related to this call. Future Appointments Provider Department Center 10/02/2018 3:00 PM Stephanie Grider MD [place] 15[address] Obstetrics/Gynecology PN [place] documented in this encounter Plan of Treatment Not on filedocumented as of this encounter Visit Diagnoses Not on filedocumented in this encounter Care Teams Before School Relationship Specialty Start Date End Date Needs Pcp, Assignment PCP - General 09/07/18 10/12/19 [place] [address] documented as of this encounter
--- OUTSIDE RECORDS SUMMARY | 2022-04-25 22:34 | XMS_ITS | Encounter Summary ---
:1985 Author Organization [facility] Address [address] [place] [address] Care Team Providers Name Role Phone Unavailable Primary Care Provider Unavailable Encounter Details Date Type Department Care Team Description 06/19/2018 Lab Visit [facility] Screening for diabetes melli tus; [address] [facility] [place] [facility] . Encounter for blood typing; [place] [address] screening for isoi mmunization; [phone] Screening for b lood disease; Screening exami nation for venereal disease; Screening exami nation for rubella; Bicornate uteru s complicating , first trimester; Encounter for d rug screening Social History Tobacco Use Types Packs/Day Years [...] Name Priority Date/Time Associated Diagnosis Comme nts RUBELLA IMMUNE Routine 06/19/2018 4:20 Screening examination R esults for this STATUS, IGG PM MASK DESIGNER for rubella procedure are i n the results section. HIV-1 P24 AND Routine 06/19/2018 4:20 Screening examination Re sults for this HIV-1/HIV-2 PM MASK DESIGNER for venereal disease procedu re are in ANTIBODIES the results section. BLOOD GROUP & RH Routine 06/19/2018 4:20 Encounter for blood R esults for this (BT) PM MASK DESIGNER typing procedure are i n the results section. ANTIBODY SCREEN Routine 06/19/2018 4:20 screening fo r Results for this PM MASK DESIGNER isoimmunization procedure ar e in the results section. TREPONEMA SCREEN Routine 06/19/2018 4:20 Screening examination Results for this PM MASK DESIGNER for venereal disease procedu re are in the results section. HEP B SURFACE Routine 06/19/2018 4:20 Screening examination Re sults for this ANTIGEN, NO REFLEX PM MASK DESIGNER for venereal disease p rocedure are in the results section. COMPLETE BLOOD Routine 06/19/2018 4:20 Screening for blood Res ults for this COUNT-W/DIFF PM MASK DESIGNER disease procedure are i n the results section. DIFFERENTIAL Routine 06/19/2018 4:20 Results for this PM MASK DESIGNER procedure are i n the results section. HGB A1C Routine 06/19/2018 4:20 Screening for diabetes Re sults for this PM MASK DESIGNER mellitus procedure are i n the results section. documented in this encounter Results (ABNORMAL) Differential (06/19/2018 4:20 PM MASK DESIGNER) Analysis Performed At Patho logist Time Signature Absolute 6.1 1.8 - 8.0 PN SOFT Neutrophils k/cmm Absolute 2.3 1.1 - 4.0 PN SOFT Lymphocytes k/cmm Absolute 1.0 (H) 0.2 - 0.8 PN SOFT Monocytes k/cmm Absolute 0.1 0.0 - 0.5 PN SOFT Eosinophils k/cmm Absolute 0.0 0.0 - 0.2 PN SOFT Basophils k/cmm Specimen Anatomical Collection Method Collection Time Receive d Time (Source) Location / / Volume Laterality 06/19/2018 4:20 PM 9 4:19 MASK DESIGNER PM MASK DESIGNER Narrative PN SOFT - 06/19/2018 4:25 PM MASK DESIGNER Performed at [facility], [address] [place] [address] CLIA number [id number] Wanda Guallpa MD LAB_1 Performing Organization Address City/State/ZIP Code Phon e Number PN SOFT [address] [place] [address] [phone] Rubella Immune Status, IgG (06/19/2018 4:20 PM MASK DESIGNER) Patholo gist Method Time Signature Rubella Immune Immune PN SOFT Intepretation Rubella Units 2.82 >0.99 IV PN SOFT Comment: The magnitude of the measured result, ab ove the cutoff, is not indicative of the amount of antibody present. Specimen Anatomical Collection Method Collection Time Receive d Time (Source) Location / / Volume Laterality 06/19/2018 4:20 PM 9 9:34 MASK DESIGNER PM MASK DESIGNER Narrative PN SOFT - 06/20/2018 11:39 AM MASK DESIGNER Performed at [address] [address] CLIA number [id number] Wanda Guallpa MD LAB_1 Performing Organization Address [facility] Phon e Number PN SOFT [address] [place] [address] Treponema Screen (06/19/2018 4:20 PM MASK DESIGNER) [facility] Method Time Signature Treponema Non Reactive Non Reactive PN SOFT Screen Specimen Anatomical Collection Method Collection Time Receive d Time (Source) Location / / Volume Laterality 06/19/2018 4:20 PM 9 9:34 MASK DESIGNER PM MASK DESIGNER Narrative PN SOFT - 06/19/2018 10:10 PM MASK DESIGNER Performed at [address] [address] CLIA number [id number] Wanda Guallpa MD LAB_1 Performing Organization Address [facility] Phon e Number PN SOFT [address] [place] [address] LAB HIV-1 p24 AND HIV-1/HIV-2 ANTIBODIES (06/19/2018 4:20 PM MASK DESIGNER) [facility] Method Time Signature HIV-1 p24 Ag Nonreactive Nonreactive PN SOFT and HIV-1/HIV-2 Ab Specimen Anatomical Collection Method Collection Time Receive d Time (Source) Location / / Volume Laterality 06/19/2018 4:20 PM 9 9:34 MASK DESIGNER PM MASK DESIGNER Narrative PN SOFT - 06/19/2018 10:11 PM MASK DESIGNER Performed at [address] [address] CLIA number [id number] Wanda Guallpa MD LAB_1 Performing Organization Address [facility]/ZIP Code Phon e Number PN SOFT [address] [place] [address] HEP B SURFACE ANTIGEN, NO REFLEX (06/19/2018 4:20 PM MASK DESIGNER) Patholo gist Method Time Signature Hep B Surf Ag Nonreactive Nonreactive PN SOFT Specimen Anatomical Collection Method Collection Time Receive d Time (Source) Location / / Volume Laterality 06/19/2018 4:20 PM 9 9:34 MASK DESIGNER PM MASK DESIGNER Narrative PN SOFT - 06/19/2018 10:10 PM MASK DESIGNER Performed at [place] [address] [place] [address] CLIA number [id number] Wanda Guallpa MD LAB_1 Performing Organization Address [facility] Phon e Number PN SOFT [address] [place] [address] HEMOGRAM/PLTS/DIFF (06/19/2018 4:20 PM MASK DESIGNER) P athologist Signature White Blood Cell 9.6 [...] Volume Laterality 06/19/2018 4:20 PM 9 4:19 MASK DESIGNER PM MASK DESIGNER Narrative PN SOFT - 06/19/2018 4:25 PM MASK DESIGNER Performed at [facility], [address] [place] [address] CLIA number [id number] Wanda Guallpa MD LAB_1 Performing Organization Address City/[facility]/ZIP [facility] Phon e Number PN SOFT [address] [place] [address] Antibody Screen (06/19/2018 4:20 PM MASK DESIGNER) athologist Signature Antibody Screen NEG PN SOFT Specimen Anatomical Collection Method Collection Time Receive d Time (Source) Location / / Volume Laterality 06/19/2018 4:20 PM 9 9:38 MASK DESIGNER PM MASK DESIGNER Narrative PN SOFT - 06/19/2018 11:03 PM MASK DESIGNER Performed at [address] [address] CLIA number [id number] Wanda Guallpa MD PN BLOOD BANK ORDERS Performing Organization Address [facility] Phon e Number PN SOFT [address] [place] [address] Blood Group & RH (Blood Type) (06/19/2018 4:20 PM MASK DESIGNER) athologist Signature Blood Type O POS PN SOFT Specimen Anatomical Collection Method Collection Time Receive d Time (Source) Location / / Volume Laterality 06/19/2018 4:20 PM 9 9:38 MASK DESIGNER PM MASK DESIGNER Narrative PN SOFT - 06/19/2018 11:03 PM MASK DESIGNER Performed at [facility], [address] [place] [address] CLIA number [id number] Wanda Guallpa MD PN BLOOD BANK ORDERS Performing Organization Address [facility] Phon e Number PN SOFT [address] [place] [address] HGB A1C (06/19/2018 4:20 PM MASK DESIGNER) athologist Signature HGB A1C 5.0 4.0 - 5.6 % PN SOFT Specimen Anatomical Collection Method Collection Time Receive d Time (Source) Location / / Volume Laterality 06/19/2018 4:20 PM 9 9:36 MASK DESIGNER PM MASK DESIGNER Narrative PN SOFT - 06/20/2018 12:32 PM MASK DESIGNER Performed at [facility], [address] [place] [address] CLIA number [id number] Wanda Guallpa MD LAB_1 Performing Organization Address [facility] Phon e Number PN SOFT [address] [place] [address] documented in this encounter Visit Diagnoses Diagnosis Screening for diabetes mellitus Encounter for blood typing screening for isoimmunization Screening for blood disease Screening for unspecified disorder of bl ood and blood-forming organs Screening examination for venereal disea se Screening examination for rubella Bicornate uterus complicating , first trimester Encounter for drug screening documented in this encounter
--- OUTSIDE RECORDS SUMMARY | 2022-04-25 22:34 | XMS_ITS | Encounter Summary ---
:1985 Author Organization [facility] Address [address] [place] [address] Care Team Providers Name Role Phone Needs Pcp, Assignment Primary Care Provider Reason for Visit Reason Comments Routine Visit Encounter Details Date Type Department Care Team Description 10/02/2018 Routine [place] 1515 Stephanie Grider Routin e Obstetrics/Gynecolog MD Visit y 1515 [facility] [address] [place] [address] [place] [phone] Social History Tobacco Use Types Packs/Day Years Used Date Smoking Tobacco: Never Smokeless Tobacco: Never Alcohol Use Standard Drinks/Week Comments Not Currently 0 (1 standard drink = 0.6 oz pure alcoho l) 2/week Sex Assigned at Date Recorded Not on file documented as of this encounter Last Filed Vital Signs Vital Sign Reading Time Taken Comments Blood Pressure 118/80 10/02/2018 3:10 PM CDT Pulse - - Temperature - - Respiratory Rate - - Oxygen Saturation - - Inhaled Oxygen Concentration - - Weight 81.2 kg (179 lb 1.6 oz) 10/02/2018 3:10 PM CDT Height - - Body Mass Index 27.23 06/19/2018 3:35 PM HANDLE ATTACHER documented in this encounter Patient Instructions Patient InstructionsStephanie Grider MD - 10/02/2018 3:00 PM CDT Images from the original note were not included. Weeks 22 to 26 of Your : Care Instructions Your Care Instructions As you enter your 7th month of at week 26, your baby's lungs are growing stronger and getting ready to breathe. You may notice that your baby responds to the sound of your or your partner's voice. You may also notice that your baby does less turning and twisting and more squirming or jerking. Jerking often means that your baby has the hiccups. Hiccups are perfectly normal and are only temporary. You may want to think about attending a childbirth preparation class. This is also a good time to start thinking about whether you want to have pain medicine during labor. Most women are tested for gestational diabetes between weeks 24 and 28. Gestational diabetes occurs when your blood sugar level gets too high when you're . The test is important, because you can have gestational diabetes and not know it. But the condition can cause problems for your baby. Follow-up care is a chamorro part of your treatment and safety. Be sure to make and go to all appointments, and call your doctor if you are having problems. It's also a good idea to know your test results and keep a list of the medicines you take. How can you care for yourself at home? Ease discomfort from your baby's kicking ?? Change your position. Sometimes this will cause your baby to change position too. ?? Take a deep breath while you raise your arm over your head. Then breathe out while you drop your arm. Do Kegel exercises to prevent urine from leaking ?? You can do Kegel exercises while you stand or sit. ? Squeeze the same muscles you would use to stop your urine. Your belly and thighs should not move. ? Hold the squeeze for 3 seconds, and then relax for 3 seconds. ? Start with 3 seconds. Then add 1 second each week until you are able to squeeze for 10 seconds. ? Repeat the exercise 10 to 15 times for each session. Do three or more sessions each day. Ease or reduce swelling in your feet, ankles, hands, and fingers ?? If your fingers are puffy, take off your rings. ?? Do not eat high-salt foods, such as potato chips. ?? Prop up your feet on a stool or couch as much as possible. Sleep with pillows under your feet. ?? Do not stand for long periods of time or wear tight shoes. ?? Wear support stockings. Where can you learn more? 1. Go to Aruspex/LibriLoop or Imagga/Acision. 2. Enter G264 in the search box. Current as of: January 25, 2018 Content Version: 11.9 ?? [id number] RightScale. documented in this encounter Progress Notes Stephanie Grider MD - 10/02/2018 3:00 PM CDT Called to be seen due to left leg pain and now foot numbness. She states she developed some left thigh pain on 07/30/2018. The pain actually got worse on Tuesday but she rested and it got a little better on Tuesday. Right foot numbness is also present. No swelling of the foot or ankle. No mass/fullness noted behind knee. Good movement. Some contractions after meals. No bleeding. No LOF. 1 hr GTT and Hgb next visit. Ferritin next visit. Doppler Ultrasound of left leg ordered. 20 week ultrasound reviewed and normal. Baby Girl. RTC 4 weeks. 09/07/2018 ??3:37 PM - Otilio, Rad Results In Narrative Performed by: [facility] COMPARISON: ??None. ?? TECHNIQUE: A level 1 ultrasound was performed. Transabdominal imaging was performed. FINDINGS: ??Type of Gestation: ??Holliday. Presentation: CEPHALIC Movement Present: ??Yes ?? Cardiac Rate: 155 bpm and is regular Amniotic Fluid Volume: ??Normal Placental Position: ??POSTERIOR. Normal. Cervical Length (cm): ??3.9 ??Within normal ANATOMIC SURVEY RESULTS: The anatomic survey includes assessment of: Cranium, Lateral Ventricles, Cerebellum, Cisterna Magna,Nuchal Fold, Face: Orbits, Upper Lip, Profile, Spine: Long C,T,L,S, Transverse Sacrum, Heart: 4 Chamber View, M-Mode, Right ventricular outflow tract, Left ventricular outflow tract, Abdomen: Cord Inser tion, 3-Vessel Cord, Bladder, Stomach, Diaphragm, Kidneys, Extremities: presence of arms and legs. Measurements (Source Hadlock): BPD: ??4.4 cm = 19w2d HC: 16.3 cm = 19w0d AC: ??13.5 cm = 18w6d FL: ??2.9 cm = 19w0d Anatomic Ratios: ??Within normal limits. GA by LMP: ??18w6d GA by Prior US: ??19w0d GA by today's US: ??19w0d CHERI by today's US: ?? Impression Performed by: [facility] IMPRESSION: Single living fetus, EGA 19 weeks 0 days, and unremarkable morphologic survey. documented in this encounter Plan of Treatment Not on filedocumented as of this encounter Results (ABNORMAL) Hemoglobin Ob (10/19/2018 11:53 AM CDT) athologist Signature Hemoglobin 11.0 (L) 12.0 - 10/19/2018 [facility] 15.5 g/dL 12:00 PM CDT LABORATORY Specimen Anatomical Collection Method / Collection Time Recei doc Time (Source) Location / Volume Laterality Blood Venipuncture / 10/19/2018 11:53 9 Unknown AM CDT 11:53 AM CDT Stephanie Grider MD LAB_1 Performing Organization Address City/State/ZIP Code Phon e Number [facility] [address] [place] [phone] (ABNORMAL) Ferritin [ISAK] (10/19/2018 11:53 AM CDT) P athologist Signature Ferritin 4 (L) 9 - 204 10/19/2018 [facility] ng/mL 4:09 PM CDT LABORATORY Specimen Anatomical Collection Method / Collection Time Recei doc Time (Source) Location / Volume Laterality Blood Venipuncture / 10/19/2018 11:53 9 Unknown AM CDT 11:53 AM CDT Stephanie Grider MD LAB_1 Performing Organization Address City/[facility]/ZIP Code Phon e Number [facility] [address] [place] [address] documented in this encounter Visit Diagnoses Diagnosis Left leg pain - Primary Pain in limb Bicornate uterus complicating , first trimester 22 weeks gestation of state, incidental Iron deficiency anemia, unspecified iron deficiency anemia type Screening for iron deficiency anemia Screening for diabetes mellitus documented in this encounter Care Teams Loan Interviewer Relationship Specialty Start Date End Date Needs Pcp, Assignment PCP - General 09/07/18 10/12/19 [place] [address] documented as of this encounter
--- OUTSIDE RECORDS SUMMARY | 2022-04-25 22:34 | XMS_ITS | Encounter Summary ---
:1985 Author Organization [facility] Address [address] [place] [address] Care Team Providers Name Role Phone Rosemarie Fuentes APRN, COMMERCIAL LOAN UNDERWRITER Primary Care Provider Reason for Visit Reason Comments Procedure nexplanon removal Encounter Details Date Type Department Care Team Description 02/28/2017 Initial Consult Patrica Chery of previously prescribed implantable subdermal contraceptive (Primary Dx); Obstetrics/Gynecolog MD Wanda Encounter for initial prescription of va ginal ring hormonal contraceptive y 1515 [facility] [address] [place] [address] [place] [phone] Social History Tobacco Use Types Packs/Day Years Used Date Smoking Tobacco: Never Smokeless Tobacco: Never Alcohol Use Standard Drinks/Week Comments No 0 (1 standard drink = 0.6 oz pure alcoho l) none Sex Assigned at Date Recorded Not on file documented as of this encounter Last Filed Vital Signs Vital Sign Reading Time Taken Comments Blood Pressure 100/62 02/28/2017 8:44 AM CDT Pulse 64 02/28/2017 8:44 AM CDT Temperature - - Respiratory Rate - - Oxygen Saturation - - Inhaled Oxygen Concentration - - Weight 63.5 kg (140 lb) 02/28/2017 8:44 AM CDT Height - - Body Mass Index 21.29 11/18/2014 3:24 PM CDT documented in this encounter Progress Notes Wanda Guallpa MD - 02/28/2017 8:45 AM CDT PROCEDURE: Nexplanon removal. Indication: Has had this in for almost 2 years and has bleeding more often than a monthly period that whole time. Procedure was reviewed with the patient and she wished to proceed. Consent form signed and pause forthe cause was done. Risk of removal include bleeding and infection. Patient is placed in supine position with the left arm placed beside head. Nexplanon was palpable in the medial aspect of the left upper arm. Area was cleansed with Betadine. 1% lidocaine was injected at the distal end of the implanon. Scalpel was used to make a 3 mm incision at the end of the Nexplanon. Nexplanon was grasped and elevated. Adhesions that were released sharply and bluntly. Nexplanon was then removed. Entire removal was confirmed as it measured 4 cm. Sterile dressing was placed. Compression bandage also placed. Patient tolerated procedure well. Follow-up as needed. All questions answered. Rx was sent for Nuvaring. She has no contraindications. Will use this for at least 3 months to let her uterus cycle. Then continue with the Nuvaring or try Mierna. documented in this encounter Plan of Treatment Not on filedocumented as of this encounter Visit Diagnoses Diagnosis Surveillance of previously prescribed im plantable subdermal contraceptive - Primary Encounter for initial prescription of va ginal ring hormonal contraceptive documented in this encounter Care Teams Associate Counsel Relationship Specialty Start Date End Date Rosemarie Fuentes, MEDIA AID, COMMERCIAL LOAN UNDERWRITER PCP - General Nurse Practitioner 07/06/16 06/18/18 1415 [facility] [place] [address] documented as of this encounter
--- OUTSIDE RECORDS SUMMARY | 2022-04-25 22:34 | XMS_ITS | Encounter Summary ---
:1985 Author Organization [facility] Address [address] [place] [address] Care Team Providers Name Role Phone Needs Pcp, Assignment Primary Care Provider Reason for Visit Reason Comments LAB RESULTS Encounter Details Date Type Department Care Team Description 10/19/2018 Telephone [place] 1515 Stephanie Grider MD LAB RESULTS [facility]stetrics/[facility]necolog [facility] [place] [address] [place] [address] [place] [phone] (Wo rk) Social History Tobacco Use Types Packs/Day Years Used Date Smoking Tobacco: Never Smokeless Tobacco: Never Alcohol Use Standard Drinks/Week Comments Not Currently 0 (1 standard drink = 0.6 oz pure alcoho l) 2/week Sex Assigned at Date Recorded Not on file documented as of this encounter Nursing Notes India Villar LPN - 10/19/2018 2:53 PM CDT Informed pt of message from Dr. Grider. No further questions at this time. India Villar LPN - 10/19/2018 2:52 PM CDT ----- Message from Stephanie Grider MD sent at 10/19/2018 1:29 PM CDT ----- Borderline anemia. Please encourage pt to take OTC iron supplement or incorporate iron rich foods into diet. documented in this encounter Plan of Treatment Not on filedocumented as of this encounter Visit Diagnoses Not on filedocumented in this encounter Care Teams Tallow Maker Relationship Specialty Start Date End Date Needs Pcp, Assignment PCP - General 09/07/18 10/12/19 [place] [address] documented as of this encounter
--- OUTSIDE RECORDS SUMMARY | 2022-04-25 22:35 | XMS_ITS | Encounter Summary ---
:1985 Author Organization [employer] Address [address] [place] [address] Care Team Providers Name Role Phone Md SOL Lindquist Primary Care Provider Reason for Visit Reason Comments LAB RESULTS Encounter Details Date Type Department Care Team Description 12/23/2014 Telephone [place] 1515 Wanda Guallpa MD LAB RESULTS Obstetrics/Gynecolog y 1515 [facility] [place] [address] [facility] [address] [place] [address] [place] [phone] (Wo rk) Social History Tobacco Use Types Packs/Day Years Used Date Smoking Tobacco: Never Assessed Sex Assigned at Date Recorded Not on file documented as of this encounter Nursing Notes Wanda Montoya RN - 12/23/2014 2:07 PM CDT Patient called back. Reviewed directives below from Dr. Guallpa. Reviewed medication and directions. Verbalizes understanding. Walt Cronin RN - 12/23/2014 1:59 PM CDT LM on to call back for lab results to 7199 Wanda Guallpa MD - 12/23/2014 12:42 PM CDT Nurse to contact pt with the following information: Urine culture confirms bladder infection. I have sent in Rx for Macrobid to [facility] [place]. documented in this encounter Plan of Treatment Not on filedocumented as of this encounter Visit Diagnoses Not on filedocumented in this encounter Care Teams Commercial Insulator Relationship Specialty Start Date End Date Md Lindquist MD PCP - General 08/25/10 07/05/16 [place] [address] documented as of this encounter
--- OUTSIDE RECORDS SUMMARY | 2022-04-25 22:35 | XMS_ITS | Encounter Summary ---
:1985 Author Organization [facility] Address [address] [place] [address] Care Team Providers Name Role Phone Md SOL Lindquist Primary Care Provider Encounter Details Date Type Department Care Team Description 12/31/2014 Imaging [place] Maternal Bico rnuate uterus affecting Medicine , antepartum, [address] unspecified trimester [place] [address] Social History Tobacco Use Types Packs/Day Years Used Date Smoking Tobacco: Never Assessed Sex Assigned at Date Recorded Not on file documented as of this encounter Plan of Treatment Not on filedocumented as of this encounter Procedures Procedure Name Priority Date/Time Associated Diagnosis Comme nts [facility] US Routine 12/31/2014 10:57 AM Bicornuate uterus Res ults for this TRANSVAGINAL, LTD CDT affecting , pr ocedure are in OB US antepartum, the results unspecified section. trimester documented in this encounter Results [place] US Transvaginal, Ltd OB US (12/31/2014 10:57 AM CDT) Anatomical Region Laterality Modality Pelvis Other Study GA Study Date Study CHERI Working CHERI (Source) W eight (Method) 20w2d 12/31/2014 0 g (Other Sour ce) Result Name Value Comments GA by US Calc days BPD cm HC cm AC cm FL cm HL cm FL/BPD % FL/AC % HC/AC CI % YENNY cm FHR 153 bpm Specimen (Source) Anatomical Location Collection Method / Collectio n Time Received Time / Laterality Volume Narrative 12/31/2014 11:11 AM CDT Patient Name: Estefania Mckeon ??Sonogr apher: Gisela Centeno Patient ??GA Prior to Exam : 20w2d , Age: 1 1985, 29 y.o. ??GA by Aidan cuadra'aj US: ?? LMP: Patient's last menstrual period was 08/11/2014 (exact date). ??GA Selected: 20w2d by LMP Pregnancies: ??CHERI Selected: Hx/Indications: Bicornuate uterus seen o n outside Sonohysterogram Severe Iron Deficiency Increased AFP 3.46 MOM on First Trimeste r Screening ? Maternal Evaluation Cervical Length (cm) 4.2 With Fundal Pressure(cm) Unchanged ?? Funneling Absent Cervical Length: Transvaginal Scan Evaluation Gestation Type Holliday Cardiac Activity Present Heart Rate 153 bpm Motion Normal Presentation Cephalic Placenta Right Lateral Amniotic Fluid Normal ? Impression RECOMMENDATIONS: Holliday 20w2d gestation Bicornuate uterus Stable cervical length Francisca Evans MD [facility] documented in this encounter Visit Diagnoses Diagnosis Bicornuate uterus affecting , a ntepartum, unspecified trimester documented in this encounter Care Teams Jtac Relationship Specialty Start Date End Date Md Lindquist MD PCP - General 08/25/10 07/05/16 [place] [address] documented as of this encounter
--- OUTSIDE RECORDS SUMMARY | 2022-04-25 22:35 | XMS_ITS | Encounter Summary ---
:1985 Author Organization [facility] Address [address] [place] [address] Care Team Providers Name Role Phone Md SOL Lindquist Primary Care Provider Encounter Details Date Type Department Care Team Description 01/28/2015 Imaging [place] Maternal Bico rnuate uterus affecting , antepartum, unspecified trimester; Medicine Insertion, velamentous, umbi lical cord, second trimester [facility] [place] [address] Social History Tobacco Use Types Packs/Day Years Used Date Smoking Tobacco: Never Assessed Sex Assigned at Date Recorded Not on file documented as of this encounter Plan of Treatment Not on filedocumented as of this encounter Procedures Procedure Name Priority Date/Time Associated Diagnosis Comme nts MFM OB US F/U, Routine 01/28/2015 11:06 AM Bicornuate uteru s Results for this CVX CDT affecting , procedu re are in antepartum, the results unspecified section. trimester Insertion, velamentous, umbilical cord, second trimester documented in this encounter Results [place] US OB US F/U, CVX (01/28/2015 11:06 AM CDT) Anatomical Region Laterality Modality Pelvis Other Study GA Study Date Study CHERI Working CHERI (Source) W eight (Method) 24w2d 01/28/2015 840 g (Hadlock 1984 (AC))717 g (Hadlock 1984 ( AC, FL))753 g (Rivera 1981 ( BPD, AC))722 g (Hadlock 1983 ( HC, AC))713 g (Hadlock 1985 ( BPD, AC, FL))688 g (Hadlock 1985 ( HC, AC, FL))694 g (Hadlock 1984 ( BPD, HC, AC, FL) )0 g (Other Source ) Result Name Value Comments GA by US Calc 167 days 167 BPD 6.1 cm 173 HC 21.58 cm 165 AC 20.55 cm 175 FL 4.18 cm 165 HL 3.84 cm FL/BPD 68.52 % FL/AC 20.34 % HC/AC 1.05 CI 81.55 % YENNY 15.11 cm FHR 145 bpm CER 2.57 cm Cisterna Magna .83 cm UAR - PSV 44.29 cm/s UAR - RI .73 UAR - S/D Ratio 3.7 Specimen (Source) Anatomical Location Collection Method / Collectio n Time Received Time / Laterality Volume Narrative 01/28/2015 11:14 AM CDT Patient Name: Estefania Mckeon ??Sonogr apher: Heather Guzman Patient ??GA Prior to Exam : 24w2d , Age: 1 1985, 29 y.o. ??GA by Aidan kincaid US: 23w6d LMP: Patient's last menstrual period was 08/11/2014 (exact date). ??GA Selected: 24w2d by LMP Pregnancies: ??CHERI Selected: Hx/Indications: Bicornuate uterus seen o n outside Sonohysterogram Severe Iron Deficiency Increased AFP 3.46 MOM on First Trimeste r Screening Velamentous PCI ? Maternal Evaluation Cervical Length (cm) 3.7 Right Ovary Normal With Fundal Pressure(cm) Unchanged ?? Left Ovary Normal Funneling Absent Right Adnexa Normal Uterus Normal Left Adnexa Normal Biometry & Growth Measurement Value Percentile GA BPD 6.1 cm 63% 24w5d HC 21.58 cm 12% 23w4d AC 20.55 cm 68% 25w0d FL 4.18 cm 18% 23w4d HL 3.84 cm 5% - 50% ?? FL/BPD 68.52 % < 71% ?? FL/AC 20.34 % 20% - 24% ?? HC/AC 1.05 5% - 50% ?? CI 81.55 % 70% - 86% ?? YENNY 15.11 cm 50% - 95% ?? CER 2.57 cm 10% - 50% ?? Cisterna Magna 0.83 cm ?? Weight: 694 g (1 lb 8.5 oz) ??EFW 53% Doppler Umbilical Artery UAR - S/D Ratio UAR - RI UAR - PSV 3.7 0.73 44.29 cm/s, 1.29 - 1.5 MoM ?? Evaluation Gestation Type Holliday Cardiac Activity Present Heart Rate 145 bpm Motion ??Normal Presentation Breech Placenta Location Right Lateral Amniotic Fluid Normal Placenta Cord Insertion Inadequately Vis ualized Anatomy Finding Normal Abnormal Inadequately Vis ualized 4 Chamber Heart ? X LVOT/AO ? X RVOT/PA ? X Stomach X ? Right Kidney X ? Left Kidney X ? Bladder X ? Impression Holliday 24w2d gestation Normal growth Normal cervical length Known bicornuate uterus RECOMMENDATIONS: Repeat ultrasound for growth is in dicated at 30 weeks gestation due to the elevated MSAFP in early . In addition, US for EFW would be indicated for size < dates. Francisca Evans MD RAD [place] US documented in this encounter Visit Diagnoses Diagnosis Bicornuate uterus affecting , a ntepartum, unspecified trimester Insertion, velamentous, umbilical cord, second trimester documented in this encounter Care Teams Expanded Function Dental Assistant Relationship Specialty Start Date End Date Md Lindquist MD PCP - General 08/25/10 07/05/16 [place] [address] documented as of this encounter
--- OUTSIDE RECORDS SUMMARY | 2022-04-25 22:35 | XMS_ITS | Encounter Summary ---
:1985 Author Organization [email or web address] Address [address] [address] Care Team Providers Name Role Phone Md SOL Lindquist Primary Care Provider Reason for Visit Reason Comments VAGINAL BLEEDING Encounter Details Date Type Department Care Team Description 09/22/2015 Nurse Triage [place] 1515 Wanda Montoya, TYRONE B [facility] Obstetrics/Gynecolog y RN 1515 [facility] [place] [address] Social History Tobacco Use Types Packs/Day Years Used Date Smoking Tobacco: Never Assessed Sex Assigned at Date Recorded Not on file documented as of this encounter Nursing Notes Wanda Montoya, RN - 09/22/2015 11:03 AM CDT Protocol: VAGINAL BLEEDING - [id number] Affirmative: Has Implanon subdermal implant Disposition of Home Care suggested. Patient called. Nexplanon 06-09-15. Getting her period every two weeks. Like a normal period; lasts for 4 days. Advised to monitor; should get better over time. Routed to Dr. Guallpa. Only need to advise if other directives. [phone] documented in this encounter Plan of Treatment Not on filedocumented as of this encounter Visit Diagnoses Not on filedocumented in this encounter Care Teams Training Representative Relationship Specialty Start Date End Date Md Lindquist MD PCP - General 08/25/10 07/05/16 [place] [address] documented as of this encounter
--- OUTSIDE RECORDS SUMMARY | 2022-04-25 22:35 | XMS_ITS | Encounter Summary ---
:1985 Author Organization [employer] Address [address] [place] [address] Care Team Providers Name Role Phone Md SOL Lindquist Primary Care Provider Encounter Details Date Type Department Care Team Description 03/17/2015 Lab Visit [place] [facility] Abnormal glucose [address] complicating [place] [address] Social History Tobacco Use Types Packs/Day Years Used Date Smoking Tobacco: Never Assessed Sex Assigned at Date Recorded Not on file documented as of this encounter Plan of Treatment Not on filedocumented as of this encounter Procedures Procedure Name Priority Date/Time Associated Diagnosis Comme nts GTT 2HR ORAL Routine 03/17/2015 9:09 AM Abnormal glucose Resul ts for this GESTATIONAL CDT complicating procedure are i n the results section. documented in this encounter Results GTT 2HR ORAL GESTATIONAL (03/17/2015 9:09 AM CDT) [facility] Method Time Signature Glucose, Fasting 79 mg/dL HP CONVERSION Glucose, GTT - 1 159 mg/dL HP CONVERSION Hour Glucose, GTT - 2 93 mg/dL HP CONVERSION Hour Glucose see below HP CONVERSION Tolerance Gestational Interp Comment: Glucose data are non-diagnostic for Gest ational Diabetes. The diagnosis of GDM is made when any of the following plasma glucose values ARE EQUAL TO OR EX CEED: Fasting: >=92 mg/dl 1 h: >=180 mg/dl 2 h: >=153 mg/dl Specimen Anatomical Collection Method Collection Time Receive d Time (Source) Location / / Volume Laterality 03/17/2015 9:09 AM 5 CDT 11:54 AM CDT Narrative HP CONVERSION - 03/17/2015 8:55 PM CDT Performed at [facility], [address] [place] [address] CLIA number [id number] Wanda Guallpa MD LAB_1 Performing Organization Address City/State/ZIP Code Phon e Number HP CONVERSION documented in this encounter Visit Diagnoses Diagnosis Abnormal glucose complicating Abnormal maternal glucose tolerance, com plicating , childbirth, or the puerperium, unspecified as to episode of care documented in this encounter Care Teams Hardwood Floor Installation Helper Relationship Specialty Start Date End Date Md Lindquist MD PCP - General 08/25/10 07/05/16 [place] [address] documented as of this encounter
--- OUTSIDE RECORDS SUMMARY | 2022-04-25 22:35 | XMS_ITS | Encounter Summary ---
:1985 Author Organization [facility] Address [address] [place] [address] Care Team Providers Name Role Phone Md SOL Lindquist Primary Care Provider Encounter Details Date Type Department Care Team Description 01/14/2015 Notes/Orders [facility] 3931 Troy Evans MD Insertion, Maternal 3931 [facility] tous, Medicine [place] [address]111 umbilical cord, 3931 [facility]. [place], [place] uns pecified trimester S. [address] (Primary Dx) [place] [address] [phone] Social History Tobacco Use Types Packs/Day Years Used Date Smoking Tobacco: Never Assessed Sex Assigned at Date Recorded Not on file documented as of this encounter Plan of Treatment Not on filedocumented as of this encounter Visit Diagnoses Diagnosis Insertion, velamentous, umbilical cord, unspecified trimester - Primary documented in this encounter Care Teams Spot Billing Clerk Relationship Specialty Start Date End Date Md Lindquist MD PCP - General 08/25/10 07/05/16 [place] [address] documented as of this encounter
--- OUTSIDE RECORDS SUMMARY | 2022-04-25 22:35 | XMS_ITS | Encounter Summary ---
:1985 Author Organization [employer] Address [address] [place] [address] Care Team Providers Name Role Phone Md SOL Lindquist Primary Care Provider Reason for Visit Reason Comments Routine Visit Encounter Details Date Type Department Care Team Description 04/28/2015 Routine [place] 1515 Wanda Guallpa Routi ne Obstetrics/Gynecolog MD Visit y 1515 [facility] [address] [place] [address] [place] [phone] Social History Tobacco Use Types Packs/Day Years Used Date Smoking Tobacco: Never Assessed Sex Assigned at Date Recorded Not on file documented as of this encounter Last Filed Vital Signs Vital Sign Reading Time Taken Comments Blood Pressure 118/84 04/28/2015 3:00 PM SENIOR LANDSCAPE ARCHITECT Pulse - - Temperature - - Respiratory Rate - - Oxygen Saturation - - Inhaled Oxygen Concentration - - Weight 73.2 kg (161 lb 6.4 oz) 04/28/2015 3:00 PM SENIOR LANDSCAPE ARCHITECT Height - - Body Mass Index 24.54 11/18/2014 3:24 PM CDT documented in this encounter Progress Notes Wanda Guallpa MD - 04/28/2015 3:28 PM CST VISIT Patient reports lots of contractions and pelvic pressure. Check growth. Follow-up in 1 weeks OR LANDSCAPE ARCHITECT documented in this encounter Plan of Treatment Not on filedocumented as of this encounter Visit Diagnoses Diagnosis Bicornuate uterus affecting , a ntepartum, third trimester - Primary documented in this encounter Care Teams Data Coder Operator Relationship Specialty Start Date End Date Md Lindquist MD PCP - General 08/25/10 07/05/16 [place] [address] documented as of this encounter
--- OUTSIDE RECORDS SUMMARY | 2022-04-25 22:35 | XMS_ITS | Encounter Summary ---
:1985 Author Organization [facility] Address [address] [place] [address] Care Team Providers Name Role Phone Md SOL Lindquist Primary Care Provider Reason for Visit Reason Comments Routine Visit Encounter Details Date Type Department Care Team Description 01/10/2015 Routine [place] 1515 Wanda Guallpa Routi ne Obstetrics/Gynecolog MD Visit y 1515 [facility] [address] [place] [address] [place] [facility] [place] [phone] Social History Tobacco Use Types Packs/Day Years Used Date Smoking Tobacco: Never Assessed Sex Assigned at Date Recorded Not on file documented as of this encounter Last Filed Vital Signs Vital Sign Reading Time Taken Comments Blood Pressure 90/62 01/10/2015 10:59 AM CDT Pulse - - Temperature - - Respiratory Rate - - Oxygen Saturation - - Inhaled Oxygen Concentration - - Weight 68.4 kg (150 lb 12.8 oz) 01/10/2015 10:59 AM CDT Height - - Body Mass Index 22.93 11/18/2014 3:24 PM CDT documented in this encounter Patient Instructions Patient InstructionsWalt Cronin RN - 01/10/2015 11:00 AM CDT Thank you for choosing [facility] for your care. We recommend you continue to review the book Your Guide to and schedule education classes. documented in this encounter Progress Notes Wanda Guallpa MD - 01/10/2015 11:27 AM CDT VISIT Patient reports baby is always on the right side - pain from her movement, trouble sleeping. Cervical length has been normal. Follow up: 4 weeks documented in this encounter Plan of Treatment Not on filedocumented as of this encounter Visit Diagnoses Diagnosis Bicornuate uterus affecting , a ntepartum, second trimester - Primary documented in this encounter Care Teams Senior Clinical Sas Programmer Relationship Specialty Start Date End Date Md Lindquist MD PCP - General 08/25/10 07/05/16 [place] [address] documented as of this encounter
--- OUTSIDE RECORDS SUMMARY | 2022-04-25 22:35 | XMS_ITS | Encounter Summary ---
:1985 Author Organization [employer] Address [address], [place] [address] Care Team Providers Name Role Phone Md SOL Lindquist Primary Care Provider Reason for Visit Reason Comments Concerns Encounter Details Date Type Department Care Team Description 05/07/2015 Nurse Triage [place] 1515 Wanda Guallpa, Concerns Obstetrics/Gynecolog y 1515 [facility] . 1515 [place] [address] [address] [address] [place] [phone] (Wo rk) Social History Tobacco Use Types Packs/Day Years Used Date Smoking Tobacco: Never Assessed Sex Assigned at Date Recorded Not on file documented as of this encounter Nursing Notes Yassine Ramirez RN - 05/07/2015 2:19 PM CST Protocol: - RUPTURE OF [id number] Affirmative: Leakage of fluid from vagina Disposition of Go To LD Now suggested. Pt is 36 weeks, 3 days and is calling re:possible rupture of membranes. She states that previously she passed mucous plug, but just now notes very wet underwear. It is a clear fluid. Only occasional cramping. Baby is active. Rec: to L&D. .[facility] L&D notified. SIFYING MACHINE OPERATOR documented in this encounter Plan of Treatment Not on filedocumented as of this encounter Visit Diagnoses Not on filedocumented in this encounter Care Teams Asset Protection Manager Relationship Specialty Start Date End Date Md Lindquist MD PCP - General 08/25/10 07/05/16 [place] [address] documented as of this encounter
--- OUTSIDE RECORDS SUMMARY | 2022-04-25 22:35 | XMS_ITS | Encounter Summary ---
:1985 Author Organization [facility] Address [address] [place] [address] Care Team Providers Name Role Phone Rosemarie Fuentes APRN, ORGAN GRINDER Primary Care Provider [phone] Reason for Visit Reason Onset Date Comments Bleeding, Irregular 02/21/2017 Contraception 02/21/2017 Encounter Details Date Type Department Care Team Description 02/21/2017 Nurse Triage [place] 1515 Wanda Guallpa, Bleeding, Irregular; Obstetrics/Gynecolog y Contraception 1515 [facility] . 1515 [place] [address] [facility] [address] [place] [address] Social History Tobacco Use Types Packs/Day Years Used Date Smoking Tobacco: Never Smokeless Tobacco: Never Alcohol Use Standard Drinks/Week Comments No 0 (1 standard drink = 0.6 oz pure alcoho l) none Sex Assigned at Date Recorded Not on file documented as of this encounter Nursing Notes Louisa Catalan RN - 02/21/2017 4:19 PM CDT Reason for Disposition ??? Wants to get control implant removed Protocols used: CONTRACEPTION - IMPLANT SYMPTOMS AND [id number] Pt calling with concerns of irregular bleeding that started when she had the Nexplanon inserted about a year ago. States that she will get a period and then stop bleeding for a couple of days and then she'll have camera person bleeding for about a week. Denies dizziness, lightheadedness and abdominal pain Future Appointments Date Time Provider Department Center 02/28/2017 8:45 AM Wanda Guallpa MD [facility] documented in this encounter Plan of Treatment Not on filedocumented as of this encounter Visit Diagnoses Not on filedocumented in this encounter Care Teams Mixed Crop And Livestock Farmer Relationship Specialty Start Date End Date Rosemarie Fuentes APRN, ORGAN GRINDER PCP - General Nurse Practitioner 07/06/16 1 1415 [place] [address] documented as of this encounter
--- OUTSIDE RECORDS SUMMARY | 2022-04-25 22:35 | XMS_ITS | Encounter Summary ---
:1985 Author Organization [employer] Address [address] [address] Care Team Providers Name Role Phone Md SOL Lindquist Primary Care Provider Reason for Visit Reason Onset Date Comments BLADDER INFECTION 06/30/2016 Medication Request 06/30/2016 Encounter Details Date Type Department Care Team Description 06/30/2016 Nurse Triage [place] Family Needs Pcp, BLADDER INFE CTION; Medicine Assignment Medication Request 1415 [facility] [place] [address] CLINIC [phone] [place], [place] [address] Social History Tobacco Use Types Packs/Day Years Used Date Smoking Tobacco: Never Smokeless Tobacco: Never Alcohol Use Standard Drinks/Week Comments No 0 (1 standard drink = 0.6 oz pure alcoho l) none Sex Assigned at Date Recorded Not on file documented as of this encounter Nursing Notes Akila Gotti RN - 06/30/2016 8:57 AM CST Protocol: URINARY [id number] Affirmative: Bad or foul-smelling urine Disposition of See Physician Within 24 Hours suggested. Spoke with patient. C/o cloudy and foul smelling urine for the past 2 weeks. Has a history of UTI's.Currently has an 11 mm kidney stone which she has had for 2 years. Denies fever, flank pain, blood in urine, burning or frequency. Future Appointments Date Time Provider Department Center 06/30/2016 1:00 PM Thiner, Rosemarie N, CLIENT DEVELOPMENT MANAGER, TECHNOLOGY SPECIALIST DEBRA FM PN DEBRA DROGENATION CONVERTER HELPER Leandra Arvizu - 06/30/2016 8:46 AM CST Pt requesting to speak to nurse regarding possible bladder infection. Pt states urine is cloudy. Pt requesting if medication could be prescribed. Please advise and thank you. DROGENATION CONVERTER HELPER documented in this encounter Plan of Treatment Not on filedocumented as of this encounter Visit Diagnoses Not on filedocumented in this encounter Care Teams Material Loader Relationship Specialty Start Date End Date Md Lindquist MD PCP - General 08/25/10 07/05/16 [place] [address] documented as of this encounter
--- OUTSIDE RECORDS SUMMARY | 2022-04-25 22:35 | XMS_ITS | Encounter Summary ---
:1985 Author Organization [facility] Address [address] [place] [address] Care Team Providers Name Role Phone Md SOL Lindquist Primary Care Provider Encounter Details Date Type Department Care Team Description 03/07/2015 Imaging [place] 1515 Ultras ound Bicornuate uterus affecting 1515 [facility] . , antepartum, [place] [address] second trimester [phone] Social History Tobacco Use Types Packs/Day Years Used Date Smoking Tobacco: Never Assessed Sex Assigned at Date Recorded Not on file documented as of this encounter Plan of Treatment Not on filedocumented as of this encounter Procedures Procedure Name Priority Date/Time Associated Diagnosis Comme [facility] US OB FOLLOW-UP FOR Routine 03/07/2015 1:16 PM Bicornuate uter us Results for this GROWTH SINGLE CDT affecting , proced ure are in (INCLUDES YENNY) antepartum, second the res ults trimester section. documented in this encounter Results US OB Follow-Up For Growth Single (Includes YENNY) (03/07/2015 1:16 PM CDT) Anatomical Region Laterality Modality Pelvis Other Study GA Study Date Study CHERI Working CHERI (Source) W eight (Method) 1438 g (Hadlock 1983 (AC))1392 g (Hadlock 1984 ( AC, FL))1396 g (Rivera 1981 ( BPD, AC))1427 g (Hadlock 1983 ( HC, AC))1389 g (Hadlock 1984 ( BPD, AC, FL))1391 g (Hadlock 1984 ( HC, AC, FL))1387 g (Hadlock 1984 ( BPD, HC, AC, FL) ) Result Name Value Comments FHR 167.00 bpm GA by US Calc 206.00 days 206 CI 75.58 % HC/AC 1.13 FL/BPD 74.73 % FL/AC 22.72 % BPD 7.52 cm 211 HC 27.95 cm 214 AC 24.74 cm 203 FL 5.62 cm 207 YENNY 14.90 cm Specimen (Source) Anatomical Location Collection Method / Collectio n Time Received Time / Laterality Volume Impressions 03/07/2015 1:19 PM CDT IMPRESSION: 1. Single living IUP with EGA 29 weeks 3 days compared with EGA by LMP 29 weeks 5 days. Narrative 03/07/2015 1:19 PM CDT COMPARISON: ??01/28/2015. FINDINGS: ??A follow-up OB ultrasound wa s performed. ??Transabdominal ??imaging was performed. Type of Gestation: ??Holliday. Presentation: ??breech Movement Present: ??Yes Cardiac Rate: ??167 bpm and is regular 4-quadrant YENNY: 14.9 cm. Normal. Q1: 1.2 cm. Q2: 5.4 cm. Q3: 5.1 cm. Q4: 3.3 cm. Placental Position: Rt lateral. Normal. Cervix Length (cm): ??Not visualized LIMITED ANATOMIC SURVEY RESULTS: ??Visua lized structures unremarkable The limited anatomic survey includes ass essment of: ??Heart: 4 Chamber View, M- Mode, Bladder, Stomach, Kidneys. Measurements (Source Hadlock): BPD: ??7.5 cm = 30w1d HC: 28.0 cm = 30w4d AC: ??24.7 cm = 29w0d FL: ??5.6 cm = 29w4d Anatomic Ratios: ??Within normal limits Abdominal Circumference Percentile: 23.0 Estimated Weight: ??1387 grams Weight Percentile: 46.4 GA by LMP: ??29w5d GA by Prior US: ??29w6d GA by today's US: ??29w3d CHERI by today's US: ??05/20/2015 Other Findings: None. Procedure Note Alvarado Horne - 11/09/2015Formatt ing of this note might be different from the original. COMPARISON: 01/28/2015. FINDINGS: A follow-up OB ultrasound was performed. Transabdominal imaging was performed. Type of Gestation: Holliday. Presentation: breech Movement Present: Yes Cardiac Rate: 167 bpm and is regular 4-quadrant YENNY: 14.9 cm. Normal. Q1: 1.2 cm. Q2: 5.4 cm. Q3: 5.1 cm. Q4: 3.3 cm. Placental Position: Rt lateral. Normal. Cervix Length (cm): Not visualized LIMITED ANATOMIC SURVEY RESULTS: Visuali zed structures unremarkable The limited anatomic survey includes ass essment of: Heart: 4 Chamber View, M- Mode, Bladder, Stomach, Kidneys. Measurements (Source Hadlock): BPD: 7.5 cm = 30w1d HC: 28.0 cm = 30w4d AC: 24.7 cm = 29w0d FL: 5.6 cm = 29w4d Anatomic Ratios: Within normal limits Abdominal Circumference Percentile: 23.0 Estimated Weight: 1387 grams Weight Percentile: 46.4 GA by LMP: 29w5d GA by Prior US: 29w6d GA by today's US: 29w3d CHERI by today's US: 05/20/2015 Other Findings: None. IMPRESSION IMPRESSION: 1. Single living IUP with EGA 29 weeks 3 days compared with EGA by LMP 29 weeks 5 days. Wanda Guallpa MD [facility] documented in this encounter Visit Diagnoses Diagnosis Bicornuate uterus affecting , a ntepartum, second trimester documented in this encounter Care Teams Single Needle Operator Relationship Specialty Start Date End Date Md Lindquist MD PCP - General 08/25/10 07/05/16 [place] [address] documented as of this encounter
--- OUTSIDE RECORDS SUMMARY | 2022-04-25 22:35 | XMS_ITS | Encounter Summary ---
:1985 Author Organization [email or web address] Address [address] [place] [address] Care Team Providers Name Role Phone Md SOL Lindquist Primary Care Provider Reason for Visit Reason Comments LABOR Encounter Details Date Type Department Care Team Description 05/01/2015 Nurse Triage [place] 1515 Wanda Guallpa MD LABOR Obstetrics/Gynecolog y [address] [facility] [address] [place] [address] [place] [address] [place] [phone] (Wo rk) Social History Tobacco Use Types Packs/Day Years Used Date Smoking Tobacco: Never Assessed Sex Assigned at Date Recorded Not on file documented as of this encounter Nursing Notes Kerry Sepulveda RN - 05/01/2015 6:18 PM CST Protocol: - RUPTURE OF [id number]-[id number]-XS(04/14) Affirmative: Leakage of fluid from vagina Disposition of Go To LD Now suggested. Negative: Vaginal bleeding Negative: Sounds like a life-threatening emergency to the triager Negative: Can see baby Negative: < 20 weeks Pt is calling she is 37 weeks 4 days . This afternoon at about 2:30 PM she had a lot of white and clear discharge. She also started to have a lot of back pain. She states her stomach is really tight and hard, I have been resting since 4:30 but it does not help. She denies contractions are regular or less than 10 minutes. She is really complaining about the amount of back pain she is having. She is rating it at a 6/10. Gave a courtesy call to [facility] L @ D. RNATIONAL BANK MANAGER documented in this encounter Plan of Treatment Not on filedocumented as of this encounter Visit Diagnoses Not on filedocumented in this encounter Care Teams Director Of In Service Education Relationship Specialty Start Date End Date Md Lindquist MD PCP - General 08/25/10 07/05/16 [place] [address] documented as of this encounter
--- OUTSIDE RECORDS SUMMARY | 2022-04-25 22:35 | XMS_ITS | Encounter Summary ---
:1985 Author Organization [employer] Address [address] [address] Care Team Providers Name Role Phone Rosemarie Fuentes APRN, TAYLA Primary Care Provider Reason for Visit Reason Onset Date Comments Provider Return Call Request 07/06/2016 FOLLOW-UP,UTI 07/06/2016 Encounter Details Date Type Department Care Team Description 07/06/2016 Nurse Triage [place] Family Needs Pcp, Provider Ret urn Call Medicine Assignment Request; 1415 [facility] FOLLOW-UP,[place] [address] CLINIC [phone] [place], [place] [address] Social History Tobacco Use Types Packs/Day Years Used Date Smoking Tobacco: Never Smokeless Tobacco: Never Alcohol Use Standard Drinks/Week Comments No 0 (1 standard drink = 0.6 oz pure alcoho l) none Sex Assigned at Date Recorded Not on file documented as of this encounter Nursing Notes Rosalinda Barakat LPN - 07/07/2016 2:12 PM CST Called and spoke with pt gave her the below message. Pt states she would come in after work today. OSOPHY INSTRUCTOR Rosemarie Fuentes APRN, TAYLA - 07/07/2016 9:08 AM CST Order available. She can stop and leave this sample any time. Thanks. OSOPHY INSTRUCTOR Betty Roper RN - 07/06/2016 9:46 AM CST Reason for Call: Clinician input needed on symptom based concern. and Requests call from clinician. For Tue07-07-16. Next Steps: Document further recommendations and route to appropriate person or pool. Caller IS expecting a call back from Care Team. Additional Information: Pt requesting order from PCP for a UA/UC to follow up on UTI, as she remainssymptomatic. Pt is feeling better after finishing Macrodantin on 06-30-16, but has a sensation of bladder pressure at times, with occasional brief stabs of pain. Denies fever, flank or back pain, dysuria, N/V. Pt prefers to wait for input from PCP. OSOPHY INSTRUCTOR Josefina Gonsales - 07/06/2016 9:35 AM CST Pt calling states she was treated for a bladder infection, states she finished the medication but isstill having symptoms, transferred to triage. OSOPHY INSTRUCTOR documented in this encounter Plan of Treatment Not on filedocumented as of this encounter Results (ABNORMAL) Urinalysis Routine, Micro/Culture if Pos (07/07/2016 3:09 PM PHILOSOPHY INSTRUCTOR) [facility] Method Time Signature Urine Type URINE:clean PN SOFT cat Turbidity Sl Cloudy Clear PN SOFT (A) U BILI Negative Negative PN SOFT Blood Urine Moderate (A) Neg - Trace PN SOFT Glucose, Negative Neg-30 PN SOFT Qualitative U mg/dL Ketones Negative Negative PN SOFT Leukocyte Large (A) Negative PN SOFT Esterase Urine Nitrite Urine Negative Negative PN SOFT pH Urine 6.5 5.0 - 8.0 PN SOFT Protein Urine Negative Neg - Trace PN SOFT mg/dL U Specific 1.020 1.005 - PN SOFT [place] 1.030 Urobilinogen Negative Negative PN SOFT Urine Eu/dL Specimen (Source) Anatomical Collection Method Collection Time Re ceived Time Location / / Volume Laterality Urine: 07/07/2016 3:09 PM PHILOSOPHY INSTRUCTOR Narrative PN SOFT - 07/07/2016 3:10 PM PHILOSOPHY INSTRUCTOR Performed at [facility], [address] [place] [address] CLIA number [id number] Rosemarie Fuentes APRN, CNP LAB_1 Performing Organization Address City/State/ZIP Code Phon e Number PN SOFT [address] [place] [address] [phone] documented in this encounter Visit Diagnoses Diagnosis Dysuria - Primary Dysuria documented in this encounter Care Teams Public Works Commissioner Relationship Specialty Start Date End Date Rosemarie Fuentes APRN, CNP PCP - General Nurse Practitioner 07/06/16 06/18/[address] [place] [address] [place] [address] documented as of this encounter
--- OUTSIDE RECORDS SUMMARY | 2022-04-25 22:35 | XMS_ITS | Encounter Summary ---
:1985 Author Organization [facility] Address [address] [address] Care Team Providers Name Role Phone Md SOL Lindquist Primary Care Provider Reason for Visit Reason Comments Concerns Encounter Details Date Type Department Care Team Description 05/06/2015 Nurse Triage [place] [address] [place], Concerns Obstetrics/Gynecolog y RN 1515 [place] [place] [address] Social History Tobacco Use Types Packs/Day Years Used Date Smoking Tobacco: Never Assessed Sex Assigned at Date Recorded Not on file documented as of this encounter Nursing Notes Wanda [place], RN - 05/06/2015 2:44 PM CST Protocol: BREATHING [id number]-YR Affirmative: or (< 1 month since delivery) Disposition of Go To ED Now (Or To Office With PCP Approval) suggested. Patient called. . 38 w 2 d. C/O shooting pains left shoulder below collar bone; pain when takinga deep breath. Advised to go to ED. Verbalizes understanding. Routed to Dr. Guallpa for FYI R SALES MANAGER documented in this encounter Plan of Treatment Not on filedocumented as of this encounter Visit Diagnoses Not on filedocumented in this encounter Care Teams Youth Manager Relationship Specialty Start Date End Date Md Lindquist MD PCP - General 08/25/10 07/05/16 [place] [address] documented as of this encounter
--- OUTSIDE RECORDS SUMMARY | 2022-04-25 22:35 | XMS_ITS | Encounter Summary ---
:1985 Author Organization [employer] Address [address] [place] [address] Care Team Providers Name Role Phone Md SOL Lindquist Primary Care Provider Reason for Visit Reason Comments Routine Visit Encounter Details Date Type Department Care Team Description 03/07/2015 Routine [place] 1515 Wanda Guallpa Routi ne Obstetrics/Gynecolog MD Visit y 1515 [facility] [address] [address] [place] [address] [phone] Social History Tobacco Use Types Packs/Day Years Used Date Smoking Tobacco: Never Assessed Sex Assigned at Date Recorded Not on file documented as of this encounter Last Filed Vital Signs Vital Sign Reading Time Taken Comments Blood Pressure 108/70 03/07/2015 1:22 PM CDT Pulse - - Temperature - - Respiratory Rate - - Oxygen Saturation - - Inhaled Oxygen Concentration - - Weight 70.8 kg (156 lb 1.6 oz) 03/07/2015 1:22 PM CDT Height - - Body Mass Index 23.73 11/18/2014 3:24 PM CDT documented in this encounter Progress Notes Wanda Guallpa MD - 03/07/2015 1:40 PM CDT VISIT Patient reports no complaints. Ultrasound today shows baby at 46th percentile for EFW (1387 gram). Imeasure fundal height off to right as baby is in that side of uterus. Baby is currently breech and patient understands that baby may stay breech in which case we'd do a at 39 weeks. O'Mai and Hemoglobin today.Will call if abnormal. Rh type: Positive Follow-up in 4 weeks documented in this encounter Plan of Treatment Not on filedocumented as of this encounter Visit Diagnoses Diagnosis Bicornuate uterus affecting , a ntepartum, third trimester - Primary Screening for iron deficiency anemia Screening for diabetes mellitus Maternal renal lithiasis, current pregna ncy, third trimester documented in this encounter Care Teams Roguer Relationship Specialty Start Date End Date Md Lindquist MD PCP - General 08/25/10 07/05/16 [place] [address] documented as of this encounter
--- OUTSIDE RECORDS SUMMARY | 2022-04-25 22:35 | XMS_ITS | Encounter Summary ---
:1985 Author Organization [employer] Address [address] [place] [address] Care Team Providers Name Role Phone Md SOL Lindquist Primary Care Provider Reason for Visit Reason Comments Routine Visit Encounter Details Date Type Department Care Team Description 04/21/2015 Routine [place] 1515 Wanda Guallpa Routi ne Obstetrics/Gynecolog MD Visit y 1515 [facility] [address] [place] [phone] Social History Tobacco Use Types Packs/Day Years Used Date Smoking Tobacco: Never Assessed Sex Assigned at Date Recorded Not on file documented as of this encounter Last Filed Vital Signs Vital Sign Reading Time Taken Comments Blood Pressure 124/70 04/21/2015 1:58 PM HOME MAKER Pulse - - Temperature - - Respiratory Rate - - Oxygen Saturation - - Inhaled Oxygen Concentration - - Weight 74.5 kg (164 lb 4.8 oz) 04/21/2015 1:58 PM HOME MAKER Height - - Body Mass Index 24.98 11/18/2014 3:24 PM CDT documented in this encounter Progress Notes Wanda Guallpa MD - 04/21/2015 2:25 PM CST VISIT Patient reports occasional contractions. Due to bicornuate uterus I verified vertex with ultrasound.GBS collected. Discussed when to come to hospital for labor or rupture of membranes. Follow-up in 1 week MAKER documented in this encounter Plan of Treatment Not on filedocumented as of this encounter Procedures Procedure Name Priority Date/Time Associated Diagnosis Comme nts GROUP B STREP Routine 04/21/2015 2:53 PM screening R esults for this SCREEN (OB PTS) HOME MAKER for streptococcus B proce dure are in the results section. documented in this encounter Results Group B Strep Screen (OB Pts) (04/21/2015 2:53 PM HOME MAKER) [facility] gist Method Time Signature Source Vag/Rec HP CONVERSION Site HP CONVERSION Culture Strep No beta HP CONVERSION Screen Other hemolytic Source Streptococcus , Group A or B Specimen (Source) Anatomical Collection Method Collection Time Re ceived Time Location / / Volume Laterality Vag/Rec: 04/21/2015 2:53 PM HOME MAKER Narrative HP CONVERSION - 04/23/2015 10:14 AM HOME MAKER Performed at [facility], [address] [place] [address], CLIA Number [id number] Wanda Guallpa MD LAB_1 Performing Organization Address City/State/ZIP Code Phon e Number HP CONVERSION documented in this encounter Visit Diagnoses Diagnosis Bicornuate uterus affecting , a ntepartum, third trimester - Primary screening for streptococcus B screening for Streptococcus B documented in this encounter Care Teams Clinical Dermatologist Relationship Specialty Start Date End Date Md Lindquist MD PCP - General 08/25/10 07/05/16 [place] [address] documented as of this encounter
--- OUTSIDE RECORDS SUMMARY | 2022-04-25 22:35 | XMS_ITS | Encounter Summary ---
:1985 Author Organization [facility] Address [address], [place] [address] Care Team Providers Name Role Phone Md SOL Lindquist Primary Care Provider Reason for Visit Reason Comments Concerns Encounter Details Date Type Department Care Team Description 03/12/2015 Nurse Triage [place] [phone] Lenora Obregon, Concerns Obstetrics/Gynecolog y RN 1515 [facility] [place] [address] Social History Tobacco Use Types Packs/Day Years Used Date Smoking Tobacco: Never Assessed Sex Assigned at Date Recorded Not on file documented as of this encounter Nursing Notes eLnora Obregon, RN - 03/12/2015 11:34 AM CDT Protocol: - VAGINAL [id number] Affirmative: Normal vaginal discharge in Disposition of Home Care suggested. Pt c/o passing a large amount of clear discharge. Denies uterine tightening, contractions, spotting,bleeding, fever, UTI or any other symptoms. Recommendations (see care advice section) given per protocol. She voices understanding and acceptance of this advice and will call back if any further questions or concerns. documented in this encounter Plan of Treatment Not on filedocumented as of this encounter Visit Diagnoses Not on filedocumented in this encounter Care Teams Family Protection Specialist Relationship Specialty Start Date End Date Md Lindquist MD PCP - General 08/25/10 07/05/16 [place] [address] documented as of this encounter
--- OUTSIDE RECORDS SUMMARY | 2022-04-25 22:35 | XMS_ITS | Encounter Summary ---
:1985 Author Organization [facility] Address [address] [place] [address] Care Team Providers Name Role Phone Md SOL Lindquist Primary Care Provider Encounter Details Date Type Department Care Team Description 04/29/2015 Imaging [place] 1515 Ultras ound Bicornuate uterus affecting 1515 [place] . , antepartum, third [place] [address] trimester [phone] Social History Tobacco Use Types Packs/Day Years Used Date Smoking Tobacco: Never Assessed Sex Assigned at Date Recorded Not on file documented as of this encounter Plan of Treatment Not on filedocumented as of this encounter Procedures Procedure Name Priority Date/Time Associated Diagnosis Comme nts US OB FOLLOW-UP FOR Routine 04/29/2015 10:16 AM Bicornuate [place] Results for this GROWTH SINGLE JUNIOR BUSINESS ANALYST affecting , proced ure are in (INCLUDES YENNY) antepartum, third the resu lts trimester section. documented in this encounter Results US OB Follow-Up For Growth Single (Includes YENNY) (04/29/2015 10:16 AM JUNIOR BUSINESS ANALYST) Anatomical Region Laterality Modality Pelvis Other Study GA Study Date Study CHERI Working CHERI (Source) W eight (Method) 2932 g (Hadlock 1983 (AC))2810 g (Hadlock 1984 ( AC, FL))2781 g (Rivera 1981 ( BPD, AC))2798 g (Hadlock 1983 ( HC, AC))2797 g (Hadlock 1984 ( BPD, AC, FL))2759 g (Hadlock 1984 ( HC, AC, FL))2771 g (Hadlock 1984 ( BPD, HC, AC, FL) ) Result Name Value Comments FHR 122.00 bpm GA by US Calc 247.00 days 247 FL/AC 21.40 % FL/BPD 77.71 % HC/AC 1.00 FL 6.87 cm 247 AC 32.11 cm 252 BPD 8.84 cm 250 HC 31.96 cm 252 YENNY 15.88 cm Specimen (Source) Anatomical Location Collection Method / Collectio n Time Received Time / Laterality Volume Impressions 04/29/2015 10:35 AM JUNIOR BUSINESS ANALYST IMPRESSION: Single living fetus with growth parameters as above Narrative 04/29/2015 10:35 AM JUNIOR BUSINESS ANALYST FINDINGS: ??A follow-up OB ultrasound wa s performed. ??Transabdominal ??imaging was performed. Type of Gestation: ??Holliday. Presentation: ??Vertex Movement Present: ??Yes Cardiac Rate: ??122 bpm and is regular 4-quadrant YENNY: 15.9 cm. Normal. Q1: 5.0 cm. Q2: 3.7 cm. Q3: 4.7 cm. Q4: 2.5 cm. Placental Position: Fundal. Normal. Cervix Length (cm): ??Was not seen LIMITED ANATOMIC SURVEY RESULTS: ? The limited anatomic survey includes ass essment of: ??Heart: 4 Chamber View, M- Mode, Bladder, Stomach, Kidneys. Measurements (Source Hadlock): BPD: ??8.8 cm = 35w5d HC: 32.0 cm = 36w0d AC: ??32.1 cm = 36w0d FL: ??6.9 cm = 35w2d Anatomic Ratios: ? Abdominal Circumference Percentile: 23 Estimated Weight: ??2771 grams Weight Percentile: 37 Other Findings: None. GA by LMP: ??37w2d GA by Prior US: ??37w3d GA by today's US: ??35w2d CHERI by today's US: ??06/01/2015 Procedure Note Vineet Montoya MD - 11/09/2015Format ting of this note might be different from the original. FINDINGS: A follow-up OB ultrasound was performed. Transabdominal imaging was performed. Type of Gestation: Holliday. Presentation: Vertex Movement Present: Yes Cardiac Rate: 122 bpm and is regular 4-quadrant YENNY: 15.9 cm. Normal. Q1: 5.0 cm. Q2: 3.7 cm. Q3: 4.7 cm. Q4: 2.5 cm. Placental Position: Fundal. Normal. Cervix Length (cm): Was not seen LIMITED ANATOMIC SURVEY RESULTS: The limited anatomic survey includes ass essment of: Heart: 4 Chamber View, M- Mode, Bladder, Stomach, Kidneys. Measurements (Source Hadlock): BPD: 8.8 cm = 35w5d HC: 32.0 cm = 36w0d AC: 32.1 cm = 36w0d FL: 6.9 cm = 35w2d Anatomic Ratios: Abdominal Circumference Percentile: 23 Estimated Weight: 2771 grams Weight Percentile: 37 Other Findings: None. GA by LMP: 37w2d GA by Prior US: 37w3d GA by today's US: 35w2d CHERI by today's US: 06/01/2015 IMPRESSION IMPRESSION: Single living fetus with vahid wth parameters as above Wanda Guallpa MD [facility] documented in this encounter Visit Diagnoses Diagnosis Bicornuate uterus affecting , a ntepartum, third trimester documented in this encounter Care Teams Band Ripsaw Operator Relationship Specialty Start Date End Date Md Lindquist MD PCP - General 08/25/10 07/05/16 [place] [address] documented as of this encounter
--- OUTSIDE RECORDS SUMMARY | 2022-04-25 22:35 | XMS_ITS | Encounter Summary ---
:1985 Author Organization [employer] Address [address] [place] [address] Care Team Providers Name Role Phone Md SOL Lindquist Primary Care Provider Reason for Visit Reason Comments Routine Visit Encounter Details Date Type Department Care Team Description 02/07/2015 Routine [place] 1515 Wanda Guallpa Routi ne Obstetrics/Gynecolog MD Visit y 1515 [facility] [address] [place] [facility] [place] [phone] Social History Tobacco Use Types Packs/Day Years Used Date Smoking Tobacco: Never Assessed Sex Assigned at Date Recorded Not on file documented as of this encounter Last Filed Vital Signs Vital Sign Reading Time Taken Comments Blood Pressure 104/70 02/07/2015 10:30 AM CDT Pulse - - Temperature - - Respiratory Rate - - Oxygen Saturation - - Inhaled Oxygen Concentration - - Weight 69.4 kg (153 lb) 02/07/2015 10:30 AM CDT Height - - Body Mass Index 23.26 11/18/2014 3:24 PM CDT documented in this encounter Progress Notes Wanda Guallpa MD - 02/07/2015 11:05 AM CDT VISIT Patient reports she was just treated for her 3rd UTI this . Has cough and congestion - advise Robitussin DM and saline spray. Diagnosis (ICD9) and Associated Orders ICD-9-CM ICD-10-CM 1. Bicornuate uterus affecting , antepartum, second trimester 654.03 O34.592 US OB Limited (Single or Twins) 752.34 2. Maternal renal lithiasis, current , second trimester 646.23 O26.832 592.0 3. Maternal urinary tract infection, recurrent, second trimester 646.63 O23.42 nitrofurantoin (MACRODANTIN) 100 mg capsule daily for suppression 599.0 Follow up: 4 weeks documented in this encounter Plan of Treatment Not on filedocumented as of this encounter Visit Diagnoses Diagnosis Bicornuate uterus affecting , a ntepartum, second trimester - Primary Maternal renal lithiasis, current pregna ncy, second trimester Maternal urinary tract infection, recurr ent, second trimester documented in this encounter Care Teams Air Bag Buffer Relationship Specialty Start Date End Date Md Lindquist MD PCP - General 08/25/10 07/05/16 [place] [address] documented as of this encounter
--- OUTSIDE RECORDS SUMMARY | 2022-04-25 22:35 | XMS_ITS | Encounter Summary ---
:1985 Author Organization [facility] Address [address] [place] [address] Care Team Providers Name Role Phone Md SOL Lindquist Primary Care Provider Reason for Visit Reason Comments LAB RESULTS Encounter Details Date Type Department Care Team Description 03/09/2015 Telephone [place] 1515 Wanda Guallpa MD LAB RESULTS Obstetrics/Gynecolog y [facility] [place] [facility] [address] [place] [address] [place] [phone] (Wo rk) Social History Tobacco Use Types Packs/Day Years Used Date Smoking Tobacco: Never Assessed Sex Assigned at Date Recorded Not on file documented as of this encounter Nursing Notes Arslan Dixon LPN - 03/10/2015 1:27 PM CDT Called pt, reviewed results and pt will call to schedule lab appointment. Wanda Guallpa MD - 03/09/2015 1:33 PM CDT Nurse to contact pt with the following information: Needs 2 hour GTT. I entered the order. documented in this encounter Plan of Treatment Not on filedocumented as of this encounter Visit Diagnoses Diagnosis Abnormal glucose complicating - Primary Abnormal maternal glucose tolerance, com plicating , childbirth, or the puerperium, unspecified as to episode of care documented in this encounter Care Teams Tire Recapper Relationship Specialty Start Date End Date Md Lindquist MD PCP - General 08/25/10 07/05/16 [place] [address] documented as of this encounter
--- OUTSIDE RECORDS SUMMARY | 2022-04-25 22:35 | XMS_ITS | Encounter Summary ---
:1985 Author Organization [employer] Address [address] [place] [address] Care Team Providers Name Role Phone Md SOL Lindquist Primary Care Provider Reason for Visit Reason Comments Routine Visit Encounter Details Date Type Department Care Team Description 05/05/2015 Routine [place] 1515 Wanda Guallpa Routi ne Obstetrics/Gynecolog MD Visit y 1515 [facility] [address] [place] [phone] Social History Tobacco Use Types Packs/Day Years Used Date Smoking Tobacco: Never Assessed Sex Assigned at Date Recorded Not on file documented as of this encounter Last Filed Vital Signs Vital Sign Reading Time Taken Comments Blood Pressure 112/80 05/05/2015 11:52 AM HORTICULTURAL FARMER Pulse - - Temperature - - Respiratory Rate - - Oxygen Saturation - - Inhaled Oxygen Concentration - - Weight 73.9 kg (163 lb) 05/05/2015 11:52 AM HORTICULTURAL FARMER Height - - Body Mass Index 24.78 11/18/2014 3:24 PM CDT documented in this encounter Progress Notes Wanda Guallpa MD - 05/05/2015 12:12 PM CST VISIT Patient reports pelvic pressure and contractions. Piper is name chosen for baby. Follow-up in 1 weeks ICULTURAL FARMER documented in this encounter Plan of Treatment Not on filedocumented as of this encounter Visit Diagnoses Diagnosis Bicornuate uterus affecting , a ntepartum, third trimester - Primary documented in this encounter Care Teams Management Specialist Relationship Specialty Start Date End Date Md Lindquist MD PCP - General 08/25/10 07/05/16 [place] [address] documented as of this encounter
--- OUTSIDE RECORDS SUMMARY | 2022-04-25 22:35 | XMS_ITS | Encounter Summary ---
:1985 Author Organization [employer] Address [address] [place] [address] Care Team Providers Name Role Phone Rosemarie Fuentes APRN, TAYLA Primary Care Provider Reason for Visit Reason Onset Date Comments RESULTS, TEST 07/07/2016 Encounter Details Date Type Department Care Team Description 07/07/2016 Telephone [facility] Rosemarie Fuentes APRN, RESULTS, TEST [facility] . P[place]ING [place] [address] 1415 [facility] [phone] [place], [place] [address] (Wo rk) Social History Tobacco Use Types Packs/Day Years Used Date Smoking Tobacco: Never Smokeless Tobacco: Never Alcohol Use Standard Drinks/Week Comments No 0 (1 standard drink = 0.6 oz pure alcoho l) none Sex Assigned at Date Recorded Not on file documented as of this encounter Nursing Notes Rosalinda Barakat LPN - 07/07/2016 3:21 PM CST Called and spoke with pt gave her the below message. 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 T METAL PRODUCTION WORKER Rosemarie Fuentes APRN, POUNCING MACHINE OPERATOR - 07/07/2016 3:18 PM CST Also, if nursing, would need to change Rx. Thanks. T METAL PRODUCTION WORKER Rosemarie Fuentes APRN, CNP - 07/07/2016 3:17 PM CST U/A shows quite a bit of bacteria and WBC's. Cipro Rx sent to pharmacy. Please have her follow-up ifworsening or not quickly improving in 2-3 days. Thanks. T METAL PRODUCTION WORKER documented in this encounter Plan of Treatment Not on filedocumented as of this encounter Visit Diagnoses Diagnosis Urinary tract infection, site unspecifie d - Primary documented in this encounter Care Teams Smeller Relationship Specialty Start Date End Date Rosemarie Fuentes APRN, CNP PCP - General Nurse Practitioner 07/06/16 06/18/18 [facility]15 [facility], [place] [address] documented as of this encounter
--- OUTSIDE RECORDS SUMMARY | 2022-04-25 22:35 | XMS_ITS | Encounter Summary ---
:1985 Author Organization [employer] Address [address] [place] [address] Care Team Providers Name Role Phone Md SOL Lindquist Primary Care Provider Reason for Visit Reason Comments Routine Visit Encounter Details Date Type Department Care Team Description 03/21/2015 Routine [place] 1515 Wanda Guallpa Routi ne Obstetrics/Gynecolog MD Visit y 1515 [facility] [address] [place] [phone] Social History Tobacco Use Types Packs/Day Years Used Date Smoking Tobacco: Never Assessed Sex Assigned at Date Recorded Not on file documented as of this encounter Last Filed Vital Signs Vital Sign Reading Time Taken Comments Blood Pressure 100/70 03/21/2015 11:21 AM CDT Pulse - - Temperature - - Respiratory Rate - - Oxygen Saturation - - Inhaled Oxygen Concentration - - Weight 70.2 kg (154 lb 12.8 oz) 03/21/2015 11:21 AM CDT Height - - Body Mass Index 23.54 11/18/2014 3:24 PM CDT documented in this encounter Progress Notes Wanda Guallpa MD - 03/24/2015 8:14 PM CST VISIT Patient reports shooting pain into pubic area, uterine tightening at work but not periodic contractions. On previous exams baby was always on the left side of her uterus. Now her uterus looks and feels heart shaped from the outside. Ultrasound shows baby is now vertex with body on left side of uterus and placenta fills most of the right side. 28-week labs reviewed, 2 hour GTT was normal. Follow-up in 2 weeks ING HOME ASSISTANT documented in this encounter Plan of Treatment Not on filedocumented as of this encounter Visit Diagnoses Diagnosis Bicornuate uterus affecting , a ntepartum, third trimester - Primary Need for Tdap vaccination Need for prophylactic vaccination with c ombined zbjsnnljzx-itiuolm-vhewhgfhu (DTP) vaccine Needs flu shot Need for prophylactic vaccination and in oculation against influenza documented in this encounter Care Teams Python Engineer Relationship Specialty Start Date End Date Md Lindquist MD PCP - General 08/25/10 07/05/16 [place] [address] documented as of this encounter
--- OUTSIDE RECORDS SUMMARY | 2022-04-25 22:35 | XMS_ITS | Encounter Summary ---
:1985 Author Organization [employer] Address [address] [place] [address] Care Team Providers Name Role Phone Md SOL Lindquist Primary Care Provider Encounter Details Date Type Department Care Team Description 06/30/2016 Lab Visit [facility] Dysuria 1415 [facility] [place] [address] Social History Tobacco Use Types Packs/Day Years [...] Name Priority Date/Time Associated Comments Diagnosis URINE MICROSCOPIC STAT 06/30/2016 12:58 Result s for this PM CHUCKING LATHE OPERATOR procedure are i n the results section. URINALYSIS ROUTINE, STAT 06/30/2016 12:58 Dysuria Resu lts for this MICRO/CULTURE IF POS PM CHUCKING LATHE OPERATOR procedu re are in the results section. URINE CULTURE STAT 06/30/2016 12:58 Results fo r this PM CHUCKING LATHE OPERATOR procedure are i n the results section. documented in this encounter Results (ABNORMAL) Urine Microscopic (06/30/2016 12:58 PM CHUCKING LATHE OPERATOR) Analysis Performed At Patho logist Time Signature Urine WBC >100 (H) 0 - 4 /HPF PN SOFT Urine RBC 0-2 0 - 2 /HPF PN SOFT Bacteria Urine Many (A) /HPF PN SOFT Epithelial Few /HPF PN SOFT Cells Specimen (Source) Anatomical Collection Method Collection Time Re ceived Time Location / / Volume Laterality Urine: 06/30/2016 12:58 PM CHUCKING LATHE OPERATOR Narrative PN SOFT - 06/30/2016 1:04 PM CHUCKING LATHE OPERATOR Performed at [address] [address] CLIA number [id number] Rosemarie Fuentes APRN, PERMANENT MOLD SUPERVISOR LAB_1 Performing Organization Address [facility] Phon e Number PN SOFT [address] [place] [address] (ABNORMAL) Urine Culture (06/30/2016 12:58 PM CHUCKING LATHE OPERATOR) [facility] Method Time Signature Source Urine PN SOFT Site PN SOFT Urine Culture > 100,000 col/ml PN SOFT Multiple Bacterial Morphologies (A) Specimen (Source) Anatomical Collection Method Collection Time Re ceived Time Location / / Volume Laterality Urine: 06/30/2016 12:58 PM CHUCKING LATHE OPERATOR Narrative PN SOFT - 07/01/2016 6:59 PM CHUCKING LATHE OPERATOR Performed at [address] [address], CLIA Number [id number] Rosemarie Fuentes APRN, PERMANENT MOLD SUPERVISOR LAB_1 Performing Organization Address [facility] Phon e Number PN SOFT [address] [place] [address] (ABNORMAL) Urinalysis Routine, Micro/Culture if Pos (06/30/2016 12:58 PM CHUCKING LATHE OPERATOR) [facility] Method Time Signature Urine Type URINE:clean PN SOFT cat Turbidity Clear Clear PN SOFT U BILI Negative Negative PN SOFT Blood Urine Trace Neg - Trace PN SOFT Glucose, Negative Neg-30 mg/dL PN SOFT Qualitative U Ketones Negative Negative PN SOFT Leukocyte Large (A) Negative PN SOFT Esterase Urine Nitrite Urine Positive (A) Negative PN SOFT Comment: Urine culture has been ordered per reflex protocol. pH Urine 5.5 5.0 - 8.0 PN SOFT Protein Urine Negative Neg - Trace mg/dL PN SOFT U Specific [place] 1.020 1.005 - 1.030 PN SOFT Urobilinogen Urine Negative Negative Eu/dL PN SOF T Specimen (Source) Anatomical Collection Method Collection Time Re ceived Time Location / / Volume Laterality Urine: 06/30/2016 12:58 PM CHUCKING LATHE OPERATOR Narrative PN SOFT - 06/30/2016 12:52 PM CHUCKING LATHE OPERATOR Performed at [facility], [address] [place] [address] CLIA number [id number] Rosemarie Fuentes APRN, TAYLA LAB_1 Performing Organization Address City/State/ZIP Code Phon e Number PN SOFT [address] [place] [address] [phone] documented in this encounter Visit Diagnoses Diagnosis Dysuria documented in this encounter Care Teams Maintenance Porter Relationship Specialty Start Date End Date Md Lindquist MD PCP - General 08/25/10 07/05/16 [place] [address] documented as of this encounter
--- OUTSIDE RECORDS SUMMARY | 2022-04-25 22:35 | XMS_ITS | Encounter Summary ---
:1985 Author Organization [email or web address] Address [address], [place] [address] Care Team Providers Name Role Phone Md SOL Lindquist Primary Care Provider Reason for Visit Reason Comments Concerns Encounter Details Date Type Department Care Team Description 04/24/2015 Nurse Triage [place] [id number] Wanda Montoya, Concerns Obstetrics/Gynecolog y RN [address] [facility] [place] [address] Social History Tobacco Use Types Packs/Day Years Used Date Smoking Tobacco: Never Assessed Sex Assigned at Date Recorded Not on file documented as of this encounter Nursing Notes Wanda Montoya, RN - 04/24/2015 2:49 PM CST Protocol: - ABDOMINAL PAIN GREATER THAN 20 WEEKS REG-YOGMH-AN Affirmative: MILD abdominal pain (all triage questions negative) Disposition of Home Care suggested. Patient called. . 36 w 4 d. C/O sharp knife like pain in vaginal/pelvic region. Intermittent. More with movement. Has had it in the past but more today. Has had irregular contractions; nothing regular. Denies vaginal bleeding or leakage of fluid; says she has had increased vaginal fluid and had ittested and it was not fluid. H/O bicornate uterus. Advised to call if vaginal bleeding, leakage of fluid or regular contractions. Advised she could take a warm bath, get off her feet, rest, Tylenol prn. Routed to Dr. Guallpa. Only need to advise if other directives. US INTERVIEWS INTERN documented in this encounter Plan of Treatment Not on filedocumented as of this encounter Visit Diagnoses Not on filedocumented in this encounter Care Teams Cylinder Press Operator Relationship Specialty Start Date End Date Md Lexa, MD PCP - General 08/25/10 07/05/16 [place] [address] documented as of this encounter
--- OUTSIDE RECORDS SUMMARY | 2022-04-25 22:35 | XMS_ITS | Encounter Summary ---
:1985 Author Organization [email or web address] Address [address] [place] [address] Care Team Providers Name Role Phone Md SOL Lindquist Primary Care Provider Encounter Details Date Type Department Care Team Description 01/20/2015 Notes/Orders [place] [address]15 Wanda Guallpa MD Obstetrics/Gynecolog y 15[address] [facility] [place] [facility] [facility] 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 A F/U ultrasound to reassess growth will be scheduled at 28-30 weeks gestation. documented in this encounter Plan of Treatment Not on filedocumented as of this encounter Visit Diagnoses Not on filedocumented in this encounter Care Teams Rubber Chemist Relationship Specialty Start Date End Date Md Lindquist MD PCP - General 08/25/10 07/05/16 [place] [address] documented as of this encounter
--- OUTSIDE RECORDS SUMMARY | 2022-04-25 22:35 | XMS_ITS | Encounter Summary ---
:1985 Author Organization [employer] Address [address] [place] [address] Care Team Providers Name Role Phone Md SOL Lindquist Primary Care Provider Encounter Details Date Type Department Care Team Description 12/23/2014 Notes/Orders [place] 1515 Wanda Guallpa KEZIA (iron deficiency Obstetrics/Gynecolog y MD anemia) (Primary Dx) [address] [place] [address] [address] [place] [address] [place] [address] Social History Tobacco Use Types Packs/Day Years Used Date Smoking Tobacco: Never Assessed Sex Assigned at Date Recorded Not on file documented as of this encounter Progress Notes Wanda Guallpa MD - 12/23/2014 12:19 PM CDT Impression : 1) Intrauterine at 18 2/7 weeks gestational age 2) No gross anatomic defects detected on the anatomic survey described above. 3) Growth parameters and estimated weight were consistent with an appropriate for gestation age pattern of growth. 4) The amniotic fluid volume appeared normal. 5) Normal cervical length 6) No markers for aneuploidy seen Placenta appears to be in the right horn, and fetus in the left horn. 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 Tomy Parmar MD <Electronic Signature> 12/17/2014 03:15pm documented in this encounter Plan of Treatment Not on filedocumented as of this encounter Visit Diagnoses Diagnosis KEZIA (iron deficiency anemia) - Primary Iron deficiency anemia, unspecified documented in this encounter Care Teams Gauge Operator Relationship Specialty Start Date End Date Md Lindquist MD PCP - General 08/25/10 07/05/16 [place] [address] documented as of this encounter
--- OUTSIDE RECORDS SUMMARY | 2022-04-25 22:35 | XMS_ITS | Encounter Summary ---
:1985 Author Organization [employer] Address [address] [place] [address] Care Team Providers Name Role Phone Md SOL Lindquist Primary Care Provider Reason for Visit Reason Comments Routine Visit Encounter Details Date Type Department Care Team Description 04/04/2015 Routine [place] 1515 Wanda Guallpa Routi ne Obstetrics/Gynecolog MD Visit y 1515 [facility] [address] [place] [address] [place] [phone] Social History Tobacco Use Types Packs/Day Years Used Date Smoking Tobacco: Never Assessed Sex Assigned at Date Recorded Not on file documented as of this encounter Last Filed Vital Signs Vital Sign Reading Time Taken Comments Blood Pressure 100/72 04/04/2015 1:20 PM MUTUAL FUND MANAGER Pulse - - Temperature - - Respiratory Rate - - Oxygen Saturation - - Inhaled Oxygen Concentration - - Weight 73 kg (161 lb) 04/04/2015 1:20 PM MUTUAL FUND MANAGER Height - - Body Mass Index 24.48 11/18/2014 3:24 PM CDT documented in this encounter Progress Notes India Villar LPN - 04/04/2015 2:02 PM MUTUAL FUND MANAGER Addended by: INDIA VILLAR on: 04/04/2015 02:02 PM Modules accepted: Orders AL FUND MANAGER Wanda Guallpa MD - 04/04/2015 1:49 PM CST VISIT Patient reports no leaking, occasional contractions, backache. Pain in hips. Try maternity band. Follow-up in 2 weeks. AL FUND MANAGER documented in this encounter Plan of Treatment Not on filedocumented as of this encounter Visit Diagnoses Diagnosis Bicornuate uterus affecting , a ntepartum, third trimester - Primary Bilateral low back pain, with sciatica p resence unspecified (HRC) documented in this encounter Care Teams Preschool Lead Teacher Relationship Specialty Start Date End Date Md Lindquist MD PCP - General 08/25/10 07/05/16 [place] [address] documented as of this encounter
--- OUTSIDE RECORDS SUMMARY | 2022-04-25 22:35 | XMS_ITS | Encounter Summary ---
:1985 Author Organization [employer] Address [address] [place] [address] Care Team Providers Name Role Phone Md SOL Lindquist Primary Care Provider Reason for Visit Reason Comments Follow-up Encounter Details Date Type Department Care Team Description 06/19/2015 Office Visit [place] 1515 Wanda Guallpa, Insertion of Obstetrics/Gynecolog y implantable subdermal [address] [place] contraceptive (Primary [place] [address]) [phone] [place] [phone] Social History Tobacco Use Types Packs/Day Years Used Date Smoking Tobacco: Never Assessed Sex Assigned at Date Recorded Not on file documented as of this encounter Last Filed Vital Signs Vital Sign Reading Time Taken Comments Blood Pressure 112/70 06/19/2015 1:52 PM CLINICAL TRIAL ASSISTANT Pulse - - Temperature - - Respiratory Rate - - Oxygen Saturation - - Inhaled Oxygen Concentration - - Weight 64.6 kg (142 lb 8 oz) 06/19/2015 1:52 PM CLINICAL TRIAL ASSISTANT Height - - Body Mass Index 21.67 11/18/2014 3:24 PM CDT documented in this encounter Progress Notes Wanda Guallpa MD - 06/19/2015 2:54 PM CST Examination - Vaginal Delivery Date of encounter: 06/19/2015 Age//Para: 30 y.o. course: Complications: bicornuate uterus, UTI See copy of the record in the scanned documents. Delivery: Date: 05/08/15 Gestational age: 38 weeks, 4 days Type of delivery: Vaginal Laceration: 2nd degree Gender: girl Weight: 6 pounds, 3 ounces Recovery: Patient has had appropriate resolution of lochia. They have not yet had intercourse. Patient is feeding formula. She has no concerns about the breasts. Objective: Filed Vitals: 06/19/15 1352 BP: 112/70 Weight: 142 lb 8 oz (64.638 kg) She is alert and oriented and in no distress. The abdomen is soft and nondistended. There are no palpable masses or organ enlargement. On pelvic exam the vulva and vagina are of normal appearance and well healed. The cervix is of normal appearance. On bimanual examination the uterus is smooth in contour and is involuted to nonsize. There are no adnexal masses. [place] Depression Score = 2 Impression: exam. Plan: Patient is free to resume all activities as she feels ready for them. We discussed options forcontraception. She desires Nexplanon. 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 Pap smear: due in 2018 Wanda Guallpa M.D. Department of Obstetrics and Gynecology *SH~DNS~PP PROCEDURE: Implanon insertion PROCEDURE: Procedure was reviewed with the patient and she wished to proceed. Consent form signed and pause for the cause was done. Risk of insertion include bleeding and infection. Patient is placed in supine position with the left arm placed beside head. The groove between the biceps and triceps muscles palpated in the upper arm. This area was cleansed x3 with Betadine. The planned insertion site was then was then injected with 1% lidocaine for 2 cc. The Nexplanon was then opened sterilely. The Nexplanon needle cap was then removed. The nexplanon implant was visualized inside the needle. The skinwas then stretched with the thumb and forefinger to make the skin taut. Nexplanon was inserted in the subdermal plane. The skin was tented up and the needle was advanced to ensure subdermal placement. After insertion, the Nexplanon was released. I was able to palpate the Nexplanon and the patient was also able to palpate the Nexplanon. Sterile dressing was placed. Compression bandage also placed. Patient tolerated procedure well. ASSESSMENT: 30 y.o. with Nexplanon insertion PLAN: Nexplanon inserted without difficulty as described above. Nexplanon removal in 3 years. Follow-up as needed. All questions answered. ICAL TRIAL ASSISTANT documented in this encounter Plan of Treatment Not on filedocumented as of this encounter Visit Diagnoses Diagnosis Insertion of implantable subdermal contr aceptive - Primary documented in this encounter Care Teams Pediatric Ophthalmologist Relationship Specialty Start Date End Date Md Lindquist MD PCP - General 08/25/10 07/05/16 [place] [address] documented as of this encounter
--- OUTSIDE RECORDS SUMMARY | 2022-04-25 22:35 | XMS_ITS | Encounter Summary ---
:1985 Author Organization [facility] Address [address], [place] [address] Care Team Providers Name Role Phone Md SOL Lindquist Primary Care Provider Encounter Details Date Type Department Care Team Description 12/25/2014 Notes/Orders [facility] Natanael Hurd M D KEZIA (iron deficiency [facility]) (Primary Dx) [facility] [address] [place] [address] [phone] Social History Tobacco Use Types Packs/Day Years Used Date Smoking Tobacco: Never Assessed Sex Assigned at Date Recorded Not on file documented as of this encounter Plan of Treatment Not on filedocumented as of this encounter Visit Diagnoses Diagnosis KEZIA (iron deficiency anemia) - Primary Iron deficiency anemia, unspecified documented in this encounter Care Teams Heat Treat Worker Relationship Specialty Start Date End Date Md Lindquist MD PCP - General 08/25/10 07/05/16 [place], [place] [address]1786 documented as of this encounter
--- OUTSIDE RECORDS SUMMARY | 2022-04-25 22:35 | XMS_ITS | Encounter Summary ---
:1985 Author Organization [facility] Address [address] [place] [address] Care Team Providers Name Role Phone Md SOL Lindquist Primary Care Provider Reason for Visit Reason Comments Missed Appointment Encounter Details Date Type Department Care Team Description 12/26/2014 Telephone [facility] Cancer Ruby Hurd MD Missed Appointment Care at [address] 8[address]807 [phone] Social History Tobacco Use Types Packs/Day Years Used Date Smoking Tobacco: Never Assessed Sex Assigned at Date Recorded Not on file documented as of this encounter Plan of Treatment Not on filedocumented as of this encounter Visit Diagnoses Not on filedocumented in this encounter Care Teams Drums Teacher Relationship Specialty Start Date End Date Md Lindquist MD PCP - General 08/25/10 07/05/16 [place] [address] documented as of this encounter
--- OUTSIDE RECORDS SUMMARY | 2022-04-25 22:35 | XMS_ITS | Encounter Summary ---
:1985 Author Organization [employer] Address [address] [place] [address] Care Team Providers Name Role Phone Rosemarie Fuentes APRN, TALYA Primary Care Provider [phone] Encounter Details Date Type Department Care Team Description 07/07/2016 Lab Visit [facility] Dysuria 1415 [facility] . [place] [address] Social History Tobacco Use Types Packs/Day Years [...] Priority Date/Time Associated Comments Diagnosis URINE MICROSCOPIC Routine 07/07/2016 3:09 PM Resu lts for this EPIC WILLOW SPECIALIST procedure are i n the results section. URINALYSIS ROUTINE, Routine 07/07/2016 3:09 PM Dysuria Re sults for this MICRO/CULTURE IF POS EPIC WILLOW SPECIALIST procedu re are in the results section. URINE CULTURE Routine 07/07/2016 3:09 PM Results for this EPIC WILLOW SPECIALIST procedure are i n the results section. documented in this encounter Results (ABNORMAL) Urine Microscopic (07/07/2016 3:09 PM EPIC WILLOW SPECIALIST) Analysis Performed At Patho logist Time Signature Urine WBC 50-99 (A) 0 - 4 /HPF PN SOFT Urine RBC 10-24 (A) 0 - 2 /HPF PN SOFT Bacteria Urine TNTC (A) /HPF PN SOFT Comment: Urine culture has been ordered per reflex protocol. Epithelial Cells Moderate /HPF PN SOFT Specimen (Source) Anatomical Collection Method Collection Time Re ceived Time Location / / Volume Laterality Urine: 07/07/2016 3:09 PM EPIC WILLOW SPECIALIST Narrative PN SOFT - 07/07/2016 3:16 PM EPIC WILLOW SPECIALIST Performed at [facility], [address] [place] [address] CLIA number [id number] Rosemarie Fuentes HEALTH/SAFETY JOB TITLES, CLINICAL PRODUCT MANAGER LAB_1 Performing Organization Address City/State/ZIP Code Phon e Number PN SOFT [address] [place] [address] (ABNORMAL) Urine Culture (07/07/2016 3:09 PM EPIC WILLOW SPECIALIST) [facility] gist Method Time Signature Source Urine PN SOFT Site PN SOFT Urine Culture > 100,000 col/ml Escherichia coli PN SOFT Do not treat asymptomatic bacteriuria in adults per IDSA ?... http://www.idsociety.org/Organ_System/#AsymptomaticBacteriur ia (A) Urine Culture Escherichia coli PN SOFT > 100,000 col/ml (A) Specimen (Source) Anatomical Collection Method Collection Time Re ceived Time Location / / Volume Laterality Urine: 07/07/2016 3:09 PM EPIC WILLOW SPECIALIST Narrative PN SOFT - 07/09/2016 12:00 PM EPIC WILLOW SPECIALIST Performed at [facility], [address] [place] [address], [place] [address], CLIA Number [id number] Organism Antibiotic Method Susceptibility Escherichia coli Amikacin MURRAY SENSITIVITY 16 mcg/mL: Sens itive Escherichia coli Ampicillin/Sulbactam MURRAY SENSITIVITY 4 mcg/mL: Sensitive Escherichia coli Cefazolin MURRAY SENSITIVITY <=4 mcg/mL: Sen sitive Comment: Isolates susceptible to Cefa zolin are also susceptible to Cephadroxil and Cephalexin. Escherichia coli Ciprofloxacin MURRAY SENSITIVITY <=0.25 mcg/mL: Sensitive Escherichia coli Ertapenem MURRAY SENSITIVITY <=0.5 mcg/mL: S ensitive Escherichia coli Imipenem MURRAY SENSITIVITY <=0.25 mcg/mL: Sensitive Escherichia coli Levofloxacin MURRAY SENSITIVITY <=0.12 mcg/mL: Sensitive Escherichia coli Meropenem MURRAY SENSITIVITY <=0.25 mcg/mL: Sensitive Escherichia coli Nitrofurantoin MURRAY SENSITIVITY >=512 mcg/mL: R esistant Comment: Limited to use in lower urin loida tract infections. Do not use in patients with Creatin ine Clearance less than 60 ml/min. Escherichia coli Piperacillin/Tazobactam MURRAY SENSITIVITY <=4 mcg /mL: Sensitive Escherichia coli Tobramycin MURRAY SENSITIVITY 2 mcg/mL: Sensi tive Escherichia coli Trimethoprim/Sulfamethoxazole MURRAY SENSITIVITY < =20 mcg/mL: Sensitive Rosemarie Fuentes APRN, CNP LAB_1 Performing Organization Address [facility] Phon e Number PN SOFT [address] [place] [address] (ABNORMAL) Urinalysis Routine, Micro/Culture if Pos (07/07/2016 3:09 PM EPIC WILLOW SPECIALIST) [facility] Method Time Signature Urine Type URINE:clean [...] U Specific 1.020 1.005 - PN SOFT [place] 1.030 Urobilinogen Negative Negative PN SOFT Urine Eu/dL Specimen (Source) Anatomical Collection Method Collection Time Re ceived Time Location / / Volume Laterality Urine: 07/07/2016 3:09 PM EPIC WILLOW SPECIALIST Narrative PN SOFT - 07/07/2016 3:10 PM EPIC WILLOW SPECIALIST Performed at [address] [address] CLIA number [id number] Rosemarie Fuentes APRN, CNP LAB_1 Performing Organization Address [facility] Phon e Number PN SOFT [address] [place] [address] documented in this encounter Visit Diagnoses Diagnosis Dysuria documented in this encounter Care Teams Continuous Mining Machine Company Miner Relationship Specialty Start Date End Date Rosemarie Fuentes APRN, CNP PCP - General Nurse Practitioner 07/06/16 06/18/[address] [place] [address] documented as of this encounter
--- OUTSIDE RECORDS SUMMARY | 2022-04-25 22:35 | XMS_ITS | Encounter Summary ---
:1985 Author Organization [facility] Address [address] [place] [address] Care Team Providers Name Role Phone Md SOL Lindquist Primary Care Provider Encounter Details Date Type Department Care Team Description 03/07/2015 Lab Visit [facility] Screening for diabetes [facility]; [address] [facility] . Screening for iron deficienc y anemia [place] [address] Social History Tobacco Use Types Packs/Day Years Used Date Smoking Tobacco: Never Assessed Sex Assigned at Date Recorded Not on file documented as of this encounter Plan of Treatment Not on filedocumented as of this encounter Procedures Procedure Name Priority Date/Time Associated Diagnosis Comme nts HEMOGLOBIN, BLOOD Routine 03/07/2015 2:15 PM Screening for iro n Results for this CDT deficiency anemia procedure are in the results section. GLUCOSE - 1 HR. Routine 03/07/2015 2:15 PM Screening for Resul ts for this P.C. PREG CDT diabetes mellitus procedure are in the results section. documented in this encounter Results (ABNORMAL) Hemoglobin, Blood (03/07/2015 2:15 PM CDT) athologist Signature Hemoglobin 9.7 (L) 11.8 - 15.5 HP CONVERSION g/dL Specimen Anatomical Collection Method Collection Time Receive d Time (Source) Location / / Volume Laterality 03/07/2015 2:15 PM 5 2:15 CDT PM CDT Narrative HP CONVERSION - 03/07/2015 2:38 PM CDT Performed at [facility], [address] [place] [address] CLIA number [id number] Wanda Guallpa MD LAB_1 Performing Organization Address City/[facility] Phon e Number HP CONVERSION (ABNORMAL) Glucose - 1 Hr. P.C. Preg (03/07/2015 2:15 PM CDT) P athologist Signature Glucose 168 (H) 50 - 134 HP CONVERSION [place] mg/dL Screen Specimen Anatomical Collection Method Collection Time Receive d Time (Source) Location / / Volume Laterality 03/07/2015 2:15 PM 5 5:45 CDT PM CDT Narrative HP CONVERSION - 03/07/2015 6:08 PM CDT Performed at [facility], [address] [place] [address] CLIA number [id number] Wanda Guallpa MD LAB_1 Performing Organization Address [facility] Phon e Number HP CONVERSION documented in this encounter Visit Diagnoses Diagnosis Screening for diabetes mellitus Screening for iron deficiency anemia documented in this encounter Care Teams Radiosonde Operator Relationship Specialty Start Date End Date Md Lindquist MD PCP - General 08/25/10 07/05/16 [place] [address] documented as of this encounter
--- OUTSIDE RECORDS SUMMARY | 2022-04-25 22:35 | XMS_ITS | Encounter Summary ---
:1985 Author Organization [facility] Address [address] [place] [address] Care Team Providers Name Role Phone Md SOL Lindquist Primary Care Provider Reason for Visit Reason Comments Smelly Urine Encounter Details Date Type Department Care Team Description 06/30/2016 Office Visit Rosemarie Silva, Urinary tract infection, site unspecified (Primary Dx); Medicine TAYLA HOLBROOK Dysuria [address] [place] [address] Ave [phone] [place], [place] [address] Social History Tobacco Use Types Packs/Day Years Used Date Smoking Tobacco: Never Smokeless Tobacco: Never Alcohol Use Standard Drinks/Week Comments No 0 (1 standard drink = 0.6 oz pure alcoho l) none Sex Assigned at Date Recorded Not on file documented as of this encounter Last Filed Vital Signs Vital Sign Reading Time Taken Comments Blood Pressure 111/80 06/30/2016 1:06 PM COATING MACHINE FEEDER Pulse 90 06/30/2016 1:06 PM COATING MACHINE FEEDER Temperature - - Respiratory Rate - - Oxygen Saturation - - Inhaled Oxygen Concentration - - Weight 63 kg (139 lb) 06/30/2016 1:06 PM COATING MACHINE FEEDER Height - - Body Mass Index 21.13 11/18/2014 3:24 PM CDT documented in this encounter Progress Notes Rosemarie Fuentes, TAYLA HOLBROOK - 06/30/2016 1:08 PM CST Subjective: Chief Complaint Patient presents with ??? Smelly Urine Estefania Mckeon is a 31 y.o. woman who presents with dysuria and malodorous urine for the past fewdays. Hx of recurrent UTI during last year. Urine cultures did not show any resistance to antibiotics. No fevers. No gross hematuria or back pain. No vaginal discharge or pelvic pain. No concern for STDs. OTC treatments: none. Medical History Review: Patient's medications, allergies, past medical, surgical and problem lists along with social and family histories were updated, reviewed and reconciled as needed in the EMR. Review of Systems Pertinent ROS as listed in HPI. Objective: GEN: Well Appearing, NAD. Filed Vitals: 06/30/16 1306 BP: 111/80 Pulse: 90 Weight: 139 lb (63.05 kg) CHEST: Lungs are clear to auscultation bilaterally, no crackles or wheezes, good air exchange. CVS: RRR, no murmurs, strong heart sounds and pulses, no JVD, no carotid bruits. ABD: Normoactive bowel sounds, soft, nontender, no masses, no organomegaly. No CVA tenderness, guarding, or rebound. Lab Visit on 06/30/2016 Component Date Value Ref Range Status ??? Urine Type 06/30/2016 URINE:clean cat Final ??? Turbidity 06/30/2016 Clear Clear Final ??? U BILI 06/30/2016 Negative Negative Final ??? Blood Urine 06/30/2016 Trace Neg - Trace Final ??? Glucose, Qualitative U 06/30/2016 Negative Neg-30 mg/dL Final ??? Ketones 06/30/2016 Negative Negative Final ??? Leukocyte Esterase Urine 06/30/2016 Large* Negative Final ??? Nitrite Urine 06/30/2016 Positive* Negative Final Urine culture has been ordered per reflex protocol. ??? pH Urine 06/30/2016 5.5 5.0-8.0 Final ??? Protein Urine 06/30/2016 Negative Neg - Trace mg/dL Final ??? U Specific [place] 06/30/2016 1.020 1.005 - 1.030 Final ??? Urobilinogen Urine 06/30/2016 Negative Negative Eu/dL Final ? ? Urine WBC 06/30/2016 >100* 0 - 4 /HPF Final ??? Urine RBC 06/30/2016 0-2 0 - 2 /HPF Final ??? Bacteria Urine 06/30/2016 Many* Final ??? Epithelial Cells 06/30/2016 Few Final Assessment: ICD-10-CM 1. Urinary tract infection, site unspecified N39.0 nitrofurantoin monohydrate macrocrystal (MACROBID) 100 MG capsule 2. Dysuria R30.0 Urinalysis Routine, Micro/Culture if Pos Plan: 1. U/A consistent with UTI. Macrobid as prescribed. Culture pending. Discussed preventative measures. Increase fluids. RTC if symptoms worsen or do not gradually improve. ING MACHINE FEEDER documented in this encounter Plan of Treatment Not on filedocumented as of this encounter Results (ABNORMAL) Urinalysis Routine, Micro/Culture if Pos (06/30/2016 12:58 PM COATING MACHINE FEEDER) [facility] Method Time Signature Urine Type URINE:clean PN [...] - Trace mg/dL PN SOFT U Specific [place] 1.020 1.005 - 1.030 PN SOFT Urobilinogen Urine Negative Negative Eu/dL PN SOF T Specimen (Source) Anatomical Collection Method Collection Time Re ceived Time Location / / Volume Laterality Urine: 06/30/2016 12:58 PM COATING MACHINE FEEDER Narrative PN SOFT - 06/30/2016 12:52 PM COATING MACHINE FEEDER Performed at [facility], [address] [place] [id number] CLIA number [id number] Rosemarie Fuentes APRN, BLIND INSTALLER LAB_1 Performing Organization Address City/State/ZIP Code Phon e Number PN SOFT [address] [place] [address] documented in this encounter Visit Diagnoses Diagnosis Urinary tract infection, site unspecifie d - Primary Dysuria Dysuria documented in this encounter Care Teams Sawdust Drier Relationship Specialty Start Date End Date Md Lexa, PCP - General 08/25/10 07/05/16 [place] [address] documented as of this encounter
--- OUTSIDE RECORDS SUMMARY | 2022-04-25 22:35 | XMS_ITS | Encounter Summary ---
:1985 Author Organization [employer] Address [address] [place] [address] Care Team Providers Name Role Phone Md SOL Lindquist Primary Care Provider Reason for Visit Reason Comments Rupture Of Membranes Encounter Details Date Type Department Care Team Description 04/14/2015 Nurse Triage Jan Nurse Line Md Lexa, Rupture Of Membranes [address] [place] [address] [place], [place] [phone] Social History Tobacco Use Types Packs/Day Years Used Date Smoking Tobacco: Never Assessed Sex Assigned at Date Recorded Not on file documented as of this encounter Nursing Notes Layne Garcia - 04/14/2015 8:11 PM CST Protocol: - RUPTURE OF [id number] Affirmative: Leakage of fluid from vagina Disposition of Go To LD Now suggested. Patient calling, she is 35w1d with her first. She felt a few small gushes and she is not sure if it is water or urine. She has hx of bicornate uterus. Denies any bleeding or decreased movement. She has been having some russ dupree contractions, but nothing regular or very painful. 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 She will go innow. Called L&D and let them know she's on her way in. E WORKER documented in this encounter Plan of Treatment Not on filedocumented as of this encounter Visit Diagnoses Not on filedocumented in this encounter Care Teams Cap Jewel Plate Assembler Relationship Specialty Start Date End Date Md Lindquist MD PCP - General 08/25/10 07/05/16 [place] [address] documented as of this encounter
--- OUTSIDE RECORDS SUMMARY | 2022-04-25 22:36 | XMS_ITS | Encounter Summary ---
:1985 Author Organization [facility] Address [address] [place] [address] Care Team Providers Name Role Phone Md SOL Lindquist Primary Care Provider Encounter Details Date Type Department Care Team Description 07/28/2010 Office Visit Delia 1515 Wanda Guallpa MD Obstetrics/Gynecolog y [address] [facility] [place] [address] [facility] . [address] [place] [address] [place] [address] [phone] (Wo rk) Social History Tobacco Use Types Packs/Day Years Used Date Smoking Tobacco: Never Assessed Sex Assigned at Date Recorded Not on file documented as of this encounter Last Filed Vital Signs Vital Sign Reading Time Taken Comments Blood Pressure 118/70 07/28/2010 11:11 AM ENTERTAINMENT MUSICIAN Pulse - - Temperature - - Respiratory Rate - - Oxygen Saturation - - Inhaled Oxygen Concentration - - Weight 62.1 kg (136 lb 15.9 oz) 07/28/2010 11:11 AM C: 62.1kg ENTERTAINMENT MUSICIAN Height 175.3 cm (5' 9) 07/28/2010 11:11 AM C: 175.3cm ENTERTAINMENT MUSICIAN Body Mass Index 20.23 07/28/2010 11:11 AM ENTERTAINMENT MUSICIAN documented in this encounter Progress Notes Wanda Guallpa MD - 07/28/2010 12:01 AM CST Gynecology Well Exam and Preventive Care VIsit Name: Estefania Mckeon Age//Para : 25-year-old zero LMP : 07/05/2010 Gynecologic concerns Patient would let to get on a method of contraception that would also help with the cramps that are disabling on the first day of her cycle. Patient states she had been on NuvaRing but after a while found to be uncomfortable. She also has had some intermittent discomfort on the left side that comes and goes at any time of the cycle. She does have problems with constipation. Menses : For the most part they are monthly with 4-5 days of flow. She has significant cramps and first aid to cause her to stay home from work or activities. Contraceptive method : Condoms. 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 She is single. She has had 2 sexual partners in the last year. Substance use: Tobacco: nonsmoker Alcohol: Once a week Street drugs or prescription drug abuse: none Exercise : None Diet: No supplementation of calcium and vitamin D her multivitamins. Safety: Patient wears her seatbelt. She feel safe in her home. She does not do self breast exams. She doesn't use sunscreen. Obstetrical History/Gynecology history: Dysmenorrhea. Non-gynecologic surgical history/Past medical history: Appendectomy. Kidney stones. Anemia. Family History: (1st degree relatives). Father has diabetes, hyperlipidemia and hypertension. Mother had hyperlipidemia and hypertension. Medications: None Drug allergies: Amoxicillin Latex allergy: none Review of Systems: Other than issues discussed under concerns, complete review of systems is normal. Objective: Height in inches: 69 Weight in pounds: 137 BMI: 20.2 Blood Pressure: 118/70 General: Patient is alert and oriented. She has appropriate mood and affect. She is in no distress. Neck:Supple, without masses, lymphadenopathy or tenderness. 7Respiratory: Normal respiratory effort. Lungs are clear. Heart:RR without murmurs Breasts: normal to inspection and palpation Abdomen:The abdomen is soft and nontender. It is without masses or organ enlargement. Pelvic:No external lesions.Normal vagina and cervix with healthy appearing mucosa and no lesions.Pap smear was obtained. Chlamydia test obtained. Uterus: Normal size and contour Adenexa: Nontender without palpable mass. Impression: Annual gynecologic examination and preventative care visit. Dysmenorrhea. Initiation of oral contraceptives. Chlamydia screen. Plan: Pap smear was obtained today and results will be mailed to the patient. Tdap: Patient to check her records Chlamydia screen done. Alesse prescribed. This should give her improved protection against . Encouraged her to still use condoms for STD protection. Expect this will also eliminate or significantly improve her dysmenorrhea. Wanda Guallpa M.D. Department of Obstetrics and Gynecology *SH~DNS~GWE RTAINMENT MUSICIAN documented in this encounter Plan of Treatment Not on filedocumented as of this encounter Visit Diagnoses Not on filedocumented in this encounter Care Teams Photostat Operator Relationship Specialty Start Date End Date Md Lexa, PCP - General 08/25/10 07/05/16 [place] [address] documented as of this encounter
--- OUTSIDE RECORDS SUMMARY | 2022-04-25 22:36 | XMS_ITS | Encounter Summary ---
:1985 Author Organization [facility] Address [address] [place] [address] Care Team Providers Name Role Phone Md SOL Lindquist Primary Care Provider Encounter Details Date Type Department Care Team Description 12/03/2014 Imaging Solomon Maternal Bico rnuate uterus affecting Medicine , antepartum, [address] unspecified trimester [place] [address] Social History Tobacco Use Types Packs/Day Years Used Date Smoking Tobacco: Never Assessed Sex Assigned at Date Recorded Not on file documented as of this encounter Plan of Treatment Not on filedocumented as of this encounter Procedures Procedure Name Priority Date/Time Associated Diagnosis Comme nts [facility] US Routine 12/03/2014 10:22 AM Bicornuate uterus Res ults for this TRANSVAGINAL, LTD CDT affecting , pr ocedure are in OB US antepartum, the results unspecified section. trimester documented in this encounter Results [place] US Transvaginal, Ltd OB US (12/03/2014 10:22 AM CDT) Anatomical Region Laterality Modality Pelvis Other Specimen (Source) Anatomical Location Collection Method / Collectio n Time Received Time / Laterality Volume Impressions 12/03/2014 10:32 AM CDT : ?? Intrauterine , 16+2/7 ??wee ks gestation ?? Stable cervical length Francisca Evans MD <Electronic Signature> ??12/03/2014 10:3 2am Narrative 12/03/2014 10:32 AM CDT ? [facility] ?[place] ??[address] ? Phone: ?Offices: [facility]aren Metz[facility] [place], [place] Pat. Name: ESTEFANIA MCKEON ?[place] Pat. No: ?? [id number] ?Study Date: ?? 12/03/2014 ??9:59am LMP: ? 08/11/2014 ?Referring MD: Wanda Guallpa MD 2708 GA by LMP: 16w2d ? Trencher Driver: ??Gisela Centeno, MAYTE, RVT GA by 1st: 16w2d ? , Age: ? 1985, 29 Hist/Ind: ??Bicornuate uterus seen on ou tside ? Sonohysterogram ? Severe Iron Deficiency ? Increased AFP 3.46 MOM o n First Trimester Screening ? Transvaginal Cervix ? Pregnancies: ?? 2, Para 0010 ? GA Selected: ??16w2d (LMP) ? CHERI: ?05/18/2015 Cervical Length: ??3.9 cm Heart Rate: 154 bpm CLINICAL SUMMARY A Transvaginal and Limited Ultrasound wa s done. TYPE OF GESTATION: ?? Holliday PRESENTATION OF FETUS: Transverse PLACENTA: ??Anterior-Fundus HEART: ?? heart motion is kei ntified CERVIX: ??The cervix measures ??3.9 cms in length by transvaginal scan. ?There is no f unnel seen. ? There is no change with fundal pr essure Procedure Note Francisca Evans MD - 01/19/2016 [place] [address] Fax: Offices: [facility]aren Metz[facility] [place] Pat. Name: ESTEFANIA MCKEON Nadine eyal dickey [place] Pat. No: [id number] Study Date: 12/03/2014 9:59am LMP: 08/11/2014 Referring MD: Wanda Guallpa MD 7414 GA by LMP: 16w2d Trencher Driver: Gisela silva RDKY, RVT GA by 1st: 16w2d , Age: 1 1985, [age] Hist/Ind: Bicornuate uterus seen on outs kei Sonohysterogram Severe Iron Deficiency Increased AFP 3.46 MOM on First Trimest er Screening Transvaginal Cervix Pregnancies: 2, Para 0010 GA Selected: 16w2d (LMP) CHERI: 05/18/2015 Cervical Length: 3.9 cm Heart Rate: 154 bpm CLINICAL SUMMARY A Transvaginal and Limited Ultrasound wa s done. TYPE OF GESTATION: Holliday PRESENTATION OF FETUS: Transverse PLACENTA: Anterior-Fundus HEART: heart motion is ident ified CERVIX: The cervix measures 3.9 cms in l ength by transvaginal scan. There is no funnel seen. There is no change with fundal pressure IMPRESSION : Intrauterine , 16+2/7 weeks ge station Stable cervical length Francisca Evans MD <Electronic Signature> 12/03/2014 10:32a m Francisca Evans MD RAD LATONIA US documented in this encounter Visit Diagnoses Diagnosis Bicornuate uterus affecting , a ntepartum, unspecified trimester documented in this encounter Care Teams Silk Top Hat Body Maker Relationship Specialty Start Date End Date Md Lindquist MD PCP - General 08/25/10 07/05/16 [place] [address] documented as of this encounter
--- OUTSIDE RECORDS SUMMARY | 2022-04-25 22:36 | XMS_ITS | Encounter Summary ---
:1985 Author Organization [facility] Address [address], [place] [address] Care Team Providers Name Role Phone Md SOL Lindquist Primary Care Provider Reason for Visit Reason Comments Genetic Counseling Encounter Details Date Type Department Care Team Description 11/11/2014 Notes/Orders Specialty Center 39[address] Joyce Moy Maternal Medic maria elena Webb, [facility] 39[address] [facility] [address] [place], [place] [address] [place] [address] [phone] Social History Tobacco Use Types Packs/Day Years Used Date Smoking Tobacco: Never Assessed Sex Assigned at Date Recorded Not on file documented as of this encounter Progress Notes Kylah Moy [facility] - 11/11/2014 4:46 PM CDT NTD labs recently added AFP to first trimester screening. The purpose of this was to increase the performance of Down syndrome screening. This testing is not considered a screen for neural tube defects. Your patient's first trimester screen showed low risk for Down syndrome and trisomy 18/13. However,AFP was at or above 2.5 Multiples of the Median. The clinical significance of this is unclear. A second trimester MSAFP should be considered. documented in this encounter Plan of Treatment Not on filedocumented as of this encounter Visit Diagnoses Not on filedocumented in this encounter Care Teams Yard Truck Driver Relationship Specialty Start Date End Date Md Lindquist MD PCP - General 08/25/10 07/05/16 [place] [address] documented as of this encounter
--- OUTSIDE RECORDS SUMMARY | 2022-04-25 22:36 | XMS_ITS | Encounter Summary ---
:1985 Author Organization [facility] Address [address] [place] [address] Care Team Providers Name Role Phone Md SOL Lindquist Primary Care Provider Reason for Visit Reason Comments Concerns Encounter Details Date Type Department Care Team Description 10/03/2014 Initial Consult Wanda Chery Pregna ncy with Obstetrics/Gynecolog history of y [address] miscarriage, first [address] [place] [address] trimester ([address] RANGEL Lin Dx) [place] [phone] Social History Tobacco Use Types Packs/Day Years Used Date Smoking Tobacco: Never Assessed Sex Assigned at Date Recorded Not on file documented as of this encounter Last Filed Vital Signs Vital Sign Reading Time Taken Comments Blood Pressure 110/58 10/03/2014 2:35 PM CDT Pulse - - Temperature - - Respiratory Rate - - Oxygen Saturation - - Inhaled Oxygen Concentration - - Weight 65.5 kg (144 lb 6.4 oz) 10/03/2014 2:35 PM CDT Height 172.7 cm (5' 8) 10/03/2014 2:35 PM CDT Body Mass Index 21.96 10/03/2014 2:35 PM CDT documented in this encounter Progress Notes Wanda Guallpa MD - 10/03/2014 5:10 PM CDT Estefania Mckeon is a 29 y.o. female Chief complaint: concerns History of present illness: Patient had a last menstrual period of August 11, 2014 making her now 7 weeks 4 days gestation. She is nervous because she had a miscarriage 3 years ago and was told she had an increased risk for miscarriage again. Patient lost her at approximately 12 weeks gestation. She has given me access to review her records in the [employer] system. Her ultrasound of the time of the miscarriage suggested the possibility of an arcuate or septate uterus. 2 months later in September of 2011 she underwent a sonohysterogram. The report on this states that the uterus was bicornuate. Despite this having much better prognosis for subsequent pregnancies than a septate uterus the patient ca me away from this with impression that she was unlikely to ever have a normal . Menstrual History: OB History Para Term AB TAB SAB Ectopic Multiple Living 2 1 1 Patient's last menstrual period was 08/11/2014 (exact date). Past Medical History: 1. Known kidney stones 2. Appendectomy 3. Severe anemia. Patient states that she has hemoglobins running as low as 8 and history of iron infusions. Her mother has Crohn's disease and the patient has had complete visualization of her intestinal tract with a endoscopy, colonoscopy and a camera that she swallowed and it was followed through her small intestine. Objective: Patient is alert and oriented and in no distress. Ultrasound is done transvaginally by myself and demonstrates a single living intrauterine redness hewas crown-rump length consistent with gestational age. Impression and Plan: Explained to the patient the difference between a septate and bicornuate uterus. I think she has a good prognosis for successful . I've asked her to schedule an initial visit for some time in the next 2 weeks. I've also put in a referral to the clinic so they can assess the uterine contour and placement of . Total appointment time 30 minutes with 20 minutes of review of records and counseling regarding their significance. documented in this encounter Plan of Treatment Not on filedocumented as of this encounter Visit Diagnoses Diagnosis with history of miscarriage, f irst trimester - Primary documented in this encounter Care Teams Physicist Solid State Relationship Specialty Start Date End Date Md Lindquist MD PCP - General 08/25/10 07/05/16 [place] [address] documented as of this encounter
--- OUTSIDE RECORDS SUMMARY | 2022-04-25 22:36 | XMS_ITS | Encounter Summary ---
:1985 Author Organization [employer] Address [address] [place] [address] Care Team Providers Name Role Phone Md SOL Lindquist Primary Care Provider Reason for Visit Reason Comments Infusion Encounter Details Date Type Department Care Team Description 11/20/2014 Hospital Encounter [facility] Natanael Hurd MD [facility] [address] [place] [address] deficiency anemia) [address] [place] [id number] [phone] Social History Tobacco Use Types Packs/Day Years Used Date Smoking Tobacco: Never Assessed Sex Assigned at Date Recorded Not on file documented as of this encounter Last Filed Vital Signs Vital Sign Reading Time Taken Comments Blood Pressure 107/66 11/20/2014 10:12 AM CDT Pulse 87 11/20/2014 10:12 AM CDT Temperature 36.5 ??C (97.7 ??F) 11/20/2014 10:12 AM CDT Respiratory Rate - - Oxygen Saturation 100% 11/20/2014 10:12 AM CDT Inhaled Oxygen Concentration - - Weight 65.3 kg (144 lb) 11/20/2014 10:12 AM CDT Height - - Body Mass Index 21.9 11/18/2014 3:24 PM CDT documented in this encounter Medications at Time of Discharge Medication Sig Dispensed Refills Start Date End Date Cefdinir (aka OMNICEF) Take 300 mg by 0 5 11/26/2014 CAPS mouth 2 times daily. cetirizine (aka zyRTEC) Take 10 mg by mouth 0 11/28/2015 tablet daily (every 24 hours). cetirizine (ZYRTEC) 10 MG Take 10 mg by mouth 0 0 11/18/2014 06/19/2018 tablet daily (every 24 hours). cholecalciferol (AKA Take 2 tablets by 100 tablet 0 11/06/19 15 06/19/2018 VITAMIN D3) 1000 UNITS mouth daily (every tabletIndications: 24 hours). take two Vitamin D deficiency tablets daily for (HRC) the next week, then daily thereafter Vit-Fe Take 1 Tab by mouth 0 11/05/2014 06/30/2016 Fumarate-FA ( OR) Daily. Reported on 06/30/2016 documented as of this encounter Progress Notes Dahlia Irvin RN - 11/20/2014 12:11 PM CDT Pt. here for her first Venofer infusion. She states she is feeling well and has no c/o's at this time. Compazine held and removed from patients protocol due to her being . Pt. took her own Ondansetron prior to infusion. Pt. tolerated her infusion with no reactions noted. She will return to clinic 11/29/14 for her next treatment. documented in this encounter Miscellaneous Notes Medication History - Addi Bond MD - 11/20/2014 11:59 PM CDT INPATIENT MEDS Encounter Date: 11/20/14 0.9% sodium chloride latex free syringe 20 mL Start Date:11/20/14, End Date:11/20/14, Frequency:PRN Taken Dose Action User Route Site Recorded Comment Reason 11/20/14 1037 10 mL Given Dahlia Irvin RN Intravenous - 11/20/14 1038 - - 0.9% sodium chloride flush 500 mL Start Date:11/20/14, End Date:11/20/14, Frequency:ONCE Taken Dose Action User Route Site Recorded Comment Reason 11/20/14 1225 500 mL Infused Dahlia Irvin RN Intravenous - 11/20/14 1254 - - 11/20/14 1045 500 mL Started Dahlia Irvin RN Intravenous - 11/20/14 1045 - - iron sucrose (VENOFER) 200 mg in 0.9% sodium chloride 100 mL infusion Start Date:11/20/14, End Date:11/20/14, Frequency:ONCE Taken Dose Action User Route Site Recorded Comment Reason 11/20/14 1145 200 mg Infused Dahlia Irvin RN Intravenous - 11/20/14 1211 - - 11/20/14 1045 200 mg Started Dahlia Irvni RN Intravenous - 11/20/14 1045 - - MR VARGAS Snapshot - Addi Bond MD - 11/20/2014 11:59 PM CDT Images from the original note were not included. [facility] [address] [place] [address] [email or web address] Estefania Mckeon 11/20/2014 10:00 AM Hospital Encounter Department: [facility] Dept Phone: Description: Female : 1985 Provider: Ben Evans Thank you for choosing [facility] for your health care visit with [facility]. We are happy to care for you and provide this summary of your visit. HERE IS WHAT YOU NEED TO KNOW To learn how you can take steps to stay as healthy as you can be visit [email or web address] HERE IS WHAT YOU NEED TO DO Call your clinic if: You develop new symptoms Your symptoms worsen unexpectedly You are not improving as expected You have questions about your visit or medications Your to do list Future Appointments Provider Department Dept Phone 11/29/2014 8:30 AM Inf [facility] 12/03/2014 10:00 AM David Thomas5 Clinic [phone] 12/03/2014 10:15 AM MD [place]ia Martinez 1515 Clinic [phone] 12/13/2014 10:20 AM MD [place] Garcia5 Obstetrics/Gynecology [phone] 12/17/2014 2:00 PM Shake Latonia Us 2 [facility] [phone] 12/17/2014 3:00 PM MD [place] Martinez [facility]5 Clinic [phone] 12/26/2014 9:10 AM Lab, [facility] [phone] 12/31/2014 10:45 AM Shake Latonia Us 2 [facility] [phone] 12/31/2014 11:00 AM MD [place] Martinez [facility] [phone] 01/14/2015 10:45 AM Shake Latonia Us 2 [facility] [phone] 01/14/2015 11:15 AM Francisca Evans MD [facility] [phone] 01/28/2015 10:45 AM Shake Latonia Us 2 [facility] [place] [facility] [place] 15[address] Clinic [phone] 01/28/2015 11:00 AM Francisca Evans MD [place] [address] Clinic [phone] Future Orders Complete By Ordering Dept. Ferritin [ISAK] As directed [place] [address] Obstetrics/Gynecology [facility] US OB Complete, Cvx As directed [place] [address] Clinic Recurring Lab Work Interval Ordering Dept. [facility] OB US q 2 wks until 11/06/2015 [place] [address] Clinic HERE IS INFORMATION FROM TODAY'S VISIT Reason for Visit Infusion Venofer Reason for Visit History Health issues considered by your clinician today KEZIA (iron deficiency anemia) If you had any tests that were not discussed during your visit, you will be notified of your results by your clinic. Medications administered today Administered Action 0.9% sodium chloride flush 500 mL 11/20/2014 Started 0.9% sodium chloride latex free syringe 20 mL 11/20/2014 Given iron sucrose (VENOFER) 200 mg in 0.9% sodium chloride 100 mL infusion 11/20/2014 Started MEDICATIONS As of today's visit, these are your current medications DOSAGE cefdinir (OMNICEF) 300 mg capsule (Taking) Take 300 mg by mouth 2 times daily. cetirizine (ZYRTEC) 10 mg tablet (Taking) Take 10 mg by mouth daily (every 24 hours). cholecalciferol (VITAMIN D) 1,000 unit tablet (Taking) Take 2 tablets by mouth daily (every 24 hours). take two tablets daily for the next week, then daily thereafter yeouosg-yzid-kbhrb acid 27-1 mg Tab (Taking) Take 1 tablet by mouth daily (every 24 hours). Vital signs from your visit Your Vital Signs Were BP Pulse Temp(Src) Weight SpO2 Last Period 87 97.7 ??F (36.5 ??C) (Oral) 144 lb (65.318 kg) 100% 08/11/2014 (Exact Date) Smoking Status Never Smoker Allergies as of 11/20/2014 Benadryl [Diphenhydramine Hcl] 10/03/2014 Shortness Of Breath, Palpitations Amoxicillin 07/28/2010 Allergy LW Reaction: HIVES Immunization History Never Reviewed No immunizations on file. About You Date Of Sex Race Ethnicity Preferred Language 1985 Female White Non- Lao This document contains confidential information about your health and care. It is provided directlyto you for your personal, private use only. documented in this encounter Plan of Treatment Not on filedocumented as of this encounter Visit Diagnoses Diagnosis KEZIA (iron deficiency anemia) Iron deficiency anemia, unspecified documented in this encounter Care Teams Electronic Prepress Operator Relationship Specialty Start Date End Date Md Lindquist MD PCP - General 08/25/10 07/05/16 [place] [address] documented as of this encounter
--- OUTSIDE RECORDS SUMMARY | 2022-04-25 22:36 | XMS_ITS | Encounter Summary ---
:1985 Author Organization [employer] Address [address] [place] [address] Care Team Providers Name Role Phone Md SOL Lindquist Primary Care Provider Encounter Details Date Type Department Care Team Description 08/28/2010 PN Conversion Only [place] CONVERSION Wanda Guallpa MD [address] [facility] [address] [facility] [place] [address] [address] [place] [phone] (Wo rk) Social History Tobacco Use Types Packs/Day Years Used Date Smoking Tobacco: Never Assessed Sex Assigned at Date Recorded Not on file documented as of this encounter Plan of Treatment Not on filedocumented as of this encounter Procedures Procedure Name Priority Date/Time Associated Diagnosis Comme geri SURGICAL CLARICE NEWSOME Routine 08/28/2010 7:00 AM Felipa maddox for this NICOLLET CDT procedure are i n the results section. documented in this encounter Results Pathology Report (08/28/2010 7:00 AM CDT) [facility] gist Method Time Signature Path: ?Final SURGICAL PATHOLOGY REP ORT HP CONVERSION Pathology #: [id number] ? Date Obtained: 08/28/2010 ?Date Received: 08/31/2010 DIAGNOSIS: A) Uterine cervix, endocervical curettage: ??- Benign endocervical tissue, no evidence of dysplasia. 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 COMMENT: A recent cervical cytology preparation was interpreted as L LILLIAM. ?BRIGITTE GOODSON MD ? (electronic signatur e) ? 09/01/2010 ??13:4 0 CLINICAL NOTES: Abnormal pap, LSIL ORGAN/TISSUE SITE: ECC/Cervix 3:00 GROSS DESCRIPTION: A) The specimen is labeled ECC and consists of a small amou nt of ?? blood-tinged mucus aggregating to 0.8 cm in greatest dim ension. The ?? tissue is filtered and submitted in cassette 3298 A. B) The specimen is labeled 3:00 and consists of a single ta n tissue ?? fragment measuring 0.2 cm in greatest dimension. ??The t issue is ?? filtered and submitted in cassette [id number] B. ? W NOEL MICROSCOPIC DESCRIPTION: A-B) The microscopic examination substantiates the diagnose s cited. CPT Codes: ?33932 x 2 ?End of Report Specimen Anatomical Collection Method Collection Time Receive d Time (Source) Location / / Volume Laterality CERVICAL SWAB / 08/28/2010 7:00 AM 2010 7:00 Unknown CDT AM CDT CERVICAL SWAB / 08/28/2010 7:00 AM 2010 7:00 Unknown CDT AM CDT Wanda uGallpa MD LAB_1 Performing Organization Address City/State/ZIP Code Phon e Number HP CONVERSION documented in this encounter Visit Diagnoses Not on filedocumented in this encounter Care Teams Diesel Technician Relationship Specialty Start Date End Date Md Lindquist MD PCP - General 08/25/10 07/05/16 [place] [address] documented as of this encounter
--- OUTSIDE RECORDS SUMMARY | 2022-04-25 22:36 | XMS_ITS | Encounter Summary ---
:1985 Author Organization [facility] Address [address] [place] [address] Care Team Providers Name Role Phone Md SOL Lindquist Primary Care Provider Encounter Details Date Type Department Care Team Description 08/28/2010 Procedure Visit [place] [address]15 Wanda Guallpa MD Obstetrics/Gynecolog y 1515 [facility] 15[address] [facility] . [address] [place] [address] [place] [phone] (Wo rk) Social History Tobacco Use Types Packs/Day Years Used Date Smoking Tobacco: Never Assessed Sex Assigned at Date Recorded Not on file documented as of this encounter Last Filed Vital Signs Vital Sign Reading Time Taken Comments Blood Pressure 130/50 08/28/2010 2:25 PM CDT Pulse - - Temperature - - Respiratory Rate - - Oxygen Saturation - - Inhaled Oxygen Concentration - - Weight 62.1 kg (136 lb 15.9 oz) 08/28/2010 2:25 PM CDT C: 62.1kg Height - - Body Mass Index 20.23 07/28/2010 11:11 AM ELECTRIC MOTOR TESTER documented in this encounter Progress Notes Wanda Guallpa MD - 08/28/2010 12:01 AM CDT Colposcopy Note IMPRESSION: Final Diagnosis determined by path report Past History: : 0 LMP: 08/24/10 Patient is not . 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 The patient was placed in the dorsal lithotomy position. A vaginal speculum was placed. No analgesia was given. Dilute acetic acid was applied to cervix. The exocervix was visualized. The transformation zone was visualized satisfactorily. Colposcopy was done with the white light. Biopsy done at 3 o'clock position(s) Endocervical curettage was done. Colposcopy of vagina revealed: normal. The patient tolerated the procedure well. No bleeding was noted upon completion. FINDINGS: Mosiac changes @ 3 o'clock position(s). ASSESSMENT: Final Diagnosis determined by path report PLAN: Follow-up with Clinical Education Manager provider Follow-up per [facility] Guideline Procedure Planned: If HGSIL, consider LEEP biopsy. *SH~OBGYN~COLPOSCPY~Shorthand Note completed on: 08/28/2010 2:50 PM documented in this encounter Plan of Treatment Not on filedocumented as of this encounter Visit Diagnoses Not on filedocumented in this encounter Care Teams Resolution Expert Relationship Specialty Start Date End Date Md Lindquist MD PCP - General 08/25/10 07/05/16 [place] [address] documented as of this encounter
--- OUTSIDE RECORDS SUMMARY | 2022-04-25 22:36 | XMS_ITS | Encounter Summary ---
:1985 Author [facility] Address [address] [place] [address] Care Team Providers Name Role Phone Md SOL Lindquist Primary Care Provider Encounter Details Date Type Department Care Team Description 07/28/2010 PN Conversion Only [place] CONVERSION Wanda Blandon MD [address] [facility] [address] [place] [address] [address] [place] [phone] (Wo rk) Social History Tobacco Use Types Packs/Day Years Used Date Smoking Tobacco: Never Assessed Sex Assigned at Date Recorded Not on file documented as of this encounter Plan of Treatment Not on filedocumented as of this encounter Procedures Procedure Name Priority Date/Time Associated Comments Diagnosis ANATOMICAL PATH Routine 07/28/2010 3:46 PM Result s for this LIQUID BASED HIGHWAY PAINTER HELPER procedure are i n the results section. SEXUALLY TRANSMITTED Routine 07/28/2010 3:41 PM R esults for this DISEASE PROBE HIGHWAY PAINTER HELPER procedure are in the results section. documented in this encounter Results Pap Smear (07/28/2010 3:[address] PAINTER HELPER) P athologist Signature Pap Smear SEE TEXT No normal HP CONVERSION range Comment: Final GYNECOLOGICAL CYTOLOGY REPORT Pathology #: [id number] ?Date Obta ined: 07/28/2010 ? Date Received: 07/29/2010 INTERPRETATION/RESULTS: Low grade squamous intraepithelial lesio n, mild dysplasia (LSIL), encompassing mild epithelial dysplasia a nd koilocytic changes consistent with Condyloma acuminatum. SPECIMEN ADEQUACY: Satisfactory for Evaluation. ??Endocervi aminta cells/transformation zone component present. Verified on 07/31/2010 ??by Natalie STUART MD (electronic signature) CLINICAL NOTES: ?LMP: 07/05/2010. SPECIMEN TYPE: ? CERVICAL WITH REFLEX TO HPV IF CUS ?* End of Report Specimen (Source) Anatomical Collection Method Collection Time Re ceived Time Location / / Volume Laterality 07/28/2010 3:[address]INTER HELPER Wanda Blandon MD LAB_1 Performing Organization Address City/State/ZIP Code Phon e Number HP CONVERSION Sexually Transmitted Disease Probe (07/28/2010 3:[address] PAINTER HELPER) [facility] gist Method Time Signature Sexually SEE TEXT HP CONVERSION Transmitted Disease Probe Comment: STDPR Sexually Transmitted Disease DNA Probe ? ORDERED BY: WANDA BLANDON SOURCE: Endocervical for molecular testi ng COLLECTED: ??07/28/10 15:41 ? PLATED: ? 07/28/10 15:43 Chlamydia trachomatis DNA Probe ?FINAL ? 07/29/10 15:04 Chlamydia trachomatis NEGATIVE by DNA a mplification The amplified DNA assay is cleared by [facility] for non-medicolegal diagnostic testing in [facility] adult population. Neisseria gonorrhea DNA Probe ?FINAL ? 07/29/10 15:05 Neisseria gonorrhea NEGATIVE by DNA amp lification. The amplified DNA assay is cleared by [facility] for non-medicolegal diagnostic testing in [facility] adult population. Specimen (Source) Anatomical Collection Method Collection Time Re ceived Time Location / / Volume Laterality 07/28/2010 3:[address] PAINTER HELPER Wanda Blandon MD LAB_1 Performing Organization Address City/State/ZIP Code Phon e Number HP CONVERSION documented in this encounter Visit Diagnoses Not on filedocumented in this encounter Care Teams Food Bagging Machine Operator Relationship Specialty Start Date End Date Md Lexa, PCP - General 08/25/10 07/05/16 [place] [address] documented as of this encounter
--- OUTSIDE RECORDS SUMMARY | 2022-04-25 22:36 | XMS_ITS | Encounter Summary ---
:1985 Author Organization [employer] Address [address] [place] [address] Care Team Providers Name Role Phone Md SOL Lindquist Primary Care Provider Encounter Details Date Type Department Care Team Description 11/05/2014 Lab Visit [facility] Iron deficiency anemia; [address] Kidney stone complicating pr egnancy, unspecified trimester; [place] Lin [address] Supervision of normal subseq uent , first trimester; [phone] First trimester screening Social History Tobacco Use Types Packs/Day Years Used Date Smoking Tobacco: Never Assessed Sex Assigned at Date Recorded Not on file documented as of this encounter Progress Notes Kylah Moy CGC - 11/11/2014 4:47 PM CDT Quick Note: Normal range result was released to [facility]. Bari Sandoval RN - 11/11/2014 1:05 PM CDT Quick Note: pt informed. Francisca Evans MD - 11/11/2014 9:33 AM CDT Quick Note: low normal ferritin at this time. recommend she keep her consult appointment with hematology. documented in this encounter Miscellaneous Notes Miscellaneous - 07/01/2016 6:48 AM CSTNotes Recorded by Bari Sandoval RN on 11/11/2014 at 1:05 PMpt informed.------Notes Recorded by Francisca Evans MD on 11/11/2014 at 9:33 AMlow normal ferritin at this time. recommend she keep her consult appointment with hematology. VATIVES TRADER Miscellaneous - 07/01/2016 6:48 AM CSTNotes Recorded by Bari Sandoval RN on 11/11/2014 at 1:05 PMpt informed.------Notes Recorded by Francisca Evans MD on 11/11/2014 at 9:33 AMlow normal ferritin at this time. recommend she keep her consult appointment with hematology. VATIVES TRADER Miscellaneous - 07/01/2016 6:48 AM CSTNotes Recorded by Bari Sandoval RN on 11/11/2014 at 1:05 PMpt informed.------Notes Recorded by Francisca Evans MD on 11/11/2014 at 9:33 AMlow normal ferritin at this time. recommend she keep her consult appointment with hematology. VATIVES TRADER Miscellaneous - 07/01/2016 6:46 AM CSTNotes Recorded by Kylah Moy MS on 11/11/2014 at 4:47 PMNormal range result was released to [facility]. VATIVES TRADER documented in this encounter Plan of Treatment Not on filedocumented as of this encounter Procedures Procedure Name Priority Date/Time Associated Diagnosis Comme nts NTD FIRST TRIMESTER Routine 11/05/2014 10:47 Supervision of no rmal Results for this SCREEN AM CDT subsequent , proced ure are in first trimester the results First trimester section. screening FERRITIN Routine 11/05/2014 10:47 Iron deficiency Results for this AM CDT anemia procedure are i n the results section. PHOSPHORUS Routine 11/05/2014 10:47 Kidney stone Results for this AM CDT complicating procedure are i n , the results unspecified trimester sectio n. CALCIUM Routine 11/05/2014 10:47 Kidney stone Results for this AM CDT complicating procedure are i n , the results unspecified trimester sectio n. documented in this encounter Results NTD FIRST TRIMESTER SCREEN (11/05/2014 10:47 AM CDT) Analysis Performed At Patho logist Time Signature Free Beta hCG 1.79 HP CONVERSION MoM Free Beta hCG 117.58 ng/mL HP CONVERSION Value Free Beta hCG 80 % HP CONVERSION % SAHRA-A MoM 0.85 HP CONVERSION SAHRA-A Value 1.18 mIU/mL HP CONVERSION SAHRA-A % 40 % HP CONVERSION NT Delta -0.52 HP CONVERSION NT Value 1.00 mm HP CONVERSION NT% 25 % HP CONVERSION Risk Table See Note HP CONVERSION Comment: FIRST TRIMESTER SCREEN AFP: ? 76.37 IU/ml ?3.46 M oM ? 99.5 % Nasal Bone: Present Risk Table ?1st Risk ??Before ?Risk After ??Results ?Trimester Screening Screening ?Cut-Off DOWN SYNDROME 1 in 304 ??1 in 686 ??1 in >66846 ??WITHIN RANGE TRISOMY 18/13 1 in 150 ??1 in 1226 1 in >12320 ??WITHIN RANGE SEE ORIGINAL FOR GRAPH Recommendations: Second trimester MSAFP and/or ultrasound for open neural tube defects. ??If MSAFP or other second trim vj screening is performed, blood collection must be betw een 11/24/2014 and 01/11/2015. Comments: First trimester AFP results are used onl y for Down Syndrome risk assessment (not T18/13) and are not intended for open neural tube defect risk assessment. Nasal bone results are used only for the Down syndrome risk calculation but not for Trisomy 18/13. CAUTION: This test was developed and its performance characteristics determined by [employer]/[facility]. ??It has not been cleared by the U.S. Food and Dr ug Administration. The methods and performance characterist ics have been reviewed and approved by the [facility]. The results do not eliminate the possibility that the may be associated with d efects including Down syndrome and trisomy 18, trisomy 13 or o ther disorders not detectable by this screening test. ??The multiple of the median and risk results provided in this report are dependent on the accuracy of the demographic and u ltrasound information provided. The ordering physician should ensure that the ultrasound information has been obtained from a alliance consultant who is credentialed by and participating in NT/NB quality review program such as NT[employer] or [employer]. [facility] assumes no responsibility for ensuring t hat the ultrasound information has been obtained by a [employer] credentialed alliance consultant, including verification of u pdates to credentialing status. This report contai ns protected healthcare information. The recipient sh all not disclose this information unless required to provide a ppropriate medical care without the permission of the patie nt. Any recommendations or comments on specific analytes are provided as a courtesy to the ordering physician and do not constitute medical advice. Specimen Anatomical Collection Method Collection Time Receive d Time (Source) Location / / Volume Laterality 11/05/2014 10:47 11/05/2014 4:09 AM CDT PM CDT Narrative HP CONVERSION - 11/08/2014 1:03 PM CDT Performed at [employer] [address] [place] [address] Transcriptions 07/01/2016 6:46 AM CSTNotes Recorded by Kylah Moy MS on 11/11/2014 at 4:47 PMNormal range result was released to [employer]. Kylah Moy [facility] Performing Organization Address City/State/ZIP Code Phon e Number HP CONVERSION Phosphorus (11/05/2014 10:47 AM CDT) athologist Signature Phosphorus 3.3 2.5 - 4.5 HP CONVERSION Serum mg/dL Specimen Anatomical Collection Method Collection Time Receive d Time (Source) Location / / Volume Laterality 11/05/2014 10:47 11/05/2014 2:39 AM CDT PM CDT Narrative HP CONVERSION - 11/05/2014 3:22 PM CDT Performed at [facility], [address] [place] [address] Transcriptions 07/01/2016 6:48 AM CSTNotes Recorded by Bari Sandoval RN on 11/11/2014 at 1:05 PMpt informed.------Notes Recorded by Francisca Evans MD on 11/11/2014 at 9:33 AM low normal ferritin at this time. recomm end she keep her consult appointment with hematology. Francisca Evans MD LAB_1 Performing Organization Address [facility] Phon e Number HP CONVERSION Calcium (11/05/2014 10:47 AM CDT) athologist Signature Calcium 10.1 8.5 - 10.5 HP CONVERSION mg/dL Specimen Anatomical Collection Method Collection Time Receive d Time (Source) Location / / Volume Laterality 11/05/2014 10:47 11/05/2014 2:39 AM CDT PM CDT Narrative HP CONVERSION - 11/05/2014 3:22 PM CDT Performed at [facility], [address] [place] [address] Transcriptions 07/01/2016 6:48 AM CSTNotes Recorded by Bari Sandoval RN on 11/11/2014 at 1:05 PMpt informed.------Notes Recorded by Francisca Evans MD on 11/11/2014 at 9:33 AM low normal ferritin at this time. recomm end she keep her consult appointment with hematology. Francisca Evans MD LAB_1 Performing Organization Address [facility] Phon e Number HP CONVERSION Ferritin (11/05/2014 10:47 AM CDT) athologist Signature Ferritin Serum 11 10 - 291 HP CONVERSION ng/mL Specimen Anatomical Collection Method Collection Time Receive d Time (Source) Location / / Volume Laterality 11/05/2014 10:47 11/05/2014 3:28 AM CDT PM CDT Narrative HP CONVERSION - 11/05/2014 4:07 PM CDT Performed at [facility], [address] [place] [address] Transcriptions 07/01/2016 6:48 AM CSTNotes Recorded by Bari Sandoval RN on 11/11/2014 at 1:05 PMpt informed.------Notes Recorded by Francisca Evans MD on 11/11/2014 at 9:33 AM low normal ferritin at this time. recomm end she keep her consult appointment with hematology. Francisca Evans MD LAB_1 Performing Organization Address City/State/ZIP Code Phon e Number HP CONVERSION documented in this encounter Visit Diagnoses Diagnosis Iron deficiency anemia Iron deficiency anemia, unspecified Kidney stone complicating , uns pecified trimester Supervision of normal subsequent pregnan cy, first trimester First trimester screening Other specified screening documented in this encounter Care Teams Hearing Screener Relationship Specialty Start Date End Date Md Lexa, PCP - General 08/25/10 07/05/16 [place] [address] documented as of this encounter
--- OUTSIDE RECORDS SUMMARY | 2022-04-25 22:36 | XMS_ITS | Encounter Summary ---
:1985 Author Organization [facility] Address [address] [place] [address] Care Team Providers Name Role Phone Md SOL Lindquist Primary Care Provider Encounter Details Date Type Department Care Team Description 12/13/2014 Lab Visit [facility] History of UTI [address] [facility] . [place] Lin [address] Social History Tobacco Use Types Packs/Day Years Used Date Smoking Tobacco: Never Assessed Sex Assigned at Date Recorded Not on file documented as of this encounter Plan of Treatment Not on filedocumented as of this encounter Visit Diagnoses Diagnosis History of UTI Personal history of urinary (tract) infe ction documented in this encounter Care Teams Gem Expert Relationship Specialty Start Date End Date Md Lindquist MD PCP - General 08/25/10 07/05/16 [place] [address] documented as of this encounter
--- OUTSIDE RECORDS SUMMARY | 2022-04-25 22:36 | XMS_ITS | Encounter Summary ---
:1985 Author Organization [facility] Address [address], [place] [address] Care Team Providers Name Role Phone Md SOL Lindquist Primary Care Provider Reason for Visit Reason Comments Menstrual Problems Encounter Details Date Type Department Care Team Description 01/22/2011 Nurse Triage [place] 1515 Lenora Obregon, Menstrual Problems Obstetrics/Gynecolog y RN [address] [facility] [place] [address] Social History Tobacco Use Types Packs/Day Years Used Date Smoking Tobacco: Never Assessed Sex Assigned at Date Recorded Not on file documented as of this encounter Nursing Notes Lenora Obregon, RN - 01/22/2011 12:13 PM CDT Protocol: VAGINAL BLEEDING - [id number] Affirmative: Taking control pills and hasn't missed taking any pills Disposition of Home Care suggested. Pt had her period 1 1/2 wk's ago, now having BTB, advised it is not uncommon within the first 3 packs of new OCP regimen. Call back if has pain or bleeding becomes heavy. documented in this encounter Plan of Treatment Not on filedocumented as of this encounter Visit Diagnoses Not on filedocumented in this encounter Care Teams Community Board Member Relationship Specialty Start Date End Date Md Lindquist MD PCP - General 08/25/10 07/05/16 [place] [address] documented as of this encounter
--- OUTSIDE RECORDS SUMMARY | 2022-04-25 22:36 | XMS_ITS | Encounter Summary ---
:1985 Author Organization [facility] Address [address] [place] [address] Care Team Providers Name Role Phone Md SOL Lindquist Primary Care Provider Encounter Details Date Type Department Care Team Description 11/05/2014 Notes/Orders [facility] 1515 Wanda Guallpa MD Obstetrics/Gynecolog y 15[address] [facility] [place] [facility] [address] [place] [address] [place] [address] [phone] (Wo rk) Social History Tobacco Use Types Packs/Day Years Used Date Smoking Tobacco: Never Assessed Sex Assigned at Date Recorded Not on file documented as of this encounter Progress Notes Wanda Guallpa MD - 11/05/2014 4:21 PM CDT Documentation: seen in today. Impression : Intrauterine , 12+2/7 weeks gestation Normal nuchal translucency measurement Partial bicornuate uterus, on right v documented in this encounter Plan of Treatment Not on filedocumented as of this encounter Visit Diagnoses Not on filedocumented in this encounter Care Teams Wood Tile Installer Relationship Specialty Start Date End Date Md Lindquist MD PCP - General 08/25/10 07/05/16 [place], [place] [id number] documented as of this encounter
--- OUTSIDE RECORDS SUMMARY | 2022-04-25 22:36 | XMS_ITS | Encounter Summary ---
:1985 Author Organization [facility] Address [address] [place] [address] Care Team Providers Name Role Phone Md SOL Lindquist Primary Care Provider Reason for Visit Reason Comments Appt. Needed Encounter Details Date Type Department Care Team Description 09/25/2014 Telephone [place] 1515 Lenora Obregon, RN Appt. Needed Obstetrics/Gynecolog y 1515 [facility] . [place], [place] [id number] Social History Tobacco Use Types Packs/Day Years Used Date Smoking Tobacco: Never Assessed Sex Assigned at Date Recorded Not on file documented as of this encounter Nursing Notes Lenora Obregon, RN - 09/25/2014 3:39 PM CDT Pt called to happily report she is . 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 Hx: , miscarriage in July 2011. Future Appointments Date Time Provider Department Center 10/03/2014 2:30 PM MD VASILIY Garcia documented in this encounter Plan of Treatment Not on filedocumented as of this encounter Visit Diagnoses Not on filedocumented in this encounter Care Teams Mechanical Technical Service Specialist Relationship Specialty Start Date End Date Md Lindquist MD PCP - General 08/25/10 07/05/16 [place] [address] documented as of this encounter
--- OUTSIDE RECORDS SUMMARY | 2022-04-25 22:36 | XMS_ITS | Encounter Summary ---
:1985 Author Organization [facility] Address [address] [place] [address] Care Team Providers Name Role Phone Md SOL Lindquist Primary Care Provider Reason for Visit Reason Comments Appt. Needed Encounter Details Date Type Department Care Team Description 08/09/2011 Telephone [place] 1515 Lenora Obregon, RN Appt. Needed Obstetrics/Gynecolog y 15[address] [facility] [place], [place] [address] Social History Tobacco Use Types Packs/Day Years Used Date Smoking Tobacco: Never Assessed Sex Assigned at Date Recorded Not on file documented as of this encounter Nursing Notes Lenora Obregon, RN - 08/09/2011 10:39 AM CDT Appt for NOB needed, also needed to update address:[address] [place] [address] Delia Weiner. NOB appt scheduled for 08/30/11 with Saloni. documented in this encounter Plan of Treatment Not on filedocumented as of this encounter Visit Diagnoses Not on filedocumented in this encounter Care Teams Oracle Reports Developer Relationship Specialty Start Date End Date Md Lindquist MD PCP - General 08/25/10 07/05/16 [place], [place] [id number] documented as of this encounter
--- OUTSIDE RECORDS SUMMARY | 2022-04-25 22:36 | XMS_ITS | Encounter Summary ---
:1985 Author Organization [employer] Address [address] [place] [address] Care Team Providers Name Role Phone Md SOL Lindquist Primary Care Provider Reason for Visit Reason Comments RESULTS, TEST Encounter Details Date Type Department Care Team Description 11/01/2014 Notes/Orders [place] 1515 Natanael Rosales, Obstetrics/Gynecolog y 1515 [facility] . 1515 [facility] [place] [address] [address] [place], [place] [address] (Wo rk) Social History Tobacco Use Types Packs/Day Years Used Date Smoking Tobacco: Never Assessed Sex Assigned at Date Recorded Not on file documented as of this encounter Progress Notes Kassy Dickey, RN - 11/01/2014 3:39 PM CDT CCSM to Dr. Hairston to advise pap screening. Per Dr. Hairston: I would agree with return in 3 years. She will be +30 at that time so it will be with a cotest. documented in this encounter Plan of Treatment Not on filedocumented as of this encounter Visit Diagnoses Not on filedocumented in this encounter Care Teams Solo Truck Driver Relationship Specialty Start Date End Date Md Lindquist MD PCP - General 08/25/10 07/05/16 [place] [address] documented as of this encounter
--- OUTSIDE RECORDS SUMMARY | 2022-04-25 22:36 | XMS_ITS | Encounter Summary ---
:1985 Author Organization [facility] Address [address] [place] [address] Care Team Providers Name Role Phone Md SOL Lindquist Primary Care Provider Encounter Details Date Type Department Care Team Description 11/05/2014 Imaging [place] Maternal Preg basil with history of miscarriage, first trimester; Medicine Other abnormalities in shape or position of gravid uterus and of neighboring structures, antepartum [address] [place] [address] Social History Tobacco Use Types Packs/Day Years Used Date Smoking Tobacco: Never Assessed Sex Assigned at Date Recorded Not on file documented as of this encounter Plan of Treatment Not on filedocumented as of this encounter Procedures Procedure Name Priority Date/Time Associated Diagnosis Comme nts MFM US NT, EARLY Routine 11/05/2014 9:56 AM with his tory Results for this OB US CDT of miscarriage, first proced ure are in trimester the results Other abnormalities in secti on. shape or position of gravid uterus and of neighboring structures, antepartum documented in this encounter Results [place] US NT, Early OB US (11/05/2014 9:56 AM CDT) Anatomical Region Laterality Modality Pelvis Other Specimen (Source) Anatomical Location Collection Method / Collectio n Time Received Time / Laterality Volume Impressions 11/05/2014 11:01 AM CDT : ?? Intrauterine , 12+2/7 ??wee ks gestation ?? Normal nuchal translucency measureme nt ?? Partial bicornuate uterus, on right RECOMMENDATIONS: This patient is less than 35 years of ag e at the time of delivery. ??She was seen today for first trimester screening for aneuploidy (Ultrascreen). ?? Blood was drawn for SAHRA-A and free Beta HCG. ??She will be informed of test results when available - typically 7-10 days. This first trimester test does not scree n for open neural tube defect (ONTD, spina bifida). ??All women should be off ered maternal serum alpha fetoprotein (MS-AFP) screening at 15-18 weeks gestat ion Francisca Evans MD <Electronic Signature> ??11/05/2014 11:0 0am Narrative 11/05/2014 11:01 AM CDT ? [facility] ?[place], [place] ??[address] ? Phone: ?Offices: [facility] [place] Pat. Name: ESTEFANIA MCKEON [facility] No: ?? [id number] ?Study Date: ?? 11/05/2014 ??9:14am LMP: ? 08/11/2014 ?Referring MD: Wanda Guallpa MD 270[address] GA by LMP: 12w2d ? Registered Respiratory Therapist: ??Heather Guzman RDMS GA by US: ??12w3d ? , Age: ? 1985, 29 Hist/Ind: ??Bicornuate uterus seen on ou tside ? Sonohysterogram ? Severe Iron Deficiency ? First Trimester Screenin g ? Pregnancies: ?? 2, Para 0010 ? GA Selected: ??12w2d (LMP) ? CHERI: ?05/18/2015 MEASUREMENTS & AGE ? GROWTH EVALUATION Measurement ??GA ? Range ? So urce ?? % ?? 12w2d ??Ratios ----- ------- ?? CRL ??5.9 cm 12w3d ([id number]) Hadlock ??CRL ??54% GA for sonogram 12w3d ([id number]) based on (CRL) Avg ? Cervical Length: ??3.4 cm Heart Rate: 163 bpm CLINICAL SUMMARY A First Trimester Ultrasound Nuchal Naylor slucency Screening was done. TYPE OF GESTATION: Holliday PRESENTATION OF FETUS:Transverse MOTION: ?? appears normal PLACENTA: Appears Normal UTERUS AND ADNEXAE: The ovaries are yasmany sly normal. THERE APPEARS TO BE A ??PARTIAL BICORNUATE UTERUS WITH THE WA EGNANCY IN THE RIGHT SIDE OF UTERUS. CERVIX: ??Appears normal YOLK SAC: ??Was not seen HEART: ?? The cardiac rhythm is re gular and the rate is normal. EXTREMITIES: ?? All four extremities are visualized and movement is noted. GROWTH: ?? Consistent with normal growth NASAL BONE: ?? nasal bone was visua lized. NUCHAL TRANSLUCENCY: ??measures ??1.0 mm , ??which is below the 95th %tile. She did not meet with one of the [facility] genetic counselors today. Procedure Note Francisca Evans MD - 01/19/2016 [place] [address] Fax: Offices: [facility] [place]. Name: ESTEFANIA MCKEON [facility] No: [id number] Study Date: 11/05/2014 9:14am LMP: 08/11/2014 Referring MD: Wanda Guallpa MD 2513 GA by LMP: 12w2d Registered Respiratory Therapist: Heather Guzman RDMS GA by US: 12w3d , Age: 01 1985, 29 Hist/Ind: Bicornuate uterus seen on outs kei Sonohysterogram Severe Iron Deficiency First Trimester Screening Pregnancies: 2, Para 0010 GA Selected: 12w2d (LMP) CHERI: 05/18/2015 MEASUREMENTS & AGE GROWTH EV ALUATION Measurement GA Range Source % 12w2d Rati os ----- ------- CRL 5.9 cm 12w3d ([id number]) Hadlock C RL 54% GA for sonogram 12w3d ([id number]) based on (CRL) Avg Cervical Length: 3.4 cm Heart Rate: 163 bpm CLINICAL SUMMARY A First Trimester Ultrasound Nuchal Naylor slucency Screening was done. TYPE OF GESTATION: Holliday PRESENTATION OF FETUS:Transverse MOTION: appears normal PLACENTA: Appears Normal UTERUS AND ADNEXAE: The ovaries are yasmany sly normal. THERE APPEARS TO BE A PARTIAL BICORNUATE UTERUS WITH THE PREG BASIL IN THE RIGHT SIDE OF UTERUS. CERVIX: Appears normal YOLK SAC: Was not seen HEART: The cardiac rhythm is regul ar and the rate is normal. EXTREMITIES: All four extremities are vi sualized and movement is noted. GROWTH: Consistent with normal fet al growth NASAL BONE: nasal bone was visuali zed. NUCHAL TRANSLUCENCY: measures 1.0 mm, wh ich is below the 95th %tile. She did not meet with one of the [facility] genetic counselors today. IMPRESSION : Intrauterine , 12+2/[address] weeks [address] station Normal nuchal translucency measurement Partial bicornuate uterus, on right RECOMMENDATIONS: This patient is less than 35 years of ag e at the time of delivery. She was seen today for first trimester screening for aneuploidy (Ultrascreen). Blood was drawn for SAHRA-A and free Beta HCG. She will be informed of test results when available - typically 7-10 days. This first trimester test does not scree n for open neural tube defect (ONTD, spina bifida). All women should be offer ed maternal serum alpha fetoprotein (MS-AFP) screening at 15-18 weeks gestat ion Francisca Evans MD <Electronic Signature> 11/05/2014 11:00a m Wanda Guallpa MD RAD LATONIA US documented in this encounter Visit Diagnoses Diagnosis with history of miscarriage, f irst trimester Other abnormalities in shape or position of gravid uterus and of neighboring structures, antepartum documented in this encounter Care Teams Childhood Development Teacher Relationship Specialty Start Date End Date Md Lindquist MD PCP - General 08/25/10 07/05/16 [place] [address] documented as of this encounter
--- OUTSIDE RECORDS SUMMARY | 2022-04-25 22:36 | XMS_ITS | Encounter Summary ---
:1985 Author Organization [facility] Address [address], [place] [address] Care Team Providers Name Role Phone Md SOL Lindquist Primary Care Provider Reason for Visit Reason Comments CONSULT Encounter Details Date Type Department Care Team Description 11/18/2014 [facility] Natanael Hurd M D KEZIA (iron deficiency anemia) (Primary Dx ); Encounter [facility] [address] Iron def iciency anemia [address] [place] [address] [id number] Social History Tobacco Use Types Packs/Day Years Used Date Smoking Tobacco: Never Assessed Sex Assigned at Date Recorded Not on file documented as of this encounter Last Filed Vital Signs Vital Sign Reading Time Taken Comments Blood Pressure 115/80 11/18/2014 3:24 PM CDT Pulse 110 11/18/2014 3:24 PM CDT Temperature 36.3 ??C (97.3 ??F) 11/18/2014 3:24 PM CDT Respiratory Rate - - Oxygen Saturation - - Inhaled Oxygen Concentration - - Weight 65.6 kg (144 lb 9.6 oz) 11/18/2014 3:24 PM CDT Height 172.7 cm (5' 8) 11/18/2014 3:24 PM CDT Body Mass Index 21.99 11/18/2014 3:24 PM CDT documented in this [...] documented as of this encounter Progress Notes Natanael Hurd MD - 01/13/2015 4:10 PM CDT Progress Notes signed by Natanael Hurd MD at 01/14/15 1024 Author: Natanael Hurd MD Service: (none) Author Type: Physician Filed: 01/14/15 1024 Note Time: 01/13/15 170 Status: Signed Automobile Locator: Natanael Hurd MD (Physician) NAME: ESTEFANIA MCKEON MR#: [id number] CSN: [id number] AUTHENTICATING CLINICIAN: Natanael Hurd MD CONFIRM #: [id number] LOC: 3704 CLINIC CONSULTATION DATE OF CONSULTATION: 11/18/2014 : 1985 REQUESTING PHYSICIAN: Francisca Evans MD REASON FOR VISIT: Anemia during . HISTORY OF PRESENT ILLNESS: Estefania is a pleasant 29-year-old female, who presents today at the request of Dr. Evans for evaluation of presumed iron-deficiency anemia. I have reviewed her electronic medical record as it pertains to relevant laboratory studies. She hada CBC on October 18 which was within normal limits. A hemoglobin electrophoresis was unremarkable. A ferritin drawn on November 05 was decreased at 11. Her estimated date of conception was the end of April 2000. Since then, the estimated date of delivery is the end of April 2015. She was recently seen by Dr. Evans in High-Risk Medicine. She does have a history of iron deficiency diagnosed in 2006. She had been seen at the [facility] since her initial diagnosis in 2006. She was followed by Dr. Sandy in Hematology. Viewing her note, she recommended a colonoscopy and the patient endorses that this was done and negative. Her feeling at the time was that her iron-deficiency was secondary to menstrual blood loss. She has received IV iron infusions through the [facility] system. These have been tolerated relatively well per the patient's report. Currently, Estefania states that she is feeling relatively well. She was recently in the [facility] and was treated for a possible kidney infection. She does endorse some mild dyspnea on exertion. Currently, she denies any blood loss. No major symptoms of anemia other than some mild dyspnea on exertion. No pica. No B symptoms. REVIEW OF SYSTEMS: Ten points performed and otherwise negative. PAST MEDICAL HISTORY/PAST SURGICAL HISTORY: 1. Bicornuate uterus. 2. Iron deficiency. 3. Varicella. 4. Kidney stones. 5. [place] tooth extraction. 6. Appendectomy. 7. Cystoscopy for kidney stones. FAMILY HISTORY: Significant for a paternal grandmother with breast cancer. No hematologic disorders. SOCIAL HISTORY: The patient is single. She is employed. She is a never smoker. Minimal alcohol use. PHYSICAL EXAM: VITAL SIGNS: Blood pressure 115/80, temperature 97.3, pulse 110, weight 144 pounds, height 68 inches. GENERAL APPEARANCE: A 29-year-old female, not in acute distress. HEENT: Examined. There are no lesions of the oral cavity or oropharynx. LYMPH SYSTEM: Examined. There is no palpable lymphadenopathy of the bilateral cervical, supraclavicular, axillary, or inguinal regions. PULMONARY SYSTEM: Examined. Lungs are clear to auscultation without dullness to percussion bilaterally. CARDIOVASCULAR SYSTEM: Examined. Heart is regular rate and rhythm. No murmurs, gallops, rubs. ABDOMEN: Examined. Abdomen is soft, benign, nontender, nondistended with positive bowel sounds. No evidence of organomegaly. DERMATOLOGIC SYSTEM: Examined. There are no rashes noted in the distal upper or lower extremities, or the head and neck. MUSCULOSKELETAL SYSTEM: Examined. There is no erythema, swelling, or edema noted. NEUROLOGIC SYSTEM: Examined. There are no focal deficits of the motor, sensory, or cerebellar systems bilaterally. Cranial nerves 2-12 intact. LAB STUDIES AND IMAGING: Relevant lab studies were reviewed in the HPI portion of this note. ASSESSMENT/PLAN: Iron-deficiency anemia: We discussed management of her iron-deficiency anemia in the setting of ongoing . She is taking a vitamin with iron and folic acid and I recommend she continuethis. I am also recommending, given her low ferritin, that we treat her with weekly Venofer x2 and recheck her labs in a month after her last Venofer treatment to ensure that she has had correction of her iron deficiency. I did let her know that she was likely to become mildly anemic despite iron repletion during her secondary to volume expansion. I will phone her with the results. We discussed the risks, benefits and rationale for Venofer and she consented to proceed. RECOMMENDATION: Please see assessment and plan. CC: FRANCISCA EVANS MD [address] [place] [address] [id number] [place] [address] MRG:MEDQ C: CONFIRM #: [id number] documented in this encounter Miscellaneous Notes Medication History - Addi Bond MD - 11/18/2014 11:59 PM CDT INPATIENT MEDS Encounter Date: 11/18/14 cefdinir (OMNICEF) 300 mg capsule Start Date:11/15/14, End Date:11/26/14, Frequency:2 TIMES DAILY *No Administrations Recorded cetirizine (ZYRTEC) 10 mg tablet Start Date:-, End Date:-, Frequency:DAILY *No Administrations Recorded AVS Snapshot - Addi Bond MD - 11/18/2014 11:59 PM CDT Images from the original note were not included. [facility] [address] [place] [id number] Dept: [phone] [email or web address] Estefania Mckeon 11/18/2014 3:10 PM Hospital Encounter Department: [facility] Oncology Dept Description: Female : 1985 Provider: Natanael Hurd MD Thank you for choosing [facility] for your health care visit with Natanael Hurd MD. We are happy to care for you and provide this summary of your visit. HERE IS WHAT YOU NEED TO KNOW To learn how you can take steps to stay as healthy as you can be visit [email or web address] HERE IS WHAT YOU NEED TO DO Call your clinic if: You develop new symptoms Your symptoms worsen unexpectedly You are not improving as expected You have questions about your visit or medications Your to do list Future Appointments Provider Department Dept Phone 11/19/2014 11:00 AM Shake [facility] [address] [facility] [phone] 11/19/2014 11:15 AM MD Delia Martinez [facility] [phone] 11/20/2014 10:00 AM [facility] 11/29/2014 8:30 AM [facility] 12/03/2014 10:00 AM Shake [facility] [place] [phone] 12/03/2014 10:15 AM MD Delia Martinez [facility] [facility] [phone] 12/13/2014 10:20 AM MD Delia Garcia [address] Obstetrics/Gynecology [phone] 12/17/2014 2:00 PM Shake [facility] [address] [facility] [phone] 12/17/2014 3:00 PM MD Delia Martinez [facility] [facility] [phone] 12/26/2014 9:10 AM [facility] [phone] 12/31/2014 10:45 AM Shake [facility] [address] [facility] [phone] 12/31/2014 11:00 AM Francisca Evans MD [facility] [phone] 01/14/2015 10:45 AM David [facility] [address] [facility] [phone] 01/14/2015 11:15 AM MD Delia Martinez [facility] [facility] [phone] 01/28/2015 10:45 AM David [facility] [address] [facility] [phone] 01/28/2015 11:00 AM Francisca Evans MD [facility] [phone] Future Orders Complete By Ordering Dept. Ferritin [ISAK] As directed [facility] Obstetrics/Gynecology [place] US OB Complete, Cvx As directed [facility] Recurring Lab Work Interval Ordering Dept. [facility] OB US q 2 wks until 11/06/2015 [facility] HERE IS INFORMATION FROM TODAY'S VISIT Reason for Visit Consult anemia Reason for Visit History Health issues considered by your clinician today Iron deficiency anemia If you had any tests that were not discussed during your visit, you will be notified of your results by your clinic. We Performed the Following ONCOLOGY / HEMATOLOGY CONSULT ADULT (AMB) Medications administered today None MEDICATIONS As of today's visit, these are [...] for the next week, then daily thereafter gzsldyy-bnfv-eowzp acid 27-1 mg Tab (Taking) Take 1 tablet by mouth daily (every 24 hours). Vital signs from your visit Your Vital Signs Were BP Pulse Temp(Src) 115/80 (!)110 36.3 ??C (97.3 ??F) (Oral) Height Weight BMI 1.727 m (5' 8) 65.59 kg (144 lb 9.6 oz) 21.99 kg/m2 Last Period Smoking Status 08/11/2014 (Exact Date) Never Smoker Allergies as of 11/18/2014 Benadryl [Diphenhydramine Hcl] 10/03/2014 Shortness Of Breath, Palpitations Amoxicillin 07/28/2010 Allergy LW Reaction: HIVES Immunization History Never Reviewed No immunizations on file. About You Date Of Sex Race Ethnicity Preferred Language 1985 Female White Non- Belgian Smoking Cessation Ready to quit: Not Answered (The patient currently doesn't use any tobacco.) Counseling given: No This document contains confidential information about your health and care. It is provided directlyto you for your personal, private use only. documented in this encounter Plan of Treatment Not on filedocumented as of this encounter Visit Diagnoses Diagnosis KEZIA (iron deficiency anemia) - Primary Iron deficiency anemia, unspecified Iron deficiency anemia Iron deficiency anemia, unspecified documented in this encounter Care Teams Ice House Supervisor Relationship Specialty Start Date End Date Md Lindquist MD PCP - General 08/25/10 07/05/16 [place] [address] documented as of this encounter
--- OUTSIDE RECORDS SUMMARY | 2022-04-25 22:36 | XMS_ITS | Encounter Summary ---
:1985 Author Organization [facility] Address [address] [address] Care Team Providers Name Role Phone Md SOL Lindquist Primary Care Provider Encounter Details Date Type Department Care Team Description 07/15/2010 PN Conversion Only [facility] [address] [place] [address] Social History Tobacco Use Types Packs/Day Years Used Date Smoking Tobacco: Never Assessed Sex Assigned at Date Recorded Not on file documented as of this encounter Plan of Treatment Not on filedocumented as of this encounter Visit Diagnoses Not on filedocumented in this encounter Care Teams Bending Frame Operator Relationship Specialty Start Date End Date Md Lindquist MD PCP - General 08/25/10 07/05/16 [place] [address] documented as of this encounter
--- OUTSIDE RECORDS SUMMARY | 2022-04-25 22:36 | XMS_ITS | Encounter Summary ---
:1985 Author [facility] Address [address] [place] [address] Care Team Providers Name Role Phone Md SOL Lindquist Primary Care Provider Encounter Details Date Type Department Care Team Description 10/18/2014 Lab Visit [facility] Screening for diabetes melli tus; [facility] . Encounter for blood typing; RANGEL Lin [address] screening for isoi mmunization; [phone] Screening for u nspecified disorder of blood and blood-forming organs; Special screeni ng examination for other specified viral diseases; Screening exami nation for venereal disease; Screening exami nation for rubella; Supervision of normal first , first trimester; Screening for o ther hemoglobinopathies Social History Tobacco Use Types Packs/Day Years Used Date Smoking Tobacco: Never Assessed Sex Assigned at Date Recorded Not on file documented as of this encounter Plan of Treatment Not on filedocumented as of this encounter Procedures Procedure Name Priority Date/Time Associated Diagnosis Comme nts URINE MICROSCOPIC Routine 10/18/2014 Results fo r 12:39 PM CDT this procedure are in the results section. URINALYSIS Routine 10/18/2014 Supervision of normal Result s for ROUTINE(MICRO IF POS) 12:39 PM CDT first , fi rst this procedure trimester are in the results section. URINE CULTURE Routine 10/18/2014 Supervision of normal Resul ts for 12:38 PM CDT first , first this procedure trimester are in the results section. BLOOD GROUP & RH (BT) Routine 10/18/2014 Encounter for blood Results for 12:06 PM CDT typing this procedure are in the results section. ANTIBODY SCREEN Routine 10/18/2014 screening for R esults for 12:06 PM CDT isoimmunization this procedu re are in the results section. RUBELLA IGG Routine 10/18/2014 Screening examination Result s for 12:06 PM CDT for rubella this procedure are in the results section. HIV ANTIBODY Routine 10/18/2014 Special screening Results fo r 12:06 PM CDT examination for other this p rocedure specified viral diseases are in the Screening examination result s for venereal disease section . TREPONEMA SCREEN Routine 10/18/2014 Screening examination Re sults for 12:06 PM CDT for venereal disease this pr ocedure are in the results section. HEP B SURFACE ANTIGEN, Routine 10/18/2014 Special screening Results for NO REFLEX 12:06 PM CDT examination for other this p rocedure specified viral diseases are in the Screening examination result s for venereal disease section . HEMOGLOBIN Routine 10/18/2014 Screening for other Results for ELECTROPHORESIS 12:06 PM CDT hemoglobinopathies this p rocedure are in the results section. VITAMIN D 25-HYDROXY, Routine 10/18/2014 Supervision of alla fox Results for TOTAL 12:06 PM CDT first , first this procedure trimester are in the results section. COMPLETE BLOOD Routine 10/18/2014 Screening for Results for COUNT-W/DIFF 12:06 PM CDT unspecified disorder of this procedure blood and blood-forming are in the organs results section. DIFFERENTIAL Routine 10/18/2014 Results for 12:06 PM CDT this procedure are in the results section. HEPATITIS C ANTIBODY, Routine 10/18/2014 Special screening R esults for WITH REFLEX 12:06 PM CDT examination for other this p rocedure specified viral diseases are in the results section. HGB A1C Routine 10/18/2014 Screening for diabetes Resul ts for 12:06 PM CDT mellitus this procedure are in the results section. documented in this encounter Results (ABNORMAL) URINE MICROSCOPIC (10/18/2014 12:39 PM CDT) [facility] Method Time Signature Urine WBC 25-49 (A) 0 - 4 HP CONVERSION /HPF Urine RBC 3-4 (A) 0 - 2 HP CONVERSION /HPF Bacteria Urine Moderate (A) /HPF HP CONVERSIO N Epithelial Few /HPF HP CONVERSION Cells Amorphous Few /HPF HP CONVERSION Crystals Specimen Anatomical Collection Method Collection Time Receive d Time (Source) Location / / Volume Laterality 10/18/2014 12:39 10/18/2014 PM CDT 12:39 PM CDT Narrative HP CONVERSION - 10/18/2014 1:17 PM CDT Performed at [facility], [address] [place] [address] Natanael Rosales MD LAB_1 Performing Organization Address [facility] Phon e Number HP CONVERSION (ABNORMAL) URINALYSIS ROUTINE(MICRO IF POS) (10/18/2014 12:39 PM CDT) [facility] Method Time Signature Urine Type Urine:clean HP CONVERSION cat Turbidity Cloudy (A) Clear HP CONVERSION U BILI Negative Negative HP CONVERSION Blood Urine Negative Negative HP CONVERSION Glucose, Negative Neg-30 HP CONVERSION Qualitative U mg/dL Ketones Negative Negative HP CONVERSION Leukocyte Small (A) Negative HP CONVERSION Esterase Urine Nitrite Urine Positive Negative HP CONVERSION (A) pH Urine 7.5 5.0 - 8.0 HP CONVERSION Protein Urine Negative Neg - Trace HP CONVERSION mg/dL U Specific 1.020 1.005 - HP CONVERSION [place] 1.030 Urobilinogen Negative Negative HP CONVERSION Urine Eu/dL Specimen Anatomical Collection Method Collection Time Receive d Time (Source) Location / / Volume Laterality Urine: 10/18/2014 12:39 10/18/2014 PM CDT 12:39 PM CDT Narrative HP CONVERSION - 10/18/2014 1:17 PM CDT Performed at [facility], [address] [place] [address] Natanael Rosales MD LAB_1 Performing Organization Address City/[facility] Phon e Number HP CONVERSION Urine Culture (10/18/2014 12:38 PM CDT) [employer] Method Time Signature Source Urine HP CONVERSION Site clean catch HP CONVERSION Urine Culture No growth HP CONVERSION Specimen (Source) Anatomical Collection Method Collection Time Re ceived Time Location / / Volume Laterality Urine:clean catch 10/18/2014 12:38 PM CDT Narrative HP CONVERSION - 10/19/2014 12:34 PM CDT Performed at [facility] , ??[address] [place] [address], [place] [address], ?? CLIA Number [id number] Natanael Rosales MD LAB_1 Performing Organization Address City/State/ZIP Code Phon e Number HP CONVERSION Differential (10/18/2014 12:06 PM CDT) athologist Signature Absolute 4.4 1.8 - 8.0 HP CONVERSION Neutrophils k/cmm Absolute 2.0 1.1 - 4.0 HP CONVERSION Lymphocytes k/cmm Absolute 0.7 0.2 - 0.8 HP CONVERSION Monocytes k/cmm Absolute 0.1 0.0 - 0.5 HP CONVERSION Eosinophils k/cmm Absolute 0.0 0.0 - 0.2 HP CONVERSION Basophils k/cmm Specimen Anatomical Collection Method Collection Time Receive d Time (Source) Location / / Volume Laterality 10/18/2014 12:06 10/18/2014 PM CDT 12:06 PM CDT Narrative HP CONVERSION - 10/18/2014 12:29 PM CDT Performed at [facility], [address] [place] [address] Natanael Rosales MD LAB_1 Performing Organization Address City/[facility] Phon e Number HP CONVERSION (ABNORMAL) Vitamin D 25-Hydroxy, Total (10/18/2014 12:06 PM CDT) athologist Signature Vitamin D 25 Oh 8 (L) 20 - 80 HP CONVERSION ng/mL Comment: Deficiency = <20 Adequate ??= 20-29 Preferred = 30-50 Uncertain safety = 51-80 High = >80 Specimen Anatomical Collection Method Collection Time Receive d Time (Source) Location / / Volume Laterality 10/18/2014 12:06 10/18/2014 3:42 PM CDT PM CDT Narrative HP CONVERSION - 10/21/2014 10:47 AM CDT Performed at [address] [address] Natanael Rosales MD LAB_1 Performing Organization Address City/[facility]/ZIP Code Phon e Number HP CONVERSION Hepatitis C Antibody, with Reflex (10/18/2014 12:06 PM CDT) [facility] Method Time Signature Hepatitis C Non-React Non-Reacti HP CONVERSION Antibody ve Specimen Anatomical Collection Method Collection Time Receive d Time (Source) Location / / Volume Laterality 10/18/2014 12:06 10/18/2014 3:42 PM CDT PM CDT Narrative HP CONVERSION - 10/18/2014 5:08 PM CDT Performed at [facility], [facility] [place] [address] Natanael Rosales MD LAB_1 Performing Organization Address [facility] Phon e Number HP CONVERSION Hemoglobin Electrophoresis (10/18/2014 12:06 PM CDT) [facility] Signature Hemoglobin A2 2.5 2.0 - 3.3 % HP CONVERSION Hemoglobin F 0.9 0.0 - 0.9 % HP CONVERSION Hemoglobin A 96.6 95.8 - 98.0 HP CONVERSION % Hemoglobin Variant 0.0 No abnormal HP CONVER CHARANJIT variants % Hgb ELP SEE BELOW HP CONVERSION Interpretation Comment: No electrophoretic evidence of abnormal hemoglobin or beta thalassemia. See comment. Comment: These results do not exclude al pha thalassemia. The vast majority of hemoglobin variants and beta thalassemias are excluded, although some rare clinically significant hemoglobin disorders are chapito ctrophoretically silent. If otherwise unexplained lifelon g/familial symptoms such as hemolysis (i.e. Roberto body hemol ytic anemia), microcytosis, erythrocytosis, cyanosis, or hypoxia are present and additional testing is desire d, please call the [facility] ([phone]). If alpha thalassemia is a consideration, alpha globin gene deletion/duplication analysis is availab le (Alpha Globin Gene Analysis, test ID [id number], order [id number]). Additional sample required. Specimen Anatomical Collection Method Collection Time Receive d Time (Source) Location / / Volume Laterality 10/18/2014 12:06 10/18/2014 3:15 PM CDT PM CDT Narrative HP CONVERSION - 10/20/2014 5:10 AM CDT Performed at [facility] [address] [place] [address] Natanael Rosales MD LAB_1 Performing Organization Address [facility] Phon e Number HP CONVERSION (ABNORMAL) RUBELLA IGG (10/18/2014 12:06 PM CDT) Analysis Performed At [facility] logist Time Signature Rubella IgG Not Immune Immune HP CONVERSION (A) Specimen Anatomical Collection Method Collection Time Receive d Time (Source) Location / / Volume Laterality 10/18/2014 12:06 10/18/2014 3:42 PM CDT PM CDT Narrative HP CONVERSION - 10/21/2014 10:47 AM CDT Performed at [facility], [address] [place] [address] Natanael Rosales MD LAB_1 Performing Organization Address [facility] Phon e Number HP CONVERSION Treponema Screen (10/18/2014 12:06 PM CDT) Patholo gist Method Time Signature Treponema Non Reactive Non Reactive HP CONVERSION Screen Specimen Anatomical Collection Method Collection Time Receive d Time (Source) Location / / Volume Laterality 10/18/2014 12:06 10/18/2014 3:42 PM CDT PM CDT Narrative HP CONVERSION - 10/21/2014 10:47 AM CDT Performed at [facility], [address] [place] [address] Natanael Rosales MD LAB_1 Performing Organization Address [facility] Phon e Number HP CONVERSION HIV ANTIBODY (10/18/2014 12:06 PM CDT) P athologist Signature HIV 1/HIV 2 Non-React Non-Reacti HP CONVERSION ve Specimen Anatomical Collection Method Collection Time Receive d Time (Source) Location / / Volume Laterality 10/18/2014 12:06 10/18/2014 3:42 PM CDT PM CDT Narrative HP CONVERSION - 10/18/2014 11:43 PM CDT Performed at [facility], [address] [place] [address] Natanael Rosales MD LAB_1 Performing Organization Address City/[facility] Phon e Number HP CONVERSION Hep B Surface Antigen, No Reflex (10/18/2014 12:06 PM CDT) Analysis Performed At Patho logist Time Signature Hep B Surf Ag Negative Negative HP CONVERSION Specimen Anatomical Collection Method Collection Time Receive d Time (Source) Location / / Volume Laterality 10/18/2014 12:06 10/18/2014 3:42 PM CDT PM CDT Narrative HP CONVERSION - 10/18/2014 5:08 PM CDT Performed at [facility], [address] [place], [place] [address] Nataanel Rosales MD LAB_1 Performing Organization Address City/[facility]/ZIP Code Phon e Number HP CONVERSION Complete Blood Count W/Diff (10/18/2014 12:06 PM CDT) athologist Signature White Blood Cell 7.2 3.8 - 11.0 HP CONVERSIO N Count k/cmm Red Blood Cell 4.42 3.70 - HP CONVERSION Count 5.20 m/cmm Hemoglobin 13.1 11.8 - HP CONVERSION 15.5 g/dL Hematocrit 39.5 35.0 - HP CONVERSION 46.0 % Mean Corpuscular 89.4 80.0 - HP CONVERSION Volume 100.0 fL RDW 12.3 11.0 - HP CONVERSION 15.0 % Platelet Count 210 140 - 450 HP CONVERSION k/cmm Specimen Anatomical Collection Method Collection Time Receive d Time (Source) Location / / Volume Laterality 10/18/2014 12:06 10/18/2014 PM CDT 12:06 PM CDT Narrative HP CONVERSION - 10/18/2014 12:29 PM CDT Performed at [address] [address] Natanael Rosales MD LAB_1 Performing Organization Address City/[facility] Phon e Number HP CONVERSION ANTIBODY SCREEN (10/18/2014 12:06 PM CDT) athologist Signature Antibody Screen NEG HP CONVERSION Specimen Anatomical Collection Method Collection Time Receive d Time (Source) Location / / Volume Laterality 10/18/2014 12:06 10/18/2014 3:42 PM CDT PM CDT Narrative HP CONVERSION - 10/18/2014 5:08 PM CDT Performed at [address] [address] Natanael Rosales MD PN BLOOD BANK ORDERS Performing Organization Address City/[facility]/ZIP Code Phon e Number HP CONVERSION BLOOD GROUP & RH (BT) (10/18/2014 12:06 PM CDT) athologist Signature Blood Type O POS HP CONVERSION Specimen Anatomical Collection Method Collection Time Receive d Time (Source) Location / / Volume Laterality 10/18/2014 12:06 10/18/2014 3:42 PM CDT PM CDT Narrative HP CONVERSION - 10/18/2014 5:08 PM CDT Performed at [facility], [address] [place] [address] Natanael Rosales MD PN BLOOD BANK ORDERS Performing Organization Address [facility] Phon e Number HP CONVERSION Hgb A1c (10/18/2014 12:06 PM CDT) athologist Signature HGB A1C 5.1 4.0 - 5.6 % HP CONVERSION Specimen Anatomical Collection Method Collection Time Receive d Time (Source) Location / / Volume Laterality 10/18/2014 12:06 10/18/2014 3:42 PM CDT PM CDT Narrative HP CONVERSION - 10/18/2014 10:55 PM CDT Performed at [facility], [address] [place] [address] Natanael Rosales MD LAB_1 Performing Organization Address [facility] Phon e Number HP CONVERSION documented in this encounter Visit Diagnoses Diagnosis Screening for diabetes mellitus Encounter for blood typing screening for isoimmunization Screening for unspecified disorder of bl ood and blood-forming organs Special screening examination for other specified viral diseases Screening examination for venereal disea se Screening examination for rubella Supervision of normal first , f irst trimester Screening for other hemoglobinopathies documented in this encounter Care Teams Financial Engineer Relationship Specialty Start Date End Date Md Lindquist MD PCP - General 08/25/10 07/05/16 [place] [address] documented as of this encounter
--- OUTSIDE RECORDS SUMMARY | 2022-04-25 22:36 | XMS_ITS | Encounter Summary ---
:1985 Author Organization [facility] [employer] Address [address] [place] [address] Care Team Providers Name Role Phone Md SOL Lindquist Primary Care Provider Encounter Details Date Type Department Care Team Description 11/04/2014 Notes/[facility]ders [facility] 3931 Linda Moy of normal subsequent , first trimester (Primary Dx); Maternal Kylah Webb [facility] First trimester screening Medicine [facility] [facility] [facility] [address] [place] [id number] [phone] Social History Tobacco Use Types Packs/Day Years Used Date Smoking Tobacco: Never Assessed Sex Assigned at Date Recorded Not on file documented as of this encounter Plan of Treatment Not on filedocumented as of this encounter Visit Diagnoses Diagnosis Supervision of normal subsequent pregnan cy, first trimester - Primary First trimester screening Other specified screening documented in this encounter Care Teams Rouge Sifter Relationship Specialty Start Date End Date Md Lindquist MD PCP - General 08/25/10 07/05/16 [place] [address] documented as of this encounter
--- OUTSIDE RECORDS SUMMARY | 2022-04-25 22:36 | XMS_ITS | Encounter Summary ---
:1985 Author Organization [employer] Address [address], [place] [address] Care Team Providers Name Role Phone Md SOL Lindquist Primary Care Provider Reason for Visit Reason Comments Infusion Encounter Details Date Type Department Care Team Description 11/29/2014 Hospital Encounter [facility] Janis Rabago, KEZIA (iron deficiency Center anemia) [address] [address] [place] [address] [phone] Social History Tobacco Use Types Packs/Day Years Used Date Smoking Tobacco: Never Assessed Sex Assigned at Date Recorded Not on file documented as of this encounter Last Filed Vital Signs Vital Sign Reading Time Taken Comments Blood Pressure 96/62 11/29/2014 8:34 AM CDT Pulse 99 11/29/2014 8:34 AM CDT Temperature 36.3 ??C (97.3 ??F) 11/29/2014 8:34 AM CDT Respiratory Rate - - Oxygen Saturation 98% 11/29/2014 8:34 AM CDT Inhaled Oxygen Concentration - - Weight 64.9 kg (143 lb) 11/29/2014 8:34 AM CDT Height - - Body Mass Index 21.74 11/18/2014 3:24 PM CDT documented in this encounter Medications at Time of Discharge Medication Sig Dispensed Refills Start Date End Date cetirizine (aka zyRTEC) Take 10 mg by [...] encounter Progress Notes Dahlia Irvin RN - 11/29/2014 10:32 AM CDT Pt. her for her second and last iron infusion. She states she is feeling well and has no c/o's at this time. She tolerated her infusion well and is not scheduled to return for ant further treatments atthis time. documented in this encounter Miscellaneous Notes Medication History - Addi Bond MD - 11/29/2014 11:59 PM CDT Infusion Synopsis from 11-20-2014 to 11-29-2014 SUPPORTIVE CARE MEDS IRON SUCROSE (VENOFER) IV Date Dose User 11-29-2014 08:52 AM 200 mg Dahlia Irvin RN 11-20-2014 10:45 AM 200 mg Dahlia Irvin RN Medication History - Addi Bond MD - 11/29/2014 11:59 PM CDT INPATIENT MEDS Encounter Date: 11/29/14 0.9% sodium chloride latex free syringe 20 mL Start Date:11/29/14, End Date:11/29/14, Frequency:PRN *No Administrations Recorded 0.9% sodium chloride flush 500 mL Start Date:11/29/14, End Date:11/29/14, Frequency:ONCE Taken Dose Action User Route Site Recorded Comment Reason 11/29/14 0955 500 mL Infused Dahlia Irvin RN Intravenous - 11/29/141056 - - 11/29/1452 500 mL Started Dahlia Irvin RN Intravenous - 11/29/1452 - - iron sucrose (VENOFER) 200 mg in 0.9% sodium chloride 100 mL infusion Start Date:11/29/14, End Date:11/29/14, Frequency:ONCE Taken Dose Action User Route Site Recorded Comment Reason 11/29/14 0952 200 mg Infused Dahlia Irvin RN Intravenous - 11/29/141056 - - 11/29/14 0852 200 mg Started Dahlia Irvin RN Intravenous - 11/29/14851 - - MR AVS Snapshot - Addi Bond MD - 11/29/2014 11:59 PM CDT Images from the original note were not included. [facility] [place] [address] [place] [address] [email or web address] Estefania Mckeon 11/29/2014 8:30 AM Hospital Encounter Department: [facility] Dept Phone: Description: Female : 1985 Provider: ANGELA CLEARY Thank you for choosing [facility] for your health care visit with ANGELA CLEARY. We are happy to care for you and provide this summary of your visit. HERE IS WHAT YOU NEED TO KNOW To learn how you can take steps to stay as healthy as you can be visit [email or web address] HERE IS WHAT YOU NEED TO DO Call your clinic if: You develop new symptoms Your symptoms worsen unexpectedly You are not improving as expected You have questions about your visit or medications Your to do list Future Appointments Provider Department Dept Phone 12/03/2014 10:00 AM VASILIY Thomas5 Clinic [phone] 12/03/2014 10:15 AM MD Delia Martinez 1515 Clinic [phone] 12/13/2014 10:20 AM MD Delia Garcia 1515 Obstetrics/Gynecology [phone] 12/17/2014 2:00 PM [facility]KE [place] [facility] [address] [place] [facility] [phone] 12/17/2014 3:00 PM Tomy Parmar MD [place] [address] Clinic [phone] 12/26/2014 9:10 AM LAB, [facility] [phone] 12/31/2014 10:45 AM [facility] [place] US [address] [place] [facility] [phone] 12/31/2014 11:00 AM Francisca Evans MD [place] [address] Clinic [phone] 01/14/2015 10:45 AM [facility] [place] US [address] [place] [facility] [phone] 01/14/2015 11:15 AM Francisca Evans MD [place] [address] Clinic [phone] 01/28/2015 10:45 AM SHAKE [place] US 1 [place] [address] Clinic [phone] 01/28/2015 11:00 AM Francisca Evans MD [place] [address] Clinic [phone] Future Orders Complete By Ordering Dept. Ferritin [ISAK] As directed [place] [address] Obstetrics/Gynecology [facility] US OB Complete, Cvx As directed [place] [address] Clinic Recurring Lab Work Interval Ordering Dept. [place] US Transvaginal, Ltd OB US q 2 wks until 11/06/2015 [place] [address] Clinic HERE IS INFORMATION FROM TODAY'S VISIT Reason for Visit Infusion Venofer Reason for Visit History Health issues considered by your clinician today KEZIA (iron deficiency anemia) If you had any tests that were not discussed during your visit, you will be notified of your results by your clinic. Medications administered today Administered Action 0.9% sodium chloride flush 500 mL 11/29/2014 Started Administered Action iron sucrose (VENOFER) 200 mg in 0.9% sodium chloride 100 mL infusion 11/29/2014 Started MEDICATIONS As of today's visit, these are your current medications DOSAGE cetirizine (ZYRTEC) 10 mg tablet Take 10 mg by mouth daily (every 24 hours). cholecalciferol (VITAMIN D) 1,000 unit tablet Take 2 tablets by mouth daily (every 24 hours). take two tablets daily for the next week, then daily thereafter liravck-vmlc-onuef acid 27-1 mg Tab Take 1 tablet by mouth daily (every 24 hours). Vital signs from your visit Your Vital Signs Were BP Pulse Temp(Src) Weight SpO2 Last Period 96/62 mmHg 99 97.4 ??F (36.3 ??C) (Oral) 143 lb (64.864 kg) 98% 08/11/2014 (Exact Date) Smoking Status Never Smoker Allergies as of 11/29/2014 Benadryl [Diphenhydramine Hcl] 10/03/2014 Shortness Of Breath, Palpitations Amoxicillin 07/28/2010 Allergy LW Reaction: HIVES Immunization History Never Reviewed No immunizations on file. About You Date Of Sex Race Ethnicity Preferred Language 1985 Female White Non- [place] This document contains confidential information about your health and care. It is provided directlyto you for your personal, private use only. documented in this encounter Plan of Treatment Not on filedocumented as of this encounter Visit Diagnoses Diagnosis KEZIA (iron deficiency anemia) Iron deficiency anemia, unspecified documented in this encounter Care Teams Child Care Specialist Relationship Specialty Start Date End Date Md Lindquist MD PCP - General 08/25/10 07/05/16 [place] [address] documented as of this encounter
--- OUTSIDE RECORDS SUMMARY | 2022-04-25 22:36 | XMS_ITS | Encounter Summary ---
:1985 Author Organization [employer] Address [address] [place] [address] Care Team Providers Name Role Phone Md SOL Lindquist Primary Care Provider Reason for Visit Reason Comments Routine Visit Encounter Details Date Type Department Care Team Description 11/15/2014 Routine [place] 1515 Wanda Guallpa Routi ne Obstetrics/Gynecolog MD Visit y 1515 [facility] [address] [place] [address] [place] [address] [phone] Social History Tobacco Use Types Packs/Day Years Used Date Smoking Tobacco: Never Assessed Sex Assigned at Date Recorded Not on file documented as of this encounter Last Filed Vital Signs Vital Sign Reading Time Taken Comments Blood Pressure 100/64 11/15/2014 3:04 PM CDT Pulse - - Temperature - - Respiratory Rate - - Oxygen Saturation - - Inhaled Oxygen Concentration - - Weight 66 kg (145 lb 6.4 oz) 11/15/2014 3:04 PM CDT Height - - Body Mass Index 22.11 10/18/2014 11:09 AM CDT documented in this encounter Progress Notes Wanda Guallpa MD - 11/18/2014 10:12 AM CDT visit. Patient reports back pain and was seen in ED. Diagnosed with UTI and is getting an antibiotic filled.. No bleeding. Still some nausea. Follow-up in 4 weeks with . 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 Has distant history of severe iron deficiency anemia. Is seeing bradley linebacker crewmember next week. documented in this encounter Plan of Treatment Not on filedocumented as of this encounter Visit Diagnoses Diagnosis Bicornuate uterus affecting , a ntepartum, first trimester - Primary documented in this encounter Care Teams Aircraft Instrument Engineer Relationship Specialty Start Date End Date Md Lindquist MD PCP - General 08/25/10 07/05/16 [place] [address] documented as of this encounter
--- OUTSIDE RECORDS SUMMARY | 2022-04-25 22:36 | XMS_ITS | Encounter Summary ---
:1985 Author Organization [email or web address] Address [address] [place] [address] Care Team Providers Name Role Phone Md SOL Lindquist Primary Care Provider Encounter Details Date Type Department Care Team Description 11/19/2014 Imaging [place] Maternal Bico rnuate uterus affecting Medicine , antepartum, [address] unspecified trimester [place] [address] Social History Tobacco Use Types Packs/Day Years Used Date Smoking Tobacco: Never Assessed Sex Assigned at Date Recorded Not on file documented as of this encounter Plan of Treatment Not on filedocumented as of this encounter Procedures Procedure Name Priority Date/Time Associated Diagnosis Comme nts [facility] US Routine 11/19/2014 11:15 AM Bicornuate uterus Res ults for this TRANSVAGINAL, LTD CDT affecting , pr ocedure are in OB US antepartum, the results unspecified section. trimester documented in this encounter Results [place] US Transvaginal, Ltd OB US (11/19/2014 11:15 AM CDT) Anatomical Region Laterality Modality Pelvis Other Specimen (Source) Anatomical Location Collection Method / Collectio n Time Received Time / Laterality Volume Impressions 11/19/2014 11:29 AM CDT : ?? Intrauterine , 14+2/7 ??wee ks gestation ?? Stable cervical length Francisca Evans MD <Electronic Signature> ??11/19/2014 11:2 9am Narrative 11/19/2014 11:29 AM CDT ? [facility] ?[place] ??[address] ? Phone: ?Offices: [facility] [place] [facility]. Name: ESTEFANIA MCKEON ?Location of [place] [facility]. No: ?? [id number] ?Study Date: ?? 11/19/2014 ??11:19am LMP: ? 08/11/2014 ?Referring MD: Wanda Guallpa MD 2708 GA by LMP: 14w2d ? Tube Cutter Operator: ??Heather Guzman RDMS GA by 1st: 14w2d ? , Age: ? 1985, 29 Hist/Ind: ??Bicornuate uterus seen on ou tside ? Sonohysterogram ? Severe Iron Deficiency ? Increased AFP 3.46 MOM o n First Trimester Screening ? Transvaginal Cervix ? Pregnancies: ?? 2, Para 0010 ? GA Selected: ??14w2d (From First S) ? CHERI: ?05/18/2015 CLINICAL SUMMARY A Transvaginal and Limited Ultrasound wa s done. TYPE OF GESTATION: ?? Holliday PRESENTATION OF FETUS: Vertex PLACENTA: ??Posterior HEART: ?? heart motion is kei ntified CERVIX: ??The cervix measures 4.6 cms in length by transvaginal scan. ??There is no funnel seen. ? There is no change with fundal pr essure Procedure Note Francisca Evans MD - 01/19/2016 [place] [address] Fax: Offices: [facility] [place]. Name: ESTEFANIA MCKEON [facility]. No: [id number] Study Date: 11/19/2014 11:19am LMP: 08/11/2014 Referring MD: Wanda Guallpa MD [id number] GA by LMP: 14w2d Tube Cutter Operator: Heather Guzman RDMS GA by 1st: 14w2d , Age: 1 1985, [age] Hist/Ind: Bicornuate uterus seen on outs kei Sonohysterogram Severe Iron Deficiency Increased AFP 3.46 MOM on First Trimest er Screening Transvaginal Cervix Pregnancies: 2, Para 0010 GA Selected: 14w2d (From First S) CHERI: 05/18/2015 CLINICAL SUMMARY A Transvaginal and Limited Ultrasound wa s done. TYPE OF GESTATION: Holliday PRESENTATION OF FETUS: Vertex PLACENTA: Posterior HEART: heart motion is ident ified CERVIX: The cervix measures 4.6 cms in l ength by transvaginal scan. There is no funnel seen. There is no change with fundal pressure IMPRESSION : Intrauterine , 14+2/7 weeks [facility] Stable cervical length Francisca Evans MD <Electronic Signature> 11/19/2014 11:29a m Francisca Evans MD RAD [place] US documented in this encounter Visit Diagnoses Diagnosis Bicornuate uterus affecting , a ntepartum, unspecified trimester documented in this encounter Care Teams Bone Density Technician Relationship Specialty Start Date End Date Md Lindquist MD PCP - General 08/25/10 07/05/16 [place] [address] documented as of this encounter
--- OUTSIDE RECORDS SUMMARY | 2022-04-25 22:36 | XMS_ITS | Encounter Summary ---
:1985 Author Organization [employer] Address [address], [place] [address] Care Team Providers Name Role Phone Md SOL Lindquist Primary Care Provider Reason for Visit Reason Comments Back Pain Encounter Details Date Type Department Care Team Description 11/15/2014 Nurse Triage [facility] Md Lexa, Back Pain [address] [place] [address] [place] [address] [phone] Social History Tobacco Use Types Packs/Day Years Used Date Smoking Tobacco: Never Assessed Sex Assigned at Date Recorded Not on file documented as of this encounter Nursing Notes Alexandria Pederson RN - 11/15/2014 10:42 AM CDT Protocol: - BACK RIST-GHYSE-YT Affirmative: Pain or burning with urination Disposition of See Physician Within 4 Hours (Or PCP Triage) suggested. Patient states that she has known kidney stones. Patient reports that she has right lower back pain that radiates to her groin. Pain started during the night 11/14/14. Denies fever or blood in urine. Denies abnormal vaginal discharge or bleeding. Urine is yellow and cloudy, occasionally has dysuria. Patient is 14 weeks . Patient unable to schedule an appointment, she is driving from out of town. She does have an OB appointment this afternoon. Patient agrees to go to urgent care right away if symptoms worsen or can not be addressed at OB appointment today. Future Appointments Date Time Provider Department Center 11/15/2014 3:00 PM Wanda Guallpa MD SHAKE OBG SHAKE 11/18/2014 3:10 PM Natanael Hurd MD [facility] ONC [facility] 11/19/2014 11:00 AM Shake [place] Us 2 SHAKE PER SHAKE 11/19/2014 11:15 AM Francisca Evans MD SHAKE PER SHAKE 12/03/2014 10:00 AM Shake [place] [facility] 2 SHAKE PER SHAKE 12/03/2014 10:15 AM Francisca Evans MD SHAKE PER SHAKE 12/17/2014 2:00 PM Shake [place] 2 SHAKE PER SHAKE 12/17/2014 3:00 PM Francisca Evans MD SHAKE PER SHAKE 12/31/2014 10:45 AM Shake [place] Us 2 SHAKE PER SHAKE 12/31/2014 11:00 AM Francisca Evans MD SHAKE PER SHAKE 01/14/2015 10:45 AM Shake [place] 2 SHAKE PER SHAKE 01/14/2015 11:15 AM Francisca Evans MD SHAKE PER SHAKE 01/28/2015 10:45 AM Shake [place] [facility] 2 SHAKE PER SHAKE 01/28/2015 11:00 AM Francisca Evans MD SHAKE PER SHAKE Maribell Enrique - 11/15/2014 10:26 AM CDT Pt. states she is having low back pain and is . Pt. has concerns about kidneys. documented in this encounter Plan of Treatment Not on filedocumented as of this encounter Visit Diagnoses Not on filedocumented in this encounter Care Teams Cashier Office Relationship Specialty Start Date End Date Md Lindquist MD PCP - General 08/25/10 07/05/16 [place] [address] documented as of this encounter
--- OUTSIDE RECORDS SUMMARY | 2022-04-25 22:36 | XMS_ITS | Encounter Summary ---
:1985 Author Organization [facility] Address [address] [place] [address] Care Team Providers Name Role Phone Md SOL Lindquist Primary Care Provider Encounter Details Date Type Department Care Team Description 12/17/2014 Lab Visit [place] [facility] Personal history of urinary [address] (tract) infection [place] [address] Social History Tobacco Use Types Packs/Day Years Used Date Smoking Tobacco: Never Assessed Sex Assigned at Date Recorded Not on file documented as of this encounter Plan of Treatment Not on filedocumented as of this encounter Procedures Procedure Name Priority Date/Time Associated Diagnosis Comme nts URINE CULTURE Routine 12/17/2014 2:13 PM Personal history of R esults for this CDT urinary (tract) procedure ar e in the infection results section . documented in this encounter Results (ABNORMAL) Urine Culture (12/17/2014 2:13 PM CDT) [facility] Method Time Signature Source Urine HP CONVERSION Site clean catch HP CONVERSION Urine Culture (A) HP CONVERSION Urine Culture ESCHERICHIA HP CONVERSION COLI (A) Comment: Escherichia coli >100,000 cfu/ml ... For symptomatic patients, correlate cult ure results in context of clinical findings. Screening for and treatment of asymptomatic bacteriuria in adults 18 years and older is not recommended for the following per sons: premenopausal non women, diabetic women, elder ly persons, persons with spinal cord injury and catheterized patients. In general, asymptomatic bacteriuria cordova s not need treatment, except in or in pat ients anticipating urologic surgery. ... (See Infectious Disease Society of Ameri ca guidelines for additional information) ... http://jesse.oxfordjournals.org/content/40 /5/643.full.pdf ... Specimen (Source) Anatomical Collection Method Collection Time Re ceived Time Location / / Volume Laterality Urine:clean catch 12/17/2014 2:13 PM CDT Narrative HP CONVERSION - 12/19/2014 8:11 AM CDT Performed at [facility] , ??[address] [place] [address], ?? CLIA Number [id number] Organism Antibiotic Method Susceptibility Escherichia coli Amoxicillin/Clavulanic Acid <=2 mcg/mL: Sensitive Escherichia coli Ampicillin 8 mcg/mL: Sensi tive Escherichia coli Ampicillin/Sulbactam 4 mcg/mL: Sensitive Escherichia coli Cefazolin <=4 mcg/mL: Sen sitive Escherichia coli Ceftazidime <=1 mcg/mL: Sen sitive Escherichia coli Ceftriaxone <=1 mcg/mL: Sen sitive Escherichia coli Ciprofloxacin <=0.25 mcg/mL: Sensitive Escherichia coli Ertapenem <=0.5 mcg/mL: S ensitive Escherichia coli Gentamicin <=1 mcg/mL: Sen sitive Escherichia coli Imipenem <=0.25 mcg/mL: Sensitive Escherichia coli Nitrofurantoin <=16 mcg/mL: Se nsitive Escherichia coli Piperacillin/Tazobactam <=4 mcg /mL: Sensitive Escherichia coli Tobramycin <=1 mcg/mL: Sen sitive Escherichia coli Trimethoprim/Sulfamethoxazole < =20 mcg/mL: Sensitive Wanda Guallpa MD LAB_1 Performing Organization Address City/State/[facility] Phon e Number HP CONVERSION documented in this encounter Visit Diagnoses Diagnosis Personal history of urinary (tract) infe ction documented in this encounter Care Teams Benefits Representative Relationship Specialty Start Date End Date Md Lindquist MD PCP - General 08/25/10 07/05/16 [place] [address] documented as of this encounter
--- OUTSIDE RECORDS SUMMARY | 2022-04-25 22:36 | XMS_ITS | Encounter Summary ---
:1985 Author Organization [email or web address] Address [address] [place] [address] Care Team Providers Name Role Phone Md SOL Lindquist Primary Care Provider Reason for Visit Reason Comments Other Encounter Details Date Type Department Care Team Description 08/14/2010 Telephone Utility Funding 1519 [facility], Message Other [address] [facility] . [place] [id number] Social History Tobacco Use Types Packs/Day Years Used Date Smoking Tobacco: Never Assessed Sex Assigned at Date Recorded Not on file documented as of this encounter Progress Notes Serenity Tang LPN - 08/14/2010 10:12 AM CDT LM for pt. to call back for test results. A lab letter was returned, unable to deliver. Pt needs to be seen for a colpo. Her pap was abnormal Created on 14Aug2010 10:12am by SERENITY TANG On 17Aug2010 10:22am DESHAWN MENDEZ wrote: Pt is scheduled for 08/28/10 for Colpo. Note complete. documented in this encounter Plan of Treatment Not on filedocumented as of this encounter Visit Diagnoses Not on filedocumented in this encounter Care Teams Communications Superintendent Relationship Specialty Start Date End Date Md Lindquist MD PCP - General 08/25/10 07/05/16 [place] [address] documented as of this encounter
--- OUTSIDE RECORDS SUMMARY | 2022-04-25 22:36 | XMS_ITS | Encounter Summary ---
:1985 Author Organization [employer] Address [address] [place] [address] Care Team Providers Name Role Phone Md SOL Lindquist Primary Care Provider Reason for Visit Reason Comments INITIAL VISIT Encounter Details Date Type Department Care Team Description 10/18/2014 Initial [place] 1515 Natanael Rosales INITIAL Obstetrics/Gynecolog MD Nicanor VISIT y 1515 [facility] [address] [place] [address] [place] [address] [phone] Social History Tobacco Use Types Packs/Day Years Used Date Smoking Tobacco: Never Assessed Sex Assigned at Date Recorded Not on file documented as of this encounter Last Filed Vital Signs Vital Sign Reading Time Taken Comments Blood Pressure 100/70 10/18/2014 11:09 AM CDT Pulse - - Temperature - - Respiratory Rate - - Oxygen Saturation - - Inhaled Oxygen Concentration - - Weight 65.8 kg (145 lb 1.6 oz) 10/18/2014 11:09 AM CDT Height 172.7 cm (5' 8) 10/18/2014 11:09 AM CDT Body Mass Index 22.06 10/18/2014 11:09 AM CDT documented in this encounter Progress Notes Natanael Rosales MD - 10/18/2014 5:49 PM CDT NEW OB HISTORY AND PHYSICAL HPI: The patient is a 29-year-old female, , LMP:08/11/2014 She presents for a new OB history and physical. Prior to conception, she had cycles every 28 days. Seen on 10/03/2014 - see Dr Gates' notes. Currently, she is complaining of nausea. Obstetric History T0 TAB0 SAB1 E0 M0 L0 # Outcome Date GA Lbr Mic/2nd Weight Sex Delivery Anes PTL Lv 2 Current 1 SAB 07/22/11 Past Medical History Diagnosis Date ??? Pap smear abnormality of cervix ??? Blood transfusion, without reported diagnosis ??? Varicella ??? Bicornuate uterus ??? Kidney stones Past Surgical History Procedure Laterality Date ??? [place] tooth extraction ??? Hx appendectomy 1998 ??? Cystoscopy 2004 [place] stones Family History Problem Relation Age of Onset ??? Spont Abortions Mother ??? Crohn's Disease Mother ??? Diabetes Father ??? High Cholesterol Father ??? Heart Disease Maternal Grandfather ??? Cancer, Breast Paternal Grandmother Allergies: Allergies Allergen Reactions ??? Benadryl [Diphenhydramine Hcl] Shortness Of Breath and Palpitations ??? Amoxicillin LW Reaction: HIVES History Social History ??? Marital Status: Single Spouse Name: N/A Number of Children: N/A ??? 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 Smoking status: Passive Smoke Exposure - Never Smoker ??? Smokeless tobacco: Never Used ??? Alcohol Use: No Comment: Alcoholic Drinks/day: Freq:2-4/Month ; ??? Drug Use: No ??? Sexual Activity: Partners: Male Other Topics Concern ??? Bike Helmet No ??? City Water Yes ??? Exercise No ??? Guns In Home No ??? Seat Belt Yes ??? Special Diet No ??? Weight Concern No Social History Narrative GENETIC SCREEN/TERATOLOGY COUNSELING: Reviewed and offered testing including first trimester screen, quad screen and cystic fibrosis testing. REVIEW OF SYSTEMS: See HPI. PHYSICAL EXAM: Filed Vitals: 10/18/14 1109 BP: 100/70 Height: 5' 8 (1.727 m) Weight: 145 lb 1.6 oz (65.817 kg) Body mass index is 22.07 kg/(m^2). GENERAL: 29 YOF in NAD, alert and oriented x 3 NECK: Supple. No thyromegaly or adenopathy. CARDIOVASCULAR: Regular rate and rhythm, no murmurs. LUNGS: Clear to auscultation, bilaterally. BACK: Spine straight, no CVA tenderness BREASTS: Symmetric bilaterally, no masses bilaterally, no discharge bilaterally ABDOMEN: Soft. Non distended. Non tender. PELVIC: External Genitalia - WNL BUS - no infection Vagina - clear, no lesions Cervix - PAP, GC, Chlamydia, closed Uterus - soft, anterior, 9 week size, non tender Adnexa - clear bilaterally FHT's - not heard EXTREMITIES: Show no peripheral edema. DTR's - 2+/4+ Brief bedside ultrasound performed, confirming the presence of a viable intrauterine . heart motion seen. IMPRESSION: 29-year-old female , female here for new OB history and physical. Bicornuate Uterus PLAN: 1. New OB labs - ordered 2. MFM consultation scheduled - 11/05/2014 3. Discussed routine care, as well as labor and delivery coverage and schedule of appointments. 4. Discussed routine blood tests, as well as optional tests, including cystic fibrosis, First Trimester Screening, and maternal quad screening. 5. Routine counseling done including diet, exercise, seat belts, [facility] and contact numbers for problems and concerns. 6. Patient to return in [address] Guallpa for next visit. Call if any questions or concerns. Natanael Rosales MD 11:35 AM 10/18/2014 Total Time: 25 minutes Counseling Time: 15 minutes documented in this encounter Plan of Treatment Not on filedocumented as of this encounter Procedures Procedure Name Priority Date/Time Associated Diagnosis Comme nts ANATOMICAL PATH Routine 10/18/2014 2:36 PM Result s for this LIQUID BASED CDT procedure are i n the results section. PAP SMEAR ORDER Routine 10/18/2014 2:36 PM Screening for Resul ts for this CDT malignant neoplasm procedure are in of the cervix the results section. CHLAMYDIA & GC (14 Routine 10/18/2014 2:36 PM Screening Res ults for this YEARS AND OLDER) CDT examination for procedur e are in venereal disease the results section. documented in this encounter Results Chlamydia & GC (10/18/2014 2:36 PM CDT) [facility] gist Method Time Signature Chlamydia Negative Negative HP CONVERSION Trachomatis STD Comment: Test Performed by Denture Processor Mediated Amplification CLIA Number [id number] N. gonorrhoeae STD Negative Negative HP CONVERSI ON Comment: Test Performed by Denture Processor Mediated Amplification Performed at [facility], [address] ??[address] CLIA Number [id number] Source STD Cervix HP CONVERSION Comment: CLIA Number [id number] Specimen Anatomical Collection Method Collection Time Receive d Time (Source) Location / / Volume Laterality 10/18/2014 2:36 PM 5 CDT 10:30 PM CDT Natanael Rosales MD LAB_1 Performing Organization Address City/State/ZIP Code Phon e Number HP CONVERSION Pap Smear (10/18/2014 2:36 PM CDT) Specimen (Source) Anatomical Collection Method Collection Time Re ceived Time Location / / Volume Laterality 10/18/2014 2:36 PM CDT Narrative HP CONVERSION - 10/25/2014 1:44 PM CDT Performed at [address] [address] FINAL GYNECOLOGICAL CYTOLOGY REPORT Pathology #: [id number] ?Date Obtained: 10/18/2014 ? Date Received: 10/21/2014 INTERPRETATION/RESULTS: Negative for Intraepithelial Lesion or M alignancy. SPECIMEN ADEQUACY: Satisfactory for Evaluation. ??Endocervi aminta cells/transformation zone component present. Verified on 10/25/2014 ??by CAITLIN FRAZIER MD (electronic signature) CLINICAL NOTES: ?Abnormal bleeding: No, LMP: , Current form of therapy: ?No LIQUID BASED PAP SMEAR SPECIMEN TYPE: ?CERVICAL WITH REFLEX TO HPV IF ASCUS PLEASE NOTE: The pap smear is a screening test design ed to aid in the detection of cervical cancer and its pre cursor lesions. It is not a diagnostic procedure and marizol uld not be used as the sole means of detecting cervical cancer. Both false-positive and false-negative report s may occur. ? End of Report Natanael Rosales MD LAB_1 Performing Organization Address City/[facility] Phon e Number HP CONVERSION Pap Smear Order (10/18/2014 2:36 PM CDT) [facility] Method Time Signature Pap Smear Collected HP CONVERSION Monolayer tracking test Specimen Anatomical Collection Method Collection Time Receive d Time (Source) Location / / Volume Laterality 10/18/2014 2:36 PM 5 5:32 CDT AM CDT Narrative HP CONVERSION - 10/25/2014 1:39 PM CDT Performed at [address] [address] Natanael Rosales MD LAB_1 Performing Organization Address [facility] Phon e Number HP CONVERSION documented in this encounter Visit Diagnoses Diagnosis Bicornuate uterus affecting , a ntepartum, first trimester - Primary Supervision of normal first , f irst trimester Screening for diabetes mellitus Encounter for blood typing screening for isoimmunization Screening for unspecified disorder of bl ood and blood-forming organs Special screening examination for other specified viral diseases Screening examination for venereal disea se Screening examination for rubella Screening for other hemoglobinopathies Anemia, unspecified anemia type Screening for malignant neoplasm of the cervix documented in this encounter Care Teams Blend Plant Operator Relationship Specialty Start Date End Date Md Lindquist MD PCP - General 08/25/10 07/05/16 [place] [address] documented as of this encounter
--- OUTSIDE RECORDS SUMMARY | 2022-04-25 22:36 | XMS_ITS | Encounter Summary ---
:1985 Author Organization [facility] Address [address] [place] [address] Care Team Providers Name Role Phone Md SOL Lindquist Primary Care Provider Encounter Details Date Type Department Care Team Description 12/17/2014 Imaging [facility] Maternal Bico rnuate uterus affecting Medicine , antepartum, [address] unspecified trimester [place] [id number] Social History Tobacco Use Types Packs/Day Years Used Date Smoking Tobacco: Never Assessed Sex Assigned at Date Recorded Not on file documented as of this encounter Plan of Treatment Not on filedocumented as of this encounter Procedures Procedure Name Priority Date/Time Associated Diagnosis Comme nts [facility] US OB COMPLETE, Routine 12/17/2014 3:07 PM Bicornuate uter us Results for this CVX CDT affecting , procedu re are in antepartum, the results unspecified section. trimester documented in this encounter Results [place] US OB Complete, CVX (12/17/2014 3:07 PM CDT) Anatomical Region Laterality Modality Pelvis Other Specimen (Source) Anatomical Location Collection Method / Collectio n Time Received Time / Laterality Volume Impressions 12/17/2014 3:15 PM CDT : 1) Intrauterine at 18 2/7 week s gestational age 2) No gross anatomic defects detected on the anatomic survey described above. 3) Growth parameters and estimated weight were consistent with an appropriate for gestation age pattern of growth. 4) The amniotic fluid volume appeared no rmal. 5) Normal cervical length 6) No markers for aneuploidy seen Placenta appears to be in the right horn , and fetus in the left horn. ??There is a velamentous cord insertion. ?? Tomy Parmar MD <Electronic Signature> ??12/17/2014 03:1 5pm Narrative 12/17/2014 3:15 PM CDT ? [facility] ?[place], [place] ??[address] ? Phone: ?Offices: [facility] [place], [place] Pat. Name: ESTEFANIA MCKEON ?Location of [place]. No: ?? [id number] ?Study Date: ?? 12/17/2014 ??1:47pm LMP: ? 08/11/2014 ?Referring MD: Wanda Guallpa MD GA by LMP: 18w2d ? Surplus Property Disposal Agent: ??Alexandria Peña RDMS GA by 1st: 18w2d ? , Age: ? 1985, 29 GA by US: ??17w6d ? Pregnancies: ?? 2, Para 0010 Hist/Ind: ??Bicornuate uterus seen on ou tside ? Sonohysterogram ? Severe Iron Deficiency ? Increased AFP 3.46 MOM o n First Trimester Screening ? Complete & Transvaginal Cervix ? GA Selected: ??18w2d (LMP) ? CHERI: ?05/18/2015 MEASUREMENTS & AGE ? GROWTH EVALUATION Measurement ??GA ? Range ? So urce ?? % ?? 18w2d ??Ratios ----- ------- ?? BPD ??2.8 cm 15w0d (66f8f-28p3m) Hadlock ??BPD ??<05 ?? FL/BPD 0.94 HC ??15.1 cm 18w1d (68v7d-68n4u) [place] ??HC ?? 44% ?? FL/AC ??0.20 AC ??13.2 cm 18w5d (12n7o-09l8x) [place] ??AC ?? 59% ?? HC/AC ??1.14 (1.07 - 1.26) FL ?? 2.6 cm 18w0d (92l6y-79i1i) [place] ??FL ?? 44% ?? CI ? 0.54 (0.70 - 0.86)* HL ?? 2.6 cm 18w2d (20k8x-26x9t) Arabella ?? HL ?? 49% CER ??1.9 cm 19w1d (69i8t-02r2a) [place] CER ??69% LVEN 0.5 cm ?LVEN ? GA for sonogram 17w6d (98h7v-12b4c) ? Weight Estimate: based on (BPD,HC,AC,FL,CER) Avg ?Weight: 234 gm (199-268) [place]lock ? : 0lbs, 8oz Cervical Length: ??3.9 cm Heart Rate: 143 bpm DOPPLER Umbilical - Mid Cord ? S/D ??3.40 (3.10 - 8.14) ? RI ?? 0.71 (0.68 - 0.88) ? CLINICAL SUMMARY A Complete Obstetric Ultrasound ??was d one. TYPE OF GESTATION: ?? Holliday PRESENTATION OF FETUS: ?? Breech / Left side of uterus. PLACENTA LOCATION: ? Right lateral ??The placenta appears to be of normal ??texture and is not low lying. ? AMNIOTIC FLUID VOLUME IS: ?Normal. MOTION: ? Appears normal ? SPINE: ?? The spine is normal in both AP and t ransverse views. There is no evidence of splaying of the spine or dorsal disru ption ? of ??the skin or spinal processes. The spine is normally ossifie d and has normal curvature. HEAD: ?? The head appears normal in shape and size. ?? There is no deviation of midline ech oes, cyst formation or evidence of hydrocephalus. ?? The posterior fossa appears grossly normal. ?? The cerebellar size and shape appear s normal today. ?? The nuchal skin fold is 0.3cm. ?? The lateral ventricular atrium measu res 0.5cm. FACE: ?? The nasal bone measures within jonathan l limits. ?? The upper lip appears intact. ??Not all isolated cleft palates may be seen by ultrasound. ?? Position and size of the eyes, nose, and chin appear normal. ?? The profile was seen and appea rs normal. THORAX: ? The lung franco appear normal. ?? Th ere is no pleural effusion seen. HEART: ?? The heart lies on the left side of t he thorax at normal cardiac axis. ?? The cardiac rhythm is regular and th e rate is normal. ?? A normal four chamber view is seen w ith normal valve motion, chamber sizes, and contractility. ?? The right and left outflow tracts ar e seen and appear normal. ABDOMEN: ?? The diaphragm is intact. ?? The stomach lies below the left diap hragm. The bowel echoes are normal for this gestational age. ?? There is no evidence of ascites. UMBILICAL CORD: ?? The umbilical cord inserts into an i ntact abdominal wall. ?? The umbilical cord contains three ve ssels. ?? THE UMBILICAL CORD INSERTS INTO THE MEMBRANES (VELAMENTOUS CORD INSERTION). GENDER: ?? The fetus appears to be female. ?? T he patient is aware of this information KIDNEYS: ?? There is no evidence of pyelectasis. ?? The kidneys are of normal echogenici ty, shape and size. ?? The bladder is filled and is of norm al size and shape. EXTREMITIES: ?? All four extremities are visualized and movement is noted. UTERUS AND ADNEXAE: ?? A uterine septum is seen. The adnexa l areas were surveyed and appear grossly normal CERVIX: ?? The cervix measures ??3.9cm in lengt h by transvaginal scan. ?? There is no evidence of funneling at the internal os. GROWTH: ?? Consistent with normal growth ?? Procedure Note Tomy Parmar MD - 01/19/2016Forma tting of this note might [place] [address] Fax: Offices: [facility] [place]. Name: ESTEFANIA MCKEON Torrey dickey [place] Pat. No: [id number] Study Date: 12/17/2014 1:47pm LMP: 08/11/2014 Referring MD: Wanda Guallpa MD GA by LMP: 18w2d Surplus Property Disposal Agent: Alexandria dowell RDMS GA by 1st: 18w2d , Age: 1 1985, [age] GA by US: 17w6d Pregnancies: 2, Para 0010 Hist/Ind: Bicornuate uterus seen on outs kei Sonohysterogram Severe Iron Deficiency Increased AFP 3.46 MOM on First Trimest er Screening Complete & Transvaginal Cervix GA Selected: 18w2d (LMP) CHERI: 05/18/2015 MEASUREMENTS & AGE GROWTH EV ALUATION Measurement GA Range Source % 18w2d Rati os ----- ------- BPD 2.8 cm 15w0d (33v6a-32e7v) Hadlock B PD <05 FL/BPD 0.94 HC 15.1 cm 18w1d (81m4z-70a3x) [place]lock H C 44% FL/AC 0.20 AC 13.2 cm 18w5d (89v3g-55q3s) [place] A C 59% HC/AC 1.14 (1.07 - 1.26) FL 2.6 cm 18w0d (10s9e-84n0x) [place]lock FL 44% CI 0.54 (0.70 - 0.86)* HL 2.6 cm 18w2d (87l9r-61r3t) Arabella HL 49% CER 1.9 cm 19w1d (46g3g-90c3p) Oriana CER 69% LVEN 0.5 cm LVEN GA for sonogram 17w6d (33g0k-75b2q) Feta l Weight Estimate: based on (BPD,HC,AC,FL,CER) Avg Weight: 234 gm (199-268) Hadlock : 0lbs, 8oz Cervical Length: 3.9 cm Heart Rate: 143 bpm DOPPLER Umbilical - Mid Cord S/D 3.40 (3.10 - 8.14) RI 0.71 (0.68 - 0.88) CLINICAL SUMMARY A Complete Obstetric Ultrasound was lu watts. TYPE OF GESTATION: Holliday PRESENTATION OF FETUS: Breech / Left side of uterus. PLACENTA LOCATION: Right lateral The placenta appears to b e of normal texture and is not low lying. AMNIOTIC FLUID VOLUME IS: Normal. MOTION: Appears normal SPINE: The spine is normal in both AP and ramos sverse views. There is no evidence of splaying of the spine or dorsal disru ption of the skin or spinal processes. The spine is normally ossifie d and has normal curvature. HEAD: The head appears normal in shape and si ze. There is no deviation of midline echoes , cyst formation or evidence of hydrocephalus. The posterior fossa appears grossly nor mal. The cerebellar size and shape appears n ormal today. The nuchal skin fold is 0.3cm. The lateral ventricular atrium measures 0.5cm. FACE: The nasal bone measures within normal l imits. The upper lip appears intact. Not all i solated cleft palates may be seen by ultrasound. Position and size of the eyes, nose, an d chin appear normal. The profile was seen and appears normal. THORAX: The lung franco appear normal. There is no pleural effusion seen. HEART: The heart lies on the left side of the thorax at normal cardiac axis. The cardiac rhythm is regular and the r ate is normal. A normal four chamber view is seen with normal valve motion, chamber sizes, and contractility. The right and left outflow tracts are s een and appear normal. ABDOMEN: The diaphragm is intact. The stomach lies below the left diaphra gm. The bowel echoes are normal for this gestational age. There is no evidence of ascites. UMBILICAL CORD: The umbilical cord inserts into an inta ct abdominal wall. The umbilical cord contains three vesse ls. THE UMBILICAL CORD INSERTS INTO THE MEM BRANES (VELAMENTOUS CORD INSERTION). GENDER: The fetus appears to be female. [facility] ient is aware of this information KIDNEYS: There is no evidence of pyelectasis. The kidneys are of normal echogenicity, shape and size. The bladder is filled and is of normal size and shape. EXTREMITIES: All four extremities are visualized and movement is noted. UTERUS AND ADNEXAE: A uterine septum is seen. The adnexal a reas were surveyed and appear grossly normal CERVIX: The cervix measures 3.9cm in length by transvaginal scan. There is no evidence of funneling at th e internal os. GROWTH: Consistent with normal growth IMPRESSION : 1) Intrauterine at 18 2/7 week s gestational age 2) No gross anatomic defects detected on the anatomic survey described above. 3) Growth parameters and estimated weight were consistent with an appropriate for gestation age pattern of growth. 4) The amniotic fluid volume appeared no rmal. 5) Normal cervical length 6) No markers for aneuploidy seen Placenta appears to be in the right horn , and fetus in the left horn. 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 Tomy Parmar MD <Electronic Signature> 12/17/2014 03:15p m Francisca Evans MD RAD [place] US documented in this encounter Visit Diagnoses Diagnosis Bicornuate uterus affecting , a ntepartum, unspecified trimester documented in this encounter Care Teams Janitor Caretaker Relationship Specialty Start Date End Date Md Lindquist MD PCP - General 08/25/10 07/05/16 [place] [address] documented as of this encounter
--- OUTSIDE RECORDS SUMMARY | 2022-04-25 22:36 | XMS_ITS | Encounter Summary ---
:1985 Author Organization [email or web address] Address [address] [place] [address] Care Team Providers Name Role Phone Md SOL Lindquist Primary Care Provider Reason for Visit Reason Comments Routine Visit Encounter Details Date Type Department Care Team Description 12/13/2014 Routine Ute 1515 Wanda Guallpa Routi ne Obstetrics/Gynecolog MD Visit y 1515 [facility] [address] [place] [address] [place] [phone] Social History Tobacco Use Types Packs/Day Years Used Date Smoking Tobacco: Never Assessed Sex Assigned at Date Recorded Not on file documented as of this encounter Last Filed Vital Signs Vital Sign Reading Time Taken Comments Blood Pressure 80/60 12/13/2014 10:26 AM CDT Pulse - - Temperature - - Respiratory Rate - - Oxygen Saturation - - Inhaled Oxygen Concentration - - Weight 64.6 kg (142 lb 6.4 oz) 12/13/2014 10:26 AM CDT Height - - Body Mass Index 21.65 11/18/2014 3:24 PM CDT documented in this encounter Progress Notes Wanda Guallpa MD - 12/13/2014 10:59 AM CDT visit Patient reports no complaints. Due to bicornuate uterus documented at her first trimester screen sheis having cervical length checked every 2 weeks in perinatology. She has normal cervical length and no funneling. She has her Level II anatomy screen next week. I was not finding FHT by Dopt[place]. Bedside ultrasound shows baby is in transverse lie with spine down. Normal cardiac activity seen. Follow-up in 4 weeks documented in this encounter Plan of Treatment Not on filedocumented as of this encounter Visit Diagnoses Diagnosis History of UTI - Primary Personal history of urinary (tract) infe ction documented in this encounter Care Teams Information Technology Analyst Relationship Specialty Start Date End Date Md Lindquist MD PCP - General 08/25/10 07/05/16 [place] [address] documented as of this encounter
--- OUTSIDE RECORDS SUMMARY | 2022-04-25 22:36 | XMS_ITS | Encounter Summary ---
:1985 Author Organization [facility] Address [address] [place] [address] Care Team Providers Name Role Phone Md SOL Lindquist Primary Care Provider Encounter Details Date Type Department Care Team Description 09/24/2010 PN Conversion Only [place] 1515 Heidi Guallpa MD Obstetrics/Gynecolog y 1515 [facility] 1515 [facility] . [address] [address] [place] [address] [place] [phone] (Wo rk) Social History Tobacco Use Types Packs/Day Years Used Date Smoking Tobacco: Never Assessed Sex Assigned at Date Recorded Not on file documented as of this encounter Plan of Treatment Not on filedocumented as of this encounter Visit Diagnoses Not on filedocumented in this encounter Care Teams Political Consultant Relationship Specialty Start Date End Date Md Lindquist MD PCP - General 08/25/10 07/05/16 [place] [address] documented as of this encounter
--- OUTSIDE RECORDS SUMMARY | 2022-04-25 22:36 | XMS_ITS | Encounter Summary ---
:1985 Author Organization [employer] [facility] [employer] Address [address] [place] [address] Care Team Providers Name Role Phone Md SOL Lindquist Primary Care Provider Encounter Details Date Type Department Care Team Description 12/13/2014 Notes/Orders [place] [facility] Wanda Guallpa, Personal history of [address] . urinary (tract) [place] Lin [phone] [place] infection (Primary Dx) [phone] [place] [address] [place] [phone] Social History Tobacco Use Types Packs/Day Years Used Date Smoking Tobacco: Never Assessed Sex Assigned at Date Recorded Not on file documented as of this encounter Plan of Treatment Not on filedocumented as of this encounter Visit Diagnoses Diagnosis Personal history of urinary (tract) infe ction - Primary documented in this encounter Care Teams Mixed Signal Design Engineer Relationship Specialty Start Date End Date Md Lindquist MD PCP - General 08/25/10 07/05/16 [place], [place] [id number] documented as of this encounter
--- OUTSIDE RECORDS SUMMARY | 2022-04-25 22:36 | XMS_ITS | Encounter Summary ---
:1985 Author Organization [facility] Address [address] [place] [address] Care Team Providers Name Role Phone Md SOL Lindquist Primary Care Provider Reason for Visit Reason Comments CONSULT Encounter Details Date Type Department Care Team Description 11/05/2014 Office Visit [place] [facility]aternal Francisca Evans MD Bicornuate uterus affecting , a ntepartum, unspecified trimester (Primary Dx); Medicine [address] Vitamin D deficiency; [address] [address] [place] [address] Iron deficiency anemia; [address] [place], [place] Kidney stone complicating pr egnancy, unspecified trimester [place] [phone] (Wo rk) Social History Tobacco Use Types Packs/Day Years Used Date Smoking Tobacco: Never Assessed Sex Assigned at Date Recorded Not on file documented as of this encounter Last Filed Vital Signs Vital Sign Reading Time Taken Comments Blood Pressure 108/64 11/05/2014 9:55 AM CDT Pulse - - Temperature - - Respiratory Rate - - Oxygen Saturation - - Inhaled Oxygen Concentration - - Weight 64.9 kg (143 lb) 11/05/2014 9:55 AM CDT Height - - Body Mass Index 21.74 10/18/2014 11:09 AM CDT documented in this encounter Progress Notes Francisca Evans MD - 11/05/2014 1:18 PM CDT MATERNAL MEDICINE () CONSULTATION HPI Estefania Mckeon is a 29 y.o. year old now at 12w2d who is seen today for consultation at the request of Dr. Wanda Guallpa due to known bicornuate uterus and history of iron deficiency anemia. Iron deficiency anemia first diagnosed in 2006 when she presented with extreme fatigue and was foundto have a hgb of 4.7%. She was cared for in the [facility] (records from 2006 to 2013 are underCare Everywhere). She has required multiple blood transfusions (13 or 14) and IV iron. She recalls being told she was missing a protein that had to do with iron. Colonoscopy was apparently done and was normal. There was no evidence of unexplained blood loss. She was seen by Dr. Khushbu Sandy, hematology in a [facility] in 2006 (see note dated 06/09/07 under Care Everywhere). Hemoglobin electrophoresis was done at that time and again recently and was normal. Estefania had an ultrasound in early in 2011 due to vaginal bleeding and was found to have a septate or bicornuate uterus. Following loss an a sonohysterogram was done on 09/28/11 which showed a bicornuate uterus confirmed with 3D imaging. OB HISTORY: T0 TAB0 SAB1 E0 M0 L0 2 Current 1 SAB 07/22/11 PAST MEDICAL HISTORY: Past Medical History Diagnosis Date ??? Pap smear abnormality of cervix ??? Blood transfusion, without reported diagnosis ??? Varicella ??? Bicornuate uterus ??? Kidney stones 10 stones in past, current stone right kidney Kidney stones first occurred in 2003 requiring cystoscopy. 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 Patient reports having had multiple stones since that time. She states she currently has a large stone in the right kidney which is too large to pass and is asymptomatic at this time. Renal ultrasound in 2008 confirmed duplicated left renal collecting system, 1.2cm stone in right renal pelvis with mild dilatation. Urology consultation with Dr. Valdo Villar 07/11/09 ([facility]Care Everywhere). Medications: vitamins Adverse Drug Reactions: Allergies Allergen Reactions ??? Benadryl [Diphenhydramine Hcl] Shortness Of Breath and Palpitations ??? Amoxicillin LW Reaction: HIVES Surgeries: Past Surgical History Procedure Laterality Date ??? [place] tooth extraction ??? Hx appendectomy 1998 ??? Cystoscopy 2004 Kidney stones FAMILY HISTORY: family history includes Cancer, Breast in her paternal grandmother; Crohn's Disease in her mother; Diabetes in her father; Heart Disease in her maternal grandfather; High Cholesterol in her father; Spont Abortions in her mother. SOCIAL HISTORY: Social History ??? Marital Status: Single Spouse Name: N/A Number of Children: N/A ??? 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 Smoking status: [...] ??? Weight Concern No Social History Narrative OBJECTIVE: BP 108/64 Wt 143 lb (64.864 kg) LMP 08/11/2014 (Exact Date) thin young woman LABORATORY STUDIES: NOB labs (10/18/14) UA positive WBCs, RBCs, UC negative HIV, Hep B, Hep C, RPR all negative rubella NOT IMMUNE vitamin D level 8 hgb 13.1 pap negative blood type O Rh positive, negative antibody screen ULTRASOUND: sep[place]veda pregnanxy CRL 12w2d. normal NT. partial bicornuate uterus noted, in right horn See Chart Review > Imaging tab for complete ultrasound report. ASSESSMENT: [place] at 12w2d gestation ??? Bicornuate uterus affecting , antepartum ??? Vitamin D deficiency (ACG) ??? Recurrent kidney stones ??? Nonspecific abnormal finding ??? History of blood transfusion PLAN: I spent a total of 30 minutes with Estefania and her partner that accompanies her today. 1. partial bicornuate uterus - this is confirmed on today's ultrasound. This uterine malformation increases the risk of delivery from the population incidence of 11-12% to a risk of 20%. 2. iron deficiency anemia - recent hgb is now normal. Will check ferritin and ask one of our hematologists to review this patient's history and diagnosis. 3. chronic renal stones - the presence of chronic renal stones increases this patient's risk of pyelonephritis during . Labs ordered today include: serum ferritin, calcium, phosphorus. Hematology consultation will be arranged for monitoring and management of chronic iron deficiency anemia in . Urine cultures should be done Q trimester as this patient is at high risk of pyelonephritis with chronic kidney stones. I further discussed the association of uterine malformations and increased risk of delivery.Serial transvaginal ultrasound measurements of cervical length will be scheduled Q 2 weeks through 24 weeks gestation. If the cervical length is <2.5cm, progesterone supplementation would be indicated. If the cervix shortens to <1.5cm with visible membranes prior to 23 weeks gestation, cervical cerclage may be considered. TT: [address]: 25 minutes Francisca Evans MD 11:23 AM 11/05/2014 documented in this encounter Plan of Treatment Not on filedocumented as of this encounter Visit Diagnoses Diagnosis Bicornuate uterus affecting , a ntepartum, unspecified trimester - Primary Vitamin D deficiency (HRC) Unspecified vitamin D deficiency Iron deficiency anemia Iron deficiency anemia, unspecified Kidney stone complicating , uns pecified trimester documented in this encounter Care Teams Agile Qa Tester Relationship Specialty Start Date End Date Md Lindquist MD PCP - General 08/25/10 07/05/16 [place] [address] documented as of this encounter
--- OUTSIDE RECORDS SUMMARY | 2022-04-25 22:37 | XMS_ITS | Clinical Summary ---
:1985 Author Organization [facility] [facility] [place] [address] Care Team Providers Name Role Phone Janis Cuellar MD Unavailable Wanda Guallpa MD Primary Care Provider [phone] Allergies Active Allergy Reactions Severity Noted Date Comments Amoxicillin Hives 01/23/2006 Diphenhydramine Anaphylaxis 06/24/2014 Nitrofurantoin Hives High 01/16/2019 Medications Medication Sig Dispensed Refills Start Date End Date Status vit Take by mouth. 0 Ac tive no.109-iron-FA 40 mg iron- 1 mg chew acetaminophen Take 1-2 tablets by 100 tablet 0 05/10/2015 Active (TYLENOL) 325 mg mouth every 4 hours tabletIndications: if needed for Pain. (normal Max acetaminophen spontaneous vaginal dose: 4000mg in 24 delivery) hrs. Breast Pump - For home use. 1 Device 0 05/10/2015 A ctive PurchaseIndications: Gestation age at care and delivery: 40 weeks. examination of Reason for need: lactating mother Lactating mother. Length of need: 1 year cephalexin (KEFLEX Take 1 capsule by 0 01/15/2019 Active ORAL)Indications: mouth 4 times urinary tract daily. Indications: infection urinary tract infection ibuprofen (MOTRIN Take 1-3 tablets by 100 tablet 0 01/29/2019 Active IB) 200 mg mouth every 6 hours tabletIndications: if needed for Other (spontaneous (Specify) (for vaginal delivery) uterine cramping). Take with food. docusate (COLACE) Take 1 capsule by 100 capsule 0 01/29/2019 Active 100 mg mouth once daily. capsuleIndications: (spontaneous vaginal delivery) oxyCODONE-acetaminop Take 1 Tablet by 12 Tablet 0 07/26/2020 Active hen, 5-325 mg, mouth every 6 hours (PERCOCET) 5-325 mg if needed for Pain per Max acetaminophen tabletIndications: dose: 4000mg in 24 Flank pain hrs. ondansetron (ZOFRAN Place 2 Tablets on 10 Tablet 0 07/26/2020 Active ODT) 4 mg the tongue every 6 disintegrating hours if needed for tabletIndications: Nausea/Vomiting. Flank pain oxyCODONE-acetaminop Take 1 Tablet by 12 Tablet 0 12/30/2020 Active hen (PERCOCET) 5-325 mouth every 6 hours mg per if needed for Pain. tabletIndications: Max acetaminophen Flank pain, Kidney dose: 4000mg in 24 stones hrs. 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, antepartum 05/08/2015 Iron deficiency anemia 05/07/2015 Resolved Problems Problem Noted Date Resolved Date Gestational hypertension 05/08/2015 05/08/2015 (normal spontaneous vaginal delivery) 05/08/2015 01/28/2019 Encounter for supervision of normal first in third 05/07/2015 05/08/2015 trimester Bicornuate uterus affecting in third trimester, 05/08/2015 antepartum PROM (premature rupture of membranes) 05/07/2015 Iron deficiency anemia, unspecified 10/01/201012/2018 Immunizations Name Administration Dates Next Due Influenza, IIV3 (Age >=3 years) 03/07/2015, 04/03/2010 MMR 05/09/2015 Tdap 03/21/2015 Family History Medical History Relation Name Comments Heart Disease Father Hyperlipidemia Father Crohn's disease Mother Heart Disease Mother Stroke Mother Hypertension Other Relation Name Status Comments Father Mother Other Social History Tobacco Use Types Packs/Day Years Used Date Never Smoker Smokeless Tobacco: Never Used Alcohol Use Standard Drinks/Week Comments No 0 (1 standard drink = 0.6 oz pure alcoho l) social Alcohol Habits Answer Date Recorded How often do you have a drink containing alcohol? Not asked How many drinks containing alcohol do you have on a typical Not asked day when you are drinking? How often do you have six or more drinks on one occasion? No t asked Comment: social 12/16/2011 Sex Assigned at Date Recorded Not on file Obstetrics History Para Term AB IAB SAB Ectopic Multiple Living Live Births 4 1 1 2 2 1 1 Date Outcome GA Total Labor/2nd/3rd Weight Sex Delivery Anes PTL Sujata A 1 A5 Name Clin Labor SAB SPONTANEO US 07/21 SAB SPONTANEO /05/08 Term 38w 3.66 kg F Vag Epidu N Vilma Lucrecia /2014 4d (8 lb 1 ral ng D ruck oz) man Complications: None Delivery Location: [facility] Comments: PPROM, HTN Last Filed Vital Signs Vital Sign Reading Time Taken Comments Blood Pressure 104/63 12/30/2020 10:08 AM CDT Pulse 58 12/30/2020 10:30 AM CDT Temperature 36.6 ??C (97.9 ??F) 12/30/2020 8:30 AM CDT Respiratory Rate 16 12/30/2020 8:30 AM CDT Oxygen Saturation 98% 12/30/2020 10:30 AM CDT Inhaled Oxygen Concentration - - Weight 74.8 kg (165 lb) 12/30/2020 8:30 AM CDT Height 170.2 cm (5' 7) 12/30/2020 8:30 AM CDT Body Mass Index 25.84 12/30/2020 8:30 AM CDT Plan of Treatment Not on file Medical Devices Implanted Type Area Drywall Application Supervisor Device Shelf Model / Identifier Expiration Serial / Date Lot Stent Contour [id number] Prcflx Microvasive - [id number] Left: [id number] / Implanted: Qty: 1 on 01/24/2006 at [facility] / [id number] Results Not on filefrom Last 3 Months Insurance Payer Benefit Plan / Subscriber ID Effective Dates Phone Addre ss Type Group [employer] [id number] 2019-Presen [id number] [place] [address] Advance Directives Latest Code Status on File Code Status Date Activated Date Inactivated Comments Full Code 01/28/2019 1:08 AM 01/29/2019 1:29 PM Full Code 05/08/2015 12:05 PM 05/10/2015 5:22 PM Full Code 05/07/2015 4:33 PM 05/08/2015 12:05 PM Full Code 05/07/2015 2:58 PM 05/07/2015 4:33 PM Full Code 05/06/2015 3:54 PM 05/06/2015 11:01 PM Care Teams Science Education Professor Relationship Specialty Start Date End Date Wanda Guallpa MD PCP - General Obstetrics and Gynecology 05/07/15 [id number] [id number] Janis Cuellar MD Internal Medicine 06/24/14
[2022-04-25] MEDS: cefTRIAXone 1 GM in 0.9 % SODIUM CHLORIDE Mini-bag 100 ML IVPB (23:20)
[2022-04-26] VITALS (16 sets, daily range): BP systolic 83–123; BP diastolic 55–68; PULSE 99–121; RESP 16–18; TEMP 37.6–37.8; O2SAT 96–98
[2022-04-26] MEDS: POTASSIUM CHLORIDE 10 MEQ CAPSULE ER 40 MEQ PO (00:43)
[2022-04-26] MEDS: OXYCODONE 5 MG TABLET 10 MG PO (00:43)
[2022-04-26] MEDS: ACETAMINOPHEN 500 MG TABLET 1000 MG PO (00:43)
[2022-04-26] MEDS: LACTATED RINGERS 1000 ML 1,000 ML IV (00:51)
--- NOTE | 2022-04-26 01:11 | ED.NURSE ---
report from Odilia RODRIGUEZ, pt resting in bed, SO at bedside, pt states she denies any needs at this time, states slight improvement in feeling better.
== END 2022-04-26 01:59 | disposition home or self-care (01) ==
PROVIDERS: Emergency Provider Family Medicine
DX: N12 Tubulo-interstitial nephritis, not specified as acute or chronic (principal); Z87.442 Personal history of urinary calculi
CPT/HCPCS: 36415; 74176; 80053; 81001; 83605; 84145; 85025; 86140; 87040; 87086; 87186; 87502; 87634; 87635; 96361; 96365; 96375; 99284; A9270; J0696; J1885; J7030; J7120